=== PATIENT | male | born 1960 | race Caucasian/White ===

== ENCOUNTER 2018-02-21 20:34 | Emergency (ER) | payer OTHER ==
--- OUTSIDE RECORDS SUMMARY | 2018-02-21 20:37 | XMS REPORT ---
:1960 Author Organization e[employer]Works Care Team Providers Name Role Phone Belinda Dunham Provider Role Unavailable Allergies No Known Allergies Problems Problem Type Condition Code Onset Dates Condition Status Problem Hyperglycemia R73.9 Active Problem Crohn''s disease without K50.90 Active complication, unspecified gastrointestinal tract location Problem Encounter for counseling Z71.9 Active Problem Cervical spondylosis without M47.812 Active myelopathy Assessment Cough R05 Active Problem Post-traumatic stress disorder F43.10 Active Problem Chronic fatigue R53.82 Active Problem Lumbar sprain, initial encounter S33.5XXA Active Problem 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 Problem Acute tonsillitis, unspecified J03.90 Active etiology Problem Asymptomatic microscopic hematuria R31.21 Active Problem 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
--- OUTSIDE RECORDS SUMMARY | 2018-02-21 20:37 | XMS REPORT ---
:1960 Author Organization [employer] Care Team Providers Name Role Phone Belinda Dunham Provider Role Unavailable Allergies, Adverse Reactions, Alerts Substance Reaction Event Type Phenergan hives Drug Allergy Levaquin stops breathing Drug Allergy Keflex rash Drug Allergy Bactrim DS rash Drug Allergy Problems Problem Type Condition Code Onset Dates Condition Status Problem Hyperglycemia R73.9 Active Problem Crohn''s disease without K50.90 Active complication, unspecified gastrointestinal tract location Problem Encounter for counseling Z71.9 Active Problem Cervical spondylosis without M47.812 Active myelopathy Assessment Wheezing R06.2 Active Problem Post-traumatic stress disorder F43.10 Active Assessment Bronchitis J40 Active Problem Chronic fatigue R53.82 Active Problem [...] Problem Generalized anxiety disorder F41.1 Active Medications Medication Code Code Instructions Start End Date Status Dosage System Date Bromfed DM [facility] 02011964453 30-2-10 MG/5ML September Active 10 ml as Orally every 6 2017 needed hrs ProAir [facility] 01234149799 108 (90 Base) Apr 28, Active 2 puffs as RespiClick MCG/ACT 2014 needed Inhalation q 4-6 h prn Ventolin HFA [facility] 91537485285 108 (90 Base) September Active 2 puffs MCG/ACT 2017 Inhalation TID X 5 days Aspirin 81 ND 99791661243 81 MG Orally September Active 1 tablet Once a day 2016 Protonix ND 66994807004 40 MG Orally Active 1 tablet Once a day Bluejacket [facility] 27048163094 10-325 MG Apr 29, Active 1 tablet as Orally TID-prn 2013 needed pain Albuterol [facility] 50610130641 108 (90 Base) Apr 29, Active 1 puff Sulfate HFA MCG/ACT 2014 Inhalation every 6 hrs Losartan ND 23533590343 50 MG Orally August Active 1 tablet Potassium Once a day 2017 Albuterol [facility] 14019031882 (2.5 MG/3ML) September Active 3 ml as Sulfate 0.083% 2017 needed Inhalation Three times a day Clonazepam [facility] 11411302431 2 MG Orally BID Apr 28, Active 1 tablet 2014 Creon [facility] 98888103986 30973-71171 Active 1 capsule UNIT Orally TID Azithromycin ND 34898694483 250 MG Orally September Active 2 tablets Once a day 2017 on the first day, then 1 tablet daily for 4 days Nebulizer [facility] 76380210577 - September Active as directed 2017 Results No Known Results Summary Purpose eClinicalWorks Submission
--- OUTSIDE RECORDS SUMMARY | 2018-02-21 20:37 | XMS REPORT ---
:1960 Author Organization [employer]Works Care Team Providers Name Role Phone Belinda Dunahm Provider Role Unavailable Allergies, Adverse Reactions, Alerts Substance Reaction Event Type Phenergan hives Drug Allergy Levaquin stops breathing Drug Allergy Keflex rash Drug Allergy Bactrim DS rash Drug Allergy Problems Problem Type Condition Code Onset Dates Condition Status Problem Essential (primary) hypertension I10 Active Assessment Chronic fatigue R53.82 Active Problem Generalized anxiety disorder F41.1 Active Assessment Essential (primary) hypertension I10 Active Problem Hyperglycemia R73.9 Active Problem Crohn''s disease without K50.90 Active complication, unspecified gastrointestinal tract location Problem Encounter for counseling Z71.9 Active Problem Cervical spondylosis without M47.812 Active myelopathy Problem Post-traumatic stress disorder F43.10 Active Assessment Chronic pain syndrome G89.4 Active Assessment Crohn''s disease without K50.90 Active complication, unspecified gastrointestinal tract location Problem Chronic fatigue R53.82 Active Assessment Post-traumatic stress disorder F43.10 Active Problem Lumbar sprain, initial encounter S33.5XXA [...] Acute upper respiratory infection J06.9 Active Problem Abnormal blood sugar R73.09 Active Medications Medication Code Code Instructions Start End Date Status Dosage System Date Losartan ND 24362892916 50 MG Orally August Active 1 tablet Potassium Once a day 2017 ProAir [facility] 16305025512 108 (90 Base) Apr 28, Active 2 puffs as RespiClick MCG/ACT 2014 needed Inhalation q 4-6 h prn MetFORMIN HCl [facility] 16036114266 500 MG Orally Feb 24August Inactive 1 tablet ER Once a day 2015 with evening meal Protonix [facility] 29550207035 40 MG Orally Active 1 tablet Once a day Clonazepam [facility] 47043138683 2 MG Orally BID Apr 28, Active 1 tablet 2014 [place] 2001 78447905613 1.2 GM Orally Apr 28August Inactive 4 tablets Once a day x 8 2014 weeks Aspirin 81 [facility] 88044517332 81 MG Orally September Active 1 tablet Once a day 2016 Albuterol [facility] 92987100510 108 (90 Base) Apr 29, Active 1 puff Sulfate HFA MCG/ACT 2014 Inhalation every 6 hrs [place] [facility] 80189917417 10-325 MG Apr 29, Active 1 tablet Orally TID-prn 2013 as needed pain Creon [facility] 06550436397 00206-34501 Active 1 capsule UNIT Orally TID Coreg [facility] 88446117974 25 MG Orally August Inactive 1 tablet BID 2017 Results No Known Results Summary Purpose eClinicalWorks Submission
--- OUTSIDE RECORDS SUMMARY | 2018-02-21 20:38 | XMS REPORT ---
:1960 [facility] Providers Name Role Phone Belinda Dunham Provider Role Unavailable Allergies, Adverse Reactions, Alerts Substance Reaction Event Type Phenergan hives Drug Allergy Levaquin stops breathing Drug Allergy Keflex rash Drug Allergy Bactrim DS rash Drug Allergy Problems Problem Type Condition Code Onset Dates Condition Status Assessment Crohn''s disease of both small and K50.80 Active large intestine without complication Problem Essential (primary) hypertension I10 Active Assessment Panic disorder without agoraphobia F41.0 Active Problem Generalized anxiety disorder F41.1 Active Assessment Generalized anxiety disorder F41.1 Active Problem Hyperglycemia R73.9 Active Problem Crohn''s disease without K50.90 Active complication, unspecified gastrointestinal tract location Problem Encounter for counseling Z71.9 Active Problem Cervical spondylosis without M47.812 Active myelopathy Problem Post-traumatic stress disorder F43.10 Active Assessment Chronic pain syndrome G89.4 Active Problem Chronic fatigue R53.82 Active Assessment 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 Problem Lumbar sprain, initial encounter S33.5XXA [...] Medications Medication Code Code Instructions Start End Status Dosage System Date Date Albuterol [facility] 34002201729 108 (90 Base) Apr 29, Active 1 puff Sulfate HFA MCG/ACT 2014 Inhalation every 6 hrs Clonazepam [facility] 93711488795 2 MG Orally BID Apr 28, Active 1 tablet 2015 Ventolin HFA [facility] 69041071788 108 (90 Base) September Active 2 puffs MCG/ACT 2017 Inhalation TID X 5 days [place] [facility] 45254415240 7.5-325 MG Apr 29, Active 1 tablet as Orally TID-prn 2013 needed pain ProAir [facility] 77814009999 108 (90 Base) Apr 28, Active 2 puffs as RespiClick MCG/ACT 2014 needed Inhalation q 4-6 h prn Creon [facility] 04883130487 13752-82103 UNIT Jul 17, Active take by Orally 2018 mouth 1 with each meal capsule 3 times a day as directed Carvedilol [facility] 32962209285 25 MG Orally BID Active take 1 tablet by mouth twice a day Protonix [facility] 45192381245 40 MG Orally Active 1 tablet Once a day Aspirin 81 [facility] 03179416436 81 MG Orally September Active 1 tablet Once a day 2016 Results No Known Results Summary Purpose eClinicalWorks Submission
--- OUTSIDE RECORDS SUMMARY | 2018-02-21 20:38 | XMS REPORT ---
[...] myelopathy Problem Post-traumatic stress disorder F43.10 Active Problem [...]
[2018-02-21] MEDS ORDERED: HYDROCODONE/APAP 7.5/325 MG TAB ONE (21:50)
[2018-02-21 21:55] LABS: Urine Blood 2+ (NEG); Urine Glucose NEGATIVE (NEG); Urine Protein NEGATIVE (NEG); Urine Specific Gravity <1.005 (1.005-1.030); Urine pH 5.5 (5.0-7.0)
[2018-02-21] MEDS ORDERED: AZITHROMYCIN 250 MG TAB ONE (21:59)
[2018-02-21] MEDS ORDERED: NA CHLORIDE 0.9% 500 ML ONE (22:18)
[2018-02-21 22:28] LABS: Urine Bacteria <20 /HPF (NONE SEEN); Urine Culture Reflex Order NOT NEEDED; Urine RBC NONE SEEN /HPF (NONE SEEN)
[2018-02-21 22:32] LABS: Absolute Lymphocytes (CBC) 1.3 K/uL (0.7-4.9); Absolute Monocytes 1.2 K/uL (0.1-1.3); Absolute Neutrophil 9.8 K/uL (1.8-8.0); Basophils % 0.3 % (0-1.3); Eosinophils % 0.3 % (0-4.4); Lymphocytes % 10.4 % (15.3-44.8); MCH 30.9 pg (27.0-35.0); MCV 90.1 fL (80-100); MPV 9.3 fL (7.6-11.3); Monocytes % 9.9 % (3.3-12.3); RBC Red Blood Cell Count 4.88 M/uL (4.33-5.43)
[2018-02-21 22:49] LABS: Albumin 3.8 g/dL (3.4-5.0); Bilirubin Total 1.1 mg/dL (0.2-1.0); Protein, Total 7.2 g/dL (6.4-8.2)
--- NOTE | 2018-02-21 23:24 | ER ---
Nurse's Notes [facility] Name: Alfredo Escobar Age: 57 yrs Sex: Male : 1960 Arrival Date: 02/21/2018 Time: 20:36 Bed 30 Private MD: Kayode Sam Diagnosis: Acute tonsillitis-strep positive;Fever, unspecified;Low back pain;Contusion of back wall of thorax Presentation: 02/21 20:45 Presenting complaint: Patient states: Body aches, fatigue, malaise, headaches and aj increased urination since yesterday. Patient also fell and hit left flank on leg of wheelchair when he attempted to place himself in a wheelchair in the lobby without asking for assistance. Patient drove himself and minor child to ER. Transition of care: patient was not received from another setting of care. Onset of symptoms was February 20, 2018. Risk Assessment: Do you want to hurt yourself or someone else? Patient reports no desire to harm self or others. Initial Sepsis Screen: Does the patient meet any 2 criteria? No. Patient's initial sepsis screen is negative. Does the patient have a suspected source of infection? No. Patient's initial sepsis screen is negative. Note Charge nurse notified of patient fall. Abrasions noted to left flank. Care prior to arrival: None. 20:45 Method Of Arrival: Wheelchair aj 20:45 Acuity: BUCKY 3 aj Triage Assessment: 20:50 Headache History: The patient has had previous headaches. General: Appears in no aj apparent distress. comfortable, Behavior is calm, cooperative, appropriate for age. Pain: Complains of pain in entire body. Neuro: Level of Consciousness is awake, alert, obeys commands, Oriented to person, place, time, situation, Appropriate for age. Respiratory: Airway is patent Respiratory effort is even, unlabored, Respiratory pattern is regular, symmetrical. GI: Abdomen is non-distended, obese, Reports nausea. Derm: Skin is intact, is healthy with good turgor, Skin is pink, warm \T\ dry. normal. Injury Description: Abrasion sustained to posterior aspect of left lateral abdomen. 23:48 Pain: Also complains of no other associated symptoms. mg2 Historical: - Allergies: 20:50 Iodine; aj 20:50 Keflex; aj 20:50 Latex, Natural Rubber; aj 20:50 Levaquin; aj 20:50 Toradol; aj 20:50 Vancomycin; aj 20:50 Bactrim; aj 20:50 promethazine HCl; aj - PMHx: 20:50 Crohn's; Pancreatitis; aj - Immunization history:: Adult Immunizations up to date. - Social history:: Smoking status: Patient/guardian denies using tobacco. - Ebola Screening: : Patient negative for fever greater than or equal to 101.5 degrees Fahrenheit, and additional compatible Ebola Virus Disease symptoms Patient denies exposure to infectious person Patient denies travel to an Ebola-affected area in the 21 days before illness onset No symptoms or risks identified at this time. Screenin:36 Abuse screen: Denies threats or abuse. Denies injuries from another. Nutritional mg2 screening: No deficits noted. Tuberculosis screening: No symptoms or risk factors identified. Fall Risk Fall in past 12 months (25 points). IV access (20 points). Gait- Weak (10 pts.). Assessment: 21:36 General: Appears in no apparent distress. comfortable, Behavior is calm, cooperative. mg2 Pain: Complains of pain in whole body Pain does not radiate. Pain currently is 5 out of 10 on a pain scale. Quality of pain is described as aching, crampy, Pain began gradually, Is intermittent. Neuro: Level of Consciousness is awake, alert, obeys commands, Oriented to person, place, time, situation. Cardiovascular: Capillary refill < 3 seconds Patient's skin is warm and dry. Respiratory: Airway is patent Respiratory effort is even, unlabored, Respiratory pattern is regular, symmetrical. GI: Abdomen is non-distended. : Reports urinary frequency, since today. EENT: No signs and/or symptoms were reported regarding the EENT system. Derm: Skin is intact, Skin is pink, warm \T\ dry. normal. Musculoskeletal: Circulation, motion, and sensation intact. 22:00 Reassessment: Patient appears in no apparent distress at this time. Patient and/or mg2 family updated on plan of care and expected duration. Pain level reassessed. Patient is alert, oriented x 3, equal unlabored respirations, skin warm/dry/pink. 23:04 Reassessment: Patient appears in no apparent distress at this time. Patient and/or mg2 family updated on plan of care and expected duration. Pain level reassessed. Patient is alert, oriented x 3, equal unlabored respirations, skin warm/dry/pink. Vital Signs: 20:50 BP 130 / 79; Pulse 88; Resp 16; Temp 99.7; Pulse Ox 97% on R/A; Weight 77.11 kg; Height aj 5 ft. 10 in. (177.80 cm); 22:00 BP 123 / 81; Pulse 70; Resp 18; Pulse Ox 100% on R/A; Pain 5/10; mg2 23:04 BP 137 / 83; Pulse 81; Resp 18; Pulse Ox 100% on R/A; Pain 0/10; mg2 20:50 Body Mass Index 24.39 (77.11 kg, 177.80 cm) ED Course: 20:36 Patient arrived in ED. am2 20:36 Kayode Sam DO is Private Physician. am2 20:41 Kirit Crespo, MARY is Primary Nurse. mg2 20:48 Triage completed. aj 20:48 Pal Ferreira MD is Attending Physician. mack 20:50 Arm band placed on left wrist. Patient placed in an exam room. aj 21:36 No provider procedures requiring assistance completed. Inserted saline lock: 20 gauge mg2 in right antecubital area, using aseptic technique. Blood collected. 21:38 Patient has correct armband on for positive identification. Bed in low position. Call mg2 light in reach. Side rails up X 1. Pulse ox on. NIBP on. Door closed. Warm blanket given. 22:[address] nj 22:33 CT Chest Abdomen Pelvis W/O Contrast In Process Unspecified. EDMS 22:33 CT completed. Patient tolerated procedure well. Patient moved back from [place]. nj 23:23 Kayode Sam DO is Referral Physician. mack 23:47 IV discontinued, intact, bleeding controlled, No redness/swelling at site. Pressure mg2 dressing applied. Dressings: dry dressing done on the back. Administered Medications: 21:51 Drug: [place] (7.5 mg-325 mg) 1 tabs Route: PO; mg2 23:04 Follow up: Response: No adverse reaction; Marked relief of symptoms mg2 21:59 Drug: Zithromax 500 mg Route: PO; mg2 23:03 Follow up: Response: No adverse reaction mg2 22:24 Drug: NS 0.9% 500 ml Route: IV; Rate: bolus; Site: right antecubital; mg2 23:29 Follow up: Response: No adverse reaction; IV Status: Completed infusion mg2 Outcome: 23:23 Discharge ordered by . mack 23:48 Discharged to home ambulatory, with family. mg2 23:48 Condition: stable 23:48 Discharge instructions given to patient, Instructed on discharge instructions, follow up and referral plans. medication usage, Demonstrated understanding of instructions, follow-up care, medications, Prescriptions given X 2. 02/22 00:03 Patient left the ED. mg2 Signatures: Dispatcher [employer] Sarah Duncan, RN RN Pal Tinoco MD MD cha Jordan, Nathan nj Moreno, Amanda amKirit Chopra RN RN mg2
--- NOTE | 2018-02-21 23:24 | EDPHYS ---
Physician Documentation [facility] Name: Alfredo Escobar Age: 57 yrs Sex: Male : 1960 Arrival Date: 02/21/2018 Time: 20:36 Bed 30 Private MD: Kayode Sam ED Physician Pal Ferreira HPI: 02/21 21:41 This 57 yrs old Male presents to ER via Wheelchair with complaints of mack Headache, Dizziness. 21:41 The patient complains of pain to the forehead, left frontal area and right frontal mack area. The patient describes the headache as aching. Onset: The symptoms/episode began/occurred 1 day(s) ago. Historical: - Allergies: 20:50 Iodine; aj 20:50 Keflex; aj 20:50 Latex, Natural Rubber; aj 20:50 Levaquin; aj 20:50 Toradol; aj 20:50 Vancomycin; aj 20:50 Bactrim; aj 20:50 promethazine HCl; aj - PMHx: 20:50 Crohn's; Pancreatitis; aj - Immunization history:: Adult Immunizations up to date. - Social history:: Smoking status: Patient/guardian denies using tobacco. - Ebola Screening: : Patient negative for fever greater than or equal to 101.5 degrees Fahrenheit, and additional compatible Ebola Virus Disease symptoms Patient denies exposure to infectious person Patient denies travel to an Ebola-affected area in the 21 days before illness onset No symptoms or risks identified at this time. ROS: 21:42 Constitutional: Negative for fever, chills, and weight loss, Eyes: Negative for injury, mack pain, redness, and discharge, Neck: Negative for injury, pain, and swelling, Cardiovascular: Negative for chest pain, palpitations, and edema, Abdomen/GI: Negative for abdominal pain, nausea, vomiting, diarrhea, and constipation, Back: Negative for injury and pain, : Negative for injury, bleeding, discharge, and swelling, MS/Extremity: Negative for injury and deformity, Skin: Negative for injury, rash, and discoloration, Neuro: Negative for headache, weakness, numbness, tingling, and seizure, Psych: Negative for depression, anxiety, suicide ideation, homicidal ideation, and hallucinations, Allergy/Immunology: Negative for hives, rash, and allergies, Endocrine: Negative for neck swelling, polydipsia, polyuria, polyphagia, and marked weight changes, Hematologic/Lymphatic: Negative for swollen nodes, abnormal bleeding, and unusual bruising. 21:42 ENT: Positive for sore throat. 21:42 Back: Positive for decreased range of motion, pain with movement, of the left low back and left mid back. Exam: 21:42 Constitutional: This is a well developed, well nourished patient who is awake, alert, mack and in no acute distress. Head/Face: Normocephalic, atraumatic. Eyes: Pupils equal round and reactive to light, extra-ocular motions intact. Lids and lashes normal. Conjunctiva and sclera are non-icteric and not injected. Cornea within normal limits. Periorbital areas with no swelling, redness, or edema. ENT: Nares patent. No nasal discharge, no septal abnormalities noted. Tympanic membranes are normal and external auditory canals are clear. Oropharynx with no redness, swelling, or masses, exudates, or evidence of obstruction, uvula midline. Mucous membranes moist. Neck: Trachea midline, no thyromegaly or masses palpated, and no cervical lymphadenopathy. Supple, full range of motion without nuchal rigidity, or vertebral point tenderness. No Meningismus. Chest/axilla: Normal chest wall appearance and motion. Nontender with no deformity. No lesions are appreciated. Cardiovascular: Regular rate and rhythm with a normal S1 and S2. No gallops, murmurs, or rubs. Normal PMI, no JVD. No pulse deficits. Respiratory: Lungs have equal breath sounds bilaterally, clear to auscultation and percussion. No rales, rhonchi or wheezes noted. No increased work of breathing, no retractions or nasal flaring. Abdomen/GI: Soft, non-tender, with normal bowel sounds. No distension or tympany. No guarding or rebound. No evidence of tenderness throughout. Male : Normal genitalia with no discharge or lesions. Skin: Warm, dry with normal turgor. Normal color with no rashes, no lesions, and no evidence of cellulitis. MS/ Extremity: Pulses equal, no cyanosis. Neurovascular intact. Full, normal range of motion. Neuro: Awake and alert, GCS 15, oriented to person, place, time, and situation. Cranial nerves II-XII grossly intact. Motor strength 5/5 in all extremities. Sensory grossly intact. Cerebellar exam normal. Normal gait. Psych: Awake, alert, with orientation to person, place and time. Behavior, mood, and affect are within normal limits. 21:42 Back: pain, that is mild, that is moderate, ROM is painful, normal spinal alignment noted, CVA tenderness, that is mild, is noted on the left. Vital Signs: 20:50 BP 130 / 79; Pulse 88; Resp 16; Temp 99.7; Pulse Ox 97% on R/A; Weight 77.11 kg; Height aj 5 ft. 10 in. (177.80 cm); 22:00 BP 123 / 81; Pulse 70; Resp 18; Pulse Ox 100% on R/A; Pain 5/10; mg2 23:04 BP 137 / 83; Pulse 81; Resp 18; Pulse Ox 100% on R/A; Pain 0/10; mg2 20:50 Body Mass Index 24.39 (77.11 kg, 177.80 cm) MDM: 20:48 Patient medically screened. [facility] 21:43 Data reviewed: vital signs, nurses notes, lab test result(s), radiologic studies, plain mack films. 02/21 21:41 Order name: Rapid Strep; Complete Time: 22:49 [facility] 02/21 21:41 Order name: Rapid Strep [facility] 02/21 21:46 Order name: Influenza Screen (a \T\ B); Complete Time: 22:49 [facility] 02/21 21:50 Order name: Urine Microscopic Only; Complete Time: 22:49 [facility] 02/21 21:51 Order name: Urine Dipstick--Ancillary (enter results); Complete Time: 22:00 ri 02/21 22:07 Order name: CBC with Diff; Complete Time: 22:49 [facility] 02/21 21:41 Order name: Urine Dipstick-Ancillary (obtain specimen); Complete Time: 21:51 [facility] 02/21 21:50 Order name: CT Chest Abdomen Pelvis W/O Contrast [facility] 02/21 22:07 Order name: Comprehensive Metabolic Panel; Complete Time: 22:49 [facility] Administered Medications: 21:51 Drug: [place] (7.5 mg-325 mg) 1 tabs Route: PO; mg2 23:04 Follow up: Response: No adverse reaction; Marked relief of symptoms mg2 21:59 Drug: Zithromax 500 mg Route: PO; mg2 23:03 Follow up: Response: No adverse reaction mg2 22:24 Drug: NS 0.9% 500 ml Route: IV; Rate: bolus; Site: right antecubital; mg2 23:29 Follow up: Response: No adverse reaction; IV Status: Completed infusion mg2 Disposition: 02/21/18 23:23 Discharged to Home. Impression: Acute tonsillitis - strep positive, Fever, unspecified, Low back pain, Contusion of back wall of thorax. - Condition is Stable. - Discharge Instructions: Back Pain, Adult, Musculoskeletal Pain, Tonsillitis, Tonsillitis, Snww-nd-Lrvy, Back Injury Prevention, Rjau-zw-Hgho, Back Pain, Adult, Ozej-xw-Yngx. - Prescriptions for Tylenol- Codeine #3 300-30 mg Oral Tablet - take 2 tablets by ORAL route every 6 hours As needed; 20 tablet. Zithromax 500 mg Oral Tablet - take 1 tablet by ORAL route once daily for 5 days; 5 tablet. - Medication Reconciliation Form, Thank You Letter, Antibiotic Education, Prescription Opioid Use form. - Follow up: Kayode Sam; When: 2 - 3 days; Reason: Recheck today's complaints, Continuance of care, Re-evaluation by your physician. - Problem is new. - Symptoms have improved. Signatures: Dispatcher [employer] EDMS Sarah Ahuja RN RN aj Anderson, Corey, MD MD cha Gardose, Michele, RN RN mg2 Corrections: (The following items were deleted from the chart) 22:52 21:41 Chest Pa And Lat (2 Views)+RAD.RAD.BRZ ordered. EDMT EDMS 22:52 21:41 Lumbar Spine 3 Views+RAD.RAD.BRZ ordered. [facility] EDMS 23:24 23:23 02/21/2018 23:23 Discharged to Home. Impression: Acute tonsillitis - strep mack positive; Fever, unspecified; Low back pain. Condition is Stable. Discharge Instructions: Back Pain, Adult, Musculoskeletal Pain, Tonsillitis, Tonsillitis, Cnco-oa-Vduu, Back Injury Prevention, Nmte-av-Acxs, Back Pain, Adult, Mgts-kt-Dqhu. Prescriptions for Tylenol-Codeine #3 300-30 mg Oral Tablet - take 2 tablets by ORAL route every 6 hours As needed; 20 tablet, Zithromax 500 mg Oral Tablet - take 1 tablet by ORAL route once daily for 5 days; 5 tablet. and Forms are Medication Reconciliation Form, Thank You Letter, Antibiotic Education, Prescription Opioid Use. Follow up: Kayode Sam; When: 2 - 3 days; Reason: Recheck today's complaints, Continuance of care, Re-evaluation by your physician. Problem is new. Symptoms have improved. [facility] 02/22 00:03 02/21 23:24 02/21/2018 23:23 Discharged to Home. Impression: Acute tonsillitis - strep mg2 positive; Fever, unspecified; Low back pain; Contusion of back wall of thorax. Condition is Stable. Discharge Instructions: Back Pain, Adult, Musculoskeletal Pain, Tonsillitis, Tonsillitis, Zfjr-fh-Xuvv, Back Injury Prevention, Atzu-xs-Mddd, Back Pain, Adult, Bhlk-al-Olla. Prescriptions for Tylenol-Codeine #3 300-30 mg Oral Tablet - take 2 tablets by ORAL route every 6 hours As needed; 20 tablet, Zithromax 500 mg Oral Tablet - take 1 tablet by ORAL route once daily for 5 days; 5 tablet. and Forms are Medication Reconciliation Form, Thank You Letter, Antibiotic Education, Prescription Opioid Use. Follow up: Kayode Sam; When: 2 - 3 days; Reason: Recheck today's complaints, Continuance of care, Re-evaluation by your physician. Problem is new. Symptoms have improved. [facility]
[2018-02-22 00:50] VITALS: TEMP 99.7
[2018-02-22 00:52] VITALS: O2SAT 100
[2018-02-22 00:53] VITALS: BP 137/83
--- NOTE | 2018-02-22 08:08 | RAD REPORT ---
EXAM DESCRIPTION: CT - Chest Abd Pelvis Wo Con - 02/22/2018 5:38 am CLINICAL HISTORY: Chest and abdomen pain. COUGH COMPARISON: CT CHEST ABD PELVIS WO CONT dated 06/24/2008; Chest Pa And Lat (2 Views) dated 09/12/2017 TECHNIQUE: A limited noncontrast study is submitted. All CT scans are performed using dose optimization technique as appropriate and may include automated exposure control or mA/KV adjustment according to patient size. FINDINGS: The lungs are clear.No pleural or pericardial effusion.No intrathoracic adenopathy. The liver, spleen, pancreas, adrenal glands and kidneys are within normal limits. Small benign left r enal cyst. No bowel obstruction, free air, free fluid or abscess. Normal appendix. Small fat containing umbilica l hernia. No pathologic lymphadenopathy in the abdomen or pelvis. No worrisome osseous finding. IMPRESSION: Unremarkable examination.
== END 2018-02-22 00:03 | disposition home or self-care (01) ==
LOC: ER 20:34
DX: J03.00 Acute streptococcal tonsillitis, unspecified (principal); M54.5 Low back pain; S20.229A Contusion of unspecified back wall of thorax, initial encounter; Z88.1 Allergy status to other antibiotic agents; Z88.3 Allergy status to other anti-infective agents; Z88.5 Allergy status to narcotic agent; Z88.8 Allergy status to other drugs, medicaments and biological substances; Z91.040 Latex allergy status
CPT/HCPCS: 36415; 71250; 74176; 80053; 81003; 81015; 85025; 87081; 87804; 96360; 99284

== ENCOUNTER 2018-05-11 16:24 | Inpatient (IN) | payer OTHER ==
--- OUTSIDE RECORDS SUMMARY | 2018-05-11 16:27 | XMS REPORT ---
[...] Date Status Dosage System Date Losartan ND 95128338424 50 MG Orally August Active 1 tablet Potassium Once a day 2017 ProAir [facility] 55443527228 108 (90 Base) Apr 28, Active 2 puffs as RespiClick MCG/ACT 2014 needed Inhalation q 4-6 h prn MetFORMIN HCl [facility] 63204931766 500 MG Orally Feb 24August Inactive 1 tablet ER Once a day 2015 with evening meal Protonix [facility] 24080524884 40 MG Orally Active 1 tablet Once a day Clonazepam [facility] 35532524742 2 MG Orally BID Apr 28, Active 1 tablet 2014 Lialda [facility] 43036445160 1.2 GM Orally Apr 28August Inactive 4 tablets Once a day x 8 2014 weeks Aspirin 81 [facility] 61187956666 81 MG Orally September Active 1 tablet Once a day 2016 Albuterol [facility] 48321786704 108 (90 Base) Apr 29, Active 1 puff Sulfate HFA MCG/ACT 2014 Inhalation every 6 hrs [place] [facility] 52066420684 10-325 MG Apr 29, Active 1 tablet Orally TID-prn 2013 as needed pain Creon [facility] 06898264975 71020-62358 Active 1 capsule UNIT Orally TID Coreg [facility] 44751346384 25 MG Orally August Inactive 1 tablet BID 2017 Results No Known Results Summary Purpose eClinicalWorks Submission
--- OUTSIDE RECORDS SUMMARY | 2018-05-11 16:27 | XMS REPORT ---
:1960 Author Organization [facility] Care Team Providers Name Role Phone Belinda [...] End Status Dosage System Date Date Albuterol [facility] 93024173833 108 (90 Base) Apr 29, Active 1 puff Sulfate HFA MCG/ACT 2014 Inhalation every 6 hrs Clonazepam [facility] 71435449160 2 MG Orally BID Apr 28, Active 1 tablet 2015 Ventolin HFA [facility] 46199772731 108 (90 Base) September Active 2 puffs MCG/ACT 2017 Inhalation TID X 5 days [place] [facility] 70586523780 7.5-325 MG Apr 29, Active 1 tablet as Orally TID-prn 2013 needed pain ProAir [facility] 67599229628 108 (90 Base) Apr 28, Active 2 puffs as RespiClick MCG/ACT 2014 needed Inhalation q 4-6 h prn Creon [facility] 15710859657 62092-54331 UNIT Jul 17, Active take by Orally 2018 mouth 1 with each meal capsule 3 times a day as directed Carvedilol [facility] 52375083554 25 MG Orally BID Active take 1 tablet by mouth twice a day Protonix [facility] 13260242395 40 MG Orally Active 1 tablet Once a day Aspirin 81 [facility] 21064318200 81 MG Orally September Active 1 tablet Once a day 2016 Results No Known Results Summary Purpose eClinicalWorks Submission
--- OUTSIDE RECORDS SUMMARY | 2018-05-11 16:27 | XMS REPORT ---
[...] Date Status Dosage System Date Bromfed DM [facility] 54341144800 30-2-10 MG/5ML September Active 10 ml as Orally every 6 2017 needed hrs ProAir [facility] 81850908788 108 (90 Base) Apr 28, Active 2 puffs as RespiClick MCG/ACT 2014 needed Inhalation q 4-6 h prn Ventolin HFA [facility] 36683230965 108 (90 Base) September Active 2 puffs MCG/ACT 2017 Inhalation TID X 5 days Aspirin 81 ND 99228984649 81 MG Orally September Active 1 tablet Once a day 2016 Protonix ND 75500166453 40 MG Orally Active 1 tablet Once a day [place] [facility] 82180633787 10-325 MG Apr 29, Active 1 tablet as Orally TID-prn 2013 needed pain Albuterol [facility] 97903570270 108 (90 Base) Apr 29, Active 1 puff Sulfate HFA MCG/ACT 2014 Inhalation every 6 hrs Losartan ND 87207721993 50 MG Orally August Active 1 tablet Potassium Once a day 2017 Albuterol [facility] 57620171376 (2.5 MG/3ML) September Active 3 ml as Sulfate 0.083% 2017 needed Inhalation Three times a day Clonazepam [facility] 80281605893 2 MG Orally BID Apr 28, Active 1 tablet 2014 Creon [facility] 33535441116 94510-30980 Active 1 capsule UNIT Orally TID Azithromycin ND 00282570843 250 MG Orally September Active 2 tablets Once a day 2017 on the first day, then 1 tablet daily for 4 days Nebulizer [facility] 29628229147 - September Active as directed 2017 Results No Known Results Summary Purpose eClinicalWorks Submission
[2018-05-11 17:13] LABS: Absolute Lymphocytes (CBC) 0.6 K/uL (0.7-4.9); Absolute Monocytes 0.9 K/uL (0.1-1.3); Absolute Neutrophil 9.3 K/uL (1.8-8.0); Basophils % 0.2 % (0-1.3); Eosinophils % 0.2 % (0-4.4); Hematocrit 47.3 % (39.6-49.0); Lymphocytes % 5.5 % (15.3-44.8); MCH 31.1 pg (27.0-35.0); MCV 89.2 fL (80-100); MPV 8.1 fL (7.6-11.3)
[2018-05-11] MEDS ORDERED: MORPHINE 2 MG/ML SYR ONE (17:18)
[2018-05-11] MEDS ORDERED: ONDANSETRON 4 MG/2 ML VIAL ONE (17:18)
[2018-05-11] MEDS ORDERED: NA CHLORIDE 0.9% 1,000 ML ONE (17:18)
[2018-05-11] MEDS ORDERED: FAMOTIDINE 20 MG/2 ML VIAL IV ONE (17:24)
[2018-05-11 17:30] LABS: Albumin 3.7 g/dL (3.4-5.0); Bilirubin Direct 0.2 mg/dL (0-0.2); Bilirubin Total 0.8 mg/dL (0.2-1.0); Potassium 3.9 mmol/L (3.5-5.1); Protein, Total 7.3 g/dL (6.4-8.2)
[2018-05-11 17:44] LABS: Blood Morphology Comment NOT SEEN (NOT SEEN); Platelet Estimate ADEQ; Urine White Blood Cell Casts OK
--- NOTE | 2018-05-11 18:07 | RAD REPORT ---
EXAM DESCRIPTION: CT - Abdomen Pelvis Wo Contrast - 05/11/2018 5:57 pm CLINICAL HISTORY: Abdominal pain, nausea and vomiting, history of Crohn's and pancreatitis, history of hernia repair COMPARISON: CT 2011 TECHNIQUE: Axial [address] imaging of the abdomen and pelvis was performed without IV contrast. No IV contrast was given because of allergy, abnormal renal function, patient refusal or physician re quest. No oral contrast given. All CT scans are performed using dose optimization technique as appropriate and may include automated exposure control or mA/KV adjustment according to patient size. FINDINGS: No suspicious findings in the lung bases. The liver, spleen and pancreas show no suspicious findings on non-contrast imaging. Gallbladder is co ntracted. No biliary tree dilatation. No hydronephrosis or suspicious renal mass. No significant adrenal finding. Isodense renal masses an d pyelonephritis cannot be excluded in the absence of IV contrast. The urinary bladder is without sig nificant finding. No prostate gland or seminal vesicle abnormality. Adrenal glands are unremarkable. Stomach is dilated and contains a large amount of retained fluid. No gastric outlet obstruction. No w all thickening or mass. Duodenum is distended but not dilated. Proximal small bowel loops are dilated . A specific point of transition is not identifiable. Distal small bowel is decompressed. Air and sto ol are present in nondilated colon. Diverticulosis present without diverticulitis. No mesenteric mass or lymphadenopathy. No free air, free fluid or pneumatosis. No hernia, mass or bulky lymphadenopathy. No suspicious bony findings. IMPRESSION: Non-contrast enhanced CT abdomen and pelvis imaging show no significant or suspicious fi nding. Very pronounced ileus in gastro paresis versus partial small bowel obstruction. A specific mass or point of transition is not confirmed. Patient could have adhesion or internal yuki ia. Stomach is dilated by retained fluid. This is secondary to the small bowel process.
--- NOTE | 2018-05-11 18:32 | EDPHYS ---
Physician Documentation [facility] Name: Alfredo Escobar Age: 57 yrs Sex: Male : 1960 Arrival Date: 05/11/2018 Time: 16:28 Bed 27 Private MD: Kayode Sam ED Physician Дмитрий Puente HPI: 05/11 17:09 This 57 yrs old Male presents to ER via Ambulatory with complaints of kdr Abdominal Pain, Nausea/Vomiting. 17:09 The patient presents to the emergency department with nausea, vomiting, that is kdr intermittent, abdominal pain, of the abdomen diffusely, described as achy, constant, dull, steady. Onset: The symptoms/episode began/occurred last night. Possible causes: unknown, Took one bite of chilli then three hours later he began to have intense abdominal pain and n/v. The symptoms are aggravated by movement, pressure. Associated signs and symptoms: The patient has no apparent associated signs or symptoms, Pertinent positives: abdominal pain, nausea, vomiting. Severity of symptoms: At their worst the symptoms were moderate severe incapacitating just prior to arrival, in the emergency department the symptoms have improved mildly. The patient has not experienced similar symptoms in the past, Has had a history of chronic pancreatitis but this does not seem like those. The patient has not recently seen a physician. Historical: - Allergies: 16:35 Bactrim; hb 16:35 Iodine; hb 16:35 Keflex; hb 16:35 Latex, Natural Rubber; hb 16:35 Levaquin; hb 16:35 promethazine HCl; hb 16:35 Toradol; hb 16:35 Vancomycin; hb - PMHx: 16:35 Crohn's; Pancreatitis; PTSD; hb - Immunization history:: Adult Immunizations up to date. - Social history:: Smoking status: Patient/guardian denies using tobacco. - Ebola Screening: : No symptoms or risks identified at this time. ROS: 17:09 Constitutional: Negative for fever, chills, and weight loss, Eyes: Negative for injury, kdr pain, redness, and discharge, ENT: Negative for injury, pain, and discharge, Neck: Negative for injury, pain, and swelling, Cardiovascular: Negative for chest pain, palpitations, and edema, Respiratory: Negative for shortness of breath, cough, wheezing, and pleuritic chest pain, Back: Negative for injury and pain, : Negative for injury, bleeding, discharge, and swelling, MS/Extremity: Negative for injury and deformity, Skin: Negative for injury, rash, and discoloration, Neuro: Negative for headache, weakness, numbness, tingling, and seizure activity. Psych: Negative for depression, anxiety, suicide ideation, homicidal ideation, and hallucinations, Allergy/Immunology: Negative for hives, rash, and allergies, Endocrine: Negative for neck swelling, polydipsia, polyuria, polyphagia, and marked weight changes, Hematologic/Lymphatic: Negative for swollen nodes, abnormal bleeding, and unusual bruising. 17:09 Abdomen/GI: Positive for abdominal pain, nausea and vomiting, abdominal distension, anorexia, Negative for black/tarry stool, rectal pain, rectal bleeding, bowel incontinence, flatulence. Exam: 17:09 Constitutional: This is a well developed, well nourished patient who is awake, alert, kdr and in no acute distress. Head/Face: Normocephalic, atraumatic. Eyes: Pupils equal round and reactive to light, extra-ocular motions intact. Lids and lashes normal. Conjunctiva and sclera are non-icteric and not injected. Cornea within normal limits. Periorbital areas with no swelling, redness, or edema. Neck: Trachea midline, no thyromegaly or masses palpated, and no cervical lymphadenopathy. Supple, full range of motion without nuchal rigidity, or vertebral point tenderness. No Meningismus. Chest/axilla: Normal chest wall appearance and motion. Nontender with no deformity. No lesions are appreciated. Cardiovascular: Regular rate and rhythm with a normal S1 and S2. No gallops, murmurs, or rubs. Normal PMI, no JVD. No pulse deficits. Respiratory: Lungs have equal breath sounds bilaterally, clear to auscultation and percussion. No rales, rhonchi or wheezes noted. No increased work of breathing, no retractions or nasal flaring. Back: No spinal tenderness. No costovertebral tenderness. Full range of motion. Skin: Warm, dry with normal turgor. Normal color with no rashes, no lesions, and no evidence of cellulitis. MS/ Extremity: Pulses equal, no cyanosis. Neurovascular intact. Full, normal range of motion. Neuro: Awake and alert, GCS 15, oriented to person, place, time, and situation. Cranial nerves II-XII grossly intact. Motor strength 5/5 in all extremities. Sensory grossly intact. Cerebellar exam normal. Normal gait. Psych: Awake, alert, with orientation to person, place and time. Behavior, mood, and affect are within normal limits. 17:09 Abdomen/GI: Inspection: abdomen appears normal, distension, that is mild, Bowel sounds: active, all quadrants, diminished, Palpation: soft, mild abdominal tenderness, in all quadrants, mass, is not appreciated, rebound tenderness, is not appreciated. Vital Signs: 16:34 BP 119 / 90; Pulse 100; Resp 16; Temp 99.7; Pulse Ox 98% on R/A; Pain 8/10; hb 17:30 BP 132 / 72; Pulse 84; Resp 16; Pulse Ox 97% on R/A; kr2 18:30 BP 139 / 79; Pulse 85; Resp 17; Pulse Ox 97% on R/A; kr2 19:54 BP 139 / 79; Pulse 87; Resp 17; Temp 99.3; Pulse Ox 98% on R/A; kr2 MDM: 17:09 Data reviewed: vital signs, nurses notes, lab test result(s), radiologic studies. kdr 18:32 Patient medically screened. [facility] 05/11 16:56 Order name: Basic Metabolic Panel; Complete Time: 18:22 [facility] 05/11 16:56 Order name: CBC with Diff; Complete Time: 18:22 [facility] 05/11 16:56 Order name: Creatinine for Radiology; Complete Time: 18:22 [facility] 05/11 16:56 Order name: Hepatic Function; Complete Time: 18:22 [facility] 05/11 16:56 Order name: Lipase; Complete Time: 18:22 [facility] 05/11 17:22 Order name: CBC Smear Scan; Complete Time: 18:22 [facility] 05/11 19:38 Order name: CBC with Automated Diff [facility] 05/11 19:38 Order name: CBC with Automated Diff [facility] 05/11 19:38 Order name: Comprehensive Metabolic Panel EDMS 05/11 19:38 Order name: Comprehensive Metabolic Panel ED[facility] 05/11 19:38 Order name: Lipase EDMS 05/11 19:38 Order name: Lipase EDMS 05/11 19:38 Order name: Magnesium EDMS 05/11 19:38 Order name: Magnesium EDMS 05/11 17:48 Order name: Abdomen EDMS 05/11 19:38 Order name: CONS Physician Consult EDMS 05/11 19:38 Order name: NPO EDMS 05/11 19:38 Order name: Phosphorus EDMS 05/11 19:38 Order name: Phosphorus EDMS 05/11 19:38 Order name: Protime (+INR) EDMS 05/11 19:38 Order name: Protime (+INR) EDMS 05/11 19:38 Order name: PTT, Activated Partial Thromb EDMS 05/11 19:38 Order name: PTT, Activated Partial Thromb ED[facility] 05/11 16:56 Order name: IV Saline Lock; Complete Time: 17:08 kdr 05/11 16:56 Order name: Labs collected and sent; Complete Time: 17:08 kdr Administered Medications: 17:15 Drug: Zofran 4 mg Route: IVP; Site: right antecubital; kr2 17:19 Follow up: Response: No adverse reaction; Nausea is decreased kr2 17:15 Drug: NS 0.9% 1000 ml Route: IV; Rate: 1 bolus; Site: right forearm; kr2 19:15 Follow up: Response: No adverse reaction; IV Status: Completed infusion kr2 17:19 Drug: Pepcid 20 mg Route: IVP; Site: right antecubital; kr2 19:16 Follow up: Response: No adverse reaction kr2 18:49 Drug: morphine 2 mg Route: IVP; Site: right antecubital; kr2 19:16 Follow up: Response: No adverse reaction; Pain is decreased kr2 18:49 Drug: Flagyl 500 mg Volume: 100 ml; Route: IVPB; Rate: 200 ml/hr; Infused Over: 30 kr2 mins; Site: right antecubital; 19:13 Follow up: Response: No adverse reaction; IV Status: Completed infusion kr2 19:14 Drug: Cipro 400 mg Volume: 200 ml; Route: IVPB; Infused Over: 60 mins; Site: right kr2 antecubital; 20:26 Follow up: Response: No adverse reaction; IV Status: Completed infusion kr2 Disposition: 05/11/18 18:32 Hospitalization ordered by Dayron Mejias for Observation. Preliminary diagnosis are Abdominal and pelvic pain, Partial small bowel obstruction. - Bed requested for Telemetry/MedSurg (observation). - Status is Observation. kr2 - Condition is Fair. - Problem is new. - Symptoms have improved. UTI on Admission? No Signatures: Dispatcher [employer] [facility] Vanessa Marina RN RN Дмитрий Puente MD MD [facility] Dorothea Petty, RN RN Abigail Pierre, RN RN kr2 Corrections: (The following items were deleted from the chart) 17:48 17:09 Abdomen Pelvis W Con+CT.RAD.BRZ ordered. EDCA EDCA 19:54 18:32 Hospitalization Ordered by Dayron Mejias MD for Observation. Preliminary diagnosis is Abdominal and pelvic pain; Partial small bowel obstruction. Bed requested for Telemetry/MedSurg (observation). Status is Observation. Condition is Fair. Problem is new. Symptoms have improved. UTI on Admission? No. kdr 20:31 19:54 05/11/2018 18:32 Hospitalization Ordered by Dayron Mejias MD for Observation. kr2 Preliminary diagnosis is Abdominal and pelvic pain; Partial small bowel obstruction. Bed requested for Telemetry/MedSurg (observation). Status is Observation. Condition is Fair. Problem is new. Symptoms have improved. UTI on Admission? No. mw
--- NOTE | 2018-05-11 18:32 | ER ---
Nurse's Notes [facility] Name: Alfredo Escobar Age: 57 yrs Sex: Male : 1960 Arrival Date: 05/11/2018 Time: 16:28 Bed 27 Private MD: Kayode Sam Diagnosis: Abdominal and pelvic pain;Partial small bowel obstruction Presentation: 05/11 16:32 Presenting complaint: Abdominal pain and swelling, and N/V since last night. Not hb tolerating liquids. Transition of care: patient was not received from another setting of care. Onset of symptoms was May 10, 2018. Risk Assessment: Do you want to hurt yourself or someone else? Patient reports no desire to harm self or others. Care prior to arrival: None. 16:32 Method Of Arrival: Ambulatory hb 16:32 Acuity: BUCKY 3 hb 16:40 Initial Sepsis Screen: Does the patient meet any 2 criteria? Does the patient have a kr2 suspected source of infection? No. Patient's initial sepsis screen is negative. Historical: - Allergies: 16:35 Bactrim; hb 16:35 Iodine; hb 16:35 Keflex; hb 16:35 Latex, Natural Rubber; hb 16:35 Levaquin; hb 16:35 promethazine HCl; hb 16:35 Toradol; hb 16:35 Vancomycin; hb - PMHx: 16:35 Crohn's; Pancreatitis; PTSD; hb - Immunization history:: Adult Immunizations up to date. - Social history:: Smoking status: Patient/guardian denies using tobacco. - Ebola Screening: : No symptoms or risks identified at this time. Screenin:40 Abuse screen: Denies threats or abuse. Denies injuries from another. Nutritional kr2 screening: No deficits noted. Tuberculosis screening: No symptoms or risk factors identified. Fall Risk None identified. Assessment: 16:40 General: Appears in no apparent distress. uncomfortable, well groomed, well developed, kr2 well nourished, Behavior is cooperative, anxious. Pain: Complains of pain in abdomen Pain does not radiate. Pain currently is 7 out of 10 on a pain scale. Quality of pain is described as aching, pressure, sharp, Pain began 1 day ago. Is continuous, Alleviated by nothing. Neuro: Level of Consciousness is awake, alert, obeys commands, Oriented to person, place, time, situation. Cardiovascular: Capillary refill < 3 seconds in bilateral fingers Patient's skin is warm and dry. Respiratory: Airway is patent Respiratory effort is even, unlabored, Respiratory pattern is regular, symmetrical. GI: Abdomen is distended, Bowel sounds present X 4 quads. Abdomen is tender to palpation in right lower quadrant and left lower quadrant Abd is rigid X 4 quads. Reports nausea, vomiting, since yesterday. : Reports occasional sharp pain from abdomen that shoots to penis. EENT: Nares are clear bilaterally Oral mucosa is dry. Derm: Skin is intact, is healthy with good turgor, Skin is pink, warm \T\ dry. pale. Musculoskeletal: Circulation, motion, and sensation intact. 17:48 Reassessment: Morphine on hold until patient's daughter arrives to warehouse picker small child kr2 that is with patient. Patient states that the nausea has subsided and he feels better. Taken to CT by technology intern. 18:30 Reassessment: Patient appears in no apparent distress at this time. Patient and/or kr2 family updated on plan of care and expected duration. Pain level reassessed. Patient is alert, oriented x 3, equal unlabored respirations, skin warm/dry/pink. Patient states feeling better. 19:54 Reassessment: Patient appears in no apparent distress at this time. Patient and/or kr2 family updated on plan of care and expected duration. Pain level reassessed. Patient is alert, oriented x 3, equal unlabored respirations, skin warm/dry/pink. No nausea or vomiting since Zofran and Pepcid. States pain is decreased since Morphine. Vital Signs: 16:34 BP 119 / 90; Pulse 100; Resp 16; Temp 99.7; Pulse Ox 98% on R/A; Pain 8/10; hb 17:30 BP 132 / 72; Pulse 84; Resp 16; Pulse Ox 97% on R/A; kr2 18:30 BP 139 / 79; Pulse 85; Resp 17; Pulse Ox 97% on R/A; kr2 19:54 BP 139 / 79; Pulse 87; Resp 17; Temp 99.3; Pulse Ox 98% on R/A; kr2 ED Course: 16:28 Patient arrived in ED. mr 16:28 Kayode Sam DO is Private Physician. mr 16:34 Triage completed. hb 16:34 Arm band placed on left wrist. hb 16:37 Abigail Pierre, MARY is Primary Nurse. kr2 16:40 Patient has correct armband on for positive identification. Bed in low position. Call kr2 light in reach. Side rails up X2. Pulse ox on. NIBP on. Door closed. Warm blanket given. Head of bed elevated. 16:51 Дмитрий Puente MD is Attending Physician. kdr 17:05 Inserted saline lock: 20 gauge in right antecubital area, using aseptic technique. kr2 Blood collected. 17:57 Abdomen In Process Unspecified. EDMS 17:57 CT completed. Patient tolerated procedure well. Patient moved back from CT. nj 18:31 Dayron Mejias MD is Hospitalizing Provider. kdr 20:30 No provider procedures requiring assistance completed. Patient admitted, IV remains in kr2 place. Administered Medications: 17:15 Drug: Zofran 4 mg Route: IVP; Site: right antecubital; kr2 17:19 Follow up: Response: No adverse reaction; Nausea is decreased kr2 17:15 Drug: NS 0.9% 1000 ml Route: IV; Rate: 1 bolus; Site: right forearm; kr2 19:15 Follow up: Response: No adverse reaction; IV Status: Completed infusion kr2 17:19 Drug: Pepcid 20 mg Route: IVP; Site: right antecubital; kr2 19:16 Follow up: Response: No adverse reaction kr2 18:49 Drug: morphine 2 mg Route: IVP; Site: right antecubital; kr2 19:16 Follow up: Response: No adverse reaction; Pain is decreased kr2 18:49 Drug: Flagyl 500 mg Volume: 100 ml; Route: IVPB; Rate: 200 ml/hr; Infused Over: 30 kr2 mins; Site: right antecubital; 19:13 Follow up: Response: No adverse reaction; IV Status: Completed infusion kr2 19:14 Drug: Cipro 400 mg Volume: 200 ml; Route: IVPB; Infused Over: 60 mins; Site: right kr2 antecubital; 20:26 Follow up: Response: No adverse reaction; IV Status: Completed infusion kr2 Outcome: 18:32 Decision to Hospitalize by Provider. kdr 20:30 Admitted to Tele accompanied by tech, via stretcher, room 405, with chart, Report kr2 called to Izzy 20:30 Condition: stable 20:30 Instructed on the need for admit, Demonstrated understanding of instructions. 20:31 Patient left the ED. kr2 Signatures: Dispatcher [employer] EDMS Дмитрий Puente MD MD kdr Rivera, Mary mr Dorothea Petty, RN RN John Hernandez Karey, RN RN kr2 Corrections: (The following items were deleted from the chart) 20:28 19:54 BP 139 / 79; Pulse 87bpm; Resp 17bpm; Pulse Ox 98% RA; kr2 kr2
[2018-05-11] MEDS ORDERED: METRONIDAZOLE 500mg IVPB 500 MG/100 ML BAG IV ONE (18:47)
[2018-05-11] MEDS ORDERED: CIPROFLOXACIN 400mg IV 400 MG/200 ML BAG IV ONE (18:47)
[2018-05-11] MEDS ORDERED: HYDROMORPHONE HCL 1 MG/ML INJ IV PRN (19:32)
[2018-05-11] MEDS ORDERED: ACETAMINOPHEN 500 MG TAB PO PRN (19:32)
[2018-05-11] MEDS ORDERED: ONDANSETRON 4 MG/2 ML VIAL IV PRN (19:32)
[2018-05-11] MEDS ORDERED: MAGNESIUM HYDROXIDE 8% 30 ML PO PRN (19:32)
[2018-05-11 21:15] VITALS: O2SAT 98
[2018-05-11] MEDS: NA CHLORIDE 0.9% 1,000 ML IV SCH (22:04)
[2018-05-11 22:10] VITALS: BMI 26.3
[2018-05-11] MEDS ORDERED: clonazePAM 1 MG TAB PO ONE (23:09)
[2018-05-11] MEDS ORDERED: HYDROCODONE/APAP 7.5/325 MG TAB PO ONE (23:10)
[2018-05-11] MEDS ORDERED: CARVEDILOL 25 MG TAB PO ONE (23:11)
[2018-05-12] MEDS: NA CHLORIDE 0.9% 1,000 ML IV SCH ×2 (05:26→17:49)
[2018-05-12 06:25] LABS: Absolute Lymphocytes (CBC) 1.5 K/uL (0.7-4.9); Absolute Monocytes 1.1 K/uL (0.1-1.3); Basophils % 0.4 % (0-1.3); Eosinophils % 0.1 % (0-4.4); Hematocrit 43.7 % (39.6-49.0); Lymphocytes % 17.6 % (15.3-44.8); MCH 31.5 pg (27.0-35.0); MCV 90.8 fL (80-100); MPV 9.4 fL (7.6-11.3); Monocytes % 12.8 % (3.3-12.3); RBC Red Blood Cell Count 4.81 M/uL (4.33-5.43)
[2018-05-12 06:34] LABS: Protime INR 1.18
[2018-05-12 06:36] LABS: Albumin 2.9 g/dL (3.4-5.0); Bilirubin Total 0.8 mg/dL (0.2-1.0); Magnesium 1.9 mg/dL (1.8-2.4); Phosphorus 2.7 mg/dL (2.5-4.9); Potassium 3.7 mmol/L (3.5-5.1); Protein, Total 6.1 g/dL (6.4-8.2)
[2018-05-12] MEDS ORDERED: KCL 20 MEQ/100 mL IVPB 20 MEQ/100 ML BAG IV SCH (09:00)
--- NOTE | 2018-05-12 09:49 | RAD REPORT ---
EXAM DESCRIPTION: RAD - Abdomen Acute Series - 05/12/2018 6:36 am CLINICAL HISTORY: Abdominal pain FINDINGS: Free air is not seen beneath the diaphragm. Lungs appear clear of acute infiltrate The stomach is mildly distended Air-filled dilated small bowel is not visualized. Air within the colon is present
[2018-05-12] MEDS: LIPASE/PROTEASE/AMYLASE CAP PO SCH ×2 (12:00→13:19)
--- NOTE | 2018-05-12 12:38 | P.PN ---
Subjective Date of Service: 05/12/18 Patient seen and examined at bedside with RN. Chart reviewed. Case discussed with general surgery. Awaiting GI recommendations at this time. Patient stated that he has passed gas along with bowel movement this morning. Review of Systems 10-point ROS is otherwise unremarkable Physical Examination - Vital Signs Temperature: 98.8 F Blood Pressure: 119/70 Pulse: 63 Respirations: 18 Pulse Ox (%): 96 - Physical Exam General: Alert, In no apparent distress HEENT: Atraumatic, PERRLA, EOMI Neck: Supple, JVD not distended Respiratory: Clear to auscultation bilaterally, Normal air movement Cardiovascular: Regular rate/rhythm, Normal S1 S2 Gastrointestinal: Normal bowel sounds, No tenderness Musculoskeletal: No tenderness Integumentary: No rashes Neurological: Normal speech, Normal tone, Normal affect Lymphatics: No axilla or inguinal lymphadenopathy - Studies Laboratory Data (last 24 hrs) 05/11/18 17:05: Creatinine 1.00 05/11/18 17:05: WBC 10.8, Hgb 16.5, Hct 47.3, Plt Count 205 05/11/18 17:05: Sodium 140, Potassium 3.9, BUN 15, Creatinine 1.00, Glucose 135 H, Total Bilirubin 0.8, AST 15, ALT 31, Alkaline Phosphatase 68, Lipase 154 Medications List Reviewed: Yes Assessment And Plan - Current Problems (Diagnosis) (1) SBO (small bowel obstruction) Current Visit: Yes Status: Acute - Plan Currently patient is improving. General surgery has been consulted who recommends GI consultation due to extensive history of Crohn's and pancreatitis. Patient currently is on NPO IV fluids and pain management. Will continue that here. Acute abdomen series is pending at this time as well. Will wait for GI recommendations at this time Discharge Plan: Home Plan to discharge in: 48 Hours - Code Status/Comfort Care Code Status Assessed: Yes Critical Care: No
[2018-05-12] MEDS: MORPHINE 2 MG/ML SYR IV PRN ×2 (13:58→20:46)
[2018-05-12] MEDS ORDERED: METHYLPREDNISOLONE 125 MG INJ IV ONE (14:40)
--- NOTE | 2018-05-12 15:04 | P.HP ---
Certification for Inpatient Patient admitted to: Inpatient With expected LOS: >2 Midnights Patient will require the following post-hospital care: None Practitioner: I am a practitioner with admitting privileges, knowledge of patient current condition, hospital course, and medical plan of care. Services: Services provided to patient in accordance with Admission requirements found in Title 42 Section 412.3 of the Code of Federal Regulations Patient History Date of Service: 05/11/18 Reason for admission: Small-bowel obstruction History of Present Illness: . Patient is a 57-year-old gentleman who came to the hospital with intractable nausea and vomiting along with abdominal pain. Patient was also having some diarrhea. He had ate some chili that his family member had made and afterwards see got sick to his stomach. He had intractable nausea and vomiting. Has a history of Crohn's disease as well as psoriatic arthritis and chronic pancreatitis. He does not really feel well and he takes a lot of pain medication. His symptoms were worsening so he came to the ER for further evaluation. In the ER, his CT scan of his abdomen and pelvis revealed a partial small-bowel obstruction. He was admitted to the hospital for further evaluation. Spoke with emergency room physician and they did not put an NG tube. Continue to monitor him closely. Allergies cephalexin monohydrate [From Keflex] Allergy (Verified 09/07/11 22:18) SWELLING iodine Allergy (Unverified 10/24/15 04:47) Unknown ketorolac Allergy (Unverified 05/13/14 13:05) Unknown ketorolac tromethamine [From Toradol] Allergy (Verified 09/07/11 22:17) SWELLING levofloxacin [From Levaquin] Allergy (Verified 09/07/11 22:17) SWELLING promethazine HCl [From Phenergan] Allergy (Verified 09/07/11 22:18) SWELLING Sulfa (Sulfonamide Antibiotics) Allergy (Unverified 05/13/14 13:05) Unknown sulfamethoxazole [From Bactrim] Allergy (Verified 09/07/11 22:18) SWELING trimethoprim [From Bactrim] Allergy (Verified 09/07/11 22:18) SWELING vancomycin Allergy (Unverified 10/24/15 04:47) Unknown Latex, [place] Allergy (Uncoded 10/24/15 04:47) Unknown levofloxacin Allergy (Uncoded 05/13/14 13:05) Unknown Home Medications: Albuterol Sulfate [Ventolin Hfa] 2 puff IH TID PRN 05/11/18 Carvedilol 25 mg PO BID 05/11/18 Hydrocodone Bit/Acetaminophen [Hydrocodon-Acetaminoph 7.5-325] 1 tab PO QID PRN 05/11/18 Lipase/Protease/Amylase [Armin Carrion 12,000 Units Capsule] 24,000 units PO TIDWM Pantoprazole [Protonix Tab*] 40 mg PO DAILY 05/11/18 clonazePAM [Clonazepam] 1 mg PO BID 05/11/18 - Past Medical/Surgical History Has patient received pneumonia vaccine in the past: No Diabetic: No -: GERD -: HTN -: chronic pancreatitis -: Crohn's -: PTSD -: Psoriatic Arthritis -: anxiety -: polyp removal -: hernia repair - Family History Father Family History: Reviewed- Non-Contributory - Social History Smoking Status: Former smoker Alcohol use: No CD- Drugs: Yes Caffeine use: Yes Place of Residence: Home Review of Systems 10-point ROS is otherwise unremarkable Physical Examination - Vital Signs Temperature: 98.8 F Blood Pressure: 119/70 Pulse: 63 Respirations: 18 Pulse Ox (%): 96 - Physical Exam General: Alert, In no apparent distress, Oriented x3 HEENT: Atraumatic, PERRLA, Mucous membr. moist/pink, EOMI, Sclerae nonicteric Neck: Supple, 2+ carotid pulse no bruit, No LAD, Without JVD or thyroid abnormality Respiratory: Clear to auscultation bilaterally, Normal air movement Cardiovascular: Regular rate/rhythm, Normal S1 S2 Gastrointestinal: Normal bowel sounds, Soft and benign, Non-distended, No rebound, No guarding, Tenderness Musculoskeletal: No clubbing, No swelling, No tenderness Integumentary: No rashes Neurological: Normal gait, Normal speech, Normal strength at 5/5 x4 extr, Normal tone, Normal affect Lymphatics: No axilla or inguinal lymphadenopathy - Studies Laboratory Data (last 24 hrs) 05/11/18 17:05: Creatinine 1.00 05/11/18 17:05: WBC 10.8, Hgb 16.5, Hct 47.3, Plt Count 205 05/11/18 17:05: Sodium 140, Potassium 3.9, BUN 15, Creatinine 1.00, Glucose 135 H, Total Bilirubin 0.8, AST 15, ALT 31, Alkaline Phosphatase 68, Lipase 154 Assessment & Plan - Problems (Diagnosis) (1) Psoriatic arthritis Current Visit: Yes Status: Acute (2) Chronic pancreatitis Current Visit: Yes Status: Acute (3) Crohn's disease Current Visit: Yes Status: Acute (4) SBO (small bowel obstruction) Current Visit: Yes Status: Acute - Plan -management per surgery; no NGT -IV hydration -IV antibiotics if fever -NPO -strict blood pressure and blood sugar control -monitor electrolytes and blood count closely -Continue meds for inflammatory disease -pain control -DVT prophylaxis Discharge Plan: Home Plan to discharge in: Greater than 2 days - Advance Directives Does patient have a Living Will: No Does patient have a Durable POA for Healthcare: No - Code Status/Comfort Care Code Status Assessed: Yes Code Status: Full Code Critical Care: No Time Spent Managing PTS Care (In Minutes): 50
[2018-05-12] MEDS: METRONIDAZOLE 500mg IVPB 500 MG/100 ML BAG IV SCH (15:58)
--- NOTE | 2018-05-12 16:06 | CON ---
Date of Consultation: 05/12/2018 Reason For Service: Abdominal pain. History Of Present Illness: This is the case of a 57 years old patient with history of Crohn disease , who came last night after his daughter brought some spicy food and spicy chili, he ate it and then an hour later he started to develop this abdominal pain. The patient diagnosed with the gastroparesi s and ileus and a surgical consult was obtained. He denies any dysuria, hematuria, hematochezia, or melena. He denies any recent traveling out of the country. Denies any family members sick at home. Allergies: CEPHALEXIN, IODINE, LATEX, LEVAQUIN, TORADOL, AND VANCOMYCIN. Past Medical History: Crohn disease and pancreatitis. Social History: He does not smoke. He does not drink alcohol. Review of Systems: Ten points otherwise unremarkable. Physical Examination: General: The patient is awake and alert. HEENT: Pupils are equal and reactive, anicteric. Neck: Supple. Chest: Clear. Abdomen: Softly distended. No guarding or rebound. Mild generalized tenderness with no peritonitis . Extremities: Good capillary refill. Imaging: CAT scan of the abdomen and pelvis interpreted by Dr. Mcdaniels as a pronounced ileus and gas troparesis versus partial small bowel obstruction. Stomach is dilated with retained fluid. Assessment: It is a 57-year-old patient, comes to us after eating a spicy chili. One hour after he got sick. He has history of Crohn disease. When they called me from ER, I discussed the case with t ER physician and explained the importance of this patient not only having a consult for Surgery, b ut also a extruder operator multiple for this gastroenterological problem. We still have that recommendation for the primary doctor, now in this case I noticed that consult was not done for a gastroenterologis t, and I believe, this patient will benefit from that to make sure there is no exacerbation of his in flammatory bowel disease triggered by this spicy food. From the surgical standpoint, no surgical int ervention planned at this moment. SHANNON/NIKUNJ Voice ID: [id number] Report ID: [id number]
[2018-05-12] MEDS: CIPROFLOXACIN 400mg IV 400 MG/200 ML BAG IV SCH (17:49)
[2018-05-12] MEDS: CARVEDILOL 25 MG TAB PO SCH (20:53)
[2018-05-13] MEDS: METRONIDAZOLE 500mg IVPB 500 MG/100 ML BAG IV SCH ×3 (00:26→11:28)
[2018-05-13] MEDS: NA CHLORIDE 0.9% 1,000 ML IV SCH ×3 (02:00→12:00)
[2018-05-13] MEDS: CIPROFLOXACIN 400mg IV 400 MG/200 ML BAG IV SCH (05:57)
[2018-05-13 06:09] LABS: Amylase Level 35 U/L (25-115); BUN Blood Urea Nitrogen 11 mg/dL (7-18); Bicarbonate 26 mmol/L (21-32); Glucose Level 128 mg/dL (74-106); Lipase 122 U/L (73-393); Magnesium 2.2 mg/dL (1.8-2.4); Potassium 4.3 mmol/L (3.5-5.1); Sodium Level 142 mmol/L (136-145)
[2018-05-13 07:49] LABS: Urine Appearance CLEAR; Urine Bilirubin NEGATIVE (NEG); Urine Blood NEGATIVE (NEG); Urine Color YELLOW; Urine Glucose TRACE (NEG); Urine Protein NEGATIVE (NEG)
[2018-05-13 07:56] LABS: Urine Microscopic Reflex NO UMIC
[2018-05-13] MEDS: CARVEDILOL 25 MG TAB PO SCH (08:28)
[2018-05-13] MEDS ORDERED: PANTOPRAZOLE 40MG TABLET PO SCH (09:00)
--- NOTE | 2018-05-13 11:22 | RAD REPORT ---
EXAM DESCRIPTION: RAD - Abdomen Acute Series - 05/13/2018 6:44 am CLINICAL HISTORY: sbo Abdominal pain COMPARISON: Abdomen Acute Series dated 05/12/2018; Chest Pa And Lat (2 Views) dated 09/12/2017; Chest Single View dated 10/24/2015; CHEST SINGLE VIEW dated 05/07/2014 FINDINGS: The lungs are grossly clear. The heart is normal in size. No subdiaphragmatic free air see n. No bowel obstruction pattern is observed. IMPRESSION: No bowel obstruction pattern is seen.
[2018-05-13 12:38] VITALS: BP 113/61; TEMP 97.5
--- NOTE | 2018-05-13 14:01 | P.SSS ---
Patient History Date of Service: 05/13/18 Reason for admission: Small-bowel obstruction History of Present Illness: Patient is a 57-year-old gentleman who came to the hospital with intractable nausea and vomiting along with abdominal pain. Patient was also having some diarrhea. He had ate some chili that his family member had made and afterwards see got sick to his stomach. He had intractable nausea and vomiting. Has a history of Crohn's disease as well as psoriatic arthritis and chronic pancreatitis. He does not really feel well and he takes a lot of pain medication. His symptoms were worsening so he came to the ER for further evaluation. In the ER, his CT scan of his abdomen and pelvis revealed a partial small-bowel obstruction. He was admitted to the hospital for further evaluation. Spoke with emergency room physician and they did not put an NG tube. Continue to monitor him closely. Allergies cephalexin monohydrate [From Keflex] Allergy (Verified 09/07/11 22:18) SWELLING iodine Allergy (Unverified 10/24/15 04:47) Unknown ketorolac Allergy (Unverified 05/13/14 13:05) Unknown ketorolac tromethamine [From Toradol] Allergy (Verified 09/07/11 22:17) SWELLING levofloxacin [From Levaquin] Allergy (Verified 09/07/11 22:17) SWELLING promethazine HCl [From Phenergan] Allergy (Verified 09/07/11 22:18) SWELLING Sulfa (Sulfonamide Antibiotics) Allergy (Unverified 05/13/14 13:05) Unknown sulfamethoxazole [From Bactrim] Allergy (Verified 09/07/11 22:18) SWELING trimethoprim [From Bactrim] Allergy (Verified 09/07/11 22:18) SWELING vancomycin Allergy (Unverified 10/24/15 04:47) Unknown Latex, Natur Allergy (Uncoded 10/24/15 04:47) Unknown levofloxacin Allergy (Uncoded 05/13/14 13:05) Unknown Home Medications: Albuterol Sulfate [Ventolin Hfa] 2 puff IH TID PRN 05/11/18 Carvedilol 25 mg PO BID 05/11/18 Hydrocodone Bit/Acetaminophen [Hydrocodon-Acetaminoph 7.5-325] 1 tab PO QID PRN 05/11/18 Lipase/Protease/Amylase [Armin Carrion 12,000 Units Capsule] 24,000 units PO TIDWM Pantoprazole [Protonix Tab*] 40 mg PO DAILY 05/11/18 clonazePAM [Clonazepam] 1 mg PO BID 05/11/18 Ciprofloxacin HCl [Cipro 500 MG Tablet] 500 mg PO BID #42 tab 05/13/18 metroNIDAZOLE [Flagyl] 500 mg PO Q8H #63 tablet 05/13/18 predniSONE [Deltasone*] 10 mg PO SEECOM #70 tab 05/13/18 - Past Medical/Surgical History Has patient received pneumonia vaccine in the past: No Diabetic: No -: GERD -: HTN -: chronic pancreatitis -: Crohn's -: PTSD -: Psoriatic Arthritis -: anxiety -: polyp removal -: hernia repair - Social History Smoking Status: Former smoker Alcohol use: No CD- Drugs: Yes Caffeine use: Yes Place of Residence: Home Review of Systems 10-point ROS is otherwise unremarkable Physical Examination - Vital Signs Temperature: 97.5 F Blood Pressure: 113/61 Pulse: 63 Respirations: 18 Pulse Ox (%): 98 - Physical Exam General: Alert, In no apparent distress HEENT: Atraumatic, PERRLA, Mucous membr. moist/pink, EOMI, Sclerae nonicteric Neck: Supple, 2+ carotid pulse no bruit, No LAD, Without JVD or thyroid abnormality Respiratory: Clear to auscultation bilaterally, Normal air movement Cardiovascular: Regular rate/rhythm, Normal S1 S2 Gastrointestinal: Normal bowel sounds, No tenderness Musculoskeletal: No tenderness Integumentary: No rashes Neurological: Normal gait, Normal speech, Normal strength at 5/5 x4 extr, Normal tone, Normal affect Lymphatics: No axilla or inguinal lymphadenopathy - Diagnosis (Problem(s)) (1) SBO (small bowel obstruction) Current Visit: Yes Status: Resolved (2) Chronic pancreatitis Current Visit: Yes Status: Chronic Qualifiers: Pancreatitis type: unspecified pancreatitis type Qualified Code(s): K86.1 - Other chronic pancreatitis (3) Crohn's disease Current Visit: Yes Status: Chronic Qualifiers: Gastrointestinal tract location: unspecified location Digestive disease complication type: unspecified complication Qualified Code(s): K50.919 - Crohn 's disease, unspecified, with unspecified complications Treatment Summary: Overall during the hospital stay patient remained stable Patient was initially admitted to the hospital for intractable nausea vomiting and was found to have possible small bowel obstruction on the CT scan. General surgery and GI was consulted. Patient was kept NPO with IV fluids here in the hospital. Patient had acute abdominal series which was negative for any small bowel obstruction. Patient does have a history of extensive pain medication usage which does cause him to have: Ileus. With his chronic condition of Crohn 's and pancreatitis patient starts having excruciating pain every time he does so. Patient was observed here for 24 hr post admission had no complications during pulseless it. Patient's diet was advanced to a clear liquid diet. Patient was able to tolerate the diet well was able to pass gas and had a bowel movement here in the hospital. At that time another abdominal series was done which was negative for small bowel obstruction. Patient denied having any nausea vomiting along with abdominal pain and thus was discharged home under stable condition with diagnosis Ileus secondary to pain medication. Patient was educated extensively on the need to use pain medication as prescribed only. Patient demonstrate understanding and thus was discharged home under stable condition - Disposition Disposition: ROUTINE DISCHARGE Condition: GOOD Activity: Ad ade
--- NOTE | 2018-05-14 09:05 | CON ---
Date of Consultation: 05/12/2018 Reason For Consultation: Small bowel obstruction with generalized abdominal pain, nausea, vomiting, fevers, chills. History Of Present Illness: The patient is a 57-year-old white male with history of Crohn disease an d chronic pancreatitis, presented with generalized abdominal pain, nausea, vomiting, fevers, chills, abdominal distention. The patient states he is in his usual state of health until approximately yest erday when he began having generalized abdominal pain upper greater than lower, abdominal distention, nausea, vomiting, fevers, chills. He notes that after that he was admitted to the hospital, but he states that he had a bowel movement yesterday, after that event his distention has gone down notably. The patient has a history of Crohn disease. He has been taking medications with his primary care raheel lee. States he has not followed up with GI due to some extenuating circumstances with his actbrenda herrera, related to GI office staff. The patient states he is remorseful about that in light to corrected if possible. Past Medical History: Significant for Crohn disease, chronic pancreatitis, hypertension, gastrointes tinal reflux disease, PTSD, psoriatic arthritis, anxiety, polyp removal, hernia repair. Medications: At home include Ventolin, carvedilol, Tylenol No. 3 Creon, Protonix, clonaze marino. Allergies: TO LEVOFLOXACIN, KEFLEX, KETOROLAC, PROMETHAZINE, SULFA MEDICATIONS, VANCOMYCIN, AND LATE X. Family History: Significant for father of pulmonary embolism. Mother of breast cancer, wh ich was to bone at the age of 49 on December 15, 1987. Brother of skin cancer, which went to his br ain. He had a male cousin with stomach cancer, name Harman Escobar Jean Pierre that the pat ient's father. His paternal uncle, Harman Escobar, of stomach cancer. Review of Systems: The patient has generalized abdominal pain, nausea, vomiting, fevers, chills, night sweats, increased abdominal girth improved since bowel movement after this event started. He denies any melena, hemat ochezia, hematemesis, coffee-ground emesis, hematuria, dysuria, polydipsia. He does have some events of decreased mood and anxiety. No history of PTSD. No back pain, muscle aches, joint aches, chest pain, shortness of breath, seizure, or syncope. Physical Examination: VITAL SIGNS: The patient is 5 feet 3 inches, 183 pounds, BMI 26.3 kg/m2. Temperature 98.8 degrees F ahrenheit, pulse 63, respirations 18, blood pressure 119/70, O2 saturation 96%. GENERAL: He is an overweight male, lying in bed, in no acute distress. HEENT: Normocephalic, atraumatic. Anicteric. Pupils equal, round, and reactive to light. Extraocu lar movement are intact. Oropharynx is clear. Neck: Supple. No masses. Respirations: Clear to auscultation bilaterally. Cardiac: Regular rate and rhythm. Gastrointestinal: Positive bowel sounds. Soft. Mild distention. Obese. Mildly obese. Mild gener alized tenderness, but no peritoneal or Lopes sign. No rebound. No guarding. Extremities: No clubbing, cyanosis, or edema. 2+ pulses. Neuro: Alert and oriented X3, grossly nonfocal. 5/5 motor sensation intact to light touch. Laboratory Data: The patient has a white count of 8.7 down from 10.8 yesterday, hemoglobin of 15.2, hematocrit 44, MCV of 91, platelet count of 168, polys of 69% down from 86% yesterday, lymphocytes 18 %, monocytes 13%. PT 14.0, INR of 1.2, PTT 29.2. Sodium 139, potassium 3.7, chloride 108, bicarb 25 , BUN 13, creatinine of 0.9, glucose 131, calcium 7.5, phosphorus 2.7, magnesium 1.9. Total bilirubi n 0.8, AST 24, ALT 36, alkaline phosphatase 56, total protein 6.1, albumin 2.9, lipase 206 [address] CT abdomen and pelvis revealed a dilated stomach with a large amount of fluid, proximal duodenum a nd proximal small bowel dilated with specific transition point identified, but the distal small bowel is decompressed as his colon, diverticulosis noted in the colon. Impression: 1.Small bowel obstruction. CT of abdomen and pelvis reveals small bowel obstruction in the mid smal l bowel, may possibly jejunum, though not clear. Generalized abdominal pain. Increased abdominal gi rth, especially upper versus lower abdomen. The patient has before all this started occur ring with nausea, vomiting, fevers, chills, night sweats. He has a history of Crohn's, diagnosed ___ years ago. Minimal Crohn's medication. In light of his history of psoriatic arthritis, he w ill probably benefit from Stelara therapy. Had a bowel movement yesterday morning and decreased abdo kathi girth has felt improved. Since that time, he has avoided NG tube placement by Surgery at this time; however, he may need it during this admission. 2.History of Crohn disease, pancreatitis and other as per above. Recommendation: 1.Serial KUB acute abdominal series now since CT was done yesterday. NG tube to low inte rmittent wall suction. We will hold on surgery advice at this time; however, we will place if his sy mptoms worsen. 2.Keep the patient n.p.o. 3.Surgery following. 4.Continue IV fluids, IV antibiotics. Start IV fluids, IV antibiotics. 5.Also start IV steroids in this patient. Start Solu-Medrol drip as well approximately to 40 mg per day over 24 hours. JILL/NIKUNJ Voice ID: [id number] Report ID: [id number]
== END 2018-05-13 14:54 | disposition home or self-care (01) | DRG 389 ==
LOC: ER 16:24 → ERHOLD 19:59 → 4TH 20:23
PROVIDERS: ADMIT Hospitalist; ATTEND Family Medicine
DX: K56.609 Unspecified intestinal obstruction, unspecified as to partial versus complete obstruction (principal); K86.1 Other chronic pancreatitis; K50.919 Crohn's disease, unspecified, with unspecified complications; K21.9 Gastro-esophageal reflux disease without esophagitis; L40.50 Arthropathic psoriasis, unspecified; F41.9 Anxiety disorder, unspecified; Z87.891 Personal history of nicotine dependence; Z88.8 Allergy status to other drugs, medicaments and biological substances
CPT/HCPCS: 36415; 74022; 74176; 80048; 80053; 80076; 81003; 82150; 82962; 83690; 83735; 84100; 85025; 85610; 85730; 86301; 87086; 87088; 96361; 96365; 96367; 96375; 99285; J0744; J1170; J2270; J2405; J2930; J7030

== ENCOUNTER 2018-06-16 04:26 | Emergency (ER) | payer OTHER ==
--- OUTSIDE RECORDS SUMMARY | 2018-06-16 04:28 | XMS REPORT ---
[...] Date Status Dosage System Date Losartan ND 16918388043 50 MG Orally August Active 1 tablet Potassium Once a day 2017 ProAir [facility] 27625658559 108 (90 Base) Apr 28, Active 2 puffs as RespiClick MCG/ACT 2014 needed Inhalation q 4-6 h prn MetFORMIN HCl [facility] 32053870820 500 MG Orally Feb 24August Inactive 1 tablet ER Once a day 2015 with evening meal Protonix [facility] 64641926286 40 MG Orally Active 1 tablet Once a day Clonazepam [facility] 85829921582 2 MG Orally BID Apr 28, Active 1 tablet 2014 [place] [facility] 72591953766 1.2 GM Orally Apr 28August Inactive 4 tablets Once a day x 8 2014 weeks Aspirin 81 [facility] 51390091137 81 MG Orally September Active 1 tablet Once a day 2016 Albuterol [facility] 88412449473 108 (90 Base) Apr 29, Active 1 puff Sulfate HFA MCG/ACT 2014 Inhalation every 6 hrs [place] [facility] 03652405146 10-325 MG Apr 29, Active 1 tablet Orally TID-prn 2013 as needed pain Creon [facility] 43120248321 65993-82109 Active 1 capsule UNIT Orally TID Coreg [facility] 25529455845 25 MG Orally August Inactive 1 tablet BID 2017 Results No Known Results Summary Purpose eClinicalWorks Submission
--- OUTSIDE RECORDS SUMMARY | 2018-06-16 04:28 | XMS REPORT ---
[...] Status Dosage System Date Bromfed DM [facility] 39862636100 30-2-10 MG/5ML September Active 10 ml as Orally every 6 2017 needed hrs ProAir [facility] 88919672315 108 (90 Base) Apr 28, Active 2 puffs as RespiClick MCG/ACT 2014 needed Inhalation q 4-6 h prn Ventolin HFA [facility] 11286486733 108 (90 Base) September Active 2 puffs MCG/ACT 2017 Inhalation TID X 5 days Aspirin 81 ND 08931592024 81 MG Orally September Active 1 tablet Once a day 2016 Protonix ND 95578202902 40 MG Orally Active 1 tablet Once a day [place] [facility] 08350062053 10-325 MG Apr 29, Active 1 tablet as Orally TID-prn 2013 needed pain Albuterol [facility] 94378684935 108 (90 Base) Apr 29, Active 1 puff Sulfate HFA MCG/ACT 2014 Inhalation every 6 hrs Losartan ND 99852986292 50 MG Orally August Active 1 tablet Potassium Once a day 2017 Albuterol [facility] 46610501516 (2.5 MG/3ML) September Active 3 ml as Sulfate 0.083% 2017 needed Inhalation Three times a day Clonazepam [facility] 89577000606 2 MG Orally BID Apr 28, Active 1 tablet 2014 Creon [facility] 87707440393 40986-21167 Active 1 capsule UNIT Orally TID Azithromycin ND 26057637921 250 MG Orally September Active 2 tablets Once a day 2017 on the first day, then 1 tablet daily for 4 days Nebulizer [facility] 72404648758 - September Active as directed 2017 Results No Known Results Summary Purpose eClinicalWorks Submission
--- OUTSIDE RECORDS SUMMARY | 2018-06-16 04:29 | XMS REPORT ---
:1960 [facility] Providers Name [...] End Status Dosage System Date Date Albuterol [facility] 39551788017 108 (90 Base) Apr 29, Active 1 puff Sulfate HFA MCG/ACT 2014 Inhalation every 6 hrs Clonazepam [facility] 87533753150 2 MG Orally BID Apr 28, Active 1 tablet 2015 Ventolin HFA [facility] 37194140719 108 (90 Base) September Active 2 puffs MCG/ACT 2017 Inhalation TID X 5 days [place] [facility] 02714057070 7.5-325 MG Apr 29, Active 1 tablet as Orally TID-prn 2013 needed pain ProAir [facility] 44717950775 108 (90 Base) Apr 28, Active 2 puffs as RespiClick MCG/ACT 2014 needed Inhalation q 4-6 h prn Creon [facility] 91760860498 40524-00864 UNIT Jul 17, Active take by Orally 2018 mouth 1 with each meal capsule 3 times a day as directed Carvedilol [facility] 79899031340 25 MG Orally BID Active take 1 tablet by mouth twice a day Protonix [facility] 73365667794 40 MG Orally Active 1 tablet Once a day Aspirin 81 [facility] 44146256964 81 MG Orally September Active 1 tablet Once a day 2016 Results No Known Results Summary Purpose eClinicalWorks Submission
[2018-06-16] MEDS ORDERED: FAMOTIDINE 20 MG/2 ML VIAL IV ONE (05:32)
[2018-06-16] MEDS ORDERED: MORPHINE 4 MG/ML SYR ONE (05:32)
[2018-06-16] MEDS ORDERED: ONDANSETRON 4 MG/2 ML VIAL ONE (05:32)
[2018-06-16] MEDS ORDERED: NA CHLORIDE 0.9% 2,000 ML ONE (05:32)
[2018-06-16] MEDS ORDERED: METRONIDAZOLE 500mg IVPB 500 MG/100 ML BAG IV ONE (05:32)
[2018-06-16 05:41] LABS: Absolute Lymphocytes (CBC) 2.9 K/uL (0.7-4.9); Absolute Monocytes 0.5 K/uL (0.1-1.3); Absolute Neutrophil 3.9 K/uL (1.8-8.0); Basophils % 0.5 % (0-1.3); Eosinophils % 1.2 % (0-4.4); Hematocrit 44.4 % (39.6-49.0); Lymphocytes % 39.3 % (15.3-44.8); MPV 8.7 fL (7.6-11.3); Monocytes % 6.3 % (3.3-12.3); RBC Red Blood Cell Count 4.88 M/uL (4.33-5.43)
[2018-06-16 05:50] LABS: Protime INR 1.11
[2018-06-16 06:14] LABS: ALT/SGPT 28 U/L (12-78); AST/SGOT 13 U/L (15-37); Albumin 3.9 g/dL (3.4-5.0); Alkaline Phosphatase 57 U/L (45-117); BUN Blood Urea Nitrogen 11 mg/dL (7-18); Bicarbonate 28 mmol/L (21-32); Bilirubin Direct 0.2 mg/dL (0-0.2); Bilirubin Total 0.7 mg/dL (0.2-1.0); Glucose Level 81 mg/dL (74-106); Lipase 152 U/L (73-393); Magnesium 2.2 mg/dL (1.8-2.4); NT PRO-BNP 38 pg/mL (<125); Potassium 3.9 mmol/L (3.5-5.1); Protein, Total 7.2 g/dL (6.4-8.2); Sodium Level 141 mmol/L (136-145); Troponin (Emerg Dept Use Only) < 0.02 ng/mL (0.0-0.045)
--- NOTE | 2018-06-16 06:36 | EKG ---
Test Date: 2018-06-16 Test Time: 05:30:02 Acupuncture Physician: ISAEL MEASUREMENT RESULTS: Intervals: Rate: 56 [place]: 160 QRSD: 84 QT: 414 QTc: 399 [place]: P: 65 [place]: 160 QRS: 49 T: 45 INTERPRETIVE STATEMENTS: Sinus bradycardia Otherwise normal ECG Compared to ECG 10/24/2015 03:09:15 Sinus rhythm no longer present Electronically Signed On 06-16-18 06:35:41 PIPELINE SUPERINTENDENT by José Miguel Gleason
--- NOTE | 2018-06-16 07:42 | EDPHYS ---
Physician Documentation [facility] Name: Alfredo Escobar Age: 57 yrs Sex: Male : 1960 Arrival Date: 06/16/2018 Time: 04:27 Bed 15 Private MD: ED Physician Pal Ferreira HPI: 06/16 05:06 This 57 yrs old Male presents to ER via Wheelchair with complaints of mack Abdominal Pain, Rectal Bleeding. 05:06 The patient presents to the emergency department with bleeding from the rectum/anus. mack Onset: The symptoms/episode began/occurred 10 day(s) ago. Context: the patient has no known special context relating to the rectal area complaint(s). Modifying factors: The symptoms are alleviated by nothing, The symptoms are aggravated by movement. Associate signs and symptoms: Pertinent positives: abdominal pain in the right upper quadrant, left upper quadrant, right lower quadrant and left lower quadrant. The patient has experienced similar episodes in the past, a few times. Historical: - Allergies: 04:51 Bactrim; ca1 04:51 Keflex; ca1 04:51 Iodine; ca1 04:51 Latex, Natural Rubber; ca1 04:51 promethazine HCl; ca1 04:51 Levaquin; ca1 04:51 Toradol; ca1 04:51 Vancomycin; ca1 - PMHx: 04:51 Crohn's; PTSD; Pancreatitis; ca1 - PSHx: 04:51 Hernia repair; ca1 - Immunization history:: Flu vaccine is not up to date. - Social history:: Smoking status: Patient uses tobacco products. - Ebola Screening: : Patient negative for fever greater than or equal to 101.5 degrees Fahrenheit, and additional compatible Ebola Virus Disease symptoms Patient denies exposure to infectious person Patient denies travel to an Ebola-affected area in the 21 days before illness onset. - Family history:: not pertinent. ROS: 05:06 Constitutional: Negative for fever, chills, and weight loss, Eyes: Negative for injury, mack pain, redness, and discharge, ENT: Negative for injury, pain, and discharge, Neck: Negative for injury, pain, and swelling, Cardiovascular: Negative for chest pain, palpitations, and edema, Respiratory: Negative for shortness of breath, cough, wheezing, and pleuritic chest pain, Back: Negative for injury and pain, : Negative for injury, bleeding, discharge, and swelling, MS/Extremity: Negative for injury and deformity, Skin: Negative for injury, rash, and discoloration, Neuro: Negative for headache, weakness, numbness, tingling, and seizure, Psych: Negative for depression, anxiety, suicide ideation, homicidal ideation, and hallucinations, Allergy/Immunology: Negative for hives, rash, and allergies, Endocrine: Negative for neck swelling, polydipsia, polyuria, polyphagia, and marked weight changes, Hematologic/Lymphatic: Negative for swollen nodes, abnormal bleeding, and unusual bruising. 05:06 Abdomen/GI: Positive for abdominal pain, nausea, abdominal cramps, abdominal distension, rectal pain, rectal bleeding. Exam: 07:38 Constitutional: This is a well developed, well nourished patient who is awake, alert, mack and in no acute distress. Head/Face: Normocephalic, atraumatic. Eyes: Pupils equal round and reactive to light, extra-ocular motions intact. Lids and lashes normal. Conjunctiva and sclera are non-icteric and not injected. Cornea within normal limits. Periorbital areas with no swelling, redness, or edema. ENT: Nares patent. No nasal discharge, no septal abnormalities noted. Tympanic membranes are normal and external auditory canals are clear. Oropharynx with no redness, swelling, or masses, exudates, or evidence of obstruction, uvula midline. Mucous membranes moist. Neck: Trachea midline, no thyromegaly or masses palpated, and no cervical lymphadenopathy. Supple, full range of motion without nuchal rigidity, or vertebral point tenderness. No Meningismus. Chest/axilla: Normal chest wall appearance and motion. Nontender with no deformity. No lesions are appreciated. Cardiovascular: Regular rate and rhythm with a normal S1 and S2. No gallops, murmurs, or rubs. Normal PMI, no JVD. No pulse deficits. Respiratory: Lungs have equal breath sounds bilaterally, clear to auscultation and percussion. No rales, rhonchi or wheezes noted. No increased work of breathing, no retractions or nasal flaring. Back: No spinal tenderness. No costovertebral tenderness. Full range of motion. Male : Normal genitalia with no discharge or lesions. Skin: Warm, dry with normal turgor. Normal color with no rashes, no lesions, and no evidence of cellulitis. MS/ Extremity: Pulses equal, no cyanosis. Neurovascular intact. Full, normal range of motion. Neuro: Awake and alert, GCS 15, oriented to person, place, time, and situation. Cranial nerves II-XII grossly intact. Motor strength 5/5 in all extremities. Sensory grossly intact. Cerebellar exam normal. Normal gait. Psych: Awake, alert, with orientation to person, place and time. Behavior, mood, and affect are within normal limits. 07:38 Abdomen/GI: Inspection: distension, Bowel sounds: normal, Palpation: mild abdominal tenderness, in all quadrants, Rectal exam: is unremarkable, Liver: no appreciated palpable abnormalities, Hernia: not appreciated. Vital Signs: 04:51 BP 137 / 83; Pulse 66; Resp 18; Temp 98.9; Pulse Ox 100% on R/A; Weight 104.33 kg; ca1 Height 5 ft. 10 in. (177.80 cm); Pain 10/10; 06:05 BP 134 / 77; Pulse 56; Resp 16; Pulse Ox 99% on R/A; jb4 06:52 BP 127 / 70; Pulse 63; Resp 14; Pulse Ox 99% on R/A; jb4 07:47 BP 121 / 64; Pulse 65; Resp 18; Pulse Ox 99% on R/A; em 04:51 Body Mass Index 33.00 (104.33 kg, 177.80 cm) ca1 MDM: 04:41 Patient medically screened. [facility] 07:38 Data reviewed: vital signs, nurses notes, EMS record, [facility] records, EKG, [facility] radiologic studies, CT scan, plain films. 06/16 05:02 Order name: Basic Metabolic Panel [facility] 06/16 05:02 Order name: CBC with Diff [facility] 06/16 05:02 Order name: LFT's [facility] 06/16 05:02 Order name: Magnesium [facility] 06/16 05:02 Order name: NT PRO-BNP [facility] 06/16 05:02 Order name: PT-INR [facility] 06/16 05:02 Order name: Troponin (emerg Dept Use Only) [facility] 06/16 05:02 Order name: Lipase; Complete Time: 06:36 [facility] 06/16 05:02 Order name: Urine Culture [facility] 06/16 05:02 Order name: Type And Screen; Complete Time: 06:36 [facility] 06/16 05:03 Order name: Basic Metabolic Panel; Complete Time: 06:36 EDMS 06/16 05:03 Order name: CBC with Automated Diff; Complete Time: 06:06 EDMS 06/16 05:03 Order name: Liver (Hepatic) Function; Complete Time: 06:36 EDMS 06/16 05:03 Order name: Magnesium; Complete Time: 06:36 EDMS 06/16 05:02 Order name: XRAY Chest (1 view) [facility] 06/16 05:02 Order name: EKG; Complete Time: 05:04 [facility] 06/16 05:02 Order name: Cardiac monitoring; Complete Time: 05:59 [facility] 06/16 05:02 Order name: EKG - Nurse/Tech; Complete Time: 05:59 [facility] 06/16 05:02 Order name: IV Saline Lock; Complete Time: 05:16 [facility] 06/16 05:03 Order name: NT PRO-BNP; Complete Time: 06:36 EDMS 06/16 05:03 Order name: Protime (+INR); Complete Time: 06:06 EDMS 06/16 05:03 Order name: Troponin (Emerg Dept Use Only); Complete Time: 06:36 EDMS 06/16 06:31 Order name: Abdomen EDMA 06/16 05:02 Order name: Labs collected and sent; Complete Time: 05:16 [facility] 06/16 05:02 Order name: O2 Per Protocol; Complete Time: 05:16 [facility] 06/16 05:02 Order name: O2 Sat Monitoring; Complete Time: 05:16 [facility] 06/16 05:02 Order name: Urine Dipstick-Ancillary (obtain specimen); Complete Time: 05:58 [facility] Administered Medications: 05:46 Drug: NS 0.9% 1000 ml Route: IV; Rate: 1 bolus; Site: right antecubital; jb4 06:24 Follow up: Response: No adverse reaction; IV Status: Completed infusion jb4 05:47 Drug: Zofran 4 mg Route: IVP; Site: right antecubital; jb4 06:20 Follow up: Response: No adverse reaction; Nausea is decreased jb4 05:49 Drug: morphine 2 mg Route: IVP; Site: right antecubital; jb4 06:20 Follow up: Response: No adverse reaction; Pain is decreased jb4 05:50 Drug: Flagyl 500 mg Volume: 100 ml; Route: IVPB; Rate: 200 ml/hr; Infused Over: 30 jb4 mins; Site: right antecubital; 06:20 Follow up: Response: No adverse reaction; IV Status: Completed infusion jb4 05:55 Not Given (Patient Refused): Pepcid 20 mg IVP once jb4 06:50 Drug: NS 0.9% 1000 ml Route: IV; Rate: 125 ml/hr; Site: right antecubital; jb4 Disposition: 06/16/18 07:41 Discharged to Home. Impression: Abdominal tenderness. - Condition is Stable. - Discharge Instructions: Abdominal Pain, Adult, Abdominal Pain, Adult, [id number]. - Prescriptions for Bentyl 20 mg Oral Tablet - take 1 tablet by ORAL route every 6 hours As needed; 20 tablet. Pepcid 20 mg Oral Tablet - take 1 tablet by ORAL route every 12 hours for 10 days; 20 tablet. Zofran 4 mg Oral Tablet - take 1 tablet by ORAL route every 12 hours As needed; 20 tablet. - Medication Reconciliation Form, Thank You Letter, Antibiotic Education, Prescription Opioid Use form. - Follow up: Private Physician; When: 2 - 3 days; Reason: Recheck today's complaints, Continuance of care, Re-evaluation by your physician. Follow up: Nirmala Concepcion MD; When: 2 - 3 days; Reason: Recheck today's complaints, Re-evaluation by your physician. - Problem is new. - Symptoms have improved. Signatures: Dispatcher [employer] [facility] Pal Ferreira MD MD cha Munoz, Edgar, ACCOUNTING SPECIALIST ACCOUNTING SPECIALIST em Jose Luis Corea RN RN jb4 Chelo Nolasco RN RN ca1 Corrections: (The following items were deleted from the chart) 06:31 05:04 Abdomen Pelvis W Con+CT.RAD.BRZ ordered. [facility] 08:59 07:41 06/16/2018 07:41 Discharged to Home. Impression: Abdominal tenderness. Condition em is Stable. Forms are Medication Reconciliation Form, Thank You Letter, Antibiotic Education, Prescription Opioid Use. Follow up: Private Physician; When: 2 - 3 days; Reason: Recheck today's complaints, Continuance of care, Re-evaluation by your physician. Follow up: Nirmala Concepcion; When: 2 - 3 days; Reason: Recheck today's complaints, Re-evaluation by your physician. Problem is new. Symptoms have improved. mack
--- NOTE | 2018-06-16 07:42 | ER ---
Nurse's Notes [facility] Name: Alfredo Escobar Age: 57 yrs Sex: Male : 1960 Arrival Date: 06/16/2018 Time: 04:27 Bed 15 Private MD: Diagnosis: Abdominal tenderness Presentation: 06/16 04:45 Presenting complaint: Patient states: having abdominal pain that is more of cramps ca1 since 2 days ago. Pain is all over the stomach and radiates to the rectum and genital area. Transition of care: patient was not received from another setting of care. Onset of symptoms was June 13, 2018. Risk Assessment: Do you want to hurt yourself or someone else? Patient reports no desire to harm self or others. Initial Sepsis Screen: Does the patient meet any 2 criteria? No. Patient's initial sepsis screen is negative. Does the patient have a suspected source of infection? No. Patient's initial sepsis screen is negative. Care prior to arrival: None. 04:45 Method Of Arrival: Wheelchair ca1 04:45 Acuity: BUCKY 3 ca1 Triage Assessment: 04:51 General: Appears uncomfortable, ill, Behavior is crying, inappropriate for age. Pain: ca1 Complains of pain in abdomen Pain radiates to rectum and genital Pain currently is 10 out of 10 on a pain scale. Quality of pain is described as crampy. GI: Abdomen is round non-distended, Bowel sounds present X 4 quads. Abd is soft. Historical: - Allergies: 04:51 Bactrim; ca1 04:51 Keflex; ca1 04:51 Iodine; ca1 04:51 Latex, Natural Rubber; ca1 04:51 promethazine HCl; ca1 04:51 Levaquin; ca1 04:51 Toradol; ca1 04:51 Vancomycin; ca1 - PMHx: 04:51 Crohn's; PTSD; Pancreatitis; ca1 - PSHx: 04:51 Hernia repair; ca1 - Immunization history:: Flu vaccine is not up to date. - Social history:: Smoking status: Patient uses tobacco products. - Ebola Screening: : Patient negative for fever greater than or equal to 101.5 degrees Fahrenheit, and additional compatible Ebola Virus Disease symptoms Patient denies exposure to infectious person Patient denies travel to an Ebola-affected area in the 21 days before illness onset. - Family history:: not pertinent. Screenin:00 Abuse screen: Denies threats or abuse. Nutritional screening: No deficits noted. jb4 Tuberculosis screening: No symptoms or risk factors identified. Fall Risk IV access (20 points). Total Preciado Fall Scale indicates No Risk (0-24 pts). Assessment: 04:50 General: Appears in no apparent distress. uncomfortable, Behavior is cooperative, jb4 anxious. Pain: Complains of pain in abdomen Pain does not radiate. Pain currently is 10 out of 10 on a pain scale. Quality of pain is described as crampy, Pain began 3 hours ago. Is continuous. Neuro: Level of Consciousness is awake, alert, obeys commands, Oriented to person, place, time, situation. Cardiovascular: Patient's skin is warm and dry. Respiratory: Airway is patent Respiratory effort is even, unlabored, Respiratory pattern is regular, symmetrical. GI: Abdomen is round non-distended, Bowel sounds present X 4 quads. diminished in right upper quadrant, right lower quadrant and left lower quadrant Abd is soft X 4 quads Abdomen is tender to palpation X 4 quads. Reports lower abdominal pain, upper abdominal pain, bloating, constipation, rectal bleeding. : No signs and/or symptoms were reported regarding the genitourinary system. EENT: No signs and/or symptoms were reported regarding the EENT system. Derm: Skin is intact, Skin is pink, warm \T\ dry. Musculoskeletal: Circulation, motion, and sensation intact. 06:00 Reassessment: Patient appears in no apparent distress at this time. Patient and/or jb4 family updated on plan of care and expected duration. Pain level reassessed. Patient is alert, oriented x 3, equal unlabored respirations, skin warm/dry/pink. Patient states feeling better. 06:52 Reassessment: Patient appears in no apparent distress at this time. Patient and/or jb4 family updated on plan of care and expected duration. Pain level reassessed. Patient is alert, oriented x 3, equal unlabored respirations, skin warm/dry/pink. Pt is back from CT. 07:50 Reassessment: pt wants to wait around a little while before being discharged, concerned em pain and cramping will come back, provider notified, charge nurse notified. 08:50 Reassessment: Patient appears in no apparent distress at this time. Patient and/or em family updated on plan of care and expected duration. Pain level reassessed. Patient is alert, oriented x 3, equal unlabored respirations, skin warm/dry/pink. Patient states feeling better. Vital Signs: 04:51 BP 137 / 83; Pulse 66; Resp 18; Temp 98.9; Pulse Ox 100% on R/A; Weight 104.33 kg; ca1 Height 5 ft. 10 in. (177.80 cm); Pain 10/10; 06:05 BP 134 / 77; Pulse 56; Resp 16; Pulse Ox 99% on R/A; jb4 06:52 BP 127 / 70; Pulse 63; Resp 14; Pulse Ox 99% on R/A; jb4 07:47 BP 121 / 64; Pulse 65; Resp 18; Pulse Ox 99% on R/A; em 04:51 Body Mass Index 33.00 (104.33 kg, 177.80 cm) ca1 ED Course: 04:27 Patient arrived in ED. al2 04:40 Jose Luis Corea RN is Primary Nurse. jb4 04:41 Pal Ferreira MD is Attending Physician. mack 04:48 Triage completed. ca1 04:50 Patient has correct armband on for positive identification. Placed in gown. Bed in low jb4 position. Call light in reach. Side rails up X 1. school bus monitor on. Pulse ox on. NIBP on. 04:50 Initial lab(s) drawn, by me, sent to lab. Urine collected: EKG done. Inserted saline jb4 lock: 20 gauge in right antecubital area, using aseptic technique. Blood collected. 04:51 Arm band placed on. ca1 05:20 X-ray completed. Portable x-ray completed in exam room. Patient tolerated procedure sg4 well. 05:21 XRAY Chest (1 view) In Process Unspecified. EDMS 06:36 Abdomen In Process Unspecified. EDMS 06:38 CT completed. Patient tolerated procedure well. Patient moved back from CT. kw1 07:40 Nirmala Concepcion MD is Referral Physician. amck 08:59 No provider procedures requiring assistance completed. IV discontinued, intact, em bleeding controlled, No redness/swelling at site. Pressure dressing applied. Administered Medications: 05:46 Drug: NS 0.9% 1000 ml Route: IV; Rate: 1 bolus; Site: right antecubital; jb4 06:24 Follow up: Response: No adverse reaction; IV Status: Completed infusion jb4 05:47 Drug: Zofran 4 mg Route: IVP; Site: right antecubital; jb4 06:20 Follow up: Response: No adverse reaction; Nausea is decreased jb4 05:49 Drug: morphine 2 mg Route: IVP; Site: right antecubital; jb4 06:20 Follow up: Response: No adverse reaction; Pain is decreased jb4 05:50 Drug: Flagyl 500 mg Volume: 100 ml; Route: IVPB; Rate: 200 ml/hr; Infused Over: 30 jb4 mins; Site: right antecubital; 06:20 Follow up: Response: No adverse reaction; IV Status: Completed infusion jb4 05:55 Not Given (Patient Refused): Pepcid 20 mg IVP once jb4 06:50 Drug: NS 0.9% 1000 ml Route: IV; Rate: 125 ml/hr; Site: right antecubital; jb4 Outcome: 07:41 Discharge ordered by MD. giron 08:59 Discharged to home ambulatory. em 08:59 Condition: good 08:59 Discharge instructions given to patient, Instructed on discharge instructions, follow up and referral plans. medication usage, Demonstrated understanding of instructions, follow-up care, medications, Prescriptions given X 2. 08:59 Patient left the ED. em Signatures: Dispatcher [employer] Pal Leyva MD MD cha Munoz, Edgar, ROLLOFF DRIVER ROLLOFF DRIVER em Jose Luis Corea, RN RN jb4 Taylor Malik1 Shahla Hodge Susana sg4 Acob, Cheryl, RN RN ca1
[2018-06-16 09:15] VITALS: TEMP 98.9
[2018-06-16 09:16] VITALS: O2SAT 99
[2018-06-16 09:19] VITALS: BP 121/64
--- NOTE | 2018-06-16 11:17 | RAD REPORT ---
EXAM DESCRIPTION: RAD - Chest Single View - 06/16/2018 5:21 am CLINICAL HISTORY: Abdominal pain COMPARISON: May 13, 2018 TECHNIQUE: AP portable chest image was obtained 0518 hours . FINDINGS: No acute lung parenchymal process. Numerous hilar and lung parenchymal granulomatous calci fications are present and stable. Heart and vasculature are normal. No measurable pleural effusion an d no pneumothorax. No acute bony abnormality seen. No acute aortic findings suspected. IMPRESSION: No acute cardiopulmonary process. No significant change from comparison.
--- NOTE | 2018-06-16 11:29 | RAD REPORT ---
EXAM DESCRIPTION: CT - Abdomen Pelvis Wo Contrast - 06/16/2018 6:35 am CLINICAL HISTORY: Abdominal pain A preliminary report was provided at the time of the study and reviewed prior to final report. COMPARISON: CT study May 11, 2018 TECHNIQUE: Axial [address] imaging of the abdomen and pelvis was performed without IV contrast. No IV contrast was given because of allergy, abnormal renal function, patient refusal or physician re quest. Oral contrast was given. All CT scans are performed using dose optimization technique as appropriate and may include automated exposure control or mA/KV adjustment according to patient size. FINDINGS: No suspicious findings in the lung bases. The liver, spleen and pancreas show no suspicious findings on non-contrast imaging. Gallbladder and b iliary tree are also without suspicious finding. No hydronephrosis or suspicious renal mass. A 17 millimeter round low-density mass upper pole left ki dney is not significantly different from comparison in believed to be an incidental cyst. Minimal ful lness of the right renal pelvis also matches prior imaging. No significant adrenal finding. Isodense renal masses and pyelonephritis cannot be excluded in the absence of IV contrast. The urinary bladder is without significant finding. No dilated bowel loops or bowel wall thickening. No free air, free fluid or inflammatory stranding. L eft-sided colonic diverticulosis present without acute diverticulitis seen. Small fat only umbilical hernia is present. No mass or bulky lymphadenopathy. No omental thickening. No suspicious bony findings. IMPRESSION: Non-contrast enhanced CT abdomen and pelvis imaging show no significant or suspicious fi nding. Full assessment is limited is the absence of IV contrast.
== END 2018-06-16 08:59 | disposition home or self-care (01) ==
LOC: ER 04:26
DX: R10.819 Abdominal tenderness, unspecified site (principal); Z72.0 Tobacco use; Z88.1 Allergy status to other antibiotic agents; Z88.3 Allergy status to other anti-infective agents; Z88.5 Allergy status to narcotic agent; Z88.8 Allergy status to other drugs, medicaments and biological substances; Z91.040 Latex allergy status; Z91.048 Other nonmedicinal substance allergy status
CPT/HCPCS: 36415; 71045; 74176; 80048; 80076; 83690; 83735; 83880; 84484; 85025; 85610; 86850; 86900; 86901; 87086; 87088; 93005; 96365; 96375; 99285; J2405; J7030

== ENCOUNTER 2018-07-15 06:12 | Emergency (ER) | payer OTHER ==
--- OUTSIDE RECORDS SUMMARY | 2018-07-15 06:15 | XMS REPORT ---
[...] Date Status Dosage System Date Bromfed DM [facility] 74917351916 30-2-10 MG/5ML September Active 10 ml as Orally every 6 2017 needed hrs ProAir [facility] [id number] 108 (90 Base) Apr 28, Active 2 puffs as RespiClick MCG/ACT 2014 needed Inhalation q 4-6 h prn Ventolin HFA [facility] 80967350237 108 (90 Base) September Active 2 puffs MCG/ACT 2017 Inhalation TID X 5 days Aspirin 81 ND 31529677390 81 MG Orally September Active 1 tablet Once a day 2016 Protonix ND 42740778027 40 MG Orally Active 1 tablet Once a day [place] [facility] 28779357051 10-325 MG Apr 29, Active 1 tablet as Orally TID-prn 2013 needed pain Albuterol [facility] 67915147532 108 (90 Base) Apr 29, Active 1 puff Sulfate HFA MCG/ACT 2014 Inhalation every 6 hrs Losartan ND 50591378910 50 MG Orally August Active 1 tablet Potassium Once a day 2017 Albuterol [facility] 68085863094 (2.5 MG/3ML) September Active 3 ml as Sulfate 0.083% 2017 needed Inhalation Three times a day Clonazepam [facility] 59295244932 2 MG Orally BID Apr 28, Active 1 tablet 2014 Creon [facility] 50422338845 79658-20040 Active 1 capsule UNIT Orally TID Azithromycin ND 94205360916 250 MG Orally September Active 2 tablets Once a day 2017 on the first day, then 1 tablet daily for 4 days Nebulizer [facility] 05790114744 - September Active as directed 2017 Results No Known Results Summary Purpose eClinicalWorks Submission
--- OUTSIDE RECORDS SUMMARY | 2018-07-15 06:15 | XMS REPORT ---
[...] Date Status Dosage System Date Losartan ND 82188227445 50 MG Orally August Active 1 tablet Potassium Once a day 2017 ProAir [facility] 60162871898 108 (90 Base) Apr 28, Active 2 puffs as RespiClick MCG/ACT 2014 needed Inhalation q 4-6 h prn MetFORMIN HCl [facility] 89442514982 500 MG Orally Feb 24August Inactive 1 tablet ER Once a day 2015 with evening meal Protonix [facility] 51766733353 40 MG Orally Active 1 tablet Once a day Clonazepam [facility] 61531533221 2 MG Orally BID Apr 28, Active 1 tablet 2014 [place] [facility] 37172459088 1.2 GM Orally Apr 28August Inactive 4 tablets Once a day x 8 2014 weeks Aspirin 81 [facility] 46057004159 81 MG Orally September Active 1 tablet Once a day 2016 Albuterol [facility] 39535323706 108 (90 Base) Apr 29, Active 1 puff Sulfate HFA MCG/ACT 2014 Inhalation every 6 hrs [place] [facility] 18962791919 10-325 MG Apr 29, Active 1 tablet Orally TID-prn 2013 as needed pain Creon [facility] 90462727955 26153-52901 Active 1 capsule UNIT Orally TID Coreg [facility] 53263361861 25 MG Orally August Inactive 1 tablet BID 2017 Results No Known Results Summary Purpose eClinicalWorks Submission
--- OUTSIDE RECORDS SUMMARY | 2018-07-15 06:16 | XMS REPORT ---
:1960 [facility] Team Providers Name Role Phone Belinda Dunham Provider Role Unavailable Allergies, Adverse Reactions, Alerts Substance Reaction Event Type Phenergan hives Drug Allergy Levaquin stops breathing Drug Allergy Keflex rash Drug Allergy Bactrim DS rash Drug Allergy Problems Problem Type Condition Code Onset Dates Condition Status Assessment Crohn''s disease without K50.90 Active complication, unspecified gastrointestinal tract location Problem Essential (primary) hypertension I10 Active Assessment Post-traumatic stress disorder F43.10 Active Problem Generalized anxiety disorder F41.1 Active Assessment Chronic pain syndrome G89.4 Active Problem Hyperglycemia R73.9 Active Problem Crohn''s disease without K50.90 Active complication, unspecified gastrointestinal tract location Problem Encounter for counseling Z71.9 Active Problem Cervical spondylosis without M47.812 Active myelopathy Problem Post-traumatic stress disorder F43.10 Active Assessment Chronic use of benzodiazepine for Z79.899 Active therapeutic purpose Problem Chronic fatigue R53.82 Active Assessment Gastro-esophageal reflux disease K21.9 Active without esophagitis Problem Lumbar sprain, initial encounter S33.5XXA Active [...] Start End Status Dosage System Date Date Carvedilol [facility] 82044784740 25 MG Active TAKE 1 TABLET BY MOUTH TWICE A DAY Creon [facility] 56001502891 [id number] Jul 17, Active take by UNIT Orally 2019 mouth 1 tab with each capsule 3 meal times a day as directed Tylenol with NDC 79328168547 300-30 MG Active 2 tablet as Codeine #3 Orally every 6 needed hrs Albuterol ND 23184429257 108 (90 Base) Apr 29, Active 1 puff Sulfate HFA MCG/ACT 2014 Inhalation every 6 hrs [place] 22017277340 7.5-325 MG Apr 29, Active 1 tablet as Orally TID-prn 2013 needed pain Famotidine ND 63876052897 20 MG Orally Active 1 tablet at every 12 hrs bedtime Clonazepam ND 86271183435 2 MG Active TAKE 1 TABLET BY MOUTH TWICE A DAY Dicyclomine HCl ND 45459410066 20 MG Orally Active 1 tablet Four times a day Ondansetron HCl ND 40031818486 4 MG Orally Active 1 tablet Twice a day ProAir [facility] 10994530509 108 (90 Base) Apr 28, Active 2 puffs as RespiClick MCG/ACT 2014 needed Inhalation q 4-6 h prn Aspirin 81 ND 53668818663 81 MG Orally September Active 1 tablet Once a day 2016 Protonix ND 76633952207 40 MG Orally Active 1 tablet Once a day Ventolin HFA ND 00649461739 108 (90 Base) September Active 2 puffs MCG/ACT 2017 Inhalation TID X 5 days Results No Known Results Summary Purpose eClinicalWorks Submission
--- OUTSIDE RECORDS SUMMARY | 2018-07-15 06:16 | XMS REPORT ---
:1960 Author [facility] Team Providers Name Role Phone Belinda [...] End Status Dosage System Date Date Albuterol [facility] 79159298411 108 (90 Base) Apr 29, Active 1 puff Sulfate HFA MCG/ACT 2014 Inhalation every 6 hrs Clonazepam [facility] 67538819489 2 MG Orally BID Apr 28, Active 1 tablet 2015 Ventolin HFA [facility] 54472139305 108 (90 Base) September Active 2 puffs MCG/ACT 2017 Inhalation TID X 5 days [place] [facility] 46860941324 7.5-325 MG Apr 29, Active 1 tablet as Orally TID-prn 2013 needed pain ProAir [facility] 96601798318 108 (90 Base) Apr 28, Active 2 puffs as RespiClick MCG/ACT 2014 needed Inhalation q 4-6 h prn Creon [facility] 91655261165 [id number] UNIT Jul 17, Active take by Orally 2018 mouth 1 with each meal capsule 3 times a day as directed Carvedilol [facility] 82668140772 25 MG Orally BID Active take 1 tablet by mouth twice a day Protonix [facility] 59415151967 40 MG Orally Active 1 tablet Once a day Aspirin 81 [facility] 64878565210 81 MG Orally September Active 1 tablet Once a day 2016 Results No Known Results Summary Purpose eClinicalWorks Submission
[2018-07-15 06:42] LABS: Absolute Lymphocytes (CBC) 4.1 K/uL (0.7-4.9); Absolute Monocytes 0.8 K/uL (0.1-1.3); Absolute Neutrophil 4.1 K/uL (1.8-8.0); Basophils % 0.6 % (0-1.3); Eosinophils % 1.8 % (0-4.4); Hematocrit 47.4 % (39.6-49.0); Lymphocytes % 44.5 % (15.3-44.8); MPV 8.9 fL (7.6-11.3); Monocytes % 8.2 % (3.3-12.3); RBC Red Blood Cell Count 5.25 M/uL (4.33-5.43)
[2018-07-15 06:47] LABS: Protime INR 1.01
[2018-07-15 07:43] LABS: ALT/SGPT 32 U/L (12-78); AST/SGOT 19 U/L (15-37); Albumin 3.9 g/dL (3.4-5.0); Alkaline Phosphatase 62 U/L (45-117); BUN Blood Urea Nitrogen 19 mg/dL (7-18); Bicarbonate 31 mmol/L (21-32); Bilirubin Direct 0.1 mg/dL (0-0.2); Glucose Level 103 mg/dL (74-106); Magnesium 2.2 mg/dL (1.8-2.4); NT PRO-BNP 34 pg/mL (<125); Potassium 3.7 mmol/L (3.5-5.1); Protein, Total 7.3 g/dL (6.4-8.2); Sodium Level 142 mmol/L (136-145); Troponin (Emerg Dept Use Only) < 0.02 ng/mL (0.0-0.045)
--- NOTE | 2018-07-15 09:13 | RAD REPORT ---
EXAM DESCRIPTION: RAD - Chest Single View - 07/15/2018 7:03 am CLINICAL HISTORY: Chest pain COMPARISON: June 16 TECHNIQUE: AP portable chest image was obtained 0700 hours . FINDINGS: Lungs are clear of an acute process. Granuloma left mid lung field unchanged. Lung marking pattern stable from comparison. Heart and vasculature are normal. No measurable pleural effusion and no pneumothorax. No acute bony abnormality seen. No acute aortic findings suspected. IMPRESSION: No acute cardiopulmonary process. No significant interval change.
[2018-07-15 09:20] LABS: Bilirubin Total 0.3 mg/dL (0.2-1.0)
[2018-07-15] MEDS ORDERED: ONDANSETRON 4 MG/2 ML VIAL ONE ×2 (10:52→11:00)
[2018-07-15] MEDS ORDERED: MORPHINE 4 MG/ML SYR ONE (10:52)
--- NOTE | 2018-07-15 10:52 | EKG ---
Test Date: 2018-07-15 Test Time: 06:21:21 Photographer Finish: LUCY MEASUREMENT RESULTS: Intervals: Rate: 70 ID: [id number] QRSD: 80 QT: 388 QTc: 419 [place]: P: 51 ID: [id number] QRS: 11 T: 16 INTERPRETIVE STATEMENTS: Normal sinus rhythm Normal ECG Compared to ECG 06/16/2018 05:30:02 Sinus bradycardia no longer present Electronically Signed On 07-15-18 10:51:33 PASSENGER SCREENER by José Miguel Gleason
--- NOTE | 2018-07-15 11:45 | EDPHYS ---
Physician Documentation [facility] Name: Alfredo Escobar Age: 57 yrs Sex: Male : 1960 Arrival Date: 07/15/2018 Time: 06:16 Bed 2 Private MD: ED Physician Pablo Swartz HPI: 07/15 07:00 This 57 yrs old Male presents to ER via Wheelchair with complaints of pm1 Palpitations, Back Pain. 07:00 The patient presents with a history of heart racing. Context: The symptoms occur during pm1 sleep. Onset: The symptoms/episode began/occurred this morning, at 05:00. Duration: The patient or guardian reports a single episode, that is now resolved. Modifying factors: The symptoms are aggravated by nothing. The symptoms are alleviated by going back to sleep. Associated signs and symptoms: Pertinent positives: chest pain, Back pain, Pertinent negatives: cough, fever, lightheadedness, nausea, SOB, vomiting. Severity of symptoms: in the emergency department the symptoms have resolved. The patient has not experienced similar symptoms in the past. The patient has not recently seen a physician. Historical: - Allergies: 06:29 Bactrim; lp1 06:29 Iodine; lp1 06:29 Keflex; lp1 06:29 Latex, Natural Rubber; lp1 06:29 Levaquin; lp1 06:29 promethazine HCl; lp1 06:29 Toradol; lp1 06:29 Vancomycin; lp1 - Home Meds: 06:29 carvedilol oral oral [Active]; [place] Oral [Active]; lp1 - PMHx: 06:29 Crohn's; Pancreatitis; PTSD; Anxiety; Arthritis; GERD; lp1 - PSHx: 06:29 Hernia repair; lp1 - Immunization history:: Adult Immunizations up to date. - Social history:: Smoking status: Patient/guardian denies using tobacco. - Ebola Screening: : No symptoms or risks identified at this time. ROS: 07:00 Constitutional: Negative for fever, chills, and weight loss, Eyes: Negative for injury, pm1 pain, redness, and discharge, ENT: Negative for injury, pain, and discharge, Neck: Negative for injury, pain, and swelling. 07:00 Respiratory: Negative for shortness of breath, cough, wheezing, and pleuritic chest pain, Abdomen/GI: Negative for abdominal pain, nausea, vomiting, diarrhea, and constipation. 07:00 : Negative for injury, bleeding, discharge, and swelling, MS/Extremity: Negative for injury and deformity, Skin: Negative for injury, rash, and discoloration, Neuro: Negative for headache, weakness, numbness, tingling, and seizure. 07:00 Cardiovascular: Positive for chest pain, palpitations, Negative for edema. 07:00 Back: Positive for of the left scapular area and right scapular area. Exam: 07:00 Constitutional: This is a well developed, well nourished patient who is awake, alert, pm1 and in no acute distress. Head/Face: Normocephalic, atraumatic. Eyes: Pupils equal round and reactive to light, extra-ocular motions intact. Lids and lashes normal. Conjunctiva and sclera are non-icteric and not injected. Cornea within normal limits. Periorbital areas with no swelling, redness, or edema. ENT: Nares patent. No nasal discharge, no septal abnormalities noted. Tympanic membranes are normal and external auditory canals are clear. Oropharynx with no redness, swelling, or masses, exudates, or evidence of obstruction, uvula midline. Mucous membranes moist. Neck: Trachea midline, no thyromegaly or masses palpated, and no cervical lymphadenopathy. Supple, full range of motion without nuchal rigidity, or vertebral point tenderness. No Meningismus. Chest/axilla: Normal chest wall appearance and motion. Nontender with no deformity. No lesions are appreciated. Cardiovascular: Regular rate and rhythm with a normal S1 and S2. No gallops, murmurs, or rubs. Normal PMI, no JVD. No pulse deficits. Respiratory: Lungs have equal breath sounds bilaterally, clear to auscultation and percussion. No rales, rhonchi or wheezes noted. No increased work of breathing, no retractions or nasal flaring. Abdomen/GI: Soft, non-tender, with normal bowel sounds. No distension or tympany. No guarding or rebound. No evidence of tenderness throughout. 07:00 Skin: Warm, dry with normal turgor. Normal color with no rashes, no lesions, and no evidence of cellulitis. MS/ Extremity: Pulses equal, no cyanosis. Neurovascular intact. Full, normal range of motion. 07:00 Back: normal spinal alignment noted, vertebral tenderness, is not appreciated, muscle spasm, is appreciated in the left scapular area and right scapular area. 07:00 Neuro: Orientation: is normal, Motor: is normal, moves all fours, Gait: is steady, at a normal pace, without difficulty. Vital Signs: 06:30 BP 160 / 82; Pulse 70; Resp 18; Temp 97.5(O); Pulse Ox 100% on R/A; Weight 92.08 kg; lp1 Height 5 ft. 10 in. (177.80 cm); Pain 6/10; 07:14 BP 141 / 86; Pulse 60; Resp 14; Pulse Ox 98% ; sv 07:52 BP 132 / 88; Pulse 64 MON; Resp 16; Pulse Ox 97% ; sv 09:15 BP 144 / 84; Pulse 63; Resp 14; Pulse Ox 98% ; sv 09:54 BP 124 / 79; Pulse 69; Resp 15; Pulse Ox 97% ; sv 11:03 BP 146 / 80; Pulse 56; Resp 17; Pulse Ox 96% on R/A; sg 11:45 BP 128 / 80; Pulse 62; Resp 19; Pulse Ox 98% ; sv 06:30 Body Mass Index 29.13 (92.08 kg, 177.80 cm) lp1 07:52 Sinus Rhythm sv MDM: 06:18 Patient medically screened. pm1 11:43 Data reviewed: vital signs. Data interpreted: Pulse oximetry: on room air is 96 %. pm1 Interpretation: normal. Counseling: I had a detailed discussion with the patient and/or guardian regarding: the historical points, exam findings, and any diagnostic results supporting the discharge/admit diagnosis, lab results, radiology results, the need for outpatient follow up, to return to the emergency department if symptoms worsen or persist or if there are any questions or concerns that arise at home. 07/15 06:25 Order name: Basic Metabolic Panel; Complete Time: 09:38 pm07/15 06:25 Order name: CBC with Diff; Complete Time: 07:04 pm07/15 06:25 Order name: LFT's; Complete Time: 09:38 pm1 07/15 06:25 Order name: Magnesium; Complete Time: 09:38 pm07/15 06:25 Order name: NT PRO-BNP; Complete Time: 09:38 pm1 07/15 06:25 Order name: PT-INR; Complete Time: 07:04 pm1 07/15 06:25 Order name: Troponin (emerg Dept Use Only); Complete Time: 09:38 pm1 07/15 06:25 Order name: XRAY Chest (1 view); Complete Time: 09:38 pm1 07/15 06:25 Order name: EKG; Complete Time: 06:26 pm1 07/15 06:25 Order name: D-Dimer; Complete Time: 07:04 pm1 07/15 09:14 Order name: Glucose, Ancillary Testing; Complete Time: 09:38 EDMS 07/15 09:59 Order name: Troponin (emerg Dept Use Only); Complete Time: 11:43 ss 07/15 06:25 Order name: Cardiac monitoring; Complete Time: 06:32 pm1 07/15 06:25 Order name: EKG - Nurse/Tech; Complete Time: 06:32 pm1 07/15 06:25 Order name: IV Saline Lock; Complete Time: 06:32 pm1 07/15 06:25 Order name: Labs collected and sent; Complete Time: 06:32 pm1 07/15 06:25 Order name: O2 Per Protocol; Complete Time: 06:32 pm1 07/15 06:25 Order name: O2 Sat Monitoring; Complete Time: 06:32 pm1 Administered Medications: No medications were administered Point of Care Testing: Blood Glucose: 06:23 Blood Glucose: 96 mg/dL; ed1 Ranges: Critical Glucose Levels:Adult <50 mg/dl or >400 mg/dl <40 mg/dl or >180 mg/dl Disposition: 07/15/18 11:44 Discharged to Home. Impression: Palpitations, Chest pain, unspecified. - Condition is Stable. - Discharge Instructions: Nonspecific Chest Pain, Palpitations. - Medication Reconciliation Form, Thank You Letter, Antibiotic Education, Prescription Opioid Use form. - Follow up: Emergency Department; When: As needed; Reason: Worsening of condition. Follow up: Private Physician; When: 2 - 3 days; Reason: Recheck today's complaints, Continuance of care, Re-evaluation by your physician. - Problem is new. - Symptoms have improved. Signatures: Dispatcher [employer] EDIL Keyla Scott RN RN ss Sophy Worley RN RN lp1 Gary Barker PRODUCTION STAGE MANAGER PRODUCTION STAGE MANAGER pm1 Corrections: (The following items were deleted from the chart) 11:44 11:44 07/15/2018 11:44 Discharged to Home. Impression: Palpitations; Chest pain, pm1 unspecified. Condition is Stable. Forms are Medication Reconciliation Form, Thank You Letter, Antibiotic Education, Prescription Opioid Use. Follow up: Emergency Department; When: As needed; Reason: Worsening of condition. Follow up: Private Physician; When: 2 - 3 days; Reason: Recheck today's complaints, Continuance of care, Re-evaluation by your physician. Problem is new. Symptoms have improved. pm1 11:44 11:44 07/15/2018 11:44 Discharged to Home. Impression: Chest pain, pm1 unspecifiedPalpitations. Condition is Stable. Forms are Medication Reconciliation Form, Thank You Letter, Antibiotic Education, Prescription Opioid Use. Follow up: Emergency Department; When: As needed; Reason: Worsening of condition. Follow up: Private Physician; When: 2 - 3 days; Reason: Recheck today's complaints, Continuance of care, Re-evaluation by your physician. Problem is new. Symptoms have improved. pm1 12:06 11:44 07/15/2018 11:44 Discharged to Home. Impression: Palpitations; Chest pain, ss unspecified. Condition is Stable. Forms are Medication Reconciliation Form, Thank You Letter, Antibiotic Education, Prescription Opioid Use. Follow up: Emergency Department; When: As needed; Reason: Worsening of condition. Follow up: Private Physician; When: 2 - 3 days; Reason: Recheck today's complaints, Continuance of care, Re-evaluation by your physician. Problem is new. Symptoms have improved. pm1
--- NOTE | 2018-07-15 11:45 | ER ---
Nurse's Notes [facility] Name: Alfredo Escobar Age: 57 yrs Sex: Male : 1960 Arrival Date: 07/15/2018 Time: 06:16 Bed 2 Private MD: Diagnosis: Palpitations;Chest pain, unspecified Presentation: 07/15 06:26 Presenting complaint: Patient states: "I woke up out of a sleep with severe back lp1 pain"; States feeling jaw pain around 0400; Denies chest pain; States feeling dizzy at this time. Transition of care: patient was not received from another setting of care. Onset of symptoms was July 15, 2018. Risk Assessment: Do you want to hurt yourself or someone else? Patient reports no desire to harm self or others. Initial Sepsis Screen: Does the patient meet any 2 criteria? No. Patient's initial sepsis screen is negative. Does the patient have a suspected source of infection? No. Patient's initial sepsis screen is negative. Care prior to arrival: None. 06:26 Method Of Arrival: Wheelchair lp1 06:26 Acuity: BUCKY 3 lp1 Historical: - Allergies: 06:29 Bactrim; lp1 06:29 Iodine; lp1 06:29 Keflex; lp1 06:29 Latex, Natural Rubber; lp1 06:29 Levaquin; lp1 06:29 promethazine HCl; lp1 06:29 Toradol; lp1 06:29 Vancomycin; lp1 - Home Meds: 06:29 carvedilol oral oral [Active]; [place] Oral [Active]; lp1 - PMHx: 06:29 Crohn's; Pancreatitis; PTSD; Anxiety; Arthritis; GERD; lp1 - PSHx: 06:29 Hernia repair; lp1 - Immunization history:: Adult Immunizations up to date. - Social history:: Smoking status: Patient/guardian denies using tobacco. - Ebola Screening: : No symptoms or risks identified at this time. Screenin:31 Abuse screen: Denies threats or abuse. Denies injuries from another. Nutritional lp1 screening: No deficits noted. Tuberculosis screening: No symptoms or risk factors identified. Fall Risk None identified. Assessment: 06:50 General: Appears uncomfortable, Behavior is anxious. Pain: Complains of pain in back ed1 Pain currently is 6 out of 10 on a pain scale. Pain began 1 hour ago. Is continuous. Neuro: Level of Consciousness is awake, alert, obeys commands, Oriented to person, place, time, situation. Cardiovascular: Reports palpitations, since NIPPLE MAKER Heart tones S1 S2 present. Respiratory: Airway is patent Respiratory effort is even, unlabored, Respiratory pattern is regular, symmetrical, Breath sounds are clear bilaterally. GI: No signs and/or symptoms were reported involving the gastrointestinal system. : No signs and/or symptoms were reported regarding the genitourinary system. EENT: No signs and/or symptoms were reported regarding the EENT system. Derm: Skin is intact, is healthy with good turgor, Skin is dry, Skin is normal, Skin temperature is warm. Musculoskeletal: Circulation, motion, and sensation intact. Range of motion: intact in all extremities. 08:05 Reassessment: Patient appears in no apparent distress at this time. Patient and/or sv family updated on plan of care and expected duration. Pain level reassessed. Patient is alert, oriented x 3, equal unlabored respirations, skin warm/dry/pink. 10:26 Reassessment: Patient appears in no apparent distress at this time. Patient and/or sv family updated on plan of care and expected duration. Pain level reassessed. Patient is alert, oriented x 3, equal unlabored respirations, skin warm/dry/pink. 10:50 Reassessment: Patient appears in no apparent distress at this time. attempt to sg administer IVP medications as ordered, pt complaining of pain at the IV site, IV site appears infiltrated. 10:58 Reassessment: pt has a minor with him, pt reports that his daughter can come pick him sg up if he can get morphine, awaiting pt family member to arrive at the ED prior to administering the morphine mediation. 11:40 Reassessment: pt continues to sip water at this time, tolerating well, complains of sg nausea but no vomiting noted at this time. 11:42 Reassessment: Patient appears in no apparent distress at this time. Patient and/or sg family updated on plan of care and expected duration. Pain level reassessed. Patient is alert, oriented x 3, equal unlabored respirations, skin warm/dry/pink. 11:50 Reassessment: Patient was asking for results and why he has yet to receive IV pain ss medication. Pt has been notified that he is up for discharge and all results were back and SAMIA Vega would be in shortly as well as nursing staff with discharge papers. Pt appears upset, but states everything is okay when asked. 11:59 Reassessment: Pt stomped out of ER, throwing a paper in the air stating, "worse service ss ever" while holding his young son. Pt ambulated out of ER with steady gait. Attempted to call patient back to exam room to discuss discharge plans and why he was so upset, but patient continued to leave ED. Vital Signs: 06:30 BP 160 / 82; Pulse 70; Resp 18; Temp 97.5(O); Pulse Ox 100% on R/A; Weight 92.08 kg; lp1 Height 5 ft. 10 in. (177.80 cm); Pain 6/10; 07:14 BP 141 / 86; Pulse 60; Resp 14; Pulse Ox 98% ; sv 07:52 BP 132 / 88; Pulse 64 MON; Resp 16; Pulse Ox 97% ; sv 09:15 BP 144 / 84; Pulse 63; Resp 14; Pulse Ox 98% ; sv 09:54 BP 124 / 79; Pulse 69; Resp 15; Pulse Ox 97% ; sv 11:03 BP 146 / 80; Pulse 56; Resp 17; Pulse Ox 96% on R/A; sg 11:45 BP 128 / 80; Pulse 62; Resp 19; Pulse Ox 98% ; sv 06:30 Body Mass Index 29.13 (92.08 kg, 177.80 cm) lp1 07:52 Sinus Rhythm sv ED Course: 06:16 Patient arrived in ED. tl2 06:18 Gary Barker NP is PHCP. pm1 06:18 Pablo Swartz MD is Attending Physician. pm1 06:22 Inserted saline lock: 20 gauge in left antecubital area, using aseptic technique. Blood ed1 collected. 06:27 Triage completed. lp1 06:27 Arm band placed on right wrist. lp1 06:30 EKG done, by ED staff, reviewed by Pablo Swartz MD. lp1 06:30 Patient has correct armband on for positive identification. Placed in gown. Cardiac lp1 monitor on. Pulse ox on. NIBP on. 06:50 Jill Muir, RN is Primary Nurse. ed1 06:56 Primary Nurse role handed off by Jill Muir, RN ed1 07:03 XRAY Chest (1 view) In Process Unspecified. EDMS 07:50 Sindhu Rojas, RN is Primary Nurse. sv 08:05 Awaiting re-evaluation by ER provider. sv 10:26 Repeat lab(s) drawn. by or, sent to lab. sv 12:03 No provider procedures requiring assistance completed. IV discontinued, intact, ss bleeding controlled, No redness/swelling at site. Pressure dressing applied. Administered Medications: No medications were administered Point of Care Testing: Blood Glucose: 06:23 Blood Glucose: 96 mg/dL; ed1 Ranges: Outcome: 11:44 Discharge ordered by MD. pm1 12:04 Discharged to home ambulatory, pt left prior to signing discharge papers ss 12:04 Condition: good 12:06 Patient left the ED. Signatures: Dispatcher [employer] EDGA Sindhu Rojas, MARY HERNANDEZ Abdias Hardy RN RN sg Smirch, Shelby, RN RN Jill Muir, MARY RN ed1 Sophy Worley RN RN lp1 Gary Barker, ACCOUNTING FILE CLERK ACCOUNTING FILE CLERK pm1 Zeina Carrasco RN RN tl2 Corrections: (The following items were deleted from the chart) 11:41 11:40 Reassessment: pt has a minor with him, pt reports that his daughter can come pick sg him up if he can get morphine, awaiting pt family member to arrive at the ED prior to administering the morphine mediation sg
[2018-07-15 12:13] VITALS: TEMP 97.5
[2018-07-15 12:20] VITALS: BP 128/80; O2SAT 98
[2018-07-16] MEDS ORDERED: PANTOPRAZOLE 40 MG INJ ONE (13:50)
== END 2018-07-15 12:06 | disposition home or self-care (01) ==
LOC: ER 06:12
DX: R00.2 Palpitations (principal); R07.9 Chest pain, unspecified; Z79.891 Long term (current) use of opiate analgesic; Z79.899 Other long term (current) drug therapy
CPT/HCPCS: 36415; 71045; 80048; 80076; 82962; 83735; 83880; 84484; 85025; 85379; 85610; 93005; 99284; J2405

== ENCOUNTER 2018-08-24 00:15 | Emergency (ER) | payer OTHER ==
--- OUTSIDE RECORDS SUMMARY | 2018-08-24 00:17 | XMS REPORT ---
[...] Date Status Dosage System Date Losartan ND 10435538545 50 MG Orally August Active 1 tablet Potassium Once a day 2017 ProAir [facility] 71820095550 108 (90 Base) Apr 28, Active 2 puffs as RespiClick MCG/ACT 2014 needed Inhalation q 4-6 h prn MetFORMIN HCl [facility] 21253714590 500 MG Orally Feb 24August Inactive 1 tablet ER Once a day 2015 with evening meal Protonix [facility] 20214802382 40 MG Orally Active 1 tablet Once a day Clonazepam [facility] 83503371201 2 MG Orally BID Apr 28, Active 1 tablet 2014 Lialda [facility] 86857285025 1.2 GM Orally Apr 28August Inactive 4 tablets Once a day x 8 2014 weeks Aspirin 81 [facility] 13094157350 81 MG Orally September Active 1 tablet Once a day 2016 Albuterol [facility] 02800250799 108 (90 Base) Apr 29, Active 1 puff Sulfate HFA MCG/ACT 2014 Inhalation every 6 hrs [place] [facility] 40096453384 10-325 MG Apr 29, Active 1 tablet Orally TID-prn 2013 as needed pain Creon [facility] 69580890715 24696-35537 Active 1 capsule UNIT Orally TID Coreg [facility] 13474064651 25 MG Orally August Inactive 1 tablet BID 2017 Results No Known Results Summary Purpose eClinicalWorks Submission
--- OUTSIDE RECORDS SUMMARY | 2018-08-24 00:18 | XMS REPORT ---
:1960 [facility] Team Providers Name Role Phone Belinda uDnham Provider Role Unavailable Allergies, Adverse Reactions, Alerts [...] End Status Dosage System Date Date Albuterol [facility] [id number] 108 (90 Base) Apr 29, Active 1 puff Sulfate HFA MCG/ACT 2014 Inhalation every 6 hrs Clonazepam [facility] 72238961814 2 MG Orally BID Apr 28, Active 1 tablet 2015 Ventolin HFA [facility] 03695871907 108 (90 Base) September Active 2 puffs MCG/ACT 2017 Inhalation TID X 5 days [place] [facility] 31595433754 7.5-325 MG Apr 29, Active 1 tablet as Orally TID-prn 2013 needed pain ProAir [facility] 81064564182 108 (90 Base) Apr 28, Active 2 puffs as RespiClick MCG/ACT 2014 needed Inhalation q 4-6 h prn Creon [facility] 90992726926 [id number] UNIT Jul 17, Active take by Orally 2018 mouth 1 with each meal capsule 3 times a day as directed Carvedilol [facility] 52671411959 25 MG Orally BID Active take 1 tablet by mouth twice a day Protonix [facility] 59086058853 40 MG Orally Active 1 tablet Once a day Aspirin 81 [facility] 34438660201 81 MG Orally September Active 1 tablet Once a day 2016 Results No Known Results Summary Purpose eClinicalWorks Submission
--- OUTSIDE RECORDS SUMMARY | 2018-08-24 00:18 | XMS REPORT ---
[...] Date Status Dosage System Date Bromfed DM [facility] 50579400915 30-2-10 MG/5ML September Active 10 ml as Orally every 6 2017 needed hrs ProAir [facility] 81703319739 108 (90 Base) Apr 28, Active 2 puffs as RespiClick MCG/ACT 2014 needed Inhalation q 4-6 h prn Ventolin HFA [facility] 20738679723 108 (90 Base) September Active 2 puffs MCG/ACT 2017 Inhalation TID X 5 days Aspirin 81 ND 92605125805 81 MG Orally September Active 1 tablet Once a day 2016 Protonix ND 22323594568 40 MG Orally Active 1 tablet Once a day [place] [facility] 92704073581 10-325 MG Apr 29, Active 1 tablet as Orally TID-prn 2013 needed pain Albuterol [facility] 83333376710 108 (90 Base) Apr 29, Active 1 puff Sulfate HFA MCG/ACT 2014 Inhalation every 6 hrs Losartan ND 64316181562 50 MG Orally August Active 1 tablet Potassium Once a day 2017 Albuterol [facility] 05846046305 (2.5 MG/3ML) September Active 3 ml as Sulfate 0.083% 2017 needed Inhalation Three times a day Clonazepam [facility] 52298229574 2 MG Orally BID Apr 28, Active 1 tablet 2014 Creon [facility] 21554349100 18724-07481 Active 1 capsule UNIT Orally TID Azithromycin ND 05439050990 250 MG Orally September Active 2 tablets Once a day 2017 on the first day, then 1 tablet daily for 4 days Nebulizer [facility] 16727728441 - September Active as directed 2017 Results No Known Results Summary Purpose eClinicalWorks Submission
--- OUTSIDE RECORDS SUMMARY | 2018-08-24 00:18 | XMS REPORT ---
:1960 [facility] Care Team Providers Name Role Phone [...] End Status Dosage System Date Date Carvedilol [facility] 10206001795 25 MG Active TAKE 1 TABLET BY MOUTH TWICE A DAY Creon [facility] 67303815048 31079-96665 Jul 17, Active take by UNIT Orally 2019 mouth 1 tab with each capsule 3 meal times a day as directed Tylenol with NDC 38013311005 300-30 MG Active 2 tablet as Codeine #3 Orally every 6 needed hrs Albuterol ND 43780506632 108 (90 Base) Apr 29, Active 1 puff Sulfate HFA MCG/ACT 2014 Inhalation every 6 hrs [place] ND 44123320016 7.5-325 MG Apr 29, Active 1 tablet as Orally TID-prn 2013 needed pain Famotidine ND 04972881014 20 MG Orally Active 1 tablet at every 12 hrs bedtime Clonazepam ND 83375862522 2 MG Active TAKE 1 TABLET BY MOUTH TWICE A DAY Dicyclomine HCl ND 70662022483 20 MG Orally Active 1 tablet Four times a day Ondansetron HCl ND 68732810357 4 MG Orally Active 1 tablet Twice a day ProAir [facility] 45668563109 108 (90 Base) Apr 28, Active 2 puffs as RespiClick MCG/ACT 2014 needed Inhalation q 4-6 h prn Aspirin 81 ND 20702859139 81 MG Orally September Active 1 tablet Once a day 2016 Protonix ND 33528834622 40 MG Orally Active 1 tablet Once a day Ventolin HFA ND 72081884783 108 (90 Base) September Active 2 puffs MCG/ACT 2017 Inhalation TID X 5 days Results No Known Results Summary Purpose eClinicalWorks Submission
--- OUTSIDE RECORDS SUMMARY | 2018-08-24 00:18 | XMS REPORT ---
[...] anxiety disorder F41.1 Active Medications Medication Code System Code Instructions Start End Date Status Dosage Date Clonazepam [facility] 28806500018 2 MG Orally twice Active TAKE 1 a day TABLET BY MOUTH TWICE A DAY Results No Known Results Summary Purpose eClinicalWorks Submission
--- OUTSIDE RECORDS SUMMARY | 2018-08-24 00:18 | XMS REPORT ---
[...] Medications Results No Known Results Summary Purpose [facility] [employer] Submission
[2018-08-24 01:37] LABS: Absolute Lymphocytes (CBC) 2.9 K/uL (0.7-4.9); Absolute Monocytes 0.5 K/uL (0.1-1.3); Absolute Neutrophil 4.3 K/uL (1.8-8.0); Basophils % 0.4 % (0-1.3); Eosinophils % 1.6 % (0-4.4); Hematocrit 41.3 % (39.6-49.0); Lymphocytes % 37.3 % (15.3-44.8); MPV 8.7 fL (7.6-11.3); Monocytes % 6.5 % (3.3-12.3); RBC Red Blood Cell Count 4.59 M/uL (4.33-5.43)
[2018-08-24 01:49] LABS: Potassium 3.8 mmol/L (3.5-5.1)
--- NOTE | 2018-08-24 03:08 | ER ---
Nurse's Notes [facility] Name: Alfredo Escobar Age: 57 yrs Sex: Male : 1960 Arrival Date: 08/24/2018 Time: 00:16 Bed 30 Private MD: Kayode Sam Diagnosis: Headache;Tremor, unspecified Presentation: 08/24 00:20 Presenting complaint: Patient states: "When wake up I have trimmers. I am also having a jd3 hard time hearing like in a tunnel. I am also having problems with my short term memory.". Transition of care: patient was not received from another setting of care. 00:20 Method Of Arrival: Ambulatory jd3 00:23 Onset of symptoms was August 24, 2018. Risk Assessment: Do you want to hurt yourself or jd3 someone else? Patient reports no desire to harm self or others. Initial Sepsis Screen: Does the patient meet any 2 criteria? No. Patient's initial sepsis screen is negative. Does the patient have a suspected source of infection? No. Patient's initial sepsis screen is negative. Care prior to arrival: None. 00:23 Acuity: BUCKY 3 jd3 Historical: - Allergies: 00:24 Bactrim; jd3 00:24 Iodine; jd3 00:24 Keflex; jd3 00:24 Latex, Natural Rubber; jd3 00:24 Levaquin; jd3 00:24 promethazine HCl; jd3 00:24 Toradol; jd3 00:24 Vancomycin; jd3 00:29 Iodinated Contrast Media - IV Dye; jd3 - Home Meds: 00:24 carvedilol Oral [Active]; [place] Oral [Active]; jd3 00:29 Aspirin Oral [Active]; Creon oral oral [Active]; Clonazepam Oral [Active]; carvedilol jd3 oral oral [Active]; pantoprazole oral oral [Active]; - PMHx: 00:24 Anxiety; Crohn's; Arthritis; GERD; Pancreatitis; PTSD; jd3 - PSHx: 00:24 Hernia repair; jd3 - Immunization history:: Adult Immunizations up to date. - Social history:: Smoking status: Patient/guardian denies using tobacco. - Ebola Screening: : Patient negative for fever greater than or equal to 101.5 degrees Fahrenheit, and additional compatible Ebola Virus Disease symptoms. - Family history:: not pertinent. - Hospitalizations: : No recent hospitalization is reported. Screenin:25 Abuse screen: Denies threats or abuse. Nutritional screening: No deficits noted. jd3 Tuberculosis screening: No symptoms or risk factors identified. Fall Risk Ambulatory Aid- None/Bed Rest/Nurse Assist (0 pts). Gait- Normal/Bed Rest/Wheelchair (0 pts) Mental Status- Oriented to own ability (0 pts). Total [place] Fall Scale indicates No Risk (0-24 pts). Assessment: 01:00 General: Appears in no apparent distress. comfortable, Behavior is calm, cooperative. rv Pain: Denies pain. Neuro: Level of Consciousness is awake, alert, obeys commands, Oriented to person, place, time, situation. Cardiovascular: Capillary refill < 3 seconds. Respiratory: Airway is patent. GI: No signs and/or symptoms were reported involving the gastrointestinal system. : No signs and/or symptoms were reported regarding the genitourinary system. EENT: No signs and/or symptoms were reported regarding the EENT system. Derm: Skin is intact. 01:00 Musculoskeletal: No signs and/or symptoms reported regarding the musculoskeletal system.rv Vital Signs: 00:24 BP 142 / 80; Pulse 66; Resp 17 S; Temp 97.9(O); Pulse Ox 99% on R/A; Weight 84.82 kg j (R); Height 5 ft. 10 in. (177.80 cm) (R); Pain 2/10; 02:24 BP 126 / 78 LA; Pulse 57; Resp 16 S; Pulse Ox 98% on R/A; rv 00:24 Body Mass Index 26.83 (84.82 kg, 177.80 cm) [facility] ED Course: 00:16 Patient arrived in ED. am2 00:17 Kayode Sam DO is Private Physician. am2 00:23 Triage completed. jd3 00:25 Arm band placed on. jd3 00:54 Geronimo Campbell MD is Attending Physician. rn 01:30 Inserted saline lock: 20 gauge in left forearm, using aseptic technique. Blood rv collected. 01:35 CT completed. Patient tolerated procedure well. Patient moved to CT via wheelchair. Patient moved back from CT. 01:39 CT Head Brain wo Cont In Process Unspecified. EDMS 02:24 Patient has correct armband on for positive identification. Placed in gown. Bed in low rv position. Call light in reach. Side rails up X 1. Pulse ox on. NIBP on. 03:12 No provider procedures requiring assistance completed. IV discontinued, bleeding rv controlled, No redness/swelling at site. Pressure dressing applied. Administered Medications: No medications were administered Outcome: 03:07 Discharge ordered by . rn 03:13 Discharged to home ambulatory. rv 03:13 Condition: good 03:13 Discharge instructions given to patient, Instructed on discharge instructions, follow up and referral plans. Demonstrated understanding of instructions, follow-up care. 03:13 Patient left the ED. rv Signatures: Dispatcher [employer] EDMS Cristopher Huertas Roman, MD MD rn Moreno, Amanda am2 Davies, Jonathon RN RN jd3 Nelson Emerson RN RN rv
--- NOTE | 2018-08-24 03:08 | EDPHYS ---
Physician Documentation [facility] Name: Alfredo Escobar Age: 57 yrs Sex: Male : 1960 Arrival Date: 08/24/2018 Time: 00:16 Bed 30 Private MD: Kayode Sam ED Physician Geronimo Campbell HPI: 08/24 01:42 This 57 yrs old Male presents to ER via Ambulatory with complaints of rn headache, memory loss, tremors. 01:43 Reports unknown onset, atleast a few days, of headache, hyperacusis, and tremors, as rn well as temporary short term memory loss. No recent head injury. No focal neurological complaints. No fever/neck pain.. Onset: The symptoms/episode began/occurred at an unknown time. Severity of symptoms: At their worst the symptoms were mild in the emergency department the symptoms are unchanged. The patient has not experienced similar symptoms in the past. The patient has not recently seen a physician. Historical: - Allergies: 00:24 Bactrim; jd3 00:24 Iodine; jd3 00:24 Keflex; jd3 00:24 Latex, Natural Rubber; jd3 00:24 Levaquin; jd3 00:24 promethazine HCl; jd3 00:24 Toradol; jd3 00:24 Vancomycin; jd3 00:29 Iodinated Contrast Media - IV Dye; jd3 - Home Meds: 00:24 carvedilol Oral [Active]; [place] Oral [Active]; jd3 00:29 Aspirin Oral [Active]; Creon oral oral [Active]; Clonazepam Oral [Active]; carvedilol jd3 oral oral [Active]; pantoprazole oral oral [Active]; - PMHx: 00:24 Anxiety; Crohn's; Arthritis; GERD; Pancreatitis; PTSD; jd3 - PSHx: 00:24 Hernia repair; jd3 - Immunization history:: Adult Immunizations up to date. - Social history:: Smoking status: Patient/guardian denies using tobacco. - Ebola Screening: : Patient negative for fever greater than or equal to 101.5 degrees Fahrenheit, and additional compatible Ebola Virus Disease symptoms. - Family history:: not pertinent. - Hospitalizations: : No recent hospitalization is reported. ROS: 01:43 Constitutional: Negative for fever, chills, and weight loss, Eyes: Negative for injury, rn pain, redness, and discharge, Neck: Negative for injury, pain, and swelling, Cardiovascular: Negative for chest pain, palpitations, and edema, Respiratory: Negative for shortness of breath, cough, wheezing, and pleuritic chest pain, Abdomen/GI: Negative for abdominal pain, nausea, vomiting, diarrhea, and constipation, MS/Extremity: Negative for injury and deformity, Skin: Negative for injury, rash, and discoloration, Neuro: + headache and tremors, + generalized weakness Exam: 01:43 Constitutional: This is a well developed, well nourished patient who is awake, alert, rn and in no acute distress. Seems anxious Head/Face: Normocephalic, atraumatic. Eyes: Pupils equal round and reactive to light, extra-ocular motions intact. Lids and lashes normal. Conjunctiva and sclera are non-icteric and not injected. Cornea within normal limits. Periorbital areas with no swelling, redness, or edema. ENT: Nares patent. No nasal discharge, no septal abnormalities noted. Tympanic membranes are normal and external auditory canals are clear. Oropharynx with no redness, swelling, or masses, exudates, or evidence of obstruction, uvula midline. Mucous membranes moist. Cardiovascular: Regular rate and rhythm, No pulse deficits. Respiratory: Lungs have equal breath sounds bilaterally, clear to auscultation, No increased work of breathing, no retractions or nasal flaring. Skin: Warm, dry MS/ Extremity: Pulses equal, no cyanosis. Neurovascular intact. Full, normal range of motion. Equal circumference. Neuro: Awake and alert, GCS 15, oriented to person, place, time, and situation. Cranial nerves II-XII grossly intact. Motor strength 5/5 in all extremities. Sensory grossly intact. Cerebellar exam normal. Normal gait. Vital Signs: 00:24 BP 142 / 80; Pulse 66; Resp 17 S; Temp 97.9(O); Pulse Ox 99% on R/A; Weight 84.82 kg jd3 (R); Height 5 ft. 10 in. (177.80 cm) (R); Pain 2/10; 02:24 BP 126 / 78 LA; Pulse 57; Resp 16 S; Pulse Ox 98% on R/A; rv 00:24 Body Mass Index 26.83 (84.82 kg, 177.80 cm) jd3 MDM: 00:56 Patient medically screened. rn 02:59 Differential Diagnosis electrolyte abnormality, hypertensive headache, dehydration. rn Data reviewed: vital signs, nurses notes, lab test result(s), EKG, radiologic studies, CT scan, and as a result, I will discharge patient. Counseling: I had a detailed discussion with the patient and/or guardian regarding: the historical points, exam findings, and any diagnostic results supporting the discharge/admit diagnosis, lab results, radiology results, the need for outpatient follow up, to return to the emergency department if symptoms worsen or persist or if there are any questions or concerns that arise at home. Response to treatment: the patient's symptoms have mildly improved after treatment. Special discussion: I discussed with the patient/guardian in detail that at this point there is no indication for admission to the hospital. It is understood, however, that if the symptoms persist or worsen the patient needs to return immediately for re-evaluation. 08/24 01:07 Order name: CBC with Diff; Complete Time: 01:54 rn 08/24 01:07 Order name: Basic Metabolic Panel; Complete Time: 01:54 rn 08/24 01:07 Order name: IV Start; Complete Time: 01:46 rn 08/24 01:07 Order name: EKG; Complete Time: 01:07 rn 08/24 01:07 Order name: CT Head Brain wo Cont rn 08/24 03:02 Order name: Urine Dipstick--Ancillary (enter results) ar5 08/24 01:07 Order name: EKG - Nurse/Tech; Complete Time: 01:46 rn Administered Medications: No medications were administered Disposition: 08/24/18 03:07 Discharged to Home. Impression: Headache, Tremor, unspecified. - Condition is Stable. - Medication Reconciliation Form, Thank You Letter, Antibiotic Education, Prescription Opioid Use form. - Follow up: Private Physician; When: As needed; Reason: Recheck today's complaints, Re-evaluation by your physician. - Problem is new. - Symptoms have improved. Signatures: Dispatcher [employer] EDMS Geronimo Campbell MD MD rn Davies, Jonathon, RN RN jNelson Chilel RN RN rv Corrections: (The following items were deleted from the chart) 03:13 03:07 08/24/2018 03:07 Discharged to Home. Impression: Headache; Tremor, unspecified. rv Condition is Stable. Forms are Medication Reconciliation Form, Thank You Letter, Antibiotic Education, Prescription Opioid Use. Follow up: Private Physician; When: As needed; Reason: Recheck today's complaints, Re-evaluation by your physician. Problem is new. Symptoms have improved. rn
[2018-08-24 03:46] LABS: Urine Blood TRACE (NEG); Urine Glucose NEGATIVE (NEG); Urine Protein NEGATIVE (NEG); Urine pH 5.5 (5.0-7.0)
[2018-08-24 04:12] VITALS: TEMP 97.9
[2018-08-24 04:14] VITALS: BP 126/78; O2SAT 98
--- NOTE | 2018-08-24 11:41 | RAD REPORT ---
EXAM DESCRIPTION: CT - Head Brain Wo Cont - 08/24/2018 5:13 am CLINICAL HISTORY: 57 years Male CONFUSED COMPARISON: Head CT without contrast dated 10/24/2015 (report not available) TECHNIQUE: Contiguous axial images of the brain were obtained without the administration of intraven ous contrast.This exam was performed according to our departmental dose-optimization program which in cludes use of Automated Exposure Control, adjustment of the mA and/or kV according to patient size an d/or use of iterative reconstruction technique. FINDINGS: Brain: No acute intracranial hemorrhage. No acute territorial infarct. No extra-axial danisha ection. No mass effect or herniation. Ventricles: Within normal limits. Unchanged mild symmetrical prominence of the occipital horns. Globes and orbits: No acute abnormality. Bones: No acute osseous finding. Paranasal sinuses: Paranasal sinuses are clear.. Mastoid air cells: Well pneumatized.. Soft tissues: Within normal limits [place] view shows no additional significant finding IMPRESSION: No acute intracranial abnormality. Electronically signed by: Nikos Hair DO 08/24/2018 1:43 AM CDT Due to temporary technical issues with the PACS/Fluency reporting system, reports are being signed by the in house radiologist as a courtesy to ensure prompt reporting. The interpreting radiologist is f ully responsible for the content of the report.
== END 2018-08-24 03:13 | disposition home or self-care (01) ==
LOC: ER 00:15
DX: R51 Headache (principal); R25.1 Tremor, unspecified; R41.3 Other amnesia; F41.9 Anxiety disorder, unspecified; K50.90 Crohn's disease, unspecified, without complications; K21.9 Gastro-esophageal reflux disease without esophagitis; Z79.82 Long term (current) use of aspirin; Z88.6 Allergy status to analgesic agent; Z88.1 Allergy status to other antibiotic agents; Z91.041 Radiographic dye allergy status; Z91.040 Latex allergy status
CPT/HCPCS: 36415; 70450; 80048; 81003; 85025; 93005; 99284

== ENCOUNTER 2018-09-26 20:47 | Emergency (ER) | payer OTHER ==
--- OUTSIDE RECORDS SUMMARY | 2018-09-26 20:49 | XMS REPORT ---
[...] Date Status Dosage System Date Bromfed DM [facility] 66494889747 30-2-10 MG/5ML September Active 10 ml as Orally every 6 2017 needed hrs ProAir [facility] 15455665029 108 (90 Base) Apr 28, Active 2 puffs as RespiClick MCG/ACT 2014 needed Inhalation q 4-6 h prn Ventolin HFA [facility] 38936380632 108 (90 Base) September Active 2 puffs MCG/ACT 2017 Inhalation TID X 5 days Aspirin 81 ND 21657988522 81 MG Orally September Active 1 tablet Once a day 2016 Protonix ND 15127472291 40 MG Orally Active 1 tablet Once a day [place] [facility] 84527304484 10-325 MG Apr 29, Active 1 tablet as Orally TID-prn 2013 needed pain Albuterol [facility] 28547227594 108 (90 Base) Apr 29, Active 1 puff Sulfate HFA MCG/ACT 2014 Inhalation every 6 hrs Losartan ND 07857200185 50 MG Orally August Active 1 tablet Potassium Once a day 2017 Albuterol [facility] 25498072202 (2.5 MG/3ML) September Active 3 ml as Sulfate 0.083% 2017 needed Inhalation Three times a day Clonazepam [facility] 24650116157 2 MG Orally BID Apr 28, Active 1 tablet 2014 Creon [facility] 37210285838 77763-69305 Active 1 capsule UNIT Orally TID Azithromycin ND 34016314013 250 MG Orally September Active 2 tablets Once a day 2017 on the first day, then 1 tablet daily for 4 days Nebulizer [facility] 04911098559 - September Active as directed 2017 Results No Known Results Summary Purpose eClinicalWorks Submission
--- OUTSIDE RECORDS SUMMARY | 2018-09-26 20:49 | XMS REPORT | Continuity of Care Document ---
:1960 Author Organization Interface Problems Problem Status Onset Date Classification Date Comments Source Reported Medications Medication Details Route Status Patient Ordering Order Source Instructions Provider Date Allergies, Adverse Reactions, Alerts Substance Category Reaction Severity Reaction Status Date Comments Source type Reported Immunizations Immunization Date Given Site Status Last Updated Comments Source Results Order Results Value Reference Date Interpretation Comments Source Name Range Vital Signs Vital Sign Value Date Comments Source Encounters Location Location Encounter Encounter Reason Attending ADM DC Status Source Details Type Number For Provider Date Date Visit Outpatient [id number] [place] 10/31 [facility] Procedures Procedure Code Date Perfomer Comments Source
--- OUTSIDE RECORDS SUMMARY | 2018-09-26 20:50 | XMS REPORT ---
[...] Start End Date Status Dosage Date Clonazepam [facility] 56336600490 2 MG Orally twice Active TAKE 1 a day TABLET BY MOUTH TWICE A DAY Results No Known Results Summary Purpose eClinicalWorks Submission
--- OUTSIDE RECORDS SUMMARY | 2018-09-26 20:50 | XMS REPORT ---
:1960 Author Organization eClinicalWorks Care Team Providers Name Role Phone Belinda Dunham Provider Role Unavailable Allergies, Adverse Reactions, Alerts Substance Reaction Event Type Phenergan hives Drug Allergy Levaquin stops breathing Drug Allergy Keflex rash Drug Allergy Bactrim DS rash Drug Allergy Problems Problem Type Condition Code Onset Dates Condition Status Assessment BMI 29.0-29.9,adult Z68.29 Active Assessment Essential hypertension I10 Active Assessment Chronic pain syndrome G89.4 Active Problem Hyperglycemia R73.9 Active Assessment Cervical spondylosis without M47.812 Active myelopathy Problem Encounter for counseling Z71.9 Active Assessment Post-traumatic stress disorder F43.10 Active Problem Crohn''s disease without K50.90 Active complication, unspecified gastrointestinal tract location Problem Lumbar sprain, initial encounter S33.5XXA Active Problem 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 Problem BMI 29.0-29.9,adult Z68.29 Active Problem Chronic fatigue R53.82 Active Problem Other chronic pancreatitis K86.1 Active Problem Panic disorder without agoraphobia F41.0 Active Problem Essential hypertension I10 Active Problem Acute tonsillitis, unspecified J03.90 Active etiology Problem Asymptomatic microscopic hematuria R31.21 Active Problem Cervical spondylosis without M47.812 Active myelopathy Problem Post-traumatic stress disorder F43.10 Active Problem Acute upper respiratory infection J06.9 Active Problem Abnormal blood sugar R73.09 Active Problem Narcolepsy without 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 Active Problem Disc disorder M51.9 Active Problem Essential (primary) hypertension I10 Active Problem Generalized anxiety disorder F41.1 Active Problem Gastro-esophageal reflux disease K21.9 Active without esophagitis Problem Chronic pain syndrome G89.4 Active Medications Medication Code Code Instructions Start End Status Dosage System Date Date Albuterol [facility] 64289626965 108 (90 Base) Apr 29, Active 1 puff Sulfate HFA MCG/ACT 2014 Inhalation every 6 hrs ProAir [facility] 03016312046 108 (90 Base) Apr 28, Active 2 puffs as RespiClick MCG/ACT 2014 needed Inhalation q 4-6 h prn Protonix ND 85422517226 40 MG Orally Active 1 tablet Once a day Famotidine ND 89728964236 20 MG Orally Active 1 tablet every 12 hrs at bedtime Clonazepam ND 06145107947 2 MG Orally Active TAKE 1 twice a day TABLET BY MOUTH TWICE A DAY [place] 68350572431 7.5-325 MG Apr 29, Active 1 tablet Orally TID-prn 2013 as needed pain Aspirin 81 ND 68413085033 81 MG Orally September Active 1 tablet Once a day 2016 Ondansetron HCl ND 62609804796 4 MG Orally Active 1 tablet Twice a day Ventolin HFA [facility] 10766127597 108 (90 Base) Active 2 puffs MCG/ACT Inhalation TID X 5 days Carvedilol [facility] 47316701623 25 MG Active TAKE 1 TABLET BY MOUTH TWICE A DAY Dicyclomine HCl ND 07806414390 20 MG Orally Active 1 tablet Four times a day Tylenol with [facility] 55129531385 300-30 MG Orally Active 2 tablet Codeine #3 every 6 hrs as needed Results No Known Results Summary Purpose eClinicalWorks Submission
--- OUTSIDE RECORDS SUMMARY | 2018-09-26 20:50 | XMS REPORT ---
[...] Medications Results No Known Results Summary Purpose [employer] Submission
--- OUTSIDE RECORDS SUMMARY | 2018-09-26 20:50 | XMS REPORT ---
:1960 Author Organization [facility] Team Providers Name Role Phone [...] End Status Dosage System Date Date Carvedilol [facility] [id number] 25 MG Active TAKE 1 TABLET BY MOUTH TWICE A DAY Creon [facility] [id number] Jul 17, Active take by UNIT Orally 2019 mouth 1 tab with each capsule 3 meal times a day as directed Tylenol with NDC 78449435139 300-30 MG Active 2 tablet as Codeine #3 Orally every 6 needed hrs Albuterol ND 57051641330 108 (90 Base) Apr 29, Active 1 puff Sulfate HFA MCG/ACT 2014 Inhalation every 6 hrs [place] ND 48289787492 7.5-325 MG Apr 29, Active 1 tablet as Orally TID-prn 2013 needed pain Famotidine ND 04415830370 20 MG Orally Active 1 tablet at every 12 hrs bedtime Clonazepam ND 68431433098 2 MG Active TAKE 1 TABLET BY MOUTH TWICE A DAY Dicyclomine HCl ND 22633181690 20 MG Orally Active 1 tablet Four times a day Ondansetron HCl ND 83299223567 4 MG Orally Active 1 tablet Twice a day ProAir [facility] 37107784928 108 (90 Base) Apr 28, Active 2 puffs as RespiClick MCG/ACT 2014 needed Inhalation q 4-6 h prn Aspirin 81 ND 26878641684 81 MG Orally September Active 1 tablet Once a day 2016 Protonix ND 24371174990 40 MG Orally Active 1 tablet Once a day Ventolin HFA ND 68747513112 108 (90 Base) September Active 2 puffs MCG/ACT 2017 Inhalation TID X 5 days Results No Known Results Summary Purpose eClinicalWorks Submission
--- OUTSIDE RECORDS SUMMARY | 2018-09-26 20:50 | XMS REPORT ---
:1960 [facility] Providers Name Role Phone [...] End Status Dosage System Date Date Albuterol [facility] 93198915351 108 (90 Base) Apr 29, Active 1 puff Sulfate HFA MCG/ACT 2014 Inhalation every 6 hrs Clonazepam [facility] 62381006659 2 MG Orally BID Apr 28, Active 1 tablet 2015 Ventolin HFA [facility] 58864556783 108 (90 Base) September Active 2 puffs MCG/ACT 2017 Inhalation TID X 5 days [place] [facility] 37553501653 7.5-325 MG Apr 29, Active 1 tablet as Orally TID-prn 2013 needed pain ProAir [facility] 16954738148 108 (90 Base) Apr 28, Active 2 puffs as RespiClick MCG/ACT 2014 needed Inhalation q 4-6 h prn Creon [facility] 86890206197 [id number] UNIT Jul 17, Active take by Orally 2018 mouth 1 with each meal capsule 3 times a day as directed Carvedilol [facility] 60245352756 25 MG Orally BID Active take 1 tablet by mouth twice a day Protonix [facility] 63218108421 40 MG Orally Active 1 tablet Once a day Aspirin 81 [facility] 53329696209 81 MG Orally September Active 1 tablet Once a day 2016 Results No Known Results Summary Purpose eClinicalWorks Submission
[2018-09-26 21:45] LABS: Absolute Lymphocytes (CBC) 2.6 K/uL (0.7-4.9); Absolute Monocytes 0.5 K/uL (0.1-1.3); Absolute Neutrophil 4.2 K/uL (1.8-8.0); Basophils % 0.4 % (0-1.3); Eosinophils % 1.5 % (0-4.4); Hematocrit 44.2 % (39.6-49.0); Lymphocytes % 34.8 % (15.3-44.8); MPV 8.1 fL (7.6-11.3); Monocytes % 6.9 % (3.3-12.3); RBC Red Blood Cell Count 4.81 M/uL (4.33-5.43)
[2018-09-26] MEDS ORDERED: NA CHLORIDE 0.9% 1,000 ML ONE (21:54)
[2018-09-26 22:08] LABS: Albumin 3.9 g/dL (3.4-5.0); Bilirubin Direct 0.2 mg/dL (0-0.2); Bilirubin Total 0.9 mg/dL (0.2-1.0); Potassium 4.8 mmol/L (3.5-5.1); Protein, Total 7.1 g/dL (6.4-8.2)
[2018-09-26 22:08] LABS: Urine Blood TRACE (NEG); Urine Glucose NEGATIVE (NEG); Urine Protein NEGATIVE (NEG); Urine Specific Gravity 1.015 (1.005-1.030)
--- NOTE | 2018-09-27 01:35 | EDPHYS ---
Physician Documentation [facility] Name: Alfredo Escobar Age: 57 yrs Sex: Male : 1960 Arrival Date: 09/26/2018 Time: 20:49 Bed 8 Private MD: Kayode Sam ED Physician Geronimo Campbell HPI: 09/26 22:06 This 57 yrs old Male presents to ER via Ambulatory with complaints of rn Abdominal Cramping, Bloody Stools. 22:06 The patient presents with abdominal pain in the lower abdomen. Onset: The rn symptoms/episode began/occurred at an unknown time. The symptoms do not radiate. Associated signs and symptoms: Pertinent positives: blood in stools, constipation, Pertinent negatives: diarrhea, dysuria, fever, testicular pain, vomiting blood. The symptoms are described as achy, crampy. Modifying factors: The symptoms are alleviated by nothing, the symptoms are aggravated by nothing. Severity of pain: At its worst the pain was mild in the emergency department the pain is unchanged. The patient has experienced similar episodes in the past. Reports abd cramping assoc with nausea, decreased appetite, constipation, used warm water bottle as enema to help him go to bathroom, since then has been having the abd cramping and noticed bright red blood when wiped, not mixed with stool. . Historical: - Allergies: 21:31 Bactrim; lp1 21:31 Iodinated Contrast Media - IV Dye; lp1 21:31 Iodine; lp1 21:31 Keflex; lp1 21:31 Latex, Natural Rubber; lp1 21:31 Levaquin; lp1 21:31 promethazine HCl; lp1 21:31 Toradol; lp1 21:31 Vancomycin; lp1 - Home Meds: 21:31 Ventolin HFA 90 mcg/actuation Nebulizer HFAA 2 puffs every 8 hours [Active]; aspirin 81 lp1 mg oral TbEC once daily [Active]; [place] 10-325 mg oral tab four times a day [Active]; carvedilol 25 mg oral tab 2 times per day [Active]; pantoprazole 40 mg oral TbEC once daily [Active]; clonazepam 2 mg oral tab 2 times per day [Active]; - PMHx: 21:31 Anxiety; Arthritis; Crohn's; GERD; Pancreatitis; PTSD; lp1 - PSHx: 21:31 Hernia repair; "multiple GI surgeries"; lp1 - Immunization history:: Adult Immunizations up to date. - Social history:: Smoking status: Patient/guardian denies using tobacco. - Ebola Screening: : No symptoms or risks identified at this time. - Family history:: not pertinent. - Hospitalizations: : No recent hospitalization is reported. ROS: 22:06 Constitutional: Negative for fever, chills, and weight loss, Eyes: Negative for injury, rn pain, redness, and discharge, ENT: Negative for injury, pain, and discharge, Neck: Negative for injury, pain, and swelling, Cardiovascular: Negative for chest pain, palpitations, and edema, Respiratory: Negative for shortness of breath, cough, wheezing, and pleuritic chest pain, Abdomen/GI: + abd cramping, constipation MS/Extremity: Negative for injury and deformity, Skin: Negative for injury, rash, and discoloration, Neuro: + generalized weakness Exam: 22:06 Constitutional: This is a well developed, well nourished patient who is awake, alert, rn and in no acute distress. Head/Face: Normocephalic, atraumatic. Eyes: Pupils equal round and reactive to light, extra-ocular motions intact. Lids and lashes normal. Conjunctiva and sclera are non-icteric and not injected. Cornea within normal limits. Periorbital areas with no swelling, redness, or edema. ENT: MMM Cardiovascular: bradycardic, regular, no murmur Respiratory: Lungs have equal breath sounds bilaterally, clear to auscultation. No increased work of breathing, no retractions or nasal flaring. Abdomen/GI: Soft, non-tender. Mild LLQ tenderness, no evidence of hernia or masses MS/ Extremity: Pulses equal, no cyanosis. Neurovascular intact. Full, normal range of motion. Equal circumference. Neuro: Awake and alert, GCS 15, oriented to person, place, time, and situation. Cranial nerves II-XII grossly intact. Motor strength 5/5 in all extremities. Sensory grossly intact. Vital Signs: 21:28 BP 152 / 91; Pulse 66; Resp 18; Temp 98.3(O); Pulse Ox 100% on R/A; Weight 90.72 kg; lp1 Height 5 ft. 8 in. (172.72 cm); Pain 3/10; 22:06 BP 134 / 80; Pulse 48; Resp 18; Pulse Ox 98% on R/A; lp1 23:00 BP 137 / 74; Pulse 45; Resp 16; Pulse Ox 100% on R/A; lp1 09/27 00:00 BP 144 / 82; Pulse 53; Resp 18; Pulse Ox 99% on R/A; lp1 01:00 BP 148 / 76; Pulse 54; Resp 16; Pulse Ox 99% on R/A; lp1 02:00 BP 138 / 69; Pulse 49; Resp 16; Pulse Ox 99% on R/A; lp1 03:42 BP 128 / 60; Pulse 50; Resp 18; Pulse Ox 100% on R/A; ea 09/26 21:28 Body Mass Index 30.41 (90.72 kg, 172.72 cm) lp1 MDM: 09/26 21:12 Patient medically screened. rn 09/27 01:32 Differential diagnosis: diverticulitis, non-specific abd pain, Ureterolithiasis, rn constipation. Data reviewed: vital signs, nurses notes, lab test result(s), radiologic studies, CT scan, and as a result, I will discharge patient. Counseling: I had a detailed discussion with the patient and/or guardian regarding: the historical points, exam findings, and any diagnostic results supporting the discharge/admit diagnosis, lab results, radiology results, the need for outpatient follow up, to return to the emergency department if symptoms worsen or persist or if there are any questions or concerns that arise at home. Special discussion: Based on the patient's Hx, exam, and Dx evaluation, there is no indication for emergent surgery or inpatient Tx. It is understood by the patient/guardian that if the Sx's persist or worsen they need to return immediately for re-evaluation. I discussed with the patient/guardian in detail that at this point there is no indication for admission to the hospital. It is understood, however, that if the symptoms persist or worsen the patient needs to return immediately for re-evaluation. Based on the history and exam findings, there is no indication for further emergent testing or inpatient evaluation. I discussed with the patient/guardian the need to see the gas desulfurizer for further evaluation of the symptoms. I discussed with the patient/guardian the need to see the primary care provider for further evaluation of the symptoms. ED course: Pt with constipation, normal h/h, no acute findings on ct abdomen, most likely hemorrhoidal bleeding given normal hemoglobin and blood only when wiping, recommend stool softeners and laxative with fluids.. 09/26 21:23 Order name: Basic Metabolic Panel; Complete Time: 22:15 rn 09/26 21:23 Order name: CBC with Diff; Complete Time: 22:15 rn 09/26 21:23 Order name: Hepatic Function; Complete Time: 22:15 rn 09/26 21:23 Order name: Lipase; Complete Time: 22:15 rn 09/26 22:01 Order name: Urine Dipstick--Ancillary (enter results); Complete Time: 22:15 mw2 09/26 21:23 Order name: IV Saline Lock; Complete Time: 21:52 rn 09/26 21:23 Order name: Labs collected and sent; Complete Time: 21:52 rn 09/26 21:23 Order name: Urine Dipstick-Ancillary (obtain specimen); Complete Time: 22:03 rn 09/26 21:42 Order name: Abdomen EDMS Administered Medications: 09/26 21:45 Drug: NS 0.9% 1000 ml Route: IV; Rate: 1000 ml; Site: right antecubital; lp1 23:15 Follow up: IV Status: Completed infusion; IV Intake: 1000ml lp1 09/27 02:05 Drug: Magnesium Citrate Liquid 300 ml Route: PO; lp1 02:38 Follow up: Response: No adverse reaction lp1 02:50 Drug: Fleet Enema 133 ml Route: AK; lp1 03:31 Follow up: Response: Marked relief of symptoms lp1 Disposition: 09/27/18 01:34 Discharged to Home. Impression: Dehydration, Constipation, unspecified. - Condition is Stable. - Discharge Instructions: Constipation, Adult, Dehydration, Adult. - Medication Reconciliation Form, Thank You Letter, Antibiotic Education, Prescription Opioid Use form. - Follow up: Private Physician; When: As needed; Reason: Recheck today's complaints, Re-evaluation by your physician. - Problem is new. - Symptoms have improved. Signatures: Dispatcher [employer] EDMS Geronimo Campbell MD MD rn Pena, Laura, RN RN lp1 Marta Gracia RN MARY thomas Corrections: (The following items were deleted from the chart) 09/26 21:42 21:24 Abdomen Pelvis W Con+CT.RAD.BRZ ordered. EDMS EDMS 09/27 03:43 01:34 09/27/2018 01:34 Discharged to Home. Impression: Dehydration; Constipation, ea unspecified. Condition is Stable. Forms are Medication Reconciliation Form, Thank You Letter, Antibiotic Education, Prescription Opioid Use. Follow up: Private Physician; When: As needed; Reason: Recheck today's complaints, Re-evaluation by your physician. Problem is new. Symptoms have improved. rn
--- NOTE | 2018-09-27 01:35 | ER ---
Nurse's Notes [facility] Name: Alfredo Escobar Age: 57 yrs Sex: Male : 1960 Arrival Date: 09/26/2018 Time: 20:49 Bed 8 Private MD: Kayode Sam Diagnosis: Dehydration;Constipation, unspecified Presentation: 09/26 21:26 Presenting complaint: Patient states: "I've been having hot flashes, fatigue, feeling lp1 shaky, weight loss, and I feel like I'm constipated"; Patient states small BM's today, states pain to pelvic area and LLQ of abdomen; Denies any vomiting; States today after small BM there was blood when he wiped himself. Transition of care: patient was not received from another setting of care. Onset of symptoms was September 26, 2018. Risk Assessment: Do you want to hurt yourself or someone else? Patient reports no desire to harm self or others. Initial Sepsis Screen: Does the patient meet any 2 criteria? No. Patient's initial sepsis screen is negative. Does the patient have a suspected source of infection? No. Patient's initial sepsis screen is negative. Care prior to arrival: None. 21:26 Method Of Arrival: Ambulatory lp1 21:26 Acuity: BUCKY 3 lp1 Historical: - Allergies: 21:31 Bactrim; lp1 21:31 Iodinated Contrast Media - IV Dye; lp1 21:31 Iodine; lp1 21:31 Keflex; lp1 21:31 Latex, Natural Rubber; lp1 21:31 Levaquin; lp1 21:31 promethazine HCl; lp1 21:31 Toradol; lp1 21:31 Vancomycin; lp1 - Home Meds: 21:31 Ventolin HFA 90 mcg/actuation Nebulizer HFAA 2 puffs every 8 hours [Active]; aspirin 81 lp1 mg oral TbEC once daily [Active]; [place] 10-325 mg oral tab four times a day [Active]; carvedilol 25 mg oral tab 2 times per day [Active]; pantoprazole 40 mg oral TbEC once daily [Active]; clonazepam 2 mg oral tab 2 times per day [Active]; - PMHx: 21:31 Anxiety; Arthritis; Crohn's; GERD; Pancreatitis; PTSD; lp1 - PSHx: 21:31 Hernia repair; "multiple GI surgeries"; lp1 - Immunization history:: Adult Immunizations up to date. - Social history:: Smoking status: Patient/guardian denies using tobacco. - Ebola Screening: : No symptoms or risks identified at this time. - Family history:: not pertinent. - Hospitalizations: : No recent hospitalization is reported. Screenin:31 Abuse screen: Denies threats or abuse. Denies injuries from another. Nutritional lp1 screening: No deficits noted. Tuberculosis screening: No symptoms or risk factors identified. Fall Risk None identified. Assessment: 21:30 General: Appears in no apparent distress. Behavior is anxious. Pain: Complains of pain lp1 in left lower quadrant and suprapubic area Quality of pain is described as crampy. Neuro: Level of Consciousness is awake, alert, obeys commands, Oriented to person, place, time, situation, Gait is steady. Cardiovascular: Patient's skin is warm and dry. Respiratory: Respiratory effort is even, unlabored. GI: Abdomen is non-distended, Bowel sounds present X 4 quads. Abdomen is tender to palpation in left lower quadrant Reports constipation, bloody stool. : Reports urinary frequency. EENT: No signs and/or symptoms were reported regarding the EENT system. Derm: Skin is pink, warm \\T\\ dry. Musculoskeletal: Circulation, motion, and sensation intact. 22:00 Reassessment: CT notified of patient completing oral contrast. lp1 23:00 Reassessment: Patient appears in no apparent distress at this time. Patient and/or lp1 family updated on plan of care and expected duration. Pain level reassessed. Patient is alert, oriented x 3, equal unlabored respirations, skin warm/dry/pink. 09/27 00:00 Reassessment: Patient appears in no apparent distress at this time. Patient and/or lp1 family updated on plan of care and expected duration. Pain level reassessed. Patient waiting for CT results. 01:00 Reassessment: Patient appears in no apparent distress at this time. No changes from lp1 previously documented assessment. Patient and/or family updated on plan of care and expected duration. Pain level reassessed. 02:00 Reassessment: Patient appears in no apparent distress at this time. Patient states some lp1 discomfort from feeling of constipation Patient states feeling better. 02:37 Reassessment: Patient states small amount of BM after drinking Mag Citrate; Will lp1 perform fleet enema independently. 02:57 Reassessment: Patient states relief with fleet enema, sitting on bsc at this time. lp1 03:30 Reassessment: Patient states relief at this time Patient states feeling better. Patient lp1 states symptoms have improved. 03:41 Reassessment: Patient and/or family updated on plan of care and expected duration. Pain ea level reassessed. Patient is alert, oriented x 3, equal unlabored respirations, skin warm/dry/pink. Discharge instruction given to patient, verbalized the understanding of instruction. No s/s of pain or discomfort noted at this time. Patient states feeling better. Patient states symptoms have improved. Vital Signs: 09/26 21:28 BP 152 / 91; Pulse 66; Resp 18; Temp 98.3(O); Pulse Ox 100% on R/A; Weight 90.72 kg; lp1 Height 5 ft. 8 in. (172.72 cm); Pain 3/10; 22:06 BP 134 / 80; Pulse 48; Resp 18; Pulse Ox 98% on R/A; lp1 23:00 BP 137 / 74; Pulse 45; Resp 16; Pulse Ox 100% on R/A; lp1 09/27 00:00 BP 144 / 82; Pulse 53; Resp 18; Pulse Ox 99% on R/A; lp1 01:00 BP 148 / 76; Pulse 54; Resp 16; Pulse Ox 99% on R/A; lp1 02:00 BP 138 / 69; Pulse 49; Resp 16; Pulse Ox 99% on R/A; lp1 03:42 BP 128 / 60; Pulse 50; Resp 18; Pulse Ox 100% on R/A; ea 09/26 21:28 Body Mass Index 30.41 (90.72 kg, 172.72 cm) lp1 ED Course: 09/26 20:49 Patient arrived in ED. am2 20:49 Kayode Sam DO is Private Physician. am2 21:07 Sophy Worley, MARY is Primary Nurse. lp1 21:12 Geronimo Campbell MD is Attending Physician. rn 21:28 Triage completed. lp1 21:28 Arm band placed on left wrist. lp1 21:31 Patient has correct armband on for positive identification. Placed in gown. Call light lp1 in reach. Pulse ox on. NIBP on. 21:40 Inserted saline lock: 20 gauge in right antecubital area, using aseptic technique. lp1 Blood collected. 23:24 No provider procedures requiring assistance completed. lp1 09/27 00:34 Abdomen In Process Unspecified. EDMS 03:31 IV discontinued, No redness/swelling at site. Pressure dressing applied. lp1 Administered Medications: 09/26 21:45 Drug: NS 0.9% 1000 ml Route: IV; Rate: 1000 ml; Site: right antecubital; lp1 23:15 Follow up: IV Status: Completed infusion; IV Intake: 1000ml lp1 09/27 02:05 Drug: Magnesium Citrate Liquid 300 ml Route: PO; lp1 02:38 Follow up: Response: No adverse reaction lp1 02:50 Drug: Fleet Enema 133 ml Route: IN; lp1 03:31 Follow up: Response: Marked relief of symptoms lp1 Intake: 09/26 23:15 IV: 1000ml; Total: 1000ml. lp1 Outcome: 09/27 01:34 Discharge ordered by . rn 03:31 Discharged to home ambulatory. lp1 03:31 Condition: good 03:31 Discharge instructions given to patient, Instructed on discharge instructions, follow up and referral plans. Demonstrated understanding of instructions, follow-up care. 03:43 Patient left the ED. ea Signatures: Dispatcher [employer] EDMS Geronimo Campbell MD MD rn Pena, Laura RN RN lp1 Sarah Armstrong Elena, RN RN ea Corrections: (The following items were deleted from the chart) 09/26 21:28 21:23 Presenting complaint: lp1 lp1
[2018-09-27] MEDS ORDERED: MAGNESIUM CITRATE 300 ML BOT ONE (01:55)
[2018-09-27] MEDS ORDERED: FLEET ENEMA ADULT PR ONE (02:03)
[2018-09-27 04:35] VITALS: TEMP 98.3
[2018-09-27 04:44] VITALS: BP 128/60; O2SAT 100
--- NOTE | 2018-09-27 11:17 | RAD REPORT ---
EXAM DESCRIPTION: CT - Abdomen Pelvis Wo Contrast - 09/27/2018 6:54 am CLINICAL HISTORY: The patient is 57 years old and is Male; constipation, rectal bleeding TECHNIQUE: Axial computed tomography images of the abdomen and pelvis without intravenous contrast. Sagittal and coronal reformatted images were created and reviewed. This CT exam was performed usi ng one or more of the following dose reduction techniques: automated exposure control, adjustment o f the mA and/or kV according to patient size, and/or use of iterative reconstruction technique. COMPARISON: CT of the abdomen and pelvis June 16, 2018 FINDINGS: LUNG BASES: Unremarkable. No mass. No consolidation. ABDOMEN: LIVER: The liver is mildly fatty and prominent. GALLBLADDER AND BILE DUCTS: No calcified stones. No ductal dilation. PANCREAS: Unremarkable. No ductal dilation. SPLEEN: Several splenic granuloma are present. ADRENALS: Unremarkable. No mass. KIDNEYS AND URETERS: A 1.8 cm simple left renal cyst is present. No follow-up is necessary. No o bstructing renal or ureteral calculus is seen. There is no hydronephrosis or hydroureter of either ki dney. STOMACH AND BOWEL: The stomach is distended with contrast and air. The small bowel is normal in caliber. A moderate amount of stool is present throughout the colon. No evidence of bowel obstruction . No significant bowel wall thickening. Colonic diverticulosis is noted, without associated inflammat ory changes to suggest diverticulitis. PELVIS: APPENDIX: The appendix is normal in caliber without surrounding inflammation. BLADDER: The bladder is well distended. No stones. REPRODUCTIVE: Unremarkable as visualized. ABDOMEN and PELVIS: INTRAPERITONEAL SPACE: Unremarkable. No free air. No significant fluid collection. BONES/JOINTS: Minimal degenerative change of the spine is present. SOFT TISSUES: The soft tissues are normal. VASCULATURE: Unremarkable. No abdominal aortic aneurysm. LYMPH NODES: Unremarkable. No enlarged lymph nodes. IMPRESSION: Colonic diverticulosis without evidence of diverticulitis. Moderate stool burden. No obs truction. Electronically signed by: Gina Fraser MD 09/27/2018 12:39 AM CDT Due to temporary technical issues with the PACS/Fluency reporting system, reports are being signed by the in house radiologist as a courtesy to ensure prompt reporting. The interpreting radiologist is f ully responsible for the content of the report.
== END 2018-09-27 03:43 | disposition home or self-care (01) ==
LOC: ER 20:47
DX: E86.0 Dehydration (principal); K59.00 Constipation, unspecified; F41.9 Anxiety disorder, unspecified; K50.90 Crohn's disease, unspecified, without complications; K21.9 Gastro-esophageal reflux disease without esophagitis; F43.10 Post-traumatic stress disorder, unspecified; Z88.8 Allergy status to other drugs, medicaments and biological substances; Z88.1 Allergy status to other antibiotic agents; Z91.041 Radiographic dye allergy status; Z91.040 Latex allergy status
CPT/HCPCS: 85025; 80048; 36415; 80076; 81003; 83690; 74176; 96360; 99284; J7030

== ENCOUNTER 2018-11-10 22:33 | Emergency (ER) | payer OTHER ==
--- OUTSIDE RECORDS SUMMARY | 2018-11-10 22:35 | XMS REPORT ---
[...] Medications Results No Known Results Summary Purpose [employer] Submission
--- OUTSIDE RECORDS SUMMARY | 2018-11-10 22:35 | XMS REPORT | Continuity of Care Document ---
:1960 Author Organization Interface Problems Problem Status Onset Classification Date Comments Source Date Reported HTN - Active Problem 11/02/2018 [facility] Memory loss Active Problem 11/02/2018 [facility] Neck pain Active Problem 11/02/2018 [facility] Paresthesias Active Problem 11/02/2018 [facility] Simple obesity Active Problem 11/02/2018 [facility] Tremor Active Problem 11/02/2018 [facility] Medications Medication Details Route Status Patient Ordering Order Source Instructions Provider Date pantoprazole 40 40 mg=1 Active [facility] mg oral enteric tab, PO, 019 [facility] coated tablet Daily, # 30 tab, 0 Refill(s) carvedilol 25 mg 25 mg=1 Active [facility] oral tablet tab, PO, 019 [facility] BID, # 180 tab, 0 Refill(s) Acetaminophen 1 tab, PO, Active [facility] 325 MG / QID, 0 019 Neuro Hydrocodone Refill(s) Bitartrate 10 MG Oral Tablet [[place] 10/325] Clonazepam 2 MG 2 mg=1 Active [facility] Oral Tablet tab, PO, 019 Neuro [Klonopin] BID, # 60 tab, 0 Refill(s) Allergies, Adverse Reactions, Alerts Substance Category Reaction Severity Reaction Status Date Comments Source type Reported Lev[facility]quin [facility] Immunizations Immunization Date Given Site Status Last Updated Comments Source Results Order Results Value Reference Date Interpretation Comments Source Name Range Vital Signs Vital Sign Value Date Comments Source BMI Calculated 30.47 09/26/2018 [facility] Weight 90.909 09/26/2018 [facility] Height 172.72 cm 09/26/2018 [facility] Heart Rate 58 09/26/2018 [facility] Respitory Rate 16 09/26/2018 [facility] Systolic (mm Hg) 159 09/26/2018 [facility] Diastolic (mm Hg) 88 09/26/2018 [facility] Encounters Location Location Encounter Encounter Reason Attending ADM DC Status Source Details Type Number For Provider Date Date Visit [facility] [id number] [place] 09/26 09/27 [facility] [place] [facility] [place] [facility] [id number] [place] 10/31 [facility] [place] [facility] [id number] [place] 10/31 10/31 [facility] [place] [facility] Pre-Reg [facility] [place] Procedures Procedure Code Date Perfomer Comments Source
--- OUTSIDE RECORDS SUMMARY | 2018-11-10 22:35 | XMS REPORT ---
[...] Dosage System Date Bromfed DM [facility] 46228237858 30-2-10 MG/5ML September Active 10 ml as Orally every 6 2017 needed hrs ProAir [facility] 27373900195 108 (90 Base) Apr 28, Active 2 puffs as RespiClick MCG/ACT 2014 needed Inhalation q 4-6 h prn Ventolin HFA [facility] 73069140792 108 (90 Base) September Active 2 puffs MCG/ACT 2017 Inhalation TID X 5 days Aspirin 81 ND 76103718825 81 MG Orally September Active 1 tablet Once a day 2016 Protonix ND 55862652287 40 MG Orally Active 1 tablet Once a day [place] [facility] 97736257286 10-325 MG Apr 29, Active 1 tablet as Orally TID-prn 2013 needed pain Albuterol [facility] 06722131556 108 (90 Base) Apr 29, Active 1 puff Sulfate HFA MCG/ACT 2014 Inhalation every 6 hrs Losartan ND 82147313481 50 MG Orally August Active 1 tablet Potassium Once a day 2017 Albuterol [facility] 51815848108 (2.5 MG/3ML) September Active 3 ml as Sulfate 0.083% 2017 needed Inhalation Three times a day Clonazepam [facility] 89133670532 2 MG Orally BID Apr 28, Active 1 tablet 2014 Creon [facility] 32344526746 [id number] Active 1 capsule UNIT Orally TID Azithromycin ND 66273415972 250 MG Orally September Active 2 tablets Once a day 2017 on the first day, then 1 tablet daily for 4 days Nebulizer [facility] 51697329677 - September Active as directed 2017 Results No Known Results Summary Purpose eClinicalWorks Submission
--- OUTSIDE RECORDS SUMMARY | 2018-11-10 22:35 | XMS REPORT ---
:1960 [facility] Team Providers Name Role Phone [...] End Status Dosage System Date Date Carvedilol [facility] 69002719663 25 MG Active TAKE 1 TABLET BY MOUTH TWICE A DAY Creon [facility] 51263788728 [id number] Jul 17, Active take by UNIT Orally 2019 mouth 1 tab with each capsule 3 meal times a day as directed Tylenol with NDC 49105719740 300-30 MG Active 2 tablet as Codeine #3 Orally every 6 needed hrs Albuterol ND 71350409414 108 (90 Base) Apr 29, Active 1 puff Sulfate HFA MCG/ACT 2014 Inhalation every 6 hrs [place] ND 42669678667 7.5-325 MG Apr 29, Active 1 tablet as Orally TID-prn 2013 needed pain Famotidine ND 05190232394 20 MG Orally Active 1 tablet at every 12 hrs bedtime Clonazepam ND 92564455286 2 MG Active TAKE 1 TABLET BY MOUTH TWICE A DAY Dicyclomine HCl ND 92578433765 20 MG Orally Active 1 tablet Four times a day Ondansetron HCl ND 61057746843 4 MG Orally Active 1 tablet Twice a day ProAir [facility] 94214906409 108 (90 Base) Apr 28, Active 2 puffs as RespiClick MCG/ACT 2014 needed Inhalation q 4-6 h prn Aspirin 81 ND 65090549599 81 MG Orally September Active 1 tablet Once a day 2016 Protonix ND 57130928430 40 MG Orally Active 1 tablet Once a day Ventolin HFA ND 43125544317 108 (90 Base) September Active 2 puffs MCG/ACT 2017 Inhalation TID X 5 days Results No Known Results Summary Purpose eClinicalWorks Submission
--- OUTSIDE RECORDS SUMMARY | 2018-11-10 22:35 | XMS REPORT | Summary of Care ---
:1960 Author Organization [facility] [place] Address [address] [place] [address]- Encounter HQ Encntr_alias(FIN) [id number] Date(s): 10/31/18 - 10/31/18 [facility] [place] [address] [place] [address]- [phone] Attending Physician: Pio Armstrong MD Referring Physician: Pio Armstrong MD Vital Signs No data available for this section Problem List Condition Effective Dates Status Health Status Informant HTN - Hypertension(Confirmed) Active Memory loss(Confirmed) Active Neck pain(Confirmed) Active Paresthesias(Confirmed) Active Simple obesity(Confirmed) Active Tremor(Confirmed) Active Allergies, Adverse Reactions, Alerts Substance Reaction Severity Status Levaquin Active Medications No data available for this section Results No data available for this section Immunizations No data available for this section Procedures No data available for this section Social History Social History Type Response Smoking Status Former smoker; Type: Cigarettes; Exposure to Tobacco Smoke None ; Cigarette Smoking Last 365 Days No; Reg Smoking Cessation Counseling No entered on: 09/26/18 Assessment and Plan No data available for this section
--- OUTSIDE RECORDS SUMMARY | 2018-11-10 22:35 | XMS REPORT ---
:1960 [facility] Team Providers Name Role Phone [...] End Status Dosage System Date Date Albuterol [facility] 14371801644 108 (90 Base) Apr 29, Active 1 puff Sulfate HFA MCG/ACT 2014 Inhalation every 6 hrs Clonazepam [facility] 09738488919 2 MG Orally BID Apr 28, Active 1 tablet 2015 Ventolin HFA [facility] 64716086196 108 (90 Base) September Active 2 puffs MCG/ACT 2017 Inhalation TID X 5 days [place] [facility] 42442764356 7.5-325 MG Apr 29, Active 1 tablet as Orally TID-prn 2013 needed pain ProAir [facility] 71188494256 108 (90 Base) Apr 28, Active 2 puffs as RespiClick MCG/ACT 2014 needed Inhalation q 4-6 h prn Creon [facility] 15588602136 [id number] UNIT Jul 17, Active take by Orally 2018 mouth 1 with each meal capsule 3 times a day as directed Carvedilol [facility] 55948731068 25 MG Orally BID Active take 1 tablet by mouth twice a day Protonix [facility] 53236023261 40 MG Orally Active 1 tablet Once a day Aspirin 81 [facility] 10676585491 81 MG Orally September Active 1 tablet Once a day 2016 Results No Known Results Summary Purpose eClinicalWorks Submission
--- OUTSIDE RECORDS SUMMARY | 2018-11-10 22:35 | XMS REPORT | Summary of Care ---
:1960 Author Organization [facility] [place] Address [address] [place] [address]- Encounter HQ Leslye(FIN) [id number] Date(s): 09/26/18 - 09/26/18 [facility] [address] [place] [address]- [phone] Discharge Disposition: Home or Self Care Attending Physician: Pio Armstrong MD Vital Signs Most recent to oldest [Reference Range]: 1 Height 172.72 cm (09/26/18 1:51 PM) Blood Pressure [90-140/60-90 mmHg] 159/88 mmHg *HI* (09/26/18 1:51 PM) Respiratory Rate [14-20 BRMIN] 16 BRMIN (09/26/18 1:51 PM) Peripheral Pulse Rate [60-100 bpm] 58 bpm *LOW* (09/26/18 1:51 PM) Weight 90.909 kg (09/26/18 1:51 PM) Body Mass Index 30.47 m2 (09/26/18 1:51 PM) Problem List Condition Effective Dates Status Health Status Informant HTN - Hypertension(Confirmed) Active Memory loss(Confirmed) Active Neck pain(Confirmed) Active Paresthesias(Confirmed) Active Simple obesity(Confirmed) Active Tremor(Confirmed) Active Allergies, Adverse Reactions, Alerts Substance Reaction Severity Status Levaquin Active Medications carvedilol 25 mg oral tablet 25 mg=1 tab, PO, BID, # 180 tab, 0 Refill(s) Start Date: 09/26/18 Status: OrderedKlonoPIN 2 mg oral tablet 2 mg=1 tab, PO, BID, # 60 tab, 0 Refill(s) Start Date: 09/26/18 Status: OrderedNorco 10/325 oral tablet 1 tab, PO, QID, 0 Refill(s) Start Date: 09/26/18 Status: Orderedpantoprazole 40 mg oral enteric coated tablet 40 mg=1 tab, PO, Daily, # 30 tab, 0 Refill(s) Start Date: 09/26/18 Status: Ordered Results No data available for this section [...]
--- OUTSIDE RECORDS SUMMARY | 2018-11-10 22:35 | XMS REPORT ---
[...] Start End Date Status Dosage Date Clonazepam [facility] 08092552619 2 MG Orally twice Active TAKE 1 a day TABLET BY MOUTH TWICE A DAY Results No Known Results Summary Purpose eClinicalWorks Submission
--- OUTSIDE RECORDS SUMMARY | 2018-11-10 22:36 | XMS REPORT ---
[...] End Status Dosage System Date Date Albuterol [facility] 33161016580 108 (90 Base) Apr 29, Active 1 puff Sulfate HFA MCG/ACT 2014 Inhalation every 6 hrs ProAir [facility] 44101446110 108 (90 Base) Apr 28, Active 2 puffs as RespiClick MCG/ACT 2014 needed Inhalation q 4-6 h prn Protonix ND 50126669566 40 MG Orally Active 1 tablet Once a day Famotidine ND 09743724543 20 MG Orally Active 1 tablet every 12 hrs at bedtime Clonazepam ND 83498397565 2 MG Orally Active TAKE 1 twice a day TABLET BY MOUTH TWICE A DAY [place] ND 51429620703 7.5-325 MG Apr 29, Active 1 tablet Orally TID-prn 2013 as needed pain Aspirin 81 ND 45660524769 81 MG Orally September Active 1 tablet Once a day 2016 Ondansetron HCl ND 99333015850 4 MG Orally Active 1 tablet Twice a day Ventolin HFA [facility] 21687496238 108 (90 Base) Active 2 puffs MCG/ACT Inhalation TID X 5 days Carvedilol [facility] 00931998323 25 MG Active TAKE 1 TABLET BY MOUTH TWICE A DAY Dicyclomine HCl ND 63711689315 20 MG Orally Active 1 tablet Four times a day Tylenol with [facility] 35035960475 300-30 MG Orally Active 2 tablet Codeine #3 every 6 hrs as needed Results No Known Results Summary Purpose eClinicalWorks Submission
[2018-11-10 23:45] LABS: Absolute Lymphocytes (CBC) 2.2 K/uL (0.7-4.9); Absolute Monocytes 0.4 K/uL (0.1-1.3); Basophils % 0.4 % (0-1.3); Eosinophils % 1.1 % (0-4.4); Hematocrit 43.8 % (39.6-49.0); Lymphocytes % 33.1 % (15.3-44.8); MPV 8.7 fL (7.6-11.3); Monocytes % 6.5 % (3.3-12.3); RBC Red Blood Cell Count 4.83 M/uL (4.33-5.43)
[2018-11-11 00:07] LABS: Albumin 3.8 g/dL (3.4-5.0); Bilirubin Total 0.8 mg/dL (0.2-1.0); Potassium 4.1 mmol/L (3.5-5.1); Protein, Total 7.1 g/dL (6.4-8.2)
[2018-11-11] MEDS ORDERED: FLEET ENEMA ADULT PR ONE (00:19)
[2018-11-11] MEDS ORDERED: MAGNESIUM CITRATE 300 ML BOT ONE (00:19)
--- NOTE | 2018-11-11 00:19 | ER ---
Nurse's Notes [facility] Name: Alfredo Escobar Age: 58 yrs Sex: Male : 1960 Arrival Date: 11/10/2018 Time: 22:39 Bed 24 Private MD: Diagnosis: Constipation;Abdominal pain Presentation: 11/10 22:41 Presenting complaint: Patient states: lower abdominal cramping and nausea x 3 days, tl2 denies diarrhea and vomiting. Transition of care: patient was not received from another setting of care. Onset of symptoms was November 07, 2018. Risk Assessment: Do you want to hurt yourself or someone else? Patient reports no desire to harm self or others. Initial Sepsis Screen: Does the patient meet any 2 criteria? No. Patient's initial sepsis screen is negative. Does the patient have a suspected source of infection? No. Patient's initial sepsis screen is negative. Care prior to arrival: None. 22:41 Method Of Arrival: Ambulatory tl2 22:41 Acuity: BUCKY 3 tl2 Historical: - Allergies: 22:43 Bactrim; tl2 22:43 Iodinated Contrast Media - IV Dye; tl2 22:43 Iodine; tl2 22:43 Keflex; tl2 22:43 Latex, Natural Rubber; tl2 22:43 Levaquin; tl2 22:43 promethazine HCl; tl2 22:43 Toradol; tl2 22:43 Vancomycin; tl2 - Home Meds: 22:43 aspirin 81 mg Oral TbEC once daily [Active]; carvedilol 25 mg Oral tab 2 times per day tl2 [Active]; clonazepam 2 mg Oral tab 2 times per day [Active]; [place] 10-325 mg Oral tab four times a day [Active]; pantoprazole 40 mg Oral TbEC once daily [Active]; Ventolin HFA 90 mcg/actuation Nebulizer HFAA 2 puffs every 8 hours [Active]; - PMHx: 22:43 Anxiety; Arthritis; Crohn's; GERD; Pancreatitis; PTSD; tl2 - PSHx: 22:43 Hernia repair; tl2 - Immunization history:: Adult Immunizations up to date. - Social history:: Smoking status: Patient/guardian denies using tobacco. - Ebola Screening: : No symptoms or risks identified at this time. Screenin:44 Abuse screen: Denies threats or abuse. Nutritional screening: No deficits noted. tl2 Tuberculosis screening: No symptoms or risk factors identified. Fall Risk None identified. Assessment: 23:00 General: Appears in no apparent distress. comfortable, Behavior is calm, cooperative, ca1 appropriate for age. Pain: Complains of pain in right lower quadrant and left lower quadrant Pain radiates to pelvis Pain currently is 6 out of 10 on a pain scale. Pain began 2-3 days ago. Neuro: Level of Consciousness is awake, alert, obeys commands, Oriented to person, place, time, situation. Cardiovascular: Heart tones S1 S2 present Capillary refill < 3 seconds Patient's skin is warm and dry. Respiratory: Airway is patent Respiratory effort is even, unlabored, Respiratory pattern is regular, symmetrical, Breath sounds are clear bilaterally. GI: Abdomen is round non-distended, Bowel sounds present X 4 quads. Abd is soft and non tender X 4 quads. GI: Reports nausea. : No deficits noted. No signs and/or symptoms were reported regarding the genitourinary system. EENT: No deficits noted. No signs and/or symptoms were reported regarding the EENT system. Derm: Skin is intact, is healthy with good turgor, Skin is pink, warm \T\ dry. Musculoskeletal: Circulation, motion, and sensation intact. Capillary refill < 3 seconds, Range of motion: intact in all extremities. 23:39 Reassessment: Pt to Xray. ca1 23:59 Reassessment: Patient appears in no apparent distress at this time. Patient and/or ca1 family updated on plan of care and expected duration. Pain level reassessed. Patient is alert, oriented x 3, equal unlabored respirations, skin warm/dry/pink. 11/11 00:29 Reassessment: Patient appears in no apparent distress at this time. Patient is alert, ca1 oriented x 3, equal unlabored respirations, skin warm/dry/pink. Reports of BM. Vital Signs: 11/10 22:43 BP 152 / 76; Pulse 59; Resp 18; Temp 98.1(O); Pulse Ox 96% ; Weight 74.84 kg; Height 5 tl2 ft. 8 in. (172.72 cm); Pain 8/10; 23:18 BP 165 / 87; Pulse 62; Resp 18 S; Pulse Ox 100% on R/A; ca1 23:59 BP 148 / 84; Pulse 54; Resp 18 S; Temp 98(O); Pulse Ox 99% ; ca1 22:43 Body Mass Index 25.09 (74.84 kg, 172.72 cm) tl2 ED Course: 22:39 Patient arrived in ED. tl2 22:42 Triage completed. tl2 22:43 Arm band placed on right wrist. tl2 22:57 Chelo Nolasco, MARY is Primary Nurse. ca1 23:00 Patient has correct armband on for positive identification. Placed in gown. Bed in low ca1 position. Call light in reach. Side rails up X 1. Pulse ox on. NIBP on. Warm blanket given. 23:00 No provider procedures requiring assistance completed. ca1 23:14 Deric Black MD is Attending Physician. ps1 23:35 Inserted saline lock: 22 gauge in right antecubital area, using aseptic technique. ca1 Blood collected. 23:51 Patient moved to radiology via wheelchair. kp1 23:52 X-ray completed. Patient tolerated procedure well. kp1 23:54 Abdomen Acute Series XRAY In Process Unspecified. EDMS 06/09 00:17 Nirmala Concepcion MD is Referral Physician. ps1 00:34 IV discontinued, intact, bleeding controlled, No redness/swelling at site. Pressure ca1 dressing applied. Administered Medications: 00:09 Drug: Magnesium Citrate Liquid 300 ml Route: PO; ca1 00:30 Follow up: Response: No adverse reaction; No adverse reaction. BM x 1 ca1 00:15 Drug: Fleet Enema 133 ml Route: OR; ca1 00:30 Follow up: Response: No adverse reaction; No adverse reaction, BM x 1 ca1 Outcome: 00:19 Discharge ordered by . ps1 00:34 Discharged to home ambulatory. ca1 00:34 Condition: stable 00:34 Discharge instructions given to patient, Instructed on discharge instructions, follow up and referral plans. medication usage, Demonstrated understanding of instructions, follow-up care, medications, Prescriptions given X 1. 00:35 Patient left the ED. ca1 Signatures: Dispatcher [employer] EDVT Zeina Carrasco RN RN tl2 Heather Chaudhary kp1 Deric Black MD MD ps1 Chelo Nolasco RN RN ca1
--- NOTE | 2018-11-11 00:20 | EDPHYS ---
Physician Documentation [facility] Name: Alfredo Escobar Age: 58 yrs Sex: Male : 1960 Arrival Date: 11/10/2018 Time: 22:39 Bed 24 Private MD: ED Physician Deric Black HPI: 11/10 23:43 This 58 yrs old Male presents to ER via Ambulatory with complaints of Abd ps1 Pain > 50 y/o. 23:43 patient seen and evaluated multiple times for same. Hx of chronic pancreatitis, ps1 chrones, and abdominal pain. Was seen recently in September and was diagnosed with constipation. He reportedly had an inconclusive EDG/Colonoscopy per [facility] 07/07 incomplete prep. Patient states that he has non-specific abdominal pain. Pain rated as moderate. States that he hasnt had a stool in a couple of days. . Historical: - Allergies: 22:43 Bactrim; tl2 22:43 Iodinated Contrast Media - IV Dye; tl2 22:43 Iodine; tl2 22:43 Keflex; tl2 22:43 Latex, Natural Rubber; tl2 22:43 Levaquin; tl2 22:43 promethazine HCl; tl2 22:43 Toradol; tl2 22:43 Vancomycin; tl2 - Home Meds: 22:43 aspirin 81 mg Oral TbEC once daily [Active]; carvedilol 25 mg Oral tab 2 times per day tl2 [Active]; clonazepam 2 mg Oral tab 2 times per day [Active]; [place] 10-325 mg Oral tab four times a day [Active]; pantoprazole 40 mg Oral TbEC once daily [Active]; Ventolin HFA 90 mcg/actuation Nebulizer HFAA 2 puffs every 8 hours [Active]; - PMHx: 22:43 Anxiety; Arthritis; Crohn's; GERD; Pancreatitis; PTSD; tl2 - PSHx: 22:43 Hernia repair; tl2 - Immunization history:: Adult Immunizations up to date. - Social history:: Smoking status: Patient/guardian denies using tobacco. - Ebola Screening: : No symptoms or risks identified at this time. ROS: 23:43 Constitutional: Negative for fever, chills, and weight loss, Eyes: Negative for injury, ps1 pain, redness, and discharge, ENT: Negative for injury, pain, and discharge, Cardiovascular: Negative for chest pain, palpitations, and edema, Respiratory: Negative for shortness of breath, cough, wheezing, and pleuritic chest pain, MS/Extremity: Negative for injury and deformity, Skin: Negative for injury, rash, and discoloration, Neuro: Negative for headache, weakness, numbness, tingling, and seizure. 23:43 Abdomen/GI: Positive for abdominal pain, constipation. Exam: 23:43 Constitutional: This is a well developed, well nourished patient who is awake, alert, ps1 and in no acute distress. Head/Face: Normocephalic, atraumatic. Eyes: Pupils equal round and reactive to light, extra-ocular motions intact. Lids and lashes normal. Conjunctiva and sclera are non-icteric and not injected. Chest/axilla: Normal chest wall appearance and motion. Nontender with no deformity. No lesions are appreciated. Cardiovascular: Regular rate and rhythm. No gallops, murmurs, or rubs. Normal PMI, no JVD. No pulse deficits. Respiratory: Lungs have equal breath sounds bilaterally, clear to auscultation and percussion. No rales, rhonchi or wheezes noted. No increased work of breathing, no retractions or nasal flaring. Skin: Warm, dry with normal turgor. Normal color with no rashes, no lesions, and no evidence of cellulitis. MS/ Extremity: Pulses equal, no cyanosis. Neurovascular intact. Full, normal range of motion. Neuro: Awake and alert, GCS 15, oriented to person, place, time, and situation. Cranial nerves II-XII grossly intact. Sensory grossly intact. 23:43 Abdomen/GI: Inspection: abdomen appears normal, Bowel sounds: normal, Palpation: abdomen is soft and non-tender. Vital Signs: 22:43 BP 152 / 76; Pulse 59; Resp 18; Temp 98.1(O); Pulse Ox 96% ; Weight 74.84 kg; Height 5 tl2 ft. 8 in. (172.72 cm); Pain 8/10; 23:18 BP 165 / 87; Pulse 62; Resp 18 S; Pulse Ox 100% on R/A; ca1 23:59 BP 148 / 84; Pulse 54; Resp 18 S; Temp 98(O); Pulse Ox 99% ; ca1 22:43 Body Mass Index 25.09 (74.84 kg, 172.72 cm) tl2 MDM: 23:25 Patient medically screened. ps1 11/11 00:12 Data reviewed: vital signs, nurses notes, lab test result(s), radiologic studies, and ps1 as a result, I will discharge patient. 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 ED course: Patient here for recurrent previously evaluated pain. C/w constipation. Given mag citrate and fleet. stable for discharge. . 11/10 23:25 Order name: CBC with Diff; Complete Time: 23:55 ps1 11/10 23:25 Order name: Lipase; Complete Time: 00:11 ps1 11/10 23:25 Order name: CMP; Complete Time: 00:11 ps1 11/10 23:25 Order name: Abdomen Acute Series XRAY ps1 11/10 23:25 Order name: IV Saline Lock; Complete Time: 23:39 ps1 11/10 23:25 Order name: Labs collected and sent; Complete Time: 23:39 ps1 Administered Medications: 00:09 Drug: Magnesium Citrate Liquid 300 ml Route: PO; ca1 00:30 Follow up: Response: No adverse reaction; No adverse reaction. BM x 1 ca1 00:15 Drug: Fleet Enema 133 ml Route: [place]; ca1 00:30 Follow up: Response: No adverse reaction; No adverse reaction, BM x 1 ca1 Disposition: 11/11/18 00:19 Discharged to Home. Impression: Constipation, Abdominal pain. - Condition is Stable. - Discharge Instructions: Constipation, Adult. - Prescriptions for Colace 100 mg Oral Tablet - take 1 tablet by ORAL route every 12 hours; 14 tablet. - Medication Reconciliation Form, Thank You Letter, Antibiotic Education, Prescription Opioid Use form. - Follow up: Nirmala Concepcion MD; When: 2 - 3 days; Reason: Further diagnostic work-up, Recheck today's complaints, Re-evaluation by your physician. Follow up: Emergency Department; When: As needed; Reason: Fever > 102 F, Worsening of condition. - Problem is chronic. - Symptoms are unchanged. Signatures: Dispatcher [employer] EDMS Zeina Carrasco RN RN tl2 Deric Black MD MD ps1 Constance, Chelo RN RN ca1 Corrections: (The following items were deleted from the chart) 00:35 00:19 11/11/2018 00:19 Discharged to Home. Impression: Constipation; Abdominal pain. ca1 Condition is Stable. Forms are Medication Reconciliation Form, Thank You Letter, Antibiotic Education, Prescription Opioid Use. Follow up: Nirmala Concepcion; When: 2 - 3 days; Reason: Further diagnostic work-up, Recheck today's complaints, Re-evaluation by your physician. Follow up: Emergency Department; When: As needed; Reason: Fever > 102 F, Worsening of condition. Problem is chronic. Symptoms are unchanged. ps1
[2018-11-11 02:06] VITALS: BP 148/84; TEMP 98; O2SAT 99
--- NOTE | 2018-11-11 09:29 | RAD REPORT ---
EXAM DESCRIPTION: RAD - Abdomen Acute Series - 11/10/2018 11:55 pm CLINICAL HISTORY: Abdominal pain, cramping and nausea COMPARISON: Chest film July 15, 2018, acute abdomen series May 2018 FINDINGS: Lungs are clear. Heart size and pulmonary vasculature are normal. No pleural effusion, pne umothorax or other acute cardiopulmonary process seen. Parenchymal and hilar granulomatous calcificat ions are stable. Bowel gas pattern is nonspecific. No bowel obstruction, free air or other acute findings. No suspicio us calcifications. Moderate stool volume in the right-side colon. No other suspicious for significant findings. IMPRESSION: Negative acute abdomen series.
== END 2018-11-11 00:35 | disposition home or self-care (01) ==
LOC: ER 22:33
DX: K59.00 Constipation, unspecified (principal); F41.9 Anxiety disorder, unspecified; F43.10 Post-traumatic stress disorder, unspecified; Z79.82 Long term (current) use of aspirin; Z88.1 Allergy status to other antibiotic agents; Z88.3 Allergy status to other anti-infective agents; Z88.5 Allergy status to narcotic agent; Z91.041 Radiographic dye allergy status; Z91.040 Latex allergy status
CPT/HCPCS: 36415; 74022; 80053; 83690; 85025; 99284

== ENCOUNTER 2018-12-12 21:41 | Emergency (ER) | payer OTHER ==
--- OUTSIDE RECORDS SUMMARY | 2018-12-12 21:44 | XMS REPORT ---
[...] End Status Dosage System Date Date Albuterol [facility] 80352614911 108 (90 Base) Apr 29, Active 1 puff Sulfate HFA MCG/ACT 2014 Inhalation every [address] [facility] 98225203680 108 (90 Base) Apr 28, Active 2 puffs as RespiClick MCG/ACT 2014 needed Inhalation q 4-6 h prn Protonix ND 82230064502 40 MG Orally Active 1 tablet Once a day Famotidine ND 20425733900 20 MG Orally Active 1 tablet every 12 hrs at bedtime Clonazepam ND 71785805964 2 MG Orally Active TAKE 1 twice a day TABLET BY MOUTH TWICE A DAY [place] ND 83259248294 7.5-325 MG Apr 29, Active 1 tablet Orally TID-prn 2013 as needed pain Aspirin 81 ND 73569289892 81 MG Orally September Active 1 tablet Once a day 2016 Ondansetron HCl ND 48525859114 4 MG Orally Active 1 tablet Twice a day Ventolin HFA [facility] 93550860457 108 (90 Base) Active 2 puffs MCG/ACT Inhalation TID X [address] [facility] 67744873392 25 MG Active TAKE 1 TABLET BY MOUTH TWICE A DAY Dicyclomine HCl ND 14738858522 20 MG Orally Active 1 tablet Four times a day Tylenol with [facility] 50367004532 300-30 MG Orally Active 2 tablet Codeine #3 every 6 hrs as needed Results No Known Results Summary Purpose eClinicalWorks Submission
--- OUTSIDE RECORDS SUMMARY | 2018-12-12 21:44 | XMS REPORT ---
:1960 [facility] Care Team Providers Name Role Phone [...] End Status Dosage System Date Date Carvedilol [facility] 39361203649 25 MG Active TAKE 1 TABLET BY MOUTH TWICE A DAY Creon [facility] 36720979143 [id number] Jul 17, Active take by UNIT Orally 2019 mouth 1 tab with each capsule 3 meal times a day as directed Tylenol with NDC 89706519255 300-30 MG Active 2 tablet as Codeine #3 Orally every 6 needed hrs Albuterol ND 75307397101 108 (90 Base) Apr 29, Active 1 puff Sulfate HFA MCG/ACT 2014 Inhalation every 6 hrs [place] ND 36536592472 7.5-325 MG Apr 29, Active 1 tablet as Orally TID-prn 2013 needed pain Famotidine ND 96601512444 20 MG Orally Active 1 tablet at every 12 hrs bedtime Clonazepam ND 87011547908 2 MG Active TAKE 1 TABLET BY MOUTH TWICE A DAY Dicyclomine HCl ND 11489673023 20 MG Orally Active 1 tablet Four times a day Ondansetron HCl ND 81815927872 4 MG Orally Active 1 tablet Twice a day ProAir [facility] 51529451117 108 (90 Base) Apr 28, Active 2 puffs as RespiClick MCG/ACT 2014 needed Inhalation q 4-6 h prn Aspirin 81 ND 61627836513 81 MG Orally September Active 1 tablet Once a day 2016 Protonix ND 36660408363 40 MG Orally Active 1 tablet Once a day Ventolin HFA ND 60413421914 108 (90 Base) September Active 2 puffs MCG/ACT 2017 Inhalation TID X 5 days Results No Known Results Summary Purpose eClinicalWorks Submission
--- OUTSIDE RECORDS SUMMARY | 2018-12-12 21:44 | XMS REPORT ---
[...] Medications Results No Known Results Summary Purpose [email or web address] Submission
--- OUTSIDE RECORDS SUMMARY | 2018-12-12 21:44 | XMS REPORT ---
[...] End Status Dosage System Date Date Albuterol [facility] 96728663269 108 (90 Base) Apr 29, Active 1 puff Sulfate HFA MCG/ACT 2014 Inhalation every 6 hrs Clonazepam [facility] 14034577888 2 MG Orally BID Apr 28, Active 1 tablet 2015 Ventolin HFA [facility] 05262663244 108 (90 Base) September Active 2 puffs MCG/ACT 2017 Inhalation TID X 5 days Miles [facility] 31156278135 7.5-325 MG Apr 29, Active 1 tablet as Orally TID-prn 2013 needed pain ProAir [facility] 57490434744 108 (90 Base) Apr 28, Active 2 puffs as RespiClick MCG/ACT 2014 needed Inhalation q 4-6 h prn Creon [facility] 72955735189 [id number] UNIT Jul 17, Active take by Orally 2018 mouth 1 with each meal capsule 3 times a day as directed Carvedilol [facility] 26995099364 25 MG Orally BID Active take 1 tablet by mouth twice a day Protonix [facility] 91206659037 40 MG Orally Active 1 tablet Once a day Aspirin 81 [facility] 25963038013 81 MG Orally September Active 1 tablet Once a day 2016 Results No Known Results Summary Purpose eClinicalWorks Submission
--- OUTSIDE RECORDS SUMMARY | 2018-12-12 21:44 | XMS REPORT ---
:1960 [facility] Care Team Providers Name Role Phone Lizette Dunhamy Provider Role Unavailable Allergies, Adverse Reactions, Alerts Substance Reaction Event Type Phenergan hives Drug Allergy Levaquin stops breathing Drug Allergy Keflex rash Drug Allergy Bactrim DS rash Drug Allergy Problems Problem Type Condition Code Onset Dates Condition Status Assessment Nausea R11.0 Active Assessment Post-traumatic stress disorder F43.10 Active Assessment Wheezing R06.2 Active Assessment Crohn''s disease without K50.90 Active complication, unspecified gastrointestinal tract location Problem Lumbar sprain, initial encounter S33.5XXA Active Problem Asymptomatic microscopic hematuria R31.21 Active Problem Panic disorder without agoraphobia F41.0 Active Problem Acute tonsillitis, unspecified J03.90 Active etiology Problem Hyperglycemia R73.9 Active Problem Generalized anxiety disorder F41.1 Active Problem Wheezing R06.2 Active Problem Essential hypertension I10 Active Problem Disc disorder M51.9 Active Problem Narcolepsy without 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 Active Problem Nausea R11.0 Active Problem Other chronic pancreatitis K86.1 Active Problem Cervical spondylosis without M47.812 Active myelopathy Problem Post-traumatic stress disorder F43.10 Active Problem BMI 29.0-29.9,adult Z68.29 Active Problem Chronic fatigue R53.82 Active Problem Gastro-esophageal reflux disease K21.9 Active without esophagitis Problem Chronic pain syndrome G89.4 Active Problem Acute upper respiratory infection J06.9 Active Problem Abnormal blood sugar R73.09 Active Problem Crohn''s disease without K50.90 Active complication, unspecified gastrointestinal tract location Problem 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 Problem Essential (primary) hypertension I10 Active Problem Encounter for counseling Z71.9 Active Medications Medication Code Code Instructions Start End Status Dosage System Date Date Ondansetron HCl [facility] 36121695043 4 MG Orally Active 1 tablet Twice a day Famotidine ND 76431049732 20 MG Orally Active 1 tablet at every 12 hrs bedtime Dicyclomine HCl ND 21739398688 20 MG Orally Active 1 tablet Four times a day Albuterol [facility] 46601117507 108 (90 Base) Apr 29, Active 1 puff Sulfate HFA MCG/ACT 2014 Inhalation every 6 hrs Creon [facility] 46823320027 [id number] May 18, Active take by UNIT Orally 2018 mouth 1 tab with each capsule 3 meal and snacks times a day as directed Aspirin 81 ND 37376193411 81 MG Orally September Active 1 tablet Once a day 2016 Carvedilol [facility] 28300167470 25 MG Active TAKE 1 TABLET BY MOUTH TWICE A DAY Tylenol with [facility] 97270570920 300-30 MG Active 2 tablet as Codeine #3 Orally every 6 needed hrs Ventolin HFA [facility] 04490442322 108 (90 Base) Active 2 puffs MCG/ACT Inhalation every 6 hrs PRN ProAir [facility] 85354729990 108 (90 Base) Apr 28, Active 2 puffs as RespiClick MCG/ACT 2014 needed Inhalation q 4-6 h prn Clonazepam [facility] 62718746744 2 MG Orally Active TAKE 1 twice a day TABLET BY MOUTH TWICE A DAY Blakeslee [facility] 36143011521 7.5-325 MG Apr 29, Active 1 tablet as Orally TID-prn 2013 needed pain Zofran ND 33469403625 8 MG Orally November 19, Active 1 tablet as Once a day 2018 needed Protonix [facility] 58373684345 40 MG Orally Active 1 tablet Once a day Results No Known Results Summary Purpose eClinicalWorks Submission
--- OUTSIDE RECORDS SUMMARY | 2018-12-12 21:44 | XMS REPORT ---
[...] Start End Date Status Dosage Date Clonazepam [facility] 33492510270 2 MG Orally twice Active TAKE 1 a day TABLET BY MOUTH TWICE A DAY Results No Known Results Summary Purpose eClinicalWorks Submission
--- OUTSIDE RECORDS SUMMARY | 2018-12-12 21:44 | XMS REPORT | Continuity of Care Document ---
:1960 Author Organization [employer] Care Team Providers Name Role Phone [employer] Unavailable Unavailable Problems Problem Status Onset Classification Date Comments [...] Hydrocodone Refill(s) Bitartrate 10 MG Oral Tablet [[place] 10/325] Clonazepam 2 MG 2 mg=1 Active [facility]t tab, PO, 019 [facility] [Klonopin] BID, # 60 tab, 0 Refill(s) Allergies, Adverse Reactions, Alerts Substance Category Reaction Severity Reaction Status Date Comments Source type Reported Levaquin Assertion Drug Active [facility] Immunizations No Data Provided for This Section Results No Data Provided for This Section Pathology Reports No Data Provided for This Section Diagnostic Reports No Data Provided for This Section Consultation Notes No Data Provided for This Section Discharge Summaries No Data Provided for This Section History and Physicals No Data Provided for This Section Vital Signs Vital Sign Value Date Comments Source BMI Calculated 30.47 09/26/2018 [facility] Weight 90.909 09/26/2018 [facility] Height 172.72 cm 09/26/2018 [facility] Heart Rate 58 09/26/2018 [facility] Respitory Rate 16 09/26/2018 [facility] Systolic (mm Hg) 159 09/26/2018 [facility] Diastolic (mm Hg) 88 09/26/2018 [facility] [place] Location Location Encounter Encounter Reason Attending ADM DC Status Source Details Type Number For Provider Date Date Visit [facility] [id number] [place] 09[place] 09/27 [facility] [place] [facility] [id number] [place] 10/31 [facility] [id number] [place] 10/[place] 10/31 [facility] [place] Procedures No Data Provided for This Section Assessment and Plan No Data Provided for This Section Plan of Care No Data Provided for This Section Social History Social History Date Source Social History TypeResponse 09/26/2018 [facility] Smoking Status Former smoker; Type: Cigarettes; Exposure to Tobacco Smoke None; Cigarette Smoking Last 365 Days No; Reg Smoking Cessation Counseling No entered on: 09/26/18 Family History No Data Provided for This Section Advance Directives No Data Provided for This Section Functional Status No Data Provided for This Section
[2018-12-12 23:53] LABS: Absolute Lymphocytes (CBC) 2.1 K/uL (0.7-4.9); Basophils % 0.4 % (0-1.3); Eosinophils % 1.7 % (0-4.4); Hematocrit 43.4 % (39.6-49.0); Lymphocytes % 29.1 % (15.3-44.8); MPV 9.6 fL (7.6-11.3); Monocytes % 8.2 % (3.3-12.3); RBC Red Blood Cell Count 4.74 M/uL (4.33-5.43)
[2018-12-13 00:13] LABS: Albumin 3.6 g/dL (3.4-5.0); Bilirubin Total 0.6 mg/dL (0.2-1.0); Potassium 3.6 mmol/L (3.5-5.1); Protein, Total 6.9 g/dL (6.4-8.2)
--- NOTE | 2018-12-13 00:18 | ER ---
Nurse's Notes [facility] Name: Alfredo Escobar Age: 58 yrs Sex: Male : 1960 Arrival Date: 12/12/2018 Time: 21:42 Bed 25 Private MD: Diagnosis: Pain in left leg;Pain in right leg Presentation: 12/12 22:10 Presenting complaint: Patient states: He is experiencing leg pain and cramps and feels wh like his feet is on fire when he is walking. Pt is also complaining of Abd pain that does not radiate. Neg for NVD, fever. Transition of care: patient was not received from another setting of care. Onset of symptoms was December 11, 2018. Risk Assessment: Do you want to hurt yourself or someone else? Patient reports no desire to harm self or others. Initial Sepsis Screen: Does the patient meet any 2 criteria? No. Patient's initial sepsis screen is negative. Does the patient have a suspected source of infection? No. Patient's initial sepsis screen is negative. Care prior to arrival: None. 22:10 Method Of Arrival: Ambulatory 22:10 Acuity: BUCKY 4 Triage Assessment: 22:15 General: Appears in no apparent distress. Behavior is calm, cooperative, appropriate for age. Pain: Complains of pain in left leg Pain does not radiate. Pain currently is 4 out of 10 on a pain scale. Pain began 1 day ago. Aggravated by weight bearing. Historical: - Allergies: 22:47 Bactrim; 22:47 Iodinated Contrast Media - IV Dye; 22:47 Iodine; 22:47 Keflex; 22:47 Latex, Natural Rubber; 22:47 Levaquin; 22:47 promethazine HCl; 22:47 Toradol; 22:47 Vancomycin; - Home Meds: 22:47 aspirin 81 mg Oral TbEC once daily [Active]; carvedilol 25 mg Oral tab 2 times per day [Active]; clonazepam 2 mg Oral tab 2 times per day [Active]; [place] 10-325 mg Oral tab twice a day [Active]; pantoprazole 40 mg Oral TbEC once daily [Active]; Ventolin HFA 90 mcg/actuation Nebulizer HFAA 2 puffs every 8 hours [Active]; - PMHx: 22:47 Anxiety; Arthritis; Crohn's; GERD; Pancreatitis; PTSD; wh - Immunization history:: Adult Immunizations up to date. - Social history:: Smoking status: Patient/guardian denies using tobacco, Patient uses Patient/guardian denies using alcohol, street drugs, The patient lives with family. - Ebola Screening: : Patient negative for fever greater than or equal to 101.5 degrees Fahrenheit, and additional compatible Ebola Virus Disease symptoms Patient denies exposure to infectious person. - Family history:: not pertinent. Screenin:14 Abuse screen: Denies threats or abuse. Denies injuries from another. Nutritional wh screening: No deficits noted. Tuberculosis screening: No symptoms or risk factors identified. Fall Risk None identified. Assessment: 22:31 General: Appears in no apparent distress. Pain: Complains of pain in abdomen, right leg wh and left leg Pain does not radiate. Pain currently is 5 out of 10 on a pain scale. Neuro: Level of Consciousness is awake, alert, obeys commands, Oriented to person, place, time, situation. Cardiovascular: Heart tones S1 S2. Respiratory: Airway is patent Respiratory effort is even, unlabored, Respiratory pattern is regular, symmetrical, Breath sounds are clear bilaterally. GI: Abdomen is flat, non-distended, Bowel sounds present X 4 quads. Abd is soft and non tender X 4 quads. : No signs and/or symptoms were reported regarding the genitourinary system. EENT: No signs and/or symptoms were reported regarding the EENT system. Derm: Skin is intact, is healthy with good turgor, Skin is pink, warm \T\ dry. normal. Musculoskeletal: Range of motion: intact in all extremities. 23:26 Reassessment: Patient appears in no apparent distress at this time. Patient and/or wh family updated on plan of care and expected duration. Pain level reassessed. Patient is alert, oriented x 3, equal unlabored respirations, skin warm/dry/pink. Vital Signs: 22:17 BP 143 / 84; Pulse 62; Resp 18; Temp 98.8; Pulse Ox 99% on R/A; wh 23:26 BP 137 / 76; Pulse 67; Resp 18; Pulse Ox 100% on R/A; wh 12/13 00:55 BP 156 / 87; Pulse 51; Resp 16; Pulse Ox 100% ; fu 01:30 BP 148 / 87; Pulse 97; Resp 16; Pulse Ox 97% ; fu ED Course: 12/12 21:42 Patient arrived in ED. ag3 21:57 Arik Batres is Primary Nurse. 22:08 Dayron Perkins MD is Attending Physician. ma2 22:14 Triage completed. 22:16 Arm band placed on left wrist. 22:16 Patient has correct armband on for positive identification. Bed in low position. Call light in reach. Side rails up X 1. Pulse ox on. NIBP on. 12/13 01:29 No provider procedures requiring assistance completed. Patient did not have IV access fu during this emergency room visit. Administered Medications: 00:46 Drug: GI Cocktail without - (Maalox Suspension 30 ml, Lidocaine Liquid 2 % 15 fu ml) Route: PO; 01:00 Follow up: Response: Marked relief of symptoms fu Outcome: 00:18 Discharge ordered by . ok2 02:05 Discharged to home ambulatory. fu 02:05 Condition: stable 02:05 Discharge instructions given to patient, Instructed on discharge instructions, Demonstrated understanding of instructions, follow-up care, medications, Prescriptions given X 4. 02:06 Patient left the ED. fu Signatures: Arik Batres Guru Porras, RN RN Dayron Perkins MD MD ma2 Gomez, Alice 3
--- NOTE | 2018-12-13 00:19 | EDPHYS ---
Physician Documentation [facility] Name: Alfredo Escobar Age: 58 yrs Sex: Male : 1960 Arrival Date: 12/12/2018 Time: 21:42 Bed 25 Private MD: ED Physician Dayron Perkins HPI: 12/13 00:16 This 58 yrs old Male presents to ER via Ambulatory with complaints of feet ma2 feel burning, leg cramps. 00:16 The complaints affect the right leg and left leg. Onset: The symptoms/episode ma2 began/occurred gradually, 2 week(s) ago. Associated signs and symptoms: Pertinent positives: Pertinent negatives: anorexia, dizziness, dysuria, incontinence. Severity of symptoms: At their worst the symptoms were very mild, in the emergency department the symptoms have resolved. The patient has experienced similar episodes in the past. Historical: - Allergies: 12/12 22:47 Bactrim; wh 22:47 Iodinated Contrast Media - IV Dye; wh 22:47 Iodine; wh 22:47 Keflex; wh 22:47 Latex, Natural Rubber; wh 22:47 Levaquin; wh 22:47 promethazine HCl; wh 22:47 Toradol; wh 22:47 Vancomycin; wh - Home Meds: 22:47 aspirin 81 mg Oral TbEC once daily [Active]; carvedilol 25 mg Oral tab 2 times per day wh [Active]; clonazepam 2 mg Oral tab 2 times per day [Active]; [place] 10-325 mg Oral tab twice a day [Active]; pantoprazole 40 mg Oral TbEC once daily [Active]; Ventolin HFA 90 mcg/actuation Nebulizer HFAA 2 puffs every 8 hours [Active]; - PMHx: 22:47 Anxiety; Arthritis; Crohn's; GERD; Pancreatitis; PTSD; wh - Immunization history:: Adult Immunizations up to date. - Social history:: Smoking status: Patient/guardian denies using tobacco, Patient uses Patient/guardian denies using alcohol, street drugs, The patient lives with family. - Ebola Screening: : Patient negative for fever greater than or equal to 101.5 degrees Fahrenheit, and additional compatible Ebola Virus Disease symptoms Patient denies exposure to infectious person. - Family history:: not pertinent. ROS: 12/13 00:16 Constitutional: Negative for fever, chills, and weight loss. ma2 All other systems are negative. Exam: 00:16 Constitutional: This is a well developed, well nourished patient who is awake, alert, ma2 and in no acute distress. Head/Face: Normocephalic, atraumatic. Eyes: Pupils equal round and reactive to light, extra-ocular motions intact. Lids and lashes normal. Conjunctiva and sclera are non-icteric and not injected. Cornea within normal limits. Periorbital areas with no swelling, redness, or edema. ENT: Nares patent. No nasal discharge, no septal abnormalities noted. Tympanic membranes are normal and external auditory canals are clear. Oropharynx with no redness, swelling, or masses, exudates, or evidence of obstruction, uvula midline. Mucous membranes moist. Neck: Trachea midline, no thyromegaly or masses palpated, and no cervical lymphadenopathy. Supple, full range of motion without nuchal rigidity, or vertebral point tenderness. No Meningismus. Chest/axilla: Normal chest wall appearance and motion. Nontender with no deformity. No lesions are appreciated. Cardiovascular: Regular rate and rhythm with a normal S1 and S2. No gallops, murmurs, or rubs. Normal PMI, no JVD. No pulse deficits. Respiratory: Lungs have equal breath sounds bilaterally, clear to auscultation and percussion. No rales, rhonchi or wheezes noted. No increased work of breathing, no retractions or nasal flaring. Abdomen/GI: Soft, non-tender, with normal bowel sounds. No distension or tympany. No guarding or rebound. No evidence of tenderness throughout. Skin: Warm, dry with normal turgor. Normal color with no rashes, no lesions, and no evidence of cellulitis. MS/ Extremity: Pulses equal, no cyanosis. Neurovascular intact. Full, normal range of motion. Neuro: Awake and alert, GCS 15, oriented to person, place, time, and situation. Cranial nerves II-XII grossly intact. Motor strength 5/5 in all extremities. Sensory grossly intact. Cerebellar exam normal. Normal gait. Vital Signs: 12/12 22:17 BP 143 / 84; Pulse 62; Resp 18; Temp 98.8; Pulse Ox 99% on R/A; wh 23:26 BP 137 / 76; Pulse 67; Resp 18; Pulse Ox 100% on R/A; 12/13 00:55 BP 156 / 87; Pulse 51; Resp 16; Pulse Ox 100% ; fu 01:30 BP 148 / 87; Pulse 97; Resp 16; Pulse Ox 97% ; fu MDM: 12/12 22:09 Patient medically screened. [facility] 12/13 00:16 Differential diagnosis: bursitis, arthritis, strain. Data reviewed: vital signs, nurses ma2 notes. Counseling: I had a detailed discussion with the patient and/or guardian regarding: the historical points, exam findings, and any diagnostic results supporting the discharge/admit diagnosis, the presence of at least one elevated blood pressure reading (>120/80) during this emergency department visit, the need for outpatient follow up. Response to treatment:. 12/12 22:06 Order name: Glucose, Ancillary Testing; Complete Time: 00:15 [facility] 12/12 22:23 Order name: CBC with Diff; Complete Time: 00:15 [facility] 12/13 00:15 Interpretation: Abnormal. [facility] 12/12 22:23 Order name: CMP; Complete Time: 00:15 [facility] 12/12 22:23 Order name: Lipase; Complete Time: 00:15 [facility] Administered Medications: 00:46 Drug: GI Cocktail without - (Maalox Suspension 30 ml, Lidocaine Liquid 2 % 15 fu ml) Route: PO; 01:00 Follow up: Response: Marked relief of symptoms fu Disposition: 12/13/18 00:18 Discharged to Home. Impression: Pain in left leg, Pain in right leg. - Condition is Stable. - Discharge Instructions: Musculoskeletal Pain. - Prescriptions for Tylenol- Codeine #3 300-30 mg Oral Tablet - take 2 tablet by ORAL route every 6 hours As needed; 30 tablet. Benadryl 25 mg Oral capsule - take 1 capsule by ORAL route 3 times per day; 30 capsule. Lidocaine Viscous - take 5 milligram by ORAL route 3 times per day; 500 milligram. Maalox Advanced 200- 200-20 mg/5 mL Oral suspension - take 30 milliliter by ORAL route every 2 hours; 500 milliliter. - Medication Reconciliation Form, Thank You Letter, Antibiotic Education, Prescription Opioid Use form. - Follow up: Private Physician; When: Tomorrow; Reason: If symptoms return, Continuance of care. Signatures: Dispatcher [employer] EDArik Guadarrama Guru Bush RN RN fu Alzahri, Mohammad, MD MD ma2 Corrections: (The following items were deleted from the chart) 02:06 00:18 12/13/2018 00:18 Discharged to Home. Impression: Pain in left leg; Pain in right fu leg. Condition is Stable. Forms are Medication Reconciliation Form, Thank You Letter, Antibiotic Education, Prescription Opioid Use. Follow up: Private Physician; When: Tomorrow; Reason: If symptoms return, Continuance of care. ma2
[2018-12-13] MEDS ORDERED: MAGNE/ALUM HYDROXD 30 ML UCUP ONE (00:52)
[2018-12-13] MEDS ORDERED: LIDOCAINE VISCOUS 2% SOLN 15 ML UDC ONE (00:53)
[2018-12-13 02:11] VITALS: TEMP 98.8
[2018-12-13 02:15] VITALS: BP 148/87; O2SAT 97
== END 2018-12-13 02:06 | disposition home or self-care (01) ==
LOC: ER 21:41
DX: M79.604 Pain in right leg (principal); F41.9 Anxiety disorder, unspecified; K21.9 Gastro-esophageal reflux disease without esophagitis; F43.10 Post-traumatic stress disorder, unspecified; Z79.82 Long term (current) use of aspirin; Z88.1 Allergy status to other antibiotic agents; Z88.3 Allergy status to other anti-infective agents; Z88.5 Allergy status to narcotic agent; Z88.6 Allergy status to analgesic agent; Z91.040 Latex allergy status; Z91.041 Radiographic dye allergy status
CPT/HCPCS: 36415; 80053; 82962; 83690; 85025; 99283

== ENCOUNTER 2019-01-05 10:27 | Emergency (ER) | payer OTHER ==
--- OUTSIDE RECORDS SUMMARY | 2019-01-05 10:29 | XMS REPORT | Continuity of Care Document ---
:1960 Author Organization [employer] Care Team Providers Name Role Phone [employer] Unavailable Unavailable Problems Problem Status Onset Classification [...] Hydrocodone Refill(s) Bitartrate 10 MG Oral Tablet [[place] 10/325] Clonazepam 2 MG 2 mg=1 Active [...] 09/26/2018 [facility] Respitory Rate 16 09/26/2018 [facility] Systolic (mm Hg) 159 09/26/2018 [facility] Diastolic (mm Hg) 88 09/26/2018 [facility] Encounters Location Location Encounter Encounter Reason Attending ADM DC Status Source Details Type Number For Provider Date Date Visit [facility] [id number] [place] 09/26 09/27 [facility] [place] Outpatient [id number] [place] 10/31 Active [facility] [id number] [place] 10/31 10/31 [facility] Pre-Reg [facility] [place] Procedures No Data Provided for This Section Assessment and Plan No Data Provided for This Section Plan of Care No Data Provided for This Section Social History Social History Date Source Social History TypeResponse 09/26/2018 [facility] Smoking Status Former smoker; Type: Cigarettes; Exposure to Tobacco Smoke None; Cigarette Smoking Last 365 Days No; Reg Smoking Cessation Counseling No entered on: 09/26/18 Family History No Data Provided for This Section Advance Directives No Data Provided for This Section Functional Status No Data Provided for This Section
--- OUTSIDE RECORDS SUMMARY | 2019-01-05 10:30 | XMS REPORT ---
[...] End Status Dosage System Date Date Albuterol [facility] 82032866003 108 (90 Base) Apr 29, Active 1 puff Sulfate HFA MCG/ACT 2014 Inhalation every 6 hrs Clonazepam [facility] 42445985360 2 MG Orally BID Apr 28, Active 1 tablet 2015 Ventolin HFA [facility] 71848081911 108 (90 Base) September Active 2 puffs MCG/ACT 2017 Inhalation TID X 5 days [place] [facility] 32817287053 7.5-325 MG Apr 29, Active 1 tablet as Orally TID-prn 2013 needed pain ProAir [facility] 18029048585 108 (90 Base) Apr 28, Active 2 puffs as RespiClick MCG/ACT 2014 needed Inhalation q 4-6 h prn Creon [facility] 22694983260 [id number] UNIT Jul 17, Active take by Orally 2018 mouth 1 with each meal capsule 3 times a day as directed Carvedilol [facility] 74141158797 25 MG Orally BID Active take 1 tablet by mouth twice a day Protonix [facility] 18237303255 40 MG Orally Active 1 tablet Once a day Aspirin 81 [facility] 64809299105 81 MG Orally September Active 1 tablet Once a day 2016 Results No Known Results Summary Purpose eClinicalWorks Submission
--- OUTSIDE RECORDS SUMMARY | 2019-01-05 10:30 | XMS REPORT ---
[...] End Status Dosage System Date Date Carvedilol [facility] 31357186921 25 MG Active TAKE 1 TABLET BY MOUTH TWICE A DAY Creon [facility] 14533021846 [id number] Jul 17, Active take by UNIT Orally 2019 mouth 1 tab with each capsule 3 meal times a day as directed Tylenol with NDC 27351661786 300-30 MG Active 2 tablet as Codeine #3 Orally every 6 needed hrs Albuterol ND 33276794319 108 (90 Base) Apr 29, Active 1 puff Sulfate HFA MCG/ACT 2014 Inhalation every 6 hrs [place] 39587582460 7.5-325 MG Apr 29, Active 1 tablet as Orally TID-prn 2013 needed pain Famotidine ND 25209894231 20 MG Orally Active 1 tablet at every 12 hrs bedtime Clonazepam ND 85183353362 2 MG Active TAKE 1 TABLET BY MOUTH TWICE A DAY Dicyclomine HCl ND 29333631037 20 MG Orally Active 1 tablet Four times a day Ondansetron HCl ND 40240337317 4 MG Orally Active 1 tablet Twice a day ProAir [facility] 19858880964 108 (90 Base) Apr 28, Active 2 puffs as RespiClick MCG/ACT 2014 needed Inhalation q 4-6 h prn Aspirin 81 ND 15968674652 81 MG Orally September Active 1 tablet Once a day 2016 Protonix ND 72106462258 40 MG Orally Active 1 tablet Once a day Ventolin HFA ND 64242343090 108 (90 Base) September Active 2 puffs MCG/ACT 2017 Inhalation TID X 5 days Results No Known Results Summary Purpose eClinicalWorks Submission
--- OUTSIDE RECORDS SUMMARY | 2019-01-05 10:30 | XMS REPORT ---
[...] End Status Dosage System Date Date Albuterol [facility] 93506078509 108 (90 Base) Apr 29, Active 1 puff Sulfate HFA MCG/ACT 2014 Inhalation every 6 hrs ProAir [facility] 24205940101 108 (90 Base) Apr 28, Active 2 puffs as RespiClick MCG/ACT 2014 needed Inhalation q 4-6 h prn Protonix ND 06894224298 40 MG Orally Active 1 tablet Once a day Famotidine ND 24281438016 20 MG Orally Active 1 tablet every 12 hrs at bedtime Clonazepam ND 06788184063 2 MG Orally Active TAKE 1 twice a day TABLET BY MOUTH TWICE A DAY [place] ND 66856540711 7.5-325 MG Apr 29, Active 1 tablet Orally TID-prn 2013 as needed pain Aspirin 81 ND 94423452319 81 MG Orally September Active 1 tablet Once a day 2016 Ondansetron HCl ND 06642704265 4 MG Orally Active 1 tablet Twice a day Ventolin HFA [facility] 08700522033 108 (90 Base) Active 2 puffs MCG/ACT Inhalation TID X 5 days Carvedilol [facility] 40004661413 25 MG Active TAKE 1 TABLET BY MOUTH TWICE A DAY Dicyclomine HCl ND 91413625572 20 MG Orally Active 1 tablet Four times a day Tylenol with [facility] 24141129160 300-30 MG Orally Active 2 tablet Codeine #3 every 6 hrs as needed Results No Known Results Summary Purpose eClinicalWorks Submission
--- OUTSIDE RECORDS SUMMARY | 2019-01-05 10:30 | XMS REPORT ---
[...] Start End Date Status Dosage Date Clonazepam [facility] 64076817641 2 MG Orally twice Active TAKE 1 a day TABLET BY MOUTH TWICE A DAY Results No Known Results Summary Purpose eClinicalWorks Submission
--- OUTSIDE RECORDS SUMMARY | 2019-01-05 10:30 | XMS REPORT ---
:1960 Author [facility] Care Team Providers Name Role Phone Lizette [...] Status Dosage System Date Date Ondansetron HCl [facility] 74789577895 4 MG Orally Active 1 tablet Twice a day Famotidine ND 31976777204 20 MG Orally Active 1 tablet at every 12 hrs bedtime Dicyclomine HCl ND 14533253084 20 MG Orally Active 1 tablet Four times a day Albuterol [facility] 14421061340 108 (90 Base) Apr 29, Active 1 puff Sulfate HFA MCG/ACT 2014 Inhalation every 6 hrs Creon [facility] 61257807738 [id number] May 18, Active take by UNIT Orally 2018 mouth 1 tab with each capsule 3 meal and snacks times a day as directed Aspirin 81 ND 51318909738 81 MG Orally September Active 1 tablet Once a day 2016 Carvedilol [facility] 63580756182 25 MG Active TAKE 1 TABLET BY MOUTH TWICE A DAY Tylenol with [facility] 99398393924 300-30 MG Active 2 tablet as Codeine #3 Orally every 6 needed hrs Ventolin HFA [facility] 04389640965 108 (90 Base) Active 2 puffs MCG/ACT Inhalation every 6 hrs PRN ProAir [facility] 00901595739 108 (90 Base) Apr 28, Active 2 puffs as RespiClick MCG/ACT 2014 needed Inhalation q 4-6 h prn Clonazepam [facility] 79211712104 2 MG Orally Active TAKE 1 twice a day TABLET BY MOUTH TWICE A DAY [place] [facility] 11758875052 7.5-325 MG Apr 29, Active 1 tablet as Orally TID-prn 2013 needed pain Zofran ND 54554054569 8 MG Orally November 19, Active 1 tablet as Once a day 2018 needed Protonix [facility] 02311329485 40 MG Orally Active 1 tablet Once a day Results No Known Results Summary Purpose eClinicalWorks Submission
--- OUTSIDE RECORDS SUMMARY | 2019-01-05 10:30 | XMS REPORT ---
[...] Medications Results No Known Results Summary Purpose [employer] Submission
--- OUTSIDE RECORDS SUMMARY | 2019-01-05 10:30 | XMS REPORT ---
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
[2019-01-05 11:09] LABS: Absolute Lymphocytes (CBC) 2.9 K/uL (0.7-4.9); Basophils % 0.3 % (0-1.3); Hematocrit 40.5 % (39.6-49.0); Lymphocytes % 40.2 % (15.3-44.8); MPV 8.5 fL (7.6-11.3); RBC Red Blood Cell Count 4.51 M/uL (4.33-5.43)
--- NOTE | 2019-01-05 11:09 | RAD REPORT ---
EXAM DESCRIPTION: Nohemy Single View01/05/2019 10:57 am CLINICAL HISTORY: Chest pain COMPARISON: November 2018 FINDINGS: Calcified left lung granuloma with calcified hilar lymph nodes indicative of prior granul omatous infection. The lungs appear clear of acute infiltrate. The heart is normal size IMPRESSION: No acute abnormalities displayed
--- NOTE | 2019-01-05 11:15 | RAD REPORT ---
EXAM DESCRIPTION: CT - Head Brain Wo Cont - 01/05/2019 11:01 am CLINICAL HISTORY: Blurred vision COMPARISON: August 2018 TECHNIQUE: Computed axial tomography of the head was obtained. IV contrast was not requested. All CT scans are performed using dose optimization technique as appropriate and may include automated exposure control or mA/KV adjustment according to patient size. FINDINGS: An intracranial bleed is not seen . The ventricles are normal in caliber. No extra-axial fluid collection is noted. Fluid within the sinuses/ mastoids is not seen. IMPRESSION: No acute intracranial abnormality is seen. If patient's symptoms persist MRI of the bra in would be recommended.
[2019-01-05] MEDS ORDERED: ONDANSETRON 4 MG/2 ML VIAL ONE (11:18)
[2019-01-05 11:26] LABS: BUN Blood Urea Nitrogen 13 mg/dL (7-18); Bicarbonate 28 mmol/L (21-32); Glucose Level 110 mg/dL (74-106); Potassium 3.7 mmol/L (3.5-5.1); Sodium Level 142 mmol/L (136-145); Troponin (Emerg Dept Use Only) < 0.02 ng/mL (0.0-0.045)
--- NOTE | 2019-01-05 11:44 | ER ---
Nurse's Notes [facility] Name: Alfredo Escobar Age: 58 yrs Sex: Male : 1960 Arrival Date: 01/05/2019 Time: 10:24 Bed 8 Private MD: Diagnosis: Jaw pain;Hypertension Presentation: 01/05 10:24 Presenting complaint: Patient states: i woke up with R jaw pain and i fell like my BP hj is high;. 10:26 Transition of care: patient was not received from another setting of care. Onset of hj symptoms was January 05, 2019. Risk Assessment: Do you want to hurt yourself or someone else? Patient reports no desire to harm self or others. Initial Sepsis Screen: Does the patient meet any 2 criteria? No. Patient's initial sepsis screen is negative. Does the patient have a suspected source of infection? No. Patient's initial sepsis screen is negative. Care prior to arrival: None. 10:26 Method Of Arrival: Ambulatory hj 10:26 Acuity: BUCKY 3 hj Triage Assessment: 10:27 General: Appears in no apparent distress. comfortable, Behavior is calm, cooperative, bp appropriate for age. Pain: Complains of pain in right jaw. EENT: No deficits noted. Neuro: No deficits noted. Cardiovascular: No deficits noted. Respiratory: No deficits noted. GI: No signs and/or symptoms were reported involving the gastrointestinal system. : No signs and/or symptoms were reported regarding the genitourinary system. Derm: No deficits noted. Musculoskeletal: No deficits noted. Historical: - Allergies: 10:27 Bactrim; hj 10:27 Iodinated Contrast Media - IV Dye; hj 10:27 Iodine; hj 10:27 Keflex; hj 10:27 Latex, Natural Rubber; hj 10:27 Levaquin; hj 10:27 promethazine HCl; hj 10:27 Toradol; hj 10:27 Vancomycin; hj - PMHx: 10:27 Anxiety; Arthritis; Crohn's; GERD; Pancreatitis; PTSD; hj - Immunization history:: Adult Immunizations up to date. - Family history:: not pertinent. - Social history:: Smoking status: Patient/guardian denies using tobacco. - Ebola Screening: : Patient negative for fever greater than or equal to 101.5 degrees Fahrenheit, and additional compatible Ebola Virus Disease symptoms Patient denies exposure to infectious person Patient denies travel to an Ebola-affected area in the 21 days before illness onset No symptoms or risks identified at this time. - Hospitalizations: : No recent hospitalization is reported. Screenin:40 Abuse screen: Denies threats or abuse. Denies injuries from another. Nutritional bp screening: No deficits noted. Tuberculosis screening: No symptoms or risk factors identified. Fall Risk None identified. Assessment: 10:30 General: SEE TRIAGE NOTE. bp 11:37 Reassessment: ALL CURRENT ORDERS COMPLETED, DISPO PENDING. bp 11:57 Reassessment: PT D/C HOME AMBULATORY, DX WITH JAW PAIN AND HYPERTENSION. bp Vital Signs: 10:27 BP 138 / 84; Pulse 69; Resp 18; Temp 98.1(TE); Pulse Ox 99% on R/A; Weight 79.38 kg; hj Height 5 ft. 10 in. (177.80 cm); 11:37 BP 119 / 73; Pulse 58; Resp 16; Pulse Ox 94% ; bp 10:27 Body Mass Index 25.11 (79.38 kg, 177.80 cm) hj ED Course: 10:24 Patient arrived in ED. hj 10:26 Triage completed. hj 10:27 Arm band placed on left wrist. hj 10:28 Geronimo Campbell MD is Attending Physician. rn 10:29 Jitendra Light RN is Primary Nurse. bp 10:40 Patient has correct armband on for positive identification. Bed in low position. Call bp light in reach. Side rails up X2. 10:55 Inserted saline lock: 22 gauge in left antecubital area, using aseptic technique. Blood bp collected. 10:56 XRAY Chest (1 view) In Process Unspecified. EDMS 11:02 CT completed. Patient tolerated procedure well. Patient moved back from CT. bq 11:02 CT Head Brain wo Cont In Process Unspecified. EDMS 11:48 IV discontinued, intact, bleeding controlled, No redness/swelling at site. Pressure aj dressing applied. 11:53 No provider procedures requiring assistance completed. aj Administered Medications: 11:25 Drug: Zofran 4 mg Route: IVP; Site: left antecubital; bp 11:55 Follow up: Response: No adverse reaction aj Outcome: 11:43 Discharge ordered by . rn 11:53 Discharged to home ambulatory. aj 11:53 Condition: good 11:53 Discharge instructions given to patient, Instructed on discharge instructions, follow up and referral plans. Demonstrated understanding of instructions, follow-up care. 11:59 Patient left the ED. bp Signatures: Dispatcher [employer] Sarah Duncan, Tita Mccloud RN, Roman, MD MD rn Joaquin, Henry, RN RN hj Peltier, Brian, RN RN bp Corrections: (The following items were deleted from the chart) 10:28 10:27 Pulse 69bpm; Resp 18bpm; Pulse Ox 99% RA; Temp 98.1F Temporal; 79.38 kg; Height 5 hj ft. 10 in.; BMI: 25.1; hj
--- NOTE | 2019-01-05 11:44 | EDPHYS ---
Physician Documentation [facility] Name: Alfredo Escobar Age: 58 yrs Sex: Male : 1960 Arrival Date: 01/05/2019 Time: 10:24 Bed 8 Private MD: ED Physician Geronimo Campbell HPI: 01/05 10:42 This 58 yrs old Male presents to ER via Ambulatory with complaints of jaw rn pain. 10:42 REports woke up this AM with jaw pain, right sided, reports had some chest discomfort, rn jaw pain lasted for 5 minutes, took BP and was 170/100, took blood pressure medication and improved, currently asymptomatic. Reports had upper GI scope yesterday, no results yet. . 10:43 Onset: The symptoms/episode began/occurred this morning. Severity of symptoms: At their rn worst the symptoms were mild in the emergency department the symptoms have improved. The patient has not experienced similar symptoms in the past. The patient has been recently seen by a physician:. Historical: - Allergies: 10:27 Bactrim; hj 10:27 Iodinated Contrast Media - IV Dye; hj 10:27 Iodine; hj 10:27 Keflex; hj 10:27 Latex, Natural Rubber; hj 10:27 Levaquin; hj 10:27 promethazine HCl; hj 10:27 Toradol; hj 10:27 Vancomycin; hj - PMHx: 10:27 Anxiety; Arthritis; Crohn's; GERD; Pancreatitis; PTSD; hj - Immunization history:: Adult Immunizations up to date. - Family history:: not pertinent. - Social history:: Smoking status: Patient/guardian denies using tobacco. - Ebola Screening: : Patient negative for fever greater than or equal to 101.5 degrees Fahrenheit, and additional compatible Ebola Virus Disease symptoms Patient denies exposure to infectious person Patient denies travel to an Ebola-affected area in the 21 days before illness onset No symptoms or risks identified at this time. - Hospitalizations: : No recent hospitalization is reported. ROS: 10:43 Constitutional: Negative for fever, chills, and weight loss, Eyes: Negative for injury, rn pain, redness, and discharge, Neck: Negative for injury, pain, and swelling, Cardiovascular: Negative for palpitations, and edema, Respiratory: Negative for shortness of breath, cough, wheezing, and pleuritic chest pain, Abdomen/GI: Negative for abdominal pain, nausea, vomiting, diarrhea, and constipation, MS/Extremity: Negative for injury and deformity, Skin: Negative for injury, rash, and discoloration, Neuro: Negative for headache, weakness, numbness, tingling, and seizure. Exam: 10:43 Constitutional: This is a well developed, well nourished patient who is awake, alert, rn and in no acute distress. Head/Face: Normocephalic, atraumatic. Eyes: Pupils equal round and reactive to light, extra-ocular motions intact. Lids and lashes normal. Conjunctiva and sclera are non-icteric and not injected. Cornea within normal limits. Periorbital areas with no swelling, redness, or edema. ENT: MMM Cardiovascular: Regular rate and rhythm. No murmur. No pulse deficits. Respiratory: Lungs have equal breath sounds bilaterally, clear to auscultation. No increased work of breathing, no retractions or nasal flaring. Abdomen/GI: soft, non-tender MS/ Extremity: Pulses equal, no cyanosis. Neurovascular intact. Full, normal range of motion. Equal circumference. Neuro: Awake and alert, GCS 15, oriented to person, place, time, and situation. Cranial nerves II-XII grossly intact. Motor strength 5/5 in all extremities. Sensory grossly intact. Cerebellar exam normal. Normal gait. Vital Signs: 10:27 BP 138 / 84; Pulse 69; Resp 18; Temp 98.1(TE); Pulse Ox 99% on R/A; Weight 79.38 kg; hj Height 5 ft. 10 in. (177.80 cm); 11:37 BP 119 / 73; Pulse 58; Resp 16; Pulse Ox 94% ; bp 10:27 Body Mass Index 25.11 (79.38 kg, 177.80 cm) MDM: 10:28 Patient medically screened. rn 11:37 Differential Diagnosis hypertensive urgency, anxiety, cardiac event, muscle spasm, rn indigestion. Data reviewed: vital signs, nurses notes, lab test result(s), EKG, radiologic studies, CT scan, plain films, and as a result, I will discharge patient. Counseling: I had a detailed discussion with the patient and/or guardian regarding: the historical points, exam findings, and any diagnostic results supporting the discharge/admit diagnosis, lab results, radiology results, the need for outpatient follow up, to return to the emergency department if symptoms worsen or persist or if there are any questions or concerns that arise at home. Response to treatment: the patient's symptoms have markedly improved after treatment, and as a result, I will discharge patient. Special discussion: I discussed with the patient/guardian in detail that at this point there is no indication for admission to the hospital. It is understood, however, that if the symptoms persist or worsen the patient needs to return immediately for re-evaluation. Based on the history and exam findings, there is no indication for further emergent testing or inpatient evaluation. I discussed with the patient/guardian the need to see the primary care provider for further evaluation of the symptoms. 01/05 10:41 Order name: Basic Metabolic Panel; Complete Time: 11:28 rn 01/05 10:41 Order name: CBC with Diff; Complete Time: 11:15 rn 01/05 10:41 Order name: Troponin (emerg Dept Use Only); Complete Time: 11:28 rn 01/05 10:41 Order name: XRAY Chest (1 view); Complete Time: 11:10 rn 01/05 10:41 Order name: CT Head Brain wo Cont; Complete Time: 11:15 rn 01/05 11:39 Order name: Urine Dipstick--Ancillary (enter results) eb 01/05 10:41 Order name: EKG; Complete Time: 10:42 rn 01/05 10:41 Order name: Cardiac monitoring; Complete Time: 10:47 rn 01/05 10:41 Order name: EKG - Nurse/Tech; Complete Time: 10:47 rn 01/05 10:41 Order name: IV Saline Lock; Complete Time: 10:56 rn 01/05 10:41 Order name: Labs collected and sent; Complete Time: 10:56 rn 01/05 10:41 Order name: O2 Per Protocol; Complete Time: 10:47 rn 01/05 10:41 Order name: O2 Sat Monitoring; Complete Time: 10:47 rn 01/05 11:16 Order name: Urine Dipstick-Ancillary (obtain specimen); Complete Time: 11:25 rn Administered Medications: 11:25 Drug: Zofran 4 mg Route: IVP; Site: left antecubital; bp 11:55 Follow up: Response: No adverse reaction aj Disposition: 01/05/19 11:43 Discharged to Home. Impression: Jaw pain, Hypertension. - Condition is Stable. - Discharge Instructions: Hypertension. - Medication Reconciliation Form, Thank You Letter, Antibiotic Education, Prescription Opioid Use form. - Follow up: Private Physician; When: As needed; Reason: Recheck today's complaints, Re-evaluation by your physician. - Problem is new. - Symptoms have improved. Signatures: Dispatcher [employer] EDMS Sarah Ahuja RN Geronimo Beckett MD MD rn Joaquin, Henry, RN RN hj Peltier, Brian, RN RN bp Corrections: (The following items were deleted from the chart) 11:59 11:43 01/05/2019 11:43 Discharged to Home. Impression: Jaw pain; Hypertension. bp Condition is Stable. Forms are Medication Reconciliation Form, Thank You Letter, Antibiotic Education, Prescription Opioid Use. Follow up: Private Physician; When: As needed; Reason: Recheck today's complaints, Re-evaluation by your physician. Problem is new. Symptoms have improved. rn
[2019-01-05 11:47] LABS: Urine Blood TRACE (NEG); Urine Glucose NEGATIVE (NEG); Urine Protein NEGATIVE (NEG); Urine Specific Gravity 1.015 (1.005-1.030); Urine pH 5.5 (5.0-7.0)
[2019-01-05 12:15] VITALS: TEMP 98.1
[2019-01-05 12:16] VITALS: BP 119/73; O2SAT 94
--- NOTE | 2019-01-07 07:47 | EKG ---
Test Date: 2019-01-05 Test Time: 10:39:27 Farm Equipment Engineer: ISABELLA MEASUREMENT RESULTS: Intervals: Rate: 60 NM: 160 QRSD: 86 QT: 392 QTc: 392 Hellier: P: 45 NM: 160 QRS: 1 T: 20 INTERPRETIVE STATEMENTS: Normal sinus rhythm Normal ECG Compared to ECG 08/24/2018 01:18:45 Sinus bradycardia no longer present Sinus arrhythmia no longer present Electronically Signed On 01-07-19 07:45:34 CDT by José Miguel Gleason
== END 2019-01-05 11:59 | disposition home or self-care (01) ==
LOC: ER 10:27
DX: I10 Essential (primary) hypertension (principal); Z88.1 Allergy status to other antibiotic agents; Z88.3 Allergy status to other anti-infective agents; Z88.5 Allergy status to narcotic agent; Z88.8 Allergy status to other drugs, medicaments and biological substances; Z91.040 Latex allergy status; Z91.041 Radiographic dye allergy status
CPT/HCPCS: 93005; 85025; 80048; 36415; 81003; 84484; 70450; 71045; 96374; 99284; J2405

== ENCOUNTER 2019-01-06 22:38 | Emergency (ER) | payer OTHER ==
--- OUTSIDE RECORDS SUMMARY | 2019-01-06 22:40 | XMS REPORT | Continuity of Care Document ---
:1960 Author Organization [employer] Care Team Providers Name Role Phone [employer] Unavailable Unavailable Problems Problem Status Onset Classification [...] Hydrocodone Refill(s) Bitartrate 10 MG Oral Tablet [[place] 10/325] Clonazepam 2 MG 2 mg=1 Active [...] 09/26/2018 [facility] Respitory Rate 16 09/26/2018 [facility] Systolic (mm Hg) 159 09/26/2018 [facility] Diastolic (mm Hg) 88 09/26/2018 [facility] Encounters Location Location Encounter Encounter Reason Attending ADM DC Status Source Details Type Number For Provider Date Date Visit [facility] [id number] [place] 09[place]26 09/27 [facility] [place] [facility] [id number] [place] 10[facility]31 [facility] [id number] [place] 10/31 10/31 [facility] Pre-Reg [facility] [place] Procedures No Data Provided for This Section Assessment and Plan No Data Provided for This Section Plan of Care No Data Provided for This Section Social History Social History Date Source Social History TypeResponse 09/26/2018 [facility] Smoking Status Former smoker; Type: Cigarettes; Exposure to Tobacco Smoke None; Cigarette Smoking Last 365 Days No; Reg Smoking Cessation Counseling No entered on: 09/26/18 Family History No Data Provided for This Section Advance Directives No Data Provided for This Section Functional Status No Data Provided for This Section
--- OUTSIDE RECORDS SUMMARY | 2019-01-06 22:41 | XMS REPORT ---
[...] Start End Date Status Dosage Date Clonazepam [facility] 71724277212 2 MG Orally twice Active TAKE 1 a day TABLET BY MOUTH TWICE A DAY Results No Known Results Summary Purpose [employer]Works Submission
--- OUTSIDE RECORDS SUMMARY | 2019-01-06 22:41 | XMS REPORT ---
[...] Medications Results No Known Results Summary Purpose [employer] Submission
--- OUTSIDE RECORDS SUMMARY | 2019-01-06 22:41 | XMS REPORT ---
[...] Date Date Albuterol [facility] 77782656885 108 (90 Base) Apr 29, Active 1 puff Sulfate HFA MCG/ACT 2014 Inhalation every 6 hrs ProAir [facility] 30340832119 108 (90 Base) Apr 28, Active 2 puffs as RespiClick MCG/ACT 2014 needed Inhalation q 4-6 h prn Protonix ND 63545829179 40 MG Orally Active 1 tablet Once a day Famotidine ND 15514599128 20 MG Orally Active 1 tablet every 12 hrs at bedtime Clonazepam ND 99429904666 2 MG Orally Active TAKE 1 twice a day TABLET BY MOUTH TWICE A DAY [place] ND 01694631100 7.5-325 MG Apr 29, Active 1 tablet Orally TID-prn 2013 as needed pain Aspirin 81 ND 30050800161 81 MG Orally September Active 1 tablet Once a day 2016 Ondansetron HCl ND 61719744641 4 MG Orally Active 1 tablet Twice a day Ventolin HFA [facility] 78456502932 108 (90 Base) Active 2 puffs MCG/ACT Inhalation TID X 5 days Carvedilol [facility] 06365758213 25 MG Active TAKE 1 TABLET BY MOUTH TWICE A DAY Dicyclomine HCl ND 72461342978 20 MG Orally Active 1 tablet Four times a day Tylenol with [facility] 31898637316 300-30 MG Orally Active 2 tablet Codeine #3 every 6 hrs as needed Results No Known Results Summary Purpose [employer] Submission
--- OUTSIDE RECORDS SUMMARY | 2019-01-06 22:41 | XMS REPORT ---
:1960 [facility] Team Providers Name Role Phone Belinda [...] Status Dosage System Date Date Albuterol [facility] 79006570123 108 (90 Base) Apr 29, Active 1 puff Sulfate HFA MCG/ACT 2014 Inhalation every 6 hrs Clonazepam [facility] 93131508802 2 MG Orally BID Apr 28, Active 1 tablet 2015 Ventolin HFA [facility] 48112481192 108 (90 Base) September Active 2 puffs MCG/ACT 2017 Inhalation TID X 5 days Moro [facility] 01997161165 7.5-325 MG Apr 29, Active 1 tablet as Orally TID-prn 2013 needed pain ProAir [facility] 38082102791 108 (90 Base) Apr 28, Active 2 puffs as RespiClick MCG/ACT 2014 needed Inhalation q 4-6 h prn Creon [facility] 95888579326 [id number] UNIT Jul 17, Active take by Orally 2018 mouth 1 with each meal capsule 3 times a day as directed Carvedilol [facility] 91869673141 25 MG Orally BID Active take 1 tablet by mouth twice a day Protonix [facility] 81353488070 40 MG Orally Active 1 tablet Once a day Aspirin 81 [facility] 71157201287 81 MG Orally September Active 1 tablet Once a day 2016 Results No Known Results Summary Purpose eClinicalWorks Submission
--- OUTSIDE RECORDS SUMMARY | 2019-01-06 22:41 | XMS REPORT ---
[...] Status Dosage System Date Date Carvedilol [facility] 21832111255 25 MG Active TAKE 1 TABLET BY MOUTH TWICE A DAY Creon [facility] 34752620887 48159-27003 Jul 17, Active take by UNIT Orally 2019 mouth 1 tab with each capsule 3 meal times a day as directed Tylenol with NDC 10218974548 300-30 MG Active 2 tablet as Codeine #3 Orally every 6 needed hrs Albuterol ND 32207496807 108 (90 Base) Apr 29, Active 1 puff Sulfate HFA MCG/ACT 2014 Inhalation every 6 hrs [place] ND 17730996484 7.5-325 MG Apr 29, Active 1 tablet as Orally TID-prn 2013 needed pain Famotidine ND 01318249431 20 MG Orally Active 1 tablet at every 12 hrs bedtime Clonazepam ND 99252137168 2 MG Active TAKE 1 TABLET BY MOUTH TWICE A DAY Dicyclomine HCl ND 67969985313 20 MG Orally Active 1 tablet Four times a day Ondansetron HCl ND 75279698843 4 MG Orally Active 1 tablet Twice a day ProAir [facility] 92073675878 108 (90 Base) Apr 28, Active 2 puffs as RespiClick MCG/ACT 2014 needed Inhalation q 4-6 h prn Aspirin 81 ND 85275486954 81 MG Orally September Active 1 tablet Once a day 2016 Protonix ND 05314780546 40 MG Orally Active 1 tablet Once a day Ventolin HFA ND 88877781499 108 (90 Base) September Active 2 puffs MCG/ACT 2017 Inhalation TID X 5 days Results No Known Results Summary Purpose eClinicalWorks Submission
--- OUTSIDE RECORDS SUMMARY | 2019-01-06 22:41 | XMS REPORT ---
:1960 [facility] Team Providers Name Role Phone [...] Status Dosage System Date Date Ondansetron HCl [facility] 25961920551 4 MG Orally Active 1 tablet Twice a day Famotidine ND 54510215039 20 MG Orally Active 1 tablet at every 12 hrs bedtime Dicyclomine HCl ND 55267875069 20 MG Orally Active 1 tablet Four times a day Albuterol [facility] 22779101604 108 (90 Base) Apr 29, Active 1 puff Sulfate HFA MCG/ACT 2014 Inhalation every 6 hrs Creon [facility] 24628458630 [id number] May 18, Active take by UNIT Orally 2018 mouth 1 tab with each capsule 3 meal and snacks times a day as directed Aspirin 81 ND 05061481786 81 MG Orally September Active 1 tablet Once a day 2016 Carvedilol [facility] 09680675707 25 MG Active TAKE 1 TABLET BY MOUTH TWICE A DAY Tylenol with [facility] 45045852257 300-30 MG Active 2 tablet as Codeine #3 Orally every 6 needed hrs Ventolin HFA [facility] 83904185746 108 (90 Base) Active 2 puffs MCG/ACT Inhalation every 6 hrs PRN ProAir [facility] 03121530354 108 (90 Base) Apr 28, Active 2 puffs as RespiClick MCG/ACT 2014 needed Inhalation q 4-6 h prn Clonazepam [facility] 08369226385 2 MG Orally Active TAKE 1 twice a day TABLET BY MOUTH TWICE A DAY Westhoff [facility] 07198621837 7.5-325 MG Apr 29, Active 1 tablet as Orally TID-prn 2013 needed pain Zofran ND 32447936048 8 MG Orally November 19, Active 1 tablet as Once a day 2018 needed Protonix [facility] 18901595082 40 MG Orally Active 1 tablet Once a day Results No Known Results Summary Purpose eClinicalWorks Submission
[2019-01-06 23:39] LABS: Absolute Lymphocytes (CBC) 2.6 K/uL (0.7-4.9); Basophils % 0.3 % (0-1.3); Hematocrit 42.9 % (39.6-49.0); Lymphocytes % 32.9 % (15.3-44.8); MPV 8.5 fL (7.6-11.3); RBC Red Blood Cell Count 4.75 M/uL (4.33-5.43)
[2019-01-06 23:40] LABS: Protime INR 1.1
[2019-01-06 23:59] LABS: ALT/SGPT 21 U/L (12-78); AST/SGOT 13 U/L (15-37); Albumin 3.8 g/dL (3.4-5.0); Alkaline Phosphatase 56 U/L (45-117); BUN Blood Urea Nitrogen 13 mg/dL (7-18); Bicarbonate 30 mmol/L (21-32); Bilirubin Direct 0.2 mg/dL (0-0.2); Bilirubin Total 0.8 mg/dL (0.2-1.0); Glucose Level 94 mg/dL (74-106); Magnesium 2.1 mg/dL (1.8-2.4); NT PRO-BNP 47 pg/mL (<125); Potassium 3.9 mmol/L (3.5-5.1); Protein, Total 7.1 g/dL (6.4-8.2); Sodium Level 143 mmol/L (136-145); Troponin (Emerg Dept Use Only) < 0.02 ng/mL (0.0-0.045)
[2019-01-07 00:46] LABS: Urine Blood TRACE (NEG); Urine Glucose NEGATIVE (NEG); Urine Protein NEGATIVE (NEG); Urine Specific Gravity >1.030 (1.005-1.030); Urine pH 5.5 (5.0-7.0)
--- NOTE | 2019-01-07 01:38 | ER ---
Nurse's Notes [facility] Name: Alfredo Escobar Age: 58 yrs Sex: Male : 1960 Arrival Date: 01/06/2019 Time: 22:42 Bed 18 Private MD: Diagnosis: Pain in left forearm;Pain in left upper arm;Pain in left arm Presentation: 01/06 22:58 Presenting complaint: Patient states: he is having left arm pain and swelling after an bb IV was removed on Monday. Transition of care: patient was not received from another setting of care. Onset of symptoms was January 05, 2019. Risk Assessment: Do you want to hurt yourself or someone else? Patient reports no desire to harm self or others. Initial Sepsis Screen: Does the patient meet any 2 criteria? No. Patient's initial sepsis screen is negative. Does the patient have a suspected source of infection? No. Patient's initial sepsis screen is negative. Care prior to arrival: None. 22:58 Method Of Arrival: Ambulatory bb 22:58 Acuity: BUCKY 4 bb Historical: - Allergies: 23:01 Bactrim; bb 23:01 Iodinated Contrast Media - IV Dye; bb 23:01 Iodine; bb 23:01 Keflex; bb 23:01 Latex, Natural Rubber; bb 23:01 Levaquin; bb 23:01 promethazine HCl; bb 23:01 Toradol; bb 23:01 Vancomycin; bb - Home Meds: 23:01 aspirin 81 mg Oral TbEC once daily [Active]; carvedilol 25 mg Oral tab 2 times per day bb [Active]; clonazepam 2 mg Oral tab 2 times per day [Active]; Maynard 10-325 mg Oral tab twice a day [Active]; pantoprazole 40 mg Oral TbEC once daily [Active]; Ventolin HFA 90 mcg/actuation Nebulizer HFAA 2 puffs every 8 hours [Active]; - PMHx: 23:01 Anxiety; Arthritis; Crohn's; GERD; Pancreatitis; PTSD; bb - Immunization history:: Adult Immunizations up to date. - Social history:: Smoking status: Patient/guardian denies using tobacco. - Ebola Screening: : No symptoms or risks identified at this time. - Family history:: not pertinent. Screenin:59 Abuse screen: Denies threats or abuse. Denies injuries from another. Nutritional cc3 screening: No deficits noted. Tuberculosis screening: No symptoms or risk factors identified. Fall Risk Ambulatory Aid- None/Bed Rest/Nurse Assist (0 pts). Gait- Normal/Bed Rest/Wheelchair (0 pts) Mental Status- Oriented to own ability (0 pts). Assessment: 22:59 General: Appears in no apparent distress. comfortable, Behavior is calm, cooperative, cc3 appropriate for age. Pain: Complains of pain in left arm. Neuro: Level of Consciousness is awake, alert, obeys commands, Oriented to person, place, time, situation, Appropriate for age. Cardiovascular: Denies chest pain, Capillary refill < 3 seconds Patient's skin is warm and dry. Respiratory: Airway is patent Respiratory effort is even, unlabored, Respiratory pattern is regular, symmetrical. GI: Abdomen is round. : No signs and/or symptoms were reported regarding the genitourinary system. EENT: No signs and/or symptoms were reported regarding the EENT system. Derm: Skin is intact, is healthy with good turgor, Skin is pink, warm \T\ dry. normal. Musculoskeletal: Circulation, motion, and sensation intact. Range of motion: intact in all extremities. 23:30 Reassessment: Patient appears in no apparent distress at this time. Patient and/or cc3 family updated on plan of care and expected duration. Pain level reassessed. Patient is alert, oriented x 3, equal unlabored respirations, skin warm/dry/pink. 08/05 00:25 Reassessment: Patient appears in no apparent distress at this time. Patient and/or cc3 family updated on plan of care and expected duration. Pain level reassessed. Patient is alert, oriented x 3, equal unlabored respirations, skin warm/dry/pink. 01:13 Reassessment: Patient appears in no apparent distress at this time. Patient and/or cc3 family updated on plan of care and expected duration. Pain level reassessed. Patient is alert, oriented x 3, equal unlabored respirations, skin warm/dry/pink. Patient taken by heavy line technician to their department by wheelchair. 01:33 Reassessment: Patient came back from ultrasound department, awaiting result. cc3 02:30 Reassessment: Patient appears in no apparent distress at this time. Patient and/or cc3 family updated on plan of care and expected duration. Pain level reassessed. Patient is alert, oriented x 3, equal unlabored respirations, skin warm/dry/pink. Dr. Ferreira discharged the patient home with prescription given. IV cannula removed and patient left ER vitally stable and ambulatory with his grandson. No valuables left in the patient's room. Patient denies pain at this time. Patient states feeling better. Patient states symptoms have improved. Vital Signs: 01/06 23:01 BP 139 / 91; Pulse 69; Resp 16 S; Temp 98.6(O); Pulse Ox 98% on R/A; Weight 81.65 kg bb (R); Height 5 ft. 9 in. (175.26 cm) (R); 01/07 00:18 BP 137 / 89; Pulse 67; Resp 16 S; Pulse Ox 98% on R/A; cc3 01:25 BP 138 / 87; Pulse 65; Resp 16 S; Pulse Ox 97% on R/A; cc3 02:10 BP 131 / 83; Pulse 68; Resp 17 S; Pulse Ox 98% on R/A; cc3 01/06 23:01 Body Mass Index 26.58 (81.65 kg, 175.26 cm) bb ED Course: 01/06 22:42 Patient arrived in ED. es 22:50 Pal Ferreira MD is Attending Physician. mack 22:59 Sylvia Weston is Primary Nurse. cc3 22:59 Patient has correct armband on for positive identification. Placed in gown. Bed in low cc3 position. Call light in reach. Side rails up X 1. alarm security or surveillance monitor on. Pulse ox on. NIBP on. 23:00 Triage completed. bb 23:01 Arm band placed on Patient placed in an exam room, on a stretcher, on pulse oximetry. bb 23:30 Inserted saline lock: 20 gauge in right antecubital area, using aseptic technique. cc3 Blood collected. inserted by biodiesel processing technician Travis. 23:39 XRAY Chest (1 view) In Process Unspecified. EDMS 01/07 01:31 US Extremity Venous Unilateral Ltd In Process Unspecified. EDMS 02:30 No provider procedures requiring assistance completed. IV discontinued, intact, cc3 bleeding controlled, No redness/swelling at site. Pressure dressing applied. Administered Medications: No medications were administered Outcome: 01:37 Discharge ordered by . mack 02:30 Discharged to home ambulatory, with family. cc3 02:30 Condition: stable 02:30 Discharge instructions given to patient, Instructed on discharge instructions, follow up and referral plans. medication usage, Demonstrated understanding of instructions, follow-up care, medications, Prescriptions given X 1. 02:54 Patient left the ED. cc3 Signatures: Dispatcher [employer] Pal Leyva MD MD cha Salyer, Gabrielle Mckee, RN RN Sylvia Jackson cc3
--- NOTE | 2019-01-07 01:38 | EDPHYS ---
Physician Documentation [facility] Name: Alfredo Escobar Age: 58 yrs Sex: Male : 1960 Arrival Date: 01/06/2019 Time: 22:42 Bed 18 Private MD: DANUTA Physician Pal Ferreira HPI: 01/06 23:00 This 58 yrs old Male presents to ER via Unassigned with complaints of left mack upper arm pain, swelling, sp iv last week. 23:00 The patient or guardian complains of decreased range of motion, pain. The complaints mack affect the left bicep, dorsal aspect of left forearm, left tricep and palmar aspect of left forearm. Context: The problem was sustained at an unknown location. Onset: The symptoms/episode began/occurred 3 day(s) ago. Treatment prior to arrival includes: no previous treatment. Modifying factors: The symptoms are alleviated by remaining still, the symptoms are aggravated by movement, bending arm. Associated signs and symptoms: The patient has no apparent associated signs or symptoms. Severity of symptoms: At their worst the symptoms were mild, in the emergency department the symptoms are unchanged. The patient has not experienced similar symptoms in the past. Historical: - Allergies: 23:01 Bactrim; bb 23:01 Iodinated Contrast Media - IV Dye; bb 23:01 Iodine; bb 23:01 Keflex; bb 23:01 Latex, Natural Rubber; bb 23:01 Levaquin; bb 23:01 promethazine HCl; bb 23:01 Toradol; bb 23:01 Vancomycin; bb - Home Meds: 23:01 aspirin 81 mg Oral TbEC once daily [Active]; carvedilol 25 mg Oral tab 2 times per day bb [Active]; clonazepam 2 mg Oral tab 2 times per day [Active]; [place] 10-325 mg Oral tab twice a day [Active]; pantoprazole 40 mg Oral TbEC once daily [Active]; Ventolin HFA 90 mcg/actuation Nebulizer HFAA 2 puffs every 8 hours [Active]; - PMHx: 23:01 Anxiety; Arthritis; Crohn's; GERD; Pancreatitis; PTSD; bb - Immunization history:: Adult Immunizations up to date. - Social history:: Smoking status: Patient/guardian denies using tobacco. - Ebola Screening: : No symptoms or risks identified at this time. - Family history:: not pertinent. ROS: 23:00 Constitutional: Negative for fever, chills, and weight loss, Eyes: Negative for injury, mack pain, redness, and discharge, ENT: Negative for injury, pain, and discharge, Neck: Negative for injury, pain, and swelling, Cardiovascular: Negative for chest pain, palpitations, and edema, Respiratory: Negative for shortness of breath, cough, wheezing, and pleuritic chest pain, Abdomen/GI: Negative for abdominal pain, nausea, vomiting, diarrhea, and constipation, Back: Negative for injury and pain, : Negative for injury, bleeding, discharge, and swelling, Skin: Negative for injury, rash, and discoloration, Neuro: Negative for headache, weakness, numbness, tingling, and seizure, Psych: Negative for depression, anxiety, suicide ideation, homicidal ideation, and hallucinations, Allergy/Immunology: Negative for hives, rash, and allergies, Endocrine: Negative for neck swelling, polydipsia, polyuria, polyphagia, and marked weight changes, Hematologic/Lymphatic: Negative for swollen nodes, abnormal bleeding, and unusual bruising. 23:00 MS/extremity: Positive for decreased range of motion, pain, of the left arm. Exam: 23:00 Constitutional: This is a well developed, well nourished patient who is awake, alert, mack and in no acute distress. Head/Face: Normocephalic, atraumatic. Eyes: Pupils equal round and reactive to light, extra-ocular motions intact. Lids and lashes normal. Conjunctiva and sclera are non-icteric and not injected. Cornea within normal limits. Periorbital areas with no swelling, redness, or edema. ENT: Nares patent. No nasal discharge, no septal abnormalities noted. Tympanic membranes are normal and external auditory canals are clear. Oropharynx with no redness, swelling, or masses, exudates, or evidence of obstruction, uvula midline. Mucous membranes moist. Neck: Trachea midline, no thyromegaly or masses palpated, and no cervical lymphadenopathy. Supple, full range of motion without nuchal rigidity, or vertebral point tenderness. No Meningismus. Chest/axilla: Normal chest wall appearance and motion. Nontender with no deformity. No lesions are appreciated. Cardiovascular: Regular rate and rhythm with a normal S1 and S2. No gallops, murmurs, or rubs. Normal PMI, no JVD. No pulse deficits. Respiratory: Lungs have equal breath sounds bilaterally, clear to auscultation and percussion. No rales, rhonchi or wheezes noted. No increased work of breathing, no retractions or nasal flaring. Abdomen/GI: Soft, non-tender, with normal bowel sounds. No distension or tympany. No guarding or rebound. No evidence of tenderness throughout. Back: No spinal tenderness. No costovertebral tenderness. Full range of motion. Skin: Warm, dry with normal turgor. Normal color with no rashes, no lesions, and no evidence of cellulitis. Neuro: Awake and alert, GCS 15, oriented to person, place, time, and situation. Cranial nerves II-XII grossly intact. Motor strength 5/5 in all extremities. Sensory grossly intact. Cerebellar exam normal. Normal gait. Psych: Awake, alert, with orientation to person, place and time. Behavior, mood, and affect are within normal limits. 23:00 Musculoskeletal/extremity: Extremities: noted in the left arm: decreased ROM, pain, swelling, ROM: full active range of motion, full passive range of motion, Circulation is intact in all extremities. Sensation intact. Compartment Syndrome exam of affected extremity: is normal. DVT Exam: negative Homans' sign noted on exam, no appreciated bluish discoloration, no erythema, no increased warmth, pain, swelling, tenderness, that is mild, of the left leg. Vital Signs: 23:01 BP 139 / 91; Pulse 69; Resp 16 S; Temp 98.6(O); Pulse Ox 98% on R/A; Weight 81.65 kg bb (R); Height 5 ft. 9 in. (175.26 cm) (R); 01/07 00:18 BP 137 / 89; Pulse 67; Resp 16 S; Pulse Ox 98% on R/A; cc3 01:25 BP 138 / 87; Pulse 65; Resp 16 S; Pulse Ox 97% on R/A; cc3 02:10 BP 131 / 83; Pulse 68; Resp 17 S; Pulse Ox 98% on R/A; cc3 01/06 23:01 Body Mass Index 26.58 (81.65 kg, 175.26 cm) bb MDM: 01/06 22:50 Patient medically screened. [facility] 23:00 Data reviewed: vital signs, nurses notes, lab test result(s), EKG, radiologic studies, [facility] doppler, plain films. 01/06 23:00 Order name: Basic Metabolic Panel; Complete Time: 00:11 [facility] 01/06 23:00 Order name: CBC with Diff; Complete Time: 00:11 [facility] 01/06 23:00 Order name: LFT's; Complete Time: 00:11 [facility] 01/06 23:00 Order name: Magnesium; Complete Time: 00:11 [facility] 01/06 23:00 Order name: NT PRO-BNP; Complete Time: 00:11 [facility] 01/06 23:00 Order name: PT-INR; Complete Time: 00:11 [facility] 01/06 23:00 Order name: Troponin (emerg Dept Use Only); Complete Time: 00:11 [facility] 01/06 23:00 Order name: XRAY Chest (1 view) [facility] 01/06 23:00 Order name: EKG; Complete Time: 23:01 [facility] 01/06 23:00 Order name: Cardiac monitoring; Complete Time: 23:10 [facility] 01/06 23:00 Order name: EKG - Nurse/Tech; Complete Time: 23:50 [facility] 01/06 23:00 Order name: IV Saline Lock; Complete Time: 23:50 [facility] 01/06 23:00 Order name: US Extremity Venous Unilateral Ltd [facility] 01/07 00:33 Order name: Urine Dipstick--Ancillary (enter results) ar5 01/06 23:00 Order name: Labs collected and sent; Complete Time: 23:50 [facility] 01/06 23:00 Order name: O2 Per Protocol; Complete Time: 23:11 [facility] 01/06 23:00 Order name: O2 Sat Monitoring; Complete Time: 23:11 [facility] 01/07 00:14 Order name: Urine Dipstick-Ancillary (obtain specimen); Complete Time: 00:37 [facility] Administered Medications: No medications were administered Disposition: 01/07/19 01:37 Discharged to Home. Impression: Pain in left forearm, Pain in left upper arm, Pain in left arm. - Condition is Stable. - Discharge Instructions: Musculoskeletal Pain, Phlebitis, Phlebitis, [id number]. - Prescriptions for Tylenol- Codeine #3 300-30 mg Oral Tablet - take 2 tablets by ORAL route every 6 hours As needed; 20 tablet. - Medication Reconciliation Form, Thank You Letter, Antibiotic Education, Prescription Opioid Use form. - Follow up: Private Physician; When: 2 - 3 days; Reason: Recheck today's complaints, Continuance of care, Re-evaluation by your physician. - Problem is new. - Symptoms have improved. Signatures: Dispatcher [employer] EDNE Pal Ferreira MD MD cha Ballard, Brenda, MARY RN bb Sylvia Weston cc3 Corrections: (The following items were deleted from the chart) 01/07 02:54 01:37 01/07/2019 01:37 Discharged to Home. Impression: Pain in left forearm; Pain in cc3 left upper arm; Pain in left arm. Condition is Stable. Discharge Instructions: Phlebitis, Phlebitis, [id number]. Forms are Medication Reconciliation Form, Thank You Letter, Antibiotic Education, Prescription Opioid Use. Follow up: Private Physician; When: 2 - 3 days; Reason: Recheck today's complaints, Continuance of care, Re-evaluation by your physician. Problem is new. Symptoms have improved. mack
[2019-01-07 03:14] VITALS: TEMP 98.6; O2SAT 98
[2019-01-07 03:15] VITALS: BP 137/89
--- NOTE | 2019-01-07 07:41 | RAD REPORT ---
EXAM DESCRIPTION: US - Extremity Venous Uni Ltd - 01/07/2019 1:31 am CLINICAL HISTORY: Left arm pain and swelling COMPARISON: None. TECHNIQUE: Real-time sonographic evaluation of the left upper extremity deep venous systems was perf ormed. FINDINGS: Normal compressibility, flow augmentation, phasic flow and spontaneous flow are identified in the left upper extremity deep venous system. No intraluminal filling defects seen. Internal jugul ar and subclavian veins are normal as well. IMPRESSION: No DVT in the left upper extremity.
--- NOTE | 2019-01-07 07:43 | EKG ---
Test Date: 2019-01-06 Test Time: 23:37:15 Diamond Die Maker: LUCY MEASUREMENT RESULTS: Intervals: Rate: 52 WV: 134 QRSD: 88 QT: 404 QTc: 375 Hickman: P: 22 WV: 134 QRS: 18 T: 33 INTERPRETIVE STATEMENTS: Sinus bradycardia Otherwise normal ECG Compared to ECG 08/24/2018 01:18:45 Sinus arrhythmia no longer present Electronically Signed On 01-07-19 07:42:00 CDT by José Miguel Gleason
--- NOTE | 2019-01-07 08:23 | RAD REPORT ---
EXAM DESCRIPTION: RAD - Chest Single View - 01/06/2019 11:39 pm CLINICAL HISTORY: Left-sided chest and arm pain COMPARISON: January 2019 TECHNIQUE: AP portable chest image was obtained 2328 hours . FINDINGS: No focal lung parenchymal process. Interstitial pattern is similar to the comparison. Gran ulomatous calcification in the mid left lung field and left hilum unchanged. Heart and vasculature ar e normal. No measurable pleural effusion and no pneumothorax. No acute bony abnormality seen. No acut e aortic findings suspected. IMPRESSION: No acute cardiopulmonary process. Above detailed chest findings are similar to comparison.
== END 2019-01-07 02:54 | disposition home or self-care (01) ==
LOC: ER 22:38
DX: M79.622 Pain in left upper arm (principal); M79.632 Pain in left forearm; F41.9 Anxiety disorder, unspecified; F43.10 Post-traumatic stress disorder, unspecified; Z79.82 Long term (current) use of aspirin; Z88.1 Allergy status to other antibiotic agents; Z88.3 Allergy status to other anti-infective agents; Z88.5 Allergy status to narcotic agent; Z91.040 Latex allergy status; Z91.041 Radiographic dye allergy status; Z91.048 Other nonmedicinal substance allergy status
CPT/HCPCS: 36415; 71045; 80048; 80076; 81003; 83735; 83880; 84484; 85025; 85610; 93005; 93971; 99284

== ENCOUNTER 2019-01-14 13:08 | Emergency (ER) | payer OTHER ==
--- OUTSIDE RECORDS SUMMARY | 2019-01-14 13:11 | XMS REPORT ---
[...] Medications Results No Known Results Summary Purpose [facility] Submission
--- OUTSIDE RECORDS SUMMARY | 2019-01-14 13:11 | XMS REPORT | Continuity of Care Document ---
:1960 Author Organization [employer] Care Team Providers Name Role Phone [employer] Unavailable Unavailable Problems Problem Status Onset Classification [...] Hydrocodone Refill(s) Bitartrate 10 MG Oral Tablet [[place] 10/325] Clonazepam 2 MG 2 mg=1 Active [...] 09/26/2018 [facility] Respitory Rate 16 09/26/2018 [facility] Systolic (mm Hg) 159 09/26/2018 [facility] Diastolic (mm Hg) 88 09/26/2018 [facility] Encounters Location Location Encounter Encounter Reason Attending ADM DC Status Source Details Type Number For Provider Date Date Visit [facility] [id number] [place] 09[place]26 09/27 [facility] [place] [facility] [id number] [place] 10[facility]31 [facility] [id number] [place] 10/31 10/31 [facility]rology Pre-Reg [facility] [place] Procedures No Data Provided for This Section Assessment and Plan No Data Provided for This Section Plan of Care No Data Provided for This Section Social History Social History Date Source Social History TypeResponse 09/26/2018 [facility] Smoking Status Former smoker; Type: Cigarettes; Exposure to Tobacco Smoke None; Cigarette Smoking Last 365 Days No; Reg Smoking Cessation Counseling No entered on: 09/26/18 Family History No Data Provided for This Section Advance Directives No Data Provided for This Section Functional Status No Data Provided for This Section
--- OUTSIDE RECORDS SUMMARY | 2019-01-14 13:11 | XMS REPORT ---
:1960 [facility] Team Providers Name Role [...] End Status Dosage System Date Date Carvedilol [facility] 23776935186 25 MG Active TAKE 1 TABLET BY MOUTH TWICE A DAY [place] [facility] 66060182775 [id number] Jul 17, Active take by UNIT Orally 2019 mouth 1 tab with each capsule 3 meal times a day as directed Tylenol with NDC 05675965321 300-30 MG Active 2 tablet as Codeine #3 Orally every 6 needed hrs Albuterol ND 72389635323 108 (90 Base) Apr 29, Active 1 puff Sulfate HFA MCG/ACT 2014 Inhalation every 6 hrs [place] ND 90498103627 7.5-325 MG Apr 29, Active 1 tablet as Orally TID-prn 2013 needed pain Famotidine ND 07604089206 20 MG Orally Active 1 tablet at every 12 hrs bedtime Clonazepam ND 71562311296 2 MG Active TAKE 1 TABLET BY MOUTH TWICE A DAY Dicyclomine HCl ND 24110106370 20 MG Orally Active 1 tablet Four times a day Ondansetron HCl ND 24888817143 4 MG Orally Active 1 tablet Twice a day ProAir [facility] 96553777356 108 (90 Base) Apr 28, Active 2 puffs as RespiClick MCG/ACT 2014 needed Inhalation q 4-6 h prn Aspirin 81 ND 51658547936 81 MG Orally September Active 1 tablet Once a day 2016 Protonix ND 24077592223 40 MG Orally Active 1 tablet Once a day Ventolin HFA ND 58143209337 108 (90 Base) September Active 2 puffs MCG/ACT 2017 Inhalation TID X 5 days Results No Known Results Summary Purpose eClinicalWorks Submission
--- OUTSIDE RECORDS SUMMARY | 2019-01-14 13:11 | XMS REPORT ---
[...] Dosage Date Clonazepam [facility] 29731069841 2 MG Orally twice Active TAKE 1 a day TABLET BY MOUTH TWICE A DAY Results No Known Results Summary Purpose eClinicalWorks Submission
--- OUTSIDE RECORDS SUMMARY | 2019-01-14 13:11 | XMS REPORT ---
[...] End Status Dosage System Date Date Albuterol [facility] 12399000683 108 (90 Base) Apr 29, Active 1 puff Sulfate HFA MCG/ACT 2014 Inhalation every 6 hrs Clonazepam [facility] 19374350229 2 MG Orally BID Apr 28, Active 1 tablet 2015 Ventolin HFA [facility] 29228827530 108 (90 Base) September Active 2 puffs MCG/ACT 2017 Inhalation TID X 5 days [place] [facility] 09011210882 7.5-325 MG Apr 29, Active 1 tablet as Orally TID-prn 2013 needed pain ProAir [facility] 09936101540 108 (90 Base) Apr 28, Active 2 puffs as RespiClick MCG/ACT 2014 needed Inhalation q 4-6 h prn Creon [facility] [id number] [id number] UNIT Jul 17, Active take by Orally 2018 mouth 1 with each meal capsule 3 times a day as directed Carvedilol [facility] 68400664105 25 MG Orally BID Active take 1 tablet by mouth twice a day Protonix [facility] 47548396663 40 MG Orally Active 1 tablet Once a day Aspirin 81 [facility] 90788747001 81 MG Orally September Active 1 tablet Once a day 2016 Results No Known Results Summary Purpose eClinicalWorks Submission
--- OUTSIDE RECORDS SUMMARY | 2019-01-14 13:12 | XMS REPORT ---
[...] Dosage System Date Date Ondansetron HCl [facility] 43581908524 4 MG Orally Active 1 tablet Twice a day Famotidine ND 74573664301 20 MG Orally Active 1 tablet at every 12 hrs bedtime Dicyclomine HCl ND 31118089982 20 MG Orally Active 1 tablet Four times a day Albuterol [facility] 16841655796 108 (90 Base) Apr 29, Active 1 puff Sulfate HFA MCG/ACT 2014 Inhalation every 6 hrs Creon [facility] 38939335832 [id number] May 18, Active take by UNIT Orally 2018 mouth 1 tab with each capsule 3 meal and snacks times a day as directed Aspirin 81 ND 55194952085 81 MG Orally September Active 1 tablet Once a day 2016 Carvedilol [facility] 66883089682 25 MG Active TAKE 1 TABLET BY MOUTH TWICE A DAY Tylenol with [facility] 40013535619 300-30 MG Active 2 tablet as Codeine #3 Orally every 6 needed hrs Ventolin HFA [facility] 25764090581 108 (90 Base) Active 2 puffs MCG/ACT Inhalation every 6 hrs PRN ProAir [facility] 12063730333 108 (90 Base) Apr 28, Active 2 puffs as RespiClick MCG/ACT 2014 needed Inhalation q 4-6 h prn Clonazepam [facility] 44273006782 2 MG Orally Active TAKE 1 twice a day TABLET BY MOUTH TWICE A DAY [place] [facility] 70672058030 7.5-325 MG Apr 29, Active 1 tablet as Orally TID-prn 2013 needed pain Zofran ND 58713682635 8 MG Orally November 19, Active 1 tablet as Once a day 2018 needed Protonix [facility] 94574777690 40 MG Orally Active 1 tablet Once a day Results No Known Results Summary Purpose eClinicalWorks Submission
--- OUTSIDE RECORDS SUMMARY | 2019-01-14 13:12 | XMS REPORT ---
[...] Status Dosage System Date Date Albuterol [facility] 55942538348 108 (90 Base) Apr 29, Active 1 puff Sulfate HFA MCG/ACT 2014 Inhalation every [address] [facility] 28260461228 108 (90 Base) Apr 28, Active 2 puffs as RespiClick MCG/ACT 2014 needed Inhalation q 4-6 h prn Protonix ND 60905320006 40 MG Orally Active 1 tablet Once a day Famotidine ND 45432607445 20 MG Orally Active 1 tablet every 12 hrs at bedtime Clonazepam ND 08867602525 2 MG Orally Active TAKE 1 twice a day TABLET BY MOUTH TWICE A DAY [place] ND 27274553767 7.5-325 MG Apr 29, Active 1 tablet Orally TID-prn 2013 as needed pain Aspirin 81 ND 87512393237 81 MG Orally September Active 1 tablet Once a day 2016 Ondansetron HCl ND 66198745779 4 MG Orally Active 1 tablet Twice a day Ventolin HFA [facility] 49360146632 108 (90 Base) Active 2 puffs MCG/ACT Inhalation TID X [address] [facility] 01186118336 25 MG Active TAKE 1 TABLET BY MOUTH TWICE A DAY Dicyclomine HCl ND 81311487026 20 MG Orally Active 1 tablet Four times a day Tylenol with [facility] 20468394487 300-30 MG Orally Active 2 tablet Codeine #3 every 6 hrs as needed Results No Known Results Summary Purpose eClinicalWorks Submission
--- NOTE | 2019-01-14 14:19 | EKG ---
Test Date: 2019-01-14 Test Time: 14:16:31 Veneer Drier Feeder: KATY MEASUREMENT RESULTS: Intervals: Rate: 57 CT: 154 QRSD: 82 QT: 402 QTc: 391 Mason: P: 36 CT: 154 QRS: 10 T: 22 INTERPRETIVE STATEMENTS: Sinus bradycardia Otherwise normal ECG Compared to ECG 01/06/2019 23:37:15 No significant changes Electronically Signed On 01-14-19 14:19:15 CDT by José Miguel Gleason
[2019-01-14 14:31] LABS: Protime INR 0.97
[2019-01-14 14:32] LABS: Absolute Lymphocytes (CBC) 2.3 K/uL (0.7-4.9); Basophils % 0.4 % (0-1.3); Hematocrit 42.2 % (39.6-49.0); MPV 8.6 fL (7.6-11.3); RBC Red Blood Cell Count 4.63 M/uL (4.33-5.43)
[2019-01-14 14:46] LABS: ALT/SGPT 24 U/L (12-78); AST/SGOT 17 U/L (15-37); Albumin 3.5 g/dL (3.4-5.0); Alkaline Phosphatase 50 U/L (45-117); BUN Blood Urea Nitrogen 9 mg/dL (7-18); Bicarbonate 28 mmol/L (21-32); Bilirubin Direct < 0.1 mg/dL (0-0.2); Bilirubin Total 0.3 mg/dL (0.2-1.0); Glucose Level 119 mg/dL (74-106); Lipase 168 U/L (73-393); NT PRO-BNP 47 pg/mL (<125); Potassium 3.6 mmol/L (3.5-5.1); Protein, Total 6.7 g/dL (6.4-8.2); Sodium Level 140 mmol/L (136-145); Troponin (Emerg Dept Use Only) < 0.02 ng/mL (0.0-0.045)
[2019-01-14 14:53] LABS: Urine Blood NEGATIVE (NEG); Urine Glucose NEGATIVE (NEG); Urine Protein NEGATIVE (NEG); Urine Specific Gravity 1.015 (1.005-1.030); Urine pH 6.5 (5.0-7.0)
--- NOTE | 2019-01-14 15:21 | RAD REPORT ---
EXAM DESCRIPTION: MRI - C Spine Wo Cont - 01/14/2019 3:06 pm CLINICAL HISTORY: Neck pain, bilateral upper extremity radiculopathy COMPARISON: None. TECHNIQUE: Sagittal T1-weighted, T2-weighted and T2-STIR sequences were obtained as well as T2 medic sequence. FINDINGS: Delete select There is reversal of the usual cervical lordosis at the C6 level. Slight wed ging of the C6 body is present with no active marrow process seen. Patient has fatty marrow degenerat manju changes abutting the endplates at C5-6 and C6-7. Cervical vertebral body height is otherwise norm al. No suspicious marrow edema or marrow replacing process. No paraspinal mass. Cerebellar tonsils and mid-line skull base show no suspicious finding. No significant finding at the C1 and C2 levels. Patient has a congenitally small central canal which magnifies the affects of disease or bone spurrin g. C2-3 level: No disc or bone finding. Central canal is 10 mm. C3-4 level: Very minimal disc bulge flattening the anterior contour the cord. Canal diameter in the m idline is 9 mm. C4-5 level: Protruding disc material in the midline attenuates the anterior subarachnoid space. This flattens the cord. Central canal is 8 mm. C5-6 level: Disc bulge and endplate spurring changes attenuate the anterior subarachnoid space and fl atten the anterior cord. Midline canal is 8 mm. Left uncovertebral joint hypertrophy causes foraminal encroachment. C6-7 level: Prominent disc bulge and endplate spurring attenuate the anterior subarachnoid space. Spi nal stenosis to 8 mm. Left foraminal stenosis present from uncovertebral joint hypertrophy and bulgin g disc material. C7-T1 level: No significant findings. No cord signal abnormality. IMPRESSION: Cervical spondylosis changes at C4-5, C5-6 and C6-7 as detailed above result in spinal s tenosis down to 8 mm. Protruding disc material and bony hypertrophy causes left-sided foraminal stenosis at C5-6 and C6-7. No cord signal abnormality. All spondylosis changes are exaggerated due the affects of a congenitally small central canal.
--- NOTE | 2019-01-14 15:41 | ER ---
Nurse's Notes [facility] Name: Alfredo Escobar Age: 58 yrs Sex: Male : 1960 Arrival Date: 01/14/2019 Time: 13:13 Bed 30 Private MD: Diagnosis: Radiculopathy, cervical region;Radiculopathy;Pain in left shoulder Presentation: 01/14 13:18 Presenting complaint: Patient states: i have abd cramps and i think im stuffed up, my L hj upper arm is hurting;. Transition of care: patient was not received from another setting of care. Onset of symptoms was January 14, 2019. Risk Assessment: Do you want to hurt yourself or someone else? Patient reports no desire to harm self or others. Initial Sepsis Screen: Does the patient meet any 2 criteria? Does the patient have a suspected source of infection? No. Patient's initial sepsis screen is negative. Care prior to arrival: None. 13:18 Method Of Arrival: Ambulatory 13:18 Acuity: BUCKY 3 hj Historical: - Allergies: 13:20 Bactrim; hj 13:20 Iodinated Contrast Media - IV Dye; hj 13:20 Iodine; hj 13:20 Keflex; hj 13:20 Latex, Natural Rubber; hj 13:20 Levaquin; hj 13:20 promethazine HCl; hj 13:20 Toradol; hj 13:20 Vancomycin; hj - PMHx: 13:20 Anxiety; Arthritis; Crohn's; GERD; Pancreatitis; PTSD; hj - Immunization history:: Adult Immunizations up to date. - Social history:: Smoking status: unknown. - Family history:: not pertinent. - Ebola Screening: : Patient negative for fever greater than or equal to 101.5 degrees Fahrenheit, and additional compatible Ebola Virus Disease symptoms Patient denies exposure to infectious person No symptoms or risks identified at this time. Screenin:37 Abuse screen: Denies threats or abuse. Denies injuries from another. Nutritional rv screening: No deficits noted. Tuberculosis screening: No symptoms or risk factors identified. Fall Risk None identified. Assessment: 14:36 General: Appears in no apparent distress. uncomfortable, Behavior is calm, cooperative. rv Pain: Complains of pain in left arm and left tricep and posterior aspect of left shoulder and left shoulder. Neuro: Level of Consciousness is awake, alert, obeys commands, Oriented to person, place, time, situation. Cardiovascular: Patient's skin is warm and dry. Respiratory: Airway is patent. GI: No signs and/or symptoms were reported involving the gastrointestinal system. : No signs and/or symptoms were reported regarding the genitourinary system. EENT: No signs and/or symptoms were reported regarding the EENT system. Derm: Skin is intact. Musculoskeletal: Range of motion: limited in left shoulder Swelling absent. Vital Signs: 13:20 BP 131 / 86; Pulse 69; Resp 18; Temp 99.0(TE); Pulse Ox 100% on R/A; Weight 78.47 kg; hj Height 5 ft. 9 in. (175.26 cm); Pain 10/10; 14:30 BP 124 / 81; Pulse 71; Resp 16; Pulse Ox 100% on R/A; rv 16:30 BP 121 / 76; Pulse 66; Resp 16; Pulse Ox 99% on R/A; rv 13:20 Body Mass Index 25.55 (78.47 kg, 175.26 cm) ED Course: 13:13 Patient arrived in ED. rg4 13:19 Triage completed. hj 13:20 Arm band placed on right wrist. hj 13:48 Pal Ferreira MD is Attending Physician. mack 13:56 Nelson Emerson, MARY is Primary Nurse. rv 14:15 Inserted saline lock: 22 gauge in right antecubital area, using aseptic technique. rv 14:17 EKG done, by electrocardiogram technician. reviewed by Pal Ferreira MD. sm3 14:20 Urine collected: clean catch specimen, clear, evi colored. Patient maintains SpO2 jp3 saturation greater than 95% on room air. 14:38 Patient has correct armband on for positive identification. Placed in gown. Bed in low rv position. Call light in reach. Side rails up X 1. Pulse ox on. NIBP on. 14:55 C Spine Wo Cont In Process Unspecified. EDMS 15:16 XRAY Chest (1 view) In Process Unspecified. EDMS 15:41 Jermaine Aragon MD is Referral Physician. mack 15:41 Jose Luis Zaragoza MD is Referral Physician. mack 16:28 Shoulder Left (2 View) XRAY In Process Unspecified. EDMS 16:38 IV discontinued, intact, bleeding controlled, No redness/swelling at site. Pressure rv dressing applied. 16:38 No provider procedures requiring assistance completed. rv Administered Medications: 02:05 Drug: NS 0.9% 1000 ml Route: IV; Rate: 125 ml/hr; Site: right antecubital; rv 16:36 Follow up: IV Status: Order to discontinue infusion; IV Intake: 500ml rv 16:36 Not Given (Patient Refused): Decadron - Dexamethasone 10 mg IVP once rv Intake: 16:36 IV: 500ml; Total: 500ml. rv Outcome: 15:41 Discharge ordered by . mack 16:39 Discharged to home ambulatory. rv 16:39 Condition: good 16:39 Discharge instructions given to patient, Instructed on discharge instructions, follow up and referral plans. medication usage, Demonstrated understanding of instructions, follow-up care, medications, Prescriptions given X 3. 16:43 Patient left the ED. rv Signatures: Dispatcher [employer] EDDC Pal Ferreira MD MD cha Joaquin, Henry, RN RN Ava Kerr rg4 Jolly Nuñez 3 Nelson Emerson, RN RN Nicolas Andino jp3 Corrections: (The following items were deleted from the chart) 13:22 13:20 Pulse 69bpm; Resp 18bpm; Pulse Ox 100% RA; Temp 99.0F Temporal; 78.47 kg; Height hj 5 ft. 9 in.; BMI: 25.5; Pain 10/10; hj
[2019-01-14] MEDS ORDERED: dexAMETHasone 10 MG/ML VIAL ONE (15:42)
--- NOTE | 2019-01-14 15:42 | EDPHYS ---
Physician Documentation [facility] Name: Alfredo Escobar Age: 58 yrs Sex: Male : 1960 Arrival Date: 01/14/2019 Time: 13:13 Bed 30 Private MD: Pal Collins HPI: 01/14 14:09 This 58 yrs old Male presents to ER via Ambulatory with complaints of Sick. mack 14:09 The patient or guardian complains of decreased range of motion, pain. left shoulder. mack Context: The problem was sustained at an unknown site, resulted from an unknown reason, The patient experiences decreased range of motion, The patient reports no obvious deformity. Onset: The symptoms/episode began/occurred 3 week(s) ago. Modifying factors: the symptoms are alleviated by remaining still, The symptoms are aggravated by movement. Associated signs and symptoms: The patient has no apparent associated signs or symptoms. The patient or guardian complains of decreased range of motion, pain, spasm. The complaints affect the posterior aspect of left shoulder and left tricep. Historical: - Allergies: 13:20 Bactrim; hj 13:20 Iodinated Contrast Media - IV Dye; hj 13:20 Iodine; hj 13:20 Keflex; hj 13:20 Latex, Natural Rubber; hj 13:20 Levaquin; hj 13:20 promethazine HCl; hj 13:20 Toradol; hj 13:20 Vancomycin; hj - PMHx: 13:20 Anxiety; Arthritis; Crohn's; GERD; Pancreatitis; PTSD; hj - Immunization history:: Adult Immunizations up to date. - Social history:: Smoking status: unknown. - Family history:: not pertinent. - Ebola Screening: : Patient negative for fever greater than or equal to 101.5 degrees Fahrenheit, and additional compatible Ebola Virus Disease symptoms Patient denies exposure to infectious person No symptoms or risks identified at this time. ROS: 14:09 Constitutional: Negative for fever, chills, and weight loss, Eyes: Negative for injury, mack pain, redness, and discharge, ENT: Negative for injury, pain, and discharge, Neck: Negative for injury, pain, and swelling, Cardiovascular: Negative for chest pain, palpitations, and edema, Respiratory: Negative for shortness of breath, cough, wheezing, and pleuritic chest pain, Abdomen/GI: Negative for abdominal pain, nausea, vomiting, diarrhea, and constipation, Back: Negative for injury and pain, : Negative for injury, bleeding, discharge, and swelling, Skin: Negative for injury, rash, and discoloration, Neuro: Negative for headache, weakness, numbness, tingling, and seizure, Psych: Negative for depression, anxiety, suicide ideation, homicidal ideation, and hallucinations, Allergy/Immunology: Negative for hives, rash, and allergies, Endocrine: Negative for neck swelling, polydipsia, polyuria, polyphagia, and marked weight changes, Hematologic/Lymphatic: Negative for swollen nodes, abnormal bleeding, and unusual bruising. 14:09 MS/extremity: Positive for decreased range of motion, pain, tenderness, of the posterior aspect of left shoulder and left tricep. Exam: 14:09 Constitutional: This is a well developed, well nourished patient who is awake, alert, mack and in no acute distress. Head/Face: Normocephalic, atraumatic. Eyes: Pupils equal round and reactive to light, extra-ocular motions intact. Lids and lashes normal. Conjunctiva and sclera are non-icteric and not injected. Cornea within normal limits. Periorbital areas with no swelling, redness, or edema. ENT: Nares patent. No nasal discharge, no septal abnormalities noted. Tympanic membranes are normal and external auditory canals are clear. Oropharynx with no redness, swelling, or masses, exudates, or evidence of obstruction, uvula midline. Mucous membranes moist. Neck: Trachea midline, no thyromegaly or masses palpated, and no cervical lymphadenopathy. Supple, full range of motion without nuchal rigidity, or vertebral point tenderness. No Meningismus. Chest/axilla: Normal chest wall appearance and motion. Nontender with no deformity. No lesions are appreciated. Cardiovascular: Regular rate and rhythm with a normal S1 and S2. No gallops, murmurs, or rubs. Normal PMI, no JVD. No pulse deficits. Respiratory: Lungs have equal breath sounds bilaterally, clear to auscultation and percussion. No rales, rhonchi or wheezes noted. No increased work of breathing, no retractions or nasal flaring. Abdomen/GI: Soft, non-tender, with normal bowel sounds. No distension or tympany. No guarding or rebound. No evidence of tenderness throughout. Back: No spinal tenderness. No costovertebral tenderness. Full range of motion. Male : Normal genitalia with no discharge or lesions. Skin: Warm, dry with normal turgor. Normal color with no rashes, no lesions, and no evidence of cellulitis. Neuro: Awake and alert, GCS 15, oriented to person, place, time, and situation. Cranial nerves II-XII grossly intact. Motor strength 5/5 in all extremities. Sensory grossly intact. Cerebellar exam normal. Normal gait. Psych: Awake, alert, with orientation to person, place and time. Behavior, mood, and affect are within normal limits. Vital Signs: 13:20 BP 131 / 86; Pulse 69; Resp 18; Temp 99.0(TE); Pulse Ox 100% on R/A; Weight 78.47 kg; hj Height 5 ft. 9 in. (175.26 cm); Pain 10/10; 14:30 BP 124 / 81; Pulse 71; Resp 16; Pulse Ox 100% on R/A; rv 16:30 BP 121 / 76; Pulse 66; Resp 16; Pulse Ox 99% on R/A; rv 13:20 Body Mass Index 25.55 (78.47 kg, 175.26 cm) hj MDM: 13:57 Patient medically screened. [facility] 14:12 Data reviewed: vital signs, nurses notes, lab test result(s), EKG, radiologic studies, [facility] MRI, plain films. 01/14 13:55 Order name: Basic Metabolic Panel; Complete Time: 15:30 [facility] 01/14 13:55 Order name: CBC with Diff; Complete Time: 15:30 [facility] 01/14 13:55 Order name: LFT's; Complete Time: 15:30 [facility] 01/14 13:55 Order name: Magnesium; Complete Time: 15:30 [facility] 01/14 13:55 Order name: NT PRO-BNP; Complete Time: 15:30 [facility] 01/14 13:55 Order name: PT-INR; Complete Time: 15:30 [facility] 01/14 13:55 Order name: Troponin (emerg Dept Use Only); Complete Time: 15:30 [facility] 01/14 13:55 Order name: XRAY Chest (1 view) [facility] 01/14 13:55 Order name: Lipase; Complete Time: 15:30 [facility] 01/14 14:02 Order name: C Spine Wo Cont; Complete Time: 15:30 EDMS 01/14 14:46 Order name: Urine Dipstick--Ancillary (enter results); Complete Time: 15:30 bd 01/14 15:32 Order name: Shoulder Left (2 View) XRAY [facility] 01/14 13:55 Order name: EKG; Complete Time: 13:56 [facility] 01/14 13:55 Order name: Cardiac monitoring [facility] 01/14 13:55 Order name: EKG - Nurse/Tech [facility] 01/14 13:55 Order name: IV Saline Lock; Complete Time: 14:37 [facility] 01/14 13:55 Order name: Labs collected and sent; Complete Time: 14:37 [facility] 01/14 13:55 Order name: O2 Per Protocol; Complete Time: 14:37 [facility] 01/14 13:55 Order name: O2 Sat Monitoring; Complete Time: 14:37 [facility] 01/14 13:55 Order name: Urine Dipstick-Ancillary (obtain specimen); Complete Time: 14:36 [facility] Administered Medications: 02:05 Drug: NS 0.9% 1000 ml Route: IV; Rate: 125 ml/hr; Site: right antecubital; rv 16:36 Follow up: IV Status: Order to discontinue infusion; IV Intake: 500ml rv 16:36 Not Given (Patient Refused): Decadron - Dexamethasone 10 mg IVP once rv Disposition: 01/14/19 15:41 Discharged to Home. Impression: Radiculopathy, cervical region, Radiculopathy, Pain in left shoulder. - Condition is Stable. - Discharge Instructions: Cervical Radiculopathy, Musculoskeletal Pain, Shoulder Pain, Shoulder Pain, [id number], Aspirin and Your Heart, Cervical Radiculopathy, [id number]-[id number], Radicular Pain. - Prescriptions for Tylenol- Codeine #3 300-30 mg Oral Tablet - take 2 tablets by ORAL route every 6 hours As needed; 26 tablet. Medrol (Gm) 4 mg Oral Tablets, Dose Pack - take 1 tablet by ORAL route as directed - follow package instructions; 1 packet. Cyclobenzaprine 5 mg Oral Tablet - take 1 tablet by ORAL route 3 times per day As needed; 15 tablet. - Medication Reconciliation Form, Thank You Letter, Antibiotic Education, Prescription Opioid Use form. - Follow up: Private Physician; When: 2 - 3 days; Reason: Recheck today's complaints, Continuance of care, Re-evaluation by your physician. Follow up: Jermaine Aragon; When: 2 - 3 days; Reason: Recheck today's complaints, Re-evaluation by your physician. Follow up: Jose Luis Zaragoza; When: 2 - 3 days; Reason: Recheck today's complaints, Re-evaluation by your physician. - Problem is new. - Symptoms have improved. Signatures: Dispatcher [employer] EDPal Storm MD MD cha Joaquin, Henry, RN RN hj Nelson Emerson RN RN rv Corrections: (The following items were deleted from the chart) 16:43 15:41 01/14/2019 15:41 Discharged to Home. Impression: Radiculopathy, cervical region; rv Radiculopathy; Pain in left shoulder. Condition is Stable. Discharge Instructions: Cervical Radiculopathy, Musculoskeletal Pain, Shoulder Pain, Shoulder Pain, [id number], Aspirin and Your Heart, Cervical Radiculopathy, [id number], Radicular Pain. Prescriptions for Tylenol-Codeine #3 300-30 mg Oral Tablet - take 2 tablets by ORAL route every 6 hours As needed; 26 tablet, Medrol (Gm) 4 mg Oral Tablets, Dose Pack - take 1 tablet by ORAL route as directed - follow package instructions; 1 packet, Cyclobenzaprine 5 mg Oral Tablet - take 1 tablet by ORAL route 3 times per day As needed; 15 tablet. and Forms are Medication Reconciliation Form, Thank You Letter, Antibiotic Education, Prescription Opioid Use. Follow up: Private Physician; When: 2 - 3 days; Reason: Recheck today's complaints, Continuance of care, Re-evaluation by your physician. Follow up: Jermaine rAagon; When: 2 - 3 days; Reason: Recheck today's complaints, Re-evaluation by your physician. Follow up: Jose Luis Zaragoza; When: 2 - 3 days; Reason: Recheck today's complaints, Re-evaluation by your physician. Problem is new. Symptoms have improved. mcak
[2019-01-14] MEDS ORDERED: NA CHLORIDE 0.9% 500 ML ONE (15:45)
--- NOTE | 2019-01-14 15:55 | RAD REPORT ---
EXAM DESCRIPTION: RAD - Chest Single View - 01/14/2019 3:18 pm CLINICAL HISTORY: Arm pain, chest pain COMPARISON: January 06 TECHNIQUE: AP portable chest image was obtained 1515 hours . FINDINGS: No acute lung parenchymal process. Granulomatous calcifications in the left hilum and left midlung field are stable. Heart and vasculature are normal. No measurable pleural effusion and no pn eumothorax. No acute bony abnormality seen. No acute aortic findings suspected. IMPRESSION: No acute cardiopulmonary process. Chest findings are stable from January 06.
--- NOTE | 2019-01-14 16:51 | RAD REPORT ---
EXAM DESCRIPTION: RAD - Shoulder Left 2 View - 01/14/2019 4:23 pm CLINICAL HISTORY: Fall, left shoulder and arm pain COMPARISON: None. TECHNIQUE: Internal and external rotation views of the left shoulder were obtained. FINDINGS: No fracture or dislocation of the proximal left humerus. Degenerative changes are seen jose ng the greater tuberosity. Patient has advanced degenerative change to the undersurface of the acromi on. The acromial humeral joint space is narrowed and the patient likely has a chronic rotator cuff te ar. Mild degenerative change at the AC joint. No acute clavicle finding. IMPRESSION: Prominent degenerative change involving the acromion and acromial humeral joint space. No fracture or acute finding.
[2019-01-14 21:24] VITALS: TEMP 99
[2019-01-14 21:27] VITALS: BP 121/76; O2SAT 99
== END 2019-01-14 16:43 | disposition home or self-care (01) ==
LOC: ER 13:08
DX: M54.12 Radiculopathy, cervical region (principal); F41.9 Anxiety disorder, unspecified; K50.90 Crohn's disease, unspecified, without complications; K21.9 Gastro-esophageal reflux disease without esophagitis; Z88.8 Allergy status to other drugs, medicaments and biological substances; Z88.1 Allergy status to other antibiotic agents; Z91.041 Radiographic dye allergy status; Z91.040 Latex allergy status
CPT/HCPCS: 36415; 71045; 72141; 80048; 80076; 81003; 83690; 83735; 83880; 84484; 85025; 85610; 93005; 96360; 96361; 99284; J1100

== ENCOUNTER 2019-03-01 13:06 | Emergency (ER) | payer OTHER ==
[2019-03-01] MEDS ORDERED: NA CHLORIDE 0.9% 1,000 ML ONE (13:53)
[2019-03-01 14:26] LABS: BUN Blood Urea Nitrogen 13 mg/dL (7-18); Bicarbonate 30 mmol/L (21-32); Glucose Level 111 mg/dL (74-106); Sodium Level 143 mmol/L (136-145)
[2019-03-01 14:36] LABS: Absolute Lymphocytes (CBC) 1.9 K/uL (0.7-4.9); Basophils % 0.6 % (0-1.3); Hematocrit 40.2 % (39.6-49.0); Lymphocytes % 31.8 % (15.3-44.8); MPV 8.4 fL (7.6-11.3); RBC Red Blood Cell Count 4.49 M/uL (4.33-5.43)
--- NOTE | 2019-03-01 14:45 | EDPHYS ---
Physician Documentation [facility] Name: Alfredo Escobar Age: 58 yrs Sex: Male : 1960 Arrival Date: 03/01/2019 Time: 13:12 Bed 13 Private MD: ED Physician Geronimo Campebll HPI: 03/01 13:50 This 58 yrs old Male presents to ER via Ambulatory with complaints of Doesn't jr8 Feel Right. 13:51 Onset: The symptoms/episode began/occurred at an unknown time. Severity of symptoms: At jr8 their worst the symptoms were mild. Pt reports that he thinks he may be dehydrated, has had muscle twitching, sensation of dizziness. Denies chest pain, Denies SOB, denies SIDHU.. Historical: - Allergies: 13:19 Bactrim; aj1 13:19 Iodinated Contrast Media - IV Dye; aj1 13:19 Iodine; aj1 13:19 Keflex; aj1 13:19 Latex, Natural Rubber; aj1 13:19 Levaquin; aj1 13:19 promethazine HCl; aj1 13:19 Toradol; aj1 - Home Meds: 13:19 Creon oral 01326 units oral 3 times per day [Active]; pantoprazole 40 mg Oral TbEC once aj1 daily [Active]; [place] 10-325 mg Oral tab twice a day [Active]; clonazepam 2 mg Oral tab 2 times per day [Active]; calcipotriene 0.005 % topical oint 2 times per day [Active]; carvedilol 25 mg Oral tab 2 times per day [Active]; aspirin 81 mg Oral TbEC once daily [Active]; Ventolin HFA 90 mcg/actuation Nebulizer HFAA 2 puffs every 8 hours [Active]; - PMHx: 13:19 Anxiety; Arthritis; Crohn's; GERD; Pancreatitis; PTSD; aj1 - Immunization history:: Flu vaccine is not up to date. - Social history:: Smoking status: Patient/guardian denies using tobacco. - Ebola Screening: : Patient denies travel to an Ebola-affected area in the 21 days before illness onset. ROS: 13:52 Constitutional: Negative for fever, chills, and weight loss, Eyes: Negative for injury, jr8 pain, redness, and discharge, ENT: Negative for injury, pain, and discharge, Neck: Negative for injury, pain, and swelling, Back: Negative for injury and pain, MS/Extremity: Negative for injury and deformity. 13:52 Cardiovascular: Negative for chest pain, edema, orthopnea, palpitations. 13:52 Respiratory: Negative for cough, hemoptysis, orthopnea, pleurisy, shortness of breath, sputum production, wheezing. 13:52 Abdomen/GI: Positive for constipation, Negative for nausea and vomiting, dysphagia, hematemesis, black/tarry stool, rectal pain, rectal bleeding. Exam: 13:53 Constitutional: This is a well developed, well nourished patient who is awake, alert, jr8 and in no acute distress. Head/Face: Normocephalic, atraumatic. Eyes: Pupils equal round and reactive to light, extra-ocular motions intact. Lids and lashes normal. Conjunctiva and sclera are non-icteric and not injected. Cornea within normal limits. Periorbital areas with no swelling, redness, or edema. ENT: Nares patent. No nasal discharge, no septal abnormalities noted. Tympanic membranes are normal and external auditory canals are clear. Oropharynx with no redness, swelling, or masses, exudates, or evidence of obstruction, uvula midline. Mucous membranes moist. Neck: Trachea midline, no thyromegaly or masses palpated, and no cervical lymphadenopathy. Supple, full range of motion without nuchal rigidity, or vertebral point tenderness. No Meningismus. 13:53 Chest/axilla: Inspection: normal, Palpation: is normal, no crepitus, no tenderness. 13:53 Cardiovascular: Pulses: no pulse deficits are appreciated, Heart sounds: normal, normal S1and S2, Edema: is not appreciated, JVD: is not appreciated. 13:53 Respiratory: the patient does not display signs of respiratory distress, Respirations: normal, Breath sounds: are clear throughout. Vital Signs: 13:19 BP 148 / 94; Pulse 66; Resp 18; Temp 97.7; Pulse Ox 97% on R/A; Pain 0/10; aj1 14:22 BP 134 / 84 Supine; Pulse 52; mt 14:22 BP 143 / 93 Sitting; Pulse 77; mt 14:22 BP 152 / 96 Standing; Pulse 97; mt MDM: 13:24 Patient medically screened. jr8 14:42 Data reviewed: vital signs, nurses notes, lab test result(s), EKG, and as a result, I 8 will discharge patient. Data interpreted: Pulse oximetry: on room air is 97 %. Interpretation: normal. Counseling: I had a detailed discussion with the patient and/or guardian regarding: the historical points, exam findings, and any diagnostic results supporting the discharge/admit diagnosis, lab results, the need for outpatient follow up, a family practitioner, to return to the emergency department if symptoms worsen or persist or if there are any questions or concerns that arise at home. Response to treatment: the patient's symptoms have markedly improved after treatment, patient is well hydrated. 03/01 13:49 Order name: CBC with Diff; Complete Time: 14:41 [facility] 03/01 13:49 Order name: BMP; Complete Time: 14:38 [facility] 03/01 13:49 Order name: Orthostatics; Complete Time: 14:23 [facility] 03/01 13:49 Order name: EKG - Nurse/Tech; Complete Time: 14:16 [facility] Administered Medications: 14:10 Drug: NS 0.9% 1000 ml Route: IV; Rate: 1 bolus; Site: right antecubital; [facility] 15:36 Follow up: IV Status: Completed infusion; IV Intake: 1000ml [facility] 15:15 Drug: Meclizine 25 mg Route: PO; [facility] 15:37 Follow up: Response: Medication administered at discharge. [facility] Disposition: 18:29 Co-signature as Attending Physician, Geronimo Campbell MD. rn Disposition: 03/01/19 14:42 Discharged to Home. Impression: Muscle weakness (generalized), Dizziness and giddiness. - Condition is Stable. - Discharge Instructions: Dizziness, Weakness. - Prescriptions for Meclizine 25 mg Oral Tablet - take 1 tablet by ORAL route every 8 hours As needed; 30 tablet. - Medication Reconciliation Form, Thank You Letter, Antibiotic Education, Prescription Opioid Use form. - Follow up: Private Physician; When: 2 - 3 days; Reason: Recheck today's complaints, Continuance of care, Re-evaluation by your physician. - Problem is new. - Symptoms have improved. Signatures: Dispatcher [employer] EDMS Michelle Shields RN RN aj1 Geronimo Campbell MD MD rn Roszak, Josh, PA PA jr8 Morales Santos, RN RN jl7 Corrections: (The following items were deleted from the chart) 14:43 14:42 03/01/2019 14:42 Discharged to Home. Impression: Muscle weakness (generalized). jr8 Condition is Stable. Forms are Medication Reconciliation Form, Thank You Letter, Antibiotic Education, Prescription Opioid Use. Follow up: Private Physician; When: 2 - 3 days; Reason: Recheck today's complaints, Continuance of care, Re-evaluation by your physician. Problem is new. Symptoms have improved. jr8 15:38 14:43 03/01/2019 14:42 Discharged to Home. Impression: Muscle weakness (generalized); jl7 Dizziness and giddiness. Condition is Stable. Discharge Instructions: Weakness. Forms are Medication Reconciliation Form, Thank You Letter, Antibiotic Education, Prescription Opioid Use. Follow up: Private Physician; When: 2 - 3 days; Reason: Recheck today's complaints, Continuance of care, Re-evaluation by your physician. Problem is new. Symptoms have improved. jr8
--- NOTE | 2019-03-01 14:45 | ER ---
Nurse's Notes [facility] Name: Alfredo Escobar Age: 58 yrs Sex: Male : 1960 Arrival Date: 03/01/2019 Time: 13:12 Bed 13 Private MD: Diagnosis: Muscle weakness (generalized);Dizziness and giddiness Presentation: 03/01 13:11 Presenting complaint: Patient states: Yesterday he was feeling fatigued and he has been aj1 having some neck pain. Today he was feeling dizzy, got dry mouth and couldn't speak. Reports that this lasted for a couple minutes and its resolved. During this episode he noticed his arms was twitching and his hand was spasming. Transition of care: patient was not received from another setting of care. Onset of symptoms was March 01, 2019. Risk Assessment: Do you want to hurt yourself or someone else? Patient reports no desire to harm self or others. Initial Sepsis Screen: Does the patient meet any 2 criteria? No. Patient's initial sepsis screen is negative. Does the patient have a suspected source of infection? No. Patient's initial sepsis screen is negative. Care prior to arrival: None. 13:11 Method Of Arrival: Ambulatory aj1 13:11 Acuity: BUCKY 3 aj1 Triage Assessment: 13:19 General: Appears in no apparent distress. comfortable, Behavior is calm, cooperative, aj1 appropriate for age. Pain: Denies pain. Neuro: Level of Consciousness is awake, alert, obeys commands. Cardiovascular: Patient's skin is warm and dry. Respiratory: Airway is patent Respiratory effort is even, unlabored, Respiratory pattern is regular, symmetrical. Historical: - Allergies: 13:19 Bactrim; aj1 13:19 Iodinated Contrast Media - IV Dye; aj1 13:19 Iodine; aj1 13:19 Keflex; aj1 13:19 Latex, Natural Rubber; aj1 13:19 Levaquin; aj1 13:19 promethazine HCl; aj1 13:19 Toradol; aj1 - Home Meds: 13:19 Creon oral 42032 units oral 3 times per day [Active]; pantoprazole 40 mg Oral TbEC once aj1 daily [Active]; [place] 10-325 mg Oral tab twice a day [Active]; clonazepam 2 mg Oral tab 2 times per day [Active]; calcipotriene 0.005 % topical oint 2 times per day [Active]; carvedilol 25 mg Oral tab 2 times per day [Active]; aspirin 81 mg Oral TbEC once daily [Active]; Ventolin HFA 90 mcg/actuation Nebulizer HFAA 2 puffs every 8 hours [Active]; - PMHx: 13:19 Anxiety; Arthritis; Crohn's; GERD; Pancreatitis; PTSD; aj1 - Immunization history:: Flu vaccine is not up to date. - Social history:: Smoking status: Patient/guardian denies using tobacco. - Ebola Screening: : Patient denies travel to an Ebola-affected area in the 21 days before illness onset. Screenin:45 Abuse screen: Denies threats or abuse. Denies injuries from another. Nutritional jl7 screening: No deficits noted. Tuberculosis screening: No symptoms or risk factors identified. Fall Risk IV access (20 points). Total Preciado Fall Scale indicates No Risk (0-24 pts). Assessment: 13:45 General: Appears in no apparent distress. uncomfortable, Behavior is cooperative, jl7 anxious. Pain: Complains of pain in neck. Neuro: Level of Consciousness is awake, alert, obeys commands, Oriented to person, place, time, situation, Moves all extremities. Full function Gait is steady, Speech is normal, Facial symmetry appears normal. Cardiovascular: Patient's skin is warm and dry. Respiratory: Airway is patent Respiratory effort is even, unlabored, Respiratory pattern is regular, symmetrical. GI: No signs and/or symptoms were reported involving the gastrointestinal system. : No signs and/or symptoms were reported regarding the genitourinary system. EENT: No signs and/or symptoms were reported regarding the EENT system. Derm: Skin is pink, warm \T\ dry. Musculoskeletal: Range of motion: intact in all extremities. 14:45 Reassessment: Patient appears in no apparent distress at this time. No changes from jl7 previously documented assessment. Patient and/or family updated on plan of care and expected duration. Pain level reassessed. Patient is alert, oriented x 3, equal unlabored respirations, skin warm/dry/pink. Vital Signs: 13:19 BP 148 / 94; Pulse 66; Resp 18; Temp 97.7; Pulse Ox 97% on R/A; Pain 0/10; aj1 14:22 BP 134 / 84 Supine; Pulse 52; mt 14:22 BP 143 / 93 Sitting; Pulse 77; mt 14:22 BP 152 / 96 Standing; Pulse 97; mt ED Course: 13:12 Patient arrived in ED. mr 13:16 Triage completed. aj1 13:19 Arm band placed on Patient placed in an exam room. aj1 13:22 Morales Santos RN is Primary Nurse. jl7 13:24 Dayron Martins PA is PHCP. jr8 13:24 Geronimo Campbell MD is Attending Physician. jr8 14:03 EKG done, by technical supervisor. reviewed by Dayron LESLIE. 3 14:10 Initial lab(s) drawn, by me, sent to lab. Inserted saline lock: 20 gauge in right jl7 antecubital area, using aseptic technique. Blood collected. 14:45 Patient has correct armband on for positive identification. Placed in gown. Bed in low jl7 position. Call light in reach. Side rails up X 1. shelter monitor on. Pulse ox on. NIBP on. Warm blanket given. 15:26 No provider procedures requiring assistance completed. ss 15:38 IV discontinued, intact, bleeding controlled, No redness/swelling at site. Pressure jl7 dressing applied. Administered Medications: 14:10 Drug: NS 0.9% 1000 ml Route: IV; Rate: 1 bolus; Site: right antecubital; jl7 15:36 Follow up: IV Status: Completed infusion; IV Intake: 1000ml jl7 15:15 Drug: Meclizine 25 mg Route: PO; jl7 15:37 Follow up: Response: Medication administered at discharge. jl7 Intake: 15:36 IV: 1000ml; Total: 1000ml. jl7 Outcome: 14:42 Discharge ordered by . jr8 15:26 Condition: good ss 15:26 Discharge instructions given to patient, Instructed on discharge instructions, follow up and referral plans. medication usage, Demonstrated understanding of instructions, follow-up care, medications, Prescriptions given X 1. 15:38 Discharged to home ambulatory. jl7 15:38 Patient left the ED. jl7 Signatures: Michelle Shields RN RN aj1 Genesis Rodney mr Keyla Scott RN RN Dayron Martins PA PA jr8 Morales Santos RN RN jl7 Crystal Wadsworth mt, Shakira sm3 Corrections: (The following items were deleted from the chart) 15:36 04:10 NS 0.9% 1000 ml IV at 1 bolus in right antecubital sukumar lin7
[2019-03-01] MEDS ORDERED: MECLIZINE HCL 12.5 MG TAB ONE (15:11)
[2019-03-01 15:45] VITALS: TEMP 97.7; O2SAT 97
[2019-03-01 15:46] VITALS: BP 152/96
--- NOTE | 2019-03-02 07:20 | EKG ---
Test Date: 2019-03-01 Test Time: 13:58:57 Cover Seamer: KATY MEASUREMENT RESULTS: Intervals: Rate: 53 MS: 154 QRSD: 82 QT: 400 QTc: 375 [place]: P: 48 MS: 154 QRS: 5 T: 16 INTERPRETIVE STATEMENTS: Sinus bradycardia Otherwise normal ECG Compared to ECG 01/14/2019 14:16:31 No significant changes Electronically Signed On 03-02-19 07:19:38 CDT by José Miguel Gleason
== END 2019-03-01 15:38 | disposition home or self-care (01) ==
LOC: ER 13:06
DX: M62.81 Muscle weakness (generalized) (principal); F41.9 Anxiety disorder, unspecified; Z79.82 Long term (current) use of aspirin; Z88.1 Allergy status to other antibiotic agents; Z88.5 Allergy status to narcotic agent; Z88.8 Allergy status to other drugs, medicaments and biological substances; Z91.040 Latex allergy status; Z91.041 Radiographic dye allergy status
CPT/HCPCS: 93005; 85025; 80048; 36415; 96360; 99284; J7030

== ENCOUNTER 2019-03-14 00:36 | Emergency (ER) | payer OTHER ==
[2019-03-14] MEDS ORDERED: NA CHLORIDE 0.9% 1,000 ML ONE (01:28)
[2019-03-14 01:35] LABS: Absolute Lymphocytes (CBC) 2.4 K/uL (0.7-4.9); Basophils % 0.4 % (0-1.3); Hematocrit 43.9 % (39.6-49.0); Lymphocytes % 32.6 % (15.3-44.8); MPV 8.1 fL (7.6-11.3); RBC Red Blood Cell Count 4.82 M/uL (4.33-5.43)
[2019-03-14 01:53] LABS: Albumin 3.8 g/dL (3.4-5.0); Bilirubin Total 0.7 mg/dL (0.2-1.0); Potassium 4.1 mmol/L (3.5-5.1); Protein, Total 6.7 g/dL (6.4-8.2)
[2019-03-14 01:56] LABS: Urine Blood TRACE (NEG); Urine Glucose NEGATIVE (NEG); Urine Protein NEGATIVE (NEG)
--- NOTE | 2019-03-14 03:26 | ER ---
Nurse's Notes [facility] Name: Alfredo Escobar Age: 58 yrs Sex: Male : 1960 Arrival Date: 03/14/2019 Time: 00:37 Bed 8 Private MD: Diagnosis: paresthesia;numbness Presentation: 03/14 00:46 Presenting complaint: Patient states: i feel shaky, checked my sugar and it is normal. rv suddenly I felt numbness on my left hand and on the right side of my head. Transition of care: patient was not received from another setting of care. Onset of symptoms was March 13, 2019 at 21:00. Risk Assessment: Do you want to hurt yourself or someone else? Patient reports no desire to harm self or others. Initial Sepsis Screen: Does the patient meet any 2 criteria? No. Patient's initial sepsis screen is negative. Does the patient have a suspected source of infection? No. Patient's initial sepsis screen is negative. Care prior to arrival: None. 00:46 Method Of Arrival: Ambulatory rv 00:46 Acuity: BUCKY 3 rv Triage Assessment: 00:50 General: Appears in no apparent distress. Behavior is anxious. Pain: Denies pain. EENT: rv No signs and/or symptoms were reported regarding the EENT system. Neuro: Level of Consciousness is awake, alert, obeys commands, Oriented to person, place, time, situation, Reports numbness in left hand and right side of the head. Cardiovascular: Patient's skin is warm and dry. Respiratory: Airway is patent. GI: No signs and/or symptoms were reported involving the gastrointestinal system. : No signs and/or symptoms were reported regarding the genitourinary system. Derm: Skin is intact. Musculoskeletal: No signs and/or symptoms reported regarding the musculoskeletal system. Historical: - Allergies: 00:49 Bactrim; rv 00:49 Iodinated Contrast Media - IV Dye; rv 00:49 Iodine; rv 00:49 Keflex; rv 00:49 Latex, Natural Rubber; rv 00:49 Levaquin; rv 00:49 promethazine HCl; rv 00:49 Toradol; rv - Home Meds: 00:49 aspirin 81 mg Oral TbEC once daily [Active]; calcipotriene 0.005 % Topical oint 2 times rv per day [Active]; carvedilol 25 mg Oral tab 2 times per day [Active]; clonazepam 2 mg Oral tab 2 times per day [Active]; Creon 98565 units Oral 3 times per day [Active]; [place] 10-325 mg Oral tab twice a day [Active]; pantoprazole 40 mg Oral TbEC once daily [Active]; Ventolin HFA 90 mcg/actuation Nebulizer HFAA 2 puffs every 8 hours [Active]; - PMHx: 00:49 Anxiety; Arthritis; Crohn's; GERD; Pancreatitis; PTSD; rv 00:50 HIV; rv - PSHx: 00:49 None; rv - Immunization history:: Adult Immunizations not up to date. - Social history:: Smoking status: Patient/guardian denies using tobacco, never smoked. - Ebola Screening: : No symptoms or risks identified at this time. Screenin:25 Abuse screen: Denies threats or abuse. Nutritional screening: No deficits noted. jb4 Tuberculosis screening: No symptoms or risk factors identified. Fall Risk IV access (20 points). Total Preciado Fall Scale indicates No Risk (0-24 pts). Assessment: 01:25 General: Appears in no apparent distress. comfortable, Behavior is anxious, PT reports jb4 feeling hung over. states "I just get these really bad dizzy spells that come and go. I was nausea earlier today but now I just feel hung over. I feel like I have this not in my stomach on my left side. Earlier I had numbness in my left hand and the right side of my head and it went away. I think it was just another bad spell but it scared me enough to come here. Sometimes I get this stiffness in my neck that comes and goes. I also have this sensation in my ears like I have pressure behind them. It's like I need to blow my nose or something but I do not know, it's just a weird pressure.". Pain: Denies pain. Neuro: Level of Consciousness is awake, alert, obeys commands, Oriented to person, place, time, situation. Cardiovascular: Patient's skin is warm and dry. Respiratory: Airway is patent Respiratory effort is even, unlabored, Respiratory pattern is regular, symmetrical. GI: Patient currently denies abdominal pain, nausea, pain, vomiting, Pt reports feeling like he has a knot in his stomach, and feels hung over. denies pain. : No deficits noted. No signs and/or symptoms were reported regarding the genitourinary system. EENT: No deficits noted. No signs and/or symptoms were reported regarding the EENT system. Derm: Skin is intact, Skin is pink, warm \\T\\ dry. Musculoskeletal: Circulation, motion, and sensation intact. Range of motion: intact in all extremities. 01:51 Reassessment: PT to Ct. jb4 02:19 Reassessment: Patient appears in no apparent distress at this time. Patient and/or jb4 family updated on plan of care and expected duration. Pain level reassessed. Patient is alert, oriented x 3, equal unlabored respirations, skin warm/dry/pink. 03:25 Reassessment: Patient appears in no apparent distress at this time. Patient and/or jb4 family updated on plan of care and expected duration. Pain level reassessed. Patient is alert, oriented x 3, equal unlabored respirations, skin warm/dry/pink. Vital Signs: 00:47 BP 163 / 84; Resp 16; Temp 98.8; Height 5 ft. 9 in. (175.26 cm); rv 00:51 Pulse 74; Pulse Ox 98% on R/A; ak1 02:00 BP 138 / 66; Pulse 61; Resp 16; Pulse Ox 97% on R/A; jb4 03:00 BP 120 / 75; Pulse 68; Resp 16; Pulse Ox 96% on R/A; jb4 ED Course: 00:37 Patient arrived in ED. ds1 00:47 Triage completed. rv 00:51 Deric Black MD is Attending Physician. ps1 00:51 Patient has correct armband on for positive identification. Placed in gown. Bed in low rv position. Call light in reach. Side rails up X 1. Pulse ox on. NIBP on. 00:51 Patient placed in the treatment room, on a stretcher, on pulse oximetry, Patient rv notified of wait time. 01:25 No provider procedures requiring assistance completed. Initial lab(s) drawn, by , soheila sent to lab. Inserted saline lock: 20 gauge in right antecubital area, using aseptic technique. Blood collected. 01:39 CMP Sent. jb4 01:40 Jose Luis Corea RN is Primary Nurse. jb4 02:12 CT completed. Patient tolerated procedure well. Patient moved to CT via stretcher. Patient moved back from CT. 02:14 CXR XRAY In Process Unspecified. EDMS 02:14 CT Head Brain wo Cont In Process Unspecified. EDMS 03:24 Pio Armstrong MD is Referral Physician. ps1 03:35 IV discontinued, intact, bleeding controlled, No redness/swelling at site. Pressure jb4 dressing applied. Administered Medications: 01:30 Drug: NS 0.9% 1000 ml Route: IV; Rate: 1000 ml; Site: right antecubital; jb4 02:30 Follow up: IV Status: Completed infusion; IV Intake: 1000ml jb4 Intake: 02:30 IV: 1000ml; Total: 1000ml. jb4 Outcome: 03:25 Discharge ordered by MD. ps1 03:35 Discharged to home ambulatory, with family. jb4 03:35 Condition: stable 03:35 Discharge instructions given to patient, Instructed on discharge instructions, follow up and referral plans. Demonstrated understanding of instructions, follow-up care. 03:35 Patient left the ED. jb4 Signatures: Dispatcher [employer] EDAR Cristopher Huertas Charmaine Hartman ds1 Janet Napoles RN RN ak1 Jose Luis Corea RN RN jb4 Deric Black MD MD ps1 Nelson Emerson RN RN rv Corrections: (The following items were deleted from the chart) 02:21 01:25 GI: No deficits noted. No signs and/or symptoms were reported involving the jb4 gastrointestinal system. jb4 02:21 01:25 GI: Pt reports feeling like he has a knot in his stomach, and feels hung over. jb4 denies pain. jb4
--- NOTE | 2019-03-14 03:26 | EDPHYS ---
Physician Documentation [facility] Name: Alfredo Escobar Age: 58 yrs Sex: Male : 1960 Arrival Date: 03/14/2019 Time: 00:37 Bed 8 Private MD: ED Physician Deric Black HPI: 03/14 01:29 This 58 yrs old Male presents to ER via Ambulatory with complaints of ps1 Numbness. 01:29 patient states that he had intermittent numbness to the left hand which was transient. ps1 Patient states that he may be dehydrated. He additionally attests to burning sensation to the top of the head. He has been seen and evaluated for similar complaints in the past with Dr. Engle. He denies chest pain, tightness, pressure. He has a history of anxiety. . Historical: - Allergies: 00:49 Bactrim; rv 00:49 Iodinated Contrast Media - IV Dye; rv 00:49 Iodine; rv 00:49 Keflex; rv 00:49 Latex, Natural Rubber; rv 00:49 Levaquin; rv 00:49 promethazine HCl; rv 00:49 Toradol; rv - Home Meds: 00:49 aspirin 81 mg Oral TbEC once daily [Active]; calcipotriene 0.005 % Topical oint 2 times rv per day [Active]; carvedilol 25 mg Oral tab 2 times per day [Active]; clonazepam 2 mg Oral tab 2 times per day [Active]; Creon 61896 units Oral 3 times per day [Active]; [place] 10-325 mg Oral tab twice a day [Active]; pantoprazole 40 mg Oral TbEC once daily [Active]; Ventolin HFA 90 mcg/actuation Nebulizer HFAA 2 puffs every 8 hours [Active]; - PMHx: 00:49 Anxiety; Arthritis; Crohn's; GERD; Pancreatitis; PTSD; rv 00:50 HIV; rv - PSHx: 00:49 None; rv - Immunization history:: Adult Immunizations not up to date. - Social history:: Smoking status: Patient/guardian denies using tobacco, never smoked. - Ebola Screening: : No symptoms or risks identified at this time. ROS: 01:31 Constitutional: Negative for fever, chills, and weight loss, Eyes: Negative for injury, ps1 pain, redness, and discharge, Cardiovascular: Negative for chest pain, palpitations, and edema, Respiratory: Negative for shortness of breath, cough, wheezing, and pleuritic chest pain, Abdomen/GI: Negative for abdominal pain, nausea, vomiting, diarrhea, and constipation, MS/Extremity: Negative for injury and deformity, Skin: Negative for injury, rash, and discoloration. 01:31 Neuro: Positive for numbness. Exam: :31 Constitutional: This is a well developed, well nourished patient who is awake, alert, ps1 and in no acute distress. Head/Face: Normocephalic, atraumatic. Eyes: Pupils equal round and reactive to light, extra-ocular motions intact. Lids and lashes normal. Conjunctiva and sclera are non-icteric and not injected. Chest/axilla: Normal chest wall appearance and motion. Nontender with no deformity. No lesions are appreciated. Cardiovascular: Regular rate and rhythm. No gallops, murmurs, or rubs. Normal PMI, no JVD. No pulse deficits. Respiratory: Lungs have equal breath sounds bilaterally, clear to auscultation and percussion. No rales, rhonchi or wheezes noted. No increased work of breathing, no retractions or nasal flaring. Abdomen/GI: Soft, non-tender, with normal bowel sounds. No distension or tympany. No guarding or rebound. No evidence of tenderness throughout. MS/ Extremity: Pulses equal, no cyanosis. Neurovascular intact. Full, normal range of motion. Neuro: Awake and alert, GCS 15, oriented to person, place, time, and situation. Cranial nerves II-XII grossly intact. Sensory grossly intact. Psych: Awake, alert, with orientation to person, place and time. Behavior, mood, and affect are within normal limits. Vital Signs: 00:47 BP 163 / 84; Resp 16; Temp 98.8; Height 5 ft. 9 in. (175.26 cm); rv 00:51 Pulse 74; Pulse Ox 98% on R/A; ak1 02:00 BP 138 / 66; Pulse 61; Resp 16; Pulse Ox 97% on R/A; jb4 03:00 BP 120 / 75; Pulse 68; Resp 16; Pulse Ox 96% on R/A; jb4 MDM: 01:16 Patient medically screened. ps1 03/14 01:14 Order name: CBC with Diff; Complete Time: 01:52 ps1 03/14 01:14 Order name: CMP; Complete Time: 01:54 ps1 03/14 01:14 Order name: CXR XRAY ps1 03/14 01:14 Order name: CT Head Brain wo Cont ps1 03/14 01:40 Order name: Urine Dipstick--Ancillary (enter results); Complete Time: 01:57 em1 03/14 01:14 Order name: Urine Dipstick-Ancillary (obtain specimen); Complete Time: 01:39 ps1 Administered Medications: 01:30 Drug: NS 0.9% 1000 ml Route: IV; Rate: 1000 ml; Site: right antecubital; jb4 02:30 Follow up: IV Status: Completed infusion; IV Intake: 1000ml jb4 Disposition: 03/14/19 03:25 Discharged to Home. Impression: paresthesia, numbness. - Condition is Stable. - Discharge Instructions: Paresthesia, [id number]. - Medication Reconciliation Form, Thank You Letter, Antibiotic Education, Prescription Opioid Use form. - Follow up: Pio Armstrong MD; When: 24 Hours; Reason: Further diagnostic work-up, Recheck today's complaints, Continuance of care, Re-evaluation by your physician. Follow up: Emergency Department; When: As needed; Reason: Worsening of condition. - Problem is an ongoing problem. - Symptoms are resolved. Signatures: Dispatcher [employer] EDMS Jose Luis Corea RN RN jb4 Deric Black MD MD ps1 Nelson Emerson RN RN rv Corrections: (The following items were deleted from the chart) 01:33 01:29 patient states that he had intermittent numbness to the left hand which was ps1 transient. Patient states that he may be dehydrated. He has been seen and evaluated for . ps1 03:35 03:25 03/14/2019 03:25 Discharged to Home. Impression: paresthesia; numbness. Condition jb4 is Stable. Forms are Medication Reconciliation Form, Thank You Letter, Antibiotic Education, Prescription Opioid Use. Follow up: Pio Armstrong; When: 24 Hours; Reason: Further diagnostic work-up, Recheck today's complaints, Continuance of care, Re-evaluation by your physician. Follow up: Emergency Department; When: As needed; Reason: Worsening of condition. Problem is an ongoing problem. Symptoms are resolved. ps1
[2019-03-14 03:41] VITALS: TEMP 98.8
[2019-03-14 03:45] VITALS: BP 120/75; O2SAT 96
--- NOTE | 2019-03-14 08:22 | RAD REPORT ---
EXAM DESCRIPTION: RAD - Chest Single View - 03/14/2019 2:13 am CLINICAL HISTORY: COUGH Chest pain. COMPARISON: Chest Single View dated 01/14/2019; Chest Single View dated 01/06/2019; Chest Single View d ated 01/05/2019; Abdomen Acute Series dated 11/10/2018 FINDINGS: Portable technique limits examination quality. Calcified left hilar lymph node this and left mid lung granuloma compatible with prior granulomatous infection. The lungs are otherwise clear. The heart is normal in size. No displaced fractures. IMPRESSION: No acute intrathoracic process suspected.
--- NOTE | 2019-03-14 10:00 | RAD REPORT ---
EXAM DESCRIPTION: Head Brain Wo Cont CLINICAL HISTORY: Numbness left hand TECHNIQUE: Contiguous axial CT images obtained through the brain without IV contrast. Coronal and sa gittal reformatted images were provided. This exam was performed according to our departmental dose-optimization program, which includes autom ated exposure control, adjustment of the mA and/or kV according to patient size and/or use of iterati ve reconstruction technique. COMPARISON: 01/05/2019 FINDINGS: Brain: No significant white matter changes. No focal mass effect. Barron-white matter differ entiation is within normal limits. No hemorrhage. Ventricles: No ventriculomegaly or midline shift. Extra-axial spaces: No extra-axial collection or hemorrhage. Paranasal sinuses and mastoid air cells: Well-aerated Vessels: Unremarkable Bones: Unremarkable Soft tissues: Unremarkable IMPRESSION: No acute hemorrhage, focal mass or large territory infarction. Electronically signed by: Alex Busby MD 03/14/2019 2:57 AM CDT Due to temporary technical issues with the PACS/Fluency reporting system, reports are being signed by the in house radiologist as a courtesy to ensure prompt reporting. The interpreting radiologist is f ully responsible for the content of the report.
== END 2019-03-14 03:35 | disposition home or self-care (01) ==
LOC: ER 00:36
DX: R20.0 Anesthesia of skin (principal); F41.9 Anxiety disorder, unspecified; F43.10 Post-traumatic stress disorder, unspecified; Z79.82 Long term (current) use of aspirin
CPT/HCPCS: 85025; 36415; 81003; 80053; 70450; 71045; 96360; 99284; J7030

== ENCOUNTER 2019-04-05 20:31 | Emergency (ER) | payer OTHER ==
[2019-04-05] MEDS ORDERED: ONDANSETRON 4 MG/2 ML VIAL ONE (20:57)
[2019-04-05] MEDS ORDERED: BISACODYL 10 MG RECTAL SUPP ONE (20:57)
[2019-04-05] MEDS ORDERED: LACTULOSE 20 GM/30 ML UCUP ONE (20:58)
[2019-04-05] MEDS ORDERED: NA CHLORIDE 0.9% 1,000 ML ONE (20:58)
[2019-04-05 21:06] LABS: Basophils % 0.5 % (0-1.3); Hematocrit 44.2 % (39.6-49.0); Lymphocytes % 28.6 % (15.3-44.8); MPV 8.3 fL (7.6-11.3); RBC Red Blood Cell Count 4.84 M/uL (4.33-5.43)
[2019-04-05 21:25] LABS: ALT/SGPT 22 U/L (12-78); AST/SGOT 16 U/L (15-37); Albumin 3.8 g/dL (3.4-5.0); Alkaline Phosphatase 52 U/L (45-117); BUN Blood Urea Nitrogen 10 mg/dL (7-18); Bicarbonate 29 mmol/L (21-32); Bilirubin Direct 0.1 mg/dL (0-0.2); Bilirubin Total 0.4 mg/dL (0.2-1.0); Glucose Level 89 mg/dL (74-106); Lipase 175 U/L (73-393); Potassium 4.1 mmol/L (3.5-5.1); Protein, Total 7.1 g/dL (6.4-8.2); Sodium Level 142 mmol/L (136-145)
[2019-04-05 21:44] LABS: Urine Blood NEGATIVE (NEG); Urine Glucose NEGATIVE (NEG); Urine Protein NEGATIVE (NEG); Urine pH 6.5 (5.0-7.0)
--- NOTE | 2019-04-05 22:10 | ER ---
Nurse's Notes [facility] Name: Alfredo Escobar Age: 58 yrs Sex: Male : 1960 Arrival Date: 04/05/2019 Time: 20:34 Bed 8 Private MD: Diagnosis: Constipation;Nausea Presentation: 04/05 20:45 Presenting complaint: Patient states: he started feeling bad this morning feels bb "stopped up and dehydrated" has not had a "good bowel movement in 4 to 5 days". Transition of care: patient was not received from another setting of care. Onset of symptoms was April 05, 2019. Risk Assessment: Do you want to hurt yourself or someone else? Patient reports no desire to harm self or others. Initial Sepsis Screen: Does the patient meet any 2 criteria? No. Patient's initial sepsis screen is negative. Does the patient have a suspected source of infection? No. Patient's initial sepsis screen is negative. Care prior to arrival: None. 20:45 Method Of Arrival: Ambulatory bb 20:45 Acuity: BUCKY 3 bb Historical: - Allergies: 20:50 Bactrim; bb 20:50 Iodinated Contrast Media - IV Dye; bb 20:50 Iodine; bb 20:50 Keflex; bb 20:50 Latex, Natural Rubber; bb 20:50 Levaquin; bb 20:50 promethazine HCl; bb 20:50 Toradol; bb - Home Meds: 20:50 aspirin 81 mg Oral TbEC once daily [Active]; calcipotriene 0.005 % Topical oint 2 times bb per day [Active]; carvedilol 25 mg Oral tab 2 times per day [Active]; clonazepam 2 mg Oral tab 2 times per day [Active]; Creon 75346 units Oral 3 times per day [Active]; [place] 10-325 mg Oral tab twice a day [Active]; pantoprazole 40 mg Oral TbEC once daily [Active]; Ventolin HFA 90 mcg/actuation Nebulizer HFAA 2 puffs every 8 hours [Active]; - PMHx: 20:50 Anxiety; Arthritis; Crohn's; GERD; HIV; Pancreatitis; PTSD; bb - PSHx: 20:50 None; bb - Immunization history:: Adult Immunizations up to date. - Social history:: Smoking status: Patient/guardian denies using tobacco. - Ebola Screening: : No symptoms or risks identified at this time. Screenin:07 Abuse screen: Denies threats or abuse. Denies injuries from another. Nutritional lp1 screening: No deficits noted. Tuberculosis screening: No symptoms or risk factors identified. Fall Risk None identified. Assessment: 20:45 General: Appears uncomfortable, Behavior is appropriate for age. Pain: Complains of lp1 pain in abdomen Pain currently is 8 out of 10 on a pain scale. Quality of pain is described as crampy. Neuro: Level of Consciousness is awake, alert, obeys commands, Oriented to person, place, time, situation, Gait is steady. Cardiovascular: Patient's skin is warm and dry. Respiratory: Respiratory effort is even, unlabored. GI: Abdomen is non-distended, Bowel sounds present X 4 quads. Reports constipation. : Reports urinary frequency. EENT: No signs and/or symptoms were reported regarding the EENT system. Derm: Skin is pink, warm \\T\\ dry. Musculoskeletal: No deficits noted. 21:45 Reassessment: Patient returned from radiology at this time. lp1 22:38 Reassessment: Dr. Ferreira at bedside to discuss results with patient. lp1 Vital Signs: 20:50 BP 144 / 78; Pulse 57; Resp 16 S; Pulse Ox 97% on R/A; Weight 77.11 kg (R); Height 5 bb ft. 10 in. (177.80 cm) (R); Pain 5/10; 21:50 BP 126 / 72; Pulse 56; Resp 18; Temp 97.8(TE); Pulse Ox 99% on R/A; lp1 22:47 BP 122 / 61; Pulse 52; Resp 18; Pulse Ox 99% on R/A; lp1 20:50 Body Mass Index 24.39 (77.11 kg, 177.80 cm) bb ED Course: 20:34 Patient arrived in ED. cl3 20:38 Pal Ferreira MD is Attending Physician. mack 20:45 Sophy Worley, MARY is Primary Nurse. lp1 20:48 Triage completed. bb 20:50 Arm band placed on Patient placed in an exam room, on a stretcher, on pulse oximetry. bb 20:50 Inserted saline lock: 20 gauge in right antecubital area, using aseptic technique. lp1 Blood collected. 21:07 Patient has correct armband on for positive identification. Pulse ox on. NIBP on. lp1 21:56 Abdomen Acute Series XRAY In Process Unspecified. EDMS 21:58 No provider procedures requiring assistance completed. lp1 22:08 Nirmala Concepcion MD is Referral Physician. [facility] 22:46 IV discontinued, No redness/swelling at site. Pressure dressing applied. lp1 Administered Medications: 21:04 Drug: NS 0.9% 1000 ml Route: IV; Rate: 1 bolus; Site: right antecubital; lp1 22:31 Follow up: IV Status: Completed infusion; IV Intake: 1000ml lp1 21:04 Drug: Zofran 4 mg Route: IVP; Site: right antecubital; lp1 21:57 Follow up: Response: No adverse reaction; Nausea is decreased lp1 21:04 Drug: Lactulose 30 grams Volume: 45 ml; Route: PO; lp1 22:31 Follow up: Response: No adverse reaction lp1 21:10 Drug: Dulcolax Suppository 10 mg Route: MN; lp1 22:31 Follow up: Response: No adverse reaction lp1 Intake: 22:31 IV: 1000ml; Total: 1000ml. lp1 Outcome: 22:09 Discharge ordered by . [facility] 22:46 Discharged to home ambulatory, with family. lp1 22:46 Condition: good 22:46 Discharge instructions given to patient, Instructed on discharge instructions, follow up and referral plans. medication usage, Demonstrated understanding of instructions, follow-up care, medications, Prescriptions given X 3. 22:58 Patient left the ED. bb Signatures: Dispatcher [employer] EDTX Pal Ferreira MD MD cha Ballard, Brenda, RN RN bb Sophy Worley, RN RN lp1 Rasheeda Gamez cl3 Corrections: (The following items were deleted from the chart) 22:01 21:50 BP 126 / 72; Pulse 56bpm; Resp 18bpm; Pulse Ox 99% RA; lp1 lp1
--- NOTE | 2019-04-05 22:10 | EDPHYS ---
Physician Documentation [facility] Name: Alfredo Escobar Age: 58 yrs Sex: Male : 1960 Arrival Date: 04/05/2019 Time: 20:34 Bed 8 Private MD: DANUTA Physician Pal Ferreira HPI: 04/05 21:35 This 58 yrs old Male presents to ER via Ambulatory with complaints of Nausea, mack Constipation. 21:35 The patient presents to the emergency department with nausea, abdominal pain, of the mack right lower quadrant and left lower quadrant. Onset: The symptoms/episode began/occurred 3 day(s) ago. Possible causes: unknown. The symptoms are aggravated by. Associated signs and symptoms: The patient has no apparent associated signs or symptoms. Severity of symptoms: At their worst the symptoms were. The patient has not experienced similar symptoms in the past. Historical: - Allergies: 20:50 Bactrim; bb 20:50 Iodinated Contrast Media - IV Dye; bb 20:50 Iodine; bb 20:50 Keflex; bb 20:50 Latex, Natural Rubber; bb 20:50 Levaquin; bb 20:50 promethazine HCl; bb 20:50 Toradol; bb - Home Meds: 20:50 aspirin 81 mg Oral TbEC once daily [Active]; calcipotriene 0.005 % Topical oint 2 times bb per day [Active]; carvedilol 25 mg Oral tab 2 times per day [Active]; clonazepam 2 mg Oral tab 2 times per day [Active]; Creon 76541 units Oral 3 times per day [Active]; [place] 10-325 mg Oral tab twice a day [Active]; pantoprazole 40 mg Oral TbEC once daily [Active]; Ventolin HFA 90 mcg/actuation Nebulizer HFAA 2 puffs every 8 hours [Active]; - PMHx: 20:50 Anxiety; Arthritis; Crohn's; GERD; HIV; Pancreatitis; PTSD; bb - PSHx: 20:50 None; bb - Immunization history:: Adult Immunizations up to date. - Social history:: Smoking status: Patient/guardian denies using tobacco. - Ebola Screening: : No symptoms or risks identified at this time. ROS: 21:36 Constitutional: Negative for fever, chills, and weight loss, Eyes: Negative for injury, mack pain, redness, and discharge, ENT: Negative for injury, pain, and discharge, Neck: Negative for injury, pain, and swelling, Cardiovascular: Negative for chest pain, palpitations, and edema, Respiratory: Negative for shortness of breath, cough, wheezing, and pleuritic chest pain, Back: Negative for injury and pain, : Negative for injury, bleeding, discharge, and swelling, MS/Extremity: Negative for injury and deformity, Skin: Negative for injury, rash, and discoloration, Neuro: Negative for headache, weakness, numbness, tingling, and seizure, Psych: Negative for depression, anxiety, suicide ideation, homicidal ideation, and hallucinations, Allergy/Immunology: Negative for hives, rash, and allergies, Endocrine: Negative for neck swelling, polydipsia, polyuria, polyphagia, and marked weight changes, Hematologic/Lymphatic: Negative for swollen nodes, abnormal bleeding, and unusual bruising. 21:36 Abdomen/GI: Positive for abdominal pain, nausea, constipation. Exam: 21:36 Constitutional: This is a well developed, well nourished patient who is awake, alert, mack and in no acute distress. Head/Face: Normocephalic, atraumatic. Eyes: Pupils equal round and reactive to light, extra-ocular motions intact. Lids and lashes normal. Conjunctiva and sclera are non-icteric and not injected. Cornea within normal limits. Periorbital areas with no swelling, redness, or edema. ENT: Nares patent. No nasal discharge, no septal abnormalities noted. Tympanic membranes are normal and external auditory canals are clear. Oropharynx with no redness, swelling, or masses, exudates, or evidence of obstruction, uvula midline. Mucous membranes moist. Neck: Trachea midline, no thyromegaly or masses palpated, and no cervical lymphadenopathy. Supple, full range of motion without nuchal rigidity, or vertebral point tenderness. No Meningismus. Chest/axilla: Normal chest wall appearance and motion. Nontender with no deformity. No lesions are appreciated. Cardiovascular: Regular rate and rhythm with a normal S1 and S2. No gallops, murmurs, or rubs. Normal PMI, no JVD. No pulse deficits. Respiratory: Lungs have equal breath sounds bilaterally, clear to auscultation and percussion. No rales, rhonchi or wheezes noted. No increased work of breathing, no retractions or nasal flaring. Back: No spinal tenderness. No costovertebral tenderness. Full range of motion. Male : Normal genitalia with no discharge or lesions. Skin: Warm, dry with normal turgor. Normal color with no rashes, no lesions, and no evidence of cellulitis. MS/ Extremity: Pulses equal, no cyanosis. Neurovascular intact. Full, normal range of motion. Neuro: Awake and alert, GCS 15, oriented to person, place, time, and situation. Cranial nerves II-XII grossly intact. Motor strength 5/5 in all extremities. Sensory grossly intact. Cerebellar exam normal. Normal gait. Psych: Awake, alert, with orientation to person, place and time. Behavior, mood, and affect are within normal limits. 21:36 Abdomen/GI: Inspection: abdomen appears normal, Bowel sounds: normal, Palpation: mild abdominal tenderness, in all quadrants, Liver: no appreciated palpable abnormalities, Hernia: not appreciated. Vital Signs: 20:50 BP 144 / 78; Pulse 57; Resp 16 S; Pulse Ox 97% on R/A; Weight 77.11 kg (R); Height 5 bb ft. 10 in. (177.80 cm) (R); Pain 5/10; 21:50 BP 126 / 72; Pulse 56; Resp 18; Temp 97.8(TE); Pulse Ox 99% on R/A; lp1 22:47 BP 122 / 61; Pulse 52; Resp 18; Pulse Ox 99% on R/A; lp1 20:50 Body Mass Index 24.39 (77.11 kg, 177.80 cm) MDM: 20:38 Patient medically screened. [facility] 21:39 Data reviewed: vital signs, nurses notes, lab test result(s), radiologic studies, plain mack films. 04/05 20:40 Order name: Basic Metabolic Panel; Complete Time: 21:34 [facility] 04/05 20:40 Order name: CBC with Diff; Complete Time: 21:34 [facility] 04/05 20:40 Order name: Creatinine for Radiology; Complete Time: 21:34 [facility] 04/05 20:40 Order name: Hepatic Function; Complete Time: 21:34 [facility] 04/05 20:40 Order name: Lipase; Complete Time: 21:34 [facility] 04/05 20:40 Order name: IV Saline Lock; Complete Time: 21:07 [facility] 04/05 20:40 Order name: Labs collected and sent; Complete Time: 21:07 [facility] 04/05 20:40 Order name: Abdomen Acute Series XRAY [facility] 04/05 21:36 Order name: Urine Dipstick--Ancillary (enter results); Complete Time: 22:08 04/05 20:40 Order name: Urine Dipstick-Ancillary (obtain specimen); Complete Time: 21:37 [facility] Administered Medications: 21:04 Drug: NS 0.9% 1000 ml Route: IV; Rate: 1 bolus; Site: right antecubital; lp1 22:31 Follow up: IV Status: Completed infusion; IV Intake: 1000ml lp1 21:04 Drug: Zofran 4 mg Route: IVP; Site: right antecubital; lp1 21:57 Follow up: Response: No adverse reaction; Nausea is decreased lp1 21:04 Drug: Lactulose 30 grams Volume: 45 ml; Route: PO; lp1 22:31 Follow up: Response: No adverse reaction lp1 21:10 Drug: Dulcolax Suppository 10 mg Route: GA; lp1 22:31 Follow up: Response: No adverse reaction lp1 Disposition: 04/05/19 22:09 Discharged to Home. Impression: Constipation, Nausea. - Condition is Stable. - Discharge Instructions: Constipation, Adult, Nausea and Vomiting, Adult, Nausea, Adult, Constipation, Adult, Ibxz-[id number], Nausea and Vomiting, Adult, Ehde-sf-Eypk, Nausea, Adult, Dkfd-qk-[id number]. - Prescriptions for Lactulose 10 gram/15 mL Oral Solution - take 30 milliliters by ORAL route once daily; 210 milliliter. Dulcolax 10 mg Rectal Suppository - insert 1 suppository by RECTAL route every 12 hours As needed; 10 suppository. Zofran 4 mg Oral Tablet - take 1 tablet by ORAL route every 12 hours As needed; 14 tablet. - Medication Reconciliation Form, Thank You Letter, Antibiotic Education, Prescription Opioid Use form. - Follow up: Private Physician; When: 1 - 2 days; Reason: Recheck today's complaints, Continuance of care, Re-evaluation by your physician. Follow up: Nirmala Concepcion; When: 2 - 3 days; Reason: Recheck today's complaints, Continuance of care, Re-evaluation by your physician. - Problem is new. - Symptoms have improved. Signatures: Dispatcher [employer] EDPal Storm MD MD cha Ballard, Brenda, RN RN bb Sophy Worley, RN RN lp1 Corrections: (The following items were deleted from the chart) 22:58 22:09 04/05/2019 22:09 Discharged to Home. Impression: Constipation; Nausea. Condition bb is Stable. Discharge Instructions: Constipation, Adult, Nausea and Vomiting, Adult, Nausea, Adult, Constipation, Adult, Mcqz-fs-Qwou, Nausea and Vomiting, Adult, Cmeg-uk-Xjlk, Nausea, Adult, Sfpb-op-Rmsj. Prescriptions for Lactulose 10 gram/15 mL Oral Solution - take 30 milliliters by ORAL route once daily; 210 milliliter, Dulcolax 10 mg Rectal Suppository - insert 1 suppository by RECTAL route every 12 hours As needed; 10 suppository. and Forms are Medication Reconciliation Form, Thank You Letter, Antibiotic Education, Prescription Opioid Use. Follow up: Private Physician; When: 1 - 2 days; Reason: Recheck today's complaints, Continuance of care, Re-evaluation by your physician. Follow up: Nirmala Concepcion; When: 2 - 3 days; Reason: Recheck today's complaints, Continuance of care, Re-evaluation by your physician. Problem is new. Symptoms have improved. mack
[2019-04-05 23:06] VITALS: TEMP 97.8; O2SAT 99
[2019-04-05 23:07] VITALS: BP 122/61
--- NOTE | 2019-04-06 12:04 | RAD REPORT ---
EXAM DESCRIPTION: RAD - Abdomen Acute Series - 04/05/2019 9:56 pm CLINICAL HISTORY: Abdominal pain FINDINGS: Lungs appear clear of acute infiltrate. Free air is not seen beneath the diaphragm The bowel gas pattern unremarkable Small calcification within the left pelvis could represent a phlebolith or ureteral calculus and shou ld be correlated clinically
== END 2019-04-05 22:58 | disposition home or self-care (01) ==
LOC: ER 20:31
DX: K59.00 Constipation, unspecified (principal); R11.0 Nausea; Z88.1 Allergy status to other antibiotic agents; Z91.09 Other allergy status, other than to drugs and biological substances; Z91.040 Latex allergy status; K21.9 Gastro-esophageal reflux disease without esophagitis; F41.9 Anxiety disorder, unspecified; F43.10 Post-traumatic stress disorder, unspecified; B20 Human immunodeficiency virus [HIV] disease
CPT/HCPCS: 96361; 85025; 80048; 36415; 80076; 81003; 83690; 74022; 96374; 99284; J7030; J2405

== ENCOUNTER 2019-05-11 23:36 | Emergency (ER) | payer OTHER ==
--- OUTSIDE RECORDS SUMMARY | 2019-05-11 23:39 | XMS REPORT ---
:1960 [facility] Team Providers Name Role Phone Charla Esthela Provider Role Unavailable Allergies, Adverse Reactions, Alerts Substance Reaction Event Type Phenergan hives Drug Allergy Levaquin stops breathing Drug Allergy Keflex rash Drug Allergy Bactrim DS rash Drug Allergy Problems Problem Type Condition Code Onset Dates Condition Status Assessment Abnormal blood sugar R73.09 Active Assessment Panic disorder with agoraphobia F40.01 Active Assessment Cervical spondylosis without M47.812 Active myelopathy Assessment Post-traumatic stress disorder F43.10 Active Assessment Crohn''s disease without K50.90 Active complication, unspecified gastrointestinal tract location Assessment Essential (primary) hypertension I10 Active Problem Asymptomatic microscopic hematuria R31.21 Active Problem Acute tonsillitis, unspecified J03.90 Active etiology Problem Other chronic pancreatitis K86.1 Active Problem Generalized anxiety disorder F41.1 Active Problem Post-traumatic stress disorder F43.10 Active Problem Hyperglycemia R73.9 Active Problem Nausea R11.0 Active Problem Wheezing R06.2 Active Problem Acute upper respiratory infection J06.9 Active Problem Disc disorder M51.9 Active Problem Panic disorder with agoraphobia F40.01 Active Problem Narcolepsy without 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 Active Problem Chronic fatigue R53.82 Active Problem Cervical spondylosis without M47.812 Active myelopathy Problem BMI 29.0-29.9,adult Z68.29 Active Problem Essential hypertension I10 Active Problem Chronic pain syndrome G89.4 Active Problem Essential (primary) hypertension I10 Active Problem Abnormal blood sugar R73.09 Active Problem Gastro-esophageal reflux disease K21.9 Active without esophagitis Problem 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 Problem Lumbar sprain, initial encounter S33.5XXA Active Problem Encounter for counseling Z71.9 Active Problem Crohn''s disease without K50.90 Active complication, unspecified gastrointestinal tract location Medications Medication Code Code Instructions Start End Status Dosage System Date Date [facility] 64282826367 7.5-325 MG Apr 29, Active 1 tablet as Orally TID-prn 2013 needed pain Aspirin 81 ND 99265702049 81 MG Orally September Active 1 tablet Once a day 2016 Protonix ND 99854068841 40 MG Orally Active 1 tablet Once a day Zofran ND 96069271138 8 MG Orally November 19, Active 1 tablet as Once a day 2018 needed Tylenol with [facility] 99564878695 300-30 MG Active 2 tablet as Codeine #3 Orally every 6 needed hrs Albuterol [facility] 98851837031 108 (90 Base) Apr 29, Active 1 puff Sulfate HFA MCG/ACT 2014 Inhalation every 6 hrs Ventolin HFA [facility] 05401374744 108 (90 Base) Active 2 puffs MCG/ACT Inhalation every 6 hrs PRN Ondansetron HCl [facility] 69441847194 4 MG Orally Active 1 tablet Twice a day Carvedilol ND 50925435194 25 MG Orally Active take 1 BID tablet by mouth twice a day Creon [facility] 24146418565 67942-60952 Active take by UNIT Orally 1 mouth 1 tab with each capsule 3 meal times a day as directed Clonazepam [facility] 21135716737 2 MG Orally Active TAKE 1 twice a day TABLET BY MOUTH TWICE A DAY ProAir [facility] 62178358202 108 (90 Base) Apr 28, Active 2 puffs as RespiClick MCG/ACT 2014 needed Inhalation q 4-6 h prn Dicyclomine HCl [facility] 72037123088 20 MG Orally Active 1 tablet Four times a day Valsartan ND 34725073647 40 MG Orally Feb 19, Active 1 tablet Once a day 2018 Famotidine ND 02932147277 20 MG Orally Active 1 tablet at every 12 hrs bedtime Results Name Result Date Reference Range Unit Abnormality Flag HEMOGLOBIN A1C ----A1C 5.2 [id number] Summary Purpose [employer]Clinical[employer] Submission
--- OUTSIDE RECORDS SUMMARY | 2019-05-11 23:39 | XMS REPORT ---
:1960 Author Organization [employer] Care Team Providers Name Role Phone Esthela Dunham Provider Role Unavailable Allergies, Adverse Reactions, Alerts Substance Reaction Event Type Phenergan hives Drug Allergy Levaquin stops breathing Drug Allergy Keflex rash Drug Allergy Bactrim DS rash Drug Allergy Problems Problem Type Condition Code Onset Dates Condition Status Assessment Hospital discharge follow-up Z09 Active Assessment Post-traumatic stress disorder F43.10 Active Assessment Crohn''s disease without K50.90 Active complication, unspecified gastrointestinal tract location Assessment Viral URI J06.9 Active Problem Other chronic pancreatitis K86.1 Active Problem Acute tonsillitis, unspecified J03.90 Active etiology Problem Generalized anxiety disorder F41.1 Active Problem Narcolepsy without 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 Active Problem Hyperglycemia R73.9 Active Problem Cervical spondylosis without M47.812 Active myelopathy Problem Post-traumatic stress disorder F43.10 Active Problem Panic disorder with agoraphobia F40.01 Active Problem Nausea R11.0 Active Problem Abnormal blood sugar R73.09 Active Problem Acute upper respiratory infection J06.9 Active Problem Hospital discharge follow-up Z09 Active Problem Disc disorder M51.9 Active Problem BMI 29.0-29.9,adult Z68.29 Active Problem Chronic fatigue R53.82 Active Problem Wheezing R06.2 Active Problem Essential hypertension I10 Active Problem Essential (primary) hypertension I10 Active Problem Encounter for counseling Z71.9 Active Problem Gastro-esophageal reflux disease K21.9 Active without esophagitis Problem Chronic pain syndrome G89.4 Active Problem Lumbar sprain, initial encounter S33.5XXA Active Problem Asymptomatic microscopic hematuria R31.21 Active Problem Crohn''s disease without K50.90 Active complication, unspecified gastrointestinal tract location Problem 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 Medications Medication Code Code Instructions Start End Status Dosage System Date Date Clonazepam [facility] 76824077719 2 MG Orally Active TAKE 1 twice a day TABLET BY MOUTH TWICE A DAY Carvedilol [facility] 13080965765 25 MG Orally Active take 1 BID tablet by mouth twice a day Tylenol with [facility] 13635005218 300-30 MG Active 2 tablet as Codeine #3 Orally every 6 needed hrs Dicyclomine HCl ND 86159494005 20 MG Orally Active 1 tablet Four times a day Ondansetron HCl ND 30901569257 4 MG Orally Active 1 tablet Twice a day Aspirin 81 [facility] 43588376051 81 MG Orally September Active 1 tablet Once a day 2016 Zofran ND 48741881771 8 MG Orally November 19, Active 1 tablet as Once a day 2018 needed Creon ND 57258748014 20720-33547 Active take by UNIT Orally 1 mouth 1 tab with each capsule 3 meal times a day as directed ProAir [facility] 24535226650 108 (90 Base) Apr 28, Active 2 puffs as RespiClick MCG/ACT 2014 needed Inhalation q 4-6 h prn Albuterol [facility] 88680541391 108 (90 Base) Apr 29, Active 1 puff Sulfate HFA MCG/ACT 2014 Inhalation every 6 hrs Valsartan [facility] 12166629179 40 MG Orally Active 1 tablet Once a day Famotidine ND 74490061521 20 MG Orally Active 1 tablet at every 12 hrs bedtime Ventolin HFA ND 69035629680 108 (90 Base) Active 2 puffs MCG/ACT Inhalation every 6 hrs PRN [place] [facility] 83830930151 7.5-325 MG Apr 29, Active 1 tablet as Orally TID-prn 2013 needed pain Protonix ND 08980597006 40 MG Orally Active 1 tablet Once a day Results Name Result Date Reference Range Unit Abnormality Flag STREP A RAPID ----Result NEG [id number] FLU TEST A/B ----B NEG [id number] ----A NEG [id number] Summary Purpose eClinicalWorks Submission
[2019-05-12] MEDS ORDERED: HYDROCODONE/APAP 10/325 TAB ONE (00:55)
[2019-05-12 01:06] LABS: Absolute Lymphocytes (CBC) 2.7 K/uL (0.7-4.9); Basophils % 0.4 % (0-1.3); Hematocrit 41.8 % (39.6-49.0); Lymphocytes % 36.2 % (15.3-44.8); MPV 8.6 fL (7.6-11.3); RBC Red Blood Cell Count 4.64 M/uL (4.33-5.43)
[2019-05-12 01:17] LABS: ALT/SGPT 23 U/L (12-78); AST/SGOT 14 U/L (15-37); Albumin 3.6 g/dL (3.4-5.0); Alkaline Phosphatase 50 U/L (45-117); BUN Blood Urea Nitrogen 12 mg/dL (7-18); Bicarbonate 31 mmol/L (21-32); Bilirubin Direct 0.2 mg/dL (0-0.2); Bilirubin Total 0.8 mg/dL (0.2-1.0); Glucose Level 88 mg/dL (74-106); Potassium 4.1 mmol/L (3.5-5.1); Protein, Total 6.7 g/dL (6.4-8.2); Sodium Level 140 mmol/L (136-145)
[2019-05-12 01:18] LABS: Lipase 182 U/L (73-393)
--- NOTE | 2019-05-12 02:23 | EDPHYS ---
Physician Documentation [facility] Name: Alfredo Escobar Age: 58 yrs Sex: Male : 1960 Arrival Date: 05/11/2019 Time: 23:37 Bed 16 Private MD: DANUTA Physician Pal Ferreira HPI: 05/12 01:06 This 58 yrs old Male presents to ER via Ambulatory with complaints of Back la1 Pain. 01:06 The patient presents with pain that is acute, with no known mechanism of injury. The la1 symptoms are located in the thoracic area. Onset: The symptoms/episode began/occurred today. The pain does not radiate. Associated signs and symptoms: Pertinent negatives: fever, headache, incontinence, numbness, tingling, urinary retention, vomiting, weakness. The problem was sustained from unknown cause. Modifying factors: The patient symptoms are alleviated by nothing, the patient symptoms are aggravated by deep breaths. Severity of symptoms: At their worst the symptoms were mild. pt reports sharp pain in thoracic area that is worse with deep breaths, no known injury. Historical: - Allergies: 00:00 Bactrim; jb4 00:00 Iodinated Contrast Media - IV Dye; jb4 00:00 Iodine; jb4 00:00 Keflex; jb4 00:00 Latex, Natural Rubber; jb4 00:00 Levaquin; jb4 00:00 promethazine HCl; jb4 00:00 Toradol; jb4 - Home Meds: 00:00 aspirin 81 mg Oral TbEC once daily [Active]; carvedilol 25 mg Oral tab 2 times per day jb4 [Active]; calcipotriene 0.005 % Topical oint 2 times per day [Active]; Creon 10290 units Oral 3 times per day [Active]; [place] 10-325 mg Oral tab twice a day [Active]; clonazepam 2 mg Oral tab 2 times per day [Active]; pantoprazole 40 mg Oral TbEC once daily [Active]; Ventolin HFA 90 mcg/actuation Nebulizer HFAA 2 puffs every 8 hours [Active]; - PMHx: 00:00 Arthritis; Crohn's; GERD; HIV; Pancreatitis; PTSD; Anxiety; jb4 - PSHx: 00:00 None; jb4 - Immunization history:: Adult Immunizations up to date. - Social history:: Smoking status: Patient/guardian denies using tobacco, Patient/guardian denies using alcohol, street drugs. - Ebola Screening: : No symptoms or risks identified at this time. ROS: 01:07 Constitutional: Negative for fever, chills, and weight loss, Eyes: Negative for injury, la1 pain, redness, and discharge, ENT: Negative for injury, pain, and discharge, Neck: Negative for injury, pain, and swelling, Cardiovascular: Negative for chest pain, palpitations, and edema, Respiratory: Negative for shortness of breath, cough, wheezing, and pleuritic chest pain, Abdomen/GI: Negative for abdominal pain, nausea, vomiting, diarrhea, and constipation, : Negative for injury, bleeding, discharge, and swelling, MS/Extremity: Negative for injury and deformity. 01:07 Neuro: Negative for headache, weakness, numbness, tingling, and seizure. 01:07 Back: Positive for pain at rest, Negative for injury or acute deformity, decreased range of motion, radiated pain. Exam: 01:08 Constitutional: This is a well developed, well nourished patient who is awake, alert, la1 and in no acute distress. Head/Face: Normocephalic, atraumatic. Eyes: Pupils equal round and reactive to light, extra-ocular motions intact. Periorbital areas with no swelling, redness, or edema. ENT: Mucous membranes moist. Neck: Supple, full range of motion without nuchal rigidity, or vertebral point tenderness. No Meningismus. Chest/axilla: Normal chest wall appearance and motion. Nontender with no deformity. No lesions are appreciated. Cardiovascular: Regular rate and rhythm with a normal S1 and S2. No gallops, murmurs, or rubs. Normal PMI, no JVD. No pulse deficits. Respiratory: Lungs have equal breath sounds bilaterally, clear to auscultation No rales, rhonchi or wheezes noted. No increased work of breathing, no retractions or nasal flaring. Abdomen/GI: Soft, non-tender, with normal bowel sounds. No distension No guarding or rebound. No evidence of tenderness throughout. 01:08 Back: pain, that is mild, of the thoracic area, ROM is normal, normal spinal alignment noted, CVA tenderness, is absent, vertebral tenderness, is appreciated at T5 and T6, muscle spasm, is not present. 21:27 Neuro: Orientation: is normal, Mentation: is normal, Memory: is normal, Motor: is la1 normal, Gait: is steady. Vital Signs: 00:00 BP 138 / 91; Pulse 64; Resp 18; Temp 99.0(O); Pulse Ox 98% on R/A; Weight 86.64 kg (R); jb4 Height 5 ft. 10 in. (177.80 cm); Pain 8/10; 01:00 BP 141 / 87; Pulse 65; Resp 16; Pulse Ox 95% on R/A; jb4 02:00 BP 154 / 77; Pulse 59; Resp 16; Pulse Ox 100% on R/A; jb4 03:00 BP 145 / 78; Pulse 63; Resp 16; Pulse Ox 95% on R/A; jb4 00:00 Body Mass Index 27.41 (86.64 kg, 177.80 cm) jb4 MDM: 05/11 23:58 Patient medically screened. la1 05/12 02:21 Differential diagnosis: Abdominal Aortic Aneurysm Cholelithiasis Pancreatic Carcinoma la1 spinal injury. Data reviewed: vital signs, nurses notes, radiologic studies, plain films, I have discussed the patient's presentation/case with the attending Emergency Department Physician; and as a result, I will discharge patient. Data interpreted: Pulse oximetry: on room air is 100 %. Interpretation: normal. Counseling: I had a detailed discussion with the patient and/or guardian regarding: the historical points, exam findings, and any diagnostic results supporting the discharge/admit diagnosis, lab results, radiology results. 05/12 00:30 Order name: Basic Metabolic Panel; Complete Time: 05/12 00:30 Order name: CBC with Diff; Complete Time: 05/12 00:30 Order name: Creatinine for Radiology; Complete Time: 05/12 00:30 Order name: Hepatic Function; Complete Time: 05/12 00:30 Order name: Lipase; Complete Time: 05/12 00:30 Order name: Chest Single View XRAY la05/12 00:30 Order name: IV Saline Lock; Complete Time: 00:45 05/12 00:30 Order name: Labs collected and sent; Complete Time: 00:45 08 00:30 Order name: XRAY Thoracic Spine (Ap/lat) la1 Administered Medications: 02:08 Drug: [place] 10 mg-325 mg 1 tabs {Note: Rass score 0.} Route: PO; jb4 02:30 Follow up: Response: No adverse reaction; Pain is decreased; RASS: Alert and Calm (0) jb4 Disposition: 05/12/19 02:22 Discharged to Home. Impression: Acute thoracic back pain. - Condition is Stable. - Discharge Instructions: Back Pain, Adult, Back Exercises, Back Injury Prevention. - Medication Reconciliation Form, Thank You Letter form. - Follow up: Private Physician; When: 2 - 3 days; Reason: Recheck today's complaints, Re-evaluation by your physician. - Problem is new. - Symptoms have improved. Addendum: 05/13/2019 09:28 Co-signature as Attending Physician, Pal Ferreira MD I agree with the assessment and c leon plan of care. Signatures: Dispatcher [employer] EDNM Pal Ferreira MD MD cha Attema, Lee, PROM BURN OFF OPERATOR-C PROM BURN OFF OPERATOR-Cla1 Jose Luis Corea, RN RN jb4 Corrections: (The following items were deleted from the chart) 05/12 03:21 02:22 05/12/2019 02:22 Discharged to Home. Impression: Acute thoracic back pain. jb4 Condition is Stable. Forms are Medication Reconciliation Form, Thank You Letter, Antibiotic Education, Prescription Opioid Use. Follow up: Private Physician; When: 2 - 3 days; Reason: Recheck today's complaints, Re-evaluation by your physician. Problem is new. Symptoms have improved. la1
--- NOTE | 2019-05-12 02:23 | ER ---
Nurse's Notes [facility] Name: Alfredo Escobar Age: 58 yrs Sex: Male : 1960 Arrival Date: 05/11/2019 Time: 23:37 Bed 16 Private MD: Diagnosis: Acute thoracic back pain Presentation: 05/12 00:00 Presenting complaint: Patient states: Around 2pm the middle of my back started hurting jb4 severely. I took some pain medication, still in pain. Took a hot bath, still hurting. When I take a deep breath it feels like a knife is stabbing me. I don't know why. I feel okay so far except for the pain. Changes with being chronically ill. I didn't do anything just started wont quit. 00:00 Transition of care: patient was not received from another setting of care. Onset of jb4 symptoms was May 11, 2019. Risk Assessment: Do you want to hurt yourself or someone else? Patient reports no desire to harm self or others. Initial Sepsis Screen: Does the patient meet any 2 criteria? No. Patient's initial sepsis screen is negative. Does the patient have a suspected source of infection? No. Patient's initial sepsis screen is negative. Care prior to arrival: None. 00:00 Method Of Arrival: Ambulatory jb4 00:00 Acuity: BUCKY 3 jb4 Historical: - Allergies: 00:00 Bactrim; jb4 00:00 Iodinated Contrast Media - IV Dye; jb4 00:00 Iodine; jb4 00:00 Keflex; jb4 00:00 Latex, Natural Rubber; jb4 00:00 Levaquin; jb4 00:00 promethazine HCl; jb4 00:00 Toradol; jb4 - Home Meds: 00:00 aspirin 81 mg Oral TbEC once daily [Active]; carvedilol 25 mg Oral tab 2 times per day jb4 [Active]; calcipotriene 0.005 % Topical oint 2 times per day [Active]; Creon 25793 units Oral 3 times per day [Active]; Aval[place] 10-325 mg Oral tab twice a day [Active]; clonazepam 2 mg Oral tab 2 times per day [Active]; pantoprazole 40 mg Oral TbEC once daily [Active]; Ventolin HFA 90 mcg/actuation Nebulizer HFAA 2 puffs every 8 hours [Active]; - PMHx: 00:00 Arthritis; Crohn's; GERD; HIV; Pancreatitis; PTSD; Anxiety; jb4 - PSHx: 00:00 None; jb4 - Immunization history:: Adult Immunizations up to date. - Social history:: Smoking status: Patient/guardian denies using tobacco, Patient/guardian denies using alcohol, street drugs. - Ebola Screening: : No symptoms or risks identified at this time. Screenin:00 Abuse screen: Denies threats or abuse. Nutritional screening: No deficits noted. jb4 Tuberculosis screening: No symptoms or risk factors identified. Fall Risk None identified. Assessment: 00:00 General: Appears in no apparent distress. uncomfortable, Behavior is calm, cooperative, jb4 appropriate for age. Pain: Complains of pain in back Pain does not radiate. Pain currently is 8 out of 10 on a pain scale. Neuro: Level of Consciousness is awake, alert, obeys commands, Oriented to person, place, time, situation. Cardiovascular: Patient's skin is warm and dry. Respiratory: Airway is patent Respiratory effort is even, unlabored, Respiratory pattern is regular, symmetrical. GI: No signs and/or symptoms were reported involving the gastrointestinal system. : No signs and/or symptoms were reported regarding the genitourinary system. EENT: No signs and/or symptoms were reported regarding the EENT system. Derm: Skin is intact, Skin is pink, warm \T\ dry. Musculoskeletal: Circulation, motion, and sensation intact. Range of motion: intact in all extremities. 01:00 Reassessment: Patient appears in no apparent distress at this time. Patient and/or jb4 family updated on plan of care and expected duration. Pain level reassessed. Patient is alert, oriented x 3, equal unlabored respirations, skin warm/dry/pink. 02:00 Reassessment: Patient appears in no apparent distress at this time. Patient and/or jb4 family updated on plan of care and expected duration. Pain level reassessed. Patient is alert, oriented x 3, equal unlabored respirations, skin warm/dry/pink. 02:30 Reassessment: Patient appears in no apparent distress at this time. Patient and/or jb4 family updated on plan of care and expected duration. Pain level reassessed. Patient is alert, oriented x 3, equal unlabored respirations, skin warm/dry/pink. PT being held prior to d/c for further monitoring due to opioid administration. 03:16 Reassessment: Patient appears in no apparent distress at this time. Patient and/or jb4 family updated on plan of care and expected duration. Pain level reassessed. Patient is alert, oriented x 3, equal unlabored respirations, skin warm/dry/pink. PT verbalized understanding of d/c and follow up instructions. Ambulated out of ED with a steady gait. Vital Signs: 00:00 BP 138 / 91; Pulse 64; Resp 18; Temp 99.0(O); Pulse Ox 98% on R/A; Weight 86.64 kg (R); jb4 Height 5 ft. 10 in. (177.80 cm); Pain 8/10; 01:00 BP 141 / 87; Pulse 65; Resp 16; Pulse Ox 95% on R/A; jb4 02:00 BP 154 / 77; Pulse 59; Resp 16; Pulse Ox 100% on R/A; jb4 03:00 BP 145 / 78; Pulse 63; Resp 16; Pulse Ox 95% on R/A; jb4 00:00 Body Mass Index 27.41 (86.64 kg, 177.80 cm) jb4 ED Course: 05/11 23:37 Patient arrived in ED. cl3 23:58 Channing Cosby, [facility] la1 23:58 Pal Ferreira MD is Attending Physician. la1 12 00:00 Arm band placed on right wrist. jb4 00:00 Patient has correct armband on for positive identification. Bed in low position. Call jb4 light in reach. Side rails up X 1. Pulse ox on. NIBP on. 00:35 Jose Luis Corea, RN is Primary Nurse. jb4 00:39 Triage completed. jb4 01:51 Chest Single View XRAY In Process Unspecified. EDMS 01:51 XRAY Thoracic Spine (Ap/lat) In Process Unspecified. EDMS 03:19 No provider procedures requiring assistance completed. IV discontinued, intact, jb4 bleeding controlled, No redness/swelling at site. Pressure dressing applied. Administered Medications: 02:08 Drug: Aval[place] 10 mg-325 mg 1 tabs {Note: Rass score 0.} Route: PO; jb4 02:30 Follow up: Response: No adverse reaction; Pain is decreased; RASS: Alert and Calm (0) 4 Outcome: 02:22 Discharge ordered by . la1 03:19 Discharged to home ambulatory, with family. jb4 03:19 Condition: stable 03:19 Discharge instructions given to patient, Instructed on discharge instructions, follow up and referral plans. Demonstrated understanding of instructions, follow-up care. 03:21 Patient left the ED. [facility] Signatures: Dispatcher [employer] EDMS Channing Cosby, AIR POLLUTION INSPECTOR-C AIR POLLUTION INSPECTOR-Cla1 Jose Luis Corea, RN RN jb4 Rasheeda Gamez cl3 Corrections: (The following items were deleted from the chart) 01:00 Abuse screen: Denies threats or abuse. [place] [id number] 01:00 Nutritional screening: No deficits noted. [place] [id number] 01:00 Tuberculosis screening: No symptoms or risk factors identified. [place] [id number] 01:00 Fall Risk None identified. [place] [id number]
[2019-05-12 06:12] VITALS: TEMP 99
[2019-05-12 06:16] VITALS: BP 145/78; O2SAT 95
--- NOTE | 2019-05-12 08:40 | RAD REPORT ---
EXAM DESCRIPTION: RAD - Thoracic Spine Ap/Lat - 05/12/2019 1:49 am CLINICAL HISTORY: Acute onset midthoracic pain COMPARISON: None. FINDINGS: AP & lateral views of the thoracic spine were obtained. Thoracic bodies are normal in heig ht and alignment. There are no acute or destructive bony processes seen. No paraspinal masses are nigel ntified. Very minimal endplate spurring changes present at T8-9 on the right lateral margin. No disc space narrowing. IMPRESSION: Negative thoracic spine examination for acute or significant finding.
--- NOTE | 2019-05-12 08:41 | RAD REPORT ---
EXAM DESCRIPTION: RAD - Chest Single View - 05/12/2019 1:49 am CLINICAL HISTORY: Pleuritic chest pain COMPARISON: April 05 TECHNIQUE: AP portable chest image was obtained 0146 hours . FINDINGS: No acute lung parenchymal process. Calcified granulomata in the lateral left lung field noted. Patient has numerous left hilar granuloma tous calcifications and calcified lymph nodes. Findings are stable. Heart and vasculature are normal. No measurable pleural effusion and no pneumothorax. No acute bony abnormality seen. No acute aortic f indings suspected. IMPRESSION: No acute cardiopulmonary process. Chest findings are stable from April 05.
== END 2019-05-12 03:21 | disposition home or self-care (01) ==
LOC: ER 23:36
DX: M54.6 Pain in thoracic spine (principal); Z21 Asymptomatic human immunodeficiency virus [HIV] infection status; F41.9 Anxiety disorder, unspecified; Z79.82 Long term (current) use of aspirin; Z88.1 Allergy status to other antibiotic agents; Z88.5 Allergy status to narcotic agent; Z88.8 Allergy status to other drugs, medicaments and biological substances; Z91.040 Latex allergy status; Z91.041 Radiographic dye allergy status; Z91.048 Other nonmedicinal substance allergy status
CPT/HCPCS: 36415; 71045; 72070; 80048; 80076; 83690; 85025; 99284

== ENCOUNTER 2019-05-29 04:21 | Emergency (ER) | payer OTHER ==
--- OUTSIDE RECORDS SUMMARY | 2019-05-29 04:23 | XMS REPORT ---
:1960 [facility] Team Providers Name Role Phone Charla [...] Start End Status Dosage System Date Date [facility] 19824985650 7.5-325 MG Apr 29, Active 1 tablet as Orally TID-prn 2013 needed pain Aspirin 81 ND 57935983441 81 MG Orally September Active 1 tablet Once a day 2016 Protonix ND 53892252811 40 MG Orally Active 1 tablet Once a day Zofran ND 79080826359 8 MG Orally November 19, Active 1 tablet as Once a day 2018 needed Tylenol with [facility] 53781678294 300-30 MG Active 2 tablet as Codeine #3 Orally every 6 needed hrs Albuterol [facility] 95906289916 108 (90 Base) Apr 29, Active 1 puff Sulfate HFA MCG/ACT 2014 Inhalation every 6 hrs Ventolin HFA [facility] 90450244220 108 (90 Base) Active 2 puffs MCG/ACT Inhalation every 6 hrs PRN Ondansetron HCl [facility] 75425141595 4 MG Orally Active 1 tablet Twice a day Carvedilol ND 65827801566 25 MG Orally Active take 1 BID tablet by mouth twice a day Creon [facility] 62374458002 92682-80131 Active take by UNIT Orally 1 mouth 1 tab with each capsule 3 meal times a day as directed Clonazepam [facility] 14427123635 2 MG Orally Active TAKE 1 twice a day TABLET BY MOUTH TWICE A DAY ProAir [facility] 74984545514 108 (90 Base) Apr 28, Active 2 puffs as RespiClick MCG/ACT 2014 needed Inhalation q 4-6 h prn Dicyclomine HCl [facility] 80869875405 20 MG Orally Active 1 tablet Four times a day Valsartan ND 92936739402 40 MG Orally Feb 19, Active 1 tablet Once a day 2018 Famotidine ND 36263969524 20 MG Orally Active 1 tablet at every 12 hrs bedtime Results Name Result Date Reference Range Unit Abnormality Flag HEMOGLOBIN A1C ----A1C 5.2 [id number] Summary Purpose eClinicalWorks Submission
--- OUTSIDE RECORDS SUMMARY | 2019-05-29 04:23 | XMS REPORT ---
[...] End Status Dosage System Date Date Clonazepam [facility] 77109089516 2 MG Orally Active TAKE 1 twice a day TABLET BY MOUTH TWICE A DAY Carvedilol [facility] 71179739627 25 MG Orally Active take 1 BID tablet by mouth twice a day Tylenol with [facility] 29048321659 300-30 MG Active 2 tablet as Codeine #3 Orally every 6 needed hrs Dicyclomine HCl ND 62998520662 20 MG Orally Active 1 tablet Four times a day Ondansetron HCl ND 11437415480 4 MG Orally Active 1 tablet Twice a day Aspirin 81 [facility] 41485300422 81 MG Orally September Active 1 tablet Once a day 2016 Zofran ND 83388971136 8 MG Orally November 19, Active 1 tablet as Once a day 2018 needed Creon ND 37715462504 12819-21567 Active take by UNIT Orally 1 mouth 1 tab with each capsule 3 meal times a day as directed ProAir [facility] 91289323521 108 (90 Base) Apr 28, Active 2 puffs as RespiClick MCG/ACT 2014 needed Inhalation q 4-6 h prn Albuterol [facility] 71484453257 108 (90 Base) Apr 29, Active 1 puff Sulfate HFA MCG/ACT 2014 Inhalation every 6 hrs Valsartan [facility] 75576069173 40 MG Orally Active 1 tablet Once a day Famotidine ND 96614775914 20 MG Orally Active 1 tablet at every 12 hrs bedtime Ventolin HFA ND 75045743425 108 (90 Base) Active 2 puffs MCG/ACT Inhalation every 6 hrs PRN Harmans [facility] 92968000751 7.5-325 MG Apr 29, Active 1 tablet as Orally TID-prn 2013 needed pain Protonix ND 18916768664 40 MG Orally Active 1 tablet Once a day Results Name Result Date Reference Range Unit Abnormality Flag STREP A RAPID ----Result NEG [id number] FLU TEST A/B ----B NEG [id number] ----A NEG [id number] Summary Purpose eClinicalWorks Submission
[2019-05-29 05:57] LABS: Absolute Lymphocytes (CBC) 2.3 K/uL (0.7-4.9); Basophils % 0.3 % (0-1.3); Hematocrit 41.3 % (39.6-49.0); Lymphocytes % 34.9 % (15.3-44.8); RBC Red Blood Cell Count 4.54 M/uL (4.33-5.43)
[2019-05-29 05:58] LABS: Protime INR 1.04
[2019-05-29 06:10] LABS: ALT/SGPT 23 U/L (12-78); AST/SGOT 14 U/L (15-37); Albumin 3.4 g/dL (3.4-5.0); Alkaline Phosphatase 46 U/L (45-117); BUN Blood Urea Nitrogen 14 mg/dL (7-18); Bicarbonate 30 mmol/L (21-32); Bilirubin Direct 0.1 mg/dL (0-0.2); Bilirubin Total 0.3 mg/dL (0.2-1.0); Glucose Level 101 mg/dL (74-106); NT PRO-BNP 70 pg/mL (<125); Potassium 3.8 mmol/L (3.5-5.1); Protein, Total 6.4 g/dL (6.4-8.2); Sodium Level 141 mmol/L (136-145); Troponin (Emerg Dept Use Only) < 0.02 ng/mL (0.0-0.045)
--- NOTE | 2019-05-29 06:29 | EDPHYS ---
Physician Documentation [facility] Name: Alfredo Escobar Age: 58 yrs Sex: Male : 1960 Arrival Date: 05/29/2019 Time: 04:28 Bed 8 Private MD: ED Physician Pablo Swartz HPI: 05/29 05:09 This 58 yrs old Male presents to ER via Ambulatory with complaints of Blood pkl Pressure Problem. 05:09 The patient or guardian complains of sudden onset of numbness and tingling sensation . pkl The complaints affect the right upper extremity. Onset: The symptoms/episode began/occurred 2 hour(s) ago. Associated signs and symptoms: Pertinent positives: of the palpitation. Patient said symptoms lasted about 15 seconds.. Historical: - Allergies: 05:02 Bactrim; lp1 05:02 Iodinated Contrast Media - IV Dye; lp1 05:02 Iodine; lp1 05:02 Keflex; lp1 05:02 Latex, Natural Rubber; lp1 05:02 Levaquin; lp1 05:02 promethazine HCl; lp1 05:02 Toradol; lp1 - Home Meds: 05:02 aspirin 81 mg Oral TbEC once daily [Active]; calcipotriene 0.005 % Topical oint 2 times lp1 per day [Active]; carvedilol 25 mg Oral tab 2 times per day [Active]; clonazepam 2 mg Oral tab 2 times per day [Active]; Creon 97518 units Oral 3 times per day [Active]; [place] 10-325 mg Oral tab twice a day [Active]; pantoprazole 40 mg Oral TbEC once daily [Active]; Ventolin HFA 90 mcg/actuation Nebulizer HFAA 2 puffs every 8 hours [Active]; - PMHx: 05:02 Anxiety; Arthritis; Crohn's; GERD; HIV; Pancreatitis; PTSD; lp1 - PSHx: 05:02 None; lp1 - Immunization history:: Adult Immunizations up to date. - Social history:: Smoking status: Patient/guardian denies using tobacco. - Ebola Screening: : No symptoms or risks identified at this time. ROS: 05:09 Eyes: Negative for injury, pain, redness, and discharge, ENT: Negative for injury, pkl pain, and discharge, Neck: Negative for injury, pain, and swelling. 05:09 Cardiovascular: Positive for palpitations. 05:09 Respiratory: Negative for cough, shortness of breath. 05:09 Abdomen/GI: Negative for abdominal pain, nausea, vomiting, and diarrhea. 05:09 Back: Negative for acute changes. 05:09 : Negative for urinary symptoms. 05:09 MS/extremity: Positive for paresthesias, tingling, of the right upper extremity. 05:09 Skin: Negative for rash. 05:09 Neuro: Negative for altered mental status, loss of consciousness. Exam: 05:09 Head/Face: Normocephalic, atraumatic. Eyes: Pupils equal round and reactive to light, pkl extra-ocular motions intact. Lids and lashes normal. Conjunctiva and sclera are non-icteric and not injected. Cornea within normal limits. Periorbital areas with no swelling, redness, or edema. ENT: Nares patent. No nasal discharge, no septal abnormalities noted. Tympanic membranes are normal and external auditory canals are clear. Oropharynx with no redness, swelling, or masses, exudates, or evidence of obstruction, uvula midline. Mucous membranes moist. Neck: Trachea midline, no thyromegaly or masses palpated, and no cervical lymphadenopathy. Supple, full range of motion without nuchal rigidity, or vertebral point tenderness. No Meningismus. Chest/axilla: Normal chest wall appearance and motion. Nontender with no deformity. No lesions are appreciated. Cardiovascular: Regular rate and rhythm with a normal S1 and S2. No gallops, murmurs, or rubs. Normal PMI, no JVD. No pulse deficits. Respiratory: Lungs have equal breath sounds bilaterally, clear to auscultation and percussion. No rales, rhonchi or wheezes noted. No increased work of breathing, no retractions or nasal flaring. Abdomen/GI: Soft, non-tender, with normal bowel sounds. No distension or tympany. No guarding or rebound. No evidence of tenderness throughout. Back: No spinal tenderness. No costovertebral tenderness. Full range of motion. Skin: Warm, dry with normal turgor. Normal color with no rashes, no lesions, and no evidence of cellulitis. MS/ Extremity: Pulses equal, no cyanosis. Neurovascular intact. Full, normal range of motion. 05:09 Neuro: Orientation: is normal, Mentation: is normal, Memory: is normal, Cranial nerves: grossly normal, Cerebellar function: normal finger to nose testing, Motor: is normal, Sensation: is normal, Gait: is steady. Vital Signs: 04:59 BP 155 / 92; Pulse 62; Resp 18; Temp 98.4(O); Pulse Ox 98% on R/A; Weight 87.54 kg (R); lp1 Height 5 ft. 9 in. (175.26 cm); Pain 0/10; 05:45 BP 125 / 83; Pulse 50; Resp 16; Pulse Ox 97% on R/A; jb4 06:35 BP 138 / 76; Pulse 60; Resp 13; Pulse Ox 100% on R/A; jb4 04:59 Body Mass Index 28.50 (87.54 kg, 175.26 cm) lp1 MDM: 04:34 Patient medically screened. pkl 06:25 Data reviewed: vital signs, nurses notes, lab test result(s), EKG, radiologic studies, pkl CT scan, plain films. 05/29 05:08 Order name: Basic Metabolic Panel; Complete Time: 06:12 pkl 05/29 05:08 Order name: CBC with Diff; Complete Time: 06:04 pkl 05/29 05:08 Order name: LFT's; Complete Time: 06:12 pkl 05/29 05:08 Order name: Magnesium; Complete Time: 06:12 pkl 05/29 05:08 Order name: NT PRO-BNP; Complete Time: 06:12 pkl 05/29 05:08 Order name: PT-INR; Complete Time: 06:04 pkl 05/29 05:08 Order name: Troponin (emerg Dept Use Only); Complete Time: 06:12 pkl 05/29 05:08 Order name: XRAY Chest (1 view) pkl 05/29 05:08 Order name: EKG; Complete Time: 05:09 pkl 05/29 05:08 Order name: Cardiac monitoring; Complete Time: 05:14 pkl 05/29 05:08 Order name: EKG - Nurse/Tech; Complete Time: 05:14 pkl 05/29 05:08 Order name: IV Saline Lock; Complete Time: 05:41 pkl 05/29 05:08 Order name: Labs collected and sent; Complete Time: 05:41 pkl 05/29 05:09 Order name: CT C Spine pkl 05/29 05:08 Order name: O2 Per Protocol; Complete Time: 05:14 pkl 05/29 05:08 Order name: O2 Sat Monitoring; Complete Time: 05:15 pkl Administered Medications: No medications were administered Disposition: 05/29/19 06:27 Discharged to Home. Impression: Paresthesia right upper extremity. Cervical spondylosis. - Condition is Stable. - Medication Reconciliation Form, Thank You Letter, Antibiotic Education, Prescription Opioid Use form. - Follow up: Pio Armstrong MD; When: 2 - 3 days; Reason: Re-evaluation by your physician. - Problem is new. - Symptoms have improved. Signatures: Dispatcher [employer] EDPablo Choi MD MD pkl Sophy Worley RN RN lp1 Jose Luis Corea RN RN jb4 Corrections: (The following items were deleted from the chart) 06:38 06:27 05/29/2019 06:27 Discharged to Home. Impression: Paresthesia right upper jb4 extremity. Cervical spondylosis. Condition is Stable. Forms are Medication Reconciliation Form, Thank You Letter, Antibiotic Education, Prescription Opioid Use. Follow up: Pio Armstrong; When: 2 - 3 days; Reason: Re-evaluation by your physician. Problem is new. Symptoms have improved. pkl
--- NOTE | 2019-05-29 06:29 | ER ---
Nurse's Notes [facility] Name: Alfredo Escobar Age: 58 yrs Sex: Male : 1960 Arrival Date: 05/29/2019 Time: 04:28 Bed 8 Private MD: Diagnosis: Paresthesia right upper extremity. Cervical spondylosis Presentation: 05/29 04:56 Presenting complaint: Patient states: "I was watching TV and all of a sudden my right lp1 arm went numb, and my legs got all shaky, and I felt like my heart was dancing around in my chest. That's never happened to me before"; Patient states episode occurred about 0330, resolved at this time; Patient concerned because blood pressure was elevated at home. Transition of care: patient was not received from another setting of care. Onset of symptoms was May 29, 2019. Risk Assessment: Do you want to hurt yourself or someone else? Patient reports no desire to harm self or others. Initial Sepsis Screen: Does the patient meet any 2 criteria? No. Patient's initial sepsis screen is negative. Does the patient have a suspected source of infection? No. Patient's initial sepsis screen is negative. Care prior to arrival: None. 04:56 Method Of Arrival: Ambulatory lp1 04:56 Acuity: BUCKY 3 lp1 Historical: - Allergies: 05:02 Bactrim; lp1 05:02 Iodinated Contrast Media - IV Dye; lp1 05:02 Iodine; lp1 05:02 Keflex; lp1 05:02 Latex, Natural Rubber; lp1 05:02 Levaquin; lp1 05:02 promethazine HCl; lp1 05:02 Toradol; lp1 - Home Meds: 05:02 aspirin 81 mg Oral TbEC once daily [Active]; calcipotriene 0.005 % Topical oint 2 times lp1 per day [Active]; carvedilol 25 mg Oral tab 2 times per day [Active]; clonazepam 2 mg Oral tab 2 times per day [Active]; Creon 56213 units Oral 3 times per day [Active]; [place] 10-325 mg Oral tab twice a day [Active]; pantoprazole 40 mg Oral TbEC once daily [Active]; Ventolin HFA 90 mcg/actuation Nebulizer HFAA 2 puffs every 8 hours [Active]; - PMHx: 05:02 Anxiety; Arthritis; Crohn's; GERD; HIV; Pancreatitis; PTSD; lp1 - PSHx: 05:02 None; lp1 - Immunization history:: Adult Immunizations up to date. - Social history:: Smoking status: Patient/guardian denies using tobacco. - Ebola Screening: : No symptoms or risks identified at this time. Screenin:02 Abuse screen: Denies threats or abuse. Denies injuries from another. Nutritional lp1 screening: No deficits noted. Tuberculosis screening: No symptoms or risk factors identified. Fall Risk None identified. Assessment: 05:00 General: Appears in no apparent distress. comfortable, Behavior is calm, cooperative, jb4 appropriate for age. Pain: Denies pain. Neuro: Level of Consciousness is awake, alert, obeys commands, Oriented to person, place, time, situation. Cardiovascular: Patient's skin is warm and dry. Respiratory: Airway is patent Respiratory effort is even, unlabored, Respiratory pattern is regular, symmetrical. GI: No signs and/or symptoms were reported involving the gastrointestinal system. : No signs and/or symptoms were reported regarding the genitourinary system. EENT: No signs and/or symptoms were reported regarding the EENT system. Derm: Skin is intact, Skin is pink, warm \\T\\ dry. Musculoskeletal: Circulation, motion, and sensation intact. Range of motion: intact in all extremities. 05:44 Reassessment: Patient appears in no apparent distress at this time. Patient and/or jb4 family updated on plan of care and expected duration. Pain level reassessed. Patient is alert, oriented x 3, equal unlabored respirations, skin warm/dry/pink. PT reports having pain in his neck. Denies wanting any kind of pain medication. 06:35 Reassessment: Patient appears in no apparent distress at this time. Patient and/or jb4 family updated on plan of care and expected duration. Pain level reassessed. Patient is alert, oriented x 3, equal unlabored respirations, skin warm/dry/pink. PT verbalized understanding of d/c and follow up instructions. Ambulated out of ED with steady gait. Vital Signs: 04:59 BP 155 / 92; Pulse 62; Resp 18; Temp 98.4(O); Pulse Ox 98% on R/A; Weight 87.54 kg (R); lp1 Height 5 ft. 9 in. (175.26 cm); Pain 0/10; 05:45 BP 125 / 83; Pulse 50; Resp 16; Pulse Ox 97% on R/A; jb4 06:35 BP 138 / 76; Pulse 60; Resp 13; Pulse Ox 100% on R/A; jb4 04:59 Body Mass Index 28.50 (87.54 kg, 175.26 cm) lp1 ED Course: 04:28 Patient arrived in ED. ds1 04:34 Pablo Swartz MD is Attending Physician. pkl 04:59 Triage completed. lp1 05:00 Arm band placed on. lp1 05:00 Patient has correct armband on for positive identification. Placed in gown. Bed in low jb4 position. Call light in reach. Side rails up X 1. monitoring analyst on. Pulse ox on. NIBP on. 05:14 Jose Luis Corea, MARY is Primary Nurse. jb4 05:24 XRAY Chest (1 view) In Process Unspecified. EDMS 05:38 CT C Spine In Process Unspecified. EDMS 05:38 Initial lab(s) drawn, by va, sent to lab. Inserted saline lock: 18 gauge in right jb4 antecubital area, using aseptic technique. Blood collected. 06:26 Pio Armstrong MD is Referral Physician. pkl 06:37 IV discontinued, intact, bleeding controlled, No redness/swelling at site. Pressure jb4 dressing applied. 06:37 No provider procedures requiring assistance completed. jb4 Administered Medications: No medications were administered Outcome: 06:27 Discharge ordered by . pkl 06:37 Discharged to home ambulatory, with family. jb4 06:37 Condition: stable 06:37 Discharge instructions given to patient, Instructed on discharge instructions, follow up and referral plans. Demonstrated understanding of instructions, follow-up care. 06:38 Patient left the ED. jb4 Signatures: Dispatcher [employer] Pablo Tran MD MD pkCharmaine Neumann ds1 Sophy Worley, MARY RN lp1 Jose Luis Corea, MARY RN jb4
[2019-05-29 06:45] VITALS: TEMP 98.4
[2019-05-29 06:48] VITALS: BP 138/76; O2SAT 100
--- NOTE | 2019-05-29 10:43 | RAD REPORT ---
EXAM DESCRIPTION: RAD - Chest Single View - 05/29/2019 5:53 am CLINICAL HISTORY: PALPITATIONS Chest pain. COMPARISON: Chest Single View dated 05/12/2019; Abdomen Acute Series dated 04/05/2019; Chest Single Vi ew dated 03/14/2019; Chest Single View dated 01/14/2019 FINDINGS: Portable technique limits examination quality. Calcified left hilar lymph nodes and calcified granuloma in the left mid lung seen. No focal infiltra te is evident. The heart is normal in size. No displaced fractures. IMPRESSION: No acute intrathoracic process suspected.
--- NOTE | 2019-05-29 12:03 | RAD REPORT ---
EXAM DESCRIPTION: CT Cervical Spine Without Intravenous Contrast CLINICAL HISTORY: The patient is 58 years old and is Male; NUMBNESS/TINGLING TECHNIQUE: Axial computed tomography images of the cervical spine without intravenous contrast. Sa gittal and coronal reformatted images were created and reviewed. This CT exam was performed using o ne or more of the following dose reduction techniques: automated exposure control, adjustment of th e mA and/or kV according to patient size, and/or use of iterative reconstruction technique. COMPARISON: No relevant prior studies available. FINDINGS: Vertebrae: No fracture or subluxation. Straightening of cervical spine may be positional or due to muscle spasm. Discs/spinal canal/neural foramina: Mild disc height loss and osteophyte formation seen at C5-C6 and C6/C7 resulting in mild central canal and foraminal stenosis. Soft tissues: Unremarkable. IMPRESSION: 1. No fracture or subluxation. 2. Straightening of cervical spine may be positional or due to muscle spasm. 3. Mild disc height loss and osteophyte formation seen at C5-C6 and C6/C7 resulting in mild central canal and foraminal stenosis. MRI may be obtained for further evaluation. 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 The interpreting radiologist is f ully responsible for the content of the report.
--- NOTE | 2019-05-30 08:11 | EKG ---
Test Date: 2019-05-29 Test Time: 05:11:25 Outreach Team Member: LUCY MEASUREMENT RESULTS: Intervals: Rate: 53 CT: 154 QRSD: 82 QT: 396 QTc: 371 [place]: P: 49 CT: 154 QRS: 0 T: 17 INTERPRETIVE STATEMENTS: Sinus bradycardia Otherwise normal ECG Compared to ECG 03/01/2019 13:58:57 No significant changes Electronically Signed On 05-30-19 08:10:08 CADD MANAGER by Christian Dooley
== END 2019-05-29 06:38 | disposition home or self-care (01) ==
LOC: ER 04:21
DX: R20.2 Paresthesia of skin (principal); M47.892 Other spondylosis, cervical region; Z88.1 Allergy status to other antibiotic agents; Z91.09 Other allergy status, other than to drugs and biological substances; Z91.040 Latex allergy status; F41.9 Anxiety disorder, unspecified; K21.9 Gastro-esophageal reflux disease without esophagitis; B20 Human immunodeficiency virus [HIV] disease; F43.10 Post-traumatic stress disorder, unspecified
CPT/HCPCS: 36415; 71045; 72125; 80048; 80076; 83735; 83880; 84484; 85025; 85610; 93005; 99284

== ENCOUNTER 2019-06-25 20:46 | Emergency (ER) | payer OTHER ==
--- OUTSIDE RECORDS SUMMARY | 2019-06-25 20:49 | XMS REPORT ---
[...] End Status Dosage System Date Date Clonazepam [facility] 31560757055 2 MG Orally Active TAKE 1 twice a day TABLET BY MOUTH TWICE A DAY Carvedilol [facility] 20376912673 25 MG Orally Active take 1 BID tablet by mouth twice a day Tylenol with [facility] 00857096907 300-30 MG Active 2 tablet as Codeine #3 Orally every 6 needed hrs Dicyclomine HCl ND 99809734808 20 MG Orally Active 1 tablet Four times a day Ondansetron HCl ND 35521942604 4 MG Orally Active 1 tablet Twice a day Aspirin 81 [facility] 76857196940 81 MG Orally September Active 1 tablet Once a day 2016 Zofran ND 22975467268 8 MG Orally November 19, Active 1 tablet as Once a day 2018 needed Creon ND 62417122061 90424-84308 Active take by UNIT Orally 1 mouth 1 tab with each capsule 3 meal times a day as directed ProAir [facility] 62236359539 108 (90 Base) Apr 28, Active 2 puffs as RespiClick MCG/ACT 2014 needed Inhalation q 4-6 h prn Albuterol [facility] 46145281418 108 (90 Base) Apr 29, Active 1 puff Sulfate HFA MCG/ACT 2014 Inhalation every 6 hrs Valsartan [facility] 73056487165 40 MG Orally Active 1 tablet Once a day Famotidine ND 81258115905 20 MG Orally Active 1 tablet at every 12 hrs bedtime Ventolin HFA ND 10377509622 108 (90 Base) Active 2 puffs MCG/ACT Inhalation every 6 hrs PRN [place] [facility] 09730944685 7.5-325 MG Apr 29, Active 1 tablet as Orally TID-prn 2013 needed pain Protonix ND 77124435637 40 MG Orally Active 1 tablet Once a day Results Name Result Date Reference Range Unit Abnormality Flag STREP A RAPID ----Result NEG [id number] FLU TEST A/B ----B NEG [id number] ----A NEG [id number] Summary Purpose eClinicalWorks Submission
--- OUTSIDE RECORDS SUMMARY | 2019-06-25 20:49 | XMS REPORT ---
:1960 [facility] Team Providers Name Role Phone [...] Start End Status Dosage System Date Date [facility] 52131841226 7.5-325 MG Apr 29, Active 1 tablet as Orally TID-prn 2013 needed pain Aspirin 81 ND 47468828609 81 MG Orally September Active 1 tablet Once a day 2016 Protonix ND 47039500773 40 MG Orally Active 1 tablet Once a day Zofran ND 65416059825 8 MG Orally November 19, Active 1 tablet as Once a day 2018 needed Tylenol with [facility] 35883049057 300-30 MG Active 2 tablet as Codeine #3 Orally every 6 needed hrs Albuterol [facility] 27379868726 108 (90 Base) Apr 29, Active 1 puff Sulfate HFA MCG/ACT 2014 Inhalation every 6 hrs Ventolin HFA [facility] 87754586920 108 (90 Base) Active 2 puffs MCG/ACT Inhalation every 6 hrs PRN Ondansetron HCl [facility]AM[facility] 54058318540 4 MG Orally Active 1 tablet Twice a day Carvedilol ND 58761321561 25 MG Orally Active take 1 BID tablet by mouth twice a day Creon [facility] 13274202912 43294-38439 Active take by UNIT Orally 1 mouth 1 tab with each capsule 3 meal times a day as directed Clonazepam [facility]AM[facility] 78380521257 2 MG Orally Active TAKE 1 twice a day TABLET BY MOUTH TWICE A DAY ProAir [facility] 37539249046 108 (90 Base) Apr 28, Active 2 puffs as RespiClick MCG/ACT 2014 needed Inhalation q 4-6 h prn Dicyclomine HCl [facility] 53723220694 20 MG Orally Active 1 tablet Four times a day Valsartan ND 03555928805 40 MG Orally Feb 19, Active 1 tablet Once a day 2018 Famotidine ND 32658555745 20 MG Orally Active 1 tablet at every 12 hrs bedtime Results Name Result Date Reference Range Unit Abnormality Flag HEMOGLOBIN A1C ----A1C 5.2 [id number] Summary Purpose eClinicalWorks Submission
--- OUTSIDE RECORDS SUMMARY | 2019-06-25 20:49 | XMS REPORT ---
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
[2019-06-25 23:14] LABS: Urine Bacteria <20 /HPF (NONE SEEN); Urine Culture Reflex Order NOT NEEDED; Urine RBC >50 /HPF (NONE SEEN)
[2019-06-25 23:15] LABS: Urine Blood 3+ (NEG); Urine Glucose NEGATIVE (NEG); Urine Protein NEGATIVE (NEG); Urine Specific Gravity 1.015 (1.005-1.030)
--- NOTE | 2019-06-26 00:13 | EDPHYS ---
Physician Documentation [facility] Name: Alfredo Escobar Age: 58 yrs Sex: Male : 1960 Arrival Date: 06/25/2019 Time: 20:48 Bed 28 Private MD: ED Physician Rajan Adame HPI: 06/26 03:04 This 58 yrs old Male presents to ER via Ambulatory with complaints of Groin tw4 Injury, Groin Pain. 03:04 Trauma demographics: Location of Injury: The injury occurred at home. tw4 03:04 The patient presents with scrotal pain, of the right side. Onset: The symptoms/episode tw4 began/occurred 4 day(s) ago. Modifying factors: The symptoms are alleviated by nothing, the symptoms are aggravated by nothing. Associated signs and symptoms: The patient has no apparent associated signs or symptoms. Severity of symptoms: At their worst the symptoms were moderate, in the emergency department the symptoms are unchanged. The patient has not experienced similar symptoms in the past. Historical: - Allergies: 06/25 21:20 Bactrim; mg2 21:20 Iodinated Contrast Media - IV Dye; mg2 21:20 Iodine; mg2 21:20 Keflex; mg2 21:20 Latex, Natural Rubber; mg2 21:20 Levaquin; mg2 21:20 promethazine HCl; mg2 21:20 Toradol; mg2 - PMHx: 21:20 Anxiety; Arthritis; Crohn's; GERD; HIV; Pancreatitis; PTSD; mg2 - PSHx: 21:20 hiatal hernia repair; mg2 - Immunization history:: Flu vaccine is not up to date. - Social history:: Smoking status: Patient denies any tobacco usage or history of. - Ebola Screening: : No symptoms or risks identified at this time. ROS: 06/26 03:04 Constitutional: Negative for fever, chills, and weight loss, Eyes: Negative for injury, tw4 pain, redness, and discharge, Cardiovascular: Negative for chest pain, palpitations, and edema, Respiratory: Negative for shortness of breath, cough, wheezing, and pleuritic chest pain, Abdomen/GI: Negative for abdominal pain, nausea, vomiting, diarrhea, and constipation, Back: Negative for injury and pain, Neuro: Negative for headache, weakness, numbness, tingling, and seizure, Psych: Negative for depression, anxiety, suicide ideation, homicidal ideation, and hallucinations. : Positive for injury or acute deformity, hematuria, testicular pain Negative for urinary symptoms, urinary frequency, small amounts, pelvic pain, flank pain, burning with urination, difficulty urinating, foul smelling urine. Exam: 03:04 Constitutional: This is a well developed, well nourished patient who is awake, alert, tw4 and in no acute distress. Head/Face: Normocephalic, atraumatic. Chest/axilla: Normal chest wall appearance and motion. Nontender with no deformity. No lesions are appreciated. Cardiovascular: Regular rate and rhythm with a normal S1 and S2. No gallops, murmurs, or rubs. Normal PMI, no JVD. No pulse deficits. Respiratory: Lungs have equal breath sounds bilaterally, clear to auscultation and percussion. No rales, rhonchi or wheezes noted. No increased work of breathing, no retractions or nasal flaring. Abdomen/GI: Soft, non-tender, with normal bowel sounds. No distension or tympany. No guarding or rebound. No evidence of tenderness throughout. Back: No spinal tenderness. No costovertebral tenderness. Full range of motion. 03:04 : Male external genitalia: tenderness, of the right testicle is noted, is palpated in the right inguinal area, of the epididymis area. Vital Signs: 06/25 21:18 BP 145 / 88; Pulse 58; Resp 18; Temp 97.8; Pulse Ox 100% on R/A; Weight 90.72 kg; mg2 Height 5 ft. 10 in. (177.80 cm); Pain 2/10; 23:46 BP 146 / 86; Pulse 55; Resp 17; Pulse Ox 100% on R/A; Pain 2/10; hb 21:18 Body Mass Index 28.70 (90.72 kg, 177.80 cm) mg2 MDM: 22:11 Patient medically screened. tw4 06/26 03:04 Differential diagnosis: UTI. Data reviewed: vital signs, nurses notes. Data tw4 interpreted: Pulse oximetry: Interpretation: normal. Counseling: I had a detailed discussion with the patient and/or guardian regarding: the historical points, exam findings, and any diagnostic results supporting the discharge/admit diagnosis. Special discussion: I discussed with the patient/guardian in detail that at this point there is no indication for admission to the hospital. It is understood, however, that if the symptoms persist or worsen the patient needs to return immediately for re-evaluation. 06/25 22:51 Order name: Urine Microscopic Only tw4 06/25 23:13 Order name: Urine Dipstick--Ancillary (enter results) mw2 06/25 22:51 Order name: US Scrotum Testicles tw4 06/25 22:51 Order name: Urine Dipstick-Ancillary (obtain specimen); Complete Time: 23:04 tw4 Administered Medications: No medications were administered Disposition: 06/26/19 00:13 Discharged to Home. Impression: scrotal hematoma. - Condition is Stable. - Discharge Instructions: Hematoma, Scrotal Hematoma. - Prescriptions for Tylenol- Codeine #3 300-30 mg Oral Tablet - take 2 tablet by ORAL route every 6 hours As needed; 6 tablet. - Medication Reconciliation Form, Thank You Letter, Antibiotic Education, Prescription Opioid Use form. - Follow up: Private Physician; Reason: Recheck today's complaints, Continuance of care. Follow up: Liz Bernardo MD; When: Upon discharge from the Emergency Department; Reason: Recheck today's complaints, Continuance of care. - Problem is new. - Symptoms have improved. Signatures: Dispatcher [employer] EDMS Dorothea Petty RN RN Rajan Adame MD MD tw4 Kirit Crespo RN RN mg2 Corrections: (The following items were deleted from the chart) 00:14 00:13 06/26/2019 00:13 Discharged to Home. Impression: scrotal hematoma. Condition is tw4 Stable. Forms are Medication Reconciliation Form, Thank You Letter, Antibiotic Education, Prescription Opioid Use. Follow up: Private Physician; Reason: Recheck today's complaints, Continuance of care. Problem is new. Symptoms have improved. tw4 00:23 00:14 06/26/2019 00:13 Discharged to Home. Impression: scrotal hematoma. Condition is hb Stable. Discharge Instructions: Hematoma, Scrotal Hematoma. Prescriptions for Tylenol-Codeine #3 300-30 mg Oral Tablet - take 2 tablet by ORAL route every 6 hours As needed; 6 tablet. and Forms are Medication Reconciliation Form, Thank You Letter, Antibiotic Education, Prescription Opioid Use. Follow up: Private Physician; Reason: Recheck today's complaints, Continuance of care. Follow up: Liz Bernardo; When: Upon discharge from the Emergency Department; Reason: Recheck today's complaints, Continuance of care. Problem is new. Symptoms have improved. tw4
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
--- NOTE | 2019-06-26 08:36 | RAD REPORT ---
EXAM DESCRIPTION: US - Scrotum Testicles - 06/25/2019 11:22 pm CLINICAL HISTORY: Testicular pain COMPARISON: None FINDINGS: Right testicle measures 4.7 x 2.1 x 3.5 centimeters. Echotexture is homogeneous. Normal bl ood flow Left testicle measures 4.2 x 1.8 x 2.6 centimeters. Echotexture is homogeneous. Normal blood flow The epididymides are normal in size and echotexture. Normal blood flow is seen. Right varicocele. 15 millimeter heterogeneous cystic structure right inguinal region IMPRESSION: Right varicocele 15 millimeter heterogeneous cystic structure right inguinal region may represent a small hematoma
[2019-06-26 15:53] VITALS: BP 145/88; TEMP 97.8; O2SAT 100
== END 2019-06-26 00:23 | disposition home or self-care (01) ==
LOC: ER 20:46
DX: S30.22XA Contusion of scrotum and testes, initial encounter (principal); F41.9 Anxiety disorder, unspecified; F43.10 Post-traumatic stress disorder, unspecified; Z21 Asymptomatic human immunodeficiency virus [HIV] infection status; Z88.1 Allergy status to other antibiotic agents; Z88.6 Allergy status to analgesic agent; Z91.040 Latex allergy status; Z91.048 Other nonmedicinal substance allergy status
CPT/HCPCS: 76870; 81003; 81015; 99283

== ENCOUNTER 2019-09-10 00:30 | Emergency (ER) | payer OTHER ==
[2019-09-10 08:52] VITALS: TEMP 98.9
[2019-09-10 08:56] VITALS: BP 131/73; O2SAT 100
== END 2019-09-10 03:43 | disposition home or self-care (01) ==
LOC: ER 00:30
DX: J06.9 Acute upper respiratory infection, unspecified (principal); Z03.818 Encounter for observation for suspected exposure to other biological agents ruled out; Z21 Asymptomatic human immunodeficiency virus [HIV] infection status; Z88.1 Allergy status to other antibiotic agents; Z88.5 Allergy status to narcotic agent; Z91.040 Latex allergy status; Z91.041 Radiographic dye allergy status; Z91.048 Other nonmedicinal substance allergy status
CPT/HCPCS: 93005; 87040 ×2; 87070; 85025; 80048; 36415; 83735; 82550; 80076; 87081; 84484; 82553; 83690; 87804 ×2; 71045; 99284; U0001

== ENCOUNTER 2019-10-12 16:42 | Emergency (ER) | payer OTHER ==
--- OUTSIDE RECORDS SUMMARY | 2019-10-12 16:44 | XMS REPORT | Continuity of Care Document ---
:1960 Author Organization [facility] Care Team Providers Name Role Phone [facility] Unavailable Un available Problems Problem Status Onset Classification Date Comments Sourc e Date Reported Hypertensive Active Problem 04/22/2019 Mische r disorder, Neuro systemic arterial (disorder) Memory Active Problem 04/22/2019 Mischer impairment Neuro (finding) Neck pain Active Problem 04/22/2019 Mischer (finding) Neuro Paresthesia Active Problem 04/22/2019 Mischer (finding) Neuro Simple obesity Active Problem 04/22/2019 Misc her (disorder) Neuro Tremor (finding) Active Problem 04/22/2019 Mi jeronimo Neuro Dizziness Active Problem 04/22/2019 Mischer (finding) Neuro Medications Medication Details Route Status Patient Ordering Order Source Instructions Provider Date valsartan 40 mg 0 Active Mischer oral tablet Refill(s) 019 Neuro pantoprazole 40 40 mg = 1 Active Mische r mg oral enteric tab, PO, 019 Neuro coated tablet Daily, # 30 tab, 0 Refill(s) carvedilol 25 mg 25 mg = 1 Active Misch er oral tablet tab, PO, 019 Neuro BID, # 180 tab, 0 Refill(s) Acetaminophen 1 tab, PO, Active Mischer 325 MG / QID, 0 019 Neuro Hydrocodone Refill(s) Bitartrate 10 MG Oral Tablet [[place] 10/325] Clonazepam 2 MG 2 mg = 1 Active Mischer Oral Tablet tab, PO, 019 Neuro [Klonopin] BID, # 60 tab, 0 Refill(s) Allergies, Adverse Reactions, Alerts Substance Category Reaction Severity Reaction Status Date Comments S ource type Reported Levaquin Assertion Drug Active Misch er allergy Neuro Immunizations No Data Provided for [...] Signs Vital Sign Value Date Comments Source Systolic (mm Hg) 143 03/28/2019 [facility] Penny ro Diastolic (mm Hg) 82 03/28/2019 [facility] Ne uro Heart Rate 53 03/28/2019 [facility] Neuro Respitory Rate 16 03/28/2019 [facility] Neuro Height 172.72 cm 03/28/2019 [facility] Neuro Weight 89.091 03/28/2019 [facility] Neuro BMI Calculated 29.86 03/28/2019 [facility] Neuro BMI Calculated 30.47 09/26/2018 [facility] Neuro Weight 90.909 09/26/2018 [facility] Neuro Height 172.72 cm 09/26/2018 [facility] Neuro Heart Rate 58 09/26/2018 [facility] Neuro Respitory Rate 16 09/26/2018 [facility] Neuro Systolic (mm Hg) 159 09/26/2018 [facility] Penny ro Diastolic (mm Hg) 88 09/26/2018 [facility] Ne uro Encounters Location Location Encounter Encounter Reason Attending ADM CA Stat us Source Details Type Number For Provider Date Date Visit MNA Outpatient [id number] Pio 09/26 09/27 [facility] Neurology [facility] Neuro [place] Outpatient [id number] Pio 10/31 Active [facility] MNA Ambulatory [id number] Pio 10/31 10/31 [facility] Neurology Pre[facility] Neuro Robertson Outpatient [id number] Pio 03/28 [facility] Evan MNA Outpatient [id number] Pio 03/28 03/29 [facility] Neurology [facility] Neuro Robertson MNA Outside [id number] 04/01 04/03 [facility] Neurology Medical /2018 Neuro Robertson Records Outpatient [id number] Pio 04/11 Active [facility] MNA Ambulatory [id number] Pio 04/11 04/11 [facility] Neurology Pre[facility] Neuro Robertson MNA Outside [id number] 04/18 04/20 [facility] Neurology Medical Neuro Robertson Records Procedures No Data Provided for This Section Assessment and Plan No Data Provided for This Section Plan of Care No Data Provided for This Section Social History Social History Date Source Social History TypeResponse 03/28/2019 [facility] Neur o Smoking Status Former smoker; Type: Cigarettes; Exposur e to Tobacco Smoke None; Cigarette Smoking Last 365 Days No; Reg Smoking Cessation Counseling No entered on: 03/28/19 Family History No Data Provided for This Section Advance Directives No Data Provided for This Section Functional Status No Data Provided for This Section
--- OUTSIDE RECORDS SUMMARY | 2019-10-12 16:44 | XMS REPORT | Summary of Care ---
:1960 Author Organization [facility] Neurology [place] Address [address] [place] [address]- phone Encounter HQ Encntr_alias(FIN) [id number] Date(s): 04/18/19 - 04/19/19 [facility] [address], [place] [id number]- [phone] Vital Signs No data available for this section Problem List Condition Effective Dates Status Health Status Informant Dizzy(Confirmed) Active HTN - Hypertension(Confirmed) Active Memory loss(Confirmed) Active [...] Type Response Smoking Status Former smoker; Type: Cigaret martell; Exposure to Tobacco Smoke None; Cigarette Smoking Last 365 Days No; Reg Smoking Cessation Counseling No entered on: 03/28/19 Assessment and Plan No data available for this section
--- OUTSIDE RECORDS SUMMARY | 2019-10-12 16:44 | XMS REPORT | Summary of Care ---
:1960 Author Organization [facility] Neurology [place] Address [address] [place] [address]- Encounter HQ Encntr_alias(FIN) [id number] Date(s): 04/01/19 - 04/02/19 [facility] [place] [address], [place] [id number]- [phone] Vital Signs No data available for this [...]
--- OUTSIDE RECORDS SUMMARY | 2019-10-12 16:44 | XMS REPORT | Summary of Care ---
:1960 Author Organization [facility] Neurology [place] Address [address] [place] [address]- Encounter HQ Nhanr_dwayne(FIN) [id number] Date(s): 03/28/19 - 03/28/19 [facility] [address], [place] [address]- [phone] Discharge Disposition: Home or Self Care Attending Physician: Pio Armstrong MD Referring Physician: Pio Armstrong MD Vital Signs Most recent to oldest [Reference Range]: 1 Height 172.72 cm (03/28/19 1:17 PM) Blood Pressure [90-140/60-90 mmHg] 143/82 mmHg *HI* (03/28/19 1:17 PM) Respiratory Rate [14-20 BRMIN] 16 BRMIN (03/28/19 1:17 PM) Peripheral Pulse Rate [60-100 bpm] 53 bpm *LOW* (03/28/19 1:17 PM) Weight 89.091 kg (03/28/19 1:17 PM) Body Mass Index 29.86 m2 (03/28/19 1:17 PM) Problem List Condition Effective Dates Status Health Status Informant Dizzy(Confirmed) Active HTN - Hypertension(Confirmed) Active Memory loss(Confirmed) Active Neck pain(Confirmed) Active Paresthesias(Confirmed) Active Simple obesity(Confirmed) Active Tremor(Confirmed) Active Allergies, Adverse Reactions, Alerts Substance Reaction Severity Status Levaquin Active Medications valsartan 40 mg oral tablet 0 Refill(s) Start Date: 03/28/19 Status: Ordered Results No data available for [...]
--- OUTSIDE RECORDS SUMMARY | 2019-10-12 16:44 | XMS REPORT | Summary of Care ---
:1960 Author Organization [facility] Neurology [place] Address [address] [place] [address]- phone Encounter HQ Encntr_alias(FIN) [id number] Date(s): 04/11/19 - 04/11/19 [facility] [address] [place] [address]- [phone] Attending Physician: Pio Armstrong MD Referring Physician: [...]
--- OUTSIDE RECORDS SUMMARY | 2019-10-12 16:45 | XMS REPORT ---
:1960 Author Organization [facility] Care Team Providers Name Role Phone Esthela Dunham Provider Role Unavailable Allergies, Adverse Reactions, Alerts Substance Reaction Event Type Phenergan hives Drug Allergy Levaquin stops breathing Drug Allergy Keflex rash Drug Allergy Bactrim DS rash Drug Allergy Problems Problem Type Condition Code Onset Dates Condition Statu s Assessment Hospital discharge follow-up Z09 Active Assessment Post-traumatic stress disorder F43.10 Active Assessment Crohn''s disease without K50.90 Act manju complication, unspecified gastrointestinal tract location Assessment Viral URI J06.9 Active Problem Other chronic pancreatitis K86.1 A ctive Problem Acute tonsillitis, unspecified J03.90 Active etiology [...] Wheezing R06.2 Active Problem Essential hypertension I10 Activ e Problem Essential (primary) hypertension I10 Active Problem Encounter for counseling Z71.9 Act manju Problem Gastro-esophageal reflux disease K21.9 Active without esophagitis Problem Chronic pain syndrome G89.4 Active Problem Lumbar sprain, initial encounter S33.5XXA Active Problem Asymptomatic microscopic hematuria R31.21 Active Problem Crohn''s disease without K50.90 Act manju complication, unspecified gastrointestinal tract location Problem 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 69006718376 2 MG Orally Active TAKE 1 twice a day TABLET BY MOUTH TWICE A DAY Carvedilol ND 84071375101 25 MG Orally Active take 1 BID tablet by mouth twice a day Tylenol with [facility] 47969903134 300-30 MG Active 2 tab let as Codeine #3 Orally every 6 needed hrs Dicyclomine HCl ND 78955586584 20 MG Orally Active 1 tablet Four times a day Ondansetron HCl ND 11208171643 4 MG Orally Active 1 tablet Twice a day Aspirin [address] [facility] 18044806771 81 MG Orally September Active 1 ta blet Once a day 2016 Zofran ND 13909856943 8 MG Orally November 19, Active 1 table t as Once a day 2018 needed Creon [facility] [id number] 30586-30922 Active take by UNIT Orally 1 mouth 1 tab with each capsule 3 meal times a day as directed ProAir [facility] 87957506962 108 (90 Base) Apr 28, Active 2 puff s as RespiClick MCG/ACT 2014 needed Inhalation q 4-6 h prn Albuterol [facility] 10014613134 108 (90 Base) Apr 29, Active 1 pu ff Sulfate HFA MCG/ACT 2014 Inhalation every 6 hrs Valsartan ND 64842111641 40 MG Orally Active 1 tab let Once a day Famotidine ND 23119086823 20 MG Orally Active 1 ta blet at every 12 hrs bedtime Ventolin HFA [facility] 14794449140 108 (90 Base) Active 2 puffs MCG/ACT Inhalation every 6 hrs PRN [place] [facility] 06111411833 7.5-325 MG Apr 29, Active 1 tablet as Orally TID-prn 2013 needed pain Protonix ND 95156657726 40 MG Orally Active 1 tabl et Once a day Results Name Result Date Reference Range Unit Abnormali ty Flag STREP A RAPID ----Result NEG [id number] FLU TEST A/B ----B NEG [id number] ----A NEG [id number] Summary Purpose [employer] Submission
--- OUTSIDE RECORDS SUMMARY | 2019-10-12 16:45 | XMS REPORT ---
:1960 [facility] Team Providers Name Role Phone ClintonEsthela lewis Provider Role Unavailable Allergies, Adverse Reactions, Alerts Substance Reaction Event Type Phenergan hives Drug Allergy Levaquin stops breathing Drug Allergy Keflex rash Drug Allergy Bactrim DS rash Drug Allergy Problems Problem Type Condition Code Onset Dates Condition Statu s Assessment Abnormal blood sugar R73.09 Active Assessment Panic disorder with agoraphobia F40.01 Active Assessment Cervical spondylosis without M47.812 Active myelopathy Assessment Post-traumatic stress disorder F43.10 Active Assessment Crohn''s disease without K50.90 Act manju complication, unspecified gastrointestinal tract location Assessment Essential (primary) hypertension I10 Active Problem Asymptomatic microscopic hematuria R31.21 Active Problem Acute tonsillitis, unspecified J03.90 Active etiology Problem Other chronic pancreatitis K86.1 A ctive Problem Generalized anxiety disorder F41.1 Active Problem [...] 29.0-29.9,adult Z68.29 Active Problem Essential hypertension I10 Activ e Problem Chronic pain syndrome G89.4 Active Problem Essential (primary) hypertension I10 Active Problem Abnormal blood sugar R73.09 Active Problem Gastro-esophageal reflux disease K21.9 Active without esophagitis Problem 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 Problem Lumbar sprain, initial encounter S33.5XXA Active Problem Encounter for counseling Z71.9 Act manju Problem Crohn''s disease without K50.90 Act manju complication, unspecified gastrointestinal tract location Medications Medication Code Code Instructions Start End Status Dosage System Date Date [facility] 71402466717 7.5-325 MG Apr 29, Active 1 tablet as Orally TID-prn 2013 needed pain Aspirin 81 ND 43328491420 81 MG Orally September Active 1 ta blet Once a day 2016 Protonix ND 89695790600 40 MG Orally Active 1 tabl et Once a day Zofran ND 49711666778 8 MG Orally November 19, Active 1 table t as Once a day 2018 needed Tylenol with [facility] 31483192005 300-30 MG Active 2 tab let as Codeine #3 Orally every 6 needed hrs Albuterol ND 02208258535 108 (90 Base) Apr 29, Active 1 pu ff Sulfate HFA MCG/ACT 2014 Inhalation every 6 hrs Ventolin HFA ND 34171370407 108 (90 Base) Active 2 puffs MCG/ACT Inhalation every 6 hrs PRN Ondansetron HCl ND 27246814623 4 MG Orally Active 1 tablet Twice a day Carvedilol ND 01474081912 25 MG Orally Active take 1 BID tablet by mouth twice a day Creon [facility] 27225898634 18551-90770 Active take by UNIT Orally 1 mouth 1 tab with each capsule 3 meal times a day as directed Clonazepam ND 66961790270 2 MG Orally Active TAKE 1 twice a day TABLET BY MOUTH TWICE A DAY ProAir [facility] 46817021589 108 (90 Base) Apr 28, Active 2 puff s as RespiClick MCG/ACT 2014 needed Inhalation q 4-6 h prn Dicyclomine HCl ND 42056031927 20 MG Orally Active 1 tablet Four times a day Valsartan ND 66218731181 40 MG Orally Feb 19, Active 1 ta blet Once a day 2018 Famotidine ND 52348135531 20 MG Orally Active 1 ta blet at every 12 hrs bedtime Results Name Result Date Reference Range Unit Abnormali ty Flag HEMOGLOBIN A1C ----A1C 5.2 [id number] Summary Purpose eClinicalWorks Submission
--- OUTSIDE RECORDS SUMMARY | 2019-10-12 16:45 | XMS REPORT ---
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 Active Problem Crohn''s disease without K50.90 Act manju complication, unspecified gastrointestinal tract location Problem 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 Problem Disc disorder M51.9 Active Problem Post-traumatic stress disorder F43.10 Active Problem Chronic fatigue R53.82 Active Problem Cervical spondylosis without M47.812 Active myelopathy Problem Hospital discharge follow-up Z09 Active Problem Panic disorder with agoraphobia F40.01 Active Problem Gastro-esophageal reflux disease K21.9 Active without esophagitis Problem Abnormal blood sugar R73.09 Active Problem BPH loc w/o ur obs/LUTS N40.0 Acti ve Problem Acute upper respiratory infection J06.9 Active Problem Essential hypertension I10 Activ e Problem BMI 29.0-29.9,adult Z68.29 Active Problem Nausea R11.0 Active Problem Wheezing R06.2 Active Problem Generalized anxiety disorder F41.1 Active Problem Hyperglycemia R73.9 Active Problem Chronic pain syndrome G89.4 Active Problem Essential (primary) hypertension I10 Active Problem Acute tonsillitis, unspecified J03.90 Active etiology Problem Encounter for counseling Z71.9 Act manju Problem Lumbar sprain, initial encounter S33.5XXA Active Problem Asymptomatic microscopic hematuria R31.21 Active Medications Medication Code Code Instructions Start End Status Dosage System Date Date Creon [facility] [id number] July Active take by UNIT Orally 1 21, mouth 1 tab with each 2020 capsule 3 meal times a day as directed Carvedilol ND 11625134983 25 MG Orally Active take 1 BID tablet by mouth twice a day Dicyclomine HCl ND 43421085682 20 MG Orally Active 1 tablet Four times a day Hydrocodone-Mic ND 61693097999 10-325 MG Oral Activ e (Schedule taminophen II Drug) TK 1 T PO TID Protonix ND 78115427100 40 MG Orally Active 1 tabl et Once a day Clonazepam ND 25400011557 2 MG Orally Active TAKE 1 twice a day TABLET BY MOUTH TWICE A DAY Aspirin 81 ND 79665543883 81 MG Orally September Active 1 ta blet Once a day 2016 Famotidine ND 81977325382 20 MG Orally Active 1 ta blet at every 12 hrs bedtime Albuterol [facility] 43162425976 108 (90 Base) Apr 29, Active 1 pu ff Sulfate HFA MCG/ACT 2014 Inhalation every 6 hrs Ventolin HFA [facility] 05327903153 108 (90 Base) Active 2 puffs MCG/ACT Inhalation every 6 hrs PRN Results No Known Results Summary Purpose eClinicalWorks Submission
--- OUTSIDE RECORDS SUMMARY | 2019-10-12 16:45 | XMS REPORT ---
:1960 Author Organization [facility] t Address [address] [place] [address] Care Team Providers Name Role Phone Unavailable Unavailable Unavailable Problems Condition Condition Condition Status Onset Resolution Last Treatin g Comments Name Details Category Date Date Treatment Clinician Date Essential Essential Problem Active (primary) (primary) hypertensio hypertensio n n Chronic Chronic Problem Active fatigue fatigue Generalized Generalized Problem Active anxiety anxiety disorder disorder Hyperglycem Hyperglycem Problem Active ia ia Crohn''s Crohn''s Problem Active disease disease without without complicatio complicatio n, n, unspecified unspecified gastrointes gastrointes tinal tract tinal tract location location Encounter Encounter Problem Active for for counseling counseling Cervical Cervical Problem Active spondylosis spondylosis without without myelopathy myelopathy Post-trauma Post-trauma Problem Active tic stress tic stress disorder disorder Chronic Chronic Problem Active pain pain syndrome syndrome Lumbar Lumbar Problem Active sprain, sprain, initial initial encounter encounter Arthropathi Arthropathi Problem Active c psoriasis c psoriasis Acute Acute Problem Active tonsillitis tonsillitis , , unspecified unspecified etiology etiology Asymptomati Asymptomati Problem Active c c microscopic microscopic hematuria hematuria Narcolepsy Narcolepsy Problem Active without without cataplexy cataplexy Disc Disc Problem Active disorder disorder Other Other Problem Active chronic chronic pancreatiti pancreatiti s s Gastro-esop Gastro-esop Problem Active hageal hageal reflux reflux disease disease without without esophagitis esophagitis Acute upper Acute upper Problem Active respiratory respiratory infection infection Abnormal Abnormal Problem Active blood sugar blood sugar BMI BMI Problem Active 29.0-29.9,a 29.0-29.9,a dult dult Nausea Nausea Problem Active Wheezing Wheezing Problem Active Panic Panic Problem Active disorder disorder with with agoraphobia agoraphobia [facility] Problem Active discharge discharge follow-up follow-up BPH loc w/o BPH loc w/o Problem Active ur obs/LUTS ur obs/LUTS Allergies, Adverse Reactions, Alerts Allergy Allergy Status Severity Reaction(s) Onset Inactive Treating C omments Name Type Date Date Clinician Keflex Adverse Active rash Reaction Phenergan Adverse Active hives Reaction Bactrim DS Adverse Active rash Reaction Levaquin Adverse Active stops Reaction breathing Medications Ordered Filled Start Stop Current Ordering Indication Dosage Frequency Signature Comments Components Medication Medication Date Date Medication? Clinician (SIG) Name Name Aspirin 81 Aspirin 81 2016-0 Yes Esthela 1 tablet 4-12 [place] 00:00: 00 Albuterol Albuterol 2014-06 Yes Esthela 1 puff Sulfate HFA Sulfate HFA -25 [place] 00:00: 00 Clonazepam Clonazepam Yes Esthela TAKE 1 [place] TABLET BY MOUTH TWICE A DAY Carvedilol Carvedilol Yes Esthela take 1 [place] tablet by mouth twice a day Famotidine Famotidine Yes Esthela 1 tablet [place] at bedtime Protonix Protonix Yes Esthela 1 tablet [place] Dicyclomine Dicyclomine Yes Esthela 1 tablet HCl HCl [place] Ventolin Ventolin Yes Esthela 2 puffs HFA HFA [place] Valsartan Valsartan Yes Esthela 1 tablet [place] Hydrocodone Hydrocodone Yes Esthela (Schedul e -Acetaminop -Acetaminop [place] II Drug) hen hen TK 1 T PO TID Creon Creon No Esthela take by 12-23 [place] mouth 1 00:00 capsule 3 :00 times a day as directed Encounters Start End Encounter Admission Attending Care Care Encounter Date/Time Date/Time Type Type Clinicians Facility Department ID 2019-07-15 2019-07-15 [facility] [id number] 15:01:00 15:01:00 [facility]U [facility] 2019-07-09 2019-07-09 [facility] [id number] 16:46:00 16:46:00 [facility]ty[facility]U [facility] 2019-07-08 2019-07-08 [facility] [id number] 14:51:00 14:51:00 Specialty/U Special[facility] 2019-07-08 2019-07-08 [facility] [id number] 08:00:00 08:00:00 Specialty/U Specialty[facility] 2019-07-04 2019-07-04 [facility] [id number] 13:00:00 13:00:00 Specialty/U Specialty[facility] 2019-07-02 2019-07-02 [facility] [id number] 14:32:00 14:32:00 [facility] 2019-06-27 2019-06-27 [facility] [id number] 14:40:00 14:40:00 [facility] 2019-06-03 2019-06-03 [facility] [id number] 11:17:00 11:17:00 [facility] 2019-04-09 2019-04-09 [facility] [id number] 15:20:00 15:20:00 [facility] 2019-02-19 2019-02-19 [facility] [id number] 14:40:00 14:40:00 [facility] 2018-12-11 2018-12-11 [facility] [id number] 11:21:00 11:21:00 [facility] 2018-11-19 2018-11-19 [facility] [id number] 14:40:00 14:40:00 [facility] 2018-09-17 2018-09-17 [facility] [id number] 16:00:00 16:00:00 [facility] 2018-08-02 2018-08-02 [facility] [id number] 16:07:00 16:07:00 [facility] 2018-08-02 2018-08-02 [facility] [id number] 16:05:00 16:05:00 [facility] 2018-06-18 2018-06-18 [facility] [id number] 16:00:00 16:00:00 [facility] 2018-01-18 2018-01-18 [facility] [id number] 14:00:00 14:00:00 [facility] 2017-09-19 2017-09-19 [facility] [id number] 09:33:00 09:33:00 [facility] 2017-09-14 2017-09-14 [facility] [id number] 13:00:00 13:00:00 [facility] 2017-09-12 2017-09-12 [facility] [id number] 11:05:00 11:05:00 [facility] 2017-08-29 2017-08-29 [facility] [id number] 15:30:00 15:30:00 [facility]
--- OUTSIDE RECORDS SUMMARY | 2019-10-12 16:45 | XMS REPORT ---
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
--- OUTSIDE RECORDS SUMMARY | 2019-10-12 16:46 | XMS REPORT ---
:1960 Author Organization eClinicalWorks Care Team Providers Name Role Phone Mandie Fernanda Provider Role Unavailable Allergies No Known Allergies [...]
--- OUTSIDE RECORDS SUMMARY | 2019-10-12 16:46 | XMS REPORT ---
:1960 Author Organization eClinicalWorks Care Team Providers Name Role Phone Varghese Kimberlee Provider Role Unavailable Allergies No Known Allergies [...]
--- OUTSIDE RECORDS SUMMARY | 2019-10-12 16:46 | XMS REPORT ---
:1960 [facility] Team Providers Name Role Phone LanierEsthela lewis Provider Role Unavailable Allergies, Adverse Reactions, Alerts Substance Reaction Event Type Phenergan hives Drug Allergy Levaquin stops breathing Drug Allergy Keflex rash Drug Allergy Bactrim DS rash Drug Allergy Problems Problem Type Condition Code Onset Dates Condition Statu s Assessment Scrotal hematoma S30.22XA Active Assessment Chronic pain syndrome G89.4 Active Assessment Essential (primary) hypertension I10 Active Assessment Crohn''s disease without K50.90 Act manju complication, unspecified gastrointestinal tract location Assessment Post-traumatic stress disorder F43.10 Active Assessment Wheezing R06.2 Active Problem Other chronic pancreatitis K86.1 A [...] End Status Dosage System Date Date Clonazepam [facility] 62173615961 2 MG Orally Active TAKE 1 twice a day TABLET BY MOUTH TWICE A DAY Creon [facility] 50955525589 75154-74717 December Active take by UNIT Orally 1 21, mouth 1 tab with each 2020 capsule 3 meal times a day as directed Carvedilol [facility] 35964283552 25 MG Orally Active take 1 BID tablet by mouth twice a day Famotidine ND 38955774633 20 MG Orally Active 1 ta blet at every 12 hrs bedtime Protonix [facility] 96459472066 40 MG Orally Active 1 tabl et Once a day Dicyclomine HCl [facility] 51426553375 20 MG Orally Active 1 tablet Four times a day Ventolin HFA [facility] 53580295144 108 (90 Base) Active 2 puffs MCG/ACT Inhalation every 6 hrs PRN Valsartan [facility] 99183334670 40 MG Orally Active 1 tab let Once a day Aspirin 81 [facility] 16306285129 81 MG Orally September Active 1 ta blet Once a day 2016 Hydrocodone-Mic [facility] 34743748811 10-325 MG Oral Activ e (Schedule taminophen II Drug) TK 1 T PO TID Albuterol [facility] 17565026263 108 (90 Base) Apr 29, Active 1 pu ff Sulfate HFA MCG/ACT 2014 Inhalation every 6 hrs Results No Known Results Summary Purpose eClinicalWorks Submission
--- OUTSIDE RECORDS SUMMARY | 2019-10-12 16:46 | XMS REPORT ---
:1960 Author Organization eClinicalWorks Care Team Providers Name Role Phone Kimberlee Kwong Provider Role Unavailable Allergies No Known Allergies [...] Start End Date Status Dosage System Date Fosfomycin [facility] 37278-06 3 GM Orally Jul 08, Jul 10, Active 1 packet Tromethamine 00-01 daily 2019 2019 mixed in 3 to 4 ounces of water Results No Known Results Summary Purpose eClinicalWorks Submission
[2019-10-12] MEDS ORDERED: LIDOCAINE VISCOUS 2% SOLN 15 ML UDC ONE (17:28)
[2019-10-12] MEDS ORDERED: MAGNE/ALUM HYDROXD 30 ML UCUP ONE (17:28)
[2019-10-12] MEDS ORDERED: PANTOPRAZOLE 40 MG INJ ONE (17:37)
[2019-10-12] MEDS ORDERED: NA CHLORIDE 0.9% 500 ML ONE (17:37)
[2019-10-12] MEDS ORDERED: NA CHLORIDE 0.9% 50 ML IV ONE (17:41)
[2019-10-12 17:56] LABS: Absolute Lymphocytes (CBC) 1.8 K/uL (0.7-4.9); Basophils % 0.5 % (0-1.3); Hematocrit 43.8 % (39.6-49.0); Lymphocytes % 31.2 % (15.3-44.8); MPV 8.2 fL (7.6-11.3); RBC Red Blood Cell Count 4.86 M/uL (4.33-5.43)
[2019-10-12 18:17] LABS: ALT/SGPT 23 U/L (12-78); AST/SGOT 12 U/L (15-37); Albumin 3.5 g/dL (3.4-5.0); Alkaline Phosphatase 46 U/L (45-117); BUN Blood Urea Nitrogen 12 mg/dL (7-18); Bicarbonate 29 mmol/L (21-32); Bilirubin Total 0.6 mg/dL (0.2-1.0); Glucose Level 107 mg/dL (74-106); Lipase 128 U/L (73-393); Potassium 4.5 mmol/L (3.5-5.1); Protein, Total 6.8 g/dL (6.4-8.2); Sodium Level 141 mmol/L (136-145); Troponin I < 0.02 ng/mL (0.0-0.045)
--- NOTE | 2019-10-12 18:22 | RAD REPORT ---
EXAM DESCRIPTION: RAD - Chest Single View - 10/12/2019 5:55 pm CLINICAL HISTORY: CHEST PAIN COMPARISON: Portable September 09 TECHNIQUE: AP portable chest image was obtained 10/12/2019 5:55 pm . FINDINGS: Lung volumes are reduced compared to prior study. This accentuates a baseline interstitial pattern. Granulomatous calcifications again noted. No new mass or consolidation. Heart and vasculatu re are normal. No measurable pleural effusion and no pneumothorax. No acute bony abnormality seen. No acute aortic findings suspected. IMPRESSION: No acute cardiopulmonary process.
--- NOTE | 2019-10-12 18:32 | EDPHYS ---
Physician Documentation [facility] Name: Alfredo Escobar Age: 58 yrs Sex: Male : 1960 Arrival Date: 10/12/2019 Time: 16:45 Bed 18 Private MD: Pal Collins HPI: 10/11 17:27 This 58 yrs old Male presents to ER via Ambulatory with complaints of acid mack Reflex. 17:27 The patient or guardian reports chest pain that is located primarily in the epigastric mack area, gerd symptoms. Onset: 5 day(s) ago. The patient presents with abdominal pain in the epigastric area. Onset: The symptoms/episode began/occurred 5 day(s) ago. The pain radiates to reflux. The symptoms do not radiate. Associated signs and symptoms: Pertinent positives: headache, nausea. The symptoms are described as burning. Associated signs and symptoms: The patient has no apparent associated signs or symptoms. Historical: - Allergies: 16:58 Bactrim; ll1 16:58 Iodinated Contrast Media - IV Dye; ll1 16:58 Iodine; ll1 16:58 Keflex; ll1 16:58 Latex, Natural Rubber; ll1 16:58 Levaquin; ll1 16:58 promethazine HCl; ll1 16:58 Toradol; ll1 - PMHx: 16:58 Anxiety; PTSD; Pancreatitis; GERD; Arthritis; Crohn's; HIV; ll1 - PSHx: 16:58 hiatal hernia repair; ll1 - Social history:: Smoking status: Patient denies any tobacco usage or history of. Patient/guardian denies using alcohol, street drugs, tobacco products. - Family history:: not pertinent. ROS: 17:27 Constitutional: Negative for fever, chills, and weight loss, Eyes: Negative for injury, mack pain, redness, and discharge, ENT: Negative for injury, pain, and discharge, Neck: Negative for injury, pain, and swelling, Respiratory: Negative for shortness of breath, cough, wheezing, and pleuritic chest pain, Back: Negative for injury and pain, : Negative for injury, bleeding, discharge, and swelling, MS/Extremity: Negative for injury and deformity, Skin: Negative for injury, rash, and discoloration, Neuro: Negative for headache, weakness, numbness, tingling, and seizure. 17:27 Cardiovascular: Positive for chest pain, of the diaphragm and mid-sternal area. 17:27 Respiratory: Negative for cough, dyspnea on exertion, hemoptysis, orthopnea, pleurisy, shortness of breath, sputum production, wheezing, acute changes. 17:27 Abdomen/GI: Positive for abdominal pain, of the epigastric area. Exam: 17:27 Constitutional: This is a well developed, well nourished patient who is awake, alert, mack and in no acute distress. Head/Face: Normocephalic, atraumatic. Eyes: Pupils equal round and reactive to light, extra-ocular motions intact. Lids and lashes normal. Conjunctiva and sclera are non-icteric and not injected. Cornea within normal limits. Periorbital areas with no swelling, redness, or edema. ENT: Nares patent. No nasal discharge, no septal abnormalities noted. Tympanic membranes are normal and external auditory canals are clear. Oropharynx with no redness, swelling, or masses, exudates, or evidence of obstruction, uvula midline. Mucous membranes moist. Neck: Trachea midline, no thyromegaly or masses palpated, and no cervical lymphadenopathy. Supple, full range of motion without nuchal rigidity, or vertebral point tenderness. No Meningismus. Chest/axilla: Normal chest wall appearance and motion. Nontender with no deformity. No lesions are appreciated. Cardiovascular: Regular rate and rhythm with a normal S1 and S2. No gallops, murmurs, or rubs. Normal PMI, no JVD. No pulse deficits. Respiratory: Lungs have equal breath sounds bilaterally, clear to auscultation and percussion. No rales, rhonchi or wheezes noted. No increased work of breathing, no retractions or nasal flaring. Back: No spinal tenderness. No costovertebral tenderness. Full range of motion. Male : Normal genitalia with no discharge or lesions. Skin: Warm, dry with normal turgor. Normal color with no rashes, no lesions, and no evidence of cellulitis. MS/ Extremity: Pulses equal, no cyanosis. Neurovascular intact. Full, normal range of motion. Neuro: Awake and alert, GCS 15, oriented to person, place, time, and situation. Cranial nerves II-XII grossly intact. Motor strength 5/5 in all extremities. Sensory grossly intact. Cerebellar exam normal. Normal gait. Psych: Awake, alert, with orientation to person, place and time. Behavior, mood, and affect are within normal limits. 17:27 Abdomen/GI: Inspection: abdomen appears normal, Bowel sounds: normal, Palpation: mild abdominal tenderness, in the epigastric area. 17:42 ECG was reviewed by the Attending Physician. [facility] Vital Signs: 16:54 BP 150 / 84; Pulse 60; Resp 17; Temp 98.7; Pulse Ox 98% ; Pain 6/10; ll1 MDM: 16:46 Patient medically screened. [facility] 17:30 Data reviewed: vital signs, nurses notes, lab test result(s), EKG, radiologic studies, mack plain films. 17:31 Differential diagnosis: abnormal EKG, anxiety, chest wall pain, esophagitis, gastritis, mack gastroesophageal reflux disease (GERD), hiatal hernia, mitral valve prolapse, pancreatitis, peptic ulcer disease, stable angina, unstable angina, myocardia ischemia or infarction, non-specific abd pain. HEART Score: History: Slightly Suspicious (0), ECG: Normal (0), Age: Risk Factors: 1 or 2 risk factors (1), [Hypertension]. The patient was not given aspirin in the Emergency Department. Data interpreted: hospital monitor: rate is 60 beats/min, Pulse oximetry: on room air is 98 %. Test interpretation: by ED physician or midlevel provider: ECG, plain radiologic studies. 17:43 ED course: improved, will send home with protonix, bland diet, follow up pcp and dr mack dominguez. 10/11 17:27 Order name: CBC with Diff; Complete Time: 18:05 [facility] 10/11 17:27 Order name: Comprehensive Metabolic Panel; Complete Time: 18:30 [facility] 10/11 17:27 Order name: Lipase; Complete Time: 18:30 [facility] 10/11 17:27 Order name: Troponin I; Complete Time: 18:30 [facility] 10/11 17:27 Order name: Chest Single View XRAY; Complete Time: 18:30 [facility] 10/11 17:27 Order name: EKG; Complete Time: 17:28 [facility] 10/11 17:27 Order name: EKG - Nurse/Tech; Complete Time: 17:51 [facility] EC:42 Rate is 53 beats/min. Rhythm is regular. QRS [place] is Normal. MD interval is normal. QRS mack interval is normal. QT interval is normal. No Q waves. T waves are Normal. No ST changes noted. Clinical impression: Normal ECG and No evidence of ischemia. Interpreted by me. Reviewed by me. Administered Medications: 17:26 Drug: GI Cocktail without - (Maalox Suspension 30 ml, Lidocaine Liquid 2 % 15 ah ml) Route: PO; 18:00 Follow up: Response: No adverse reaction 18:06 Drug: ProTONIX 40 mg Route: IVP; Site: right antecubital; 18:30 Follow up: Response: No adverse reaction 18:06 Drug: NS 0.9% 500 ml Route: IV; Rate: bolus; Site: right antecubital; 18:30 Follow up: Response: No adverse reaction; IV Status: Completed infusion 18:40 Not Given (Duplicate Order): GI Cocktail without - (Maalox Suspension 30 ml, ah Lidocaine Liquid 2 % 15 ml) PO once Disposition: 10/12/19 18:31 Discharged to Home. Impression: Gastro-esophageal reflux disease, Chest pain, unspecified, Anxiety disorder, unspecified. - Condition is Stable. - Discharge Instructions: Nonspecific Chest Pain, Food Choices for Gastroesophageal Reflux Disease, Adult, Nonspecific Chest Pain, [id number], Food Choices for Gastroesophageal Reflux Disease, Adult, [id number]. - Prescriptions for Protonix 40 mg Oral Tablet - take 1 tablet by ORAL route once daily; 30 tablet. - Medication Reconciliation Form, Thank You Letter, Antibiotic Education, Prescription Opioid Use form. - Follow up: Private Physician; When: 2 - 3 days; Reason: Recheck today's complaints, Continuance of care, Re-evaluation by your physician. Follow up: Nirmala Dominguez; When: 2 - 3 days; Reason: Recheck today's complaints, Continuance of care, Re-evaluation by your physician. - Problem is new. - Symptoms have improved. Signatures: Dispatcher [employer] EDPal Storm MD MD cha Harris, Amy, RN RN Dominga Arroyo RN RN ll1 Corrections: (The following items were deleted from the chart) 19:12 18:31 10/12/2019 18:31 Discharged to Home. Impression: Gastro-esophageal reflux ah disease; Chest pain, unspecified; Anxiety disorder, unspecified. Condition is Stable. Discharge Instructions: Nonspecific Chest Pain, Food Choices for Gastroesophageal Reflux Disease, Adult, Nonspecific Chest Pain, [id number], Food Choices for Gastroesophageal Reflux Disease, Adult, [id number]. Prescriptions for Protonix 40 mg Oral Tablet - take 1 tablet by ORAL route once daily; 30 tablet. and Forms are Medication Reconciliation Form, Thank You Letter, Antibiotic Education, Prescription Opioid Use. Follow up: Private Physician; When: 2 - 3 days; Reason: Recheck today's complaints, Continuance of care, Re-evaluation by your physician. Follow up: Nirmala Dominugez; When: 2 - 3 days; Reason: Recheck today's complaints, Continuance of care, Re-evaluation by your physician. Problem is new. Symptoms have improved. mack
--- NOTE | 2019-10-12 18:32 | ER ---
Nurse's Notes [facility] Name: Alfredo Escobar Age: 58 yrs Sex: Male : 1960 Arrival Date: 10/12/2019 Time: 16:45 Bed 18 Private MD: Diagnosis: Gastro-esophageal reflux disease;Chest pain, unspecified;Anxiety disorder, unspecified Presentation: 10/11 16:54 Chief complaint: Patient states: Burning chest pain for 2.5 weeks. States he believes ll1 its acid reflux, unable to see PCP [facility]. Coronavirus screen: Proceed with normal triage. Patient denies a cough. Patient denies shortness of breath or difficulty breathing. Patient denies measured and/or subjective temperature greater than 100.4F prior to today's visit. Patient denies travel on a cruise ship or to a country the [facility] currently lists as an affected area. Patient denies contact with known and/or suspected case of COVID-19. Ebola Screen: Patient denies travel to an Ebola-affected area in the 21 days before illness onset. Initial Sepsis Screen: Does the patient meet any 2 criteria? No. Patient's initial sepsis screen is negative. Does the patient have a suspected source of infection? No. Patient's initial sepsis screen is negative. Risk Assessment: Do you want to hurt yourself or someone else? Patient reports no desire to harm self or others. Onset of symptoms was September 28, 2019. 16:54 Method Of Arrival: Ambulatory ll1 16:54 Acuity: BUCKY 3 ll1 Historical: - Allergies: 16:58 Bactrim; ll1 16:58 Iodinated Contrast Media - IV Dye; ll1 16:58 Iodine; ll1 16:58 Keflex; ll1 16:58 Latex, Natural Rubber; ll1 16:58 Levaquin; ll1 16:58 promethazine HCl; ll1 16:58 Toradol; ll1 - PMHx: 16:58 Anxiety; PTSD; Pancreatitis; GERD; Arthritis; Crohn's; HIV; ll1 - PSHx: 16:58 hiatal hernia repair; ll1 - Social history:: Smoking status: Patient denies any tobacco usage or history of. Patient/guardian denies using alcohol, street drugs, tobacco products. - Family history:: not pertinent. Screenin:28 Abuse screen: Denies threats or abuse. Nutritional screening: No deficits noted. Tuberculosis screening: No symptoms or risk factors identified. Fall Risk None identified. Assessment: 17:17 General: Appears in no apparent distress. Behavior is calm, cooperative. Pain: Denies pain. Neuro: Level of Consciousness is awake, alert, Oriented to person, place, time, situation. Cardiovascular: Heart tones S1 S2 present. Respiratory: Airway is patent Respiratory effort is even, unlabored, Respiratory pattern is regular, symmetrical. GI: Abdomen is distended, 17:17 GI: Reports constipation, indigestion, nausea. : No signs and/or symptoms were ah reported regarding the genitourinary system. EENT: No signs and/or symptoms were reported regarding the EENT system. Derm: No signs and/or symptoms reported regarding the dermatologic system. Musculoskeletal: No signs and/or symptoms reported regarding the musculoskeletal system. Vital Signs: 16:54 BP 150 / 84; Pulse 60; Resp 17; Temp 98.7; Pulse Ox 98% ; Pain 6/10; ll1 ED Course: 16:45 Patient arrived in ED. mr 16:46 Pal Ferreira MD is Attending Physician. [facility] 16:54 Dominga Gamez, RN is Primary Nurse. ll1 16:56 Triage completed. ll1 16:58 Arm band placed on Patient placed in an exam room, on a stretcher. ll1 17:00 Patient has correct armband on for positive identification. Bed in low position. Call light in reach. Side rails up X 1. 17:10 Rasheeda Gleason, RN is Primary Nurse. 17:48 Inserted saline lock: 20 gauge in right antecubital area, using aseptic technique. carmencita Blood collected. 17:48 Initial lab(s) drawn, by nc, sent to lab. EKG done, by ED staff, reviewed by Pal Ferreira MD X-ray(s) taken. 17:55 Chest Single View XRAY In Process Unspecified. EDMS 18:30 No provider procedures requiring assistance completed. IV discontinued, intact, bleeding controlled, No redness/swelling at site. Pressure dressing applied. 18:31 Nirmala Concepcion MD is Referral Physician. [facility] Administered Medications: 17:26 Drug: GI Cocktail without - (Maalox Suspension 30 ml, Lidocaine Liquid 2 % 15 ah ml) Route: PO; 18:00 Follow up: Response: No adverse reaction 18:06 Drug: ProTONIX 40 mg Route: IVP; Site: right antecubital; 18:30 Follow up: Response: No adverse reaction 18:06 Drug: NS 0.9% 500 ml Route: IV; Rate: bolus; Site: right antecubital; 18:30 Follow up: Response: No adverse reaction; IV Status: Completed infusion 18:40 Not Given (Duplicate Order): GI Cocktail without - (Maalox Suspension 30 ml, ah Lidocaine Liquid 2 % 15 ml) PO once Outcome: 18:31 Discharge ordered by . mack 18:45 Discharged to home ambulatory. 18:45 Condition: good 18:45 Discharge instructions given to patient, Instructed on discharge instructions, follow up and referral plans. medication usage, Demonstrated understanding of instructions, follow-up care, medications. 19:12 Patient left the ED. Signatures: Dispatcher [employer] EDPal Storm MD MD cha Rivera Genesis Nicolas Andino [id number] Rasheeda Gleason, RN RN Dominga Arroyo RN RN ll1
[2019-10-12 19:20] VITALS: BP 150/84; TEMP 98.7; O2SAT 98
--- NOTE | 2019-10-13 08:40 | EKG ---
Test Date: 2019-10-12 Test Time: 17:38:38 Correctional Supervisor Lieutenant: GIANFRANCO MEASUREMENT RESULTS: Intervals: Rate: 53 MA: 144 QRSD: 80 QT: 400 QTc: 375 [place]: P: 39 MA: 144 QRS: 12 T: 28 INTERPRETIVE STATEMENTS: Sinus bradycardia Otherwise normal ECG Compared to ECG 09/10/2019 01:16:44 No significant changes Electronically Signed On 10-13-19 08:38:36 CDT by Christian Dooley
== END 2019-10-12 19:12 | disposition home or self-care (01) ==
LOC: ER 16:42
DX: K21.9 Gastro-esophageal reflux disease without esophagitis (principal); F41.9 Anxiety disorder, unspecified; Z21 Asymptomatic human immunodeficiency virus [HIV] infection status; Z88.1 Allergy status to other antibiotic agents; Z88.5 Allergy status to narcotic agent; Z88.8 Allergy status to other drugs, medicaments and biological substances; Z91.040 Latex allergy status; Z91.041 Radiographic dye allergy status; Z91.048 Other nonmedicinal substance allergy status
CPT/HCPCS: 93005; 85025; 36415; 84484; 83690; 80053; 71045; 96374; 99284; C9113; J7040

== ENCOUNTER 2019-10-24 19:46 | Emergency (ER) | payer OTHER ==
--- OUTSIDE RECORDS SUMMARY | 2019-10-24 19:48 | XMS REPORT | Continuity of Care Document ---
:1960 Author Organization [facility] Care Team Providers Name Role Phone [facility] Unavailable Un available Problems Problem Status Onset [...] Hydrocodone Refill(s) Bitartrate 10 MG Oral Tablet [[place] 10/325] Clonazepam 2 MG 2 mg = [...] Comments Source Systolic (mm Hg) 143 03/28/2019 [facility] Diastolic (mm Hg) 82 03/28/2019 [facility] Heart Rate 53 03/28/2019 [facility] Respitory Rate 16 03/28/2019 [facility] Height 172.72 cm 03/28/2019 [facility] Weight 89.091 03/28/2019 [facility] BMI Calculated 29.86 03/28/2019 [facility] BMI Calculated 30.47 09/26/2018 [facility] Weight 90.909 09/26/2018 [facility] Height 172.72 cm 09/26/2018 [facility] Heart Rate 58 09/26/2018 [facility] Respitory Rate 16 09/26/2018 [facility] Systolic (mm Hg) 159 09/26/2018 [facility] Diastolic (mm Hg) 88 09/26/2018 [facility] Encounters Location Location Encounter Encounter Reason Attending ADM PR Stat us Source Details Type Number For Provider Date Date Visit [facility] Outpatient [id number] [place] 09/26 09/27 [facility] Out[facility] [id number] [place] 10/31 Active [facility] Ambulatory [id number] [place] 10/31 10/31 [facility] Outpatient [id number] [place] 03/28 [facility] Outpatient [id number] [place] 03/28 03/29 [facility] MNA Outside [id number] 04/01 04/03 [facility] Neurology Medical /2018 Neuro [facility] Records Outpatient [id number] [place] 04/11 Active [facility] Ambulatory [id number] [place] 04/11 04/11 [facility] MNA Outside [id number] 04/18 04/20 [facility] Neurology Medical Neuro [facility] Records Procedures No Data Provided for This Section Assessment and Plan No Data Provided for This Section Plan of Care No Data Provided for This Section Social History Social History Date Source Social History TypeResponse 03/28/2019 [facility] Smoking Status Former smoker; Type: Cigarettes; Exposur e to Tobacco Smoke None; Cigarette Smoking Last 365 Days No; Reg Smoking Cessation Counseling No entered on: 03/28/19 Family History No Data Provided for This Section Advance Directives No Data Provided for This Section Functional Status No Data Provided for This Section
--- OUTSIDE RECORDS SUMMARY | 2019-10-24 19:49 | XMS REPORT ---
:1960 Author [facility] Care Team Providers Name Role Phone LuquilloEsthela lewis Provider Role Unavailable Allergies, Adverse Reactions, [...] End Status Dosage System Date Date Clonazepam [facility] 28246283505 2 MG Orally Active TAKE 1 twice a day TABLET BY MOUTH TWICE A DAY Creon [facility] 04135465751 [id number] December Active take by UNIT Orally 1 21, mouth 1 tab with each 2020 capsule 3 meal times a day as directed Carvedilol [facility] 35588263968 25 MG Orally Active take 1 BID tablet by mouth twice a day Famotidine ND 25982438609 20 MG Orally Active 1 ta blet at every 12 hrs bedtime Protonix [facility] 36396510762 40 MG Orally Active 1 tabl et Once a day Dicyclomine HCl [facility] 65842763579 20 MG Orally Active 1 tablet Four times a day Ventolin HFA [facility] 17095429376 108 (90 Base) Active 2 puffs MCG/ACT Inhalation every 6 hrs PRN Valsartan [facility] 17532364650 40 MG Orally Active 1 tab let Once a day Aspirin 81 [facility] 90463571316 81 MG Orally September Active 1 ta blet Once a day 2016 Hydrocodone-Mic [facility] 51794616518 10-325 MG Oral Activ e (Schedule taminophen II Drug) TK 1 T PO TID Albuterol [facility] 16977337024 108 (90 Base) Apr 29, Active 1 pu ff Sulfate HFA MCG/ACT 2014 Inhalation every 6 hrs Results No Known Results Summary Purpose [employer]ClinicalWorks Submission
--- OUTSIDE RECORDS SUMMARY | 2019-10-24 19:49 | XMS REPORT ---
:1960 Author Organization [facility] t Address [address] [place] [address] Care Team Providers Name Role Phone Theo Hernandez NP Attending Clinician Mau Armstrong Attending Clinician Problems Condition Condition Condition Status Onset Resolution Last Treating Co mments Source Name Details Category Date Date Treatment Clinician Date Essential Essential Problem [facility]primary[facility] - hypertensi hypertensi Me moria on on l Outpati ent Clinics Chronic Chronic Problem Active [facility] fatigue fatigue [facility] Generalize Generalize Problem Active [facility] d anxiety d anxiety Luke s - disorder disorder Memori a l [facility]pati ent Clinics Hyperglyce Hyperglyce Problem Active [facility] alex alex [facility] Crohn''s Crohn''s Problem [facility] disease [facility] without without Memoria complicati complicati l on, on, Outpati unspecifie unspecifie en t d d Clinics gastrointe gastrointe stinal stinal tract tract location location Encounter Encounter Problem Active [facility] for for [facility] - counseling counseling Me moria l Outpati ent Clinics Cervical Cervical Problem Active [facility] spondylosi spondylosi [facility] k[facility] - s without s without Lucio raiza myelopathy myelopathy l Outpati ent Clinics Post-traum Post-traum Problem Active [facility] atic atic [facility] - stress stress Memoria disorder disorder l Outpati ent Clinics Chronic Chronic Problem Active [facility] pain pain [facility] - syndrome syndrome [facility] a [facility] ent [facility]ics Lumbar Lumbar Problem Active [facility] sprain, sprain, [facility] - initial initial [facility] encounter encounter l [facility] Arthropath Arthropath Problem Active [facility] ic [facility] psoriasis psoriasis Lucio raiza l [facility] Acute Acute Problem Active [facility] tonsilliti tonsilliti Martha kes - s, s, Memoria unspecifie unspecifie l d etiology d etiology Ou tpati ent Clinics Asymptomat Asymptomat Problem Active [facility] - microscopi microscopi Me moria c c l hematuria hematuria Outp ati ent Clinics Narcolepsy Narcolepsy Problem Active [facility] without without [facility] - cataplexy cataplexy Lucio raiza l [facility] Disc Disc Problem Active [facility] disorder disorder [facility] Other Other Problem Active [facility] chronic chronic [facility] pancreatit pancreatit Me moria is is l [facility] Gastro-eso Gastro-eso Problem Active [facility] phageal phageal [facility] - reflux reflux Memoria disease disease l without without Outpati esophagiti esophagiti en t s s Clinics Acute Acute Problem Active [facility] upper upper [facility] - respirator respirator Me moria y y l infection infection Outp ati ent Clinics Abnormal Abnormal Problem Active [facility] blood blood [facility] sugar sugar [facility] BMI BMI Problem Active [facility] 29.0-29.9, 29.0-29.9, Martha kes - adult adult [facility] Nausea Nausea Problem Active [facility] Wheezing Wheezing Problem [facility] Panic Panic Problem Active [facility] disorder disorder [facility] - with with Memoria agoraphobi agoraphobi l a a [facility] Hospital Hospital Problem Active [facility] - follow-up follow-up Lucio raiza l [facility]ics BPH loc BPH loc Problem Active [facility] w/o ur w/o ur [facility] - obs/LUTS obs/LUTS [facility] a [facility] Hypertensi Problem Active 2019-04-22 M ischer ve 01:06:38 Neuro disorder, systemic Hypertensi arterial ve (disorder) disorder, systemic arterial (disorder) Active Problem 04/22/2019 [facility] Memory Problem Active 2019-04-22 Misch er impairment 01:06:38 Neur o (finding) Memory impairment (finding) Active Problem 04/22/2019 [facility] Neck pain Problem Active 2019-04-22 Mi jeronimo (finding) 01:06:38 Neuro Neck pain (finding) Active Problem 04/22/2019 [facility] Paresthesi Problem Active 2019-04-22 M ischer a 01:06:38 Neuro (finding) Paresthesi a (finding) Active Problem 04/22/2019 [facility] Simple Problem Active 2019-04-22 Misch er obesity 01:06:38 Neuro (disorder) Simple obesity (disorder) Active Problem 04/22/2019 [facility] Tremor Problem Active 2019-04-22 Misch er (finding) 01:06:38 Neuro Tremor (finding) Active Problem 04/22/2019 [facility] Dizziness Problem Active 2019-04-22 Mi jeronimo (finding) 01:06:38 Neuro Dizziness (finding) Active Problem 04/22/2019 [facility] Allergies, Adverse Reactions, Alerts Allergy Allergy Status Severity Reaction(s) Onset Inactive Treating Comm ents Source Name Type Date Date Clinician Keflex Adverse Active rash [facility] Phenerga Adverse Active hives [facility] n Reaction [facility] Bactrim Adverse Active rash [facility] DS Reaction [facility] Levaquin Adverse Active stops [facility] Reaction breathing [facility] Levaquin Levaquin Active Memori a [facility] Social History Smoking Status Start Date Stop Date Source Social History 2019-03-28 18:18:16 2019-03-28 18:18:16 [facility] Medications Ordered Filled Start Stop Current Ordering Indication Dosage Frequency Signature Comments Components Source Medication Medication Date Date Medication? Clinician (SIG) Name Name valsartan 2018-06 Yes 0 [facility] 40 mg oral 0-24 Refill(s) Neur o tablet 19:12: 00 pantoprazol 2018- Yes 40 mg = 1 M ischer e 40 mg 4-24 tab, PO, Neuro oral 19:00: Daily, # enteric 00 30 tab, 0 coated Refill(s) tablet carvedilol 2018- Yes 25 mg = 1 Mi jeronimo 25 mg oral 4-24 tab, PO, Neuro tablet 19:00: BID, # 180 00 tab, 0 Refill(s) Acetaminoph Yes 1 tab, PO, Mischer en 325 MG / 4-24 QID, 0 Neuro Hydrocodone 19:00: Refill(s) Bitartrate 00 10 MG Oral Tablet [[place] 10/325] Clonazepam Yes 2 mg = 1 Mis ginna 2 MG Oral 4-24 tab, PO, Neuro Tablet 19:00: BID, # 60 [Klonopin] 00 tab, 0 Refill(s) Aspirin 81 Aspirin 81 Yes Esthela [address] [facility] 4-12 [place] [facility] - 00:[facility]: [facility] 00 [facility] Albuterol Albuterol 2014-06 Yes Esthela [address] [facility] Sulfate HFA Sulfate HFA 1-25 [place] [facility] - 00:[facility]: [facility] 00 [facility] Clonazepam Clonazepam Yes Esthela TAKE [address] [facility] [place] TABLET BY [facility]ukes - MOUTH Memoria TWICE A l DAY [facility] Carvedilol Carvedilol Yes Esthela take [address] [facility] [place] tablet by [facility]ukes - mouth Memoria twice a l day [facility] Famotidine Famotidine Yes Esthela [address] [facility] [place] at bedtime [facility] Protonix Protonix Yes Esthela [address] [place] [facility] Dicyclomine Dicyclomine Yes Esthela [address] HCl HCl [place] Ventolin Ventolin Yes Esthela [address] HFA HFA [place] [facility] ent [facility]ics Valsartan Valsartan Yes Esthela [address] [facility] [place] [facility] Hydrocodone Hydrocodone Yes Esthela (Schedule [facility] -Acetaminop -Acetaminop [place] II Drug) Ludoroteo - hen hen TK 1 T PO Memoria TID l [facility] Creon Creon 2019- No Esthela take by [facility] 07-21 [place] mouth 1 [facility] - 00:00 capsule 3 Memoria :00 times a l day as [facility] Vital Signs Vital Name Observation Time Observation Value Comments Source Systolic (mm Hg) 2019-03-28 18:17:00 Misc her Neuro Diastolic (mm Hg) 2019-03-28 18:17:00 Mis ginna Neuro Heart Rate 2019-03-28 18:17:00 [facility] Respitory Rate 2019-03-28 18:17:00 Mische r Neuro Height 2019-03-28 18:17:00 172.72 cm [facility] Weight 2019-03-28 18:17:00 [facility] BMI Calculated 2019-03-28 18:17:00 Mische r Neuro BMI Calculated 2018-09-26 18:51:00 Mische r Neuro Weight 2018-09-26 18:51:00 [facility] Height 2018-09-26 18:51:00 172.72 cm [facility] Heart Rate 2018-09-26 18:51:00 [facility] Neuro Respitory Rate 2018-09-26 18:51:00 Mische r Neuro Systolic (mm Hg) 2018-09-26 18:51:00 Misc her Neuro Diastolic (mm Hg) 2018-09-26 18:51:00 Mis ginna Neuro Procedures This patient has no known procedures. Encounters Start End Encounter Admission Attending Care Care Encounter Source Date/Time Date/Time Type Type Clinicians Facility Department ID 2019-07-21 2019-07-21 Emergency [facility] [id number] 18:06:23 22:09:00 Camila Layton [id number] [place] [id number] [place] [id number] 2019-07-15 2019-07-15 [facility] [id number] [facility] 15:01:00 15:01:00 t Specialty/U Martha kes - Specialty rology Memori a /Urology Clinic l Clinic Outpati ent Clinics 2019-07-09 2019-07-09 [facility] [id number] [facility] 16:46:00 16:46:00 t Specialty/U Martha kes - Specialty rology Memori a /Urology Clinic l Clinic Outpati ent Clinics 2019-07-08 2019-07-08 [facility] [id number] [facility] [address] 14:51:00 14:51:00 t Specialty/U Martha kes - Specialty rology Memori a /Urology Clinic l Clinic Outpati ent Clinics 2019-07-08 2019-07-08 [facility] [id number] [facility] [address] 08:00:00 08:00:00 t Specialty/U Martha kes - Specialty rology Memori a /Urology Clinic l Clinic Outpati ent Clinics 2019-07-04 2019-07-04 [facility] [id number] [facility] 13:00:00 13:00:00 t Specialty/U Martha kes - Specialty rology Memori a /Urology Clinic l Clinic Outpati ent Clinics 2019-07-02 2019-07-02 [facility] [id number] [facility] 14:32:00 14:32:00 t [facility] Medicine Outpati ent Clinics 2019-06-27 2019-06-27 [facility] [id number] 14:40:00 14:40:00 t [facility] Medicine Outpati ent Clinics 2019-06-03 2019-06-03 [facility] [id number] [address] 11:17:00 11:17:00 t [facility] Medicine Outpati ent Clinics 2019-04-18 2019-04-20 Outside MHIEALT MNA [id number] [facility] 18:37:59 05:59:59 Medical Neurology 01 Neur o Records [place] 2019-04-18 2019-04-19 Outpatient MHMISCHER MHMISCHER [id number] 12:37:59 23:59:59 2019-04-11 2019-04-11 Ambulatory MHIEALT MNA [id number] [facility] 21:30:00 21:30:00 Pre-Reg Neurology 03 Neur o [place] 2019-04-11 2019-04-11 Outpatient MHIEALT [facility] [id number] 15:30:00 03 roberto Gordon 2019-04-11 2019-04-11 Outpatient ALICE ArmstrongMISCHER MHMISCHER [id number] 15:30:00 15:30:00 [place] Kisha Mau 2019-04-09 2019-04-09 [facility] [id number] [facility] 15:20:00 15:20:00 [facility] Medicine Outpati ent Clinics 2019-04-01 2019-04-03 Outside MHIEALT MNA [id number] [facility] 13:58:44 04:59:59 Medical Neurology 00 Neur o Records [place] 2019-04-01 2019-04-02 Outpatient MHMISCHER MHMISCHER [id number] 08:58:44 23:59:59 00 2019-03-28 2019-03-29 Outpatient MHIEALT MNA [id number] [facility] 18:00:00 04:59:59 Neurology 02 Neur o [place] 2019-03-28 2019-03-28 Outpatient ALICE ArmstrongMISCHER MHMISCHER [id number] 13:00:00 23:59:59 Pio Mau 2019-03-28 2019-03-28 Outpatient MHIEALT MHIEALT [id number] Memoria 13:00:00 13:00:00 02 roberto [place] 2019-02-19 2019-02-19 [facility] [id number] [facility] 14:40:00 14:40:00 [facility] Medicine Outpati ent Clinics 2018-12-11 2018-12-11 [facility] [id number] [facility] 11:21:00 11:21:00 [facility] 2018-11-19 2018-11-19 [facility] [id number] 14:40:00 14:40:00 [facility] 2018-10-31 2018-10-31 Ambulatory MHIEALT MNA [id number] [facility] 18:45:00 18:45:00 Pre-Reg Neurology 01 Neur o [place] 2018-10-31 2018-10-31 Outpatient MHIEALT MHIEALT [id number] Memoria 13:45:00 13:45:00 01 roberto Evan 2018-10-31 2018-10-31 Outpatient Nathaniel MHMISCHER MHMISCHER [id number] 13:45:00 13:45:00 Pio Mireya León 2018-09-26 2018-09-27 Outpatient MHIEALT MNA [id number] [facility] 18:30:00 04:59:59 Neurology 00 Neur o [place] 2018-09-26 2018-09-26 [facility] [id number] 13:30:00 23:59:59 Pio Coby León 2018-09-17 2018-09-17 [facility] [id number] [facility] 16:00:00 16:00:00 [facility] Medicine Outpati ent Clinics 2018-08-02 2018-08-02 [facility] [id number] [facility] 16:07:00 16:07:00 [employer] [facility] Medicine l Medicine Outpati ent Clinics 2018-08-02 2018-08-02 [facility] [id number] [facility] 16:05:00 16:05:00 [facility] Medicine Outpat[facility] Clinics 2018-06-18 2018-06-18 [facility] [id number] [facility] 16:00:00 16:00:00 [facility] Medicine Outpati ent Clinics 2018-01-18 2018-01-18 [facility] [id number] [facility] 14:00:00 14:00:00 [facility] Medicine Outpati ent Clinics 2017-09-19 2017-09-19 [facility] [id number] [facility] [address] 09:33:00 09:33:00 [facility] Medicine Outpati ent Clinics 2017-09-14 2017-09-14 [facility] [id number] 13:00:00 13:00:00 [facility] Medicine Medicine Outpati ent Clinics 2017-09-12 2017-09-12 [facility] [id number] 11:05:00 11:05:00 [facility] Medicine Outpati ent Clinics 2017-08-29 2017-08-29 [facility] [id number] [facility] 15:30:00 15:30:00 [facility] Medicine Outpati ent Clinics Results This patient has no known results.
[2019-10-24 21:04] LABS: Absolute Lymphocytes (CBC) 2.5 K/uL (0.7-4.9); Basophils % 0.4 % (0-1.3); Hematocrit 43.1 % (39.6-49.0); Lymphocytes % 40.5 % (15.3-44.8); MPV 8.2 fL (7.6-11.3); RBC Red Blood Cell Count 4.78 M/uL (4.33-5.43)
[2019-10-24] MEDS ORDERED: ONDANSETRON 4 MG/2 ML VIAL ONE (21:04)
[2019-10-24] MEDS ORDERED: NA CHLORIDE 0.9% 1,000 ML ONE (21:04)
[2019-10-24] MEDS ORDERED: MORPHINE 4 MG/ML SYR ONE (21:04)
[2019-10-24 21:16] LABS: ALT/SGPT 24 U/L (12-78); AST/SGOT 17 U/L (15-37); Albumin 3.6 g/dL (3.4-5.0); Alkaline Phosphatase 49 U/L (45-117); BUN Blood Urea Nitrogen 9 mg/dL (7-18); Bicarbonate 31 mmol/L (21-32); Bilirubin Total 0.7 mg/dL (0.2-1.0); Glucose Level 89 mg/dL (74-106); Potassium 4.2 mmol/L (3.5-5.1); Protein, Total 6.9 g/dL (6.4-8.2); Sodium Level 142 mmol/L (136-145)
[2019-10-24 21:20] LABS: Urine Blood TRACE (NEG); Urine Glucose NEGATIVE (NEG); Urine Protein NEGATIVE (NEG); Urine Specific Gravity 1.025 (1.005-1.030); Urine pH 6.5 (5.0-7.0)
[2019-10-24 22:30] LABS: Lipase 107 U/L (73-393)
--- NOTE | 2019-10-24 23:24 | EDPHYS ---
Physician Documentation [facility] Name: Alfredo Escobar Age: 59 yrs Sex: Male : 1960 Arrival Date: 10/24/2019 Time: 19:47 Bed 19 Private MD: ED Physician Pal Ferreira HPI: 10/23 20:26 This 59 yrs old Male presents to ER via Ambulatory with complaints of Low mack Back Pain. 20:26 The patient presents with pain that is acute, with no known mechanism of injury. The mack symptoms are located in the low back, lumbar area, left low back, left mid back, right mid back and right low back. The pain does not radiate. The problem was sustained from unknown cause. Onset: The symptoms/episode began/occurred 4 day(s) ago. Modifying factors: The patient symptoms are alleviated by nothing, the patient symptoms are aggravated by nothing. Associated signs and symptoms: The patient has no apparent associated signs or symptoms. Severity of symptoms: At their worst the symptoms were moderate, in the emergency department the symptoms are unchanged. The patient has not experienced similar symptoms in the past. Historical: - Allergies: 19:49 Bactrim; sg 19:49 Iodinated Contrast Media - IV Dye; sg 19:49 Iodine; sg 19:49 Keflex; sg 19:49 Latex, Natural Rubber; sg 19:49 Levaquin; sg 19:49 promethazine HCl; sg 19:49 Toradol; sg - PMHx: 19:49 Anxiety; Arthritis; Crohn's; GERD; HIV; Pancreatitis; PTSD; sg - PSHx: 19:49 hiatal hernia repair; sg - Immunization history:: Adult Immunizations up to date. - Social history:: Smoking status: Patient denies any tobacco usage or history of. - Family history:: not pertinent. ROS: 20:26 Constitutional: Negative for fever, chills, and weight loss, Eyes: Negative for injury, mack pain, redness, and discharge, ENT: Negative for injury, pain, and discharge, Neck: Negative for injury, pain, and swelling, Cardiovascular: Negative for chest pain, palpitations, and edema, Respiratory: Negative for shortness of breath, cough, wheezing, and pleuritic chest pain, : Negative for injury, bleeding, discharge, and swelling, MS/Extremity: Negative for injury and deformity, Skin: Negative for injury, rash, and discoloration, Neuro: Negative for headache, weakness, numbness, tingling, and seizure, Psych: Negative for depression, anxiety, suicide ideation, homicidal ideation, and hallucinations, Allergy/Immunology: Negative for hives, rash, and allergies, Endocrine: Negative for neck swelling, polydipsia, polyuria, polyphagia, and marked weight changes, Hematologic/Lymphatic: Negative for swollen nodes, abnormal bleeding, and unusual bruising. 20:26 Abdomen/GI: Positive for abdominal pain, abdominal cramps, abdominal distension, of the right lower quadrant and left lower quadrant. 20:26 Back: Positive for decreased range of motion, pain at rest, flank pain, bilaterally. Exam: 20:26 Constitutional: This is a well developed, well nourished patient who is awake, alert, mack and in no acute distress. Head/Face: Normocephalic, atraumatic. Eyes: Pupils equal round and reactive to light, extra-ocular motions intact. Lids and lashes normal. Conjunctiva and sclera are non-icteric and not injected. Cornea within normal limits. Periorbital areas with no swelling, redness, or edema. ENT: Nares patent. No nasal discharge, no septal abnormalities noted. Tympanic membranes are normal and external auditory canals are clear. Oropharynx with no redness, swelling, or masses, exudates, or evidence of obstruction, uvula midline. Mucous membranes moist. Neck: Trachea midline, no thyromegaly or masses palpated, and no cervical lymphadenopathy. Supple, full range of motion without nuchal rigidity, or vertebral point tenderness. No Meningismus. Chest/axilla: Normal chest wall appearance and motion. Nontender with no deformity. No lesions are appreciated. Cardiovascular: Regular rate and rhythm with a normal S1 and S2. No gallops, murmurs, or rubs. Normal PMI, no JVD. No pulse deficits. Respiratory: Lungs have equal breath sounds bilaterally, clear to auscultation and percussion. No rales, rhonchi or wheezes noted. No increased work of breathing, no retractions or nasal flaring. Male : Normal genitalia with no discharge or lesions. Skin: Warm, dry with normal turgor. Normal color with no rashes, no lesions, and no evidence of cellulitis. MS/ Extremity: Pulses equal, no cyanosis. Neurovascular intact. Full, normal range of motion. Neuro: Awake and alert, GCS 15, oriented to person, place, time, and situation. Cranial nerves II-XII grossly intact. Motor strength 5/5 in all extremities. Sensory grossly intact. Cerebellar exam normal. Normal gait. Psych: Awake, alert, with orientation to person, place and time. Behavior, mood, and affect are within normal limits. 20:26 Abdomen/GI: Inspection: distension, Bowel sounds: normal, Palpation: moderate abdominal tenderness, in the right upper quadrant, left upper quadrant, right lower quadrant and left lower quadrant, Liver: no appreciated palpable abnormalities, Hernia: not appreciated. Vital Signs: 19:52 BP 142 / 68; Pulse 65; Resp 18; Temp 98.2; Pulse Ox 100% on R/A; Weight 97.52 kg; sg Height 5 ft. 9 in. (175.26 cm); Pain 6/10; 22:00 BP 154 / 81; Pulse 49; Resp 18; Pulse Ox 100% on R/A; wh 23:30 BP 128 / 57; Pulse 47; Resp 18; Pulse Ox 98% on R/A; wh 19:52 Body Mass Index 31.75 (97.52 kg, 175.26 cm) sg MDM: 19:54 Patient medically screened. [facility] 20:31 Data reviewed: vital signs, nurses notes, lab test result(s), radiologic studies, CT mack scan. 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 Pulse oximetry: on room air is 100 %. Counseling: I had a detailed discussion with the patient and/or guardian regarding: the historical points, exam findings, and any diagnostic results supporting the discharge/admit diagnosis, lab results, radiology results. 22:46 Differential diagnosis: strain, UTI. Test interpretation: by ED physician or midlevel mack provider: sid polanco. 23:24 Medication response: Zofran partially relieved the patient's nausea. ED course: pt mack explained all results, knows follow up is necessary, agrees and will do, will return if worse. 10/23 20:26 Order name: CBC with Diff; Complete Time: 22:21 [facility] 10/23 20:26 Order name: Comprehensive Metabolic Panel; Complete Time: 22:45 [facility] 10/23 20:26 Order name: Urine Culture [facility] 10/23 20:55 Order name: Urine Dipstick--Ancillary (enter results); Complete Time: 22:21 sg 10/23 22:21 Order name: Lipase [facility] 10/23 22:25 Order name: Lipase; Complete Time: 22:45 EDMS 10/23 22:35 Order name: Abdomen EDIN 10/23 20:26 Order name: Urine Dipstick-Ancillary (obtain specimen); Complete Time: 20:55 [facility] Administered Medications: 21:15 Drug: NS 0.9% 1000 ml Route: IV; Rate: 1 bolus; Site: right antecubital; 23:27 Follow up: Response: No adverse reaction; IV Status: Completed infusion 21:15 Drug: Zofran (Ondansetron) 4 mg Route: IVP; Site: right antecubital; 23:27 Follow up: Response: No adverse reaction; Nausea is decreased 21:15 Drug: morphine 2 mg Route: IVP; Site: right antecubital; 23:27 Follow up: Response: No adverse reaction; Pain is decreased; RASS: Alert and Calm (0) 22:15 Not Given (Patient Refused): morphine 4 mg IVP once; RASS on ADMIN: Combtv4, Very ah Agttd3, Agttd2, Rstlss1, AlertClm0, Drwsy-1, Lt Sdtn-2, Mod Sdtn-3, Dp Sdtn-4, UnArsble-5 22:16 CANCELLED (order error): morphine 2 mg IVP once; (PAIN>8) RASS on ADMN: Combtv4, Very ah Agttd3, Agttd2, Rstlss1, AlertClm0, Drwsy-1, LtSdtn-2, ModSdtn-3, DpSdtn-4, UnArsble-5 x2 Disposition: 10/24/19 23:22 Discharged to Home. Impression: Abdominal tenderness, Anxiety disorder, unspecified. - Condition is Stable. - Discharge Instructions: Abdominal Pain, Adult, Panic Attacks, Abdominal Pain, Adult, [id number]-[id number], Panic Attacks, Cahm-vm-Derx. - Prescriptions for Bentyl 20 mg Oral Tablet - take 1 tablet by ORAL route every 6 hours As needed; 20 tablet. Pepcid 20 mg Oral Tablet - take 1 tablet by ORAL route every 12 hours for 10 days; 20 tablet. Xanax 1 mg Oral Tablet - take 1 tablet by ORAL route every 8 hours As needed; 20 tablet. Zofran 4 mg Oral Tablet - take 1 tablet by ORAL route every 12 hours As needed; 20 tablet. Tylenol- Codeine #3 300-30 mg Oral Tablet - take 2 tablets by ORAL route every 6 hours As needed; 2 tablet. - Medication Reconciliation Form, Thank You Letter, Antibiotic Education, Prescription Opioid Use form. - Follow up: Private Physician; When: 2 - 3 days; Reason: Recheck today's complaints, Continuance of care, Re-evaluation by your physician. Follow up: Liz Bernardo MD; When: 2 - 3 days; Reason: Recheck today's complaints, Re-evaluation by your physician. Follow up: Nirmala Concepcion MD; When: 2 - 3 days; Reason: Recheck today's complaints, Re-evaluation by your physician. - Problem is new. - Symptoms have improved. Signatures: Dispatcher [employer] EDIN Abdias Hardy, RN RN Pal Ferreira MD MD cha Habalo, Winsy wh Harris, Amy, RN RN Corrections: (The following items were deleted from the chart) 22:16 22:15 morphine 2 mg IVP once; (PAIN>8) RASS on ADMN: Combtv4, Very Agttd3, Agttd2, ah Rstlss1, AlertClm0, Drwsy-1, LtSdtn-2, ModSdtn-3, DpSdtn-4, UnArsble-5 x2 ordered. 22:24 22:22 Lipase ordered. EDIN EDMS 22:35 20:27 Abdomen Pelvis W Con+CT.RAD.BRZ ordered. EDIN EDMS 23:23 23:22 10/24/2019 23:22 Discharged to Home. Impression: Abdominal tenderness. Condition mack is Stable. Forms are Medication Reconciliation Form, Thank You Letter, Antibiotic Education, Prescription Opioid Use. Follow up: Private Physician; When: 2 - 3 days; Reason: Recheck today's complaints, Continuance of care, Re-evaluation by your physician. Follow up: Liz Bernardo; When: 2 - 3 days; Reason: Recheck today's complaints, Re-evaluation by your physician. Follow up: Nirmala Concepcion; When: 2 - 3 days; Reason: Recheck today's complaints, Re-evaluation by your physician. Problem is new. Symptoms have improved. [facility] 23:47 23:23 10/24/2019 23:22 Discharged to Home. Impression: Abdominal tenderness; Anxiety wh disorder, unspecified. Condition is Stable. Discharge Instructions: Abdominal Pain, Adult, Abdominal Pain, Adult, Cajb-ez-Ulzy. Prescriptions for Bentyl 20 mg Oral Tablet - take 1 tablet by ORAL route every 6 hours As needed; 20 tablet, Pepcid 20 mg Oral Tablet - take 1 tablet by ORAL route every 12 hours for 10 days; 20 tablet, Xanax 1 mg Oral Tablet - take 1 tablet by ORAL route every 8 hours As needed; 20 tablet, Zofran 4 mg Oral Tablet - take 1 tablet by ORAL route every 12 hours As needed; 20 tablet. and Forms are Medication Reconciliation Form, Thank You Letter, Antibiotic Education, Prescription Opioid Use. Follow up: Private Physician; When: 2 - 3 days; Reason: Recheck today's complaints, Continuance of care, Re-evaluation by your physician. Follow up: Liz Bernardo; When: 2 - 3 days; Reason: Recheck today's complaints, Re-evaluation by your physician. Follow up: Nirmala Concepcion; When: 2 - 3 days; Reason: Recheck today's complaints, Re-evaluation by your physician. Problem is new. Symptoms have improved. [facility]
--- NOTE | 2019-10-24 23:24 | ER ---
Nurse's Notes [facility] Name: Alfredo Escobar Age: 59 yrs Sex: Male : 1960 Arrival Date: 10/24/2019 Time: 19:47 Bed 19 Private MD: Diagnosis: Abdominal tenderness;Anxiety disorder, unspecified Presentation: 10/23 19:49 Acuity: BUCKY 3 sg 19:52 Chief complaint: Patient states: Low back pain, denies trauma or injury, no urinary sg symptoms reported at this time. Coronavirus screen: Proceed with normal triage. Ebola Screen: Patient negative for fever greater than or equal to 101.5 degrees Fahrenheit, and additional compatible Ebola Virus Disease symptoms Patient denies exposure to infectious person. Patient denies travel to an Ebola-affected area in the 21 days before illness onset. No symptoms or risks identified at this time. Initial Sepsis Screen: Does the patient meet any 2 criteria? No. Patient's initial sepsis screen is negative. Does the patient have a suspected source of infection? No. Patient's initial sepsis screen is negative. Risk Assessment: Do you want to hurt yourself or someone else? Patient reports no desire to harm self or others. Onset of symptoms was October 24, 2019. Care prior to arrival: None. Transition of care: patient was not received from another setting of care. 19:52 Method Of Arrival: Ambulatory sg Historical: - Allergies: 19:49 Bactrim; sg 19:49 Iodinated Contrast Media - IV Dye; sg 19:49 Iodine; sg 19:49 Keflex; sg 19:49 Latex, Natural Rubber; sg 19:49 Levaquin; sg 19:49 promethazine HCl; sg 19:49 Toradol; sg - PMHx: 19:49 Anxiety; Arthritis; Crohn's; GERD; HIV; Pancreatitis; PTSD; sg - PSHx: 19:49 hiatal hernia repair; sg - Immunization history:: Adult Immunizations up to date. - Social history:: Smoking status: Patient denies any tobacco usage or history of. - Family history:: not pertinent. Screenin:36 Abuse screen: Denies threats or abuse. Nutritional screening: No deficits noted. Tuberculosis screening: No symptoms or risk factors identified. Fall Risk None identified. Assessment: 20:10 General: Appears uncomfortable, Behavior is cooperative, appropriate for age. Pain: Complains of pain in suprapubic area Pain currently is 8 out of 10 on a pain scale. Quality of pain is described as throbbing. Neuro: Level of Consciousness is awake, alert, Oriented to person, place, time, situation. Cardiovascular: Heart tones S1 S2. Respiratory: Airway is patent Respiratory effort is even, unlabored, Respiratory pattern is regular, symmetrical. GI: Bowel sounds present X 4 quads. GI: Abdomen is tender to palpation in suprapubic area Reports. : Urine is clear, Reports urinary frequency, voiding large amounts of urine Denies burning with urination. EENT: No signs and/or symptoms were reported regarding the EENT system. Derm: No signs and/or symptoms reported regarding the dermatologic system. Musculoskeletal: No signs and/or symptoms reported regarding the musculoskeletal system. 22:15 Reassessment: Patient appears in no apparent distress at this time. Patient and/or family updated on plan of care and expected duration. Pain level reassessed. Patient is alert, oriented x 3, equal unlabored respirations, skin warm/dry/pink. 23:41 Reassessment: Patient appears in no apparent distress at this time. No changes from previously documented assessment. Patient and/or family updated on plan of care and expected duration. Pain level reassessed. Patient is alert, oriented x 3, equal unlabored respirations, skin warm/dry/pink. MD at bedside explaining POC. Vital Signs: 19:52 BP 142 / 68; Pulse 65; Resp 18; Temp 98.2; Pulse Ox 100% on R/A; Weight 97.52 kg; Height 5 ft. 9 in. (175.26 cm); Pain 6/10; 22:00 BP 154 / 81; Pulse 49; Resp 18; Pulse Ox 100% on R/A; wh 23:30 BP 128 / 57; Pulse 47; Resp 18; Pulse Ox 98% on R/A; wh 19:52 Body Mass Index 31.75 (97.52 kg, 175.26 cm) ED Course: 19:47 Patient arrived in ED. cl3 19:49 Triage completed. 19:49 Arm band placed on. 19:54 Pal Ferreira MD is Attending Physician. [facility] 20:51 Rasheeda Gleason, RN is Primary Nurse. 21:37 Patient has correct armband on for positive identification. Bed in low position. Call light in reach. Side rails up X2. 22:18 Primary Nurse role handed off by Rasheeda Gleason, RN 22:18 Abdias Hardy, MARY is Primary Nurse. 22:58 Abdomen In Process Unspecified. EDMS 23:21 Liz Bernardo MD is Referral Physician. [facility] 23:22 Nirmala Concepcion MD is Referral Physician. [facility] 23:42 No provider procedures requiring assistance completed. IV discontinued, intact, bleeding controlled, No redness/swelling at site. Administered Medications: 21:15 Drug: NS 0.9% 1000 ml Route: IV; Rate: 1 bolus; Site: right antecubital; 23:27 Follow up: Response: No adverse reaction; IV Status: Completed infusion 21:15 Drug: Zofran (Ondansetron) 4 mg Route: IVP; Site: right antecubital; 23:27 Follow up: Response: No adverse reaction; Nausea is decreased 21:15 Drug: morphine 2 mg Route: IVP; Site: right antecubital; 23:27 Follow up: Response: No adverse reaction; Pain is decreased; RASS: Alert and Calm (0) 22:15 Not Given (Patient Refused): morphine 4 mg IVP once; RASS on ADMIN: Combtv4, Very ah Agttd3, Agttd2, Rstlss1, AlertClm0, Drwsy-1, Lt Sdtn-2, Mod Sdtn-3, Dp Sdtn-4, UnArsble-5 22:16 CANCELLED (order error): morphine 2 mg IVP once; (PAIN>8) RASS on ADMN: Combtv4, Very ah Agttd3, Agttd2, Rstlss1, AlertClm0, Drwsy-1, LtSdtn-2, ModSdtn-3, DpSdtn-4, UnArsble-5 x2 Outcome: 23:22 Discharge ordered by . [facility] 23:43 Discharged to home ambulatory, with family. 23:43 Condition: stable 23:43 Discharge instructions given to patient, Instructed on discharge instructions, follow up and referral plans. no drinking with medication, no driving heavy equipment, medication usage, POC Demonstrated understanding of instructions, follow-up care, medications, POC Prescriptions given X x5 23:47 Patient left the ED. Signatures: Dispatcher [employer] EDAbdias Raya RN RN Pal Ferreira MD MD cha Habalo, Winsy Rasheeda Gamez cl3 Rasheeda Gleason RN RN Corrections: (The following items were deleted from the chart) 21:13 19:52 BP 142 / 68; Pulse 80bpm; Resp 18bpm; Pulse Ox 100% RA; Temp 98.2F; 97.52 kg; sg Height 5 ft. 9 in.; BMI: 31.7; Pain 6/10; sg 22:14 21:15 morphine 4 mg IVP in right antecubital [facility]
[2019-10-24 23:52] VITALS: TEMP 98.2
[2019-10-24 23:55] VITALS: BP 128/57; O2SAT 98
--- NOTE | 2019-10-26 00:26 | RAD REPORT ---
EXAM DESCRIPTION: CT - Abdomen Pelvis Wo Contrast - 10/25/2019 5:30 am CLINICAL HISTORY: 59 years Male ABD PAIN COMPARISON: None TECHNIQUE: Images were obtained in axial, sagittal, and coronal planes. No intravenous contrast was administered. Oral contrast was administered. This exam was performed according to our departmental dose-optimization program which includes use of Automated Exposure Control, adjustment of the mA and/or kV according to patient size and/or use o f iterative reconstruction technique. FINDINGS: Calcified granuloma involving the liver and spleen. Unremarkable pancreas, gallbladder, an d adrenal glands bilaterally. No obstructing renal calcifications bilaterally. No hydronephrosis bilaterally. Unremarkable bladder. Left renal cyst. Appendix within normal limits. No bowel obstruction, perforation, or inflammation. Moderate diverticu losis left colon. No dilatation abdominal aorta. No adenopathy or abnormal fluid collections seen. No acute osseous abnormality. No abnormality lower lungs bilaterally. IMPRESSION: No acute intra-abdominal abnormality. Electronically signed by: Celia Ross MD 10/24/2019 11:08 PM CDT Due to temporary technical issues with the PACS/Fluency reporting system, reports are being signed by the in house radiologist as a courtesy to ensure prompt reporting. The interpreting radiologist is f ovidioly responsible for the content of the report.
== END 2019-10-24 23:47 | disposition home or self-care (01) ==
LOC: ER 19:46
DX: R10.819 Abdominal tenderness, unspecified site (principal); F41.9 Anxiety disorder, unspecified; Z88.1 Allergy status to other antibiotic agents; Z91.040 Latex allergy status
CPT/HCPCS: 96361; 87088; 85025; 36415; 81003; 83690; 80053; 74176; 96375; 96374; 99283; J7030; J2405; 87086

== ENCOUNTER 2019-11-23 01:40 | Emergency (ER) | payer OTHER ==
[2019-11-23 02:11] LABS: Absolute Lymphocytes (CBC) 2.9 K/uL (0.7-4.9); Basophils % 0.5 % (0-1.3); Hematocrit 44.5 % (39.6-49.0); Lymphocytes % 38.2 % (15.3-44.8); MPV 8.5 fL (7.6-11.3); RBC Red Blood Cell Count 4.94 M/uL (4.33-5.43)
[2019-11-23 02:28] LABS: Albumin 3.8 g/dL (3.4-5.0); Bilirubin Direct 0.1 mg/dL (0-0.2); Bilirubin Total 0.4 mg/dL (0.2-1.0); Potassium 4.1 mmol/L (3.5-5.1); Protein, Total 7.4 g/dL (6.4-8.2)
--- NOTE | 2019-11-23 03:32 | EDPHYS ---
Physician Documentation [facility] Name: Alfredo Escobar Age: 59 yrs Sex: Male : 1960 Arrival Date: 11/23/2019 Time: 01:45 Bed 6 Private MD: ED Physician Rajan Adame HPI: 11/22 02:05 This 59 yrs old Male presents to ER via Ambulatory with complaints of Nausea, tw4 Blood Pressure Problem. 02:05 The patient presents to the emergency department with nausea, vomiting. tw4 02:16 Onset: The symptoms/episode began/occurred just prior to arrival. Possible causes: tw4 flare up of bowel problem, Crohn's disease. The symptoms are aggravated by nothing. The symptoms are alleviated by nothing. Associated signs and symptoms: The patient has no apparent associated signs or symptoms. Severity of symptoms: At their worst the symptoms were moderate in the emergency department the symptoms are unchanged. The patient has not experienced similar symptoms in the past. Historical: - Allergies: 01:48 Bactrim; sg 01:48 Iodinated Contrast Media - IV Dye; sg 01:48 Iodine; sg 01:48 Keflex; sg 01:48 Latex, Natural Rubber; sg 01:48 Levaquin; sg 01:48 promethazine HCl; sg 01:48 Toradol; sg - Home Meds: 01:48 pantoprazole 40 mg Oral TbEC once daily [Active]; sg - PMHx: 01:48 Anxiety; Arthritis; Crohn's; GERD; HIV; Pancreatitis; PTSD; sg - PSHx: 01:48 hiatal hernia repair; sg - Immunization history:: Adult Immunizations up to date. - Social history:: Smoking status: Patient denies any tobacco usage or history of. ROS: 02:16 Constitutional: Negative for fever, chills, and weight loss, Eyes: Negative for injury, tw4 pain, redness, and discharge, Cardiovascular: Negative for chest pain, palpitations, and edema, Respiratory: Negative for shortness of breath, cough, wheezing, and pleuritic chest pain, Back: Negative for injury and pain, MS/Extremity: Negative for injury and deformity, Skin: Negative for injury, rash, and discoloration, Neuro: Negative for headache, weakness, numbness, tingling, and seizure. 02:16 Abdomen/GI: Positive for nausea and vomiting, nausea, vomiting, and diarrhea, nausea, vomiting, abdominal cramps. Exam: 02:16 Constitutional: This is a well developed, well nourished patient who is awake, alert, tw4 and in no acute distress. Head/Face: Normocephalic, atraumatic. Chest/axilla: Normal chest wall appearance and motion. Nontender with no deformity. No lesions are appreciated. Cardiovascular: Regular rate and rhythm with a normal S1 and S2. No gallops, murmurs, or rubs. Normal PMI, no JVD. No pulse deficits. Respiratory: Lungs have equal breath sounds bilaterally, clear to auscultation and percussion. No rales, rhonchi or wheezes noted. No increased work of breathing, no retractions or nasal flaring. Back: No spinal tenderness. No costovertebral tenderness. Full range of motion. MS/ Extremity: Pulses equal, no cyanosis. Neurovascular intact. Full, normal range of motion. Neuro: Awake and alert, GCS 15, oriented to person, place, time, and situation. Cranial nerves II-XII grossly intact. Motor strength 5/5 in all extremities. Sensory grossly intact. Cerebellar exam normal. Normal gait. Psych: Awake, alert, with orientation to person, place and time. Behavior, mood, and affect are within normal limits. 02:16 Abdomen/GI: Inspection: abdomen appears normal, Bowel sounds: normal, Palpation: mild abdominal tenderness, in the epigastric area. Vital Signs: 01:54 BP 139 / 83; Pulse 62; Resp 16; Temp 98.2; Pulse Ox 99% on R/A; Weight 77.11 kg; rv 02:35 BP 121 / 79; Pulse 65; Resp 17; Pulse Ox 99% on R/A; rr5 03:16 BP 129 / 77; Pulse 69; Resp 16; Pulse Ox 99% ; rr5 MDM: 01:50 Patient medically screened. tw4 03:29 Differential diagnosis: Nonspecific abd pain, gastritis. Data reviewed: vital signs, tw4 nurses notes. Data reviewed: lab test result(s), CBC, electrolytes. Data interpreted: Pulse oximetry: Interpretation: normal. Counseling: I had a detailed discussion with the patient and/or guardian regarding: the historical points, exam findings, and any diagnostic results supporting the discharge/admit diagnosis. Medication response: Zofran relieved the patient's nausea. Response to treatment: the patient's symptoms have markedly improved after treatment, and as a result, I will discharge patient. Special discussion: I discussed with the patient/guardian in detail that at this point there is no indication for admission to the hospital. It is understood, however, that if the symptoms persist or worsen the patient needs to return immediately for re-evaluation. 11/22 02:00 Order name: Basic Metabolic Panel rr5 11/22 02:00 Order name: CBC with Diff rr5 11/22 02:00 Order name: Hepatic Function; Complete Time: 03:10 rr5 11/22 02:00 Order name: Lipase; Complete Time: 03:10 rr5 11/22 02:01 Order name: Basic Metabolic Panel; Complete Time: 03:10 EDMS 11/22 02:01 Order name: CBC with Automated Diff; Complete Time: 03:10 EDIL 11/22 02:00 Order name: IV Saline Lock; Complete Time: 02:00 rr5 11/22 02:00 Order name: Labs collected and sent; Complete Time: 02:00 rr5 11/22 03:10 Order name: PO challenge; Complete Time: 03:15 tw4 Administered Medications: 03:45 Drug: Zofran (Ondansetron) 4 mg Route: IVP; Site: right antecubital; rv 03:54 Follow up: Response: Medication administered at discharge. rv 03:53 Drug: GI Cocktail without - (Maalox Suspension 30 ml, Lidocaine Liquid 2 % 15 rr5 ml) Route: PO; 03:54 Follow up: Response: Medication administered at discharge. rv Disposition: 11/23/19 03:32 Discharged to Home. Impression: Nausea with vomiting, unspecified. - Condition is Stable. - Discharge Instructions: Nausea and Vomiting, Adult, Nausea, Adult. - Prescriptions for Zofran 4 mg Oral Tablet - take 1 tablet by ORAL route every 12 hours As needed; 6 tablet. - Medication Reconciliation Form, Thank You Letter, Antibiotic Education, Prescription Opioid Use form. - Follow up: Private Physician; When: Upon discharge from the Emergency Department; Reason: Recheck today's complaints, Continuance of care, Re-evaluation by your physician. - Problem is new. - Symptoms have improved. Signatures: Dispatcher [employer] EDAbdias Raya, RN RN sg Rajan Adame MD MD tw4 Nelson Emerson RN RN rv Grover De La Rosa RN RN rr5 Corrections: (The following items were deleted from the chart) 03:55 03:32 11/23/2019 03:32 Discharged to Home. Impression: Nausea with vomiting, rv unspecified. Condition is Stable. Forms are Medication Reconciliation Form, Thank You Letter, Antibiotic Education, Prescription Opioid Use. Follow up: Private Physician; When: Upon discharge from the Emergency Department; Reason: Recheck today's complaints, Continuance of care, Re-evaluation by your physician. Problem is new. Symptoms have improved. tw4
--- NOTE | 2019-11-23 03:32 | ER ---
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 NO VOMITING. Coronavirus screen: Ebola Screen: No symptoms or risks identified at this time. Initial Sepsis Screen: Does the patient meet any 2 criteria? No. Patient's initial sepsis screen is negative. Does the patient have a suspected source of infection? No. Patient's initial sepsis screen is negative. Risk Assessment: Do you want to hurt yourself or someone else? Patient reports no desire to harm self or others. Onset of symptoms was November 23, 2019 at 01:30. 01:54 Method Of Arrival: Ambulatory rv 01:54 Acuity: BUCKY 3 rv Historical: - Allergies: 01:48 Bactrim; sg 01:48 Iodinated Contrast Media - IV Dye; sg 01:48 Iodine; sg 01:48 Keflex; sg 01:48 Latex, Natural Rubber; sg 01:48 Levaquin; sg 01:48 promethazine HCl; sg 01:48 Toradol; sg - Home Meds: 01:48 pantoprazole 40 mg Oral TbEC once daily [Active]; sg - PMHx: 01:48 Anxiety; Arthritis; Crohn's; GERD; HIV; Pancreatitis; PTSD; sg - PSHx: 01:48 hiatal hernia repair; sg - Immunization history:: Adult Immunizations up to date. - Social history:: Smoking status: Patient denies any tobacco usage or history of. Screenin:30 Abuse screen: Denies threats or abuse. Denies injuries from another. Nutritional rr5 screening: No deficits noted. Tuberculosis screening: No symptoms or risk factors identified. Fall Risk IV access (20 points). Total Preciado Fall Scale indicates No Risk (0-24 pts). Assessment: 02:00 General: Appears in no apparent distress. uncomfortable, Behavior is calm, cooperative, rr5 appropriate for age. 02:00 Pain: Denies pain. Neuro: Level of Consciousness is awake, alert, obeys commands, rr5 Oriented to person, place, time, situation, Appropriate for age. Cardiovascular: Reports high BP Capillary refill < 3 seconds Patient's skin is warm and dry. Respiratory: Airway is patent Respiratory effort is even, unlabored, Respiratory pattern is regular, symmetrical. GI: Abdomen is round non-distended, Reports nausea, vomiting. : No signs and/or symptoms were reported regarding the genitourinary system. EENT: No signs and/or symptoms were reported regarding the EENT system. Derm: Skin is intact, is healthy with good turgor, Skin temperature is warm. Musculoskeletal: Circulation, motion, and sensation intact. Capillary refill < 3 seconds. 02:30 Reassessment: Patient appears in no apparent distress at this time. Patient is alert, rr5 oriented x 3, equal unlabored respirations, skin warm/dry/pink. Patient states feeling better. Patient states symptoms have improved. 02:55 Reassessment: Patient appears in no apparent distress at this time. Patient is alert, rr5 oriented x 3, equal unlabored respirations, skin warm/dry/pink. no complaints made. awaiting for result. 03:15 Reassessment: Patient appears in no apparent distress at this time. Patient is alert, rr5 oriented x 3, equal unlabored respirations, skin warm/dry/pink. no vomiting after PO challenge Patient states symptoms have improved. 03:55 Reassessment: Patient appears in no apparent distress at this time. Patient is alert, rr5 oriented x 3, equal unlabored respirations, skin warm/dry/pink. discharge instruction given and explained without complaints made. Vital Signs: 01:54 BP 139 / 83; Pulse 62; Resp 16; Temp 98.2; Pulse Ox 99% on R/A; Weight 77.11 kg; rv 02:35 BP 121 / 79; Pulse 65; Resp 17; Pulse Ox 99% on R/A; rr5 03:16 BP 129 / 77; Pulse 69; Resp 16; Pulse Ox 99% ; rr5 ED Course: 01:45 Patient arrived in ED. es 01:46 Nelson Emerson, MARY is Primary Nurse. rv 01:47 Arm band placed on. sg 01:50 Rajan Adame MD is Attending Physician. tw4 01:57 Triage completed. rv 02:00 Patient has correct armband on for positive identification. Bed in low position. Call rr5 light in reach. Pulse ox on. NIBP on. 02:00 Inserted saline lock: 20 gauge in right antecubital area, using aseptic technique. rr5 Blood collected. 03:54 No provider procedures requiring assistance completed. IV discontinued, intact, rv bleeding controlled, No redness/swelling at site. Pressure dressing applied. Administered Medications: 03:45 Drug: Zofran (Ondansetron) 4 mg Route: IVP; Site: right antecubital; rv 03:54 Follow up: Response: Medication administered at discharge. rv 03:53 Drug: GI Cocktail without - (Maalox Suspension 30 ml, Lidocaine Liquid 2 % 15 rr5 ml) Route: PO; 03:54 Follow up: Response: Medication administered at discharge. rv Outcome: 03:32 Discharge ordered by MD. [email or web address] 03:54 Discharged to home ambulatory. rv 03:54 Discharged to 03:54 Condition: good 03:54 Discharge instructions given to patient, Instructed on discharge instructions, follow up and referral plans. medication usage, Demonstrated understanding of instructions, follow-up care, medications, Prescriptions given X 1. 03:55 Patient left the ED. rv Signatures: Abdias Hardy, RN RN Merle Michel Terrence, MD MD tw4 Nelson Emerson RN RN rv Grover De La Rosa RN RN rr5
[2019-11-23] MEDS ORDERED: ONDANSETRON 4 MG/2 ML VIAL ONE (03:48)
[2019-11-23] MEDS ORDERED: MAGNE/ALUM HYDROXD 30 ML UCUP ONE (04:00)
[2019-11-23] MEDS ORDERED: LIDOCAINE VISCOUS 2% SOLN 15 ML UDC ONE (04:00)
[2019-11-23 04:11] VITALS: TEMP 98.2; O2SAT 99
[2019-11-23 04:14] VITALS: BP 129/77
--- OUTSIDE RECORDS SUMMARY | 2019-11-23 13:41 | XMS REPORT | Continuity of Care Document ---
:1960 Author Organization [employer] Care Team Providers Name Role Phone [employer] Unavailable Un available Problems Problem Status Onset [...] Hydrocodone Refill(s) Bitartrate 10 MG Oral Tablet [[place] 10/325] Clonazepam 2 MG 2 mg = [...] Comments Source Systolic (mm Hg) 143 03/28/2019 [facility] [place] [facility] Diastolic (mm Hg) 82 03/28/2019 [facility] [place] u[facility] Heart Rate 53 03/28/2019 [facility] Respitory Rate 16 03/28/2019 [facility] Height 172.72 cm 03/28/2019 [facility] Weight 89.091 03/28/2019 [facility] BMI Calculated 29.86 03/28/2019 [facility] BMI Calculated 30.47 09/26/2018 [facility] Weight 90.909 09/26/2018 [facility] Neuro Height 172.72 cm 09/26/2018 [facility] Neuro Heart Rate 58 09/26/2018 [facility] Respitory Rate 16 09/26/2018 [facility] Neuro Systolic (mm Hg) 159 09/26/2018 [facility] ro Diastolic (mm Hg) 88 09/26/2018 [facility] u[facility] Encounters Location Location Encounter Encounter Reason Attending ADM TX Stat us Source Details Type Number For Provider Date Date Visit [facility]NA Outpatient [id number] [place] 09/26 09/27 [facility] Neurology [facility] [place] Outpatient [id number] P[place] 10/31 Active [facility] [place] [facility] Ambulatory [id number] [place] 10/31 10/31 [facility] Neurology Pre-Reg [facility] [place] Outpatient [id number] [place] 03/28 [facility] [place] M[facility] Outpatient [id number] [place] 03/28 03/29 [facility] Neurology [facility] [place] MNA Outside [id number] 04/01 04/03 [facility] Neurology Medical /2018 Neuro [place] Records Outpatient [id number] [place] 04/11 Active [facility] [place] [facility] Ambulatory [id number] [place] 04/11 04/11 [facility] Neurology Pre-Reg [facility] [place] MNA Outside [id number] 04/18 04/20 [facility] Neurology Medical [facility] [place] Records Procedures No Data Provided for This Section Assessment and Plan No Data Provided for This Section Plan of Care No Data Provided for This Section Social History Social History Date Source Social History TypeResponse 03/28/2019 [facility] Neur o Smoking Status Former smoker; Type: Cigarettes; Exposur e to Tobacco Smoke None; Cigarette Smoking Last 365 Days No; Reg Smoking Cessation Counseling No entered on: 03/28/19 Family History No Data Provided for This Section Advance Directives No Data Provided for This Section Functional Status No Data Provided for This Section
--- OUTSIDE RECORDS SUMMARY | 2019-11-23 13:41 | XMS REPORT | Continuity of Care Document ---
:1960 Author Organization [facility] t Address [address] [place] [address] Care Team Providers Name Role Phone Theo [...] - initial initial Memoria encounter encounter l Outpati ent Clinics Arthropath Arthropath Problem Active [facility] psoriasis [facility]iza [facility] Acute Acute Problem [facility] cataplexy cataplexy Lucio ra[facility] Disc Disc Problem Active [facility] Other Other Problem Active [facility] chronic chronic [facility] - pancreatit pancreatit Me moria is is l [facility] Gastro-eso Gastro-eso Problem Active C [...] Martha kes - adult adult [facility]oria l [facility] Nausea Nausea Problem [facility] Wheezing Wheezing Problem [facility] Panic Panic Problem Active [facility] disorder disorder [facility] - with with Memoria agoraphobi agoraphobi l a a [facility] Hospital Hospital Problem Active [facility] - follow-up follow-up Lucio raiza l [facility] BPH loc BPH loc Problem Active [facility] w/o ur w/o ur [facility] - obs/LUTS obs/LUTS Memori a l [facility] Hypertensi Problem Active 2019-04-22 M emoria ve 01:06:38 l disorder, [place] systemic Hypertensi arterial ve (disorder) disorder, systemic arterial (disorder) Active Problem 04/22/2019 [facility] Memory Problem Active 2019-04-22 Memor ia impairment 01:06:38 l (finding) Memory Maggy nn impairment (finding) Active Problem 04/22/2019 [facility] Neck pain Problem Active 2019-04-22 Me moria (finding) 01:06:38 l Neck Evan pain (finding) Active Problem 04/22/2019 [facility] Paresthesi Problem Active 2019-04-22 M emoria a 01:06:38 l (finding) Evan Paresthesi a (finding) Active Problem 04/22/2019 [facility] Simple Problem Active 2019-04-22 Memor ia obesity 01:06:38 l (disorder) Simple Herm jessa obesity (disorder) Active Problem 04/22/2019 [facility] Tremor Problem Active 2019-04-22 Memor ia (finding) 01:06:38 l Tremor [place] (finding) Active Problem 04/22/2019 [facility] Dizziness Problem Active 2019-04-22 Me moria (finding) 01:06:38 l [place] Dizziness (finding) Active Problem 04/22/2019 [facility] Allergies, Adverse Reactions, Alerts Allergy Allergy Status Severity Reaction(s) Onset Inactive Treating Comm ents Source Name Type Date Date Clinician Keflex Adverse Active rash [facility] Phenerga Adverse Active hives [facility] n Reaction [facility] Bactrim Adverse Active rash [facility] DS Reaction [facility] Levaquin Adverse Active stops [facility] Reaction breathing [facility] Levaquin Levaquin Active Memori a roberto Gordon Social History Smoking Status Start Date Stop Date Source Social History 2019-03-28 18:18:16 2019-03-28 18:18:16 [facility] Medications Ordered Filled Start Stop Current Ordering Indication Dosage Frequency Signature Comments Components Source Medication Medication Date Date Medication? Clinician (SIG) Name Name valsartan 2018-06 Yes 0 Memoria 40 mg oral 0-24 Refill(s) l tablet 19:12: Evan 00 pantoprazol 2019- Yes 40 mg = 1 M emoria e 40 mg 4-24 tab, PO, l oral 19:00: Daily, # Evan enteric 00 30 tab, 0 coated Refill(s) tablet carvedilol 2018- Yes 25 mg = 1 Me moria 25 mg oral 4-24 tab, PO, l tablet 19:00: BID, # 180 Maggy nn 00 tab, 0 Refill(s) Acetaminoph 2018- Yes 1 tab, PO, Memoria en 325 MG / 4-24 QID, 0 l Hydrocodone 19:00: Refill(s) H ermann Bitartrate 00 10 MG Oral Tablet [[place] 10/325] Clonazepam Yes 2 mg = 1 Mem oria 2 MG Oral 4-24 tab, PO, l Tablet 19:00: BID, # 60 Jun n [Klonopin] 00 tab, 0 Refill(s) Aspirin 81 Aspirin 81 Yes Esthela [address] [facility] 4[facility]12 [place] [facility] - 00:00: Memoria 00 [facility] Albuterol Albuterol 2014-06 Yes Esthela [address] [facility] Sulfate HFA Sulfate HFA 1-25 [place] [facility] - 00:00: Memoria 00 [facility] ent Clinics Clonazepam Clonazepam Yes Esthela TAKE [address] [facility] [place] TABLET BY [facility] - MOUTH Memoria TWICE A l DAY [facility] Carvedilol Carvedilol Yes Esthela take [address] [facility] [place] tablet by [facility] - mouth Memoria twice a l day [facility] Famotidine Famotidine Yes Esthela [address] [facility] [place] at bedtime [facility] Protonix Protonix Yes Esthela [address] [place] [facility] Dicyclomine Dicyclomine Yes Esthela [address] [facility] [address] HCl HCl [place] [facility] [place] [facility] Ventolin Ventolin Yes Esthela [address] [address] HFA HFA [place] [facility] Valsartan Valsartan Yes Esthela [address] [facility] [place] [facility] ent Clinics Hydrocodone Hydrocodone Yes Esthela (Schedule [facility] -Acetaminop -Acetaminop [place] II Drug) [facility] - hen hen TK 1 T PO Memoria TID l [facility] Creon [place] 2019- No Esthela take by [facility] 07[facility]21 [place] mouth 1 [facility] - 00:00 capsule 3 Memoria :00 times a l day as Outpati directed ent Clinics Vital Signs Vital Name Observation Time Observation Value Comments Source Systolic (mm Hg) 2019-03-28 18:17:00 Lucio rial Evan Diastolic (mm Hg) 2019-03-28 18:17:00 Mem orial [place] Heart Rate 2019-03-28 18:17:00 [facility] [place] Respitory Rate 2019-03-28 18:17:00 Memori al [place] Height 2019-03-28 18:17:00 172.72 cm [facility] Evan Weight 2019-03-28 18:17:00 [facility] BMI Calculated 2019-03-28 18:17:00 Memori al [place] BMI Calculated 2018-09-26 18:51:00 Memori al [place] Weight 2018-09-26 18:51:00 [facility] [place] Height 2018-09-26 18:51:00 172.72 cm Memorial [place] Heart Rate 2018-09-26 18:51:00 [facility] [place] Respitory Rate 2018-09-26 18:51:00 Memori al [place] Systolic (mm Hg) 2018-09-26 18:51:00 Lucio rial Evan Diastolic (mm Hg) 2018-09-26 18:51:00 Mem orial [place] Procedures This patient has no known procedures. Encounters Start End Encounter Admission Attending Care Care Encounter Source Date/Time Date/Time Type Type Clinicians Facility Department ID 2019-07-21 2019-07-21 Emergency [facility] [id number] 18:06:23 22:09:00 Camila Theo Layton [id number] [place] [id number] [place] [id number] 2019-07-15 2019-07-15 Outpatient Malena Preston [id number] [facility] 15:01:00 15:01:00 t Specialty/U Martha kes - Specialty rology Memori a /Urology Clinic l Clinic Outpati ent Clinics 2019-07-09 2019-07-09 Outpatient Malena Preston [id number] [facility] 16:46:00 16:46:00 t Specialty/U Martha kes - Specialty rology Memori a /Urology Clinic l Clinic Outpati ent Clinics 2019-07-08 2019-07-08 Outpatient Malena Guyt [id number] [facility] 14:51:00 14:51:00 t Specialty/U Martha kes - Specialty rology [facility] /Urology Clinic l Clinic Outpati ent Clinics 2019-07-08 2019-07-08 [facility] [id number] [address] 08:00:00 08:00:00 t Specialty/U Martha kes - Specialty rology Memori a /Urology Clinic l Clinic Outpati ent Clinics 2019-07-04 2019-07-04 [facility] [id number] [facility] 13:00:00 13:00:00 t Specialty/U Martha kes - Specialty rology [facility] a /Urology Clinic l Clinic Outpati ent Clinics 2019-07-02 2019-07-02 [facility] [id number] 14:32:00 14:32:00 t [facility] Medicine Outpati ent Clinics 2019-06-27 2019-06-27 [facility] [id number] [address] 14:40:00 14:40:00 t [facility] Medicine Outpati ent Clinics 2019-06-03 2019-06-03 [facility] [id number] 11:17:00 11:17:00 t [facility] Outpati ent Clinics 2019-04-18 2019-04-19 Outpatient MHMISCHER MHMISCHER [id number] 12:37:59 23:59:59 2019-04-11 2019-04-11 Outpatient AZAR ArmstrongSCHLATHA JENKINSMISCHER [id number] 15:30:00 15:30:00 Pio 03 Mau 2019-04-09 2019-04-09 [facility] [id number] 15:20:00 15:20:00 t [facility] Outpati ent Clinics 2019-04-01 2019-04-02 Outpatient MHMISCHER MHMISCHER [id number] 08:58:44 23:59:59 2019-03-28 2019-03-28 Outpatient AZAR ArmstrongSCHER MHMISCHER [id number] 13:00:00 23:59:59 [place] Mau 2019-02-19 2019-02-19 [facility] [id number] [facility] 14:40:00 14:40:00 [facility] Medicine l Medicine Outpati ent Clinics 2018-12-11 2018-12-11 [facility] [id number] 11:21:00 11:21:00 [facility] Medicine Outpati ent Clinics 2018-11-19 2018-11-19 [facility] [id number] [address] 14:40:00 14:40:00 [facility] Medicine Outpati ent Clinics 2018-10-31 2018-10-31 Outpatient AZAR ArmstrongSCHER MISCHER [id number] 13:45:00 13:45:00 [place] Mau 2018-09-26 2018-09-26 Outpatient AZAR ArmstrongSCHLATHA MISCHER [id number] 13:30:00 23:59:59 P[place] 00 Mau 2018-09-17 2018-09-17 [facility] [id number] [facility] 16:00:00 16:00:00 [facility] Medicine Outpati ent Clinics 2018-08-02 2018-08-02 [facility] [id number] 16:07:00 16:07:00 [place] [facility] l Medicine Outpati ent Clinics 2018-08-02 2018-08-02 [facility] [id number] 16:05:00 16:05:00 [place] [facility] Medicine Medicine Outpati ent Clinics 2018-06-18 2018-06-18 [facility] [id number] [address] 16:00:00 16:00:00 [facility] Medicine Medicine Outpati ent Clinics 2018-01-18 2018-01-18 [facility] [id number] 14:00:00 14:00:00 [facility] l Medicine Outpati ent Clinics 2017-09-19 2017-09-19 [facility] [id number] 09:33:00 09:33:00 [facility] 2017-09-14 2017-09-14 Outpatient [facility] Malenat [id number] 13:00:00 13:00:00 [facility] Outpati ent Clinics 2017-09-12 2017-09-12 Outpatient Malena Preston [id number] 11:05:00 11:05:00 [facility] 2017-08-29 2017-08-29 Outpatient Malena Preston [id number] 15:30:00 15:30:00 [facility] Results This patient has no known results.
== END 2019-11-23 03:55 | disposition home or self-care (01) ==
LOC: ER 01:40
DX: R11.2 Nausea with vomiting, unspecified (principal); Z21 Asymptomatic human immunodeficiency virus [HIV] infection status; Z88.1 Allergy status to other antibiotic agents; Z88.5 Allergy status to narcotic agent; Z88.8 Allergy status to other drugs, medicaments and biological substances; Z91.040 Latex allergy status; Z91.048 Other nonmedicinal substance allergy status
CPT/HCPCS: 85025; 80048; 36415; 80076; 83690; 96374; 99284; J2405

== ENCOUNTER 2019-12-10 20:08 | Observation (INO) | payer OTHER ==
[2019-12-10 22:51] LABS: Absolute Lymphocytes (CBC) 1.9 K/uL (0.7-4.9); Basophils % 0.3 % (0-1.3); Hematocrit 43.6 % (39.6-49.0); Lymphocytes % 19.1 % (15.3-44.8); MPV 8.8 fL (7.6-11.3); RBC Red Blood Cell Count 4.84 M/uL (4.33-5.43)
[2019-12-10 23:02] LABS: ALT/SGPT 21 U/L (12-78); AST/SGOT 15 U/L (15-37); Albumin 3.7 g/dL (3.4-5.0); Alkaline Phosphatase 46 U/L (45-117); BUN Blood Urea Nitrogen 8 mg/dL (7-18); Bicarbonate 31 mmol/L (21-32); Bilirubin Direct 0.2 mg/dL (0-0.2); Bilirubin Total 0.8 mg/dL (0.2-1.0); Glucose Level 93 mg/dL (74-106); Lipase 101 U/L (73-393); Protein, Total 6.7 g/dL (6.4-8.2); Sodium Level 140 mmol/L (136-145)
--- NOTE | 2019-12-11 00:47 | ER ---
Nurse's Notes [facility] Name: Alfredo Escobar Age: 59 yrs Sex: Male : 1960 Arrival Date: 12/10/2019 Time: 20:10 Bed 14 Private MD: Diagnosis: Gastrointestinal hemorrhage, unspecified;Left sided colitis Presentation: 12/09 20:42 Chief complaint: Patient states: Woke up at 0800 today with severe abdominal cramping, ca1 diarrhea in the afternoon with bloody stool. Reports nausea. Denies vomiting. Denies fever. Coronavirus screen: Proceed with normal triage. Patient denies a cough. Patient denies shortness of breath or difficulty breathing. Patient denies measured and/or subjective temperature greater than 100.4F prior to today's visit. Patient denies travel on a cruise ship or to a country the [facility] currently lists as an affected area. Patient denies contact with known and/or suspected case of COVID-19. Ebola Screen: Patient negative for fever greater than or equal to 101.5 degrees Fahrenheit, and additional compatible Ebola Virus Disease symptoms Patient denies exposure to infectious person. Patient denies travel to an Ebola-affected area in the 21 days before illness onset. No symptoms or risks identified at this time. Initial Sepsis Screen: Does the patient meet any 2 criteria? No. Patient's initial sepsis screen is negative. Does the patient have a suspected source of infection? No. Patient's initial sepsis screen is negative. Risk Assessment: Do you want to hurt yourself or someone else? Patient reports no desire to harm self or others. Onset of symptoms was December 10, 2019. 20:42 Method Of Arrival: Ambulatory ca1 20:42 Acuity: BUCKY 3 ca1 Triage Assessment: 21:24 General: Appears in no apparent distress. uncomfortable, unkempt, Behavior is ls4 cooperative, anxious. Pain: Denies pain. Neuro: No deficits noted. Cardiovascular: No deficits noted. Respiratory: No deficits noted. GI: Reports bloody stool. : No deficits noted. No signs and/or symptoms were reported regarding the genitourinary system. Derm: No deficits noted. No signs and/or symptoms reported regarding the dermatologic system. Musculoskeletal: No deficits noted. No signs and/or symptoms reported regarding the musculoskeletal system. Historical: - Allergies: 20:45 Bactrim; ca1 20:45 Iodinated Contrast Media - IV Dye; ca1 20:45 Iodine; ca1 20:45 Keflex; ca1 20:45 Latex, Natural Rubber; ca1 20:45 Levaquin; ca1 20:45 promethazine HCl; ca1 20:45 Toradol; ca1 - PMHx: 20:45 Anxiety; Arthritis; Crohn's; GERD; HIV; Pancreatitis; PTSD; ca1 - PSHx: 20:45 hiatal hernia repair; ca1 - Immunization history:: Adult Immunizations up to date. - Social history:: Smoking status: Patient denies any tobacco usage or history of. Screenin/08 00:35 Abuse screen: Denies threats or abuse. Denies injuries from another. Nutritional ls4 screening: No deficits noted. Tuberculosis screening: No symptoms or risk factors identified. Fall Risk None identified. Assessment: 12/09 22:30 Reassessment: Patient appears in no apparent distress at this time. Patient and/or ls4 family updated on plan of care and expected duration. Pain level reassessed. Patient is alert, oriented x 3, equal unlabored respirations, skin warm/dry/pink. 23:30 Reassessment: Patient appears in no apparent distress at this time. Patient and/or ls4 family updated on plan of care and expected duration. Pain level reassessed. Patient is alert, oriented x 3, equal unlabored respirations, skin warm/dry/pink. Vital Signs: 20:42 BP 113 / 87; Pulse 67; Resp 15 S; Temp 97.9(TE); Pulse Ox 97% on R/A; Weight 81.65 kg ca1 (R); Height 5 ft. 9 in. (175.26 cm) (R); 22:30 BP 124 / 61; Pulse 60; Resp 14; Pulse Ox 100% on R/A; Pain 0/10; ls4 23:30 BP 125 / 71; Pulse 57; Resp 18; Pulse Ox 99% on R/A; ls4 12/10 00:30 BP 124 / 63; Pulse 60; Resp 14; Pulse Ox 100% on R/A; Pain 0/10; ls4 12/09 20:42 Body Mass Index 26.58 (81.65 kg, 175.26 cm) ca1 ED Course: 12/09 20:10 Patient arrived in ED. ds1 20:44 Triage completed. ca1 20:45 Arm band placed on right wrist. ca1 21:31 Patient has correct armband on for positive identification. Bed in low position. Call ls4 light in reach. Side rails up X 1. sustainability purchasing agent on. Pulse ox on. NIBP on. 21:31 Warm blanket given. Verbal reassurance given. ls4 21:31 No provider procedures requiring assistance completed. Initial lab(s) drawn, by wy, ls4 sent to lab. Inserted saline lock: 18 gauge in right antecubital area, using aseptic technique. Blood collected. Patient maintains SpO2 saturation greater than 95% on room air. 21:32 Shahnaz Queen, RN is Primary Nurse. ls4 21:35 Dayron Martins PA is PHCP. jr8 21:35 Rajan Adame MD is Attending Physician. jr8 [id number] 00:14 Abdomen In Process Unspecified. EDMS 00:46 Colby Reyes is Hospitalizing Provider. jr8 Administered Medications: 01:10 Drug: SOLU-Medrol 125 mg Route: IVP; Site: right antecubital; ls4 01:12 Drug: Flagyl 500 mg Volume: 100 ml; Route: IVPB; Rate: 200 ml/hr; Infused Over: 30 ls4 mins; Site: right antecubital; 02:28 Drug: Zosyn 3.375 grams Route: IVPB; Infused Over: 60 mins; Site: right antecubital; ls4 Outcome: 00:46 Decision to Hospitalize by Provider. jr8 18:03 Patient left the ED. ph Signatures: Dispatcher [employer] EDMA HartmanCharmaine haque ds1 Dayron Martins PA PA jr8 Allyson Stearns, RN RN ph Shahnaz Queen, RN RN ls4 Chelo Nolasco RN RN ca1
--- NOTE | 2019-12-11 00:47 | EDPHYS ---
Physician Documentation [facility] Name: Alfredo Escobar Age: 59 yrs Sex: Male : 1960 Arrival Date: 12/10/2019 Time: 20:10 Bed 14 Private MD: ED Physician Rajan Adame HPI: 12/09 22:12 This 59 yrs old Male presents to ER via Ambulatory with complaints of Rectal jr8 Bleeding. 22:12 The patient presents to the emergency department with bleeding from the rectum/anus, jr8 that is moderate. Onset: The symptoms/episode began/occurred acutely, today. Context: the patient has no known special context relating to the rectal area complaint(s). Modifying factors: The symptoms are alleviated by nothing, The symptoms are aggravated by bowel movement. Associate signs and symptoms: Pertinent positives: abdominal pain in the right lower quadrant and left lower quadrant, lower GI bleeding, dark red. The patient has not experienced similar symptoms in the past. The patient has not recently seen a physician. Patient stated that he started with soft stool today. Later in the day had lower abdominal cramping followed by hematochezia. History of Crohn's in past but denies having lower GI bleeding before . Historical: - Allergies: 20:45 Bactrim; ca1 20:45 Iodinated Contrast Media - IV Dye; ca1 20:45 Iodine; ca1 20:45 Keflex; ca1 20:45 Latex, Natural Rubber; ca1 20:45 Levaquin; ca1 20:45 promethazine HCl; ca1 20:45 Toradol; ca1 - PMHx: 20:45 Anxiety; Arthritis; Crohn's; GERD; HIV; Pancreatitis; PTSD; ca1 - PSHx: 20:45 hiatal hernia repair; ca1 - Immunization history:: Adult Immunizations up to date. - Social history:: Smoking status: Patient denies any tobacco usage or history of. ROS: 22:12 Eyes: Negative for injury, pain, redness, and discharge, ENT: Negative for injury, jr8 pain, and discharge, Neck: Negative for injury, pain, and swelling, Cardiovascular: Negative for chest pain, palpitations, and edema, Respiratory: Negative for shortness of breath, cough, wheezing, and pleuritic chest pain, Back: Negative for injury and pain, MS/Extremity: Negative for injury and deformity, Skin: Negative for injury, rash, and discoloration, Neuro: Negative for headache, weakness, numbness, tingling, and seizure. 22:12 Abdomen/GI: Positive for abdominal pain, rectal bleeding, Negative for nausea, vomiting, and diarrhea. Exam: 22:12 Eyes: Pupils equal round and reactive to light, extra-ocular motions intact. Lids and jr8 lashes normal. Conjunctiva and sclera are non-icteric and not injected. Cornea within normal limits. Periorbital areas with no swelling, redness, or edema. ENT: Nares patent. No nasal discharge, no septal abnormalities noted. Tympanic membranes are normal and external auditory canals are clear. Oropharynx with no redness, swelling, or masses, exudates, or evidence of obstruction, uvula midline. Mucous membranes moist. Neck: Trachea midline, no thyromegaly or masses palpated, and no cervical lymphadenopathy. Supple, full range of motion without nuchal rigidity, or vertebral point tenderness. No Meningismus. Cardiovascular: Regular rate and rhythm with a normal S1 and S2. No gallops, murmurs, or rubs. Normal PMI, no JVD. No pulse deficits. Respiratory: Lungs have equal breath sounds bilaterally, clear to auscultation and percussion. No rales, rhonchi or wheezes noted. No increased work of breathing, no retractions or nasal flaring. Back: No spinal tenderness. No costovertebral tenderness. Full range of motion. Skin: Warm, dry with normal turgor. Normal color with no rashes, no lesions, and no evidence of cellulitis. MS/ Extremity: Pulses equal, no cyanosis. Neurovascular intact. Full, normal range of motion. Neuro: Awake and alert, GCS 15, oriented to person, place, time, and situation. Cranial nerves II-XII grossly intact. Motor strength 5/5 in all extremities. Sensory grossly intact. Cerebellar exam normal. Normal gait. 22:12 Abdomen/GI: Inspection: abdomen appears normal, Bowel sounds: active, all quadrants, Palpation: soft, in all quadrants, mild abdominal tenderness, in the right lower quadrant and left lower quadrant, mass, is not appreciated, rebound tenderness, is not appreciated, voluntary guarding, is not appreciated, involuntary guarding, is not appreciated, no appreciated organomegaly, Rectal exam: Prostate: enlarged, rectal tone normal, Stool: grossly bloody, hemorrhoid(s), are not appreciated, external, Indicators: McBurney's point is not tender, Lopes's sign is negative, Rovsing's sign is negative, Liver: tenderness, is not appreciated. Vital Signs: 20:42 BP 113 / 87; Pulse 67; Resp 15 S; Temp 97.9(TE); Pulse Ox 97% on R/A; Weight 81.65 kg ca1 (R); Height 5 ft. 9 in. (175.26 cm) (R); 22:30 BP 124 / 61; Pulse 60; Resp 14; Pulse Ox 100% on R/A; Pain 0/10; ls4 23:30 BP 125 / 71; Pulse 57; Resp 18; Pulse Ox 99% on R/A; ls4 12/10 00:30 BP 124 / 63; Pulse 60; Resp 14; Pulse Ox 100% on R/A; Pain 0/10; ls4 12/09 20:42 Body Mass Index 26.58 (81.65 kg, 175.26 cm) ca1 MDM: 12/09 21:36 Patient medically screened. 8 12/10 00:44 Data reviewed: vital signs, nurses notes, lab test result(s), radiologic studies, CT jr8 scan. Data interpreted: Pulse oximetry: on room air is 100 %. Interpretation: normal. Counseling: I had a detailed discussion with the patient and/or guardian regarding: the historical points, exam findings, and any diagnostic results supporting the discharge/admit diagnosis, lab results, radiology results, the need for further work-up and treatment in the hospital. Physician consultation: Colby Reyes was called at 00:45, was contacted at 00:45, regarding admission, to the medical/surgical unit. patient's condition, and will see patient. 12/09 21:36 Order name: Basic Metabolic Panel; Complete Time: 23:12/09 21:36 Order name: CBC with Diff; Complete Time: 22:59 8 12/09 21:36 Order name: Hepatic Function; Complete Time: 23:12/09 21:36 Order name: Lipase; Complete Time: 23:07 8 12/09 22:04 Order name: TS; Complete Time: 11:31 8 12/10 04:39 Order name: Hemoglobin; Complete Time: 06:46 EDMS 07/07 22:18 Order name: Abdomen ; Complete Time: 11:31 [facility] 12/10 04:39 Order name: Hematocrit; Complete Time: 46 [facility] 12/10 04:39 Order name: Protime (+INR); Complete Time: :46 [facility] 12/10 10:02 Order name: Hemoglobin; Complete Time: 11: [facility] 12/10 10:02 Order name: Hematocrit; Complete Time: : [facility] 12/09 21:36 Order name: IV Saline Lock; Complete Time: 23: [facility] 12/09 21:36 Order name: Labs collected and sent; Complete Time: : [facility] 12/10 01:40 Order name: CONS Physician Consult EDOK Administered Medications: 01:10 Drug: SOLU-Medrol 125 mg Route: IVP; Site: right antecubital; ls4 01:12 Drug: Flagyl 500 mg Volume: 100 ml; Route: IVPB; Rate: 200 ml/hr; Infused Over: 30 ls4 mins; Site: right antecubital; 02:28 Drug: Zosyn 3.375 grams Route: IVPB; Infused Over: 60 mins; Site: right antecubital; ls4 Disposition: 12/11/19 00:46 Hospitalization ordered by Colby Reyes for Inpatient Admission. Preliminary diagnosis are Gastrointestinal hemorrhage, unspecified, Left sided colitis. - Bed requested for [facility] ER HOLD. - Status is Inpatient Admission. ph - Condition is Stable. - Problem is new. - Symptoms are unchanged. Addendum: 12/16/2019 16:40 Co-signature as Attending Physician, Rajan Adame MD I agree with the assessment and t w4 plan of care. Signatures: Dispatcher [employer] [facility] Dayron Martins PA PA jr8 Channing Cosby, INSTRUMENT TECHNICIAN HELPER-C INSTRUMENT TECHNICIAN HELPER-Cla1 Ramila Gregory, RN RN tl1 Allyson Stearns RN RN Rajan Adame MD MD tw4 Shahnaz Queen RN RN ls4 Chelo Nolasco RN RN ca1 Corrections: (The following items were deleted from the chart) 12/09 22:18 22:06 Abdomen Pelvis W Con+CT.RAD.BRZ ordered. [facility] 12/10 02:00 00:46 Hospitalization Ordered by Colby Reyes for Inpatient Admission. Preliminary tl1 diagnosis is Gastrointestinal hemorrhage, unspecified; Left sided colitis. Bed requested for Telemetry/MedSurg (Inpatient). Status is Inpatient Admission. Condition is Stable. Problem is new. Symptoms are unchanged. jr8 18:03 02:00 12/11/2019 00:46 Hospitalization Ordered by Colby Reyes for Inpatient ph Admission. Preliminary diagnosis is Gastrointestinal hemorrhage, unspecified; Left sided colitis. Bed requested for [facility] ER HOLD. Status is Inpatient Admission. Condition is Stable. Problem is new. Symptoms are unchanged. tl1
--- NOTE | 2019-12-11 01:28 | P.HP ---
Certification for Inpatient Patient admitted to: Inpatient With expected LOS: >2 Midnights Practitioner: I am a practitioner with admitting privileges, knowledge of patient current condition, hospital course, and medical plan of care. Services: Services provided to patient in accordance with Admission requirements found in Title 42 Section 412.3 of the Code of Federal Regulations Patient History Date of Service: 12/11/19 Reason for admission: Abdominal pain and bloody stools History of Present Illness: 59-year-old gentleman with a history of Crohn's disease, chronic pancreatitis and psoriatic arthritis present to the ED with a complaint several months of abdominal cramps which became worse yesterday in the morning. He also started having bloody bowel movement, initially described as maroon soft stool, which progressed to bright red blood with diarrhea. Patient stated he has never seen any episode of gross bloody bowel movements slightly since his Crohn's diagnosis. Patient had a couple of bloody bowel movement in the ED. CT abdomen and pelvis shows diffuse thickening of the colon. He takes baby aspirin, does not take any anticoagulants. He is admitted for further management. Allergies cephalexin monohydrate [From Keflex] Allergy (Verified 09/07/11 22:18) SWELLING iodine Allergy (Unverified 10/24/15 04:47) Unknown ketorolac Allergy (Unverified 05/13/14 13:05) Unknown ketorolac tromethamine [From Toradol] Allergy (Verified 09/07/11 22:17) SWELLING levofloxacin [From Levaquin] Allergy (Verified 09/07/11 22:17) SWELLING promethazine HCl [From Phenergan] Allergy (Verified 09/07/11 22:18) SWELLING Sulfa (Sulfonamide Antibiotics) Allergy (Unverified 05/13/14 13:05) Unknown sulfamethoxazole [From Bactrim] Allergy (Verified 09/07/11 22:18) SWELING trimethoprim [From Bactrim] Allergy (Verified 09/07/11 22:18) SWELING vancomycin Allergy (Unverified 10/24/15 04:47) Unknown Latex, Natur Allergy (Uncoded 10/24/15 04:47) Unknown levofloxacin Allergy (Uncoded 05/13/14 13:05) Unknown Home Medications: Albuterol Sulfate [Ventolin Hfa] 2 puff IH TID PRN 05/11/18 Hydrocodone Bit/Acetaminophen [Hydrocodon-Acetaminoph 7.5-325] 1 tab PO QID PRN 05/11/18 Lipase/Protease/Amylase [Armin Carrion 12,000 Units Capsule] 24,000 units PO TIDWM 05/11/18 Pantoprazole [Protonix Tab*] 40 mg PO DAILY 05/11/18 carvediloL [Carvedilol] 25 mg PO BID 05/11/18 clonazePAM [Clonazepam] 1 mg PO BID 05/11/18 Ciprofloxacin HCl [Cipro 500 MG Tablet] 500 mg PO BID #42 tab 05/13/18 metroNIDAZOLE [Flagyl] 500 mg PO Q8H #63 tablet 05/13/18 predniSONE [Deltasone*] 10 mg PO SEECOM #70 tab 05/13/18 - Past Medical/Surgical History Diabetic: No -: GERD -: HTN -: chronic pancreatitis -: Crohn's -: PTSD -: Psoriatic Arthritis -: anxiety -: polyp removal -: hernia repair - Family History Family History: Reviewed- Non-Contributory - Social History Alcohol use: No CD- Drugs: Yes Caffeine use: Yes Review of Systems Other: Except as documented, all other systems reviewed and negative. Physical Examination - Physical Exam General: Alert, In no apparent distress, Oriented x3 HEENT: Atraumatic, Normocephalic, Mucous membr. moist/pink, Sclerae nonicteric Neck: Supple, JVD not distended, No Thyromegaly Respiratory: Clear to auscultation bilaterally, Normal air movement Cardiovascular: No edema, Normal pulses, Regular rate/rhythm, Normal S1 S2 Capillary refill: <2 Seconds Gastrointestinal: Normal bowel sounds, Soft and benign, Non-distended, No tenderness Musculoskeletal: No swelling, No erythema Integumentary: No rashes Neurological: Normal speech, Normal strength at 5/5 x4 extr, Cranial nerves 3-12 intact - Studies Laboratory Data (last 24 hrs) 12/10/19 22:20: WBC 9.8, Hgb 14.8, Hct 43.6, Plt Count 173 12/10/19 22:20: Sodium 140, Potassium 4.0, BUN 8, Creatinine 0.83, Glucose 93, Total Bilirubin 0.8, AST 15, ALT 21, Alkaline Phosphatase 46, Lipase 101 Assessment and Plan - Problems (Diagnosis) (1) Lower GI bleed Current Visit: Yes Status: Acute (2) Psoriatic arthritis Onset Date: 05/14/18 Current Visit: No Status: Acute (3) Chronic pancreatitis Onset Date: 05/14/18 Current Visit: No Status: Chronic Qualifiers: (4) Crohn's disease Onset Date: 05/14/18 Current Visit: No Status: Chronic Qualifiers: - Plan Patient has Crohn disease flare with bloody diarrhea. Admit the patient to the medical floor. Supportive measures with IV fluids. Start empiric IV antibiotics-IV Rocephin and Flagyl. Start IV Solu-Medrol. GI consult. Monitor hemoglobin and hematocrit. Transfuse p.r.n. for hemoglobin less than 7. Hold aspirin. Pain medications as needed. - Advance Directives Does patient have a Living Will: No Does patient have a Durable POA for Healthcare: No
[2019-12-11] MEDS ORDERED: METHYLPREDNISOLONE 125 MG INJ ONE (01:32)
[2019-12-11] MEDS ORDERED: PIPER/TAZO/NS 3.375gm 3.375 GM/100 ML BAG ONE (01:33)
[2019-12-11] MEDS ORDERED: METRONIDAZOLE 500mg IVPB 500 MG/100 ML BAG IV ONE ×2 (01:33→08:25)
--- OUTSIDE RECORDS SUMMARY | 2019-12-11 02:37 | XMS REPORT | Continuity of Care Document ---
:1960 Author Organization [facility] t Address [address] [place] [address] Care Team Providers Name Role Phone Theo [...] - initial initial Memoria encounter encounter [facility] Arthropath Arthropath Problem Active [facility] psoriasis psoriasis Lucio raiza l [facility] Acute Acute Problem Active [...] [facility] - cataplexy cataplexy Lucio raiza l [facility] Disc Disc Problem Active [facility] disorder [facility] Other Other Problem Active [facility] chronic chronic [facility] - pancreatit pancreatit Me moria is is l [facility] Gastro-eso Gastro-eso Problem Active [...] blood [facility] - sugar sugar [facility] l [facility] BMI BMI Problem Active [facility] 29[facility]0-29.9, 29.0-29.9, Martha kes - adult adult Memoria l [facility] Nausea Nausea Problem [facility] Wheezing Wheezing Problem [facility] Panic Panic Problem Active [facility] disorder disorder [facility] - with with Memoria agoraphobi agoraphobi l a a [facility] Hospital Hospital Problem Active [facility] discharge discharge [facility] - follow-up follow-up Lucio raiza l [facility] BPH loc BPH loc Problem Active [facility] w/o ur w/o ur [facility] - obs/LUTS obs/LUTS Memori a l [facility] Hypertensi Problem Active 2019-04-22 M emoria ve 01:06:38 l disorder, Emeigh systemic Hypertensi arterial ve (disorder) disorder, systemic arterial (disorder) Active Problem 04/22/2019 [facility] Memory Problem Active 2019-04-22 Memor ia impairment 01:06:38 l (finding) Memory Maggy nn impairment (finding) Active Problem 04/22/2019 [facility] Neck pain Problem Active 2019-04-22 Me moria (finding) 01:06:38 l Neck Evan pain (finding) Active Problem 04/22/2019 [facility] Paresthesi Problem Active 2019-04-22 M emoria a 01:06:38 l (finding) Emeigh Paresthesi a (finding) Active Problem 04/22/2019 [facility] Simple Problem Active 2019-04-22 Memor ia obesity 01:06:38 l (disorder) Simple Herm jessa obesity (disorder) Active Problem 04/22/2019 [facility] Tremor Problem Active 2019-04-22 Memor ia (finding) 01:06:38 l Tremor Emeigh (finding) Active Problem 04/22/2019 [facility] Dizziness Problem Active 2019-04-22 Me moria (finding) 01:06:38 l Emeigh Dizziness (finding) Active Problem 04/22/2019 [facility] Allergies, Adverse Reactions, Alerts Allergy Allergy Status Severity Reaction(s) Onset Inactive Treating Comm ents Source Name Type Date Date Clinician Keflex Adverse Active rash [facility] Phenerga Adverse Active hives [facility] n Reaction [facility] Bactrim Adverse Active rash [facility] DS Reaction [facility] Levaquin Adverse Active stops [facility] Reaction breathing [facility] Levaquin Levaquin Active Memori a roberto Gordon Social History Smoking Status Start Date Stop Date Source Social History 2019-03-28 18:18:16 2019-03-28 18:18:16 [facility] Medications Ordered Filled Start Stop Current Ordering Indication Dosage Frequency Signature Comments Components Source Medication Medication Date Date Medication? Clinician (SIG) Name Name valsartan 2019- Yes 0 Memoria 40 mg oral 0-24 Refill(s) l tablet 19:12: Emeigh 00 pantoprazol 2019- Yes 40 mg = 1 M emoria e 40 mg 4-24 tab, PO, l oral 19:00: Daily, # Evan enteric 00 30 tab, 0 coated Refill(s) tablet carvedilol 2019- Yes 25 mg = 1 Me moria 25 mg oral 4-24 tab, PO, l tablet 19:00: BID, # 180 Maggy nn 00 tab, 0 Refill(s) Acetaminoph Yes 1 tab, PO, Memoria en 325 MG / 4-24 QID, 0 l Hydrocodone 19:00: Refill(s) H ermann Bitartrate 00 10 MG Oral Tablet [[place] 10/325] Clonazepam Yes 2 mg = 1 Mem oria 2 MG Oral 4-24 tab, PO, l Tablet 19:00: BID, # 60 Jun n [Klonopin] 00 tab, 0 Refill(s) Aspirin 81 Aspirin 81 Yes Esthela [address] [facility] 4-12 [place] [facility] - 00:00: Memoria 00 [facility] Albuterol Albuterol 2014-06 Yes Esthela [address] [facility] Sulfate HFA Sulfate HFA 1-25 [place] [facility] - 00:00: Memoria 00 [facility] Clonazepam Clonazepam Yes Esthela TAKE [address] [facility] [place] TABLET BY [facility] - MOUTH Memoria TWICE A l DAY [facility] Carvedilol Carvedilol Yes Esthela take [address] [facility] [place] tablet by [facility] - mouth Memoria twice a l day [facility] Famotidine Famotidine Yes Esthela [address] [facility] [place] at bedtime [facility] Protonix Protonix Yes Esthela [address] [place] [facility] Dicyclomine Dicyclomine Yes Esthela [address] HCl HCl [place] [facility] Ventolin Ventolin Yes Esthela [address] HFA HFA [place] [facility] Valsartan Valsartan Yes Esthela [address] [facility] [place] [facility] Hydrocodone Hydrocodone Yes Esthela (Schedule [facility] -Acetaminop -Acetaminop [place] II Drug) [facility] - hen hen TK 1 T PO Memoria TID l [facility] ent [facility] Creon [place]ret[place] 2019- No Esthela take by [facility] 07[facility]21 [place] mouth 1 [facility] - 00:00 capsule 3 [facility] :[facility] Vital Signs Vital Name Observation Time Observation Value Comments Source Systolic (mm Hg) 2019-03-28 18:17:00 Lucio rial Evan Diastolic (mm Hg) 2019-03-28 18:17:00 Mem orial Evan Heart Rate 2019-03-28 18:17:00 Memorial Emeigh Respitory Rate 2019-03-28 18:17:00 Memori al Evan Height 2019-03-28 18:17:00 172.72 cm Memorial Emeigh Weight 2019-03-28 18:17:00 Memorial [place] BMI Calculated 2019-03-28 18:17:00 Memori al Emeigh BMI Calculated 2018-09-26 18:51:00 Memori al Evan Weight 2018-09-26 18:51:00 Memorial Emeigh Height 2018-09-26 18:51:00 172.72 cm Memorial Evan Heart Rate 2018-09-26 18:51:00 [facility] Evan Respitory Rate 2018-09-26 18:51:00 Memori al Evan Systolic (mm Hg) 2018-09-26 18:51:00 Lucio rial Evan Diastolic (mm Hg) 2018-09-26 18:51:00 Mem orial Evan Procedures This patient has no known procedures. Encounters Start End Encounter Admission Attending Care Care Encounter Source Date/Time Date/Time Type Type Clinicians Facility Department ID 2019-07-21 2019-07-21 Emergency [facility] [id number] 18:06:23 22:09:00 Camila Theo Layton [id number] [place] [id number] [place] [id number] 2019-07-15 2019-07-15 Outpatient Malena Guyt [id number] [facility] [address] 15:01:00 15:01:00 t Specialty/U Martha kes - Specialty rology Memori a /Urology Clinic l Clinic Outpati ent Clinics 2019-07-09 2019-07-09 [place] [id number] [facility] 16:46:00 16:46:00 t Specialty/U Martha kes - Specialty rology Memori a /Urology Clinic l Clinic Outpati ent Clinics 2019-07-08 2019-07-08 Outpatient Malena Guyt [id number] [address] 14:51:00 14:51:00 t Specialty/U Martha kes - Specialty rology Memori a /Urology Clinic l Clinic Outpati ent Clinics 2019-07-08 2019-07-08 [place] [id number] [address] 08:00:00 08:00:00 t Specialty/U Martha kes - Specialty rology Memori a /Urology Clinic l Clinic Outpati ent Clinics 2019-07-04 2019-07-04 [place] [id number] [address] 13:00:00 13:00:00 t Specialty/U Martha kes - Specialty rology [facility] a /Urology Clinic l Clinic Outpati ent Clinics 2019-07-02 2019-07-02 [place] [facility] [id number] 14:32:00 14:32:00 t [facility] Medicine Outpati ent Clinics 2019-06-27 2019-06-27 [place] [id number] 14:40:00 14:40:00 t [facility] Outpati ent Clinics 2019-06-03 2019-06-03 [place] [facility] [id number] 11:17:00 11:17:00 t [facility] Outpati ent Clinics 2019-04-18 2019-04-19 Outpatient MHMISCHER MHMISCHER [id number] 12:37:59 23:59:59 2019-04-11 2019-04-11 Outpatient AZAR ArmstrongSCHER ALICEMISCHER [id number] 15:30:00 15:30:00 Pio 03 Mau 2019-04-09 2019-04-09 [place] [id number] [facility] 15:20:00 15:20:00 [facility] Outpati ent Clinics 2019-04-01 2019-04-02 Outpatient MHMISCHER MHMISCHER [id number] 08:58:44 23:59:59 2019-03-28 2019-03-28 Outpatient AZAR ArmstrongSCHER MHMISCHER [id number] 13:00:00 23:59:59 Pio Mau 2019-02-19 2019-02-19 [place] [id number] 14:40:00 14:40:00 [facility] Medicine Outpati ent Clinics 2018-12-11 2018-12-11 [place] [facility] [id number] 11:21:00 11:21:00 [facility] Medicine Outpati ent Clinics 2018-11-19 2018-11-19 [place] [id number] 14:40:00 14:40:00 [facility] Medicine Outpati ent Clinics 2018-10-31 2018-10-31 Outpatient Nathaniel MISCHER MISCHER [id number] 13:45:00 13:45:00 Pio 01 Mau 2018-09-26 2018-09-26 Outpatient AZAR ArmstrongSCHLATHA MISCHER [id number] 13:30:00 23:59:59 Pio 00 Mau 2018-09-17 2018-09-17 [facility] [id number] [facility] 16:00:00 16:00:00 [facility] Medicine Outpati ent Clinics 2018-08-02 2018-08-02 [place] [id number] 16:07:00 16:07:00 [place] [facility] Medicine Outpati ent Clinics 2018-08-02 2018-08-02 [facility] [id number] 16:05:00 16:05:00 [place] [facility] [place] [facility] Medicine Medicine Outpati ent Clinics 2018-06-18 2018-06-18 [place] [id number] 16:00:00 16:00:00 [facility] Medicine Outpati ent Clinics 2018-01-18 2018-01-18 [place] [id number] [facility] 14:00:00 14:00:00 [facility] Medicine Outpati ent Clinics 2017-09-19 2017-09-19 [place] [id number] 09:33:00 09:33:00 [facility] Outpati ent Clinics 2017-09-14 2017-09-14 Outpatient [facility] Malenat [id number] 13:00:00 13:00:00 [facility] Outpati ent Clinics 2017-09-12 2017-09-12 Outpatient Malena Preston [id number] 11:05:00 11:05:00 [facility] 2017-08-29 2017-08-29 Outpatient [place] Guyt [id number] [facility] 15:30:00 15:30:00 [facility] Results This patient has no known results.
--- OUTSIDE RECORDS SUMMARY | 2019-12-11 02:37 | XMS REPORT | Continuity of Care Document ---
:1960 Author Organization [facility] Care Team Providers Name Role Phone [facility] Unavailable Un available Problems Problem Status Onset [...] Hydrocodone Refill(s) Bitartrate 10 MG Oral Tablet [[place] 10/325] Clonazepam 2 MG 2 mg = [...] Comments Source Systolic (mm Hg) 143 03/28/2019 [place] [facility] Diastolic (mm Hg) 82 03/28/2019 [place] Heart Rate 53 03/28/2019 [place] Respitory Rate 16 03/28/2019 [facility] Height 172.72 cm 03/28/2019 [place] Weight 89.091 03/28/2019 [place] BMI Calculated 29.86 03/28/2019 [place] BMI Calculated 30.47 09/26/2018 [facility] Weight 90.909 09/26/2018 [facility] Height 172.72 cm 09/26/2018 [place] Heart Rate 58 09/26/2018 [place] Respitory Rate 16 09/26/2018 [place] Systolic (mm Hg) 159 09/26/2018 [place] [facility] Diastolic (mm Hg) 88 09/26/2018 [place] [facility] Encounters Location Location Encounter Encounter Reason Attending ADM MS Stat us Source Details Type Number For Provider Date Date Visit MNA Outpatient [id number] Pio 09/26 09/27 [facility] Outpatient [id number] Pio 10/31 Active [facility] [place] MNA Ambulatory [id number] Pio 10/31 10/31 [facility] Neuro [facility] Outpatient [id number] Pio 03/28 [facility] Evan MNA Outpatient [id number] Pio 03/28 03/29 [facility] Neuro [facility] MNA Outside [id number] 04/[id number] 04/03 [facility] Neurology Medical /2018 Neuro [facility] Records Outpatient [id number] Pio 04/11 Active [facility] MNA Ambulatory [id number] Pio 04/11 04/11 [facility] Neuro [facility] MNA Outside [id number] 04/18 04/20 [facility] Neurology Medical Neuro [facility] Records Procedures No Data Provided for This Section Assessment and Plan No Data Provided for This Section Plan of Care No Data Provided for This Section Social History Social History Date Source Social History TypeResponse 03/28/2019 [place] Smoking Status Former smoker; Type: Cigarettes; Exposur e to Tobacco Smoke None; Cigarette Smoking Last 365 Days No; Reg Smoking Cessation Counseling No entered on: 03/28/19 Family History No Data Provided for This Section Advance Directives No Data Provided for This Section Functional Status No Data Provided for This Section
[2019-12-11] MEDS ORDERED: NA CHLORIDE 0.9% 250 ML IV SCH (03:27)
[2019-12-11] MEDS ORDERED: ONDANSETRON 4 MG/2 ML VIAL IV PRN (03:27)
[2019-12-11] MEDS ORDERED: NA CHLORIDE 0.9% 1,000 ML IV SCH (03:27)
[2019-12-11] MEDS: MORPHINE 2 MG/ML SYR IV PRN ×3 (03:30→13:10)
[2019-12-11 04:35] VITALS: BMI 26.6
[2019-12-11 04:35] LABS: Hematocrit 43.6 % (39.6-49.0)
[2019-12-11 04:37] LABS: Protime INR 1.09
[2019-12-11] MEDS ORDERED: MORPHINE 2 MG/ML SYR ONE ×2 (08:24→13:07)
[2019-12-11] MEDS ORDERED: CEFTRIAXONE/SWI 1gm 1 GM/10 ML SYR ONE (08:25)
[2019-12-11] MEDS ORDERED: METHYLPREDNISOLONE 40 MG INJ ONE (08:28)
[2019-12-11] MEDS ORDERED: PANTOPRAZOLE 40 MG INJ ONE (08:28)
--- NOTE | 2019-12-11 08:29 | RAD REPORT ---
EXAM DESCRIPTION: CT - Abdomen Pelvis Wo Contrast - 12/11/2019 5:24 am CLINICAL HISTORY: ABD PAIN COMPARISON: 10/24/2019. TECHNIQUE: CT ABDOMEN PELVIS WITHOUT IV CONTRAST on 12/10/2019 10:05 PM CDT This exam was performed according to our departmental dose-optimization program, which includes autom ated exposure control, adjustment of the mA and/or kV according to patient size and/or use of iterati ve reconstruction technique. FINDINGS: Lower lungs are clear. Abdomen: The liver is normal in appearance. There is no biliary dilatation. Gallbladder is normal in appearance. There are multiple calcified granulomas in the spleen. Pancreas is normal. Adrenal glands are unremarkable. There is a small lower pole left renal cyst. Kidneys are otherwise normal. Abdominal aorta is normal in course and caliber without aneurysm. There is no free air. There is no r etroperitoneal adenopathy. There is a small fat-containing umbilical hernia. Pelvis: There is moderate thickening of much of the ascending and proximal sigmoid colon. There is mi ld associated colonic diverticulosis. Urinary bladder is unremarkable. There is no free fluid. Append ix is normal. Skeleton: There are no acute osseous findings. No suspicious bony lesions. IMPRESSION: Worsening infectious or inflammatory colitis involving the left colon. Electronically signed by: Johnny Aquino MD 12/11/2019 12:23 AM CDT Due to temporary technical issues with the PACS/Fluency reporting system, reports are being signed by the in house radiologist without review as a courtesy to ensure prompt reporting. The interpreting r adiologist is fully responsible for the content of the report.
[2019-12-11] MEDS ORDERED: PANTOPRAZOLE 40 MG INJ IVP SCH (09:00)
[2019-12-11] MEDS ORDERED: METRONIDAZOLE 500mg IVPB 500 MG/100 ML BAG IV SCH (09:00)
[2019-12-11] MEDS ORDERED: METHYLPREDNISOLONE 40 MG INJ IV SCH (09:00)
[2019-12-11] MEDS ORDERED: CEFTRIAXONE/SWI 1gm 1 GM/10 ML SYR IV SCH (09:00)
[2019-12-11 09:45] LABS: Hematocrit 44.6 % (39.6-49.0)
--- NOTE | 2019-12-11 11:21 | P.PN ---
Subjective Date of Service: 12/11/19 Chief Complaint: Abdominal pain and bloody stools Patient has a complaint of abdominal pain and cramping. No more hematochezia when I saw him this morning. Physical Examination - Vital Signs Temperature: 97.5 F Blood Pressure: 115/67 Pulse: 62 Respirations: 16 Pulse Ox (%): 99 - Physical Exam General: Alert, In no apparent distress, Oriented x3 HEENT: Mucous membr. moist/pink, Sclerae nonicteric Neck: Supple, JVD not distended Respiratory: Clear to auscultation bilaterally, Normal air movement Cardiovascular: No edema, Regular rate/rhythm, Normal S1 S2 Capillary refill: <2 Seconds Gastrointestinal: Normal bowel sounds, Non-distended, Tenderness (Diffuse) Musculoskeletal: No swelling, No erythema Integumentary: No rashes Neurological: Normal speech, Normal strength at 5/5 x4 extr - Studies Laboratory Data (last 24 hrs) 12/10/19 22:20: WBC 9.8, Hgb 14.8, Hct 43.6, Plt Count 173 12/10/19 22:20: Sodium 140, Potassium 4.0, BUN 8, Creatinine 0.83, Glucose 93, Total Bilirubin 0.8, AST 15, ALT 21, Alkaline Phosphatase 46, Lipase 101 Assessment And Plan - Current Problems (Diagnosis) (1) Lower GI bleed Current Visit: Yes Status: Acute (2) Psoriatic arthritis Onset Date: 05/14/18 Current Visit: No Status: Acute (3) Chronic pancreatitis Onset Date: 05/14/18 Current Visit: No Status: Chronic Qualifiers: (4) Crohn's disease Onset Date: 05/14/18 Current Visit: No Status: Chronic Qualifiers: - Plan Continue supportive measures with IV fluids. Continue empiric IV antibiotics-IV Rocephin and Flagyl. Continue IV Solu-Medrol. GI consult is pending Monitor hemoglobin and hematocrit. Transfuse p.r.n. for hemoglobin less than 7. Hold aspirin. Pain medications as needed.
--- NOTE | 2019-12-11 13:54 | P.DS ---
Admission Date: 12/11/19 Discharge Date: 12/11/19 Reason for Admission: Abdominal pain and bloody stools Consultations: GI- Dr. Aguilar Procedures: Ct Abd Pelvis EXAM DESCRIPTION: CT - Abdomen Pelvis Wo Contrast - 12/11/2019 5:24 am CLINICAL HISTORY: ABD PAIN COMPARISON: 10/24/2019. TECHNIQUE: CT ABDOMEN PELVIS WITHOUT IV CONTRAST on 12/10/2019 10:05 PM CDT This exam was performed according to our departmental dose-optimization program, which includes automated exposure control, adjustment of the mA and/or kV according to patient size and/or use of iterative reconstruction technique. FINDINGS: Lower lungs are clear. Abdomen: The liver is normal in appearance. There is no biliary dilatation. Gallbladder is normal in appearance. There are multiple calcified granulomas in the spleen. Pancreas is normal. Adrenal glands are unremarkable. There is a small lower pole left renal cyst. Kidneys are otherwise normal. Abdominal aorta is normal in course and caliber without aneurysm. There is no free air. There is no retroperitoneal adenopathy. There is a small fat- containing umbilical hernia. Pelvis: There is moderate thickening of much of the ascending and proximal sigmoid colon. There is mild associated colonic diverticulosis. Urinary bladder is unremarkable. There is no free fluid. Appendix is normal. Skeleton: There are no acute osseous findings. No suspicious bony lesions. IMPRESSION: Worsening infectious or inflammatory colitis involving the left colon Medical problem list Hematochezia likely secondary to Crohn's flare Chronic pancreatitis Hypertension GERD Brief History of Present Illness: 51-year-old male with medical history including Crohn's, chronic pancreatitis, hypertension, GERD presents to the emergency department for bright red blood per rectum x2 with bowel movement. Patient reports that he does have a history of Crohn's that he has not had this problem with blood in his stool in the past. Patient is admitted for further evaluation and management of this condition. Hospital Course: Patient was admitted for hematochezia likely secondary to Crohn's flare. Patient had 1 bloody bowel movement while he is in the emergency department. Patient started on IV steroids, antibiotics, pain medications, and maintenance fluids. Patient's repeat hemoglobin hematocrit were stable x2. Patient has not since had any blood in his stool after having a bowel movement while in the hospital. Patient with some discomfort but does not have any severe distress. Discuss case with gastroenterology who believed the patient can be managed on an outpatient basis. Patient will have telemedicine visit tomorrow morning as an outpatient. Patient we discharged with prednisone 10 mg twice daily for 7 days, ciprofloxacin 500 mg b.i.d. for 10 days, Flagyl 500 mg p.o. t.i.d. for 10 days. Patient reports that he has pain medications that he can take at home. The patient has tolerated a soft diet while he is in the hospital. Patient is stable for discharge at this time. The patient with history of chronic pancreatitis. Patient can continue with Creon 56219 units by mouth 3 times a day with meals. Patient is history of hypertension can continue with carvedilol 25 mg p.o. b.i.d.. Patient with medical history of GERD can continue with Protonix 40 mg p.o. once daily. <Channing Cosby - Last Filed: 12/11/19 15:11> Admission Date: 12/11/19 Discharge Date: 12/11/19 Hospital Course: Case discussed at length. Agree with evaluation, assessment and plan of care. Patient to be discharge home. Case also discuss with GI who will follow up patient as an outpatient. Continue prednisone, antibiotic therapy. Follow up with GI tomorrow. <Renard Clark - Last Filed: 12/11/19 18:06> Discharge Condition: GOOD Vital Signs/Physical Exam: Temp Pulse Resp BP Pulse Ox 97.4 F 84 18 131/69 98 12/11/19 12:00 12/11/19 12:00 12/11/19 13:10 12/11/19 12:00 12/11/19 13:10 General: Alert, In no apparent distress, Oriented x3 HEENT: Atraumatic, Normocephalic Neck: Supple, 2+ carotid pulse no bruit Respiratory: Clear to auscultation bilaterally Cardiovascular: No edema Capillary refill: <2 Seconds Gastrointestinal: Normal bowel sounds, No rebound, No guarding, Tenderness (Mild generalized abdominal tenderness) Musculoskeletal: No contractures, No erythema, No tenderness Integumentary: No significant lesion, No tenderness/swelling, No erythema Neurological: Normal speech, Normal strength at 5/5 x4 extr, Normal tone, Sensation intact Laboratory Data at Discharge: WBC 9.8 K/uL (4.3-10.9) 12/10/19 22:20 Hgb 15.0 g/dL (13.6-17.9) 12/11/19 09:36 Hct 44.6 % (39.6-49.0) 12/11/19 09:36 Plt Count 173 K/uL (152-406) 12/10/19 22:20 PT 12.8 SECONDS (9.5-12.5) H 12/11/19 04:15 INR 1.09 12/11/19 04:15 Sodium 140 mmol/L (136-145) 12/10/19 22:20 Potassium 4.0 mmol/L (3.5-5.1) 12/10/19 22:20 BUN 8 mg/dL (7-18) 12/10/19 22:20 Creatinine 0.83 mg/dL (0.55-1.3) 12/10/19 22:20 Glucose 93 mg/dL (74-106) 12/10/19 22:20 Total Bilirubin 0.8 mg/dL (0.2-1.0) 12/10/19 22:20 AST 15 U/L (15-37) 12/10/19 22:20 ALT 21 U/L (12-78) 12/10/19 22:20 Alkaline Phosphatase 46 U/L (45-117) 12/10/19 22:20 Lipase 101 U/L (73-393) 12/10/19 22:20 <Channing Cosby - Last Filed: 12/11/19 15:11> Vital Signs/Physical Exam: Temp Pulse Resp BP Pulse Ox 97.8 F 65 18 114/64 97 12/11/19 16:00 12/11/19 16:00 12/11/19 16:00 12/11/19 16:00 12/11/19 16:00 Laboratory Data at Discharge: WBC 9.8 K/uL (4.3-10.9) 12/10/19 22:20 Hgb 15.0 g/dL (13.6-17.9) 12/11/19 09:36 Hct 44.6 % (39.6-49.0) 12/11/19 09:36 Plt Count 173 K/uL (152-406) 12/10/19 22:20 PT 12.8 SECONDS (9.5-12.5) H 12/11/19 04:15 INR 1.09 12/11/19 04:15 Sodium 140 mmol/L (136-145) 12/10/19 22:20 Potassium 4.0 mmol/L (3.5-5.1) 12/10/19 22:20 BUN 8 mg/dL (7-18) 12/10/19 22:20 Creatinine 0.83 mg/dL (0.55-1.3) 12/10/19 22:20 Glucose 93 mg/dL (74-106) 12/10/19 22:20 Total Bilirubin 0.8 mg/dL (0.2-1.0) 12/10/19 22:20 AST 15 U/L (15-37) 12/10/19 22:20 ALT 21 U/L (12-78) 12/10/19 22:20 Alkaline Phosphatase 46 U/L (45-117) 12/10/19 22:20 Lipase 101 U/L (73-393) 12/10/19 22:20 <Renard Clark - Last Filed: 12/11/19 18:06> Patient Discharge Instructions: 1. You need to follow up with the primary care doctor in 1-2 weeks to follow up this hospitalization. 2. You need to call Dr. Aguilar's office to schedule an appointment for the telemedicine visit tomorrow. 3. Patient was admitted for hematochezia likely secondary to Crohn's flare. Patient had 1 bloody bowel movement while he is in the emergency department. Patient started on IV steroids, antibiotics, pain medications, and maintenance fluids. Patient's repeat hemoglobin hematocrit were stable x2. Patient has not since had any blood in his stool after having a bowel movement while in the hospital. Patient with some discomfort but does not have any severe distress. Discuss case with gastroenterology who believed the patient can be managed on an outpatient basis. Patient will have telemedicine visit tomorrow morning as an outpatient. Patient we discharged with prednisone 10 mg twice daily for 7 days, ciprofloxacin 500 mg b.i.d. for 10 days, Flagyl 500 mg p.o. t.i.d. for 10 days. Patient reports that he has pain medications that he can take at home. The patient has tolerated a soft diet while he is in the hospital. Patient is stable for discharge at this time. The patient with history of chronic pancreatitis. Patient can continue with Creon 38734 units by mouth 3 times a day with meals. Patient is history of hypertension can continue with carvedilol 25 mg p.o. b.i.d.. Patient with medical history of GERD can continue with Protonix 40 mg p.o. once daily. Diet: GI soft, advance to full regular diet as tolerated Activity: Ad ade Time spent managing pt's care (in minutes): 55 <Channing Cosby - Last Filed: 12/11/19 15:11> <Renard Clark - Last Filed: 12/11/19 18:06> Home Medications: Albuterol Sulfate [Ventolin Hfa] 2 puff IH TID PRN 05/11/18 Hydrocodone Bit/Acetaminophen [Hydrocodon-Acetaminoph 7.5-325] 1 tab PO QID PRN 05/11/18 Lipase/Protease/Amylase [Creon Dr 12,000 Units Capsule] 24,000 units PO TIDWM 05/11/18 Pantoprazole [Protonix Tab*] 40 mg PO DAILY 05/11/18 carvediloL [Carvedilol] 25 mg PO BID 05/11/18 clonazePAM [Clonazepam] 1 mg PO BID 05/11/18 Ciprofloxacin HCl [Cipro 500 MG Tablet] 500 mg PO BID 10 Days #20 tab 12/11/19 metroNIDAZOLE [Flagyl*] 500 mg PO Q8H 10 Days #30 tablet 12/11/19 predniSONE [Deltasone*] 10 mg PO BID #14 tab 12/11/19 New Medications: Ciprofloxacin HCl [Cipro 500 MG Tablet] 500 mg PO BID 10 Days #20 tab predniSONE [Deltasone*] 10 mg PO BID #14 tab metroNIDAZOLE [Flagyl*] 500 mg PO Q8H 10 Days #30 tablet
[2019-12-11] MEDS ORDERED: NA CHLORIDE 0.9% 1,000 ML ONE (14:08)
[2019-12-11 16:26] VITALS: BP 114/64; TEMP 97.8
[2019-12-11 18:14] VITALS: O2SAT 100
== END 2019-12-11 18:03 | disposition home health service (06) ==
LOC: ER 20:08 → INTOOBSV 12-11 02:07 → ERHOLD 12-11 02:07
PROVIDERS: ADMIT Internal Medicine; ATTEND Internal Medicine
DX: K50.911 Crohn's disease, unspecified, with rectal bleeding (principal); K86.1 Other chronic pancreatitis; K21.9 Gastro-esophageal reflux disease without esophagitis; L40.50 Arthropathic psoriasis, unspecified; I10 Essential (primary) hypertension; F43.10 Post-traumatic stress disorder, unspecified; F41.9 Anxiety disorder, unspecified; Z88.2 Allergy status to sulfonamides; Z88.3 Allergy status to other anti-infective agents; Z88.8 Allergy status to other drugs, medicaments and biological substances; Z91.040 Latex allergy status
CPT/HCPCS: 85025; 80048; 36415; 86900; 86850; 85610; 86901; 80076; 85018 ×2; 85014 ×2; 83690; 74176; 96375; 96374; 99285; C9113 ×2; J2543; J2270 ×3; J0696; J7030 ×2; J2930; J2920; G0378 ×2

== ENCOUNTER 2020-02-22 23:47 | Emergency (ER) | payer OTHER ==
--- OUTSIDE RECORDS SUMMARY | 2020-02-22 23:50 | XMS REPORT | Continuity of Care Document ---
:1960 Author Organization Appticles Care Team Providers Name Role Phone Appticles Unavailable Un available Problems Problem Status Onset [...] Hydrocodone Refill(s) Bitartrate 10 MG Oral Tablet [Denio 10/325] Clonazepam 2 MG 2 mg = [...] Comments Source Systolic (mm Hg) 143 03/28/2019 [facility] Penny ro Diastolic (mm Hg) 82 03/28/2019 [facility] Ne uro Heart Rate 53 03/28/2019 [facility] Neuro Respitory Rate 16 03/28/2019 [facility] Neuro Height 172.72 cm 03/28/2019 [facility] Neuro Weight 89.091 03/28/2019 [facility] Neuro BMI Calculated 29.86 03/28/2019 [facility] Neuro BMI Calculated 30.47 09/26/2018 [facility] Neuro Weight 90.909 09/26/2018 [facility] Neuro Height 172.72 cm 09/26/2018 [facility] Neuro Heart Rate 58 09/26/2018 [facility] Neuro Respitory Rate 16 09/26/2018 [facility] Neuro Systolic (mm Hg) 159 09/26/2018 [facility] Penny ro Diastolic (mm Hg) 88 09/26/2018 [facility] Ne uro Encounters Location Location Encounter Encounter Reason Attending ADM ME Stat us Source Details Type Number For Provider Date Date Visit MNA Outpatient [id number] P[place] 09/26 09/27 [facility] Neurology [facility] [place] Outpatient [id number] Pio 10/31 Active [facility] [place] MNA Ambulatory [id number] Pio 10/31 10/31 [facility] Neurology Pre-Reg [facility] [place] Outpatient [id number] Pio 03/28 [facility] [place] MNA Outpatient [id number] Pio 03/28 03/29 [facility] Neurology [facility] [place] MNA Outside [id number] 04/01 04/03 [facility] Neurology Medical /2018 Neuro [place] Records Outpatient [id number] Pio 04/11 Active [facility] [place] MNA Ambulatory [id number] Pio 04/11 04/11 [facility] Neurology Pre-Reg [facility] [place] MNA Outside [id number] 04/18 04/20 [facility] Neurology Medical [place] Records Procedures No Data Provided for This Section Assessment and Plan No Data Provided for This Section Plan of Care No Data Provided for This Section Social History Social History Date Source Social History TypeResponse 03/28/2019 [facility] Neur o Smoking Status Former smoker; Type: Cigarettes; Exposur e to Tobacco Smoke None; Cigarette Smoking Last 365 Days No; Reg Smoking Cessation Counseling No entered on: 03/28/19 Family History No Data Provided for This Section Advance Directives No Data Provided for This Section Functional Status No Data Provided for This Section
--- OUTSIDE RECORDS SUMMARY | 2020-02-22 23:50 | XMS REPORT | Continuity of Care Document ---
:[address] [facility] t Address [address] [place] [address] Care Team Providers Name Role Phone Theo [...] - initial initial Memoria encounter encounter l [facility] Clinics Arthropath Arthropath Problem Active [facility] - psoriasis psoriasis Lucio raiza l [facility] Clinics Acute Acute Problem Active [facility] - cataplexy cataplexy Lucio raiza l [facility] Clinics Disc Disc Problem Active [facility] disorder disorder [facility] - Memoria l [facility] Clin[facility] Other Other Problem Active [facility] chronic chronic [facility] - pancreatit pancreatit Me moria is is l [facility] Clinics Gastro-eso Gastro-eso Problem Active C [...] Martha kes - adult adult Memoria l [facility] Clinics Nausea Nausea Problem [facility] Clin[facility] Wheezing Wheezing Problem [facility] Panic Panic Problem Active [facility] disorder disorder [facility] - with with Memoria agoraphobi agoraphobi l a a [facility] Clinics Hospital Hospital Problem Active [facility] t discharge discharge Luke s - follow-up follow-up Lucio raiza l [facility] Clinics BPH loc BPH loc Problem Active [facility] w/o ur w/o ur [facility] - obs/LUTS obs/LUTS Memori a l [facility] Clinics Hypertensi Problem Active 2019-04-22 M emoria ve 01:06:38 l disorder, [place] systemic Hypertensi arterial ve (disorder) disorder, systemic arterial (disorder) Active Problem 04/22/2019 [facility] Memory Problem Active 2019-04-22 Memor ia impairment 01:06:38 l (finding) Memory Maggy nn impairment (finding) Active Problem 04/22/2019 [facility] Neck pain Problem Active 2019-04-22 Me moria (finding) 01:06:38 l Neck [place] pain (finding) Active Problem 04/22/2019 [facility] Paresthesi Problem Active 2019-04-22 M emoria a 01:06:38 l (finding) [place] Paresthesi a (finding) Active Problem 04/22/2019 [facility] Simple Problem Active 2019-04-22 Memor ia obesity 01:06:38 l (disorder) Simple Herm jessa obesity (disorder) Active Problem 04/22/2019 [facility] Tremor Problem Active 2019-04-22 Memor ia (finding) 01:06:38 l Tremor [place] (finding) Active Problem 04/22/2019 [facility] Dizziness Problem Active 2019-04-22 Me moria (finding) 01:06:38 l [place] Dizziness (finding) Active Problem 04/22/2019 [facility] Allergies, Adverse Reactions, Alerts Allergy Allergy Status Severity Reaction(s) Onset Inactive Treating Comm ents Source Name Type Date Date Clinician Keflex Adverse Active rash [facility]oria l [facility] Phenerga Adverse Active hives [facility] n Reaction [facility] Bactrim Adverse Active rash [facility] DS Reaction [facility] Memoria l [facility] Levaquin Adverse Active stops [facility] Reaction breathing [facility] l [facility] Levaquin Levaquin Active Memori a roberto Gordon Social History Smoking Status Start Date Stop Date Source Social History 2019-03-28 18:18:16 2019-03-28 18:18:16 [facility] Medications Ordered Filled Start Stop [...] ermann Bitartrate 00 10 MG Oral Tablet [[place] 10/325] Clonazepam Yes 2 mg = 1 Mem oria 2 MG Oral 4-24 tab, PO, l Tablet 19:00: BID, # 60 Jun n [Klonopin] 00 tab, 0 Refill(s) Aspirin 81 Aspirin 81 Yes Esthela [address] [facility] 4-12 [place] [facility] - 00:00: Memoria 00 [facility] ent Clinics Albuterol Albuterol 2014-06 Yes Esthela [address] [facility] Sulfate HFA Sulfate HFA 1-25 [place] [facility] - 00:00: Memoria 00 [facility] ent Clinics Clonazepam Clonazepam Yes Esthela TAKE [address] [facility] [place] TABLET BY [facility] - MOUTH Memoria TWICE A l DAY [facility] Carvedilol Carvedilol Yes Esthela take [address] [facility] [place] tablet by [facility] - mouth Memoria twice a l day [facility] Clinics Famotidine Famotidine Yes Esthela [address] [facility] [place] at bedtime [facility] Protonix Protonix Yes Esthela [address] [place] [facility] Clinics Dicyclomine Dicyclomine Yes Esthela [address] HCl HCl [place] [facility] Clinics Ventolin Ventolin Yes Esthela [address] HFA HFA [place] [facility] ent [facility] Valsartan Valsartan Yes Esthela [address] [facility] [place] [facility] Clinics Hydrocodone Hydrocodone Yes Esthela (Schedule [facility] -Acetaminop -Acetaminop [place] II Drug) [facility] - hen hen TK 1 T PO Memoria TID l [facility] ent Clinics Creon [place] 2019- No Esthela take by [facility] 07[facility]21 [place] mouth 1 [facility] - 00:00 capsule 3 Memoria :00 times a l day as Outpati directed ent Clinics Vital Signs Vital Name Observation Time Observation Value Comments Source Systolic (mm Hg) 2019-03-28 18:17:00 Lucio rial [place] Diastolic (mm Hg) 2019-03-28 18:17:00 Mem orial [place] Heart Rate 2019-03-28 18:17:00 [facility] [place] Respitory Rate 2019-03-28 18:17:00 Memori al [place] Height 2019-03-28 18:17:00 172.72 cm [facility] [place] Weight 2019-03-28 18:17:00 [facility] [place] BMI Calculated 2019-03-28 18:17:00 Memori al [place] BMI Calculated 2018-09-26 18:51:00 Memori al [place] Weight 2018-09-26 18:51:00 [facility] [place] Height 2018-09-26 18:51:00 172.72 cm [facility] [place] Heart Rate 2018-09-26 18:51:00 [facility] [place] Respitory Rate 2018-09-26 18:51:00 Memori al [place] Systolic (mm Hg) 2018-09-26 18:51:00 Lucio rial [place] Diastolic (mm Hg) 2018-09-26 18:51:00 Mem orial [place] Procedures This patient has no known procedures. Encounters Start End Encounter Admission Attending Care Care Encounter Source Date/Time Date/Time Type Type Clinicians Facility Department ID 2019-07-21 2019-07-21 Emergency [facility] [id number] 18:06:23 22:09:00 Camila Theo Layton [id number] [place] [id number] [place] [id number] 2019-07-15 2019-07-15 Outpatient Malena Perston [id number] [facility] 15:01:00 15:01:00 t Specialty/U Martha kes - Specialty rology Memori a /Urology Clinic l Clinic Outpati ent Clinics 2019-07-09 2019-07-09 Outpatient Malena Guyt [id number] [facility] 16:46:00 16:46:00 t Specialty/U Martha kes - Specialty rology Memori a /Urology Clinic l Clinic Outpati ent Clinics 2019-07-08 2019-07-08 Outpatient Malena Guyt [id number] 14:51:00 14:51:00 t Specialty/U [facility] Out[facility] Clinics 2019-07-08 2019-07-08 [facility] [id number] 08:00:00 08:00:00 t Specialty/U Martha kes [facility] Clinic Outpati ent Clinics 2019-07-04 2019-07-04 [facility] [id number] 13:00:00 13:00:00 t Specialty/U Martha kes - Specialty rology [facility] a /Urology Clinic l Clinic Outpati ent Clinics 2019-07-02 2019-07-02 [facility] [id number] 14:32:00 14:32:00 t [facility] Medicine Outpati ent Clinics 2019-06-27 2019-06-27 [facility] [id number] 14:40:00 14:40:00 t [facility] Outpati ent Clinics 2019-06-03 2019-06-03 [facility] [id number] 11:17:00 11:17:00 t [facility] Outpati ent Clinics 2019-04-18 2019-04-19 Outpatient MHMISCHER MHMISCHER [id number] 12:37:59 23:59:59 2019-04-11 2019-04-11 Outpatient MARIAH ArmstrongSCHER [id number] 15:30:00 15:30:00 Pio 03 [place] 2019-04-09 2019-04-09 [facility] [id number] [address] 15:20:00 15:20:00 t [facility] Outpati ent Clinics 2019-04-01 2019-04-02 Outpatient MHMISCHER MHMISCHER [id number] 08:58:44 23:59:59 2019-03-28 2019-03-28 Outpatient AZAR ArmstrongSCHLATHA MHMISCHER [id number] 13:00:00 23:59:59 [place] 2019-02-19 2019-02-19 [facility] [id number] 14:40:00 14:40:00 [facility] Medicine Outpati ent Clinics 2018-12-11 2018-12-11 [facility] [id number] [facility] 11:21:00 11:21:00 [facility] Medicine Outpati ent Clinics 2018-11-19 2018-11-19 [facility] [id number] 14:40:00 14:40:00 [facility] Medicine Outpati ent Clinics 2018-10-31 2018-10-31 Outpatient AZAR ArmstrongSCHER MISCHER [id number] 13:45:00 13:45:00 [place] 2018-09-26 2018-09-26 Outpatient AZAR ArmstrongSCHLATHA MISCHER [id number] 13:30:00 23:59:59 [place] 2018-09-17 2018-09-17 [facility] [id number] [facility] 16:00:00 16:00:00 [facility] Medicine Outpati ent Clinics 2018-08-02 2018-08-02 [facility] [id number] [facility] 16:07:00 16:07:00 [facility] Medicine Outpati ent Clinics 2018-08-02 2018-08-02 [facility] [id number] 16:05:00 16:05:00 [facility] Medicine Outpati ent Clinics 2018-06-18 2018-06-18 [facility] [id number] 16:00:00 16:00:00 [facility] Medicine Outpati ent Clinics 2018-01-18 2018-01-18 [facility] [id number] 14:00:00 14:00:00 [facility] l Medicine Outpati ent Clinics 2017-09-19 2017-09-19 [facility] [id number] 09:33:00 09:33:00 [facility] Outpat[facility] Clinics 2017-09-14 2017-09-14 Outpatient Malena Preston [id number] [facility] 13:00:00 13:00:00 [facility] Clinics 2017-09-12 2017-09-12 Outpatient Malena Preston [id number] [facility] [facility] 11:05:00 11:05:00 [facility] Clin[facility] 2017-08-29 2017-08-29 Outpatient Malena Preston [id number] [facility] 15:30:00 15:30:00 [facility] Clin[facility] Results This patient has no known results.
[2020-02-23 01:38] LABS: Absolute Lymphocytes (CBC) 2.7 K/uL (0.7-4.9); Basophils % 0.4 % (0-1.3); Hematocrit 41.7 % (39.6-49.0); Lymphocytes % 34.6 % (15.3-44.8); RBC Red Blood Cell Count 4.63 M/uL (4.33-5.43)
[2020-02-23 01:55] LABS: ALT/SGPT 23 U/L (12-78); AST/SGOT 13 U/L (15-37); Albumin 3.5 g/dL (3.4-5.0); Alkaline Phosphatase 47 U/L (45-117); BUN Blood Urea Nitrogen 18 mg/dL (7-18); Bicarbonate 28 mmol/L (21-32); Bilirubin Total 0.5 mg/dL (0.2-1.0); Glucose Level 85 mg/dL (74-106); Potassium 3.9 mmol/L (3.5-5.1); Protein, Total 6.6 g/dL (6.4-8.2); Sodium Level 142 mmol/L (136-145)
[2020-02-23] MEDS ORDERED: ACETAMINOPHEN 500 MG TAB ONE (02:28)
--- NOTE | 2020-02-23 02:41 | EDPHYS ---
Physician Documentation [facility] Name: Alfredo Escobar Age: 59 yrs Sex: Male : 1960 Arrival Date: 02/22/2020 Time: 23:50 Bed 23 Private MD: ED Physician Theodore Vyas HPI: 02/22 01:00 This 59 yrs old Male presents to ER via Ambulatory with complaints of Jaw cp Pain, Throat Pain, Arm Pain. 01:00 The patient or guardian complains of pain, that is acute, tenderness. The symptoms are cp located on the anterior neck. 01:00 Onset: The symptoms/episode began/occurred 4 day(s) ago. cp 01:00 Associated signs and symptoms: Pertinent positives: sore throat, dysphagia, Pertinent cp negatives: fever, tooth pain. The pain does not radiate. Severity of symptoms: in the emergency department the symptoms are unchanged, despite home interventions. Historical: - Allergies: 00:19 Bactrim; lp1 00:19 Iodinated Contrast Media - IV Dye; lp1 00:19 Iodine; lp1 00:19 Keflex; lp1 00:19 Latex, Natural Rubber; lp1 00:19 Levaquin; lp1 00:19 promethazine HCl; lp1 00:19 Toradol; lp1 - Home Meds: 00:19 carvedilol 25 mg Oral tab 2 times per day [Active]; clonazepam 2 mg Oral tab 2 times lp1 per day [Active]; Creon 97217 units Oral 3 times per day [Active]; [place] 10-325 mg Oral tab twice a day [Active]; pantoprazole 40 mg Oral TbEC once daily [Active]; Ventolin HFA 90 mcg/actuation Nebulizer HFAA 2 puffs every 8 hours [Active]; calcipotriene 0.005 % Topical oint 2 times per day [Active]; - PMHx: 00:19 Anxiety; Arthritis; Crohn's; GERD; Pancreatitis; PTSD; lp1 - PSHx: 00:19 None; lp1 - Immunization history:: Adult Immunizations up to date. - Social history:: Smoking status: Patient denies any tobacco usage or history of. ROS: 01:05 Constitutional: Negative for fever, poor PO intake. cp 01:05 Eyes: Negative for injury, pain, redness, and discharge. cp 01:05 ENT: Positive for difficulty swallowing, sore throat, Negative for ear pain, difficulty cp handling secretions. 01:05 Cardiovascular: Negative for chest pain, edema, palpitations. 01:05 Respiratory: Negative for cough, shortness of breath, wheezing. 01:05 Abdomen/GI: Negative for abdominal pain, nausea, vomiting, and diarrhea. 01:05 Skin: Negative for rash. 01:05 Neuro: Negative for altered mental status, headache, weakness. 01:05 All other systems are negative. Exam: 01:10 Constitutional: The patient appears in no acute distress, alert, awake, cp non-diaphoretic, non-toxic, well developed, well nourished. 01:10 Head/Face: Normocephalic, atraumatic. cp 01:10 Eyes: Periorbital structures: appear normal, Conjunctiva: normal, no exudate, no injection, Sclera: no appreciated abnormality, Lids and lashes: appear normal, bilaterally. 01:10 ENT: External ear(s): are unremarkable, Ear canal(s): are normal, clear, TM's: bulging, is not appreciated, bilaterally, erythema, is not appreciated, bilaterally, Nose: is normal, Mouth: Lips: moist, Oral mucosa: moist, Posterior pharynx: Airway: no evidence of obstruction, patent, Tonsils: are normal in appearance, swelling, is not appreciated, erythema, is not appreciated, exudate, is not appreciated, Dental exam: dental caries, that is moderate, diffusely, missing teeth, diffusely, pain, is not appreciated, Voice: is normal, negative trismus. 01:10 Neck: Trachea: is midline with no obvious abnormalities, no tenderness. ROM/movement: is normal, is supple, no meningismus, no nuchal rigidity, Lymph nodes: no appreciated lymphadenopathy. 01:10 Chest/axilla: Inspection: normal, Palpation: is normal, no crepitus, no tenderness. 01:10 Cardiovascular: Rate: normal, Rhythm: regular. 01:10 Respiratory: the patient does not display signs of respiratory distress, Respirations: normal, no use of accessory muscles, labored breathing, is not present. 01:10 Skin: no rash present. Vital Signs: 00:21 BP 122 / 83; Pulse 67; Resp 18; Temp 98.6(O); Pulse Ox 98% on R/A; Weight 79.38 kg (R); lp1 Pain 5/10; 00:39 BP 126 / 79; Pulse 65; Resp 18; Temp 98.2; Pulse Ox 97% on R/A; Pain 5/10; jv1 01:30 BP 125 / 81; Pulse 66; Resp 18; Temp 98.3; Pulse Ox 97% ; Pain 4/10; jv1 02:30 BP 139 / 75; Pulse 60; Resp 18; Temp 98.8; Pulse Ox 100% ; Pain 4/10; jv1 03:06 BP 128 / 75; Pulse 61; Resp 18; Temp 98.2; Pulse Ox 98% ; Pain 1/10; jv1 MDM: 00:40 Patient medically screened. cp 01:30 Differential diagnosis: torticollis, retropharyngeal abscess, strep throat, mono, cp lymphadenopathy, Abran's Angina. 02:39 Data reviewed: vital signs, nurses notes, lab test result(s), radiologic studies, CT cp scan. 02:39 Counseling: I had a detailed discussion with the patient and/or guardian regarding: the cp historical points, exam findings, and any diagnostic results supporting the discharge/admit diagnosis, lab results, radiology results, the need for outpatient follow up, a family practitioner, to return to the emergency department if symptoms worsen or persist or if there are any questions or concerns that arise at home. Response to treatment: the patient's symptoms have mildly improved after treatment, and as a result, I will discharge patient. ED course: VSS. CT soft tissue neck negative for acute findings. Will discharge to home for continued monitoring. 02/22 00:52 Order name: CBC with Diff; Complete Time: 02:11 cp 02/22 00:52 Order name: Strep; Complete Time: 02:11 cp 02/22 00:52 Order name: CMP; Complete Time: 02:11 cp 02/22 00:52 Order name: [place] Screen Profile; Complete Time: 02:11 cp 02/22 02:02 Order name: Throat Culture EDMS 02/22 00:52 Order name: IV; Complete Time: 02:08 cp 02/22 01:24 Order name: Soft Tissue Neck Wo Contr EDMS Administered Medications: 02:17 Drug: Tylenol 1000 mg Route: PO; jv1 02:47 Follow up: Response: No adverse reaction; Pain is decreased jv1 Disposition: 02/23/20 02:40 Discharged to Home. Impression: Infectious mononucleosis, Acute pharyngitis. - Condition is Stable. - Discharge Instructions: Infectious Mononucleosis, Pharyngitis. - Prescriptions for Ibuprofen 800 mg Oral Tablet - take 1 tablet by ORAL route every 8 hours As needed take with food; 30 tablet. - Medication Reconciliation Form, Thank You Letter, Antibiotic Education, Prescription Opioid Use form. - Follow up: Private Physician; When: 2 - 3 days; Reason: Recheck today's complaints. - Problem is new. - Symptoms have improved. Addendum: 02/24/2020 06:59 Co-signature as Attending Physician, Theodore Vyas MD. m Signatures: Dispatcher [employer] [facility] Sophy Worley RN RN lp1 Pal Ugalde PA PA cp Vicente, Joyce, RN RN jv1 Theodore Vyas MD MD [id number] Corrections: (The following items were deleted from the chart) 02/22 01:24 01:09 CT-SOFT TISSUE NECK W/O CONTR ordered. [facility] EDPA 02:29 00:19 PMHx: HIV; lp1 lp1 03:07 02:40 02/23/2020 02:40 Discharged to Home. Impression: Infectious mononucleosis; Acute jv1 pharyngitis. Condition is Stable. Forms are Medication Reconciliation Form, Thank You Letter, Antibiotic Education, Prescription Opioid Use. Follow up: Private Physician; When: 2 - 3 days; Reason: Recheck today's complaints. Problem is new. Symptoms have improved. cp
--- NOTE | 2020-02-23 02:41 | ER ---
Nurse's Notes [facility] Name: Alfredo Escobar Age: 59 yrs Sex: Male : 1960 Arrival Date: 02/22/2020 Time: 23:50 Bed 23 Private MD: Diagnosis: Infectious mononucleosis;Acute pharyngitis Presentation: 02/22 00:12 Chief complaint: Patient states: Lower jaw pain x 4 days; states "my teeth are getting lp1 bad"; reports low grade fever at home. Coronavirus screen: Client denies travel out of the [place] in the last 14 days. At this time, the client does not indicate any symptoms associated with coronavirus-19. Ebola Screen: No symptoms or risks identified at this time. Risk Assessment: Do you want to hurt yourself or someone else? Patient reports no desire to harm self or others. Onset of symptoms was February 18, 2020. 00:12 Method Of Arrival: Ambulatory lp1 00:12 Acuity: BUCKY 3 lp1 00:21 Initial Sepsis Screen: Does the patient meet any 2 criteria? No. Patient's initial lp1 sepsis screen is negative. Does the patient have a suspected source of infection? No. Patient's initial sepsis screen is negative. Historical: - Allergies: 00:19 Bactrim; lp1 00:19 Iodinated Contrast Media - IV Dye; lp1 00:19 Iodine; lp1 00:19 Keflex; lp1 00:19 Latex, Natural Rubber; lp1 00:19 Levaquin; lp1 00:19 promethazine HCl; lp1 00:19 Toradol; lp1 - Home Meds: 00:19 carvedilol 25 mg Oral tab 2 times per day [Active]; clonazepam 2 mg Oral tab 2 times lp1 per day [Active]; Creon 39426 units Oral 3 times per day [Active]; [place] 10-325 mg Oral tab twice a day [Active]; pantoprazole 40 mg Oral TbEC once daily [Active]; Ventolin HFA 90 mcg/actuation Nebulizer HFAA 2 puffs every 8 hours [Active]; calcipotriene 0.005 % Topical oint 2 times per day [Active]; - PMHx: 00:19 Anxiety; Arthritis; Crohn's; GERD; Pancreatitis; PTSD; lp1 - PSHx: 00:19 None; lp1 - Immunization history:: Adult Immunizations up to date. - Social history:: Smoking status: Patient denies any tobacco usage or history of. Screenin:19 Abuse screen: Denies threats or abuse. Denies injuries from another. Nutritional lp1 screening: No deficits noted. Tuberculosis screening: No symptoms or risk factors identified. Fall Risk None identified. Assessment: 00:36 General: Appears uncomfortable, well groomed, Behavior is calm, cooperative, jv1 appropriate for age. Pain: Complains of pain in jaw Pain does not radiate. Pain currently is 5 out of 10 on a pain scale. Quality of pain is described as aching, pressure. Neuro: Level of Consciousness is awake, alert, obeys commands, Oriented to person, place, time, situation, Appropriate for age Data Virtualization Consultant are equal bilaterally Moves all extremities. Gait is steady, Speech is normal. Cardiovascular: Denies chest pain, Heart tones S1 S2 Capillary refill < 3 seconds Pulses are all present. Respiratory: Airway is patent Respiratory effort is even, unlabored, Respiratory pattern is regular, symmetrical, Breath sounds are clear bilaterally. GI: Abdomen is round non-distended, Bowel sounds present X 4 quads. Abd is soft and non tender. : No signs and/or symptoms were reported regarding the genitourinary system. EENT: No signs and/or symptoms were reported regarding the EENT system. Derm: No signs and/or symptoms reported regarding the dermatologic system. Skin is intact, is healthy with good turgor, Skin is pink, warm \\T\\ dry. Musculoskeletal: No signs and/or symptoms reported regarding the musculoskeletal system. Circulation, motion, and sensation intact. Capillary refill < 3 seconds, Range of motion: intact in all extremities. 00:45 Reassessment: provider in the room with pt. jv1 01:30 Reassessment: Patient appears in no apparent distress at this time. No changes from jv1 previously documented assessment. Patient and/or family updated on plan of care and expected duration. Pain level reassessed. Patient is alert, oriented x 3, equal unlabored respirations, skin warm/dry/pink. 01:40 Reassessment: pt taken to CT. jv1 01:52 Reassessment: Patient and/or family updated on plan of care and expected duration. Pain jv1 level reassessed. Patient is alert, oriented x 3, equal unlabored respirations, skin warm/dry/pink. pt came back from CT. 02:20 Reassessment: provider in the room with pt. jv1 02:30 Reassessment: Patient appears in no apparent distress at this time. No changes from jv1 previously documented assessment. Patient and/or family updated on plan of care and expected duration. Pain level reassessed. Patient is alert, oriented x 3, equal unlabored respirations, skin warm/dry/pink. 03:05 Reassessment: Patient appears in no apparent distress at this time. Patient and/or jv1 family updated on plan of care and expected duration. Pain level reassessed. Patient is alert, oriented x 3, equal unlabored respirations, skin warm/dry/pink. Patient states symptoms have improved. Vital Signs: 00:21 BP 122 / 83; Pulse 67; Resp 18; Temp 98.6(O); Pulse Ox 98% on R/A; Weight 79.38 kg (R); lp1 Pain 5/10; 00:39 BP 126 / 79; Pulse 65; Resp 18; Temp 98.2; Pulse Ox 97% on R/A; Pain 5/10; jv1 01:30 BP 125 / 81; Pulse 66; Resp 18; Temp 98.3; Pulse Ox 97% ; Pain 4/10; jv1 02:30 BP 139 / 75; Pulse 60; Resp 18; Temp 98.8; Pulse Ox 100% ; Pain 4/10; jv1 03:06 BP 128 / 75; Pulse 61; Resp 18; Temp 98.2; Pulse Ox 98% ; Pain 1/10; jv1 ED Course: 02/21 23:50 Patient arrived in ED. bp1 02/22 00:16 Triage completed. lp1 00:16 Arm band placed on right wrist. lp1 00:30 Pal Ugalde PA is PHCP. cp 00:31 Theodore Vyas MD is Attending Physician. cp 00:38 Patient has correct armband on for positive identification. Bed in low position. Call jv1 light in reach. Side rails up X 1. 01:15 Inserted saline lock: 20 gauge in right antecubital area, using aseptic technique. jv1 01:45 Soft Tissue Neck Wo Contr In Process Unspecified. EDMS 02:47 No provider procedures requiring assistance completed. jv1 03:06 IV discontinued, intact, bleeding controlled, No redness/swelling at site. Pressure jv1 dressing applied. Administered Medications: 02:17 Drug: Tylenol 1000 mg Route: PO; jv1 02:47 Follow up: Response: No adverse reaction; Pain is decreased jv1 Outcome: 02:40 Discharge ordered by . cp 03:06 Discharged to home ambulatory. jv1 03:06 Condition: stable 03:06 Discharge instructions given to patient, Instructed on discharge instructions, follow up and referral plans. medication usage, Demonstrated understanding of instructions, follow-up care, medications. 03:07 Patient left the ED. jv1 Signatures: Dispatcher [employer] EDMS Sophy Worley RN RN lp1 Pal Ugalde, ANUJ PA Felicia Dong RN RN jv1 Tisha Sanford Corrections: (The following items were deleted from the chart) 02:29 00:19 PMHx: HIV; lp1 lp1
[2020-02-23 03:19] VITALS: BP 128/75; TEMP 98.2; O2SAT 98
--- NOTE | 2020-02-23 11:19 | RAD REPORT ---
EXAM DESCRIPTION: CT - Soft Tissue Neck Wo Contr - 02/23/2020 4:53 am EXAM DESCRIPTION: Soft Tissue Neck Wo Contr CLINICAL HISTORY: 59 years Male, dysphagia, pain COMPARISON: None Available. TECHNIQUE: CT of the neck soft tissues obtained without contrast without IV contrast. Evaluation of the soft tissues and vasculature is suboptimal due to lack of IV contrast. FINDINGS: Soft tissue: No abnormalities of the parapharyngeal space, pharyngeal mucosal space, or retropharyngeal space. The tongue base is symmetric. The fossa of Rosenmuller are clear. Epiglottis and vallecula are unremarkable. No definite abnormalities of the visceral space. Thyroid gland is unremarkable. No abnormalities of the submandibular or parotid glands. No definite cervical lymphadenopathy. Bones: Mild degenerative endplate spondylosis of the visualized cervical spine. No acute abnormality identified. Visualized paranasal sinuses and mastoid air cells are well aerated. No facial bone fract ure identified. Visualized skull base is intact. IMPRESSION: 1. No acute inflammatory or obstructive process identified. This exam was performed according to our departmental dose-optimization program, which includes autom ated exposure control, adjustment of the mA and/or kV according to patient size and/or use of iterati ve reconstruction technique. Electronically signed by: Gerardo Recio 02/23/2020 2:01 AM CDT Due to temporary technical issues with the PACS/Fluency reporting system, reports are being signed by the in house radiologist without review as a courtesy to ensure prompt reporting. The interpreting r adiologist is fully responsible for the content of the report.
== END 2020-02-23 03:07 | disposition home or self-care (01) ==
LOC: ER 23:47
DX: B27.90 Infectious mononucleosis, unspecified without complication (principal); F43.10 Post-traumatic stress disorder, unspecified; F41.9 Anxiety disorder, unspecified; Z88.1 Allergy status to other antibiotic agents; Z88.5 Allergy status to narcotic agent; Z88.8 Allergy status to other drugs, medicaments and biological substances; Z91.040 Latex allergy status; Z91.041 Radiographic dye allergy status
CPT/HCPCS: 36415; 70490; 80053; 85025; 86308; 87070; 87081; 99284

== ENCOUNTER 2020-02-26 22:37 | Emergency (ER) | payer OTHER ==
--- OUTSIDE RECORDS SUMMARY | 2020-02-26 22:39 | XMS REPORT | Continuity of Care Document ---
:1960 Author Organization [employer] Care Team Providers Name Role Phone [employer] Unavailable Un available Problems Problem Status Onset [...] Hydrocodone Refill(s) Bitartrate 10 MG Oral Tablet [[place] 10/325] Clonazepam 2 MG 2 mg = [...] Comments Source Systolic (mm Hg) 143 03/28/2019 [facility] Penny ro Diastolic (mm Hg) 82 03/28/2019 [facility] Ne uro Heart Rate 53 03/28/2019 [facility] Neuro Respitory Rate 16 03/28/2019 [facility] Neuro Height 172.72 cm 03/28/2019 [facility] Neuro Weight 89.091 03/28/2019 [facility] Neuro BMI Calculated 29.86 03/28/2019 [facility] Neuro BMI Calculated 30.47 09/26/2018 [facility] Neuro Weight 90.909 09/26/2018 [facility] Neuro Height 172.72 cm 09/26/2018 [facility] Neuro Heart Rate 58 09/26/2018 [facility] Neuro Respitory Rate 16 09/26/2018 [facility] Neuro Systolic (mm Hg) 159 09/26/2018 [facility] Penny ro Diastolic (mm Hg) 88 09/26/2018 [facility] Ne uro Encounters Location Location Encounter Encounter Reason Attending ADM MA Stat us Source Details Type Number For Provider Date Date Visit MNA Outpatient [id number] Pio 09/26 09/27 [facility] Neurology [facility] Neuro [place] Outpatient [id number] Pio 10/31 Active [facility] MNA Ambulatory [id number] P[place] 10/31 10/31 [facility] Neurology Pre-Reg [facility] Neuro [place] Outpatient [id number] Pio 03/28 [facility] [place] MNA Outpatient [id number] P[place] 03/28 03/29 [facility] Neurology [facility] Neuro [place] MNA Outside [id number] 04/01 04/03 [facility] Neurology Medical /2018 Neuro [place] Records Outpatient [id number] P[place] 04/11 Active [facility] [place] M[facility] Ambulatory [id number] [place] 04/11 04/11 [facility] Neurology Pre-Reg [facility] Neuro [place] MNA Outside [id number] 04/18 04/20 [facility] Neurology Medical Neuro [place] Records Procedures No Data Provided for This Section Assessment and Plan No Data Provided for This Section Plan of Care No Data Provided for This Section Social History Social History Date Source Social History TypeResponse 03/28/2019 [facility] Neur o Smoking Status Former smoker; Type: Cigarettes; Exposur e to Tobacco Smoke None; Cigarette Smoking Last 365 Days No; Reg Smoking Cessation Counseling No entered on: 03/28/19 Family History No Data Provided for This Section Advance Directives No Data Provided for This Section Functional Status No Data Provided for This Section
--- OUTSIDE RECORDS SUMMARY | 2020-02-26 22:40 | XMS REPORT | Continuity of Care Document ---
:1960 Author Organization [facility] t Address [address] [place] [address] Care Team Providers Name Role Phone Theo [...] - initial initial Memoria encounter encounter l [facility] Arthropath Arthropath Problem Active [facility] psoriasis Lucio raiza l [facility] Acute Acute Problem Active [...] [facility] - cataplexy cataplexy Lucio raiza l [facility] Disc Disc Problem Active [facility] Other Other Problem Active [facility] chronic chronic [facility] - pancreatit pancreatit Me moria is is l [facility] Gastro-eso Gastro-eso Problem Active [...] Martha kes - adult adult Memoria l [facility] Nausea Nausea Problem [facility] Wheezing Wheezing Problem [facility] Panic Panic Problem Active [facility] disorder disorder [facility] - with with Memoria agoraphobi agoraphobi l a a [facility] Hospital Hospital Problem Active [facility] discharge discharge Luke s - follow-up follow-up Lucio raiza l [facility] BPH loc BPH loc Problem Active [facility] w/o ur w/o ur [facility] - obs/LUTS obs/LUTS Memori a l [facility] Hypertensi Problem Active 2019-04-22 M emoria ve 01:06:38 l disorder, [place] systemic Hypertensi arterial ve (disorder) disorder, systemic arterial (disorder) Active Problem 04/22/2019 [facility] Memory Problem Active 2019-04-22 Memor ia impairment 01:06:38 l (finding) Memory Maggy nn impairment (finding) Active Problem 04/22/2019 [facility] Neck pain Problem Active 2019-04-22 Me moria (finding) 01:06:38 l Neck [place] pain (finding) Active Problem 04/22/2019 [facility] Paresthesi Problem Active 2019-04-22 M emoria a 01:06:38 l (finding) [place] Paresthesi a (finding) Active Problem 04/22/2019 [facility] [...] [facility] Reaction [facility] Phenerga Adverse Active hives [facility] n Reaction [facility] Bactrim Adverse Active rash [facility] DS Reaction [facility] Levaquin Adverse Active stops [facility] Reaction breathing [facility] Levaquin Levaquin Active Memori a roberto Gordon Social History Smoking Status Start Date Stop Date Source Social History 2019-03-28 18:18:16 2019-03-28 18:18:16 [facility] Medications Ordered Filled Start Stop Current Ordering [...] ermann Bitartrate 00 10 MG Oral Tablet [Nipomo 10/325] Clonazepam Yes 2 mg = 1 Mem oria 2 MG Oral 4-24 tab, PO, l Tablet 19:00: BID, # 60 Jun n [Klonopin] 00 tab, 0 Refill(s) Aspirin 81 Aspirin 81 Yes Esthela [address] [facility] 4-12 [place] - 00:[facility]: [facility] 00 [facility] Albuterol Albuterol 2014-06 Yes Esthela [address] [facility] Sulfate HFA Sulfate HFA 1-25 [place] [facility] - 00:[facility]: Memoria 00 [facility] Clonazepam Clonazepam Yes Esthela TAKE [address] [facility] [place] TABLET BY [facility] - MOUTH Memoria TWICE A l DAY [facility] Carvedilol Carvedilol Yes Esthela take [address] [facility] [place] tablet by [facility] - mouth [facility]oria twice a l day [facility] Famotidine Famotidine Yes Esthela [address] [facility] Protonix Protonix Yes Esthela [address] [facility]ics Dicyclomine Dicyclomine Yes Esthela [address] HCl HCl [facility] Ventolin Ventolin Yes Esthela [address] HFA HFA [facility] Valsartan Valsartan Yes Esthela [address] [facility] Hydrocodone Hydrocodone Yes Esthela (Schedule [facility] -Acetaminop -Acetaminop [place] [facility]) [facility] - hen hen TK 1 T PO Memoria TID l [facility] Creon Cret[place] 2019- No Esthela take by [facility] 07[facility]21 [place] mouth 1 [facility] - 00:00 capsule 3 Memoria :00 times a l day as Outpati directed ent Clinics Vital Signs Vital Name Observation Time Observation Value Comments Source Systolic (mm Hg) 2019-03-28 18:17:00 Lucio rial Evan Diastolic (mm Hg) 2019-03-28 18:17:00 Mem orial [place] Heart Rate 2019-03-28 18:17:00 [facility] [place] Respitory Rate 2019-03-28 18:17:00 Memori al [place] Height 2019-03-28 18:17:00 172.72 cm Memorial [place] Weight 2019-03-28 18:17:00 Memorial [place] BMI Calculated 2019-03-28 18:17:00 Memori al [place] BMI Calculated 2018-09-26 18:51:00 Memori al [place] Weight 2018-09-26 18:51:00 Memorial [place] Height 2018-09-26 18:51:00 172.72 cm Memorial [place] Heart Rate 2018-09-26 18:51:00 Memorial [place] Respitory Rate 2018-09-26 18:51:00 Memori al [place] Systolic (mm Hg) 2018-09-26 18:51:00 Lucio rial Evan Diastolic (mm Hg) 2018-09-26 18:51:00 Mem orial [place] Procedures This patient has no known procedures. Encounters Start End Encounter Admission Attending Care Care Encounter Source Date/Time Date/Time Type Type Clinicians Facility Department ID 2019-07-21 2019-07-21 Emergency [facility] [id number] 18:06:23 22:09:00 Camila Theo Layton [id number] [place] [id number] [place] [id number] 2019-07-15 2019-07-15 Outpatient Malena Preston [id number] [facility] 15:01:00 15:01:00 t Specialty/U Martha kes - Specialty rology Memori a /Urology Clinic l Clinic Outpati ent Clinics 2019-07-09 2019-07-09 Outpatient Malena Guyt [id number] [facility] 16:46:00 16:46:00 t Specialty/U Martha kes - Specialty rology Memori a /Urology Clinic l Clinic Outpati ent Clinics 2019-07-08 2019-07-08 Outpatient Malena Guyt [id number] 14:51:00 14:51:00 t Specialty/U Martha kes - [facility] Outpat[facility] ent Clinics 2019-07-08 2019-07-08 [facility] [id number] [address] 08:00:00 08:00:00 t Specialty/U Martha kes - Specialty ro[facility]y [facility] Clinic Outpati ent Clinics 2019-07-04 2019-07-04 [facility] [id number] 13:00:00 13:00:00 t Specialty/U Martha kes - Specialty rology [facility] a /Urology Clinic l Clinic Outpati ent Clinics 2019-07-02 2019-07-02 [facility] [id number] 14:32:00 14:32:00 t [facility] Medicine Outpati ent Clinics 2019-06-27 2019-06-27 [facility] [id number] 14:40:00 14:40:00 t [facility] Outpati ent Clinics 2019-06-03 2019-06-03 [facility] [id number] 11:17:00 11:17:00 t [facility] Outpati ent Clinics 2019-04-18 2019-04-19 Outpatient MHMISCHER MHMISCHER [id number] 12:37:59 23:59:59 2019-04-11 2019-04-11 Outpatient MARIAH ArmstrongSCHER [id number] 15:30:00 15:30:00 P[place] 03 Mau 2019-04-09 2019-04-09 [facility] [id number] 15:20:00 15:20:00 t [facility] Outpati ent Clinics 2019-04-01 2019-04-02 Outpatient MHMISCHER MHMISCHER [id number] 08:58:44 23:59:59 2019-03-28 2019-03-28 Outpatient AZAR ArmstrongSCHLATHA MHMISCHER [id number] 13:00:00 23:59:59 [place] 2019-02-19 2019-02-19 [facility] [id number] 14:40:00 14:40:00 [facility] Medicine Outpati ent Clinics 2018-12-11 2018-12-11 [facility] [id number] [address] 11:21:00 11:21:00 [facility] Medicine Outpati ent Clinics 2018-11-19 2018-11-19 [facility] [id number] 14:40:00 14:40:00 [facility] Medicine Outpati ent Clinics 2018-10-31 2018-10-31 Outpatient AZAR ArmstrongSCHER MISCHER [id number] 13:45:00 13:45:00 [place] 2018-09-26 2018-09-26 Outpatient AZAR ArmstrongSCHLATHA MISCHER [id number] 13:30:00 23:59:59 [place] 2018-09-17 2018-09-17 [facility] [id number] 16:00:00 16:00:00 [facility] Medicine Outpati ent Clinics 2018-08-02 2018-08-02 [facility] [id number] [address] 16:07:00 16:07:00 [employer] [address] [place] [facility] Medicine Outpati ent Clinics 2018-08-02 2018-08-02 [facility] [id number] 16:05:00 16:05:00 [employer] [place] [facility] l Medicine Outpati ent Clinics 2018-06-18 2018-06-18 [facility] [id number] 16:00:00 16:00:00 [facility] Medicine Outpati ent Clinics 2018-01-18 2018-01-18 [facility] [id number] 14:00:00 14:00:00 [facility] l Medicine Outpati ent Clinics 2017-09-19 2017-09-19 [facility] [id number] 09:33:00 09:33:00 [facility] Outpati ent Clinics 2017-09-14 2017-09-14 Outpatient Malena Preston [id number] 13:00:00 13:00:00 [facility] 2017-09-12 2017-09-12 Outpatient Malena Preston [id number] 11:05:00 11:05:00 [facility] 2017-08-29 2017-08-29 Outpatient Malena Preston [id number] 15:30:00 15:30:00 [facility] Results This patient has no known results.
[2020-02-27] MEDS ORDERED: NA CHLORIDE 0.9% 1,000 ML ONE (00:32)
[2020-02-27] MEDS ORDERED: MAGNE/ALUM HYDROXD 30 ML UCUP ONE (00:32)
[2020-02-27] MEDS ORDERED: LIDOCAINE VISCOUS 2% SOLN 15 ML UDC ONE (00:32)
[2020-02-27] MEDS ORDERED: FAMOTIDINE 20 MG/2 ML VIAL IV ONE (00:32)
[2020-02-27 00:58] LABS: Absolute Lymphocytes (CBC) 2.2 K/uL (0.7-4.9); Basophils % 0.4 % (0-1.3); Hematocrit 43.9 % (39.6-49.0); Lymphocytes % 25.1 % (15.3-44.8); MPV 8.4 fL (7.6-11.3); RBC Red Blood Cell Count 4.84 M/uL (4.33-5.43)
[2020-02-27 01:09] LABS: ALT/SGPT 21 U/L (12-78); AST/SGOT 13 U/L (15-37); Albumin 3.7 g/dL (3.4-5.0); Alkaline Phosphatase 49 U/L (45-117); BUN Blood Urea Nitrogen 17 mg/dL (7-18); Bicarbonate 31 mmol/L (21-32); Bilirubin Direct 0.1 mg/dL (0-0.2); Bilirubin Total 0.6 mg/dL (0.2-1.0); Glucose Level 78 mg/dL (74-106); Lipase 137 U/L (73-393); Magnesium 2.2 mg/dL (1.8-2.4); NT PRO-BNP 83 pg/mL (<125); Potassium 4.3 mmol/L (3.5-5.1); Protein, Total 7.1 g/dL (6.4-8.2); Sodium Level 141 mmol/L (136-145); Troponin (Emerg Dept Use Only) < 0.02 ng/mL (0.0-0.045)
--- NOTE | 2020-02-27 01:52 | ER ---
Nurse's Notes [facility] Name: Alfredo Escobar Age: 59 yrs Sex: Male : 1960 Arrival Date: 02/26/2020 Time: 22:38 Bed 23 Private MD: Diagnosis: Abdominal tenderness;Gastritis, unspecified;Dental caries Presentation: 02/25 22:45 Chief complaint: Patient states: RUQ, LUQ, Epigastric pain that began about 2-4 hours sg ago, reports pain comes and goes, it is a 10/10 at the worst, pt denies chest pain, reports nausea, denies fever/vomiting/diarrhea, pt reports having taken his pain medication from pain management, reports it was a [place] but has not helped at this time. Coronavirus screen: Client denies travel out of the [place] in the last 14 days. nausea. Ebola Screen: Patient negative for fever greater than or equal to 101.5 degrees Fahrenheit, and additional compatible Ebola Virus Disease symptoms Patient denies exposure to infectious person. Patient denies travel to an Ebola-affected area in the 21 days before illness onset. No symptoms or risks identified at this time. Initial Sepsis Screen: Does the patient meet any 2 criteria? No. Patient's initial sepsis screen is negative. Does the patient have a suspected source of infection? Yes: Acute abdominal pain. Risk Assessment: Do you want to hurt yourself or someone else? Patient reports no desire to harm self or others. Onset of symptoms was February 26, 2020. Care prior to arrival: None. Transition of care: patient was not received from another setting of care. 22:45 Method Of Arrival: Ambulatory sg 22:45 Acuity: BUCKY 3 sg Historical: - Allergies: 22:48 Bactrim; sg 22:48 Iodinated Contrast Media - IV Dye; sg 22:48 Iodine; sg 22:48 Keflex; sg 22:48 Latex, Natural Rubber; sg 22:48 Levaquin; sg 22:48 promethazine HCl; sg 22:48 Toradol; sg - PMHx: 22:48 Anxiety; Arthritis; Crohn's; GERD; Pancreatitis; PTSD; sg - PSHx: 22:48 None; sg - Immunization history:: Adult Immunizations up to date. - Social history:: Smoking status: Patient denies any tobacco usage or history of. - Family history:: not pertinent. Screenin/24 00:57 Abuse screen: Denies threats or abuse. Denies injuries from another. Nutritional mg2 screening: No deficits noted. Tuberculosis screening: No symptoms or risk factors identified. Fall Risk IV access (20 points). Assessment: 00:55 General: Appears in no apparent distress. comfortable, Behavior is anxious. Pain: mg2 Complains of pain in abdomen. Neuro: Level of Consciousness is awake, alert, obeys commands, Oriented to person, place, time, situation. Cardiovascular: Capillary refill < 3 seconds Patient's skin is warm and dry. Respiratory: Airway is patent Respiratory effort is even, unlabored, Respiratory pattern is regular, symmetrical. EENT: No signs and/or symptoms were reported regarding the EENT system. Derm: Skin is intact, is healthy with good turgor, Skin is pink, warm \T\ dry. normal. Musculoskeletal: Circulation, motion, and sensation intact. Capillary refill < 3 seconds. 00:56 GI: Bowel sounds present X 4 quads. Abd is soft and non tender. mg2 Vital Signs: 02/25 22:45 BP 164 / 72; Pulse 75; Resp 16; Temp 98.4; Pulse Ox 100% on R/A; Pain 4/10; sg 02/26 00:57 BP 138 / 82; Pulse 70; Resp 18; Pulse Ox 100% on R/A; mg2 ED Course: 02/25 22:38 Patient arrived in ED. am2 22:45 Arm band placed on. sg 22:48 Triage completed. sg 23:31 Kirit Crespo RN is Primary Nurse. mg2 23:38 Pal Ferreira MD is Attending Physician. mack 02/26 00:35 Inserted saline lock: 20 gauge in right antecubital area, using aseptic technique. mg2 Blood collected. 00:56 XRAY Chest (1 view) In Process Unspecified. EDMS 00:56 No provider procedures requiring assistance completed. mg2 00:57 Patient has correct armband on for positive identification. quality assurance monitor final on. Pulse mg2 ox on. NIBP on. 01:51 Nirmala Concepcion MD is Referral Physician. mack 02:20 IV discontinued, intact, bleeding controlled, No redness/swelling at site. Pressure mg2 dressing applied. 02:24 Primary Nurse role handed off by Kirit Crespo, MARY sg Administered Medications: 00:49 Drug: NS 0.9% 1000 ml Route: IV; Rate: 1 bolus; Site: right antecubital; mg2 00:49 Drug: GI Cocktail without - (Maalox Suspension 30 ml, Lidocaine Liquid 2 % 15 mg2 ml) Route: PO; 00:50 Not Given (Patient Refused): Pepcid 20 mg IVP once mg2 02:37 Drug: Amoxicillin 500 mg Route: PO; sg 02:43 Follow up: Response: No adverse reaction; Medication administered at discharge. mg2 Outcome: 01:51 Discharge ordered by . mack 02:22 Patient left the ED. sg 02:38 Patient left the ED. sg 02:38 Discharged to home ambulatory, with family. mg2 02:38 Condition: stable 02:38 Discharge instructions given to patient, Instructed on discharge instructions, follow mg2 up and referral plans. medication usage, Demonstrated understanding of instructions, follow-up care, medications, Prescriptions given X 3. 02:45 Patient left the ED. mg2 Signatures: Dispatcher [employer] EDMS Abdias Hardy RN RN sg Anderson, Corey, MD MD cha Moreno, Amanda Kirit Chopra RN RN mg2 Corrections: (The following items were deleted from the chart) 00:56 00:55 GI: Abdomen is distended, Bowel sounds present X 4 quads. Abd is rigid X 4 quads. mg2 mg2 00:56 00:55 : Urine is cloudy, mg2 mg2
--- NOTE | 2020-02-27 01:52 | EDPHYS ---
Physician Documentation [facility] Name: Alfredo Escobar Age: 59 yrs Sex: Male : 1960 Arrival Date: 02/26/2020 Time: 22:38 Bed 23 Private MD: ED Physician Pal Ferreira HPI: 02/25 23:55 This 59 yrs old Male presents to ER via Ambulatory with complaints of mack Abdominal Pain. 23:55 The patient presents with abdominal pain in the epigastric area, in the upper abdomen. mack Onset: The symptoms/episode began/occurred 2 day(s) ago. The symptoms do not radiate. Associated signs and symptoms: none. The symptoms are described as crampy. Modifying factors: The symptoms are alleviated by nothing, the symptoms are aggravated by nothing. Severity of pain: At its worst the pain was mild moderate in the emergency department the pain has improved mildly. The patient has not experienced similar symptoms in the past. Historical: - Allergies: 22:48 Bactrim; sg 22:48 Iodinated Contrast Media - IV Dye; sg 22:48 Iodine; sg 22:48 Keflex; sg 22:48 Latex, Natural Rubber; sg 22:48 Levaquin; sg 22:48 promethazine HCl; sg 22:48 Toradol; sg - PMHx: 22:48 Anxiety; Arthritis; Crohn's; GERD; Pancreatitis; PTSD; sg - PSHx: 22:48 None; sg - Immunization history:: Adult Immunizations up to date. - Social history:: Smoking status: Patient denies any tobacco usage or history of. - Family history:: not pertinent. ROS: 23:55 Constitutional: Negative for fever, chills, and weight loss, Eyes: Negative for injury, mack pain, redness, and discharge, ENT: Negative for injury, pain, and discharge, Neck: Negative for injury, pain, and swelling, Cardiovascular: Negative for chest pain, palpitations, and edema, Respiratory: Negative for shortness of breath, cough, wheezing, and pleuritic chest pain, Back: Negative for injury and pain, : Negative for injury, bleeding, discharge, and swelling, MS/Extremity: Negative for injury and deformity, Skin: Negative for injury, rash, and discoloration, Neuro: Negative for headache, weakness, numbness, tingling, and seizure, Psych: Negative for depression, anxiety, suicide ideation, homicidal ideation, and hallucinations, Allergy/Immunology: Negative for hives, rash, and allergies, Endocrine: Negative for neck swelling, polydipsia, polyuria, polyphagia, and marked weight changes, Hematologic/Lymphatic: Negative for swollen nodes, abnormal bleeding, and unusual bruising. 23:55 Abdomen/GI: Positive for abdominal pain, of the epigastric area, right upper quadrant and left upper quadrant. Exam: 23:55 Constitutional: This is a well developed, well nourished patient who is awake, alert, mack and in no acute distress. Head/Face: Normocephalic, atraumatic. Eyes: Pupils equal round and reactive to light, extra-ocular motions intact. Lids and lashes normal. Conjunctiva and sclera are non-icteric and not injected. Cornea within normal limits. Periorbital areas with no swelling, redness, or edema. ENT: Nares patent. No nasal discharge, no septal abnormalities noted. Tympanic membranes are normal and external auditory canals are clear. Oropharynx with no redness, swelling, or masses, exudates, or evidence of obstruction, uvula midline. Mucous membranes moist. Neck: Trachea midline, no thyromegaly or masses palpated, and no cervical lymphadenopathy. Supple, full range of motion without nuchal rigidity, or vertebral point tenderness. No Meningismus. Chest/axilla: Normal chest wall appearance and motion. Nontender with no deformity. No lesions are appreciated. Cardiovascular: Regular rate and rhythm with a normal S1 and S2. No gallops, murmurs, or rubs. Normal PMI, no JVD. No pulse deficits. Respiratory: Lungs have equal breath sounds bilaterally, clear to auscultation and percussion. No rales, rhonchi or wheezes noted. No increased work of breathing, no retractions or nasal flaring. Abdomen/GI: Soft, non-tender, with normal bowel sounds. No distension or tympany. No guarding or rebound. No evidence of tenderness throughout. Back: No spinal tenderness. No costovertebral tenderness. Full range of motion. Male : Normal genitalia with no discharge or lesions. Skin: Warm, dry with normal turgor. Normal color with no rashes, no lesions, and no evidence of cellulitis. MS/ Extremity: Pulses equal, no cyanosis. Neurovascular intact. Full, normal range of motion. Neuro: Awake and alert, GCS 15, oriented to person, place, time, and situation. Cranial nerves II-XII grossly intact. Motor strength 5/5 in all extremities. Sensory grossly intact. Cerebellar exam normal. Normal gait. Psych: Awake, alert, with orientation to person, place and time. Behavior, mood, and affect are within normal limits. 02/26 00:34 ECG was reviewed by the Attending Physician. [facility] Vital Signs: 02/25 22:45 BP 164 / 72; Pulse 75; Resp 16; Temp 98.4; Pulse Ox 100% on R/A; Pain 4/10; sg 02/26 00:57 BP 138 / 82; Pulse 70; Resp 18; Pulse Ox 100% on R/A; mg2 MDM: 02/25 23:38 Patient medically screened. [facility] 02/26 00:39 Differential diagnosis: cholecystitis, Cholelithiasis, diverticulitis, gastritis, mack gastroesophageal reflux disease, non-specific abd pain, pancreatitis, Pyelonephritis, urinary tract infection. Data reviewed: vital signs, nurses notes, lab test result(s), EKG, radiologic studies, CT scan, plain films. 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 Test interpretation: by ED physician or midlevel provider: ECG, plain radiologic studies. Counseling: I had a detailed discussion with the patient and/or guardian regarding: the historical points, exam findings, and any diagnostic results supporting the discharge/admit diagnosis, lab results, radiology results. 02/25 23:54 Order name: Basic Metabolic Panel; Complete Time: 01:50 [facility] 02/25 23:54 Order name: CBC with Diff; Complete Time: 01:50 [facility] 02/25 23:54 Order name: LFT's; Complete Time: 01:50 [facility] 02/25 23:54 Order name: Magnesium; Complete Time: 01:50 [facility] 02/25 23:54 Order name: NT PRO-BNP; Complete Time: 01:50 [facility] 02/25 23:54 Order name: Troponin (emerg Dept Use Only); Complete Time: 01:50 [facility] 02/25 23:54 Order name: XRAY Chest (1 view) [facility] 02/25 23:54 Order name: EKG; Complete Time: 23:55 [facility] 02/25 23:54 Order name: Cardiac monitoring; Complete Time: 00:49 [facility] 02/25 23:54 Order name: Lipase; Complete Time: : [facility] 02/25 23:54 Order name: EKG - Nurse/Tech; Complete Time: 00:50 [facility] 02/25 23:54 Order name: IV Saline Lock; Complete Time: 00:50 [facility] 02/25 23:54 Order name: Labs collected and sent; Complete Time: 00: [facility] 02/25 23:54 Order name: O2 Per Protocol; Complete Time: 00: [facility] 02/25 23:54 Order name: O2 Sat Monitoring; Complete Time: 00: [facility] EC:34 Rate is 61 beats/min. Rhythm is regular. QRS [place] is Normal. AR interval is normal. QRS mack interval is normal. QT interval is normal. No Q waves. T waves are Normal. No ST changes noted. Clinical impression: Normal ECG and No evidence of ischemia. Interpreted by me. Reviewed by me. Administered Medications: 00:49 Drug: NS 0.9% 1000 ml Route: IV; Rate: 1 bolus; Site: right antecubital; mg2 00:49 Drug: GI Cocktail without - (Maalox Suspension 30 ml, Lidocaine Liquid 2 % 15 mg2 ml) Route: PO; 00:50 Not Given (Patient Refused): Pepcid 20 mg IVP once mg2 02:37 Drug: Amoxicillin 500 mg Route: PO; sg 02:43 Follow up: Response: No adverse reaction; Medication administered at discharge. mg2 Disposition: 02/27/20 01:51 Discharged to Home. Impression: Abdominal tenderness, Gastritis, unspecified, Dental caries. - Condition is Stable. - Discharge Instructions: Abdominal Pain, Adult, Nausea and Vomiting, Adult, Nausea and Vomiting, Adult, [id number], Abdominal Pain, Adult, Cuww-cl-Degt. - Prescriptions for Bentyl 20 mg Oral Tablet - take 1 tablet by ORAL route every 6 hours As needed; 20 tablet. Pepcid 20 mg Oral Tablet - take 1 tablet by ORAL route every 12 hours for 10 days; 20 tablet. Zofran 4 mg Oral Tablet - take 1 tablet by ORAL route every 12 hours As needed; 20 tablet. Amoxicillin 500 mg Oral Capsule - take 1 capsule by ORAL route every 8 hours for 10 days; 30 tablet. - Medication Reconciliation Form, Thank You Letter, Antibiotic Education, Prescription Opioid Use form. - Follow up: Private Physician; When: 2 - 3 days; Reason: Recheck today's complaints, Continuance of care, Re-evaluation by your physician. Follow up: Nirmala Concepcion; When: 2 - 3 days; Reason: Recheck today's complaints, Continuance of care, Re-evaluation by your physician. - Problem is new. - Symptoms have improved. Signatures: Dispatcher [employer] EDMS Abdias Hardy RN RN Pal Bond MD MD cha Gardose, Michele, RN RN mg2 Corrections: (The following items were deleted from the chart) 02:22 01:51 02/27/2020 01:51 Discharged to Home. Impression: Abdominal tenderness; Gastritis, sg unspecified. Condition is Stable. Discharge Instructions: Abdominal Pain, Adult, Nausea and Vomiting, Adult, Nausea and Vomiting, Adult, Flvt-ve-Hdfy, Abdominal Pain, Adult, [id number]-[id number]. Prescriptions for Bentyl 20 mg Oral Tablet - take 1 tablet by ORAL route every 6 hours As needed; 20 tablet, Pepcid 20 mg Oral Tablet - take 1 tablet by ORAL route every 12 hours for 10 days; 20 tablet, Zofran 4 mg Oral Tablet - take 1 tablet by ORAL route every 12 hours As needed; 20 tablet. and Forms are Medication Reconciliation Form, Thank You Letter, Antibiotic Education, Prescription Opioid Use. Follow up: Private Physician; When: 2 - 3 days; Reason: Recheck today's complaints, Continuance of care, Re-evaluation by your physician. Follow up: Nirmala Concepcion; When: 2 - 3 days; Reason: Recheck today's complaints, Continuance of care, Re-evaluation by your physician. Problem is new. Symptoms have improved. mack 02:29 02:22 02/27/2020 01:51 Discharged to Home. Impression: Abdominal tenderness; Gastritis, mack unspecified. Condition is Stable. Discharge Instructions: Abdominal Pain, Adult, Nausea and Vomiting, Adult, Nausea and Vomiting, Adult, [id number]-gi-[id number], Abdominal Pain, Adult, Nnms-ml-Hmyx. Prescriptions for Bentyl 20 mg Oral Tablet - take 1 tablet by ORAL route every 6 hours As needed; 20 tablet, Pepcid 20 mg Oral Tablet - take 1 tablet by ORAL route every 12 hours for 10 days; 20 tablet, Zofran 4 mg Oral Tablet - take 1 tablet by ORAL route every 12 hours As needed; 20 tablet. and Forms are Medication Reconciliation Form, Thank You Letter, Antibiotic Education, Prescription Opioid Use. Follow up: Private Physician; When: 2 - 3 days; Reason: Recheck today's complaints, Continuance of care, Re-evaluation by your physician. Follow up: Nirmala Concepcion; When: 2 - 3 days; Reason: Recheck today's complaints, Continuance of care, Re-evaluation by your physician. Problem is new. Symptoms have improved. sg 02:38 02:29 02/27/2020 01:51 Discharged to Home. Impression: Abdominal tenderness; Gastritis, sg unspecified; Dental caries. Condition is Stable. Discharge Instructions: Abdominal Pain, Adult, Nausea and Vomiting, Adult, Nausea and Vomiting, Adult, Npfl-sg-Tatk, Abdominal Pain, Adult, Bsun-aj-Jiwz. Prescriptions for Bentyl 20 mg Oral Tablet - take 1 tablet by ORAL route every 6 hours As needed; 20 tablet, Pepcid 20 mg Oral Tablet - take 1 tablet by ORAL route every 12 hours for 10 days; 20 tablet, Zofran 4 mg Oral Tablet - take 1 tablet by ORAL route every 12 hours As needed; 20 tablet. and Forms are Medication Reconciliation Form, Thank You Letter, Antibiotic Education, Prescription Opioid Use. Follow up: Private Physician; When: 2 - 3 days; Reason: Recheck today's complaints, Continuance of care, Re-evaluation by your physician. Follow up: Nirmala Concepcion; When: 2 - 3 days; Reason: Recheck today's complaints, Continuance of care, Re-evaluation by your physician. Problem is new. Symptoms have improved. [facility] 02:45 02:38 02/27/2020 01:51 Discharged to Home. Impression: Abdominal tenderness; Gastritis, mg2 unspecified; Dental caries. Condition is Stable. Discharge Instructions: Abdominal Pain, Adult, Nausea and Vomiting, Adult, Nausea and Vomiting, Adult, Tcql-[id number], Abdominal Pain, Adult, Gcau-up-Nqqw. Prescriptions for Bentyl 20 mg Oral Tablet - take 1 tablet by ORAL route every 6 hours As needed; 20 tablet, Pepcid 20 mg Oral Tablet - take 1 tablet by ORAL route every 12 hours for 10 days; 20 tablet, Zofran 4 mg Oral Tablet - take 1 tablet by ORAL route every 12 hours As needed; 20 tablet, Amoxicillin 500 mg Oral Capsule - take 1 capsule by ORAL route every 8 hours for 10 days; 30 tablet. and Forms are Medication Reconciliation Form, Thank You Letter, Antibiotic Education, Prescription Opioid Use. Follow up: Private Physician; When: 2 - 3 days; Reason: Recheck today's complaints, Continuance of care, Re-evaluation by your physician. Follow up: Nirmala Concepcion; When: 2 - 3 days; Reason: Recheck today's complaints, Continuance of care, Re-evaluation by your physician. Problem is new. Symptoms have improved. sg
[2020-02-27 02:29] VITALS: TEMP 98.4; O2SAT 100
[2020-02-27 02:30] VITALS: BP 138/82
[2020-02-27] MEDS ORDERED: AMOXICILLIN TRIHYDR 250 MG CAP ONE (02:42)
--- NOTE | 2020-02-27 08:36 | RAD REPORT ---
EXAM DESCRIPTION: RAD - Chest Single View - 02/27/2020 12:56 am CLINICAL HISTORY: ABDOMINAL DISTENTION COMPARISON: October 12, 2019 TECHNIQUE: AP portable chest image was obtained 02/27/2020 12:56 am . FINDINGS: No new mass or consolidation. Interstitial pattern is similar to comparison. Left hilar an d left lung parenchymal granulomatous calcifications again noted. Interstitial pattern is accentuated slightly due to a more shallow inspiration. Heart and vasculature are normal. No measurable pleural effusion and no pneumothorax. No acute bony abnormality seen. No acute aortic findings suspected. IMPRESSION: No acute cardiopulmonary process. No significant change from comparison.
--- NOTE | 2020-02-27 08:43 | EKG ---
Test Date: 2020-02-27 Test Time: 00:22:56 Puppy Sitter: MORE MEASUREMENT RESULTS: Intervals: Rate: 61 IN: 148 QRSD: 84 QT: 384 QTc: 386 [place]: P: 56 IN: 148 QRS: 15 T: 22 INTERPRETIVE STATEMENTS: Normal sinus rhythm Normal ECG Compared to ECG 10/12/2019 17:38:38 Sinus bradycardia no longer present Electronically Signed On 02-27-20 08:43:04 CDT by Christian Dooley
== END 2020-02-27 02:45 | disposition home or self-care (01) ==
LOC: ER 22:37
DX: K29.70 Gastritis, unspecified, without bleeding (principal); K02.9 Dental caries, unspecified; Z88.1 Allergy status to other antibiotic agents; Z88.5 Allergy status to narcotic agent; Z88.8 Allergy status to other drugs, medicaments and biological substances; Z91.040 Latex allergy status; Z91.041 Radiographic dye allergy status; Z91.048 Other nonmedicinal substance allergy status
CPT/HCPCS: 93005; 85025; 80048; 36415; 83735; 80076; 84484; 83690; 83880; 71045; 99284; J7030

== ENCOUNTER 2020-03-13 23:45 | Emergency (ER) | payer OTHER ==
--- OUTSIDE RECORDS SUMMARY | 2020-03-13 23:47 | XMS REPORT | Continuity of Care Document ---
:1960 Author Organization [employer] Care Team Providers Name Role Phone [employer] Unavailable Un available Problems Problem Status Onset Classification Date Comments Sourc e Date Reported Hypertensive Active Problem 04/22/2019 Mische r disorder, Neuro systemic arterial (disorder) Memory Active Problem 04/22/2019 Mischer impairment Neuro (finding) Neck pain Active Problem 04/22/2019 Mischer (finding) Neuro Paresthesia Active Problem 04/22/2019 Mischer (finding) Neuro Simple obesity Active Problem 04/22/2019 Misc her (disorder) Neuro Tremor (finding) Active Problem 04/22/2019 Mi jeroinmo Neuro Dizziness Active Problem 04/22/2019 Mischer (finding) [...] Hydrocodone Refill(s) Bitartrate 10 MG Oral Tablet [Ravenel 10/325] Clonazepam 2 MG 2 mg = [...] Source Systolic (mm Hg) 143 03/28/2019 [facility] [place] Penny ro Diastolic (mm Hg) 82 03/28/2019 [facility] [place] Ne uro Heart Rate 53 03/28/2019 [facility] [place] Neuro Respitory Rate 16 03/28/2019 [facility] [place] Neuro Height 172.72 cm 03/28/2019 [facility] [place] Neuro Weight 89.091 03/28/2019 [facility] [place] Neuro BMI Calculated 29.86 03/28/2019 [facility] [place] Neuro BMI Calculated 30.47 09/26/2018 [facility] [place] Neuro Weight 90.909 09/26/2018 [facility] [place] Neuro Height 172.72 cm 09/26/2018 [facility] [place] Neuro Heart Rate 58 09/26/2018 [facility] [place] Neuro Respitory Rate 16 09/26/2018 [facility] [place] Neuro Systolic (mm Hg) 159 09/26/2018 [facility] [place] Penny ro Diastolic (mm Hg) 88 09/26/2018 [facility] [place] Ne uro Encounters Location Location Encounter Encounter Reason Attending ADM [place] Stat us Source Details Type Number For Provider Date Date Visit MNA Outpatient [id number] Pio 09/26 09/27 [facility] [place] Neurology [facility] [place] Outpatient [id number] Pio 10/31 Active [facility] [place] MNA Ambulatory [id number] Pio 10/31 10/31 [facility] [place] Neurology Pre-Reg [facility] Neuro [place] Outpatient [id number] Pio 03/28 [facility] [place] MNA Outpatient [id number] Pio 03/28 03/29 [facility] [place] Neurology [facility] Neuro [place] MNA Outside [id number] 04/01 04/03 [facility] Neurology Medical /2018 Neuro [place] Records Outpatient [id number] Pio 04/11 Active [facility] [place] MNA Ambulatory [id number] P[place] 04/11 04/11 [facility] [place] Neurology Pre-Reg [facility] Neuro [place] MNA Outside [id number] 04/18 04/20 [facility] Neurology Medical Neuro [place] Records Procedures No Data Provided for This Section Assessment and Plan No Data Provided for This Section Plan of Care No Data Provided for This Section Social History Social History Date Source Social History TypeResponse 03/28/2019 [facility] [place] Neur o Smoking Status Former smoker; Type: Cigarettes; Exposur e to Tobacco Smoke None; Cigarette Smoking Last 365 Days No; Reg Smoking Cessation Counseling No entered on: 03/28/19 Family History No Data Provided for This Section Advance Directives No Data Provided for This Section Functional Status No Data Provided for This Section
--- OUTSIDE RECORDS SUMMARY | 2020-03-13 23:48 | XMS REPORT | Continuity of Care Document ---
:1960 Author Organization [facility] t Address [address] [place] [address] Care Team Providers Name Role Phone Theo Hernandez NP Attending Clinician Mau Armstrong Attending Clinician Problems Condition Condition Condition Status Onset Resolution Last Treating Co mments Source Name Details Category Date Date Treatment Clinician Date Hypertensi Problem Active 2019-04-22 M emoria ve 01:06:38 l disorder, [place] systemic Hypertensi arterial ve (disorder) disorder, systemic arterial (disorder) Active Problem 04/22/2019 [facility] Memory Problem Active 2019-04-22 Memor ia impairment 01:06:38 l (finding) Memory Maggy nn impairment (finding) Active Problem 04/22/2019 [facility] Neck pain Problem Active 2019-04-22 Me moria (finding) 01:06:38 l Neck Evan pain (finding) Active Problem 04/22/2019 [facility] Paresthesi Problem Active 2019-04-22 M emoria a 01:06:38 l (finding) [place] Paresthesi a (finding) Active Problem 04/22/2019 [facility] Simple Problem Active 2019-04-22 Memor ia obesity 01:06:38 l (disorder) Simple Herm jessa obesity (disorder) Active Problem 04/22/2019 [facility] Tremor Problem Active 2019-04-22 Memor ia (finding) 01:06:38 l Tremor [place] (finding) Active Problem 04/22/2019 [facility] Dizziness Problem Active 2019-04-22 Me moria (finding) 01:06:38 l Evan Dizziness (finding) Active Problem 04/22/2019 [facility] Allergies, Adverse Reactions, Alerts Allergy Allergy Status Severity Reaction(s) Onset Inactive Treating Comm ents Source Name Type Date Date Clinician Keflex Adverse Active rash [facility] Phenerga Adverse Active hives [facility] Levaquin Levaquin Active Memori a roberto FernándezEvan Social History Smoking Status Start Date Stop Date Source Social History 2019-03-28 18:18:16 2019-03-28 18:18:16 [facility] Evan Medications Ordered Filled Start Stop Current Ordering Indication Dosage Frequency Signature Comments Components Source Medication Medication Date Date Medication? Clinician (SIG) Name Name valsartan 2018-06 Yes 0 Memoria 40 mg oral 0-24 Refill(s) l tablet 19:12: Evan 00 pantoprazol Yes 40 mg = 1 M emoria e 40 mg 4-24 tab, PO, l oral 19:00: Daily, # [place] enteric 00 30 tab, 0 coated Refill(s) tablet carvedilol Yes 25 mg = 1 Me moria 25 mg oral 4-24 tab, PO, l tablet 19:00: BID, # 180 Maggy nn 00 tab, 0 Refill(s) Acetaminoph 2019- Yes 1 tab, PO, Memoria en 325 MG / 4-24 QID, 0 l Hydrocodone 19:00: Refill(s) H ermann Bitartrate 00 10 MG Oral Tablet [[place] 10/325] Clonazepam 2018- Yes 2 mg = 1 Mem oria 2 MG Oral 4-24 tab, PO, l Tablet 19:00: BID, # 60 Jun n [Klonopin] 00 tab, 0 Refill(s) Aspirin 81 Aspirin 81 2017- Yes Esthela [address] [facility] 4[facility]12 [place] [facility] 00 l [facility] Albuterol Albuterol 2015- Yes Esthela [address] [facility] Sulfate HFA Sulfate HFA 1-25 [place] [facility] Clonazepam Clonazepam Yes Esthela TAKE [address] [facility] [place] TABLET BY [facility] - MOUTH Memoria TWICE A l DAY [facility] Carvedilol Carvedilol Yes Esthela take [address] [facility] [place] tablet by [facility] - mouth Memoria twice a l day [facility] Famotidine Famotidine Yes Esthela [address] [facility] [place] at bedtime [facility][1] l [facility] Protonix Protonix Yes Esthela [address] [place] [facility][1] l [facility] Dicyclomine Dicyclomine Yes Esthela [address] [facility] [address] HCl HCl [place] [facility][1] l [facility]ics Ventolin Ventolin Yes Esthela [address] HFA HFA [place] [facility][1] l [facility] Clinics Valsartan Valsartan Yes Esthela [address] [facility] [place] [facility][1] l [facility] Clinics Hydrocodone Hydrocodone Yes Esthela (Schedule [facility] -Ac[facility] -Acetaminop [place] II Drug) [facility] - hen hen TK 1 T PO Memoria TID l [facility] Creon Creon 2019- No Esthela take by [facility] 07[facility]21 [place] mouth 1 [facility] - 00:00 capsule 3 Memoria :00 times a l day as Outpati directed ent Clinics Vital Signs Vital Name Observation Time Observation Value Comments Source Systolic (mm Hg) 2019-03-28 18:17:00 Lucio Gordon Diastolic (mm Hg) 2019-03-28 18:17:00 Will Gordon Heart Rate 2019-03-28 18:17:00 Nona Gordon Respitory Rate 2019-03-28 18:17:00 Gricel Wright Height 2019-03-28 18:17:00 172.72 cm Nona Gordon Weight 2019-03-28 18:17:00 Nona Gordon BMI Calculated 2019-03-28 18:17:00 Gricel Wright BMI Calculated 2018-09-26 18:51:00 Gricel Wright Weight 2018-09-26 18:51:00 [facility] [place] Height 2018-09-26 18:51:00 172.72 cm [facility] [place] Heart Rate 2018-09-26 18:51:00 [facility] [place] Respitory Rate 2018-09-26 18:51:00 Gricel arauz Evan Systolic (mm Hg) 2018-09-26 18:51:00 Lucio Fernándezann Diastolic (mm Hg) 2018-09-26 18:51:00 Mem orial [place] Procedures This patient has no known procedures. Encounters Start End Encounter Admission Attending Care Care Encounter Source Date/Time Date/Time Type Type Clinicians Facility Department ID 2020-03-10 2020-03-10 Outpatient [facility] [id number] [facility] 2019-07-21 2019-07-21 Emergency [facility], [facility] [id number] 18:06:23 22:09:00 Camila Layton [id number] [place] [id number] [place] [id number] 2019-07-15 2019-07-15 [facility] [id number] [facility] 15:01:00 15:01:00 t Specialty/U Martha kes - Specialty rology Memori a /Urology Clinic l Clinic Outpati ent Clinics 2019-07-09 2019-07-09 [facility] [id number] 16:46:00 16:46:00 t Specialty/U Martha kes - Specialty rology Memori a /Urology Clinic l Clinic Outpati ent Clinics 2019-07-08 2019-07-08 [facility] [id number] [address] 14:51:00 14:51:00 t Specialty/U Martha kes - Specialty rology Memori a /Urology Clinic l Clinic Outpati ent Clinics 2019-07-08 2019-07-08 [facility] [id number] 08:00:00 08:00:00 t Specialty/U Martha kes - Specialty rology Memori a /Urology Clinic l Clinic Outpati ent Clinics 2019-07-04 2019-07-04 [facility] [id number] 13:00:00 13:00:00 t Specialty/U Martha kes - Specialty rology [facility] a /Urology Clinic l Clinic Outpati ent Clinics 2019-07-02 2019-07-02 [facility] [id number] 14:32:00 14:32:00 t [facility] Outpati ent Clinics 2019-06-27 2019-06-27 [facility] [id number] 14:40:00 14:40:00 t [facility] Outpati ent Clinics 2019-06-03 2019-06-03 [facility] [id number] 11:17:00 11:17:00 t [facility] Outpati ent Clinics 2019-04-18 2019-04-19 Outpatient MHMISCHER MHMISCHER [id number] 12:37:59 23:59:59 2019-04-11 2019-04-11 [id number] 15:30:00 15:30:00 Pio 03 Mau 2019-04-09 2019-04-09 [facility] [id number] [address] 15:20:00 15:20:00 [facility] Outpati ent Clinics 2019-04-01 2019-04-02 Outpatient MHMISCHER MHMISCHER [id number] 08:58:44 23:59:59 2019-03-28 2019-03-28 [facility] [id number] 13:00:00 23:59:59 Pio Dalton León 2019-02-19 2019-02-19 [facility] [id number] 14:40:00 14:40:00 t [facility] Outpati ent Clinics 2018-12-11 2018-12-11 [facility] [id number] 11:21:00 11:21:00 t [facility] Outpati ent Clinics 2018-11-19 2018-11-19 [facility] [id number] 14:40:00 14:40:00 [facility] Medicine l Medicine Outpati ent Clinics 2018-10-31 2018-10-31 Outpatient MARIAH Armstrong [facility] [id number] 13:45:00 13:45:00 Pio 01 Mau 2018-09-26 2018-09-26 [id number] 13:30:00 23:59:59 Pio Mau 2018-09-17 2018-09-17 [facility] [id number] 16:00:00 16:00:00 [facility] Medicine l Medicine Outpati ent Clinics 2018-08-02 2018-08-02 [facility] [id number] 16:07:00 16:07:[address] [facility] [place] [address] [facility] Medicine l Medicine Outpati ent Clinics 2018-08-02 2018-08-02 [facility] [id number] 16:05:00 16:05:00 [facility] [address] [facility] Medicine l Medicine Outpati ent Clinics 2018-06-18 2018-06-18 [facility] [id number] 16:00:00 16:00:00 [facility] Medicine l Medicine Outpati ent Clinics 2018-01-18 2018-01-18 [facility] [id number] [facility] 14:00:00 14:00:00 [facility] Medicine l Medicine Outpati ent Clinics 2017-09-19 2017-09-19 [facility] [id number] 09:33:00 09:33:00 [facility] Medicine l Medicine Outpati ent Clinics 2017-09-14 2017-09-14 [facility] [id number] 13:00:00 13:00:00 [facility] l Medicine Outpati ent Clinics 2017-09-12 2017-09-12 [facility] [id number] 11:05:00 11:05:00 [facility] ent [facility] 2017-08-29 2017-08-29 Outpatient Malena Preston [id number] [facility] 15:30:00 15:30:00 [facility] ent Clinics Results This patient has no known results.
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
[2020-03-14 02:17] LABS: Basophils % 0.5 % (0-1.3); Hematocrit 43.9 % (39.6-49.0); Lymphocytes % 37.2 % (15.3-44.8); MPV 8.1 fL (7.6-11.3)
[2020-03-14 02:31] LABS: Potassium 3.8 mmol/L (3.5-5.1)
--- NOTE | 2020-03-14 02:40 | ER ---
Nurse's Notes [facility] Name: Alfredo Escobar Age: 59 yrs Sex: Male : 1960 Arrival Date: 03/13/2020 Time: 23:56 Bed 6 Private MD: Diagnosis: Pharyngitis;Sinusitis Presentation: 03/14 00:00 Chief complaint: Patient states: I feel like my brain is swelling, I have head pressure jb4 and pain. I am having hot flashed, fever on an off, I feel like I ate vicks, my guts tore up. I can tastes and smell okay. I am off balance at times, I have fatigue and my throat gong. I feel like crap. My blood pressure is up and down. I have pain on my left side in my arm. I had drops of blood on my pillow case from my ear. 00:00 Coronavirus screen: Client denies travel out of the [place] in the last 14 days. Client jb4 presents with at least one sign or symptom that may indicate coronavirus-19. Standard/surgical mask placed on the client. Provider contacted for isolation considerations. Ebola Screen: No symptoms or risks identified at this time. Initial Sepsis Screen: Does the patient meet any 2 criteria? No. Patient's initial sepsis screen is negative. Does the patient have a suspected source of infection? No. Patient's initial sepsis screen is negative. Risk Assessment: Do you want to hurt yourself or someone else? Patient reports no desire to harm self or others. Onset of symptoms was March 07, 2020. Transition of care: patient was not received from another setting of care. 00:00 Method Of Arrival: Ambulatory jb4 00:00 Acuity: BUCKY 3 jb4 Triage Assessment: 00:00 Headache History: The patient has had previous headaches and this one is more severe jb4 than previous episodes. General: Appears in no apparent distress. uncomfortable, Behavior is calm, cooperative. Pain: Pain currently is 3 out of 10 on a pain scale. Pain began 1 week ago Also complains of sleeplessness, inability to concentrate. Neuro: Level of Consciousness is awake, alert, obeys commands, Oriented to person, place, time, situation. Historical: - Allergies: 00:00 Bactrim; jb4 00:00 Iodinated Contrast Media - IV Dye; jb4 00:00 Iodine; jb4 00:00 Keflex; jb4 00:00 Latex, Natural Rubber; jb4 00:00 Levaquin; jb4 00:00 promethazine HCl; jb4 00:00 Toradol; jb4 - Home Meds: 00:00 calcipotriene 0.005 % Topical oint 2 times per day [Active]; carvedilol 25 mg Oral tab jb4 2 times per day [Active]; clonazepam 2 mg Oral tab 2 times per day [Active]; Ventolin HFA 90 mcg/actuation Nebulizer HFAA 2 puffs every 8 hours [Active]; pantoprazole 40 mg Oral TbEC once daily [Active]; [place] 10-325 mg Oral tab twice a day [Active]; Creon 00923 units Oral 3 times per day [Active]; - PMHx: 00:00 Anxiety; Arthritis; Crohn's; GERD; Pancreatitis; PTSD; jb4 - PSHx: 00:00 None; jb4 - Immunization history:: Adult Immunizations up to date. - Social history:: Smoking status: Patient denies any tobacco usage or history of. Patient/guardian denies using alcohol, street drugs. Screenin:00 Abuse screen: Denies threats or abuse. Nutritional screening: No deficits noted. jb4 Tuberculosis screening: No symptoms or risk factors identified. Fall Risk None identified. Assessment: 00:00 General: Appears in no apparent distress. uncomfortable, Behavior is calm, cooperative, jb4 appropriate for age. Pain: Complains of pain in left arm, throat, headache. Pain does not radiate. Pain currently is 3 out of 10 on a pain scale. Quality of pain is described as burning, aching, pressure, Pain began 1 week ago Is intermittent. Neuro: Level of Consciousness is awake, alert, obeys commands, Oriented to person, place, time, situation. Cardiovascular: Patient's skin is warm and dry. Respiratory: Airway is patent Respiratory effort is even, unlabored, Respiratory pattern is regular, symmetrical. GI: No signs and/or symptoms were reported involving the gastrointestinal system. : No signs and/or symptoms were reported regarding the genitourinary system. EENT: Ear canal Pt has cotton balls in his ear.. Oral mucosa is moist. Poor dentition noted. Throat is clear is reddened with gag reflex present. Derm: Skin is intact, Skin is pink, warm \T\ dry. Musculoskeletal: Circulation, motion, and sensation intact. Range of motion: intact in all extremities. 01:06 Reassessment: Patient appears in no apparent distress at this time. Patient and/or jb4 family updated on plan of care and expected duration. Pain level reassessed. Patient is alert, oriented x 3, equal unlabored respirations, skin warm/dry/pink. 01:53 Reassessment: Pt requesting blood work be done, provider notified, see [facility] for orders. jb4 02:00 Reassessment: Patient appears in no apparent distress at this time. Patient and/or jb4 family updated on plan of care and expected duration. Pain level reassessed. Patient is alert, oriented x 3, equal unlabored respirations, skin warm/dry/pink. PT given warm blanket per request. Vital Signs: 00:00 BP 138 / 82; Pulse 62; Resp 16; Temp 98.4(O); Pulse Ox 98% on R/A; Weight 77.11 kg (R); jb4 Height 5 ft. 10 in. (177.80 cm) (R); Pain 3/10; 01:00 BP 129 / 78; Pulse 55; Resp 16; Pulse Ox 98% on R/A; jb4 02:15 BP 125 / 79; Pulse 66; Resp 16; Pulse Ox 100% on R/A; jb4 00:00 Body Mass Index 24.39 (77.11 kg, 177.80 cm) jb4 [place] Coma Score: 02:38 Eye Response: spontaneous(4). Verbal Response: oriented(5). Motor Response: obeys mh7 commands(6). Total: 15. ED Course: 03/13 23:56 Patient arrived in ED. ag3 03/14 00:00 Theodore Vyas MD is Attending Physician. mh7 00:00 Arm band placed on right wrist. jb4 00:00 Patient has correct armband on for positive identification. Bed in low position. Call jb4 light in reach. Side rails up X 1. Pulse ox on. NIBP on. 00:12 Jose Luis Corea RN is Primary Nurse. jb4 00:16 Triage completed. jb4 01:09 CT Head Brain wo Cont In Process Unspecified. EDMS 02:41 No provider procedures requiring assistance completed. Patient did not have IV access jb4 during this emergency room visit. Administered Medications: 00:45 Not Given (Patient Refused): Tylenol 1000 mg PO once jb4 Outcome: 02:40 Discharge ordered by . mh7 02:41 Discharged to home ambulatory, with family. jb4 02:41 Condition: stable 02:41 Discharge instructions given to patient, Instructed on discharge instructions, follow up and referral plans. medication usage, Demonstrated understanding of instructions, follow-up care, medications, Prescriptions given X 1. 02:46 Patient left the ED. jb4 Signatures: Dispatcher [employer] EDMS Jose Luis Corea RN RN jb4 Dorene Abdul 3 Chelo Nolasco RN RN ca1 Theodore Vyas MD MD mh7 Corrections: (The following items were deleted from the chart) 02:41 01:53 Reassessment: Pt requesting blood work be done, provider notified, see [facility] for jb4 orders. ca1 02:41 02:00 Reassessment: Patient appears in no apparent distress at this time. Patient jb4 and/or family updated on plan of care and expected duration. Pain level reassessed. Patient is alert, oriented x 3, equal unlabored respirations, skin warm/dry/pink. Pt given warm blanket per request. ca1 02:41 02:15 BP 125 / 76; Pulse 66bpm; Resp 16bpm; Pulse Ox 100% RA; ca1 jb4
--- NOTE | 2020-03-14 02:40 | EDPHYS ---
Physician Documentation [facility] Name: Alfredo Escobar Age: 59 yrs Sex: Male : 1960 Arrival Date: 03/13/2020 Time: 23:56 Bed 6 Private MD: ED Physician Theodore Vyas HPI: 03/14 01:14 This 59 yrs old Male presents to ER via Ambulatory with complaints of mh7 Headache, Sore Throat. 01:14 The patient complains of pain to the forehead. The patient describes the headache as mh7 intermittent, throbbing, waxing and waning. Onset: The symptoms/episode began/occurred 1 week(s) ago. Associated signs and symptoms: Pertinent positives: Sore Throat, Pertinent negatives:. 01:15 Associated signs and symptoms: Pertinent positives: sinus congestion, Runny Nose, mh7 Congestion, Ear pain, Pertinent negatives: altered mental status, dizziness, fever, malaise, nausea, neck stiffness, paresthesias, Photophobia rash, sinus tenderness, vision changes, vision loss, vomiting, weakness, vertigo. Severity of symptoms: At its worst the pain was moderate, 3 day(s) ago, in the emergency department the pain has improved, moderately. Headache History: The patient has had previous headaches and this one is similar to previous episodes. The symptoms are alleviated by nothing. the symptoms are aggravated by nothing. Historical: - Allergies: 00:00 Bactrim; jb4 00:00 Iodinated Contrast Media - IV Dye; jb4 00:00 Iodine; jb4 00:00 Keflex; jb4 00:00 Latex, Natural Rubber; jb4 00:00 Levaquin; jb4 00:00 promethazine HCl; jb4 00:00 Toradol; jb4 - Home Meds: 00:00 calcipotriene 0.005 % Topical oint 2 times per day [Active]; carvedilol 25 mg Oral tab jb4 2 times per day [Active]; clonazepam 2 mg Oral tab 2 times per day [Active]; Ventolin HFA 90 mcg/actuation Nebulizer HFAA 2 puffs every 8 hours [Active]; pantoprazole 40 mg Oral TbEC once daily [Active]; [place] 10-325 mg Oral tab twice a day [Active]; Creon 25860 units Oral 3 times per day [Active]; - PMHx: 00:00 Anxiety; Arthritis; Crohn's; GERD; Pancreatitis; PTSD; jb4 - PSHx: 00:00 None; jb4 - Immunization history:: Adult Immunizations up to date. - Social history:: Smoking status: Patient denies any tobacco usage or history of. Patient/guardian denies using alcohol, street drugs. ROS: 01:15 Constitutional: Negative for fever, chills, and weight loss, Eyes: Negative for injury, mh7 pain, redness, and discharge, Neck: Negative for injury, pain, and swelling, Cardiovascular: Negative for chest pain, palpitations, and edema, Respiratory: Negative for shortness of breath, cough, wheezing, and pleuritic chest pain, Abdomen/GI: Negative for abdominal pain, nausea, vomiting, diarrhea, and constipation, Back: Negative for injury and pain, : Negative for injury, bleeding, discharge, and swelling, MS/Extremity: Negative for injury and deformity, Skin: Negative for injury, rash, and discoloration, Psych: Negative for depression, anxiety, suicide ideation, homicidal ideation, and hallucinations, Allergy/Immunology: Negative for hives, rash, and allergies, Endocrine: Negative for neck swelling, polydipsia, polyuria, polyphagia, and marked weight changes, Hematologic/Lymphatic: Negative for swollen nodes, abnormal bleeding, and unusual bruising. Exam: 01:15 Constitutional: This is a well developed, well nourished patient who is awake, alert, mh7 and in no acute distress. Head/Face: Normocephalic, atraumatic. Eyes: Pupils equal round and reactive to light, extra-ocular motions intact. Lids and lashes normal. Conjunctiva and sclera are non-icteric and not injected. Cornea within normal limits. Periorbital areas with no swelling, redness, or edema. 01:15 ENT: External ear(s): are unremarkable, Ear canal(s): are normal, TM's: are normal, Nose: is normal, Mouth: is normal, Posterior pharynx: Airway: normal, erythema, that is moderate. 01:19 Neck: Trachea midline, no thyromegaly or masses palpated, and no cervical mh7 lymphadenopathy. Supple, full range of motion without nuchal rigidity, or vertebral point tenderness. No Meningismus. Chest/axilla: Normal chest wall appearance and motion. Nontender with no deformity. No lesions are appreciated. Cardiovascular: Regular rate and rhythm with a normal S1 and S2. No gallops, murmurs, or rubs. Normal PMI, no JVD. No pulse deficits. Respiratory: Lungs have equal breath sounds bilaterally, clear to auscultation and percussion. No rales, rhonchi or wheezes noted. No increased work of breathing, no retractions or nasal flaring. Abdomen/GI: Soft, non-tender, with normal bowel sounds. No distension or tympany. No guarding or rebound. No evidence of tenderness throughout. Back: No spinal tenderness. No costovertebral tenderness. Full range of motion. Skin: Warm, dry with normal turgor. Normal color with no rashes, no lesions, and no evidence of cellulitis. MS/ Extremity: Pulses equal, no cyanosis. Neurovascular intact. Full, normal range of motion. Neuro: Awake and alert, GCS 15, oriented to person, place, time, and situation. Cranial nerves II-XII grossly intact. Motor strength 5/5 in all extremities. Sensory grossly intact. Cerebellar exam normal. Normal gait. Psych: Awake, alert, with orientation to person, place and time. Behavior, mood, and affect are within normal limits. 01:19 ENT: Posterior pharynx: Tonsils: bilaterally enlarged, with erythema, Uvula: normal, swelling, is not appreciated, exudate, is not appreciated, peritonsillar mass, is not appreciated, pooling of secretions, is not appreciated, Dental exam: normal, Voice: is normal. Vital Signs: 00:00 BP 138 / 82; Pulse 62; Resp 16; Temp 98.4(O); Pulse Ox 98% on R/A; Weight 77.11 kg (R); jb4 Height 5 ft. 10 in. (177.80 cm) (R); Pain 3/10; 01:00 BP 129 / 78; Pulse 55; Resp 16; Pulse Ox 98% on R/A; jb4 02:15 BP 125 / 79; Pulse 66; Resp 16; Pulse Ox 100% on R/A; jb4 00:00 Body Mass Index 24.39 (77.11 kg, 177.80 cm) jb4 Nikita Coma Score: 02:38 Eye Response: spontaneous(4). Verbal Response: oriented(5). Motor Response: obeys [facility] commands(6). Total: 15. MDM: 00:42 Patient medically screened. [facility] 02:38 Differential diagnosis: cluster headache, intracerebral hemorrhage, migraine, mh7 sinusitis, tension headache, Pharyngitis. Data reviewed: vital signs, nurses notes, old medical records, lab test result(s), CBC, electrolytes, Flu: negative radiologic studies, CT scan. Data interpreted: Pulse oximetry: on room air is 100 %. Interpretation: normal. Counseling: I had a detailed discussion with the patient and/or guardian regarding: the historical points, exam findings, and any diagnostic results supporting the discharge/admit diagnosis, lab results, radiology results, the need for outpatient follow up, to return to the emergency department if symptoms worsen or persist or if there are any questions or concerns that arise at home. Response to treatment: the patient's symptoms have markedly improved after treatment. 03/14 00:41 Order name: Flu; Complete Time: 02:11 jb4 03/14 00:41 Order name: Strep; Complete Time: 02:11 jb4 03/14 01:54 Order name: Basic Metabolic Panel; Complete Time: 02:34 ca1 03/14 02:10 Order name: Throat Culture EDMS 03/14 02:19 Order name: CBC with Automated Diff; Complete Time: 02:25 EDMS 03/14 00:42 Order name: CT Head Brain wo Cont jb4 Administered Medications: 00:45 Not Given (Patient Refused): Tylenol 1000 mg PO once jb4 Disposition: 03/14/20 02:40 Discharged to Home. Impression: Pharyngitis, Sinusitis. - Condition is Stable. - Discharge Instructions: Sinusitis, Adult, [id number], Pharyngitis, [id number]-rb-[id number]. - Prescriptions for Zithromax Z- Mg 250 mg Oral Tablet - take 1 tablet by ORAL route as directed for 5 days Day 1 - take two (2) tablets one time. Day 2, 3, 4 , 5 take one (1) tablet once daily.; 6 tablet. - Medication Reconciliation Form, Thank You Letter, Antibiotic Education, Prescription Opioid Use form. - Follow up: Private Physician; When: 1 - 2 days; Reason: Worsening of condition, Recheck today's complaints, Continuance of care, Re-evaluation by your physician. - Problem is new. - Symptoms have improved. Signatures: Dispatcher [employer] [facility] Jose Luis Corea RN RN jb4 Theodore Vyas MD MD mh7 Corrections: (The following items were deleted from the chart) 02:18 01:55 CBC with Manual Differential+H.LAB.BRZ ordered. [facility] 02:46 02:40 03/14/2020 02:40 Discharged to Home. Impression: Pharyngitis; Sinusitis. jb4 Condition is Stable. Forms are Medication Reconciliation Form, Thank You Letter, Antibiotic Education, Prescription Opioid Use. Follow up: Private Physician; When: 1 - 2 days; Reason: Worsening of condition, Recheck today's complaints, Continuance of care, Re-evaluation by your physician. Problem is new. Symptoms have improved. mh7
[2020-03-14 02:52] VITALS: TEMP 98.4
[2020-03-14 02:54] VITALS: BP 125/79; O2SAT 100
--- NOTE | 2020-03-16 10:07 | RAD REPORT ---
EXAM DESCRIPTION: CT - Head Brain Wo Cont - 03/14/2020 6:41 am CLINICAL HISTORY: HEADACHE TECHNIQUE: Contiguous axial CT images obtained through the brain without IV contrast. Coronal and sa gittal reformatted images were provided. This exam was performed according to our departmental dose-optimization program, which includes autom ated exposure control, adjustment of the mA and/or kV according to patient size and/or use of iterati ve reconstruction technique. COMPARISON: 03/14/2019 FINDINGS: Brain: No significant white matter changes. No focal mass effect. Barron-white matter differ entiation is within normal limits. No hemorrhage. Ventricles: No ventriculomegaly or midline shift. Extra-axial spaces: No extra-axial collection or hemorrhage. Paranasal sinuses and mastoid air cells: Well-aerated Vessels: Unremarkable Bones: Unremarkable Soft tissues: Unremarkable IMPRESSION: No acute intracranial or extra-axial abnormality. Electronically signed by: Alex Busby MD 03/14/2020 1:17 AM CDT Due to temporary technical issues with the PACS/Fluency reporting system, reports are being signed by the in house radiologist without review as a courtesy to ensure prompt reporting. The interpreting r adiologist is fully responsible for the content of the report.
== END 2020-03-14 02:46 | disposition home or self-care (01) ==
LOC: ER 23:45
DX: J32.9 Chronic sinusitis, unspecified (principal); J02.9 Acute pharyngitis, unspecified; F43.10 Post-traumatic stress disorder, unspecified; F41.9 Anxiety disorder, unspecified; Z88.1 Allergy status to other antibiotic agents; Z88.8 Allergy status to other drugs, medicaments and biological substances; Z91.040 Latex allergy status; Z91.048 Other nonmedicinal substance allergy status
CPT/HCPCS: 36415; 70450; 80048; 85025; 87070; 87081; 87804; 99283

== ENCOUNTER 2020-03-31 21:36 | Observation (INO) | payer OTHER ==
--- OUTSIDE RECORDS SUMMARY | 2020-03-31 21:38 | XMS REPORT | Continuity of Care Document ---
:1960 Author Organization [employer] Care Team Providers Name Role Phone [employer] Unavailable Un available Problems Problem Status Onset [...] Hydrocodone Refill(s) Bitartrate 10 MG Oral Tablet [[place] 10/325] Clonazepam 2 MG 2 mg = [...] Comments Source Systolic (mm Hg) 143 03/28/2019 [facility] Diastolic (mm Hg) 82 03/28/2019 [facility] Heart Rate 53 03/28/2019 [facility] Respitory Rate 16 03/28/2019 [facility] Height 172.72 cm 03/28/2019 [facility] Weight 89.091 03/28/2019 [facility] BMI Calculated 29.86 03/28/2019 [facility] BMI Calculated 30.47 09/26/2018 [facility] Weight 90.909 09/26/2018 [facility] Height 172.72 cm 09/26/2018 [facility] Heart Rate 58 09/26/2018 [facility] Respitory Rate 16 09/26/2018 [facility] Systolic (mm Hg) 159 09/26/2018 [facility] Diastolic (mm Hg) 88 09/26/2018 [facility] Encounters Location Location Encounter Encounter Reason Attending ADM DE Stat us Source Details Type Number For Provider Date Date Visit MNA Outpatient [id number] [place] 09/26 09/27 [facility] [place] Out[facility] [id number] [place] 10/31 Active [facility]NA Ambulatory [id number] [place] 10/31 10/31 [facility] [place] Outpatient [id number] [place] 03/28 [facility] Outpatient [id number] [place] 03/28 03/29 [facility] [place] MNA Outside [id number] 04/01 04/03 [facility] Medical /2018 Neuro [place] [facility] Outpatient [id number] [place] 04/11 Active [facility] Ambulatory [id number] [place] 04/11 04/11 [facility] [place] MNA Outside [id number] 04/18 04/20 [facility] Neurology Medical [facility] [place] [facility] Procedures No Data Provided for This Section Assessment and Plan No Data Provided for This Section Plan of Care No Data Provided for This Section Social History Social History Date Source Social History TypeResponse 03/28/2019 [facility] Smoking Status Former smoker; Type: Cigarettes; Exposur e to Tobacco Smoke None; Cigarette Smoking Last 365 Days No; Reg Smoking Cessation Counseling No entered on: 03/28/19 Family History No Data Provided for This Section Advance Directives No Data Provided for This Section Functional Status No Data Provided for This Section
--- OUTSIDE RECORDS SUMMARY | 2020-03-31 21:38 | XMS REPORT | Continuity of Care Document ---
:1960 Author Organization [facility] t Address [address] [place] [address] Care Team Providers Name Role Phone Theo Hernandez NP Attending Clinician Mau Armstrong Attending Clinician Problems Condition Condition Condition Status Onset Resolution Last Treating Co mments Source Name Details Category Date Date Treatment Clinician Date Hypertensi Problem Active 2019-04-22 M emoria ve 01:06:38 l disorder, [place] systemic Hypertensi arterial ve (disorder) disorder, systemic arterial (disorder) Active Problem 04/22/2019 [facility] Memory Problem Active 2019-04-22 Memor ia impairment 01:06:38 l (finding) Memory Maggy nn impairment (finding) Active Problem 04/22/2019 [facility] Neck pain Problem Active 2019-04-22 Me moria (finding) 01:06:38 l Neck [place] pain (finding) Active Problem 04/22/2019 [facility] [...] Problem Active 2019-04-22 Me moria (finding) 01:06:38 roberto Gordon Dizziness (finding) Active Problem 04/22/2019 [facility] Allergies, Adverse Reactions, Alerts Allergy Allergy Status Severity Reaction(s) Onset Inactive Treating Comm ents Source Name Type Date Date Clinician Keflex Adverse [facility] rash [facility] Phenerga Adverse [facility] hives [facility] Bactrim Adverse Active rash [facility] Levaquin Adverse Active stops [facility] Levaquin Levaquin Active Memori a roberto FernándezEvan Social History Smoking Status Start Date Stop Date Source Social History 2019-03-28 18:18:16 2019-03-28 18:18:16 [facility] Medications Ordered Filled Start Stop Current Ordering Indication Dosage Frequency Signature Comments Components Source Medication Medication Date Date Medication? Clinician (SIG) Name Name valsartan 2019 Yes 0 Memoria 40 mg oral 0-24 Refill(s) l tablet 19:12: [place] 00 pantoprazol Yes 40 mg = 1 [...] ermann Bitartrate 00 10 MG Oral Tablet [[place] 10/325] Clonazepam 2018- Yes 2 mg = 1 Mem oria 2 MG Oral 4-24 tab, PO, l Tablet 19:00: BID, # 60 Jun n [Klonopin] 00 tab, 0 Refill(s) Aspirin 81 Aspirin 81 2017- Yes Esthela [address] [facility] [place] [facility] Albuterol Albuterol 2015- Yes Esthela [address] Sulfate HFA Sulfate HFA 1-25 [place] [facility] Clonazepam Clonazepam Yes Esthela TAKE [address] [facility] [facility] [place] [facility]T [facility] Carvedilol Carvedilol Yes Esthela take [address] [facility] [place] tablet by [facility] mouth [facility] twice a [facility] Famotidine Famotidine Yes Esthela [address] [place] [facility] Protonix Protonix Yes [place]hela [address] [place] [facility] Dicyclomine Dicyclomine Yes Esthela [address] HCl HCl [place] [facility] Ventolin Ventolin Yes Esthela [address] HFA HFA [place] [facility] Valsartan Valsartan Yes Esthela [address] [place] [facility] Hydrocodone Hydrocodone Yes Esthela (Schedule [facility] -Acetaminop -Acetaminop [place] II Drug) [facility] hen TK 1 T PO [facility]ID l [facility] Creon Creon 2019- No Esthela take by [facility] 07[facility] [place] mouth 1 [facility] - 00:00 capsule 3 [...] 2018-09-26 18:51:00 Gricel Wright Weight 2018-09-26 18:51:00 Nona Gordon Height 2018-09-26 18:51:00 172.72 cm Nona Gordon Heart Rate 2018-09-26 18:51:00 Nona Gordon Respitory Rate 2018-09-26 18:51:00 Gricel Wright Systolic (mm Hg) 2018-09-26 18:51:00 Lucio Fernándezann Diastolic (mm Hg) 2018-09-26 18:51:00 Mem orial [place] Procedures This patient has no known procedures. Encounters Start End Encounter Admission Attending Care Care Encounter Source Date/Time Date/Time Type Type Clinicians Facility Department ID 2020-03-18 2020-03-18 Outpatient [facility] [id number] [facility] 2020-03-18 2020-03-18 Out[facility] [id number] [facility] 2020-03-10 2020-03-10 [id number] 2019-07-21 2019-07-21 [facility] [id number] 18:06:23 22:09:00 Camila Layton [id number] [place] [id number] [place] [id number] 2019-07-15 2019-07-15 [facility] [id number] [facility] 15:01:00 15:01:00 t Specialty/U Martha kes - Specialty rology Mem[facility] /Urology Clinic l [facility] Outpat[facility] ent Clinics 2019-07-09 2019-07-09 [facility] [id number] 16:46:00 16:46:00 t Specialty/U Martha kes - Specialty rology Memori a /Urology Clinic l Clinic Outpati ent Clinics 2019-07-08 2019-07-08 [facility] [id number] 14:51:00 14:51:00 t Specialty/U Martha kes - Specialty rology Memori a /Urology Clinic l Clinic Outpati ent Clinics 2019-07-08 2019-07-08 [facility] [id number] 08:00:00 08:00:00 t Specialty/U Martha kes - Specialty rology Memori a /Urology Clinic l Clinic Outpati ent Clinics 2019-07-04 2019-07-04 [facility] [id number] 13:00:00 13:00:00 t Specialty/U Martha kes - Specialty rology Memori a /Urology Clinic l Clinic Outpati ent Clinics 2019-07-02 2019-07-02 [facility] [id number] 14:32:00 14:32:00 t [facility] Medicine Outpati ent Clinics 2019-06-27 2019-06-27 [facility] [id number] 14:40:00 14:40:00 t [facility] 2019-06-03 2019-06-03 [facility] [id number] 11:17:00 11:17:00 t [facility] Medicine Outpati ent Clinics 2019-04-18 2019-04-19 Outpatient MHMISCHER MHMISCHER [id number] 12:37:59 23:59:59 2019-04-11 2019-04-11 Outpatient ALICE ArmstrongMISCHER MHMISCHER [id number] 15:30:00 15:30:00 P[place] 03 Mau 2019-04-09 2019-04-09 [facility] [id number] 15:20:00 15:20:00 t [facility] Medicine Outpati ent Clinics 2019-04-01 2019-04-02 Outpatient MHMISCHER MHMISCHER [id number] 08:58:44 23:59:59 2019-03-28 2019-03-28 Outpatient ALICE ArmstrongMISCHER MHMISCHER [id number] 13:00:00 23:59:59 [place] Mau 2019-02-19 2019-02-19 [facility] [id number] 14:40:00 14:40:00 t [facility] Medicine Outpati ent Clinics 2018-12-11 2018-12-11 [facility] [id number] 11:21:00 11:21:[address] [facility] Medicine Outpati ent Clinics 2018-11-19 2018-11-19 [facility] [id number] 14:40:00 14:40:[address] [facility] Medicine Outpati ent Clinics 2018-10-31 2018-10-31 Outpatient AZAR ArmstrongSCHLATHA MISCHER [id number] 13:45:00 13:45:00 [place] Mau 2018-09-26 2018-09-26 [id number] 13:30:00 23:59:59 [place] Mau 2018-09-17 2018-09-17 [facility] [id number] 16:00:00 16:00:[address] [facility] Medicine Outpati ent Clinics 2018-08-02 2018-08-02 [facility] [id number] 16:07:00 16:07:00 [place] [facility] Medicine Outpati ent Clinics 2018-08-02 2018-08-02 [facility] [id number] 16:05:00 16:05:00 [place] [facility] Medicine Outpati ent Clinics 2018-06-18 2018-06-18 [facility] [id number] 16:00:00 16:00:[address] [facility] Medicine Outpati ent Clinics 2018-01-18 2018-01-18 [facility] [id number] 14:00:00 14:00:[address] [facility] Medicine Outpati ent Clinics 2017-09-19 2017-09-19 [facility] [id number] 09:33:00 09:33:[address] [facility] Medicine Outpati ent Clinics 2017-09-14 2017-09-14 Outpatient Malena Preston [id number] 13:00:00 13:00:[address] [facility] Medicine Outpati [facility] Clinics 2017-09-12 2017-09-12 Outpatient Malena Preston [id number] 11:05[facility]00 11:05:00 [facility] 2017-08-29 2017-08-29 Outpatient Maelna Preston [id number] 15:30:00 15:30:00 [facility] Results This patient has no known results.
--- OUTSIDE RECORDS SUMMARY | 2020-03-31 21:39 | XMS REPORT ---
:1960 Author Organization [facility] Address [address] [place], [address]. 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 Active 13963793 psoriasis Problem Generalized anxiety F41.1 Active 64522944 disorder Problem Essential (primary) I10 Active 95135580 hypertension Problem Lumbar sprain, S33.5XXA Active 429737131 initial encounter Problem Hyperglycemia R73.9 Active 01535255 Problem Acute tonsillitis, J03.90 Active 50009729 unspecified etiology Problem Asymptomatic R31.21 Active 557306882 microscopic hematuria Problem Crohn''s disease K50.90 Active 48849769 without complication, unspecified gastrointestinal tract location Problem Encounter for Z71.9 Active 621026516 counseling Problem Cervical M47.812 Active 581163195 spondylosis without myelopathy Problem Chronic fatigue R53.82 Active 40529767 Problem BMI 29.0-29.9,adult Z68.29 Active 57382930 Problem Hospital discharge Z09 Active 030216530 follow-up Problem Gastro-esophageal K21.9 Active 114776447 reflux disease without esophagitis Problem 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 Active 766925722 obs/LUTS Problem Abnormal blood R73.09 Active 810706812 sugar Problem Chronic pain G89.4 Active 362636645 syndrome Problem Essential I10 Active 38758151 hypertension Problem Wheezing R06.2 Active 84104774 Problem Nausea R11.0 Active 152882203 Problem Panic disorder with F40.01 Active 26879331 agoraphobia ALLERGIES Allergen (clinical drug Drug/Non Drug Reaction Allergy Type Onset D ate Status ingredient) Allergy documented on EMR promethazine Phenergan([facility] hives Drug Allergy Active Code:[address]- 01) cephalexin Keflex([facility] rash Drug Allergy Active Code:[address]- 01) sulfamethoxazole / Bactrim DS([facility] rash Drug Allergy Active trimethoprim Code:[address]- 01) Levaquin stops breathing Drug Allergy Active eggs Rash Non Drug Active Allergy ENCOUNTERS from 1960 to 2020-03-18 Encounter Location Date Provider Diagnosis Mohan [place] [address] [facility] Mar, [facility] Crohn''s disease without Drive Family [address], [place] [address] unspecified gastrointestina l tract location K50.90 ; Generalized anx iety disorder F41.1 ; Post-traumatic stress disorder F43.10 ; Essential (prim dariela) hypertension I1 0 ; Cervical spondy losis without myelopa thy M47.812 ; Chron ic pain syndrome G89.4 ; Gastro-esophage al reflux disease without esophagitis K21 .9 ; Chronic fatigue R53.82 ; Panic disorder with agoraphobia F40 .01 and BPH loc w/o ur obs/LUTS N40.0 IMMUNIZATIONS No Information SOCIAL HISTORY Tobacco Use: [...] at all hurting yourself in some way Alcohol Screen Question Answer Notes Did you have a drink containing alcohol in the past year? No Points 0 Interpretation Negative Tobacco Use/Smoking Question Answer Notes Are you a former smoker REASON FOR REFERRAL No Information VITAL SIGNS Height 70 in Mar, Weight 181.9 lbs Mar, Temperature 97.0 degrees Fahrenheit Mar, BMI 26.1 kg/m2 Mar, Oximetry 99 % Mar, Respiratory Rate 16 /min Mar, Blood pressure systolic 116 mm Hg Mar, Blood pressure diastolic 72 mm Hg Mar, MEDICATIONS Medication SIG (Take, Route, Start Date End Date Status Frequency, Duration) Protonix 40 MG 1 tablet Orally Once a Act manju day for 90 days Ventolin HFA 108 (90 Base) 2 puffs Inhalation every Active MCG/ACT 6 hrs PRN for 90 days Albuterol Sulfate HFA 108 1 puff Inhalation every 6 25 Apr, 2015 Active (90 Base) MCG/ACT hrs Creon 39384-01080 UNIT take by mouth 1 capsule 3 Active times a day as directed Orally 1 tab with each meal for 90 days Aspirin 81 81 MG 1 tablet Orally Once a Sep, N ot-Taking day Hydrocodone-Acetaminophen (Schedule II Drug) TK 1 T Active 10-325 MG PO TID Oral for 28 Clonazepam 1 MG 1 tablet Orally BID PRN Mar, A ctive SEVERE ANXIETY for 30 days Carvedilol 25 MG take 1 tablet by mouth A ctive twice a day Orally BID for 90 days Dicyclomine HCl 20 MG 1 tablet Orally Four Not-Taking times a day for 30 day(s) Famotidine 20 MG 1 tablet at bedtime Acti ve Orally every 12 hrs PROCEDURES No Information RESULTS No Results REASON FOR VISIT Establish care MEDICAL (GENERAL) HISTORY Type Description Date Medical [...] No Information FUNCTIONAL STATUS No Information ASSESSMENTS Encounter Date Diagnosis Notes Mar, BPH loc w/o ur obs/LUTS (ICD-10 - N40.0) Mar, Panic disorder with agoraphobia (ICD-10 - F40.01) Mar, Crohn''s disease without complication, u nspecified gastrointestinal tract location (ICD-10 - K50.90) Mar, Chronic pain syndrome (ICD-10 - G89.4) Mar, Cervical spondylosis without myelopathy (ICD-10 - M47.812) Mar, Chronic fatigue (ICD-10 - R53.82) Mar, Gastro-esophageal reflux disease without esophagitis (ICD-10 - K21.9) Mar, Post-traumatic stress disorder (ICD-10 - F43.10) Mar, Generalized anxiety disorder (ICD-10 - F 41.1) Mar, Essential (primary) hypertension (ICD-10 - I10) PLAN OF TREATMENT Medication Medication Name Sig Start Date Stop Date Protonix 40 MG 1 tablet Orally Once a day for 90 days Carvedilol 25 MG take 1 tablet by mouth twice a day Orally BID for 90 days Creon 87961-64041 UNIT take by mouth 1 capsule 3 times a day as directed Orally 1 tab with each meal for 90 days Clonazepam 1 MG 1 tablet Orally BID PRN SEVERE ANXIETY 14 Mar, 020 for 30 days Treatment Notes Assessment Notes Clinical Notes Crohn''s disease without Managed by GI. Education given. complication, unspecified gastrointestinal tract location Generalized anxiety disorder -- Anxiety Education: Anxiety is a feeling of anxiousness or nervousness. Being extremely anxious or worried on most days for 6 months or longer is not normal. This is a type of anxiety disorder. This disorder can make it hard to do everyday tasks. Other types of anxiety include: post traumatic stress disorder, panic disorder, and phobias.Symptoms of anxiety may include: feeling worried or on the edge, trouble sleeping, or forgetting things. Feelings of stomach aches or chest tightness is another common symptom.Medicine, exercise, and other treatments like counseling, talk therapy, yoga, and massages maybe necessary to treat this disorder. Essential (primary) hypertension Cont current regimen. DASH Diet discussed. Instructed to measure BP at home and bring in log to f/u appt. Instructions and logs given. Education given. HTN EducationThis is a condition that puts at risk for heart attack, stroke, and kidney disease.Lifestyle modification, low fat/low salt diet, exercise, low alcohol intake and medication is utilized to help control your BP. Untreated HTN increases the strain on the heart and arteries, eventually causing organ damage.Normal BP is less than 140/90. High BP is greater than 140/90. If your BP is not controlled, call your doctor.Medication may need to be adjusted and/or added.Compliance with medication is vital. If you have chest pain, shortness of breath, severe nausea/vomiting, fatigue, and other symptoms, you will need to contact your doctor or go to the ER immediately to address. Cervical spondylosis without Managed by pain management. myelopathy Chronic pain syndrome Managed by PNM. Gastro-esophageal reflux disease We have discussed the without esophagitis pathophysiology of reflux disease and we discussed lifestyle modifications to avoid reflux that include elevation head of the bed, avoid alcohol, avoid caffeine, avoid maintenance, avoid tight clothing, avoid eating within 3-4 hours before bedtime, and avoiding smoking. Panic disorder with agoraphobia Discussed differential diagn osis extensively patient. Education given. Minimal relief with conservative treatment at this time. Impacting and affecting ADLs. At this time, will prescribe clonazepam 1 mg twice daily to use as needed for severe anxiety. Discussed extensively with patient including but not limited to risk, complications, benefits, alternative treatment options, side effect panel of benzodiazepine. In addition, discussed long-term impact of benzodiazepine usage including building tolerance, dependence and leading to addiction. Patient is agreeable of being referred to psychiatry if patient is in need of increase in frequency and quantity of benzodiazepine. Patient vocalized understanding. BPH loc w/o ur obs/LUTS .Stable. Education given. Next Appt Details 4 Weeks Reason: Provider Name:Reese Jenkins, 2020-04-20 0 3:00:00 PM, [address], [address], [place], [address], Insurance Providers Payer Name Payer Address Payer Insured Patient Coverage Cover age Phone Name Relationship to Start Date End Date Insured [employer] [address] [phone] [facility] [address] [address] MEDICARE Attn Part B [id number] Alfred Escobar [employer] Claims [address] [facility] [address] [employer] [address] [address] [phone] Alfred Escobar [facility] [address] [address]
--- OUTSIDE RECORDS SUMMARY | 2020-03-31 21:39 | XMS REPORT ---
:1960 Author Organization [facility] Address [address] [facility], 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 4551660859062 4 cataplexy Problem Other chronic K86.1 Active 156296739 pancreatitis Problem Acute upper J06.9 Active 41187810 respiratory infection Problem Disc disorder M51.9 Active 74006522 Problem Post-traumatic F43.10 Active 89772152 stress disorder Problem Arthropathic L40.50 Active 82022150 psoriasis Problem Generalized anxiety F41.1 Active 77824902 disorder Problem Essential (primary) I10 Active 72299926 hypertension Problem Lumbar sprain, S33.5XXA Active 598840712 initial encounter Problem Hyperglycemia R73.9 Active 24185902 Problem Acute tonsillitis, J03.90 Active 86346846 unspecified etiology Problem Asymptomatic R31.21 Active 795063327 microscopic hematuria Problem Crohn''s disease K50.90 Active 78877836 without complication, unspecified gastrointestinal tract location Problem Encounter for Z71.9 Active 453802999 counseling Problem Cervical M47.812 Active 477020134 spondylosis without myelopathy Problem Chronic fatigue R53.82 Active 40018093 Problem BMI 29.0-29.9,adult Z68.29 Active 97215852 Problem Hospital discharge Z09 Active 927353533 follow-up Problem Gastro-esophageal K21.9 Active 846215291 reflux disease without esophagitis Problem 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 Active 339549206 obs/LUTS Problem Abnormal blood R73.09 Active 135703326 sugar Problem Chronic pain G89.4 Active 325756377 syndrome Problem Essential I10 Active 92664779 hypertension Problem Wheezing R06.2 Active 66355519 Problem Nausea R11.0 Active 757802244 Problem Panic disorder with F40.01 Active 90465413 agoraphobia ALLERGIES Allergen (clinical drug Drug/Non Drug Reaction Allergy Type Onset D ate Status ingredient) Allergy documented on EMR cephalexin Keflex([facility] rash Drug Allergy Active Code:[address]- 01) Levaquin stops breathing Drug Allergy Active sulfamethoxazole / Bactrim DS([facility] rash Drug Allergy Active trimethoprim Code:[address]- 01) promethazine Phenergan([facility] hives Drug Allergy Active Code:[address]- 01) ENCOUNTERS from 1960 to 2020-03-10 Encounter Location Date Provider Diagnosis [facility] [address] [facility] [address], Fernanda [place] [address] IMMUNIZATIONS No Information SOCIAL HISTORY Tobacco Use: [...] Unknown a day for 30 day(s) Creon 27984-52099 UNIT take by mouth 1 capsule 3 Unknown times a day as directed Orally 1 tab with each meal for 90 Famotidine 20 MG 1 tablet at bedtime Orally Unknown every 12 hrs PROCEDURES No Information RESULTS No Results REASON FOR VISIT accept EKG/ECG TECHNICIAN MEDICAL (GENERAL) HISTORY Type Description Date Medical [...] 1:30:00 PM, [address], [address], [place], [address], Insurance Providers Payer Name Payer Address Payer Insured Patient Coverage Cover age Phone Name Relationship to Start Date End Date Insured MEDICARE Attn Part B [id number] Alfred Escobar self [employer] Claims [address] [facility] [address] [facility] [address] [address] [phone] Alfred Escobar self [facility] [address] [address] [facility] [address] [phone] Alfred Escobar self [facility] [address] [address]
--- OUTSIDE RECORDS SUMMARY | 2020-03-31 21:39 | XMS REPORT ---
:1960 Author Organization [facility] Address [address] [place], 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 3858755432772 4 cataplexy Problem Other chronic K86.1 Active 865037643 pancreatitis Problem Acute upper J06.9 Active 73999076 respiratory infection Problem Disc disorder M51.9 Active 35329721 Problem Post-traumatic F43.10 Active 97669345 stress disorder Problem Arthropathic L40.50 Active 82038244 psoriasis Problem Generalized anxiety F41.1 Active 96007892 disorder Problem Essential (primary) I10 Active 25382046 hypertension Problem Lumbar sprain, S33.5XXA Active 616374638 initial encounter Problem Hyperglycemia R73.9 Active 46612638 Problem Acute tonsillitis, J03.90 Active 59988103 unspecified etiology Problem Asymptomatic R31.21 Active 262483216 microscopic hematuria Problem Crohn''s disease K50.90 Active 60172372 without complication, unspecified gastrointestinal tract location Problem Encounter for Z71.9 Active 888707227 counseling Problem Cervical M47.812 Active 412472233 spondylosis without myelopathy Problem Chronic fatigue R53.82 Active 14789278 Problem BMI 29.0-29.9,adult Z68.29 Active 17393341 Problem Hospital discharge Z09 Active 402167957 follow-up Problem Gastro-esophageal K21.9 Active 327007976 reflux disease without esophagitis Problem 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 Active 013140366 obs/LUTS Problem Abnormal blood R73.09 Active 895925586 sugar Problem Chronic pain G89.4 Active 936562693 syndrome Problem Essential I10 Active 01137190 hypertension Problem Wheezing R06.2 Active 84474570 Problem Nausea R11.0 Active 909937473 Problem Panic disorder with F40.01 Active 58770907 agoraphobia ALLERGIES Allergen (clinical drug Drug/Non Drug Reaction Allergy Type Onset D ate Status ingredient) Allergy documented on EMR promethazine Phenergan([facility] hives Drug Allergy Active Code:[address]- 01) cephalexin Keflex([facility] rash Drug Allergy Active Code:[address]- 01) sulfamethoxazole / Bactrim DS([facility] rash Drug Allergy Active trimethoprim Code:[address]- 01) Levaquin stops breathing Drug Allergy Active eggs Rash Non Drug Active Allergy ENCOUNTERS from 1960 to 2020-03-19 Encounter Location Date Provider Diagnosis [facility] [address] [facility] [address], [place] [address] IMMUNIZATIONS No Information SOCIAL HISTORY Tobacco Use: [...] 2015 Active (90 Base) MCG/ACT hrs Creon 74342-62170 UNIT take by mouth 1 capsule 3 Active times a day as directed Orally 1 tab with each meal for 90 days Aspirin 81 81 MG 1 tablet Orally Once a 12 Sep, 2016 N ot-Taking day Hydrocodone-Acetaminophen (Schedule II Drug) [...] Information RESULTS No Results REASON FOR VISIT Cancel Rx MEDICAL (GENERAL) HISTORY Type Description Date Medical [...] Information ASSESSMENTS No Information PLAN OF TREATMENT Medication Medication Name Sig Start Date Stop Date Protonix 40 MG 1 tablet Orally Once a day for 90 days Carvedilol 25 MG take 1 tablet by mouth twice a day Orally BID for 90 days Creon 46784-37794 UNIT take by mouth 1 capsule 3 times a day as directed Orally 1 tab with each meal for 90 days Clonazepam 1 MG 1 tablet Orally BID PRN SEVERE ANXIETY Mar, 2 020 for 30 days Next Appt Details Provider Name:Reese Jenkins, 2020-04-20 0 3:00:00 PM, [address], [place], [address], Insurance Providers Payer Name Payer Address Payer Insured Patient Coverage Cover age Phone Name Relationship to Start Date End Date Insured [facility] [address] [address] [phone] Alfred Escobar [facility] [address] [address] [facility] [address] [phone] Alfred Escobar self [facility] [address] [address] MEDICARE Attn Part B [id number] Alfred Escobar [employer] Claims [address] [facility] [address]
[2020-03-31] MEDS ORDERED: NA CHLORIDE 0.9% 1,000 ML ONE (23:12)
[2020-03-31 23:13] LABS: Absolute Lymphocytes (CBC) 2.3 K/uL (0.7-4.9); Basophils % 0.3 % (0-1.3); Hematocrit 42.6 % (39.6-49.0); Lymphocytes % 30.3 % (15.3-44.8); MPV 7.9 fL (7.6-11.3); RBC Red Blood Cell Count 4.74 M/uL (4.33-5.43)
[2020-03-31 23:14] LABS: Protime INR 1.08
[2020-03-31 23:26] LABS: ALT/SGPT 21 U/L (12-78); AST/SGOT 12 U/L (15-37); Albumin 3.7 g/dL (3.4-5.0); Alkaline Phosphatase 48 U/L (45-117); BUN Blood Urea Nitrogen 14 mg/dL (7-18); Bicarbonate 29 mmol/L (21-32); Bilirubin Direct 0.2 mg/dL (0-0.2); Bilirubin Total 0.6 mg/dL (0.2-1.0); Glucose Level 85 mg/dL (74-106); Magnesium 2.2 mg/dL (1.8-2.4); NT PRO-BNP 47 pg/mL (<125); Potassium 3.8 mmol/L (3.5-5.1); Protein, Total 6.9 g/dL (6.4-8.2); Sodium Level 140 mmol/L (136-145); Troponin (Emerg Dept Use Only) < 0.02 ng/mL (0.0-0.045)
--- NOTE | 2020-04-01 02:00 | EDPHYS ---
Physician Documentation [facility] Name: Alfredo Escobar Age: 59 yrs Sex: Male : 1960 Arrival Date: 03/31/2020 Time: 21:38 Bed 17 Private MD: ED Physician Pablo Swartz HPI: 03/31 22:54 This 59 yrs old Male presents to ER via Ambulatory with complaints of pkl Headache, Dizziness, High Blood Pressure. 22:54 The patient complains of pain to the top of head and forehead. The patient describes pkl the headache as intermittent. Onset: The symptoms/episode began/occurred just prior to arrival, 2 hour(s) ago. Associated signs and symptoms: Pertinent positives: nausea, unsteady gait. Patient said he has these symptoms off and on for a few months. Historical: - Allergies: 21:55 Bactrim; ca1 21:55 Iodinated Contrast Media - IV Dye; ca1 21:55 Iodine; ca1 21:55 Keflex; ca1 21:55 Latex, Natural Rubber; ca1 21:55 Levaquin; ca1 21:55 promethazine HCl; ca1 21:55 Toradol; ca1 - Home Meds: 21:55 calcipotriene 0.005 % Topical oint 2 times per day [Active]; carvedilol 25 mg Oral tab ca1 2 times per day [Active]; clonazepam 2 mg Oral tab 2 times per day [Active]; Creon 54801 units Oral 3 times per day [Active]; [place] 10-325 mg Oral tab twice a day [Active]; pantoprazole 40 mg Oral TbEC once daily [Active]; Ventolin HFA 90 mcg/actuation Nebulizer HFAA 2 puffs every 8 hours [Active]; - PMHx: 21:55 Anxiety; Arthritis; Crohn's; GERD; Pancreatitis; PTSD; ca1 - PSHx: 21:55 None; ca1 - Immunization history:: Adult Immunizations up to date, Flu vaccine is not up to date. - Social history:: Smoking status: Patient denies any tobacco usage or history of. ROS: 22:54 Eyes: Negative for injury, pain, redness, and discharge, ENT: Negative for injury, pkl pain, and discharge, Neck: Negative for injury, pain, and swelling, Cardiovascular: Negative for chest pain, palpitations, and edema, Respiratory: Negative for shortness of breath, cough, wheezing, and pleuritic chest pain, Abdomen/GI: Negative for abdominal pain, nausea, vomiting, diarrhea, and constipation, Back: Negative for injury and pain, : Negative for injury, bleeding, discharge, and swelling, MS/Extremity: Negative for injury and deformity, Skin: Negative for injury, rash, and discoloration. 22:54 Neuro: Positive for dizziness, headache, unsteady gait. Exam: 22:54 Head/Face: Normocephalic, atraumatic. Eyes: Pupils equal round and reactive to light, pkl extra-ocular motions intact. Lids and lashes normal. Conjunctiva and sclera are non-icteric and not injected. Cornea within normal limits. Periorbital areas with no swelling, redness, or edema. ENT: Nares patent. No nasal discharge, no septal abnormalities noted. Tympanic membranes are normal and external auditory canals are clear. Oropharynx with no redness, swelling, or masses, exudates, or evidence of obstruction, uvula midline. Mucous membranes moist. Neck: Trachea midline, no thyromegaly or masses palpated, and no cervical lymphadenopathy. Supple, full range of motion without nuchal rigidity, or vertebral point tenderness. No Meningismus. Chest/axilla: Normal chest wall appearance and motion. Nontender with no deformity. No lesions are appreciated. Cardiovascular: Regular rate and rhythm with a normal S1 and S2. No gallops, murmurs, or rubs. Normal PMI, no JVD. No pulse deficits. Respiratory: Lungs have equal breath sounds bilaterally, clear to auscultation and percussion. No rales, rhonchi or wheezes noted. No increased work of breathing, no retractions or nasal flaring. Abdomen/GI: Soft, non-tender, with normal bowel sounds. No distension or tympany. No guarding or rebound. No evidence of tenderness throughout. Back: No spinal tenderness. No costovertebral tenderness. Full range of motion. Skin: Warm, dry with normal turgor. Normal color with no rashes, no lesions, and no evidence of cellulitis. MS/ Extremity: Pulses equal, no cyanosis. Neurovascular intact. Full, normal range of motion. 22:54 Neuro: Orientation: is normal, Mentation: is normal, Cranial nerves: grossly normal, Cerebellar function: dysmetria is noted on both sides, the patient is unable to track heel to farooq on both sides, Motor: is normal, Sensation: is normal, Gait: is unsteady. Vital Signs: 21:51 BP 126 / 76; Pulse 67; Resp 17 S; Temp 97.6(TE); Pulse Ox 97% on R/A; Weight 78.02 kg ca1 (R); Height 5 ft. 10 in. (177.80 cm) (R); Pain 08/12; 04/01 00:21 BP 130 / 76; Pulse 59; Resp 18; Pulse Ox 97% ; mg2 02:37 BP 118 / 76; Pulse 58; Resp 18; Pulse Ox 100% on R/A; mg2 03/31 21:51 Body Mass Index 24.68 (78.02 kg, 177.80 cm) ca1 MDM: 03/31 22:29 Patient medically screened. pkl 04/01 01:56 Data reviewed: vital signs, nurses notes, lab test result(s), EKG, radiologic studies, pkl CT scan, plain films. ED course: Talked to Channing Cosby for observation ( Dr. Clark ). 03/31 22:45 Order name: Basic Metabolic Panel; Complete Time: 23:30 pkl 03/31 22:45 Order name: CBC with Diff; Complete Time: 23:30 pkl 03/31 22:45 Order name: LFT's; Complete Time: 23:30 pkl 03/31 22:45 Order name: Magnesium; Complete Time: 23:30 pkl 03/31 22:45 Order name: NT PRO-BNP; Complete Time: 23:30 pkl 03/31 22:45 Order name: PT-INR; Complete Time: 23:30 pkl 03/31 22:45 Order name: Troponin (emerg Dept Use Only); Complete Time: 23:30 pkl 04/01 04:38 Order name: COVID-19 mg2 04/01 05:48 Order name: Lipid Profile; Complete Time: 19:03 EDMS 04/01 05:48 Order name: T4 Free; Complete Time: 19:03 EDMS 04/01 05:48 Order name: Thyroid Stimulating Hormone; Complete Time: 19:03 EDMS 04/01 05:48 Order name: Folic Acid, (Folate); Complete Time: 19:03 EDMS 04/01 05:48 Order name: Vitamin B12 Level; Complete Time: 19: EDMS 03/31 22:45 Order name: XRAY Chest (1 view); Complete Time: 19: pkl 03/31 22:45 Order name: EKG; Complete Time: 22:46 pkl 03/31 22:45 Order name: Cardiac monitoring; Complete Time: :59 pkl 03/31 22:45 Order name: EKG - Nurse/Tech; Complete Time: :59 pkl 03/31 22:45 Order name: IV Saline Lock; Complete Time: :59 pkl 03/31 22:45 Order name: Labs collected and sent; Complete Time: :59 pkl 03/31 22:45 Order name: O2 Per Protocol; Complete Time: : pkl 03/31 22:45 Order name: O2 Sat Monitoring; Complete Time: :59 pkl 03/31 22:47 Order name: CT Head Angio; Complete Time: 19: pkl 03/31 23:30 Order name: CT Head Brain wo Cont; Complete Time: 19: pkl 04/01 11:01 Order name: MRI; Complete Time: 19: EDMS 04/01 12:03 Order name: Diet Regular Pedi: GUEST TRAY; Complete Time: 12:04 ss Administered Medications: 03/31 22:59 Drug: NS 0.9% 1000 ml Route: IV; Rate: 125 ml/hr; Site: right antecubital; mg2 04/01 02:38 Follow up: IV Status: Infusion continued upon admission mg2 Disposition: 04/01/20 01:59 Hospitalization ordered by Grover Campbell for Observation. Preliminary diagnosis is Acute headache. Dizziness. Unsteady gait. - Bed requested for [facility] ER HOLD. - Status is Observation. hb - Condition is Stable. - Problem is new. - Symptoms are unchanged. Signatures: Dispatcher [employer] EDMS Pablo Swartz MD MD pkl Channing Cosby FNP-C DRILLER MULTIPLE SPINDLE-Cla1 Ramila Gregory RN RN tl1 Dorothea Petty RN RN hb Kirit Crespo, MARY RN mg2 Chelo Nolasco RN RN ca1 Corrections: (The following items were deleted from the chart) 03/31 22:46 22:46 CREATININE, SERUM+C.LAB.BRZ ordered. EDMS EDMS 04/01 02:07 01:59 Hospitalization Ordered by Renard Clark DO for Observation. Preliminary la1 diagnosis is Acute headache. Dizziness. Unsteady gait. Bed requested for Telemetry/MedSurg (observation). Status is Observation. Condition is Stable. Problem is new. Symptoms are unchanged. pkl 02:29 02:07 04/01/2020 01:59 Hospitalization Ordered by Grover Campbell MD for Observation. tl1 Preliminary diagnosis is Acute headache. Dizziness. Unsteady gait. Bed requested for Telemetry/MedSurg (observation). Status is Observation. Condition is Stable. Problem is new. Symptoms are unchanged. la1 12:55 02:29 04/01/2020 01:59 Hospitalization Ordered by Grover Campbell MD for Observation. hb Preliminary diagnosis is Acute headache. Dizziness. Unsteady gait. Bed requested for [facility] ER HOLD. Status is Observation. Condition is Stable. Problem is new. Symptoms are unchanged. tl1
--- NOTE | 2020-04-01 02:00 | ER ---
Nurse's Notes [facility] Name: Alfredo Escobar Age: 59 yrs Sex: Male : 1960 Arrival Date: 03/31/2020 Time: 21:38 Bed 17 Private MD: Diagnosis: Acute headache. Dizziness. 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 Reports nausea, dizzy, weak legs, and off balance. Coronavirus screen: Client denies travel out of the [place] in the last 14 days. fatigue, nausea, Client presents with at least one sign or symptom that may indicate coronavirus-19. Standard/surgical mask placed on the client. Provider contacted for isolation considerations. The client reports previous COVID testing was negative. Date of collection: February 2020. Ebola Screen: Patient negative for fever greater than or equal to 101.5 degrees Fahrenheit, and additional compatible Ebola Virus Disease symptoms Patient denies exposure to infectious person. Patient denies travel to an Ebola-affected area in the 21 days before illness onset. No symptoms or risks identified at this time. Initial Sepsis Screen: Does the patient meet any 2 criteria? No. Patient's initial sepsis screen is negative. Does the patient have a suspected source of infection? No. Patient's initial sepsis screen is negative. Risk Assessment: Do you want to hurt yourself or someone else? Patient reports no desire to harm self or others. Onset of symptoms was March 31, 2020. 21:51 Method Of Arrival: Ambulatory ca1 21:51 Acuity: BUCKY 3 ca1 Triage Assessment: 04/01 00:24 Headache History: The patient has had previous headaches. General: Appears in no mg2 apparent distress. comfortable, Behavior is calm, cooperative. Pain: Also complains of no other associated symptoms. Pain: Complains of pain in top of head Pain currently is 3 out of 10 on a pain scale. Pain began gradually. EENT: No signs and/or symptoms were reported regarding the EENT system. Neuro: Level of Consciousness is awake, alert, obeys commands, Oriented to person, place, time, situation. Cardiovascular: Capillary refill < 3 seconds Patient's skin is warm and dry. Respiratory: Airway is patent Respiratory effort is even, unlabored, Respiratory pattern is regular, symmetrical. GI: Reports nausea. : No signs and/or symptoms were reported regarding the genitourinary system. Derm: Skin is intact, is healthy with good turgor, Skin is pink, warm \T\ dry. normal. Musculoskeletal: Circulation, motion, and sensation intact. Capillary refill < 3 seconds. Historical: - Allergies: 03/31 21:55 Bactrim; ca1 21:55 Iodinated Contrast Media - IV Dye; ca1 21:55 Iodine; ca1 21:55 Keflex; ca1 21:55 Latex, Natural Rubber; ca1 21:55 Levaquin; ca1 21:55 promethazine HCl; ca1 21:55 Toradol; ca1 - Home Meds: 21:55 calcipotriene 0.005 % Topical oint 2 times per day [Active]; carvedilol 25 mg Oral tab ca1 2 times per day [Active]; clonazepam 2 mg Oral tab 2 times per day [Active]; Creon 74505 units Oral 3 times per day [Active]; [place] 10-325 mg Oral tab twice a day [Active]; pantoprazole 40 mg Oral TbEC once daily [Active]; Ventolin HFA 90 mcg/actuation Nebulizer HFAA 2 puffs every 8 hours [Active]; - PMHx: 21:55 Anxiety; Arthritis; Crohn's; GERD; Pancreatitis; PTSD; ca1 - PSHx: 21:55 None; ca1 - Immunization history:: Adult Immunizations up to date, Flu vaccine is not up to date. - Social history:: Smoking status: Patient denies any tobacco usage or history of. Screenin/28 00:23 Abuse screen: Denies threats or abuse. Denies injuries from another. Nutritional mg2 screening: No deficits noted. Tuberculosis screening: No symptoms or risk factors identified. Fall Risk IV access (20 points). Assessment: 03/31 23:50 General: Appears in no apparent distress. comfortable. Pain: Complains of pain in head. mg2 23:50 Neuro: Level of Consciousness is awake, alert, obeys commands, Oriented to person, mg2 place, time, situation. Neuro: Reports dizziness, headache. Cardiovascular: Capillary refill < 3 seconds Patient's skin is warm and dry. Respiratory: Airway is patent Respiratory effort is even, unlabored, Respiratory pattern is regular, symmetrical. GI: Reports nausea. : No signs and/or symptoms were reported regarding the genitourinary system. EENT: No signs and/or symptoms were reported regarding the EENT system. Derm: Skin is intact, is healthy with good turgor, Skin is pink, warm \T\ dry. normal. Musculoskeletal: Circulation, motion, and sensation intact. Capillary refill < 3 seconds. 04/01 01:12 Reassessment: Patient appears in no apparent distress at this time. Patient and/or mg2 family updated on plan of care and expected duration. Pain level reassessed. Patient is alert, oriented x 3, equal unlabored respirations, skin warm/dry/pink. 01:13 Reassessment: patient is back from CT scan. mg2 02:15 Reassessment: MILO PARKER at bedside speaking to the patient. mg2 Vital Signs: 03/31 21:51 BP 126 / 76; Pulse 67; Resp 17 S; Temp 97.6(TE); Pulse Ox 97% on R/A; Weight 78.02 kg ca1 (R); Height 5 ft. 10 in. (177.80 cm) (R); Pain 3/10; 04/01 00:21 BP 130 / 76; Pulse 59; Resp 18; Pulse Ox 97% ; mg2 02:37 BP 118 / 76; Pulse 58; Resp 18; Pulse Ox 100% on R/A; mg2 03/31 21:51 Body Mass Index 24.68 (78.02 kg, 177.80 cm) ca1 ED Course: 03/31 21:38 Patient arrived in ED. ag3 21:54 Triage completed. ca1 21:55 Arm band placed on right wrist. ca1 22:29 Pablo Swartz MD is Attending Physician. pkl 22:48 Kirit Crespo RN is Primary Nurse. mg2 23:36 XRAY Chest (1 view) In Process Unspecified. EDMS 23:55 Inserted saline lock: 20 gauge in right antecubital area, using aseptic technique. mg2 Blood collected. 04/01 00:24 Patient has correct armband on for positive identification. mg2 00:24 No provider procedures requiring assistance completed. mg2 00:31 Door closed. Warm blanket given. mg2 01:31 CT Head Angio In Process Unspecified. EDMS 01:31 CT Head Brain wo Cont In Process Unspecified. EDMS 01:58 Renard Clark DO is Hospitalizing Provider. pkl 02:07 Grover Campbell MD is Hospitalizing Provider. la1 02:37 Patient admitted, IV remains in place. mg2 Administered Medications: 03/31 22:59 Drug: NS 0.9% 1000 ml Route: IV; Rate: 125 ml/hr; Site: right antecubital; mg2 04/01 02:38 Follow up: IV Status: Infusion continued upon admission mg2 Outcome: 01:59 Decision to Hospitalize by Provider. pkl 02:37 Admitted to ER Hold. Please see [facility] for further documentation. mg2 02:37 Condition: stable mg2 12:55 Patient left the ED. hb Signatures: Dispatcher [employer] EDMS Pablo Swartz MD MD pkl Channing Cosby, CLOTH TESTER QUALITY-C CLOTH TESTER QUALITY-Cla1 Dorothea Petty RN RN Kirit Crespo RN RN mg2 Dorene Abdul ag3 Chelo Nolasco RN RN ca1 Corrections: (The following items were deleted from the chart) :03/31 00:55 General: Appears in no apparent distress. comfortable, mg2 mg2 04/01 00:55 Pain: Complains of pain in head mg2 mg2 04/01 00:55 Neuro: Level of Consciousness is awake, alert, obeys commands, Oriented to mg2 person, place, time, situation, mg2 04/01 00:55 Cardiovascular: Capillary refill < 3 seconds Patient's skin is warm and mg2 dry. mg2 04/01 00:55 Respiratory: Airway is patent Respiratory effort is even, unlabored, mg2 Respiratory pattern is regular, symmetrical, mg2 04/01 00:55 GI: Reports nausea, mg2 mg2 04/01 00:55 : No signs and/or symptoms were reported regarding the genitourinary mg2 system. mg2 04/01 00:55 Neuro: Reports dizziness, headache mg2 mg2 04/01 00:55 EENT: No signs and/or symptoms were reported regarding the EENT system. mg2 mg2 04/01 00:55 Derm: Skin is intact, is healthy with good turgor, Skin is pink, warm \T\ mg2 dry. normal, mg2 04/01 00:23 03/31 00:55 Musculoskeletal: Circulation, motion, and sensation intact. Capillary mg2 refill < 3 seconds, mg2
--- NOTE | 2020-04-01 02:36 | P.HP ---
Certification for Inpatient Patient admitted to: Observation With expected LOS: <2 Midnights Patient will require the following post-hospital care: None Practitioner: I am a practitioner with admitting privileges, knowledge of patient current condition, hospital course, and medical plan of care. Services: Services provided to patient in accordance with Admission requirements found in Title 42 Section 412.3 of the Code of Federal Regulations <Channing Cosby - Last Filed: 04/01/20 02:31> Patient History Date of Service: 04/01/20 Primary Care Provider: Dr. Jenkins Reason for admission: Gait disturbance, ataxia History of Present Illness: 51-year-old male with history of gastric ulcers, Crohn's disease, hypertension, chronic pancreatitis, psoriatic arthritis presents emergency department for headache, dizziness, gait disturbances. Patient reports he has been having problems with dizziness and gait disturbances on and off over the course of the last few weeks. Patient is labs unremarkable, CT brain with and without contrast without acute findings. Physical exam remarkable for limb atax ia in all extremities with intention tremor present in all extremities. Patient able to sit up straight without any difficulty while being spoken to but when asked to close his eyes he began swaying side to side. When asked to ambulate patient had significant difficulty and almost fell over. Both [id number] and [id number] tests patient was able to complete but with significant intention tremor in all extremities. Pupils equal round reactive to light and accommodating, EOMs intact. Speech clear and appropriate. Patient also reports pain in feet and hands intermittently. In general neurological exam nonfocal and does not appear to follow any straightforward clinical pathways. 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 Duties abnormal clinical findings ED provider wishes to admit patient for further evaluation and management. - Past Medical/Surgical History Diabetic: No -: GERD -: HTN -: chronic pancreatitis -: Crohn's -: PTSD -: Psoriatic Arthritis -: anxiety -: polyp removal -: hernia repair - Social History Smoking Status: Never smoker Alcohol use: No CD- Drugs: No Caffeine use: Yes Place of Residence: Home <AleaChanning - Last Filed: 04/01/20 02:31> Date of Service: 04/01/20 <Grover Campbell - Last Filed: 04/01/20 13:42> Allergies cephalexin monohydrate [From Keflex] Allergy (Verified 09/07/11 22:18) SWELLING iodine Allergy (Unverified 10/24/15 04:47) Unknown ketorolac Allergy (Unverified 05/13/14 13:05) Unknown ketorolac tromethamine [From Toradol] Allergy (Verified 09/07/11 22:17) SWELLING levofloxacin [From Levaquin] Allergy (Verified 09/07/11 22:17) SWELLING promethazine HCl [From Phenergan] Allergy (Verified 09/07/11 22:18) SWELLING Sulfa (Sulfonamide Antibiotics) Allergy (Unverified 05/13/14 13:05) Unknown sulfamethoxazole [From Bactrim] Allergy (Verified 09/07/11 22:18) SWELING trimethoprim [From Bactrim] Allergy (Verified 09/07/11 22:18) SWELING vancomycin Allergy (Unverified 10/24/15 04:47) Unknown Latex, [place] Allergy (Uncoded 10/24/15 04:47) Unknown levofloxacin Allergy (Uncoded 05/13/14 13:05) Unknown Home Medications: Albuterol Sulfate [Ventolin Hfa] 2 puff IH TID PRN 05/11/18 Hydrocodone Bit/Acetaminophen [Hydrocodon-Acetaminoph 7.5-325] 1 tab PO QID PRN 05/11/18 Lipase/Protease/Amylase [Creon Dr 12,000 Units Capsule] 24,000 units PO TIDWM 05/11/18 Pantoprazole [Protonix Tab*] 40 mg PO DAILY 05/11/18 carvediloL [Carvedilol] 25 mg PO BID 05/11/18 clonazePAM [Clonazepam] 1 mg PO BID 05/11/18 Ciprofloxacin HCl [Cipro 500 MG Tablet] 500 mg PO BID 10 Days #20 tab 12/11/19 metroNIDAZOLE [Flagyl*] 500 mg PO Q8H 10 Days #30 tablet 12/11/19 predniSONE [Deltasone*] 10 mg PO BID #14 tab 12/11/19 Review of Systems 10-point ROS is otherwise unremarkable Neurological: Weakness, Numbness, Incoordination, As per HPI <Channing Cosby - Last Filed: 04/01/20 02:31> Physical Examination - Physical Exam General: Alert, In no apparent distress HEENT: Atraumatic, PERRLA, Mucous membr. moist/pink, EOMI Neck: Supple, 2+ carotid pulse no bruit, No LAD Respiratory: Clear to auscultation bilaterally, Normal air movement Cardiovascular: Regular rate/rhythm, Normal S1 S2 Gastrointestinal: Normal bowel sounds, No tenderness Musculoskeletal: No tenderness Integumentary: No rashes Neurological: Normal speech, Normal strength at 5/5 x4 extr, Normal tone, Normal affect, Abnormal gait (Unsteady gait) - Studies Laboratory Data (last 24 hrs) 03/31/20 22:50: PT 12.7 H, INR 1.08 03/31/20 22:50: WBC 7.7, Hgb 14.5, Hct 42.6, Plt Count 185 03/31/20 22:50: Sodium 140, Potassium 3.8, BUN 14, Creatinine 0.85, Glucose 85, Magnesium 2.2, Total Bilirubin 0.6, AST 12 L, ALT 21, Alkaline Phosphatase 48 <Channing Cosby - Last Filed: 04/01/20 02:31> - Studies Laboratory Data (last 24 hrs) 03/31/20 22:50: PT 12.7 H, INR 1.08 03/31/20 22:50: WBC 7.7, Hgb 14.5, Hct 42.6, Plt Count 185 03/31/20 22:50: Sodium 140, Potassium 3.8, BUN 14, Creatinine 0.85, Glucose 85, Magnesium 2.2, Total Bilirubin 0.6, AST 12 L, ALT 21, Alkaline Phosphatase 48 <Grover Campbell - Last Filed: 04/01/20 13:42> Assessment and Plan - Plan Assessment Gait disturbance, ataxia Hypertension GERD Chronic pancreatitis Plan Gait disturbance, ataxia: CT brain with and without contrast within normal limits. Neurology consult in place, MRI ordered. Will obtain folate and B12 levels. Patient denies chronic alcohol intake. DVT prophylaxis Lovenox 40 mg subcutaneous once daily. Appreciate further input from neurology. Hypertension: Obtain and continue home medications GERD: Continue Protonix. Chronic pancreatitis: Obtain and continue home medications. Discharge Plan: Home Plan to discharge in: 24 Hours - Advance Directives Does patient have a Living Will: No Does patient have a Durable POA for Healthcare: No - Code Status/Comfort Care Code Status Assessed: Yes (Full code) Critical Care: No Time Spent Managing Pts Care (In Minutes): 55 <Channing Cosby - Last Filed: 04/01/20 02:31> Physician Review Additional Text: Plan of care discussed with Channing Cosby, and I agree with the management plan as noted above. <Grover Campbell - Last Filed: 04/01/20 13:42>
[2020-04-01] MEDS ORDERED: ACETAMINOPHEN 500 MG TAB PO PRN (03:08)
[2020-04-01] MEDS ORDERED: ONDANSETRON 4 MG/2 ML VIAL IV PRN (03:08)
[2020-04-01] MEDS ORDERED: HYDROCODONE/APAP 7.5/325 MG TAB PO PRN (03:08)
[2020-04-01] MEDS ORDERED: HYDROCODONE/APAP 7.5/325 MG TAB ONE (03:20)
[2020-04-01] MEDS ORDERED: ONDANSETRON 4 MG/2 ML VIAL ONE (03:21)
[2020-04-01 03:46] VITALS: BMI 24.6
[2020-04-01 05:47] LABS: Folic Acid, (Folate) > 20.0 ng/mL (3.1-17.5); HDL Cholesterol 37 mg/dL (40-60); LDL Cholesterol, Calculated 73 (<130)
[2020-04-01] MEDS ORDERED: POTASSIUM 25 MEQ EFFERV TAB PO ONE (06:17)
[2020-04-01] MEDS ORDERED: PANTOPRAZOLE 40MG TABLET PO SCH (06:30)
[2020-04-01] MEDS ORDERED: POTASSIUM 25 MEQ EFFERV TAB ONE (06:34)
[2020-04-01] MEDS ORDERED: PANTOPRAZOLE 40MG TABLET PO ONE (06:35)
[2020-04-01] MEDS ORDERED: NA CHLORIDE 0.9% 1,000 ML ONE (08:34)
--- NOTE | 2020-04-01 08:51 | RAD REPORT ---
EXAM DESCRIPTION: RAD - Chest Single View - 03/31/2020 11:35 pm CLINICAL HISTORY: dizziness Chest pain. COMPARISON: Chest Single View dated 02/27/2020; Chest Single View dated 10/12/2019; Chest Single View d ated 09/10/2019; Chest Single View dated 05/29/2019 FINDINGS: Portable technique limits examination quality. The lungs are grossly clear. The heart is normal in size. No displaced fractures. IMPRESSION: No acute intrathoracic process suspected.
[2020-04-01] MEDS ORDERED: FOLIC ACID 1 MG TABLET PO SCH (09:00)
[2020-04-01] MEDS ORDERED: ENOXAPARIN 40 MG/0.4 ML SQ SCH (09:00)
[2020-04-01] MEDS ORDERED: FOLIC ACID 1 MG TABLET ONE (10:06)
[2020-04-01] MEDS ORDERED: ENOXAPARIN 40 MG/0.4 ML SQ ONE (10:06)
--- NOTE | 2020-04-01 10:16 | RAD REPORT ---
EXAM DESCRIPTION: CTA of the head with contrast. CLINICAL HISTORY: 59 years, Male, unsteady gait COMPARISON: 03/14/2020 TECHNIQUE: Axial CTA images of the head obtained following the uncomplicated intravenous administrat ion of iodinated contrast. 3-D/MIP reformatted images available. FINDINGS: CTA head: In the anterior circulation, the intracranial internal carotid arteries have normal course and calibe r. The internal carotid arteries bifurcate into widely patent A1 and M1 segments of the anterior and middle cerebral arteries respectively. No evidence of flow-limiting stenosis, aneurysm, occlusion, or dissection in the anterior circulation. The anterior communicating artery is patent. In the posterior circulation, the intracranial vertebral arteries combine to form a widely patent bas ilar artery. The basilar artery bifurcates into widely patent P1 segments of the posterior cerebral a rtery. No evidence of stenosis, aneurysm, occlusion, or dissection in the posterior circulation. No definite acute intracranial abnormality identified. No acute abnormality of the osseous calvarium. Paranasal sinuses and mastoid air cells are well aerated. IMPRESSION: 1. No evidence of large vessel occlusion, stenosis, or aneurysm of the intracranial sindy rial vasculature. This exam was performed according to our departmental dose-optimization program, which includes autom ated exposure control, adjustment of the mA and/or kV according to patient size and/or use of iterati ve reconstruction technique. Electronically signed by: Gerardo Recio 04/01/2020 1:48 AM CDT Due to temporary technical issues with the PACS/Fluency reporting system, reports are being signed by the in house radiologist without review as a courtesy to ensure prompt reporting. The interpreting r adiologist is fully responsible for the content of the report.
--- NOTE | 2020-04-01 10:17 | RAD REPORT ---
EXAM DESCRIPTION: CT of the head without contrast CLINICAL HISTORY: Unsteady gait COMPARISON: 03/14/2019 TECHNIQUE: Axial CT of the head obtained from the skull apex to the skull base without contrast. FINDINGS: No acute intracranial hemorrhage identified. No mass, mass effect, shift of the midline, a bnormal extra-axial fluid collection or CT evidence of acute ischemic change identified. The ventricu lar system and sulcal spaces are nonenlarged. Scattered areas of hypodensity throughout the suprate ntorial white matter are nonspecific and may be related to chronic small vessel ischemic change. The visualized paranasal sinuses and the mastoids are clear. No skull fracture identified. Visualiz ed orbits and globes are unremarkable. Atherosclerotic calcification of the intracranial internal car otid arteries. IMPRESSION: 1. No acute intracranial abnormality by CT criteria. This exam was performed according to our departmental dose-optimization program, which includes autom ated exposure control, adjustment of the mA and/or kV according to patient size and/or use of iterati ve reconstruction technique. Electronically signed by: Gerardo Recio 04/01/2020 1:41 AM CDT Due to temporary technical issues with the PACS/Fluency reporting system, reports are being signed by the in house radiologist without review as a courtesy to ensure prompt reporting. The interpreting r adiologist is fully responsible for the content of the report.
--- NOTE | 2020-04-01 11:00 | RAD REPORT ---
EXAM DESCRIPTION: MRI - Brain Wo Cont - 04/01/2020 10:04 am CLINICAL HISTORY: Gait disturbance, ataxia Headache, drowsiness COMPARISON: Head Brain Wo Cont dated 04/01/2020 TECHNIQUE: Multi-sequence, multiplanar MR imaging of the brain was performed without contrast. FINDINGS: No intracranial hemorrhage, hydrocephalus or extra-axial fluid collections.Minimal T2 and FLAIR hyperintensity in the periventricular region. No edema or shift of midline structures. No findi ngs to suspect brain mass. DWI is negative for acute CVA. Midline structures are normally formed. Mastoid air cells and paranasal sinuses are clear. IMPRESSION: No acute or aggressive intracranial abnormalities.
[2020-04-01 12:08] VITALS: BP 110/0; TEMP 97.7
[2020-04-01 13:09] VITALS: O2SAT 100
== END 2020-04-01 12:56 | disposition home or self-care (01) ==
LOC: ER 21:36 → ERHOLD 04-01 02:05
PROVIDERS: ADMIT Family Medicine; ATTEND Hospitalist
DX: R26.9 Unspecified abnormalities of gait and mobility (principal); R27.0 Ataxia, unspecified; K50.90 Crohn's disease, unspecified, without complications; I10 Essential (primary) hypertension; L40.50 Arthropathic psoriasis, unspecified; Z20.828 Contact with and (suspected) exposure to other viral communicable diseases; Z87.11 Personal history of peptic ulcer disease; K86.1 Other chronic pancreatitis; K21.9 Gastro-esophageal reflux disease without esophagitis; F43.10 Post-traumatic stress disorder, unspecified; F41.9 Anxiety disorder, unspecified
CPT/HCPCS: 96361; 93005; 85025; 80048; 36415; 83735; 85610; 80061; 80076; 84443; 84484; 84439; 82746; 82607; 83880; 70450; 70496; 71045; 70551; 96360; 99285; U0002; Q9967; J1650; J7030 ×2; J2405; G0378 ×2

== ENCOUNTER 2020-04-14 22:19 | Emergency (ER) | payer OTHER ==
--- OUTSIDE RECORDS SUMMARY | 2020-04-14 22:22 | XMS REPORT ---
:1960 Author Organization [facility] Address [address]reon, 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 2157560462829 4 cataplexy Problem Other chronic K86.1 Active 566780492 pancreatitis Problem Acute upper J06.9 Active 09000343 respiratory infection Problem Disc disorder M51.9 Active 44956889 Problem Post-traumatic F43.10 Active 15743406 stress disorder Problem Arthropathic L40.50 Active 61762994 psoriasis Problem Generalized anxiety F41.1 Active 85905225 disorder Problem Essential (primary) I10 Active 04085543 hypertension Problem Lumbar sprain, S33.5XXA Active 045677705 initial encounter Problem Hyperglycemia R73.9 Active 23837780 Problem Acute tonsillitis, J03.90 Active 69067199 unspecified etiology Problem Asymptomatic R31.21 Active 329161914 microscopic hematuria Problem Crohn''s disease K50.90 Active 26793215 without complication, unspecified gastrointestinal tract location Problem Encounter for Z71.9 Active 423794267 counseling Problem Cervical M47.812 Active 911816467 spondylosis without myelopathy Problem Chronic fatigue R53.82 Active 60087770 Problem BMI 29.0-29.9,adult Z68.29 Active 62305176 Problem Hospital discharge Z09 Active 580465545 follow-up Problem Gastro-esophageal K21.9 Active 242973950 reflux disease without esophagitis Problem 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 Active 663990708 obs/LUTS Problem Abnormal blood R73.09 Active 297723797 sugar Problem Chronic pain G89.4 Active 681809532 syndrome Problem Essential I10 Active 93362368 hypertension Problem Wheezing R06.2 Active 58277722 Problem Nausea R11.0 Active 933425176 Problem Panic disorder with F40.01 Active 97632127 agoraphobia ALLERGIES Allergen (clinical drug Drug/Non Drug Reaction Allergy Type Onset D ate Status ingredient) Allergy documented on EMR promethazine Phenergan([facility] hives Drug Allergy Active Code:[address]- 01) cephalexin Keflex([facility] rash Drug Allergy Active Code:[address]- 01) sulfamethoxazole / Bactrim DS([facility] rash Drug Allergy Active trimethoprim Code:[address]- 01) Levaquin stops breathing Drug Allergy Active eggs Rash Non Drug Active Allergy ENCOUNTERS from 1960 to 2020-03-18 Encounter Location Date Provider Diagnosis [facility] [place] [address] Lange [facility] [place], [facility] Crohn''s disease without Drive Family [address], [place] [address] unspecified gastrointestina l tract location K50.90 ; [...] 2015 Active (90 Base) MCG/ACT hrs Creon [address]4533-74014 UNIT take by mouth 1 capsule 3 [...] day Orally BID for 90 days Creon 42578-83018 UNIT take by mouth 1 capsule 3 [...] Name:Reese Jenkins, 2020-04-20 0 3:00:00 PM, [address], [address], [place], [address], Insurance Providers Payer Name Payer Address Payer Insured Patient Coverage Cover age Phone Name Relationship to Start Date End Date Insured [employer] [address] [phone] Alfred Escobar [facility] [address] [address] MEDICARE Attn Part B [id number] Alfred Escobar [employer] Claims [address] [facility] [address] [employer] [address] [address] [phone] Alfred Escobar [facility] [address] [address]
--- OUTSIDE RECORDS SUMMARY | 2020-04-14 22:22 | XMS REPORT | Continuity of Care Document ---
:1960 Author Organization [facility] t Address [address] [place] [address] Care Team Providers Name Role Phone Theo Hernandez NP Attending Clinician Mau Armstrong Attending Clinician Problems Condition Condition Condition Status Onset Resolution Last Treating Co mments Source Name Details Category Date Date Treatment Clinician Date Hypertensi Problem Active 2019-04-22 M emoria ve 01:06:38 l disorder, [place] systemic Hypertensi arterial ve (disorder) disorder, systemic arterial (disorder) Active Problem 04/22/2019 [facility] Memory Problem Active 2019-04-22 Memor ia impairment 01:06:38 l (finding) Memory Maggy nn impairment (finding) Active Problem 04/22/2019 [facility] Neck pain Problem Active 2019-04-22 Me moria (finding) 01:06:38 l Neck [place] pain (finding) Active Problem 04/22/2019 [facility] Paresthesi Problem Active 2019-04-22 M emoria a 01:06:38 l (finding) [place] Paresthesi a (finding) Active Problem 04/22/2019 [facility] Simple Problem Active 2019-04-22 Memor ia obesity 01:06:38 l (disorder) Simple Herm jessa obesity (disorder) Active Problem 04/22/2019 [facility] Tremor Problem Active 2019-04-22 Memor ia (finding) 01:06:38 l Tremor [place] (finding) Active Problem 04/22/2019 [facility] Dizziness [...] Source Social History 2019-03-28 18:18:16 2019-03-28 18:18:16 [facility] Evan Medications Ordered Filled Start Stop Current Ordering Indication Dosage Frequency Signature Comments Components Source Medication Medication Date Date Medication? Clinician (SIG) Name Name valsartan 2019 Yes 0 Memoria 40 mg oral 0-24 Refill(s) l tablet 19:12: Evan 00 pantoprazol Yes 40 mg = 1 M emoria e 40 mg 4-24 tab, PO, l oral 19:00: Daily, # [place] enteric 00 30 tab, 0 coated Refill(s) tablet carvedilol Yes 25 mg = 1 Me moria 25 mg oral 4-24 tab, PO, l tablet 19:00: BID, # 180 Maggy nn 00 tab, 0 Refill(s) Acetaminoph 2019- Yes 1 tab, PO, Memoria en 325 MG / 4-24 QID, 0 l Hydrocodone 19:00: Refill(s) H ermann Bitartrate 00 10 MG Oral Tablet [[place] 10/325] Clonazepam 2018- Yes 2 mg = 1 Mem oria 2 MG Oral 4-24 tab, PO, l Tablet 19:00: BID, # 60 Jun n [Klonopin] 00 tab, 0 Refill(s) Aspirin 81 Aspirin 81 2017- Yes Esthela [address] [facility] 4[facility]12 [place] [facility] Albuterol Albuterol 2015- Yes Esthela [address] [facility] Sulfate HFA Sulfate HFA 1-25 [place] [facility] - 00:[facility]: [facility]oria [facility] Clonazepam Clonazepam Yes Esthela TAKE [address] [facility] [place] TABLET BY [facility] Carvedilol Carvedilol Yes Esthela take [address] [facility] [place] tablet by [facility] - mouth Memoria twice a l day [facility] Famotidine Famotidine Yes Esthela [address] [facility] [place] at bedtime [facility] Protonix Protonix Yes Esthela [address] [place] [facility] Dicyclomine Dicyclomine Yes Esthela [address] HCl HCl [place] [facility] Ventolin Ventolin Yes Esthela [address] HFA HFA [place] [facility] l [facility] Valsartan Valsartan Yes Esthela [address] [facility] [place] [facility] Hydrocodone Hydrocodone Yes Esthela (Schedule [facility] -Acetaminop -Acetaminop [place] II Drug) [facility] - hen hen TK 1 T PO Memoria TID l [facility] Creon Creon 2019- No Esthela take by [facility] 07[facility]21 [place] mouth 1 [facility] - 00:00 capsule 3 Memoria :00 times a l day as Outpati directed ent Clinics Vital Signs Vital Name Observation Time Observation Value Comments Source Systolic (mm Hg) 2019-03-28 18:17:00 Lucio Gordon Diastolic (mm Hg) 2019-03-28 18:17:00 Will Gordon Heart Rate 2019-03-28 18:17:00 Noan Gordon Respitory Rate 2019-03-28 18:17:00 Gricel Wright [...] Diastolic (mm Hg) 2018-09-26 18:51:00 Mem orial [place] Procedures This patient has no known procedures. Encounters Start End Encounter Admission Attending Care Care Encounter Source Date/Time Date/Time Type Type Clinicians Facility Department ID 2020-03-18 2020-03-18 Outpatient [facility] [id number] [facility] 2020-03-18 2020-03-18 Out[facility] [id number] [facility] 2020-03-10 2020-03-10 Outpatient [facility] [id number] [facility] 2019-07-21 2019-07-21 Emergency [facility] [id number] 18:06:23 22:09:00 Camila Layton [id number] [place] [id number] [place] [id number] 2019-07-15 2019-07-15 [facility] [id number] [facility] 15:01:00 15:01:00 t Specialty/U Martha kes - Specialty rology [facility] a /Urology Clinic l Clinic Outpat[facility] ent Clinics 2019-07-09 2019-07-09 [facility] [id number] 16:46:00 16:46:00 t Specialty/U Martha kes - Specialty rology Memori a /Urology Clinic l Clinic Outpati ent Clinics 2019-07-08 2019-07-08 [facility] [id number] [address] 14:51:00 14:51:00 t Specialty/U Martha kes - Specialty rology Memori a /Urology Clinic l Clinic Outpati ent Clinics 2019-07-08 2019-07-08 [facility] [id number] 08:00:00 08:00:00 t Specialty/U Martha kes - Specialty rology Memori a /Urology Clinic l Clinic Outpati ent Clinics 2019-07-04 2019-07-04 [facility] [id number] 13:00:00 13:00:00 t Specialty/U Martha kes - Specialty rology Memori a /Urology Clinic l Clinic Outpati ent Clinics 2019-07-02 2019-07-02 [facility] [id number] 14:32:00 14:32:00 t [facility] Medicine Outpati ent Clinics 2019-06-27 2019-06-27 [facility] [id number] [facility] 14:40:00 14:40:00 t [facility] 2019-06-03 2019-06-03 [facility] [id number] 11:17:00 11:17:00 t [facility] Medicine Outpati ent Clinics 2019-04-18 2019-04-19 Outpatient MHMISCHER MHMISCHER [id number] 12:37:59 23:59:59 2019-04-11 2019-04-11 Outpatient ALICE ArmstrongMISCHER MHMISCHER [id number] 15:30:00 15:30:00 Pio 03 Mau 2019-04-09 2019-04-09 [facility] [id number] 15:20:00 15:20:00 t [facility] Medicine Outpati ent Clinics 2019-04-01 2019-04-02 Outpatient MHMISCHER MHMISCHER [id number] 08:58:44 23:59:59 2019-03-28 2019-03-28 Outpatient ALICE ArmstrongMISCHER MHMISCHER [id number] 13:00:00 23:59:59 Pio Mau 2019-02-19 2019-02-19 [facility] [id number] 14:40:00 14:40:00 t [facility] Medicine Outpati ent Clinics 2018-12-11 2018-12-11 [facility] [id number] 11:21:00 11:21:00 [facility] Medicine Outpati ent Clinics 2018-11-19 2018-11-19 [facility] [id number] 14:40:00 14:40:00 [facility] Medicine Outpati ent Clinics 2018-10-31 2018-10-31 Outpatient AZAR ArmstrongSCHLATHA MISCHER [id number] 13:45:00 13:45:00 Pio Mau 2018-09-26 2018-09-26 [id number] 13:30:00 23:59:59 Pio Mau 2018-09-17 2018-09-17 [facility] [id number] 16:00:00 16:00:00 [facility] Medicine Outpati ent Clinics 2018-08-02 2018-08-02 [facility] [id number] 16:07:00 16:07:00 [facility] Medicine Outpati ent Clinics 2018-08-02 2018-08-02 [facility] [id number] [address] 16:05:00 16:05:00 [facility] Medicine Outpati ent Clinics 2018-06-18 2018-06-18 [facility] [id number] 16:00:00 16:00:00 [facility] Medicine Outpati ent Clinics 2018-01-18 2018-01-18 [facility] [id number] 14:00:00 14:00:00 [facility] Medicine Outpati ent Clinics 2017-09-19 2017-09-19 [facility] [id number] 09:33:00 09:33:00 [facility] Medicine Outpati ent Clinics 2017-09-14 2017-09-14 Outpatient Malena Preston [id number] 13:00:00 13:00:00 [facility] Medicine Outpati ent Clinics 2017-09-12 2017-09-12 Outpatient Malena Preston [id number] 11:05:00 11:05:00 [facility] 2017-08-29 2017-08-29 Outpatient Malena Preston [id number] 15:30:00 15:30:00 [facility] Results This patient has no known results.
--- OUTSIDE RECORDS SUMMARY | 2020-04-14 22:22 | XMS REPORT ---
:1960 Author Organization [facility] Address [address], 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 7490580954239 4 cataplexy Problem Other chronic K86.1 Active 287279014 pancreatitis Problem Acute upper J06.9 Active 05639201 respiratory infection Problem Disc disorder M51.9 Active 88225763 Problem Post-traumatic F43.10 Active 58380984 stress disorder Problem Arthropathic L40.50 Active 26165571 psoriasis Problem Generalized anxiety F41.1 Active 07238716 disorder Problem Essential (primary) I10 Active 24296506 hypertension Problem Lumbar sprain, S33.5XXA Active 637429360 initial encounter Problem Hyperglycemia R73.9 Active 72591800 Problem Acute tonsillitis, J03.90 Active 06842738 unspecified etiology Problem Asymptomatic R31.21 Active 751811957 microscopic hematuria Problem Crohn''s disease K50.90 Active 54864022 without complication, unspecified gastrointestinal tract location Problem Encounter for Z71.9 Active 243510290 counseling Problem Cervical M47.812 Active 969195562 spondylosis without myelopathy Problem Chronic fatigue R53.82 Active 97938693 Problem BMI 29.0-29.9,adult Z68.29 Active 05191985 Problem Hospital discharge Z09 Active 531480156 follow-up Problem Gastro-esophageal K21.9 Active 525589703 reflux disease without esophagitis Problem 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 Active 939942072 obs/LUTS Problem Abnormal blood R73.09 Active 035726002 sugar Problem Chronic pain G89.4 Active 952262450 syndrome Problem Essential I10 Active 51000995 hypertension Problem Wheezing R06.2 Active 86677696 Problem Nausea R11.0 Active 568828289 Problem Panic disorder with F40.01 Active 07249545 agoraphobia ALLERGIES Allergen (clinical drug Drug/Non Drug Reaction Allergy Type Onset D ate Status ingredient) Allergy documented on EMR promethazine Phenergan([facility] hives Drug Allergy Active Code:[address]- 01) cephalexin Keflex([facility] rash Drug Allergy Active Code:[address]- 01) sulfamethoxazole / Bactrim DS([facility] rash Drug Allergy Active trimethoprim Code:[address]- 01) Levaquin stops breathing Drug Allergy Active eggs Rash Non Drug Active Allergy ENCOUNTERS from 1960 to 2020-03-19 Encounter Location Date Provider Diagnosis [facility] [address], [place] [address] IMMUNIZATIONS No Information SOCIAL HISTORY Tobacco Use: [...] 2015 Active (90 Base) MCG/ACT hrs Creon 48354-19114 UNIT take by mouth 1 capsule 3 [...] day Orally BID for 90 days Creon 43926-35606 UNIT take by mouth 1 capsule 3 times a day as directed Orally 1 tab with each meal for 90 days Clonazepam 1 MG 1 tablet Orally BID PRN SEVERE ANXIETY Mar, 2 020 for 30 days Next Appt Details Provider Name:Reese Jenkins, 2020-04-20 0 3:00:00 PM, [address], [place], [address], Insurance Providers Payer Name Payer Address Payer Insured Patient Coverage Cover age Phone Name Relationship to Start Date End Date Insured [facility] [address] [address] [phone] Alfred Escobar [facility] [address] [address] [facility] [address] [phone] Alfred Escobar [facility] [address] [address] MEDICARE Attn Part B [id number] Alfred Escobar [employer] Claims [address] [facility] [address]
--- OUTSIDE RECORDS SUMMARY | 2020-04-14 22:22 | XMS REPORT ---
:1960 Author Organization [facility] Address [address] [facility], 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 8909412408579 4 cataplexy Problem Other chronic K86.1 Active 616329123 pancreatitis Problem Acute upper J06.9 Active 23838265 respiratory infection Problem Disc disorder M51.9 Active 47678922 Problem Post-traumatic F43.10 Active 78856038 stress disorder Problem Arthropathic L40.50 Active 19506586 psoriasis Problem Generalized anxiety F41.1 Active 31782281 disorder Problem Essential (primary) I10 Active 19120443 hypertension Problem Lumbar sprain, S33.5XXA Active 674060704 initial encounter Problem Hyperglycemia R73.9 Active 08797846 Problem Acute tonsillitis, J03.90 Active 04213111 unspecified etiology Problem Asymptomatic R31.21 Active 029638057 microscopic hematuria Problem Crohn''s disease K50.90 Active 24158889 without complication, unspecified gastrointestinal tract location Problem Encounter for Z71.9 Active 267900307 counseling Problem Cervical M47.812 Active 897166939 spondylosis without myelopathy Problem Chronic fatigue R53.82 Active 10339019 Problem BMI 29.0-29.9,adult Z68.29 Active 89341250 Problem Hospital discharge Z09 Active 685148897 follow-up Problem Gastro-esophageal K21.9 Active 041873678 reflux disease without esophagitis Problem 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 Active 787111320 obs/LUTS Problem Abnormal blood R73.09 Active 853830517 sugar Problem Chronic pain G89.4 Active 701457051 syndrome Problem Essential I10 Active 27511893 hypertension Problem Wheezing R06.2 Active 11366750 Problem Nausea R11.0 Active 353758981 Problem Panic disorder with F40.01 Active 08785535 agoraphobia ALLERGIES Allergen (clinical drug Drug/Non Drug Reaction Allergy Type Onset D ate Status ingredient) Allergy documented on EMR cephalexin Keflex([facility] rash Drug Allergy Active Code:[address]- 01) Levaquin stops breathing Drug Allergy Active sulfamethoxazole / Bactrim DS([facility] rash Drug Allergy Active trimethoprim Code:[address]- 01) promethazine Phenergan([facility] hives Drug Allergy Active Code:[address]- 01) ENCOUNTERS from 1960 to 2020-03-10 Encounter Location Date Provider Diagnosis 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 MEDICAL (GENERAL) HISTORY Type Description Date Medical [...] 1:30:00 PM, [address], [address], [place], [address], Insurance Providers Payer Name Payer Address Payer Insured Patient Coverage Cover age Phone Name Relationship to Start Date End Date Insured MEDICARE Attn Part B [id number] Alfred Escobar self [employer] Claims [address] [facility] [id number] [facility] [address] [address] [phone] Alfred Escobar self [facility] [address] [address] [facility] [address] [phone] Alfred Escobar self [facility] [address] [address]
--- OUTSIDE RECORDS SUMMARY | 2020-04-14 22:22 | XMS REPORT | Continuity of Care Document ---
:1960 Author Organization [employer] Care Team Providers Name Role Phone [employer] Unavailable Un available Problems Problem Status Onset [...] Hydrocodone Refill(s) Bitartrate 10 MG Oral Tablet [[place] 10/325] Clonazepam 2 MG 2 mg = [...] Comments Source Systolic (mm Hg) 143 03/28/2019 [facility] Diastolic (mm Hg) 82 03/28/2019 [facility] Heart Rate 53 03/28/2019 [facility] Respitory Rate 16 03/28/2019 [facility] Height 172.72 cm 03/28/2019 [facility] Weight 89.091 03/28/2019 [facility] BMI Calculated 29.86 03/28/2019 [facility] BMI Calculated 30.47 09/26/2018 [facility] Weight 90.909 09/26/2018 [facility] Height 172.72 cm 09/26/2018 [facility] Heart Rate 58 09/26/2018 [facility] Respitory Rate 16 09/26/2018 [facility] Systolic (mm Hg) 159 09/26/2018 [facility] Diastolic (mm Hg) 88 09/26/2018 [facility] Encounters Location Location Encounter Encounter Reason Attending ADM MD Stat us Source Details Type Number For Provider Date Date Visit [facility] Outpatient [id number] [place] 09/26 09/27 [facility] [place] Outpatient [id number] Pio 10/31 Active [facility] Ambulatory [id number] P[place] 10/31 10/31 [facility] [place] Outpatient [id number] Pio 03/28 [facility] Outpatient [id number] Pio 03/28 03/29 [facility] [place] MNA Outside [id number] 04/01 04/03 [facility] Neurology Medical /2018 Neuro [place] Records Outpatient [id number] Pio 04/11 Active [facility] M[facility] Ambulatory [id number] [place] 04/11 04/11 [facility] [place] M[facility] Outside [id number] 04/18 04/20 [facility] Neurology Medical [facility] [place] Records Procedures No Data Provided for This Section Assessment and Plan No Data Provided for This Section Plan of Care No Data Provided for This Section Social History Social History Date Source Social History TypeResponse 03/28/2019 [facility] Smoking Status Former smoker; Type: Cigarettes; Exposur e to Tobacco Smoke None; Cigarette Smoking Last 365 Days No; Reg Smoking Cessation Counseling No entered on: 03/28/19 Family History No Data Provided for This Section Advance Directives No Data Provided for This Section Functional Status No Data Provided for This Section
--- NOTE | 2020-04-15 01:50 | ER ---
Nurse's Notes [facility] Name: Alfredo Escobar Age: 59 yrs Sex: Male : 1960 Arrival Date: 04/14/2020 Time: 22:23 Bed 15 Private MD: Diagnosis: Upper abdominal pain, unspecified Presentation: 04/14 22:50 Chief complaint: Patient states: he has a place on his abdomen which is painful Dr gio Sousa told him to come to the ED if the pain got worse. Coronavirus screen: At this time, the client does not indicate any symptoms associated with coronavirus-19. Ebola Screen: No symptoms or risks identified at this time. Initial Sepsis Screen: Does the patient meet any 2 criteria? No. Patient's initial sepsis screen is negative. Does the patient have a suspected source of infection? No. Patient's initial sepsis screen is negative. Risk Assessment: Do you want to hurt yourself or someone else? Patient reports no desire to harm self or others. Onset of symptoms was April 14, 2020. 22:50 Method Of Arrival: Ambulatory bb 22:50 Acuity: BUCKY 3 bb Historical: - Allergies: 22:54 Bactrim; bb 22:54 Iodinated Contrast Media - IV Dye; bb 22:54 Iodine; bb 22:54 Keflex; bb 22:54 Latex, Natural Rubber; bb 22:54 Levaquin; bb 22:54 promethazine HCl; bb 22:54 Toradol; bb - Home Meds: 22:54 calcipotriene 0.005 % Topical oint 2 times per day [Active]; carvedilol 25 mg Oral tab bb 2 times per day [Active]; clonazepam 2 mg Oral tab 2 times per day [Active]; Creon 12555 units Oral 3 times per day [Active]; [place] 10-325 mg Oral tab twice a day [Active]; pantoprazole 40 mg Oral TbEC once daily [Active]; Ventolin HFA 90 mcg/actuation Nebulizer HFAA 2 puffs every 8 hours [Active]; - PMHx: 22:54 Anxiety; Arthritis; Crohn's; GERD; Pancreatitis; PTSD; bb - PSHx: 22:54 polyps removed; bb - Immunization history:: Adult Immunizations up to date. - Social history:: Smoking status: Patient/guardian denies using tobacco, the patient reports quitting approximately 30 years ago. - Family history:: not pertinent. - Hospitalizations: : No recent hospitalization is reported. Screenin/11 00:20 Abuse screen: Denies threats or abuse. Nutritional screening: No deficits noted. jb4 Tuberculosis screening: No symptoms or risk factors identified. Fall Risk None identified. Assessment: 00:10 General: Appears in no apparent distress. comfortable, Behavior is calm, cooperative, jb4 appropriate for age. Pain: Complains of pain in left upper quadrant Pain does not radiate. Pain currently is 5 out of 10 on a pain scale. Neuro: Level of Consciousness is awake, alert, obeys commands, Oriented to person, place, time, situation. Cardiovascular: Patient's skin is warm and dry. Respiratory: Airway is patent Respiratory effort is even, unlabored, Respiratory pattern is regular, symmetrical. GI: Abdomen is flat, non-distended, Abd is soft X 4 quads Abd is non tender in right upper quadrant, right lower quadrant and left lower quadrant Abdomen is tender to palpation in left upper quadrant Reports upper abdominal pain, nausea. : No signs and/or symptoms were reported regarding the genitourinary system. EENT: No signs and/or symptoms were reported regarding the EENT system. Derm: No signs and/or symptoms reported regarding the dermatologic system. Musculoskeletal: No signs and/or symptoms reported regarding the musculoskeletal system. 01:02 Reassessment: Patient appears in no apparent distress at this time. Patient and/or jb4 family updated on plan of care and expected duration. Pain level reassessed. Patient is alert, oriented x 3, equal unlabored respirations, skin warm/dry/pink. 02:30 Reassessment: Patient appears in no apparent distress at this time. Patient and/or jb4 family updated on plan of care and expected duration. Pain level reassessed. Patient is alert, oriented x 3, equal unlabored respirations, skin warm/dry/pink. Vital Signs: 04/14 22:50 BP 117 / 79; Pulse 57; Resp 16 S; Temp 98(O); Pulse Ox 99% on R/A; Weight 82.1 kg (M); bb Height 5 ft. 10 in. (177.80 cm) (R); Pain 10/12; 04/15 01:30 BP 128 / 75; Pulse 51; Resp 16; Pulse Ox 98% on R/A; jb4 04/14 22:50 Body Mass Index 25.97 (82.10 kg, 177.80 cm) ED Course: 04/14 22:23 Patient arrived in ED. ag3 22:52 Triage completed. bb 22:54 Arm band placed on Patient placed in waiting room, Patient notified of wait time. bb 04/15 00:05 Geronimo Campbell MD is Attending Physician. rn 00:16 Jose Luis Corea, RN is Primary Nurse. jb4 00:43 CT Abd/Pelvis - Without Contrast In Process Unspecified. EDMS 01:48 Nirmala Concepcion MD is Referral Physician. rn 02:31 No provider procedures requiring assistance completed. IV discontinued, intact, jb4 bleeding controlled, No redness/swelling at site. Pressure dressing applied. Administered Medications: No medications were administered Outcome: 01:49 Discharge ordered by MD. rn 02:31 Discharged to home ambulatory, with family. jb4 02:31 Condition: stable 02:31 Discharge instructions given to patient, Instructed on discharge instructions, follow up and referral plans. Demonstrated understanding of instructions, follow-up care. 02:31 Patient left the ED. jb4 Signatures: Dispatcher [employer] EDMS Gabrielle Castro RN RN bb Nieto, Roman, MD MD rn Bryson, James, RN RN jb4 Dorene Abdul 3
--- NOTE | 2020-04-15 01:50 | EDPHYS ---
Physician Documentation [facility] Name: Alfredo Escobar Age: 59 yrs Sex: Male : 1960 Arrival Date: 04/14/2020 Time: 22:23 Bed 15 Private MD: ED Physician Geronimo Campbell HPI: 04/15 00:19 This 59 yrs old Male presents to ER via Ambulatory with complaints of rn Abdominal Pain. 00:19 The patient presents with abdominal pain in the left upper quadrant. Onset: The rn symptoms/episode began/occurred yesterday. The symptoms radiate to back. Associated signs and symptoms: Pertinent positives: constipation, Pertinent negatives: nausea and vomiting, blood in stools, fever, shortness of breath, testicular pain, vomiting, vomiting blood. The symptoms are described as achy. Modifying factors: The symptoms are alleviated by nothing, the symptoms are aggravated by touching the area. Severity of pain: At its worst the pain was moderate in the emergency department the pain is unchanged. The patient has experienced similar episodes in the past. The patient has been recently seen by a physician: The patient has been recently seen at the [facility] Emergency Department. Reports 2 days of left upper abd pain, radiates to back, no fever/nausea/vomiting, + constipation, no trauma. Reports chronic pancreatitis. Seen here recently for abd issues, no acute findings found. . Historical: - Allergies: 04/14 22:54 Bactrim; bb 22:54 Iodinated Contrast Media - IV Dye; bb 22:54 Iodine; bb 22:54 Keflex; bb 22:54 Latex, Natural Rubber; bb 22:54 Levaquin; bb 22:54 promethazine HCl; bb 22:54 Toradol; bb - Home Meds: 22:54 calcipotriene 0.005 % Topical oint 2 times per day [Active]; carvedilol 25 mg Oral tab bb 2 times per day [Active]; clonazepam 2 mg Oral tab 2 times per day [Active]; Creon 37518 units Oral 3 times per day [Active]; [place] 10-325 mg Oral tab twice a day [Active]; pantoprazole 40 mg Oral TbEC once daily [Active]; Ventolin HFA 90 mcg/actuation Nebulizer HFAA 2 puffs every 8 hours [Active]; - PMHx: 22:54 Anxiety; Arthritis; Crohn's; GERD; Pancreatitis; PTSD; bb - PSHx: 22:54 polyps removed; bb - Immunization history:: Adult Immunizations up to date. - Social history:: Smoking status: Patient/guardian denies using tobacco, the patient reports quitting approximately 30 years ago. - Family history:: not pertinent. - Hospitalizations: : No recent hospitalization is reported. ROS: 04/15 00:19 Constitutional: Negative for fever, chills, and weight loss, Eyes: Negative for injury, rn pain, redness, and discharge, ENT: Negative for injury, pain, and discharge, Cardiovascular: Negative for chest pain, palpitations, and edema, Respiratory: Negative for shortness of breath, cough, wheezing, and pleuritic chest pain, Abdomen/GI: + left upper abd pain MS/Extremity: Negative for injury and deformity, Skin: Negative for injury, rash, and discoloration, Neuro: Negative for headache, weakness, numbness, tingling, and seizure. Exam: 00:19 Constitutional: This is a well developed, well nourished patient who is awake, alert, rn and in no acute distress. Ambulatory to room. Head/Face: Normocephalic, atraumatic. Cardiovascular: Regular rate and rhythm. No pulse deficits. Respiratory: No increased work of breathing, no retractions or nasal flaring. Abdomen/GI: soft, + mild LUQ tenderness, area of concern is circled in red marker by patient, no obvious swelling or mass palpated. Back: No spinal tenderness. No costovertebral tenderness. Full range of motion. Skin: Warm, dry MS/ Extremity: Pulses equal, no cyanosis. Neurovascular intact. Full, normal range of motion. Equal circumference. Neuro: Awake and alert, GCS 15, oriented to person, place, time, and situation. Cranial nerves II-XII grossly intact. Motor strength 5/5 in all extremities. Sensory grossly intact. Cerebellar exam normal. Normal gait. Vital Signs: 04/14 22:50 BP 117 / 79; Pulse 57; Resp 16 S; Temp 98(O); Pulse Ox 99% on R/A; Weight 82.1 kg (M); bb Height 5 ft. 10 in. (177.80 cm) (R); Pain 10/12; 04/15 01:30 BP 128 / 75; Pulse 51; Resp 16; Pulse Ox 98% on R/A; jb4 04/14 22:50 Body Mass Index 25.97 (82.10 kg, 177.80 cm) bb MDM: 00:05 Patient medically screened. rn 01:47 Differential diagnosis: diverticulitis, gastritis, gastroesophageal reflux disease, rn non-specific abd pain, pancreatitis, Peptic Ulcer Disease, Ureterolithiasis. Data reviewed: vital signs, nurses notes, radiologic studies, CT scan, and as a result, I will discharge patient. Counseling: I had a detailed discussion with the patient and/or guardian regarding: the historical points, exam findings, and any diagnostic results supporting the discharge/admit diagnosis, radiology results, the need for outpatient follow up, to return to the emergency department if symptoms worsen or persist or if there are any questions or concerns that arise at home. Response to treatment: the patient's symptoms have mildly improved after treatment, and as a result, I will discharge patient. Special discussion: I discussed with the patient/guardian in detail that at this point there is no indication for admission to the hospital. It is understood, however, that if the symptoms persist or worsen the patient needs to return immediately for re-evaluation. Based on the history and exam findings, there is no indication for further emergent testing or inpatient evaluation. I discussed with the patient/guardian the need to see the bladder cleaner for further evaluation of the symptoms. ED course: No acute findings to explain LUQ abd pain or sensation of swelling, will dc home, recommend GI f/u, sees Dr. Concepcion. . 04/15 00:13 Order name: Basic Metabolic Panel rn 04/15 00:13 Order name: CT Abd/Pelvis - Without Contrast rn 04/15 00:13 Order name: IV Saline Lock; Complete Time: 01:00 rn 04/15 00:13 Order name: Labs collected and sent; Complete Time: 01:00 rn Administered Medications: No medications were administered Disposition: 04/15/20 01:49 Discharged to Home. Impression: Upper abdominal pain, unspecified. - Condition is Stable. - Discharge Instructions: Abdominal Pain, Adult. - Medication Reconciliation Form, Thank You Letter, Antibiotic Education, Prescription Opioid Use form. - Follow up: Nirmala Concepcion MD; When: As needed; Reason: Recheck today's complaints, Re-evaluation by your physician. - Problem is new. - Symptoms have improved. Signatures: Dispatcher [employer] [facility] Gabrielle Castro RN RN bb Nieto, Roman, MD MD rn Bryson, James, RN RN jb4 Corrections: (The following items were deleted from the chart) 01:50 00:14 CBC+H.LAB.BRZ ordered. EDSD EDMS 00:14 Basic Metabolic Panel ordered. EDSD EDSD 00:14 HEPATIC FUNCTION+C.LAB.BRZ ordered. EDSD EDMS 00:14 LIPASE+C.LAB.BRZ ordered. [facility] EDSD 02:31 01:49 04/15/2020 01:49 Discharged to Home. Impression: Upper abdominal pain, jb4 unspecified. Condition is Stable. Forms are Medication Reconciliation Form, Thank You Letter, Antibiotic Education, Prescription Opioid Use. Follow up: Nirmala Concepcion; When: As needed; Reason: Recheck today's complaints, Re-evaluation by your physician. Problem is new. Symptoms have improved. rn
[2020-04-15 10:07] VITALS: TEMP 98
[2020-04-15 10:08] VITALS: BP 128/75; O2SAT 98
--- NOTE | 2020-04-15 11:25 | RAD REPORT ---
EXAM DESCRIPTION: CT ABDOMEN AND PELVIS WITHOUT CONTRAST CLINICAL HISTORY: Epigastric and left upper quadrant abdominal pain. COMPARISON: CT abdomen and pelvis with contrast 12/10/2019 TECHNIQUE: Axial unenhanced CT imaging of the abdomen and pelvis performed. Reformatted coronal and sagittal images reviewed. A dose reduction technique was utilized with automated exposure control according to patient size. FINDINGS: Clear lung bases. Heart is normal in size. Normal liver size and contour. A few punctate calcifications within the right lobe compatible with gr anulomas. Unremarkable gallbladder. Normal spleen size and contour. Spleen contains numerous calcifie d granulomas. Normal pancreas, adrenal glands, and right kidney. There is a superior left renal 2.3 c m cyst. No hydronephrosis or stone. No solid renal mass. Normal aorta and inferior vena cava caliber. There is a circumaortic left renal vein. Mild aortic atherosclerosis. Normal stomach. The small bowel loops are of normal caliber. Normal appendix is present in the right lower quadrant. There is mild diverticulosis in the descending and proximal sigmoid colon. No diverti culitis. There is a small fat-containing umbilical hernia. No ascites or free air. Unremarkable bladder. Normal prostate. No pelvic free fluid or adenopathy. Moderate lumbar spondylosis. Intact bony pelvis. Unremarkable hips. IMPRESSION: 1. No acute finding within the abdomen or pelvis. 2. Mild descending and sigmoid colon diverticulosis without diverticulitis. 3. 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 4. Left renal cyst. 5. Very small fat-containing umbilical hernia without incarceration or bowel involvement. Electronically signed by: Casi Mills DO 04/15/2020 12:56 AM TELEPHONE RECORDER Due to temporary technical issues with the PACS/Fluency reporting system, reports are being signed by the in house radiologist without review as a courtesy to ensure prompt reporting. The interpreting r adiologist is fully responsible for the content of the report.
== END 2020-04-15 02:31 | disposition home or self-care (01) ==
LOC: ER 22:19
DX: R10.12 Left upper quadrant pain (principal); K59.00 Constipation, unspecified; F41.9 Anxiety disorder, unspecified; F43.10 Post-traumatic stress disorder, unspecified; Z88.1 Allergy status to other antibiotic agents; Z88.5 Allergy status to narcotic agent; Z91.040 Latex allergy status; Z91.041 Radiographic dye allergy status; Z91.048 Other nonmedicinal substance allergy status
CPT/HCPCS: 74176; 99283

== ENCOUNTER 2020-04-16 18:04 | Emergency (ER) | payer OTHER ==
--- OUTSIDE RECORDS SUMMARY | 2020-04-16 18:06 | XMS REPORT | Continuity of Care Document ---
:1960 Author Organization [employer] Care Team Providers Name Role Phone [employer] Unavailable Un available Problems Problem Status Onset [...] Hydrocodone Refill(s) Bitartrate 10 MG Oral Tablet [[place] 10/325] Clonazepam 2 MG 2 mg = [...] Comments Source Systolic (mm Hg) 143 03/28/2019 [facility] [place] Diastolic (mm Hg) 82 03/28/2019 [facility] [place] [facility] Heart Rate 53 03/28/2019 [facility] Respitory Rate 16 03/28/2019 [facility] Height 172.72 cm 03/28/2019 [facility] Weight 89.091 03/28/2019 [facility] BMI Calculated 29.86 03/28/2019 [facility] BMI Calculated 30.47 09/26/2018 [facility] Weight 90.909 09/26/2018 [facility] Height 172.72 cm 09/26/2018 [facility] Heart Rate 58 09/26/2018 [facility] Respitory Rate 16 09/26/2018 [facility] Systolic (mm Hg) 159 09/26/2018 [facility] [place] Diastolic (mm Hg) 88 09/26/2018 [facility] [place] [facility] Encounters Location Location Encounter Encounter Reason Attending ADM [facility] Stat us Source Details Type Number For Provider Date Date Visit MNA Outpatient [id number] [place] 09/26 09/27 [facility] Out[facility] [id number] [place] 10/31 Active [facility] [place] MNA Ambulatory [id number] [place] 10/31 10/31 [facility] Outpatient [id number] P[place] 03/28 [facility] [place] MNA Outpatient [id number] [place] 03/28 03/29 [facility] [place] MNA Outside [id number] 04/01 04/03 [facility] Neurology Medical /2018 Neuro [facility] Records Outpatient [id number] [place] 04/11 Active [facility] [place] MNA Ambulatory [id number] [place] 04/11 04/11 [facility] Pre[facility] MNA Outside [id number] 04/18 04/20 [facility] Neurology Medical [facility] Records Procedures No Data Provided for This Section Assessment and Plan No Data Provided for This Section Plan of Care No Data Provided for This Section Social History Social History Date Source Social History TypeResponse 03/28/2019 [facility] o Smoking Status Former smoker; Type: Cigarettes; Exposur e to Tobacco Smoke None; Cigarette Smoking Last 365 Days No; Reg Smoking Cessation Counseling No entered on: 03/28/19 Family History No Data Provided for This Section Advance Directives No Data Provided for This Section Functional Status No Data Provided for This Section
--- OUTSIDE RECORDS SUMMARY | 2020-04-16 18:06 | XMS REPORT | Continuity of Care Document ---
:1960 Author Organization [facility] t Address [address] [place] [address] Care Team Providers Name Role Phone Theo Hernandez NP Attending Clinician Mau Armstrong Attending Clinician Problems Condition Condition Condition Status Onset Resolution Last Treating Co mments Source Name Details Category Date Date Treatment Clinician Date Hypertensi Problem Active 2019-04-22 M emoria ve 01:06:38 l disorder, [place] systemic Hypertensi arterial ve (disorder) disorder, systemic arterial (disorder) Active Problem 04/22/2019 [facility] Memory Problem Active 2019-04-22 Memor ia impairment 01:06:38 l (finding) Memory Maggy nn impairment (finding) Active Problem 04/22/2019 [facility] Neck pain Problem Active 2019-04-22 Me moria (finding) 01:06:38 l Neck [place] pain (finding) Active Problem 04/22/2019 [facility] Paresthesi Problem Active 2019-04-22 M emoria a 01:06:38 l (finding) [place] Paresthesi a (finding) Active Problem 04/22/2019 [facility] Simple Problem Active 2019-04-22 Memor ia obesity 01:06:38 l (disorder) Simple Herm jessa obesity (disorder) Active Problem 04/22/2019 [facility] Tremor Problem Active 2019-04-22 Memor ia (finding) 01:06:38 l Tremor [place] (finding) Active Problem 04/22/2019 [facility] Dizziness [...] n Reaction [facility] Bactrim Adverse Active rash [facility] DS Reaction [facility] Levaquin Adverse Active stops [facility] Reaction breathing [facility] Levaquin Levaquin Active Memori a roberto FernándezEvan Social History Smoking Status Start Date Stop Date Source Social History 2019-03-28 18:18:16 2019-03-28 18:18:16 [facility] [place] Medications Ordered Filled Start Stop Current Ordering Indication Dosage Frequency Signature Comments Components Source Medication Medication Date Date Medication? Clinician (SIG) Name Name valsartan 2019 Yes 0 Memoria 40 mg oral 0-24 Refill(s) l tablet 19:12: [place] 00 pantoprazol Yes 40 mg = 1 M emoria e 40 mg 4-24 tab, PO, l oral 19:00: Daily, # [place] enteric 00 30 tab, 0 coated Refill(s) tablet carvedilol Yes 25 mg = 1 Me moria 25 mg oral 4-24 tab, PO, l tablet 19:00: BID, # 180 Maggy nn 00 tab, 0 Refill(s) Acetaminoph 2019- Yes 1 tab, PO, Memoria en 325 MG / 4-24 QID, 0 l Hydrocodone 19:00: Refill(s) H ermann Bitartrate 00 10 MG Oral Tablet [[place] 10/325] Clonazepam 2018- Yes 2 mg = 1 Mem oria 2 MG Oral 4-24 tab, PO, l Tablet 19:00: BID, # 60 Jun n [Klonopin] 00 tab, 0 Refill(s) Aspirin 81 Aspirin 81 2017- Yes Esthela [address] [facility] 4[facility]12 [place] [facility] Albuterol Albuterol 2015- Yes Esthela [address] [facility] Sulfate HFA Sulfate HFA 1-25 [place] [facility] Clonazepam Clonazepam Yes Esthela TAKE [address] [facility] [place] TABLET BY [facility] Carvedilol Carvedilol Yes Esthela take [address] [facility] [place] tablet by [facility] twice a l day [facility] Famotidine Famotidine Yes Esthela [address] [facility] [place] [facility] Protonix Protonix Yes Esthela [address] [place] Dicyclomine Dicyclomine Yes Esthela [address] [facility] HCl HCl [place] [facility] Ventolin Ventolin Yes Esthela [address] [facility] HFA HFA [place] [facility] Valsartan Valsartan Yes Esthela [address] [facility] [place] [facility] Hydrocodone Hydrocodone Yes Esthela (Schedule [facility] -Acetaminop -Acetaminop [place] II [facility]) [facility] TK 1 T PO [facility] TID l [facility] Creon Creon 2019- No Esthela take by [facility] [place] mouth 1 [facility] - 00:00 capsule 3 [...] Diastolic (mm Hg) 2018-09-26 18:51:00 Mem orial [place] Procedures This patient has no known procedures. Encounters Start End Encounter Admission Attending Care Care Encounter Source Date/Time Date/Time Type Type Clinicians Facility Department ID 2020-03-18 2020-03-18 Outpatient [facility] [id number] 2020-03-18 2020-03-18 Outpatient [facility] [id number] [facility] 2020-03-10 2020-03-10 Outpatient [facility] [id number] [facility] 2019-07-21 2019-07-21 Emergency [facility] [id number] 18:06:23 22:09:00 Camila Layton [id number] [place] [id number] [place] [id number] 2019-07-15 2019-07-15 [facility] [id number] [facility] 15:01:00 15:01:00 t Specialty/U [facility]Urology Clinic l Clinic Outpati ent Clinics 2019-07-09 2019-07-09 [facility] [id number] [facility] 16:46:00 16:46:00 t Specialty/U [facility] - [facility] /Urology Clinic l Clinic Outpati ent Clinics 2019-07-08 2019-07-08 [facility] [id number] [facility] [address] 14:51:00 14:51:00 t Specialty/U [facility] - [facility] /Urology Clinic l Clinic Outpati ent Clinics 2019-07-08 2019-07-08 [facility] [id number] 08:00:00 08:00:00 t Specialty/U [facility] - [facility] Mem[facility] /Urology Clinic l Clinic Outpati ent Clinics 2019-07-04 2019-07-04 [facility] [id number] 13:00:00 13:00:00 t Specialty/U [facility] - Specialty [facility]y Memori a /Urology Clinic l Clinic Outpati ent Clinics 2019-07-02 2019-07-02 [facility] [id number] 14:32:00 14:32:00 t [facility] Medicine Outpati ent Clinics 2019-06-27 2019-06-27 [facility] [id number] [facility] 14:40:00 14:40:00 t [facility] 2019-06-03 2019-06-03 [facility] [id number] [facility] 11:17:00 11:17:00 t [facility] Medicine Outpati ent Clinics 2019-04-18 2019-04-19 Outpatient MHMISCHER MHMISCHER [id number] 12:37:59 23:59:59 2019-04-11 2019-04-11 Outpatient ALICE ArmstrongMISCHER MHMISCHER [id number] 15:30:00 15:30:00 Pio 03 Mau 2019-04-09 2019-04-09 [facility] [id number] [facility] 15:20:00 15:20:00 t [facility] Medicine Outpati ent Clinics 2019-04-01 2019-04-02 Outpatient MHMISCHER MHMISCHER [id number] 08:58:44 23:59:59 2019-03-28 2019-03-28 Outpatient ALICE ArmstrongMISCHER MHMISCHER [id number] 13:00:00 23:59:59 [place]io Mau 2019-02-19 2019-02-19 [facility] [id number] [facility] 14[facility]40:00 14:40:00 t [facility] Medicine Outpati ent Clinics 2018-12-11 2018-12-11 [facility] [id number] [facility] 11:21:00 11:21:00 [facility] Medicine Outpati ent Clinics 2018-11-19 2018-11-19 [facility] [id number] [facility] 14:40:00 14:40:00 [facility] Medicine Outpati ent Clinics 2018-10-31 2018-10-31 Outpatient AZAR ArmstrongSCHLATHA MISCHER [id number] 13:45:00 13:45:00 Pio Mau 2018-09-26 2018-09-26 [id number] 13:30:00 23:59:59 [place] Mau 2018-09-17 2018-09-17 [facility] [id number] [facility] 16:00:00 16:00:00 [facility] Medicine Outpati ent Clinics 2018-08-02 2018-08-02 [facility] [id number] [facility] 16:07:00 16:07:00 George Mobile Brodnax s [facility] Medicine Outpati ent Clinics 2018-08-02 2018-08-02 [facility] [id number] [facility] 16:05:00 16:05:00 George [facility] Brodnax s [facility] Medicine Outpati ent Clinics 2018-06-18 2018-06-18 [facility] [id number] [facility] 16:00:00 16:00:00 [facility] Medicine Outpati ent Clinics 2018-01-18 2018-01-18 [facility] [id number] [facility] 14:00:00 14:00:00 [facility] Medicine Outpati ent Clinics 2017-09-19 2017-09-19 [facility] [id number] 09:33:00 09:33:00 [facility] Medicine Outpati ent Clinics 2017-09-14 2017-09-14 Outpatient Malena Preston [id number] [facility] 13:00:00 13:00:00 [facility] Medicine Outpati ent Clinics 2017-09-12 2017-09-12 Outpatient Malena Preston [id number] [facility] 11:05:00 11:05:00 [facility] 2017-08-29 2017-08-29 Outpatient Malena Preston [id number] 15:30:00 15:30:00 [facility] Results This patient has no known results.
[2020-04-16] MEDS ORDERED: BISACODYL 10 MG RECTAL SUPP ONE (19:53)
[2020-04-16] MEDS ORDERED: LACTULOSE 20 GM/30 ML UCUP ONE (19:53)
[2020-04-16] MEDS ORDERED: NA CHLORIDE 0.9% 1,000 ML ONE (19:53)
[2020-04-16 19:57] LABS: Absolute Lymphocytes (CBC) 2.4 K/uL (0.7-4.9); Basophils % 0.5 % (0-1.3); Hematocrit 44.6 % (39.6-49.0); Lymphocytes % 32.1 % (15.3-44.8); RBC Red Blood Cell Count 4.95 M/uL (4.33-5.43)
[2020-04-16 20:03] LABS: Albumin 3.9 g/dL (3.4-5.0); Bilirubin Direct 0.2 mg/dL (0-0.2); Bilirubin Total 0.7 mg/dL (0.2-1.0); Potassium 4.3 mmol/L (3.5-5.1); Protein, Total 7.3 g/dL (6.4-8.2)
[2020-04-16 20:26] LABS: Urine Blood TRACE (NEG); Urine Glucose NEGATIVE (NEG); Urine Protein NEGATIVE (NEG); Urine Specific Gravity 1.015 (1.005-1.030); Urine pH 6.5 (5.0-7.0)
--- NOTE | 2020-04-16 20:51 | EDPHYS ---
Physician Documentation [facility] Name: Alfredo Escobar Age: 59 yrs Sex: Male : 1960 Arrival Date: 04/16/2020 Time: 18:06 Bed 20 Private MD: ED Physician Pal Ferreira HPI: 04/16 19:27 This 59 yrs old Male presents to ER via Ambulatory with complaints of mack Constipation. 19:27 The patient presents with abdominal pain in the lower abdomen, in the left upper mack quadrant, in the left lower quadrant, abdominal distention in the left upper quadrant, in the left lower quadrant. Onset: The symptoms/episode began/occurred 3 day(s) ago. The symptoms do not radiate. Associated signs and symptoms: Pertinent positives: constipation. The symptoms are described as crampy. Modifying factors: The symptoms are alleviated by nothing, the symptoms are aggravated by movement, no bowel movement. Severity of pain: At its worst the pain was mild moderate in the emergency department the pain is unchanged. The patient has experienced similar episodes in the past, multiple times. Historical: - Allergies: 18:15 Bactrim; hb 18:15 Iodinated Contrast Media - IV Dye; hb 18:15 Iodine; hb 18:15 Keflex; hb 18:15 Latex, Natural Rubber; hb 18:15 Levaquin; hb 18:15 promethazine HCl; hb 18:15 Toradol; hb - Immunization history:: Adult Immunizations up to date. - Social history:: Smoking status: Patient denies any tobacco usage or history of. - Family history:: not pertinent. ROS: 19:27 Constitutional: Negative for fever, chills, and weight loss, Eyes: Negative for injury, mack pain, redness, and discharge, ENT: Negative for injury, pain, and discharge, Neck: Negative for injury, pain, and swelling, Cardiovascular: Negative for chest pain, palpitations, and edema, Respiratory: Negative for shortness of breath, cough, wheezing, and pleuritic chest pain, Back: Negative for injury and pain, : Negative for injury, bleeding, discharge, and swelling, MS/Extremity: Negative for injury and deformity, Skin: Negative for injury, rash, and discoloration, Neuro: Negative for headache, weakness, numbness, tingling, and seizure, Psych: Negative for depression, anxiety, suicide ideation, homicidal ideation, and hallucinations, Allergy/Immunology: Negative for hives, rash, and allergies, Endocrine: Negative for neck swelling, polydipsia, polyuria, polyphagia, and marked weight changes, Hematologic/Lymphatic: Negative for swollen nodes, abnormal bleeding, and unusual bruising. 19:27 Abdomen/GI: Positive for abdominal pain, constipation. Exam: 19:27 Constitutional: This is a well developed, well nourished patient who is awake, alert, mack and in no acute distress. Head/Face: Normocephalic, atraumatic. Eyes: Pupils equal round and reactive to light, extra-ocular motions intact. Lids and lashes normal. Conjunctiva and sclera are non-icteric and not injected. Cornea within normal limits. Periorbital areas with no swelling, redness, or edema. ENT: Nares patent. No nasal discharge, no septal abnormalities noted. Tympanic membranes are normal and external auditory canals are clear. Oropharynx with no redness, swelling, or masses, exudates, or evidence of obstruction, uvula midline. Mucous membranes moist. Neck: Trachea midline, no thyromegaly or masses palpated, and no cervical lymphadenopathy. Supple, full range of motion without nuchal rigidity, or vertebral point tenderness. No Meningismus. Chest/axilla: Normal chest wall appearance and motion. Nontender with no deformity. No lesions are appreciated. Cardiovascular: Regular rate and rhythm with a normal S1 and S2. No gallops, murmurs, or rubs. Normal PMI, no JVD. No pulse deficits. Respiratory: Lungs have equal breath sounds bilaterally, clear to auscultation and percussion. No rales, rhonchi or wheezes noted. No increased work of breathing, no retractions or nasal flaring. Back: No spinal tenderness. No costovertebral tenderness. Full range of motion. Male : Normal genitalia with no discharge or lesions. Skin: Warm, dry with normal turgor. Normal color with no rashes, no lesions, and no evidence of cellulitis. MS/ Extremity: Pulses equal, no cyanosis. Neurovascular intact. Full, normal range of motion. Neuro: Awake and alert, GCS 15, oriented to person, place, time, and situation. Cranial nerves II-XII grossly intact. Motor strength 5/5 in all extremities. Sensory grossly intact. Cerebellar exam normal. Normal gait. Psych: Awake, alert, with orientation to person, place and time. Behavior, mood, and affect are within normal limits. 19:27 Abdomen/GI: Inspection: abdomen appears normal, Bowel sounds: normal, Palpation: mild abdominal tenderness, in the left upper quadrant and left lower quadrant, Liver: no appreciated palpable abnormalities, Hernia: not appreciated. Vital Signs: 18:13 BP 146 / 86; Pulse 84; Resp 16; Temp 98.2; Pulse Ox 100% on R/A; Pain 4/10; hb 20:00 BP 136 / 82; Pulse 54; Resp 18; Pulse Ox 99% on R/A; wh 21:00 BP 140 / 80; Pulse 58; Resp 18; Pulse Ox 100% on R/A; wh MDM: 18:43 Patient medically screened. mack 18:43 Patient medically screened. mack 19:34 Differential diagnosis: bowel obstruction, diverticulitis, Irritable bowel syndrome, mack Mesenteric ischemia or infarction, non-specific abd pain, pancreatitis, Peritonitis, Ureterolithiasis. Data reviewed: vital signs, nurses notes, old medical records, lab test result(s), radiologic studies, plain films. Data interpreted: awake overnight monitor: rate is 84 beats/min, rhythm is regular, Pulse oximetry: on room air is 100 %. Test interpretation: by ED physician or midlevel provider: plain radiologic studies. 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 04/16 19:26 Order name: Basic Metabolic Panel; Complete Time: 20:18 [facility] 04/16 19:26 Order name: CBC with Diff; Complete Time: 20:18 [facility] 04/16 19:26 Order name: Hepatic Function; Complete Time: 20:18 [facility] 04/16 19:26 Order name: Lipase; Complete Time: 20:18 [facility] 04/16 19:27 Order name: Abdomen Acute Series XRAY [facility] 04/16 20:23 Order name: Urine Dipstick--Ancillary (enter results); Complete Time: 20:50 [facility] 04/16 19:26 Order name: IV Saline Lock; Complete Time: 19:52 [facility] 04/16 19:26 Order name: Labs collected and sent; Complete Time: 19:52 [facility] 04/16 19:26 Order name: Urine Dipstick-Ancillary (obtain specimen); Complete Time: 20:24 [facility] Administered Medications: 19:51 Drug: Lactulose 60 grams Volume: 45 ml; Route: PO; 21:12 Follow up: Response: No adverse reaction; Marked relief of symptoms 19:51 Drug: Dulcolax Suppository 10 mg Route: [place]; 21:12 Follow up: Response: No adverse reaction; Marked relief of symptoms 19:52 Drug: NS 0.9% 1000 ml Route: IV; Rate: 1 bolus; Site: right antecubital; 21:13 Follow up: Response: No adverse reaction; IV Status: Completed infusion Disposition: 04/16/20 20:50 Discharged to Home. Impression: Constipation, Abdominal tenderness. - Condition is Stable. - Discharge Instructions: Abdominal Pain, Adult, Constipation, Adult, Constipation, Adult, [id number], Abdominal Pain, Adult, Ebyz-tr-Iina. - Prescriptions for Bentyl 20 mg Oral Tablet - take 1 tablet by ORAL route every 6 hours As needed; 20 tablet. Lactulose 10 gram/15 mL Oral Solution - take 30 milliliter by ORAL route once daily; 300 milliliter. Dulcolax 10 mg Rectal Suppository - insert 1 suppository by RECTAL route every 12 hours As needed; 10 suppository. - Medication Reconciliation Form, Thank You Letter, Antibiotic Education, Prescription Opioid Use form. - Follow up: Private Physician; When: 2 - 3 days; Reason: Recheck today's complaints, Continuance of care, Re-evaluation by your physician. Follow up: Nirmala Concepcion; When: 2 - 3 days; Reason: Recheck today's complaints, Continuance of care, Re-evaluation by your physician. - Problem is new. - Symptoms have improved. Signatures: Dispatcher [employer] Pal Leyva MD MD cha Baxter, Heather, MARY RN Arik Green Corrections: (The following items were deleted from the chart) 21:13 20:50 04/16/2020 20:50 Discharged to Home. Impression: Constipation; Abdominal wh tenderness. Condition is Stable. Discharge Instructions: Abdominal Pain, Adult, Constipation, Adult, Constipation, Adult, Iims-ti-Iayq, Abdominal Pain, Adult, Ryfj-in-Tizb. Prescriptions for Bentyl 20 mg Oral Tablet - take 1 tablet by ORAL route every 6 hours As needed; 20 tablet, Lactulose 10 gram/15 mL Oral Solution - take 30 milliliter by ORAL route once daily; 300 milliliter, Dulcolax 10 mg Rectal Suppository - insert 1 suppository by RECTAL route every 12 hours As needed; 10 suppository. and Forms are Medication Reconciliation Form, Thank You Letter, Antibiotic Education, Prescription Opioid Use. Follow up: Private Physician; When: 2 - 3 days; Reason: Recheck today's complaints, Continuance of care, Re-evaluation by your physician. Follow up: Nirmala Concepcion; When: 2 - 3 days; Reason: Recheck today's complaints, Continuance of care, Re-evaluation by your physician. Problem is new. Symptoms have improved. mack
--- NOTE | 2020-04-16 20:51 | ER ---
Nurse's Notes [facility] Name: Alfredo Escobar Age: 59 yrs Sex: Male : 1960 Arrival Date: 04/16/2020 Time: 18:06 Bed 20 Private MD: Diagnosis: Constipation;Abdominal tenderness Presentation: 04/16 18:13 Chief complaint: Patient states: "Dr. Jenkins; told me to come on in because I am blocked hb up, I haven't had a decent bowel movement since the 8th." Reports left sided abdominal pain and N/V today. Coronavirus screen: At this time, the client does not indicate any symptoms associated with coronavirus-19. Ebola Screen: No symptoms or risks identified at this time. Initial Sepsis Screen: Does the patient meet any 2 criteria? No. Patient's initial sepsis screen is negative. Does the patient have a suspected source of infection? No. Patient's initial sepsis screen is negative. Risk Assessment: Do you want to hurt yourself or someone else? Patient reports no desire to harm self or others. Onset of symptoms was April 16, 2020. 18:13 Method Of Arrival: Ambulatory hb 18:13 Acuity: BUCKY 3 hb Historical: - Allergies: 18:15 Bactrim; hb 18:15 Iodinated Contrast Media - IV Dye; hb 18:15 Iodine; hb 18:15 Keflex; hb 18:15 Latex, Natural Rubber; hb 18:15 Levaquin; hb 18:15 promethazine HCl; hb 18:15 Toradol; hb - Immunization history:: Adult Immunizations up to date. - Social history:: Smoking status: Patient denies any tobacco usage or history of. - Family history:: not pertinent. Screenin:47 Abuse screen: Denies threats or abuse. Nutritional screening: No deficits noted. em Tuberculosis screening: No symptoms or risk factors identified. Fall Risk None identified. Assessment: 18:40 General: Appears in no apparent distress. uncomfortable, Behavior is calm, cooperative, em appropriate for age, Denies fever. Pain: Complains of pain in abdomen Pain currently is 4 out of 10 on a pain scale. Neuro: Level of Consciousness is awake, alert, obeys commands, Oriented to person, place, time, situation. Cardiovascular: Capillary refill < 3 seconds Patient's skin is warm and dry. Respiratory: Airway is patent Respiratory effort is even, unlabored, Respiratory pattern is regular, symmetrical. GI: Abdomen is flat, Reports constipation. Derm: Skin is intact, Skin is pink, warm \\T\\ dry. Musculoskeletal: Range of motion: intact in all extremities. 19:30 General: Appears in no apparent distress. Behavior is calm, cooperative, appropriate wh for age. Pain: Complains of pain in left upper quadrant and left lower quadrant. Neuro: Level of Consciousness is awake, alert, obeys commands, Oriented to person, place, time, situation. Cardiovascular: Capillary refill < 3 seconds. Respiratory: Airway is patent Respiratory effort is even, unlabored, Respiratory pattern is regular, symmetrical. GI: Abdomen is flat, non-distended, Bowel sounds present X 4 quads. Abd is soft Abdomen is tender to palpation in left upper quadrant and left lower quadrant. GI: Reports constipation. : No signs and/or symptoms were reported regarding the genitourinary system. EENT: No signs and/or symptoms were reported regarding the EENT system. Derm: Skin is intact, is healthy with good turgor, Skin is pink, warm \\T\\ dry. normal. Musculoskeletal: Circulation, motion, and sensation intact. 21:00 Reassessment: Patient appears in no apparent distress at this time. Patient and/or wh family updated on plan of care and expected duration. Pain level reassessed. Patient is alert, oriented x 3, equal unlabored respirations, skin warm/dry/pink. Patient states feeling better. Patient states symptoms have improved. Vital Signs: 18:13 BP 146 / 86; Pulse 84; Resp 16; Temp 98.2; Pulse Ox 100% on R/A; Pain 4/10; hb 20:00 BP 136 / 82; Pulse 54; Resp 18; Pulse Ox 99% on R/A; wh 21:00 BP 140 / 80; Pulse 58; Resp 18; Pulse Ox 100% on R/A; ED Course: 18:06 Patient arrived in ED. rg4 18:14 Triage completed. hb 18:15 Arm band placed on. hb 18:43 Pal Ferreira MD is Attending Physician. mack 18:47 Zack Coughlin, RN is Primary Nurse. em 18:47 Patient has correct armband on for positive identification. Bed in low position. Call em light in reach. 19:35 Initial lab(s) drawn, by me, sent to lab. Inserted saline lock: 20 gauge in right jp3 antecubital area, using aseptic technique. Blood collected. Patient maintains SpO2 saturation greater than 95% on room air. 19:47 Verbal reassurance given. Pulse ox on. NIBP on. jp3 20:10 Abdomen Acute Series XRAY In Process Unspecified. EDSD 20:50 Nirmala Concepcion MD is Referral Physician. [facility] 21:11 No provider procedures requiring assistance completed. IV discontinued, intact, bleeding controlled, No redness/swelling at site. Administered Medications: 19:51 Drug: Lactulose 60 grams Volume: 45 ml; Route: PO; 21:12 Follow up: Response: No adverse reaction; Marked relief of symptoms 19:51 Drug: Dulcolax Suppository 10 mg Route: TN; 21:12 Follow up: Response: No adverse reaction; Marked relief of symptoms 19:52 Drug: NS 0.9% 1000 ml Route: IV; Rate: 1 bolus; Site: right antecubital; 21:13 Follow up: Response: No adverse reaction; IV Status: Completed infusion Outcome: 20:50 Discharge ordered by . [facility] 21:11 Discharged to home ambulatory, with family. 21:11 Condition: stable 21:11 Discharge instructions given to patient, Instructed on discharge instructions, follow up and referral plans. medication usage, POC Demonstrated understanding of instructions, follow-up care, medications, POC Prescriptions given X 3. 21:13 Patient left the ED. Signatures: Dispatcher [employer] EDSD Pal Ferreira MD MD cha Munoz, Edgar, RN RN Dorothea Morales, Ava Tello RN4 Arik Batrse Nicolas Andino jp3
--- NOTE | 2020-04-16 20:58 | RAD REPORT ---
EXAM DESCRIPTION: RAD - Abdomen Acute Series - 04/16/2020 8:10 pm CLINICAL HISTORY: Abdominal pain FINDINGS: The bowel gas pattern is unremarkable with a moderate amount of stool throughout the colon Free air is not seen beneath diaphragm Calcified granuloma left lung. Calcified hilar lymph nodes
[2020-04-16 23:54] VITALS: TEMP 98.2
[2020-04-16 23:57] VITALS: BP 140/80; O2SAT 100
== END 2020-04-16 21:13 | disposition home or self-care (01) ==
LOC: ER 18:04
DX: K59.00 Constipation, unspecified (principal); Z88.1 Allergy status to other antibiotic agents; Z88.5 Allergy status to narcotic agent; Z88.8 Allergy status to other drugs, medicaments and biological substances; Z91.041 Radiographic dye allergy status; Z91.040 Latex allergy status; Z91.048 Other nonmedicinal substance allergy status
CPT/HCPCS: 85025; 80048; 36415; 80076; 81003; 83690; 74022; 96360; 99284; J7030

== ENCOUNTER 2020-04-23 23:24 | Emergency (ER) | payer OTHER ==
--- OUTSIDE RECORDS SUMMARY | 2020-04-23 23:27 | XMS REPORT | Continuity of Care Document ---
:1960 Author Organization [employer] Care Team Providers Name Role Phone [employer] Unavailable Un available Problems Problem Status Onset [...] Hydrocodone Refill(s) Bitartrate 10 MG Oral Tablet [[place] 10/325] Clonazepam 2 MG 2 mg = [...] Comments Source Systolic (mm Hg) 143 [place] [facility] [place] Diastolic (mm Hg) 82 03[place]28/2019 [facility] Heart Rate 53 03/28/2019 [facility] [place] Respitory Rate 16 03/28/2019 [facility] Height 172.72 cm 03/28/2019 [facility] [place] Weight 89.091 03/28/2019 [facility] [place] BMI Calculated 29.86 03/28/2019 [facility] [place] BMI Calculated 30.47 09/26/2018 [facility] Weight 90.909 09/26/2018 [facility] Height 172.72 cm 09/26/2018 [facility] [place] Heart Rate 58 09/26/2018 [facility] [place] Respitory Rate 16 09/26/2018 [facility] [place] Systolic (mm Hg) 159 09/26/2018 [facility] Diastolic (mm Hg) 88 09/26/2018 [facility] [place] En[place] Location Location Encounter Encounter Reason Attending ADM [place] Source Details Type Number For Provider Date Date Visit [facility] Outpatient [id number] [place] 09[place] [facility] [place] [facility] [place] [id number] [place] 10/31 Active [facility] Ambulatory [id number] [place] 10/31 10[place]31 [facility] [place] [place] [id number] [place] 03/28 [facility] Outpatient [id number] [place] 03/28 03/29 [facility] [place] [facility] [place] MNA Outside [id number] 04/01 04/03 [facility] Neurology Medical /2018 Neuro [place] Records Outpatient [id number] [place] 04/11 Active [facility] Ambulatory [id number] [place] 04/11 04/11 [facility] [place] [facility] [facility] [place] [facility]NA Outside [id number] 04/18 04/20 [facility] Neurology Medical [place] Records Procedures No Data Provided for This Section Assessment and Plan No Data Provided for This Section Plan of Care No Data Provided for This Section Social History Social History Date Source Social History [place]Response [place] [facility] [place] Smoking Status Former smoker; Type: Cigarettes; Exposur e to Tobacco Smoke None; Cigarette Smoking Last 365 Days No; Reg Smoking Cessation Counseling No entered on: 03/28/19 Family History No Data Provided for This Section Advance Directives No Data Provided for This Section Functional Status No Data Provided for This Section
--- OUTSIDE RECORDS SUMMARY | 2020-04-23 23:27 | XMS REPORT ---
:1960 Author Organization [facility] Address [address] [place], 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 63465675 psoriasis Problem Acute tonsillitis, J03.90 Active 80520098 unspecified etiology Problem Asymptomatic R31.21 Active 167609627 microscopic hematuria Problem Chronic fatigue R53.82 Active 17880408 Problem Cervical M47.812 Active 510953193 spondylosis without myelopathy Problem Abnormal blood R73.09 Active 827352017 sugar Problem Acute upper J06.9 Active 65070139 respiratory infection Problem Chronic pain G89.4 Active 559324976 syndrome Problem Gastro-esophageal K21.9 Active 753784715 reflux disease without esophagitis Problem Generalized anxiety F41.1 Active 33247385 disorder Problem Essential (primary) I10 Active 01766500 hypertension Problem Post-traumatic F43.10 Active 04785795 stress disorder Problem Hyperglycemia R73.9 Active 53571309 Problem Essential I10 Active 71706878 hypertension Problem BMI 29.0-29.9,adult Z68.29 Active 79448617 Problem Wheezing R06.2 Active 57666819 Problem Constipation, K59.00 Active 85136342 unspecified constipation type Problem 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 9830338479344 4 cataplexy Problem Diverticulosis K57.90 Active 274932685 Problem Other chronic K86.1 Active 580409621 pancreatitis Problem Disc disorder M51.9 Active 74410326 Problem Nausea R11.0 Active 485238724 Problem Panic disorder with F40.01 Active 57009025 agoraphobia Problem Hospital discharge Z09 Active 187699160 follow-up Problem 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 Active 459927482 obs/LUTS ALLERGIES Allergen (clinical drug Drug/Non Drug Reaction Allergy Type Onset D ate Status ingredient) Allergy documented on EMR promethazine Phenergan([facility] hives Drug Allergy Active Code:[address]- 01) cephalexin Keflex([facility] rash Drug Allergy Active Code:[address]- 01) sulfamethoxazole / Bactrim DS([facility] rash Drug Allergy Active trimethoprim Code:[address]- 01) Levaquin stops breathing Drug Allergy Active eggs Rash Non Drug Active Allergy ENCOUNTERS from 1960 to 2020-04-17 Encounter Location Date Provider Diagnosis [place] [address] [place], [facility] Crohn''s disease without Drive Family [address], [place], [place] [address] unspecified gastrointestina l tract location K50.90 ; Constipation, unspecified con stipation type K59.00 ; Generalized anx iety disorder F41.1 ; Post-traumatic stress disorder F43.10 ; Essential (prim dariela) hypertension I1 0 ; Cervical spondy losis without myelopa thy M47.812 ; Chron ic pain syndrome G89.4 ; Gastro-esophage al reflux disease without esophagitis K21 .9 ; Chronic fatigue R53.82 ; Panic disorder with agoraphobia F40 .01 ; BPH loc w/o ur obs/ LUTS N40.0 and Diver ticulosis K57.90 IMMUNIZATIONS No Information SOCIAL HISTORY Tobacco Use: [...] No Information VITAL SIGNS Height 70 in Apr, Weight 179.2 lbs Apr, Temperature 96.8 degrees Fahrenheit Apr, BMI 25.71 kg/m2 Apr, Oximetry 97 % Apr, Respiratory Rate 16 /min Apr, Blood pressure systolic 132 mm Hg Apr, Blood pressure diastolic 70 mm Hg Apr, MEDICATIONS Medication SIG (Take, Route, Start Date End Date Status Frequency, Duration) Famotidine 20 MG 1 tablet at bedtime Orally Active every 12 hrs OneTouch Ultra - USE ONCE A DAY R73.09 for Active 90 Clonazepam 1 MG 1 tablet Orally BID PRN A ctive SEVERE ANXIETY for 30 days Protonix 40 MG 1 tablet Orally Once a day Active for 90 days Lactulose 10 GM/15ML 15 ml Orally BID PRN Apr, Active CONSTIPATION Dicyclomine HCl 20 MG 1 tablet Orally Four times Not-Taking a day for 30 day(s) Hydrocodone-Acetaminophen (Schedule II Drug) TK 1 T Active 10-325 MG PO TID Oral for 28 Ventolin HFA 108 (90 Base) 2 puffs Inhalation every 6 Active MCG/ACT hrs PRN for 90 days Creon [address]9625-[address] UNIT take by mouth 1 capsule 3 Active times a day as directed Orally 1 tab with each meal for 90 days Aspirin 81 81 MG 1 tablet Orally Once a day Sep, Not-Taking Carvedilol 25 MG take 1 tablet by mouth A ctive twice a day Orally BID for 90 days Albuterol Sulfate HFA 108 1 puff Inhalation every 6 25 Apr, 2015 Active (90 Base) MCG/ACT hrs OneTouch Delica Plus USE ONCE A DAY R73.09 for Active [id number] - 90 PROCEDURES No Information RESULTS No Results REASON FOR VISIT F/u and possible bump on left side MEDICAL (GENERAL) HISTORY Type Description Date Medical [...] No Information ASSESSMENTS Encounter Date Diagnosis Notes Apr, Gastro-esophageal reflux disease without esophagitis (ICD-10 - K21.9) Apr, Chronic pain syndrome (ICD-10 - G89.4) Apr, Panic disorder with agoraphobia (ICD-10 - F40.01) Apr, Chronic fatigue (ICD-10 - R53.82) Apr, Post-traumatic stress disorder (ICD-10 - F43.10) Apr, Generalized anxiety disorder (ICD-10 - F 41.1) Apr, Cervical spondylosis without myelopathy (ICD-10 - M47.812) Apr, Essential (primary) hypertension (ICD-10 - I10) Apr, Crohn''s disease without complication, u nspecified gastrointestinal tract location (ICD-10 - K50.90) Apr, Diverticulosis (ICD-10 - K57.90) Apr, BPH loc w/o ur obs/LUTS (ICD-10 - N40.0) Apr, Constipation, unspecified constipation t ype (ICD-10 - K59.00) PLAN OF TREATMENT Medication Medication Name Sig Start Date Stop Date Clonazepam 1 MG 1 tablet Orally BID PRN SEVERE ANXIETY for 30 days Lactulose 10 GM/15ML 15 ml Orally BID PRN CONSTIPATION 12 Nov, 2 020 Carvedilol 25 MG take 1 tablet by mouth twice a day Orally BID for 90 days Protonix 40 MG 1 tablet Orally Once a day for 90 days Creon [address] UNIT take by mouth 1 capsule 3 times a day as directed Orally 1 tab with each meal for 90 days Treatment Notes Assessment Notes Clinical Notes Crohn''s disease without Managed by GI. Education given. complication, unspecified gastrointestinal tract location Constipation, unspecified DIscussed DDX. Education given. constipation type PAtient was requesting cscope prep. Will trial Lactulose 15 mg BID PRN for constipation. Side effect dsicussed. Titrate down. Encouraged to make appt with Dr. Blount. Increase hydration + Fiber in diet + Activity as tolerated. Advised in s/s to moinitor and when to visit the nearest ED. PAtient vocalized understnading. Generalized anxiety disorder -- Anxiety Education: Anxiety [...] Education given. Next Appt Details 4 Weeks TV Reason: Provider Name:Reese Gregory, 2020-05-14 0 2:40:00 PM, [address] [place], [address], [place], [address], Insurance Providers Payer Name Payer Address Payer Insured Patient Coverage Cover age Phone Name Relationship to Start Date End Date Insured MEDICARE Attn Part B [id number] Alfred Escobar self [employer] [address] [facility] [address] [employer] [address] [address] [phone] Alfred Escobar [place] [address] [address] [facility] [address] [phone] Alfred Escobar self [facility] [address] [address]
--- OUTSIDE RECORDS SUMMARY | 2020-04-23 23:27 | XMS REPORT | Continuity of Care Document ---
:1960 Author Organization [facility] t Address [address] [place] [address] Care Team Providers Name Role Phone Theo Hernandez NP Attending Clinician Mau Armstrong Attending Clinician Problems Condition Condition Condition Status Onset Resolution Last Treating Co mments Source Name Details Category Date Date Treatment Clinician Date Hypertensi Problem Active 2019-04-22 M emoria ve 01:06:38 l disorder, [place] systemic Hypertensi arterial ve (disorder) disorder, systemic arterial (disorder) Active Problem 04/22/2019 [facility] Memory Problem Active 2019-04-22 Memor ia impairment 01:06:38 l (finding) Memory Maggy nn impairment (finding) Active Problem 04/22/2019 [facility] Neck pain Problem Active 2019-04-22 Me moria (finding) 01:06:38 l Neck [place] pain (finding) Active Problem 04/22/2019 [facility] [...] Active 2019-04-22 Me moria (finding) 01:06:38 roberto [place] Dizziness (finding) Active Problem 04/22/2019 [facility] Allergies, Adverse Reactions, Alerts Allergy Allergy Status Severity Reaction(s) Onset Inactive Treating Comm ents Source Name Type Date Date Clinician Keflex Adverse [facility] rash [facility] Phenerga Adverse Active hives [facility] Bactrim Adverse Active rash [facility] Levaquin Adverse Active stops [facility] Reaction breathing [facility] Levaquin Levaquin Active Memori a roberto FernándezEvan Social History Smoking Status Start Date Stop Date Source Social History 2019-03-28 18:18:16 2019-03-28 18:18:16 [facility] Evan Medications Ordered Filled Start Stop Current Ordering Indication Dosage Frequency Signature Comments Components Source Medication Medication Date Date Medication? Clinician (SIG) Name Name valsartan 2019 Yes 0 Memoria 40 mg oral 0-24 Refill(s) l tablet 19:12: [place] 00 pantoprazol Yes 40 mg = 1 [...] ermann Bitartrate 00 10 MG Oral Tablet [[place] 10/325] Clonazepam 2018- Yes 2 mg = 1 Mem oria 2 MG Oral 4-24 tab, PO, l Tablet 19:00: BID, # 60 Jun n [Klonopin] 00 tab, 0 Refill(s) Aspirin 81 Aspirin 81 2017- Yes Esthela [address] [facility] 4[facility]12 [facility] Albuterol Albuterol 2015- Yes Esthela [address] [facility] Sulfate HFA Sulfate HFA 1-25 [facility] Clonazepam Clonazepam Yes Esthela TAKE [address] [facility] TABLET BY [facility]TH [facility] TWICE A l DAY [facility] Carvedilol Carvedilol Yes Esthela take [address] [facility] tablet by [facility] mouth Memoria twice a l day [facility] Famotidine Famotidine Yes Esthela [address] [facility] Lat[facility] at bedtime [facility] Protonix Protonix Yes Esthela [address] Latimer [facility] Dicyclomine Dicyclomine Yes Esthela [address] [facility] HCl HCl Latimer [facility] Ventolin Ventolin Yes Esthela [address] HFA HFA Latimer [facility] Valsartan Valsartan Yes Esthela [address] [facility] Latimer [facility] Hydrocodone Hydrocodone Yes Esthela (Schedule [facility] -Acetaminop -Acetaminop Latimer II Drug) [facility] hen hen TK 1 T PO Memoria TID l [facility] Creon Creon 2019- No Esthela take by [facility] 07[facility]21 [facility] mouth 1 [facility] - 00:00 capsule 3 [...] Nona Gordon Height 2018-09-26 18:51:00 172.72 cm [facility] [place] Heart Rate 2018-09-26 18:51:00 [facility] [place] Respitory Rate 2018-09-26 18:51:00 Gricel arauz [place] Systolic (mm Hg) 2018-09-26 18:51:00 Lucio Fernándezann Diastolic (mm Hg) 2018-09-26 18:51:00 Mem orial [place] Procedures This patient has no known procedures. Encounters Start End Encounter Admission Attending Care Care Encounter Source Date/Time Date/Time Type Type Clinicians Facility Department ID 2020-04-16 2020-04-[facility] [id number] 2020-03-18 2020-03-18 [facility] [id number] [facility] 2020-03-18 2020-03-18 [facility] [id number] [facility] 2020-03-10 2020-03-10 [facility] [id number] [facility] 2019-07-21 2019-07-21 [facility] [id number] 18:06:23 22:09:00 Camila Layton [id number] [place] [id number] [place] [id number] 2019-07-15 2019-07-15 [facility] [id number] [facility] 15:01:00 15:01:00 t Specialty/U Martha kes - Specialty rology Memori a /Urology Clinic l Clinic Outpati ent Clinics 2019-07-09 2019-07-09 [facility] [id number] [facility] 16:46:00 16:46:00 t Specialty/U Martha kes - Specialty rology Memori a /Urology Clinic l Clinic Outpati ent Clinics 2019-07-08 2019-07-08 [facility] [id number] [address] 14:51:00 14:51:00 t Specialty/U Martha kes - Specialty rology Memori a /Urology Clinic l Clinic Outpati ent Clinics 2019-07-08 2019-07-08 [facility] [id number] 08:00:00 08:00:00 t Specialty/U Martha kes - Specialty rology Memori a /Urology Clinic l Clinic Outpati ent Clinics 2019-07-04 2019-07-04 [facility] [id number] [address] 13:00:00 13:00:00 t Specialty/U Martha kes - Specialty rology Memori a /Urology Clinic l Clinic Outpati ent Clinics 2019-07-02 2019-07-02 [facility] [id number] 14:32:00 14:32:00 t [facility] Medicine Outpati ent Clinics 2019-06-27 2019-06-27 [facility] [id number] 14:40:00 14:40:00 t [facility] Outpati ent Clinics 2019-06-03 2019-06-03 [facility] [id number] 11:17:00 11:17:00 t [facility] Outpati ent Clinics 2019-04-18 2019-04-19 Outpatient MHMISCHER MHMISCHER [id number] 12:37:59 23:59:59 2019-04-11 2019-04-11 Outpatient MARIAH ArmstrongSCHER [id number] 15:30:00 15:30:00 Pio Mau 2019-04-09 2019-04-09 [facility] [id number] 15:20:00 15:20:00 [facility] Outpati ent Clinics 2019-04-01 2019-04-02 Outpatient MHMISCHER MHMISCHER [id number] 08:58:44 23:59:59 2019-03-28 2019-03-28 Outpatient MARIAH Armstrong JUANSCHLATHA [id number] 13:00:00 23:59:59 P[facility] 2019-02-19 2019-02-19 [facility] [id number] [address] 14:40:00 14:40:00 [facility] Medicine Outpati ent Clinics 2018-12-11 2018-12-11 [facility] [id number] [address] 11[facility]21:00 11:21:00 [facility] Medicine Outpati ent Clinics 2018-11-19 2018-11-19 [facility] [id number] 14:40:00 14:40:00 [facility] Medicine Outpati ent Clinics 2018-10-31 2018-10-31 [id number] 13:45:00 13:45:00 Pio 01 [facility] 2018-09-26 2018-09-26 Outpatient MARIAH Armstrong [facility] [id number] 13:30:00 23:59:59 [place] 00 [facility] 2018-09-17 2018-09-17 [facility] [id number] [address] 16[facility]00[facility]00 16:00:00 [facility] Medicine Outpati ent Clinics 2018-08-02 2018-08-02 [facility] [id number] 16:07:00 16:07:[address] [employer] [facility] Medicine Outpati ent Clinics 2018-08-02 2018-08-02 [facility] [id number] [address] 16:05:00 16:05:[address] [place] [address] [facility] Medicine Outpati ent Clinics 2018-06-18 2018-06-18 [facility] [id number] 16:00:00 16:00:00 [facility] Medicine Outpati ent Clinics 2018-01-18 2018-01-18 [facility] [id number] 14:00:00 14:00:00 [facility] Medicine Outpati ent Clinics 2017-09-19 2017-09-19 Outpatient Malena Guyt [id number] 09:33:00 09:33:00 t [facility] Medicine Outpati ent Clinics 2017-09-14 2017-09-14 Outpatient Malena Guyt [id number] [address] 13:00:00 13:00:00 [facility] Medicine Outpati ent Clinics 2017-09-12 2017-09-12 Outpatient Malena Preston [id number] [address] 11:05:00 11:05:00 [facility] Medicine Outpati ent Clinics 2017-08-29 2017-08-29 Outpatient Malena Preston [id number] 15:30:00 15:30:00 [facility] Results This patient has no known results.
--- NOTE | 2020-04-24 00:32 | ER ---
Nurse's Notes [facility] Name: Alfredo Escobar Age: 59 yrs Sex: Male : 1960 Arrival Date: 04/23/2020 Time: 23:27 Bed 6 Private MD: Diagnosis: Uncontrolled hypertension. Headache Presentation: 04/23 23:45 Chief complaint: Patient states: yesterday around 0430H in the morning my BP 170/120 rr5 mmHg, my head is hurting and nape area. having slurred speech and numb on my left arm. 23:45 Coronavirus screen: Client denies travel out of the [place] in the last 14 days. At this rr5 time, the client does not indicate any symptoms associated with coronavirus-19. Ebola Screen: Patient negative for fever greater than or equal to 101.5 degrees Fahrenheit, and additional compatible Ebola Virus Disease symptoms Patient denies exposure to infectious person. Patient denies travel to an Ebola-affected area in the 21 days before illness onset. Initial Sepsis Screen: Does the patient meet any 2 criteria? No. Patient's initial sepsis screen is negative. Does the patient have a suspected source of infection? No. Patient's initial sepsis screen is negative. Risk Assessment: Do you want to hurt yourself or someone else? Patient reports no desire to harm self or others. Onset of symptoms was April 22, 2020. 23:45 Method Of Arrival: Ambulatory rr5 23:45 Acuity: BUCKY 3 rr5 Triage Assessment: 23:45 General: Appears in no apparent distress. uncomfortable, Behavior is calm, cooperative, rr5 appropriate for age. Historical: - Allergies: 23:55 Bactrim; rr5 23:55 Iodinated Contrast Media - IV Dye; rr5 23:55 Iodine; rr5 23:55 Keflex; rr5 23:55 Latex, Natural Rubber; rr5 23:55 Levaquin; rr5 23:55 promethazine HCl; rr5 23:55 Toradol; rr5 - Home Meds: 23:55 calcipotriene 0.005 % Topical oint 2 times per day [Active]; carvedilol 25 mg Oral tab rr5 2 times per day [Active]; Creon 39581 units Oral 3 times per day [Active]; [place] 10-325 mg Oral tab twice a day [Active]; clonazepam 2 mg Oral tab 2 times per day [Active]; Ventolin HFA 90 mcg/actuation Nebulizer HFAA 2 puffs every 8 hours [Active]; pantoprazole 40 mg Oral TbEC once daily [Active]; - PMHx: 23:55 Anxiety; Arthritis; Crohn's; GERD; Pancreatitis; PTSD; rr5 - Immunization history:: Adult Immunizations up to date. - Social history:: Smoking status: unknown Patient/guardian denies using alcohol, street drugs, tobacco products. Screenin:55 Abuse screen: Denies threats or abuse. Denies injuries from another. Nutritional rr5 screening: No deficits noted. Tuberculosis screening: No symptoms or risk factors identified. Fall Risk None identified. Total Preciado Fall Scale indicates No Risk (0-24 pts). 23:55 VAN Screening: Arm Drift: Patient shows no arm weakness. Patient is VAN negative. rr5 Assessment: 23:45 General: Appears in no apparent distress. uncomfortable, Behavior is calm, cooperative, rr5 appropriate for age. 23:45 Pain: Complains of pain in head Pain currently is 10 out of 10 on a pain scale. Quality rr5 of pain is described as aching, Pain began gradually, Is intermittent. Neuro: Level of Consciousness is awake, alert, obeys commands, Oriented to person, place, time, Reports headache. Cardiovascular: Capillary refill < 3 seconds Patient's skin is warm and dry. Respiratory: Airway is patent Respiratory effort is even, unlabored, Respiratory pattern is regular, symmetrical. GI: Reports nausea. : No signs and/or symptoms were reported regarding the genitourinary system. EENT: No signs and/or symptoms were reported regarding the EENT system. Derm: Skin is intact, is healthy with good turgor, Skin temperature is warm. Musculoskeletal: Circulation, motion, and sensation intact. Capillary refill < 3 seconds. 04/24 00:45 Reassessment: Patient appears in no apparent distress at this time. Patient is alert, rr5 oriented x 3, equal unlabored respirations, skin warm/dry/pink. discharge instruction given and explained without complaints made. awaiting for his son to be discharge. Vital Signs: 04/23 23:45 BP 145 / 88; Pulse 74; Resp 19; Temp 98.5; Pulse Ox 99% ; Weight 77.11 kg; Height 5 ft. rr5 10 in. (177.80 cm); Pain 03/14; 04/24 00:40 BP 120 / 85; Pulse 70; Resp 16; Pulse Ox 99% ; rr5 04/23 23:45 Body Mass Index 24.39 (77.11 kg, 177.80 cm) rr5 ED Course: 04/23 23:27 Patient arrived in ED. christian 23:38 Pablo Swartz MD is Attending Physician. xiomara 23:50 Grover De La Rosa, RN is Primary Nurse. rr5 23:54 Triage completed. rr5 23:55 Arm band placed on right wrist. rr5 23:55 Patient has correct armband on for positive identification. Bed in low position. Call rr5 light in reach. 04/24 00:40 No provider procedures requiring assistance completed. Patient did not have IV access rr5 during this emergency room visit. Administered Medications: No medications were administered Outcome: 00:32 Discharge ordered by . pkl 00:40 Discharged to home ambulatory. rr5 00:40 Condition: stable 00:40 Discharge instructions given to patient, Instructed on discharge instructions, follow up and referral plans. medication usage, Demonstrated understanding of instructions, follow-up care, medications, Prescriptions given X 1. 00:59 Patient left the ED. rr5 Signatures: Abdias Hardy RN RN Pablo Swartz MD MD pkl Roque, Raymond, RN RN rr5
--- NOTE | 2020-04-24 00:33 | EDPHYS ---
Physician Documentation [facility] Name: Alfredo Escobar Age: 59 yrs Sex: Male : 1960 Arrival Date: 04/23/2020 Time: 23:27 Bed 6 Private MD: ED Physician Pablo Swartz HPI: 04/24 00:26 This 59 yrs old Male presents to ER via Ambulatory with complaints of High pkl Blood Pressure. 00:26 Onset: The symptoms/episode began/occurred yesterday. Associated signs and symptoms: pkl Pertinent positives: headache, nausea, neck pain. Historical: - Allergies: 04/23 23:55 Bactrim; rr5 23:55 Iodinated Contrast Media - IV Dye; rr5 23:55 Iodine; rr5 23:55 Keflex; rr5 23:55 Latex, Natural Rubber; rr5 23:55 Levaquin; rr5 23:55 promethazine HCl; rr5 23:55 Toradol; rr5 - Home Meds: 23:55 calcipotriene 0.005 % Topical oint 2 times per day [Active]; carvedilol 25 mg Oral tab rr5 2 times per day [Active]; Creon 74198 units Oral 3 times per day [Active]; [place] 10-325 mg Oral tab twice a day [Active]; clonazepam 2 mg Oral tab 2 times per day [Active]; Ventolin HFA 90 mcg/actuation Nebulizer HFAA 2 puffs every 8 hours [Active]; pantoprazole 40 mg Oral TbEC once daily [Active]; - PMHx: 23:55 Anxiety; Arthritis; Crohn's; GERD; Pancreatitis; PTSD; rr5 - Immunization history:: Adult Immunizations up to date. - Social history:: Smoking status: unknown Patient/guardian denies using alcohol, street drugs, tobacco products. ROS: 04/24 00:26 Eyes: Negative for injury, pain, redness, and discharge, ENT: Negative for injury, pkl pain, and discharge. Neck: Positive for pain at rest. Cardiovascular: Negative for chest pain. Respiratory: Negative for cough, shortness of breath. Abdomen/GI: Positive for nausea, Negative for abdominal pain. Back: Negative for acute changes. : Negative for urinary symptoms. MS/extremity: Negative for acute changes. Skin: Negative for rash. Neuro: Positive for headache. Exam: 00:26 Head/Face: Normocephalic, atraumatic. Eyes: Pupils equal round and reactive to light, pkl extra-ocular motions intact. Lids and lashes normal. Conjunctiva and sclera are non-icteric and not injected. Cornea within normal limits. Periorbital areas with no swelling, redness, or edema. ENT: Nares patent. No nasal discharge, no septal abnormalities noted. Tympanic membranes are normal and external auditory canals are clear. Oropharynx with no redness, swelling, or masses, exudates, or evidence of obstruction, uvula midline. Mucous membranes moist. 00:26 Neck: Exam negative for nuchal rigidity. 00:26 Chest/axilla: Exam negative for acute changes. 00:26 Cardiovascular: Rate: normal, Rhythm: regular. 00:26 Respiratory: the patient does not display signs of respiratory distress, Respirations: normal, Breath sounds: are clear throughout. 00:26 Abdomen/GI: Bowel sounds: normal, Palpation: abdomen is soft and non-tender, in all quadrants. 00:26 Back: Exam negative for acute changes. 00:26 : Exam negative for acute changes. 00:26 Musculoskeletal/extremity: Exam is negative for acute changes. 00:26 Skin: Exam negative for rash. 00:26 Neuro: Orientation: is normal, Mentation: is normal, Cranial nerves: grossly normal, Motor: is normal, Gait: is steady. Vital Signs: 04/23 23:45 BP 145 / 88; Pulse 74; Resp 19; Temp 98.5; Pulse Ox 99% ; Weight 77.11 kg; Height 5 ft. rr5 10 in. (177.80 cm); Pain 10/10; 04/24 00:40 BP 120 / 85; Pulse 70; Resp 16; Pulse Ox 99% ; rr5 04/23 23:45 Body Mass Index 24.39 (77.11 kg, 177.80 cm) rr5 MDM: 04/23 23:38 Patient medically screened. pkl 04/24 00:26 Data reviewed: vital signs, nurses notes. pkl Administered Medications: No medications were administered Disposition: 04/24/20 00:32 Discharged to Home. Impression: Uncontrolled hypertension. Headache. - Condition is Stable. - Prescriptions for Zofran 4 mg Oral Tablet - take 1 tablet by ORAL route every 12 hours As needed; 10 tablet. - Medication Reconciliation Form, Thank You Letter, Antibiotic Education, Prescription Opioid Use form. - Follow up: Private Physician; When: 2 - 3 days; Reason: Re-evaluation by your physician. - Problem is new. - Symptoms have improved. Signatures: Pablo Swartz MD MD pkl Grover De La Rosa RN RN rr5 Corrections: (The following items were deleted from the chart) 00:59 00:32 04/24/2020 00:32 Discharged to Home. Impression: Uncontrolled hypertension. rr5 Headache. Condition is Stable. Forms are Medication Reconciliation Form, Thank You Letter, Antibiotic Education, Prescription Opioid Use. Follow up: Private Physician; When: 2 - 3 days; Reason: Re-evaluation by your physician. Problem is new. Symptoms have improved. pkl
[2020-04-24 19:21] VITALS: BP 145/88; TEMP 98.5; O2SAT 99
== END 2020-04-24 00:59 | disposition home or self-care (01) ==
LOC: ER 23:24
DX: I10 Essential (primary) hypertension (principal); F41.9 Anxiety disorder, unspecified; Z91.040 Latex allergy status; Z91.041 Radiographic dye allergy status; Z88.1 Allergy status to other antibiotic agents; Z88.5 Allergy status to narcotic agent; Z88.8 Allergy status to other drugs, medicaments and biological substances; Z91.048 Other nonmedicinal substance allergy status
CPT/HCPCS: 99282

== ENCOUNTER 2020-04-27 17:30 | Emergency (ER) | payer OTHER ==
--- OUTSIDE RECORDS SUMMARY | 2020-04-27 17:32 | XMS REPORT | Continuity of Care Document ---
:1960 Author Organization [employer] Care Team Providers Name Role Phone [employer] Unavailable Un available Problems Problem Status Onset [...] Hydrocodone Refill(s) Bitartrate 10 MG Oral Tablet [[place] 10/325] Clonazepam 2 MG 2 mg = [...] Location Location Encounter Encounter Reason Attending ADM MI Stat us Source Details Type Number For Provider Date Date Visit MNA Outpatient [id number] [place] 09/26 09/27 [facility] Neurology [facility] [place] Outpatient [id number] Pio 10/31 Active [facility] [place] MNA Ambulatory [id number] Pio 10/31 10/31 [facility] Neurology Pre-Reg [facility] [place] Outpatient [id number] Pio 03/28 [facility] MNA Outpatient [id number] Pio 03/28 03/29 [facility] Neurology [facility] [place] MNA Outside [id number] 04/01 04/03 [facility] Neurology Medical /2018 Neuro [place] Records Outpatient [id number] Pio 04/11 Active [facility]NA Ambulatory [id number] Pio 04/11 04/11 [facility] Neurology Pre-Reg [facility] [place] MNA Outside [id number] 04/18 04/20 [facility] Neurology Medical Neuro [place] Records Procedures No Data Provided for This [...]
--- OUTSIDE RECORDS SUMMARY | 2020-04-27 17:33 | XMS REPORT | Continuity of Care Document ---
:1960 Author Organization [facility] t Address [address] [place] [address] Care Team Providers Name Role Phone Theo Hernandez NP Attending Clinician Mau Armstrong Attending Clinician Problems Condition Condition Condition Status Onset Resolution Last Treating Co mments Source Name Details Category Date Date Treatment Clinician Date Hypertensi Problem Active 2019-04-22 M emoria ve 01:06:38 l disorder, [place] systemic Hypertensi arterial ve (disorder) disorder, systemic arterial (disorder) Active Problem 04/22/2019 [facility] Memory Problem Active 2019-04-22 Memor ia impairment 01:06:38 l (finding) Memory Maggy nn impairment (finding) Active Problem 04/22/2019 [facility] Neck pain Problem Active 2019-04-22 Me moria (finding) 01:06:38 l Neck [place] pain (finding) Active Problem 04/22/2019 [facility] Paresthesi Problem Active 2019-04-22 M emoria a 01:06:38 l (finding) [place] Paresthesi a (finding) Active Problem 04/22/2019 [facility] Simple Problem Active 2019-04-22 Memor ia obesity 01:06:38 l (disorder) Simple Herm jessa obesity (disorder) Active Problem 04/22/2019 [facility] Tremor Problem Active 2019-04-22 Memor ia (finding) 01:06:38 l Tremor [place] (finding) Active Problem 04/22/2019 [facility] Dizziness [...] [facility] Bactrim Adverse Active rash [facility] DS Reaction [facility] Levaquin Adverse Active stops [facility] Reaction breathing [facility] Levaquin Levaquin Active Memori a roberto FernándezEvan Social History Smoking Status Start Date Stop Date Source Social History 2019-03-28 18:18:16 2019-03-28 18:18:16 [facility] Evan Medications Ordered Filled Start Stop Current Ordering Indication Dosage Frequency Signature Comments Components Source Medication Medication Date Date Medication? Clinician (SIG) Name Name valsartan 2019 Yes 0 Memoria 40 mg oral 0-24 Refill(s) l tablet 19:12: Evan 00 pantoprazol Yes 40 mg = 1 M emoria e 40 mg 4-24 tab, PO, l oral 19:00: Daily, # [place] enteric 00 30 tab, 0 coated Refill(s) tablet carvedilol Yes 25 mg = 1 Me moria 25 mg oral 4-24 tab, PO, l tablet 19:00: BID, # 180 Maggy nn 00 tab, 0 Refill(s) Acetaminoph 2019- Yes 1 tab, PO, Memoria en 325 MG / 4-24 QID, 0 l Hydrocodone 19:00: Refill(s) H ermann Bitartrate 00 10 MG Oral Tablet [[place] 10/325] Clonazepam 2018- Yes 2 mg = 1 Mem oria 2 MG Oral 4-24 tab, PO, l Tablet 19:00: BID, # 60 Jun n [Klonopin] 00 tab, 0 Refill(s) Aspirin 81 Aspirin 81 2017- Yes Esthela [address] [facility] 4[facility]12 [facility] Albuterol Albuterol 2015- Yes Esthela [address] [facility] Sulfate HFA Sulfate HFA 1-25 [facility] Clonazepam Clonazepam Yes Esthela TAKE [address] [facility] Carvedilol Carvedilol Yes Esthela take [address] [facility]axon tablet by [facility] mouth [facility] twice a l day [facility] Famotidine Famotidine Yes Esthela [address] [facility] at bedtime [facility] Protonix Protonix Yes Esthela [address] [facility] Dicyclomine Dicyclomine Yes Esthela [address] [facility] HCl HCl [facility] Ventolin Ventolin Yes Esthela [address] HFA HFA [facility] Valsartan Valsartan Yes Esthela [address] [facility] Hydrocodone Hydrocodone Yes Esthela (Schedule [facility] -Acetaminop -Acetaminop [facility] II Drug) [facility] hen hen TK 1 T PO [facility] TID l [facility] Creon Creon 2019- No Esthela take by [facility] 07[facility]21 [facility] mouth 1 [facility] - 00:00 capsule 3 [...] Gordon Height 2018-09-26 18:51:00 172.72 cm [facility] Heart Rate 2018-09-26 18:51:00 Nona [place] Respitory Rate 2018-09-26 18:51:00 Gricel Wright Systolic (mm Hg) 2018-09-26 18:51:00 Lucio Fernándezann Diastolic (mm Hg) 2018-09-26 18:51:00 Mem orial [place] Procedures This patient has no known procedures. Encounters Start End Encounter Admission Attending Care Care Encounter Source Date/Time Date/Time Type Type Clinicians Facility Department ID 2020-04-16 2020-04-[address] [id number] 2020-03-18 2020-03-[address] [facility] [id number] [facility] 2020-03-18 2020-03-[address] [facility] [id number] 2020-03-10 2020-03-[address] [facility] [id number] [facility] 2019-07-21 2019-07-21 [facility] [id number] 18:06:23 22:09:00 Camila Layton [id number] [place] [id number] [place] [id number] 2019-07-15 2019-07-15 [facility] [id number] [facility] 15:01:00 15:01:00 t Specialty/U Martha kes - Specialty rology [facility]Urology [facility] l Clinic Outpat[facility] ent Clinics 2019-07-09 2019-07-09 [facility] [id number] [address] 16:46:00 16:46:00 t Specialty/U Martha kes - Specialty rology Mem[facility] /Urology Clinic l Clinic Outpati ent Clinics 2019-07-08 2019-07-08 [facility] [id number] 14:51:00 14:51:00 t Specialty/U Martha kes - Specialty rology Mem[facility] /Urology Clinic l Clinic Outpati ent Clinics 2019-07-08 2019-07-08 [facility] [id number] 08:00:00 08:00:00 t Specialty/U Martha kes - Specialty rology Memori a /Urology Clinic l Clinic Outpati ent Clinics 2019-07-04 2019-07-04 [facility] [id number] 13:00:00 13:00:00 t Specialty/U Martha kes - Specialty rology Memori a /Urology Clinic l Clinic Outpati ent Clinics 2019-07-02 2019-07-02 [facility] [id number] 14:32:00 14:32:00 t [facility] Outpati ent Clinics 2019-06-27 2019-06-27 [facility] [id number] 14:40:00 14:40:00 t [facility] Outpati ent Clinics 2019-06-03 2019-06-03 [facility] [id number] 11:17:00 11:17:00 t [facility] Outpati ent Clinics 2019-04-18 2019-04-19 Outpatient MHMISCHER MHMISCHER [id number] 12:37:59 23:59:59 2019-04-11 2019-04-11 Outpatient MARIAH ArmstrongSCHLATHA [id number] 15:30:00 15:30:00 Pio León 2019-04-09 2019-04-09 [facility] [id number] 15:20:00 15:20:00 [facility] Outpat[facility] Clinics 2019-04-01 2019-04-02 Outpatient MHMISCHER MHMISCHER [id number] 08:58:44 23:59:59 2019-03-28 2019-03-28 Outpatient MARIAH Armstrong JUANSCHLATHA [id number] 13:00:00 23:59:59 [facility] 2019-02-19 2019-02-19 [facility] [id number] 14:40:00 14:40:00 t [facility] Medicine Outpati ent Clinics 2018-12-11 2018-12-11 [facility] [id number] 11:21:00 11:21:00 [facility] Medicine Outpati ent Clinics 2018-11-19 2018-11-19 [facility] [id number] 14:40:00 14:40:00 [facility] Medicine Outpati ent Clinics 2018-10-31 2018-10-31 Outpatient [facility] Armstrong [id number] 13:45:00 13:45:00 [facility] 01 [facility] 2018-09-26 2018-09-26 Outpatient MARIAH Armstrong [facility] [id number] 13:30:00 23:59:59 [facility] 00 [facility] 2018-09-17 2018-09-17 [facility] [id number] 16:00:00 16:00:00 [facility] Medicine Outpati ent Clinics 2018-08-02 2018-08-02 [facility] [id number] 16:07:00 16:07:00 [employer] [facility] Medicine Outpati ent Clinics 2018-08-02 2018-08-02 [facility] [id number] 16:05:00 16:05:00 t [employer] [facility] Medicine Outpati ent Clinics 2018-06-18 2018-06-18 [facility] [id number] [address] 16:00:00 16:00:00 [facility] Medicine Outpati ent Clinics 2018-01-18 2018-01-18 [facility] [id number] [facility] 14:00:00 14:00:00 [facility] Medicine Outpati ent Clinics 2017-09-19 2017-09-19 Outpatient Malena Guyt [id number] 09:33:00 09:33:00 t [facility] Medicine Outpati ent Clinics 2017-09-14 2017-09-14 Outpatient Malena Guyt [id number] 13:00:00 13:00:00 [facility] Medicine Outpati ent Clinics 2017-09-12 2017-09-12 Outpatient Malena Preston [id number] [facility] 11:05:00 11:05:00 [facility] Medicine Outpati ent Clinics 2017-08-29 2017-08-29 Outpatient Malena Preston [id number] 15:30:00 15:30:00 [facility] Results This patient has no known results.
[2020-04-27] MEDS ORDERED: ONDANSETRON 4 MG/2 ML VIAL ONE ×2 (20:30→23:15)
[2020-04-27] MEDS ORDERED: NA CHLORIDE 0.9% 2,000 ML ONE (20:30)
[2020-04-27 20:39] LABS: Absolute Lymphocytes (CBC) 0.4 K/uL (0.7-4.9); Basophils % 0.2 % (0-1.3); Hematocrit 45.9 % (39.6-49.0); Lymphocytes % 3.9 % (15.3-44.8); MPV 7.8 fL (7.6-11.3); RBC Red Blood Cell Count 5.12 M/uL (4.33-5.43)
[2020-04-27 21:02] LABS: Albumin 3.8 g/dL (3.4-5.0); Bilirubin Direct 0.2 mg/dL (0-0.2); Potassium 4.4 mmol/L (3.5-5.1); Protein, Total 7.2 g/dL (6.4-8.2)
[2020-04-27 21:09] LABS: Barbiturates NEGATIVE (NEGATIVE); Benzodiazepines NEGATIVE (NEGATIVE); Cocaine NEGATIVE (NEGATIVE); METHAMPHETAM NEGATIVE (NEGATIVE); Methadone NEGATIVE (NEGATIVE); Opiates NEGATIVE (NEGATIVE); Phencyclidine NEGATIVE (NEGATIVE); THC Cannibis NEGATIVE (NEGATIVE)
[2020-04-27 21:48] LABS: Blood Morphology Comment NOT SEEN (NOT SEEN); Platelet Estimate ADEQ
[2020-04-27] MEDS ORDERED: HYDROCODONE/APAP 7.5/325 MG TAB ONE (22:05)
[2020-04-27 22:51] LABS: Urine Blood TRACE (NEG); Urine Glucose NEGATIVE (NEG); Urine Protein NEGATIVE (NEG); Urine pH 5.5 (5.0-7.0)
--- NOTE | 2020-04-27 23:09 | EDPHYS ---
Physician Documentation [facility] Name: Alfredo Escobar Age: 59 yrs Sex: Male : 1960 Arrival Date: 04/27/2020 Time: 17:31 Bed 13 Private MD: ED Physician Pablo Swartz HPI: 04/27 20:03 This 59 yrs old Male presents to ER via Ambulatory with complaints of pkl Dehydration, Vomiting, Pain All Over. 20:03 The patient presents to the emergency department with nausea, vomiting, abdominal pain, pkl of the right upper quadrant, left upper quadrant, right lower quadrant and left lower quadrant. Onset: The symptoms/episode began/occurred this morning. Historical: - Allergies: 17:59 Bactrim; ca1 17:59 Iodinated Contrast Media - IV Dye; ca1 17:59 Iodine; ca1 17:59 Keflex; ca1 17:59 Latex, Natural Rubber; ca1 17:59 Levaquin; ca1 17:59 promethazine HCl; ca1 17:59 Toradol; ca1 - Home Meds: 17:59 calcipotriene 0.005 % Topical oint 2 times per day [Active]; carvedilol 25 mg Oral tab ca1 2 times per day [Active]; clonazepam 2 mg Oral tab 2 times per day [Active]; Creon 41927 units Oral 3 times per day [Active]; Euless 10-325 mg Oral tab twice a day [Active]; pantoprazole 40 mg Oral TbEC once daily [Active]; Ventolin HFA 90 mcg/actuation Nebulizer HFAA 2 puffs every 8 hours [Active]; - PMHx: 17:59 Anxiety; Arthritis; Crohn's; GERD; Pancreatitis; PTSD; ca1 - Immunization history:: Adult Immunizations up to date, Flu vaccine is not up to date. - Social history:: Smoking status: Patient denies any tobacco usage or history of. ROS: 20:03 Eyes: Negative for injury, pain, redness, and discharge, ENT: Negative for injury, pkl pain, and discharge, Neck: Negative for injury, pain, and swelling, Cardiovascular: Negative for chest pain, palpitations, and edema, Respiratory: Negative for shortness of breath, cough, wheezing, and pleuritic chest pain. 20:03 Abdomen/GI: Positive for abdominal pain, nausea and vomiting, of the right upper quadrant, left upper quadrant, right lower quadrant and left lower quadrant. 20:03 Back: Negative for acute changes. 20:03 : Negative for urinary symptoms. 20:03 MS/extremity: Negative for acute changes. 20:03 Skin: Negative for rash. 20:03 Neuro: Negative for altered mental status. Exam: 20:03 Head/Face: Normocephalic, atraumatic. Eyes: Pupils equal round and reactive to light, pkl extra-ocular motions intact. Lids and lashes normal. Conjunctiva and sclera are non-icteric and not injected. Cornea within normal limits. Periorbital areas with no swelling, redness, or edema. ENT: Nares patent. No nasal discharge, no septal abnormalities noted. Tympanic membranes are normal and external auditory canals are clear. Oropharynx with no redness, swelling, or masses, exudates, or evidence of obstruction, uvula midline. Mucous membranes moist. Neck: Trachea midline, no thyromegaly or masses palpated, and no cervical lymphadenopathy. Supple, full range of motion without nuchal rigidity, or vertebral point tenderness. No Meningismus. Chest/axilla: Normal chest wall appearance and motion. Nontender with no deformity. No lesions are appreciated. Cardiovascular: Regular rate and rhythm with a normal S1 and S2. No gallops, murmurs, or rubs. Normal PMI, no JVD. No pulse deficits. Respiratory: Lungs have equal breath sounds bilaterally, clear to auscultation and percussion. No rales, rhonchi or wheezes noted. No increased work of breathing, no retractions or nasal flaring. 20:03 Abdomen/GI: Bowel sounds: active, Palpation: soft, mild abdominal tenderness, in all quadrants. 20:03 Back: Exam negative for acute changes. 20:03 : Exam negative for acute changes. 20:03 Musculoskeletal/extremity: Exam is negative for acute changes. 20:03 Skin: Exam negative for rash. 20:03 Neuro: Orientation: is normal, Mentation: is normal, Cranial nerves: grossly normal, Motor: is normal. Vital Signs: 17:55 BP 114 / 90; Pulse 81; Resp 16 S; Temp 98.5(TE); Pulse Ox 97% on R/A; Weight 78.02 kg ca1 (R); Height 5 ft. 10 in. (177.80 cm) (R); 21:00 BP 110 / 54; Pulse 80; Resp 16; Pulse Ox 98% ; rr5 21:42 BP 129 / 73; Pulse 74; Resp 16; Pulse Ox 99% ; rr5 04/28 00:28 BP 105 / 60; Pulse 70; Resp 19; Pulse Ox 99% ; rr5 02:00 BP 110 / 63; Pulse 76; Resp 16; Pulse Ox 98% ; rr5 07:11 BP 110 / 67; Pulse 76; Resp 16; Pulse Ox 99% on R/A; tw2 04/27 17:55 Body Mass Index 24.68 (78.02 kg, 177.80 cm) ca1 MDM: 04/27 19:51 Patient medically screened. pkl 23:04 Data reviewed: vital signs, nurses notes, lab test result(s), radiologic studies, plain pkl films. ED course: Patient complained of starting to have diarrhea. Discussed lab and X' rays results with patient. Advised to follow up with PCP in 2 to 3 days. Patient understood instructions. 04/27 20:02 Order name: Basic Metabolic Panel; Complete Time: 22:21 pkl 04/27 20:02 Order name: CBC with Diff; Complete Time: 22:21 pkl 04/27 20:02 Order name: Hepatic Function; Complete Time: 22:21 pkl 04/27 20:02 Order name: Lipase; Complete Time: 22:21 pkl 04/27 20:07 Order name: UDS; Complete Time: 22:21 pkl 04/27 20:45 Order name: Manual Differential; Complete Time: 22:21 EDMS 04/27 20:02 Order name: XRAY Abdomen Acute Series; Complete Time: 07:01 pkl 04/27 21:45 Order name: Urine Dipstick--Ancillary (enter results); Complete Time: 22:57 tt3 04/27 20:02 Order name: IV Saline Lock; Complete Time: 20:59 pkl 04/27 20:02 Order name: Labs collected and sent; Complete Time: 21:00 pkl Administered Medications: 20:32 Drug: NS 0.9% 1000 ml Route: IV; Rate: 1000 ml; Site: right antecubital; rr5 21:39 Follow up: Response: No adverse reaction; IV Status: Completed infusion; IV Intake: rr5 1000ml 20:32 Drug: Zofran (Ondansetron) 4 mg Route: IVP; Site: right antecubital; rr5 21:30 Follow up: Response: No adverse reaction rr5 21:39 Drug: NS 0.9% 1000 ml Route: IV; Rate: 125 ml/hr; Site: right antecubital; rr5 04/28 02:10 Follow up: Response: No adverse reaction; IV Status: Completed infusion; IV Intake: rr5 1000ml 04/27 23:05 Drug: Zofran (Ondansetron) 4 mg Route: IVP; Site: right antecubital; rr5 04/28 00:00 Follow up: Response: No adverse reaction; Vomiting unchanged rr5 04/27 23:07 Dru mg of (Zithromax 500 mg, NS 0.9% 250 ml) Route: IVPB; Infused Over: 1 hrs; rr5 Site: right antecubital; 04/28 00:28 Follow up: Response: No adverse reaction; IV Status: Completed infusion; IV Intake: rr5 250ml 04/27 23:36 Drug: Zofran (Ondansetron) 4 mg Route: PO; sg 04/28 00:00 Follow up: Response: No adverse reaction sg 00:07 Drug: LoMOTIL 2 tabs Route: PO; rr5 01:00 Follow up: Response: No adverse reaction rr5 07:06 Drug: Euless (7.5 mg-325 mg) 1 tabs {Note: RASS 0.} Route: PO; tw2 07:15 Follow up: Response: No adverse reaction; Pain is decreased; RASS: Alert and Calm (0) tw2 07:06 Drug: Zofran (Ondansetron) 4 mg Route: PO; tw2 07:15 Follow up: Response: No adverse reaction tw2 Disposition: 04/27/20 23:08 Discharged to Home. Impression: Abdominal pain. Gastroenteritis. - Condition is Stable. - Prescriptions for Zithromax Z- Mg 250 mg Oral Tablet - take 1 tablet by ORAL route as directed for 5 days Day 1 - take two (2) tablets one time. Day 2, 3, 4 , 5 take one (1) tablet once daily.; 6 tablet. - Medication Reconciliation Form, Thank You Letter, Antibiotic Education, Prescription Opioid Use form. - Follow up: Private Physician; When: 2 - 3 days; Reason: Re-evaluation by your physician. - Problem is new. - Symptoms have improved. Signatures: Dispatcher [employer] EDMS Abdias Hardy, RN RN sg Pablo wSartz MD MD pkl Aurelia Gold RN RN tw2 Grover De La Rosa, RN RN rr5 Chelo Nolasco RN RN ca1 Corrections: (The following items were deleted from the chart) 06:51 04/27 23:08 04/27/2020 23:08 Discharged to Home. Impression: Abdominal pain. sg Gastroenteritis. Condition is Stable. Forms are Medication Reconciliation Form, Thank You Letter, Antibiotic Education, Prescription Opioid Use. Follow up: Private Physician; When: 2 - 3 days; Reason: Re-evaluation by your physician. Problem is new. Symptoms have improved. pkl 04/28 07:16 06:51 04/27/2020 23:08 Discharged to Home. Impression: Abdominal pain. Gastroenteritis. tw2 Condition is Stable. Prescriptions for Zithromax Z-Mg 250 mg Oral Tablet - take 1 tablet by ORAL route as directed for 5 days Day 1 - take two (2) tablets one time. Day 2, 3, 4 , 5 take one (1) tablet once daily.; 6 tablet. and Forms are Medication Reconciliation Form, Thank You Letter, Antibiotic Education, Prescription Opioid Use. Follow up: Private Physician; When: 2 - 3 days; Reason: Re-evaluation by your physician. Problem is new. Symptoms have improved. sg
--- NOTE | 2020-04-27 23:09 | ER ---
Nurse's Notes [facility] Name: Alfredo Escobar Age: 59 yrs Sex: Male : 1960 Arrival Date: 04/27/2020 Time: 17:31 Bed 13 Private MD: Diagnosis: Abdominal pain. Gastroenteritis Presentation: 04/27 17:55 Chief complaint: Patient states: I feel sick, my whole body aches, nauseated, started ca1 vomiting. I woke up to all of these this morning. My calves hurt, my arms hurt and I'm swollen in my stomach. Coronavirus screen: Client denies travel out of the [place] in the last 14 days. muscle pain, nausea, vomiting. Client presents with at least one sign or symptom that may indicate coronavirus-19. Standard/surgical mask placed on the client. Provider contacted for isolation considerations. Ebola Screen: Patient negative for fever greater than or equal to 101.5 degrees Fahrenheit, and additional compatible Ebola Virus Disease symptoms Patient denies exposure to infectious person. Patient denies travel to an Ebola-affected area in the 21 days before illness onset. No symptoms or risks identified at this time. Initial Sepsis Screen: Does the patient meet any 2 criteria? No. Patient's initial sepsis screen is negative. Does the patient have a suspected source of infection? No. Patient's initial sepsis screen is negative. Risk Assessment: Do you want to hurt yourself or someone else? Patient reports no desire to harm self or others. Onset of symptoms was April 27, 2020. 17:55 Method Of Arrival: Ambulatory ca1 17:55 Acuity: BUCKY 3 ca1 Historical: - Allergies: 17:59 Bactrim; ca1 17:59 Iodinated Contrast Media - IV Dye; ca1 17:59 Iodine; ca1 17:59 Keflex; ca1 17:59 Latex, Natural Rubber; ca1 17:59 Levaquin; ca1 17:59 promethazine HCl; ca1 17:59 Toradol; ca1 - Home Meds: 17:59 calcipotriene 0.005 % Topical oint 2 times per day [Active]; carvedilol 25 mg Oral tab ca1 2 times per day [Active]; clonazepam 2 mg Oral tab 2 times per day [Active]; Creon 42558 units Oral 3 times per day [Active]; Rolla 10-325 mg Oral tab twice a day [Active]; pantoprazole 40 mg Oral TbEC once daily [Active]; Ventolin HFA 90 mcg/actuation Nebulizer HFAA 2 puffs every 8 hours [Active]; - PMHx: 17:59 Anxiety; Arthritis; Crohn's; GERD; Pancreatitis; PTSD; ca1 - Immunization history:: Adult Immunizations up to date, Flu vaccine is not up to date. - Social history:: Smoking status: Patient denies any tobacco usage or history of. Screenin:40 Abuse screen: Denies threats or abuse. Denies injuries from another. Nutritional rr5 screening: No deficits noted. Tuberculosis screening: No symptoms or risk factors identified. Fall Risk IV access (20 points). Total Preciado Fall Scale indicates No Risk (0-24 pts). Assessment: 19:40 General: Appears in no apparent distress. uncomfortable, Behavior is calm, cooperative, rr5 appropriate for age. 19:40 Pain: Complains of pain in body. Neuro: Level of Consciousness is awake, alert, obeys rr5 commands, Oriented to person, place, time. Cardiovascular: Capillary refill < 3 seconds Patient's skin is warm and dry. Respiratory: Airway is patent Respiratory effort is even, unlabored, Respiratory pattern is regular, symmetrical. GI: Abdomen is round non-distended, Reports nausea, vomiting. : No signs and/or symptoms were reported regarding the genitourinary system. EENT: No signs and/or symptoms were reported regarding the EENT system. Derm: Skin is intact, is healthy with good turgor, Skin temperature is warm. Musculoskeletal: Capillary refill < 3 seconds, Reports pain in body. 20:30 Reassessment: Patient appears in no apparent distress at this time. Patient is alert, rr5 oriented x 3, equal unlabored respirations, skin warm/dry/pink. awaiting for result. 21:42 Reassessment: Patient appears in no apparent distress at this time. Patient is alert, rr5 oriented x 3, equal unlabored respirations, skin warm/dry/pink. eyes closed breathing spontaneously at room air. 23:00 Reassessment: reassess by ED provider for discharge after the antibiotic infusion and rr5 patient complaint of nausea, with order made and carried out. 23:45 Reassessment: ED provider with additional order and carried out, patient still rr5 nauseated and vomiting Patient states symptoms have not improved. 23:50 Reassessment: pt stated " They just gave me some of that zofran, I doubt this is going sg to work." pt instructed this zofran will be PO. pt stated understanding, pt states " Man, they will just try everything to get rid of me wont they." pt educated that this medication is ordered to help the patient get better. pt stated " what would get me better is if you get me a room upstairs and let me find someone to watch this kid, because I am very sick." pt educated on current orders and POC, pt stated understanding. 04/28 00:20 Reassessment: IV infusion consumed and terminated. patient stated I don't want to go rr5 home. ED provider aware. 00:55 Reassessment: Patient appears in no apparent distress at this time. Patient is alert, rr5 oriented x 3, equal unlabored respirations, skin warm/dry/pink. keep the patient for observation as ED provider verbalized. 02:28 Reassessment: Patient appears in no apparent distress at this time. eyes closed rr5 breathing spontaneously at room air. 03:06 Reassessment: Patient appears in no apparent distress at this time. Patient is alert, rr5 oriented x 3, equal unlabored respirations, skin warm/dry/pink. 04:00 Reassessment: Patient appears in no apparent distress at this time. pt observed to be sg sleeping at this time, pt son at bedside listening to music at this time, pt awaiting discharge to home. 07:10 Reassessment: Patient appears in no apparent distress at this time. Patient and/or tw2 family updated on plan of care and expected duration. Pain level reassessed. Patient is alert, oriented x 3, equal unlabored respirations, skin warm/dry/pink. 07:16 Reassessment: Patient appears in no apparent distress at this time. Patient and/or tw2 family updated on plan of care and expected duration. Pain level reassessed. Patient is alert, oriented x 3, equal unlabored respirations, skin warm/dry/pink. Vital Signs: 04/27 17:55 BP 114 / 90; Pulse 81; Resp 16 S; Temp 98.5(TE); Pulse Ox 97% on R/A; Weight 78.02 kg ca1 (R); Height 5 ft. 10 in. (177.80 cm) (R); 21:00 BP 110 / 54; Pulse 80; Resp 16; Pulse Ox 98% ; rr5 21:42 BP 129 / 73; Pulse 74; Resp 16; Pulse Ox 99% ; rr5 04/28 00:28 BP 105 / 60; Pulse 70; Resp 19; Pulse Ox 99% ; rr5 02:00 BP 110 / 63; Pulse 76; Resp 16; Pulse Ox 98% ; rr5 07:11 BP 110 / 67; Pulse 76; Resp 16; Pulse Ox 99% on R/A; tw2 04/27 17:55 Body Mass Index 24.68 (78.02 kg, 177.80 cm) ca1 ED Course: 04/27 17:31 Patient arrived in ED. as 17:57 Triage completed. ca1 17:59 Arm band placed on right wrist. ca1 19:39 Grover De La Rosa, RN is Primary Nurse. rr5 19:40 Patient has correct armband on for positive identification. Bed in low position. Call rr5 light in reach. Pulse ox on. NIBP on. 19:51 Pablo Swartz MD is Attending Physician. pkl 20:30 Inserted saline lock: 20 gauge in right antecubital area, using aseptic technique. rr5 Blood collected. 20:51 XRAY Abdomen Acute Series In Process Unspecified. EDMS 21:00 Urine collected: clean catch specimen, clear. rr5 04/28 07:01 Primary Nurse role handed off by Grover De La Rosa, MARY sg 07:10 No provider procedures requiring assistance completed. IV discontinued, intact, tw2 bleeding controlled, No redness/swelling at site. Pressure dressing applied. 07:15 Aurelia Gold, RN is Primary Nurse. tw2 Administered Medications: 04/27 20:32 Drug: NS 0.9% 1000 ml Route: IV; Rate: 1000 ml; Site: right antecubital; rr5 21:39 Follow up: Response: No adverse reaction; IV Status: Completed infusion; IV Intake: rr5 1000ml 20:32 Drug: Zofran (Ondansetron) 4 mg Route: IVP; Site: right antecubital; rr5 21:30 Follow up: Response: No adverse reaction rr5 21:39 Drug: NS 0.9% 1000 ml Route: IV; Rate: 125 ml/hr; Site: right antecubital; rr5 04/28 02:10 Follow up: Response: No adverse reaction; IV Status: Completed infusion; IV Intake: rr5 1000ml 04/27 23:05 Drug: Zofran (Ondansetron) 4 mg Route: IVP; Site: right antecubital; rr5 04/28 00:00 Follow up: Response: No adverse reaction; Vomiting unchanged rr5 04/27 23:07 Dru mg of (Zithromax 500 mg, NS 0.9% 250 ml) Route: IVPB; Infused Over: 1 hrs; rr5 Site: right antecubital; 04/28 00:28 Follow up: Response: No adverse reaction; IV Status: Completed infusion; IV Intake: rr5 250ml 04/27 23:36 Drug: Zofran (Ondansetron) 4 mg Route: PO; sg 04/28 00:00 Follow up: Response: No adverse reaction sg 00:07 Drug: LoMOTIL 2 tabs Route: PO; rr5 01:00 Follow up: Response: No adverse reaction rr5 07:06 Drug: Rolla (7.5 mg-325 mg) 1 tabs {Note: RASS 0.} Route: PO; tw2 07:15 Follow up: Response: No adverse reaction; Pain is decreased; RASS: Alert and Calm (0) tw2 07:06 Drug: Zofran (Ondansetron) 4 mg Route: PO; tw2 07:15 Follow up: Response: No adverse reaction tw2 Intake: 04/27 21:39 IV: 1000ml; Total: 1000ml. rr5 04/28 00:28 IV: 250ml; Total: 1250ml. rr5 02:10 IV: 1000ml; Total: 2250ml. rr5 Outcome: 04/27 23:08 Discharge ordered by . xiomara 04/28 06:51 Patient left the ED. sg 07:16 Discharged to home ambulatory. tw2 07:16 Condition: stable 07:16 Discharge instructions given to patient, Instructed on discharge instructions, follow up and referral plans. medication usage, Demonstrated understanding of instructions, follow-up care, medications, Prescriptions given X 1. 07:16 Patient left the ED. tw2 Signatures: [facility] E[facility] Raya RN RN Pablo Nova MD MD pkl Martinez, Amelia as Aurelia Gold, RN RN tw2 Grover De La Rosa, RN RN rr5 Chelo Nolasco, RN RN ca1
[2020-04-27] MEDS ORDERED: NA CHLORIDE 0.9% 250 ML ONE (23:16)
[2020-04-27] MEDS ORDERED: AZITHROMYCIN 500 MG INJ IVPB ONE (23:16)
[2020-04-27] MEDS ORDERED: ONDANSETRON 4 MG (ODT) TAB ONE (23:54)
[2020-04-28] MEDS ORDERED: DIPHENOX/ATROP SULF 1 TAB PO ONE (00:17)
--- NOTE | 2020-04-28 06:52 | RAD REPORT ---
EXAM DESCRIPTION: RAD - Abdomen Acute Series - 04/27/2020 10:41 pm CLINICAL HISTORY: Abd pain;Nausea / vomiting COMPARISON: Abdomen Acute Series dated 04/16/2020 FINDINGS: Lungs are clear. Heart size and pulmonary vasculature are normal. No pleural effusion, pne umothorax or other acute cardiopulmonary process seen. Several calcified granulomas are noted lung pa renchyma and rashmi, stable from prior imaging. Bowel gas pattern is nonspecific. No bowel obstruction, free air or other acute findings. No suspicio us calcifications. No other suspicious for significant findings. IMPRESSION: Negative acute abdomen series. No significant change from comparison.
[2020-04-28] MEDS ORDERED: HYDROCODONE/APAP 7.5/325 MG TAB ONE (07:15)
[2020-04-28] MEDS ORDERED: ONDANSETRON 4 MG (ODT) TAB ONE (07:19)
[2020-04-28 08:50] VITALS: TEMP 98.5
[2020-04-28 09:15] VITALS: BP 110/67; O2SAT 99
== END 2020-04-28 07:16 | disposition home or self-care (01) ==
LOC: ER 17:30
DX: K52.9 Noninfective gastroenteritis and colitis, unspecified (principal); F41.9 Anxiety disorder, unspecified; K21.9 Gastro-esophageal reflux disease without esophagitis; Z88.1 Allergy status to other antibiotic agents; Z88.5 Allergy status to narcotic agent; Z88.8 Allergy status to other drugs, medicaments and biological substances; Z91.040 Latex allergy status; Z91.041 Radiographic dye allergy status; Z91.048 Other nonmedicinal substance allergy status
CPT/HCPCS: 96365; 96361; 85025; 80048; 36415; 80076; 80307 ×8; 81003; 83690; 74022; 96375; 99284; J0456; J7050; J7030; J2405 ×2

== ENCOUNTER 2020-05-23 19:50 | Emergency (ER) | payer OTHER ==
--- OUTSIDE RECORDS SUMMARY | 2020-05-23 19:52 | XMS REPORT | Continuity of Care Document ---
:1960 Author Organization [facility] Care Team Providers Name Role Phone [facility] Unavailable Un available Problems Problem Status Onset [...] Hydrocodone Refill(s) Bitartrate 10 MG Oral Tablet [[place] 10/325] Clonazepam 2 MG 2 mg = [...] Source Systolic (mm Hg) 143 03/28/2019 [facility] [place] [facility] Diastolic (mm Hg) 82 03/28/2019 [facility] Heart Rate 53 03/28/2019 [facility] Respitory Rate 16 03/28/2019 [facility] Height 172.72 cm 03/28/2019 [facility] Weight 89.091 03/28/2019 [facility] BMI Calculated 29.86 03/28/2019 [facility] BMI Calculated 30.47 09/26/2018 [facility] Weight 90.909 09/26/2018 [facility] Height 172.72 cm 09/26/2018 [facility] Heart Rate 58 09/26/2018 [facility] Respitory Rate 16 09/26/2018 [facility] Systolic (mm Hg) 159 09/26/2018 [facility] [place] Diastolic (mm Hg) 88 09/26/2018 [facility] Encounters Location Location Encounter Encounter Reason Attending ADM [place] Stat [place] Source Details Type Number For Provider Date Date Visit MNA Outpatient [id number] [place] 09/26 09/27 [facility] [place] Outpatient [id number] P[place] 10/31 Active [facility] [place] MNA Ambulatory [id number] P[place] 10/31 10/31 [facility] Neuro [place] Outpatient [id number] Pio 03/28 [facility] [place] MNA Outpatient [id number] [place] 03/28 03/29 [facility] Neuro [place] MNA Outside [id number] 04/01 04/03 [facility] Neurology Medical /2018 Neuro [place] Records Outpatient [id number] P[place] 04/11 Active [facility] [place] MNA Ambulatory [id number] [place] 04/11 04/11 [facility] Pre[facility]Reg [facility] Neuro [place] MNA Outside [id number] 04/18 04/20 [facility] Neurology Medical Neuro [place] Records Procedures No Data Provided for This Section Assessment and Plan No Data Provided for This Section Plan of Care No Data Provided for This Section Social History Social History Date Source Social History TypeResponse 03/28/2019 [facility] o Smoking Status Former smoker; Type: Cigarettes; Exposur e to Tobacco Smoke None; Cigarette Smoking Last 365 Days No; Reg Smoking Cessation Counseling No entered on: 03/28/19 Family History No Data Provided for This Section Advance Directives No Data Provided for This Section Functional Status No Data Provided for This Section
--- OUTSIDE RECORDS SUMMARY | 2020-05-23 19:52 | XMS REPORT | Continuity of Care Document ---
:1960 Author Organization [facility] t Address [address] [place] [address] Care Team Providers Name Role Phone Theo Hernandez NP Attending Clinician Mau Armstrong Attending Clinician Problems Condition Condition Condition Status Onset Resolution Last Treating Co mments Source Name Details Category Date Date Treatment Clinician Date Hypertensi Problem Active 2019-04-22 M emoria ve 01:06:38 l disorder, [place] systemic Hypertensi arterial ve (disorder) disorder, systemic arterial (disorder) Active Problem 04/22/2019 [facility] Memory Problem Active 2019-04-22 Memor ia impairment 01:06:38 l (finding) Memory Maggy nn impairment (finding) Active Problem 04/22/2019 [facility] Neck pain Problem Active 2019-04-22 Me moria (finding) 01:06:38 l Neck [place] pain (finding) Active Problem 04/22/2019 [facility] Paresthesi Problem Active 2019-04-22 M emoria a 01:06:38 l (finding) [place] Paresthesi a (finding) Active Problem 04/22/2019 [facility] Simple Problem Active 2019-04-22 Memor ia obesity 01:06:38 l (disorder) Simple Herm jessa obesity (disorder) Active Problem 04/22/2019 [facility] Tremor Problem Active 2019-04-22 Memor ia (finding) 01:06:38 l Tremor [place] (finding) Active Problem 04/22/2019 [facility] Dizziness Problem Active 2019-04-22 Me moria (finding) 01:06:38 l [place] Dizziness (finding) Active Problem 04/22/2019 [facility] Allergies, Adverse Reactions, Alerts Allergy Allergy Status Severity Reaction(s) Onset Inactive Treating Comm ents Source Name Type Date Date Clinician Keflex Adverse [facility] rash [facility] Phenerga Adverse Active hives [facility] Bactrim Adverse Active rash [facility] Levaquin Adverse Active stops [facility] Levaquin Levaquin Active [facility] [place] Social History Smoking Status Start Date Stop Date Source Social History 2019-03-28 18:18:16 2019-03-28 18:18:16 [facility] [place] Medications Ordered Filled Start Stop [...] ermann Bitartrate 00 10 MG Oral Tablet [[place] 10/325] Clonazepam 2018- Yes 2 mg = 1 Mem oria 2 MG Oral 4-24 tab, PO, l Tablet 19:00: BID, # 60 Jun n [Klonopin] 00 tab, 0 Refill(s) Aspirin 81 Aspirin 81 2017- Yes Esthela [address] [facility] [place] [facility] Albuterol Albuterol 2015- Yes Esthela [address] [facility] Sulfate HFA Sulfate HFA 1-25 [place] [facility] Clonazepam Clonazepam Yes Esthela TAKE [address] [facility] [place] TABLET BY [facility] Carvedilol Carvedilol Yes Esthela take [address] [facility] [place] tablet by [facility] twice a l day [facility] ent Clinics Famotidine Famotidine Yes Esthela [address] [facility] [place] at bedtime [facility] Protonix Protonix Yes Esthela [address] [place] [facility] Dicyclomine Dicyclomine Yes Esthela [address] [facility] HCl HCl [place] [facility] Ventolin Ventolin Yes Esthela [address] HFA HFA [place] [facility] Valsartan Valsartan Yes Esthela [address] [facility] [place] [facility] Hydrocodone Hydrocodone Yes Esthela (Schedule [facility] -Acetaminop -Acetaminop [place] II Drug) [facility] TK 1 T PO [facility] TID l [facility] Creon Creon 2019- No Esthela take by [facility] 07[facility]21 [place] mouth 1 [facility] - 00:00 capsule 3 [facility] :00 times a l day as Outpati directed ent Clinics Vital Signs Vital Name Observation Time Observation Value Comments Source Systolic (mm Hg) 2019-03-28 18:17:00 Lucio Gordon Diastolic (mm Hg) 2019-03-28 18:17:00 Will Gordon Heart Rate 2019-03-28 18:17:00 [facility] [place] Respitory Rate 2019-03-28 18:17:00 Gricel Wright Height 2019-03-28 18:17:[address] [facility] [place] Weight 2019-03-28 18:17:00 Nona Gordon BMI Calculated 2019-03-28 18:17:00 Gricel Wright BMI Calculated 2018-09-26 18:51:00 Gricel Wright Weight 2018-09-26 18:51:00 [facility] [place] Height 2018-09-26 18:51:00 172.72 cm [facility] [place] Heart Rate 2018-09-26 18:51:00 [facility] [place] Respitory Rate 2018-09-26 18:51:00 Memneena al [place] Systolic (mm Hg) 2018-09-26 18:51:00 Lucio burch [place] Diastolic (mm Hg) 2018-09-26 18:51:00 Mem orial [place] Procedures This patient has no known procedures. Encounters Start End Encounter Admission Attending Care Care Encounter Source Date/Time Date/Time Type Type Clinicians Facility Department ID 2020-05-21 2020-05-21 [id number] 2020-05-14 2020-05-14 [facility] [id number] [facility] 2020-04-28 2020-04-28 [facility] [id number] [facility] 2020-04-16 2020-04-16 [facility] [id number] [facility] 2020-03-18 2020-03-18 Outpatient [facility] [id number] [facility] 2020-03-18 2020-03-18 [facility] [id number] [facility] 2020-03-10 2020-03-10 Outpatient [facility] [id number] [facility] 2019-07-21 2019-07-21 Emergency [facility] [id number] 18:06:23 22:09:00 Camila Layton [id number] [place] [id number] [place] [id number] 2019-07-15 2019-07-15 [facility] [id number] 15:01:00 15:01:00 t Specialty/U [facility] - Specialty rology [facility] /Urology Clinic l Clinic Outpati ent Clinics 2019-07-09 2019-07-09 [facility] [id number] 16:46:00 16:46:00 t Specialty/U Martha kes - Specialty rology Memori a /Urology Clinic l Clinic Outpati ent Clinics 2019-07-08 2019-07-08 [facility] [id number] [facility] 14:51:00 14:51:00 t Specialty/U [facility] kes - Specialty rology Memori a /Urology Clinic l Clinic Outpati ent Clinics 2019-07-08 2019-07-08 [facility] [id number] [facility] 08:00:00 08:00:00 t Specialty/U [facility] kes - Specialty rology Memori a /Urology Clinic l Clinic Outpati ent Clinics 2019-07-04 2019-07-04 [facility] [id number] 13:00:00 13:00:00 t Specialty/U [facility] kes - Specialty rology Memori a /Urology Clinic l Clinic Outpati ent Clinics 2019-07-02 2019-07-02 [facility] [id number] 14:32:00 14:32:00 t [facility] Medicine Outpati ent Clinics 2019-06-27 2019-06-27 [facility] [id number] [facility] 14:40:00 14:40:00 t [facility] Outpati ent Clinics 2019-06-03 2019-06-03 [facility] [id number] [facility] 11:17:00 11:17:00 [facility] Outpati ent Clinics 2019-04-18 2019-04-19 [facility] [id number] 12:37:59 23:59:59 2019-04-11 2019-04-11 Outpatient MARIAH Armstorng [facility]ENCE [id number] 15:30:00 15:30:00 Pio León 2019-04-09 2019-04-09 [facility] [id number] 15:20:00 15:20:00 t [facility] Medicine Outpati ent Clinics 2019-04-01 2019-04-02 [id number] 08:58:44 23:59:59 00 2019-03-28 2019-03-28 Outpatient MARIAH Armstrong [facility][1] [id number] 13:00:00 23:59:59 Pio [facility] 2019-02-19 2019-02-19 [facility] [id number] 14:40:00 14:40:00 t [facility] Medicine Outpati ent Clinics 2018-12-11 2018-12-11 [facility] [id number] [facility] 11:21:00 11:21:00 t [facility] Medicine Outpati ent Clinics 2018-11-19 2018-11-19 [facility] [id number] [facility] 14:40:00 14:40:00 t [facility] Medicine Outpati ent Clinics 2018-10-31 2018-10-31 Outpatient [id number] 13:45:00 13:45:00 Pio [facility] 2018-09-26 2018-09-26 [facility] [id number] 13:30:00 23:59:59 Pio 00 [facility] 2018-09-17 2018-09-17 [facility] [id number] [facility] 16:00:00 16:00:00 t [facility] Medicine Outpati ent Clinics 2018-08-02 2018-08-02 [facility] [id number] 16:07:00 16:07:[address] [employer] [facility] - [facility] Medicine Outpati ent Clinics 2018-08-02 2018-08-02 [facility] [id number] 16:05:00 16:05:00 t [facility]m[employer] s [facility] Medicine Outpati ent Clinics 2018-06-18 2018-06-18 [facility] [id number] [facility] 16:00:00 16:00:00 [facility] Medicine Outpati ent Clinics 2018-01-18 2018-01-18 [facility] [id number] 14:00:00 14:00:00 [facility] Medicine Outpati ent Clinics 2017-09-19 2017-09-19 [facility] [id number] 09:33:00 09:33:00 [facility] Medicine Outpati ent Clinics 2017-09-14 2017-09-14 [facility] [id number] [facility] 13:00:00 13:00:00 [facility] Medicine Outpati ent Clinics 2017-09-12 2017-09-12 [facility] [id number] [facility] 11:05:00 11:05:00 [facility] Medicine Outpati ent Clinics 2017-08-29 2017-08-29 [facility] [id number] [facility] 15:30:00 15:30:00 [facility] Medicine Outpati ent Clinics Results This patient has no known results.
--- OUTSIDE RECORDS SUMMARY | 2020-05-23 19:53 | XMS REPORT ---
:1960 Author Organization [facility] Address [address] Car[place], [place]. 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 47302295 psoriasis Problem Acute tonsillitis, J03.90 Active 88530311 unspecified etiology Problem Asymptomatic R31.21 Active 589328104 microscopic hematuria Problem Chronic fatigue R53.82 Active 41615654 Problem Cervical M47.812 Active 973010782 spondylosis without myelopathy Problem Abnormal blood R73.09 Active 490185740 sugar Problem Acute upper J06.9 Active 74383269 respiratory infection Problem Chronic pain G89.4 Active 538031029 syndrome Problem Gastro-esophageal K21.9 Active 637694906 reflux disease without esophagitis Problem Generalized anxiety F41.1 Active 82714441 disorder Problem Essential (primary) I10 Active 78792161 hypertension Problem Post-traumatic F43.10 Active 77737966 stress disorder Problem Hyperglycemia R73.9 Active 75635511 Problem Essential I10 Active 38312162 hypertension Problem BMI 29.0-29.9,adult Z68.29 Active 67185628 Problem Wheezing R06.2 Active 17089538 Problem Constipation, K59.00 Active 86644051 unspecified constipation type Problem 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 hives Drug Allergy Active Code:[address]- 01) cephalexin Keflex([facility] rash Drug Allergy Active Code:[address]- 01) sulfamethoxazole / Bactrim DS([facility] rash Drug Allergy Active trimethoprim Code:[address]- 01) Levaquin stops breathing Drug Allergy Active eggs Rash Non Drug Active Allergy ENCOUNTERS from 1960 to 2020-05-21 Encounter Location Date Provider Diagnosis [facility] [address] [facility] [address], [place] [address] IMMUNIZATIONS No Information SOCIAL HISTORY Tobacco Use: [...] No information MEDICATIONS Medication SIG (Take, Route, Notes Start Date End Date Status Frequency, Duration) Clonazepam 1 MG 1 tablet Orally BID Active PRN SEVERE ANXIETY for 30 days OneTouch Delica Plus USE ONCE A DAY R73.09 Active Yxagdx52G - for 90 Creon 56116-73845 take by mouth 1 Ac tive UNIT capsule 3 times a day as directed Orally 1 tab with each meal for 90 days OneTouch Ultra - USE ONCE A DAY R73.09 Active for 90 Carvedilol 25 MG take 1 tablet by Ac tive mouth twice a day Orally BID for 90 days Lactulose 10 GM/15ML 15 ml Orally BID PRN Active CONSTIPATION Dicyclomine HCl 20 MG 1 tablet Orally Four Not-Taking times a day for 30 day(s) Famotidine 20 MG 1 tablet at bedtime Active Orally every 12 hrs Doxycycline Hyclate 1 capsule Orally May, May, Active 100 MG Twice a day for 10 day(s) Hydrocodone-Acetamino (Schedule II Drug) TK Active phen 10-325 MG 1 T PO TID Oral for 28 Albuterol Sulfate HFA 1 puff Inhalation Apr, Active 108 (90 Base) MCG/ACT every 6 hrs Ventolin HFA 108 (90 2 puffs Inhalation Active Base) MCG/ACT every 6 hrs PRN for 90 days Protonix 40 MG 1 tablet Orally Once Active a day for 90 days Aspirin 81 81 MG 1 tablet Orally Once Sep, Not-Taking a day PROCEDURES No Information RESULTS No Results REASON FOR VISIT DI Request MEDICAL (GENERAL) HISTORY Type Description Date Medical [...] Medication Name Sig Start Date Stop Date Creon 76074-70209 UNIT take by mouth 1 capsule 3 times a day as directed Orally 1 tab with each meal for 90 days Carvedilol 25 MG take 1 tablet by mouth twice a day Orally BID for 90 days Clonazepam 1 MG 1 tablet Orally BID PRN SEVERE ANXIETY for 30 days Protonix 40 MG 1 tablet Orally Once a day for 90 days Doxycycline Hyclate 100 MG 1 capsule Orally Twice a day for 17 D 2019May, 10 day(s) Lactulose 10 GM/15ML 15 ml Orally BID PRN CONSTIPATION Insurance Providers Payer Name Payer Address Payer Insured Patient Coverage Cover age Phone Name Relationship to Start Date End Date Insured [employer] [address] [address] [phone] Alfred Escobar self [place] [address] [address] [facility] [address] [phone] Alfred Escobar [place] [address] [address] MEDICARE Attn Part B [id number] Alfred Escobar [employer] Claims [address] [facility] [address]
--- OUTSIDE RECORDS SUMMARY | 2020-05-23 19:53 | XMS REPORT ---
:[address] [facility] Address [address] [place], [place]. 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 Active 40195239 psoriasis Problem Acute tonsillitis, J03.90 Active 40627395 unspecified etiology Problem Asymptomatic R31.21 Active 294418416 microscopic hematuria Problem Chronic fatigue R53.82 Active 24265097 Problem Cervical M47.812 Active 834948559 spondylosis without myelopathy Problem Abnormal blood R73.09 Active 874489105 sugar Problem Acute upper J06.9 Active 90233932 respiratory infection Problem Chronic pain G89.4 Active 132924255 syndrome Problem Gastro-esophageal K21.9 Active 535082880 reflux disease without esophagitis Problem Generalized anxiety F41.1 Active 23894654 disorder Problem Essential (primary) I10 Active 54481986 hypertension Problem Post-traumatic F43.10 Active 22846166 stress disorder Problem Hyperglycemia R73.9 Active 62888559 Problem Essential I10 Active 05940380 hypertension Problem BMI 29.0-29.9,adult Z68.29 Active 11846755 Problem Wheezing R06.2 Active 47847425 Problem Constipation, K59.00 Active 73362761 unspecified constipation type Problem 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 9228960848809 4 cataplexy Problem Diverticulosis K57.90 Active 062187545 Problem Other chronic K86.1 Active 689244075 pancreatitis Problem Disc disorder M51.9 Active 80848585 Problem Nausea R11.0 Active 419574954 Problem Panic disorder with F40.01 Active 98162376 agoraphobia Problem Hospital discharge Z09 Active 488514609 follow-up Problem 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 Active 000142547 obs/LUTS ALLERGIES Allergen (clinical drug Drug/Non Drug Reaction Allergy Type Onset D ate Status ingredient) Allergy documented on EMR promethazine Phenergan([facility] hives Drug Allergy Active Code:[address]- 01) cephalexin Keflex([facility] rash Drug Allergy Active Code:[address]- 01) sulfamethoxazole / Bactrim DS([facility] rash Drug Allergy Active trimethoprim Code:[address]- 01) Levaquin stops breathing Drug Allergy Active eggs Rash Non Drug Active Allergy ENCOUNTERS from 1960 to 2020-04-28 Encounter Location Date Provider Diagnosis [facility] [address] [facility] [address], [place] [address] IMMUNIZATIONS No Information SOCIAL HISTORY Tobacco Use: [...] at bedtime Active Orally every 12 hrs OneTouch Ultra - USE ONCE A DAY R73.09 Active for 90 Clonazepam 1 MG 1 tablet Orally BID PRN Active SEVERE ANXIETY for 30 days Protonix 40 MG 1 tablet Orally Once a Active day for 90 days Lactulose 10 GM/15ML 15 ml Orally BID PRN 12 Apr, 2020 Active CONSTIPATION Dicyclomine HCl 20 MG 1 tablet Orally Four Not-Taking times a day for 30 day(s) Hydrocodone-Acetaminoph (Schedule II Drug) TK 1 Active en 10-325 MG T PO TID Oral for 28 Ventolin HFA 108 (90 2 puffs Inhalation Active Base) MCG/ACT every 6 hrs PRN for 90 days Creon 17272-60996 UNIT take by mouth 1 capsule Active 3 times a day as directed Orally 1 tab with each meal for 90 days Aspirin 81 81 MG 1 tablet Orally Once a 12 Sep, 2016 Not-Taking day Carvedilol 25 MG take 1 tablet by mouth Active twice a day Orally BID for 90 days Albuterol Sulfate HFA 1 puff Inhalation every 25 Apr, 2015 Active 108 (90 Base) MCG/ACT 6 hrs OneTouch Delica Plus USE ONCE A DAY R73.09 Active Xnxuxc84P - for 90 PROCEDURES No Information RESULTS No Results REASON FOR VISIT ED nausea MEDICAL (GENERAL) HISTORY Type Description Date Medical [...] Once a day for 90 days Creon 24128-67519 UNIT take by mouth 1 capsule 3 times a day as directed Orally 1 tab with each meal for 90 days Next Appt Details Provider Name:[facility] Jenkins, 2020-05-14 0 2:40:00 PM, [address], [address], [place], [address], Insurance Providers Payer Name Payer Address Payer Insured Patient Coverage Cover age Phone Name Relationship to Start Date End Date Insured MEDICARE Attn Part B [id number] Alfred Escobar [employer] Claims [address] [facility] [address] [facility] [address] [address] [phone] Alfred Escobar [facility] [place] [address] [address] [facility] [address] [phone] Alfred Escobar self [facility] [address] [address]
--- OUTSIDE RECORDS SUMMARY | 2020-05-23 19:54 | XMS REPORT ---
:1960 Author Organization [facility] Address [address] [place], [place]. 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 Active 50768193 psoriasis Problem Acute tonsillitis, J03.90 Active 77095198 unspecified etiology Problem Asymptomatic R31.21 Active 658363945 microscopic hematuria Problem Chronic fatigue R53.82 Active 53313647 Problem Cervical M47.812 Active 268643016 spondylosis without myelopathy Problem Abnormal blood R73.09 Active 640695339 sugar Problem Acute upper J06.9 Active 84937738 respiratory infection Problem Chronic pain G89.4 Active 873012549 syndrome Problem Gastro-esophageal K21.9 Active 668734548 reflux disease without esophagitis Problem Generalized anxiety F41.1 Active 45981402 disorder Problem Essential (primary) I10 Active 21879299 hypertension Problem Post-traumatic F43.10 Active 39822083 stress disorder Problem Hyperglycemia R73.9 Active 95248222 Problem Essential I10 Active 00217043 hypertension Problem BMI 29.0-29.9,adult Z68.29 Active 79009785 Problem Wheezing R06.2 Active 96626848 Problem Constipation, K59.00 Active 07604075 unspecified constipation type Problem 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 1470830672784 4 cataplexy Problem Diverticulosis K57.90 Active 914619146 Problem Other chronic K86.1 Active 225921947 pancreatitis Problem Disc disorder M51.9 Active 43253361 Problem Nausea R11.0 Active 308210506 Problem Panic disorder with F40.01 Active 37590598 agoraphobia Problem Hospital discharge Z09 Active 859888472 follow-up Problem 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 Active 003048409 obs/LUTS ALLERGIES Allergen (clinical drug Drug/Non Drug Reaction Allergy Type Onset D ate Status ingredient) Allergy documented on EMR promethazine Phenergan([facility] hives Drug Allergy Active Code:[address]- 01) cephalexin Keflex([facility] rash Drug Allergy Active Code:[address]- 01) sulfamethoxazole / Bactrim DS([facility] rash Drug Allergy Active trimethoprim Code:[address]- 01) Levaquin stops breathing Drug Allergy Active eggs Rash Non Drug Active Allergy ENCOUNTERS from 1960 to 2020-05-21 Encounter Location Date Provider Diagnosis [facility] [address], [facility] Crohn''s disease without Drive Family [address], [place] [address] unspecified gastrointestina l tract location K50.90 ; Cellulitis of f clementina L03.211 ; Dizzi ness R42 ; Generalized a nxiety disorder F41.1 ; Post-traumatic stress disorder F43.10 [...] No Information VITAL SIGNS Height 70 in May, Weight 180.3 lbs May, Temperature 97.1 degrees Fahrenheit May, BMI 25.87 kg/m2 May, Oximetry 97 % May, Respiratory Rate 17 /min May, Blood pressure systolic 124 mm Hg May, Blood pressure diastolic 67 mm Hg May, MEDICATIONS Medication SIG (Take, Route, Notes Start Date End Date Status Frequency, Duration) Clonazepam 1 MG 1 tablet Orally BID Active PRN SEVERE ANXIETY for 30 days OneTouch Delica Plus USE ONCE A DAY R73.09 Active [id number] - for Creon 23566-31969 take by mouth 1 Ac tive UNIT [...] 28 Albuterol Sulfate HFA 1 puff Inhalation 25 Apr, 2015 Active 108 (90 Base) MCG/ACT every 6 hrs Ventolin HFA 108 (90 2 puffs Inhalation Active Base) MCG/ACT every 6 hrs PRN for 90 days Protonix 40 MG 1 tablet Orally Once Active a day for 90 days Aspirin 81 81 MG 1 tablet Orally Once Sep, Not-Taking a day PROCEDURES No Information RESULTS No Results REASON FOR VISIT rash and neck pain MEDICAL (GENERAL) HISTORY Type Description Date Medical [...] STATUS No Information ASSESSMENTS Encounter Date Diagnosis Assessment Treatment Notes Treatment Notes Clinical Notes May, Crohn''s disease Managed by GI. without complication, Education given. unspecified gastrointestinal tract location (ICD-10 - K50.90) May, Cellulitis of face Discussed (ICD-10 - L03.211) differential diagnosis extensively with patient peer education given. Due to the nature of symptoms and duration concern for allergic dermatitis versus cellulitis. Will treat with doxycycline for 10 days. Allergic to Keflex, Bactrim. Sativa panel discussed extensively. Education given. Proper care discussed. Discussed supportive measures for symptomatic relief. Monitor vitals and symptoms closely. Advised on signs and symptoms monitor when to visit the nearest ED.. May, Dizziness (ICD-10 - . Discussed R42) differential diagnosis with patient. Education given. Will obtain bilateral carotid ultrasounds for further evaluation. Chronic in nature. May, Generalized anxiety -- Anxiety disorder (ICD-10 - Education: Anxiety F41.1) is a feeling of anxiousness or nervousness. Being extremely anxious or worried on most days for 6 months or longer is not normal. This is a type of anxiety disorder. This disorder can make it hard to do everyday tasks. Other types of anxiety include: post traumatic stress disorder, panic disorder, and phobias. Symptoms of anxiety may include: feeling worried or on the edge, trouble sleeping, or forgetting things. Feelings of stomach aches or chest tightness is another common symptom. Medicine, exercise, and other treatments like counseling, talk therapy, yoga, and massages maybe necessary to treat this disorder. May, Post-traumatic stress disorder (ICD-10 - F43.10) May, Essential (primary) Cont current hypertension (ICD-10 regimen. DASH Diet - I10) discussed. Instructed to measure BP at home and bring in log to f/u appt. Instructions and logs given. Education given. HTN Education This is a condition that puts at risk for heart attack, stroke, and kidney disease. Lifestyle modification, low fat/low salt diet, exercise, low alcohol intake and medication is utilized to help control your BP. Untreated HTN increases the strain on the heart and arteries, eventually causing organ damage.Normal BP is less than 140/90. High BP is greater than 140/90. If your BP is not controlled, call your doctor. Medication may need to be adjusted and/or added. Compliance with medication is vital. If you have chest pain, shortness of breath, severe nausea/vomiting, fatigue, and other symptoms, you will need to contact your doctor or go to the ER immediately to address. May, Cervical spondylosis Managed by pain without myelopathy management. (ICD-10 - M47.812) May, Chronic pain syndrome Managed by PNM. (ICD-10 - G89.4) May, Gastro-esophageal We have discussed reflux disease the pathophysiology without esophagitis of reflux disease (ICD-10 - K21.9) and we discussed lifestyle modifications to avoid reflux that include elevation head of the bed, avoid alcohol, avoid caffeine, avoid maintenance, avoid tight clothing, avoid eating within 3-4 hours before bedtime, and avoiding smoking. May, Chronic fatigue (ICD-10 - R53.82) May, Panic disorder with Discussed agoraphobia (ICD-10 - differential F40.01) diagnosis extensively patient. Education given. Minimal relief with [...] and quantity of benzodiazepine. Patient vocalized understanding. May, BPH loc w/o ur .Stable. Education obs/LUTS (ICD-10 - given. N40.0) May, Diverticulosis (ICD-10 - K57.90) May, Other -- Medication reviewed and updated. -- Dietary and Lifestyle modifications addressed regarding diet, exercise and weight managemen t. -- Treatment options, risks and benefits, side effects reviewed in detail. -- Advised on signs/symptoms to monitor and when to call clinic and/or visit the nearest ER. Patient verbalized understanding and agreeable with plan. PLAN OF TREATMENT Medication Medication Name Sig Start Date Stop Date Creon 94748-28923 UNIT take by mouth 1 capsule 3 [...] GM/15ML 15 ml Orally BID PRN CONSTIPATION Treatment Notes Assessment Notes Clinical Notes Crohn''s disease without Managed by GI. Education given. complication, unspecified gastrointestinal tract location Cellulitis of face Discussed differential diagnosis extensively with patient peer education given. Due to the nature of symptoms and duration concern for allergic dermatitis versus cellulitis. Will treat with doxycycline for 10 days. Allergic to Keflex, Bactrim. Sativa panel discussed extensively. Education given. Proper care discussed. Discussed supportive measures for symptomatic relief. Monitor vitals and symptoms closely. Advised on signs and symptoms monitor when to visit the nearest ED.. Dizziness . Discussed differential diagnosis with patient. Education given. Will obtain bilateral carotid ultrasounds for further evaluation. Chronic in nature. Generalized anxiety disorder -- Anxiety Education: Anxiety [...] loc w/o ur obs/LUTS .Stable. Education given. Treatment Notes Test Name Order Date Carotid Artery Bilateral 2020-05-21 Next Appt Details prn Reason: Insurance Providers Payer Name Payer Address Payer Insured Patient Coverage Cover age Phone Name Relationship to Start Date End Date Insured [employer] [address] [address] [phone] Alfred Escobar [facility] [place] [address] [address] [facility] [address] [phone] Alfred Escobar [place] [address] [address] MEDICARE Attn Part B [id number] Alfred Escobar [employer] Claims [address] [facility] [address]
[2020-05-23 21:15] LABS: Absolute Lymphocytes (CBC) 2.3 K/uL (0.7-4.9); Basophils % 0.4 % (0-1.3); Hematocrit 43.6 % (39.6-49.0); Lymphocytes % 32.7 % (15.3-44.8); RBC Red Blood Cell Count 4.87 M/uL (4.33-5.43)
[2020-05-23 21:31] LABS: Bilirubin Direct 0.2 mg/dL (0-0.2); Bilirubin Total 0.6 mg/dL (0.2-1.0); Potassium 4.6 mmol/L (3.5-5.1); Protein, Total 7.1 g/dL (6.4-8.2)
[2020-05-23 21:32] LABS: Albumin 3.7 g/dL (3.4-5.0)
--- NOTE | 2020-05-23 22:23 | ER ---
Nurse's Notes [facility] Name: Alfredo Escobar Age: 59 yrs Sex: Male : 1960 Arrival Date: 05/23/2020 Time: 19:55 Bed 16 Private MD: Diagnosis: Dermatitis, unspecified;Cellulitis of face Presentation: 05/23 20:02 Chief complaint: Patient states: Rash, redness, swelling for 10 days to facial area ll1 (under mask area). Low grade fever. Sent by Dr. Jenkins. Coronavirus screen: Client denies travel out of the [place] in the last 14 days. At this time, the client does not indicate any symptoms associated with coronavirus-19. Ebola Screen: Patient denies travel to an Ebola-affected area in the 21 days before illness onset. Initial Sepsis Screen: Does the patient meet any 2 criteria? No. Patient's initial sepsis screen is negative. Does the patient have a suspected source of infection? Yes: Skin breakdown/wound. Risk Assessment: Do you want to hurt yourself or someone else? Patient reports no desire to harm self or others. Onset of symptoms was May 13, 2020. 20:02 Method Of Arrival: Ambulatory ll1 20:02 Acuity: BUCKY 3 ll1 Historical: - Allergies: 20:06 Levaquin; ll1 20:06 Latex, Natural Rubber; ll1 20:06 Keflex; ll1 20:06 Iodine; ll1 20:06 Iodinated Contrast Media - IV Dye; ll1 20:06 Bactrim; ll1 20:06 promethazine HCl; ll1 20:06 Toradol; ll1 - PMHx: 20:06 Anxiety; GERD; Crohn's; Arthritis; Pancreatitis; PTSD; ll1 - Immunization history:: Flu vaccine is not up to date. - Social history:: Smoking status: Patient denies any tobacco usage or history of. Screenin:30 Abuse screen: Denies threats or abuse. Denies injuries from another. Nutritional rr5 screening: No deficits noted. Tuberculosis screening: No symptoms or risk factors identified. Fall Risk IV access (20 points). Total Preciado Fall Scale indicates No Risk (0-24 pts). Assessment: 20:40 General: Appears in no apparent distress. uncomfortable, Behavior is calm, cooperative, rr5 appropriate for age. 20:40 Pain: Complains of pain in nose and mouth. Neuro: Level of Consciousness is awake, rr5 alert, obeys commands, Oriented to person, place, time. Cardiovascular: Capillary refill < 3 seconds Patient's skin is warm and dry. Respiratory: Airway is patent Respiratory effort is even, unlabored, Respiratory pattern is regular, symmetrical. GI: No signs and/or symptoms were reported involving the gastrointestinal system. : No signs and/or symptoms were reported regarding the genitourinary system. EENT: No signs and/or symptoms were reported regarding the EENT system. Derm: Skin temperature is warm Rash noted that is itchy, red, urticaria, on nose and mouth. Musculoskeletal: Capillary refill < 3 seconds, is brisk. 22:00 Reassessment: Patient appears in no apparent distress at this time. Patient is alert, rr5 oriented x 3, equal unlabored respirations, skin warm/dry/pink. awaiting for results. 22:50 Reassessment: Patient appears in no apparent distress at this time. Patient is alert, rr5 oriented x 3, equal unlabored respirations, skin warm/dry/pink. discharge instruction given and explained without complaints made. Vital Signs: 20:02 BP 145 / 89; Pulse 67; Resp 17; Temp 99.3; Pulse Ox 100% ; Height 5 ft. 10 in. (177.80 ll1 cm); Pain 5/10; 20:02 Weight 78.47 kg; ll1 22:40 BP 141 / 70; Pulse 69; Resp 16; Pulse Ox 99% ; rr5 ED Course: 19:55 Patient arrived in ED. ag3 20:05 Triage completed. ll1 20:06 Arm band placed on. ll1 20:22 Theodore Vyas MD is Attending Physician. mh7 20:37 Grover De La Rosa RN is Primary Nurse. rr5 21:04 Warm blanket given. Verbal reassurance given. Pulse ox on. NIBP on. jp3 21:04 Inserted saline lock: 20 gauge in right antecubital area, using aseptic technique. jp3 Blood collected. Patient maintains SpO2 saturation greater than 95% on room air. 22:21 Alvaro Williamson MD is Referral Physician. mh7 22:50 Patient has correct armband on for positive identification. Bed in low position. rr5 22:50 No provider procedures requiring assistance completed. IV discontinued, intact, rr5 bleeding controlled, No redness/swelling at site. Pressure dressing applied. Administered Medications: No medications were administered Outcome: 22:22 Discharge ordered by . mh7 22:50 Discharged to home ambulatory. rr5 22:50 Condition: stable 22:50 Discharge instructions given to patient, Instructed on discharge instructions, follow up and referral plans. medication usage, Demonstrated understanding of instructions, follow-up care, medications, Prescriptions given X 2. 22:55 Patient left the ED. rr5 Signatures: Nicolas Andino jp3 Dorene Abdul Raymond RN RN rr5 Dominga Gamez RN RN ll1 Theodore Vyas MD MD 7 Corrections: (The following items were deleted from the chart) 23:14 22:50 Discharge instructions given to patient, Instructed on discharge instructions, rr5 follow up and referral plans. medication usage, Demonstrated understanding of instructions, follow-up care, medications, Prescriptions given X 1, rr5
--- NOTE | 2020-05-23 22:23 | EDPHYS ---
Physician Documentation [facility] Name: Alfredo Escobar Age: 59 yrs Sex: Male : 1960 Arrival Date: 05/23/2020 Time: 19:55 Bed 16 Private MD: ED Physician Theodore Vyas HPI: 05/23 20:54 This 59 yrs old Male presents to ER via Ambulatory with complaints of Rash. mh7 20:54 The patient's rash thought to be caused by an unknown cause. The rash is located on the mh7 face. The rash can be described as erythematous, flat. Onset: The symptoms/episode began/occurred 10 day(s) ago. Associated signs and symptoms: Pertinent positives: fever, itching, 99 degrees, Pertinent negatives: burning sensation, difficulty breathing, nausea, Pain swelling of lips, swelling of throat, swelling of tongue, vomiting, wheezing. Severity of symptoms: At their worst the symptoms were moderate 5 day(s) ago, in the emergency department the symptoms are unchanged. Treatment given at home: Calcipotriene cream. Historical: - Allergies: 20:06 Levaquin; ll1 20:06 Latex, Natural Rubber; ll1 20:06 Keflex; ll1 20:06 Iodine; ll1 20:06 Iodinated Contrast Media - IV Dye; ll1 20:06 Bactrim; ll1 20:06 promethazine HCl; ll1 20:06 Toradol; ll1 - PMHx: 20:06 Anxiety; GERD; Crohn's; Arthritis; Pancreatitis; PTSD; ll1 - Immunization history:: Flu vaccine is not up to date. - Social history:: Smoking status: Patient denies any tobacco usage or history of. ROS: 21:05 Eyes: Negative for injury, pain, redness, and discharge, ENT: Negative for injury, mh7 pain, and discharge, Neck: Negative for injury, pain, and swelling, Cardiovascular: Negative for chest pain, palpitations, and edema, Respiratory: Negative for shortness of breath, cough, wheezing, and pleuritic chest pain, Abdomen/GI: Negative for abdominal pain, nausea, vomiting, diarrhea, and constipation, Back: Negative for injury and pain, : Negative for injury, bleeding, discharge, and swelling, MS/Extremity: Negative for injury and deformity, Neuro: Negative for headache, weakness, numbness, tingling, and seizure, Psych: Negative for depression, anxiety, suicide ideation, homicidal ideation, and hallucinations, Allergy/Immunology: Negative for hives, rash, and allergies, Endocrine: Negative for neck swelling, polydipsia, polyuria, polyphagia, and marked weight changes, Hematologic/Lymphatic: Negative for swollen nodes, abnormal bleeding, and unusual bruising. Exam: 21:05 Constitutional: This is a well developed, well nourished patient who is awake, alert, mh7 and in no acute distress. 21:05 Eyes: Pupils equal round and reactive to light, extra-ocular motions intact. Lids and lashes normal. Conjunctiva and sclera are non-icteric and not injected. Cornea within normal limits. Periorbital areas with no swelling, redness, or edema. ENT: Nares patent. No nasal discharge, no septal abnormalities noted. Tympanic membranes are normal and external auditory canals are clear. Oropharynx with no redness, swelling, or masses, exudates, or evidence of obstruction, uvula midline. Mucous membranes moist. Neck: Trachea midline, no thyromegaly or masses palpated, and no cervical lymphadenopathy. Supple, full range of motion without nuchal rigidity, or vertebral point tenderness. No Meningismus. Chest/axilla: Normal chest wall appearance and motion. Nontender with no deformity. No lesions are appreciated. Cardiovascular: Regular rate and rhythm with a normal S1 and S2. No gallops, murmurs, or rubs. Normal PMI, no JVD. No pulse deficits. Respiratory: Lungs have equal breath sounds bilaterally, clear to auscultation and percussion. No rales, rhonchi or wheezes noted. No increased work of breathing, no retractions or nasal flaring. Abdomen/GI: Soft, non-tender, with normal bowel sounds. No distension or tympany. No guarding or rebound. No evidence of tenderness throughout. Back: No spinal tenderness. No costovertebral tenderness. Full range of motion. 21:05 MS/ Extremity: Pulses equal, no cyanosis. Neurovascular intact. Full, normal range of motion. Neuro: Awake and alert, GCS 15, oriented to person, place, time, and situation. Cranial nerves II-XII grossly intact. Motor strength 5/5 in all extremities. Sensory grossly intact. Cerebellar exam normal. Normal gait. Psych: Awake, alert, with orientation to person, place and time. Behavior, mood, and affect are within normal limits. 21:05 Head/face: Noted is rash, that is erythematous. Vital Signs: 20:02 BP 145 / 89; Pulse 67; Resp 17; Temp 99.3; Pulse Ox 100% ; Height 5 ft. 10 in. (177.80 ll1 cm); Pain 5/10; 20:02 Weight 78.47 kg; ll1 22:40 BP 141 / 70; Pulse 69; Resp 16; Pulse Ox 99% ; rr5 MDM: 22:20 Differential diagnosis: impetigo, allergic reaction, Contact Dermatitis, Cellulitis. [facility] Data reviewed: vital signs, nurses notes, lab test result(s), CBC, electrolytes. Data interpreted: Pulse oximetry: on room air is 100 %. Interpretation: normal. Counseling: I had a detailed discussion with the patient and/or guardian regarding: the historical points, exam findings, and any diagnostic results supporting the discharge/admit diagnosis, the presence of at least one elevated blood pressure reading (>120/80) during this emergency department visit, lab results, the need for outpatient follow up, a donkey doctor, to return to the emergency department if symptoms worsen or persist or if there are any questions or concerns that arise at home. Response to treatment: the patient's symptoms have mildly improved after treatment. 22:22 Patient medically screened. [facility] 05/23 20:45 Order name: CBC with Diff; Complete Time: 22:01 [facility] 05/23 20:45 Order name: Basic Metabolic Panel; Complete Time: 22:01 [facility] 05/23 20:45 Order name: LFT's; Complete Time: 22:01 [facility] 05/23 20:45 Order name: Saline Lock; Complete Time: 21:04 [facility] Administered Medications: No medications were administered Disposition: 05/23/20 22:22 Discharged to Home. Impression: Dermatitis, unspecified, Cellulitis of face. - Condition is Stable. - Discharge Instructions: Cellulitis, Adult, Contact Dermatitis, [id number]. - Prescriptions for Clindamycin HCl 300 mg Oral Capsule - take 1 capsule by ORAL route every 8 hours for 7 days; 21 capsule. Hydrocortisone 0.5 % Topical Cream - apply 1 application by TOPICAL route every 12 hours As needed; 30 gram. - Medication Reconciliation Form, Thank You Letter, Antibiotic Education, Prescription Opioid Use form. - Follow up: Alvaro Williamson MD; When: 1 - 2 days; Reason: Worsening of condition, Recheck today's complaints. Follow up: Private Physician; When: 1 - 2 days; Reason: Worsening of condition, Recheck today's complaints, Continuance of care, Re-evaluation by your physician. - Problem is new. - Symptoms have improved. Signatures: Dispatcher [employer] [facility] Grover De La Rosa RN RN rr5 Dominga Gamez RN RN ll1 Theodore Vyas MD MD mh7 Corrections: (The following items were deleted from the chart) 22:55 22:22 05/23/2020 22:22 Discharged to Home. Impression: Dermatitis, unspecified; rr5 Cellulitis of face. Condition is Stable. Forms are Medication Reconciliation Form, Thank You Letter, Antibiotic Education, Prescription Opioid Use. Follow up: Alvaro Williamson; When: 1 - 2 days; Reason: Worsening of condition, Recheck today's complaints. Follow up: Private Physician; When: 1 - 2 days; Reason: Worsening of condition, Recheck today's complaints, Continuance of care, Re-evaluation by your physician. Problem is new. Symptoms have improved. mh7
[2020-05-26 04:15] VITALS: BP 145/89; TEMP 99.3; O2SAT 100
== END 2020-05-23 22:55 | disposition home or self-care (01) ==
LOC: ER 19:50
DX: L03.211 Cellulitis of face (principal); L30.9 Dermatitis, unspecified; Z88.1 Allergy status to other antibiotic agents; Z88.5 Allergy status to narcotic agent; Z88.8 Allergy status to other drugs, medicaments and biological substances; Z91.040 Latex allergy status; Z91.041 Radiographic dye allergy status
CPT/HCPCS: 36415; 80048; 80076; 85025; 99284

== ENCOUNTER 2020-06-30 23:17 | Emergency (ER) | payer OTHER ==
--- OUTSIDE RECORDS SUMMARY | 2020-06-30 23:19 | XMS REPORT | Continuity of Care Document ---
:1960 Author Organization [email or web address] Care Team Providers Name Role Phone [email or web address] Unavailable Un available Problems Problem Status Onset [...] Hydrocodone Refill(s) Bitartrate 10 MG Oral Tablet [[place] 10/325] Clonazepam 2 MG 2 mg = [...] Comments Source Systolic (mm Hg) 143 03/28/2019 [facility] Penny ro Diastolic (mm Hg) 82 03/28/2019 [facility] Ne uro Heart Rate 53 03/28/2019 [facility] Neuro Respitory Rate 16 03/28/2019 [facility] Neuro Height 172.72 cm 03/28/2019 [facility] Neuro Weight 89.091 03/28/2019 [facility] Neuro BMI Calculated 29.86 03/28/2019 [facility] Neuro BMI Calculated 30.47 09/26/2018 [facility] Neuro Weight 90.909 09/26/2018 [facility] Neuro Height 172.72 cm 09/26/2018 [facility] Neuro Heart Rate 58 09/26/2018 [facility] Neuro Respitory Rate 16 09/26/2018 [facility] Neuro Systolic (mm Hg) 159 09/26/2018 [facility] Penny ro Diastolic (mm Hg) 88 09/26/2018 [facility] Ne uro Encounters Location Location Encounter Encounter Reason Attending ADM ME Stat us Source Details Type Number For Provider Date Date Visit MNA Outpatient [id number] [place] 09/26 09/27 [facility] Neurology [facility] Neuro [facility] Outpatient [id number] [place] 10/31 Active [facility] MNA Ambulatory [id number] [place] 10/31 10/31 [facility] Neurology Pre-Reg [facility] Neuro Baker Outpatient [id number] [place] 03/28 [facility] MNA Outpatient [id number] P[place] 03/28 03/29 [facility] Neurology [facility] Neuro Baker MNA Outside [id number] 04/01 04/03 [facility] Neurology Medical Neuro Baker Records Outpatient [id number] [place] 04/11 Active [facility] [place] MNA Ambulatory [id number] [place] 04/11 04/11 [facility] Neurology Pre-Reg [facility] Neuro Baker MNA Outside [id number] 04/18 04/20 [facility] Neurology Medical /2018 Neuro Baker Records Procedures No Data Provided for This Section Assessment and Plan No Data Provided for This Section Plan of Care No Data Provided for This Section Social History Social History Date Source Social History TypeResponse 03/28/2019 [facility] Neur o Smoking Status Former smoker; Type: Cigarettes; Exposur e to Tobacco Smoke None; Cigarette Smoking Last 365 Days No; Reg Smoking Cessation Counseling No entered on: 03/28/19 Family History No Data Provided for This Section Advance Directives No Data Provided for This Section Functional Status No Data Provided for This Section
--- OUTSIDE RECORDS SUMMARY | 2020-06-30 23:20 | XMS REPORT ---
:1960 Author Organization [facility] Address [address] [place], [address] [place] [address] Care Team Providers Name Role Phone Jenkins Unavailable [phone] PROBLEMS Type Condition ICD9-CM BES65-CH Onset Condition SNOMED Code Notes Code Code Dates Status Problem Crohn''s disease K50.90 Active 04237943 without complication, unspecified gastrointestinal tract location Problem Encounter for Z71.9 Active 951988269 counseling Problem Lumbar sprain, S33.5XXA Active 333158509 initial encounter Problem Arthropathic L40.50 Active 31335697 psoriasis Problem Acute tonsillitis, J03.90 Active 20637373 unspecified etiology Problem Asymptomatic R31.21 Active 154460023 microscopic hematuria Problem Chronic fatigue R53.82 Active 01429530 Problem Cervical M47.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 366833726 spondylosis without myelopathy Problem Abnormal blood R73.09 Active 191469890 sugar Problem Acute upper J06.9 Active 76340876 respiratory infection Problem Chronic pain G89.4 Active 191698476 syndrome Problem Gastro-esophageal K21.9 Active 066583001 reflux disease without esophagitis Problem Generalized anxiety F41.1 Active 62634528 disorder Problem Essential (primary) I10 Active 97811961 hypertension Problem Post-traumatic F43.10 Active 15433815 stress disorder Problem Hyperglycemia R73.9 Active 47855697 Problem Essential I10 Active 24473630 hypertension Problem BMI 29.0-29.9,adult Z68.29 Active 57053647 Problem Wheezing R06.2 Active 88894953 Problem Constipation, K59.00 Active 04254928 unspecified constipation type Problem 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 7145778256556 4 cataplexy Problem Diverticulosis K57.90 Active 461260613 Problem Other chronic K86.1 Active 048976061 pancreatitis Problem Disc disorder M51.9 Active 39342220 Problem Nausea R11.0 Active 424079027 Problem Panic disorder with F40.01 Active 71485544 agoraphobia Problem Hospital discharge Z09 Active 532157612 follow-up Problem 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 Active 266939629 obs/LUTS ALLERGIES Allergen (clinical drug Drug/Non Drug Reaction Allergy Type Onset D ate Status ingredient) Allergy documented on EMR promethazine Phenergan([facility] hives Drug Allergy Active Code:[address]- 01) cephalexin Keflex([facility] rash Drug Allergy Active Code:[address]- 01) sulfamethoxazole / Bactrim DS([facility] rash Drug Allergy Active trimethoprim Code:[address]- 01) Levaquin stops breathing Drug Allergy Active eggs Rash Non Drug Active Allergy ENCOUNTERS from 1960 to 2020-06-09 Encounter Location Date Provider Diagnosis [facility] [address] [facility], [place] [address] IMMUNIZATIONS No Information SOCIAL HISTORY Tobacco Use: [...] PRN Active SEVERE ANXIETY for 30 days OneTouch Delica Plus USE ONCE A DAY R73.09 Active [id number] - for 90 Creon 21587-65333 UNIT take by mouth 1 capsule Active [...] at bedtime Active Orally every 12 hrs Aspirin 81 81 MG 1 tablet Orally Once a 12 Sep, 2016 Not-Taking day Hydrocodone-Acetaminoph (Schedule II Drug) TK 1 Active en 10-325 MG T PO TID Oral for 28 Albuterol Sulfate HFA 1 puff Inhalation every 25 Apr, 2015 Active 108 (90 Base) MCG/ACT 6 hrs Ventolin HFA 108 (90 2 puffs Inhalation Active Base) MCG/ACT every 6 hrs PRN for 90 days Protonix 40 MG 1 tablet Orally Once a Active day for 90 days PROCEDURES No Information RESULTS No Results REASON FOR VISIT US carotid results MEDICAL (GENERAL) HISTORY Type Description Date Medical [...] Name Sig Start Date Stop Date Creon 70115-53952 UNIT take by mouth 1 capsule 3 times a day as directed Orally 1 tab with each meal for 90 days Carvedilol 25 MG take 1 tablet by mouth twice a day Orally BID for 90 days Clonazepam 1 MG 1 tablet Orally BID PRN SEVERE ANXIETY for 30 days Protonix 40 MG 1 tablet Orally Once a day for 90 days Lactulose 10 GM/15ML 15 ml Orally BID PRN CONSTIPATION Insurance Providers Payer Name Payer Address Payer Insured Patient Coverage Cover age Phone Name Relationship to Start Date End Date Insured [employer] [address] [address] [phone] Alfred Escobar [facility] [address] [address] [facility] [address] [phone] Alfred Escobar [facility] [address] [address] MEDICARE Attn Part B [id number] Alfred Escobar [employer] Claims [address] [facility] [address]
--- OUTSIDE RECORDS SUMMARY | 2020-06-30 23:20 | XMS REPORT | Continuity of Care Document ---
:1960 Author Organization [facility] t Address [address] [place] [address] Care Team Providers Name Role Phone Theo Hernandez NP Attending Clinician Mau Armstrong Attending Clinician Problems Condition Condition Condition Status Onset Resolution Last Treating Co mments Source Name Details Category Date Date Treatment Clinician Date Hypertensi Problem Active 2019-04-22 M emoria ve 01:06:38 l disorder, Evan systemic Hypertensi arterial ve (disorder) disorder, systemic arterial (disorder) Active Problem 04/22/2019 [facility] Memory Problem Active 2019-04-22 Memor ia impairment 01:06:38 l (finding) Memory Maggy nn impairment (finding) Active Problem 04/22/2019 [facility] Neck pain Problem Active 2019-04-22 Me moria (finding) 01:06:38 l Neck [place] pain (finding) Active Problem 04/22/2019 [facility] [...] St n Reaction [facility] Bactrim Adverse Active rash [facility] DS Reaction [facility] Levaquin Adverse Active stops [facility] Reaction breathing [facility] Levaquin Levaquin Active [facility] Evan Social History Smoking Status Start Date Stop Date Source Social History 2019-03-28 18:18:16 2019-03-28 18:18:16 [facility] Evan Medications Ordered Filled Start Stop Current Ordering Indication Dosage Frequency Signature Comments Components Source Medication Medication Date Date Medication? Clinician (SIG) Name Name valsartan 2018-06 Yes 0 Memoria 40 mg oral 0-24 Refill(s) l tablet 19:12: Evan 00 pantoprazol Yes 40 mg = 1 M emoria e 40 mg 4-24 tab, PO, l oral 19:00: Daily, # [place] enteric 00 30 tab, 0 coated Refill(s) tablet carvedilol Yes 25 mg = 1 Me moria 25 mg oral 4-24 tab, PO, l tablet 19:00: BID, # 180 Maggy nn 00 tab, 0 Refill(s) Acetaminoph Yes 1 tab, PO, Memoria en 325 MG / 4-24 QID, 0 l Hydrocodone 19:00: Refill(s) H ermann Bitartrate 00 10 MG Oral Tablet [[place] 10/325] Clonazepam 2018- Yes 2 mg = 1 Mem oria 2 MG Oral 4-24 tab, PO, l Tablet 19:00: BID, # 60 Jun n [Klonopin] 00 tab, 0 Refill(s) Aspirin 81 Aspirin 81 2017- Yes Esthela [address] [facility] 4[facility]12 [place] [facility] Albuterol Albuterol 2015- Yes Esthela [address] [facility] Sulfate HFA Sulfate HFA 1-25 [place] [facility] Clonazepam Clonazepam Yes Esthela TAKE [address] [facility] [place] TABLET BY [facility] A l [facility] Carvedilol Carvedilol Yes Esthela take [address] [facility] [place] tablet by [facility] twice a l day [facility] Famotidine Famotidine Yes Esthela [address] [facility] [place] at bed[facility] [place] [facility] Protonix Protonix Yes Esthela [address] [place] [facility] [place] [facility] Dicyclomine Dicyclomine Yes Esthela [address] [facility] [address] HCl HCl [place] [facility] [place] [facility] Ventolin Ventolin Yes Esthela [address] [facility] [address] HFA HFA [place] [facility] [place] [facility] Valsartan Valsartan Yes Esthela [address] [facility] [place] [facility] [place] [facility] Hydrocodone Hydrocodone Yes Esthela (Schedule [facility] -[facility]et[facility] -Acetaminop [place] II Drug) [facility] TK 1 T PO [facility] TID l [facility] Creon Creon 2019- No Esthela take by [facility] [place] mouth 1 [facility] - 00:00 capsule 3 Memoria :00 times a l day as Outpati directed ent Clinics Vital Signs Vital Name Observation Time Observation Value Comments Source Systolic (mm Hg) 2019-03-28 18:17:00 Lucio Gordon Diastolic (mm Hg) 2019-03-28 18:17:00 Will Gordon Heart Rate 2019-03-28 18:17:00 Nona Gordon Respitory Rate 2019-03-28 18:17:00 Gricel Wright Height 2019-03-28 18:17:00 172.72 cm [facility] Evan Weight 2019-03-28 18:17:00 Nona Gordon BMI Calculated 2019-03-28 18:17:00 Gricel Wright BMI Calculated 2018-09-26 18:51:00 Gricel Wright Weight 2018-09-26 18:51:00 [facility] [place] Height 2018-09-26 18:51:00 172.72 cm [facility] [place] Heart Rate 2018-09-26 18:51:00 [facility] [place] Respitory Rate 2018-09-26 18:51:00 Memneena arauz [place] Systolic (mm Hg) 2018-09-26 18:51:00 Lucio burch [place] Diastolic (mm Hg) 2018-09-26 18:51:00 Mem orial Evan Procedures This patient has no known procedures. Encounters Start End Encounter Admission Attending Care Care Encounter Source Date/Time Date/Time Type Type Clinicians Facility Department ID 2020-06-09 2020-06-09 [facility] [id number] [facility] 2020-05-21 2020-05-21 [facility] [id number] [facility] 2020-05-14 2020-05-14 [facility] [id number] [facility] 2020-04-28 2020-04-28 [facility] [id number] [facility] 2020-04-16 2020-04-16 Out[facility] [id number] [facility] 2020-03-18 2020-03-18 [facility] [id number] [facility] 2020-03-18 2020-03-18 [facility] [id number] [facility] 2020-03-10 2020-03-10 [facility] [id number] [facility] 2019-07-21 2019-07-21 Emergency [facility] [id number] 18:06:23 22:09:00 Camila Layton [id number] [place] [id number] [place] [id number] 2019-07-15 2019-07-15 [facility] [id number] [facility] 15:01:00 15:01:00 t Specialty/U Martha [facility] - [facility] /Urology Clinic l Clinic Outpati ent Clinics 2019-07-09 2019-07-09 [facility] [id number] [facility] [address] 16:46:00 16:46:00 t Specialty/U Martha kes - Specialty ro[facility]y Mem[facility] /Urology Clinic l Clinic Outpati ent Clinics 2019-07-08 2019-07-08 [facility] [id number] [address] 14:51:00 14:51:00 t Specialty/U Martha kes - Specialty [facility]y [facility] /Urology Clinic l Clinic Outpati ent Clinics 2019-07-08 2019-07-08 [facility] [id number] 08:00:00 08:00:00 t Specialty/U Martha kes - Specialty rology Memori a /Urology Clinic l Clinic Outpati ent Clinics 2019-07-04 2019-07-04 [facility] [id number] [address] 13:00:00 13:00:00 t Specialty/U Martha kes - Specialty rology Memori a /Urology Clinic l Clinic Outpati ent Clinics 2019-07-02 2019-07-02 [facility] [id number] 14:32:00 14:32:[address] [facility] Medicine Medicine Outpati ent Clinics 2019-06-27 2019-06-27 [facility] [id number] 14:40:00 14:40:[address] [facility] Medicine Medicine Outpati ent Clinics 2019-06-03 2019-06-03 [facility] [id number] 11:17:00 11:17:00 t [facility] Medicine Outpati ent Clinics 2019-04-18 2019-04-19 [facility] [id number] 12:37:59 23:59:59 2019-04-11 2019-04-11 Outpatient AZ[facility] ArmstrongSCHER [facility] [id number] 15:30:00 15:30:00 Pio 03 Mau 2019-04-09 2019-04-09 [facility] [id number] 15:20:00 15:20:00 [facility] Outpati ent Clinics 2019-04-01 2019-04-02 [facility] [id number] 08:58:44 23:59:59 2019-03-28 2019-03-28 Outpatient Nathaniel JUANSCHER [facility] [id number] 13:00:00 23:59:59 [facility] 2019-02-19 2019-02-19 [facility] [id number] 14:40:00 14:40:00 [facility] Outpati ent Clinics 2018-12-11 2018-12-11 [facility] [id number] 11:21:00 11:21:00 [facility] Medicine Outpati ent Clinics 2018-11-19 2018-11-19 [facility] [id number] 14:40:00 14:40:00 [facility] Outpati ent Clinics 2018-10-31 2018-10-31 Outpatient Nathaniel ALICEJUANSCHER [facility] [id number] 13:45:00 13:45:00 Pio Mau 2018-09-26 2018-09-26 Outpatient AZ[facility]SCHER [facility] [id number] 13:30:00 23:59:59 Pio 00 Mau 2018-09-17 2018-09-17 [facility] [id number] [address] 16:00:00 16:00:00 [facility] Outpati ent Clinics 2018-08-02 2018-08-02 [facility] [id number] 16:07:00 16:07:00 Digital Al[facility] Outpati ent Clinics 2018-08-02 2018-08-02 [facility] [id number] 16:05:00 16:05:[address] [place] [facility] Medicine Outpati ent Clinics 2018-06-18 2018-06-18 [facility] [id number] 16:00:00 16:00:00 t [facility] Medicine Outpati ent Clinics 2018-01-18 2018-01-18 [facility] [id number] 14:00:00 14:00:00 t [facility] Medicine Outpati ent Clinics 2017-09-19 2017-09-19 [facility] [id number] 09:33:00 09:33:00 t [facility] Medicine Outpati ent Clinics 2017-09-14 2017-09-14 [facility] [id number] 13:00:00 13:00:00 [facility] Medicine Outpati ent Clinics 2017-09-12 2017-09-12 [facility] [id number] 11:05:00 11:05:00 [facility] Medicine Outpati ent Clinics 2017-08-29 2017-08-29 [facility] [id number] 15:30:00 15:30:00 t [facility] Medicine Outpati ent Clinics Results This patient has no known results.
[2020-07-01 04:02] LABS: Absolute Lymphocytes (CBC) 2.8 K/uL (0.7-4.9); Basophils % 0.4 % (0-1.3); Hematocrit 41.3 % (39.6-49.0); Lymphocytes % 35.1 % (15.3-44.8); MPV 8.2 fL (7.6-11.3); RBC Red Blood Cell Count 4.67 M/uL (4.33-5.43)
[2020-07-01 04:16] LABS: ALT/SGPT 13 U/L (12-78); AST/SGOT 10 U/L (15-37); Albumin 3.5 g/dL (3.4-5.0); Alkaline Phosphatase 49 U/L (45-117); BUN Blood Urea Nitrogen 12 mg/dL (7-18); Bicarbonate 30 mmol/L (21-32); Bilirubin Direct 0.1 mg/dL (0-0.2); Bilirubin Total 0.6 mg/dL (0.2-1.0); CKMB Creatine Kinase MB < 1.0 ng/mL (0.3-3.6); Creatine Phosphokinase 74 U/L (39-308); Glucose Level 89 mg/dL (74-106); Lipase 142 U/L (73-393); Magnesium 2.2 mg/dL (1.8-2.4); NT PRO-BNP 42 pg/mL (<125); Potassium 4.5 mmol/L (3.5-5.1); Protein, Total 6.7 g/dL (6.4-8.2); Sodium Level 139 mmol/L (136-145); Troponin (Emerg Dept Use Only) < 0.02 ng/mL (0.0-0.045)
[2020-07-01 05:05] LABS: Protime INR 1.04
[2020-07-01 05:33] LABS: SARS-COV-2 RT PCR NEGATIVE (NEGATIVE)
--- NOTE | 2020-07-01 06:50 | RAD REPORT ---
EXAM DESCRIPTION: RAD - Chest Single View - 07/01/2020 12:14 am CLINICAL HISTORY: DYSPNEA COMPARISON: April 2020 TECHNIQUE: AP portable chest image was obtained 07/01/2020 12:14 am . FINDINGS: No focal lung parenchymal process. Left lung and left hilum granulomatous type calcificati ons are seen. Interstitial pattern matches comparison. Heart and vasculature are normal. No measurabl e pleural effusion and no pneumothorax. No acute bony abnormality seen. No acute aortic findings susp ected. IMPRESSION: No acute cardiopulmonary process. No significant change from comparison study.
--- NOTE | 2020-07-01 08:36 | ER ---
Nurse's Notes [facility] Name: Alfredo Escobar Age: 59 yrs Sex: Male : 1960 Arrival Date: 06/30/2020 Time: 23:18 Bed 7 Private MD: Diagnosis: Dyspnea;Other chest pain Presentation: 06/30 23:42 Chief complaint: Patient states: shortness of breath, left sided chest tightness has em had 3 neg. covid test, denies fever. Coronavirus screen: Client denies travel out of the [place] in the last 14 days. Ebola Screen: Patient negative for fever greater than or equal to 101.5 degrees Fahrenheit, and additional compatible Ebola Virus Disease symptoms Patient denies exposure to infectious person. Patient denies travel to an Ebola-affected area in the 21 days before illness onset. No symptoms or risks identified at this time. Initial Sepsis Screen: Does the patient meet any 2 criteria? HR > 90 bpm. Does the patient have a suspected source of infection? No. Patient's initial sepsis screen is negative. Risk Assessment: Do you want to hurt yourself or someone else? Patient reports no desire to harm self or others. Onset of symptoms was June 30, 2020. 23:42 Method Of Arrival: Ambulatory em 23:42 Acuity: BUCKY 3 em Triage Assessment: 07/01 08:56 General: Appears in no apparent distress. Respiratory: Reports the patient has mild iw shortness of breath. Respiratory: Onset: The symptoms/episode began/occurred. Historical: - Allergies: 06/30 23:46 Bactrim; em 23:46 Iodinated Contrast Media - IV Dye; em 23:46 Keflex; em 23:46 Iodine; em 23:46 Latex, Natural Rubber; em 23:46 Levaquin; em 23:46 promethazine HCl; em 23:46 Toradol; em - PMHx: 23:46 Anxiety; Arthritis; Crohn's; GERD; Pancreatitis; PTSD; em - Immunization history:: Adult Immunizations up to date. - Social history:: Smoking status: Patient denies any tobacco usage or history of. Screenin/27 03:10 Abuse screen: Denies threats or abuse. Nutritional screening: No deficits noted. ea Tuberculosis screening: No symptoms or risk factors identified. Fall Risk None identified. Assessment: 03:09 General: Appears in no apparent distress. Behavior is appropriate for age. Pain: Denies ea pain. Neuro: Level of Consciousness is awake, alert, obeys commands, Oriented to person, place, time. Cardiovascular: Patient's skin is warm and dry. Respiratory: Airway is patent Respiratory effort is even, unlabored, Respiratory pattern is regular, symmetrical. Derm: Skin is pink, warm \T\ dry. 05:04 Reassessment: Patient and/or family updated on plan of care and expected duration. Pain ea level reassessed. Patient is alert, oriented x 3, equal unlabored respirations, skin warm/dry/pink. 07:00 Reassessment: RECD REPORT FROM MARTA HERNANDEZ. 59YO HM P/W SOB. ALL CURRENT ORDERS COMPLETED. bp Cardiovascular: Rhythm is sinus bradycardia. Respiratory: Breath sounds are coarse bilaterally. Vital Signs: 06/30 23:42 BP 131 / 93; Pulse 94; Resp 18; Temp 98.7; Pulse Ox 100% on R/A; Weight 77.11 kg; em Height 5 ft. 9 in. (175.26 cm); Pain 0/10; 07/01 03:59 BP 126 / 86; Pulse 98; Resp 16; Pulse Ox 97% ; ea 07:00 BP 128 / 76; Pulse 45; Resp 16; Pulse Ox 97% ; bp 06/30 23:42 Body Mass Index 25.10 (77.11 kg, 175.26 cm) em ED Course: 06/30 23:18 Patient arrived in ED. am2 23:44 Triage completed. em 23:46 Arm band placed on. em 07/01 00:15 XRAY CXR (1 view) In Process Unspecified. EDMS 03:03 Marta Gracia RN is Primary Nurse. ea 03:04 Rajan Adame MD is Attending Physician. tw4 03:10 Patient has correct armband on for positive identification. Bed in low position. Call ea light in reach. Side rails up X2. 07:00 Inserted saline lock: 20 gauge in right antecubital area, using aseptic technique. bp 07:07 Primary Nurse role handed off by Marta Gracia RN bp 07:07 Jitendra Light RN is Primary Nurse. bp 07:56 Troponin I Sent. bp 08:12 Attending Physician role handed off by Rajan Adame MD ma2 08:12 Dayron Perkins MD is Attending Physician. ma2 08:56 No provider procedures requiring assistance completed. IV discontinued, intact, iw bleeding controlled, No redness/swelling at site. Pressure dressing applied. Administered Medications: No medications were administered Outcome: 08:35 Discharge ordered by MD. ma2 08:56 Discharged to home ambulatory. iw 08:56 Condition: good 08:56 Discharge instructions given to patient, Instructed on discharge instructions, follow up and referral plans. Demonstrated understanding of instructions, follow-up care. 08:57 Patient left the ED. iw Signatures: Dispatcher [employer] EDMS Zack Coughlin, RN RN Darlene Napoles RN RN Sarah Armstrong am2 Marta Gracia RN RN ea Peltier, Brian, RN MARY Dayron Perkins MD MD ma2 Rajan Adame MD MD tw4
--- NOTE | 2020-07-01 08:36 | EDPHYS ---
Physician Documentation [facility] Name: Alfredo Escobar Age: 59 yrs Sex: Male : 1960 Arrival Date: 06/30/2020 Time: 23:18 Bed 7 Private MD: ED Physician Dayron Perkins HPI: 07/01 06:40 This 59 yrs old Male presents to ER via Ambulatory with complaints of tw4 Shortness Of Breath. 06:40 The patient has shortness of breath with light activity. Onset: The symptoms/episode tw4 began/occurred last week. Duration: The symptoms are intermittent. The patient's shortness of breath is aggravated by exertion, is alleviated by nothing. Associated signs and symptoms: Pertinent positives: chest pain. The patient has not experienced similar symptoms in the past. Historical: - Allergies: 06/30 23:46 Bactrim; em 23:46 Iodinated Contrast Media - IV Dye; em 23:46 Keflex; em 23:46 Iodine; em 23:46 Latex, Natural Rubber; em 23:46 Levaquin; em 23:46 promethazine HCl; em 23:46 Toradol; em - PMHx: 23:46 Anxiety; Arthritis; Crohn's; GERD; Pancreatitis; PTSD; em - Immunization history:: Adult Immunizations up to date. - Social history:: Smoking status: Patient denies any tobacco usage or history of. ROS: 07/01 06:40 Constitutional: Negative for fever, chills, and weight loss, Eyes: Negative for injury, tw4 pain, redness, and discharge. Abdomen/GI: Negative for abdominal pain, nausea, vomiting, diarrhea, and constipation, Back: Negative for injury and pain, MS/Extremity: Negative for injury and deformity, Skin: Negative for injury, rash, and discoloration, Neuro: Negative for headache, weakness, numbness, tingling, and seizure. Cardiovascular: Positive for chest pain, Negative for edema, orthopnea, palpitations. Respiratory: Positive for shortness of breath, Negative for cough, dyspnea on exertion, hemoptysis, orthopnea, pleurisy. Exam: 06:40 Constitutional: This is a well developed, well nourished patient who is awake, alert, tw4 and in no acute distress. Head/Face: Normocephalic, atraumatic. Chest/axilla: Normal chest wall appearance and motion. Nontender with no deformity. No lesions are appreciated. Cardiovascular: Regular rate and rhythm with a normal S1 and S2. No gallops, murmurs, or rubs. Normal PMI, no JVD. No pulse deficits. Respiratory: Lungs have equal breath sounds bilaterally, clear to auscultation and percussion. No rales, rhonchi or wheezes noted. No increased work of breathing, no retractions or nasal flaring. Abdomen/GI: Soft, non-tender, with normal bowel sounds. No distension or tympany. No guarding or rebound. No evidence of tenderness throughout. Back: No spinal tenderness. No costovertebral tenderness. Full range of motion. MS/ Extremity: Pulses equal, no cyanosis. Neurovascular intact. Full, normal range of motion. Neuro: Awake and alert, GCS 15, oriented to person, place, time, and situation. Cranial nerves II-XII grossly intact. Motor strength 5/5 in all extremities. Sensory grossly intact. Cerebellar exam normal. Normal gait. Vital Signs: 06/30 23:42 BP 131 / 93; Pulse 94; Resp 18; Temp 98.7; Pulse Ox 100% on R/A; Weight 77.11 kg; em Height 5 ft. 9 in. (175.26 cm); Pain 0/10; 07/01 03:59 BP 126 / 86; Pulse 98; Resp 16; Pulse Ox 97% ; ea 07:00 BP 128 / 76; Pulse 45; Resp 16; Pulse Ox 97% ; bp 06/30 23:42 Body Mass Index 25.10 (77.11 kg, 175.26 cm) em MDM: 03:04 Patient medically screened. [facility] 06:40 Data reviewed: vital signs, nurses notes. Counseling: I had a detailed discussion with [facility] the patient and/or guardian regarding: the historical points, exam findings, and any diagnostic results supporting the discharge/admit diagnosis, the need for outpatient follow up, smoking cessation. Special discussion: Based on the patient's history, exam, and Dx evaluation, there is no indication for emergent intervention or inpatient Tx. It is understood by the patient/guardian that if the Sx's persist or worsen they need to return immediately for re-evaluation. I discussed with the patient/guardian in detail that at this point there is no indication for admission to the hospital. It is understood, however, that if the symptoms persist or worsen the patient needs to return immediately for re-evaluation. 08:35 Differential diagnosis: Anemia Anxiety Reaction asthma, reactive airway disease. ma2 06/30 23:44 Order name: Blood Culture Adult (2) 06/30 23:44 Order name: BMP; Complete Time: 05:23 06/30 23:44 Order name: CBC with Diff; Complete Time: 05:23 06/30 23:44 Order name: Ckmb; Complete Time: 05:23 06/30 23:44 Order name: CPK; Complete Time: 05:23 06/30 23:44 Order name: D-Dimer; Complete Time: 05:23 06/30 23:44 Order name: Hepatic Function; Complete Time: 05:23 06/30 23:44 Order name: Lipase; Complete Time: 05:23 06/30 23:44 Order name: Magnesium; Complete Time: 05:23 06/30 23:44 Order name: NT PRO-BNP; Complete Time: 05:23 06/30 23:44 Order name: PT-INR; Complete Time: 05:23 06/30 23:44 Order name: Ptt, Activated; Complete Time: 05:23 06/30 23:44 Order name: Troponin (emerg Dept Use Only); Complete Time: 05:23 06/30 23:44 Order name: XRAY CXR (1 view); Complete Time: 08:12 06/30 23:44 Order name: EKG; Complete Time: 23:45 06/30 23:44 Order name: Cardiac monitoring; Complete Time: 03:59 06/30 23:44 Order name: EKG - Nurse/Tech; Complete Time: 03:59 06/30 23:44 Order name: IV Saline Lock; Complete Time: 03:38 06/30 23:44 Order name: Labs collected and sent; Complete Time: 03:38 06/30 23:44 Order name: O2 Per Protocol; Complete Time: 03:38 06/30 23:44 Order name: O2 Sat Monitoring; Complete Time: 03:38 tw4 01/27 05:34 Order name: COVID-19/FLU A+B; Complete Time: 06:14 EDMS 07/01 06:14 Interpretation: Within normal limits. tw4 07/01 06:14 Order name: Troponin I tw4 07/01 06:15 Order name: Troponin I; Complete Time: 08:12 EDMS EC:34 Rate is 50 beats/min. Rhythm is regular. QRS [place] is Normal. [place] interval is normal. QRS tw4 interval is normal. QT interval is normal. No Q waves. T waves are Normal. No ST changes noted. Clinical impression: Sinus bradycardia. Interpreted by me. Reviewed by me. Administered Medications: No medications were administered Disposition: 07/01/20 08:35 Discharged to Home. Impression: Dyspnea, Other chest pain. - Condition is Stable. - Discharge Instructions: Chest Wall Pain, Nonspecific Chest Pain, Pain Without a Known Cause, Shortness of Breath. - Medication Reconciliation Form, Thank You Letter, Antibiotic Education, Prescription Opioid Use form. - Follow up: Private Physician; When: Upon discharge from the Emergency Department; Reason: Recheck today's complaints, Continuance of care, Re-evaluation by your physician. - Problem is new. - Symptoms have improved. Signatures: Dispatcher [employer] [facility] Zack Coughlin RN RN em Williams, Irene, RN RN iw Dayron Perkins MD MD ma2 Rajan Adame MD MD tw4 Corrections: (The following items were deleted from the chart) 03:56 03:40 Influenza Screen (A ordered. [facility] 03:56 03:40 Influenza Screen (A \T\ B)+BA.LAB.BRZ ordered. [facility] 08:57 08:35 07/01/2020 08:35 Discharged to Home. Impression: Dyspnea; Other chest pain. iw Condition is Stable. Discharge Instructions: Nonspecific Chest Pain, Pain Without a Known Cause, Shortness of Breath. Forms are Medication Reconciliation Form, Thank You Letter, Antibiotic Education, Prescription Opioid Use. Follow up: Private Physician; When: Upon discharge from the Emergency Department; Reason: Recheck today's complaints, Continuance of care, Re-evaluation by your physician. Problem is new. Symptoms have improved. ma2
[2020-07-01 09:04] VITALS: TEMP 98.7
[2020-07-01 09:05] VITALS: O2SAT 97
[2020-07-01 09:07] VITALS: BP 128/76
--- NOTE | 2020-07-01 12:41 | EKG ---
Test Date: 2020-07-01 Test Time: 03:38:06 Teacher Private: LUCY MEASUREMENT RESULTS: Intervals: Rate: 50 LA: 144 QRSD: 76 QT: 422 QTc: 384 [place]: P: 78 LA: 144 QRS: 25 T: 27 INTERPRETIVE STATEMENTS: Sinus bradycardia Otherwise normal ECG Compared to ECG 03/31/2020 22:56:07 No significant changes Electronically Signed On 07-01-20 12:39:45 VICE PRESIDENT [employer] by Christian Dooley
== END 2020-07-01 08:57 | disposition home or self-care (01) ==
LOC: ER 23:17
DX: R06.00 Dyspnea, unspecified (principal); R07.89 Other chest pain; Z88.1 Allergy status to other antibiotic agents; Z91.09 Other allergy status, other than to drugs and biological substances; Z91.040 Latex allergy status; F43.10 Post-traumatic stress disorder, unspecified; Z20.822 Contact with and (suspected) exposure to COVID-19
CPT/HCPCS: 93005; 87040 ×2; 85025; 80048; 36415; 83735; 82550; 85610; 85379; 80076; 85730; 84484 ×2; 82553; 83690; 83880; 0240U; 71045; 99284

== ENCOUNTER 2020-07-29 17:23 | Emergency (ER) | payer OTHER ==
--- OUTSIDE RECORDS SUMMARY | 2020-07-29 17:27 | XMS REPORT | Continuity of Care Document ---
:1960 Author Organization [facility] t Address [address] [place] [address] Care Team Providers Name Role Phone Theo [...] 2019-04-22 Memor ia (finding) 01:06:38 l Tremor Reynolds (finding) Active Problem 04/22/2019 [facility] Dizziness Problem Active 2019-04-22 Me moria (finding) 01:06:38 l Evan Dizziness (finding) Active Problem 04/22/2019 [facility] Allergies, Adverse Reactions, Alerts Allergy Allergy Status Severity Reaction(s) Onset Inactive Treating Comm ents Source Name Type Date Date Clinician Hugo Levaqelmer Active [facility] Keflex Adverse Active rash [facility] Phenerga Adverse Active hives [facility] Bactrim Adverse Active rash [facility] Levaquin Adverse Active stops [facility] Reaction breathing [facility] Social History Smoking Status Start Date Stop Date Source Social History 2019-03-28 18:18:16 2019-03-28 18:18:16 Nona Gordon Medications Ordered Filled Start Stop Current Ordering Indication Dosage Frequency Signature Comments Components Source Medication Medication Date Date Medication? Clinician (SIG) Name Name valsartan 2018-06 Yes 0 Memoria 40 mg oral 0-24 Refill(s) l tablet 19:12: Evan 00 pantoprazol Yes 40 mg = 1 M emoria e 40 mg 4-24 tab, PO, l oral 19:00: Daily, # Reynolds enteric 00 30 tab, 0 coated Refill(s) tablet carvedilol Yes 25 mg = 1 Me moria 25 mg oral 4-24 tab, PO, l tablet 19:00: BID, # 180 Maggy nn 00 tab, 0 Refill(s) Acetaminoph 2018- Yes 1 tab, PO, Memoria en 325 MG / 4-24 QID, 0 l Hydrocodone 19:00: Refill(s) H ermann Bitartrate 00 10 MG Oral Tablet [Freedom 10/325] Clonazepam 2018- Yes 2 mg = 1 Mem oria 2 MG Oral 4-24 tab, PO, l Tablet 19:00: BID, # 60 Jun n [Klonopin] 00 tab, 0 Refill(s) Aspirin 81 Aspirin 81 2017- Yes Esthela [address] [facility] [place] [facility] Albuterol Albuterol 2015- Yes Esthela [address] [facility] Sulfate HFA Sulfate HFA 1-25 [place] [facility] Clonazepam Clonazepam Yes Esthela TAKE [address] [facility] [place] TABLET BY [facility]TH [facility]ICE A l DAY [facility] Carvedilol Carvedilol Yes Esthela take [address] [facility] [place] tablet by [facility] mouth [facility] twice a l day Out[facility] ent Clinics Famotidine Famotidine Yes Esthela [address] [facility] [place] at bedtime [facility] Protonix Protonix Yes Esthela [address] [place] [facility] Dicyclomine Dicyclomine Yes Esthela [address] [facility] HCl HCl [place] [facility] Ventolin Ventolin Yes Esthela [address] [facility] [facility] HFA HFA [place] [facility] Valsartan Valsartan Yes Esthlea [address] [facility] [place] [facility] Hydrocodone Hydrocodone Yes Esthela (Schedule [facility] -Acet[facility] -Acetaminop [place] II Drug) [facility] hen hen TK 1 T PO Memoria TID l [facility] Creon Creon 2019- No Esthela take by [facility] [place] mouth 1 [facility] - 00:00 capsule 3 Memoria :00 times a l day as Outpati directed ent Clinics Vital Signs Vital Name Observation Time Observation Value Comments Source Systolic (mm Hg) 2019-03-28 18:17:00 Lucio Gordon Diastolic (mm Hg) 2019-03-28 18:17:00 Will Gordon Heart Rate 2019-03-28 18:17:00 Nona Gordon Respitory Rate 2019-03-28 18:17:00 Gricel Wright Height 2019-03-28 18:17:00 172.72 cm [facility] Evan Weight 2019-03-28 18:17:00 Nona Gordon BMI Calculated 2019-03-28 18:17:00 Gricel Wright BMI Calculated 2018-09-26 18:51:00 Gricel Wright Weight 2018-09-26 18:51:00 [facility] Height 2018-09-26 18:51:00 172.72 cm [facility] Heart Rate 2018-09-26 18:51:00 [facility] Respitory Rate 2018-09-26 18:51:00 Memneena al Evan Systolic (mm Hg) 2018-09-26 18:51:00 Lucio burch Evan Diastolic (mm Hg) 2018-09-26 18:51:00 Mem orial Evan Procedures This patient has no known procedures. Encounters Start End Encounter Admission Attending Care Care Encounter Source Date/Time Date/Time Type Type Clinicians Facility Department ID 2020-07-09 2020-07-09 Outpatient [facility] [id number] [facility] 2020-06-09 2020-06-09 Outpatient [facility] [id number] [facility] 2020-05-21 2020-05-21 Outpatient [facility] [id number] [facility] 2020-05-14 2020-05-14 Outpatient [facility] [id number] [facility] 2020-04-28 2020-04-28 Outpatient [facility] [id number] [facility] 2020-04-16 2020-04-16 Outpatient [facility] [id number] [facility] 2020-03-18 2020-03-18 Outpatient [facility] [id number] [facility] 2020-03-18 2020-03-18 Outpatient [facility] [id number] [facility] 2020-03-10 2020-03-10 Outpatient [facility] [id number] [facility] 2019-07-21 2019-07-21 Emergency [facility] [id number] 18:06:23 22:09:00 Camila Layton [id number] [place] [id number] [place] [id number] 2019-07-15 2019-07-15 [facility] [id number] [facility] 15:01:00 15:01:00 t Specialty/U Martha kes - Specialty rology Memori a /Urology Clinic l Clinic Outpati ent Clinics 2019-07-09 2019-07-09 [facility] [id number] [facility] 16:46:00 16:46:00 t Specialty/U Martha kes - Specialty rology Memori a /Urology Clinic l Clinic Outpati ent Clinics 2019-07-08 2019-07-08 [facility] [id number] [facility] 14:51:00 14:51:00 t Specialty/U Martha kes - Specialty rology Memori a /Urology Clinic l Clinic Outpati ent Clinics 2019-07-08 2019-07-08 [facility] [id number] [facility] 08:00:00 08:00:00 t Specialty/U Martha kes - Specialty rology Memori a /Urology Clinic l Clinic Outpati ent Clinics 2019-07-04 2019-07-04 [facility] [id number] [facility] 13:00:00 13:00:00 t Specialty/U Martha kes - Specialty rology Memori a /Urology Clinic l Clinic Outpati ent Clinics 2019-07-02 2019-07-02 [facility] [id number] [address] 14:32:00 14:32:00 t [facility] Medicine Medicine Outpati ent Clinics 2019-06-27 2019-06-27 [facility] [id number] [address] 14:40:00 14:40:00 t [facility] Medicine l Medicine Outpati ent Clinics 2019-06-03 2019-06-03 [facility] [id number] [address] 11:17:00 11:17:00 t [place] Outpati ent Clinics 2019-04-18 2019-04-19 Outpatient MHMISCHER MISCHER [id number] 12:37:59 23:59:59 2019-04-11 2019-04-11 Outpatient Nathaniel MISCHER MISCHER [id number] 15:30:00 15:30:00 [facility] 2019-04-09 2019-04-09 [facility] [id number] [facility] 15:20:00 15:20:00 [facility] Medicine Outpati ent Clinics 2019-04-01 2019-04-02 Outpatient MHMISCHER MHMISCHER [id number] 08:58:44 23:59:59 00 2019-03-28 2019-03-28 [id number] 13:00:00 23:59:59 [facility] 2019-02-19 2019-02-19 [facility] [id number] [facility] 14:40:00 14:40:00 [facility] Outpati ent Clinics 2018-12-11 2018-12-11 [facility] [id number] 11:21:00 11:21:00 [facility] Outpati ent Clinics 2018-11-19 2018-11-19 [facility] [id number] 14:40:00 14:40:00 [facility] Outpati ent Clinics 2018-10-31 2018-10-31 [facility] [id number] 13:45:00 13:45:00 [facility] 2018-09-26 2018-09-26 [facility] [id number] 13:30:00 23:59:59 [facility] 2018-09-17 2018-09-17 [facility] [id number] [facility] 16:00:00 16:00:00 [facility] Outpati ent Clinics 2018-08-02 2018-08-02 [facility] [id number] 16:07:00 16:07:[address] [facility] [address] - [address] [facility] Medicine Outpati ent Clinics 2018-08-02 2018-08-02 [facility] [id number] [facility] 16:05:00 16:05:00 [place] [facility] Medicine Outpati ent Clinics 2018-06-18 2018-06-18 [facility] [id number] [facility] 16:00:00 16:00:00 t [facility] Medicine Outpati ent Clinics 2018-01-18 2018-01-18 [facility] [id number] [facility] 14:00:00 14:00:00 t [facility] Medicine Outpati ent Clinics 2017-09-19 2017-09-19 [facility] [id number] 09:33:00 09:33:00 t [facility] Medicine Outpati ent Clinics 2017-09-14 2017-09-14 [facility] [id number] 13:00:00 13:00:00 t [facility] Medicine Outpati ent Clinics 2017-09-12 2017-09-12 [facility] [id number] 11:05:00 11:05:00 t [facility] Medicine Outpati ent Clinics 2017-08-29 2017-08-29 [facility] [id number] [facility] 15:30:00 15:30:00 t [facility] Medicine Outpati ent Clinics Results This patient has no known results.
[2020-07-29 18:53] LABS: Absolute Lymphocytes (CBC) 2.4 K/uL (0.7-4.9); Basophils % 0.4 % (0-1.3); Hematocrit 44.2 % (39.6-49.0); Lymphocytes % 35.5 % (15.3-44.8); MPV 7.9 fL (7.6-11.3); RBC Red Blood Cell Count 4.88 M/uL (4.33-5.43)
--- NOTE | 2020-07-29 19:01 | RAD REPORT ---
EXAM DESCRIPTION: CT - Stone Protocol - 07/29/2020 6:28 pm CLINICAL HISTORY: Flank pain. lower abdominal pain COMPARISON: Abdomen Pelvis Wo Contrast dated 04/15/2020 TECHNIQUE: Axial images were obtained without oral or IV contrast. Lack of contrast limits solid org an and vascular assessment. The [id number] spans the entirety of the system partially obscuring uppermost abdomen and lung bases. Coronal reformatted images were obtained and reviewed. All CT scans are performed using dose optimization technique as appropriate and may include automated exposure control or mA/KV adjustment according to patient size. FINDINGS: The lower lung mitchell are clear. Imaged portions of the liver and spleen show no suspicious findings on non-contrast imaging. The panc reas and adrenal glands are normal. No pathologic lymphadenopathy in the abdomen or pelvis. No urinary tract stones or obstructive uropathy. No bowel obstruction, free air, free fluid or abscess. Normal appendix noted. The sigmoid colon demon strates wall thickening with numerous diverticula present. No significant bony abnormality. IMPRESSION: No urinary tract stones or obstructive uropathy. Thickening of the sigmoid colon with several diverticula present could be related to inflammation. Ad vise followup colonoscopy, however, if not recently performed to exclude underlying mass lesion.
[2020-07-29 19:07] LABS: Albumin 3.8 g/dL (3.4-5.0); Bilirubin Direct 0.2 mg/dL (0-0.2); Bilirubin Total 0.9 mg/dL (0.2-1.0); Potassium 4.4 mmol/L (3.5-5.1); Protein, Total 7.5 g/dL (6.4-8.2)
[2020-07-29] MEDS ORDERED: METRONIDAZOLE 500mg IVPB 500 MG/100 ML BAG IV ONE (20:29)
--- NOTE | 2020-07-29 20:38 | ER ---
Nurse's Notes [facility] Name: Alfredo Escobar Age: 59 yrs Sex: Male : 1960 Arrival Date: 07/29/2020 Time: 17:24 Bed 5 Private MD: Reese Jenkins Diagnosis: Other abdominal pain Presentation: 07/29 17:42 Chief complaint: Patient states: abdominal cramping radiates to the back x 1 week, ca1 diarrhea x 1 episode. Coronavirus screen: Client denies travel out of the [place] in the last 14 days. diarrhea, Client presents with at least one sign or symptom that may indicate coronavirus-19. Standard/surgical mask placed on the client. Provider contacted for isolation considerations. Ebola Screen: Patient negative for fever greater than or equal to 101.5 degrees Fahrenheit, and additional compatible Ebola Virus Disease symptoms Patient denies exposure to infectious person. Patient denies travel to an Ebola-affected area in the 21 days before illness onset. No symptoms or risks identified at this time. Initial Sepsis Screen: Does the patient meet any 2 criteria? No. Patient's initial sepsis screen is negative. Does the patient have a suspected source of infection? No. Patient's initial sepsis screen is negative. Risk Assessment: Do you want to hurt yourself or someone else? Patient reports no desire to harm self or others. Onset of symptoms was July 29, 2020. 17:42 Method Of Arrival: Ambulatory ca1 17:42 Acuity: BUCKY 3 ca1 Historical: - Allergies: 17:46 Bactrim; ca1 17:46 Iodinated Contrast Media - IV Dye; ca1 17:46 Iodine; ca1 17:46 Keflex; ca1 17:46 Latex, Natural Rubber; ca1 17:46 Levaquin; ca1 17:46 promethazine HCl; ca1 17:46 Toradol; ca1 - PMHx: 17:46 Anxiety; Arthritis; Crohn's; GERD; Pancreatitis; PTSD; ca1 - PSHx: 17:46 Hernia repair; ca1 - Immunization history:: Adult Immunizations up to date, Flu vaccine is up to date. - Social history:: Smoking status: Patient denies any tobacco usage or history of. Screenin:49 Abuse screen: Denies threats or abuse. Denies injuries from another. Nutritional iw screening: No deficits noted. Tuberculosis screening: No symptoms or risk factors identified. Fall Risk IV access (20 points). Assessment: 18:49 General: Appears in no apparent distress. Behavior is calm, cooperative. Pain: iw Complains of pain in abdomen. Neuro: Level of Consciousness is awake, alert, obeys commands, Oriented to person, place, time, situation, Moves all extremities. Cardiovascular: Patient's skin is warm and dry. Respiratory: Respiratory effort is even, unlabored, Respiratory pattern is regular, symmetrical. GI: Bowel sounds present X 4 quads. Abd is soft and non tender Abd is soft X 4 quads Reports lower abdominal pain, upper abdominal pain, diarrhea. Derm: Skin is intact, is healthy with good turgor. 19:50 Reassessment: Patient appears in no apparent distress at this time. Patient is alert, rr5 oriented x 3, equal unlabored respirations, skin warm/dry/pink. awaiting for results. 20:30 Reassessment: Patient appears in no apparent distress at this time. Patient and/or rr5 family updated on plan of care and expected duration. Pain level reassessed. 21:16 Reassessment: Patient appears in no apparent distress at this time. Patient is alert, rr5 oriented x 3, equal unlabored respirations, skin warm/dry/pink. discharge instruction given and explained without complaints made, stated "I feel better after the flagyl" Patient states symptoms have improved. Vital Signs: 17:42 BP 122 / 83; Pulse 68; Resp 16 S; Temp 98(TE); Pulse Ox 99% on R/A; Weight 81.65 kg ca1 (R); Height 5 ft. 9 in. (175.26 cm) (R); Pain 7/10; 20:00 BP 146 / 80; Pulse 61; Resp 17; Pulse Ox 98% ; rr5 21:10 BP 141 / 75; Pulse 65; Resp 19; Pulse Ox 99% ; rr5 17:42 Body Mass Index 26.58 (81.65 kg, 175.26 cm) ca1 ED Course: 17:24 Patient arrived in ED. ag5 17:24 Reese Jenkins DO is Private Physician. ag5 17:44 Triage completed. ca1 17:46 Arm band placed on right wrist. ca1 17:59 Darlene Mo, RN is Primary Nurse. iw 18:00 Ho Kong PA is PHCP. colin 18:00 Geronimo Campbell MD is Attending Physician. [facility] 18:28 CT Stone Protocol In Process Unspecified. EDMS 18:45 Initial lab(s) drawn, by me, sent to lab. Inserted saline lock: 20 gauge in right em1 antecubital area, using aseptic technique. Blood collected. 19:30 Patient has correct armband on for positive identification. Placed in gown. Bed in low rr5 position. Call light in reach. Pulse ox on. NIBP on. 20:37 Reese Jenkins DO is Referral Physician. [facility] 21:09 No provider procedures requiring assistance completed. IV discontinued, intact, rr5 bleeding controlled, No redness/swelling at site. Pressure dressing applied. Administered Medications: 20:30 Drug: Flagyl 500 mg Volume: 100 ml; Route: IVPB; Rate: 200 ml/hr; Infused Over: 30 ea mins; Site: right antecubital; 21:05 Follow up: Response: No adverse reaction; IV Status: Completed infusion; IV Intake: rr5 100ml 21:09 Drug: [place] 10 mg-325 mg 1 tabs {Note: rass 0 .} Route: PO; rr5 21:15 Follow up: Response: No adverse reaction; Medication administered at discharge.; RASS: rr5 Alert and Calm (0) Intake: 21:05 IV: 100ml; Total: 100ml. rr5 Outcome: 20:38 Discharge ordered by . [facility] 21:09 Discharged to home ambulatory. rr5 21:09 Condition: stable 21:09 Discharge instructions given to patient, Instructed on discharge instructions, follow up and referral plans. medication usage, Demonstrated understanding of instructions, follow-up care, medications, Prescriptions given X 1. 21:14 Patient left the ED. rr5 Signatures: Dispatcher [employer] EDMS Ho Kong PA PA [facility] Darlene Mo RN RN iw Martinez, Eric em1 Marta Gracia RN RN ea Roque, Raymond, RN RN rr5 Chelo Nolasco RN RN ca1 Gaskin, Ajare ag5
--- NOTE | 2020-07-29 20:38 | EDPHYS ---
Physician Documentation [facility] Name: Alfredo Escobar Age: 59 yrs Sex: Male : 1960 Arrival Date: 07/29/2020 Time: 17:24 Bed 5 Private MD: Reese Jenkins ED Physician Geronimo Campbell HPI: 07/29 18:07 This 59 yrs old Male presents to ER via Ambulatory with complaints of jmm Abdominal Cramping. 18:07 The patient presents with abdominal pain. Onset: The symptoms/episode began/occurred jmm gradually, 1 week(s) ago. The symptoms radiate to Associated signs and symptoms: Pertinent positives: diarrhea, Pertinent negatives: vomiting. The symptoms are described as achy. Modifying factors: The symptoms are alleviated by nothing, the symptoms are aggravated by nothing. The patient has experienced a previous episode. Historical: - Allergies: 17:46 Bactrim; ca1 17:46 Iodinated Contrast Media - IV Dye; ca1 17:46 Iodine; ca1 17:46 Keflex; ca1 17:46 Latex, Natural Rubber; ca1 17:46 Levaquin; ca1 17:46 promethazine HCl; ca1 17:46 Toradol; ca1 - PMHx: 17:46 Anxiety; Arthritis; Crohn's; GERD; Pancreatitis; PTSD; ca1 - PSHx: 17:46 Hernia repair; ca1 - Immunization history:: Adult Immunizations up to date, Flu vaccine is up to date. - Social history:: Smoking status: Patient denies any tobacco usage or history of. ROS: 18:07 Constitutional: Negative for fever, chills, and weight loss, Cardiovascular: Negative jmm for chest pain, palpitations, and edema, Respiratory: Negative for shortness of breath, cough, wheezing, and pleuritic chest pain. 18:07 Abdomen/GI: Positive for abdominal pain. 18:07 All other systems are negative. Exam: 18:07 Constitutional: This is a well developed, well nourished patient who is awake, alert, jmm and in no acute distress. Head/Face: atraumatic. Eyes: EOMI, no conjunctival erythema appreciated ENT: Moist Mucus Membranes Neck: Trachea midline, Supple Chest/axilla: Normal chest wall appearance and motion. Cardiovascular: Regular rate and rhythm. No edema appreciated Respiratory: Normal respirations, no respiratory distress appreciated 18:07 Back: Normal ROM Skin: General appearance color normal MS/ Extremity: Moves all extremities, no obvious deformities appreciated, no edema noted to the lower extremities Neuro: Awake and alert, normal gait Psych: Behavior is normal, Mood is normal, Patient is cooperative and pleasant 18:07 Abdomen/GI: Inspection: abdomen appears normal, Bowel sounds: normal, Palpation: soft, mild abdominal tenderness, in all quadrants. Vital Signs: 17:42 BP 122 / 83; Pulse 68; Resp 16 S; Temp 98(TE); Pulse Ox 99% on R/A; Weight 81.65 kg ca1 (R); Height 5 ft. 9 in. (175.26 cm) (R); Pain 7/10; 20:00 BP 146 / 80; Pulse 61; Resp 17; Pulse Ox 98% ; rr5 21:10 BP 141 / 75; Pulse 65; Resp 19; Pulse Ox 99% ; rr5 17:42 Body Mass Index 26.58 (81.65 kg, 175.26 cm) ca1 MDM: 18:07 Patient medically screened. [facility] 20:36 Data reviewed: vital signs, nurses notes. Counseling: I had a detailed discussion with colin the patient and/or guardian regarding: the historical points, exam findings, and any diagnostic results supporting the discharge/admit diagnosis, lab results, radiology results, the need for outpatient follow up, to return to the emergency department if symptoms worsen or persist or if there are any questions or concerns that arise at home. ED course: Patient advised to follow up with GI for further evaluation. patient understood and agrees with the plan of care. . 07/29 18:11 Order name: Basic Metabolic Panel [facility] 07/29 18:11 Order name: CBC with Diff [facility] 07/29 18:11 Order name: Hepatic Function [facility] 07/29 18:11 Order name: Lipase [facility] 07/29 18:11 Order name: Basic Metabolic Panel; Complete Time: 19:14 [facility] 07/29 18:11 Order name: CBC with Automated Diff; Complete Time: 18:56 [facility] 07/29 18:11 Order name: IV Saline Lock; Complete Time: 18:44 [facility] 07/29 18:11 Order name: Labs collected and sent; Complete Time: 18:45 [facility] 07/29 18:11 Order name: CT Stone Protocol; Complete Time: 19:05 [facility] 07/29 18:11 Order name: Liver (Hepatic) Function; Complete Time: 19:14 EDMS 07/29 18:12 Order name: Lipase; Complete Time: 19:14 EDMS Administered Medications: 20:30 Drug: Flagyl 500 mg Volume: 100 ml; Route: IVPB; Rate: 200 ml/hr; Infused Over: 30 ea mins; Site: right antecubital; 21:05 Follow up: Response: No adverse reaction; IV Status: Completed infusion; IV Intake: rr5 100ml 21:09 Drug: [place] 10 mg-325 mg 1 tabs {Note: rass 0 .} Route: PO; rr5 21:15 Follow up: Response: No adverse reaction; Medication administered at discharge.; RASS: rr5 Alert and Calm (0) Disposition: 07/29/20 20:38 Discharged to Home. Impression: Other abdominal pain. - Condition is Stable. - Discharge Instructions: Abdominal Pain, Adult. - Prescriptions for Bentyl 20 mg Oral Tablet - take 2 tablet by ORAL route every 6 hours As needed; 40 tablet. Flagyl 500 mg Oral Tablet - take 1 tablet by ORAL route every 6 hours for 10 days; 40 tablet. - Medication Reconciliation Form, Thank You Letter, Antibiotic Education, Prescription Opioid Use form. - Follow up: Reese Jenkins DO; When: 2 - 3 days; Reason: Recheck today's complaints, Continuance of care, Re-evaluation by your physician. Addendum: 08/03/2020 15:55 Co-signature as Attending Physician, Geronimo Campbell MD. r n Signatures: Dispatcher [employer] [facility] Ho Kong PA PA [facility] Geronimo Campbell MD MD rn Antunez, Elena RN Grover Biswas ea, RN RN rr5 Chelo Nolasco RN RN ca1 Corrections: (The following items were deleted from the chart) 07/29 21:14 20:38 07/29/2020 20:38 Discharged to Home. Impression: Other abdominal pain. Condition rr5 is Stable. Forms are Medication Reconciliation Form, Thank You Letter, Antibiotic Education, Prescription Opioid Use. Follow up: Reese Jenkins; When: 2 - 3 days; Reason: Recheck today's complaints, Continuance of care, Re-evaluation by your physician. [facility]
[2020-07-29] MEDS ORDERED: HYDROCODONE/APAP 10/325 TAB ONE (21:11)
[2020-07-29 23:22] VITALS: TEMP 98
[2020-07-29 23:24] VITALS: BP 141/75; O2SAT 99
== END 2020-07-29 21:14 | disposition home or self-care (01) ==
LOC: ER 17:23
DX: R10.9 Unspecified abdominal pain (principal); F41.9 Anxiety disorder, unspecified; M19.90 Unspecified osteoarthritis, unspecified site; K50.90 Crohn's disease, unspecified, without complications; K21.9 Gastro-esophageal reflux disease without esophagitis; F43.10 Post-traumatic stress disorder, unspecified
CPT/HCPCS: 36415; 74176; 76377; 80048; 80076; 83690; 85025; 96365; 99284

== ENCOUNTER 2020-09-01 18:57 | Emergency (ER) | payer OTHER ==
--- OUTSIDE RECORDS SUMMARY | 2020-09-01 18:59 | XMS REPORT | Continuity of Care Document ---
:1960 Author Organization [facility] t Address [address] [place] [address] Care Team Providers Name Role Phone Theo [...] Clinician Hugo Levaqelmer Active [facility] [place] Keflex Adverse Active rash [facility] Phenerga Adverse Active hives [facility] Bactrim Adverse Active rash [facility] Levaquin Adverse Active stops [facility] Reaction breathing [facility] Social History Smoking Status [...] tab, PO, l oral 19:00: Daily, # [facility] enteric 00 30 tab, 0 coated Refill(s) tablet carvedilol Yes 25 mg = 1 Me moria 25 mg oral 4-24 tab, PO, l tablet 19:00: BID, # 180 Maggy nn 00 tab, 0 Refill(s) Acetaminoph 2018- Yes 1 tab, PO, Memoria en 325 MG / 4-24 QID, 0 l Hydrocodone 19:00: Refill(s) H ermann Bitartrate 00 10 MG Oral Tablet [[place] 10/325] Clonazepam 2018- Yes 2 mg = 1 Mem oria 2 MG Oral 4-24 tab, PO, l Tablet 19:00: BID, # 60 Jun n [Klonopin] 00 tab, 0 Refill(s) Aspirin 81 Aspirin 81 2017- Yes Esthela [address] [facility]12 [facility] Albuterol Albuterol 2015- Yes Esthela [address] [facility] Sulfate HFA Sulfate HFA 1-25 [facility] Clonazepam Clonazepam Yes Esthela TAKE [address] [facility] TABLET BY [facility] M[facility]TH [facility] A [facility] DAY [facility] Carvedilol Carvedilol Yes Esthela take [address] [facility] tablet by [facility] mouth [facility] twice a l day [facility] ent Clinics Famotidine Famotidine Yes Esthela [address] [facility] Protonix Protonix Yes Esthela [address] [facility] Dicyclomine Dicyclomine Yes Esthela [address] [facility] [address] HCl HCl [facility] Ventolin Ventolin Yes Esthela [address] HFA HFA [facility] Valsartan Valsartan Yes Esthela [address] [facility] Hydrocodone Hydrocodone Yes Esthela (Schedule [facility] -Acetaminop -Acetaminop [facility] II [facility]) [facility] hen hen TK 1 T PO [facility] TID l [facility] Creon Creon 2019- No Esthela take by [facility] 07[facility]21 [facility] mouth 1 [facility] - 00:00 capsule 3 [facility] :00 times a l day as Outpati directed ent Clinics Vital Signs Vital Name Observation Time Observation Value Comments Source Systolic (mm Hg) 2019-03-28 18:17:00 Lucio Gordon Diastolic (mm Hg) 2019-03-28 18:17:00 Will Gordon Heart Rate 2019-03-28 18:17:00 Nona Gordon Respitory Rate 2019-03-28 18:17:00 Gricel Wright Height 2019-03-28 18:17:00 172.72 cm [facility] Evan Weight 2019-03-28 18:17:00 Nona Gordon BMI Calculated 2019-03-28 18:17:00 Gricel Wright BMI Calculated 2018-09-26 18:51:00 Gricel Wright Weight 2018-09-26 18:51:00 [facility] Height 2018-09-26 18:51:00 172.72 cm [facility] Heart Rate 2018-09-26 18:51:00 [facility] Respitory Rate 2018-09-26 18:51:00 Memneena al [place] Systolic (mm Hg) 2018-09-26 18:51:00 Lucio burch Evan Diastolic (mm Hg) 2018-09-26 18:51:00 Mem orial [place] Procedures This patient has no known procedures. Encounters Start End Encounter Admission Attending Care Care Encounter Source Date/Time Date/Time Type Type Clinicians Facility Department ID 2020-08-06 2020-08-06 Outpatient [facility] [id number] [facility] 2020-07-09 2020-07-09 Outpatient [facility] [id number] [facility] 2020-06-09 2020-06-09 Outpatient [facility] STLC [id number] [facility] 2020-05-21 2020-05-21 Outpatient [facility] [id number] [facility] 2020-05-14 2020-05-14 Outpatient [facility] [id number] [facility] 2020-04-28 2020-04-28 Outpatient [facility] [id number] [facility] 2020-04-16 2020-04-16 Outpatient [facility] [id number] [facility] 2020-03-18 2020-03-18 Outpatient [facility] [id number] [facility] 2020-03-18 2020-03-18 Outpatient [facility] [id number] [facility] 2020-03-10 2020-03-10 [facility] [id number] 2019-07-21 2019-07-21 Emergency [facility] [id number] 18:06:23 22:09:00 Camila Layton [id number] [place] [id number] Portal [id number] 2019-07-15 2019-07-15 [facility] [id number] [facility] 15:01:00 15:01:00 t Specialty/U Martha kes - Specialty rology Mem[facility] a /Urology Clinic l Clinic Outpati ent Clinics 2019-07-09 2019-07-09 [facility] [id number] [facility] 16:46:00 16:46:00 t Specialty/U Martha kes - Specialty rology Memori a /Urology Clinic l Clinic Outpati ent Clinics 2019-07-08 2019-07-08 [facility] [id number] 14:51:00 14:51:00 t Specialty/U Martha kes - Specialty rology Memori a /Urology Clinic l Clinic Outpati ent Clinics 2019-07-08 2019-07-08 [facility] [id number] 08:00:00 08:00:00 t Specialty/U Martha kes - Specialty rology Memori a /Urology Clinic l Clinic Outpati ent Clinics 2019-07-04 2019-07-04 [facility] [id number] [address] 13:00:00 13:00:00 t Specialty/U Martha kes - Specialty rology Memori a /Urology Clinic l Clinic Outpati ent Clinics 2019-07-02 2019-07-02 [facility] [id number] 14:32:00 14:32:00 t [facility] Medicine Medicine Outpati ent Clinics 2019-06-27 2019-06-27 [facility] [id number] 14:40:00 14:40:00 t [facility] Medicine Outpati ent Clinics 2019-06-03 2019-06-03 [facility] [id number] 11:17:00 11:17:00 [facility] Outpati ent Clinics 2019-04-18 2019-04-19 [id number] 12:37:59 23:59:59 2019-04-11 2019-04-11 [id number] 15:30:00 15:30:00 [facility] 2019-04-09 2019-04-09 [facility] [id number] 15:20:00 15:20:00 [facility] Outpati ent Clinics 2019-04-01 2019-04-02 [id number] 08:58:44 23:59:59 2019-03-28 2019-03-28 Outpatient [id number] 13:00:00 23:59:59 [place] 2019-02-19 2019-02-19 [facility] [id number] 14:40:00 14:40:00 [facility] Outpati ent Clinics 2018-12-11 2018-12-11 [facility] [id number] 11:21:00 11:21:00 [facility] Outpati ent Clinics 2018-11-19 2018-11-19 [facility] [id number] 14:40:00 14:40:00 [facility] Outpati ent Clinics 2018-10-31 2018-10-31 [facility] [id number] 13:45:00 13:45:00 [place] [facility] 2018-09-26 2018-09-26 Outpatient [id number] 13:30:00 23:59:59 [place] [facility] 2018-09-17 2018-09-17 [facility] [id number] [address] 16:00:00 16:00:00 t [facility] Medicine Outpati ent Clinics 2018-08-02 2018-08-02 [facility] [id number] [facility] 16:07:00 16:07:00 [place] [employer] [facility] - Drive [facility] l Medicine Outpati ent Clinics 2018-08-02 2018-08-02 [facility] [id number] 16:05:00 16:05:00 [place] [employer] - Drive [facility] Medicine Outpati ent Clinics 2018-06-18 2018-06-18 [facility] [id number] [address] 16:00:00 16:00:00 t [facility] l Medicine Outpati ent Clinics 2018-01-18 2018-01-18 [facility] [id number] [facility] 14:00:00 14:00:00 t [facility] Medicine Outpati ent Clinics 2017-09-19 2017-09-19 [facility] [id number] 09:33:00 09:33:00 t [facility] Medicine Outpati ent Clinics 2017-09-14 2017-09-14 [facility] [id number] 13:00:00 13:00:00 t [facility] Medicine Outpati ent Clinics 2017-09-12 2017-09-12 [facility] [id number] 11:05:00 11:05:00 t [facility] Medicine Outpati ent Clinics 2017-08-29 2017-08-29 [facility] [id number] [facility] 15:30:00 15:30:00 t [facility] Medicine Outpati ent Clinics Results This patient has no known results.
[2020-09-01 21:38] LABS: Basophils % 0.4 % (0-1.3); Lymphocytes % 28.4 % (15.3-44.8); MPV 8.1 fL (7.6-11.3)
[2020-09-01 21:43] LABS: Protime INR 1.09
[2020-09-01 21:57] LABS: ALT/SGPT 22 U/L (12-78); AST/SGOT 13 U/L (15-37); Albumin 3.6 g/dL (3.4-5.0); Alkaline Phosphatase 54 U/L (45-117); BUN Blood Urea Nitrogen 10 mg/dL (7-18); Bicarbonate 32 mmol/L (21-32); Bilirubin Direct 0.2 mg/dL (0-0.2); Bilirubin Total 0.7 mg/dL (0.2-1.0); Glucose Level 85 mg/dL (74-106); Lipase 181 U/L (73-393); Magnesium 2.2 mg/dL (1.8-2.4); NT PRO-BNP 58 pg/mL (<125); Potassium 3.9 mmol/L (3.5-5.1); Protein, Total 7.2 g/dL (6.4-8.2); Sodium Level 142 mmol/L (136-145); Troponin (Emerg Dept Use Only) < 0.02 ng/mL (0.0-0.045)
[2020-09-01] MEDS ORDERED: HYDROCODONE/APAP 7.5/325 MG TAB ONE (22:23)
[2020-09-01 23:39] LABS: SARS-COV-2 RT PCR NEGATIVE (NEGATIVE)
--- NOTE | 2020-09-01 23:46 | ER ---
Nurse's Notes [facility] Name: Alfredo Escobar Age: 59 yrs Sex: Male : 1960 Arrival Date: 09/01/2020 Time: 19:00 Bed 28 Private MD: Diagnosis: Chest pain, unspecified Presentation: 09/01 19:10 Chief complaint: Patient states: L mid back pain, low grade fever, BP jumping around, ll1 gassy, weak, fatigue, nausea for 3 days. CP and L arm pain off/on for 3 days. Coughing up white fluid from lungs in the morning. Coronavirus screen: Client denies travel out of the [place] in the last 14 days. cough unrelated to allergies, fatigue, fever, Client presents with at least one sign or symptom that may indicate coronavirus-19. Standard/surgical mask placed on the client. Coronavirus screen:. Ebola Screen: Patient denies travel to an Ebola-affected area in the 21 days before illness onset. Initial Sepsis Screen: Does the patient meet any 2 criteria? No. Patient's initial sepsis screen is negative. Does the patient have a suspected source of infection? Yes: Other: back pain. Risk Assessment: Do you want to hurt yourself or someone else? Patient reports no desire to harm self or others. Onset of symptoms was August 30, 2020. 19:10 Method Of Arrival: Ambulatory ll1 19:10 Acuity: BUCKY 3 ll1 Historical: - Allergies: 19:16 Bactrim; ll1 19:16 Iodinated Contrast Media - IV Dye; ll1 19:16 Iodine; ll1 19:16 Keflex; ll1 19:16 Latex, Natural Rubber; ll1 19:16 Levaquin; ll1 19:16 promethazine HCl; ll1 19:16 Toradol; ll1 - PMHx: 19:16 Anxiety; Crohn's; Arthritis; GERD; Pancreatitis; PTSD; ll1 - PSHx: 19:16 Hernia repair; ll1 - Immunization history:: Flu vaccine is up to date. - Social history:: Smoking status: Patient denies any tobacco usage or history of. Screenin:00 Abuse screen: Denies threats or abuse. Nutritional screening: No deficits noted. jb4 Tuberculosis screening: No symptoms or risk factors identified. Fall Risk None identified. Assessment: 21:00 General: Appears in no apparent distress. uncomfortable, Behavior is calm, cooperative, jb4 appropriate for age. Pain: Complains of pain in left subscapular area Pain radiates to left breast Pain currently is 8 out of 10 on a pain scale. Neuro: Level of Consciousness is awake, alert, obeys commands, Oriented to person, place, time, situation. Cardiovascular: Patient's skin is warm and dry. Respiratory: Airway is patent Respiratory effort is even, unlabored, Respiratory pattern is regular, symmetrical. GI: No signs and/or symptoms were reported involving the gastrointestinal system. : No signs and/or symptoms were reported regarding the genitourinary system. EENT: No signs and/or symptoms were reported regarding the EENT system. Derm: Skin is intact, Skin is pink, warm \T\ dry. Musculoskeletal: Circulation, motion, and sensation intact. Range of motion: intact in all extremities. 22:00 Reassessment: Patient appears in no apparent distress at this time. Patient and/or jb4 family updated on plan of care and expected duration. Pain level reassessed. Patient is alert, oriented x 3, equal unlabored respirations, skin warm/dry/pink. 23:00 Reassessment: Patient appears in no apparent distress at this time. Patient and/or jb4 family updated on plan of care and expected duration. Pain level reassessed. Patient is alert, oriented x 3, equal unlabored respirations, skin warm/dry/pink. 23:40 Reassessment: Patient appears in no apparent distress at this time. Patient and/or jb4 family updated on plan of care and expected duration. Pain level reassessed. Patient is alert, oriented x 3, equal unlabored respirations, skin warm/dry/pink. Vital Signs: 19:10 BP 129 / 89; Pulse 60; Resp 17; Temp 98.6; Pulse Ox 96% on R/A; Weight 74.84 kg; Height ll1 5 ft. 9 in. (175.26 cm); Pain 10/10; 21:45 BP 125 / 76; Pulse 63; Resp 18; Pulse Ox 98% on R/A; jb4 23:15 BP 155 / 87; Pulse 61; Resp 16; Pulse Ox 100% on R/A; jb4 19:10 Body Mass Index 24.37 (74.84 kg, 175.26 cm) ll1 ED Course: 19:00 Patient arrived in ED. mr 19:15 Triage completed. ll1 19:16 Arm band placed on. ll1 20:56 Gary Barker NP is PHCP. pm1 20:56 Geronimo Campbell MD is Attending Physician. pm1 21:00 Patient has correct armband on for positive identification. Bed in low position. Call jb4 light in reach. Side rails up X 1. Pulse ox on. NIBP on. 21:19 Inserted saline lock: 18 gauge in left antecubital area, using aseptic technique. Blood ds4 collected. 21:53 Jose Luis Corea, RN is Primary Nurse. jb4 21:54 XRAY Chest (1 view) In Process Unspecified. EDMS 23:58 No provider procedures requiring assistance completed. IV discontinued, intact, jb4 bleeding controlled, No redness/swelling at site. Pressure dressing applied. Administered Medications: 22:10 Drug: [place] (HYDROcodone-acetaminophen) (7.5 mg-325 mg) 1 tabs Route: PO; jb4 23:00 Follow up: Response: No adverse reaction; Marked relief of symptoms; Pain is decreased; jb4 RASS: Alert and Calm (0) Outcome: 23:46 Discharge ordered by . pm1 23:58 Discharged to home ambulatory. jb4 23:58 Condition: stable 23:58 Discharge instructions given to patient, Instructed on discharge instructions, follow up and referral plans. Demonstrated understanding of instructions, follow-up care. 23:58 Patient left the ED. jb4 Signatures: Dispatcher [employer] DANUTAFL Genesis Rodney mr Ortiz Siva ds4 Gary Barker NP SIGN LANGUAGE INSTRUCTOR pm1 Jose Luis Corea, RN RN jb4 Dominga Gamez RN RN 1
--- NOTE | 2020-09-01 23:47 | EDPHYS ---
Physician Documentation [facility] Name: Alfredo Escobar Age: 59 yrs Sex: Male : 1960 Arrival Date: 09/01/2020 Time: 19:00 Bed 28 Private MD: ED Physician Geronimo Campbell HPI: 09/01 21:00 This 59 yrs old Male presents to ER via Ambulatory with complaints of Back pm1 Pain. 21:00 The patient presents with pain that is acute. The symptoms are located in the left pm1 subscapular area. 21:00 Onset: The symptoms/episode began/occurred 3 day(s) ago. pm1 21:00 Associated signs and symptoms: Pertinent positives: chest pain, Cough, Pertinent pm1 negatives: abdominal pain, fever, nausea, vomiting, Diarrhea. The problem was sustained from unknown cause. Modifying factors: The patient symptoms are alleviated by nothing, the patient symptoms are aggravated by nothing. Severity of symptoms: in the emergency department the symptoms are unchanged. The patient has not recently seen a physician. Historical: - Allergies: 19:16 Bactrim; ll1 19:16 Iodinated Contrast Media - IV Dye; ll1 19:16 Iodine; ll1 19:16 Keflex; ll1 19:16 Latex, Natural Rubber; ll1 19:16 Levaquin; ll1 19:16 promethazine HCl; ll1 19:16 Toradol; ll1 - PMHx: 19:16 Anxiety; Crohn's; Arthritis; GERD; Pancreatitis; PTSD; ll1 - PSHx: 19:16 Hernia repair; ll1 - Immunization history:: Flu vaccine is up to date. - Social history:: Smoking status: Patient denies any tobacco usage or history of. ROS: 21:00 Constitutional: Negative for fever, chills, and weight loss. pm1 21:00 Respiratory: Negative for shortness of breath, cough, wheezing, and pleuritic chest pain, Abdomen/GI: Negative for abdominal pain, nausea, vomiting, diarrhea, and constipation, MS/Extremity: Negative for injury and deformity, Skin: Negative for injury, rash, and discoloration, Neuro: Negative for headache, weakness, numbness, tingling, and seizure. 21:00 Cardiovascular: Positive for chest pain, of the anterior aspect of left upper chest. 21:00 Back: Positive for of the left scapular area. Exam: 21:00 Constitutional: This is a well developed, well nourished patient who is awake, alert, pm1 and in no acute distress. Head/Face: Normocephalic, atraumatic. 21:00 Skin: Warm, dry with normal turgor. Normal color with no rashes, no lesions, and no evidence of cellulitis. MS/ Extremity: Pulses equal, no cyanosis. Neurovascular intact. Full, normal range of motion. 21:00 Chest/axilla: Inspection: normal, Palpation: tenderness, of the anterior aspect of left upper chest, that totally reproduces the patient's complaints. 21:00 Back: pain, that is mild, of the left subscapular area, vertebral tenderness, is not appreciated. 21:00 Neuro: Exam negative for acute changes, Orientation: is normal, Mentation: is normal, Motor: is normal, moves all fours. Vital Signs: 19:10 BP 129 / 89; Pulse 60; Resp 17; Temp 98.6; Pulse Ox 96% on R/A; Weight 74.84 kg; Height ll1 5 ft. 9 in. (175.26 cm); Pain 10/10; 21:45 BP 125 / 76; Pulse 63; Resp 18; Pulse Ox 98% on R/A; jb4 23:15 BP 155 / 87; Pulse 61; Resp 16; Pulse Ox 100% on R/A; jb4 19:10 Body Mass Index 24.37 (74.84 kg, 175.26 cm) ll1 MDM: 21:01 Patient medically screened. pm1 23:45 Data reviewed: vital signs. Data interpreted: Pulse oximetry: on room air is 100 %. pm1 Interpretation: normal. Counseling: I had a detailed discussion with the patient and/or guardian regarding: the historical points, exam findings, and any diagnostic results supporting the discharge/admit diagnosis, lab results, radiology results, the need for outpatient follow up, to return to the emergency department if symptoms worsen or persist or if there are any questions or concerns that arise at home. 09/01 21:08 Order name: Basic Metabolic Panel pm1 09/01 21:08 Order name: CBC with Diff; Complete Time: 21:52 pm1 09/01 21:08 Order name: LFT's; Complete Time: 22:03 pm1 09/01 21:08 Order name: Magnesium; Complete Time: 22:03 pm1 09/01 21:08 Order name: NT PRO-BNP; Complete Time: 22:03 pm1 09/01 21:08 Order name: PT-INR; Complete Time: 21:52 pm1 09/01 21:08 Order name: Troponin (emerg Dept Use Only); Complete Time: 22:03 pm1 09/01 21:08 Order name: XRAY Chest (1 view) pm1 09/01 21:08 Order name: Lipase; Complete Time: 22:03 pm1 09/01 21:09 Order name: Basic Metabolic Panel; Complete Time: 22:03 EDMS 09/01 22:08 Order name: Strep pm1 09/01 23:40 Order name: COVID-19/FLU A+B; Complete Time: 23:45 EDMS 09/01 21:08 Order name: EKG; Complete Time: 21:09 pm1 09/01 21:08 Order name: Cardiac monitoring; Complete Time: 21:51 pm1 09/01 21:08 Order name: EKG - Nurse/Tech; Complete Time: 21:51 pm1 09/01 21:08 Order name: IV Saline Lock; Complete Time: 21:22 pm1 09/01 21:08 Order name: Labs collected and sent; Complete Time: 21:22 pm1 09/01 21:08 Order name: O2 Per Protocol; Complete Time: 21:22 pm1 09/01 21:08 Order name: O2 Sat Monitoring; Complete Time: 21:22 pm1 Administered Medications: 22:10 Drug: [place] (HYDROcodone-acetaminophen) (7.5 mg-325 mg) 1 tabs Route: PO; jb4 23:00 Follow up: Response: No adverse reaction; Marked relief of symptoms; Pain is decreased; jb4 RASS: Alert and Calm (0) Disposition: 09/02 00:19 Co-signature as Attending Physician, Geronimo Campbell MD. rn Disposition: 09/01/20 23:46 Discharged to Home. Impression: Chest pain, unspecified. - Condition is Stable. - Discharge Instructions: Nonspecific Chest Pain. - Medication Reconciliation Form, Thank You Letter, Antibiotic Education, Prescription Opioid Use form. - Follow up: Emergency Department; When: As needed; Reason: Worsening of condition. Follow up: Private Physician; When: 2 - 3 days; Reason: Recheck today's complaints, Continuance of care, Re-evaluation by your physician. - Problem is new. - Symptoms have improved. Signatures: Dispatcher [employer] EDDE Geronimo Campbell MD MD rn Gary Barker, BAKERY DECORATOR BAKERY DECORATOR pm1 Jose Luis Corea RN RN jb4 Dominga Gamez RN RN ll1 Corrections: (The following items were deleted from the chart) 09/01 21:16 21:09 Angio Aorta For Dissection+CT.RAD.BRZ ordered. EDDE EDMS 22:45 22:08 CORONAVIRUS+MR.LAB.BRZ ordered. EDDE EDMS 22:45 22:09 Influenza Screen (A \T\ B)+BA.LAB.BRZ ordered. [facility] EDMS 23:58 23:46 09/01/2020 23:46 Discharged to Home. Impression: Chest pain, unspecified. jb4 Condition is Stable. Forms are Medication Reconciliation Form, Thank You Letter, Antibiotic Education, Prescription Opioid Use. Follow up: Emergency Department; When: As needed; Reason: Worsening of condition. Follow up: Private Physician; When: 2 - 3 days; Reason: Recheck today's complaints, Continuance of care, Re-evaluation by your physician. Problem is new. Symptoms have improved. pm1
[2020-09-02 00:55] VITALS: TEMP 98.6
[2020-09-02 01:05] VITALS: BP 155/87; O2SAT 100
--- NOTE | 2020-09-02 11:02 | RAD REPORT ---
EXAM DESCRIPTION: CHEST PAIN COMPARISON: None. TECHNIQUE: XR CHEST 1 VIEW 09/01/2020 9:08 PM CDT FINDINGS: Cardiac silhouette is normal in size. There is a small calcified mid left lung granuloma. There is no pleural effusion. There is no pneumothorax. There are no acute osseous findings. IMPRESSION: No pneumonia. Electronically signed by: Johnny Aquino MD 09/01/2020 10:48 PM CDT Due to temporary technical issues with the PACS/Fluency reporting system, reports are being signed by the in house radiologist without review as a courtesy to ensure prompt reporting. The interpreting r adiologist is fully responsible for the content of the report.
--- NOTE | 2020-09-02 17:01 | EKG ---
Test Date: 2020-09-01 Test Time: 21:42:52 Cardiac Care Unit Nurse: MORE MEASUREMENT RESULTS: Intervals: Rate: 65 SC: 148 QRSD: 82 QT: 396 QTc: 411 [place]: P: 52 SC: 148 QRS: 33 T: 37 INTERPRETIVE STATEMENTS: Normal sinus rhythm Normal ECG Compared to ECG 07/01/2020 03:38:06 Sinus bradycardia no longer present Electronically Signed On 09-02-20 17:00:32 CDT by Christian Dooley
== END 2020-09-01 23:58 | disposition home or self-care (01) ==
LOC: ER 18:57
DX: R07.9 Chest pain, unspecified (principal); Z20.822 Contact with and (suspected) exposure to COVID-19; Z88.1 Allergy status to other antibiotic agents; Z88.5 Allergy status to narcotic agent; Z91.040 Latex allergy status; Z91.041 Radiographic dye allergy status; Z91.048 Other nonmedicinal substance allergy status
CPT/HCPCS: 93005; 87070; 85025; 80048; 36415; 83735; 85610; 80076; 87081; 84484; 83690; 83880; 0240U; 71045; 99284

== ENCOUNTER 2020-09-11 18:34 | Emergency (ER) | payer OTHER ==
--- OUTSIDE RECORDS SUMMARY | 2020-09-11 18:37 | XMS REPORT | Continuity of Care Document ---
:1960 Author Organization [facility] t Address [address] [place] [address] Care Team Providers Name Role Phone Theo [...] 2019-04-22 M emoria a 01:06:38 l (finding) Loman Paresthesi a (finding) Active Problem 04/22/2019 [facility] Simple Problem Active 2019-04-22 Memor ia obesity 01:06:38 l (disorder) Simple Herm jessa obesity (disorder) Active Problem 04/22/2019 [facility] Tremor Problem Active 2019-04-22 Memor ia (finding) 01:06:38 l Tremor Evan (finding) Active Problem 04/22/2019 [facility] Dizziness Problem Active 2019-04-22 Me moria (finding) 01:06:38 roberto Evan Dizziness (finding) Active Problem 04/22/2019 [facility] Allergies, Adverse Reactions, Alerts Allergy Allergy Status Severity Reaction(s) Onset Inactive Treating Comm ents Source Name Type Date Date Clinician Hugo Levaquin Active [facility] Evan Keflex Adverse Active rash [facility] Phenerga Adverse Active hives [facility] Bactrim Adverse Active rash [facility] DS [facility] Levaquin Adverse Active stops [facility] Reaction breathing [facility] Social History Smoking Status [...] ermann Bitartrate 00 10 MG Oral Tablet [Barrington 10/325] Clonazepam 2018- Yes 2 mg = 1 Mem oria 2 MG Oral 4-24 tab, PO, l Tablet 19:00: BID, # 60 Jun n [Klonopin] 00 tab, 0 Refill(s) Aspirin 81 Aspirin 81 2017- Yes Esthela [address] [facility]12 [facility] Albuterol Albuterol 2015- Yes Esthela [address] [facility] Sulfate HFA Sulfate HFA 1-25 [facility] Clonazepam Clonazepam Yes Esthela TAKE [address] [facility] TABLET BY [facility]TH [facility] Carvedilol Carvedilol Yes Esthela take [address] [facility] tablet by [facility] mouth [facility] twice a l day [facility] Famotidine Famotidine Yes Esthela [address] [facility] at bedtime [facility] Protonix Protonix Yes Esthela [address] [facility] Dicyclomine Dicyclomine Yes Esthela [address] [facility] HCl HCl [facility] Ventolin Ventolin Yes Esthela [address] [facility] HFA HFA [facility] Valsartan Valsartan Yes Esthela [address] [facility] Hydrocodone Hydrocodone Yes Esthela (Schedule [facility] -Acetaminop -Acetaminop [facility] II Drug) [facility] TK 1 T PO [facility] TID l [facility] Creon Creon 2019- No Esthela take by [facility] 07[facility]21 [facility] mouth 1 [facility] - 00:00 capsule 3 [...] Evan Height 2018-09-26 18:51:00 172.72 cm [facility] L[facility] Heart Rate 2018-09-26 18:51:00 [facility] Evan Respitory Rate 2018-09-26 18:51:00 Gricel arauz Evan Systolic (mm Hg) 2018-09-26 18:51:00 Lucio burch Loman Diastolic (mm Hg) 2018-09-26 18:51:00 Mem orial Loman Procedures This patient has no known procedures. Encounters Start End Encounter Admission Attending Care Care Encounter Source Date/Time Date/Time Type Type Clinicians Facility Department ID 2020-09-07 2020-09-07 Outpatient [facility] [id number] [facility] 2020-08-06 2020-08-06 Outpatient [facility] [id number] [facility] 2020-07-09 2020-07-09 Outpatient [facility] [id number] [facility] 2020-06-09 2020-06-09 Outpatient [facility] [id number] [facility] 2020-05-21 2020-05-21 Outpatient [facility] [id number] [facility] 2020-05-14 2020-05-14 Outpatient [facility] [id number] [facility] 2020-04-28 2020-04-28 Outpatient [facility] [id number] [facility] 2020-04-16 2020-04-16 Outpatient [facility] [id number] [facility] 2020-03-18 2020-03-18 Outpatient [facility] [id number] [facility] 2020-03-18 2020-03-18 [facility] [id number] [facility] 2020-03-10 2020-03-10 Outpatient [facility] [id number] [facility] 2019-07-21 2019-07-21 Emergency [facility] [id number] 18:06:23 22:09:00 Camila Layton [id number] [place] [id number] [place] [id number] 2019-07-15 2019-07-15 [facility] [id number] [facility] 15:01:00 15:01:00 t Specialty/U Martha kes - Specialty rology Memori a /Urology Clinic l Clinic Outpat[facility] ent Clinics 2019-07-09 2019-07-09 [facility] [id number] [facility] 16:46:00 16:46:00 t Specialty/U Martha kes - Specialty rology Memori a /Urology Clinic l Clinic Outpati ent Clinics 2019-07-08 2019-07-08 [facility] [id number] [facility] 14:51:00 14:51:00 t Specialty/U Martha kes - Specialty rology Memori a /Urology Clinic l Clinic Outpati ent Clinics 2019-07-08 2019-07-08 [facility] [id number] [facility] 08:00:00 08:00:00 t Specialty/U Martha kes - Specialty rology Memori a /Urology Clinic l Clinic Outpati ent Clinics 2019-07-04 2019-07-04 [facility] [id number] [facility] 13:00:00 13:00:00 t Specialty/U Martha kes - Specialty rology Memori a /Urology Clinic l Clinic Outpati ent Clinics 2019-07-02 2019-07-02 [facility] [id number] [address] 14:32:00 14:32:00 t [facility] Outpat[facility] ent Clinics 2019-06-27 2019-06-27 [facility] [id number] 14[facility]40:00 14:40:00 [facility] Medicine Outpati ent Clinics 2019-06-03 2019-06-03 [facility] [id number] 11:17:00 11:17:00 [facility] Medicine Outpati ent Clinics 2019-04-18 2019-04-19 Outpatient MHMISCHER MISCHER [id number] 12:37:59 23:59:59 2019-04-11 2019-04-11 [facility] [id number] 15:30:00 15:30:00 [facility] 2019-04-09 2019-04-09 [facility] [id number] [address] 15:20:00 15:20:00 [facility] Outpati ent Clinics 2019-04-01 2019-04-02 Outpatient MHMISCHER MISCHER [id number] 08:58:44 23:59:59 00 2019-03-28 2019-03-28 Outpatient [facility] [id number] 13:00:00 23:59:59 [facility] 2019-02-19 2019-02-19 [facility] [id number] [facility] 14:40:00 14:40:00 t [facility] Medicine Outpati ent Clinics 2018-12-11 2018-12-11 [facility] [id number] [facility] 11:21:00 11:21:00 [facility] Medicine Outpati ent Clinics 2018-11-19 2018-11-19 [facility] [id number] 14:40:00 14:40:00 [facility] Medicine Outpati ent Clinics 2018-10-31 2018-10-31 Outpatient AZAR ArmstrongSCHLATHA MISCHER [id number] 13:45:00 13:45:00 [facility] 2018-09-26 2018-09-26 Outpatient Nathaniel [facility] [id number] 13:30:00 23:59:59 [facility]io [place] 2018-09-17 2018-09-17 [facility] [id number] [facility] 16:00:00 16:00:00 [facility] Medicine Outpati ent Clinics 2018-08-02 2018-08-02 [facility] [id number] 16:07:00 16:07:00 t [employer] [facility] Medicine Outpati ent Clinics 2018-08-02 2018-08-02 [facility] [id number] [facility] 16:05:00 16:05:00 [employer] [place] [facility] Medicine Outpati ent Clinics 2018-06-18 2018-06-18 [facility] [id number] [facility] 16:00:00 16:00:00 [facility] Medicine Outpati ent Clinics 2018-01-18 2018-01-18 [facility] [id number] [facility] 14:00:00 14:00:00 [facility] Medicine Outpati ent Clinics 2017-09-19 2017-09-19 [facility] [id number] [facility] 09:33:00 09:33:00 [facility] Medicine Outpati ent Clinics 2017-09-14 2017-09-14 [facility] [id number] 13:00:00 13:00:00 [facility] Medicine Outpati ent Clinics 2017-09-12 2017-09-12 [facility] [id number] [address] 11:05:00 11:05:00 [facility] Medicine Outpati ent Clinics 2017-08-29 2017-08-29 [facility] [id number] [facility] 15:30:00 15:30:00 [facility] Medicine Outpati ent Clinics Results This patient has no known results.
[2020-09-11 20:53] LABS: Absolute Lymphocytes (CBC) 2.3 K/uL (0.7-4.9); Basophils % 0.2 % (0-1.3); Hematocrit 43.3 % (39.6-49.0); MPV 7.5 fL (7.6-11.3); RBC Red Blood Cell Count 4.87 M/uL (4.33-5.43)
[2020-09-11] MEDS ORDERED: MORPHINE 4 MG/ML SYR ONE (21:04)
[2020-09-11] MEDS ORDERED: NA CHLORIDE 0.9% 1,000 ML ONE (21:04)
[2020-09-11] MEDS ORDERED: ONDANSETRON 4 MG/2 ML VIAL ONE (21:04)
[2020-09-11 21:05] LABS: Protime INR 1.12
[2020-09-11 21:14] LABS: ALT/SGPT 22 U/L (12-78); AST/SGOT 14 U/L (15-37); Albumin 3.7 g/dL (3.4-5.0); Alkaline Phosphatase 50 U/L (45-117); BUN Blood Urea Nitrogen 13 mg/dL (7-18); Bicarbonate 32 mmol/L (21-32); Bilirubin Direct 0.2 mg/dL (0-0.2); Bilirubin Total 0.6 mg/dL (0.2-1.0); Creatine Phosphokinase 74 U/L (39-308); Glucose Level 83 mg/dL (74-106); Magnesium 2.3 mg/dL (1.8-2.4); NT PRO-BNP 37 pg/mL (<125); Potassium 4.5 mmol/L (3.5-5.1); Protein, Total 7.1 g/dL (6.4-8.2); Sodium Level 141 mmol/L (136-145); Troponin (Emerg Dept Use Only) < 0.02 ng/mL (0.0-0.045)
--- NOTE | 2020-09-11 21:38 | RAD REPORT ---
EXAM DESCRIPTION: RAD - Ribs Left - 09/11/2020 9:25 pm CLINICAL HISTORY: PAIN COMPARISON: Chest Single View dated 09/01/2020 FINDINGS: No displaced rib fracture is seen. No aggressive rib lesion.
--- NOTE | 2020-09-11 21:39 | RAD REPORT ---
EXAM DESCRIPTION: RAD - Chest Single View - 09/11/2020 9:27 pm CLINICAL HISTORY: RIB PAIN - LEFT Chest pain. COMPARISON: Chest Single View dated 09/01/2020; Chest Single View dated 06/30/2020; Abdomen Acute Seri es dated 04/27/2020; Abdomen Acute Series dated 04/16/2020 FINDINGS: Portable technique limits examination quality. Small calcified granuloma is present left mid lung with calcified left hilar lymph nodes. The lungs a re otherwise clear. The heart is normal in size. No displaced fractures. IMPRESSION: No acute intrathoracic process suspected.
--- NOTE | 2020-09-11 22:26 | EDPHYS ---
Physician Documentation [facility] Name: Alfredo Escobar Age: 59 yrs Sex: Male : 1960 Arrival Date: 09/11/2020 Time: 18:37 Bed 26 Private MD: DANUTA Physician Theodore Vyas HPI: 09/11 20:52 This 59 yrs old Male presents to ER via Ambulatory with complaints of Post mh7 Surgical Pain. 20:52 The patient presents with pain that is acute, with no known mechanism of injury, and mh7 tenderness. The symptoms are located in the left subscapular area. Onset: The symptoms/episode began/occurred 3 week(s) ago. The pain does not radiate. Associated signs and symptoms: Pertinent positives: nausea, Pertinent negatives: abdominal pain, chest pain, constipation, dysuria, fever, headache, hematuria, incontinence, numbness, tingling, urinary retention, vomiting, weakness. The problem was sustained States pain started after having colonoscopy 08/17/20. Modifying factors: The patient symptoms are alleviated by nothing, the patient symptoms are aggravated by movement. Severity of symptoms: At their worst the symptoms were moderate, 14 day(s) ago, in the emergency department the symptoms are unchanged. Historical: - Allergies: 19:29 Bactrim; rr5 19:29 Iodinated Contrast Media - IV Dye; rr5 19:29 Iodine; rr5 19:29 Keflex; rr5 19:29 Latex, Natural Rubber; rr5 19:29 Levaquin; rr5 19:29 promethazine HCl; rr5 19:29 Toradol; rr5 - PMHx: 19:29 Anxiety; Arthritis; Crohn's; GERD; Pancreatitis; PTSD; rr5 - PSHx: 19:29 polyps removal; hiatal hernia repair; rr5 - Immunization history:: Adult Immunizations up to date, Client reports having NOT received the Covid vaccine. - Social history:: Smoking status: unknown Patient/guardian denies using alcohol, street drugs. ROS: 20:52 Constitutional: Negative for fever, chills, and weight loss, Eyes: Negative for injury, mh7 pain, redness, and discharge, ENT: Negative for injury, pain, and discharge, Neck: Negative for injury, pain, and swelling, Cardiovascular: Negative for chest pain, palpitations, and edema, Respiratory: Negative for shortness of breath, cough, wheezing, and pleuritic chest pain, : Negative for injury, bleeding, discharge, and swelling, MS/Extremity: Negative for injury and deformity, Skin: Negative for injury, rash, and discoloration, Neuro: Negative for headache, weakness, numbness, tingling, and seizure, Psych: Negative for depression, anxiety, suicide ideation, homicidal ideation, and hallucinations, Allergy/Immunology: Negative for hives, rash, and allergies, Endocrine: Negative for neck swelling, polydipsia, polyuria, polyphagia, and marked weight changes, Hematologic/Lymphatic: Negative for swollen nodes, abnormal bleeding, and unusual bruising. Exam: 20:52 Constitutional: This is a well developed, well nourished patient who is awake, alert, mh7 and in no acute distress. Head/Face: Normocephalic, atraumatic. Eyes: Pupils equal round and reactive to light, extra-ocular motions intact. Lids and lashes normal. Conjunctiva and sclera are non-icteric and not injected. Cornea within normal limits. Periorbital areas with no swelling, redness, or edema. Neck: Trachea midline, no thyromegaly or masses palpated, and no cervical lymphadenopathy. Supple, full range of motion without nuchal rigidity, or vertebral point tenderness. No Meningismus. Chest/axilla: Normal chest wall appearance and motion. Nontender with no deformity. No lesions are appreciated. Cardiovascular: Regular rate and rhythm with a normal S1 and S2. No gallops, murmurs, or rubs. Normal PMI, no JVD. No pulse deficits. Respiratory: Lungs have equal breath sounds bilaterally, clear to auscultation and percussion. No rales, rhonchi or wheezes noted. No increased work of breathing, no retractions or nasal flaring. Abdomen/GI: Soft, non-tender, with normal bowel sounds. No distension or tympany. No guarding or rebound. No evidence of tenderness throughout. 20:52 Skin: Warm, dry with normal turgor. Normal color with no rashes, no lesions, and no evidence of cellulitis. 20:52 Back: pain, that is moderate, of the left subscapular area, ROM is painful, with all movement, normal spinal alignment noted, CVA tenderness, is absent, vertebral tenderness, is not appreciated, muscle spasm, is not present, Straight leg raises: of both lower extremities does not illicit pain. 20:52 MS/ Extremity: Pulses equal, no cyanosis. Neurovascular intact. Full, normal range [facility] of motion. Neuro: Awake and alert, GCS 15, oriented to person, place, time, and situation. Cranial nerves II-XII grossly intact. Motor strength 5/5 in all extremities. Sensory grossly intact. Cerebellar exam normal. Normal gait. Psych: Awake, alert, with orientation to person, place and time. Behavior, mood, and affect are within normal limits. Vital Signs: 19:23 BP 149 / 96; Pulse 60; Resp 18; Temp 98.7; Pulse Ox 99% ; Weight 81.65 kg; Height 5 ft. rr5 10 in. (177.80 cm); Pain 10/10; 20:25 BP 147 / 99; Pulse 61; Resp 16 S; Pulse Ox 100% on R/A; Pain 10/10; mg2 22:11 BP 139 / 75; Pulse 62; Resp 16 S; Pulse Ox 99% on R/A; Pain 7/10; bb 22:40 BP 142 / 79; Pulse 65; Resp 19; Temp 98; Pulse Ox 99% ; rr5 19:23 Body Mass Index 25.83 (81.65 kg, 177.80 cm) rr5 MDM: 22:22 Differential diagnosis: chronic back pain, Fracture Rib pain, Musculoskeletal Pain. [facility] Data reviewed: vital signs, nurses notes, old medical records, lab test result(s), cardiac enzymes, CBC, electrolytes, EKG, radiologic studies, plain films. Data interpreted: Pulse oximetry: on room air is 99 %. Interpretation: normal. 22:23 Counseling: I had a detailed discussion with the patient and/or guardian regarding: the [facility] historical points, exam findings, and any diagnostic results supporting the discharge/admit diagnosis, the presence of at least one elevated blood pressure reading (>120/80) during this emergency department visit, lab results, radiology results, the need for outpatient follow up, to return to the emergency department if symptoms worsen or persist or if there are any questions or concerns that arise at home. Response to treatment: the patient's symptoms have resolved after treatment, the patient's blood pressure is in an acceptable range, mental status has returned to baseline, the patient no longer shows bradycardia, the patient is not short of breath, the patient is not tachycardic, the patient's pain is gone, the patient's temperature has normalized. 22:25 Patient medically screened. [facility] 09/11 20:35 Order name: Basic Metabolic Panel [facility] 09/11 20:35 Order name: CBC with Diff [facility] 09/11 20:35 Order name: LFT's [facility] 09/11 20:35 Order name: Magnesium [facility] 09/11 20:35 Order name: NT PRO-BNP [facility] 09/11 20:35 Order name: PT-INR [facility] 09/11 20:35 Order name: Troponin (emerg Dept Use Only) [facility] 09/11 20:35 Order name: CPK [facility] 09/11 20:36 Order name: Basic Metabolic Panel; Complete Time: 21:50 EDMS 09/11 20:36 Order name: CBC with Automated Diff; Complete Time: 21:50 EDMS 09/11 20:36 Order name: Liver (Hepatic) Function; Complete Time: 21:50 EDMS 09/11 20:36 Order name: Magnesium; Complete Time: 21:50 EDMS 09/11 20:36 Order name: NT PRO-BNP; Complete Time: 21:50 EDMS 09/11 20:36 Order name: Protime (+INR); Complete Time: 21:50 EDMS 09/11 20:35 Order name: EKG; Complete Time: 20:36 [facility] 09/11 20:35 Order name: Cardiac monitoring; Complete Time: 20:54 [facility] 09/11 20:35 Order name: EKG - Nurse/Tech; Complete Time: 20:54 [facility] 09/11 20:35 Order name: IV Saline Lock; Complete Time: 20:47 [facility] 09/11 20:35 Order name: Labs collected and sent; Complete Time: 20:47 [facility] 09/11 20:35 Order name: O2 Per Protocol; Complete Time: 20:54 [facility] 09/11 20:35 Order name: O2 Sat Monitoring; Complete Time: 20:54 [facility] 09/11 20:36 Order name: Troponin (Emerg Dept Use Only); Complete Time: 21:50 EDMS 09/11 20:36 Order name: Creatine Phosphokinase; Complete Time: 21:50 EDMS 09/11 20:36 Order name: Ribs Left XRAY; Complete Time: 21:50 mh7 09/11 20:36 Order name: Chest Single View XRAY; Complete Time: 21:50 mh7 09/11 20:38 Order name: Lipase; Complete Time: 21:50 mh7 Administered Medications: 20:53 Drug: morphine 2 mg Route: IVP; Site: right antecubital; mg2 21:50 Follow up: Response: No adverse reaction; Pain is decreased; RASS: Alert and Calm (0) rr5 20:54 Drug: NS 0.9% 1000 ml Route: IV; Rate: 1000 ml; Site: right antecubital; mg2 23:29 Follow up: Response: No adverse reaction; IV Status: Order to discontinue infusion; IV bb Intake: 850ml 20:54 Drug: Zofran (Ondansetron) 4 mg Route: IVP; Site: right antecubital; mg2 21:50 Follow up: Response: No adverse reaction rr5 Disposition: 09/11/20 22:25 Discharged to Home. Impression: Back Pain, Upper, Left, Musculoskeletal Pain, Nausea. - Condition is Stable. - Discharge Instructions: Musculoskeletal Pain, Nausea, Adult, Back Pain, Adult, [id number]. - Prescriptions for Zofran ODT 4 mg Oral tablet,disintegrating - place 1 tablet by TRANSLINGUAL route every 8 hours As needed; 6 tablet. - Medication Reconciliation Form, Thank You Letter, Antibiotic Education, Prescription Opioid Use form. - Follow up: Private Physician; When: 1 - 2 days; Reason: Worsening of condition, Recheck today's complaints, Continuance of care, Re-evaluation by your physician. - Problem is an ongoing problem. - Symptoms have improved. Signatures: Dispatcher [employer] EDMS Gabrielle Castro RN RN bb Kirit Crespo RN RN mg2 Grover De La Rosa RN RN rr5 Theodore Vyas MD MD mh7 Corrections: (The following items were deleted from the chart) 23:30 22:25 09/11/2020 22:25 Discharged to Home. Impression: Back Pain, Upper, Left; bb Musculoskeletal Pain; Nausea. Condition is Stable. Forms are Medication Reconciliation Form, Thank You Letter, Antibiotic Education, Prescription Opioid Use. Follow up: Private Physician; When: 1 - 2 days; Reason: Worsening of condition, Recheck today's complaints, Continuance of care, Re-evaluation by your physician. Problem is an ongoing problem. Symptoms have improved. mh7
--- NOTE | 2020-09-11 22:26 | ER ---
Nurse's Notes [facility] Name: Alfredo Escobar Age: 59 yrs Sex: Male : 1960 Arrival Date: 09/11/2020 Time: 18:37 Bed 26 Private MD: Diagnosis: Back Pain, Upper, Left;Musculoskeletal Pain;Nausea Presentation: 09/11 19:23 Chief complaint: Patient states: i had a procedure removal of polyps 3 weeks ago then rr5 after that I have this pain on my left mid back, i feel my abdomen feels so tight and i feel nauseous and loss of appetite. denies burning sensation when urination. denies trauma. Coronavirus screen: Client denies travel out of the [place] in the last 14 days. At this time, the client does not indicate any symptoms associated with coronavirus-19. Ebola Screen: Patient negative for fever greater than or equal to 101.5 degrees Fahrenheit, and additional compatible Ebola Virus Disease symptoms Patient denies exposure to infectious person. Patient denies travel to an Ebola-affected area in the 21 days before illness onset. Initial Sepsis Screen: Does the patient meet any 2 criteria? No. Patient's initial sepsis screen is negative. Does the patient have a suspected source of infection? No. Patient's initial sepsis screen is negative. Risk Assessment: Do you want to hurt yourself or someone else? Patient reports no desire to harm self or others. Onset of symptoms was August 17, 2020. 19:23 Method Of Arrival: Ambulatory rr5 19:23 Acuity: BUCKY 3 rr5 Historical: - Allergies: 19:29 Bactrim; rr5 19:29 Iodinated Contrast Media - IV Dye; rr5 19:29 Iodine; rr5 19:29 Keflex; rr5 19:29 Latex, Natural Rubber; rr5 19:29 Levaquin; rr5 19:29 promethazine HCl; rr5 19:29 Toradol; rr5 - PMHx: 19:29 Anxiety; Arthritis; Crohn's; GERD; Pancreatitis; PTSD; rr5 - PSHx: 19:29 polyps removal; hiatal hernia repair; rr5 - Immunization history:: Adult Immunizations up to date, Client reports having NOT received the Covid vaccine. - Social history:: Smoking status: unknown Patient/guardian denies using alcohol, street drugs. Screenin:25 Abuse screen: Denies threats or abuse. Nutritional screening: No deficits noted. mg2 Tuberculosis screening: No symptoms or risk factors identified. Fall Risk None identified. Assessment: 20:25 General: Appears uncomfortable, Behavior is cooperative, anxious. Pain: Complains of mg2 pain in left subscapular area Pain currently is 10 out of 10 on a pain scale. Neuro: Level of Consciousness is awake, alert, obeys commands, Oriented to person, place, time, situation. Cardiovascular: Capillary refill < 3 seconds Patient's skin is warm and dry. Respiratory: Respiratory effort is even, unlabored, Respiratory pattern is regular, Breath sounds are clear bilaterally. GI: Abdomen is non-distended. Derm: Skin is pink, warm \T\ dry. Musculoskeletal: Circulation, motion, and sensation intact. 21:17 Reassessment: pt in X-ray. bb 22:11 Reassessment: Patient is alert, oriented x 3, equal unlabored respirations, skin bb warm/dry/pink. Patient states feeling better. 22:39 Reassessment: Patient appears in no apparent distress at this time. Patient is alert, rr5 oriented x 3, equal unlabored respirations, skin warm/dry/pink. discharge instruction given and explained without complaints made. awaiting for the IVF to consume then discharge as requested by the patient. 23:29 Reassessment: Patient is alert, oriented x 3, equal unlabored respirations, skin bb warm/dry/pink. pt verbalized understanding of and agrees to plan of care pt ambulated with steady gait to exit accompanied by family Patient states feeling better. Vital Signs: 19:23 BP 149 / 96; Pulse 60; Resp 18; Temp 98.7; Pulse Ox 99% ; Weight 81.65 kg; Height 5 ft. rr5 10 in. (177.80 cm); Pain 10/10; 20:25 BP 147 / 99; Pulse 61; Resp 16 S; Pulse Ox 100% on R/A; Pain 10/10; mg2 22:11 BP 139 / 75; Pulse 62; Resp 16 S; Pulse Ox 99% on R/A; Pain 7/10; bb 22:40 BP 142 / 79; Pulse 65; Resp 19; Temp 98; Pulse Ox 99% ; rr5 19:23 Body Mass Index 25.83 (81.65 kg, 177.80 cm) rr5 ED Course: 18:37 Patient arrived in ED. ds1 19:27 Triage completed. rr5 19:29 Arm band placed on left wrist. rr5 20:07 Theodore Vyas MD is Attending Physician. mh7 20:15 Kirit Crespo, RN is Primary Nurse. mg2 20:25 Patient has correct armband on for positive identification. Bed in low position. Call mg2 light in reach. Side rails up X 1. Pulse ox on. NIBP on. 20:46 Inserted saline lock: 20 gauge in right forearm, using aseptic technique. Blood rr5 collected. 20:54 No provider procedures requiring assistance completed. mg2 21:25 Ribs Left XRAY In Process Unspecified. EDMS 21:25 Chest Single View XRAY In Process Unspecified. EDMS 22:11 IV is patent, is intact, with fluids infusing freely. bb 23:28 IV discontinued, intact, bleeding controlled, No redness/swelling at site. Pressure bb dressing applied. Administered Medications: 20:53 Drug: morphine 2 mg Route: IVP; Site: right antecubital; mg2 21:50 Follow up: Response: No adverse reaction; Pain is decreased; RASS: Alert and Calm (0) rr5 20:54 Drug: NS 0.9% 1000 ml Route: IV; Rate: 1000 ml; Site: right antecubital; mg2 23:29 Follow up: Response: No adverse reaction; IV Status: Order to discontinue infusion; IV bb Intake: 850ml 20:54 Drug: Zofran (Ondansetron) 4 mg Route: IVP; Site: right antecubital; mg2 21:50 Follow up: Response: No adverse reaction rr5 Intake: 23:29 IV: 850ml; Total: 850ml. bb Outcome: 22:25 Discharge ordered by . mh7 22:41 Condition: stable rr5 22:41 Discharge instructions given to patient, Instructed on discharge instructions, follow up and referral plans. medication usage, Demonstrated understanding of instructions, follow-up care, medications, Prescriptions given X 1. 23:30 Discharged to home ambulatory, with family. bb 23:30 Patient left the ED. bb Signatures: Dispatcher [facility] Charmaine Hartman ds1 Gabrielle Castro, MARY RN bb Kirit Crespo, RN RN mg2 Grover De La Rosa RN RN rr5 Theodore Vyas MD MD mh7 Corrections: (The following items were deleted from the chart) 19:31 19:23 Chief complaint: Patient states: i had a procedure removal of polyps 3 weeks ago rr5 then after that I have this pain on my left mid back, i feel my abdomen feels so tight and i feel nauseous and loss of appetite. denies burning sensation when urination rr5 22:41 22:39 Reassessment: Patient appears in no apparent distress at this time. Patient is rr5 alert, oriented x 3, equal unlabored respirations, skin warm/dry/pink. discharge instruction given and explained without complaints made. rr5
--- NOTE | 2020-09-12 10:16 | EKG ---
Test Date: 2020-09-11 Test Time: 20:54:25 Stable Manager: LUCY MEASUREMENT RESULTS: Intervals: Rate: 53 WA: 122 QRSD: 76 QT: 418 QTc: 392 [place]: P: 42 WA: 122 QRS: 26 T: 34 INTERPRETIVE STATEMENTS: Sinus bradycardia Otherwise normal ECG Compared to ECG 09/01/2020 21:42:52 Sinus rhythm no longer present Electronically Signed On 09-12-20 10:15:09 CDT by Christian Dooley
[2020-09-12 12:48] VITALS: O2SAT 99
[2020-09-12 12:50] VITALS: BP 142/79; TEMP 98
== END 2020-09-11 23:30 | disposition home or self-care (01) ==
LOC: ER 18:34
DX: M79.18 Myalgia, other site (principal); M54.9 Dorsalgia, unspecified; Z98.890 Other specified postprocedural states; Z88.1 Allergy status to other antibiotic agents; Z88.5 Allergy status to narcotic agent; Z88.8 Allergy status to other drugs, medicaments and biological substances; Z91.040 Latex allergy status; Z91.041 Radiographic dye allergy status; Z91.048 Other nonmedicinal substance allergy status
CPT/HCPCS: 96361; 93005; 85025; 80048; 36415; 83735; 82550; 85610; 80076; 84484; 83690; 83880; 71045; 71100; 96375; 96374; 99284; J7030; J2405

== ENCOUNTER 2020-10-20 22:50 | Emergency (ER) | payer OTHER ==
--- OUTSIDE RECORDS SUMMARY | 2020-10-20 22:52 | XMS REPORT | Continuity of Care Document ---
:1960 Author Organization [facility] t Address [address] [place] [address] Care Team Providers Name Role Phone Theo Hernandez NP Attending Clinician Mau Armstrong Attending Clinician Problems Condition Condition Condition Status Onset Resolution Last Treating Co mments Source Name Details Category Date Date Treatment Clinician Date Hypertensi Problem Active 2019-04-22 M emoria ve 01:06:38 l disorder, [place] systemic Hypertensi arterial ve (disorder) disorder, systemic arterial (disorder) Active Problem 04/22/2019 [facility] Memory Problem Active 2019-04-22 Memor ia impairment 01:06:38 l (finding) Memory Maggy nn impairment (finding) Active Problem 04/22/2019 [facility] Neck pain Problem Active 2019-04-22 Me moria (finding) 01:06:38 l Neck Evan pain (finding) Active Problem 04/22/2019 [facility] Paresthesi Problem Active 2019-04-22 M emoria a 01:06:38 l (finding) [place] Paresthesi a (finding) Active Problem 04/22/2019 [facility] [...] [facility] Phenerga Adverse Active hives [facility] Bactrim Adverse Active rash [facility] Levaquin Adverse Active stops [facility] Social History Smoking Status Start Date Stop Date Source Social History 2019-03-28 18:18:16 2019-03-28 18:18:16 Nona Gordon Medications Ordered Filled Start Stop Current Ordering Indication Dosage Frequency Signature Comments Components Source Medication Medication Date Date Medication? Clinician (SIG) Name Name valsartan 2019 Yes 0 Memoria 40 mg oral 0-24 Refill(s) l tablet 19:12: [place] 00 pantoprazol Yes 40 mg = 1 M emoria e 40 mg 4-24 tab, PO, l oral 19:00: Daily, # [place] enteric 00 30 tab, 0 coated Refill(s) tablet carvedilol Yes 25 mg = 1 Me moria 25 mg oral 4-24 tab, PO, l tablet 19:00: BID, # 180 Maggy nn 00 tab, 0 Refill(s) Acetaminoph 2019- Yes 1 tab, PO, Memoria en 325 MG / 4-24 QID, 0 l Hydrocodone 19:00: Refill(s) H ermann Bitartrate 00 10 MG Oral Tablet [[place] 10/325] Clonazepam 2018- Yes 2 mg = 1 Mem oria 2 MG Oral 4-24 tab, PO, l Tablet 19:00: BID, # 60 Jun n [Klonopin] 00 tab, 0 Refill(s) Aspirin 81 Aspirin 81 2017- Yes Esthela [address] [facility]12 [facility] Albuterol Albuterol 2015- Yes Esthela [address] [facility] Sulfate HFA Sulfate HFA 1-25 [facility] Clonazepam Clonazepam Yes Esthela TAKE [address] [facility] TABLET BY [facility]TH [facility] Carvedilol Carvedilol Yes Esthela take [address] [facility] tablet by [facility] twice a l day [facility] Famotidine Famotidine Yes Esthela [address] [facility] at bedtime [facility] Protonix Protonix Yes Esthela [address] [facility] Dicyclomine Dicyclomine Yes Esthela [address] [facility] HCl HCl [facility] Ventolin Ventolin Yes Esthela [address] HFA HFA [facility] Valsartan Valsartan Yes Esthela [address] [facility] Hydrocodone Hydrocodone Yes Esthela (Schedule [facility] -Acetaminop -Acetaminop [facility] II [facility]) [facility] hen TK 1 T PO [facility] TID l [facility] Creon Creon 2019- No Esthela take by [facility] 07[facility]21 [facility] mouth 1 [facility] - 00:00 capsule 3 [...] 18:51:00 Gricel Wright Weight 2018-09-26 18:51:00 [facility] [place] Height 2018-09-26 18:51:00 172.72 cm [facility] [place] Heart Rate 2018-09-26 18:51:00 [facility] [place] Respitory Rate 2018-09-26 18:51:00 Gricel arauz Evan Systolic (mm Hg) 2018-09-26 18:51:00 Lucio Fernándezann Diastolic (mm Hg) 2018-09-26 18:51:00 Mem orial Evan Procedures This patient has no known procedures. Encounters Start End Encounter Admission Attending Care Care Encounter Source Date/Time Date/Time Type Type Clinicians Facility Department ID 2020-10-15 2020-10-15 Out[facility] [id number] [facility] 2020-10-07 2020-10-07 [facility] [id number] [facility] 2020-09-07 2020-09-07 [facility] [id number] [facility] 2020-08-06 2020-08-06 Out[facility] [id number] [facility] 2020-07-09 2020-07-09 Out[facility] [id number] [facility] 2020-06-09 2020-06-09 [id number] 2020-05-21 2020-05-21 Outpatient [facility] [id number] [facility] 2020-05-14 2020-05-14 Out[facility] [id number] [facility] 2020-04-28 2020-04-28 [facility] [id number] [facility] 2020-04-16 2020-04-16 [facility] [id number] [facility] 2020-03-18 2020-03-18 [facility] [id number] [facility] 2020-03-18 2020-03-18 [facility] [id number] [facility] 2020-03-10 2020-03-10 [facility] [id number] [facility] 2019-07-21 2019-07-21 [facility] [id number] 18:06:23 22:09:00 Camila Layton [id number] [place] [id number] [place] [id number] 2019-07-15 2019-07-15 [facility] [id number] [facility] 15:01:00 15:01:00 t Specialty/U Martha kes - Specialty rology [facility] /Urology Clinic l Clinic Outpati ent Clinics 2019-07-09 2019-07-09 [facility] [id number] [facility] 16:46:00 16:46:00 t Specialty/U Martha kes - Specialty rology [facility] /Urology Clinic l Clinic Outpati ent Clinics 2019-07-08 2019-07-08 [facility] [id number] [facility] 14:51:00 14:51:00 t Specialty/U Martha kes - Specialty rology [facility] /Urology Clinic l Clinic Outpati ent Clinics 2019-07-08 2019-07-08 [facility] [id number] 08:00:00 08:00:00 t Specialty/U Martha kes - Specialty rology [facility] /Urology Clinic l Clinic Outpati ent Clinics 2019-07-04 2019-07-04 [facility] [id number] [address] 13:00:00 13:00:00 t Specialty/U Martha kes - Specialty rology [facility] a /Urology Clinic l Clinic Outpati ent Clinics 2019-07-02 2019-07-02 [facility] [id number] 14:32:00 14:32:00 t [facility] Outpati ent Clinics 2019-06-27 2019-06-27 [facility] [id number] 14:40:00 14:40:00 t [facility] Outpati ent Clinics 2019-06-03 2019-06-03 [facility] [id number] [facility] 11:17:00 11:17:00 t [facility] Outpati ent Clinics 2019-04-18 2019-04-19 Outpatient MHMISCHER MISCHER [id number] 12:37:59 23:59:59 2019-04-11 2019-04-11 [facility] [id number] 15:30:00 15:30:00 P[place] 03 Mau 2019-04-09 2019-04-09 [facility] [id number] 15:20:00 15:20:[address] [facility] Outpati ent Clinics 2019-04-01 2019-04-02 Outpatient MHMISCHER MISCHER [id number] 08:58:44 23:59:59 2019-03-28 2019-03-28 Out[facility] [id number] 13:00:00 23:59:59 Pio Mau 2019-02-19 2019-02-19 [facility] [id number] [facility] 14:40:00 14:40:00 t [facility] Outpati ent Clinics 2018-12-11 2018-12-11 [facility] [id number] 11:21:00 11:21:00 t [facility] Outpati ent Clinics 2018-11-19 2018-11-19 [facility] [id number] 14:40:00 14:40:00 t [facility] Medicine Outpati ent Clinics 2018-10-31 2018-10-31 Outpatient MARIAH Armstrong [facility] [id number] 13:45:00 13:45:00 [place] M[place] 2018-09-26 2018-09-26 [id number] 13:30:00 23:59:59 [place] M[place] 2018-09-17 2018-09-17 [facility] [id number] [facility] 16:00:00 16:00:00 [facility] Medicine Outpati ent Clinics 2018-08-02 2018-08-02 [facility] [id number] [facility] 16:07:00 16:07:00 t [employer] [place] [facility] Medicine Outpati ent Clinics 2018-08-02 2018-08-02 [facility] [id number] 16:05:00 16:05:00 t [facility] Medicine Outpati ent Clinics 2018-06-18 2018-06-18 [facility] [id number] [facility] 16:00:00 16:00:00 [facility] Medicine Outpati ent Clinics 2018-01-18 2018-01-18 [facility] [id number] [facility] 14:00:00 14:00:00 [facility] Medicine Outpati ent Clinics 2017-09-19 2017-09-19 [facility] [id number] [facility] 09:33:00 09:33:00 [facility] Medicine Outpati ent Clinics 2017-09-14 2017-09-14 [facility] [id number] 13:00:00 13:00:00 [facility] Medicine Outpati ent Clinics 2017-09-12 2017-09-12 [facility] [id number] [facility] 11:05:00 11:05:[address] [facility] 2017-08-29 2017-08-29 Outpatient Malena Preston [id number] [facility] 15:30:00 15:30:00 [facility] ent Clinics Results This patient has no known results.
[2020-10-21] MEDS ORDERED: MORPHINE 4 MG/ML SYR ONE (00:51)
[2020-10-21] MEDS ORDERED: ONDANSETRON 4 MG/2 ML VIAL ONE (00:51)
[2020-10-21 01:07] LABS: Absolute Lymphocytes (CBC) 2.5 K/uL (0.7-4.9); Basophils % 0.6 % (0-1.3); Hematocrit 42.2 % (39.6-49.0); Lymphocytes % 34.2 % (15.3-44.8); MPV 8.2 fL (7.6-11.3); RBC Red Blood Cell Count 4.72 M/uL (4.33-5.43)
[2020-10-21 01:08] LABS: Protime INR 1.08
[2020-10-21 01:21] LABS: ALT/SGPT 23 U/L (12-78); AST/SGOT 12 U/L (15-37); Albumin 3.6 g/dL (3.4-5.0); Alkaline Phosphatase 49 U/L (45-117); BUN Blood Urea Nitrogen 14 mg/dL (7-18); Bicarbonate 33 mmol/L (21-32); Bilirubin Direct < 0.1 mg/dL (0-0.2); Bilirubin Total 0.3 mg/dL (0.2-1.0); Glucose Level 88 mg/dL (74-106); Lipase 191 U/L (73-393); Magnesium 2.6 mg/dL (1.8-2.4); NT PRO-BNP 37 pg/mL (<125); Potassium 4.2 mmol/L (3.5-5.1); Protein, Total 7.1 g/dL (6.4-8.2); Sodium Level 142 mmol/L (136-145); Troponin (Emerg Dept Use Only) < 0.02 ng/mL (0.0-0.045)
[2020-10-21] MEDS ORDERED: NA CHLORIDE 0.9% 1,000 ML ONE (01:40)
[2020-10-21 01:41] LABS: Urine Blood Negative (Negative); Urine Glucose Negative (Negative); Urine Protein Negative (Negative); Urine Specific Gravity 1.025 (1.005-1.030)
--- NOTE | 2020-10-21 02:53 | EDPHYS ---
Physician Documentation [facility] Name: Alfredo Escobar Age: 60 yrs Sex: Male : 1960 Arrival Date: 10/20/2020 Time: 22:51 Bed 7 Private MD: Pal Collins HPI: 10/21 00:07 This 60 yrs old Male presents to ER via Ambulatory with complaints of Rectal jmm Bleeding. 00:07 The patient presents with abdominal pain abdominal distention. Onset: The jmm symptoms/episode began/occurred gradually, 1 week(s) ago. The symptoms radiate to chest, right leg and left leg. Associated signs and symptoms: Pertinent positives: shortness of breath, Pertinent negatives: fever. The symptoms are described as achy, sharp. Modifying factors: The symptoms are alleviated by nothing, the symptoms are aggravated by nothing. The patient has experienced similar episodes in the past. Patient also complains of frequent urination, low grade fever. Pain radiates into his chest and down his legs. . Historical: - Allergies: 10/20 23:15 Bactrim; rr5 23:15 Iodinated Contrast Media - IV Dye; rr5 23:15 Iodine; rr5 23:15 Keflex; rr5 23:15 Latex, Natural Rubber; rr5 23:15 Levaquin; rr5 23:15 promethazine HCl; rr5 23:15 Toradol; rr5 - Home Meds: 23:15 calcipotriene 0.005 % Topical oint 2 times per day [Active]; carvedilol 25 mg Oral tab rr5 2 times per day [Active]; Creon 92281 units Oral 3 times per day [Active]; clonazepam 2 mg Oral tab 2 times per day [Active]; [place] 10-325 mg Oral tab twice a day [Active]; pantoprazole 40 mg Oral TbEC once daily [Active]; Ventolin HFA 90 mcg/actuation Nebulizer HFAA 2 puffs every 8 hours [Active]; - PMHx: 23:15 Anxiety; Arthritis; Crohn's; GERD; Pancreatitis; PTSD; rr5 - PSHx: 23:15 Hernia repair; hydrocele; polyps removal; rr5 - Immunization history:: Adult Immunizations up to date. - Social history:: Smoking status: unknown. ROS: 10/21 00:07 Constitutional: Negative for fever, chills, and weight loss, Cardiovascular: Negative [facility] for chest pain, palpitations, and edema, Respiratory: Negative for shortness of breath, cough, wheezing, and pleuritic chest pain. Abdomen/GI: Positive for abdominal pain. : Positive for urinary symptoms. All other systems are negative. Exam: 00:07 Constitutional: This is a well developed, well nourished patient who is awake, alert, jmm and in no acute distress. Head/Face: atraumatic. Eyes: EOMI, no conjunctival erythema appreciated ENT: Moist Mucus Membranes Neck: Trachea midline, Supple Chest/axilla: Normal chest wall appearance and motion. Cardiovascular: Regular rate and rhythm. No edema appreciated Respiratory: Normal respirations, no respiratory distress appreciated 00:07 Back: Normal ROM Skin: General appearance color normal MS/ Extremity: Moves all extremities, no obvious deformities appreciated, no edema noted to the lower extremities Neuro: Awake and alert, normal gait Psych: Behavior is normal, Mood is normal, Patient is cooperative and pleasant 00:07 Abdomen/GI: Inspection: distension, that is mild, Bowel sounds: normal, Palpation: soft, mild abdominal tenderness, in all quadrants. 02:03 ECG was reviewed by the Attending Physician. [facility] Vital Signs: 10/20 23:11 BP 124 / 87; Pulse 63; Resp 19; Temp 98; Pulse Ox 99% ; Weight 77.56 kg; Height 5 ft. 9 rr5 in. (175.26 cm); Pain 8/10; 10/21 00:47 BP 142 / 83; Pulse 54; Resp 17 S; Pulse Ox 98% on R/A; ad5 02:00 BP 112 / 54; Pulse 56; Resp 16; Pulse Ox 96% on R/A; jb4 03:00 BP 125 / 66; Pulse 56; Resp 16; Pulse Ox 98% on R/A; jb4 10/20 23:11 Body Mass Index 25.25 (77.56 kg, 175.26 cm) rr5 MDM: 00:07 Patient medically screened. [facility] 01:21 Data reviewed: vital signs, nurses notes. Transition of care: After a detail discussion [facility] of the patient's case, care is transferred to Pal Ferreira MD. 10/21 00:09 Order name: Basic Metabolic Panel [facility] 10/21 00:09 Order name: CBC with Diff [facility] 10/21 00:09 Order name: LFT's [facility] 10/21 00:09 Order name: Magnesium [facility] 10/21 00:09 Order name: NT PRO-BNP [facility] 10/21 00:09 Order name: PT-INR [facility] 10/21 00:09 Order name: Troponin (emerg Dept Use Only) [facility] 10/21 00:09 Order name: Lipase [facility] 10/21 01:12 Order name: Protime (+INR); Complete Time: 01:20 [facility] 10/21 01:13 Order name: CBC with Automated Diff; Complete Time: 01:20 [facility] 10/21 01:21 Order name: Basic Metabolic Panel; Complete Time: 02:14 [facility] 10/21 01:21 Order name: Liver (Hepatic) Function; Complete Time: 02:14 [facility] 10/21 01:21 Order name: Troponin (Emerg Dept Use Only); Complete Time: 02:14 [facility] 10/21 01:21 Order name: NT PRO-BNP; Complete Time: 02:14 [facility] 10/21 00:09 Order name: XRAY Chest (1 view) [facility] 10/21 00:09 Order name: EKG; Complete Time: 00:10 [facility] 10/21 00:09 Order name: Cardiac monitoring; Complete Time: 00:44 [facility] 10/21 00:09 Order name: EKG - Nurse/Tech; Complete Time: 01:20 [facility] 10/21 00:09 Order name: IV Saline Lock; Complete Time: 00:44 [facility] 10/21 00:09 Order name: Labs collected and sent; Complete Time: 00:44 [facility] 10/21 00:09 Order name: O2 Sat Monitoring; Complete Time: 00:44 [facility] 10/21 00:09 Order name: CT Abd/Pelvis - Without Contrast [facility] 10/21 00:13 Order name: Urine Dipstick-Ancillary (obtain specimen); Complete Time: 02:19 [facility] 10/21 01:21 Order name: Magnesium; Complete Time: 02:14 [facility] 10/21 01:21 Order name: Lipase; Complete Time: 02:14 [facility] 10/21 01:41 Order name: Urine Dipstick-Ancillary; Complete Time: 02:14 EDMS EC:03 Rate is 48 beats/min. Rhythm is regular. QRS [place] is Normal. GA interval is normal. QRS mack interval is normal. QT interval is normal. No Q waves. T waves are Normal. No ST changes noted. Clinical impression: Sinus bradycardia and No evidence of ischemia. Interpreted by me. Reviewed by me. Administered Medications: 00:43 Drug: morphine 4 mg Route: IVP; Site: right antecubital; ad5 01:15 Follow up: Response: No adverse reaction; Marked relief of symptoms; Pain is decreased; jb4 RASS: Alert and Calm (0) 00:43 Drug: Zofran (Ondansetron) 4 mg Route: IVP; Site: right antecubital; ad5 01:15 Follow up: Response: No adverse reaction; Marked relief of symptoms jb4 01:26 Drug: NS 0.9% 1000 ml Route: IV; Rate: 1 bolus; Site: right antecubital; jb4 03:00 Follow up: Response: No adverse reaction; Marked relief of symptoms; IV Status: jb4 Completed infusion; IV Intake: 1000ml Disposition: 02:04 Co-signature as Attending Physician, Pal Ferreira MD I agree with the assessment and [facility] plan of care. Disposition: 10/21/20 02:53 Discharged to Home. Impression: Other abdominal pain, Dysuria, Chest pain, unspecified. - Condition is Stable. - Discharge Instructions: Abdominal Pain, Adult, Nonspecific Chest Pain, Dysuria. - Prescriptions for Bentyl 20 mg Oral Tablet - take 1 tablet by ORAL route every 6 hours As needed; 20 tablet. Pepcid 20 mg Oral Tablet - take 1 tablet by ORAL route every 12 hours for 10 days; 20 tablet. - Medication Reconciliation Form, Thank You Letter, Antibiotic Education, Prescription Opioid Use form. - Follow up: Eliu Rasmussen; When: 1 - 2 days; Reason: Recheck today's complaints, Continuance of care, Re-evaluation by your physician. - Problem is new. - Symptoms have improved. Signatures: Dispatcher [employer] Pal Leyva MD MD cha Mickail, Joel, PA PA jmm Bryson, James RN RN jb4 Grover De La Rosa RN RN rr5 Aleksandr Baird ad5 Corrections: (The following items were deleted from the chart) 00:44 00:09 Oxygen Per Protocol ordered. colin ad5 03:15 02:53 10/21/2020 02:53 Discharged to Home. Impression: Other abdominal pain; Dysuria; jb4 Chest pain, unspecified. Condition is Stable. Discharge Instructions: Abdominal Pain, Adult, Nonspecific Chest Pain, Dysuria. Forms are Medication Reconciliation Form, Thank You Letter, Antibiotic Education, Prescription Opioid Use. Follow up: Eliu Rasmussen; When: 1 - 2 days; Reason: Recheck today's complaints, Continuance of care, Re-evaluation by your physician. Problem is new. Symptoms have improved. mack
--- NOTE | 2020-10-21 02:53 | ER ---
Nurse's Notes [facility] Name: Alfredo Escobar Age: 60 yrs Sex: Male : 1960 Arrival Date: 10/20/2020 Time: 22:51 Bed 7 Private MD: Diagnosis: Other abdominal pain;Dysuria;Chest pain, unspecified Presentation: 10/20 23:11 Chief complaint: Patient states: a week ago started to have abdominal cramps, feels rr5 bloated, loose stool, nausea and rectal bleeding, it gets worse and worse now. Coronavirus screen: Client denies travel out of the [place] in the last 14 days. At this time, the client does not indicate any symptoms associated with coronavirus-19. Ebola Screen: Patient negative for fever greater than or equal to 101.5 degrees Fahrenheit, and additional compatible Ebola Virus Disease symptoms Patient denies exposure to infectious person. Patient denies travel to an Ebola-affected area in the 21 days before illness onset. Initial Sepsis Screen: Does the patient meet any 2 criteria? No. Patient's initial sepsis screen is negative. Does the patient have a suspected source of infection? Yes: Acute abdominal pain. Risk Assessment: Do you want to hurt yourself or someone else? Patient reports no desire to harm self or others. Onset of symptoms was October 13, 2020. 23:11 Method Of Arrival: Ambulatory rr5 23:11 Acuity: BUCKY 3 rr5 Historical: - Allergies: 23:15 Bactrim; rr5 23:15 Iodinated Contrast Media - IV Dye; rr5 23:15 Iodine; rr5 23:15 Keflex; rr5 23:15 Latex, Natural Rubber; rr5 23:15 Levaquin; rr5 23:15 promethazine HCl; rr5 23:15 Toradol; rr5 - Home Meds: 23:15 calcipotriene 0.005 % Topical oint 2 times per day [Active]; carvedilol 25 mg Oral tab rr5 2 times per day [Active]; Creon 57886 units Oral 3 times per day [Active]; clonazepam 2 mg Oral tab 2 times per day [Active]; [place] 10-325 mg Oral tab twice a day [Active]; pantoprazole 40 mg Oral TbEC once daily [Active]; Ventolin HFA 90 mcg/actuation Nebulizer HFAA 2 puffs every 8 hours [Active]; - PMHx: 23:15 Anxiety; Arthritis; Crohn's; GERD; Pancreatitis; PTSD; rr5 - PSHx: 23:15 Hernia repair; hydrocele; polyps removal; rr5 - Immunization history:: Adult Immunizations up to date. - Social history:: Smoking status: unknown. Screenin/19 00:44 Abuse screen: Denies threats or abuse. Denies injuries from another. Nutritional ad5 screening: No deficits noted. Tuberculosis screening: No symptoms or risk factors identified. Fall Risk None identified. Assessment: 00:45 General: Appears in no apparent distress. uncomfortable, Behavior is calm, cooperative, ad5 appropriate for age. Pain: Complains of pain in abdomen. Neuro: Level of Consciousness is awake, alert, obeys commands, Oriented to person, place, time, situation, Appropriate for age Programming Equipment Operator are equal bilaterally Moves all extremities. Gait is steady, Speech is normal, Facial symmetry appears normal. Cardiovascular: Denies chest pain, shortness of breath, Heart tones present Capillary refill < 3 seconds JVD is absent Patient's skin is warm and dry. Pulses are all present. Respiratory: No deficits noted. Airway is patent Respiratory effort is even, unlabored, Respiratory pattern is regular, symmetrical. Respiratory: Breath sounds are clear bilaterally. GI: Abdomen is round Bowel sounds present X 4 quads. Reports lower abdominal pain, upper abdominal pain, bloating, bloody stool, nausea. : No deficits noted. Reports urgency, urinary frequency. EENT: No deficits noted. Derm: No deficits noted. 01:45 Reassessment: Patient appears in no apparent distress at this time. Patient and/or jb4 family updated on plan of care and expected duration. Pain level reassessed. Patient is alert, oriented x 3, equal unlabored respirations, skin warm/dry/pink. 02:26 Reassessment: Patient appears in no apparent distress at this time. Patient and/or jb4 family updated on plan of care and expected duration. Pain level reassessed. Patient is alert, oriented x 3, equal unlabored respirations, skin warm/dry/pink. 03:14 Reassessment: Patient appears in no apparent distress at this time. Patient and/or jb4 family updated on plan of care and expected duration. Pain level reassessed. Patient is alert, oriented x 3, equal unlabored respirations, skin warm/dry/pink. Vital Signs: 10/20 23:11 BP 124 / 87; Pulse 63; Resp 19; Temp 98; Pulse Ox 99% ; Weight 77.56 kg; Height 5 ft. 9 rr5 in. (175.26 cm); Pain 8/10; 10/21 00:47 BP 142 / 83; Pulse 54; Resp 17 S; Pulse Ox 98% on R/A; ad5 02:00 BP 112 / 54; Pulse 56; Resp 16; Pulse Ox 96% on R/A; jb4 03:00 BP 125 / 66; Pulse 56; Resp 16; Pulse Ox 98% on R/A; jb4 10/20 23:11 Body Mass Index 25.25 (77.56 kg, 175.26 cm) rr5 ED Course: 10/20 22:51 Patient arrived in ED. bp1 23:13 Triage completed. rr5 23:15 Arm band placed on right wrist. rr5 23:57 Ho Kong PA is PHCP. jm 23:57 Pal Ferreira MD is Attending Physician. [facility] 10/21 00:44 Patient has correct armband on for positive identification. Bed in low position. Call ad5 light in reach. Side rails up X2. Pulse ox on. NIBP on. 00:44 No provider procedures requiring assistance completed. Inserted saline lock: 20 gauge ad5 in right antecubital area, using aseptic technique. 00:45 Initial lab(s) drawn, by md, sent to lab. ad5 01:05 Jose Luis Corea RN is Primary Nurse. jb4 02:53 Eliu Rasmussen MD is Referral Physician. mack 03:15 IV discontinued, intact, bleeding controlled, No redness/swelling at site. Pressure jb4 dressing applied. Administered Medications: 00:43 Drug: morphine 4 mg Route: IVP; Site: right antecubital; ad5 01:15 Follow up: Response: No adverse reaction; Marked relief of symptoms; Pain is decreased; jb4 RASS: Alert and Calm (0) 00:43 Drug: Zofran (Ondansetron) 4 mg Route: IVP; Site: right antecubital; ad5 01:15 Follow up: Response: No adverse reaction; Marked relief of symptoms jb4 01:26 Drug: NS 0.9% 1000 ml Route: IV; Rate: 1 bolus; Site: right antecubital; jb4 03:00 Follow up: Response: No adverse reaction; Marked relief of symptoms; IV Status: jb4 Completed infusion; IV Intake: 1000ml Intake: 03:00 IV: 1000ml; Total: 1000ml. jb4 Outcome: 02:53 Discharge ordered by . mack 03:15 Discharged to home ambulatory. jb4 03:15 Condition: stable 03:15 Discharge instructions given to patient, Instructed on discharge instructions, follow up and referral plans. medication usage, Demonstrated understanding of instructions, follow-up care, medications, Prescriptions given X 2. 03:15 Patient left the ED. jb4 Signatures: Pal Ferreira MD MD cha Mickail, Joel, PA PA jmm Bryson, James RN RN jb4 Grover De La Rosa RN RN rr5 Tisha Sanford Andrea ad5
[2020-10-21 03:23] VITALS: TEMP 98
[2020-10-21 03:27] VITALS: BP 125/66; O2SAT 98
--- NOTE | 2020-10-21 08:42 | EKG ---
Test Date: 2020-10-21 Test Time: 01:17:35 [facility] Specialty: JOHN MEASUREMENT RESULTS: Intervals: Rate: 48 [place]: 156 QRSD: 82 QT: 426 QTc: 380 [place]: P: 68 [place]: 156 QRS: 46 T: 27 INTERPRETIVE STATEMENTS: Marked sinus bradycardia with sinus arrhythmia Abnormal ECG Compared to ECG 09/11/2020 20:54:25 No significant changes Electronically Signed On 10-21-20 08:41:11 CDT by Christian Dooley
--- NOTE | 2020-10-21 17:14 | RAD REPORT ---
EXAM DESCRIPTION: CT - Abdomen Pelvis Wo Contrast - 10/21/2020 7:14 am CLINICAL HISTORY: Abdominal pain, swelling, dysuria TECHNIQUE: Contiguous axial images obtained through the abdomen and pelvis without IV contrast. Sebastian nal and sagittal reformatted images were provided. This exam was performed according to our departmental dose-optimization program, which includes autom ated exposure control, adjustment of the mA and/or kV according to patient size and/or use of iterati ve reconstruction technique. COMPARISON: 07/29/2020 FINDINGS: Lung bases: Clear Liver: Hepatic parenchymal calcifications compatible with remote granulomatous organism exposure. Gallbladder and biliary system: Unremarkable Pancreas: Unremarkable Spleen: Splenic parenchymal calcifications compatible with remote granulomatous organism exposure. Adrenals: Unremarkable Kidneys: 2 cm cyst at the upper pole on the left without significant interval change. No calculi. No hydronephrosis. Bowel: Moderate stool. Colonic diverticula without adjacent inflammatory change. No obstruction. No a ppreciable mucosal thickening. Appendix: Normal caliber appendix. No findings to suggest acute appendicitis. Urinary bladder: The urinary bladder is decompressed. Reproductive: Unremarkable as visualized Lymph nodes: No pathologically enlarged lymph nodes. Peritoneum: No focal fluid collection. No free air. Vessels: No abdominal aortic aneurysm. Abdominal wall: Small fat-containing umbilical hernia. Bones: Multilevel spondylosis. No acute fracture. IMPRESSION: 1. No renal, ureteral or bladder calculi. No evidence for renal obstruction. 2. Other findings as above. Electronically signed by: Alex Busby MD 10/21/2020 1:36 AM CDT Due to temporary technical issues with the PACS/Fluency reporting system, reports are being signed by the in house radiologists without review as a courtesy to insure prompt reporting. The interpreting radiologist is fully responsible for the content of the report.
== END 2020-10-21 03:15 | disposition home or self-care (01) ==
LOC: ER 22:50
DX: R30.0 Dysuria (principal); R07.9 Chest pain, unspecified; F43.10 Post-traumatic stress disorder, unspecified; F41.9 Anxiety disorder, unspecified
CPT/HCPCS: 93005; 85025; 80048; 36415; 83735; 85610; 80076; 81003; 84484; 83690; 83880; 74176; J7030; J2405; 96361; 96374; 96375; 99284

== ENCOUNTER 2020-12-15 21:00 | Emergency (ER) | payer OTHER ==
--- OUTSIDE RECORDS SUMMARY | 2020-12-15 21:03 | XMS REPORT | Continuity of Care Document ---
:1960 Author Organization [facility] t Address [address] [place] [address] Care Team Providers Name Role Phone Theo Hernandez NP Attending Clinician Mau Armstrong Attending Clinician Problems Condition Condition Condition Status Onset Resolution Last Treating Co mments Source Name Details Category Date Date Treatment Clinician Date Dizziness Problem Active 2019-04-22 Me moria (finding) 01:06:38 l Evan Dizziness (finding) Active Problem 04/22/2019 [facility] Hypertensi Problem Active 2019-04-22 M emoria ve 01:06:38 l disorder, Evan systemic Hypertensi arterial ve (disorder) disorder, systemic arterial (disorder) Active Problem 04/22/2019 [facility] Memory Problem Active 2019-04-22 Memor ia impairment 01:06:38 l (finding) Memory Maggy nn impairment (finding) Active Problem 04/22/2019 [facility] Neck pain Problem Active 2019-04-22 Me moria (finding) 01:06:38 l Neck [place] pain (finding) Active Problem 04/22/2019 [facility] Paresthesi Problem Active 2019-04-22 M emoria a 01:06:38 l (finding) Evan Paresthesi a (finding) Active Problem 04/22/2019 [facility] Simple Problem Active 2019-04-22 Memor ia obesity 01:06:38 l (disorder) Simple Herm jessa obesity (disorder) Active Problem 04/22/2019 [facility] Tremor Problem Active 2019-04-22 Memor ia (finding) 01:06:38 l Tremor [place] (finding) Active Problem 04/22/2019 [facility] Allergies, Adverse Reactions, Alerts Allergy Allergy Status Severity Reaction(s) Onset Inactive Treating Comm ents Source Name Type Date Date Clinician Hugo Levaqelmer Active [facility] Evan Keflex Adverse [facility] rash [facility] Phenerga Adverse Active hives [facility] Bactrim Adverse Active rash [facility] DS [facility] Levaquin Adverse Active stops [facility] Reaction breathing [facility] Social History Smoking Status Start Date Stop Date Source Social History 2019-03-28 18:18:16 2019-03-28 18:18:[address] [facility] Evan Medications Ordered Filled Start Stop Current Ordering Indication Dosage Frequency Signature Comments Components Source Medication Medication Date Date Medication? Clinician (SIG) Name Name valsartan 2019 Yes 0 Memoria 40 mg oral 0-24 Refill(s) l tablet 19:12: Evna 00 pantoprazol Yes 40 mg = 1 M emoria e 40 mg 4-24 tab, PO, l oral 19:00: Daily, # Evan enteric 00 30 tab, 0 coated Refill(s) tablet carvedilol Yes 25 mg = 1 Me moria 25 mg oral 4-24 tab, PO, l tablet 19:00: BID, # 180 Maggy nn 00 tab, 0 Refill(s) Acetaminoph 2019 Yes 1 tab, PO, Memoria en 325 MG / 4-24 QID, 0 l Hydrocodone 19:00: Refill(s) H ermann Bitartrate 00 10 MG Oral Tablet [[place] 10/325] Clonazepam 2018- Yes 2 mg = 1 Mem oria 2 MG Oral 4-24 tab, PO, l Tablet 19:00: BID, # 60 Jun n [Klonopin] 00 tab, 0 Refill(s) Aspirin 81 Aspirin 81 2017 Yes Esthela [address] [facility] Albuterol Albuterol 2015- Yes Esthela [address] [facility] Sulfate HFA Sulfate HFA 1-25 [facility] Hydrocodone Hydrocodone Yes Esthela (Schedule [facility] -[facility] -Acet[facility]op [facility]) [facility] TK 1 T PO [facility] TID l [facility] Clonazepam Clonazepam Yes Esthela TAKE [address] [facility] TABLET BY [facility] M[facility]TH [facility] TWICE A l DAY [facility] Carvedilol Carvedilol Yes Esthela take [address] [facility] tablet by [facility] twice a l day [facility] Famotidine Famotidine Yes Esthela [address] [facility] Protonix Protonix Yes Esthela [address] [facility] [facility] Dicyclomine Dicyclomine Yes Esthela [address] [facility] [address] HCl HCl [facility] Ventolin Ventolin Yes Esthela [address] HFA HFA [facility] Valsartan Valsartan Yes Esthela [address] [facility] [facility] Creon Creon 2019- No Esthela take by [facility] mouth 1 [facility] - 00:00 capsule 3 [...] Evan Height 2018-09-26 18:51:00 172.72 cm [facility] [place] Heart Rate 2018-09-26 18:51:00 [facility] Respitory Rate 2018-09-26 18:51:00 Gricel Morfinann Systolic (mm Hg) 2018-09-26 18:51:00 Lucio Fernándezann Diastolic (mm Hg) 2018-09-26 18:51:00 Mem orial [place] Procedures This patient has no known procedures. Encounters Start End Encounter Admission Attending Care Care Encounter Source Date/Time Date/Time Type Type Clinicians Facility Department ID 2020-12-04 2020-12-04 [facility] [id number] [facility] 2020-10-22 2020-10-22 [facility] [id number] [facility] 2020-10-15 2020-10-15 [facility] [id number] [facility] 2020-10-07 2020-10-07 [facility] [id number] [facility] 2020-09-07 2020-09-07 [facility] [id number] [facility] 2020-08-06 2020-08-06 [facility] [id number] [facility] 2020-07-09 2020-07-09 [facility] [id number] [facility] 2020-06-09 2020-06-09 [facility] [id number] [facility] 2020-05-21 2020-05-21 [facility] [id number] [facility] 2020-05-14 2020-05-14 Out[facility] [id number] [facility] 2020-04-28 2020-04-28 Out[facility] [id number] [facility] 2020-04-16 2020-04-16 [facility] [id number] [facility] 2020-03-18 2020-03-18 Out[facility] [id number] [facility] 2020-03-18 2020-03-18 Out[facility] [id number] [facility] 2020-03-10 2020-03-10 [facility] [id number] [facility] 2019-07-21 2019-07-21 [facility] [id number] 18:06:23 22:09:00 Camila Layton [id number] [place] [id number] [place] [id number] 2019-07-15 2019-07-15 [facility] [id number] 15:01:00 15:01:00 t Specialty/U [facility] kes - Specialty rology [facility] /Urology Clinic l Clinic Outpati ent Clinics 2019-07-09 2019-07-09 [facility] [id number] 16:46:00 16:46:00 t Specialty/U Martha kes - Specialty rology [facility] /Urology Clinic l Clinic Outpati ent Clinics 2019-07-08 2019-07-08 [facility] [id number] 14:51:00 14:51:00 t Specialty/U Martha kes - Specialty rology [facility] a /Urology Clinic l Clinic Outpati ent Clinics 2019-07-08 2019-07-08 [facility] [id number] 08:00:00 08:00:00 t Specialty/U Martha kes - Specialty rology Mem[facility] /Urology Clinic l Clinic Outpati ent Clinics 2019-07-04 2019-07-04 [facility] [id number] 13:00:00 13:00:00 t Specialty/U Martha kes - Specialty rology [facility] a /Urology Clinic l Clinic Outpati ent Clinics 2019-07-02 2019-07-02 [facility] [id number] [address] 14:32:00 14:32:00 t [facility] Medicine Outpati ent Clinics 2019-06-27 2019-06-27 [facility] [id number] [facility] 14:40:00 14:40:00 t [facility] Outpati ent Clinics 2019-06-03 2019-06-03 [facility] [id number] [address] 11:17:00 11:17:00 t [facility] Outpati ent Clinics 2019-04-18 2019-04-19 Outpatient MHMISCHER MHMISCHER [id number] 12:37:59 23:59:59 2019-04-11 2019-04-11 Outpatient AZAR ArmstrongSCHER ALICEMISCHER [id number] 15:30:00 15:30:00 Pio 03 Mau 2019-04-09 2019-04-09 [facility] [id number] 15:20:00 15:20:00 [facility] Outpati ent Clinics 2019-04-01 2019-04-02 Outpatient MHMISCHER MHMISCHER [id number] 08:58:44 23:59:59 2019-03-28 2019-03-28 Outpatient AZAR ArmstrongSCHER MHMISCHER [id number] 13:00:00 23:59:59 Pio Mau 2019-02-19 2019-02-19 [facility] [id number] 14:40:00 14:40:00 [facility] Medicine Outpati ent Clinics 2018-12-11 2018-12-11 [facility] [id number] [facility] 11:21:00 11:21:00 [facility] Medicine Outpati ent Clinics 2018-11-19 2018-11-19 [facility] [id number] 14:40:00 14:40:00 [facility] Medicine Outpati ent Clinics 2018-10-31 2018-10-31 Outpatient Nathaniel MISCHER MISCHER [id number] 13:45:00 13:45:00 Pio 01 Mau 2018-09-26 2018-09-26 Outpatient AZAR ArmstrongSCHLATHA MISCHER [id number] 13:30:00 23:59:59 Pio 00 Mau 2018-09-17 2018-09-17 [facility] [id number] [facility] 16:00:00 16:00:00 [facility] Medicine Outpati ent Clinics 2018-08-02 2018-08-02 [facility] [id number] 16:07:00 16:07:00 [employer] [place] [facility] Medicine Outpati ent Clinics 2018-08-02 2018-08-02 [facility] [id number] [facility] 16:05:00 16:05:00 [place] [facility] [place] [facility] Medicine Medicine Outpati ent Clinics 2018-06-18 2018-06-18 [facility] [id number] [facility] 16:00:00 16:00:00 [facility] Medicine Outpati ent Clinics 2018-01-18 2018-01-18 [facility] [id number] [facility] 14:00:00 14:00:00 [facility] Medicine Outpati ent Clinics 2017-09-19 2017-09-19 [facility] [id number] [facility] 09[facility]33:00 09:33:00 [facility] Outpati ent Clinics 2017-09-14 2017-09-14 Outpatient [facility] Malenat [id number] 13:00:00 13:00:00 [facility] Outpati ent Clinics 2017-09-12 2017-09-12 Outpatient Malena Preston [id number] 11:05:00 11:05:00 [facility] 2017-08-29 2017-08-29 [place] [facility] [id number] [facility] 15:30:00 15:30:00 [facility] Results This patient has no known results.
[2020-12-15 23:19] LABS: Urine Blood Trace-lysed (Negative); Urine Glucose Negative (Negative); Urine Protein Negative (Negative)
[2020-12-16 02:51] LABS: Absolute Lymphocytes (CBC) 2.7 K/uL (0.7-4.9); Basophils % 0.4 % (0-1.3); Hematocrit 42.8 % (39.6-49.0); Lymphocytes % 36.7 % (15.3-44.8); MPV 8.3 fL (7.6-11.3); RBC Red Blood Cell Count 4.79 M/uL (4.33-5.43)
[2020-12-16 03:02] LABS: ALT/SGPT 20 U/L (12-78); AST/SGOT 13 U/L (15-37); Albumin 3.6 g/dL (3.4-5.0); Alkaline Phosphatase 47 U/L (45-117); BUN Blood Urea Nitrogen 11 mg/dL (7-18); Bicarbonate 33 mmol/L (21-32); Bilirubin Direct 0.1 mg/dL (0-0.2); Bilirubin Total 0.7 mg/dL (0.2-1.0); Glucose Level 82 mg/dL (74-106); Lipase 137 U/L (73-393); Potassium 4.3 mmol/L (3.5-5.1); Protein, Total 6.8 g/dL (6.4-8.2); Sodium Level 142 mmol/L (136-145)
--- NOTE | 2020-12-16 03:53 | ER ---
Nurse's Notes [facility] Name: Alfredo Escobar Age: 60 yrs Sex: Male : 1960 Arrival Date: 12/15/2020 Time: 21:02 Bed 8 Private MD: Diagnosis: Abdominal tenderness;Dysuria Presentation: 12/15 21:17 Chief complaint: Patient states: About a week ago began having lower back pain, scrotal vg1 pain, and ABD pain; states urinating frequently and BM have slowed down; stated when urinating is having testicle pain. Coronavirus screen: Client denies travel out of the [place] in the last 14 days. Ebola Screen: Patient negative for fever greater than or equal to 101.5 degrees Fahrenheit, and additional compatible Ebola Virus Disease symptoms. Initial Sepsis Screen: Does the patient meet any 2 criteria? No. Patient's initial sepsis screen is negative. Does the patient have a suspected source of infection? No. Patient's initial sepsis screen is negative. Risk Assessment: Do you want to hurt yourself or someone else? Patient reports no desire to harm self or others. Onset of symptoms was December 08, 2020. 21:17 Method Of Arrival: Ambulatory vg1 21:17 Acuity: UBCKY 3 vg1 Triage Assessment: 21:21 General: Appears in no apparent distress. uncomfortable, Behavior is calm, cooperative. vg1 Pain: Complains of pain in lower back, abdomen, testicles. Historical: - Allergies: 21:21 Bactrim; vg1 21:21 Iodinated Contrast Media - IV Dye; vg1 21:21 Iodine; vg1 21:21 Keflex; vg1 21:21 Latex, Natural Rubber; vg1 21:21 Levaquin; vg1 21:21 promethazine HCl; vg1 21:21 Toradol; vg1 - Home Meds: 21:21 calcipotriene 0.005 % Topical oint 2 times per day [Active]; carvedilol 25 mg Oral tab vg1 2 times per day [Active]; clonazepam 2 mg Oral tab 2 times per day [Active]; Creon 39983 units Oral 3 times per day [Active]; [place] 10-325 mg Oral tab twice a day [Active]; pantoprazole 40 mg Oral TbEC once daily [Active]; Ventolin HFA 90 mcg/actuation Nebulizer HFAA 2 puffs every 8 hours [Active]; - PMHx: 21:21 Anxiety; Arthritis; Crohn's; GERD; Pancreatitis; PTSD; vg1 - Immunization history:: Adult Immunizations up to date. - Social history:: Smoking status: Patient denies any tobacco usage or history of. - Family history:: not pertinent. Screenin/14 02:30 Abuse screen: Denies threats or abuse. Denies injuries from another. Nutritional 8 screening: No deficits noted. Tuberculosis screening: No symptoms or risk factors identified. Fall Risk None identified. No fall in past 12 months (0 pts). Vital Signs: 12/15 21:17 BP 136 / 79; Pulse 62; Resp 18; Temp 98.6; Pulse Ox 100% ; Weight 86.18 kg; Height 5 1 ft. 10 in. (177.80 cm); Pain 10/10; 12/16 05:22 BP 122 / 74; Pulse 64; Resp 16; Pulse Ox 100% on R/A; jm8 12/15 21:17 Body Mass Index 27.26 (86.18 kg, 177.80 cm) [facility] ED Course: 12/15 21:02 Patient arrived in ED. 21:21 Triage completed. 1 21:21 Arm band placed on Patient placed in waiting room, Patient notified of wait time. [facility] 12/16 01:40 Pal Ferreira MD is Attending Physician. mack 02:30 Inserted saline lock: 20 gauge in right antecubital area, using aseptic technique. jm8 02:31 Patient has correct armband on for positive identification. Bed in low position. Call 8 light in reach. Side rails up X2. Adult w/ patient. 03:44 CT Abd/Pelvis - IV Contrast Only In Process Unspecified. EDMS 03:52 Nirmala Concepcion MD is Referral Physician. mack 03:52 Albert Najera MD is Referral Physician. mack 05:23 No provider procedures requiring assistance completed. IV discontinued, intact. jm8 Administered Medications: 02:25 Drug: NS 0.9% 1000 ml Route: IV; Rate: 1 bolus; Site: right antecubital; [facility] 05:23 Follow up: IV Status: Completed infusion [facility] 02:25 Not Given (Patient Refused): morphine 2 mg IVP once; (PAIN>8) RASS on ADMN: Combtv4, jm8 Very Agttd3, Agttd2, Rstlss1, AlertClm0, Drwsy-1, LtSdtn-2, ModSdtn-3, DpSdtn-4, UnArsble-5 x2 02:26 Not Given (Patient Refused): Zofran (Ondansetron) 4 mg IVP once; over [address] [facility] 04:14 Drug: Bentyl (dicyclomine) 20 mg Route: PO; [facility] 05:23 Follow up: Response: No adverse reaction [facility] 04:15 Not Given (Patient Refused): Zofran (Ondansetron) 4 mg IVP once; over [address] [facility] Outcome: 03:52 Discharge ordered by . mack 05:22 Discharged to home ambulatory. [facility] 05:22 Condition: good 05:22 Discharge instructions given to patient, Instructed on discharge instructions, follow up and referral plans. medication usage, Demonstrated understanding of instructions, follow-up care, medications, Prescriptions given X 3. 05:24 [address] the ED[address] [facility] Signatures: Dispatcher [employer] EDMS Pal Ferreira MD MD cha Garcia, Victoria, RN RN vg1 Colby Randall, RN RN Rose Grimaldo
--- NOTE | 2020-12-16 03:53 | EDPHYS ---
Physician Documentation [facility] Name: Alfredo Escobar Age: 60 yrs Sex: Male : 1960 Arrival Date: 12/15/2020 Time: 21:02 Bed 8 Private MD: Pal Collins HPI: 12/16 01:56 This 60 yrs old Male presents to ER via Ambulatory with complaints of Pain mack With Urination. 01:56 The patient presents with abdominal pain right lower quadrant, in the left lower mack quadrant. Onset: The symptoms/episode began/occurred 2 day(s) ago. The patient presents with scrotal pain, of both sides. Onset: The symptoms/episode began/occurred 2 day(s) ago. Modifying factors: The symptoms are alleviated by nothing, the symptoms are aggravated by nothing. Associated signs and symptoms: The patient has no apparent associated signs or symptoms. The symptoms do not radiate. Associated signs and symptoms: Pertinent positives: dysuria. Historical: - Allergies: 12/15 21:21 Bactrim; vg1 21:21 Iodinated Contrast Media - IV Dye; vg1 21:21 Iodine; vg1 21:21 Keflex; vg1 21:21 Latex, Natural Rubber; vg1 21:21 Levaquin; vg1 21:21 promethazine HCl; vg1 21:21 Toradol; vg1 - Home Meds: 21:21 calcipotriene 0.005 % Topical oint 2 times per day [Active]; carvedilol 25 mg Oral tab vg1 2 times per day [Active]; clonazepam 2 mg Oral tab 2 times per day [Active]; Creon 93829 units Oral 3 times per day [Active]; [place] 10-325 mg Oral tab twice a day [Active]; pantoprazole 40 mg Oral TbEC once daily [Active]; Ventolin HFA 90 mcg/actuation Nebulizer HFAA 2 puffs every 8 hours [Active]; - PMHx: 21:21 Anxiety; Arthritis; Crohn's; GERD; Pancreatitis; PTSD; vg1 - Immunization history:: Adult Immunizations up to date. - Social history:: Smoking status: Patient denies any tobacco usage or history of. - Family history:: not pertinent. ROS: 12/16 01:56 Constitutional: Negative for fever, chills, and weight loss, Eyes: Negative for injury, mack pain, redness, and discharge, ENT: Negative for injury, pain, and discharge, Neck: Negative for injury, pain, and swelling, Cardiovascular: Negative for chest pain, palpitations, and edema, Respiratory: Negative for shortness of breath, cough, wheezing, and pleuritic chest pain, Back: Negative for injury and pain, : Negative for injury, bleeding, discharge, and swelling, MS/Extremity: Negative for injury and deformity, Skin: Negative for injury, rash, and discoloration, Neuro: Negative for headache, weakness, numbness, tingling, and seizure, Psych: Negative for depression, anxiety, suicide ideation, homicidal ideation, and hallucinations, Allergy/Immunology: Negative for hives, rash, and allergies, Endocrine: Negative for neck swelling, polydipsia, polyuria, polyphagia, and marked weight changes, Hematologic/Lymphatic: Negative for swollen nodes, abnormal bleeding, and unusual bruising. Abdomen/GI: Positive for abdominal pain, of the right lower quadrant and left lower quadrant. Exam: 01:56 Constitutional: This is a well developed, well nourished patient who is awake, alert, mack and in no acute distress. Head/Face: Normocephalic, atraumatic. Eyes: Pupils equal round and reactive to light, extra-ocular motions intact. Lids and lashes normal. Conjunctiva and sclera are non-icteric and not injected. Cornea within normal limits. Periorbital areas with no swelling, redness, or edema. ENT: Nares patent. No nasal discharge, no septal abnormalities noted. Tympanic membranes are normal and external auditory canals are clear. Oropharynx with no redness, swelling, or masses, exudates, or evidence of obstruction, uvula midline. Mucous membranes moist. Neck: Trachea midline, no thyromegaly or masses palpated, and no cervical lymphadenopathy. Supple, full range of motion without nuchal rigidity, or vertebral point tenderness. No Meningismus. Chest/axilla: Normal chest wall appearance and motion. Nontender with no deformity. No lesions are appreciated. Cardiovascular: Regular rate and rhythm with a normal S1 and S2. No gallops, murmurs, or rubs. Normal PMI, no JVD. No pulse deficits. Respiratory: Lungs have equal breath sounds bilaterally, clear to auscultation and percussion. No rales, rhonchi or wheezes noted. No increased work of breathing, no retractions or nasal flaring. Back: No spinal tenderness. No costovertebral tenderness. Full range of motion. Skin: Warm, dry with normal turgor. Normal color with no rashes, no lesions, and no evidence of cellulitis. MS/ Extremity: Pulses equal, no cyanosis. Neurovascular intact. Full, normal range of motion. Neuro: Awake and alert, GCS 15, oriented to person, place, time, and situation. Cranial nerves II-XII grossly intact. Motor strength 5/5 in all extremities. Sensory grossly intact. Cerebellar exam normal. Normal gait. Psych: Awake, alert, with orientation to person, place and time. Behavior, mood, and affect are within normal limits. 01:56 Abdomen/GI: Inspection: abdomen appears normal, Bowel sounds: normal, Palpation: mild abdominal tenderness, in the right lower quadrant and left lower quadrant, Liver: no appreciated palpable abnormalities, Hernia: not appreciated. Vital Signs: 12/15 21:17 BP 136 / 79; Pulse 62; Resp 18; Temp 98.6; Pulse Ox 100% ; Weight 86.18 kg; Height 5 vg1 ft. 10 in. (177.80 cm); Pain 10/10; 12/16 05:22 BP 122 / 74; Pulse 64; Resp 16; Pulse Ox 100% on R/A; jm8 12/15 21:17 Body Mass Index 27.26 (86.18 kg, 177.80 cm) vg1 MDM: 01:40 Patient medically screened. mack 01:58 Differential diagnosis: nonspecific abdominal pain, UTI, prostatitis, urethritis, bowel mack obstruction, Irritable bowel syndrome, non-specific abd pain, pancreatitis, Prostatitis, Pyelonephritis, urinary tract infection. Data reviewed: vital signs, nurses notes, lab test result(s), radiologic studies, CT scan. Data interpreted: media monitor: not applicable for this patient encounter. rate is 62 beats/min, rhythm is regular, Pulse oximetry: on room air is 100 %. Counseling: I had a detailed discussion with the patient and/or guardian regarding: the historical points, exam findings, and any diagnostic results supporting the discharge/admit diagnosis, lab results, radiology results, the need for outpatient follow up, for definitive care, a family practitioner, a urologist. 12/15 23:18 Order name: Urine Dipstick-Ancillary; Complete Time: 03:00 EDMS 12/16 01:51 Order name: Basic Metabolic Panel [facility] 12/16 01:51 Order name: CBC with Diff; Complete Time: 03:00 [facility] 12/16 01:51 Order name: Hepatic Function; Complete Time: 03:52 [facility] 12/16 01:51 Order name: Lipase; Complete Time: 03:52 [facility] 12/16 01:51 Order name: Urine Culture [facility] 12/16 01:51 Order name: IV Saline Lock; Complete Time: 02:30 [facility] 12/16 01:51 Order name: CT Abd/Pelvis - IV Contrast Only [facility] 12/16 01:51 Order name: Basic Metabolic Panel; Complete Time: 03:52 EDMS 12/16 01:51 Order name: Labs collected and sent; Complete Time: 02:30 [facility] Administered Medications: 02:25 Drug: NS 0.9% 1000 ml Route: IV; Rate: 1 bolus; Site: right antecubital; [facility] 05:23 Follow up: IV Status: Completed infusion 8 02:25 Not Given (Patient Refused): morphine 2 mg IVP once; (PAIN>8) RASS on ADMN: Combtv4, jm8 Very Agttd3, Agttd2, Rstlss1, AlertClm0, Drwsy-1, LtSdtn-2, ModSdtn-3, DpSdtn-4, UnArsble-5 x2 02:26 Not Given (Patient Refused): Zofran (Ondansetron) 4 mg IVP once; over 2 minutes 8 04:14 Drug: Bentyl (dicyclomine) 20 mg Route: PO; 8 05:23 Follow up: Response: No adverse reaction jm8 04:15 Not Given (Patient Refused): Zofran (Ondansetron) 4 mg IVP once; over 2 minutes jm8 Disposition Summary: 12/16/20 03:52 Discharge Ordered Location: Home mack Problem: new mack Symptoms: have improved mack Condition: Stable mack Diagnosis - Abdominal tenderness mack - Dysuria mack Followup: mack - With: Private Physician - When: 2 - 3 days - Reason: Recheck today's complaints, Continuance of care, Re-evaluation by your physician Followup: mack - With: - When: 2 - 3 days - Reason: Recheck today's complaints, Continuance of care, Re-evaluation by your physician Followup: mack - With: - When: 2 - 3 days - Reason: Recheck today's complaints, Re-evaluation by your physician Discharge Instructions: - Discharge Summary Sheet mack - Abdominal Pain, Adult mack - Dysuria mack - Abdominal Pain, Adult, [id number] [facility] Forms: - Medication Reconciliation Form mack - Thank You Letter mack - Antibiotic Education mack - Prescription Opioid Use [facility] Prescriptions: - Macrobid 100 mg Oral Capsule - take 1 capsule by ORAL route every 12 hours for 7 days; 14 capsule; Refills: 0, [facility] Product Selection Permitted - Pepcid 20 mg Oral Tablet - take 1 tablet by ORAL route every 12 hours for 10 days; 20 tablet; Refills: 0, [facility] Product Selection Permitted - dicyclomine 20 mg Oral Tablet - take 1 tablet by ORAL route 4 times per day; 20 tablet; Refills: 0, Product [facility] Selection Permitted Signatures: Dispatcher [employer] Pal Leyva MD MD cha Garcia, Victoria, RN RN vg1 Colby Randall RN RN jm8
[2020-12-16 07:10] VITALS: TEMP 98.6; O2SAT 100
[2020-12-16 07:12] VITALS: BP 122/74
--- NOTE | 2020-12-16 19:48 | RAD REPORT ---
EXAM DESCRIPTION: CT - Abdomen Pelvis W Contrast - 12/16/2020 6:52 am CLINICAL HISTORY: The patient is 60 years old and is Male; ABD PAIN TECHNIQUE: Axial computed tomography images of the abdomen and pelvis with intravenous contrast. S agittal and coronal reformatted images were created and reviewed. This CT exam was performed using one or more of the following dose reduction techniques: automated exposure control, adjustment of t he mA and/or kV according to patient size, and/or use of iterative reconstruction technique. COMPARISON: CT abdomen pelvis October 21, 2020. FINDINGS: Lung bases: Unremarkable. No mass. No consolidation. ABDOMEN: Liver: Unremarkable. No mass. Gallbladder and bile ducts: Unremarkable. No calcified stones. No ductal dilation. Pancreas: No findings to suggest acute pancreatitis. No mass visualized. No ductal dilation. Spleen: Unremarkable. No splenomegaly. Adrenals: Unremarkable. No mass. Kidneys and ureters: 2.6 cm left renal simple cyst. No follow-up imaging recommended. The kidneys are otherwise unremarkable. No solid renal lesion. No hydronephrosis. Stomach and bowel: Scattered colonic diverticulosis. No bowel dilatation or obstruction. No bowel wall thickening. PELVIS: Appendix: The visualized appendix is normal. No pericecal inflammation to suggest acute appendici tis. Bladder: Unremarkable. No mass. Reproductive: Unremarkable as visualized. ABDOMEN and PELVIS: Intraperitoneal space: Unremarkable. No free air. No significant fluid collection. Bones/joints: Multilevel degenerative facet arthropathy in the lumbar spine. No acute fracture vi sualized. No dislocation. Soft tissues: Unremarkable. Vasculature: Unremarkable. No abdominal aortic aneurysm. Lymph nodes: No pathologically enlarged lymph nodes. IMPRESSION: 1. No acute obstructive or inflammatory process identified. Normal appendix. 2. Scattered colonic diverticulosis. Electronically signed by: Sindhu Paige MD 12/16/2020 4:13 AM CDT Due to temporary technical issues with the PACS/Fluency reporting system, reports are being signed by the in house radiologists without review as a courtesy to insure prompt reporting. The interpreting radiologist is fully responsible for the content of the report.
== END 2020-12-16 05:24 | disposition home or self-care (01) ==
LOC: ER 21:00
DX: R30.0 Dysuria (principal); F43.10 Post-traumatic stress disorder, unspecified; Z88.1 Allergy status to other antibiotic agents; Z88.5 Allergy status to narcotic agent; Z91.040 Latex allergy status; Z91.041 Radiographic dye allergy status; Z91.048 Other nonmedicinal substance allergy status
CPT/HCPCS: 96361; 87088; 85025; 87086; 80048; 36415; 80076; 81003; 83690; 74177; 96360; 99284; Q9967

== ENCOUNTER 2020-12-24 23:45 | Emergency (ER) | payer OTHER ==
--- OUTSIDE RECORDS SUMMARY | 2020-12-24 23:48 | XMS REPORT | Continuity of Care Document ---
:1960 Author Organization [facility] t Address [address] [place] [address] Care Team Providers Name Role Phone Theo [...] 2019-04-22 M emoria a 01:06:38 l (finding) [facility] Paresthesi a (finding) Active Problem 04/22/2019 Mischer [...] [facility] Phenerga Adverse Active hives [facility] Bactrim Adverse Active rash [facility] Levaquin Adverse Active stops [facility] Social History Smoking Status [...] ermann Bitartrate 00 10 MG Oral Tablet [[place] 10/325] Clonazepam 2018- Yes 2 mg = 1 Mem oria 2 MG Oral 4-24 tab, PO, l Tablet 19:00: BID, # 60 Jun n [Klonopin] 00 tab, 0 Refill(s) Aspirin 81 Aspirin 81 2017- Yes Esthela [address] [facility] 4[facility]12 [facility] Albuterol Albuterol 2015- Yes Esthela [address] [facility] Sulfate HFA Sulfate HFA 1-25 [facility] Ventolin Ventolin Yes Esthela [address] [facility] HFA HFA [facility] Valsartan Valsartan Yes Esthela [address] [facility] Hydrocodone Hydrocodone Yes Esthela (Schedule [facility] -Acetaminop -Acetaminop [facility]) [facility] TK 1 T PO [facility] TID [facility] Clonazepam Clonazepam Yes Esthela TAKE [address] [facility] TABLET BY [facility] M[facility]TH [facility]ICE A [facility] Carvedilol Carvedilol Yes Esthela take [address] [facility] tablet by [facility] twice a [facility] Famotidine Famotidine Yes Esthela [address] [facility] at bedtime [facility] Protonix Protonix Yes Esthela [address] [facility] Dicyclomine Dicyclomine Yes Esthela [address] [facility] [facility] HCl HCl [facility] Creon Creon 2019- No Esthela take by [facility] 07[facility]21 [facility] mouth 1 [facility] - 00:00 capsule 3 [...] Evan Height 2018-09-26 18:51:00 172.72 cm [facility] Heart Rate 2018-09-26 18:51:00 [facility] Evan Respitory Rate 2018-09-26 18:51:00 Gricel Morfinann Systolic (mm Hg) 2018-09-26 18:51:00 Lucio Fernándezann Diastolic (mm Hg) 2018-09-26 18:51:00 Mem orial [facility] Procedures This patient has no known procedures. Encounters Start End Encounter Admission Attending Care Care Encounter Source Date/Time Date/Time Type Type Clinicians Facility Department ID 2020-12-17 2020-12-17 Out[facility] [id number] 2020-12-04 2020-12-04 Out[facility] [id number] [facility] 2020-10-22 2020-10-22 [facility] [id number] [facility] 2020-10-15 2020-10-15 [facility] [id number] [facility] 2020-10-07 2020-10-07 [facility] [id number] [facility] 2020-09-07 2020-09-07 [facility] [id number] [facility] 2020-08-06 2020-08-06 [facility] [id number] [facility] 2020-07-09 2020-07-09 [facility] [id number] [facility] 2020-06-09 2020-06-09 [facility] [id number] [facility] 2020-05-21 2020-05-21 Out[facility] [id number] [facility] 2020-05-14 2020-05-14 Out[facility] [id number] [facility] 2020-04-28 2020-04-28 [facility] [id number] [facility] 2020-04-16 2020-04-16 [facility] [id number] [facility] 2020-03-18 2020-03-18 Out[facility] [id number] [facility] 2020-03-18 2020-03-18 Out[facility] [id number] [facility] 2020-03-10 2020-03-10 Out[facility] [id number] [facility] 2019-07-21 2019-07-21 [facility] [id number] 18:06:23 22:09:00 Camila Layton [id number] [place] [id number] [place] [id number] 2019-07-15 2019-07-15 [facility] [id number] [facility] 15:01:00 15:01:00 t Specialty/U Martha [facility]es - Special[facility]rology [facility] l Clinic Outpat[facility] ent Clinics 2019-07-09 2019-07-09 [facility] [id number] [facility] 16:46:00 16:46:00 t Specialty/U Martha [facility]es - Special[facility]y [facility] /Urology Clinic l Clinic Outpati ent Clinics 2019-07-08 2019-07-08 [facility] [id number] 14:51:00 14:51:00 t Specialty/U Martha kes - Specialty rology [facility] /Urology Clinic l Clinic Outpati ent Clinics 2019-07-08 2019-07-08 [facility] [id number] [address] 08:00:00 08:00:00 t Specialty/U Martha kes - Specialty ro[facility]y [facility] /Urology Clinic l Clinic Outpati ent Clinics 2019-07-04 2019-07-04 [facility] [id number] 13:00:00 13:00:00 t Specialty/U Martha kes - Specialty rology [facility] /Urology Clinic l Clinic Outpati ent Clinics 2019-07-02 2019-07-02 [facility] [id number] 14:32:00 14:32:00 t [facility] l Medicine Outpati ent Clinics 2019-06-27 2019-06-27 [facility] [id number] 14:40:00 14:40:00 t [facility] Medicine Outpati ent Clinics 2019-06-03 2019-06-03 [facility] [id number] 11:17:00 11:17:00 t [facility] Medicine Outpati ent Clinics 2019-04-18 2019-04-19 Outpatient MHMISCHER MHMISCHER [id number] 12:37:59 23:59:59 2019-04-11 2019-04-11 Outpatient AZAR ArmstrongSCHLATHA ASKEWSCHER [id number] 15:30:00 15:30:00 Pio Kisha León 2019-04-09 2019-04-09 [facility] [id number] [facility] 15:20:00 15:20:00 t [facility] Medicine Outpati ent Clinics 2019-04-01 2019-04-02 Outpatient MHMISCHER MHMISCHER [id number] 08:58:44 23:59:59 2019-03-28 2019-03-28 Outpatient MARIAH ArmstrongSCHER [id number] 13:00:00 23:59:59 Pio 02 [facility] 2019-02-19 2019-02-19 [facility] [id number] 14:40:00 14:40:00 [facility] Medicine Outpati ent Clinics 2018-12-11 2018-12-11 [facility] [id number] 11:21:00 11:21:00 [facility] Medicine Outpati ent Clinics 2018-11-19 2018-11-19 [facility] [id number] [facility] 14:40:00 14:40:00 [facility] Medicine Outpati ent Clinics 2018-10-31 2018-10-31 [id number] 13:45:00 13:45:00 Poi 01 [facility] 2018-09-26 2018-09-26 [facility] [id number] 13:30:00 23:59:59 Pio 00 [facility] 2018-09-17 2018-09-17 [facility] [id number] 16:00:00 16:00:00 [facility] Medicine Outpati ent Clinics 2018-08-02 2018-08-02 [facility] [id number] 16:07:00 16:07:00 t [facility] Medicine Outpati ent Clinics 2018-08-02 2018-08-02 [facility] [id number] [address] 16:05:00 16:05:00 t [employer] [facility] Medicine Outpati ent Clinics 2018-06-18 2018-06-18 [facility] [id number] [address] 16:00:00 16:00:00 [facility] Medicine Outpati ent Clinics 2018-01-18 2018-01-18 [facility] [id number] 14:00:00 14:00:00 t [facility] Medicine Outpati ent Clinics 2017-09-19 2017-09-19 [facility] [id number] 09:33:00 09:33:00 t [facility] Medicine Outpati ent Clinics 2017-09-14 2017-09-14 [facility] [id number] [facility] 13:00:00 13:00:00 t [facility] Medicine Outpati ent Clinics 2017-09-12 2017-09-12 [facility] [id number] 11:05:00 11:05:00 t [facility] Medicine Outpati ent Clinics 2017-08-29 2017-08-29 [facility] [place] [facility] [id number] [facility] 15:30:00 15:30:00 [facility] Results This patient has no known results.
[2020-12-25] MEDS ORDERED: NA CHLORIDE 0.9% 1,000 ML ONE (01:40)
[2020-12-25 01:44] LABS: Absolute Lymphocytes (CBC) 2.1 K/uL (0.7-4.9); Basophils % 0.5 % (0-1.3); Hematocrit 41.6 % (39.6-49.0); Lymphocytes % 36.2 % (15.3-44.8); MPV 7.9 fL (7.6-11.3); Protime INR 0.98
[2020-12-25 02:14] LABS: ALT/SGPT 19 U/L (12-78); AST/SGOT 10 U/L (15-37); Albumin 3.4 g/dL (3.4-5.0); Alkaline Phosphatase 47 U/L (45-117); BUN Blood Urea Nitrogen 11 mg/dL (7-18); Bicarbonate 32 mmol/L (21-32); Bilirubin Direct < 0.1 mg/dL (0-0.2); Bilirubin Total 0.2 mg/dL (0.2-1.0); Glucose Level 114 mg/dL (74-106); Magnesium 2.1 mg/dL (1.8-2.4); NT PRO-BNP 43 pg/mL (<125); Potassium 4.3 mmol/L (3.5-5.1); Protein, Total 6.6 g/dL (6.4-8.2); Sodium Level 143 mmol/L (136-145); Troponin (Emerg Dept Use Only) < 0.02 ng/mL (0.0-0.045)
--- NOTE | 2020-12-25 05:31 | EDPHYS ---
Physician Documentation [facility] Name: Alfredo Escobar Age: 60 yrs Sex: Male : 1960 Arrival Date: 12/24/2020 Time: 23:50 Bed 8 Private MD: Gregory [facility] ED Physician Pablo Swartz HPI: 12/25 03:54 This 60 yrs old Male presents to ER via Ambulatory with complaints of High pkl Blood Pressure. 03:54 Onset: The symptoms/episode began/occurred today. Associated signs and symptoms: pkl Pertinent positives:. Historical: - Allergies: 00:10 Bactrim; bb 00:10 Iodinated Contrast Media - IV Dye; bb 00:10 Iodine; bb 00:10 Keflex; bb 00:10 Latex, Natural Rubber; bb 00:10 Levaquin; bb 00:10 promethazine HCl; bb 00:10 Toradol; bb - Immunization history:: Adult Immunizations up to date, Client reports having NOT received the Covid vaccine. - Social history:: Smoking status: Patient denies any tobacco usage or history of. ROS: 03:54 Eyes: Negative for injury, pain, redness, and discharge, ENT: Negative for injury, pkl pain, and discharge, Neck: Negative for injury, pain, and swelling, Cardiovascular: Negative for chest pain, palpitations, and edema, Respiratory: Negative for shortness of breath, cough, wheezing, and pleuritic chest pain, Abdomen/GI: Negative for abdominal pain, nausea, vomiting, diarrhea, and constipation, Back: Negative for injury and pain, : Negative for injury, bleeding, discharge, and swelling, MS/Extremity: Negative for injury and deformity, Skin: Negative for injury, rash, and discoloration, Neuro: Negative for headache, weakness, numbness, tingling, and seizure. Exam: 03:54 Head/Face: Normocephalic, atraumatic. Eyes: Pupils equal round and reactive to light, pkl extra-ocular motions intact. Lids and lashes normal. Conjunctiva and sclera are non-icteric and not injected. Cornea within normal limits. Periorbital areas with no swelling, redness, or edema. ENT: Nares patent. No nasal discharge, no septal abnormalities noted. Tympanic membranes are normal and external auditory canals are clear. Oropharynx with no redness, swelling, or masses, exudates, or evidence of obstruction, uvula midline. Mucous membranes moist. Neck: Trachea midline, no thyromegaly or masses palpated, and no cervical lymphadenopathy. Supple, full range of motion without nuchal rigidity, or vertebral point tenderness. No Meningismus. Chest/axilla: Normal chest wall appearance and motion. Nontender with no deformity. No lesions are appreciated. Cardiovascular: Regular rate and rhythm with a normal S1 and S2. No gallops, murmurs, or rubs. Normal PMI, no JVD. No pulse deficits. Respiratory: Lungs have equal breath sounds bilaterally, clear to auscultation and percussion. No rales, rhonchi or wheezes noted. No increased work of breathing, no retractions or nasal flaring. Abdomen/GI: Soft, non-tender, with normal bowel sounds. No distension or tympany. No guarding or rebound. No evidence of tenderness throughout. Back: No spinal tenderness. No costovertebral tenderness. Full range of motion. Skin: Warm, dry with normal turgor. Normal color with no rashes, no lesions, and no evidence of cellulitis. MS/ Extremity: Pulses equal, no cyanosis. Neurovascular intact. Full, normal range of motion. Neuro: Awake and alert, GCS 15, oriented to person, place, time, and situation. Cranial nerves II-XII grossly intact. Motor strength 5/5 in all extremities. Sensory grossly intact. Cerebellar exam normal. Normal gait. Vital Signs: 00:08 BP 134 / 91; Pulse 63; Resp 16 S; Temp 98.6(O); Pulse Ox 99% on R/A; Weight 86.18 kg bb (R); Height 5 ft. 10 in. (177.80 cm) (R); 01:38 BP 127 / 77; Pulse 55; Resp 18; Pulse Ox 99% ; ea 02:40 BP 129 / 69; Pulse 54; Resp 18; Pulse Ox 99% ; ea 03:31 BP 150 / 89; Pulse 53; Resp 16; Pulse Ox 99% on R/A; em 04:28 BP 140 / 75; Pulse 50; Resp 16; Pulse Ox 99% ; ea 05:08 BP 142 / 79; Pulse 53; Resp 18; Pulse Ox 99% ; ea 00:08 Body Mass Index 27.26 (86.18 kg, 177.80 cm) bb MDM: 01:06 Patient medically screened. pkl 05:23 Data reviewed: vital signs, nurses notes, lab test result(s), EKG, radiologic studies, pkl plain films. 05:26 ED course: Patient not in any distress. Discussed lab, EKG and imaging studies with pkl patient. Advised to follow up with his PCP in 2 to 3 days. Patient understood instructions. 12/25 01:15 Order name: Basic Metabolic Panel; Complete Time: 05:24 pkl 12/25 01:15 Order name: CBC with Diff; Complete Time: 05:24 pkl 12/25 01:15 Order name: LFT's; Complete Time: 05:24 pkl 12/25 01:15 Order name: Magnesium; Complete Time: 05:24 pkl 12/25 01:15 Order name: NT PRO-BNP; Complete Time: 05:24 pkl 12/25 01:15 Order name: PT-INR; Complete Time: 05:24 pkl 12/25 01:15 Order name: Troponin (emerg Dept Use Only); Complete Time: 05:24 pkl 12/25 01:15 Order name: XRAY Chest (1 view) pkl 12/25 01:15 Order name: EKG; Complete Time: 01:16 pkl 12/25 01:15 Order name: Cardiac monitoring; Complete Time: : pkl 12/25 01:15 Order name: EKG - Nurse/Tech; Complete Time: 01:36 pkl 12/25 01:15 Order name: IV Saline Lock; Complete Time: pkl 12/25 01:15 Order name: Labs collected and sent; Complete Time: pkl 12/25 01:15 Order name: O2 Per Protocol; Complete Time: :36 pkl 12/25 01:15 Order name: O2 Sat Monitoring; Complete Time: :36 pkl Administered Medications: 01:36 Drug: NS 0.9% 1000 ml Route: IV; Rate: 125 ml/hr; Site: left antecubital; ea 05:41 Follow up: Response: No adverse reaction; IV Status: Completed infusion; IV Intake: ea 500ml Disposition Summary: 12/25/20 05:31 Discharge Ordered Location: Home pkl Problem: new pkl Symptoms: have improved pkl Condition: Stable pkl Diagnosis - Transient hypertension pkl Followup: pkl - With: Reese Jenkins DO - When: 2 - 3 days - Reason: Re-evaluation by your physician Forms: - Medication Reconciliation Form pkl - Thank You Letter pkl - Antibiotic Education pkl - Prescription Opioid Use pkl Signatures: Dispatcher [employer] Pablo Tran MD MD pkl Gabrielle Castro RN RN Marta Brown RN RN william
--- NOTE | 2020-12-25 05:31 | ER ---
Nurse's Notes [facility] Name: Alfredo Escobar Age: 60 yrs Sex: Male : 1960 Arrival Date: 12/24/2020 Time: 23:50 Bed 8 Private MD: Reese Jenkins Diagnosis: Transient hypertension Presentation: 12/25 00:08 Chief complaint: Patient states: he was feeling bad so he checked his blood pressure at home and it was 175/99 so he took carvedilol and klonopin also his pulse was irregular. Coronavirus screen: At this time, the client does not indicate any symptoms associated with coronavirus-19. Ebola Screen: No symptoms or risks identified at this time. Note pt was seen by PCP today and was told his prostate was severely infected. Onset of symptoms was December 25, 2020. 00:08 Method Of Arrival: Ambulatory bb 01:37 Initial Sepsis Screen: Does the patient meet any 2 criteria? No. Patient's initial ea sepsis screen is negative. Does the patient have a suspected source of infection? No. Patient's initial sepsis screen is negative. Risk Assessment: Do you want to hurt yourself or someone else? Patient reports no desire to harm self or others. 01:37 Acuity: BUCKY 3 ea Historical: - Allergies: 00:10 Bactrim; bb 00:10 Iodinated Contrast Media - IV Dye; bb 00:10 Iodine; bb 00:10 Keflex; bb 00:10 Latex, Natural Rubber; bb 00:10 Levaquin; bb 00:10 promethazine HCl; bb 00:10 Toradol; bb - Immunization history:: Adult Immunizations up to date, Client reports having NOT received the Covid vaccine. - Social history:: Smoking status: Patient denies any tobacco usage or history of. Screenin:36 Abuse screen: Denies threats or abuse. Nutritional screening: No deficits noted. ea Tuberculosis screening: No symptoms or risk factors identified. Fall Risk IV access (20 points). Assessment: 01:37 General: Appears in no apparent distress. Behavior is cooperative. Pain: Denies pain. ea Neuro: Level of Consciousness is awake, alert, obeys commands, Oriented to person, place, time. Cardiovascular: Patient's skin is warm and dry. Respiratory: Airway is patent Respiratory effort is even, unlabored, Respiratory pattern is regular, symmetrical. Derm: Skin is pink, warm \T\ dry. 02:40 Reassessment: Patient and/or family updated on plan of care and expected duration. Pain ea level reassessed. Patient is alert, oriented x 3, equal unlabored respirations, skin warm/dry/pink. 03:31 Reassessment: Patient appears in no apparent distress at this time. Patient and/or em family updated on plan of care and expected duration. Pain level reassessed. Patient is alert, oriented x 3, equal unlabored respirations, skin warm/dry/pink. 04:28 Reassessment: Patient appears in no apparent distress at this time. Patient and/or em family updated on plan of care and expected duration. Pain level reassessed. Patient is alert, oriented x 3, equal unlabored respirations, skin warm/dry/pink. 05:08 Reassessment: Patient and/or family updated on plan of care and expected duration. Pain ea level reassessed. Patient is alert, oriented x 3, equal unlabored respirations, skin warm/dry/pink. 05:40 Reassessment: Patient and/or family updated on plan of care and expected duration. Pain ea level reassessed. Patient is alert, oriented x 3, equal unlabored respirations, skin warm/dry/pink. Discharge instruction given to patient verbalized the understanding of instruction Patient states feeling better. Patient states symptoms have improved. Vital Signs: 00:08 BP 134 / 91; Pulse 63; Resp 16 S; Temp 98.6(O); Pulse Ox 99% on R/A; Weight 86.18 kg bb (R); Height 5 ft. 10 in. (177.80 cm) (R); 01:38 BP 127 / 77; Pulse 55; Resp 18; Pulse Ox 99% ; ea 02:40 BP 129 / 69; Pulse 54; Resp 18; Pulse Ox 99% ; ea 03:31 BP 150 / 89; Pulse 53; Resp 16; Pulse Ox 99% on R/A; em 04:28 BP 140 / 75; Pulse 50; Resp 16; Pulse Ox 99% ; ea 05:08 BP 142 / 79; Pulse 53; Resp 18; Pulse Ox 99% ; ea 00:08 Body Mass Index 27.26 (86.18 kg, 177.80 cm) ED Course: 12/24 23:50 Patient arrived in ED. es 23:50 Reese Jenkins DO is Private Physician. es 12/25 00:10 Arm band placed on Patient placed in an exam room, on a stretcher, on pulse oximetry. bb 01:06 Pablo Swartz MD is Attending Physician. pkl 01:15 Marta Gracia RN is Primary Nurse. ea 01:25 XRAY Chest (1 view) In Process Unspecified. EDMS 01:36 Inserted saline lock: 20 gauge in left antecubital area, using aseptic technique. ea 01:37 Triage completed. ea 01:37 Patient has correct armband on for positive identification. Bed in low position. Call ea light in reach. Side rails up X2. 05:30 Reese Jenkins DO is Referral Physician. pkl 05:40 No provider procedures requiring assistance completed. IV discontinued, intact, ea bleeding controlled, No redness/swelling at site. Pressure dressing applied. Administered Medications: 01:36 Drug: NS 0.9% 1000 ml Route: IV; Rate: 125 ml/hr; Site: left antecubital; ea 05:41 Follow up: Response: No adverse reaction; IV Status: Completed infusion; IV Intake: ea 500ml Intake: 05:41 IV: 500ml; Total: 500ml. ea Outcome: 05:31 Discharge ordered by . pkl 05:40 Discharged to home ambulatory, with family. ea 05:40 Condition: stable 05:40 Discharge instructions given to patient, Instructed on discharge instructions, follow up and referral plans. Demonstrated understanding of instructions, follow-up care. 05:41 Patient left the ED. ea Signatures: Dispatcher [employer] EDND Pablo Swartz MD MD pkl Salyer, Edna es Munoz, Edgar RN Gabrielle Jason RN RN bb Antunez, Elena, RN RN ea Corrections: (The following items were deleted from the chart) 04:29 04:28 BP 140 / 75; Pulse 46bpm; Resp 16bpm; Pulse Ox 99%; ea ea
[2020-12-25 05:49] VITALS: TEMP 98.6; O2SAT 99
[2020-12-25 05:58] VITALS: BP 142/79
--- NOTE | 2020-12-25 08:08 | RAD REPORT ---
EXAM DESCRIPTION: RAD - Chest Single View - 12/25/2020 1:25 am CLINICAL HISTORY: CHEST PAIN COMPARISON: September 11 TECHNIQUE: AP portable chest image was obtained 12/25/2020 1:25 am . FINDINGS: Lung volumes are low compared to prior study. This accentuates a baseline interstitial pat tern. No peripheral mass or consolidation. No significant failure or volume overload. Granulomatous t ype calcifications are present at the left hilum and in the left lung field matching the prior study. Heart and vasculature are normal. No measurable pleural effusion and no pneumothorax. No acute bony abnormality seen. No acute aortic findings suspected. IMPRESSION: No acute cardiopulmonary process. Above detailed findings are stable from comparison.
== END 2020-12-25 05:41 | disposition home or self-care (01) ==
LOC: ER 23:45
DX: R03.0 Elevated blood-pressure reading, without diagnosis of hypertension (principal); Z88.1 Allergy status to other antibiotic agents; Z88.5 Allergy status to narcotic agent; Z91.040 Latex allergy status; Z91.041 Radiographic dye allergy status; Z91.048 Other nonmedicinal substance allergy status
CPT/HCPCS: 96361; 93005; 85025; 80048; 36415; 83735; 85610; 80076; 84484; 83880; 71045; 96360; 99284; J7030

== ENCOUNTER 2021-05-15 22:20 | Emergency (ER) | payer OTHER ==
--- OUTSIDE RECORDS SUMMARY | 2021-05-15 22:24 | XMS REPORT | Continuity of Care Document ---
:1960 Author Organization [facility] t Address [address] [place] [address] Care Team Providers Name Role Phone GHULAM GEORGE Primary Care Physician Unavailable Evelin CALDERA S Attending Clinician Doctor Unassigned, Name Attending Clinician Unavailable Ajibade_O_AH Attending Clinician Unavailable Ige-Odunuga_J_AH Attending Clinician Unavailable Theo Hernandez NP Attending Clinician Theo HERNANDEZ Attending Clinician Unavailable Ajibade_O_AH Admitting Clinician Unavailable Ige-Odunuga_J_AH Admitting Clinician Unavailable Theo HERNANDEZ Admitting Clinician Unavailable Payers Payer Name Policy Type Policy Number Effective Date Expiration Date S herbie [facility] [place] - [id number] 2019 [employer] 00:00:00 (MEDICARE REPLACEMENT/ADVANT AGE - HMO) Problems Condition Condition Condition Status Onset Resolution Last Treating Co mments Source Name Details Category Date Date Treatment Clinician Date No known No known Disease Unive rs active active ity of problems problems [facility] Allergies, Adverse Reactions, Alerts Allergy Allergy Status Severity Reaction(s) Onset Inactive Treating Comm ents Source Name Type Date Date Clinician Iodides Florencioi Active Hives Univers ty to 12-06 ity of adverse 00:00: [place] reaction 00 Medical s Branch Latex Propensi Active Rash Univers ty to 12-06 ity of adverse 00:00: [place] reaction 00 Medical s Branch Levoflox Propensi Active Anaphylaxis U nivers acin ty to 12-06 ity of adverse 00:00: [place] reaction 00 Medical s Branch Ketorola Propensi Active Other - See Pin U nivers c ty to comments 12-06 needle ity of Trometha adverse 00:00: pains to [place] mine reaction 00 stomach Medical s Branch IODIDES DRUG Active Hives Univers 12-06 ity of 00:00: [place] 00 Medical Branch LATEX DRUG Active Rash Univers INGREDI 12-06 ity of 00:00: [place] 00 Medical Branch LEVOFLOX DRUG Active Anaphylaxis Uni vers ACIN INGREDI 12-06 ity of 00:00: [place] 00 Medical Branch KETOROLA DRUG Active Other-Cmnt Univ ers C INGREDI 12-06 ity of TROMETHA 00:00: [place] MINE 00 Medical Branch Keflex Adverse Active rash [facility] Phenerga Adverse Active hives [facility] Bactrim Adverse Active rash [facility] Levaquin Adverse Active stops [facility] Reaction breathing [facility] Social History Social Habit Start Date Stop Date Quantity Comments Source Exposure to Not sure [facility] SARS-CoV-2 (event) [facility] Sex Assigned At [birth year] [facility] 00:00:00 00:00:00 Medical Armour Smoking Status Start Date Stop Date Source Unknown if ever smoked [facility] Medications Ordered Filled Start Stop Current Ordering Indication Dosage Frequency Signature Comments Components Source Medication Medication Date Date Medication? Clinician (SIG) Name Name acyclovir 5 Yes [id number] Apply to Univers % ointment 2-16 area(s) 5 ity of 00:00: (five) [place] 00 times Medical daily. Branch acyclovir 5 Yes [id number] Apply to Univers % ointment 2-16 area(s) 5 ity of 00:00: (five) [place] 00 times Medical daily. Branch acyclovir 5 2020-0 Yes [id number] Apply to Univers % ointment 2-16 area(s) 5 ity of 00:00: (five) [place] 00 times Medical daily. Branch Aspirin 81 Aspirin 81 2017-0 Yes Esthela [address] [facility] 4-12 Coffee [facility] - 00:[facility]: [facility] 00 l [facility] ent Clinics Albuterol Albuterol 2014-06 Yes Esthela [address] [facility] [facility] Sulfate HFA Sulfate HFA 1-25 Coffee [facility] - 00:[facility]: [facility] HYDROcodone Yes 1{tbl} Take 1 Tab Univers -acetaminop 7-04 by mouth ity of hen (NORCO) 06:42: every 6 Shay as 7.5-325 mg 52 (six) Medical per tablet hours as Branc h needed for Pain. LIPASE/PROT Yes Take by Un tavo EASE/AMYLAS 7-04 mouth. ity of E (CREON 10 06:42: [place] ORAL) 52 Medical Branch carvedilol Yes 25mg Take 25 mg U nivers (COREG) 25 7-04 by mouth 2 ity of mg tablet 06:42: (two) [place] 52 times Medical daily with Branch meals. HYDROcodone Yes 1{tbl} Take 1 Tab Univers -acetaminop 7-04 by mouth ity of hen (NORCO) 06:42: every 6 Shay as 7.5-325 mg 52 (six) Medical per tablet hours as Branc h needed for Pain. LIPASE/PROT Yes Take by Un tavo EASE/AMYLAS 7-04 mouth. ity of E (CREON 10 06:42: [place] ORAL) 52 Medical Branch carvedilol Yes 25mg Take 25 mg U nivers (COREG) 25 7-04 by mouth 2 ity of mg tablet 06:42: (two) [place] 52 times Medical daily with Branch meals. HYDROcodone Yes 1{tbl} Take 1 Tab Univers -acetaminop 7-04 by mouth ity of hen (NORCO) 06:42: every 6 Shay as 7.5-325 mg 52 (six) Medical per tablet hours as Branc h needed for Pain. LIPASE/PROT Yes Take by Un tavo EASE/AMYLAS 7-04 mouth. ity of E (CREON 10 06:42: [place] ORAL) 52 Medical Branch carvedilol 2014-0 Yes 25mg Take 25 mg U nivers (COREG) 25 7-04 by mouth 2 ity of mg tablet 06:42: (two) [place] 52 times Medical daily with Branch meals. metroNIDAZO 2015-0 Yes 500mg Take 1 Tab Univers LE (FLAGYL) 7-04 by mouth 2 it y of 500 mg 00:00: (two) [place] tablet 00 times Medical daily. Branch proMETHazin 2014-0 Yes 25mg Take 1 Tab Univers e 7-04 by mouth ity of (PHENERGAN) 00:00: every 6 Shay as 25 mg 00 (six) Medical tablet hours as Branch needed for Nausea and Vomiting (N/V). metroNIDAZO 2015-0 Yes 500mg Take 1 Tab Univers LE (FLAGYL) 7-04 by mouth 2 it y of 500 mg 00:00: (two) [place] tablet 00 times Medical daily. Branch proMETHazin 2014-0 Yes 25mg Take 1 Tab Univers e 7-04 by mouth ity of (PHENERGAN) 00:00: every 6 Shay as 25 mg 00 (six) Medical tablet hours as Branch needed for Nausea and Vomiting (N/V). metroNIDAZO 2015-0 Yes 500mg Take 1 Tab Univers LE (FLAGYL) 7-04 by mouth 2 it y of 500 mg 00:00: (two) [place] tablet 00 times Medical daily. Branch proMETHazin 0 Yes 25mg Take 1 Tab Univers e 7-04 by mouth ity of (PHENERGAN) 00:00: every 6 Shay as 25 mg 00 (six) Medical tablet hours as Branch needed for Nausea and Vomiting (N/V). Clonazepam Clonazepam Yes Esthela TAKE [address] [facility] [facility] Coffee TABLET BY [facility] - MOUTH Memoria TWICE A l DAY [facility] Carvedilol Carvedilol Yes Esthela take [address] [facility] Coffee tablet by [facility] - mouth Memoria twice a l day [facility] Famotidine Famotidine Yes Esthela [address] [facility] [address] Coffee [facility] Protonix Protonix Yes Esthela [address] Coffee kes - [facility] ent Clinics Dicyclomine Dicyclomine Yes Esthela [address] [facility] HCl HCl [facility] Ventolin Ventolin Yes Esthela [address] HFA HFA Coffee [facility] Valsartan Valsartan Yes Esthela [address] [facility] Coffee [facility] Hydrocodone Hydrocodone Yes Esthela (Schedule [facility] -Acetaminop -Acetaminop Coffee II Drug) [facility] - hen hen TK 1 T PO Memoria TID l Outpati ent Clinics Creon Creon No Esthela take by [facility] 12-23 Coffee mouth 1 [facility] - 00:00 capsule 3 Memoria :00 times a l day as Outpati directed ent Clinics Vital Signs Vital Name Observation Time Observation Value Comments Source Oxygen saturation in 2020-12-28 20:04:00 97 /min [facility] Arterial blood by [facility] Pulse oximetry Branch Systolic blood 2020-12-28 20:04:00 155 mm[Hg] [facility] Diastolic blood 2020-12-28 20:04:00 82 mm[Hg] Unive [facility] Heart rate 2020-12-28 20:04:00 61 /min [facility] Body temperature 2020-12-28 20:04:00 36.67 Jing [facility] Respiratory rate 2020-12-28 20:04:00 16 /min [facility] Body height 2020-12-28 20:04:00 177.8 cm [facility] Body weight 2020-12-28 20:04:00 86.183 kg [facility] BMI 2020-12-28 20:04:00 27.26 kg/m2 [facility] Systolic blood 2019-07-22 04:00:00 147 mm[Hg] [facility] Diastolic blood 2019-07-22 04:00:00 87 mm[facility]Hg[facility] 2019-07-22 04:00:00 54 /min [facility] Respiratory rate 2019-07-22 04:00:00 20 /min [facility] Oxygen saturation in 2019-07-22 04:00:00 99 /min University of Arterial blood by [facility] Pulse oximetry Branch Body temperature 2019-07-21 23:21:00 37 Jing [facility]ity [facility] [place] [facility] Body weight 2019-07-21 23:21:00 86.183 kg [facility] [place] [facility] BMI 2019-07-21 23:21:00 27.26 kg/m2 [facility] [place] [facility] Systolic blood 2019-07-22 04:00:00 147 mm[Hg] Univer sity of pressure [place] [facility] Diastolic blood 2019-07-22 04:00:00 87 mm[Hg] Unive rsity of pressure [facility] Branch Heart rate 2019-07-22 04:00:00 54 /min Universi ty of [facility] Branch Respiratory rate 2019-07-22 04:00:00 20 /min Univ ersity [facility] Oxygen saturation in 2019-07-22 04:00:00 99 /min University of Arterial blood by [facility] Pulse oximetry Branch Body temperature 2019-07-21 23:21:00 37 Jing [facility] [place] [facility] Body weight 2019-07-21 23:21:00 86.183 kg [facility] [place] [facility] BMI 2019-07-21 23:21:00 27.26 kg/m2 Universi [facility] Medical Branch Procedures Procedure Date / Time Performed Performing Clinician Clinton merchant NOTICE OF PRIVACY 2020-12-28 19:58:01 Doctor Unassigned, No Univ ersity of [facility] Medical Branch CONSENT/REFUSAL FOR 2020-12-28 19:57:10 Doctor Unassigned, No Un [facility] [place] DIAGNOSIS AND Name Medical Branch TREATMENT US SCROTUM AND 2019-07-22 03:08:[address] [facility] NOTICE OF PRIVACY 2019-07-21 23:12:14 Doctor Unassigned, No Univ ersity of [facility] Name Medical Branch CONSENT/REFUSAL FOR 2019-07-21 23:07:41 Doctor Unassigned, No Un [facility] [place] DIAGNOSIS AND Name Medical Branch TREATMENT Encounters Start End Encounter Admission Attending Care Care Encounter Source Date/Time Date/Time Type Type Clinicians Facility Department ID 2021-03-24 2021-03-24 Outpatient [facility] [id number] [facility] 2021-02-23 2021-02-23 [facility] [id number] [facility] 2021-02-22 2021-02-22 [facility] [id number] [facility] 2020-12-28 2020-12-28 Emergency [place], [facility] [id number] Univers 15:10:00 16:55:00 Shania Nazario Ware [id number] i ty [facility] [id number] [facility] [id number] [facility] 084 Branch 2020-12-28 2020-12-28 Emergency X [facility] ERT [id number] Univers 14:57:00 14:57:00 ity of [facility] 2020-12-28 2020-12-28 Orders Doctor POPPY [id number] Univers 00:00:00 00:00:00 Only Unassigned, RAJIV [id number] ity of [place] [facility] [id number] [facility] [id number] [facility] 009 Branch 2020-12-24 2020-12-24 [facility] [id number] [facility] 2020-12-17 2020-12-17 [facility] [id number] [facility] 2020-12-04 2020-12-04 [facility] [id number] [facility] 2020-10-22 2020-10-22 [facility] [id number] [facility] 2020-10-15 2020-10-15 [facility] [id number] [facility] 2020-10-07 2020-10-07 Outpatient [facility] [id number] [facility] 2020-09-07 2020-09-07 Outpatient [facility] [id number] [facility] 2020-08-06 2020-08-06 Outpatient [facility] [id number] [facility] 2020-07-09 2020-07-09 Outpatient [facility] [id number] [facility] 2020-06-09 2020-06-09 Outpatient [facility] [id number] [facility] 2020-05-21 2020-05-21 Outpatient [facility] [id number] [facility] 2020-05-14 2020-05-14 Outpatient [facility] [id number] [facility] 2020-04-28 2020-04-28 Outpatient [facility] [id number] [facility] 2020-04-16 2020-04-16 Outpatient [facility] [id number] [facility] 2020-03-18 2020-03-18 Outpatient [facility] [id number] [facility] 2020-03-18 2020-03-18 Outpatient [facility] [id number] [facility] 2020-03-10 2020-03-10 Outpatient [facility]MLC [facility] [id number] [facility] 00:00:00 00:00:00 Marthadoroteo - Willjuliano mejia Outpati ent Clinics 2020-01-30 2020-01-30 Outpatient Ajibade_O_A VFP VFP [phone] [facility] 04:28:00 04:28:00 H [id number] Family Practic e 2020-01-30 2020-01-30 Outpatient Ajibade_O_A VFP VFP [id number] [facility] 04:28:00 04:28:00 H [id number] Family Practic e 2020-01-30 2020-01-30 Outpatient Ajibade_O_A VFP VFP [phone] [facility] 04:28:00 04:28:00 H [id number] Family Practic e 2020-01-30 2020-01-30 Outpatient Ajibade_O_A VFP VFP [phone] [facility] 04:28:00 04:28:00 H [id number] Family Practic e 2019-07-24 2019-07-24 Outpatient Ige-Odunuga VFP VFP [phone] [facility] 07:17:00 07:17:00 _J_AH [id number] Family Practic e 2019-07-24 2019-07-24 Outpatient Ige-Odunuga VFP VFP [phone] [facility] 07:17:00 07:17:00 _J_AH [id number] Family Practic e 2019-07-21 2019-07-21 [facility] [id number] 18:06:23 22:09:00 Lucho Layton [id number] [place] [id number] [place] [address] [id number] [facility] 2019-07-21 2019-07-21 [facility] [id number] Univers 18:06:23 22:09:00 LUCHO catherine [facility] 2019-07-21 2019-07-21 [facility] [id number] Univers 18:06:23 22:09:00 Lucho Layton [id number] ity [facility] [id number] [facility] [id number] [address] 2019-07-15 2019-07-15 [facility] [id number] [facility] 15:01:00 15:01:00 t Specialty/U Martha kes - Specialty rology Memori a /Urology Clinic l Clinic Outpati ent Clinics 2019-07-09 2019-07-09 [facility] [id number] [address] 16:46:00 16:46:00 t Specialty/U Martha kes - Specialty rology Memori a /Urology Clinic l Clinic Outpati ent Clinics 2019-07-08 2019-07-08 [facility] [id number] [address] 14:51:00 14:51:00 t Specialty/U Martha kes - Specialty rology Memori a /Urology Clinic l Clinic Outpati ent Clinics 2019-07-08 2019-07-08 [facility] [id number] 08:00:00 08:00:00 t Specialty/U Martha kes - Specialty rology Memori a /Urology Clinic l Clinic Outpati ent Clinics 2019-07-04 2019-07-04 [facility] [id number] 13:00:00 13:00:00 t Specialty/U Martha kes - Specialty rology Memori a /Urology Clinic l Clinic Outpati ent Clinics 2019-07-02 2019-07-02 [facility] [id number] 14:32:00 14:32:00 t [facility] Medicine Outpati ent Clinics 2019-06-27 2019-06-27 [facility] [id number] 14:40:00 14:40:00 t [facility] Medicine Outpati ent Clinics 2019-06-03 2019-06-03 [facility] [id number] 11:17:00 11:17:00 t [facility] Medicine Outpati ent Clinics 2019-04-09 2019-04-09 [facility] [id number] 15:20:00 15:20:00 t [facility] Medicine Outpati ent Clinics 2019-02-19 2019-02-19 [facility] [id number] [facility] 14:40:00 14:40:00 t [facility] Medicine Medicine Outpati ent Clinics 2018-12-11 2018-12-11 [facility] [id number] 11:21:00 11:21:00 t [facility] l Medicine Outpati ent Clinics 2018-11-19 2018-11-19 [facility] [id number] 14:40:00 14:40:00 t [facility] Medicine l Medicine Outpati ent Clinics 2018-09-17 2018-09-17 [facility] [id number] 16:00:00 16:00:00 t [facility] Medicine Outpati ent Clinics 2018-08-02 2018-08-02 [facility] [id number] 16:07:00 16:07:00 t [place] [employer] [address] - [facility] Medicine Medicine Outpati ent Clinics 2018-08-02 2018-08-02 [facility] [id number] [facility] 16:05:00 16:05:[address] [place] [address] - Drive [facility] Medicine l Medicine Outpati ent Clinics 2018-06-18 2018-06-18 [facility] [id number] 16:00:00 16:00:00 t [facility] Medicine Outpati ent Clinics 2018-01-18 2018-01-18 [facility] [id number] 14:00:00 14:00:00 t [facility] Medicine Medicine Outpati ent Clinics 2017-09-19 2017-09-19 [facility] [id number] 09:33:00 09:33:00 t [facility] l Medicine Outpati ent Clinics 2017-09-14 2017-09-14 [facility] [id number] 13:00:00 13:00:00 t [facility] Medicine Medicine Outpati ent Clinics 2017-09-12 2017-09-12 [facility] [id number] 11:05:00 11:05:00 [facility] 2017-08-29 2017-08-29 [facility] [id number] 15:30:00 15:30:00 [facility] ent Clinics Results Test Description Test Time Test Comments Results Result Sourc e Comments US SCROTUM AND 2019-07-06 No evidence for Univ ersity of CONTENTS 7 testicular torsion. [facility] 03:19:48 No definite Branch evidence for epididymo-orchitis. RL: [id number] AFC: [id number] Ordering physician: LUCHO HERNANDEZ INDICATION: Scrotal pain COMPARISON: None TECHNIQUE: Grayscale and Doppler images of the scrotum were performed. FINDINGS: The right testis measures 3.1 x 3.6 x 2.1 cm and the left testismeasures 2.5 x 4.2 x 2.0 cm. There is normal color flow in the testesbilaterally, with normal vascular waveforms. There is a scrotal lesli onthe right. No asymmetric enlargement or hyperemia of either epididymis isseen to suggest epididymitis. There are mildly prominent scrotal vesselsbilaterally, not meeting strict ultrasound criteria for varicocele. [facility], Radiant Results Inft User - 07/21/2019 9:21 PM CSTOrdering physician: LUCHO HERNANDEZINDICATION: Scrotal painCOMPARISON: NoneTECHNIQUE: Grayscale and Doppler images of the scrotum were performed.FINDINGS: The right testis measures 3.1 x 3.6 x 2.1 cm and the left testismeasures 2.5 x 4.2 x 2.0 cm. There is normal color flow in the testesbilaterally, with normal vascular waveforms. There is a scrotal lesli onthe right. No asymmetric enlargement or hyperemia of either epididymis isseen to suggest epididymitis. There are mildly prominent scrotal vesselsbilaterally, not meeting strict ultrasound criteria for varicocele.IMPRESSI ONNo evidence for testicular torsion.No definite evidence for epididymo-orchitis. RL: [id number]: [id number] signed by Kristen Valdez MD, PhD at 07/21/2019 9:19 PM
[2021-05-15] MEDS ORDERED: NA CHLORIDE 0.9% 1,000 ML ONE (23:22)
[2021-05-15 23:42] LABS: Absolute Lymphocytes (CBC) 2.7 K/uL (0.7-4.9); Basophils % 0.3 % (0-1.3); Hematocrit 45.8 % (39.6-49.0); Lymphocytes % 32.1 % (15.3-44.8); MPV 7.9 fL (7.6-11.3); RBC Red Blood Cell Count 5.08 M/uL (4.33-5.43)
[2021-05-15 23:59] LABS: Albumin 3.8 g/dL (3.4-5.0); Bilirubin Direct 0.2 mg/dL (0-0.2); Bilirubin Total 0.6 mg/dL (0.2-1.0); Potassium 4.2 mmol/L (3.5-5.1); Protein, Total 7.6 g/dL (6.4-8.2)
--- NOTE | 2021-05-16 01:07 | EDPHYS ---
Physician Documentation [facility] Name: Alfredo Escobar Age: 60 yrs Sex: Male : 1960 Arrival Date: 05/15/2021 Time: 22:27 Bed 7 Private MD: DANUTA Physician Pla Ferreira HPI: 05/15 23:12 This 60 yrs old Male presents to ER via Ambulatory with complaints of Hip mack Pain, Leg Pain. 23:12 The patient or guardian reports decreased range of motion. mack 23:13 The patient presents with abdominal pain in the right upper quadrant, right lower mack quadrant. Onset: The symptoms/episode began/occurred 3 day(s) ago. The symptoms do not radiate. Associated signs and symptoms: none. The symptoms are described as sharp. Modifying factors: The symptoms are alleviated by remaining still, the symptoms are aggravated by movement. Severity of pain: At its worst the pain was moderate in the emergency department the pain is unchanged. The patient has not experienced similar symptoms in the past. Historical: - Allergies: 05/16 01:00 Bactrim; lp1 01:00 Iodinated Contrast Media - IV Dye; lp1 01:00 Iodine; lp1 01:00 Keflex; lp1 01:00 Latex, Natural Rubber; lp1 01:00 Levaquin; lp1 01:00 promethazine HCl; lp1 01:00 Toradol; lp1 - Home Meds: 01:00 aspirin 81 mg Oral tab 81 mg daily [Active]; carvedilol 25 mg Oral tab 2 times per day lp1 [Active]; clonazepam 2 mg Oral tab 2 times per day [Active]; Johnson 10-325 mg Oral tab twice a day [Active]; pantoprazole 40 mg Oral TbEC once daily [Active]; Ventolin HFA 90 mcg/actuation Nebulizer HFAA 2 puffs every 8 hours [Active]; - PMHx: 01:00 Anxiety; Arthritis; Crohn's; GERD; Pancreatitis; PTSD; lp1 - PSHx: 01:00 hiatal hernia; lp1 - Immunization history:: Client reports having NOT received the Covid vaccine. - Social history:: Smoking status: Patient denies any tobacco usage or history of. - Family history:: not pertinent. ROS: 05/15 23:13 Constitutional: Negative for fever, chills, and weight loss, Eyes: Negative for injury, mack pain, redness, and discharge, ENT: Negative for injury, pain, and discharge, Neck: Negative for injury, pain, and swelling, Cardiovascular: Negative for chest pain, palpitations, and edema, Respiratory: Negative for shortness of breath, cough, wheezing, and pleuritic chest pain, Back: Negative for injury and pain, : Negative for injury, bleeding, discharge, and swelling, MS/Extremity: Negative for injury and deformity, Skin: Negative for injury, rash, and discoloration, Neuro: Negative for headache, weakness, numbness, tingling, and seizure, Psych: Negative for depression, anxiety, suicide ideation, homicidal ideation, and hallucinations, Allergy/Immunology: Negative for hives, rash, and allergies, Endocrine: Negative for neck swelling, polydipsia, polyuria, polyphagia, and marked weight changes, Hematologic/Lymphatic: Negative for swollen nodes, abnormal bleeding, and unusual bruising. Abdomen/GI: Positive for abdominal pain, of the anterior aspect of right lateral abdomen, posterior aspect of right lateral abdomen, right upper quadrant and right lower quadrant. Exam: 23:13 Constitutional: This is a well developed, well nourished patient who is awake, alert, mack and in no acute distress. Head/Face: Normocephalic, atraumatic. Eyes: Pupils equal round and reactive to light, extra-ocular motions intact. Lids and lashes normal. Conjunctiva and sclera are non-icteric and not injected. Cornea within normal limits. Periorbital areas with no swelling, redness, or edema. ENT: Nares patent. No nasal discharge, no septal abnormalities noted. Tympanic membranes are normal and external auditory canals are clear. Oropharynx with no redness, swelling, or masses, exudates, or evidence of obstruction, uvula midline. Mucous membranes moist. Neck: Trachea midline, no thyromegaly or masses palpated, and no cervical lymphadenopathy. Supple, full range of motion without nuchal rigidity, or vertebral point tenderness. No Meningismus. Chest/axilla: Normal chest wall appearance and motion. Nontender with no deformity. No lesions are appreciated. Cardiovascular: Regular rate and rhythm with a normal S1 and S2. No gallops, murmurs, or rubs. Normal PMI, no JVD. No pulse deficits. Respiratory: Lungs have equal breath sounds bilaterally, clear to auscultation and percussion. No rales, rhonchi or wheezes noted. No increased work of breathing, no retractions or nasal flaring. Back: No spinal tenderness. No costovertebral tenderness. Full range of motion. Male : Normal genitalia with no discharge or lesions. Skin: Warm, dry with normal turgor. Normal color with no rashes, no lesions, and no evidence of cellulitis. MS/ Extremity: Pulses equal, no cyanosis. Neurovascular intact. Full, normal range of motion. Neuro: Awake and alert, GCS 15, oriented to person, place, time, and situation. Cranial nerves II-XII grossly intact. Motor strength 5/5 in all extremities. Sensory grossly intact. Cerebellar exam normal. Normal gait. Psych: Awake, alert, with orientation to person, place and time. Behavior, mood, and affect are within normal limits. 23:13 Abdomen/GI: Inspection: distension, Bowel sounds: normal, Palpation: moderate abdominal tenderness, in the right lower quadrant, Liver: no appreciated palpable abnormalities, Hernia: not appreciated. Vital Signs: 22:39 BP 158 / 91; Pulse 69; Resp 16; Temp 98.6; Pulse Ox 100% on R/A; Weight 86.18 kg; da3 Height 5 ft. 10 in. (177.80 cm); 22:39 Body Mass Index 27.26 (86.18 kg, 177.80 cm) da3 MDM: 22:37 Patient medically screened. mack 23:15 Differential diagnosis: pancreatitis, Pyelonephritis, urinary tract infection. Data [facility] reviewed: vital signs, nurses notes, lab test result(s), radiologic studies, CT scan. 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 05/15 23:08 Order name: Basic Metabolic Panel; Complete Time: 00:31 [facility] 05/15 23:08 Order name: CBC with Diff; Complete Time: 00: [facility] 05/15 23:08 Order name: Hepatic Function; Complete Time: 00:31 [facility] 05/15 23:08 Order name: Lipase; Complete Time: 00:31 [facility] 05/15 23:08 Order name: CT Abd/Pelvis - IV Contrast Only [facility] 05/15 23:08 Order name: IV Saline Lock; Complete Time: 00:38 [facility] 05/15 23:08 Order name: Labs collected and sent; Complete Time: 00:38 mack Administered Medications: 05/16 00:45 Drug: NS 0.9% 1000 ml Route: IV; Rate: 1 bolus; Site: right forearm; lp1 01:30 Follow up: IV Status: Completed infusion; IV Intake: 1000ml lp1 01:30 Not Given (Patient Refused): Ketorolac 30 mg IVP once sm5 01:30 Not Given (Patient Refused): Zofran (Ondansetron) 4 mg IVP once; over 2 minutes sm5 01:30 Drug: Benadryl (diphenhydrAMINE) 25 mg Route: IVP; Site: right antecubital; sm5 Disposition Summary: 05/16/21 01:05 Discharge Ordered Location: Home [facility] Problem: new mack Symptoms: have improved mack Condition: Stable mack Diagnosis - Abdominal tenderness mack - Unspecified symptoms and signs involving the musculoskeletal system - pain mack Followup: mack - With: Private Physician - When: 2 - 3 days - Reason: Recheck today's complaints, Continuance of care, Re-evaluation by your physician Discharge Instructions: - Discharge Summary Sheet mack - Abdominal Pain, Adult mack - Musculoskeletal Pain mack - Abdominal Pain, Adult, [id number] Forms: - Medication Reconciliation Form [facility] - Thank You Letter [facility] - Antibiotic Education [facility] - Prescription Opioid Use [facility] Prescriptions: - Ibuprofen 600 mg Oral Tablet - take 1 tablet by ORAL route every 6 hours As needed take with food; 20 tablet; [facility] Refills: 0, Product Selection Permitted - Cyclobenzaprine 5 mg Oral Tablet - take 1 tablet by ORAL route 3 times per day As needed; 15 tablet; Refills: 0, [facility] Product Selection Permitted Signatures: Dispatcher [employer] Pal Leyva MD MD cha Pena, Laura RN RN lp1 Josiah Méndez RN RN da3 Deysi Medrano RN RN sm5
--- NOTE | 2021-05-16 01:07 | ER ---
Nurse's Notes [facility] Name: Alfredo Escobar Age: 60 yrs Sex: Male : 1960 Arrival Date: 05/15/2021 Time: 22:27 Bed 7 Private MD: Diagnosis: Abdominal tenderness;Unspecified symptoms and signs involving the musculoskeletal system-pain Presentation: 05/15 22:39 Chief complaint: Patient states: right lower abd pain. Coronavirus screen: Vaccine da3 status: Patient reports being unvaccinated. Ebola Screen: No symptoms or risks identified at this time. Initial Sepsis Screen: Does the patient meet any 2 criteria? No. Patient's initial sepsis screen is negative. Does the patient have a suspected source of infection? No. Patient's initial sepsis screen is negative. Risk Assessment: Do you want to hurt yourself or someone else? Patient reports no desire to harm self or others. Onset of symptoms was May 11, 2021. 22:39 Method Of Arrival: Ambulatory da3 22:39 Acuity: BUCKY 3 da3 Triage Assessment: 22:39 General: Appears in no apparent distress. uncomfortable, Behavior is calm, cooperative. da3 Pain: Complains of pain in abdomen Pain currently is 10 out of 10 on a pain scale. Historical: - Allergies: 05/16 01:00 Bactrim; lp1 01:00 Iodinated Contrast Media - IV Dye; lp1 01:00 Iodine; lp1 01:00 Keflex; lp1 01:00 Latex, Natural Rubber; lp1 01:00 Levaquin; lp1 01:00 promethazine HCl; lp1 01:00 Toradol; lp1 - Home Meds: 01:00 aspirin 81 mg Oral tab 81 mg daily [Active]; carvedilol 25 mg Oral tab 2 times per day lp1 [Active]; clonazepam 2 mg Oral tab 2 times per day [Active]; Spencer 10-325 mg Oral tab twice a day [Active]; pantoprazole 40 mg Oral TbEC once daily [Active]; Ventolin HFA 90 mcg/actuation Nebulizer HFAA 2 puffs every 8 hours [Active]; - PMHx: 01:00 Anxiety; Arthritis; Crohn's; GERD; Pancreatitis; PTSD; lp1 - PSHx: 01:00 hiatal hernia; lp1 - Immunization history:: Client reports having NOT received the Covid vaccine. - Social history:: Smoking status: Patient denies any tobacco usage or history of. - Family history:: not pertinent. Screenin:36 Abuse screen: Denies threats or abuse. Denies injuries from another. Nutritional sm5 screening: No deficits noted. Tuberculosis screening: No symptoms or risk factors identified. Fall Risk None identified. Assessment: 05/15 23:00 General: Appears uncomfortable, Behavior is appropriate for age. Pain: Complains of lp1 pain in anterior aspect of right lateral abdomen and posterior aspect of right lateral abdomen Pain currently is 7 out of 10 on a pain scale. Quality of pain is described as aching, crampy. Neuro: Level of Consciousness is awake, alert, obeys commands, Oriented to person, place, time, situation. Cardiovascular: Patient's skin is warm and dry. Respiratory: Respiratory effort is even, unlabored. GI: Abdomen is non-distended. : No signs and/or symptoms were reported regarding the genitourinary system. EENT: No signs and/or symptoms were reported regarding the EENT system. Derm: Skin is pink, warm \T\ dry. Musculoskeletal: No deficits noted. 05/16 01:35 General: Appears in no apparent distress. Behavior is cooperative. Neuro: No deficits sm5 noted. Neuro: Level of Consciousness is awake, alert, Oriented to person, place, time, situation. Cardiovascular: No deficits noted. Respiratory: No deficits noted. GI: No deficits noted. Vital Signs: 05/15 22:39 BP 158 / 91; Pulse 69; Resp 16; Temp 98.6; Pulse Ox 100% on R/A; Weight 86.18 kg; da3 Height 5 ft. 10 in. (177.80 cm); 22:39 Body Mass Index 27.26 (86.18 kg, 177.80 cm) da3 ED Course: 22:27 Patient arrived in ED. as 22:37 Pal Ferreira MD is Attending Physician. mack 22:39 Arm band placed on right wrist. da3 22:43 Triage completed. da3 23:22 Sophy Worley, RN is Primary Nurse. lp1 23:32 Inserted saline lock: 20 gauge in right antecubital area, using aseptic technique. oe Blood collected. 05/16 00:46 CT Abd/Pelvis - IV Contrast Only In Process Unspecified. EDMS 01:36 Bed in low position. Call light in reach. Side rails up X2. sm5 01:36 No provider procedures requiring assistance completed. IV discontinued, intact, sm5 bleeding controlled, No redness/swelling at site. Pressure dressing applied. 02:03 Inserted saline lock: 22 gauge in left hand, using aseptic technique. lp1 Administered Medications: 00:45 Drug: NS 0.9% 1000 ml Route: IV; Rate: 1 bolus; Site: right forearm; lp1 01:30 Follow up: IV Status: Completed infusion; IV Intake: 1000ml lp1 01:30 Not Given (Patient Refused): Ketorolac 30 mg IVP once sm5 01:30 Not Given (Patient Refused): Zofran (Ondansetron) 4 mg IVP once; over 2 minutes sm5 01:30 Drug: Benadryl (diphenhydrAMINE) 25 mg Route: IVP; Site: right antecubital; sm5 Intake: 01:30 IV: 1000ml; Total: 1000ml. lp1 Outcome: 01:05 Discharge ordered by . [facility] 01:36 Discharged to home ambulatory. sm5 01:36 Condition: good 01:36 Discharge instructions given to patient, Instructed on discharge instructions, follow up and referral plans. medication usage, Demonstrated understanding of instructions, follow-up care, medications, Prescriptions given X 3. 02:06 Patient left the ED. lp1 Signatures: Dispatcher [employer] EDMS Pal Ferreira MD MD cha Martinez, Amelia as Pena, Laura, RN RN lp1 Travsi Edwards David, RN RN 3 Deysi Medrano RN RN sm5
[2021-05-16] MEDS ORDERED: KETOROLAC 30 MG/ML INJ ONE (01:25)
[2021-05-16] MEDS ORDERED: ONDANSETRON 4 MG/2 ML VIAL ONE (01:25)
[2021-05-16] MEDS ORDERED: DIPHENHYDRAMINE 50 MG/ML VIAL ONE (01:25)
[2021-05-16 02:15] VITALS: BP 158/91; TEMP 98.6; O2SAT 100
--- NOTE | 2021-05-17 10:47 | RAD REPORT ---
EXAM DESCRIPTION: CT - Abdomen Pelvis W Contrast - 05/16/2021 6:41 am CLINICAL HISTORY: 60 years Male ABD PAIN TECHNIQUE: CT of the abdomen and pelvis using intravenous contrast in arterial and portal venous pha ses. All CT scans at this facility use dose modulation, iterative reconstruction, and/or weight based dosing when appropriate to reduce radiation dose to as low as reasonably achievable. COMPARISON: 12/16/2020. FINDINGS: Lower chest: Lung bases are clear. Abdomen/Pelvis: Liver: No focal lesion. Gallbladder: No calcified stone. Pancreas: Within normal limits. Spleen: Calcified granulomas are present. Kidney: No stone or hydronephrosis. Left renal cyst measuring 2.2 x 1.9 cm. Adrenal glands: Within normal limits. Vascular structures: Unremarkable. Bowel: Diverticulosis without inflammatory changes. No bowel distention. Appendix: Normal. Peritoneum: No free fluid or free air. Lymph Nodes: No lymphadenopathy. Reproductive: Unremarkable. Urinary bladder: Unremarkable. Osseous structures: Mild multilevel degenerative changes. Soft tissues: Unremarkable. IMPRESSION: No acute findings. Electronically signed by: Wisam García MD 05/16/2021 1:00 AM CUSTODIAL MANAGER Due to temporary technical issues with the PACS/Fluency reporting system, reports are being signed by the in house radiologists without review as a courtesy to insure prompt reporting. The interpreting radiologist is fully responsible for the content of the report.
== END 2021-05-16 02:06 | disposition home or self-care (01) ==
LOC: ER 22:20
DX: R29.898 Other symptoms and signs involving the musculoskeletal system (principal); F41.9 Anxiety disorder, unspecified; Z79.82 Long term (current) use of aspirin; Z88.1 Allergy status to other antibiotic agents; Z88.5 Allergy status to narcotic agent; Z91.040 Latex allergy status; Z91.048 Other nonmedicinal substance allergy status
CPT/HCPCS: 96361; 85025; 80048; 36415; 80076; 83690; 74177; 96374; 99284; Q9967; J1200; J7030; J2405

== ENCOUNTER 2021-07-17 19:16 | Observation (INO) | payer OTHER ==
--- OUTSIDE RECORDS SUMMARY | 2021-07-17 19:20 | XMS REPORT | Continuity of Care Document ---
:1960 Author Organization [facility] t Address [address] [place] [address] Care Team Providers Name Role Phone GHULAM GEORGE Primary Care Physician Unavailable Jennifer Jenkins Attending Clinician Unavailable Mandie Attending Clinician Unavailable Nazario Biswas Attending Clinician Doctor Unassigned, Name Attending Clinician Unavailable Ajibade_O_AH Attending Clinician Unavailable Ige-Odunuga_J_AH Attending Clinician Unavailable David GRACIA G Attending Clinician Theo HERNANDEZ Attending Clinician Unavailable Ajibade_O_AH Admitting Clinician Unavailable Ige-Odunuga_J_AH Admitting Clinician Unavailable Theo HERNANDEZ Admitting Clinician Unavailable Payers Payer Name Policy Type Policy Number Effective Date Expiration Date S [facility] [place] - [id number] 2019 [employer] 00:00:00 (MEDICARE REPLACEMENT/ADVANT AGE - HMO) Problems Condition Condition Condition Status Onset Resolution Last Treating Co mments Source Name Details Category Date Date Treatment Clinician Date No known No known Disease Unive rs active active ity of problems problems [facility] Allergies, Adverse Reactions, Alerts Allergy Allergy Status Severity Reaction(s) Onset Inactive Treating Comm ents Source Name Type Date Date Clinician Iodides Propensi Active Hives Univers ty to 12-06 ity [...] Quantity Comments Source Exposure to Not sure [facility] SARS-CoV-2 (event) Medica l Branch Sex Assigned At [birth year] [facility] 00:00:00 00:00:00 Medical Branch Smoking Status Start Date Stop Date Source Unknown if ever smoked [facility] Medications Ordered Filled Start Stop Current Ordering Indication Dosage Frequency Signature Comments Components Source Medication Medication Date Date Medication? Clinician (SIG) Name Name acyclovir 5 Yes [id number] Apply to Univers % ointment 2-16 area(s) 5 ity of 00:00: (five) [place] 00 times Medical daily. Branch acyclovir 5 Yes [id number] Apply to Univers % ointment 2-16 area(s) 5 ity of 00:00: (five) [place] 00 times Medical daily. Branch acyclovir 5 2019-0 Yes [id number] Apply to Univers % ointment 2-16 area(s) 5 ity of 00:00: (five) [place] 00 times Medical daily. Branch Aspirin 81 Aspirin 81 2016-0 Yes Esthela [address] [facility]12 [place] [facility] Albuterol Albuterol 2014-06 Yes Esthela [address] [facility] Sulfate HFA Sulfate HFA 1-25 [place] [facility] LIPASE/PROT Yes Take by Un tavo EASE/AMYLAS 7-04 mouth. ity of E (CREON 10 06:42: [place] ORAL) 52 Medical Branch carvedilol Yes 25mg Take 25 mg U nivers (COREG) 25 7-04 by mouth 2 ity of mg tablet 06:42: (two) [place] 52 times Medical daily with Branch meals. [...] times Medical daily with Branch meals. HYDROcodone 2014-0 Yes 1{tbl} Take 1 Tab Univers -acetaminop 7-04 by mouth ity of hen (NORCO) 06:42: every 6 Shay as 7.5-325 mg 52 (six) Medical per tablet hours as Branc h needed for Pain. metroNIDAZO 2014-0 Yes 500mg Take 1 Tab Univers LE (FLAGYL) 7-04 by mouth 2 it y of 500 mg 00:00: (two) [place] tablet 00 times Medical daily. Branch proMETHazin 2015-0 Yes 25mg Take 1 Tab Univers e 7-04 by mouth ity of (PHENERGAN) 00:00: every 6 Shay as 25 mg 00 (six) Medical tablet hours as Branch needed for Nausea and Vomiting (N/V). metroNIDAZO 2014-0 Yes 500mg Take 1 Tab Univers LE (FLAGYL) 7-04 by mouth 2 it y of 500 mg 00:00: (two) [place] tablet 00 times Medical daily. Branch proMETHazin 2014-0 Yes 25mg Take 1 Tab Univers e 7-04 by mouth ity of (PHENERGAN) 00:00: every 6 Shay as 25 mg 00 (six) Medical tablet hours as Branch needed for Nausea and Vomiting (N/V). metroNIDAZO 2014-0 Yes 500mg Take 1 Tab Univers LE [...] Clonazepam Yes Esthela TAKE [address] [facility] [place] TABLET BY [facility] - MOUTH Memoria TWICE A l DAY [facility] ent Clinics Carvedilol Carvedilol Yes Esthela take [address] [facility] [place] tablet by [facility]ukes - mouth Memoria twice a l day [facility] Famotidine Famotidine Yes Esthela [address] [facility] [place] at bedtime [facility] ent [facility] Protonix Protonix Yes Esthela [address] [place] [facility] Outpat[facility] ent Clinics Dicyclomine Dicyclomine Yes Esthela [address] [facility] HCl HCl [place] [facility] Ventolin Ventolin Yes Esthela [address] [facility] HFA HFA [place] [facility] Valsartan Valsartan Yes Esthela [address] [facility] [place] [facility] Hydrocodone Hydrocodone Yes Esthela (Schedule [facility] -Acetamin[facility] -Acetaminop [place] II Drug) [facility] - hen hen TK 1 T PO Memoria TID l Outpati ent Clinics Creon Creon No Esthela take by [facility] [place] mouth 1 [facility] - 00:00 capsule 3 Memoria :00 times a l day as Outpati directed ent Clinics Vital Signs Vital Name Observation Time Observation Value Comments Source Systolic blood 2020-12-28 20:04:00 155 mm[facility]Hg[facility] Di[facility] blood 2020-12-28 20:04:00 82 mm[Hg] Unive [facility] Heart rate 2020-12-28 20:04:00 61 /min [facility] Body temperature 2020-12-28 20:04:00 36.67 Jing [facility] Respiratory rate 2020-12-28 20:04:00 16 /min [facility] Body height 2020-12-28 20:04:00 177.8 cm [facility] Body weight 2020-12-28 20:04:00 86.183 kg [facility] BMI 2020-12-28 20:04:00 27.26 kg/m2 [facility] Oxygen saturation in 2020-12-28 20:04:00 97 /min [facility] Arterial blood by [facility] Pulse oximetry Branch Systolic blood 2019-07-22 04:00:00 147 mm[Hg] [facility] Diastolic blood 2019-07-22 04:00:00 87 mm[Hg] [facility] 2019-07-22 04:00:00 54 /min [facility] Respiratory rate 2019-07-22 04:00:00 20 /min Univ [facility] [place] [facility] Oxygen saturation in 2019-07-22 04:00:00 99 /min University of Arterial blood by [place] Medi jose manuel Pulse oximetry Branch Body temperature 2019-07-21 23:21:00 37 Jing [facility] [place] [facility] Body weight 2019-07-21 23:21:00 86.183 kg [facility] [place] [facility] BMI 2019-07-21 23:21:00 27.26 kg/m2 [facility] [place] [facility] Systolic blood 2019-07-22 04:00:00 147 mm[Hg] Univer sity of pressure [place] [facility] Diastolic blood 2019-07-22 04:00:00 87 mm[Hg] Unive rsity of pressure [place] [facility] Heart rate 2019-07-22 04:00:00 54 /min [facility] [place] [facility] Respiratory rate 2019-07-22 04:00:00 20 /min [facility] [place] [facility] Oxygen saturation in 2019-07-22 04:00:00 99 /min University of Arterial blood by [facility] Pulse oximetry Branch Body temperature 2019-07-21 23:21:00 37 Jing [facility] [place] [facility] Body weight 2019-07-21 23:21:00 86.183 kg [facility] [place] [facility] BMI 2019-07-21 23:21:00 27.26 kg/m2 [facility] [place] [facility] Procedures Procedure Date / Time Performed Performing Clinician Shana shonda NOTICE OF PRIVACY 2020-12-28 19:58:01 Doctor Unassigned, No Univ ersity [facility] Medical Branch CONSENT/REFUSAL FOR 2020-12-28 19:57:10 Doctor Unassigned, No Un [facility]ity [facility] [place] DIAGNOSIS AND Name Medical Branch TREATMENT US SCROTUM AND 2019-07-22 03:08:48 Lucho Hernandez [facility] Medical Branch NOTICE OF PRIVACY 2019-07-21 23:12:14 Doctor Unassigned, No Univ ersity of [facility] Name Medical Branch CONSENT/REFUSAL FOR 2019-07-21 23:07:41 Doctor Unassigned, No Un [facility] [place] DIAGNOSIS AND Name Medical Branch TREATMENT Encounters Start End Encounter Admission Attending Care Care Encounter Source Date/Time Date/Time Type Type Clinicians Facility Department ID 2021-06-30 Outpatient Gregory [facility] [id number] [facility] 13:05:56 [place] [id number] [facility] 2021-06-30 Outpatient Jenkins, [facility] 12:47:29 [place] [id number] [facility] 2021-06-30 Outpatient Jenkins, [facility] 12:36:27 [place] [id number] [facility] 2021-06-30 Outpatient Jenkins, [facility] 12[facility]35:26 [place] [id number] [facility] 2021-06-30 Outpatient Jenkins, [facility] 12:28:53 [place] [id number] [facility] 2021-06-30 Outpatient Jenkins, [facility] 12:26:11 [place] [id number] [facility] 2021-06-30 Outpatient Jenkins, [facility] 12:12:23 [place] [id number] [facility] 2021-06-30 Outpatient Jenkins, [facility] 12:04:45 [place] [id number] [facility] 2021-06-30 Outpatient Jenkins, [facility] 11:55:15 [place] [id number] [facility] 2021-06-30 Outpatient Jenkins, [facility] 11:52:56 [place] [id number] [facility] 2021-06-30 Outpatient Jenkins, [facility] 11:52:32 Reese [id number] [facility] 2021-06-30 Outpatient Millender, [facility] 11:02:50 Fernanda [id number] [facility] 2021-06-30 Outpatient Millender, [facility] 11:02:33 Fernanda [id number] [facility] 2021-03-24 2021-03-24 [facility] [id number] [facility] 2021-02-23 2021-02-23 [facility] [id number] [facility] 2021-02-22 2021-02-22 [facility] [id number] [facility] 2020-12-28 2020-12-28 Emergency Evelin, RUST [id number] Univers 15:10:00 16:55:00 Shania Layton [id number] i ty [facility] [id number] [facility] [id number] [facility] 084 Branch 2020-12-28 2020-12-28 Emergency X [place] ERT [id number] Univers 14:57:00 14:57:00 ity of [facility] 2020-12-28 2020-12-28 Orders Doctor POPPY [id number] Univers 00:00:00 00:00:00 Only Unassigned, RAJIV [id number] [facility] [id number] [facility] [id number] [facility] 009 Branch 2020-12-24 2020-12-24 [facility] [id number] [facility] 2020-12-17 2020-12-17 [facility] [id number] [facility] 2020-12-04 2020-12-04 [facility] [id number] [facility] 2020-10-22 2020-10-22 [facility] [id number] [facility] 2020-10-15 2020-10-15 Outpatient [facility] [id number] [facility] 2020-10-07 2020-10-07 Outpatient [facility] [id number] [facility] 2020-09-07 2020-09-07 Outpatient [facility] [id number] [facility] 2020-08-06 2020-08-06 Outpatient [facility] [id number] [facility] 2020-07-09 2020-07-09 Outpatient [facility] [id number] [facility] 2020-06-09 2020-06-09 Outpatient [facility] [id number] [facility] 2020-05-21 2020-05-21 Outpatient [facility] [id number] [facility] 2020-05-14 2020-05-14 Outpatient [facility] [id number] [facility] 2020-04-28 2020-04-28 Outpatient [facility] [id number] [facility] 2020-04-16 2020-04-16 Outpatient [facility] [id number] [facility] 2020-03-18 2020-03-18 Outpatient [facility] [id number] [facility] 2020-03-18 2020-03-18 [id number] 00[facility]00 Timur mejia Outpati ent Clinics 2020-03-10 2020-03-10 [facility] [id number] [facility] 00[facility]00 Timur mejia Outpati ent Clinics 2020-01-30 2020-01-30 Outpatient Ajibade_O_A VFP VFP [phone] [facility] 04:28:00 04:28:00 H [id number] Family Practic e 2020-01-30 2020-01-30 Outpatient Ajibade_O_A VFP VFP [phone] [place] 04:28:00 04:28:00 H [id number] Family Practic e 2020-01-30 2020-01-30 Outpatient Ajibade_O_A VFP VFP [phone] [facility] 04:28:00 04:28:00 H [id number] Family Practic e 2020-01-30 2020-01-30 Outpatient Ajibade_O_A VFP VFP [phone] [facility] 04:28:00 04:28:00 H [id number] Family Practic e 2019-07-24 2019-07-24 Outpatient Ige-Odunuga VFP VFP [phone] [facility] 07:17:00 07:17:00 _J_AH [id number] Family Practic e 2019-07-24 2019-07-24 Outpatient Ige-Odunuga VFP VFP [phone] [facility] 07:17:00 07:17:00 _J_AH [id number] Family Practic e 2019-07-21 2019-07-21 Emergency [facility] [id number] 18:06:23 22:09:00 Lucho Layton [id number] [place] [id number] [place] [id number] 2019-07-21 2019-07-21 Emergency X [facility] ERT [id number] Univers 18:06:23 22:09:00 LUCHO catherine [facility] 2019-07-21 2019-07-21 Emergency [facility] [id number] Univers 18:06:23 22:09:00 Lucho Layton [id number] [facility] [place] [id number] [facility] [id number] [place] [id number] [place] 2019-07-15 2019-07-15 [facility] [id number] [facility] 15:01:00 15:01:00 t Specialty/U Martha kes - Specialty rology Memori a /Urology Clinic l Clinic Outpati ent Clinics 2019-07-09 2019-07-09 [facility] [id number] 16:46:00 16:46:00 t Specialty/U Martha kes - Specialty rology Memori a /Urology Clinic l Clinic Outpati ent Clinics 2019-07-08 2019-07-08 [facility] [id number] [address] 14:51:00 14:51:00 t Specialty/U Martha kes - Specialty rology Memori a /Urology Clinic l Clinic Outpati ent Clinics 2019-07-08 2019-07-08 [facility] [id number] 08:00:00 08:00:00 t Specialty/U Martha kes - Specialty rology Memori a /Urology Clinic l Clinic Outpati ent Clinics 2019-07-04 2019-07-04 [facility] [id number] 13:00:00 13:00:00 t Specialty/U Martha kes - Specialty rology Memori a /Urology Clinic l Clinic Outpati ent Clinics 2019-07-02 2019-07-02 [facility] [id number] 14:32:00 14:32:00 t [facility] Family Medicine Medicine Outpati ent Clinics 2019-06-27 2019-06-27 [facility] [id number] 14:40:00 14:40:00 t [facility] Medicine Medicine Outpati ent Clinics 2019-06-03 2019-06-03 [facility] [id number] 11:17:00 11:17:00 t [facility] Medicine Medicine Outpati ent Clinics 2019-04-09 2019-04-09 [facility] [id number] 15:20:00 15:20:00 [facility] Medicine Medicine Outpati ent Clinics 2019-02-19 2019-02-19 [facility] [id number] [facility] 14:40:00 14:40:00 t [facility] Medicine Outpati ent Clinics 2018-12-11 2018-12-11 [facility] [id number] 11:21:00 11:21:00 t [facility] Medicine l Medicine Outpati ent Clinics 2018-11-19 2018-11-19 [facility] [id number] 14:40:00 14:40:00 t [facility] Medicine Outpati ent Clinics 2018-09-17 2018-09-17 [facility] [id number] 16:00:00 16:00:00 t [facility] Medicine Outpati ent Clinics 2018-08-02 2018-08-02 [facility] [id number] 16:07:00 16:07:[address] [facility] Medicine l Medicine Outpati ent Clinics 2018-08-02 2018-08-02 [facility] [id number] 16:05:00 16:05:[address] [facility] Medicine l Medicine Outpati ent Clinics 2018-06-18 2018-06-18 [facility] [id number] 16:00:00 16:00:00 [facility] Medicine l Medicine Outpati ent Clinics 2018-01-18 2018-01-18 [facility] [id number] 14:00:00 14:00:00 [facility] Medicine l Medicine Outpati ent Clinics 2017-09-19 2017-09-19 [facility] [id number] 09:33:00 09:33:00 t [facility] Medicine Medicine Outpati ent Clinics 2017-09-14 2017-09-14 Outpatient Malena Guyt [id number] 13:00:00 13:00:00 [facility] 2017-09-12 2017-09-12 Outpatient Malena Guyt [id number] [facility] 11:05:00 11:05:00 [facility] 2017-08-29 2017-08-29 Outpatient Malena Pretson [id number] 15:30:00 15:30:00 [facility] ent Clinics Results Test Description Test Time Test Comments Results Result [facility] e Comments US SCROTUM AND 2019-07-06 No evidence for Univ ersity of CONTENTS 7 testicular torsion. [facility] 03:19:48 No definite Branch evidence for epididymo-orchitis. RL: [id number] AFC: [id number] Ordering physician: LUCHO HERNANDEZ INDICATION: Scrotal pain [...] testicular torsion.No definite evidence for epididymo-orchitis. RL: [id number]: [id number] signed by Kristen Valdez MD, PhD at 07/21/2019 9:19 PM
[2021-07-17 20:15] LABS: Absolute Lymphocytes (CBC) 2.4 K/uL (0.7-4.9); Hematocrit 43.7 % (39.6-49.0); Lymphocytes % 34.6 % (15.3-44.8); MPV 7.6 fL (7.6-11.3); RBC Red Blood Cell Count 4.84 M/uL (4.33-5.43)
[2021-07-17] MEDS ORDERED: NA CHLORIDE 0.9% 1,000 ML ONE ×2 (20:18→21:52)
--- NOTE | 2021-07-17 20:23 | RAD REPORT ---
EXAM DESCRIPTION: RAD - Chest Single View - 07/17/2021 8:07 pm CLINICAL HISTORY: COUGH COMPARISON: Chest Single View dated 12/25/2020; Chest Single View dated 09/11/2020; Chest Single View d ated 09/01/2020; Chest Single View dated 06/30/2020 FINDINGS: Lines: None. Lungs: No evidence of edema or pneumonia. Calcified left-sided lung nodules. Pleural: No significant pleural effusions or pneumothorax. Cardiac: The heart size is within normal limits. Bones: No acute fractures. Other: Calcified left hilar lymph nodes. IMPRESSION: No acute cardiopulmonary disease.
[2021-07-17 20:24] LABS: Protime INR 1.05
[2021-07-17 20:38] LABS: ALT/SGPT 27 U/L (12-78); AST/SGOT 19 U/L (15-37); Albumin 3.6 g/dL (3.4-5.0); Alkaline Phosphatase 53 U/L (45-117); BUN Blood Urea Nitrogen 12 mg/dL (7-18); Bicarbonate 29 mmol/L (21-32); Bilirubin Direct 0.1 mg/dL (0-0.2); Bilirubin Total 0.6 mg/dL (0.2-1.0); Glucose Level 92 mg/dL (74-106); Lipase 133 U/L (73-393); Magnesium 2.3 mg/dL (1.8-2.4); Potassium 4.8 mmol/L (3.5-5.1); Protein, Total 7.1 g/dL (6.4-8.2); Sodium Level 137 mmol/L (136-145)
[2021-07-17 20:43] LABS: NT PRO-BNP 49 pg/mL (<125)
--- NOTE | 2021-07-17 21:19 | RAD REPORT ---
EXAM DESCRIPTION: CTAbdomen Pelvis W Contrast - 07/17/2021 9:07 pm CLINICAL HISTORY: ABD PAIN COMPARISON: Abdomen Pelvis W Contrast dated 05/16/2021; Abdomen Pelvis W Contrast dated ; CT ABD PELVIS W CONTRAST dated 01/08/2008; CT ABD PELVIS W CONTRAST dated 10/08/2007 TECHNIQUE: CT of the abdomen and pelvis was performed. All CT scans are performed using dose optimization technique as appropriate and may include automated exposure control or mA/KV adjustment according to patient size. FINDINGS: Lower chest: No acute abnormality. Liver: No acute abnormality or suspicious lesions. Biliary: No biliary ductal dilatation. Stomach: No significant focal abnormality. Duodenum: No significant focal abnormality. Pancreas: No significant abnormality. Spleen: No significant abnormality. Adrenal: No suspicious lesions. Kidney/ureter: No hydronephrosis. No renal calculi. Left upper pole renal cyst. Retroperitoneum: No retroperitoneal adenopathy. Vascular: No aneurysm. Bowel: No significant focal abnormality. Normal appendix. Diverticulosis. No evidence of acute divert iculitis . Peritoneum: No ascites or free air. Bladder: Grossly unremarkable. Reproductive: No adnexal masses. Bones: No acute fracture. Other: n/a IMPRESSION: No acute intra-abdominal or pelvic finding.
[2021-07-17 21:27] LABS: Urine Blood Negative (Negative); Urine Glucose Negative (Negative); Urine Protein Negative (Negative); Urine Specific Gravity 1.015 (1.005-1.030)
--- NOTE | 2021-07-17 21:39 | ER ---
Nurse's Notes [facility] Name: Alfredo Escobar Age: 60 yrs Sex: Male : 1960 Arrival Date: 07/17/2021 Time: 19:19 Bed 3 Private MD: Diagnosis: Lower abdominal pain, unspecified;GI Bleed/ Gastrointestinal hemorrhage, unspecified-lower Presentation: 07/17 19:28 Chief complaint: Patient states: Pt reports he leaned over 2 days ago and when he got mk back up 'I had this jabbing pain in my back that moved to be stomach and that night I started having blood in my stool'. Coronavirus screen: Vaccine status: Patient reports receiving the 2nd dose of the covid vaccine. Ebola Screen: Patient negative for fever greater than or equal to 101.5 degrees Fahrenheit, and additional compatible Ebola Virus Disease symptoms. Initial Sepsis Screen: Does the patient meet any 2 criteria? No. Patient's initial sepsis screen is negative. Does the patient have a suspected source of infection? No. Patient's initial sepsis screen is negative. Risk Assessment: Do you want to hurt yourself or someone else? Patient reports no desire to harm self or others. Onset of symptoms was July 15, 2021. 19:28 Method Of Arrival: Ambulatory 19:28 Acuity: BUCKY 3 mk Historical: - Allergies: 07/18 04:02 Bactrim; mk 04:02 Keflex; mk 04:02 Iodine; mk 04:02 Levaquin; mk 04:02 Latex, Natural Rubber; mk 04:02 promethazine HCl; mk 04:02 Toradol; mk - Home Meds: 04:02 aspirin 81 mg Oral tab 81 mg daily [Active]; carvedilol 25 mg Oral tab 2 times per day mk [Active]; clonazepam 2 mg Oral tab 2 times per day [Active]; [place] 10-325 mg Oral tab twice a day [Active]; pantoprazole 40 mg Oral TbEC once daily [Active]; Ventolin HFA 90 mcg/actuation Nebulizer HFAA 2 puffs every 8 hours [Active]; - PMHx: 04:02 Anxiety; Crohn's; Arthritis; GERD; PTSD; Pancreatitis; mk - Immunization history:: Adult Immunizations up to date. - Family history:: not pertinent. - Social history:: Smoking status: Patient denies any tobacco usage or history of. Screenin/12 20:41 Abuse screen: Denies threats or abuse. Nutritional screening: No deficits noted. mk Tuberculosis screening: No symptoms or risk factors identified. Fall Risk None identified. No fall in past 12 months (0 pts). No secondary diagnosis (0 pts). IV access (20 points). Ambulatory Aid- None/Bed Rest/Nurse Assist (0 pts). Gait- Weak (10 pts.). Mental Status- Oriented to own ability (0 pts). Total Preciado Fall Scale indicates No Risk (0-24 pts). Assessment: 20:00 General: Appears in no apparent distress. uncomfortable, Behavior is calm, cooperative, mk Smells of. Pain: Complains of pain in back Pain radiates to abdomen Pain currently is 8 out of 10 on a pain scale. Quality of pain is described as sharp, Pain began suddenly, 2-3 days ago. Is continuous. 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 Gait is steady, Speech is normal. Cardiovascular: Heart tones S1 S2 Capillary refill < 3 seconds in bilateral fingers toes Clubbing of nail beds is absent JVD is absent Pulses are 3+ in right radial artery, right dorsalis pedis artery, left radial artery and left dorsalis pedis artery Rhythm is sinus rhythm. Respiratory: Airway is patent Trachea midline Respiratory effort is even, unlabored, Respiratory pattern is regular, symmetrical. GI: Abdomen is Bowel sounds present X 4 quads. Abd is soft X 4 quads Abdomen is tender to palpation X 4 quads. Reports lower abdominal pain, upper abdominal pain, cramping, bloody stool, Pain is 8 out of 10 on a pain scale. vomiting. : No signs and/or symptoms were reported regarding the genitourinary system. Derm: Skin is intact, is healthy with good turgor, Skin temperature is warm. Musculoskeletal: Circulation, motion, and sensation intact. Capillary refill < 3 seconds, in bilateral fingers. toes. Range of motion: intact in all extremities. 20:20 General: Appears in no apparent distress. uncomfortable, Behavior is calm, cooperative. al4 Neuro: Level of Consciousness is awake, alert, obeys commands. Cardiovascular: Capillary refill < 3 seconds Patient's skin is warm and dry. Respiratory: Airway is patent Respiratory effort is even, unlabored, Respiratory pattern is regular. 21:00 Reassessment: Patient is alert, oriented x 3, equal unlabored respirations, skin al4 warm/dry/pink. 21:52 Reassessment: ERP stated no blood cultures needed on patient. al4 22:11 Reassessment: Patient is alert, oriented x 3, equal unlabored respirations, skin al4 warm/dry/pink. 23:00 Reassessment: Patient is alert, oriented x 3, equal unlabored respirations, skin al4 warm/dry/pink. 07/18 00:00 Reassessment: Patient is alert, oriented x 3, equal unlabored respirations, skin al4 warm/dry/pink. 01:00 Reassessment: Patient is alert, oriented x 3, equal unlabored respirations, skin al4 warm/dry/pink. 02:00 Reassessment: Patient is alert, oriented x 3, equal unlabored respirations, skin al4 warm/dry/pink. 03:00 Reassessment: Patient is alert, oriented x 3, equal unlabored respirations, skin al4 warm/dry/pink. 04:00 Reassessment: Patient is alert, oriented x 3, equal unlabored respirations, skin mk warm/dry/pink. Vital Signs: 07/17 19:28 BP 141 / 86; Pulse 54; Resp 18; Temp 98.9; Pulse Ox 98% on R/A; Weight 77.11 kg; mk 20:00 BP 136 / 77; Pulse 56; Resp 14 S; Pulse Ox 98% on R/A; al4 21:00 BP 141 / 86; Pulse 56; Resp 18; Pulse Ox 98% on R/A; mk 22:00 BP 150 / 77; Pulse 54; Resp 18; Pulse Ox 97% on R/A; mk 23:15 BP 143 / 76; Pulse 61; Resp 18; Pulse Ox 99% on R/A; mk 07/18 00:30 BP 143 / 74; Pulse 61; Resp 18 S; Pulse Ox 98% on R/A; al4 01:30 BP 140 / 81; Pulse 50; Resp 18; Pulse Ox 98% on R/A; mk 02:30 BP 141 / 72; Pulse 48; Resp 16; Pulse Ox 99% on R/A; mk 03:30 BP 142 / 84; Pulse 50; Resp 18; Pulse Ox 99% on R/A; mk [place] Coma Score: 07/17 21:00 Eye Response: spontaneous(4). Verbal Response: oriented(5). Motor Response: obeys mk commands(6). Total: 15. 22:00 Eye Response: spontaneous(4). Verbal Response: oriented(5). Motor Response: obeys mk commands(6). Total: 15. 23:15 Eye Response: spontaneous(4). Verbal Response: oriented(5). Motor Response: obeys mk commands(6). Total: 15. 13 01:30 Eye Response: spontaneous(4). Verbal Response: oriented(5). Motor Response: obeys mk commands(6). Total: 15. 02:30 Eye Response: spontaneous(4). Verbal Response: oriented(5). Motor Response: obeys mk commands(6). Total: 15. 03:30 Eye Response: spontaneous(4). Verbal Response: oriented(5). Motor Response: obeys mk commands(6). Total: 15. ED Course: 07/17 19:19 Patient arrived in ED. wm 19:36 Pal Ferreira MD is Attending Physician. mack 19:43 Liset Peter, RN is Primary Nurse. mk 19:58 Inserted saline lock: 18 gauge in right antecubital area, using aseptic technique. mk 19:59 Troponin HS Sent. mk 19:59 PT-INR Sent. mk 19:59 NT PRO-BNP Sent. mk 19:59 Magnesium Sent. mk 19:59 LFT's Sent. mk 19:59 Type And Screen Sent. mk 19:59 Lipase Sent. mk 20:00 Basic Metabolic Panel Sent. mk 20:00 CBC with Automated Diff Sent. mk 20:07 XRAY Chest (1 view) In Process Unspecified. EDMS 20:26 EKG done, by ED staff, reviewed by Pal Ferreira MD. lt3 20:41 Triage completed. mk 21:00 Arm band placed on. al4 21:00 Patient has correct armband on for positive identification. Bed in low position. Call al4 light in reach. Side rails up X2. 21:07 CT Abd/Pelvis - IV Contrast Only In Process Unspecified. EDMS 21:38 Dayron Mejias MD is Hospitalizing Provider. [facility] 07/18 02:16 CBC with Diff Sent. al4 02:16 Basic Metabolic Panel Sent. al4 02:18 COVID-19 SARS RT PCR (Document "Date of Onset" if Symptomatic) Sent. al4 03:51 No provider procedures requiring assistance completed. Patient admitted, IV remains in mk place. Administered Medications: 07/17 20:19 Drug: NS 0.9% 1000 ml Route: IV; Rate: 1 bolus; Site: right antecubital; al4 22:11 Drug: Zosyn (piperacillin-tazobactam) 3.375 grams Route: IVPB; Infused Over: 60 mins; al4 Site: right antecubital; 23:12 Follow up: Response: No adverse reaction; IV Status: Completed infusion al4 22:11 Drug: morphine 2 mg Route: IVP; Site: right antecubital; al4 23:00 Follow up: Response: No adverse reaction; RASS: Alert and Calm (0) al4 22:11 Drug: Zofran (Ondansetron) 4 mg Route: IVP; Site: right antecubital; al4 07/18 01:10 Follow up: Response: No adverse reaction al4 07/17 22:11 Not Given (Physician Discretion): Pepcid (famotidine) 20 mg IVP once; dilute with 10 mL al4 0.9% NaCl; give over 2 minutes 22:11 Drug: NS 0.9% 1000 ml Route: IV; Rate: 125 ml/hr; Site: right antecubital; al4 07/18 00:33 Drug: morphine 2 mg Route: IVP; Site: right antecubital; Outcome: 07/17 21:39 Decision to Hospitalize by Provider. [facility] 07/18 04:01 Admitted to Tele mk Admitted to Tele Report called to Guru HERNANDEZ Condition: stable Instructed on the need for admit. 04:08 Patient left the ED. Signatures: Dispatcher [employer] EDPal tSorm MD MD cha Marsh, Wendy wm Ledbetter, Alexis al4 Marbella Colbert 3 Liset Peter RN RN mk Corrections: (The following items were deleted from the chart) 01:08 01:08 Arm band placed on al4 al4 04:03 04:02 PSHx: hiatal hernia; mk mk
--- NOTE | 2021-07-17 21:39 | EDPHYS ---
Physician Documentation [facility] Name: Alfredo Escobar Age: 60 yrs Sex: Male : 1960 Arrival Date: 07/17/2021 Time: 19:19 Bed 3 Private MD: DANUTA Physician Pal Ferreira HPI: 07/17 21:23 This 60 yrs old Male presents to ER via Ambulatory with complaints of Rectal mack Bleeding. 21:23 The patient presents to the emergency department with bleeding from the rectum/anus, mack that is moderate. Onset: The symptoms/episode began/occurred 3 day(s) ago. 21:24 The patient presents with abdominal pain in the left lower quadrant. Onset: The mack symptoms/episode began/occurred 3 day(s) ago. Context: the patient has no known special context relating to the rectal area complaint(s). Modifying factors: The symptoms are alleviated by nothing, The symptoms are aggravated by bowel movement. The symptoms do not radiate. Severity of pain: At its worst the pain was mild moderate in the emergency department the pain is unchanged. Historical: - Allergies: 07/18 04:02 Bactrim; mk 04:02 Keflex; mk 04:02 Iodine; mk 04:02 Levaquin; mk 04:02 Latex, Natural Rubber; mk 04:02 promethazine HCl; mk 04:02 Toradol; mk - Home Meds: 04:02 aspirin 81 mg Oral tab 81 mg daily [Active]; carvedilol 25 mg Oral tab 2 times per day mk [Active]; clonazepam 2 mg Oral tab 2 times per day [Active]; [place] 10-325 mg Oral tab twice a day [Active]; pantoprazole 40 mg Oral TbEC once daily [Active]; Ventolin HFA 90 mcg/actuation Nebulizer HFAA 2 puffs every 8 hours [Active]; - PMHx: 04:02 Anxiety; Crohn's; Arthritis; GERD; PTSD; Pancreatitis; mk - Immunization history:: Adult Immunizations up to date. - Family history:: not pertinent. - Social history:: Smoking status: Patient denies any tobacco usage or history of. ROS: 07/17 21:24 Constitutional: Negative for fever, chills, and weight loss, Eyes: Negative for injury, mack pain, redness, and discharge, ENT: Negative for injury, pain, and discharge, Neck: Negative for injury, pain, and swelling, Cardiovascular: Negative for chest pain, palpitations, and edema, Respiratory: Negative for shortness of breath, cough, wheezing, and pleuritic chest pain, Back: Negative for injury and pain, : Negative for injury, bleeding, discharge, and swelling, MS/Extremity: Negative for injury and deformity, Skin: Negative for injury, rash, and discoloration, Neuro: Negative for headache, weakness, numbness, tingling, and seizure, Psych: Negative for depression, anxiety, suicide ideation, homicidal ideation, and hallucinations, Allergy/Immunology: Negative for hives, rash, and allergies, Endocrine: Negative for neck swelling, polydipsia, polyuria, polyphagia, and marked weight changes, Hematologic/Lymphatic: Negative for swollen nodes, abnormal bleeding, and unusual bruising. Abdomen/GI: Positive for abdominal pain, of the left lower quadrant. Exam: 21:24 Constitutional: This is a well developed, well nourished patient who is awake, alert, mack and in no acute distress. Head/Face: Normocephalic, atraumatic. Eyes: Pupils equal round and reactive to light, extra-ocular motions intact. Lids and lashes normal. Conjunctiva and sclera are non-icteric and not injected. Cornea within normal limits. Periorbital areas with no swelling, redness, or edema. ENT: Nares patent. No nasal discharge, no septal abnormalities noted. Tympanic membranes are normal and external auditory canals are clear. Oropharynx with no redness, swelling, or masses, exudates, or evidence of obstruction, uvula midline. Mucous membranes moist. Neck: Trachea midline, no thyromegaly or masses palpated, and no cervical lymphadenopathy. Supple, full range of motion without nuchal rigidity, or vertebral point tenderness. No Meningismus. Chest/axilla: Normal chest wall appearance and motion. Nontender with no deformity. No lesions are appreciated. Cardiovascular: Regular rate and rhythm with a normal S1 and S2. No gallops, murmurs, or rubs. Normal PMI, no JVD. No pulse deficits. Respiratory: Lungs have equal breath sounds bilaterally, clear to auscultation and percussion. No rales, rhonchi or wheezes noted. No increased work of breathing, no retractions or nasal flaring. Back: No spinal tenderness. No costovertebral tenderness. Full range of motion. Male : Normal genitalia with no discharge or lesions. Skin: Warm, dry with normal turgor. Normal color with no rashes, no lesions, and no evidence of cellulitis. MS/ Extremity: Pulses equal, no cyanosis. Neurovascular intact. Full, normal range of motion. Neuro: Awake and alert, GCS 15, oriented to person, place, time, and situation. Cranial nerves II-XII grossly intact. Motor strength 5/5 in all extremities. Sensory grossly intact. Cerebellar exam normal. Normal gait. Psych: Awake, alert, with orientation to person, place and time. Behavior, mood, and affect are within normal limits. 21:24 ECG was reviewed by the Attending Physician. 21:24 Abdomen/GI: Inspection: abdomen appears normal, Bowel sounds: normal, Palpation: mild abdominal tenderness, moderate abdominal tenderness, in the left lower quadrant. Vital Signs: 19:28 BP 141 / 86; Pulse 54; Resp 18; Temp 98.9; Pulse Ox 98% on R/A; Weight 77.11 kg; mk 20:00 BP 136 / 77; Pulse 56; Resp 14 S; Pulse Ox 98% on R/A; al4 21:00 BP 141 / 86; Pulse 56; Resp 18; Pulse Ox 98% on R/A; mk 22:00 BP 150 / 77; Pulse 54; Resp 18; Pulse Ox 97% on R/A; mk 23:15 BP 143 / 76; Pulse 61; Resp 18; Pulse Ox 99% on R/A; mk 07/18 00:30 BP 143 / 74; Pulse 61; Resp 18 S; Pulse Ox 98% on R/A; al4 01:30 BP 140 / 81; Pulse 50; Resp 18; Pulse Ox 98% on R/A; mk 02:30 BP 141 / 72; Pulse 48; Resp 16; Pulse Ox 99% on R/A; mk 03:30 BP 142 / 84; Pulse 50; Resp 18; Pulse Ox 99% on R/A; mk [place] Coma Score: 07/17 21:00 Eye Response: spontaneous(4). Verbal Response: oriented(5). Motor Response: obeys mk commands(6). Total: 15. 22:00 Eye Response: spontaneous(4). Verbal Response: oriented(5). Motor Response: obeys mk commands(6). Total: 15. 23:15 Eye Response: spontaneous(4). Verbal Response: oriented(5). Motor Response: obeys mk commands(6). Total: . 07/18 01:30 Eye Response: spontaneous(4). Verbal Response: oriented(5). Motor Response: obeys mk commands(6). Total: 15. 02:30 Eye Response: spontaneous(4). Verbal Response: oriented(5). Motor Response: obeys mk commands(6). Total: 15. 03:30 Eye Response: spontaneous(4). Verbal Response: oriented(5). Motor Response: obeys mk commands(6). Total: 15. MDM: 07/17 19:36 Patient medically screened. mack 21:37 Differential diagnosis: hemorrhoids, fissure, diverticulitis, gastritis, GI Bleed, mack Irritable bowel syndrome, non-specific abd pain, pancreatitis. Data reviewed: vital signs, nurses notes, lab test result(s), EKG, radiologic studies, CT scan, plain films. Data interpreted: flight service agent: rate is 54 beats/min, rhythm is regular, Pulse oximetry: on room air is 98 %. Test interpretation: by ED physician or midlevel provider: ECG, plain radiologic studies. Counseling: I had a detailed discussion with the patient and/or guardian regarding: the historical points, exam findings, and any diagnostic results supporting the discharge/admit diagnosis, lab results, radiology results, the need for further work-up and treatment in the hospital. 07/17 19:44 Order name: Basic Metabolic Panel [facility] 07/17 19:44 Order name: CBC with Diff 07/17 19:44 Order name: LFT's; Complete Time: 20:[address] [facility] 07/17 19:44 Order name: Magnesium; Complete Time: 20:[address] [facility] 07/17 19:44 Order name: NT PRO-BNP; Complete Time: 20:[address] [facility] 07/17 19:44 Order name: PT-INR; Complete Time: 20:[address] [facility] 07/17 19:44 Order name: Troponin HS; Complete Time: 20:48 mack 07/17 19:44 Order name: Lipase; Complete Time: 20:[address] [facility] 07/17 19:44 Order name: Type And Screen [facility] 07/17 19:44 Order name: Basic Metabolic Panel; Complete Time: 20:48 [facility] 07/17 19:45 Order name: CBC with Automated Diff; Complete Time: 20:48 [facility] 07/17 21:27 Order name: Urine Dipstick-Ancillary [facility] 07/17 23:37 Order name: COVID-19 SARS RT PCR (Document "Date of Onset" if Symptomatic) 07/18 03:22 Order name: SARS-COV-2 RT PCR [facility] 07/17 19:44 Order name: XRAY Chest (1 view); Complete Time: 20:[address] [facility] 07/17 19:44 Order name: EKG; Complete Time: 19:[address] [facility] 07/17 19:44 Order name: Cardiac monitoring; Complete Time: 19:[address] [facility] 07/17 19:44 Order name: EKG - Nurse/Tech; Complete Time: 19:[address] [facility] 07/17 19:44 Order name: IV Saline Lock; Complete Time: 19:[address] [facility] 07/17 19:44 Order name: Labs collected and sent; Complete Time: 19:[address] [facility] 07/17 19:44 Order name: O2 Per Protocol; Complete Time: 19:[address] [facility] 07/17 19:44 Order name: O2 Sat Monitoring; Complete Time: 19:[address] [facility] 07/17 19:44 Order name: CT Abd/Pelvis - IV Contrast Only; Complete Time: 21:[address] [facility] 07/17 22:42 Order name: CONS Physician Consult [facility] 07/17 19:44 Order name: Urine Dipstick-Ancillary (obtain specimen); Complete Time: 21:51 mack EC:24 Rate is 53 beats/min. Rhythm is regular. QRS [place] is Normal. SD interval is normal. QRS mack interval is normal. QT interval is normal. No Q waves. T waves are Normal. No ST changes noted. Clinical impression: Normal ECG, Sinus bradycardia, and No evidence of ischemia. Interpreted by me. Reviewed by me. Administered Medications: 20:19 Drug: NS 0.9% 1000 ml Route: IV; Rate: 1 bolus; Site: right antecubital; al4 22:11 Drug: Zosyn (piperacillin-tazobactam) 3.375 grams Route: IVPB; Infused Over: 60 mins; al4 Site: right antecubital; 23:12 Follow up: Response: No adverse reaction; IV Status: Completed infusion al4 22:11 Drug: morphine 2 mg Route: IVP; Site: right antecubital; al4 23:00 Follow up: Response: No adverse reaction; RASS: Alert and Calm (0) al4 22:11 Drug: Zofran (Ondansetron) 4 mg Route: IVP; Site: right antecubital; al4 07/18 01:10 Follow up: Response: No adverse reaction al4 07/17 22:11 Not Given (Physician Discretion): Pepcid (famotidine) 20 mg IVP once; dilute with 10 mL al4 0.9% NaCl; give over 2 minutes 22:11 Drug: NS 0.9% 1000 ml Route: IV; Rate: 125 ml/hr; Site: right antecubital; al4 07/18 00:33 Drug: morphine 2 mg Route: IVP; Site: right antecubital; Disposition Summary: 07/17/21 21:39 Hospitalization Ordered Hospitalization Status: Observation mack Provider: Dayron Mejias cha [facility] mack Condition: Stable mack Problem: new mack Symptoms: have improved mack Bed/Room Type: Standard mack Room Assignment: 221(07/18/21 03:35) Diagnosis - Lower abdominal pain, unspecified mack - GI Bleed/ Gastrointestinal hemorrhage, unspecified - lower mack Forms: - Medication Reconciliation Form mack - SBAR form mack Signatures: Dispatcher [employer] EDMS Vanessa Marina RN RN mw Anderson, Corey, MD MD cha Ledbetter, Alexis al4 Kotarski, Madeline, RN RN mk Corrections: (The following items were deleted from the chart) 03:35 07/17 21:39 mack 07/18 04:03 04:02 PSHx: hiatal hernia; jeff aguilar
[2021-07-17] MEDS ORDERED: ONDANSETRON 4 MG/2 ML VIAL ONE (21:51)
[2021-07-17] MEDS ORDERED: MORPHINE 2 MG/ML SYR ONE (21:51)
[2021-07-17] MEDS ORDERED: NA CHLORIDE 0.9% 100 ML IV ONE (21:52)
[2021-07-17] MEDS ORDERED: FAMOTIDINE 20 MG/2 ML VIAL IV ONE (21:52)
[2021-07-17] MEDS ORDERED: PIPERACIL/TAZO 3.375 GM VIAL IV ONE (21:52)
--- NOTE | 2021-07-17 22:59 | P.HP ---
Certification for Inpatient Patient admitted to: Inpatient With expected LOS: >2 Midnights Patient will require the following post-hospital care: None Practitioner: I am a practitioner with admitting privileges, knowledge of patient current condition, hospital course, and medical plan of care. Services: Services provided to patient in accordance with Admission requirements found in Title 42 Section 412.3 of the Code of Federal Regulations Patient History Date of Service: 07/17/21 Reason for admission: crohn's flare History of Present Illness: Mr. Escobar is a 60 yo M with Crohn's disease, choronic pancreatitis, psoriatic arthritis, HTN, and anxiety who says 3 days ago he had sudden onset LLQ abdominal pain, cramping, bloating and pressure. This was followed by an episode of bloody diarrhea. He also reports increased urinary frequency. No more blood in stools since arrival. Hemoglobin 14.7. Vital stable. Patient had a similar episode in December 2019, thought to be hematochezia secondary to Crohn's flare and he followed with GI as an outpatient. Case was discussed with general surgery. Patent will be admitted for observation, IV fluids and IV antibiotics. CTAP IMPRESSION: No acute intra-abdominal or pelvic finding. CXR IMPRESSION: No acute cardiopulmonary disease. Allergies cephalexin monohydrate [From Keflex] Allergy (Verified 09/07/11 22:18) SWELLING iodine Allergy (Unverified 10/24/15 04:47) Unknown ketorolac Allergy (Unverified 05/13/14 13:05) Unknown ketorolac tromethamine [From Toradol] Allergy (Verified 09/07/11 22:17) SWELLING levofloxacin [From Levaquin] Allergy (Verified 09/07/11 22:17) SWELLING promethazine HCl [From Phenergan] Allergy (Verified 09/07/11 22:18) SWELLING Sulfa (Sulfonamide Antibiotics) Allergy (Unverified 05/13/14 13:05) Unknown sulfamethoxazole [From Bactrim] Allergy (Verified 09/07/11 22:18) SWELING trimethoprim [From Bactrim] Allergy (Verified 09/07/11 22:18) SWELING vancomycin Allergy (Unverified 10/24/15 04:47) Unknown Latex, Natur Allergy (Uncoded 10/24/15 04:47) Unknown levofloxacin Allergy (Uncoded 05/13/14 13:05) Unknown Home Medications: Albuterol Sulfate [Ventolin Hfa] 2 puff IH TID PRN 05/11/18 Hydrocodone Bit/Acetaminophen [Hydrocodon-Acetaminoph 7.5-325] 1 tab PO QID PRN 05/11/18 Lipase/Protease/Amylase [Armin Carrion 12,000 Units Capsule] 24,000 units PO TIDWM 05/11/18 Pantoprazole [Protonix Tab*] 40 mg PO DAILY 05/11/18 carvediloL [Carvedilol] 25 mg PO BID 05/11/18 clonazePAM [Clonazepam] 1 mg PO BID 05/11/18 Ciprofloxacin HCl [Cipro 500 MG Tablet] 500 mg PO BID 10 Days #20 tab 12/11/19 metroNIDAZOLE [Flagyl*] 500 mg PO Q8H 10 Days #30 tablet 12/11/19 predniSONE [Deltasone*] 10 mg PO BID #14 tab 12/11/19 - Past Medical/Surgical History Diabetic: No -: GERD -: HTN -: chronic pancreatitis -: Crohn's -: PTSD -: Psoriatic Arthritis -: anxiety -: polyp removal -: hernia repair - Family History Family History: Reviewed- Non-Contributory - Social History Smoking Status: Never smoker Alcohol use: No CD- Drugs: No Caffeine use: No Place of Residence: Home Review of Systems 10-point ROS is otherwise unremarkable General: Unremarkable Eyes: Unremarkable ENT: Unremarkable Respiratory: Unremarkable Cardiovascular: Unremarkable Gastrointestinal: Abdominal Pain, Diarrhea, Distention, Hematochezia, As per HPI Genitourinary: Frequency Physical Examination - Physical Exam General: Alert, In no apparent distress HEENT: Atraumatic, PERRLA, Mucous membr. moist/pink, EOMI, Sclerae nonicteric Neck: Supple, 2+ carotid pulse no bruit, No LAD, Without JVD or thyroid abnormality Respiratory: Clear to auscultation bilaterally, Normal air movement Cardiovascular: Regular rate/rhythm, Normal S1 S2 Gastrointestinal: Normal bowel sounds, No ascites, No tenderness, No masses, No rebound, No guarding, Distended Musculoskeletal: No tenderness Integumentary: No rashes Neurological: Normal speech, Normal strength at 5/5 x4 extr, Normal tone, Normal affect Lymphatics: No axilla or inguinal lymphadenopathy - Studies Laboratory Data (last 24 hrs) 07/17/21 19:55: PT 12.1, INR 1.05 07/17/21 19:55: WBC 6.80, Hgb 14.7, Hct 43.7, Plt Count 212 07/17/21 19:55: Sodium 137, Potassium 4.8, BUN 12, Creatinine 0.84, Glucose 92, Magnesium 2.3, Total Bilirubin 0.6, AST 19, ALT 27, Alkaline Phosphatase 53, Lipase 133 Assessment and Plan - Problems (Diagnosis) (1) HTN (hypertension) Current Visit: Yes Status: Chronic Qualifiers: Hypertension type: primary hypertension Qualified Code(s): I10 - Essential (primary) hypertension (2) Hematochezia Current Visit: Yes Status: Acute (3) Psoriatic arthritis Onset Date: 05/14/18 Current Visit: No Status: Chronic (4) Chronic pancreatitis Onset Date: 05/14/18 Current Visit: No Status: Chronic Qualifiers: Pancreatitis type: unspecified pancreatitis type Qualified Code(s): K86.1 - Other chronic pancreatitis (5) Crohn's disease Onset Date: 05/14/18 Current Visit: No Status: Chronic Qualifiers: Gastrointestinal tract location: unspecified location Digestive disease complication type: with rectal bleeding Qualified Code(s): K50.911 - Crohn's disease, unspecified, with rectal bleeding - Plan surgery consulted NPO, continue IV fluids, IV zosyn, IV solumedrol, IV pepcid trend H/H, type and screen sent stool cultures, blood cultures pending pain management and antiemetics as needed reconcile and continue home medications DVT ppx Discharge Plan: Home Plan to discharge in: 48 Hours - Advance Directives Does patient have a Living Will: Yes Does patient have a Durable POA for Healthcare: Yes - Code Status/Comfort Care Code Status Assessed: Yes (full code ) Critical Care: No Time Spent Managing Pts Care (In Minutes): 70
[2021-07-18] MEDS ORDERED: MORPHINE 2 MG/ML SYR ONE (00:30)
[2021-07-18 04:22] VITALS: O2SAT 99
[2021-07-18] MEDS: METHYLPREDNISOLONE 40 MG INJ IV SCH ×4 (04:27→16:52)
[2021-07-18] MEDS ORDERED: MORPHINE 2 MG/ML SYR IV PRN (04:27)
[2021-07-18] MEDS ORDERED: ONDANSETRON 4 MG/2 ML VIAL IV PRN (04:27)
[2021-07-18] MEDS ORDERED: ACETAMINOPHEN 500 MG TAB PO PRN (04:27)
[2021-07-18] MEDS: NA CHLORIDE 0.9% 1,000 ML IV SCH ×2 (05:03→17:08)
[2021-07-18 05:16] LABS: Absolute Lymphocytes (CBC) 3.6 K/uL (0.7-4.9); Hematocrit 42.2 % (39.6-49.0); Lymphocytes % 43.5 % (15.3-44.8); MPV 7.8 fL (7.6-11.3)
[2021-07-18 05:30] VITALS: BMI 28.1
[2021-07-18 06:07] LABS: ALT/SGPT 26 U/L (12-78); AST/SGOT 15 U/L (15-37); Albumin 3.3 g/dL (3.4-5.0); Alkaline Phosphatase 50 U/L (45-117); BUN Blood Urea Nitrogen 9 mg/dL (7-18); Bicarbonate 28 mmol/L (21-32); Bilirubin Total 0.5 mg/dL (0.2-1.0); Folic Acid, (Folate) > 20.0 ng/mL (3.1-17.5); Glucose Level 76 mg/dL (74-106); Magnesium 2.3 mg/dL (1.8-2.4); Potassium 3.9 mmol/L (3.5-5.1); Protein, Total 6.5 g/dL (6.4-8.2); Sodium Level 141 mmol/L (136-145)
[2021-07-18] MEDS ORDERED: PIPERACIL/TAZO 3.375 GM VIAL IV ONE (07:34)
[2021-07-18] MEDS ORDERED: NA CHLORIDE 0.9% 100 ML ONE (07:45)
[2021-07-18] MEDS ORDERED: KCL 20 MEQ/100 mL IVPB 20 MEQ/100 ML BAG IV SCH (09:00)
[2021-07-18] MEDS ORDERED: FAMOTIDINE 20 MG/2 ML VIAL IV SCH (09:00)
[2021-07-18] MEDS ORDERED: PIPER TAZO 3.375 GM in NA CHLORIDE 0.9% 100 ML IV SCH (09:00)
--- NOTE | 2021-07-18 14:33 | P.DS ---
Admission Date: 07/17/21 Discharge Date: 07/18/21 Disposition: ROUTINE DISCHARGE Discharge Condition: FAIR Reason for Admission: crohn's flare - Problems (1) Lower GI bleed Current Visit: No Status: Acute (2) Crohn's disease Onset Date: 05/14/18 Current Visit: No Status: Chronic Qualifiers: Gastrointestinal tract location: unspecified location Digestive disease complication type: with rectal bleeding Qualified Code(s): K50.911 - Crohn's disease, unspecified, with rectal bleeding Brief History of Present Illness: Mr. Escobar is a 60 yo M with Crohn's disease, choronic pancreatitis, psoriatic arthritis, HTN, and anxiety who presented with sudden onset LLQ abdominal pain, cramping, bloating and pressure. This was followed by an episode of bloody diarrhea. Symptoms present for 3 days. He also reported increased urinary frequency. No more blood in stools since arrival. Hemoglobin 14.7. Vital stable. Patient had a similar episode in December 2019, thought to be hematochezia secondary to Crohn's flare and he followed with GI as an outpatient. Case was discussed with general surgery. Patient hospitalized for further management. Hospital Course: Patient placed on observation and treated with IV steroids and IV antibiotics. His abdominal pain resolved. He had no more bloody stools. Patient tolerated diet and request to go home to take care of his autistic son. Patient seen by general surgery-Dr. Franklin and cleared for discharge. Vital Signs/Physical Exam: Temp Pulse Resp BP Pulse Ox 97.1 F 52 18 126/68 99 07/18/21 08:00 07/18/21 08:00 07/18/21 08:00 07/18/21 08:00 07/18/21 08:00 General: Alert, In no apparent distress, Oriented x3 HEENT: Mucous membr. moist/pink Neck: JVD not distended Respiratory: Clear to auscultation bilaterally, Normal air movement Cardiovascular: No edema, Regular rate/rhythm, Normal S1 S2 Gastrointestinal: Soft and benign, Non-distended, No tenderness Musculoskeletal: No swelling Integumentary: No rashes, No cyanosis Neurological: Normal strength at 5/5 x4 extr Laboratory Data at Discharge: WBC 8.30 K/uL (4.3-10.9) D 07/18/21 05:06 Hgb 14.0 g/dL (13.6-17.9) 07/18/21 05:06 Hct 42.2 % (39.6-49.0) 07/18/21 05:06 Plt Count 210 K/uL (152-406) 07/18/21 05:06 PT 12.1 SECONDS (9.5-12.5) 07/17/21 19:55 INR 1.05 07/17/21 19:55 Sodium 141 mmol/L (136-145) 07/18/21 05:06 Potassium 3.9 mmol/L (3.5-5.1) 07/18/21 05:06 BUN 9 mg/dL (7-18) 07/18/21 05:06 Creatinine 0.76 mg/dL (0.55-1.3) 07/18/21 05:06 Glucose 76 mg/dL (74-106) 07/18/21 05:06 Phosphorus 3.0 mg/dL (2.5-4.9) 07/18/21 05:06 Magnesium 2.3 mg/dL (1.8-2.4) 07/18/21 05:06 Total Bilirubin 0.5 mg/dL (0.2-1.0) 07/18/21 05:06 AST 15 U/L (15-37) 07/18/21 05:06 ALT 26 U/L (12-78) 07/18/21 05:06 Alkaline Phosphatase 50 U/L (45-117) 07/18/21 05:06 Lipase 133 U/L (73-393) 07/17/21 19:55 Home Medications: Albuterol Sulfate [Proair Hfa] 2 puff IH TID PRN 07/18/21 Carvedilol [Coreg] 0.5 tab PO BID 07/18/21 Ciprofloxacin HCl [Cipro 500 MG Tablet] 500 mg PO BID #10 tab 07/18/21 Hydrocodone 5/APAP 325 [Bentley 5/325] 1 tab PO Q6H PRN #20 tab 07/18/21 clonazePAM [Clonazepam] 0.5 tab PO BID 07/18/21 metroNIDAZOLE [Flagyl] 500 mg PO Q8H #15 tablet 07/18/21 predniSONE [Deltasone] 20 mg PO DAILY #5 tab 07/18/21 New Medications: Ciprofloxacin HCl [Cipro 500 MG Tablet] 500 mg PO BID #10 tab metroNIDAZOLE [Flagyl] 500 mg PO Q8H #15 tablet Hydrocodone 5/APAP 325 [Bentley 5/325] 1 tab PO Q6H PRN #20 tab PRN Reason: Pain predniSONE [Deltasone] 20 mg PO DAILY #5 tab Physician Discharge Instructions: [place] diet for the next 3 days, and then advance as tolerated. Diet: [place] diet Activity: Ad ade Followup: Reese Jenkins, DO [Primary Care Provider] -
--- NOTE | 2021-07-18 15:07 | CON ---
Date of Consultation: 07/18/2021 Brief History Of Present Illness: The patient is a 60-year-old male with a history of Crohn disease, chronic pancreatitis, psoriatic arthritis, hypertension, anxiety, who states that he had sudden onse t of left lower quadrant abdominal pain, cramping, bloating and pressure with distention of his abdom en. He has not had similar episodes before in the past. He felt like he may have had some bloody di arrhea, but was difficult to assess. He says his stool is typically dark. He is not on any maintena nce therapy for his Crohn disease and is managed by Dr. Concepcion. He has had similar episodes in December 22 by his report. At that point, he thought it was hematochezia secondary to Crohn's flare. He foll owed up with GI as an outpatient and was told he did not have any Crohn's exacerbations and was not a christensen of ever having a Crohn's exacerbation. Past Medical History: Significant for Crohn disease, chronic pancreatitis, psoriatic arthritis, hype rtension, anxiety. Past Surgical History: Includes upper endoscopy, colonoscopy with Dr. Concepcion and hernia repair. Social History: He denies smoking, alcohol, recreational drug. Family History: Reviewed and noncontributory. Allergies: HE IS ALLERGIC TO LATEX AND LEVAQUIN. Home Medications: Include Ventolin, hydrocodone, lipase/Creon, Protonix, carvedilol, clonazepam, Cip ro, Flagyl, and prednisone. Review of Systems: Ten-point review of systems other than HPI, denies. Physical Examination: Vital Signs: At the time of my examination; his BMI was 28.2. His blood pressure was 126/68, heart rate 52, respiratory rate 18, temperature 97.1, SpO2 99% on room air. General: He is awake, alert, oriented. Psychiatric: Appropriate, conversive. HEENT: Normocephalic. Sclerae anicteric. Mucous membranes moist. Oropharynx clear. Neck: Supple without JVD. Chest: Normal expansion and excursion. Cardiovascular: Regular rate and rhythm. Pulmonary: Clear to auscultation bilaterally. Abdomen: Soft, nontender, nondistended. No rebound. No guarding. No focal peritonitis. Completel y benign abdominal exam at this time. Extremities: No clubbing, cyanosis, or edema. Skin: Warm and dry. Laboratory Data: Reveals white blood count of 8.3, hemoglobin is 14.0, hematocrit of 42.2, platelet count was 210. Neutrophils are normal at 46%. His sodium was 141, potassium 3.9, chloride 108, carb on dioxide 28, BUN 9, creatinine 0.7, glucose was 76. His alkaline phosphatase was 50. Serum folate was greater than 20. His PT 12.1, INR 1.05. His UA was essentially negative. His COVID test was n egative. He had imaging performed, which included a CT of the abdomen and pelvis, officially read as no acute intraabdominal or pelvic findings. Assessment And Plan: A 60-year-old male, who came in with abdominal pain, now completely resolved. No evidence of any significant gastrointestinal bleed at this point. He was given steroids in the ER and seems to have had complete resolution of his abdominal pain and as such, I have recommended adva ncing his diet and discharge home as tolerated with instructions to follow up with Dr. Concepcion for manag ement of his Crohn disease and possible workup of potential occult gastrointestinal bleed. I have ex plained the risks, benefits, and alternatives of the above stated plan. The patient agrees to procee d as indicated. Thank you for this interesting consult. GERALD/NIKUNJ Voice ID: [id number] Report ID: [id number]
[2021-07-18 16:53] LABS: Hematocrit 42.9 % (39.6-49.0)
[2021-07-18 16:56] VITALS: BP 137/70; TEMP 97.5
[2021-07-18 18:57] LABS: Urine Appearance CLEAR (Clear); Urine Bilirubin NEGATIVE (Negative); Urine Blood NEGATIVE (Negative); Urine Color YELLOW (Yellow); Urine Glucose NEGATIVE (Negative); Urine Protein NEGATIVE (Negative); Urine Urobilinogen 0.2 mg/dL (0.2-1.0)
[2021-07-18 19:04] LABS: Urine Microscopic Reflex NO UMIC
[2021-07-18] MEDS ORDERED: HYDROCODONE/APAP 5/325 MG TAB PO PRN (19:51)
== END 2021-07-18 21:15 | disposition home or self-care (01) ==
LOC: ER 19:16 → ERHOLD 22:59 → INTOOBSV 22:59 → 2ND 07-18 03:54
PROVIDERS: ADMIT Internal Medicine; ATTEND Internal Medicine
DX: K50.911 Crohn's disease, unspecified, with rectal bleeding (principal); K86.1 Other chronic pancreatitis; L40.50 Arthropathic psoriasis, unspecified; I10 Essential (primary) hypertension; R35.0 Frequency of micturition; F41.9 Anxiety disorder, unspecified; K21.9 Gastro-esophageal reflux disease without esophagitis; F43.10 Post-traumatic stress disorder, unspecified; Z88.2 Allergy status to sulfonamides; Z88.3 Allergy status to other anti-infective agents; Z91.040 Latex allergy status; Z91.041 Radiographic dye allergy status; Z20.822 Contact with and (suspected) exposure to COVID-19
CPT/HCPCS: 96365; 93005; 87040 ×2; 85025 ×2; 80048; 36415; 86900; 83735 ×2; 86850; 87205; 84100; 85610; 86901; 80076; 85018; 85014; 81003 ×2; 84484; 82746; 82607; 83690; 80053; 83880; 74177; 71045; 96375; 99285; U0003; Q9967; J2543 ×2; J3480; J2270 ×2; J7030 ×4; J2405; J2920; G0378 ×2

== ENCOUNTER 2022-03-24 18:48 | Emergency (ER) | payer OTHER ==
--- OUTSIDE RECORDS SUMMARY | 2022-03-24 18:56 | XMS REPORT | Continuity of Care Document ---
:1960 Author Organization [facility] t Address [address] [place] [address] Care Team Providers Name Role Phone ESTHELA GEORGE Primary Care Physician Unavailable Reese Jenkins Attending Clinician Unavailable Fernanda Lockwood Attending Clinician Unavailable Shania Biswas Attending Clinician Doctor Unassigned, [place] Attending Clinician Unavailable Ajibade_O_AH Attending Clinician Unavailable Ige-Odunuga_J_AH Attending Clinician Unavailable Lucho Alfaro NP Attending Clinician LUCHO ALFARO Attending Clinician Unavailable Pio Armstrong Attending Clinician Ajibade_O_AH Admitting Clinician Unavailable Ige-Odunuga_J_AH Admitting Clinician Unavailable LUCHO ALFARO Admitting Clinician Unavailable Payers Payer Name Policy Type Policy Number Effective Date Expiration Date [place] [address] [id number] Common Sp[facility] t - [facility] Wellcare C1 [id number] [facility] Wellcare C1 [id number] [facility] WELLCARE OF [place] [id number] 2019 - [place] 00:00:00 (MEDICARE REPLACEMENT/ADV ANTAGE - HMO) Problems Condition Condition Condition Status Onset Resolution Last Treating Co mments Source Name Details Category Date Date Treatment Clinician Date No known No known Disease Unive rs active active ity of problems problems [facility] Memory Memory Problem Active 2019-04-22 Lucio raiza impairment impairment 01:06:38 l (finding) (finding) Herm jessa Active Problem 04/22/2019 [facility] Neck pain Neck pain Problem Active 2019-04-22 Memoria (finding) (finding) 01:06:38 l Active Evan Problem 04/22/2019 [facility] Paresthesi Paresthes Problem Active 2019-04-22 Memoria a ia 01:06:38 l (finding) (finding) Herm jessa Active Problem 04/22/2019 [facility] Simple Simple Problem Active 2019-04-22 Mem oria obesity obesity 01:06:38 l (disorder) (disorder) He rmann Active Problem 04/22/2019 [facility] Tremor Tremor Problem Active 2019-04-22 Lucio razia (finding) (finding) 01:06:38 l Active Evan Problem 04/22/2019 [facility] Dizziness Dizziness Problem Active 2019-04-22 Memoria (finding) (finding) 01:06:38 l Active Evan Problem 04/22/2019 [facility] Hypertensi Hypertens Problem Active 2019-04-22 Memoria ve manju 01:06:38 l disorder, disorder, Herm jessa systemic systemic arterial arterial (disorder) (disorder) Active Problem 04/22/2019 [facility] Total Total Problem Common retinal retinal Spirit detachment detachment - [facility] , right eye [facility] [id number] Acute Problem Common upper Spirit respirator - CHI y infection [facility] [id number] Gastro-eso Problem Co mmon phageal Spirit reflux - CHI disease [facility] esophagiti [facility] [id number] Abnormal Problem Comm on blood Spirit sugar - [facility] [id number] Essential Problem Comm on hypertensi Spirit on 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 [id number] Acute Problem Common tonsilliti Spirit s, - CHI unspecifie [facility] [id number] Panic Problem Common disorder Spirit with - [facility]I agoraphobi [facility] [id number] Asymptomat Problem Co mmon ic Spirit microscopi - [facility] c [facility] [id number] Constipati Problem Com mon on, Spirit [facility]specifie - [facility] [id number] Carotid Problem Commo n artery Spirit disease, - CHI unspecifie [facility] laterality Medica l , Center unspecifie d type [id number] Right Problem Common epididymit Spirit is - [facility] [id number] [place]state [place] 50[address] nodule Spirit 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 - [facility] [id number] Pelvic Problem Common pain [facility] [id number] Other Problem Common chronic [facility] pancreatit - [facility] is [facility] [id number] Disc Problem Common disorder [facility] [id number] Perineal Problem Comm on pain [facility] [id number] Scrotum Problem Common pain [facility] [id number] BPH loc w Problem Com mon urin Spirit obs/LUTS - [facility] [id number] Chronic Problem Common prostatiti [facility] s [facility] Allergies, Adverse Reactions, Alerts Allergy Allergy Status Severity Reaction(s) Onset Inactive Treating Comm ents Source Name Type Date Date Clinician Iodides Propensi Active Hives Univers ty to 12-06 ity of adverse 00:00: [place] reaction 00 [facility] Latex Propensi Active Rash Univers ty to 12-06 ity of adverse 00:00: [place] reaction 00 [facility] Levoflox Propensi Active Anaphylaxis U nivers acin ty to 12-06 ity of adverse 00:00: [place] reaction 00 Medical [facility] Ketorola Propensi Active Other - See Pin U nivers c ty to comments 12-06 needle ity of Trometha adverse 00:00: pains to [place] mine reaction 00 stomach [facility] IODIDES DRUG Active Hives Univers 12-06 ity of 00:00: [place] 00 Medical Branch LATEX DRUG Active Rash Univers INGREDI 12-06 ity of 00:00: [place] 00 Medical Branch LEVOFLOX DRUG Active Anaphylaxis Uni vers ACIN INGREDI 12-06 ity of 00:00: [place] 00 Medical Branch KETOROLA DRUG Active Other-Cmnt Univ ers C INGREDI 12-06 ity of TROMETHA 00:00: [place] MINE 00 [facility] 8091 Drug Active rash Common allergy [facility] prometha prometha Active hives Common zine zine [facility] sulfamet sulfamet Active rash Common hoxazole hoxazole Spirit / / - [facility]I trimetho trimetho [facility] [address] Drug Active stops Common allergy breathing [facility] Levaquin Levaquin Active Gricel Gordon Social History Social Habit Start Date Stop Date Quantity Comments Source Exposure to SARS-CoV-2 [facility] sure [facility] History of Tobacco Use Co mmon [facility] Sex Assigned At Com mon [facility] Smoking Status Start Date Stop Date Source Unknown if ever smoked [facility] Social History 2019-03-28 18:18:16 2019-03-28 18:18:16 [facility] Medications Ordered Filled Start Stop Current Ordering Indication Dosage Frequency Signature Comments Components Source Medication Medication Date Date Medication? Clinician (SIG) Name Name clonazePAM clonazePAM 2021-0 No QD clonazePAM 1 MG 1 MG - 1 MG 00:00: 00 clonazePAM clonazePAM 2021-0 No QD clonazePAM 1 MG 1 MG 9-07 1 MG 00:00: 00 clonazePAM clonazePAM 2021-0 No QD clonazePAM 1 MG 1 MG 7-05 1 MG 00:00: 00 clonazePAM clonazePAM 2020-0 No BID clonazePAM 1 MG 1 MG 9-21 1 MG 00:00: 00 clonazePAM clonazePAM 2020-0 No BID clonazePAM 1 MG 1 MG 9-21 1 MG 00:00: 00 Flomax 0.4 Flomax 0.4 2020-0 2021- No 1{capsu QD Flomax 0.4 MG MG 12-24 le} MG 00:00: 00:00 00 :00 Flomax 0.4 Flomax 0.4 2020-0 2021- No 1{capsu QD Flomax 0.4 MG MG 12-24 le} MG 00:00: 00:00 00 :00 Zofran 4 MG Zofran 4 MG 2020-0 No BID Zofran 4 5-14 MG 00:00: 00 Zofran 4 MG Zofran 4 MG 2020-0 No BID Zofran 4 5-14 MG 00:00: 00 Zofran 4 MG Zofran 4 MG 2020-0 No BID Zofran 4 5-14 MG 00:00: 00 Zofran 4 MG Zofran 4 MG 2020-0 No BID Zofran 4 5-14 MG 00:00: 00 Zofran 4 MG Zofran 4 MG 2021-0 No BID Zofran 4 5-14 MG 00:00: 00 acyclovir 5 2019-0 Yes [id number] Apply to Univers % ointment 2-16 area(s) 5 ity of 00:00: (five) [place] 00 times Medical daily. Branch acyclovir 5 2019-0 Yes [id number] Apply to Univers % ointment 2-16 area(s) 5 ity of 00:00: (five) [place] 00 times Medical daily. Branch acyclovir 5 2020-0 Yes [id number] Apply to Univers % ointment 2-16 area(s) 5 ity of 00:00: (five) [place] 00 times Medical daily. Branch valsartan 2018-06 Yes 0 Memoria 40 mg oral 0-24 Refill(s) l tablet 19:12: [place] 00 valsartan 2018-06 Yes 0 Memoria 40 mg oral 0-24 Refill(s) l tablet 19:12: [place] 00 pantoprazol Yes 40 mg = 1 M emoria e 40 mg 4-24 tab, PO, l oral 19:00: Daily, # [place] enteric 00 30 tab, 0 coated Refill(s) tablet carvedilol Yes 25 mg = 1 Me moria 25 mg oral 4-24 tab, PO, l tablet 19:00: BID, # 180 Maggy nn 00 tab, 0 Refill(s) Acetaminoph Yes 1 tab, PO, Memoria en 325 MG / 4-24 QID, 0 l Hydrocodone 19:00: Refill(s) H ermann Bitartrate 00 10 MG Oral Tablet [[place] 10/325] Clonazepam Yes 2 mg = 1 Mem oria 2 MG Oral 4-24 tab, PO, l Tablet 19:00: BID, # 60 Jun n [Klonopin] 00 tab, 0 Refill(s) pantoprazol Yes 40 mg = 1 M emoria e 40 mg 4-24 tab, PO, l oral 19:00: Daily, # [place] enteric 00 30 tab, 0 coated Refill(s) tablet carvedilol Yes 25 mg = 1 Me moria 25 mg oral 4-24 tab, PO, l tablet 19:00: BID, # 180 Maggy nn 00 tab, 0 Refill(s) Acetaminoph Yes 1 tab, PO, Memoria en 325 MG / 4-24 QID, 0 l Hydrocodone 19:00: Refill(s) H ermann Bitartrate 00 10 MG Oral Tablet [[place] 10/325] Clonazepam Yes 2 mg = 1 Mem oria 2 MG Oral 4-24 tab, PO, l Tablet 19:00: BID, # 60 Jun n [Klonopin] 00 tab, 0 Refill(s) Aspirin 81 Aspirin 81 Yes Esthela 1 tablet Common 4-12 [place] Spirit 00:00: - [facility] Aspirin 81 Aspirin 81 No 1{table QD Aspirin 81 81 MG 81 MG 4-12 t} 81 MG 00:00: 00 Aspirin 81 Aspirin 81 No 1{table QD Aspirin 81 81 MG 81 MG 4-12 t} 81 MG 00:00: 00 Aspirin 81 Aspirin 81 No 1{table QD Aspirin 81 81 MG 81 MG 4-12 t} 81 MG 00:00: 00 Aspirin 81 Aspirin 81 No 1{table QD Aspirin 81 81 MG 81 MG 4-12 t} 81 MG 00:00: 00 Aspirin 81 Aspirin 81 No 1{table QD Aspirin 81 81 MG 81 MG 4-12 t} 81 MG 00:00: 00 Albuterol Albuterol 2014-06 Yes Esthela 1 puff Common Sulfate HFA Sulfate HFA 1-25 [place] Spirit 00:00: - [facility] Albuterol Albuterol 2014-06 No 1{puff} QID Albuterol Sulfate HFA Sulfate HFA 1-25 Sulfate 108 (90 108 (90 00:00: HFA 108 Base) Base) 00 (90 Base) MCG/ACT MCG/ACT MCG/ACT Albuterol Albuterol 2014-06 No 1{puff} QID Albuterol Sulfate HFA Sulfate HFA 1-25 Sulfate 108 (90 108 (90 00:00: HFA 108 Base) Base) 00 (90 Base) MCG/ACT MCG/ACT MCG/ACT Albuterol Albuterol 2014-06 No 1{puff} QID Albuterol Sulfate HFA Sulfate HFA 1-25 Sulfate 108 (90 108 (90 00:00: HFA 108 Base) Base) 00 (90 Base) MCG/ACT MCG/ACT MCG/ACT Albuterol Albuterol 2014-06 No 1{puff} QID Albuterol Sulfate HFA Sulfate HFA 1-25 Sulfate 108 (90 108 (90 00:00: HFA 108 Base) Base) 00 (90 Base) MCG/ACT MCG/ACT MCG/ACT HYDROcodone Yes 1{tbl} Take 1 Tab Univers -acetaminop 7-04 by mouth ity of hen (NORCO) 06:42: every 6 Shay as 7.5-325 mg 52 (six) Medical per tablet hours as Branc h needed for Pain. LIPASE/PROT Yes Take by Uni vers EASE/AMYLAS 7-04 mouth. ity of E (CREON [...] needed for Pain. LIPASE/PROT Yes Take by Uni vers EASE/AMYLAS 7-04 mouth. ity of E (CREON [...] needed for Pain. LIPASE/PROT Yes Take by Uni vers EASE/AMYLAS 7-04 mouth. ity of E (CREON [...] (N/V). Clonazepam Clonazepam Yes Esthela TAKE 1 Common [place] TABLET BY Spirit MOUTH - CHI TWICE A [facility] Carvedilol Carvedilol Yes Esthela take 1 Common [place] tablet by Spirit mouth - CHI twice a [facility] Famotidine Famotidine Yes Esthela 1 tablet Common [place] at bedtime [facility] Protonix Protonix Yes Esthela 1 tablet Co mmon [facility] Dicyclomine Dicyclomine Yes Esthela 1 tablet Common HCl HCl [facility] [place] [facility] Ventolin Ventolin Yes Esthela 2 puffs Com mon HFA HFA [facility] [place] [facility] Valsartan Valsartan Yes Esthela 1 tablet Common [facility] [place] [facility] Hydrocodone Hydrocodone Yes Esthela (Schedule Common -Acetaminop -Acetaminop [place] II Drug) Spirit hen hen TK 1 T PO - CHI TID [facility] Pantoprazol Pantoprazol No Pantoprazo e Sodium 40 e Sodium 40 le Sodium MG MG 40 MG Carvedilol Carvedilol No Carvedilol 25 MG 25 MG 25 MG Dicyclomine Dicyclomine No 1{table QID Dicyclomin HCl 20 MG HCl 20 MG t} e HCl 20 MG Creon Creon No Creon [id number] UNIT UNIT 0 UNIT OneTouch OneTouch No OneTouch Ultra - Ultra - Ultra - Lactulose Lactulose No 15{ml} Lactulose 10 GM/15ML 10 GM/15ML 10 GM/15ML Carvedilol Carvedilol No BID Carvedilol 25 MG 25 MG 25 MG HYDROcodone HYDROcodone No HYDROcodon -Acetaminop -Acetaminop e-Acetamin hen 10-325 hen 10-325 ophen MG MG 10-325 MG OneTouch OneTouch No OneTouch Delica Plus Delica Plus Delica [id number] - [id number] - Plus [id number] - Famotidine Famotidine No 1{table BID Famotidine 20 MG 20 MG t_at_be 20 MG dtime} Protonix 40 Protonix 40 No 1{table QD Protonix MG MG t} 40 MG Ventolin Ventolin No 2{puffs Ventolin HFA 108 (90 HFA 108 (90 } HFA 108 Base) Base) (90 Base) MCG/ACT MCG/ACT MCG/ACT Carvedilol Carvedilol No BID Carvedilol 25 MG 25 MG 25 MG Creon Creon No Creon [id number] UNIT UNIT 0 UNIT Famotidine Famotidine No 1{table BID Famotidine 20 MG 20 MG t_at_be 20 MG dtime} Ventolin Ventolin No 2{puffs Ventolin HFA 108 (90 HFA 108 (90 } HFA 108 Base) Base) (90 Base) MCG/ACT MCG/ACT MCG/ACT Carvedilol Carvedilol No Carvedilol 25 MG 25 MG 25 MG OneTouch OneTouch No OneTouch Delica Plus Delica Plus Delica [id number] - [id number] - Plus [id number] - Dicyclomine Dicyclomine No 1{table QID Dicyclomin HCl 20 MG HCl 20 MG t} e HCl 20 MG OneTouch OneTouch No OneTouch Ultra - Ultra - Ultra - HYDROcodone HYDROcodone No HYDROcodon -Acetaminop -Acetaminop e-Acetamin hen 10-325 hen 10-325 ophen MG MG 10-325 MG Protonix 40 Protonix 40 No 1{table QD Protonix MG MG t} 40 MG Pantoprazol Pantoprazol No Pantoprazo e Sodium 40 e Sodium 40 le Sodium MG MG 40 MG Lactulose Lactulose No 15{ml} Lactulose 10 GM/15ML 10 GM/15ML 10 GM/15ML Famotidine Famotidine No 1{table BID Famotidine 20 MG 20 MG t_at_be 20 MG dtime} Dicyclomine Dicyclomine No 1{table QID Dicyclomin HCl 20 MG HCl 20 MG t} e HCl 20 MG Creon Creon No Creon [id number] [phone] [phone] UNIT UNIT 0 UNIT Carvedilol Carvedilol No BID Carvedilol 25 MG 25 MG 25 MG Carvedilol Carvedilol No Carvedilol 25 MG 25 MG 25 MG Lactulose Lactulose No 15{ml} Lactulose 10 GM/15ML 10 GM/15ML 10 GM/15ML OneTouch OneTouch No OneTouch Delica Plus Delica Plus Delica Nlymei39O - Zkrpfc30V - Plus Gimhny10S - Protonix 40 Protonix 40 No 1{table QD Protonix MG MG t} 40 MG Pantoprazol Pantoprazol No Pantoprazo e Sodium 40 e Sodium 40 le Sodium MG MG 40 MG OneTouch OneTouch No OneTouch Ultra - Ultra - Ultra - HYDROcodone HYDROcodone No HYDROcodon -Acetaminop -Acetaminop e-Acetamin hen 10-325 hen 10-325 ophen MG MG 10-325 MG Ventolin Ventolin No 2{puffs Ventolin HFA 108 (90 HFA 108 (90 } HFA 108 Base) Base) (90 Base) MCG/ACT MCG/ACT MCG/ACT Protonix 40 Protonix 40 No 1{table QD Protonix MG MG t} 40 MG Creon Creon No Creon [id number] [phone] UNIT UNIT 0 UNIT Carvedilol Carvedilol No Carvedilol 25 MG 25 MG 25 MG Ventolin Ventolin No 2{puffs Ventolin HFA 108 (90 HFA 108 (90 } HFA 108 Base) Base) (90 Base) MCG/ACT MCG/ACT MCG/ACT Pantoprazol Pantoprazol No Pantoprazo e Sodium 40 e Sodium 40 le Sodium MG MG 40 MG Dicyclomine Dicyclomine No 1{table QID Dicyclomin HCl 20 MG HCl 20 MG t} e HCl 20 MG OneTouch OneTouch No OneTouch Delica Plus Delica Plus Delica [id number] - [id number] - Plus Msyxse58P - HYDROcodone HYDROcodone No HYDROcodon -Acetaminop -Acetaminop e-Acetamin hen 10-325 hen 10-325 ophen MG MG 10-325 MG Famotidine Famotidine No 1{table BID Famotidine 20 MG 20 MG t_at_be 20 MG dtime} Carvedilol Carvedilol No BID Carvedilol 25 MG 25 MG 25 MG Lactulose Lactulose No 15{ml} Lactulose 10 GM/15ML 10 GM/15ML 10 GM/15ML OneTouch OneTouch No OneTouch Ultra - Ultra - Ultra - Protonix 40 Protonix 40 No 1{table QD Protonix MG MG t} 40 MG OneTouch OneTouch No OneTouch Delica Plus Delica Plus Delica Hnvbph39I - Xxlety75C - Plus Hwlnwo14M - Pantoprazol Pantoprazol No Pantoprazo e Sodium 40 e Sodium 40 le Sodium MG MG 40 MG Carvedilol Carvedilol No Carvedilol 25 MG 25 MG 25 MG Albuterol Albuterol No Albuterol Sulfate HFA Sulfate HFA Sulfate 108 (90 108 (90 HFA 108 Base) Base) (90 Base) MCG/ACT MCG/ACT MCG/ACT Famotidine Famotidine No 1{table BID Famotidine 20 MG 20 MG t_at_be 20 MG dtime} Dicyclomine Dicyclomine No 1{table QID Dicyclomin HCl 20 MG HCl 20 MG t} e HCl 20 MG Lactulose Lactulose No 15{ml} Lactulose 10 GM/15ML 10 GM/15ML 10 GM/15ML OneTouch OneTouch No OneTouch Ultra - Ultra - Ultra - Creon Creon No Creon [id number] [phone] UNIT UNIT 0 UNIT HYDROcodone HYDROcodone No HYDROcodon -Acetaminop -Acetaminop e-Acetamin hen 10-325 hen 10-325 ophen MG MG 10-325 MG Carvedilol Carvedilol No BID Carvedilol 25 MG 25 MG 25 MG Creon Creon No Creon [id number] UNIT UNIT 0 UNIT clonazePAM clonazePAM No BID clonazePAM 1 MG 1 MG 1 MG Protonix 40 Protonix 40 No 1{table QD Protonix MG MG t} 40 MG Carvedilol Carvedilol No BID Carvedilol 25 MG 25 MG 25 MG Creon Creon 2020- No Esthela take by Common 12-23 [place] mouth 1 Spirit 00:00 capsule 3 - CHI :00 times a [facility] Vital Signs Vital Name Observation Time Observation Value Comments Source height 2022-02-09 13:50:00 70 [in_i] [facility] weight 2022-02-09 13:50:00 207 [lb_av] [facility] temperature 2022-02-09 13:50:00 97.9 [degF] [facility] bmi 2022-02-09 13:50:00 29.7 kg/m2 [facility] oximetry 2022-02-09 13:50:00 96 % [facility] respiratory rate 2022-02-09 13:50:00 18 /min Comm on Spirit [facility] blood pressure 2022-02-09 13:50:00 132 mm[Hg] Common Spirit - systolic [facility] blood pressure 2022-02-09 13:50:00 70 mm[Hg] Common Spirit - diastolic [facility] height 2021-12-07 09:20:00 70 [in_i] Common [facility] weight 2021-12-07 09:20:00 206.0 [lb_av] [facility] temperature 2021-12-07 09:20:00 98.2 [degF] [facility] bmi 2021-12-07 09:20:00 29.55 kg/m2 [facility] oximetry 2021-12-07 09:20:00 99 % [facility] respiratory rate 2021-12-07 09:20:00 18 /min Comm on [facility] blood pressure 2021-12-07 09:20:00 137 mm[Hg] Common [facility] systolic [facility] blood pressure 2021-12-07 09:20:00 70 mm[Hg] Common [facility] - diastolic [facility] height 2021-02-23 14:30:00 70 [in_i] [facility] weight 2021-02-23 14:30:00 190.0 [lb_av] [facility] temperature 2021-02-23 14:30:00 98.3 [degF] [facility] bmi 2021-02-23 14:30:00 27.26 kg/m2 [facility] blood pressure 2021-02-23 14:30:00 138 mm[Hg] Common [facility] - systolic [facility] blood pressure 2021-02-23 14:30:00 74 mm[Hg] Common [facility] - diastolic [facility] Systolic blood 2020-12-28 20:04:00 155 mm[Hg] Univer sity of pressure [facility] Diastolic blood 2020-12-28 20:04:00 82 mm[Hg] Unive rsity of pressure [facility] Heart rate 2020-12-28 20:04:00 61 /min Universi [facility] [place] [facility] Body temperature 2020-12-28 20:04:00 36.67 Jing Univ ersity [facility] Respiratory rate 2020-12-28 20:04:00 16 /min [facility] height 2020-12-28 20:04:00 177.8 cm [facility] [place] [facility] Body weight 2020-12-28 20:04:00 86.183 kg [facility] [place] [facility] BMI 2020-12-28 20:04:00 27.26 kg/m2 [facility] [place] [facility] Oxygen saturation in 2020-12-28 20:04:00 97 /min University of Arterial blood by [place] [employer] jose manuel Pulse oximetry Branch Systolic blood 2019-07-22 04:00:00 147 mm[Hg] Univer sity of pressure [place] [facility] Diastolic blood 2019-07-22 04:00:00 87 mm[Hg] Unive rsity of pressure [place] [facility] Heart rate 2019-07-22 04:00:00 54 /min Universi [facility] [place] [facility] Respiratory rate 2019-07-22 04:00:00 20 /min Univ [facility] [place] [facility] Oxygen saturation in 2019-07-22 04:00:00 99 /min University of Arterial blood by [place] [employer] jose manuel Pulse oximetry Branch Body temperature 2019-07-21 23:21:00 37 Jing Univ ersity [facility] [place] [facility] Body weight 2019-07-21 23:21:00 86.183 kg [facility] [place] [facility] BMI 2019-07-21 23:21:00 27.26 kg/m2 [facility] [place] [facility] Systolic blood 2019-07-22 04:00:00 147 mm[Hg] Univer sity of pressure [place] [facility] Diastolic blood 2019-07-22 04:00:00 87 mm[Hg] Unive rsity of pressure [place] [facility] Heart rate 2019-07-22 04:00:00 54 /min [facility] [place] [facility] Respiratory rate 2019-07-22 04:00:00 20 /min Univ [facility] [place] [facility] Oxygen saturation in 2019-07-22 04:00:00 99 /min University of Arterial blood by [place] [employer] jose manuel Pulse oximetry Branch Body temperature 2019-07-21 23:21:00 37 Jing Univ [facility] [place] [facility] Body weight 2019-07-21 23:21:00 86.183 kg [facility] [place] [facility] BMI 2019-07-21 23:21:00 27.26 kg/m2 [facility] [place] [facility] Systolic (mm Hg) 2019-03-28 18:17:00 Lucio rial [place] Diastolic (mm Hg) 2019-03-28 18:17:00 Mem orial [place] Heart Rate 2019-03-28 18:17:00 [facility] [place] Respitory Rate 2019-03-28 18:17:00 Memori al [place] Height 2019-03-28 18:17:00 172.72 cm [facility] [place] Weight 2019-03-28 18:17:00 [facility] [place] BMI Calculated 2019-03-28 18:17:00 Memori al [place] BMI Calculated 2018-09-26 18:51:00 Memori al [place] Weight 2018-09-26 18:51:00 [facility] [place] Height 2018-09-26 18:51:00 172.72 cm [facility] [place] Heart Rate 2018-09-26 18:51:00 [facility] [place] Respitory Rate 2018-09-26 18:51:00 Memori al [place] Systolic (mm Hg) 2018-09-26 18:51:00 Lucio rial [place] Diastolic (mm Hg) 2018-09-26 18:51:00 Mem orial [place] Procedures Procedure Date / Time Performed Performing Clinician [facility] e NOTICE OF PRIVACY 2020-12-28 19:58:01 Doctor Unassigned, No Univ ersity [facility] Name Medical Branch CONSENT/REFUSAL FOR 2020-12-28 19:57:10 Doctor Unassigned, No [facility] [place] DIAGNOSIS AND Name Medical Branch TREATMENT US SCROTUM AND 2019-07-22 03:08:48 Lucho Alfaro [facility] Medical Branch NOTICE OF PRIVACY 2019-07-21 23:12:14 Doctor Unassigned, No Univ ersity of [facility] Name Medical Branch CONSENT/REFUSAL FOR 2019-07-21 23:07:41 Doctor Unassigned, No [facility] [place] DIAGNOSIS AND Name Medical Branch TREATMENT Encounters Start End Encounter Admission Attending Care Care Encounter Source Date/Time Date/Time Type Type Clinicians Facility Department ID 2022-02-09 Outpatient SARMAD Jenkins [facility] [id number] Common 13:48:01 Reese [facility] 2021-12-[address] GregoryJAMES [facility] [id number] Common 11:45:00 [facility] 2021-12-07 [facility] [id number] Common 09:25:00 Reese [facility] 2021-12-03 Outpatient Jenkins, [facility] [id number] Common 09:35:01 Reese [facility] 2021-06-30 Outpatient Jenkins, [facility] [id number] Common 13:05:56 Reese 94911 [facility] 2021-06-30 Outpatient Jenkins, [facility] [id number] Common 12:47:29 Reese [id number] [facility] 2021-06-30 [facility] [id number] Common 12:36:27 Reese [id number] [facility] 2021-06-30 Outpatient Jenkins, [facility] [id number] Common 12:35:26 Reese 75238 [facility] 2021-06-30 Outpatient Jenkins, [facility] [id number] Common 12:28:53 Reese [id number] [facility] 2021-06-30 Outpatient Jenkins, [facility] [id number] Common 12:26:11 Reese [id number] [facility] 2021-06-30 Outpatient Jenkins, [facility] [id number] Common 12:12:23 Reese [id number] [facility] 2021-06-30 Outpatient Jenkins, [facility] [id number] Common 12:04:45 Reese 90722 [facility] 2021-06-30 Outpatient Jenkins, [facility] [id number] Common 11:55:15 Reese 94931 [facility] 2021-06-30 Outpatient Jenkins, [facility] [id number] Common 11:52:56 Reese [id number] [facility] 2021-06-30 Outpatient Jenkins, [facility] [id number] Common 11:52:32 Reese 77411 [facility] 2021-06-30 Outpatient Mandie, [facility] [id number] Common 11:02:50 Fernanda 81878 [facility] 2021-06-30 Outpatient Mandie, STLMLC ST[facility] [id number] Common 11:02:33 Fernanda 46808 [facility] 2022-03-23 2022-03-23 (TEL) STLMLC STLMLC [id number] Co mmon 00:00:00 00:00:00 Spirit [facility] 2022-02-09 2022-02-09 OFFICE STLMLC STLMLC [id number] Co mmon 00:00:00 00:00:00 VISIT [facility] PT - CHI LEVEL 4 [facility] 2021-12-07 2021-12-07 OFFICE STLMLC STLMLC [id number] Co mmon 00:00:00 00:00:00 VISIT [facility] PT - CHI LEVEL 4 [facility] 2021-03-24 2021-03-24 (TEL) STLMLC STLMLC [id number] Co mmon 00:00:00 00:00:00 [facility] 2021-02-23 2021-02-23 (TELEAUD) STLMLC STLMLC [id number] Common 00:00:00 00:00:00 AUDIO [facility] TELEMEDICI - CHI [facility] 2021-02-22 2021-02-22 (TEL) STLMLC STLMLC [id number] Co mmon 00:00:00 00:00:00 [facility] 2020-12-28 2020-12-28 Emergency Waters, [facility] [id number] Univers 15:10:00 16:55:00 Shania Layton [id number] i Lizzy [id number] [facility] [id number] [place] [id number] Branch 2020-12-28 2020-12-28 Emergency X [facility] ERT [id number] Univers 14:57:00 14:57:00 ity of [facility] 2020-12-28 2020-12-28 Orders Doctor MCWILLIAMS [id number] 00:00:00 00:00:00 Only Unassigned, RAJIV [id number] ity of [facility] [id number] [facility] [phone] [place] [id number] Branch 2020-12-24 2020-12-24 Outpatient STLMLC ST[facility] [id number] Common 00:00:00 00:00:00 [facility] 2020-12-17 2020-12-17 Outpatient STLMLC STLMLC [id number] Common 00:00:00 00:00:00 [facility] 2020-12-04 2020-12-04 Outpatient STLMLC STLMLC [id number] Common 00:00:00 00:00:00 [facility] 2020-10-22 2020-10-22 Outpatient STLMLC STL[facility] [id number] Common 00:00:00 00:00:00 [facility] 2020-10-15 2020-10-15 Outpatient STLMLC STLMLC [id number] Common 00:00:00 00:00:00 [facility] 2020-10-07 2020-10-07 Outpatient STLMLC STLMLC [id number] Common 00:00:00 00:00:00 [facility] 2020-09-07 2020-09-07 Outpatient STLMLC STLMLC [id number] Common 00:00:00 00:00:00 [facility] 2020-08-06 2020-08-06 Outpatient STLMLC STLMLC [id number] Common 00:00:00 00:00:00 [facility] 2020-07-09 2020-07-09 Outpatient STLMLC STLMLC [id number] Common 00:00:00 00:00:00 [facility] 2020-06-09 2020-06-09 Outpatient STLMLC STLMLC [id number] Common 00:00:00 00:00:00 [facility] 2020-05-21 2020-05-21 Outpatient STLMLC STLMLC [id number] Common 00:00:00 00:00:00 [facility] 2020-05-14 2020-05-14 Outpatient STLMLC STLMLC [id number] Common 00:00:00 00:00:00 [facility] 2020-04-28 2020-04-28 Outpatient STLMLC STL[facility] [id number] Common 00:00:00 00:00:00 [facility] 2020-04-16 2020-04-16 Outpatient STLMLC STLMLC [id number] Common 00:00:00 00:00:00 [facility] 2020-03-18 2020-03-18 Outpatient STLMLC STLMLC [id number] Common 00:00:00 00:00:00 [facility] 2020-03-18 2020-03-18 Outpatient STLMLC STLMLC [id number] Common 00:00:00 00:00:00 [facility] 2020-03-10 2020-03-10 Outpatient STLMLC STLMLC [id number] Common 00:00:00 00:00:00 [facility] 2020-01-30 2020-01-30 Outpatient Ajibade_O_A VFP VFP [id number] Village 04:28:00 04:28:00 H [id number] Family Practic e 2020-01-30 2020-01-30 Outpatient Ajibade_O_A VFP VFP [id number] Village 04:28:00 04:28:00 H [id number] Family Practic e 2020-01-30 2020-01-30 Outpatient Ajibade_O_A VFP VFP [id number] [facility] 04:28:00 04:28:00 H [id number] Family Practic e 2020-01-30 2020-01-30 Outpatient Ajibade_O_A VFP VFP [id number] Village 04:28:00 04:28:00 H [id number] Family Practic e 2019-07-24 2019-07-24 Outpatient Ige-Odunuga VFP VFP [id number] [facility] 07:17:00 07:17:00 _J_AH [id number] Family Practic e 2019-07-24 2019-07-24 Outpatient Ige-Odunuga VFP VFP [id number] [facility] 07:17:00 07:17:00 _J_AH [id number] Family Practic e 2019-07-21 2019-07-21 Emergency Drever, [facility] [id number] 18:06:23 22:09:00 Lucho Venegas Kinjal [id number] [place] [id number] [place] [id number] [facility] 2019-07-21 2019-07-21 Emergency X DREVER, [facility] ERT [id number] Univers 18:06:23 22:09:00 LUCHO catherine of [facility] 2019-07-21 2019-07-21 Emergency Drever, [facility] [id number] [facility] 18:06:23 22:09:00 Lucho Theo Kinjal [id number] carlosy [facility] [id number] [facility] [id number] [address] 2019-07-15 2019-07-15 Outpatient Malena Guyt [id number] Common 15:01:00 15:01:00 t Specialty/U Sp jose alberto Specialty rology - CHI /[facility] 2019-07-09 2019-07-09 [facility] [place] [facility] [id number] Common 16:46:00 16:46:00 t Specialty/U Sp jose alberto Specialty rology - CHI /[facility] 2019-07-08 2019-07-08 Outpatient Malena Guyt [id number] Common 14:51:00 14:51:00 t Specialty/U Sp jose alberto Specialty rology - CHI /[facility] 2019-07-08 2019-07-08 [facility] [place] [facility] [id number] Common 08:00:00 08:00:00 t Specialty/U Sp jose alberto Specialty rology - CHI /[facility] 2019-07-04 2019-07-04 Outpatient Malena Guyt [id number] Common 13:00:00 13:00:00 t Specialty/U Sp jose alberto Specialty rology - CHI /[facility] 2019-07-02 2019-07-02 Outpatient Malena Guyt [id number] Common 14:32:00 14:32:00 t [facility] it [facility] 2019-06-27 2019-06-27 [facility] [id number] Common 14:40:00 14:40:00 t [facility] [address] [facility] 2019-06-03 2019-06-03 Outpatient [facility] [id number] Common 11:17:00 11:17:00 t [facility] it [facility] 2019-04-18 2019-04-20 Outside nullFlavo MNA [id number] Memoria 18:37:59 05:59:59 Medical r Neurology 01 l Records Ashlee Gordon 2019-04-18 2019-04-20 Outside nullFlavo MNA [id number] Memoria 18:37:59 05:59:59 Medical r Neurology 01 l Records Ashlee Fernándezann 2019-04-18 2019-04-19 Outpatient MHMISCHER MHMISCHER [id number] 12:37:59 23:59:59 2019-04-11 2019-04-11 Ambulatory nullFlavo MNA [id number] Memoria 21:30:00 21:30:00 Pre-Reg r Neurology 03 l Ashlee Gordon 2019-04-11 2019-04-11 Ambulatory nullFlavo MNA [id number] Memoria 21:30:00 21:30:00 Pre-Reg r Neurology 03 l [place] 2019-04-11 2019-04-11 Outpatient MHIE MHIE [id number] Memoria 15:30:00 15:30:00 Kisha Gordon 2019-04-11 2019-04-11 Outpatient [id number] 15:30:00 15:30:00 Pio Kisha León 2019-04-09 2019-04-09 [facility] [id number] Common 15:20:00 15:20:00 t [facility] [address] [facility] 2019-04-01 2019-04-03 Outside nullFlavo MNA [id number] Memoria 13:58:44 04:59:59 Medical r Neurology 00 l Records Ashlee Gordon 2019-04-01 2019-04-03 Outside nullFlavo MNA [id number] Memoria 13:58:44 04:59:59 Medical r Neurology 00 l Records Ashlee Evan 2019-04-01 2019-04-02 Outpatient MHMISCHER MHMISCHER [id number] 08:58:44 23:59:59 00 2019-03-28 2019-03-29 Outpatient nullFlavo MNA [id number] Memoria 18:00:00 04:59:59 r Neurology 02 l Ashlee Fernándezann 2019-03-28 2019-03-29 Outpatient nullFlavo MNA [id number] Memoria 18:00:00 04:59:59 r Neurology 02 l Ashlee Evan 2019-03-28 2019-03-28 Outpatient AZAR ArmstrongSCHER MISCHER [id number] 13:00:00 23:59:59 Pio Dalton León 2019-03-28 2019-03-28 Outpatient MHIE MHIE [id number] Memoria 13:00:00 13:00:00 02 roberto Evan 2019-02-19 2019-02-19 [facility] [id number] Common 14:40:00 14:40:00 [facility] it [facility] 2018-12-11 2018-12-11 Outpatient [facility] [id number] Common 11:21:00 11:21:00 [facility] it [facility] 2018-11-19 2018-11-19 Outpatient [place] [id number] Common 14:40:00 14:40:00 [facility] it [facility] 2018-10-31 2018-10-31 Ambulatory nullFlavo MNA [id number] Memoria 18:45:00 18:45:00 Pre-Reg r Neurology 01 roberto [place] 2018-10-31 2018-10-31 Ambulatory nullFlavo MNA [id number] Memoria 18:45:00 18:45:00 Pre-Reg r Neurology 01 l [place] 2018-10-31 2018-10-31 Outpatient MHIE MHIE [id number] Memoria 13:45:00 13:45:00 Mireya Gordon 2018-10-31 2018-10-31 [id number] 13:45:00 13:45:00 Pio Mau 2018-09-26 2018-09-27 Outpatient nullFlavo MNA [id number] Memoria 18:30:00 04:59:59 r Neurology 00 l Ashlee Gordon 2018-09-26 2018-09-27 Outpatient nullFlavo MNA [id number] Memoria 18:30:00 04:59:59 r Neurology 00 l Ashlee Gordon 2018-09-26 2018-09-26 Outpatient MARIAH Armstrong [facility] [id number] 13:30:00 23:59:59 Pio 00 Mau 2018-09-17 2018-09-17 [facility] [id number] Common 16:00:00 16:00:00 t [facility] [address] [facility] 2018-08-02 2018-08-02 Out[facility] [id number] Common 16:07:00 16:07:[address] [facility] 2018-08-02 2018-08-02 Outpatient [facility] [id number] Common 16:05:00 16:05:[address] [facility] 2018-06-18 2018-06-18 Outpatient [facility] [id number] Common 16:00:00 16:00:00 t [facility] [address] [facility] 2018-01-18 2018-01-18 Outpatient [facility] [id number] Common 14:00:00 14:00:[address] [facility] 2017-09-19 2017-09-19 Out[facility] [id number] Common 09:33:00 09:33:[address] [facility] 2017-09-14 2017-09-14 Outpatient [facility] [id number] Common 13:00:00 13:00:[address] [facility] 2017-09-12 2017-09-12 Out[facility] [id number] Common 11:05:00 11:05:00 [facility] it Road [facility] 2017-08-29 2017-08-29 Outpatient Malena Preston [id number] Common 15:30:00 15:30:00 [facility] it [facility] Results Test Description Test Time Test Comments Results Result Sourc e Comments US SCROTUM AND 2019-07-06 No evidence for Univ ersity of CONTENTS 7 testicular torsion. [facility] 03:19:48 No definite Branch evidence for epididymo-orchitis. RL: [id number] AFC: [id number] Ordering physician: LUCHO ALFARO INDICATION: Scrotal pain COMPARISON: None TECHNIQUE: Grayscale [...] - 07/21/2019 9:21 PM CSTOrdering physician: LUCHO SIMPSONVERINDICATION: Scrotal painCOMPARISON: NoneTECHNIQUE: Grayscale and Doppler images [...] torsion.No definite evidence for epididymo-orchitis. RL: [id number]: [id number] signed by Kristen Valdez MD, PhD at 07/21/2019 9:19 PM
[2022-03-24] MEDS ORDERED: TETRACAINE HCL 0.5% 4ML OPTH ONE ×2 (19:27→19:28)
[2022-03-24] MEDS ORDERED: FLUORESCEIN SODIUM 1 MG/WRAP ONE (19:28)
--- NOTE | 2022-03-24 20:07 | EDPHYS ---
Physician Documentation [facility] Name: Alfredo Escobar Age: 61 yrs Sex: Male : 1960 Arrival Date: 03/24/2022 Time: 18:53 Bed 7 Private MD: Gregory [facility] ED Physician Sindhu Spaulding HPI: 03/24 19:17 This 61 yrs old Male presents to ER via Ambulatory with complaints of Loss Of Vision, sd2 Numbness Of Arm. 19:17 61-year-old male presents with chief complaint of vision loss to his right eye. He sd2 reports he has had floaters only in his right eye over the past 2 days and then today it started experiencing pain to his right eye along with loss of vision where the central portion of his vision on that side has become completely black like a curtain. He states he still has some blurred vision to the periphery of his eye and is able to make out some details with that. He is still able to see clearly out of his left eye. He also reports when he woke up today he had some numbness in his right hand that has since resolved. He has not experienced any numbness or weakness to any other areas. He denies any prior history of glaucoma or ocular issues. Not currently on blood thinners. . Historical: - Allergies: 18:58 Toradol; 5 18:58 promethazine HCl; 5 18:58 Levaquin; 5 18:58 Latex, Natural Rubber; 5 18:58 Keflex; [facility] 18:58 Iodine; [facility] 18:58 Bactrim; [facility] - PMHx: 18:58 Anxiety; Arthritis; Crohn's; GERD; Pancreatitis; PTSD; 5 - Immunization history:: Adult Immunizations up to date. - Social history:: Smoking status: Patient denies any tobacco usage or history of. ROS: 19:17 Constitutional: Negative for fever, chills, and weight loss. sd2 19:17 ENT: Negative for injury, pain, and discharge, Cardiovascular: Negative for chest pain, palpitations, and edema, Respiratory: Negative for shortness of breath, cough, wheezing. Abdomen/GI: Negative for abdominal pain, nausea, vomiting, diarrhea. MS/Extremity: Negative for injury and deformity, Skin: Negative for injury, rash, and discoloration, Neuro: Negative for headache, Positive for numbness and tingling. 19:17 Eyes: Positive for blurry vision, pain, vision loss, visual disturbance, Negative for injury or acute deformity, redness, tearing. Exam: 19:17 Constitutional: This is a well developed, well nourished patient who is awake, alert, sd2 and in no acute distress. Head/Face: Normocephalic, atraumatic. Eyes: EOMI, normal conjunctiva bilaterally, PERRL, cornea is clear, no tearing, matting or discharge. When patient looks straight with right eye, unable to see anything, when he looks to his right side, he states it is blurry but is able to make out inconsistently how many fingers I am holding up Chest/axilla: Normal chest wall appearance and motion. Nontender with no deformity. Cardiovascular: Regular rate and rhythm with a normal S1 and S2. No gallops, murmurs, or rubs. 2+ distal pulses. Respiratory: Lungs have equal breath sounds bilaterally, clear to auscultation and percussion. No rales, rhonchi or wheezes noted. No increased work of breathing, no retractions or nasal flaring. Abdomen/GI: Soft, non-tender, with normal bowel sounds. No guarding or rebound. No evidence of tenderness throughout. Skin: Warm, dry with normal turgor. Normal color with no rashes, no lesions, and no evidence of cellulitis. MS/ Extremity: Pulses equal, no cyanosis. Neurovascular intact. Full, normal range of motion. Ambulatory without difficulty. Neuro: Awake and alert, GCS 15, oriented to person, place, time, and situation. Cranial nerves II-XII grossly intact. Motor strength 5/5 in all extremities. Sensory grossly intact. Cerebellar exam normal. Normal gait. Psych: Awake, alert, with orientation to person, place and time. Behavior, mood, and affect are within normal limits. 20:21 ECG was reviewed by the Attending Physician. Sinus bradycardia, rate 53, no STEMI sd2 criteria Vital Signs: 18:55 BP 148 / 84; Pulse 60; Resp 16; Temp 98.7; Pulse Ox 98% ; Weight 92.99 kg; Height 5 ft. jh5 10 in. (177.80 cm); Pain 5/10; 19:30 BP 149 / 83; Pulse 52; Resp 11; Pulse Ox 99% on R/A; vc1 20:30 BP 149 / 83; Pulse 60; Resp 18 S; Pulse Ox 99% on R/A; ha1 18:55 Body Mass Index 29.41 (92.99 kg, 177.80 cm) jh5 Procedures: 19:40 Ultrasound: Type: Ocular, performed by the emergency department physician, Teglisa sd2 applied to surface of eye and ultrasound gel applied over this. Linear transducer used to assess the eye and partial retinal detachment visualized from about the 6 o'clock to 8 o'clock position. . Performed Wood's lamp. 2 drops of tetracaine applied to patient's right eye tolerated well. Fluorescein strip placed in the corner of the eye and dye spread to surface. Wood's lamp turned on to evaluate surface of the eye with no signs of corneal abrasion. . Performed Tonopen. 2 drops of tetracaine previously applied to eye. Tonopen calibrated and used to assess the surface of the eye. Pt tolerated well with pressures of 16 with a 95% confidence interval. . MDM: 19:07 Patient medically screened. sd2 19:17 Differential diagnosis: CVA, CRAO/CRVO, glaucoma, corneal abrasion, retinal detachment sd2 among others. Data reviewed: vital signs, nurses notes. 19:40 ED course: Retinal detachment diagnosis discussed with patient. Will obtain CT to rule sd2 out bleed as well and initiate emergent transfer as we do not have ophthalmology system consultant. Pt in agreement with treatment plan at this time. Symptoms started initially 2 days ago and patient is out of the window for CVA intervention. . 20:25 ED course: Pt accepted for transfer to [facility] by Dr. Snell at this time. . sd2 03/24 19:16 Order name: CBC with Diff; Complete Time: 20:19 sd2 03/24 19:16 Order name: CMP; Complete Time: 20:55 sd2 03/24 19:16 Order name: PT-INR; Complete Time: 20:19 sd2 03/24 19:16 Order name: Ptt, Activated; Complete Time: 20:19 sd2 03/24 19:16 Order name: Troponin High Sensitivity; Complete Time: 20:55 sd2 03/24 19:56 Order name: SARS-COV-2 Antigen Rapid; Complete Time: 20:55 wm 03/24 19:16 Order name: EKG - Nurse/Tech; Complete Time: 19:57 sd2 03/24 19:16 Order name: CT Head Brain wo Cont; Complete Time: 20:33 sd2 03/24 20:21 Order name: Visual Acuity sd2 Administered Medications: 19:57 Drug: Fluorescein Strip 1 strip Route: Ophthalmic; Site: both eyes; vc1 20:57 Follow up: Response: No adverse reaction ha1 19:57 Drug: Tetracaine Drops 0.5 % 1 drops Route: Ophthalmic; Site: both eyes; vc1 20:56 Follow up: Response: No adverse reaction ha1 20:54 Drug: morphine 2 mg Route: IVP; Infused Over: 4 mins; Site: right antecubital; ha1 Disposition Summary: 03/24/22 20:06 Transfer Ordered Transfer Location: [facility] sd2 Reason: Higher level of care sd2 Condition: Stable sd2 Problem: new sd2 Symptoms: are unchanged sd2 Accepting Physician: Dr. Josiah Snell(03/24/22 21:28) ha1 Diagnosis - Unspecified retinal detachment with retinal break, right eye sd2 Forms: - Medication Reconciliation Form sd2 - SBAR form sd2 Signatures: Dispatcher [employer] EDFloresita Robins RN RN jh5 Sandie Peña RN RN vc1 Sindhu Spaulding MD MD sd2 Jagruti Hawkins RN RN ha1 Corrections: (The following items were deleted from the chart) 20:25 20:06 Unknown sd2 sd2 21:28 20:25 Dr. Josiah Snell sd2 ha1
--- NOTE | 2022-03-24 20:07 | ER ---
Nurse's Notes [facility] Name: Alfredo Escobar Age: 61 yrs Sex: Male : 1960 Arrival Date: 03/24/2022 Time: 18:53 Bed 7 Private MD: Reese Jenkins Diagnosis: Unspecified retinal detachment with retinal break, right eye Presentation: 03/24 18:55 Chief complaint: Patient states: blindness in right; been seeing floaters and dots x2 jh5 days and then today went blind and blurry in left eye. pain in the eye; no trauma noted - all of a sudden right eye went black like a curtain ... i had numbness in my right hand this morning and the side of my face was a little numb but went away in time and then i lost my sight. Coronavirus screen: Vaccine status: Patient reports being unvaccinated. Client denies travel out of the [place] in the last 14 days. At this time, the client does not indicate any symptoms associated with coronavirus-19. Ebola Screen: Patient negative for fever greater than or equal to 101.5 degrees Fahrenheit, and additional compatible Ebola Virus Disease symptoms Patient denies exposure to infectious person. Patient denies travel to an Ebola-affected area in the 21 days before illness onset. Initial Sepsis Screen: Does the patient meet any 2 criteria? No. Patient's initial sepsis screen is negative. Does the patient have a suspected source of infection? No. Patient's initial sepsis screen is negative. Risk Assessment: Do you want to hurt yourself or someone else? Patient reports no desire to harm self or others. Onset of symptoms was March 24, 2022. 18:55 Method Of Arrival: Ambulatory [facility] 18:55 Acuity: BUCKY 2 jh5 Triage Assessment: 18:58 General: Appears in no apparent distress. well groomed, well developed, well nourished, [facility] Behavior is calm, cooperative, appropriate for age. Pain: Complains of pain in right eye. Historical: - Allergies: 18:58 Toradol; 5 18:58 promethazine HCl; 5 18:58 Levaquin; 5 18:58 Latex, Natural Rubber; 5 18:58 Keflex; 5 18:58 Iodine; 5 18:58 Bactrim; jh5 - PMHx: 18:58 Anxiety; Arthritis; Crohn's; GERD; Pancreatitis; PTSD; [facility] - Immunization history:: Adult Immunizations up to date. - Social history:: Smoking status: Patient denies any tobacco usage or history of. Screenin:11 Abuse screen: Denies threats or abuse. Denies injuries from another. Nutritional ha1 screening: No deficits noted. Tuberculosis screening: No symptoms or risk factors identified. Fall Risk IV access (20 points). Total Preciado Fall Scale indicates No Risk (0-24 pts). Assessment: 19:35 General: Appears uncomfortable, Behavior is cooperative. Pain: Complains of pain in ha1 right eye Pain does not radiate. Pain currently is 10 out of 10 on a pain scale. Quality of pain is described as pressure, Pain began suddenly, Aggravated by light. Neuro: Level of Consciousness is awake, alert, obeys commands, Oriented to person, place, time, situation, Speech is normal. Cardiovascular: Heart tones S1 S2 present Capillary refill < 3 seconds Patient's skin is warm and dry. Rhythm is sinus bradycardia. Respiratory: Airway is patent Trachea midline Respiratory effort is even, unlabored, Respiratory pattern is regular, symmetrical. GI: No signs and/or symptoms were reported involving the gastrointestinal system. : No signs and/or symptoms were reported regarding the genitourinary system. Musculoskeletal: Circulation, motion, and sensation intact. Range of motion: intact in all extremities. 20:12 Reassessment: Patient is alert/active/playful, equal unlabored respirations, skin ha1 warm/dry/pink. in shift performed eye exam. finding are retinal detachment. provided pt. education of condition and need for transfer. Vital Signs: 18:55 BP 148 / 84; Pulse 60; Resp 16; Temp 98.7; Pulse Ox 98% ; Weight 92.99 kg; Height 5 ft. [facility] 10 in. (177.80 cm); Pain 5/10; 19:30 BP 149 / 83; Pulse 52; Resp 11; Pulse Ox 99% on R/A; vc1 20:30 BP 149 / 83; Pulse 60; Resp 18 S; Pulse Ox 99% on R/A; ha1 18:55 Body Mass Index 29.41 (92.99 kg, 177.80 cm) [facility] ED Course: 18:53 Patient arrived in ED. 18:53 Reese Jenkins, is Private Physician. mr 18:58 Triage completed. jh5 18:58 Arm band placed on right wrist. jh5 19:00 Patient has correct armband on for positive identification. Bed in low position. Call vc1 light in reach. 19:07 Sindhu Spaulding MD is Attending Physician. sd2 19:[address] [facility] per Pt request. On hold for 22 mins before wm answering, spoke with Sonia Neil. 20:05 Jagruti Hawkins, RN is Primary Nurse. ha1 20:18 CT Head Brain wo Cont In Process Unspecified. EDMS 20:22 Pt accepted for transfer to [facility] ER by Dr. Josiah Snell. 21:23 No provider procedures requiring assistance completed. Patient transferred, IV remains vc1 in place. Administered Medications: 19:57 Drug: Fluorescein Strip 1 strip Route: Ophthalmic; Site: both eyes; vc1 20:57 Follow up: Response: No adverse reaction ha1 19:57 Drug: Tetracaine Drops 0.5 % 1 drops Route: Ophthalmic; Site: both eyes; vc1 20:56 Follow up: Response: No adverse reaction ha1 20:54 Drug: morphine 2 mg Route: IVP; Infused Over: 4 mins; Site: right antecubital; ha1 Medication: 21:24 VIS not applicable for this client. vc1 Outcome: 20:06 ER care complete, transfer ordered by . sd2 21:24 Transferred by ground EMS to [facility], Transfer form completed. vc1 21:24 Condition: stable 21:24 Instructed on the need for transfer. 21:28 Patient left the ED. ha1 Signatures: Dispatcher [employer] EDNJ Rashaun, [employer] Rose Floresita Man RN RN 5 Sandie Peña RN RN 1 Sindhu Spaulding MD MD va2 Jagruti Hawkins, MARY RN ha1 Corrections: (The following items were deleted from the chart) 20:05 19:57 Initiated transfer to [facility], spoke with Carole ames 20:25 19:[address] [facility] per Pt request, spoke with [facility]
[2022-03-24 20:14] LABS: Absolute Lymphocytes (CBC) 2.2 K/uL (0.7-4.9); Lymphocytes % 33.5 % (15.3-44.8); MCV 89.4 fL (80-100); MPV 7.5 fL (7.6-11.3); RBC Red Blood Cell Count 4.92 M/uL (4.33-5.43)
[2022-03-24 20:18] LABS: Protime INR 1.02
--- NOTE | 2022-03-24 20:30 | RAD REPORT ---
EXAM DESCRIPTION: CT - Head Brain Wo Cont - 03/24/2022 8:16 pm CLINICAL HISTORY: Vision loss COMPARISON: 2019 TECHNIQUE: Computed axial tomography of the head was obtained. IV contrast was not requested. All CT scans are performed using dose optimization technique as appropriate and may include automated exposure control or mA/KV adjustment according to patient size. FINDINGS: An intracranial bleed is not seen . The ventricles are normal in caliber. No significant hypodense areas within the brain visualized No extra-axial fluid collection is noted. Fluid within the sinuses/ mastoids is not seen. IMPRESSION: No acute intracranial abnormality is seen. If patient's symptoms persist MRI of the bra in would be recommended.
[2022-03-24 20:36] LABS: Albumin 3.5 g/dL (3.4-5.0); Potassium 4.2 mmol/L (3.5-5.1)
[2022-03-24 20:42] LABS: Bilirubin Total 0.3 mg/dL (0.2-1.0)
[2022-03-24 20:47] LABS: SARS-CoV-2 Antigen Rapid Res Negative (Negative)
[2022-03-24] MEDS ORDERED: MORPHINE 2 MG/ML SYR ONE (20:48)
[2022-03-24 21:34] VITALS: TEMP 98.7
[2022-03-24 21:35] VITALS: BP 149/83; O2SAT 99
--- NOTE | 2022-03-26 16:56 | EKG ---
Test Date: 2022-03-24 Test Time: 19:42:47 Clinical Nursing Professor: LUCY MEASUREMENT RESULTS: Intervals: Rate: 53 OR: 158 QRSD: 80 QT: 400 QTc: 375 [place]: P: 23 OR: 158 QRS: -6 T: 13 INTERPRETIVE STATEMENTS: Sinus bradycardia Otherwise normal ECG Compared to ECG 07/17/2021 20:24:08 Atrial fibrillation no longer present Left ventricular hypertrophy no longer present Electronically Signed On 03-26-22 16:54:01 CDT by Janes Woo
== END 2022-03-24 21:28 | disposition short-term general hospital (02) ==
LOC: ER 18:48
DX: H33.011 Retinal detachment with single break, right eye (principal); Z20.822 Contact with and (suspected) exposure to COVID-19; Z88.1 Allergy status to other antibiotic agents; Z88.5 Allergy status to narcotic agent; Z88.8 Allergy status to other drugs, medicaments and biological substances; Z91.040 Latex allergy status; Z91.048 Other nonmedicinal substance allergy status
CPT/HCPCS: 93005; 85025; 36415; 85610; 85730; 84484; 80053; 70450; 96374; 99285; 87811; J2270

== ENCOUNTER 2022-08-23 01:59 | Emergency (ER) | payer OTHER ==
--- OUTSIDE RECORDS SUMMARY | 2022-08-23 02:04 | XMS REPORT | Continuity of Care Document ---
:1960 Author Organization [facility] t Address [address] [place] [address] Care Team Providers Name Role Phone Unknown, Physician Primary Care Physician Unavailable Reese Jenkins Attending Clinician Unavailable Fernanda Lockwood Attending Clinician Unavailable WARD SCHULER Attending Clinician Unavailable Shania Biswas Attending Clinician Doctor Unassigned, [place] Attending Clinician Unavailable Ajibade_O_AH Attending Clinician Unavailable Ige-Odunuga_J_AH Attending Clinician Unavailable LUCHO ALFARO Attending Clinician Unavailable Lucho Alfaro NP Attending Clinician Ajibade_O_AH Admitting Clinician Unavailable Ige-[place]un[place]_J_AH Admitting Clinician Unavailable LUCHO ALFARO Admitting Clinician Unavailable Payers Payer Name Policy Type Policy Number Effective Date Expiration Date S herbie WELLCARE/WELLCA [id number] 2021 RE [place] 00:00:00 WellCare MCR C1 [id number] [facility] t [facility] Wellcare C1 [id number] [facility] Wellcare C1 [id number] [facility] WELLCARE OF [place] [id number] 2019 - [place] 00:00:00 (MEDICARE REPLACEMENT/ADV ANTAGE - HMO) Problems Condition Condition Condition Status Onset Resolution Last Treating Co mments Source Name Details Category Date Date Treatment Clinician Date No known No known Disease Unive rs active active ity of problems problems [facility] Memory Memory Problem Active 2019-04-22 Lucio raiza impairment impairment 01:06:38 l (finding) (finding) Herm jessa Active Problem 04/22/2019 [facility] Neck pain Neck pain Problem Active 2019-04-22 Memoria (finding) (finding) 01:06:38 l Active Evan Problem 04/22/2019 [facility] Paresthesi Problem Active 2019-04-22 M emoria a Paresthesi 01:06:38 l (finding) a [place] (finding) Active Problem 04/22/2019 [facility] Simple Simple Problem Active 2019-04-22 Lucio raiza obesity obesity 01:06:38 l (disorder) (disorder) He rmann Active Problem 04/22/2019 [facility] Tremor Tremor Problem Active 2019-04-22 Lucio raiza (finding) (finding) 01:06:38 l Active [place] Problem 04/22/2019 [facility] Dizziness Dizziness Problem Active 2019-04-22 Memoria (finding) (finding) 01:06:38 l Active [place] Problem 04/22/2019 [facility] Hypertensi Hypertens Problem Active 2019-04-22 Memoria ve manju 01:06:38 l disorder, disorder, Herm jessa systemic systemic arterial arterial (disorder) (disorder) Active Problem 04/22/2019 [facility] Total Total Problem Common retinal retinal Spirit detachment detachment - [facility] , right eye [facility] [id number] Acute Problem Common upper Spirit respirator - CHI y infection [facility] [id number] Gastro-eso Problem Co mmon phageal Spirit reflux - CHI disease [facility] esophagiti [facility] [id number] Abnormal Problem Comm on blood Spirit sugar - [facility] [id number] Essential Problem Comm on (primary) Spirit hypertensi - [facility]I on [facility] [id number] Chronic Problem Commo n pain [facility] syndrome - [facility] [id number] Hyperglyce Problem Com mon alex [facility] [id number] Generalize Problem Com mon d anxiety [facility] disorder - [facility] [id number] Diverticul Problem Co mmon osis Spirit [facility] [id number] Encounter Problem Com mon for Spirit counseling - [facility] [id number] BPH loc Problem Commo n w/o ur Spirit obs/LUTS [facility] [id number] 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 [facility] [id number] Arthropath Problem Com mon ic Spirit psoriasis [facility] [id number] Crohn''s Problem Commo n disease Spirit without - CHI complicati [facility] unspecifie Medica l [facility] gastrointe stinal tract location [id number] Chronic Problem Common fatigue [facility] [id number] Cervical Problem Comm on spondylosi [facility] 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 - CHI myelopathy [facility] [id number] BMI Problem Common 29.0-29.9, [facility] adult [facility] [id number] Nausea Problem Common [facility] [id number] Lumbar Problem Common sprain, Spirit initial - [facility] encounter [facility] [id number] Wheezing Problem Commo n Spirit [facility] [id number] Hospital Problem Comm on discharge [facility] follow-up [facility] [id number] Acute Problem Common tonsilliti Spirit s, - CHI unspecifie [facility] [id number] Panic Problem Common disorder Spirit with - [facility] agoraphobi [facility] [id number] Asymptomat Problem Co mmon ic Spirit microscopi - [facility] c [facility] [id number] Constipati Problem Com mon on, Spirit unspecifie - CHI d constipati [facility] [id number] Carotid Problem Commo n artery Spirit disease, - CHI unspecifie [facility] laterality Medica l , Center unspecifie d type [id number] Right Problem Common epididymit Spirit is - [facility] [id number] Prostate Problem Com mon 20468 nodule [facility] - [facility] [id number] 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 [facility] [id number] Pelvic Problem Common pain [facility] [id number] Other Problem Common chronic Spirit pancreatit - [facility] is [facility] [id number] Disc Problem Common disorder [facility] [id number] Perineal Problem Comm on pain [facility] [id number] Scrotum Problem Common pain [facility] [id number] BPH loc w Problem Com mon urin Spirit obs/LUTS - [facility] [id number] Chronic Problem Common prostatiti Spirit s [facility] Allergies, Adverse Reactions, Alerts Allergy Allergy Status Severity Reaction(s) Onset Inactive Treating Comm ents Source Name Type Date Date Clinician Sulfamet Allergy Active Other [facility] hoxazole to 2-13 reaction( Healt h substan 00:00: s): e 00 SWELING Trimetho Allergy Active Other [facility] prim to 2-13 reaction( Health substan 00:00: s): e 00 SWELING Vancomyc Allergy Active Other UT in to 2-13 reaction( Health substanc 00:00: s): e 00 Unknown Ketorola Allergy Active Other UT c to 2-13 reaction( Health substanc 00:00: s): e 00 Unknown Prometha Allergy Active Other UT zine to 1-23 reaction( Health substanc 00:00: s): e 00 hives, hives, SWELLING Sulfamet Allergy Active Rash 0 Other UT hoxazole to 1-23 reaction( Healt h -Trimeth substanc 00:00: s): rash oprim e 00 Cephalex Allergy Active Rash 2019-0 Other UT in to -23 reaction( Health substanc 00:00: s): rash, e 00 SWELLING Iodides Propensi Active Hives Univers ty to [...] Medical s Branch IODIDES DRUG Active Hives 2014- Univers 12-06 ity of 00:00: [place] 00 Medical Branch LATEX DRUG Active Rash 2014- Univers INGREDI 12-06 ity of 00:00: [place] 00 Medical Branch LEVOFLOX DRUG Active Anaphylaxis Uni vers ACIN INGREDI 12-06 ity of 00:00: [place] 00 Medical Branch KETOROLA DRUG Active Other-Cmnt Univ ers C INGREDI 12-06 ity of TROMETHA 00:00: [place] MINE 00 Medical Branch Ketorola Allergy Active Other UT c to 12-06 reaction( Health Trometha substanc 00:00: s): Other mine e 00 - See comments, SWELLINGP in needle pains to stomach Latex Allergy Active Rash UT to 12-06 Health substanc 00:00: e 00 Iodides Allergy Active Hives Other UT to 7 reaction( Health substanc 00:00: s): e 00 Unknown Iodides Allergy Active Hives Other UT to 7 reaction( Health substanc 00:00: s): e 00 Unknown Levoflox Allergy Active Anaphylaxis 2013- Other UT acin to 2 reaction( Health substanc 00:00: s): stops e 00 breathing , SWELLING, Unknown 8091 Drug Active rash Common allergy Spirit - [facility] prometha prometha Active hives Common zine zine [facility] sulfamet sulfamet Active rash Common hoxazole hoxazole Spirit / / - [facility]I trimetho trimetho [facility] [address] Drug Active stops Common allergy breathing [facility] Social History Social Habit Start Date Stop Date Quantity Comments Source History of Tobacco Common Spirit - Use [facility] Exposure to 2022-05-02 2022-05-12 Not sure [facility] SARS-CoV-2 (event) 00:00:00 11:32:00 Sex Ass[birth year] At [birth year] [facility] 00:00:00 00:00:00 Smoking Status Start Date Stop Date Source Tobacco smoking consumption HI Esteban [place] unknown Social History 2019-03-28 18:18:16 2019-03-28 18:18:16 [facility] [place] [facility] Medications Ordered Filled Start Stop Current Ordering Indication Dosage Frequency Signature Comments Components Source Medication Medication Date Date Medication? Clinician (SIG) Name Name brimonidine 2021-06 Yes [id number] 1[drp] Q.5D Administer [facility] -timolol 2-08 1 drop Health ([place]) 00:00: into the 0.2-0.5 % 00 right eye ophthalmic in the solution morning and 1 drop in the evening. brimonidine 2021-06- No [id number] 1[drp] Q.5D Administer UT -timolol 1-10 12-08 1 drop Health (Combigan) 00:00: 00:00 into the 0.2-0.5 % 00 :00 left eye ophthalmic in the solution morning and 1 drop in the evening. Combigan Combigan 2021-06 No 1{drop_ BID [place]an 0.2-0.5 % 0.2-0.5 % 1-07 into_af 0.2-0.5 % 00:00: fected_ 00 eye} clonazePAM clonazePAM 2021-06 No QD clonazePAM 1 MG 1 MG 1-07 1 MG 00:00: 00 Combigan Combigan 2021-06 No 1{drop_ BID Combigan 0.2-0.5 % 0.2-0.5 % 1-07 into_af 0.2-0.5 % 00:00: fected_ 00 eye} clonazePAM clonazePAM 2021-06 No QD clonazePAM 1 MG 1 MG 1-07 1 MG 00:00: 00 brimonidine 2021-06 Yes [id number] 1[drp] Q.5D Administer UT -timolol 0-31 1 drop Health (Combigan) 00:00: into the 0.2-0.5 % 00 right eye ophthalmic in the solution morning and 1 drop in the evening. brimonidine 2021-06- No [id number] 1[drp] Q.5D Administer UT -timolol 0-31 12-08 1 drop Health (Combigan) 00:00: 00:00 into the 0.2-0.5 % 00 :00 right eye ophthalmic in the solution morning and 1 drop in the evening. clonazePAM clonazePAM 2021-0 No QD clonazePAM 1 [...] No 1{capsu QD Flomax 0.4 MG MG -27 07-16 le} MG 00:00: 00:00 00 :00 Flomax 0.4 Flomax 0.4 2020-0 2021- No 1{capsu QD Flomax 0.4 MG MG 7-27 07-16 le} MG 00:00: 00:00 00 :00 Zofran 4 MG Zofran 4 MG 2020-0 No BID Zofran 4 5-14 MG 00:00: 00 Zofran 4 MG Zofran 4 MG 2020-0 No BID Zofran 4 5-14 MG 00:00: 00 Zofran 4 MG Zofran 4 MG 1-0 No BID Zofran 4 5-14 MG 00:00: [...] MG 00:00: 00 acyclovir 5 2019-0 Yes [id number] Apply to Univers % ointment 2-16 area(s) 5 ity of 00:00: (five) [place] 00 times Medical daily. Branch acyclovir 5 2019-0 Yes [id number] Apply to Univers % ointment 2-16 area(s) 5 ity of 00:00: (five) [place] 00 times Medical daily. Branch acyclovir 5 2020-0 Yes [id number] Apply to Univers % ointment 2-16 area(s) 5 ity of 00:00: (five) [place] 00 times Medical daily. Branch valsartan 2018-06 Yes 0 Memoria 40 mg oral 0-24 Refill(s) l tablet 19:12: [place] 00 pantoprazol Yes 40 mg = 1 [...] ermann Bitartrate 00 10 MG Oral Tablet [[place] 10/325] Clonazepam 2018- Yes 2 mg = 1 Mem oria 2 MG Oral 4-24 tab, PO, l Tablet 19:00: BID, # 60 Jun n [Klonopin] 00 tab, 0 Refill(s) Aspirin 81 Aspirin 81 2017- Yes Esthela 1 tablet Common 4-12 [place] Spirit 00:00: - [facility] Aspirin 81 Aspirin 81 2017- No 1{table QD Aspirin 81 81 MG 81 MG 4-12 t} 81 MG 00:00: 00 Aspirin 81 Aspirin 81 2016- No 1{table QD Aspirin 81 81 MG 81 MG 4-12 t} 81 MG 00:00: 00 Aspirin 81 Aspirin 81 2016- No 1{table QD Aspirin 81 81 MG 81 MG 4-12 t} 81 MG 00:00: 00 Aspirin 81 Aspirin 81 2016- No 1{table QD Aspirin 81 81 MG 81 MG 4-12 t} 81 MG 00:00: 00 Aspirin 81 Aspirin 81 2016- No 1{table QD Aspirin 81 81 MG 81 MG 4-12 t} 81 MG 00:00: 00 Aspirin 81 Aspirin 81 No 1{table QD Aspirin 81 81 MG 81 MG 4-12 t} 81 MG 00:00: 00 Aspirin 81 Aspirin 81 2016- No 1{table QD Aspirin 81 81 MG 81 MG 4-12 t} 81 MG 00:00: 00 Aspirin 81 Aspirin 81 No 1{table QD Aspirin 81 81 MG 81 MG 4-12 t} 81 MG 00:00: 00 Aspirin 81 Aspirin 81 2016- No 1{table QD Aspirin 81 81 MG 81 MG 4-12 t} 81 MG 00:00: 00 Aspirin 81 Aspirin 81 No 1{table QD Aspirin 81 81 MG 81 MG 4-12 t} 81 MG 00:00: 00 Albuterol Albuterol 2014-06 Yes Esthela 1 puff Common Sulfate HFA Sulfate HFA 1-25 [place] [facility] 00:00: - [facility] Albuterol Albuterol 2014-06 No 1{puff} QID Albuterol Sulfate HFA Sulfate HFA 1-25 Sulfate 108 (90 108 (90 00:00: HFA 108 Base) Base) 00 (90 Base) MCG/ACT MCG/ACT MCG/ACT Albuterol Albuterol 2014-06 No 1{puff} QID Albuterol Sulfate HFA Sulfate HFA 1-25 Sulfate 108 (90 108 (90 00:00: HFA 108 Base) Base) 00 (90 Base) MCG/ACT MCG/ACT MCG/ACT Albuterol Albuterol 2015-1 No 1{puff} QID Albuterol Sulfate HFA Sulfate [...] times Medical daily with Branch meals. metroNIDAZO 2014-0 Yes 500mg Take 1 Tab Univers LE (FLAGYL) 7-04 by mouth 2 it y of 500 mg 00:00: (two) [place] tablet 00 times Medical daily. Branch proMETHazin Yes 25mg Take 1 Tab Univers e 7-04 by mouth ity of (PHENERGAN) 00:00: every 6 Shay as 25 mg 00 (six) Medical tablet hours as Branch needed for Nausea and Vomiting (N/V). metroNIDAZO 0 Yes 500mg Take 1 Tab Univers LE (FLAGYL) 7-04 by mouth 2 it y of 500 mg 00:00: (two) [place] tablet 00 times Medical daily. Branch proMETHazin Yes 25mg Take 1 Tab Univers e 7-04 by mouth ity of (PHENERGAN) 00:00: every 6 Shay as 25 mg 00 (six) Medical tablet hours as Branch needed for Nausea and Vomiting (N/V). metroNIDAZO 0 Yes 500mg Take 1 Tab Univers LE (FLAGYL) 7-04 by mouth 2 it y of 500 mg 00:00: (two) [place] tablet 00 times Medical daily. Branch proMETHazin Yes 25mg Take 1 Tab Univers e 7-04 by mouth ity of (PHENERGAN) 00:00: every 6 Shay as 25 mg 00 (six) Medical tablet hours as Branch needed for Nausea and Vomiting (N/V). Clonazepam Clonazepam Yes Esthela TAKE 1 Common [place] TABLET BY Spirit MOUTH - CHI TWICE A [facility] Carvedilol Carvedilol Yes Esthela take 1 Common [place] tablet by Spirit mouth - CHI twice a [facility] Famotidine Famotidine Yes Esthela 1 tablet Common [place] at bedtime [facility] Protonix Protonix Yes Esthela 1 tablet Co mmon [facility] Dicyclomine Dicyclomine Yes Esthela 1 tablet Common HCl HCl [facility] Ventolin Ventolin Yes Esthela 2 puffs Com mon HFA HFA [facility] Valsartan Valsartan Yes Esthela 1 tablet Common [place] Spirit - [facility] Hydrocodone Hydrocodone Yes Esthela (Schedule Common -Acetaminop -Acetaminop [place] II Drug) Spirit hen hen TK 1 T PO - CHI TID [facility] Pantoprazol Pantoprazol No Pantoprazo e Sodium 40 e Sodium 40 le Sodium MG MG 40 MG Carvedilol Carvedilol No Carvedilol 25 MG 25 MG 25 MG Dicyclomine Dicyclomine No 1{table QID Dicyclomin HCl 20 MG HCl 20 MG t} e HCl 20 MG Creon Creon No Creon [id number] [address] UNIT UNIT 0 UNIT OneTouch OneTouch No OneTouch Ultra - Ultra - Ultra - Lactulose Lactulose No 15{ml} Lactulose 10 GM/15ML 10 GM/15ML 10 GM/15ML Carvedilol Carvedilol No BID Carvedilol 25 MG 25 MG 25 MG HYDROcodone HYDROcodone No HYDROcodon -Acetaminop -Acetaminop e-Acetamin hen 10-325 hen 10-325 ophen MG MG 10-325 MG OneTouch OneTouch No OneTouch Delica Plus Delica Plus Delica Nvnaei25B - Yfolmw17Z - Plus Uprwlf47F - Famotidine Famotidine No 1{table BID Famotidine [...] MG 25 MG Creon Creon No Creon [id number] [phone] [phone] UNIT UNIT 0 UNIT Famotidine Famotidine No 1{table BID Famotidine 20 MG 20 MG t_at_be 20 MG dtime} Ventolin Ventolin No 2{puffs Ventolin HFA 108 (90 HFA 108 (90 } HFA 108 Base) Base) (90 Base) MCG/ACT MCG/ACT MCG/ACT Carvedilol Carvedilol No Carvedilol 25 MG 25 MG 25 MG OneTouch OneTouch No OneTouch Delica Plus Delica Plus Delica Fotfkk72O - Gosfxm27D - Plus Djoidi03R - Dicyclomine Dicyclomine No 1{table QID Dicyclomin [...] HCl 20 MG Creon Creon No Creon [id number] [phone] [address] UNIT UNIT 0 UNIT Carvedilol Carvedilol No BID Carvedilol 25 MG 25 MG 25 MG Carvedilol Carvedilol No Carvedilol 25 MG 25 MG 25 MG Lactulose Lactulose No 15{ml} Lactulose 10 GM/15ML 10 GM/15ML 10 GM/15ML OneTouch OneTouch No OneTouch Delica Plus Delica Plus Delica Ptvdvg37S - Qzfukc97Z - Plus Rdsnzo36N - Protonix 40 Protonix 40 No 1{table [...] t} 40 MG Creon Creon No Creon [phone] [address] UNIT UNIT 0 UNIT Carvedilol Carvedilol No [...] No OneTouch Delica Plus Delica Plus Delica Ixcntk27O - Igiixr40O - Plus Prmgud02J - HYDROcodone HYDROcodone No HYDROcodon -Acetaminop -Acetaminop [...] No OneTouch Delica Plus Delica Plus Delica Heaqer09Q - Ojditf85I - Plus Gpzdtp44W - Pantoprazol Pantoprazol No Pantoprazo e Sodium [...] - Ultra - Creon Creon No Creon [phone] [phone] [address]-7[address] UNIT UNIT 0 UNIT HYDROcodone HYDROcodone No HYDROcodon -Acetaminop -Acetaminop e-Acetamin hen 10-325 hen 10-325 ophen MG MG 10-325 MG Carvedilol Carvedilol No BID Carvedilol 25 MG 25 MG 25 MG Protonix 40 Protonix 40 No 1{table QD Protonix MG MG t} 40 MG OneTouch OneTouch No OneTouch Delica Plus Delica Plus Delica Zthhnd95V - Fnwxah28E - Plus Qgzsbu87U - Pantoprazol Pantoprazol No Pantoprazo e Sodium [...] - Ultra - Creon Creon No Creon 01260-72731 [phone] [address] UNIT UNIT 0 UNIT HYDROcodone HYDROcodone No HYDROcodon -Acetaminop -Acetaminop e-Acetamin hen 10-325 hen 10-325 ophen MG MG 10-325 MG Carvedilol Carvedilol No BID Carvedilol 25 MG 25 MG 25 MG Protonix 40 Protonix 40 No 1{table QD Protonix MG MG t} 40 MG OneTouch OneTouch No OneTouch Delica Plus Delica Plus Delica Kahgrx10J - Ckhwpd86E - Plus Zoserv38F - Pantoprazol Pantoprazol No Pantoprazo e Sodium [...] - Ultra - Creon Creon No Creon [phone] [phone] [address] UNIT UNIT 0 UNIT HYDROcodone HYDROcodone No HYDROcodon -Acetaminop -Acetaminop e-Acetamin hen 10-325 hen 10-325 ophen MG MG 10-325 MG Carvedilol Carvedilol No BID Carvedilol 25 MG 25 MG 25 MG Protonix 40 Protonix 40 No 1{table QD Protonix MG MG t} 40 MG OneTouch OneTouch No OneTouch Delica Plus Delica Plus Delica Pljaof48A - Sujbca74Z - Plus Kxynhl02V - Pantoprazol Pantoprazol No Pantoprazo e Sodium [...] - Ultra - Creon Creon No Creon 14876-54437 [phone] [address] UNIT UNIT 0 UNIT HYDROcodone HYDROcodone No HYDROcodon -Acetaminop -Acetaminop e-Acetamin hen 10-325 hen 10-325 ophen MG MG 10-325 MG Carvedilol Carvedilol No BID Carvedilol 25 MG 25 MG 25 MG Pantoprazol Pantoprazol No Pantoprazo e Sodium 40 e Sodium 40 le Sodium MG MG 40 MG Carvedilol Carvedilol No BID Carvedilol [...] Base) Base) (90 Base) MCG/ACT MCG/ACT MCG/ACT HYDROcodone HYDROcodone No HYDROcodon -Acetaminop -Acetaminop e-Acetamin hen 10-325 hen 10-325 ophen MG MG 10-325 MG OneTouch OneTouch No OneTouch Ultra - Ultra - Ultra - Carvedilol Carvedilol No Carvedilol 25 MG 25 MG 25 MG Lactulose Lactulose No 15{ml} Lactulose 10 GM/15ML 10 GM/15ML 10 GM/15ML Creon Creon No Creon [phone] [phone] [address] UNIT UNIT 0 UNIT Dicyclomine Dicyclomine No 1{table QID Dicyclomin HCl 20 MG HCl 20 MG t} e HCl 20 MG Protonix 40 Protonix 40 No 1{table QD Protonix MG MG t} 40 MG OneTouch OneTouch No OneTouch Delica Plus Delica Plus Delica Zhzoew07E - Gkdmfq74C - Plus Sqgkgz74V - Pantoprazol Pantoprazol No Pantoprazo e Sodium 40 e Sodium 40 le Sodium MG MG 40 MG Carvedilol Carvedilol No BID Carvedilol [...] Base) Base) (90 Base) MCG/ACT MCG/ACT MCG/ACT HYDROcodone HYDROcodone No HYDROcodon -Acetaminop -Acetaminop e-Acetamin hen 10-325 hen 10-325 ophen MG MG 10-325 MG OneTouch OneTouch No OneTouch Ultra - Ultra - Ultra - Carvedilol Carvedilol No Carvedilol 25 MG 25 MG 25 MG Lactulose Lactulose No 15{ml} Lactulose 10 GM/15ML 10 GM/15ML 10 GM/15ML Creon Creon No Creon [phone] 29745-85758 [address]42-[address] UNIT UNIT 0 UNIT Dicyclomine Dicyclomine No 1{table QID Dicyclomin HCl 20 MG HCl 20 MG t} e HCl 20 MG Protonix 40 Protonix 40 No 1{table QD Protonix MG MG t} 40 MG OneTouch OneTouch No OneTouch Delica Plus Delica Plus Delica Pzytla13Q - Pvkssy25K - Plus Mjjihq73S - Creon Creon No Creon [id number] [phone] [address] UNIT UNIT 0 UNIT clonazePAM clonazePAM No BID clonazePAM 1 MG 1 MG 1 MG Protonix 40 Protonix 40 No 1{table QD Protonix MG MG t} 40 MG Carvedilol Carvedilol No BID Carvedilol 25 MG 25 MG 25 MG Creon Creon 2020- No Esthela take by Common 12-23 [place] mouth 1 Spirit 00:00 capsule 3 - CHI :00 times a day [facility] Vital Signs Vital Name Observation Time Observation Value Comments Source height 2022-04-11 15:40:00 70 [in_i] Common S pirit - [facility] weight 2022-04-11 15:40:00 206.9 [lb_av] Common [facility] temperature 2022-04-11 15:40:00 97.6 [degF] Common S pirit [facility] bmi 2022-04-11 15:40:00 29.68 kg/m2 [facility] 2022-04-11 15:40:00 98 % [facility] rate 2022-04-11 15:40:00 18 /min Comm on [facility] blood pressure 2022-04-11 15:40:00 138 mm[Hg] Common [facility] - systolic [facility] blood pressure 2022-04-11 15:40:00 72 mm[Hg] Common [facility] - diastolic [facility] height 2022-02-09 13:50:00 70 [in_i] Common [facility] weight 2022-02-09 13:50:00 207 [lb_av] [facility] S pirit [facility] temperature 2022-02-09 13:50:00 97.9 [degF] Common S [facility] bmi 2022-02-09 13:50:00 29.7 kg/m2 [facility] S [facility] oximetry 2022-02-09 13:50:00 96 % [facility] respiratory rate 2022-02-09 13:50:00 18 /min Comm on [facility] blood pressure 2022-02-09 13:50:00 132 mm[Hg] Common Spirit - systolic [facility] blood pressure 2022-02-09 13:50:00 70 mm[Hg] Common Spirit - diastolic [facility] height 2021-12-07 09:20:00 70 [in_i] Common [facility] weight 2021-12-07 09:20:00 206.0 [lb_av] [facility] temperature 2021-12-07 09:20:00 98.2 [degF] Common S pirit [facility] bmi 2021-12-07 09:20:00 29.55 kg/m2 Common [facility] oximetry 2021-12-07 09:20:00 99 % Common [facility] respiratory rate 2021-12-07 09:20:00 18 /min Comm on [facility] blood pressure 2021-12-07 09:20:00 137 mm[Hg] Common [facility] - systolic [facility] blood pressure 2021-12-07 09:20:00 70 mm[Hg] Common [facility] - diastolic [facility] height 2021-02-23 14:30:00 70 [in_i] [facility] weight 2021-02-23 14:30:00 190.0 [lb_av] [facility] temperature 2021-02-23 14:30:00 98.3 [degF] [facility] bmi 2021-02-23 14:30:00 27.26 kg/m2 Common [facility] blood pressure 2021-02-23 14:30:00 138 mm[Hg] Common [facility] - systolic [facility] blood pressure 2021-02-23 14:30:00 74 mm[Hg] Common [facility] - diastolic [facility] Systolic blood 2020-12-28 20:04:00 155 mm[Hg] Univer sity of pressure [facility] Diastolic blood 2020-12-28 20:04:00 82 mm[Hg] Unive rsity of [facility] Heart rate 2020-12-28 20:04:00 61 /min Universi [facility] Body temperature 2020-12-28 20:04:00 36.67 [facility] Res[facility] rate 2020-12-28 20:04:00 16 /min [facility] Body height 2020-12-28 20:04:00 177.8 cm Universi ty [facility] Body weight 2020-12-28 20:04:00 86.183 kg Universi [facility] BMI 2020-12-28 20:04:00 27.26 kg/m2 Universi ty [facility] [place] [facility] Oxygen saturation in 2020-12-28 20:04:00 97 /min University of Arterial blood by [facility] jose manuel Pulse oximetry Branch Systolic blood [...] 99 /min University of Arterial blood by [facility] Pulse oximetry Branch Body temperature 2019-07-21 23:21:00 37 Jing [facility] [place] [facility] Body weight 2019-07-21 23:21:00 86.183 kg [facility]i [facility] [place] [facility] BMI 2019-07-21 23:21:00 27.26 kg/m2 Universi ty of [place] [facility] Systolic blood 2019-07-22 04:00:00 147 mm[Hg] [facility] [place] [facility] Diastolic blood 2019-07-22 04:00:00 87 mm[Hg] [facility] [place] [facility] Heart rate 2019-07-22 04:00:00 54 /min [facility] [place] [facility] Respiratory rate 2019-07-22 04:00:00 20 /min [facility] [place] [facility] Oxygen saturation in 2019-07-22 04:00:00 99 /min [facility] of Arterial blood by [facility] Pulse oximetry Branch Body temperature 2019-07-21 23:21:00 37 Jing [facility] [place] [facility] Body weight 2019-07-21 23:21:00 86.183 kg [facility] [place] [facility] BMI 2019-07-21 23:21:00 27.26 kg/m2 [facility] [place] [facility] Systolic (mm Hg) 2019-03-28 18:17:00 Lucio burch [place] Diastolic (mm Hg) 2019-03-28 18:17:00 Mem orial [facility] Heart Rate 2019-03-28 18:17:00 [facility] Respitory Rate 2019-03-28 18:17:00 Willori al [place] Height 2019-03-28 18:17:00 172.72 cm [facility] Weight 2019-03-28 18:17:00 [facility] BMI Calculated 2019-03-28 18:17:00 Gricel Wright BMI Calculated 2018-09-26 18:51:00 Gricel Wright Weight 2018-09-26 18:51:00 [facility] Height 2018-09-26 18:51:00 172.72 cm [facility] Heart Rate 2018-09-26 18:51:00 [facility] Respitory Rate 2018-09-26 18:51:00 Gricel Morfinann Systolic (mm Hg) 2018-09-26 18:51:00 Lucio Fernándezann Diastolic (mm Hg) 2018-09-26 18:51:00 Mem oridavonte Gordon Procedures Procedure Date / Time Performed Performing Clinician Shana shonda NOTICE OF PRIVACY 2020-12-28 19:58:01 [facility]igned, [facility] CONSENT/REFUSAL FOR 2020-12-28 19:57:10 Doctor Unassigned, No [facility] [place] DI[facility]NOS[facility] AND Name Medical Branch TREATMENT US SCROTUM AND 2019-07-22 03:08:48 Lucho Alfaro [facility] Medical [facility] NOTICE OF PRIVACY 2019-07-21 23:12:14 Doctor Un[facility]igned, No [facility] CONSENT/REFUSAL FOR 2019-07-21 23:07:41 Doctor Unassigned, No [facility] [place] DIAGNOSIS AND Name Medical Branch TREATMENT Encounters Start End Encounter Admission Attending Care Care Encounter Source Date/Time Date/Time Type Type Clinicians Facility Department ID 2022-08-17 Outpatient JenkinsSARMAD boggs [facility] [id number] Common 14:47:00 Formerly [facility] [address]14 [facility] 2022-06-02 Outpatient [facility] [id number] [place] 08:30:58 [id number] Health 2022-05-24 Outpatient JenkinsSARMAD boggs [facility] [id number] Common 13:55:01 [facility]ly [facility] 2022-05-23 Outpatient JenkinsSARMAD boggs [facility] [id number] Common 10:20:01 [facility]ly [facility] 2022-05-04 Outpatient [facility] [id number] [place] 14:32:40 [id number] [facility] 2022-04-07 Outpatient Jenkins, STLMLC STLMLC [id number] Common 13:30:01 [facility]ly [facility] 2022-04-04 Outpatient [facility] [id number] [place] 10:22:48 [id number] [facility] 2022-03-31 Outpatient [facility] [id number] [place] 12:03:45 [id number] [facility] 2022-03-30 Outpatient [facility] [id number] [place] 15:15:47 [id number] [facility] 2022-02-09 Outpatient Jenkins, STLMLC STLMLC [id number] Common 13:48:01 Reese 21478 [facility] 2021-12-08 Outpatient Jenkins, STLMLC STLMLC [id number] Common 11:45:00 [facility]ly [facility] 48405 [facility] 2021-12-07 Outpatient Jenkins, STLMLC STLMLC [id number] Common 09:25:00 [facility]ly [facility] 04801 [facility] 2021-12-03 Outpatient Jenkins, STLMLC STLMLC [id number] Common 09:35:01 Reese [id number] [facility] 2021-06-30 Outpatient Jenkins, STLMLC STLMLC [id number] Common 13:05:56 Reese 36773 [facility] 2021-06-30 Outpatient Jenkins, STLMLC STLMLC [id number] Common 12:47:29 Reese 24565 [facility] 2021-06-30 Outpatient Jenkins, STLMLC STLMLC [id number] Common 12:36:27 Reese 90453 [facility] 2021-06-30 Outpatient Jenkins, STLMLC STLMLC [id number] Common 12:35:26 Reese 07338 [facility] 2021-06-30 Outpatient Jenkins, STLMLC STLMLC [id number] Common 12:28:53 Reese 30369 [facility] 2021-06-30 Outpatient Jenkins, STLMLC STLMLC [id number] Common 12:26:11 Reese 33544 [facility] 2021-06-30 Outpatient Jenkins, STLMLC STLC [id number] Common 12:12:23 Reese 92602 [facility] 2021-06-30 Outpatient Jenkins, STLMLC STLC [id number] Common 12:04:45 Reese 26661 [facility] 2021-06-30 Outpatient Jenkins, STLMLC STLC [id number] Common 11:55:15 Reese 84495 [facility] 2021-06-30 Outpatient Jenkins, STLMLC STLC [id number] Common 11:52:56 Reese 14621 [facility] 2021-06-30 Outpatient Jenkins, STLMLC STLC [id number] Common 11:52:32 Reese 53109 [facility] 2021-06-30 Outpatient Millender, STLMLC [facility] [id number] 11:02:50 Fernanda 48900 [facility] 2021-06-30 Outpatient Millender, STLMLC STLC [id number] 11:02:33 Fernanda 90031 [facility] 2022-06-16 2022-06-16 Outpatient TOM, [facility] [id number] [place] 13:00:00 13:00:00 [facility] 2022-05-12 2022-05-12 [facility] 6400 [id number] [place] 11:30:00 13:38:22 Visit Denzelcelso PERSAUDNIN [id number] [facility] [id number] 2022-04-19 2022-04-19 (TEL) [facility] [id number] Co mmon 00:00:00 00:00:00 [facility] 2022-04-14 2022-04-14 Outpatient TOM, [facility] [id number] [place] 10:30:00 12:17:23 [facility] 2022-04-11 2022-04-11 OFFICE STLMLC STLMLC [id number] Co mmon 00:00:00 00:00:00 VISIT [facility] ESTAB PT - CHI LEVEL 4 [facility] 2022-04-04 2022-04-04 Office Tom [facility] 6400 [id number] [place] 10:30:00 16:18:07 Visit Ward BROWN [id number] Health [id number] 2022-03-25 2022-03-25 Outpatient TOM [facility] [id number] [place] 11:00:00 11:00:00 [facility] 2022-03-24 2022-03-24 (TEL) STLMLC STLMLC [id number] Co mmon 00:00:00 00:00:00 [facility] 2022-03-23 2022-03-23 (TEL) STLMLC STLMLC [id number] Co mmon 00:00:00 00:00:00 [facility] 2022-03-23 2022-03-23 (TEL) STLMLC STLMLC [id number] Co mmon 00:00:00 00:00:00 [facility] 2022-03-23 2022-03-23 (TEL) STLMLC STLMLC [id number] Co mmon 00:00:00 00:00:00 [facility] 2022-02-09 2022-02-09 OFFICE STLMLC STLMLC [id number] Co mmon 00:00:00 00:00:00 [facility]IT [facility] ESTAB PT - CHI LEVEL 4 [facility] 2021-12-07 2021-12-07 OFFICE STLMLC STLMLC [id number] Co mmon 00:00:00 00:00:00 [facility] ESTAB PT - CHI LEVEL 4 [facility] 2021-03-24 2021-03-24 (TEL) STLMLC STLMLC [id number] Co mmon 00:00:00 00:00:00 [facility] 2021-02-23 2021-02-23 (TELEAUD) STLMLC STLMLC [id number] Common 00:00:00 00:00:00 AUDIO [facility] TELEMEDICI [facility] 2021-02-22 2021-02-22 (TEL) STLMLC STLMLC [id number] Co mmon 00:00:00 00:00:00 [facility] 2020-12-28 2020-12-28 Emergency Waters, [facility] [id number] Univers 15:10:00 16:55:00 Shania Lange [place] [id number] i ty [facility] [id number] [facility] [id number] [facility] 084 Branch 2020-12-28 2020-12-28 Emergency X [place] ERT [id number] Univers 14:57:00 14:57:00 ity of [facility] 2020-12-28 2020-12-28 Orders Doctor POPPY [id number] Univers 00:00:00 00:00:00 Only Unassigned, RAJIV [id number] ity of [employer] [place] [facility] [id number] [facility] [id number] [facility] 009 Branch 2020-12-24 2020-12-24 Outpatient STLMLC STLMLC [id number] Common 00:00:00 00:00:00 [facility] 2020-12-17 2020-12-17 Outpatient STLMLC STLMLC [id number] Common 00:00:00 00:00:00 [facility] 2020-12-04 2020-12-04 Outpatient STLMLC STLMLC [id number] Common 00:00:00 00:00:00 [facility] 2020-10-22 2020-10-22 Outpatient STLMLC STLMLC [id number] Common 00:00:00 00:00:00 [facility] 2020-10-15 2020-10-15 Outpatient STLMLC STLMLC [id number] Common 00:00:00 00:00:00 [facility] 2020-10-072020-10-07 Outpatient STLMLC STLMLC [id number] Common 00:00:00 00:00:00 [facility] 2020-09-07 2020-09-07 Outpatient STLMLC STLMLC [id number] Common 00:00:00 00:00:00 [facility] 2020-08-06 2020-08-06 Outpatient STLMLC STLMLC [id number] Common 00:00:00 00:00:00 [facility] 2020-07-09 2020-07-09 Outpatient STLMLC STLMLC [id number] Common 00:00:00 00:00:00 [facility] 2020-06-09 2020-06-09 Outpatient STLMLC STLMLC [id number] Common 00:00:00 00:00:00 [facility] 2020-05-21 2020-05-21 Outpatient STLMLC STLMLC [id number] Common 00:00:00 00:00:00 [facility] 2020-05-14 2020-05-14 Outpatient STLMLC STLMLC [id number] Common 00:00:00 00:00:00 [facility] 2020-04-28 2020-04-28 Outpatient STLMLC STLMLC [id number] Common 00:00:00 00:00:00 [facility] 2020-04-16 2020-04-16 Outpatient STLMLC STLMLC [id number] Common 00:00:00 00:00:00 [facility] 2020-03-18 2020-03-18 Outpatient STLMLC STLMLC [id number] Common 00:00:00 00:00:00 [facility] 2020-03-18 2020-03-18 Outpatient STLMLC STLMLC [id number] Common 00:00:00 00:00:00 [facility] 2020-03-10 2020-03-10 Outpatient STLMLC STLMLC [id number] Common 00:00:00 00:00:00 [facility] 2020-01-30 2020-01-30 Outpatient Ajibade_O_A VFP VFP [id number] [facility] 04:28:00 04:28:00 H [id number] [facility] Practic e 2020-01-30 2020-01-30 Outpatient Ajibade_O_A VFP VFP [id number] [facility] 04:28:00 04:28:00 H [id number] Family Practic e 2020-01-30 2020-01-30 Outpatient Ajibade_O_A VFP VFP [id number] [facility] 04:28:00 04:28:00 H [id number] Family Practic e 2020-01-30 2020-01-30 Outpatient Ajibade_O_A VFP VFP [id number] [facility] 04:28:00 04:28:00 H [id number] Family Practic e 2019-07-24 2019-07-24 Outpatient Ige-Odunuga VFP VFP [id number] [facility] 07:17:00 07:17:00 _J_AH 16916 Family Practic e 2019-07-24 2019-07-24 Outpatient Ige-Odunuga VFP VFP [id number] [facility] 07:17:00 07:17:00 _J_AH [id number] Family Practic e 2019-07-21 2019-07-21 [facility] ERT [id number] Univers 18:06:23 22:09:00 LUCHO catherine [facility] 2019-07-21 2019-07-21 [facility] [id number] Univers 18:06:23 22:09:00 Lucho Layton [id number] florin [facility] [id number] [facility] [id number] [address] 2019-07-21 2019-07-21 [facility] [id number] 18:06:23 22:09:00 Lucho Layton [id number] [address]ve [id number] [place] [address] [id number] [facility] 2019-07-15 2019-07-15 Outpatient Malena Preston [id number] Common 15:01:00 15:01:00 t Specialty/U Sp jose alberto Specialty rology - CHI /Urology Clinic [facility] 2019-07-09 2019-07-09 [facility] [id number] Common 16:46:00 16:46:00 t Specialty/U Sp jose alberto Specialty rology - CHI /Urology Clinic [facility] 2019-07-08 2019-07-08 Out[facility] [id number] Common 14:51:00 14:51:00 t Specialty/U Sp jose alberto Specialty rology - CHI /Urology Clinic [facility] 2019-07-08 2019-07-08 Out[facility] [id number] Common 08:00:00 08:00:00 t Specialty/U Sp jose alberto Specialty rology - CHI /Urology Clinic [facility] 2019-07-04 2019-07-04 Outpatient [facility] [id number] Common 13:00:00 13:00:00 t Specialty/U Sp jose alberto Specialty rology - CHI /Urology Clinic [facility] 2019-07-02 2019-07-02 Outpatient [facility] [id number] Common 14:32:00 14:32:[address] [facility] [address] [facility] it Road [facility] 2019-06-27 2019-06-27 Outpatient [facility] [id number] Common 14:40:00 14:40:[address] [facility] [address] [facility] it Road [facility] 2019-06-03 2019-06-03 Outpatient [facility] [id number] Common 11:17:00 11:17:[address] [facility] [address] [facility] it Road [facility] 2019-04-18 2019-04-20 Outside nullFlavo MNA [id number] Memoria 18:37:59 05:59:59 Medical r Neurology 01 l Records Ashlee Gordon 2019-04-11 2019-04-11 Ambulatory nullFlavo MNA [id number] Memoria 21:30:00 21:30:00 Pre-Reg r Neurology 03 l Ashlee Gordon 2019-04-09 2019-04-09 [facility] [id number] Common 15:20:00 15:20:[address] [facility] [address] [facility] it Road [facility] 2019-04-01 2019-04-03 Outside nullFlavo MNA [id number] Memoria 13:58:44 04:59:59 Medical r Neurology 00 l Records Ashlee Gordon 2019-03-28 2019-03-29 Outpatient nullFlavo MNA [id number] Memoria 18:00:00 04:59:59 r Neurology 02 l Sn[place]juliano Fernándezann 2019-02-19 2019-02-19 Out[facility] [id number] Common 14:40:00 14:40:[address] [facility] 2018-12-11 2018-12-11 Outpatient [facility] [id number] Common 11:21:00 11:21:[address] [facility] [address] [facility] 2018-11-19 2018-11-19 Outpatient [facility] [id number] Common 14:40:00 14:40:[address] [facility] 2018-10-31 2018-10-31 Ambulatory nullFlavo MNA [id number] Memoria 18:45:00 18:45:00 Pre-Reg r Neurology 01 l [place] Evan 2018-09-26 2018-09-27 Outpatient nullFlavo MNA [id number] Memoria 18:30:00 04:59:59 r Neurology 00 l [place] Evan 2018-09-17 2018-09-17 [facility] [id number] Common 16:00:00 16:00:[address] [facility] 2018-08-02 2018-08-02 Out[facility] [id number] Common 16:07:00 16:07:[address] [facility] 2018-08-02 2018-08-02 Out[facility] [id number] Common 16:05:00 16:05:00 [address] [place] [address] [facility] 2018-06-18 2018-06-18 Out[facility] [id number] Common 16:00:00 16:00:[address] [facility] 2018-01-18 2018-01-18 Outpatient [facility] [id number] Common 14:00:00 14:00:[address] [facility] [address] [facility] 2017-09-19 2017-09-19 [facility] [id number] Common 09:33:00 09:33:[address] [facility] 2017-09-14 2017-09-14 [facility] [id number] Common 13:00:00 13:00:00 t [facility] it Road [facility] 2017-09-12 2017-09-12 [facility] [id number] Common 11:05:00 11:05:00 [facility] 2017-08-29 2017-08-29 [facility] [place] [facility] [id number] Common 15:30:00 15:30:00 [facility] Results Test Description Test Time Test Comments Results Result [facility] e Comments US SCROTUM AND 2019-07-06 No evidence for Univ ersity of CONTENTS 7 testicular torsion. [facility] 03:19:48 No definite Branch evidence for epididymo-orchitis. RL: [id number] AFC: [id number] Ordering physician: LUCHO ALFARO INDICATION: Scrotal pain [...] - 07/21/2019 9:21 PM CSTOrdering physician: LUCHO ALFAROINDICATION: Scrotal painCOMPARISON: NoneTECHNIQUE: Grayscale and Doppler images [...] torsion.No definite evidence for epididymo-orchitis. RL: [id number]: [id number] signed by Kristen Valdez MD, PhD at 07/21/2019 9:19 PM
[2022-08-23 03:17] LABS: Absolute Lymphocytes (CBC) 3.2 K/uL (0.7-4.9); Hematocrit 43.8 % (39.6-49.0); Lymphocytes % 38.9 % (15.3-44.8); MCV 89.8 fL (80-100); MPV 7.5 fL (7.6-11.3); RBC Red Blood Cell Count 4.87 M/uL (4.33-5.43)
[2022-08-23 03:22] LABS: Protime INR 1.11
[2022-08-23 03:32] LABS: Albumin 3.7 g/dL (3.4-5.0); Bilirubin Total 0.3 mg/dL (0.2-1.0); Protein, Total 7.3 g/dL (6.4-8.2)
[2022-08-23 04:08] LABS: Specific Gravity 1.021 (1.005-1.030); Urine Bacteria None Seen /HPF (<20); Urine Bilirubin NEGATIVE (Negative); Urine Blood Negative (Negative); Urine Clarity Clear (Clear); Urine Color Light-Yellow (Yellow); Urine Glucose NEGATIVE (Negative); Urine Mucus Slight /HPF (None Seen); Urine Protein NEGATIVE (Negative); Urine RBC None Seen /HPF (None Seen); Urine Urobilinogen Normal (Normal); Urine pH 5.5 (5.0-7.0)
--- NOTE | 2022-08-23 05:46 | ER ---
[facility] Name: Alfredo Escobar Age: 61 yrs Sex: Male : 1960 Arrival Date: 08/23/2022 Time: 02:00 Bed 7 Private MD: Diagnosis: Crohn's disease, unspecified, without complications Presentation: 08/23 02:44 Chief complaint: Patient states: C/o abdominal cramping/swelling for past two weeks, ll3 yesterday evening pt experienced 1 episode of rectal bleeding, c/o body aches, states pain is 7/10. Coronavirus screen: Vaccine status: Patient reports being unvaccinated. At this time, the client does not indicate any symptoms associated with coronavirus-19. Ebola Screen: No symptoms or risks identified at this time. Initial Sepsis Screen: Does the patient meet any 2 criteria? No. Patient's initial sepsis screen is negative. Does the patient have a suspected source of infection? No. Patient's initial sepsis screen is negative. Risk Assessment: Do you want to hurt yourself or someone else? Patient reports no desire to harm self or others. Onset of symptoms was August 09, 2022. 02:44 Method Of Arrival: Ambulatory ll3 02:44 Acuity: BUCKY 3 ll3 Triage Assessment: 02:46 General: Appears uncomfortable, Behavior is calm, cooperative. Pain: Complains of pain ll3 in right lower quadrant and left lower quadrant Pain does not radiate. Pain currently is 7 out of 10 on a pain scale. Pain began 2 weeks ago Is continuous. Respiratory: Respiratory effort is even, unlabored, Respiratory pattern is regular, symmetrical. GI: Abdomen is round distended, Stools are reported to be one episode of bloody stool. Reports lower abdominal pain, bloody stool. Derm: Skin is pink, warm \T\ dry. Historical: - Allergies: 02:46 Bactrim; ll3 02:46 Iodine; ll3 02:46 Keflex; ll3 02:46 Latex, Natural Rubber; ll3 02:46 Levaquin; ll3 02:46 promethazine HCl; ll3 02:46 Toradol; ll3 - Home Meds: 02:46 carvedilol oral [Active]; Garfield Oral [Active]; pantoprazole oral [Active]; ll3 - PMHx: 02:46 Anxiety; Arthritis; Crohn's; GERD; Pancreatitis; PTSD; ll3 - PSHx: 02:46 eye; ll3 - Immunization history:: Client reports having NOT received the Covid vaccine. - Social history:: Smoking status: Patient reports use of chewing tobacco. Screenin:53 [facility] ED Fall Risk Assessment (Adult) History of falling in the last 3 months, ll3 including since admission No falls in past 3 months (0 pts) Confusion or Disorientation No (0 pts) Intoxicated or Sedated No (0 pts) Impaired Gait No (0 pts) Mobility Assist Device Used No (0 pt) Altered Elimination No (0 pt) Score/Fall Risk Level 0 - 2 = Low Risk Oriented to surroundings, Maintained a safe environment, Educated pt \T\ family on fall prevention, incl call for assistance when getting out of bed. Abuse screen: Denies threats or abuse. Denies injuries from another. Nutritional screening: No deficits noted. Tuberculosis screening: No symptoms or risk factors identified. Assessment: 02:46 General: See triage assessment. ll3 Vital Signs: 02:44 BP 177 / 91; Pulse 59; Resp 18; Temp 98(O); Pulse Ox 98% on R/A; Weight 99.79 kg (R); ll3 Height 5 ft. 10 in. (R); Pain 7/10; 03:58 BP 152 / 76; Pulse 51; Resp 18 S; Pulse Ox 98% on R/A; ll3 05:55 BP 125 / 58; Pulse 53; Resp 18; Pulse Ox 97% on R/A; ll3 02:44 Body Mass Index 31.57 (99.79 kg, 177.8 cm) ll3 02:44 Pain Scale: Adult ll3 ED Course: 02:00 Patient arrived in ED. ja2 02:27 Lei Jenkins MD is Attending Physician. sp3 02:46 Triage completed. ll3 02:46 Arm band placed on Patient placed in an exam room, on a stretcher, on pulse oximetry. ll3 03:08 Urinalysis W/Microscopic Sent. ll3 03:08 Initial lab(s) drawn, by nd, sent to lab. Inserted saline lock: 20 gauge in right ll3 antecubital area, using aseptic technique. Blood collected. 05:14 CT Abd/Pelvis - PO and IV Contrast In Process Unspecified. EDMS 05:53 Patient has correct armband on for positive identification. Bed in low position. Call ll3 light in reach. Side rails up X 1. 05:53 No provider procedures requiring assistance completed. IV discontinued, intact, ll3 bleeding controlled, No redness/swelling at site. Pressure dressing applied. Administered Medications: No medications were administered Medication: 05:53 VIS not applicable for this client. ll3 Outcome: 05:45 Discharge ordered by . sp3 05:53 Discharged to home ambulatory. ll3 05:53 Condition: stable 05:53 Discharge instructions given to patient, Instructed on discharge instructions, follow up and referral plans. medication usage, Demonstrated understanding of instructions, follow-up care, medications, Prescriptions given X 1. 05:54 Patient left the ED. ll3 Signatures: Dispatcher [employer] EDIN Lei Jenkins MD MD sp3 Floresita Carvajal Lynsea RN RN ll3 Corrections: (The following items were deleted from the chart) 03:09 03:08 General: See triage assessment. ll3 ll3
--- NOTE | 2022-08-23 05:46 | EDPHYS ---
Physician Documentation [facility] Name: Alfredo Escobar Age: 61 yrs Sex: Male : 1960 Arrival Date: 08/23/2022 Time: 02:00 Bed 7 Private MD: ED Physician Lei Jenkins HPI: 08/23 02:43 This 61 yrs old Male presents to ER via Unassigned with complaints of Abdominal Pain, sp3 Rectal Bleeding. 02:43 61-year-old male with history of Crohn's disease, hypertension, multiple episodes of sp3 prior GI bleed in the past presents to the ED with chief complaint dark stools and bleeding with stools for approximately 1 week. Patient also states he is diffuse abdominal pain/cramping and is worried about his Crohn's disease. On review of systems, patient denies headache, fever, URI symptoms, chest pain, shortness of breath, back pain, vomiting, rash, known sick contacts, travel history, or any other symptoms at this time. 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 He returns now for work-up. PCP is Dr. Jenkins locally here in [place].. Historical: - Allergies: 02:46 Bactrim; ll3 02:46 Iodine; ll3 02:46 Keflex; ll3 02:46 Latex, Natural Rubber; ll3 02:46 Levaquin; ll3 02:46 promethazine HCl; ll3 02:46 Toradol; ll3 - Home Meds: 02:46 carvedilol oral [Active]; [place] Oral [Active]; pantoprazole oral [Active]; ll3 - PMHx: 02:46 Anxiety; Arthritis; Crohn's; GERD; Pancreatitis; PTSD; ll3 - PSHx: 02:46 eye; ll3 - Immunization history:: Client reports having NOT received the Covid vaccine. - Social history:: Smoking status: Patient reports use of chewing tobacco. ROS: 02:44 Constitutional: Negative for fever, chills, and weight loss, Eyes: Negative for injury, sp3 pain, redness, and discharge, ENT: Negative for injury, pain, and discharge, Neck: Negative for injury, pain, and swelling, Cardiovascular: Negative for chest pain, palpitations, and edema, Respiratory: Negative for shortness of breath, cough, wheezing, and pleuritic chest pain, Back: Negative for injury and pain, MS/Extremity: Negative for injury and deformity, Skin: Negative for injury, rash, and discoloration, Neuro: Negative for headache, weakness, numbness, tingling, and seizure, Psych: Negative for depression, anxiety, suicide ideation, homicidal ideation, and hallucinations, Allergy/Immunology: Negative for hives, rash, and allergies, Endocrine: Negative for neck swelling, polydipsia, polyuria, polyphagia, and marked weight changes. 02:44 All other systems are negative. Exam: 02:44 Constitutional: This is a well developed, well nourished patient who is awake, alert, sp3 and in no acute distress. Head/Face: Normocephalic, atraumatic. Eyes: Pupils equal round and reactive to light, extra-ocular motions intact. Lids and lashes normal. Conjunctiva and sclera are non-icteric and not injected. Cornea within normal limits. Periorbital areas with no swelling, redness, or edema. Neck: Trachea midline, no thyromegaly or masses palpated, and no cervical lymphadenopathy. Supple, full range of motion without nuchal rigidity, or vertebral point tenderness. No Meningismus. Chest/axilla: Normal chest wall appearance and motion. Nontender with no deformity. No lesions are appreciated. Cardiovascular: Regular rate and rhythm with a normal S1 and S2. No gallops, murmurs, or rubs. Normal PMI, no JVD. No pulse deficits. Respiratory: Lungs have equal breath sounds bilaterally, clear to auscultation and percussion. No rales, rhonchi or wheezes noted. No increased work of breathing, no retractions or nasal flaring. Back: No spinal tenderness. No costovertebral tenderness. Full range of motion. Skin: Warm, dry with normal turgor. Normal color with no rashes, no lesions, and no evidence of cellulitis. MS/ Extremity: Pulses equal, no cyanosis. Neurovascular intact. Full, normal range of motion. Neuro: Awake and alert, GCS 15, oriented to person, place, time, and situation. Cranial nerves II-XII grossly intact. Motor strength 5/5 in all extremities. Sensory grossly intact. Cerebellar exam normal. Normal gait. Psych: Awake, alert, with orientation to person, place and time. Behavior, mood, and affect are within normal limits. 02:44 Abdomen/GI: Diffuse abdominal pain without peritoneal signs or rebound or guarding.. Vital Signs: 02:44 BP 177 / 91; Pulse 59; Resp 18; Temp 98(O); Pulse Ox 98% on R/A; Weight 99.79 kg (R); ll3 Height 5 ft. 10 in. (R); Pain 7/10; 03:58 BP 152 / 76; Pulse 51; Resp 18 S; Pulse Ox 98% on R/A; ll3 05:55 BP 125 / 58; Pulse 53; Resp 18; Pulse Ox 97% on R/A; ll3 02:44 Body Mass Index 31.57 (99.79 kg, 177.8 cm) ll3 02:44 Pain Scale: Adult ll3 MDM: 02:42 Patient medically screened. sp3 02:45 Data reviewed: vital signs, nurses notes, lab test result(s), radiologic studies. ED sp3 course: Diagnosis includes Crohn's flare, colitis, gastroenteritis, sepsis, among others. Will obtain laboratory values, urinalysis, CT scan of the abdomen pelvis with p.o. and IV contrast to further elucidate patient's symptoms. Given his history of Crohn's, this is the most likely etiology. Disposition will be based on patient course and work-up.. 05:45 ED course: CT scan and labs demonstrate no significant abnormality. Will place patient sp3 on 3 days of prednisone and follow-up with his GI physician.. 08/23 02:32 Order name: CBC with Diff; Complete Time: 04:02 sp3 08/23 02:32 Order name: CMP; Complete Time: 04:02 sp3 08/23 02:32 Order name: Lipase; Complete Time: 04:02 sp3 08/23 02:32 Order name: PT-INR; Complete Time: 04:02 sp3 08/23 02:39 Order name: Urinalysis W/Microscopic sp3 08/23 02:39 Order name: CT Abd/Pelvis - PO and IV Contrast sp3 08/23 02:32 Order name: IV Saline Lock; Complete Time: 03:08 sp3 08/23 02:32 Order name: Labs collected and sent; Complete Time: 03:08 sp3 Administered Medications: No medications were administered Disposition Summary: 08/23/22 05:45 Discharge Ordered Location: Home sp3 Condition: Stable sp3 Diagnosis - Crohn's disease, unspecified, without complications sp3 Followup: sp3 - With: Private Physician - When: Upon discharge from the Emergency Department - Reason: Further diagnostic work-up, Continuance of care Discharge Instructions: - Discharge Summary Sheet sp3 - Crohn's Disease sp3 Forms: - Medication Reconciliation Form sp3 - Thank You Letter sp3 - Antibiotic Education sp3 - Prescription Opioid Use sp3 Prescriptions: - Prednisone 20 mg Oral Tablet - take 2 tablets by ORAL route once daily for 5 days; 10 tablet; Refills: 0, sp3 Product Selection Permitted Signatures: Dispatcher [employer] EDMS Lei Jenkins MD MD sp3 Erin Sanchez RN RN ll3 Corrections: (The following items were deleted from the chart) 05:01 04:59 Abdomen 1 View+[email or web address] ordered. EDMS EDMS
[2022-08-23 13:39] VITALS: TEMP 98; O2SAT 98
[2022-08-23 13:44] VITALS: BP 152/76
--- NOTE | 2022-08-23 17:44 | RAD REPORT ---
EXAM DESCRIPTION: CT - Abdomen Pelvis W Contrast - 08/23/2022 6:46 am CLINICAL HISTORY: The patient is 61 years old and is Male; ABD PAIN . Right lower quadrant/flank shayy n since Monday. History of Crohn's disease TECHNIQUE: Axial computed tomography images of the abdomen and pelvis with intravenous contrast. S agittal and coronal reformatted images were created and reviewed. This CT exam was performed using one or more of the following dose reduction techniques: automated exposure control, adjustment of t he mA and/or kV according to patient size, and/or use of iterative reconstruction technique. Oral c ontrast was administered. COMPARISON: July 17, 2021. FINDINGS: Lung bases: Unremarkable. No mass. No consolidation. ABDOMEN: Liver: Fatty liver. Gallbladder and bile ducts: Unremarkable. No calcified stones. No ductal dilation. Pancreas: No findings to suggest acute pancreatitis. No mass visualized. No ductal dilation. Spleen: Unremarkable. No splenomegaly. Adrenals: Unremarkable. No mass. Kidneys and ureters: Left renal simple cyst, 2.7 cm. No follow-up imaging recommended. The kidneys are otherwise unremarkable. No hydronephrosis. Stomach and bowel: Colonic diverticulosis. No bowel dilatation or obstruction. No bowel wall thickening. PELVIS: Appendix: The visualized appendix is normal. No pericecal inflammation to suggest acute appendic itis. Bladder: Unremarkable. No mass. Reproductive: Unremarkable as visualized. ABDOMEN and PELVIS: Intraperitoneal space: Unremarkable. No free air. No significant fluid collection. Bones/joints: Multilevel degenerative facet arthropathy lower lumbar spine. No acute fracture vi sualized. No dislocation. Soft tissues: Unremarkable. Vasculature: Unremarkable. No abdominal aortic aneurysm. Lymph nodes: No pathologically enlarged lymph nodes. IMPRESSION: 1. No acute obstructive or inflammatory process identified. Normal appendix. 2. Fatty liver. 3. Colonic diverticulosis. 4. Additional non-emergent findings as above. Electronically signed by: Sindhu Paige MD 08/23/2022 5:37 AM CDT Due to temporary technical issues with the PACS/Fluency reporting system, reports are being signed by the in house radiologists without review as a courtesy to insure prompt reporting. The interpreting radiologist is fully responsible for the content of the report.
== END 2022-08-23 05:54 | disposition home or self-care (01) ==
LOC: ER 01:59
DX: K50.90 Crohn's disease, unspecified, without complications (principal); F17.220 Nicotine dependence, chewing tobacco, uncomplicated; Z88.1 Allergy status to other antibiotic agents; Z88.5 Allergy status to narcotic agent; Z88.8 Allergy status to other drugs, medicaments and biological substances; Z91.040 Latex allergy status; Z91.048 Other nonmedicinal substance allergy status
CPT/HCPCS: 85025; 81001; 36415; 85610; 83690; 80053; 74177; Q9967; 99284

== ENCOUNTER 2022-10-11 21:10 | Emergency (ER) | payer OTHER ==
--- OUTSIDE RECORDS SUMMARY | 2022-10-11 21:16 | XMS REPORT | Continuity of Care Document ---
:1960 Author Organization [facility] t Address [address] [place] [address] Care Team Providers Name Role Phone Unknown, Physician Primary Care Physician Unavailable Reese Jenkins Attending Clinician Unavailable Fernanda Lockwood Attending Clinician Unavailable WARD SCHULER Attending Clinician Unavailable Shania Biswas Attending Clinician Doctor Unassigned, [place] Attending Clinician Unavailable Ajibade_O_AH Attending Clinician Unavailable Ige-Odunuga_J_AH Attending Clinician Unavailable LUCHO ALFARO Attending Clinician Unavailable Lucho Alfaro NP Attending Clinician Ajibade_O_AH Admitting Clinician Unavailable Ige-Odunuga_J_AH Admitting Clinician Unavailable LUCHO ALFARO Admitting Clinician Unavailable Payers Payer Name Policy Type Policy Number Effective Date Expiration Date S herbie WELLCARE/WELLCA [id number] 2021 RE [place] 00:00:00 WellCare MCR C1 [id number] [facility] Wellcare C1 [id number] [facility] Wellcare C1 [id number] [facility] WELLCARE OF [place] [id number] 2019 - [place] 00:00:00 (MEDICARE REPLACEMENT/ADV ANTAGE - HMO) Problems Condition Condition Condition Status Onset Resolution Last Treating Co mments Source Name Details Category Date Date Treatment Clinician Date No known No known Disease Unive rs active active ity of problems problems [facility] Memory Memory Problem Active 2019-04-22 Lucio raiza impairment impairment 01:06:38 l (finding) (finding) Herm jessa Active Problem 04/22/2019 [facility] Neck pain Neck pain Problem Active 2019-04-22 Memoria (finding) (finding) 01:06:38 l Active Emblem Problem 04/22/2019 [facility] Paresthesi Problem Active 2019-04-22 M emoria a Paresthesi 01:06:38 l (finding) a Emblem (finding) Active Problem 04/22/2019 [facility] Simple Simple Problem Active 2019-04-22 Lucio raiza obesity obesity 01:06:38 l (disorder) (disorder) He rmann Active Problem 04/22/2019 [facility] Tremor Tremor Problem Active 2019-04-22 Lucio raiza (finding) (finding) 01:06:38 l Active Evan Problem [...] detachment detachment - CHI , right eye [facility] [id number] Acute Problem Common upper Spirit respirator - CHI y infection [facility] [id number] Gastro-eso Problem Co mmon phageal Spirit reflux - CHI disease [facility] esophagiti [facility] [id number] Abnormal Problem Comm on blood Spirit sugar - [facility] [id number] Essential Problem Comm on (primary) Spirit hypertensi - [facility]I on [facility] [id number] Chronic Problem Commo n pain [facility] syndrome - [facility] [id number] Hyperglyce Problem Com mon alex [facility] [id number] Generalize Problem Com mon d anxiety [facility] disorder - [facility] [id number] Diverticul Problem Co mmon osis Spirit [facility] [id number] Encounter Problem Com mon for Spirit counseling - [facility] [id number] BPH loc Problem Commo n w/o ur Spirit obs/LUTS 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 [id number] Nausea Problem Common [facility] [id number] Lumbar Problem Common sprain, Spirit initial - CHI encounter [facility] [id number] Wheezing Problem Commo n Spirit [facility] [id number] Hospital Problem Comm on discharge [facility] follow-up [facility] [id number] Acute Problem Common tonsilliti Spirit s, - CHI unspecifie [facility] [id number] Panic Problem Common disorder Spirit with - [facility]I agoraphobi [facility] [id number] Asymptomat Problem Co mmon ic Spirit microscopi - [facility]I c [facility] [id number] Constipati Problem Com mon on, Spirit unspecifie - CHI d constipati [facility] [id number] Carotid Problem Commo n artery Spirit disease, - CHI unspecifie [facility] laterality Medica l , Center unspecifie d type [id number] Right Problem Common epididymit Spirit is - [facility] [id number] Prostate Problem Com mon 48161 nodule [facility] - [facility] [id number] 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 [facility] 27746921 Pelvic Problem Common pain [facility] [id number] Other Problem Common chronic Spirit pancreatit - [facility] is [facility] [id number] Disc Problem Common disorder [facility] [id number] Perineal Problem Comm on pain [facility] [id number] Scrotum Problem Common pain [facility] [id number] BPH loc w Problem Com mon urin Spirit obs/LUTS - [facility] [id number] Chronic Problem Common prostatiti Spirit s [facility] Allergies, Adverse Reactions, Alerts Allergy [...] Drug Active rash Common allergy Spirit - [facility] prometha prometha Active hives Common zine zine [facility] sulfamet sulfamet Active rash Common hoxazole hoxazole Spirit / / - CHI trimetho trimetho [facility] 10957 Drug Active stops Common allergy breathing [facility] Social History Social Habit Start Date Stop Date Quantity Comments Source History of Tobacco Common Spirit - Use [facility] Exposure to 2022-05-02 2022-05-12 Not sure [facility] SARS-CoV-2 (event) 00:00:00 11:32:00 Sex Ass[birth year] At [birth year] [facility] 00:00:00 00:00:00 Smoking Status Start Date Stop Date Source Tobacco smoking consumption [place] Esteban angeles unknown Social History 2019-03-28 18:18:16 2019-03-28 18:18:16 [facility] Medications Ordered Filled Start Stop Current Ordering Indication Dosage Frequency Signature Comments Components Source Medication Medication Date Date Medication? Clinician (SIG) Name Name brimonidine 2021-06 Yes [id number] 1[drp] Q.5D Administer [facility] -timolol 2-08 1 drop Health ([place]) 00:00: into the 0.2-0.5 % 00 right eye ophthalmic in the solution morning and 1 drop in the evening. brimonidine 2021-06- No [id number] 1[drp] Q.5D Administer [place] -timolol 1-10 12-08 [...] 1 MG 00:00: 00 brimonidine 2021-06 Yes [id number] 1[drp] Q.5D Administer [place] -timolol 0-31 1 [facility] ([place]) 00:00: into the 0.2-0.5 % 00 right eye ophthalmic in the solution morning and 1 drop in the evening. brimonidine 2021-06- No [id number] 1[drp] Q.5D Administer [place] -timolol 0-31 12-08 [...] MG 00:00: 00 acyclovir 5 2019-0 Yes [id number] Apply to Univers % ointment 2-16 area(s) 5 ity of 00:00: (five) [place] 00 times Medical daily. Branch acyclovir 5 2019-0 Yes [id number] Apply to Univers % ointment 2-16 area(s) 5 ity of 00:00: (five) [place] 00 times Medical daily. Branch acyclovir 5 2020-0 Yes [id number] Apply to Univers % ointment 2-16 area(s) 5 ity of 00:00: (five) [place] 00 times Medical daily. Branch valsartan 2018-06 Yes 0 Memoria 40 mg oral 0-24 Refill(s) l tablet 19:12: Emblem 00 pantoprazol Yes 40 mg = 1 [...] ermann Bitartrate 00 10 MG Oral Tablet [Malcolm 10/325] Clonazepam 2018- Yes 2 mg = 1 Mem oria 2 MG Oral 4-24 tab, PO, l Tablet 19:00: BID, # 60 Jun n [Klonopin] 00 tab, 0 Refill(s) Aspirin 81 Aspirin 81 2017- Yes Esthela 1 tablet Common 4-12 [place] Spirit 00:00: - [facility] Aspirin 81 Aspirin 81 2017- No 1{table [...] puff Common Sulfate HFA Sulfate HFA 1-25 [place] [facility] 00:00: - [facility] Albuterol Albuterol 2014-06 No 1{puff} QID [...] Clonazepam Clonazepam Yes Esthela TAKE 1 Common [place] TABLET BY Spirit MOUTH - CHI TWICE A [facility] Carvedilol Carvedilol Yes Esthela take 1 Common [place] tablet by Spirit mouth - CHI twice a [facility] Famotidine Famotidine Yes Esthela 1 tablet Common [place] at bedtime [facility] Protonix Protonix Yes Esthela 1 tablet Co mmon [facility] Dicyclomine Dicyclomine Yes Esthela 1 tablet Common HCl HCl [facility] Ventolin Ventolin Yes Esthela 2 puffs Com mon HFA HFA [facility] Valsartan Valsartan Yes Esthela 1 tablet Common [place] [facility] - [facility] Hydrocodone Hydrocodone Yes Esthela (Schedule Common -Acetaminop -Acetaminop [place] II Drug) Spirit hen hen TK 1 T PO - CHI TID [facility] Pantoprazol Pantoprazol No Pantoprazo e Sodium 40 e Sodium 40 le Sodium MG MG 40 MG Carvedilol Carvedilol No Carvedilol 25 MG 25 MG 25 MG Dicyclomine Dicyclomine No 1{table QID Dicyclomin HCl 20 MG HCl 20 MG t} e HCl 20 MG Creon Creon No Creon 63359-27605 87180-81116 [address] UNIT UNIT 0 UNIT OneTouch OneTouch No OneTouch Ultra - Ultra - Ultra - Lactulose Lactulose No 15{ml} Lactulose 10 GM/15ML 10 GM/15ML 10 GM/15ML Carvedilol Carvedilol No BID Carvedilol 25 MG 25 MG 25 MG HYDROcodone HYDROcodone No HYDROcodon -Acetaminop -Acetaminop e-Acetamin hen 10-325 hen 10-325 ophen MG MG 10-325 MG OneTouch OneTouch No OneTouch Delica Plus Delica Plus Delica Esijtg97D - Xlgcks86A - Plus Qnircn76Q - Famotidine Famotidine No 1{table BID Famotidine [...] MG 25 MG Creon Creon No Creon 49870-73437 [phone] [phone] UNIT UNIT 0 UNIT Famotidine Famotidine No 1{table BID Famotidine 20 MG 20 MG t_at_be 20 MG dtime} Ventolin Ventolin No 2{puffs Ventolin HFA 108 (90 HFA 108 (90 } HFA 108 Base) Base) (90 Base) MCG/ACT MCG/ACT MCG/ACT Carvedilol Carvedilol No Carvedilol 25 MG 25 MG 25 MG OneTouch OneTouch No OneTouch Delica Plus Delica Plus Delica Jksoul44D - Xfnxso83R - Plus Noqltq38J - Dicyclomine Dicyclomine No 1{table QID Dicyclomin [...] HCl 20 MG Creon Creon No Creon 50119-21756 14613-17561 23146-224[address] UNIT UNIT 0 UNIT Carvedilol Carvedilol No BID Carvedilol 25 MG 25 MG 25 MG Carvedilol Carvedilol No Carvedilol 25 MG 25 MG 25 MG Lactulose Lactulose No 15{ml} Lactulose 10 GM/15ML 10 GM/15ML 10 GM/15ML OneTouch OneTouch No OneTouch Delica Plus Delica Plus Delica Pndlto22D - Sxkgpy54L - Plus Uirhtm03V - Protonix 40 Protonix 40 No 1{table [...] t} 40 MG Creon Creon No Creon 32440-20904 23360-40884 84[address]-66[address] UNIT UNIT 0 UNIT Carvedilol Carvedilol No [...] No OneTouch Delica Plus Delica Plus Delica Tcstzb65D - Uzneaq26D - Plus Zwbpmc50A - HYDROcodone HYDROcodone No HYDROcodon -Acetaminop -Acetaminop [...] No OneTouch Delica Plus Delica Plus Delica Cozshy39Z - Aeksna01L - Plus Csasri30U - Pantoprazol Pantoprazol No Pantoprazo e Sodium [...] - Ultra - Creon Creon No Creon 92112-47584 [phone] [address] UNIT UNIT 0 UNIT HYDROcodone HYDROcodone No HYDROcodon -Acetaminop -Acetaminop e-Acetamin hen 10-325 hen 10-325 ophen MG MG 10-325 MG Carvedilol Carvedilol No BID Carvedilol 25 MG 25 MG 25 MG Protonix 40 Protonix 40 No 1{table QD Protonix MG MG t} 40 MG OneTouch OneTouch No OneTouch Delica Plus Delica Plus Delica Peruwr32R - Gloojy36M - Plus Fplgcd61K - Pantoprazol Pantoprazol No Pantoprazo e Sodium [...] - Ultra - Creon Creon No Creon 45228-96628 67123-74827 16[address] UNIT UNIT 0 UNIT HYDROcodone HYDROcodone No HYDROcodon -Acetaminop -Acetaminop e-Acetamin hen 10-325 hen 10-325 ophen MG MG 10-325 MG Carvedilol Carvedilol No BID Carvedilol 25 MG 25 MG 25 MG Protonix 40 Protonix 40 No 1{table QD Protonix MG MG t} 40 MG OneTouch OneTouch No OneTouch Delica Plus Delica Plus Delica Dumhny70L - Auzfis12M - Plus Gdmtpu80P - Pantoprazol Pantoprazol No Pantoprazo e Sodium [...] - Ultra - Creon Creon No Creon 27587-22420 53778-57215 7[address] UNIT UNIT 0 UNIT HYDROcodone HYDROcodone No HYDROcodon -Acetaminop -Acetaminop e-Acetamin hen 10-325 hen 10-325 ophen MG MG 10-325 MG Carvedilol Carvedilol No BID Carvedilol 25 MG 25 MG 25 MG Protonix 40 Protonix 40 No 1{table QD Protonix MG MG t} 40 MG OneTouch OneTouch No OneTouch Delica Plus Delica Plus Delica Ruogvy56P - Gqwlfh15K - Plus Ewppvb22H - Pantoprazol Pantoprazol No Pantoprazo e Sodium [...] - Ultra - Creon Creon No Creon 68727-53670 74823-47775 [phone] UNIT UNIT 0 UNIT HYDROcodone HYDROcodone No [...] GM/15ML 10 GM/15ML Creon Creon No Creon 97271-31343 [phone] 616[address] UNIT UNIT 0 UNIT Dicyclomine Dicyclomine No 1{table QID Dicyclomin HCl 20 MG HCl 20 MG t} e HCl 20 MG Protonix 40 Protonix 40 No 1{table QD Protonix MG MG t} 40 MG OneTouch OneTouch No OneTouch Delica Plus Delica Plus Delica Nexlcw95A - Ueoknm93L - Plus Julgtl81U - Pantoprazol Pantoprazol No Pantoprazo e Sodium [...] GM/15ML 10 GM/15ML Creon Creon No Creon 54335-92969 [phone] [address] UNIT UNIT 0 UNIT Dicyclomine Dicyclomine No 1{table QID Dicyclomin HCl 20 MG HCl 20 MG t} e HCl 20 MG Protonix 40 Protonix 40 No 1{table QD Protonix MG MG t} 40 MG OneTouch OneTouch No OneTouch Delica Plus Delica Plus Delica Tklxmu92R - Jmntty15Y - Plus Rcvyxa13F - Creon Creon No Creon 11485-05584 [phone] 59[address] UNIT UNIT 0 UNIT clonazePAM clonazePAM No BID clonazePAM 1 MG 1 MG 1 MG Protonix 40 Protonix 40 No 1{table QD Protonix MG MG t} 40 MG Carvedilol Carvedilol No BID Carvedilol 25 MG 25 MG 25 MG Creon Creon 2020- No Esthela take by Common 12-23 [place] mouth 1 Spirit 00:00 capsule 3 - CHI :00 times a day [facility] Vital Signs Vital Name Observation Time Observation Value Comments Source height 2022-04-11 15:40:00 70 [in_i] Common S pirit - [facility] weight 2022-04-11 15:40:00 206.9 [lb_av] Common [facility] temperature 2022-04-11 15:40:00 97.6 [degF] Common S pirit [facility] bmi 2022-04-11 15:40:00 29.68 kg/m2 [facility] 2022-04-11 15:40:00 98 % [facility] respiratory rate 2022-04-11 15:40:00 18 /min Comm on [facility] blood pressure 2022-04-11 15:40:00 138 mm[Hg] Common [facility] - systolic [facility] blood pressure 2022-04-11 15:40:00 72 mm[Hg] Common [facility] - diastolic [facility] height 2022-02-09 13:50:00 70 [in_i] Common [facility] weight 2022-02-09 13:50:00 207 [lb_av] [facility] S pirit [facility] temperature 2022-02-09 13:50:00 97.9 [degF] Common S [facility] bmi 2022-02-09 13:50:00 29.7 kg/m2 [facility] S [facility] oximetry 2022-02-09 13:50:00 96 % [facility] respiratory rate 2022-02-09 13:50:00 18 /min Comm on [facility] blood pressure 2022-02-09 13:50:00 132 mm[Hg] Common Spirit - systolic [facility] blood pressure 2022-02-09 13:50:00 70 mm[Hg] Common Spirit - diastolic [facility] height 2021-12-07 09:20:00 70 [in_i] Common [facility] weight 2021-12-07 09:20:00 206.0 [lb_av] [facility] temperature 2021-12-07 09:20:00 98.2 [degF] Common S pirit [facility] bmi 2021-12-07 09:20:00 29.55 kg/m2 Common [facility] oximetry 2021-12-07 09:20:00 99 % Common [facility] respiratory rate 2021-12-07 09:20:00 18 /min Comm on [facility] blood pressure 2021-12-07 09:20:00 137 mm[Hg] Common [facility] - systolic [facility] blood pressure 2021-12-07 09:20:00 70 mm[Hg] Common [facility] - diastolic [facility] height 2021-02-23 14:30:00 70 [in_i] [facility] weight 2021-02-23 14:30:00 190.0 [lb_av] [facility] temperature 2021-02-23 14:30:00 98.3 [degF] [facility] bmi 2021-02-23 14:30:00 27.26 kg/m2 Common [facility] blood pressure 2021-02-23 14:30:00 138 mm[Hg] Common [facility] - systolic [facility] blood pressure 2021-02-23 14:30:00 74 mm[Hg] Common [facility] - diastolic [facility] Systolic blood 2020-12-28 20:04:00 155 mm[Hg] Univer sity of pressure [facility] Diastolic blood 2020-12-28 20:04:00 82 mm[Hg] Unive rsity of [facility] Heart rate 2020-12-28 20:04:00 61 /min Universi [facility] Body temperature 2020-12-28 20:04:00 36.67 Jing [facility] Respiratory rate 2020-12-28 20:04:00 16 /min [facility] Body height 2020-12-28 20:04:00 177.8 cm Universi ty [facility] Body weight 2020-12-28 20:04:00 86.183 kg Universi [facility] BMI 2020-12-28 20:04:00 27.26 kg/m2 [facility] [place] [facility] Oxygen saturation in 2020-12-28 20:04:00 97 /min University of Arterial blood by [facility] jose manuel Pulse oximetry Branch Systolic blood 2019-07-22 04:00:00 147 mm[Hg] Univer sity of pressure [facility] [place] [facility] Diastolic blood 2019-07-22 04:00:00 87 mm[Hg] Unive rsity of pressure [facility] [place] [facility] Heart rate 2019-07-22 04:00:00 54 /min Universi ty [facility] [place] [facility] Respiratory rate 2019-07-22 04:00:00 20 /min Univ [facility] [place] [facility] Oxygen saturation in 2019-07-22 04:00:00 99 /min University of Arterial blood by [facility] Pulse oximetry Branch Body temperature 2019-07-21 23:21:00 37 Jing Univ ersity [facility] [place] [facility] Body weight 2019-07-21 23:21:00 86.183 kg [facility] [place] [facility] BMI 2019-07-21 23:21:00 27.26 kg/m2 [facility] [place] [facility] Systolic blood 2019-07-22 04:00:00 147 mm[Hg] Univer sity of pressure [place] [facility] Diastolic blood 2019-07-22 04:00:00 87 mm[Hg] Unive rsity of pressure [facility] [place] [facility] Heart rate 2019-07-22 04:00:00 54 /min [facility] [place] [facility] Respiratory rate 2019-07-22 04:00:00 20 /min Univ ersity [facility] [place] [facility] Oxygen saturation in 2019-07-22 04:00:00 99 /min University of Arterial blood by [facility] Pulse oximetry Branch Body temperature 2019-07-21 23:21:00 37 Jing [facility] [place] [facility] Body weight 2019-07-21 23:21:00 86.183 kg [facility] [place] [facility] BMI 2019-07-21 23:21:00 27.26 kg/m2 [facility] [place] [facility] Systolic (mm Hg) 2019-03-28 18:17:00 Lucio burch Evan Diastolic (mm Hg) 2019-03-28 18:17:00 Mem orial Evan Heart Rate 2019-03-28 18:17:00 [facility] Respitory Rate 2019-03-28 18:17:00 Willori al Emblem Height 2019-03-28 18:17:00 172.72 cm Memorial Evan Weight 2019-03-28 18:17:00 Memorial Evan BMI Calculated 2019-03-28 18:17:00 Gricel Wright BMI Calculated 2018-09-26 18:51:00 Gricel Wright Weight 2018-09-26 18:51:00 Nona Fernándezann Height 2018-09-26 18:51:00 172.72 cm [facility] Heart Rate 2018-09-26 18:51:00 [facility] Evan Respitory Rate 2018-09-26 18:51:00 Gricel Morfinann Systolic (mm Hg) 2018-09-26 18:51:00 Lucio Fernándezann Diastolic (mm Hg) 2018-09-26 18:51:00 Mem oridavonte Gordon Procedures Procedure Date / Time Performed Performing Clinician Shana shonda NOTICE OF PRIVACY 2020-12-28 19:58:01 [facility] CONSENT/REFUSAL FOR 2020-12-28 19:57:10 Doctor Unassigned, No Un [facility] [place] DIAGNOSIS AND Name Medical Branch TREATMENT US SCROTUM AND 2019-07-22 03:08:48 Lucho Alfaro [facility] Medical Branch NOTICE OF PRIVACY 2019-07-21 23:12:14 [facility]igned, [facility] CONSENT/REFUSAL FOR 2019-07-21 23:07:41 Doctor Unassigned, No [facility] [place] DIAGNOSIS AND Name Medical Branch TREATMENT Encounters Start End Encounter Admission Attending Care Care Encounter Source Date/Time Date/Time Type Type Clinicians Facility Department ID 2022-09-12 Outpatient Jenkins, STLMLC [facility] [id number] Common 13:14:00 [facility]ly [facility], [facility] [address] [facility] 2022-08-26 Outpatient Jenkins, [facility]ML[facility] [id number] Common 08:40:00 [facility], [facility] [address] [facility] 2022-08-17 Outpatient Jenkins, STLMLC [facility] [id number] Common 14:47:00 [facility], [facility] [address] [facility] 2022-06-02 Outpatient [facility] [id number] [place] 08:30:[address] [place] [address] 2022-05-24 Outpatient Jenkins, STLMLC ST[facility] [id number] Common 13:55:01 [facility], [facility] 2022-05-23 Outpatient Jenkins, STLMLC STL[facility]C [id number] Common 10:20:01 [facility], [facility] 2022-05-04 Outpatient [facility] [id number] [place] 14:32:40 [id number] [facility] 2022-04-07 Outpatient Jenkins, STLMLC STL[facility]C [id number] Common 13:30:01 [facility], [facility] [address] [facility] 2022-04-04 Outpatient [facility] [id number] [place] 10:22:48 [id number] [facility] 2022-03-31 Outpatient [facility] [id number] [place] 12:03:45 [id number] [facility] 2022-03-30 Outpatient [facility] [id number] [place] 15:15:47 [id number] [facility] 2022-02-09 Outpatient Jenkins, STLMLC ST[facility] [id number] Common 13:48:01 Reese [facility] 2021-12-08 Outpatient Jenkins, STLMLC STL[facility]C [id number] Common 11:45:00 [facility], [facility] 2021-12-07 Outpatient Jenkins, STLMLC ST[facility]C [id number] Common 09:25:00 [facility], [facility] 2021-12-03 Outpatient Jenkins, STLMLC ST[facility]C [id number] Common 09:35:01 Reese [facility] 2021-06-30 Outpatient Jenkins, STLMLC STLMLC [id number] Common 13:05:56 Reese [address] [facility] 2021-06-30 Outpatient Jenkins, STLMLC ST[facility]C [id number] Common 12:47:29 Reese 89644 [facility] 2021-06-30 Outpatient Jenkins, STLMLC STL[facility]C [id number] Common 12:36:27 Reese 61967 [facility] 2021-06-30 Outpatient Jenkins, STLMLC ST[facility]C [id number] Common 12:35:26 Reese 73451 [facility] 2021-06-30 Outpatient Jenkins, STLMLC [facility] [id number] Common 12:28:53 Reese 75661 [facility] 2021-06-30 Outpatient Jenkins, STLMLC [facility] [id number] Common 12:26:11 Reese 91198 [facility] 2021-06-30 Outpatient Jenkins, STLMLC [facility] [id number] Common 12:12:23 Reese 277[address] [facility] 2021-06-30 Outpatient Jenkins, STLMLC [facility] [id number] Common 12:04:45 Reese [address] [facility] 2021-06-30 Outpatient Jenkins, STLMLC [facility] [id number] Common 11:55:15 Reese [address] [facility] 2021-06-30 Outpatient Jenkins, STLMLC [facility] [id number] Common 11:52:56 Reese 88167 [facility] 2021-06-30 Outpatient Jenkins, STLMLC [facility] [id number] Common 11:52:32 Reese [address]81 [facility] 2021-06-30 Outpatient Millender, STLMLC [facility] [id number] 11:02:50 Fernanda 47306 [facility] [facility] 2021[facility]-30 Outpatient Millender, [facility]ML[facility] [id number] Common 11:02:33 Fernanda [id number] [facility] 2022-06-16 2022-06-16 Outpatient CADENPARI, [facility] [id number] [place] 13:00:00 13:00:00 WARD Nam 2022-05-12 2022-05-12 Office Tom [facility] 6400 [id number] [place] 11:30:00 13:38:22 Visit Ward BROWN [id number] [facility] [id number] 2022-04-19 2022-04-19 (TEL) STLMLC STLMLC [id number] Co mmon 00:00:00 00:00:00 [facility] 2022-04-14 2022-04-14 [facility] [id number] [place] 10:30:00 12:17:23 [facility] 2022-04-11 2022-04-11 OFFICE STLMLC STLMLC [id number] Co mmon 00:00:00 00:00:00 VISIT [facility] PT - CHI LEVEL 4 [facility] 2022-04-04 2022-04-04 [facility] 6400 [id number] [place] 10:30:00 16:18:07 Visit Ward BROWN [id number] Health [id number] 2022-03-25 2022-03-25 [facility] [id number] [place] 11:00:00 11:00:00 [facility] 2022-03-24 2022-03-24 (TEL) STLMLC STLMLC [id number] Co mmon 00:00:00 00:00:00 [facility] 2022-03-23 2022-03-23 (TEL) STLMLC STLMLC [id number] Co mmon 00:00:00 00:00:00 [facility] 2022-03-23 2022-03-23 (TEL) STLMLC STLMLC [id number] Co mmon 00:00:00 00:00:00 [facility] 2022-03-23 2022-03-23 (TEL) STLMLC STLMLC [id number] Co mmon 00:00:00 00:00:00 [facility] 2022-02-09 2022-02-09 OFFICE STLMLC STLMLC [id number] Co mmon 00:00:00 00:00:00 VISIT [facility] PT - CHI LEVEL 4 [facility] 2021-12-07 2021-12-07 OFFICE STLMLC STLMLC [id number] Co mmon 00:00:00 00:00:00 VISIT [facility] PT - CHI LEVEL 4 [facility] 2021-03-24 2021-03-24 (TEL) STLMLC STLMLC [id number] Co mmon 00:00:00 00:00:00 [facility] 2021-02-23 2021-02-23 (TELEAUD) STLMLC STLMLC [id number] Common 00:00:00 00:00:00 AUDIO [facility] TELEMEDICI - CHI NE [facility] 2021-02-22 2021-02-22 (TEL) STLMLC STLMLC [id number] Co mmon 00:00:00 00:00:00 [facility] 2020-12-28 2020-12-28 Emergency Evelin, [facility] [id number] Univers 15:10:00 16:55:00 Shania Layton [id number] i ty [facility] [id number] [facility] [id number] [facility] 084 Branch 2020-12-28 2020-12-28 Emergency X [facility] ERT [id number] Univers 14:57:00 14:57:[address] [facility] 2020-12-28 2020-12-28 Orders Doctor POPPY [id number] Univers 00:00:00 00:00:00 Only Unassigned, RAJIV [id number] ity of [facility] [id number] [facility] [id number] [facility] 009 Branch 2020-12-24 2020-12-24 Outpatient STLMLC STLMLC [id number] Common 00:00:00 00:00:00 [facility] 2020-12-17 2020-12-17 Outpatient STLMLC STLMLC [id number] Common 00:00:00 00:00:00 [facility] 2020-12-04 2020-12-04 Outpatient STLMLC STLMLC [id number] Common 00:00:00 00:00:00 [facility] 2020-10-22 2020-10-22 Outpatient STLMLC STLMLC [id number] Common 00:00:00 00:00:00 [facility] 2020-10-15 2020-10-15 Outpatient STLMLC STLMLC [id number] Common 00:00:00 00:00:00 [facility] 2020-10-07 2020-10-07 Outpatient STLMLC STLMLC [id number] Common 00:00:00 00:00:00 [facility] 2020-09-07 2020-09-07 Outpatient STLMLC STLMLC [id number] Common 00:00:00 00:00:00 [facility] 2020-08-06 2020-08-06 Outpatient STLMLC STLMLC [id number] Common 00:00:00 00:00:00 [facility] 2020-07-09 2020-07-09 Outpatient STLMLC STLMLC [id number] Common 00:00:00 00:00:00 [facility] 2020-06-09 2020-06-09 Outpatient STLMLC STLMLC [id number] Common 00:00:00 00:00:00 [facility] 2020-05-21 2020-05-21 Outpatient STLMLC STLMLC [id number] Common 00:00:00 00:00:00 [facility] 2020-05-14 2020-05-14 Outpatient STLMLC STLMLC [id number] Common 00:00:00 00:00:00 [facility] 2020-04-28 2020-04-28 Outpatient STLMLC STLMLC [id number] Common 00:00:00 00:00:00 [facility] 2020-04-16 2020-04-16 Outpatient STLMLC STLMLC [id number] Common 00:00:00 00:00:00 [facility] 2020-03-18 2020-03-18 Outpatient STLMLC STLMLC [id number] Common 00:00:00 00:00:00 [facility] 2020-03-18 2020-03-18 Outpatient STLMLC STLMLC [id number] Common 00:00:00 00:00:00 [facility] 2020-03-10 2020-03-10 Outpatient STLMLC STLMLC [id number] Common 00:00:00 00:00:00 [facility] 2020-01-30 2020-01-30 Outpatient Ajibade_O_A VFP VFP [id number] [facility] 04:28:00 04:28:00 H [id number] Family Practic e 2020-01-30 2020-01-30 Outpatient Ajibade_O_A VFP VFP [id number] [facility] 04:28:00 04:28:00 H [id number] Family Practic e 2020-01-30 2020-01-30 Outpatient Ajibade_O_A VFP VFP [id number] [place] 04:28:00 04:28:00 H [id number] Family Practic e 2020-01-30 2020-01-30 Outpatient Ajibade_O_A VFP VFP [id number] [facility] 04:28:00 04:28:00 H [id number] Family Practic e 2019-07-24 2019-07-24 Outpatient Ige-Odunuga VFP VFP [id number] [facility] 07:17:00 07:17:00 _J_AH [id number] Family Practic e 2019-07-24 2019-07-24 Outpatient Ige-Odunuga VFP VFP [id number] [facility] 07:17:00 07:17:00 _J_AH [id number] Family Practic e 2019-07-21 2019-07-21 Emergency X [facility] ERT [id number] Univers 18:06:23 22:09:00 LUCHO catherine [facility] 2019-07-21 2019-07-21 Emergency [facility] [id number] [facility] 18:06:23 22:09:00 Lucho Layton [id number] itflo [facility] [id number] [facility] [id number] [address] 2019-07-21 2019-07-21 Emergency [facility] [id number] 18:06:23 22:09:00 Lucho Layton [id number] [place] [id number] [place] [id number] 2019-07-15 2019-07-15 Out[facility] [id number] Common 15:01:00 15:01:00 t Specialty/U Sp jose alberto Specialty rology - CHI /[facility]rology Clinic [facility] 2019-07-09 2019-07-09 Out[facility] [id number] Common 16:46:00 16:46:00 t Specialty/U Sp jose alberto Specialty rology - CHI /[facility] 2019-07-08 2019-07-08 Outpatient [facility] [id number] Common 14:51:00 14:51:00 t Specialty/U Sp jose alberto Specialty rology - CHI /[facility] 2019-07-08 2019-07-08 Outpatient [facility] [id number] Common 08:00:00 08:00:00 t Specialty/U Sp jose alberto Specialty rology - CHI /[facility] 2019-07-04 2019-07-04 Outpatient [facility] [id number] Common 13:00:00 13:00:00 t Specialty/U Sp jose alberto Specialty rology - CHI /[facility]rology [facility] 2019-07-02 2019-07-02 Outpatient [facility] [id number] Common 14:32:00 14:32:[address] [facility] [address] [facility] 2019-06-27 2019-06-27 Outpatient [facility] [id number] Common 14:40:00 14:40:00 [facility] 2019-06-03 2019-06-03 Outpatient [facility] [id number] Common 11:17:00 11:17:00 t [facility] 2019-04-18 2019-04-20 Outside nullFlavo MNA [id number] Memoria 18:37:59 05:59:59 Medical r Neurology 01 l Records Ashlee Gordon 2019-04-11 2019-04-11 Ambulatory nullFlavo MNA [id number] Memoria 21:30:00 21:30:00 Pre-Reg r Neurology 03 l Ashlee Gordon 2019-04-09 2019-04-09 Outpatient [facility] [id number] Common 15:20:00 15:20:[address] [facility] 2019-04-01 2019-04-03 Outside nullFlavo MNA [id number] Memoria 13:58:44 04:59:59 Medical r Neurology 00 l Records Ashlee Evan 2019-03-28 2019-03-29 Outpatient nullFlavo MNA [id number] Memoria 18:00:00 04:59:59 r Neurology 02 l [place] Fern[place]dez[place] 2019-02-19 2019-02-19 Outpatient [facility] [id number] Common 14:40:00 14:40:[address] [facility] [address] [facility] 2018-12-11 2018-12-11 Outpatient [facility] [id number] Common 11:21:00 11:21:[address] [facility] [address] [facility] 2018-11-19 2018-11-19 Outpatient [facility] [id number] Common 14:40:00 14:40:[address] [facility] [address] [facility] 2018-10-31 2018-10-31 Ambulatory nullFlavo MNA [id number] Memoria 18:45:00 18:45:00 Pre-Reg r Neurology 01 l [place] Fernándezann 2018-09-26 2018-09-27 Outpatient nullFlavo MNA [id number] Memoria 18:30:00 04:59:59 r Neurology 00 l [place] 2018-09-17 2018-09-17 Outpatient [facility] [id number] Common 16:00:00 16:00:[address] [facility] 2018-08-02 2018-08-02 Outpatient [facility] [id number] Common 16:07:00 16:07:[address] [facility] 2018-08-02 2018-08-02 Outpatient [facility] [id number] Common 16:05:00 16:05:[address] [facility] 2018-06-18 2018-06-18 Outpatient [facility] [id number] Common 16:00:00 16:00:[address] [facility] 2018-01-18 2018-01-18 Outpatient [facility] [id number] Common 14:00:00 14:00:[address] [facility] 2017-09-19 2017-09-19 Outpatient [facility] [id number] Common 09:33:00 09:33:[address] [facility] 2017-09-14 2017-09-14 Outpatient [facility] [id number] Common 13:00:00 13:00:[address] [facility] 2017-09-12 2017-09-12 Outpatient [facility] [id number] Common 11:05:00 11:05:[address] [facility] 2017-08-29 2017-08-29 Outpatient [facility] [id number] Common 15:30:00 15:30:00 t [facility] it Road [facility] Results Test Description Test Time Test Comments Results Result [facility] e Comments US SCROTUM AND 2019-07-06 No evidence for Univ ersity of CONTENTS 7 testicular torsion. [facility] 03:19:48 No definite Branch evidence for epididymo-orchitis. RL: [id number] AFC: [id number] Ordering physician: LUCHO ALFARO INDICATION: Scrotal pain [...] - 07/21/2019 9:21 PM CSTOrdering physician: LUCHO Venegas DREVERINDICATION: Scrotal painCOMPARISON: NoneTECHNIQUE: Grayscale and Doppler images [...] torsion.No definite evidence for epididymo-orchitis. RL: [id number]: [id number] signed by Kristen Valdez MD, PhD at 07/21/2019 9:19 PM
[2022-10-11 22:10] LABS: Hematocrit 42.8 % (39.6-49.0); Lymphocytes % 32.4 % (15.3-44.8); MCV 88.9 fL (80-100); MPV 7.7 fL (7.6-11.3); RBC Red Blood Cell Count 4.82 M/uL (4.33-5.43)
[2022-10-11 22:11] LABS: Protime INR 1.02
[2022-10-11] MEDS ORDERED: NA CHLORIDE 0.9% 500 ML ONE (22:17)
--- NOTE | 2022-10-11 22:26 | RAD REPORT ---
EXAM DESCRIPTION: Nohemy Single View10/11/2022 10:15 pm CLINICAL HISTORY: Chest pain COMPARISON: 2021 FINDINGS: Calcified left lung granulomas. Calcified left hilar lymph nodes. The lungs appear clear of acute infiltrate. The heart is normal size IMPRESSION: No acute abnormalities displayed
[2022-10-11 22:32] LABS: ALT/SGPT 25 U/L (16-61); AST/SGOT 16 U/L (15-37); Albumin 3.5 g/dL (3.4-5.0); Alkaline Phosphatase 62 U/L (45-117); BUN Blood Urea Nitrogen 16 mg/dL (7-18); Bicarbonate 29 mEq/L (21-32); Bilirubin Total 0.4 mg/dL (0.2-1.0); Creatine Phosphokinase 102 U/L (39-308); Glomerular Filtration Rate 89 ml/min (=/>90); Glucose Level 124 mg/dL (74-106); Lipase 60 U/L (13-75); NT PRO-BNP 52 pg/mL (<125); Potassium 4.2 mEq/L (3.5-5.1); Protein, Total 7.1 g/dL (6.4-8.2); Sodium Level 138 mEq/L (136-145); Troponin High Sensitivity 7.9 pg/mL (<58.9)
[2022-10-11 22:33] LABS: Specific Gravity < 1.005 (1.005-1.030); Urine Bilirubin NEGATIVE (Negative); Urine Blood Negative (Negative); Urine Clarity Clear (Clear); Urine Color Colorless (Yellow); Urine Glucose NEGATIVE (Negative); Urine Protein NEGATIVE (Negative); Urine Urobilinogen Normal (Normal); Urine pH 6.5 (5.0-7.0)
[2022-10-11 22:34] LABS: Bilirubin Direct < 0.1 mg/dL (0-0.2)
[2022-10-11] MEDS ORDERED: ASPIRIN EC 81 MG TAB PO ONE (22:54)
--- NOTE | 2022-10-11 23:36 | EDPHYS ---
Physician Documentation [facility] Name: Alfredo Escobar Age: 61 yrs Sex: Male : 1960 Arrival Date: 10/11/2022 Time: 21:10 Bed 5 Private MD: ED Physician Pal Ferreira HPI: 10/11 22:02 This 61 yrs old Male presents to ER via Ambulatory with complaints of Chest mack Pain. 22:02 The patient or guardian reports chest pain that is located primarily in the right mack nipple and left nipple. Onset: 2 day(s) ago. The pain does not radiate. Associated signs and symptoms: The patient has no apparent associated signs or symptoms. The chest pain is described as nipple pain. Modifying factors: The symptoms are alleviated by nothing. the symptoms are aggravated by nothing. Severity of pain: At its worst the pain was mild in the emergency department the pain is unchanged. Historical: - Allergies: 21:25 Bactrim; as6 21:25 Iodine; as6 21:25 Keflex; as6 21:25 Latex, Natural Rubber; as6 21:25 Levaquin; as6 21:25 promethazine HCl; as6 21:25 Toradol; as6 - PMHx: 21:25 Anxiety; Arthritis; Crohn's; GERD; Pancreatitis; PTSD; as6 - PSHx: 21:25 eye; as6 - Immunization history:: Client reports having NOT received the Covid vaccine. - Social history:: Smoking status: Patient denies any tobacco usage or history of. ROS: 22:03 Constitutional: Negative for fever, chills, and weight loss, Eyes: Negative for injury, mack pain, redness, and discharge, ENT: Negative for injury, pain, and discharge, Neck: Negative for injury, pain, and swelling, Respiratory: Negative for shortness of breath, cough, wheezing, and pleuritic chest pain, Abdomen/GI: Negative for abdominal pain, nausea, vomiting, diarrhea, and constipation, Back: Negative for injury and pain, : Negative for injury, bleeding, discharge, and swelling, MS/Extremity: Negative for injury and deformity, Skin: Negative for injury, rash, and discoloration, Neuro: Negative for headache, weakness, numbness, tingling, and seizure, Psych: Negative for depression, anxiety, suicide ideation, homicidal ideation, and hallucinations, Allergy/Immunology: Negative for hives, rash, and allergies, Endocrine: Negative for neck swelling, polydipsia, polyuria, polyphagia, and marked weight changes, Hematologic/Lymphatic: Negative for swollen nodes, abnormal bleeding, and unusual bruising. 22:03 Cardiovascular: Positive for chest pain, of the right nipple and left nipple. Exam: 22:06 Constitutional: This is a well developed, well nourished patient who is awake, alert, mack and in no acute distress. Head/Face: Normocephalic, atraumatic. Eyes: Pupils equal round and reactive to light, extra-ocular motions intact. Lids and lashes normal. Conjunctiva and sclera are non-icteric and not injected. Cornea within normal limits. Periorbital areas with no swelling, redness, or edema. ENT: Nares patent. No nasal discharge, no septal abnormalities noted. Tympanic membranes are normal and external auditory canals are clear. Oropharynx with no redness, swelling, or masses, exudates, or evidence of obstruction, uvula midline. Mucous membranes moist. Neck: Trachea midline, no thyromegaly or masses palpated, and no cervical lymphadenopathy. Supple, full range of motion without nuchal rigidity, or vertebral point tenderness. No Meningismus. Chest/axilla: Normal chest wall appearance and motion. Nontender with no deformity. No lesions are appreciated. Cardiovascular: Regular rate and rhythm with a normal S1 and S2. No gallops, murmurs, or rubs. Normal PMI, no JVD. No pulse deficits. Respiratory: Lungs have equal breath sounds bilaterally, clear to auscultation and percussion. No rales, rhonchi or wheezes noted. No increased work of breathing, no retractions or nasal flaring. Abdomen/GI: Soft, non-tender, with normal bowel sounds. No distension or tympany. No guarding or rebound. No evidence of tenderness throughout. Back: No spinal tenderness. No costovertebral tenderness. Full range of motion. Male : Normal genitalia with no discharge or lesions. Skin: Warm, dry with normal turgor. Normal color with no rashes, no lesions, and no evidence of cellulitis. MS/ Extremity: Pulses equal, no cyanosis. Neurovascular intact. Full, normal range of motion. Neuro: Awake and alert, GCS 15, oriented to person, place, time, and situation. Cranial nerves II-XII grossly intact. Motor strength 5/5 in all extremities. Sensory grossly intact. Cerebellar exam normal. Normal gait. Psych: Awake, alert, with orientation to person, place and time. Behavior, mood, and affect are within normal limits. 22:06 Musculoskeletal/extremity: DVT Exam: No signs of deep vein thrombosis. no pain, no swelling, no tenderness, negative Homans' sign noted on exam, no appreciated bluish discoloration, no erythema, no increased warmth. 22:34 ECG was reviewed by the Attending Physician. mack Vital Signs: 21:20 BP 165 / 105; Pulse 61; Resp 18 S; Temp 98.2(TE); Pulse Ox 99% on R/A; Weight 99.79 kg as6 (R); Height 5 ft. 10 in. (R); Pain 6/10; 22:27 BP 135 / 81; Pulse 57; Resp 17; Pulse Ox 97% ; ll3 23:30 BP 143 / 78; Pulse 59; Resp 17; Temp 99; ll3 21:20 Body Mass Index 31.57 (99.79 kg, 177.8 cm) as6 21:20 Pain Scale: Adult as6 NIH Stroke Scale Scores: 23:47 NIHSS Score: 0 mack MDM: 21:34 Patient medically screened. mack 22:35 Differential diagnosis: abnormal EKG, acute myocardial infarction, acute pericarditis, mack anxiety, coronary artery disease chest wall pain, congestive heart failure cholecystitis, Cholelithiasis costochondritis, esophagitis, gastritis, pancreatitis, pericarditis, pleurisy, pneumonia, pulmonary embolus, stable angina, unstable angina. HEART Score: History: Slightly Suspicious (0), ECG: Normal (0), Age: > 45 and < 65 years (1), Risk Factors: 1 or 2 risk factors (1), [+ Family HX] Troponin: < or = 1 x Normal Limit (0). The patient was given aspirin in the Emergency Department. RUPAL Risk Score: TOTAL SCORE = 0. Data reviewed: vital signs, nurses notes, lab test result(s), EKG, radiologic studies, plain films. Consideration of Admission/Observation Escalation of care including admission/observation considered. Independent interpretation of the following test(s) in the Emergency Department EKG: See my EKG interpretation above. Test considered but Not performed: CT: no ct chest. Care significantly affected by the following chronic conditions: anxiety, oa, crohns, gerd, pancreatitis. 10/11 21:36 Order name: Basic Metabolic Panel; Complete Time: 22:38 [facility] 10/11 21:36 Order name: CBC with Diff; Complete Time: 22:38 [facility] 10/11 21:36 Order name: LFT's; Complete Time: 22:38 [facility] 10/11 21:36 Order name: Magnesium; Complete Time: 22:38 [facility] 10/11 21:36 Order name: NT PRO-BNP; Complete Time: 22:38 [facility] 10/11 21:36 Order name: PT-INR; Complete Time: :38 [facility] 10/11 21:36 Order name: Troponin HS; Complete Time: 22:38 [facility] 10/11 21:36 Order name: Lipase; Complete Time: 22:38 [facility] 10/11 21:36 Order name: Urinalysis w/ reflexes; Complete Time: :38 [facility] 10/11 22:19 Order name: Creatine Phosphokinase; Complete Time: 22:38 [facility] 10/11 21:36 Order name: XRAY Chest (1 view); Complete Time: 22:38 [facility] 10/11 21:36 Order name: EKG; Complete Time: 21:36 [facility] 10/11 21:36 Order name: Cardiac monitoring; Complete Time: 22:05 [facility] 10/11 21:36 Order name: EKG - Nurse/Tech; Complete Time: 22:18 [facility] 10/11 21:36 Order name: IV Saline Lock; Complete Time: 22:05 [facility] 10/11 21:36 Order name: Labs collected and sent; Complete Time: 22:05 [facility] 10/11 21:36 Order name: O2 Per Protocol; Complete Time: 22:05 [facility] 10/11 21:36 Order name: O2 Sat Monitoring; Complete Time: 22:05 [facility] EC:34 Rate is 55 beats/min. Rhythm is regular. QRS Edmondson is Normal. [place] interval is normal. QRS mack interval is normal. QT interval is normal. No Q waves. T waves are Normal. No ST changes noted. Clinical impression: Normal ECG and No evidence of ischemia. Interpreted by me. Reviewed by me. Administered Medications: 22:18 Drug: NS 0.9% IV 500 ml Route: IV; Rate: bolus; Site: right antecubital; ll3 22:47 Follow up: IV Status: Completed infusion ll3 22:51 Drug: Aspirin PO Chewable Tablet 81 mg Route: PO; kl 23:53 Follow up: Response: No adverse reaction ll3 Disposition Summary: 10/11/22 23:35 Discharge Ordered Location: Home mack Problem: new mack Symptoms: have improved mack Condition: Stable mack Diagnosis - Chest pain, unspecified mack - Essential (primary) hypertension mack Followup: mack - With: Private Physician - When: 2 - 3 days - Reason: Recheck today's complaints, Continuance of care, Re-evaluation by your physician Followup: mack - With: - When: 2 - 3 days - Reason: Recheck today's complaints, Re-evaluation by your physician Discharge Instructions: - Discharge Summary Sheet mack - Nonspecific Chest Pain, Adult mack - Hypertension, Adult mack - Chest Wall Pain, Sxad-et-Tcdu mack - Nonspecific Chest Pain, Adult, Ysob-tp-Lytl mack - Hypertension, Adult, Mthv-js-Tvjq mack - How to Take Your Blood Pressure, Odxr-ol-Pcup mack - Aspirin and Your Heart mack - Managing Your Hypertension mack Forms: - Medication Reconciliation Form mack - Thank You Letter mack - Antibiotic Education mack - Prescription Opioid Use mack Prescriptions: - Norvasc 5 mg Oral Tablet - take 1 tablet by ORAL route once daily; 20 tablet; Refills: 0, Product mack Selection Permitted NIH Stroke Scale - NIH Stroke Score Date: 10/11/2022 Time: 23:47 Total Score = 0 10. Dysarthria (speech clarity - read or repeat words) - 0(Normal) 11. Extinction and Inattention (visual/tactile/auditory/spatial/personal) - 0(No abnormality) 1a. Level of Consciousness (LOC) - 0(Alert) 1b. Level of Consciousness (LOC) (Month \T\ Age) - 0(Both) 1c. LOC Commands (Open \T\ Closes Eyes/Motors And Generators Inspector) - 0(Both) 2. Best Gaze (Lateral Gaze Paresis) - 0(Normal) 3. Visual Field Loss - 0(No visual loss) 4. Facial Palsy - 0(Normal) 5a. Left Arm: Motor (10-second hold) - 0(No drift) 5b. Right Arm: Motor (10-second hold) - 0(No drift) 6a. Left Leg: Motor (5-second hold - always test supine) - 0(No drift) 6b. Right Leg: Motor (5-second hold - always test supine) - 0(No drift) 7. Limb Ataxia (finger/nose \T\ heel/farooq - test with eyes open) - 0(Absent) 8. Sensory Loss (pinprick arms/legs/face) - 0(Normal) 9. Best Language: Aphasia (description/naming/reading) - 0(No aphasia) Initials: mack Signatures: Dispatcher [employer] EDTaylor Doss RN Pal Ayala MD MD cha Slawson, Ashby, RN RN as6 Erin Sanchez RN RN ll3 Corrections: (The following items were deleted from the chart) 22:19 22:02 CREATINE PHOSPHOKINASE+C.LAB.BRZ ordered. [facility] EDTN
--- NOTE | 2022-10-11 23:36 | ER ---
Nurse's Notes [facility] Name: Alfredo Escobar Age: 61 yrs Sex: Male : 1960 Arrival Date: 10/11/2022 Time: 21:10 Bed 5 Private MD: Diagnosis: Chest pain, unspecified;Essential (primary) hypertension Presentation: 10/11 21:20 Chief complaint: Patient states: "I think I am having complications from cellulitis. I as6 was here several weeks ago. I think it's the medicine and the CT that caused the chest pain. I have just been dealing with it but I can't see my PCP till November". Coronavirus screen: At this time, the client does not indicate any symptoms associated with coronavirus-19. Ebola Screen: No symptoms or risks identified at this time. Initial Sepsis Screen: Does the patient meet any 2 criteria? No. Patient's initial sepsis screen is negative. Does the patient have a suspected source of infection? No. Patient's initial sepsis screen is negative. Risk Assessment: Do you want to hurt yourself or someone else? Patient reports no desire to harm self or others. Onset of symptoms was September 2022. 21:20 Method Of Arrival: Ambulatory as6 21:20 Acuity: BUCKY 3 as6 Triage Assessment: 21:25 General: Appears in no apparent distress. comfortable, Behavior is calm, cooperative. as6 Pain: Complains of pain in chest. Cardiovascular: Reports chest pain. Historical: - Allergies: 21:25 Bactrim; as6 21:25 Iodine; as6 21:25 Keflex; as6 21:25 Latex, Natural Rubber; as6 21:25 Levaquin; as6 21:25 promethazine HCl; as6 21:25 Toradol; as6 - PMHx: 21:25 Anxiety; Arthritis; Crohn's; GERD; Pancreatitis; PTSD; as6 - PSHx: 21:25 eye; as6 - Immunization history:: Client reports having NOT received the Covid vaccine. - Social history:: Smoking status: Patient denies any tobacco usage or history of. Screenin:40 [facility] ED Fall Risk Assessment (Adult) History of falling in the last 3 months, ll3 including since admission No falls in past 3 months (0 pts) Confusion or Disorientation No (0 pts) Intoxicated or Sedated No (0 pts) Impaired Gait No (0 pts) Mobility Assist Device Used No (0 pt) Altered Elimination No (0 pt) Score/Fall Risk Level 0 - 2 = Low Risk Maintained a safe environment. Abuse screen: Denies threats or abuse. Nutritional screening: No deficits noted. Tuberculosis screening: No symptoms or risk factors identified. Assessment: 21:40 General: Appears in no apparent distress. uncomfortable, Behavior is calm, cooperative, ll3 appropriate for age. Pain: Complains of pain in right nipple and left nipple Pain radiates to right lateral anterior chest and left lateral anterior chest Pain began SINC HIS CT IN AUGUST. Vital Signs: 21:20 BP 165 / 105; Pulse 61; Resp 18 S; Temp 98.2(TE); Pulse Ox 99% on R/A; Weight 99.79 kg as6 (R); Height 5 ft. 10 in. (R); Pain 6/10; 22:27 BP 135 / 81; Pulse 57; Resp 17; Pulse Ox 97% ; ll3 23:30 BP 143 / 78; Pulse 59; Resp 17; Temp 99; ll3 21:20 Body Mass Index 31.57 (99.79 kg, 177.8 cm) as6 21:20 Pain Scale: Adult as6 NIH Stroke Scale Scores: 23:47 NIHSS Score: 0 mack ED Course: 21:16 Patient arrived in ED. ag3 21:25 Triage completed. as6 21:25 Arm band placed on. as6 21:34 Pal Ferreira MD is Attending Physician. mack 21:40 Patient has correct armband on for positive identification. Placed in gown. Bed in low ll3 position. Call light in reach. Side rails up X 1. Client placed on continuous cardiac and pulse oximetry monitoring. NIBP monitoring applied. child monitor on. Warm blanket given. 21:52 Inserted saline lock: 20 gauge in right antecubital area, using aseptic technique. ll3 Blood collected. 22:05 Basic Metabolic Panel Sent. ll3 22:05 CBC with Diff Sent. ll3 22:05 LFT's Sent. ll3 22:05 Magnesium Sent. ll3 22:05 NT PRO-BNP Sent. ll3 22:05 PT-INR Sent. ll3 22:05 Troponin HS Sent. ll3 22:05 Lipase Sent. ll3 22:17 XRAY Chest (1 view) In Process Unspecified. EDMS 22:18 Urinalysis w/ reflexes Sent. ll3 22:18 Lipase Sent. ll3 23:35 Janes Woo MD is Referral Physician. [facility] [place] 23:53 No provider procedures requiring assistance completed. IV discontinued, intact, ll3 bleeding controlled, No redness/swelling at site. Pressure dressing applied. Patient maintains SpO2 saturation greater than 95% on room air. Administered Medications: 22:18 Drug: NS 0.9% IV 500 ml Route: IV; Rate: bolus; Site: right antecubital; ll3 22:47 Follow up: IV Status: Completed infusion ll3 22:51 Drug: Aspirin PO Chewable Tablet 81 mg Route: PO; 23:53 Follow up: Response: No adverse reaction ll3 Medication: 21:40 VIS not applicable for this client. ll3 Outcome: 23:35 Discharge ordered by . mack 23:53 Discharged to home ambulatory, with family. ll3 23:53 Condition: improved 23:53 Discharge instructions given to patient, Instructed on discharge instructions, follow up and referral plans. medication usage, Demonstrated understanding of instructions, follow-up care, medications, Prescriptions given X 1. 23:54 Patient left the ED. ll3 NIH Stroke Scale - NIH Stroke Score Date: 10/11/2022 Time: 23:47 Total Score = 0 10. Dysarthria (speech clarity - read or repeat words) - 0(Normal) 11. Extinction and Inattention (visual/tactile/auditory/spatial/personal) - 0(No abnormality) 1a. Level of Consciousness (LOC) - 0(Alert) 1b. Level of Consciousness (LOC) (Month \\T\\ Age) - 0(Both) 1c. LOC Commands (Open \\T\\ Closes Eyes/Advertising Sales Agent) - 0(Both) 2. Best Gaze (Lateral Gaze Paresis) - 0(Normal) 3. Visual Field Loss - 0(No visual loss) 4. Facial Palsy - 0(Normal) 5a. Left Arm: Motor (10-second hold) - 0(No drift) 5b. Right Arm: Motor (10-second hold) - 0(No drift) 6a. Left Leg: Motor (5-second hold - always test supine) - 0(No drift) 6b. Right Leg: Motor (5-second hold - always test supine) - 0(No drift) 7. Limb Ataxia (finger/nose \\T\\ heel/farooq - test with eyes open) - 0(Absent) 8. Sensory Loss (pinprick arms/legs/face) - 0(Normal) 9. Best Language: Aphasia (description/naming/reading) - 0(No aphasia) Initials: mack Signatures: Dispatcher [employer] EDMS Taylor Gamez RN RN kl Anderson, Corey, MD MD cha Gomez, Alice 3 Ashkan Rivera RN RN as6 Erin Sanchez RN RN ll3 Corrections: (The following items were deleted from the chart) 22:19 22:04 CREATINE PHOSPHOKINASE+C.LAB.BRZ drawn and sent. ll3 EDMS 22:19 22:18 CREATINE PHOSPHOKINASE+C.LAB.BRZ drawn and sent. 3 EDMS
[2022-10-12 00:55] VITALS: O2SAT 97
[2022-10-12 01:01] VITALS: BP 143/78; TEMP 99
--- NOTE | 2022-10-12 15:58 | EKG ---
Test Date: 2022-10-11 Test Time: 22:22:36 Faculty Dean: GREG MEASUREMENT RESULTS: Intervals: Rate: 55 ID: [id number] QRSD: 90 QT: 410 QTc: 392 [place]: P: 43 ID: [id number] QRS: -6 T: 4 INTERPRETIVE STATEMENTS: Sinus bradycardia Otherwise normal ECG Compared to ECG 08/29/2022 21:27:14 Sinus rhythm no longer present ST (T wave) deviation no longer present Electronically Signed On 10-12-22 15:56:58 CDT by Christian Dooley
== END 2022-10-11 23:54 | disposition home or self-care (01) ==
LOC: ER 21:10
DX: I10 Essential (primary) hypertension (principal); Z88.1 Allergy status to other antibiotic agents; Z88.5 Allergy status to narcotic agent; Z88.8 Allergy status to other drugs, medicaments and biological substances; Z91.040 Latex allergy status; Z91.048 Other nonmedicinal substance allergy status
CPT/HCPCS: 93005; 85025; 80048; 36415; 83735; 82550; 85610; 80076; 81003; 84484; 83690; 83880; 71045; 99285; J7040

== ENCOUNTER 2023-03-07 20:53 | Emergency (ER) | payer OTHER ==
--- OUTSIDE RECORDS SUMMARY | 2023-03-07 20:58 | XMS REPORT | Continuity of Care Document ---
:1960 Author Organization [facility] t Address [address] [facility] [address] [place] [address] Care Team Providers Name Role Phone Unknown, Physician Primary Care Physician Unavailable Reese Jenkins Attending Clinician Unavailable Fernanda Lockwood Attending Clinician Unavailable WARD SCHULER Attending Clinician Unavailable Shania Biswas Attending Clinician Doctor Unassigned, [place] Attending Clinician Unavailable Ajibade_O_AH Attending Clinician Unavailable Ige-Odunuga_J_AH Attending Clinician Unavailable LUCHO ALFARO Attending Clinician Unavailable Lucho Alfaro NP Attending Clinician Ajibade_O_AH Admitting Clinician Unavailable Ige-Odunuga_J_AH Admitting Clinician Unavailable LUCHO ALFARO Admitting Clinician Unavailable Payers Payer Name Policy Type Policy Number Effective Date Expiration Date Nazario stoner WELLCARE/WELLCA [id number] 2021 RE [place] 00:00:00 WellCare MCR C1 [id number] [facility] Wellcare C1 [id number] [facility] Wellcare C1 [id number] [facility] WELLCARE OF [place] [id number] 2019 - [place] 00:00:00 (MEDICARE REPLACEMENT/ADV ANTAGE - HMO) Problems Condition Condition Condition Status Onset Resolution Last Treating Co mments Source Name Details Category Date Date Treatment Clinician Date No known No known Disease Unive rs active active ity of problems problems [facility] Memory Memory Problem Active 2019-04-22 Lucio [...] detachment detachment - CHI , right eye [facility] [id number] Acute Problem Common upper Spirit respirator - CHI y infection [facility] [id number] Gastro-eso Problem Co mmon phageal Spirit reflux - CHI disease [facility] esophagiti [facility] [id number] Abnormal Problem Comm on blood Spirit sugar - [facility] [id number] Essential Problem Comm on (primary) Spirit hypertensi - [facility]I on [facility] [id number] Chronic Problem Commo n pain [facility] syndrome - [facility] [id number] Hyperglyce Problem Com mon alex [facility] [id number] Generalize Problem Com mon d anxiety [facility] disorder - [facility] [id number] Diverticul Problem Co mmon osis Spirit [facility] [id number] Encounter Problem Com mon for Spirit counseling - [facility] [id number] BPH loc Problem Commo n w/o ur Spirit obs/LUTS [facility] [id number] 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 unspecifie Medica l [facility] gastrointe stinal tract location [id number] Chronic Problem Common fatigue [facility] - [facility] [id number] Cervical Problem Comm on spondylosi [facility] s without - CHI myelopathy [facility] [id number] BMI Problem Common 29.0-29.9, [facility] adult [facility] [id number] Nausea Problem Common [facility] [id number] Lumbar Problem Common sprain, Spirit initial - CHI encounter [facility] [id number] Wheezing Problem Commo n Spirit [facility] [id number] Hospital Problem Comm on discharge Spirit follow-up - [facility] [id number] Acute Problem Common tonsilliti Spirit s, - CHI unspecifie [facility] [id number] Panic Problem Common disorder Spirit with - CHI agoraphobi 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 [facility] 70548594 Pelvic Problem Common pain [facility] [id number] Other Problem Common chronic [facility] pancreatit - [facility] is [facility] [id number] Disc Problem Common disorder [facility] [id number] Perineal Problem Comm on pain [facility] [id number] Scrotum Problem Common pain [facility] [id number] BPH loc w Problem Com mon urin Spirit obs/LUTS [facility] [id number] Chronic Problem Common prostatiti [facility] s [facility] Allergies, Adverse Reactions, Alerts Allergy Allergy Status Severity Reaction(s) Onset Inactive Treating Comm ents Source Name Type Date Date Clinician Sulfamet Allergy Active Other [place] hoxazole to 2-13 reaction( Healt h substanc 00:00: s): e 00 SWELING Trimetho Allergy Active Other [place] prim to 2-13 reaction( Health substanc 00:00: s): e 00 SWELING Vancomyc Allergy Active Other [facility] in to 2-13 reaction( Health substanc 00:00: s): e 00 Unknown Ketorola Allergy Active Other [place] c to 2-13 reaction( Health substanc 00:00: s): e 00 Unknown Prometha Allergy Active Other [facility] zine to 1-23 reaction( Health substanc 00:00: s): e 00 hives, hives, SWELLING Sulfamet Allergy Active Rash 2019-0 Other [place] hoxazole to 1-23 reaction( Healt h -Trimeth substanc 00:00: s): rash oprim e 00 Cephalex Allergy Active Rash 2019-0 Other [place] in to 1-23 reaction( Health substanc 00:00: s): rash, e 00 SWELLING Iodides Propensi Active Hives Univers ty to 12-06 ity of adverse 00:00: [place] reaction 00 Medical s Branch Latex Propensi Active Rash Univers ty to 12-06 ity of adverse 00:00: [place] reaction 00 Medical s Branch Levoflox Propensi Active Anaphylaxis 2014- U nivers acin ty to 12-06 ity of adverse 00:00: [place] reaction 00 Medical s Branch Ketorola Propensi Active Other - See 2014- Pin U nivers c ty to comments 12-06 needle ity of Trometha adverse 00:00: pains to [place] mine reaction 00 stomach Medical s Branch IODIDES DRUG Active Hives 2014- Univers 04 ity of 00:00: [place] 00 Medical Branch [...] pains to stomach Latex Allergy Active Rash 2014- [facility] to 7 Health substanc 00:00: e 00 Iodides Allergy Active Hives 2014- Other [place] to 7 reaction( Health substanc 00:00: s): e 00 Unknown Iodides Allergy Active Hives 2014- Other [place] to 7 reaction( Health substanc 00:00: s): e 00 Unknown Levoflox Allergy Active Anaphylaxis 2013- Other [place] acin to 2 reaction( Health substanc 00:00: s): stops e 00 breathing , SWELLING, Unknown 8091 Drug Active rash Common allergy Spirit - [facility] prometha prometha Active hives Common zine zine [facility] sulfamet sulfamet Active rash Common hoxazole hoxazole Spirit / / - CHI trimetho trimetho [facility] 33948 Drug Active stops Common allergy breathing [facility] Social History Social Habit Start Date Stop Date Quantity Comments Source History of Tobacco Common Spirit - Use [facility] Exposure to 2022-05-02 2022-05-12 Not sure [facility] SARS-CoV-2 (event) 00:00:00 11:32:00 Sex Assigned At [birth year] [facility] 00:00:00 00:00:00 Smoking Status Start Date Stop Date Source Tobacco smoking consumption [facility] Esteban gandhi unknown Social History 2019-03-28 18:18:16 2019-03-28 18:18:16 [facility] Medications Ordered Filled Start Stop Current Ordering Indication Dosage Frequency Signature Comments Components Source Medication Medication Date Date Medication? Clinician (SIG) Name Name brimonidine 2021-06 Yes [id number] 1[drp] Q.5D Administer [facility] -timolol 2-08 1 drop Health (Combigan) 00:00: into the 0.2-0.5 % 00 right eye ophthalmic in the solution morning and 1 drop in the evening. brimonidine 2021-06- No [id number] 1[drp] Q.5D Administer [place] -timolol 1-10 12-08 [...] 1 MG 00:00: 00 brimonidine 2021-06 Yes [id number] 1[drp] Q.5D Administer [place] -timolol 0-31 1 drop Health (Combigan) 00:00: into the 0.2-0.5 % 00 right eye ophthalmic in the solution morning and 1 drop in the evening. brimonidine 2021-06- No [id number] 1[drp] Q.5D Administer [place] -timolol 0-31 12-08 1 drop Health ([place]) 00:00: 00:00 into the 0.2-0.5 % 00 :00 right eye ophthalmic in the solution morning and 1 drop in the evening. clonazePAM clonazePAM 2021-0 No QD clonazePAM 1 MG 1 MG 9- 1 MG 00:00: 00 clonazePAM clonazePAM 2021-0 No QD clonazePAM 1 MG 1 MG 9-07 1 MG 00:00: 00 clonazePAM clonazePAM 2021-0 No QD clonazePAM 1 MG 1 MG 9-07 1 MG 00:00: 00 clonazePAM clonazePAM 2021-0 No QD clonazePAM 1 MG 1 MG 9- 1 MG 00:00: 00 clonazePAM clonazePAM 2021-0 No QD clonazePAM 1 MG 1 MG 9- 1 MG 00:00: 00 clonazePAM clonazePAM 2021-0 No QD clonazePAM 1 MG 1 MG -05 1 MG 00:00: 00 clonazePAM clonazePAM 2020-0 No BID clonazePAM 1 MG 1 MG 9-21 1 MG 00:00: 00 clonazePAM clonazePAM 2020-0 No BID clonazePAM 1 MG 1 MG -21 1 MG 00:00: 00 Flomax 0.4 Flomax 0.4 2020-0 2021- No 1{capsu QD Flomax 0.4 MG MG 12-24-16 le} MG 00:00: 00:00 00 :00 Flomax 0.4 Flomax 0.4 2020-0 2021- No 1{capsu QD Flomax 0.4 MG MG 12-24-16 le} MG 00:00: 00:00 00 :00 Zofran [...] MG 00:00: 00 acyclovir 5 2019-0 Yes [id number] Apply to Univers % ointment 2-16 area(s) 5 ity of 00:00: (five) [place] 00 times Medical daily. Branch acyclovir 5 2019-0 Yes [id number] Apply to Univers % ointment 2-16 area(s) 5 ity of 00:00: (five) [place] 00 times Medical daily. Branch acyclovir 5 2020-0 Yes [id number] Apply to Univers % ointment 2-16 area(s) 5 ity of 00:00: (five) [place] 00 times Medical daily. Branch valsartan 2018-06 Yes 0 Memoria 40 mg oral 0-24 Refill(s) l tablet 19:12: Evan 00 pantoprazol Yes 40 mg = 1 M emoria e 40 mg 4-24 tab, PO, l oral 19:00: Daily, # [place] enteric 00 30 tab, 0 coated Refill(s) tablet carvedilol Yes 25 mg = 1 Me moria 25 mg oral 4-24 tab, PO, l tablet 19:00: BID, # 180 Maggy nn 00 tab, 0 Refill(s) Acetaminoph 2019- Yes 1 tab, PO, Memoria en 325 MG / 4-24 QID, 0 l Hydrocodone 19:00: Refill(s) H ermann Bitartrate 00 10 MG Oral Tablet [[place] 10/325] Clonazepam Yes 2 mg = 1 Mem oria 2 MG Oral 4-24 tab, PO, l Tablet 19:00: BID, # 60 Jun n [Klonopin] 00 tab, 0 Refill(s) Aspirin 81 Aspirin 81 2017- Yes Esthela 1 tablet Common 4-12 [place] [facility] 00:00: - [facility] Aspirin 81 Aspirin 81 2017- No [...] puff Common Sulfate HFA Sulfate HFA 1-25 [place] [facility] 00:00: - [facility] Albuterol Albuterol 2014-06 No 1{puff} QID [...] 06:42: [place] ORAL) 52 Medical Branch carvedilol 2015-0 Yes 25mg Take 25 mg U nivers [...] Clonazepam Clonazepam Yes Esthela TAKE 1 Common [place] TABLET BY Spirit MOUTH - CHI TWICE A [facility] Carvedilol Carvedilol Yes Esthela take 1 Common [place] tablet by Spirit mouth - CHI twice a [facility] Famotidine Famotidine Yes Esthela 1 tablet Common [place] at bedtime [facility] Protonix Protonix Yes Esthela 1 tablet Co mmon [place] [facility] Dicyclomine Dicyclomine Yes Esthela 1 tablet Common HCl HCl [place] [facility] Ventolin Ventolin Yes Esthela 2 puffs Com mon HFA HFA [place] [facility] - [facility] Valsartan Valsartan Yes Esthela 1 tablet Common [place] [facility] - [facility] Hydrocodone Hydrocodone Yes Esthela (Schedule Common -Acetaminop -Acetaminop [place] [facility]) Spirit hen hen TK 1 T PO - CHI TID [facility] Pantoprazol Pantoprazol No Pantoprazo e Sodium 40 e Sodium 40 le Sodium MG MG 40 MG Carvedilol Carvedilol No Carvedilol 25 MG 25 MG 25 MG Dicyclomine Dicyclomine No 1{table QID Dicyclomin HCl 20 MG HCl 20 MG t} e HCl 20 MG Creon Creon No Creon [id number] [phone] UNIT UNIT 0 UNIT OneTouch OneTouch No OneTouch Ultra - Ultra - Ultra - Lactulose Lactulose No 15{ml} Lactulose 10 GM/15ML 10 GM/15ML 10 GM/15ML Carvedilol Carvedilol No BID Carvedilol 25 MG 25 MG 25 MG HYDROcodone HYDROcodone No HYDROcodon -Acetaminop -Acetaminop e-Acetamin hen 10-325 hen 10-325 ophen MG MG 10-325 MG OneTouch OneTouch No OneTouch Delica Plus Delica Plus Delica Jhlrsw93I - Ywbbvf88B - Plus Adecxs01I - Famotidine Famotidine No 1{table BID Famotidine [...] MG 25 MG Creon Creon No Creon [phone] [phone] [phone] UNIT UNIT 0 UNIT Famotidine Famotidine No 1{table BID Famotidine 20 MG 20 MG t_at_be 20 MG dtime} Ventolin Ventolin No 2{puffs Ventolin HFA 108 (90 HFA 108 (90 } HFA 108 Base) Base) (90 Base) MCG/ACT MCG/ACT MCG/ACT Carvedilol Carvedilol No Carvedilol 25 MG 25 MG 25 MG OneTouch OneTouch No OneTouch Delica Plus Delica Plus Delica Ncpzsp89X - Nnxfeu75G - Plus Socsii19B - Dicyclomine Dicyclomine No 1{table QID Dicyclomin [...] HCl 20 MG Creon Creon No Creon 61743-44281 [phone] [phone] UNIT UNIT 0 UNIT Carvedilol Carvedilol No BID Carvedilol 25 MG 25 MG 25 MG Carvedilol Carvedilol No Carvedilol 25 MG 25 MG 25 MG Lactulose Lactulose No 15{ml} Lactulose 10 GM/15ML 10 GM/15ML 10 GM/15ML OneTouch OneTouch No OneTouch Delica Plus Delica Plus Delica Fehvdq97Y - Wgcyfr99K - Plus Qmztjv07A - Protonix 40 Protonix 40 No 1{table [...] t} 40 MG Creon Creon No Creon 45042-47160 [phone] [phone] UNIT UNIT 0 UNIT Carvedilol Carvedilol No [...] No OneTouch Delica Plus Delica Plus Delica Xkzfxo37G - Oxtkzk48T - Plus Zekxfs89S - HYDROcodone HYDROcodone No HYDROcodon -Acetaminop -Acetaminop [...] No OneTouch Delica Plus Delica Plus Delica Bsbawz14R - Feodhr98U - Plus Kjvnmq28B - Pantoprazol Pantoprazol No Pantoprazo e Sodium [...] - Ultra - Creon Creon No Creon [phone] [phone] [phone] UNIT UNIT 0 UNIT HYDROcodone HYDROcodone No HYDROcodon -Acetaminop -Acetaminop e-Acetamin hen 10-325 hen 10-325 ophen MG MG 10-325 MG Carvedilol Carvedilol No BID Carvedilol 25 MG 25 MG 25 MG Protonix 40 Protonix 40 No 1{table QD Protonix MG MG t} 40 MG OneTouch OneTouch No OneTouch Delica Plus Delica Plus Delica Sshsnt44V - Izyxce27H - Plus Nrsqbv48V - Pantoprazol Pantoprazol No Pantoprazo e Sodium [...] - Ultra - Creon Creon No Creon 87900-98367 [phone] [phone] UNIT UNIT 0 UNIT HYDROcodone HYDROcodone No HYDROcodon -Acetaminop -Acetaminop e-Acetamin hen 10-325 hen 10-325 ophen MG MG 10-325 MG Carvedilol Carvedilol No BID Carvedilol 25 MG 25 MG 25 MG Protonix 40 Protonix 40 No 1{table QD Protonix MG MG t} 40 MG OneTouch OneTouch No OneTouch Delica Plus Delica Plus Delica Tzuyaf20L - Uohkvv25I - Plus Zsaoke79N - Pantoprazol Pantoprazol No Pantoprazo e Sodium [...] - Ultra - Creon Creon No Creon 43337-60982 [phone] [phone] UNIT UNIT 0 UNIT HYDROcodone HYDROcodone No HYDROcodon -Acetaminop -Acetaminop e-Acetamin hen 10-325 hen 10-325 ophen MG MG 10-325 MG Carvedilol Carvedilol No BID Carvedilol 25 MG 25 MG 25 MG Protonix 40 Protonix 40 No 1{table QD Protonix MG MG t} 40 MG OneTouch OneTouch No OneTouch Delica Plus Delica Plus Delica Nnpmlv47J - Vmmssl74L - Plus Ifofsc01L - Pantoprazol Pantoprazol No Pantoprazo e Sodium [...] - Ultra - Creon Creon No Creon [id number] [phone] [phone] UNIT UNIT 0 UNIT HYDROcodone HYDROcodone No [...] GM/15ML 10 GM/15ML Creon Creon No Creon 14472-25016 [phone] [phone] UNIT UNIT 0 UNIT Dicyclomine Dicyclomine No 1{table QID Dicyclomin HCl 20 MG HCl 20 MG t} e HCl 20 MG Protonix 40 Protonix 40 No 1{table QD Protonix MG MG t} 40 MG OneTouch OneTouch No OneTouch Delica Plus Delica Plus Delica Palxfg27A - Qczaci67U - Plus Frgxtq38X - Pantoprazol Pantoprazol No Pantoprazo e Sodium [...] GM/15ML 10 GM/15ML Creon Creon No Creon 84199-15334 [phone] [phone] UNIT UNIT 0 UNIT Dicyclomine Dicyclomine No 1{table QID Dicyclomin HCl 20 MG HCl 20 MG t} e HCl 20 MG Protonix 40 Protonix 40 No 1{table QD Protonix MG MG t} 40 MG OneTouch OneTouch No OneTouch Delica Plus Delica Plus Delica Jbmbdn55G - Felvch98Q - Plus Loxttg86N - Creon Creon No Creon 84250-54204 [phone] [phone] UNIT UNIT 0 UNIT clonazePAM clonazePAM No BID clonazePAM 1 MG 1 MG 1 MG Protonix 40 Protonix 40 No 1{table QD Protonix MG MG t} 40 MG Carvedilol Carvedilol No BID Carvedilol 25 MG 25 MG 25 MG Creon Creon 2019- No Esthela take by Common 12-23 [place] mouth 1 Spirit 00:00 capsule 3 - CHI :00 times a day [facility] Vital Signs Vital Name Observation Time Observation Value Comments Source height 2022-04-11 15:40:00 70 [in_i] Common S pirit - [facility] weight 2022-04-11 15:40:00 206.9 [lb_av] Common [facility] temperature 2022-04-11 15:40:00 97.6 [degF] [facility] 2022-04-11 15:40:00 29.68 kg/m2 Common [facility] oximetry 2022-04-11 15:40:00 98 % Common [facility] respiratory rate 2022-04-11 15:40:00 18 /min Comm on [facility] blood pressure 2022-04-11 15:40:00 138 mm[Hg] Common [facility] - systolic [facility] blood pressure 2022-04-11 15:40:00 72 mm[Hg] Common [facility] - diastolic [facility] height 2022-02-09 13:50:00 70 [in_i] Common [facility] weight 2022-02-09 13:50:00 207 [lb_av] [facility] temperature 2022-02-09 13:50:00 97.9 [degF] Common [facility] bmi 2022-02-09 13:50:00 29.7 kg/m2 [facility] oximetry 2022-02-09 13:50:00 96 % [facility] respiratory rate 2022-02-09 13:50:00 18 /min Comm on [facility] blood pressure 2022-02-09 13:50:00 132 mm[Hg] Common [facility] - systolic [facility] blood pressure 2022-02-09 13:50:00 70 mm[Hg] Common [facility] - diastolic [facility] height 2021-12-07 09:20:00 70 [in_i] Common [facility] weight 2021-12-07 09:20:00 206.0 [lb_av] [facility] temperature 2021-12-07 09:20:00 98.2 [degF] Common S pirit [facility] bmi 2021-12-07 09:20:00 29.55 kg/m2 Common [facility] oximetry 2021-12-07 09:20:00 99 % Common [facility] respiratory rate 2021-12-07 09:20:00 18 /min Comm on [facility] blood pressure 2021-12-07 09:20:00 137 mm[Hg] Common [facility] - systolic [facility] blood pressure 2021-12-07 09:20:00 70 mm[Hg] Common [facility] - diastolic [facility] height 2021-02-23 14:30:00 70 [in_i] Common [facility] weight 2021-02-23 14:30:00 190.0 [lb_av] [facility] temperature 2021-02-23 14:30:00 98.3 [degF] Common [facility] bmi 2021-02-23 14:30:00 27.26 kg/m2 Common [facility] blood pressure 2021-02-23 14:30:00 138 mm[Hg] Common [facility] - systolic [facility] blood pressure 2021-02-23 14:30:00 74 mm[Hg] Common [facility] - diastolic [facility] Systolic blood 2020-12-28 20:04:00 155 mm[Hg] Univer sity of [facility] Diastolic blood 2020-12-28 20:04:00 82 mm[Hg] Unive rsity of [facility] Heart rate 2020-12-28 20:04:00 61 /min Universi ty of [facility] Body temperature 2020-12-28 20:04:00 36.67 Jing Univ ersity [facility] Respiratory rate 2020-12-28 20:04:00 16 /min Univ ersity [facility] Body height 2020-12-28 20:04:00 177.8 cm Universi ty of [facility] Body weight 2020-12-28 20:04:00 86.183 kg Universi ty of [facility] BMI 2020-12-28 20:04:00 27.26 kg/m2 [facility] [place] [facility] Oxygen saturation in 2020-12-28 20:04:00 97 /min University of Arterial blood by [facility] Pulse oximetry Branch Systolic blood 2019-07-22 04:00:00 147 mm[Hg] Univer sity of pressure [place] [facility] Diastolic blood 2019-07-22 04:00:00 87 mm[Hg] Unive rsity of pressure [place] [facility] Heart rate 2019-07-22 04:00:00 54 /min [facility]i ty [facility] [place] [facility] Respiratory rate 2019-07-22 04:00:00 20 /min Univ ersity [facility] [place] [facility] Oxygen saturation in 2019-07-22 04:00:00 99 /min University of Arterial blood by [facility] [place] Pulse oximetry Branch Body temperature 2019-07-21 23:21:00 37 Jing Univ [facility] [place] [facility] Body weight 2019-07-21 23:21:00 86.183 kg [facility] [place] [facility] BMI 2019-07-21 23:21:00 27.26 kg/m2 [facility] [place] [facility] Systolic blood 2019-07-22 04:00:00 147 mm[Hg] Univer sity of pressure [place] [facility] Diastolic blood 2019-07-22 04:00:00 87 mm[Hg] Unive rsity of pressure [place] [facility] Heart rate 2019-07-22 04:00:00 54 /min [facility] [place] [facility] Respiratory rate 2019-07-22 04:00:00 20 /min Univ ers[facility] [place] [facility] Oxygen saturation in 2019-07-22 04:00:00 99 /min University of Arterial blood by [facility] [place] Pulse oximetry Branch Body temperature 2019-07-21 23:21:00 37 Jing Univ ers[facility] [place] [facility] Body weight 2019-07-21 23:21:00 86.183 kg [facility] [place] [facility] BMI 2019-07-21 23:21:00 27.26 kg/m2 [facility] [place] [facility] Systolic (mm Hg) 2019-03-28 18:17:00 Lucio Gordon Diastolic (mm Hg) 2019-03-28 18:17:00 Will canas Evan Heart Rate 2019-03-28 18:17:00 Nona [place] Respitory Rate 2019-03-28 18:17:00 Gricel arauz Evan Height 2019-03-28 18:17:00 172.72 cm Nona Gordon Weight 2019-03-28 18:17:00 Nona Fernándezann BMI Calculated 2019-03-28 18:17:00 Gricel Wright BMI Calculated 2018-09-26 18:51:00 Gricel Wright Weight 2018-09-26 18:51:00 Nona Gordon Height 2018-09-26 18:51:00 172.72 cm [facility] Heart Rate 2018-09-26 18:51:00 [facility] Respitory Rate 2018-09-26 18:51:00 Gricel arauz Evan Systolic (mm Hg) 2018-09-26 18:51:00 Lucio Fernándezann Diastolic (mm Hg) 2018-09-26 18:51:00 Mem missael Gordon Procedures Procedure Date / Time Performed Performing Clinician Shana shonda NOTICE OF PRIVACY 2020-12-28 19:58:01 [facility] CONSENT/REFUSAL FOR 2020-12-28 19:57:10 Doctor Unassigned, No Un [facility] [place] DIAGNOSIS AND Name Medical Branch TREATMENT US SCROTUM AND 2019-07-22 03:08:48 Lucho Alfaro [facility] Medical Branch NOTICE OF PRIVACY 2019-07-21 23:12:14 Doctor Unassigned, No Univ ersity of [facility] Name Medical Branch CONSENT/REFUSAL FOR 2019-07-21 23:07:41 Doctor Unassigned, No Un [facility] [place] DIAGNOSIS AND Name Medical Branch TREATMENT Encounters Start End Encounter Admission Attending Care Care Encounter Source Date/Time Date/Time Type Type Clinicians Facility Department ID 2023-01-11 Outpatient Jenkins, [facility] [id number] Common 16:27:00 Reese [id number] [facility] 2022-09-12 Outpatient Jenkins, [facility] [id number] Common 13:14:00 Reese [id number] [facility] 2022-08-26 Outpatient Jenkins, [facility] [id number] Common 08:40:00 Reese [id number] [facility] 2022-08-17 Outpatient Jenkins, [facility] [id number] Common 14:47:00 Reese [id number] [facility] 2022-06-02 Outpatient [facility] [id number] [place] 08:30:58 [id number] [facility] 2022-05-24 Outpatient Jenkins, STLMLC STLMLC [id number] Common 13:55:01 [facility] 2022-05-23 Outpatient Jenkins, STLMLC STLMLC [id number] Common 10:20:01 [facility] 2022-05-04 Outpatient [facility] [id number] [place] 14:32:40 [id number] [facility] 2022-04-07 Outpatient Jenkins, STLMLC STLMLC [id number] Common 13:30:01 [facility] 2022-04-04 Outpatient [facility] [id number] [place] 10:22:48 [id number] [facility] 2022-03-31 Outpatient [facility] [id number] [place] 12:03:45 [id number] [facility] 2022-03-30 Outpatient [facility] [id number] [place] 15:15:47 [id number] [facility] 2022-02-09 Outpatient Jenkins, STLMLC STLMLC [id number] Common 13:48:01 [facility] 2021-12-08 Outpatient Jenkins, STLMLC STLMLC [id number] Common 11:45:00 [facility] 2021-12-07 Outpatient Jenkins, STLMLC STLMLC [id number] Common 09:25:00 [facility] 2021-12-03 Outpatient Jenkins, STLMLC STLMLC [id number] Common 09:35:01 [facility] 2021-06-30 Outpatient Jenikns, STLMLC STLMLC [id number] Common 13:05:56 [facility] 27412 [facility] 2021-06-30 Outpatient Jenkins, STLMLC STLMLC [id number] Common 12:47:29 [facility] 45736 [facility] 2021-06-30 Outpatient Jenkins, STLMLC STLC [id number] Common 12:36:27 Reese 69428 [facility] 2021-06-30 Outpatient Jenkins, STLMLC STLC [id number] Common 12:35:26 Reese 10783 [facility] 2021-06-30 Outpatient Jenkins, STLMLC STLMLC [id number] Common 12:28:53 Reese 42579 [facility] 2021-06-30 Outpatient Jenkins, STLMLC STLMLC [id number] Common 12:26:11 Reese 14064 [facility] 2021-06-30 Outpatient Jenkins, STLMLC STLMLC [id number] Common 12:12:23 Reese 12544 [facility] 2021-06-30 Outpatient Jenkins, STLMLC STLC [id number] Common 12:04:45 Reese 68749 [facility] 2021-06-30 Outpatient Jenkins, STLMLC STLC [id number] Common 11:55:15 Reese 06916 [facility] 2021-06-30 Outpatient Jenkins, STLMLC STLMLC [id number] Common 11:52:56 Reese 69402 [facility] 2021-06-30 Outpatient Jenkins, STLMLC STLC [id number] Common 11:52:32 Reese 10739 [facility] 2021-06-30 Outpatient Millender, STLMLC STLC [id number] Common 11:02:50 Fernanda 65447 [facility] 2021-06-30 Outpatient Millender, STLMLC STLC [id number] Common 11:02:33 Fernanda 35219 [facility] 2022-06-16 2022-06-16 Outpatient TOM, [facility] [id number] [place] 13:00:00 13:00:00 TALJAXEsteban [facility] 2022-05-12 2022-05-12 Office Tom [facility] 6400 [id number] [place] 11:30:00 13:38:[address] [id number] Health [id number] 2022-04-19 2022-04-19 (TEL) STLMLC STLMLC [id number] Co mmon 00:00:00 00:00:00 [facility] 2022-04-14 2022-04-14 [facility] [place] [place] [id number] [place] 10:30:00 12:17:23 [facility] 2022-04-11 2022-04-11 OFFICE STLMLC STLMLC [id number] Co mmon 00:00:00 00:00:00 VIS[address] [facility] 2022-04-04 2022-04-04 Office Tom, [facility] 6400 [id number] [place] 10:30:00 16:18:07 Visit Ward BROWN [id number] Health [id number] 2022-03-25 2022-03-25 [facility] [place] [id number] [place] 11:00:00 11:00:00 [facility] 2022-03-24 2022-03-24 (TEL) STLMLC STLMLC [id number] Co mmon 00:00:00 00:00:00 [facility] 2022-03-23 2022-03-23 (TEL) STLMLC STLMLC [id number] Co mmon 00:00:00 00:00:00 [facility] 2022-03-23 2022-03-23 (TEL) STLMLC STLMLC [id number] Co mmon 00:00:00 00:00:00 [facility] 2022-03-23 2022-03-23 (TEL) STLMLC STLMLC [id number] Co mmon 00:00:00 00:00:00 [facility] 2022-02-09 2022-02-09 OFFICE STLMLC STLMLC [id number] Co mmon 00:00:00 00:00:00 [facility] L[facility] 2021-12-07 2021-12-07 OFFICE STLMLC STLMLC [id number] Co mmon 00:00:00 00:00:00 [facility] - [facility] L[facility] 2021-03-24 2021-03-24 (TEL) STLMLC STLMLC [id number] Co mmon 00:00:00 00:00:00 [facility] 2021-02-23 2021-02-23 (TELEAUD) STLMLC STLMLC [id number] Common 00:00:00 00:00:00 AUDIO [facility] TELEMEDICI - [facility] NE [facility] 2021-02-22 2021-02-22 (TEL) STLMLC STLMLC [id number] Co mmon 00:00:00 00:00:00 [facility] 2020-12-28 2020-12-28 Emergency Waters, [facility] [id number] Univers 15:10:00 16:55:00 Shania S Kinjal [id number] i ty [facility] [id number] [facility] [id number] [facility] 084 Branch 2020-12-28 2020-12-28 Emergency X [facility] ERT [id number] Univers 14:57:00 14:57:00 [facility] of [facility] 2020-12-28 2020-12-28 Orders Doctor POPPY [id number] Univers 00:00:00 00:00:00 Only Unassigned, RAJIV [id number] [facility] [id number] [facility] [id number] [facility] 009 Branch 2020-12-24 2020-12-24 Outpatient STLMLC STLMLC [id number] Common 00:00:00 00:00:00 [facility] 2020-12-17 2020-12-17 Outpatient STLMLC STLMLC [id number] Common 00:00:00 00:00:00 [facility] 2020-12-04 2020-12-04 Outpatient STLMLC STLMLC [id number] Common 00:00:00 00:00:00 [facility] 2020-10-22 2020-10-22 Outpatient STLMLC STLMLC [id number] Common 00:00:00 00:00:00 [facility] 2020-10-15 2020-10-15 Outpatient STLMLC STLMLC [id number] Common 00:00:00 00:00:00 [facility] 2020-10-07 2020-10-07 Outpatient STLMLC STLMLC [id number] Common 00:00:00 00:00:00 [facility] 2020-09-07 2020-09-07 Outpatient STLMLC STLMLC [id number] Common 00:00:00 00:00:00 [facility] 2020-08-06 2020-08-06 Outpatient STLMLC STLMLC [id number] Common 00:00:00 00:00:00 [facility] 2020-07-09 2020-07-09 Outpatient STLMLC STLMLC [id number] Common 00:00:00 00:00:00 [facility] 2020-06-09 2020-06-09 Outpatient STLMLC STLMLC [id number] Common 00:00:00 00:00:00 [facility] 2020-05-21 2020-05-21 Outpatient STLMLC STLMLC [id number] Common 00:00:00 00:00:00 [facility] 2020-05-14 2020-05-14 Outpatient STLMLC STLMLC [id number] Common 00:00:00 00:00:00 [facility] 2020-04-28 2020-04-28 Outpatient STLMLC STLMLC [id number] Common 00:00:00 00:00:00 [facility] 2020-04-16 2020-04-16 Outpatient STLMLC STLMLC [id number] Common 00:00:00 00:00:00 [facility] 2020-03-18 2020-03-18 Outpatient STLMLC STLMLC [id number] Common 00:00:00 00:00:00 [facility] 2020-03-18 2020-03-18 Outpatient STLMLC STLMLC [id number] Common 00:00:00 00:00:00 [facility] 2020-03-10 2020-03-10 Outpatient STLMLC STLMLC [id number] Common 00:00:00 00:00:00 [facility] 2020-01-30 2020-01-30 Outpatient Ajibade_O_A VFP VFP [id number] [facility] 04:28:00 04:28:00 H [id number] Family Practic e 2020-01-30 2020-01-30 Outpatient Ajibade_O_A VFP VFP [id number] [facility] 04:28:00 04:28:00 H [id number] Family Practic e 2020-01-30 2020-01-30 Outpatient Ajibade_O_A VFP VFP [id number] [facility] 04:28:00 04:28:00 H [id number] Family Practic e 2020-01-30 2020-01-30 Outpatient Ajibade_O_A VFP VFP [id number] [facility] 04:28:00 04:28:00 H [id number] Family Practic e 2019-07-24 2019-07-24 Outpatient Ige-Odunuga VFP VFP [id number] [facility] 07:17:00 07:17:00 _J_AH [id number] Family Practic e 2019-07-24 2019-07-24 Outpatient Ige-Odunuga VFP VFP [id number] [facility] 07:17:00 07:17:00 _J_AH [id number] Family Practic e 2019-07-21 2019-07-21 Emergency X [facility] ERT [id number] Univers 18:06:23 22:09:00 LUCHO catherine [facility] 2019-07-21 2019-07-21 Emergency [facility] [id number] Univers 18:06:23 22:09:00 Lucho Layton [id number] [facility]flo [facility] [id number] [facility] [id number] [address] 2019-07-21 2019-07-21 [facility] [id number] 18:06:23 22:09:00 Lucho Layton [id number] [place] [id number] [place] [id number] 2019-07-15 2019-07-15 [facility] [id number] Common 15:01:00 15:01:00 t Specialty/U Sp jose alberto Specialty rology - [facility] /Urology Clinic [facility] 2019-07-09 2019-07-09 [facility] [id number] Common 16:46:00 16:46:00 t Specialty/U Sp jose alberto Specialty rology - [facility]I /Urology Clinic [facility] 2019-07-08 2019-07-08 Out[facility] [id number] Common 14:51:00 14:51:00 t Specialty/U Sp jose alberto Specialty rology - [facility]I /Urology Clinic [facility] 2019-07-08 2019-07-08 Out[facility] [id number] Common 08:00:00 08:00:00 t Specialty/U Sp jose alberto Specialty rology - [facility]I /Urology Clinic [facility] 2019-07-04 2019-07-04 [facility] [id number] Common 13:00:00 13:00:00 t Specialty/U Sp jose alberto Specialty rology - [facility] /[facility]rology Clinic [facility] 2019-07-02 2019-07-02 Out[facility] [id number] Common 14:32:00 14:32:00 [address] [facility] [address] [facility] it Road [facility] 2019-06-27 2019-06-27 [facility] [id number] Common 14:40:00 14:40:00 [address] [facility] [address] [facility] it Road [facility] 2019-06-03 2019-06-03 Out[facility] [id number] Common 11:17:00 11:17:00 t [facility] [address] [facility] it Road [facility] 2019-04-18 2019-04-20 Outside nullFlavo MNA [id number] Memoria 18:37:59 05:59:59 Medical r Neurology 01 l Records Ashlee Gordon 2019-04-11 2019-04-11 Ambulatory nullFlavo MNA [id number] Memoria 21:30:00 21:30:00 Pre-Reg r Neurology 03 l [place] 2019-04-09 2019-04-09 Outpatient [facility] [id number] Common 15:20:00 15:20:[address] [facility] [address] [facility] 2019-04-01 2019-04-03 Outside nullFlavo MNA [id number] Memoria 13:58:44 04:59:59 Medical r Neurology 00 l Records Ashlee Fernándezann 2019-03-28 2019-03-29 Outpatient nullFlavo MNA [id number] Memoria 18:00:00 04:59:59 r Neurology 02 l [place] Fern[place] 2019-02-19 2019-02-19 Out[facility] [id number] Common 14:40:00 14:40:[address] [facility] [address] [facility] 2018-12-11 2018-12-11 Outpatient [facility] [id number] Common 11:21:00 11:21:[address] [facility] [address] [facility] 2018-11-19 2018-11-19 Outpatient [facility] [id number] Common 14:40:00 14:40:[address] [facility] [address] [facility] 2018-10-31 2018-10-31 Ambulatory nullFlavo MNA [id number] Memoria 18:45:00 18:45:00 Pre-Reg r Neurology 01 l [place] 2018-09-26 2018-09-27 Outpatient nullFlavo MNA [id number] Memoria 18:30:00 04:59:59 r Neurology 00 l [place] 2018-09-17 2018-09-17 Out[facility] [id number] Common 16:00:00 16:00:[address] [facility] 2018-08-02 2018-08-02 Out[facility] [id number] Common 16:07:00 16:07:00 t [employer] [address] [facility] 2018-08-02 2018-08-02 Outpatient [facility] [id number] Common 16:05:00 16:05:[address] [facility] 2018-06-18 2018-06-18 Out[facility] [id number] Common 16:00:00 16:00:[address] [facility] 2018-01-18 2018-01-18 Out[facility] [id number] Common 14:00:00 14:00:[address] [facility] 2017-09-19 2017-09-19 Outpatient [facility] [id number] Common 09:33:00 09:33:[address] [facility] 2017-09-14 2017-09-14 Outpatient [facility] [id number] Common 13:00:00 13:00:[address] [facility] 2017-09-12 2017-09-12 Outpatient [facility] [id number] Common 11:05:00 11:05:[address] [facility] 2017-08-29 2017-08-29 Outpatient [facility] [id number] Common 15:30:00 15:30:[address] [facility] [address] [facility] Results Test Description Test Time Test Comments Results Result [facility] e Comments US SCROTUM AND 2019-07-06 No evidence for Univ ersity of CONTENTS 7 testicular torsion. [facility] 03:19:48 No definite Branch evidence for epididymo-orchitis. RL: [id number] AFC: [id number] Ordering physician: LUCHO ALFARO INDICATION: Scrotal pain [...] torsion.No definite evidence for epididymo-orchitis. RL: [id number]: [id number] signed by Kristen Valdez MD, PhD at 07/21/2019 9:19 PM
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
[2023-03-07] MEDS ORDERED: TETRACAINE HCL 0.5% 4ML OPTH ONE (22:24)
[2023-03-07] MEDS ORDERED: FLUORESCEIN SODIUM 1 MG/WRAP ONE (22:24)
[2023-03-07 22:48] VITALS: BP 143/95; TEMP 98.2; O2SAT 98
== END 2023-03-07 22:28 | disposition home or self-care (01) ==
LOC: ER 20:53
DX: H53.8 Other visual disturbances (principal); S00.31XA Abrasion of nose, initial encounter; Z88.1 Allergy status to other antibiotic agents; Z88.5 Allergy status to narcotic agent; Z88.8 Allergy status to other drugs, medicaments and biological substances; Z91.040 Latex allergy status; Z91.048 Other nonmedicinal substance allergy status
CPT/HCPCS: 70486; 76377; 99284

== ENCOUNTER 2023-11-25 00:54 | Emergency (ER) | payer OTHER ==
--- OUTSIDE RECORDS SUMMARY | 2023-11-25 01:00 | XMS REPORT | Continuity of Care Document ---
Author Name Unknown Address [address] [facility] [address] [place] [address] [facility] thconnect Address [address] [facility] [address] [place] [address] Care Team Providers Care O And M Supervisor Name Role Phone Unknown, Physician Primary Care Physician Reese Rod Attending Clinician Unavailable Fernanda Lockwood Attending Clinician Unavailable Robbin Carroll MD Attending Clinician [phone] ROBBIN CARROLL Attending Clinician Unavailable INA MIKE Attending Clinician Briana Ina Nolan MD Attending Clinician Lab, Ang - Db Attending Clinician Unavailable CHAD SANTOS Attending Clinician UnavailShania Bloom Attending Clinician [phone] Doctor Unassigned, [place] Attending Clinician U navailable Ajibade_O_AH Attending Clinician Unavailable Ige-Jerica_J_AH Attending Clinician Unavailable Lucho Alfaro NP Attending Clinician LUCHO ALFARO Attending Clinician Unavailable Ajibade_O_AH Admitting Clinician Unavailable Ige-Odunkira_J_AH Admitting Clinician Unavailable LUCHO ALFARO Admitting Clinician Unavailable Payers Payer Name Policy Type Policy Number Effective Date Expirati on Date Source WELLCARE/WELLCA RE [place] [id number] 2021 00:00:00 [facility] Advantage PPO [id number] [facility] [id number] [facility] C1 [id number] [facility] C1 [id number] [facility] [employer] OF [place] (MEDICARE REPLACEMENT/ADV ANTAGE - HMO) [id number] 2019 00:00:00 Problems Condition Name Condition Details Condition Category Status Onset Date Resolution Date Last Treatment Date Treating Clinician Comments Source Acute midline low back pain with bilateral sciatica Acute midline low back pain with bilateral sciatica Disease Active 10-02 00:00: 00 [facility] Medicare annual wellness visit, subsequent Medicare annual wellness visit, subsequent Disease Active 10-02 00:00: 00 [facility] Chronic pain syndrome Chronic pain syndrome Disease Active 07-04 00:00: 00 [facility] Anxiety Anxiety Disease Active 07-04 00:00: 00 [facility] Crohn's disease of both small and large intestine with other complicati on Crohn's disease of both small and large intestine with other complicati on Disease Active 07-04 00:00: 00 [facility] Low HDL (under 40) Low HDL (under 40) Disease Active 07-04 00:00: 00 [facility] Nocturia Nocturia Disease Active 07-04 00:00: 00 [facility] Chronic pancreatit is Chronic pancreatit is Disease Active 2022-06 00:00: 00 [facility] Psoriatic arthritis Psoriatic arthritis Disease Active 2022-06 00:00: 00 [facility] Primary hypertensi on Primary hypertensi on Disease Active 2022-06 00:00: 00 [facility] Other specified glaucoma Other specified glaucoma Disease Active 2022-06 00:00: 00 [facility] Gastroesop hageal reflux disease without esophagiti s Gastroesop hageal reflux disease without esophagiti s Disease Active 2022-06 00:00: 00 [facility] PTSD (post-trau matic stress disorder) PTSD (post-trau matic stress disorder) Disease Active 2022-06 00:00: 00 [facility] No known active problems No known active problems Disease [facility] Total retinal detachment Total retinal detachment , right eye Problem [facility] [id number] Acute upper respirator y infection Problem [facility] [id number] Abnormal blood sugar Problem [facility] [id number] Hyperglyce alex Problem [facility] [id number] Generalize d anxiety disorder Problem [facility] [id number] Diverticul osis Problem [facility] [id number] BPH loc w/o ur obs/LUTS Problem [facility] [id number] Arthropath ic psoriasis Problem [facility] [id number] Crohn''s disease without complicati on, unspecifie d gastrointe stinal tract location Problem [facility] [id number] Chronic fatigue Problem [facility] [id number] Cervical spondylosi s without myelopathy Problem [facility] 31805862 BMI 29.0-29.9, adult Problem [facility] [id number] Nausea Problem [facility] [id number] Lumbar sprain, initial encounter Problem [facility] [id number] Wheezing Problem [facility] [id number] Hospital discharge follow-up Problem [facility] [id number] Acute tonsilliti s, unspecifie d etiology Problem [facility] [id number] Panic disorder with agoraphobi a Problem [facility] [id number] Asymptomat ic microscopi c hematuria Problem [facility] 75780539 Constipati on, unspecifie d constipati on type Problem [facility] [id number] Carotid artery disease, unspecifie d laterality , unspecifie d type Problem [facility] [id number] Right epididymit is Problem [facility] [id number] Prostate nodule Problem [facility] [id number] 9104 Narcolepsy without cataplexy Problem [facility] 54138549 Pelvic pain Problem [facility] 58842709 Disc disorder Problem [facility] [id number] Perineal pain Problem [facility] 92198557 Scrotum pain Problem [facility] [id number] BPH loc w urin obs/LUTS Problem [facility] 27606614 Chronic prostatiti s Problem [facility] Allergies, Adverse Reactions, Alerts Allergy Name Allergy Type Status Severity Reaction(s) Onset Date Inactive Date Treating Clinician Comments Source Sulfamet hoxazole Allergy to substanc e Active 07-18 00:00: 00 Other reaction( s): SWEL[facility] Trimetho prim Allergy to substanc e Active 07-18 00:00: 00 Other reaction( s): SWEL[facility] Vancomyc in Allergy to substanc e Active 07-18 00:00: 00 Other reaction( s): [facility] Ketorola c Allergy to substanc e Active 07-18 00:00: 00 Other reaction( s): [facility] Trimetho prim Drug Allergy Active Other - See comments 07-18 00:00: 00 Other reaction( s): CHATA [facility] Vancomyc in Drug Allergy Active Other - See comments - 00:00: 00 Other reaction( s): Unknown [facility] TRIMETHO PRIM DRUG INGREDI Active Other-Cmnt 2- 00:00: [address] [facility] VANCOMYC IN DRUG INGREDI Active Other-Cmnt 2 00:00: 00 [facility] PROMETHA ZINE DRUG INGREDI Active Other-Cmnt 06-27 00:00: 00 [facility] CEPHALEX IN DRUG INGREDI Active Low Rash 06-27 00:00: 00 [facility] SULFAMET HOXAZOLE -TRIMETH OPRIM DRUG Active Low Rash 06-27 00:00: 00 [facility] Cephalex in Drug Allergy Active Rash 06-27 00:00: 00 Other reaction( s): rash, SWELLING [facility] Prometha zine Drug Allergy Active Other - See comments 06-27 00:00: 00 Other reaction( s): hives, hives, SWELLING [facility] Prometha zine Allergy to substanc e Active 06-27 00:00: 00 Other reaction( s): hives, hives, SWELLING [facility] Sulfamet hoxazole -Trimeth oprim Allergy to substanc e Active Rash 06-27 00:00: 00 Other reaction( s): rash [facility] Cephalex in Allergy to substanc e Active Rash 06-27 00:00: 00 Other reaction( s): rash, SWELLING [facility] Sulfamet hoxazole -Trimeth oprim Drug Allergy Active Rash 06-27 00:00: 00 Other reaction( s): rash [facility] Iodides Propensi ty to adverse reaction s Active Hives 12-06 00:00: 00 [facility] Latex Propensi ty to adverse reaction s Active Rash 12-06 00:00: 00 [facility] Levoflox acin Propensi ty to adverse reaction s Active Anaphylaxis 12-06 00:00: 00 [facility] Ketorola c Trometha mine Propensi ty to adverse reaction s Active Other - See comments 12-06 00:00: 00 Pin needle pains to stomach [facility] IODIDES DRUG Active Hives 12-06 00:00: 00 [facility] LATEX DRUG INGREDI Active Rash 12-06 00:00: 00 [facility] LEVOFLOX ACIN DRUG INGREDI Active Anaphylaxis 12-06 00:00: [address] [facility] KETOROLA C TROMETHA MINE DRUG INGREDI Active Other-Cmnt 12-06 00:00: 00 [facility] Ketorola c Trometha mine Allergy to substanc e Active 12-06 00:00: 00 Other reaction( s): Other - See comments, SWELLINGP in needle pains to stomach [facility] Latex Allergy to substanc e Active Rash 12-06 00:00: 00 [facility] Iodides Allergy to substanc e Active Hives 12-06 00:00: 00 Other reaction( s): Unknown [facility] Iodides Allergy to substanc e Active Hives 12-06 00:00: 00 Other reaction( s): Unknown [facility] Levoflox acin Allergy to substanc e Active Anaphylaxis 2013-06 00:00: 00 Other reaction( s): stops breathing , SWELLING, Unknown [facility] 8091 Drug allergy Active rash [facility] 77547 Drug allergy Active stops breathing [facility] Social History Social Habit Start Date Stop Date Quantity Comments Source [facility] of Tobacco Use [facility] Alcohol intake 2023-10-03 00:00:00 2023-10-03 00:00:00 Ex-drinker (finding) [facility] History of Social function 2023-10-03 00:00:00 2023-10-03 00:00:00 [facility] Tobacco use and exposure 2023-04-12 00:00:00 2023-04-12 00:00:00 Smokeless tobacco non-user [facility] Exposure to SARS-CoV-2 (event) 2022-05-02 00:00:00 2022-05-12 11:32:00 Not sure [facility] Sex Assigned At 1960 00:00:00 1960 [facility] Smoking Status Start Date Stop Date Source Tobacco smoking consumption unknown [facility] Never smoked tobacco [facility] Former Smoker 2022-08-30 00:00:00 2022-08-30 00:00:00 [facility] Medications Ordered Medication Name Filled Medication Name Start Date Stop Date Current Medication? Ordering Clinician Indication Dosage Frequency Signature (SIG) Comments Components Source DULoxetine 30 mg capsule 10-02 00:00: 00 Yes [id number] 30mg Take 1 capsule by mouth in the morning. [facility] carvediloL 25 mg tablet 10-02 00:00: 00 Yes [id number] 25mg Take 1 tablet by mouth in the morning and 1 tablet in the evening. Take with meals. [facility] Amylase-Lip ase-Proteas e (CREON) 24,000-76,0 00 -120,000 unit capsule 10-02 00:00: 00 Yes [id number] 15767Q Take 1 capsule by mouth in the morning and 1 capsule at noon and 1 capsule in the evening. Take with meals. [facility] pantoprazol e 40 mg EC tablet 10-02 00:00: 00 Yes [id number] 40mg Take 1 tablet by mouth in the morning. [facility] ondansetron 4 mg tablet 10-02 00:00: 00 Yes [id number] 4mg Take 1 tablet by mouth every 6 (six) hours as needed for Nausea and Vomiting (N/V). [facility] albuterol (VENTOLIN HFA) 90 mcg/actuati on inhaler 07-04 14:23: 05 07-04 00:00 :00 No 2{puff} Inhale 2 Puffs every 6 (six) hours as needed for Wheezing or Shortness of Breath. [facility] albuterol 90 mcg/actuati on inhaler 07-04 14:22: 58 07-04 00:00 :00 No 2{puff} Inhale 2 Puffs every 6 (six) hours as needed for Wheezing or Shortness of Breath. [facility] Amylase-Lip ase-Proteas e (CREON) 24,000-76,0 00 -120,000 unit capsule 07-04 14:22: 27 07-04 00:00 :00 No [id number] Take 1 capsule by mouth in the morning and 1 capsule at noon and 1 capsule in the evening. Take with meals. [facility] carvediloL 25 mg tablet 07-04 00:00: 00 10-02 00:00 :00 No [id number] 25mg Take 1 tablet by mouth in the morning and 1 tablet in the evening. Take with meals. [facility] DULoxetine 30 mg capsule 07-04 00:00: 00 10-02 00:00 :00 No [id number] 30mg Take 1 capsule by mouth in the morning. [facility] pantoprazol e 40 mg EC tablet 07-04 00:00: 00 10-02 00:00 :00 No [id number] 40mg Take 1 tablet by mouth in the morning. [facility] ondansetron 4 mg tablet 07-04 00:00: 00 10-02 00:00 :00 No [id number] 4mg Take 1 tablet by mouth every 6 (six) hours as needed for Nausea and Vomiting (N/V). [facility] Amylase-Lip ase-Proteas e (CREON) 24,000-76,0 00 -120,000 unit capsule 07-04 00:00: 00 10-02 00:00 :00 No [id number] Take 1 capsule by mouth in the morning and 1 capsule at noon and 1 capsule in the evening. Take with meals. [facility] carvedilol (COREG) 25 mg tablet 2022-06 15:04: 39 04-12 00:00 :00 No 25mg Take 1 tablet by mouth in the morning and 1 tablet in the evening. Take with meals. [facility] predniSONE 20 mg tablet 2022-06 14:43: 26 04-12 00:00 :00 No 20mg Take 1 tablet by mouth in the morning. [facility] Amylase-Lip ase-Proteas e (CREON) 24,000-76,0 00 -120,000 unit capsule 2022-06 14:26: 48 Yes [id number] Take 1 capsule by mouth in the morning and 1 capsule at noon and 1 capsule in the evening. Take with meals. [facility] albuterol 90 mcg/actuati on inhaler 2022-06 14:26: 48 Yes 2{puff} Inhale 2 Puffs every 6 (six) hours as needed for Wheezing or Shortness of Breath. [facility] blood sugar diagnostic (ONE TOUCH TEST MISC) 2022-06 14:26: 48 Yes One touch ultra blue test strip [facility] HYDROcodone -acetaminop hen (NORCO) 7.5-325 mg per tablet 2022-06 14:22: 42 04-12 00:00 :00 No 1{tbl} Take 1 Tab by mouth every 6 (six) hours as needed for Pain. [facility] LIPASE/PROT EASE/AMYLAS E (CREON 10 ORAL) 2022-06 14:22: 42 04-12 00:00 :00 No Take by mouth. [facility] DULoxetine 30 mg capsule 2022-06 00:00: 00 07-04 00:00 :00 No [id number] 30mg Take 1 capsule by mouth in the morning. [facility] carvediloL 25 mg tablet 2022-06 00:00: 00 07-04 00:00 :00 No [id number] 25mg Take 1 tablet by mouth in the morning and 1 tablet in the evening. Take with meals. [facility] ondansetron 4 mg tablet -12 00:00: 00 07-04 00:00 :00 No 4mg Take 1 tablet by mouth every 6 (six) hours as needed for Nausea and Vomiting (N/V). [facility] clonazePAM 1 mg tablet 02-14 00:00: 00 04-12 00:00 :00 No 1mg Take 1 tablet by mouth 2 (two) times daily as needed. [facility] gabapentin 300 mg capsule 02-07 00:00: 00 Yes TAKE 1 CAPSULE TWICE A DAY FOR 28 DAY(S) [facility] pantoprazol e 40 mg EC tablet 12-10 00:00: 00 07-04 00:00 :00 No 40mg Take 1 tablet by mouth in the morning. [facility] clonazePAM 0.5 MG clonazePAM 0.5 MG 09-02 00:00: 00 No QD clonazePAM 0.5 MG clonazePAM 0.5 MG clonazePAM 0.5 MG 09-02 00:00: 00 No QD clonazePAM 0.5 MG clonazePAM 0.5 MG clonazePAM 0.5 MG 09-02 00:00: 00 No QD clonazePAM 0.5 MG clonazePAM 0.5 MG clonazePAM 0.5 MG 09-02 00:00: 00 No QD clonazePAM 0.5 MG clonazePAM 0.5 MG clonazePAM 0.5 MG 09-02 00:00: 00 No QD clonazePAM 0.5 MG clonazePAM 0.5 MG clonazePAM 0.5 MG 09-02 00:00: 00 No QD clonazePAM 0.5 MG Combigan 0.2-0.5 % Combigan 0.2-0.5 % 2021-06 00:00: 00 No 1{drop_ into_af fected_ eye} BID Combigan 0.2-0.5 % clonazePAM 1 MG clonazePAM 1 MG 2021-06 00:00: 00 No QD clonazePAM 1 MG Combigan 0.2-0.5 % Combigan 0.2-0.5 % 2021-06 00:00: 00 No 1{drop_ into_af fected_ eye} BID Combigan 0.2-0.5 % clonazePAM 1 MG clonazePAM 1 MG 2021-06 00:00: 00 No QD clonazePAM 1 MG clonazePAM 1 MG clonazePAM 1 MG 2021-0 - 00:00: 00 No QD clonazePAM 1 MG clonazePAM 1 MG clonazePAM 1 MG 2-0 - 00:00: 00 No QD clonazePAM 1 MG clonazePAM 1 MG clonazePAM 1 MG 2021-0 - 00:00: 00 No QD clonazePAM 1 MG clonazePAM 1 MG clonazePAM 1 MG 2-0 - 00:00: 00 No QD clonazePAM 1 MG clonazePAM 1 MG clonazePAM 1 MG 2021-0 - 00:00: 00 No QD clonazePAM 1 MG clonazePAM 1 MG clonazePAM 1 MG 2021-0 12-07 00:00: 00 No QD clonazePAM 1 MG clonazePAM 1 MG clonazePAM 1 MG 2020-0 02-23 00:00: 00 No BID clonazePAM 1 MG Flomax 0.4 MG Flomax 0.4 MG 2020-0 12-24 00:00: 00 07-21 00:00 :00 No 1{capsu le} QD Flomax 0.4 MG Zofran 4 MG Zofran 4 MG 2020-0 -14 00:00: 00 No BID Zofran 4 MG Zofran 4 MG Zofran 4 MG 2020-0 5-14 00:00: 00 No BID Zofran 4 MG Zofran 4 MG Zofran 4 MG 2020-0 5-14 00:00: 00 No BID Zofran 4 MG Zofran 4 MG Zofran 4 MG 2020-0 5-14 00:00: 00 No BID Zofran 4 MG Zofran 4 MG Zofran 4 MG 2020-0 5-14 00:00: 00 No BID Zofran 4 MG Zofran 4 MG Zofran 4 MG 2020-0 5-14 00:00: 00 No BID Zofran 4 MG Zofran 4 MG Zofran 4 MG 2020-0 5-14 00:00: 00 No BID Zofran 4 MG Zofran 4 MG Zofran 4 MG 2020-0 5-14 00:00: 00 No BID Zofran 4 MG acyclovir 5 % ointment 0 2-16 00:00: 00 - 00:00 :00 No [id number] Apply to area(s) 5 (five) times daily. [facility] Aspirin 81 Aspirin 81 09-14 00:00: 00 Yes Esthela Dunham 1 tablet [facility] Aspirin 81 81 MG Aspirin 81 81 MG 09-14 00:00: 00 No 1{table t} QD Aspirin 81 81 MG Aspirin 81 81 MG Aspirin 81 81 MG 09-14 00:00: 00 No 1{table t} QD Aspirin 81 81 MG Aspirin 81 81 MG Aspirin 81 81 MG 09-14 00:00: 00 No 1{table t} QD Aspirin 81 81 MG Aspirin 81 81 MG Aspirin 81 81 MG 09-14 00:00: 00 No 1{table t} QD Aspirin 81 81 MG Aspirin 81 81 MG Aspirin 81 81 MG 09-14 00:00: 00 No 1{table t} QD Aspirin 81 81 MG Aspirin 81 81 MG Aspirin 81 81 MG 09-14 00:00: 00 No 1{table t} QD Aspirin 81 81 MG Aspirin 81 81 MG Aspirin 81 81 MG 09-14 00:00: 00 No 1{table t} QD Aspirin 81 81 MG Aspirin 81 81 MG Aspirin 81 81 MG 09-14 00:00: 00 No 1{table t} QD Aspirin 81 81 MG Aspirin 81 81 MG Aspirin 81 81 MG 09-14 00:00: 00 No 1{table t} QD Aspirin 81 81 MG Aspirin 81 81 MG Aspirin 81 81 MG 09-14 00:00: 00 No 1{table t} QD Aspirin 81 81 MG Aspirin 81 81 MG Aspirin 81 81 MG 09-14 00:00: 00 No 1{table t} QD Aspirin 81 81 MG Aspirin 81 81 MG Aspirin 81 81 MG 09-14 00:00: 00 No 1{table t} QD Aspirin 81 81 MG Aspirin 81 81 MG Aspirin 81 81 MG 09-14 00:00: 00 No 1{table t} QD Aspirin 81 81 MG Aspirin 81 81 MG Aspirin 81 81 MG 09-14 00:00: 00 No 1{table t} QD Aspirin 81 81 MG Albuterol Sulfate HFA Albuterol Sulfate HFA 2014-06 00:00: 00 Yes Esthela Dunham 1 puff [facility] Albuterol Sulfate HFA 108 (90 Base) MCG/ACT Albuterol Sulfate HFA 108 (90 Base) MCG/ACT 2014-06 00:00: 00 No 1{puff} QID Albuterol Sulfate HFA 108 (90 Base) MCG/ACT Albuterol Sulfate HFA 108 (90 Base) MCG/ACT Albuterol Sulfate HFA 108 (90 Base) MCG/ACT 2014-06 00:00: 00 No 1{puff} QID Albuterol Sulfate HFA 108 (90 Base) MCG/ACT Albuterol Sulfate HFA 108 (90 Base) MCG/ACT Albuterol Sulfate HFA 108 (90 Base) MCG/ACT 2014-06 00:00: 00 No 1{puff} QID Albuterol Sulfate HFA 108 (90 Base) MCG/ACT HYDROcodone -acetaminop hen (NORCO) 7.5-325 mg per tablet 12-06 06:42: 52 Yes 1{tbl} Take 1 Tab by mouth every 6 (six) hours as needed for Pain. [facility] LIPASE/PROT EASE/AMYLAS E (CREON 10 ORAL) 12-06 06:42: 52 Yes Take by mouth. [facility] carvedilol (COREG) 25 mg tablet 12-06 06:42: 52 Yes 25mg Take 25 mg by mouth 2 (two) times daily with meals. [facility] metroNIDAZO LE (FLAGYL) 500 mg tablet 12-06 00:00: 00 04-12 00:00 :00 No 500mg Take 1 Tab by mouth 2 (two) times daily. [facility] proMETHazin e (PHENERGAN) 25 mg tablet 12-06 00:00: 00 04-12 00:00 :00 No 25mg Take 1 Tab by mouth every 6 (six) hours as needed for Nausea and Vomiting (N/V). [facility] Clonazepam Clonazepam Yes Esthela Halifax TAKE 1 TABLET BY MOUTH TWICE A DAY [facility] Carvedilol Carvedilol Yes Esthela Halifax take 1 tablet by mouth twice a day [facility] Famotidine Famotidine Yes Esthela Halifax 1 tablet at bedtime [facility] Protonix Protonix Yes Esthela Halifax 1 tablet [facility] Dicyclomine HCl Dicyclomine HCl Yes Esthela Halifax 1 tablet [facility] Ventolin HFA Ventolin HFA Yes Esthela Halifax 2 puffs [facility] Valsartan Valsartan Yes Esthela Halifax 1 tablet [facility] Hydrocodone -Acetaminop hen Hydrocodone -Acetaminop hen Yes Esthela Halifax (Schedule II Drug) TK 1 T PO TID [facility] Dicyclomine HCl 20 MG Dicyclomine HCl 20 MG No 1{table t} QID Dicyclomin e HCl 20 MG OneTouch Ultra - OneTouch Ultra - No OneTouch Ultra - Lactulose 10 GM/15ML Lactulose 10 GM/15ML No 15{ml} Lactulose 10 GM/15ML OneTouch Delica Plus [id number] - OneTouch Delica Plus [id number] - No OneTouch Delica Plus [id number] - Famotidine 20 MG Famotidine 20 MG No 1{table t_at_be dtime} BID Famotidine 20 MG Protonix 40 MG Protonix 40 MG No 1{table t} QD Protonix 40 MG Ventolin HFA 108 (90 Base) MCG/ACT Ventolin HFA 108 (90 Base) MCG/ACT No 2{puffs } Ventolin HFA 108 (90 Base) MCG/ACT Famotidine 20 MG Famotidine 20 MG No 1{table t_at_be dtime} BID Famotidine 20 MG Dicyclomine HCl 20 MG Dicyclomine HCl 20 MG No 1{table t} QID Dicyclomin e HCl 20 MG Lactulose 10 GM/15ML Lactulose 10 GM/15ML No 15{ml} Lactulose 10 GM/15ML OneTouch Delica Plus [id number] - OneTouch Delica Plus [id number] - No OneTouch Delica Plus [id number] - Protonix 40 MG Protonix 40 MG No 1{table t} QD Protonix 40 MG OneTouch Ultra - OneTouch Ultra - No OneTouch Ultra - Ventolin HFA 108 (90 Base) MCG/ACT Ventolin HFA 108 (90 Base) MCG/ACT No 2{puffs } Ventolin HFA 108 (90 Base) MCG/ACT Protonix 40 MG Protonix 40 MG No 1{table t} QD Protonix 40 MG OneTouch Delica Plus [id number] - OneTouch Delica Plus [id number] - No OneTouch Delica Plus [id number] - Albuterol Sulfate HFA 108 (90 Base) MCG/ACT Albuterol Sulfate HFA 108 (90 Base) MCG/ACT No Albuterol Sulfate HFA 108 (90 Base) MCG/ACT Famotidine 20 MG Famotidine 20 MG No 1{table t_at_be dtime} BID Famotidine 20 MG Dicyclomine HCl 20 MG Dicyclomine HCl 20 MG No 1{table t} QID Dicyclomin e HCl 20 MG Lactulose 10 GM/15ML Lactulose 10 GM/15ML No 15{ml} Lactulose 10 GM/15ML OneTouch Ultra - OneTouch Ultra - No OneTouch Ultra - Protonix 40 MG Protonix 40 MG No 1{table t} QD Protonix 40 MG OneTouch Delica Plus [id number] - OneTouch Delica Plus [id number] - No OneTouch Delica Plus [id number] - Albuterol Sulfate HFA 108 (90 Base) MCG/ACT Albuterol Sulfate HFA 108 (90 Base) MCG/ACT No Albuterol Sulfate HFA 108 (90 Base) MCG/ACT Famotidine 20 MG Famotidine 20 MG No 1{table t_at_be dtime} BID Famotidine 20 MG Dicyclomine HCl 20 MG Dicyclomine HCl 20 MG No 1{table t} QID Dicyclomin e HCl 20 MG Lactulose 10 GM/15ML Lactulose 10 GM/15ML No 15{ml} Lactulose 10 GM/15ML OneTouch Ultra - OneTouch Ultra - No OneTouch Ultra - Protonix 40 MG Protonix 40 MG No 1{table t} QD Protonix 40 MG OneTouch Delica Plus [id number] - OneTouch Delica Plus [id number] - No OneTouch Delica Plus [id number] - Famotidine 20 MG Famotidine 20 MG No 1{table t_at_be dtime} BID Famotidine 20 MG Dicyclomine HCl 20 MG Dicyclomine HCl 20 MG No 1{table t} QID Dicyclomin e HCl 20 MG Lactulose 10 GM/15ML Lactulose 10 GM/15ML No 15{ml} Lactulose 10 GM/15ML OneTouch Ultra - OneTouch Ultra - No OneTouch Ultra - Protonix 40 MG Protonix 40 MG No 1{table t} QD Protonix 40 MG OneTouch Delica Plus [id number] - OneTouch Delica Plus [id number] - No OneTouch Delica Plus [id number] - Famotidine 20 MG Famotidine 20 MG No 1{table t_at_be dtime} BID Famotidine 20 MG Dicyclomine HCl 20 MG Dicyclomine HCl 20 MG No 1{table t} QID Dicyclomin e HCl 20 MG Lactulose 10 GM/15ML Lactulose 10 GM/15ML No 15{ml} Lactulose 10 GM/15ML OneTouch Ultra - OneTouch Ultra - No OneTouch Ultra - Famotidine 20 MG Famotidine 20 MG No 1{table t_at_be dtime} BID Famotidine 20 MG Ventolin HFA 108 (90 Base) MCG/ACT Ventolin HFA 108 (90 Base) MCG/ACT No 2{puffs } Ventolin HFA 108 (90 Base) MCG/ACT OneTouch Ultra - OneTouch Ultra - No OneTouch Ultra - Lactulose 10 GM/15ML Lactulose 10 GM/15ML No 15{ml} Lactulose 10 GM/15ML Dicyclomine HCl 20 MG Dicyclomine HCl 20 MG No 1{table t} QID Dicyclomin e HCl 20 MG Protonix 40 MG Protonix 40 MG No 1{table t} QD Protonix 40 MG OneTouch Delica Plus [id number] - OneTouch Delica Plus [id number] - No OneTouch Delica Plus [id number] - Famotidine 20 MG Famotidine 20 MG No 1{table t_at_be dtime} BID Famotidine 20 MG Ventolin HFA 108 (90 Base) MCG/ACT Ventolin HFA 108 (90 Base) MCG/ACT No 2{puffs } Ventolin HFA 108 (90 Base) MCG/ACT OneTouch Ultra - OneTouch Ultra - No OneTouch Ultra - Lactulose 10 GM/15ML Lactulose 10 GM/15ML No 15{ml} Lactulose 10 GM/15ML Dicyclomine HCl 20 MG Dicyclomine HCl 20 MG No 1{table t} QID Dicyclomin e HCl 20 MG Protonix 40 MG Protonix 40 MG No 1{table t} QD Protonix 40 MG OneTouch Delica Plus [id number] - OneTouch Delica Plus Trhmga01S - No OneTouch Delica Plus Puymby00M - Ventolin HFA 108 (90 Base) MCG/ACT Ventolin HFA 108 (90 Base) MCG/ACT No 2{puffs } Ventolin HFA 108 (90 Base) MCG/ACT Carvedilol 25 MG Carvedilol 25 MG No 1{table t_with_ food} BID Carvedilol 25 MG OneTouch Ultra - OneTouch Ultra - No OneTouch Ultra - OneTouch Delica Plus Dpuwqi68T - OneTouch Delica Plus Gpjofs07M - No OneTouch Delica Plus [id number] - Protonix 40 MG Protonix 40 MG No 1{table t} QD Protonix 40 MG Ventolin HFA 108 (90 Base) MCG/ACT Ventolin HFA 108 (90 Base) MCG/ACT No 2{puffs } Ventolin HFA 108 (90 Base) MCG/ACT Carvedilol 25 MG Carvedilol 25 MG No 1{table t_with_ food} BID Carvedilol 25 MG OneTouch Ultra - OneTouch Ultra - No OneTouch Ultra - OneTouch Delica Plus Nmgzuo06R - OneTouch Delica Plus Zfheww85W - No OneTouch Delica Plus Bxxpve79I - Protonix 40 MG Protonix 40 MG No 1{table t} QD Protonix 40 MG Ventolin HFA 108 (90 Base) MCG/ACT Ventolin HFA 108 (90 Base) MCG/ACT No 2{puffs } Ventolin HFA 108 (90 Base) MCG/ACT Carvedilol 25 MG Carvedilol 25 MG No 1{table t_with_ food} BID Carvedilol 25 MG OneTouch Ultra - OneTouch Ultra - No OneTouch Ultra - OneTouch Delica Plus Vlrzrr44G - OneTouch Delica Plus Zpgohl71Z - No OneTouch Delica Plus Iapghr00F - Protonix 40 MG Protonix 40 MG No 1{table t} QD Protonix 40 MG Ventolin HFA 108 (90 Base) MCG/ACT Ventolin HFA 108 (90 Base) MCG/ACT No 2{puffs } Ventolin HFA 108 (90 Base) MCG/ACT Carvedilol 25 MG Carvedilol 25 MG No 1{table t_with_ food} BID Carvedilol 25 MG Brimonidine Tartrate-Ti molol 0.2-0.5 % Brimonidine Tartrate-Ti molol 0.2-0.5 % No Brimonidin e Tartrate-T imolol 0.2-0.5 % OneTouch Ultra - OneTouch Ultra - No OneTouch Ultra - OneTouch Delica Plus Xxvwqk79G - OneTouch Delica Plus Dwmasq89O - No OneTouch Delica Plus Iioble02O - HYDROcodone -Acetaminop hen 10-325 MG HYDROcodone -Acetaminop hen 10-325 MG No HYDROcodon e-Acetamin ophen 10-325 MG Protonix 40 MG Protonix 40 MG No 1{table t} QD Protonix 40 MG Ventolin HFA 108 (90 Base) MCG/ACT Ventolin HFA 108 (90 Base) MCG/ACT No 2{puffs } Ventolin HFA 108 (90 Base) MCG/ACT Carvedilol 25 MG Carvedilol 25 MG No 1{table t_with_ food} BID Carvedilol 25 MG Brimonidine Tartrate-Ti molol 0.2-0.5 % Brimonidine Tartrate-Ti molol 0.2-0.5 % No Brimonidin e Tartrate-T imolol 0.2-0.5 % OneTouch Ultra - OneTouch Ultra - No OneTouch Ultra - OneTouch Delica Plus Aujshk40R - OneTouch Delica Plus Wblcdj20L - No OneTouch Delica Plus Ivzbgd19D - Albuterol Sulfate HFA 108 (90 Base) MCG/ACT Albuterol Sulfate HFA 108 (90 Base) MCG/ACT No Albuterol Sulfate HFA 108 (90 Base) MCG/ACT HYDROcodone -Acetaminop hen 10-325 MG HYDROcodone -Acetaminop hen 10-325 MG No HYDROcodon e-Acetamin ophen 10-325 MG Protonix 40 MG Protonix 40 MG No 1{table t} QD Protonix 40 MG Ventolin HFA 108 (90 Base) MCG/ACT Ventolin HFA 108 (90 Base) MCG/ACT No 2{puffs } Ventolin HFA 108 (90 Base) MCG/ACT Carvedilol 25 MG Carvedilol 25 MG No 1{table t_with_ food} BID Carvedilol 25 MG Brimonidine Tartrate-Ti molol 0.2-0.5 % Brimonidine Tartrate-Ti molol 0.2-0.5 % No Brimonidin e Tartrate-T imolol 0.2-0.5 % OneTouch Ultra - OneTouch Ultra - No OneTouch Ultra - OneTouch Delica Plus Gbqigt83P - OneTouch Delica Plus Eztepr79N - No OneTouch Delica Plus Sxicrm48G - Albuterol Sulfate HFA 108 (90 Base) MCG/ACT Albuterol Sulfate HFA 108 (90 Base) MCG/ACT No Albuterol Sulfate HFA 108 (90 Base) MCG/ACT HYDROcodone -Acetaminop hen 10-325 MG HYDROcodone -Acetaminop hen 10-325 MG No HYDROcodon e-Acetamin ophen 10-325 MG Protonix 40 MG Protonix 40 MG No 1{table t} QD Protonix 40 MG Creon Creon 12-23 00:00 :00 No Esthela Dunham take by mouth 1 capsule 3 times a day as directed [facility] Vital Signs Vital Name Observation Time Observation Value Comments S jaguarfred Systolic blood pressure 2023-10-03 21:46:00 142 mm[Hg] [facility] Diastolic blood pressure 2023-10-03 21:46:00 92 mm[Hg] [facility] Heart rate 2023-10-03 21:46:00 86 /min [facility] Oxygen saturation in Arterial blood by Pulse oximetry 2023-10-03 21:46:00 96 /min [facility] Systolic blood pressure 2023-10-03 21:03:00 142 mm[Hg] [facility] Diastolic blood pressure 2023-10-03 21:03:00 92 mm[Hg] [facility] Heart rate 2023-10-03 21:03:00 86 /min [facility] Body height 2023-10-03 21:03:00 177.8 cm [facility] 2023-10-03 21:03:00 99.202 kg [facility] BMI 2023-10-03 21:03:00 31.38 kg/m2 [facility] Systolic blood pressure 2023-07-04 20:00:00 142 mm[Hg] [facility] Diastolic blood pressure 2023-07-04 20:00:00 84 mm[Hg] [facility] Heart rate 2023-07-04 19:59:00 58 /min Un[facility] Body temperature 2023-07-04 19:59:00 36.11 Jing [facility] Respiratory rate 2023-07-04 19:59:00 17 /min [facility] Body height 2023-07-04 19:59:00 175.3 cm [facility] Body weight 2023-07-04 19:59:00 99.973 kg [facility] BMI 2023-07-04 19:59:00 32.55 kg/m2 [facility] Oxygen saturation in Arterial blood by Pulse oximetry 2023-07-04 19:59:00 97 /min [facility] Systolic blood pressure 2023-04-12 20:19:00 149 mm[Hg] [facility] Diastolic blood pressure 2023-04-12 20:19:00 90 mm[Hg] [facility] Heart rate 2023-04-12 18:55:00 55 /min [facility] Respiratory rate 2023-04-12 18:55:00 18 /min [facility] Body height 2023-04-12 18:55:00 177.8 cm [facility] Body weight 2023-04-12 18:55:00 99.202 kg [facility] BMI 2023-04-12 18:55:00 31.38 kg/m2 [facility] Oxygen saturation in Arterial blood by Pulse oximetry 2023-04-12 18:55:00 98 /min [facility] height 2022-08-30 15:20:00 70 [in_i] Commo n [facility] weight 2022-08-30 15:20:00 216.2 [lb_av] Co on [facility] temperature 2022-08-30 15:20:00 97.2 [degF] Com [facility] bmi 2022-08-30 15:20:00 31.02 kg/m2 Comm on [facility] oximetry 2022-08-30 15:20:00 96 % Commo n [facility] respiratory rate 2022-08-30 15:20:00 17 /min [facility] blood pressure systolic 2022-08-30 15:20:00 134 mm[Hg] [facility] blood pressure diastolic 2022-08-30 15:20:00 80 mm[Hg] [facility] height 2022-04-11 15:40:00 70 [in_i] Commo n [facility] weight 2022-04-11 15:40:00 206.9 [lb_av] Co mmon [facility] temperature 2022-04-11 15:40:00 97.6 [degF] Com [facility] bmi 2022-04-11 15:40:00 29.68 kg/m2 Comm on [facility] oximetry 2022-04-11 15:40:00 98 % Commo n [facility] respiratory rate 2022-04-11 15:40:00 18 /min Common [facility] blood pressure systolic 2022-04-11 15:40:00 138 mm[Hg] [facility] blood pressure diastolic 2022-04-11 15:40:00 72 mm[Hg] [facility] height 2022-02-09 13:50:00 70 [in_i] Commo n [facility] weight 2022-02-09 13:50:00 207 [lb_av] Comm on [facility] temperature 2022-02-09 13:50:00 97.9 [degF] Com mon [facility] bmi 2022-02-09 13:50:00 29.7 kg/m2 Commo n [facility] oximetry 2022-02-09 13:50:00 96 % Commo n [facility] respiratory rate 2022-02-09 13:50:00 18 /min [facility] blood pressure systolic 2022-02-09 13:50:00 132 mm[Hg] [facility] blood pressure diastolic 2022-02-09 13:50:00 70 mm[Hg] [facility] height 2021-12-07 09:20:00 70 [in_i] Commo n [facility] weight 2021-12-07 09:20:00 206.0 [lb_av] Co mmon [facility] temperature 2021-12-07 09:20:00 98.2 [degF] Com [facility] bmi 2021-12-07 09:20:00 29.55 kg/m2 Comm on [facility] oximetry 2021-12-07 09:20:00 99 % Commo n [facility] respiratory rate 2021-12-07 09:20:00 18 /min Common [facility] blood pressure systolic 2021-12-07 09:20:00 137 mm[Hg] [facility] blood pressure diastolic 2021-12-07 09:20:00 70 mm[Hg] [facility] height 2021-02-23 14:30:00 70 [in_i] Commo n [facility] weight 2021-02-23 14:30:00 190.0 [lb_av] Co mmon [facility] temperature 2021-02-23 14:30:00 98.3 [degF] Com mon [facility] bmi 2021-02-23 14:30:00 27.26 kg/m2 Comm on [facility] blood pressure systolic 2021-02-23 14:30:00 138 mm[Hg] [facility] blood pressure diastolic 2021-02-23 14:30:00 74 mm[Hg] Common [facility] Systolic blood pressure 2020-12-28 20:04:00 155 mm[Hg] [facility] Diastolic blood pressure 2020-12-28 20:04:00 82 mm[Hg] [facility] Heart rate 2020-12-28 20:04:00 61 /min Un[facility] Body temperature 2020-12-28 20:04:00 36.67 Jing [facility] Respiratory rate 2020-12-28 20:04:00 16 /min [facility] Body height 2020-12-28 20:04:00 177.8 cm [facility] Body weight 2020-12-28 20:04:00 86.183 kg [facility] BMI 2020-12-28 20:04:00 27.26 kg/m2 [facility] Oxygen saturation in Arterial blood by Pulse oximetry 2020-12-28 20:04:00 97 /min [facility] Systolic blood pressure 2019-07-22 04:00:00 147 mm[Hg] [facility] Diastolic blood pressure 2019-07-22 04:00:00 87 mm[Hg] [facility] Heart rate 2019-07-22 04:00:00 54 /min Un[facility] Respiratory rate 2019-07-22 04:00:00 20 /min [facility] Oxygen saturation in Arterial blood by Pulse oximetry 2019-07-22 04:00:00 99 /min [facility] Body temperature 2019-07-21 23:21:00 37 Jing [facility] Body weight 2019-07-21 23:21:00 86.183 kg [facility] BMI 2019-07-21 23:21:00 27.26 kg/m2 [facility] Systolic blood pressure 2019-07-22 04:00:00 147 mm[Hg] [facility] Diastolic blood pressure 2019-07-22 04:00:00 87 mm[Hg] [facility] Heart rate 2019-07-22 04:00:00 54 /min [facility] Respiratory rate 2019-07-22 04:00:00 20 /min [facility] Oxygen saturation in Arterial blood by Pulse oximetry 2019-07-22 04:00:00 99 /min [facility] Body temperature 2019-07-21 23:21:00 37 [facility] Body weight 2019-07-21 23:21:00 86.183 kg [facility] BMI 2019-07-21 23:21:00 27.26 kg/m2 [facility] Procedures Procedure Date / Time Performed Performing Clinicia n Source NOTICE OF PRIVACY PRACTICES 2020-12-28 19:58:01 Doctor Unassigned, [place] [facility] CONSENT/REFUSAL FOR DIAGNOSIS AND TREATMENT 2020-12-28 19:57:10 Doctor Unassigned, [place] [facility] US SCROTUM AND CONTENTS 2019-07-22 03:08:48 Lucho Alfaro [facility] NOTICE OF PRIVACY PRACTICES 2019-07-21 23:12:14 Doctor Unassigned, [place] [facility] CONSENT/REFUSAL FOR DIAGNOSIS AND TREATMENT 2019-07-21 23:07:41 Doctor Unassigned, [place] [facility] Encounters Start Date/Time End Date/Time Encounter Type Admission Type Attending Clinicians Care Facility Care Department Encounter ID Source 2023-01-11 16:27:00 [facility] [id number] [facility] 2022-09-12 13:14:00 [facility] [id number] [facility] 2022-08-26 08:40:00 [facility] [id number] [facility] 2022-08-17 14:47:00 Out[facility] [id number] [facility] 2022-06-02 08:30:58 Outpatient [facility] [id number] [facility] 2022-05-24 13:55:01 Out[facility] Jenkins[facility] [id number] [facility] 2022-05-23 10:20:01 Outpatient [facility] [id number] [facility] 2022-05-04 14:32:40 Outpatient [facility] [id number] [facility] 2022-04-07 13:30:01 Outpatient Jenkins, Counts include 234 beds at the [facility] [id number] [facility] 2022-04-04 10:22:48 Outpatient [facility] [id number] [facility] 2022-03-31 12:03:45 Outpatient [facility] [id number] [facility] 2022-03-30 15:15:47 Outpatient [facility] [id number] [facility] 2022-02-09 13:48:01 Outpatient Jenkins, Counts include [id number] beds at the [facility] [id number] [facility] 2021-12-08 11:45:00 Outpatient Jenkins, [facility] [id number] [facility] 2021-12-07 09:25:00 Outpatient [facility] [id number] [facility] 2021-12-03 09:35:01 Outpatient [facility], [facility] [id number] [facility] 2021-06-30 13:05:56 Outpatient Jenkins, [facility] [id number] [facility] 2021-06-30 12:47:29 Outpatient Jenkins, [facility] [id number] [facility] 2021-06-30 12:36:27 [facility] [id number] [facility] 2021-06-30 12:35:26 [facility] [id number] [facility] 2021-06-30 12:28:53 [facility] [id number] [facility] 2021-06-30 12:26:11 [facility] [id number] [facility] 2021-06-30 12:12:23 [facility] [id number] [facility] 2021-06-30 12:04:45 [facility] [id number] [facility] 2021-06-30 11:55:15 [facility] [id number] [facility] 2021-06-30 11:52:56 [facility] [id number] [facility] 2021-06-30 11:52:32 [facility] [id number] [facility] 2021-06-30 11:02:50 Outpatient Fernanda Lockwood [facility] [id number] [facility] 2021-06-30 11:02:33 Outpatient Fernanda Lockwood [facility] [id number] [facility] 2023-10-03 14:00:00 2023-10-03 16:58:23 Office Visit [place], Peter [facility] [id number] [facility] 2023-10-03 16:00:00 2023-10-03 16:38:39 Outpatient R ROBBIN C[address] [facility] [id number] [facility] 2023-10-03 16:00:00 2023-10-03 16:38:39 Office Visit Robbin Carroll [facility] [id number] [id number] [facility] 2023-07-04 14:00:00 2023-07-04 14:41:34 Outpatient R ROBBIN CARR[facility] [facility] [id number] [facility] 2023-07-04 14:00:00 2023-07-04 14:41:34 Office Visit Robbin Carroll [facility] [id number] [id number] [facility] 2023-05-26 14:20:00 2023-05-26 14:20:00 Outpatient R INA MIKE [facility] [id number] [facility] 2023-04-26 00:00:00 2023-04-26 00:00:00 Refill Ina Mike [facility] [id number] [id number] [id number] [facility] 2023-04-12 15:15:00 2023-04-12 15:42:32 Education Technician Visit Lab, Ina Charles [facility] [id number] [id number] [facility] 2023-04-12 15:15:00 2023-04-12 15:15:00 Outpatient R INA MIKE [facility] [id number] [facility] 2023-04-12 14:00:00 2023-04-12 15:06:59 Office Visit Ina Mike [facility] [id number] [id number] [facility] 2022-12-20 00:00:00 2022-12-20 00:00:00 (TEL) STLMLC STLMLC [id number] [facility] 2022-11-03 00:00:00 2022-11-03 00:00:00 (TEL) STLMLC STLMLC [id number] [facility] 2022-09-02 00:00:00 2022-09-02 00:00:00 (TEL) STLMLC STLMLC [id number] [facility] 2022-09-02 00:00:00 2022-09-02 00:00:00 (TEL) STLMLC STLMLC [id number] [facility] 2022-08-30 00:00:00 2022-08-30 00:00:00 OFFICE VISIT ESTAB PT LEVEL 4 STLMLC STLMLC [id number] [facility] 2022-08-17 00:00:00 2022-08-17 00:00:00 (TEL) STLMLC STLMLC [id number] [facility] 2022-06-16 13:00:00 2022-06-16 13:00:00 Outpatient CHAD SANTOS [facility] [id number] [facility] 2022-05-12 11:30:00 2022-05-12 13:38:22 [facility] [address] [id number] [facility] 2022-04-19 00:00:00 2022-04-19 00:00:00 (TEL) STLMLC STLMLC [id number] [facility] 2022-04-14 10:30:00 2022-04-14 12:17:23 [id number] 2022-04-11 00:00:00 2022-04-11 00:00:00 OFFICE VISIT ESTAB PT LEVEL 4 STLMLC STLMLC [id number] [facility] 2022-04-04 10:30:00 2022-04-04 16:18:07 [facility] [address] [id number] [facility] 2022-03-25 11:00:00 2022-03-25 11:00:00 Outpatient [facility]I [facility] [id number] [facility] 2022-03-24 00:00:00 2022-03-24 00:00:00 (TEL) STLMLC STLMLC [id number] [facility] 2022-03-23 00:00:00 2022-03-23 00:00:00 (TEL) STLMLC STLMLC [id number] [facility] 2022-03-23 00:00:00 2022-03-23 00:00:00 (TEL) STLMLC STLMLC [id number] [facility] 2022-03-23 00:00:00 2022-03-23 00:00:00 (TEL) STLMLC STLMLC [id number] [facility] 2022-02-09 00:00:00 2022-02-09 00:00:00 OFFICE VISIT ESTAB PT LEVEL 4 STLMLC STLMLC [id number] [facility] 2021-12-07 00:00:00 2021-12-07 00:00:00 OFFICE VISIT ESTAB PT LEVEL 4 STLMLC STLMLC [id number] [facility] 2021-03-24 00:00:00 2021-03-24 00:00:00 (TEL) STLMLC STLMLC [id number] [facility] 2021-02-23 00:00:00 2021-02-23 00:00:00 (TELEAUD) AUDIO TELEMEDICI NE STLMLC STLMLC [id number] [facility] 2021-02-22 00:00:00 2021-02-22 00:00:00 (TEL) STLMLC STLMLC [id number] [facility] 2020-12-28 15:10:00 2020-12-28 16:55:00 Emergency Shania Waters [facility] 1..840.114 350.1.13.10 [id number] [facility] 2020-12-28 14:57:00 2020-12-28 14:57:00 Emergency X [facility] ERT [id number] [facility] 2020-12-28 00:00:00 2020-12-28 00:00:00 Orders Only Doctor Unassigned, [place] [facility] 1..840.114 350.1.13.10 [id number] [facility] 2020-12-24 00:00:00 2020-12-24 00:00:00 Outpatient STLMLC STLMLC [id number] [facility] 2020-12-17 00:00:00 2020-12-17 00:00:00 Outpatient STLMLC STLMLC [id number] [facility] 2020-12-04 00:00:00 2020-12-04 00:00:00 Outpatient STLMLC STLMLC [id number] [facility] 2020-10-22 00:00:00 2020-10-22 00:00:00 Outpatient STLMLC STLMLC [id number] [facility] 2020-10-15 00:00:00 2020-10-15 00:00:00 Outpatient STLMLC STLMLC [id number] [facility] 2020-10-07 00:00:00 2020-10-07 00:00:00 Outpatient STLMLC STLMLC [id number] [facility] 2020-09-07 00:00:00 2020-09-07 00:00:00 Outpatient STLMLC STLMLC [id number] [facility] 2020-08-06 00:00:00 2020-08-06 00:00:00 Outpatient STLMLC STLMLC [id number] [facility] 2020-07-09 00:00:00 2020-07-09 00:00:00 Outpatient STLMLC STLMLC [id number] [facility] 2020-06-09 00:00:00 2020-06-09 00:00:00 Outpatient STLMLC STLMLC [id number] [facility] 2020-05-21 00:00:00 2020-05-21 00:00:00 Outpatient STLMLC STLMLC [id number] [facility] 2020-05-14 00:00:00 2020-05-14 00:00:00 Outpatient STLMLC STLMLC [id number] [facility] 2020-04-28 00:00:00 2020-04-28 00:00:00 Outpatient STLMLC STLMLC [id number] [facility] 2020-04-16 00:00:00 2020-04-16 00:00:00 Outpatient STLMLC STLMLC [id number] [facility] 2020-03-18 00:00:00 2020-03-18 00:00:00 Outpatient STLMLC STLMLC [id number] [facility] 2020-03-18 00:00:00 2020-03-18 00:00:00 Outpatient STLMLC STLC [id number] [facility] 2020-03-10 00:00:00 2020-03-10 00:00:00 Outpatient STLMLC STLC [id number] [facility] 2020-01-30 04:28:00 2020-01-30 04:28:00 Outpatient Ajibade_O_A H VFP VFP [id number] [facility] 2020-01-30 04:28:00 2020-01-30 04:28:00 Outpatient Ajibade_O_A H VFP VFP [id number] [facility] 2020-01-30 04:28:00 2020-01-30 04:28:00 Outpatient Ajibade_O_A H VFP VFP [id number] [facility] 2020-01-30 04:28:00 2020-01-30 04:28:00 Outpatient Ajibade_O_A H VFP VFP [id number] [facility] 2019-07-24 07:17:00 2019-07-24 07:17:00 Outpatient Ige-Odunuga _J_AH VFP VFP [id number] [facility] 2019-07-24 07:17:00 2019-07-24 07:17:00 Outpatient Ige-Odunuga _J_AH VFP VFP [id number] [facility] 2019-07-21 18:06:23 2019-07-21 22:09:00 Emergency Lucho Alfaro [place] [id number] [id number] [id number] 2019-07-21 18:06:23 2019-07-21 22:09:00 Emergency X LUCHO ALFARO [facility] ERT [id number] [facility] 2019-07-21 18:06:23 2019-07-21 22:09:00 Emergency Lucho Alfaro [place] [id number] [facility] 2019-07-15 15:01:00 2019-07-15 15:01:00 [facility] [id number] [facility] 2019-07-09 16:46:00 2019-07-09 16:46:00 [facility] [id number] [facility] 2019-07-08 14:51:00 2019-07-08 14:51:00 [facility] [id number] [facility] 2019-07-08 08:00:00 2019-07-08 08:00:00 [facility] [id number] [facility] 2019-07-04 13:00:00 2019-07-04 13:00:00 [facility] [id number] [facility] 2019-07-02 14:32:00 2019-07-02 14:32:[address] [facility] [address] [facility] [id number] [facility] 2019-06-27 14:40:00 2019-06-27 14:40:[address] [facility] [address] [facility] [id number] [facility] 2019-06-03 11:17:00 2019-06-03 11:17:[address] [facility] [address] [facility] [id number] [facility] 2019-04-09 15:20:00 2019-04-09 15:20:[address] [facility] [address] [facility] [id number] [facility] 2019-02-19 14:40:00 2019-02-19 14:40:[address] [id number] [facility] 2018-12-11 11:21:00 2018-12-11 11:21:[address] [facility] [address] [facility] [facility] [id number] [facility] 2018-11-19 14:40:00 2018-11-19 14:40:[address] [facility] [address] [facility] [id number] [facility] 2018-09-17 16:00:00 2018-09-17 16:00:[address] [facility] [address] [facility] [id number] [facility] 2018-08-02 16:07:00 2018-08-02 16:07:00 [facility] [address] [facility] [id number] [facility] 2018-08-02 16:05:00 2018-08-02 16:05:00 [facility] [address] [facility] [id number] [facility] 2018-06-18 16:00:00 2018-06-18 16:00:00 [facility] [address] [facility] [facility] [id number] [facility] 2018-01-18 14:00:00 2018-01-18 14:00:[address] [facility] [facility] [address] [facility] [id number] [facility] 2017-09-19 09:33:00 2017-09-19 09:33:[address] [facility] [address] [facility] [facility] [id number] [facility] 2017-09-14 13:00:00 2017-09-14 13:00:[address] [facility] [address] [facility] [facility] [id number] [facility] 2017-09-12 11:05:00 2017-09-12 11:05:[address] [facility] [address] [facility] [facility] [id number] [facility] 2017-08-29 15:30:00 2017-08-29 15:30:00 [facility] [id number] [facility] Results Test Description Test Time Test Comments Results Resul t Comments Source US SCROTUM AND CONTENTS 2019-07-06 03:19:48 No evidence for testicular torsion. No definite evidence for epididymo-orchitis. RL: [id number] AFC: [id number] Ordering physician: LUCHO ALFARO INDICATION: Scrotal pain [...] torsion.No definite evidence for epididymo-orchitis. RL: [id number]: [id number] signed by Kristen Valdez MD, PhD at 07/21/2019 9:19 PM [facility]
[2023-11-25 02:11] LABS: Absolute Eosinophils 0.1 K/uL (0-0.5); Absolute Lymphocytes (CBC) 2.3 K/uL (0.7-4.9); Absolute Monocytes 0.5 K/uL (0.1-1.3); Absolute Neutrophil 3.7 K/uL (1.8-8.0); Basophils % 0.5 % (0-1.3); Eosinophils % 1.4 % (0-4.4); Hematocrit 43.4 % (39.6-49.0); Hemoglobin 14.8 g/dL (13.6-17.9); Lymphocytes % 34.8 % (15.3-44.8); MCV 91.1 fL (80-100); Monocytes % 7.9 % (3.3-12.3); Neutrophils % 55.4 % (41.7-73.7); Platelets 170 thou/uL (152-406); RBC Red Blood Cell Count 4.76 M/uL (4.33-5.43); Red Cell Distribution Width 13.2 % (12.1-15.2)
[2023-11-25] MEDS ORDERED: NA CHLORIDE 0.9% 1,000 ML ONE (02:11)
[2023-11-25 02:16] LABS: PT Prothrombin Time 12.1 SECONDS (9.4-12.5); Protime INR 1.1
[2023-11-25 02:41] LABS: ALT/SGPT 25 U/L (16-61); Albumin 3.3 g/dL (3.4-5.0); Alkaline Phosphatase 64 U/L (45-117); Anion Gap 6.4 mEq/L (5.0-15.0); BUN Blood Urea Nitrogen 14 mg/dL (7-18); Bicarbonate 30 mEq/L (21-32); Bilirubin Total 0.4 mg/dL (0.2-1.0); Globulin 3.4 g/dL (2.3-3.5); Glomerular Filtration Rate 91 ml/min (=/>90); Glucose Level 109 mg/dL (74-106); NT PRO-BNP 40 pg/mL (<125); Potassium 4.4 mEq/L (3.5-5.1); Protein, Total 6.7 g/dL (6.4-8.2); Sodium Level 138 mEq/L (136-145); Troponin High Sensitivity 6.9 pg/mL (<58.9)
[2023-11-25 03:08] LABS: AST/SGOT < 10 U/L (15-37); Bilirubin Direct < 0.2 mg/dL (0-0.2); Bilirubin Indirect, Calculated 0.2 mg/dL (0.2-0.8); C-Reactive Protein < 2.90 mg/L (<3.00)
[2023-11-25 03:11] LABS: SARS-CoV-2 Antigen CONTROL BLUE LINE VIS/BG OK; SARS-CoV-2 Antigen Rapid Res Negative (Negative)
--- NOTE | 2023-11-25 04:35 | EDPHYS ---
Physician Documentation [facility] Name: Alfredo Escobar Age: 63 yrs Sex: Male : 1960 Arrival Date: 11/25/2023 Time: 00:54 Bed 14 Private MD: ED Physician Wolfgang Bethea HPI: 11/24 01:03 This 63 yrs old Other Race Male presents to ER via Unassigned with complaints of Leg sp4 Pain, Low Back Pain, Fatigue, Arm Pain. 04:40 63-year-old male presents with multiple complaints of bilateral leg pain bilateral back sp4 pain fatigue bilateral arm pain and anxiety. Patient would like his heart checked out. . Historical: - Allergies: 01:34 Bactrim; vc1 01:34 Iodine; vc1 01:34 Keflex; vc1 01:34 Levaquin; vc1 01:34 promethazine HCl; vc1 01:34 Toradol; vc1 01:34 Latex; vc1 - PMHx: 01:34 Anxiety; Arthritis; Chronic pain; Crohn's; GERD; Hypertensive disorder; Pancreatitis; vc1 PTSD; - PSHx: 01:34 eye; hernia; vc1 - Immunization history:: Client reports having NOT received the Covid vaccine. Flu vaccine is up to date. - Infectious Disease History:: Denies. - Social history:: Smoking status: Patient denies any tobacco usage or history of. - Family history:: not pertinent. ROS: 04:40 Constitutional: Negative for fever, chills, and weight loss, positive fatigue, positive sp4 back pain, positive bilateral extremity pain, positive anxiety 04:40 All other systems are negative, Exam: 04:27 Constitutional: This is a well developed, well nourished patient who is awake, alert, sp4 and in no acute distress. Head/Face: Normocephalic, atraumatic. Eyes: Pupils equal round and reactive to light, extra-ocular motions intact. Lids and lashes normal. Conjunctiva and sclera are not injected. Cornea within normal limits. Periorbital areas with no swelling, redness, or edema. ENT: Nares patent. No nasal discharge, no septal abnormalities noted. Tympanic membranes are normal and external auditory canals are clear. Oropharynx with no redness, swelling, or masses, exudates, or evidence of obstruction, uvula midline. Mucous membranes moist. Neck: Trachea midline, no thyromegaly or masses palpated, and no cervical lymphadenopathy. Supple, full range of motion without nuchal rigidity, or vertebral point tenderness. Chest/axilla: Normal chest wall appearance and motion. Nontender with no deformity. No lesions are appreciated. Cardiovascular: Regular rate and rhythm with a normal S1 and S2. No gallops, murmurs, or rubs. Normal PMI, no JVD. No pulse deficits. Respiratory: Lungs have equal breath sounds bilaterally, clear to auscultation and percussion. No rales, rhonchi or wheezes noted. No increased work of breathing, no retractions or nasal flaring. Abdomen/GI: Soft, with normal bowel sounds. No distension or tympany. No guarding or rebound. No evidence of tenderness throughout. Back: No spinal tenderness. No costovertebral tenderness. Skin: Warm, dry with normal turgor. Normal color with no rashes, no lesions, and no evidence of cellulitis. MS/ Extremity: Pulses equal, no cyanosis. Neurovascular intact. Full, normal range of motion. Neuro: Awake and alert, GCS 15, oriented to person, place, time, and situation. Cranial nerves II-XII grossly intact. Motor strength 5/5 in all extremities. Sensory grossly intact. Psych: Awake, alert, with orientation to person, place and time. Behavior, mood, and affect are within normal limits 04:27 ECG was reviewed by the Attending Physician. EKG at 0 142 reveals normal sinus rhythm at a rate of 50 Vital Signs: 01:32 Weight 92.99 kg; Height 5 ft. 10 in. ; vc1 01:38 BP 153 / 88; Pulse 52; Resp 18; Temp 97(TE); Pulse Ox 99% on R/A; Weight 92.99 kg; oe Height 5 ft. 10 in. ; 02:30 BP 144 / 82; Pulse 48; Resp 18; Pulse Ox 98% ; cp4 03:30 BP 155 / 74; Pulse 46; Resp 18; Pulse Ox 99% ; cp4 04:43 BP 162 / 81; Pulse 51; Resp 17; Temp 97.5(TE); Pulse Ox 100% on R/A; Pain 0/10; tm6 01:38 Body Mass Index 29.41 (92.99 kg, 177.8 cm) oe 04:43 Pain Scale: Adult tm6 [place] Coma Score: 04:40 Eye Response: spontaneous(4). Motor Response: obeys commands(6). Verbal Response: sp4 oriented(5). Total: 15. MDM: 01:04 Patient medically screened. sp4 04:29 ED course: EXAM DESCRIPTION: Chest Single View CLINICAL HISTORY: CHEST PAIN COMPARISON: sp4 None TECHNIQUE: Single AP view of the chest. FINDINGS: Lung volumes adequate. Cardiac silhouette is normal in size. No pneumothorax. Calcified left hilar lymph nodes. Left midlung calcified granuloma. No large pleural effusion. No focal consolidation. No acute bony finding. IMPRESSION: 1. No acute cardiopulmonary findings. 2. Sequela of prior granulomatous disease. 04:40 Differential diagnosis: dislocation, contusion, abrasion, tendonitis. Data reviewed: sp4 vital signs, nurses notes. Data reviewed: lab test result(s), EKG, radiologic studies, plain films. Consideration of Admission/Observation Escalation of care including admission/observation considered. ED course: Has unremarkable workup to date. Stable for discharge home. Advised follow-up with registration officer. Clonazepam as needed anxiety. . 11/24 01:35 Order name: Basic Metabolic Panel; Complete Time: 04: sp4 11/24 01:35 Order name: CBC with Diff; Complete Time: 04:26 sp4 11/24 01:35 Order name: LFT's; Complete Time: 04:26 sp4 11/24 01:35 Order name: Magnesium; Complete Time: 04:26 sp4 11/24 01:35 Order name: NT PRO-BNP; Complete Time: 04: sp4 11/24 01:35 Order name: PT-INR; Complete Time: 04:26 sp4 11/24 01:35 Order name: Troponin HS; Complete Time: 04: sp4 11/24 01:36 Order name: CRP; Complete Time: 04: sp4 11/24 01:36 Order name: SARS RAPID; Complete Time: 04:26 sp4 11/24 01:35 Order name: XRAY Chest (1 view) sp4 11/24 01:35 Order name: Cardiac monitoring; Complete Time: 01:46 sp4 11/24 01:35 Order name: EKG - Nurse/Tech; Complete Time: 01:46 sp4 11/24 01:35 Order name: IV Saline Lock; Complete Time: 02: sp4 11/24 01:35 Order name: Labs collected and sent; Complete Time: : sp4 11/24 01:35 Order name: O2 Per Protocol; Complete Time: sp4 11/24 01:35 Order name: O2 Sat Monitoring; Complete Time: sp4 EC:27 Rate is 50 beats/min. Rhythm is regular, Sinus bradycardia. QRS [place] is Normal. [place] sp4 interval is normal. QRS interval is normal. QT interval is normal. No Q waves. T waves are Normal. No ST changes noted. Clinical impression: No evidence of ischemia. Interpreted by me. Reviewed by me. Administered Medications: 02:14 Drug: NS 0.9% IV 1000 ml IV at 1 bolus Per protocol; 1000 mL bolus Route: IV; Rate: 1 cp4 bolus; Site: right antecubital; 04:45 Follow up: IV Status: Completed infusion; IV Intake: 1000ml tm6 Disposition Summary: 11/25/23 04:34 Discharge Ordered Notes: Location: Home sp4 Problem: new sp4 Symptoms: have improved sp4 Condition: Stable sp4 Diagnosis - Anxiety disorder, unspecified sp4 - Other malaise and fatigue sp4 Followup: sp4 - With: Private Physician - When: 7 - 10 days - Reason: Recheck today's complaints Discharge Instructions: - Discharge Summary Sheet sp4 - Fatigue sp4 Forms: - Patient Portal Instructions sp4 Prescriptions: - clonazepam 1 mg Oral tablet - take 1 tablet ORAL route every evening PRN anxiety; 20 tablet; Refills: 0, sp4 Product Selection Permitted Signatures: Dispatcher [employer] EDMS Sandie Peña RN RN 1 Wolfgang Bethea MD MD sp4 Liudmila Gonzales Tawney RN tm6 Corrections: (The following items were deleted from the chart) 01:35 01:34 Allergies: Latex; vc1 vc1 01:36 01:36 BASIC METABOLIC PANEL+C.LAB.BRZ ordered. EDMS EDMS 01:36 01:36 CBC+H.LAB.BRZ ordered. EDMS EDMS 01:36 01:36 HEPATIC FUNCTION+C.LAB.BRZ ordered. EDMS EDMS 01:36 01:36 MAGNESIUM+C.LAB.BRZ ordered. EDMS EDMS 01:36 01:36 PROBNP+C.LAB.BRZ ordered. EDMS EDMS 01:36 01:36 PROTIME (+INR)+COAG.LAB.BRZ ordered. EDMS EDMS 01:36 01:36 Troponin High Sensitivity+C.LAB.BRZ ordered. EDMS EDMS 01:36 01:36 Chest Single View+RAD.RAD.BRZ ordered. EDMS EDMS 01:36 01:36 C-REACTIVE PROTEIN+C.LAB.BRZ ordered. EDMS EDMS 01:36 01:36 SARS-COV-2 Antigen Rapid+I.LAB.BRZ ordered. EDMS EDMS
--- NOTE | 2023-11-25 04:35 | ER ---
Nurse's Notes [facility] Name: Alfredo Escobar Age: 63 yrs Sex: Male : 1960 Arrival Date: 11/25/2023 Time: 00:54 Bed 14 Private MD: Diagnosis: Anxiety disorder, unspecified;Other malaise and fatigue Presentation: 11/24 01:32 Chief complaint: Patient states: I have been really fatigued, with left arm pain, neck vc1 and back pain, unbalanced. Coronavirus screen: Client denies travel out of the [place] in the last 14 days. At this time, the client does not indicate any symptoms associated with coronavirus-19. Ebola Screen: Patient negative for fever greater than or equal to 101.5 degrees Fahrenheit, and additional compatible Ebola Virus Disease symptoms Patient denies exposure to infectious person. Patient denies travel to an Ebola-affected area in the 21 days before illness onset. No symptoms or risks identified at this time. Initial Sepsis Screen: Does the patient meet any 2 criteria? No. Patient's initial sepsis screen is negative. Does the patient have a suspected source of infection? No. Patient's initial sepsis screen is negative. Risk Assessment: Do you want to hurt yourself or someone else? Patient reports no desire to harm self or others. Onset of symptoms is unknown. 01:32 Method Of Arrival: Ambulatory vc1 01:32 Acuity: BUCKY 4 vc1 Triage Assessment: 01:35 General: Appears in no apparent distress. uncomfortable, Behavior is calm, cooperative, vc1 appropriate for age. Pain: Complains of pain in left arm Pain does not radiate. EENT: No deficits noted. No signs and/or symptoms were reported regarding the EENT system. Neuro: Level of Consciousness is awake, alert, obeys commands, Oriented to person, place, time, situation, Appropriate for age Reports dizziness, fatigue and "off balanced". Respiratory: Airway is patent Respiratory effort is even, unlabored, Respiratory pattern is regular, symmetrical. Derm: Skin is intact, is healthy with good turgor, Skin is diaphoretic, Skin is normal, Skin temperature is warm. Historical: - Allergies: 01:34 Bactrim; vc1 01:34 Iodine; vc1 01:34 Keflex; vc1 01:34 Levaquin; vc1 01:34 promethazine HCl; vc1 01:34 Toradol; vc1 01:34 Latex; vc1 - PMHx: 01:34 Anxiety; Arthritis; Chronic pain; Crohn's; GERD; Hypertensive disorder; Pancreatitis; vc1 PTSD; - PSHx: 01:34 eye; hernia; vc1 - Immunization history:: Client reports having NOT received the Covid vaccine. Flu vaccine is up to date. - Infectious Disease History:: Denies. - Social history:: Smoking status: Patient denies any tobacco usage or history of. - Family history:: not pertinent. Screenin:35 Abuse screen: Denies threats or abuse. Nutritional screening: No deficits noted. vc1 Tuberculosis screening: No symptoms or risk factors identified. 02:06 [facility] ED Fall Risk Assessment (Adult) History of falling in the last 3 months, cp4 including since admission No falls in past 3 months (0 pts) Confusion or Disorientation No (0 pts) Intoxicated or Sedated No (0 pts) Impaired Gait No (0 pts) Mobility Assist Device Used No (0 pt) Altered Elimination No (0 pt) Score/Fall Risk Level 0 - 2 = Low Risk Oriented to surroundings, Maintained a safe environment, Assessed \\T\\ reinforced patient's understanding of fall precautions, Hourly rounding (assess needs \\T\\ fall precautionary measures) done. Assessment: 02:06 General: Appears uncomfortable, Behavior is calm, cooperative, appropriate for age. cp4 Pain: Complains of pain in left arm and back. Musculoskeletal: No deficits noted. Reports pain in left arm and back. 04:43 Reassessment: Patient appears in no apparent distress at this time. Patient is alert, tm6 oriented x 3, equal unlabored respirations, skin warm/dry/pink. Vital Signs: 01:32 Weight 92.99 kg; Height 5 ft. 10 in. ; vc1 01:38 BP 153 / 88; Pulse 52; Resp 18; Temp 97(TE); Pulse Ox 99% on R/A; Weight 92.99 kg; oe Height 5 ft. 10 in. ; 02:30 BP 144 / 82; Pulse 48; Resp 18; Pulse Ox 98% ; cp4 03:30 BP 155 / 74; Pulse 46; Resp 18; Pulse Ox 99% ; cp4 04:43 BP 162 / 81; Pulse 51; Resp 17; Temp 97.5(TE); Pulse Ox 100% on R/A; Pain 0/10; tm6 01:38 Body Mass Index 29.41 (92.99 kg, 177.8 cm) oe 04:43 Pain Scale: Adult tm6 [place] Coma Score: 04:40 Eye Response: spontaneous(4). Motor Response: obeys commands(6). Verbal Response: sp4 oriented(5). Total: 15. ED Course: 00:59 Patient arrived in ED. gm2 01:03 Wolfgang Bethea MD is Attending Physician. sp4 01:34 Triage completed. vc1 01:35 Arm band placed on right wrist. vc1 01:36 Liudmila Gonzales is Primary Nurse. cp4 02:05 SARS RAPID Sent. cp4 02:05 CRP Sent. cp4 02:05 Basic Metabolic Panel Sent. cp4 02:05 CBC with Diff Sent. cp4 02:06 Bed in low position. Call light in reach. Side rails up X2. cp4 02:06 Magnesium Sent. cp4 02:06 NT PRO-BNP Sent. cp4 02:06 PT-INR Sent. cp4 02:06 Troponin HS Sent. cp4 02:06 No provider procedures requiring assistance completed. Initial lab(s) drawn, by me, cp4 sent to lab. COVID swab sent to lab. Inserted saline lock: 20 gauge in right antecubital area, using aseptic technique. Blood collected. 02:30 XRAY Chest (1 view) In Process Unspecified. EDMS 04:44 Provided Education on: use of clonazepam. tm6 04:44 IV discontinued, intact, bleeding controlled, No redness/swelling at site. Pressure tm6 dressing applied. Administered Medications: 02:14 Drug: NS 0.9% IV 1000 ml IV at 1 bolus Per protocol; 1000 mL bolus Route: IV; Rate: 1 cp4 bolus; Site: right antecubital; 04:45 Follow up: IV Status: Completed infusion; IV Intake: 1000ml tm6 Medication: 02:06 VIS not applicable for this client. cp4 Intake: 04:45 IV: 1000ml; Total: 1000ml. tm6 Outcome: 04:34 Discharge ordered by . sp4 04:44 Discharged to home ambulatory, tm6 04:44 Condition: stable 04:44 Discharge instructions given to patient, Instructed on discharge instructions, follow up and referral plans. medication usage, Demonstrated understanding of instructions, follow-up care, medications, Prescriptions given X 1, 04:44 Patient left the ED. tm6 Signatures: Dispatcher [employer] EDMS Travis Edwards Vanessa, RN RN vc1 Wolfgang Bethea MD MD sp4 Liudmila Gonzales 4 Porsche Ceballos 2 Kevin Hillman RN RN tm6 Corrections: (The following items were deleted from the chart) 01:35 01:34 Allergies: Latex; vc1 vc1
[2023-11-25 05:16] VITALS: BP 162/81; TEMP 97.5; O2SAT 100
--- NOTE | 2023-11-26 13:30 | EKG ---
Test Date: 2023-11-25 Test Time: 01:42:43 Practice Manager: BELLE MEASUREMENT RESULTS: Intervals: Rate: 50 SC: 150 QRSD: 84 QT: 420 QTc: 382 [place]: P: 28 SC: 150 QRS: 13 T: 24 INTERPRETIVE STATEMENTS: Sinus bradycardia Otherwise normal ECG Compared to ECG 10/11/2022 22:22:36 No significant changes Electronically Signed On 11-26-23 13:27:43 CDT by Janes Woo
--- NOTE | 2023-11-27 10:44 | RAD REPORT ---
EXAM DESCRIPTION: RAD - Chest Single View - 11/25/2023 2:28 am CLINICAL HISTORY: CHEST PAIN COMPARISON: None TECHNIQUE: Single AP view of the chest. FINDINGS: Lung volumes adequate. Cardiac silhouette is normal in size. No pneumothorax. Calcified left hilar lymph nodes. Left midlung calcified granuloma. No large pleural effusion. No focal consolidation. No acute bony finding. IMPRESSION: 1. No acute cardiopulmonary findings. 2. Sequela of prior granulomatous disease. Electronically signed by: Chema Snowden MD 11/25/2023 03:39 AM CDT Z9 Due to temporary technical issues with the PACS/Fluency reporting system, reports are being signed by the in house radiologists without review as a courtesy to insure prompt reporting. The interpreting radiologist is fully responsible for the content of the report.
== END 2023-11-25 04:44 | disposition home or self-care (01) ==
LOC: ER 00:54
DX: F41.9 Anxiety disorder, unspecified (principal); R53.81 Other malaise; R53.83 Other fatigue; Z11.52 Encounter for screening for COVID-19
CPT/HCPCS: 96361; 93005; 85025; 80048; 36415; 83735; 85610; 80076; 84484; 83880; 86140; 71045; 96360; 99284; 87811; J7030

== ENCOUNTER 2024-01-23 05:24 | Emergency (ER) | payer OTHER ==
[2024-01-23 06:03] LABS: Absolute Eosinophils 0.1 K/uL (0-0.5); Absolute Lymphocytes (CBC) 0.8 K/uL (0.7-4.9); Absolute Monocytes 1.1 K/uL (0.1-1.3); Absolute Neutrophil 4.4 K/uL (1.8-8.0); Basophils % 0.2 % (0-1.3); Eosinophils % 0.9 % (0-4.4); Hematocrit 43.8 % (39.6-49.0); Hemoglobin 14.7 g/dL (13.6-17.9); Lymphocytes % 12.1 % (15.3-44.8); MCH 30.6 pg (27.0-35.0); MCHC 33.5 g/dL (32.0-36.0); MCV 91.2 fL (80-100); MPV 8.1 fL (7.6-11.3); Monocytes % 17.7 % (3.3-12.3); Neutrophils % 69.1 % (41.7-73.7); Platelets 166 thou/uL (152-406); Red Cell Distribution Width 13.7 % (12.1-15.2)
[2024-01-23 06:17] LABS: SARS-CoV-2 Antigen CONTROL BLUE LINE VIS/BG OK
[2024-01-23 06:18] LABS: SARS-CoV-2 Antigen Rapid Res Positive (Negative)
[2024-01-23 06:30] LABS: Albumin 3.6 g/dL (3.4-5.0); Albumin/Globulin Ratio 1.1 (1.1-1.8); Anion Gap 10.9 mEq/L (5.0-15.0); Bilirubin Direct 0.2 mg/dL (0-0.2); Bilirubin Indirect, Calculated 0.3 mg/dL (0.2-0.8); Bilirubin Total 0.5 mg/dL (0.2-1.0); Globulin 3.3 g/dL (2.3-3.5); Magnesium 1.8 mg/dL (1.6-2.4); Potassium 3.9 mEq/L (3.5-5.1); Protein, Total 6.9 g/dL (6.4-8.2); Troponin High Sensitivity 7.8 pg/mL (<58.9)
--- NOTE | 2024-01-23 06:53 | ER ---
Nurse's Notes [facility] Name: Alfredo Escobar Age: 63 yrs Sex: Male : 1960 Arrival Date: 01/23/2024 Time: 05:24 Bed 7 Private MD: Diagnosis: COVID-19 Presentation: 01/22 05:34 Chief complaint: Patient states: Woke up this morning feeling unwell. C/o fatigue, body ss aches, low grade fever, congestion and cough. Coronavirus screen: Client denies travel out of the [place] in the last 14 days. Ebola Screen: Patient denies exposure to infectious person. Patient denies travel to an Ebola-affected area in the 21 days before illness onset. Initial Sepsis Screen: Does the patient meet any 2 criteria? No. Patient's initial sepsis screen is negative. Does the patient have a suspected source of infection? No. Patient's initial sepsis screen is negative. Risk Assessment: Do you want to hurt yourself or someone else? Patient reports no desire to harm self or others. Onset of symptoms was January 23, 2024. 05:34 Method Of Arrival: Ambulatory ss 05:34 Acuity: BUCKY 3 ss Triage Assessment: 05:34 General: Appears in no apparent distress. Behavior is calm, cooperative. General: ss Reports feeling ill for 0-12 hours, fatigue for 0-12 hours. Neuro: Level of Consciousness is awake, alert, obeys commands, Oriented to person, place, time, situation, Speech is normal. Respiratory: Airway is patent Respiratory effort is even, unlabored, Respiratory pattern is regular, symmetrical. GI: Patient currently denies diarrhea, nausea, vomiting. Derm: Skin is pink, warm \T\ dry. normal. Historical: - Allergies: 05:36 Bactrim; ss 05:36 Iodine; ss 05:36 Keflex; ss 05:36 Latex; ss 05:36 Levaquin; ss 05:36 promethazine HCl; ss 05:36 Toradol; ss - PMHx: 05:36 Anxiety; Arthritis; Chronic pain; Crohn's; GERD; Hypertensive disorder; Pancreatitis; ss PTSD; - PSHx: 05:36 eye; hernia; ss - Immunization history:: Client reports having NOT received the Covid vaccine. - Infectious Disease History:: Denies. - Social history:: Smoking status: Patient reports use of chewing tobacco. - Family history:: not pertinent. Screenin:56 [facility] ED Fall Risk Assessment (Adult) History of falling in the last 3 months, pc2 including since admission No falls in past 3 months (0 pts) Confusion or Disorientation No (0 pts) Intoxicated or Sedated No (0 pts) Impaired Gait No (0 pts) Mobility Assist Device Used No (0 pt) Altered Elimination No (0 pt) Score/Fall Risk Level 0 - 2 = Low Risk Oriented to surroundings, Maintained a safe environment, Hourly rounding (assess needs \T\ fall precautionary measures) done. Abuse screen: Denies threats or abuse. Denies injuries from another. Nutritional screening: No deficits noted. Nutritional screening: No deficits noted. Tuberculosis screening: No symptoms or risk factors identified. Assessment: 05:57 General: Appears in no apparent distress. distressed, comfortable, Behavior is calm, pc2 cooperative. General: Reports fever for feeling ill for 1-2 days, fatigue for. Pain: Denies pain. Neuro: Nicolas Agitation-Sedation Scale (RASS): 0 - Alert and Calm Level of Consciousness is awake, alert, obeys commands, Oriented to person, place, time, situation. Neuro: Reports dizziness. Cardiovascular: Patient's skin is warm and dry. Cardiovascular: Denies chest pain. Respiratory: Reports cough that is non-productive, Airway is patent Respiratory effort is even, unlabored, Respiratory pattern is regular, symmetrical. GI: Abdomen is non-distended. : No signs and/or symptoms were reported regarding the genitourinary system. EENT: Reports nasal congestion. Derm: No signs and/or symptoms reported regarding the dermatologic system. Musculoskeletal: No signs and/or symptoms reported regarding the musculoskeletal system. 07:00 Reassessment: Patient appears in no apparent distress at this time. Patient and/or db family updated on plan of care and expected duration. Pain level reassessed. Patient is alert, oriented x 3, equal unlabored respirations, skin warm/dry/pink. Vital Signs: 05:34 BP 148 / 80; Pulse 78; Resp 17; Temp 99.7(O); Pulse Ox 97% on R/A; Weight 95.25 kg; ss Height 5 ft. 9 in. ; Pain 4/10; 06:35 BP 126 / 79; Pulse 60; Resp 16; Pulse Ox 96% on R/A; pc2 05:34 Body Mass Index 31.01 (95.25 kg, 175.26 cm) ss 05:34 Pain Scale: Adult ss ED Course: 05:25 Patient arrived in ED. [id number] 05:26 El Mckeon MD is Attending Physician. rt 05:28 Fanny Gifford, RN is Primary Nurse. pc2 05:36 Triage completed. ss 05:36 Arm band placed on right wrist. ss 05:45 Inserted saline lock: 20 gauge in right antecubital area, using aseptic technique. pc2 Blood collected. Flushed with 10 mL NS. 05:48 Initial lab(s) drawn, by me, sent to lab. pc2 05:50 Basic Metabolic Panel Sent. pc2 05:50 CBC with Diff Sent. pc2 05:50 LFT's Sent. pc2 05:50 Magnesium Sent. pc2 05:50 Troponin HS Sent. pc2 05:52 Influenza Screen (a \T\ B) Sent. pc2 05:52 SARS RAPID Sent. pc2 05:57 Patient has correct armband on for positive identification. Bed in low position. Call pc2 light in reach. Side rails up X 1. Provided Education on: POC and time frame. 05:59 No provider procedures requiring assistance completed. pc2 06:12 X-ray(s) taken. pc2 06:35 XRAY Chest (1 view) In Process Unspecified. EDMS 07:00 IV discontinued, intact, bleeding controlled, No redness/swelling at site. Pressure pc2 dressing applied. Administered Medications: No medications were administered Medication: 05:57 VIS not applicable for this client. pc2 Outcome: 06:52 Discharge ordered by . rt 07:00 Discharged to home ambulatory, pc2 07:00 Condition: stable 07:00 Discharge instructions given to patient, Instructed on discharge instructions, follow up and referral plans. Demonstrated understanding of instructions, follow-up care, 07:00 Patient left the ED. pc2 Signatures: Dispatcher [employer] EDMS Keyla Rapp, MARY RN Karo Callejas [id number] Gabby Harrison RN RN db El Mckeon MD MD rt Fanny Gifford, RN RN pc2 Corrections: (The following items were deleted from the chart) 05:59 05:57 General: Reports feeling ill for 1-2 days, pc2 pc2 05:59 05:57 Respiratory: Airway is patent Respiratory effort is even, unlabored, Respiratory pc2 pattern is regular, symmetrical, pc2
--- NOTE | 2024-01-23 06:53 | EDPHYS ---
Physician Documentation [facility] Name: Alfredo Escobar Age: 63 yrs Sex: Male : 1960 Arrival Date: 01/23/2024 Time: 05:24 Bed 7 Private MD: ED Physician El Mckeon HPI: 01/22 05:49 This 63 yrs old Male presents to ER via Ambulatory with complaints of Dizziness. rt 05:49 Patient has family members with COVID-19. The patient presents to the ED not feeling rt well today. Reports cough, body aches, generalized malaise starting this morning. Denies other acute complaints at this time, symptoms are moderate in severity, no other aggravating or alleviating factors.. Historical: - Allergies: 05:36 Bactrim; ss 05:36 Iodine; ss 05:36 Keflex; ss 05:36 Latex; ss 05:36 Levaquin; ss 05:36 promethazine HCl; ss 05:36 Toradol; ss - PMHx: 05:36 Anxiety; Arthritis; Chronic pain; Crohn's; GERD; Hypertensive disorder; Pancreatitis; ss PTSD; - PSHx: 05:36 eye; hernia; ss - Immunization history:: Client reports having NOT received the Covid vaccine. - Infectious Disease History:: Denies. - Social history:: Smoking status: Patient reports use of chewing tobacco. - Family history:: not pertinent. ROS: 05:49 Cardiovascular: Negative for chest pain, palpitations, and edema, Respiratory: Negative rt for shortness of breath, cough, wheezing, and pleuritic chest pain, Abdomen/GI: Negative for abdominal pain, nausea, vomiting, diarrhea, and constipation, MS/Extremity: Negative for injury and deformity, Skin: Negative for injury, rash, and discoloration, 05:49 Constitutional: Positive for body aches, chills, fever, malaise, Exam: 05:49 Constitutional: This is a well developed, well nourished patient who is awake, alert, rt and in no acute distress. Head/Face: Normocephalic, atraumatic. Chest/axilla: Normal chest wall appearance and motion. Nontender with no deformity. No lesions are appreciated. Cardiovascular: Regular rate and rhythm with a normal S1 and S2. No gallops, murmurs, or rubs. Normal PMI, no JVD. No pulse deficits. Respiratory: Lungs have equal breath sounds bilaterally, clear to auscultation and percussion. No rales, rhonchi or wheezes noted. No increased work of breathing, no retractions or nasal flaring. Abdomen/GI: Soft, non-tender, with normal bowel sounds. No distension or tympany. No guarding or rebound. No evidence of tenderness throughout. Skin: Warm, dry with normal turgor. Normal color with no rashes, no lesions, and no evidence of cellulitis. MS/ Extremity: Pulses equal, no cyanosis. Neurovascular intact. Full, normal range of motion. Neuro: Awake and alert, GCS 15, oriented to person, place, time, and situation. Cranial nerves II-XII grossly intact. Motor strength 5/5 in all extremities. Sensory grossly intact. Cerebellar exam normal. Normal gait. 06:17 ECG was reviewed by the Attending Physician. rt Vital Signs: 05:34 BP 148 / 80; Pulse 78; Resp 17; Temp 99.7(O); Pulse Ox 97% on R/A; Weight 95.25 kg; ss Height 5 ft. 9 in. ; Pain 4/10; 06:35 BP 126 / 79; Pulse 60; Resp 16; Pulse Ox 96% on R/A; pc2 05:34 Body Mass Index 31.01 (95.25 kg, 175.26 cm) ss 05:34 Pain Scale: Adult ss MDM: 05:29 Patient medically screened. rt 06:53 Differential diagnosis: COVID, pneumonia, viral syndrome. Data reviewed: vital signs, rt nurses notes, lab test result(s), EKG, radiologic studies. Consideration of Admission/Observation Escalation of care including admission/observation considered. Stable vital signs, normal oxygenation, unremarkable labs, x-ray, no indications for admission at this time.. Independent interpretation of the following test(s) in the Emergency Department X-Ray: My interpretation is No pneumonia seen on interpretation of x-ray images. Test considered but Not performed: CT: Low suspicion for pulmonary embolus, CT angiogram not indicated. Care significantly affected by the following chronic conditions: Crohn's disease. Counseling: I had a detailed discussion with the patient and/or guardian regarding the historical points, exam findings, and any diagnostic results supporting the discharge/admit diagnosis, lab results, radiology results, the need for outpatient follow up, to return to the emergency department if symptoms worsen or persist or if there are any questions or concerns that arise at home. Response to treatment: the patient's symptoms have markedly improved after treatment. 01/22 05:41 Order name: Basic Metabolic Panel; Complete Time: 06:37 rt 01/22 05:41 Order name: CBC with Diff; Complete Time: 06:37 rt 01/22 05:41 Order name: LFT's; Complete Time: 06:37 rt 01/22 05:41 Order name: Magnesium; Complete Time: 06:37 rt 01/22 05:41 Order name: Troponin HS; Complete Time: 06:37 rt 01/22 05:41 Order name: SARS RAPID; Complete Time: 06:37 rt 01/22 05:41 Order name: Influenza Screen (a \T\ B); Complete Time: 06:37 rt 01/22 05:41 Order name: XRAY Chest (1 view) rt 01/22 05:41 Order name: EKG; Complete Time: 05:42 rt 01/22 05:41 Order name: Cardiac monitoring; Complete Time: 05:42 rt 01/22 05:41 Order name: EKG - Nurse/Tech; Complete Time: 05:56 rt 01/22 05:41 Order name: IV Saline Lock; Complete Time: 05:50 rt 01/22 05:41 Order name: Labs collected and sent; Complete Time: 05:50 rt 01/22 05:41 Order name: O2 Per Protocol; Complete Time: 05:42 rt 01/22 05:41 Order name: O2 Sat Monitoring; Complete Time: 05:42 rt EC:17 Rate is 68 beats/min. Rhythm is regular, Normal Sinus Rhythm with No ectopy. QRS [place] rt is Normal. OR interval is normal. QRS interval is normal. QT interval is normal. No Q waves. T waves are Normal. No ST changes noted. Interpreted by me. Administered Medications: No medications were administered Disposition Summary: 01/23/24 06:52 Discharge Ordered Notes: Location: Home rt Problem: new rt Symptoms: have improved rt Condition: Stable rt Diagnosis - COVID-19 rt Followup: rt - With: Private Physician - When: 5 - 6 days - Reason: Discharge Instructions: - Discharge Summary Sheet rt - COVID-19 rt Forms: - Medication Reconciliation Form rt - Antibiotic Education rt - Prescription Opioid Use rt - Patient Portal Instructions rt - Leadership Thank You Letter rt Signatures: Dispatcher [employer] Keyla Holliday RN RN ss El Mckeon MD MD rt
[2024-01-23 07:23] VITALS: TEMP 99.7
[2024-01-23 07:24] VITALS: BP 126/79; O2SAT 96
--- NOTE | 2024-01-23 10:36 | RAD REPORT ---
EXAM DESCRIPTION: XR Chest 1 View AP CLINICAL HISTORY: Cough COMPARISON: Chest 1 View AP 11/25/2023 report without images TECHNIQUE: Chest 1 View AP FINDINGS: Heart size appears upper limits normal and may be partly due to portable AP technique. Small rounded left pulmonary hilar calcifications likely represent calcified lymph nodes of old granu lomatous disease. Small calcified lateral mid/lower level lung nodule measuring about 10 x 9 mm. This likely represents old granuloma. No focal consolidation, significant pulmonary edema, lung mass, pleural effusion, or pneumothorax. Mild bilateral acromioclavicular DJD. Mild diffuse osteopenia. IMPRESSION: No radiographic evidence of acute chest disease. Electronically signed by: Mau Toure MD 01/23/2024 06:43 AM CDT RP Due to temporary technical issues with the PACS/Fluency reporting system, reports are being signed by the in house radiologist without review as a courtesy to ensure prompt reporting. The interpreting r adiologist is fully responsible for the content of the report.
--- OUTSIDE RECORDS SUMMARY | 2024-01-23 14:40 | XMS REPORT | Continuity of Care Document ---
Author Name Unknown Address [address] [facility] [address] [place] [address] [facility] thconnect Address [address] [facility] [address] [place] [address] Care Team Providers Care Web Content Editor Name Role Phone Unknown, Physician Primary Care Physician Reese Rod Attending Clinician Unavailable Fernanda Lockwood Attending Clinician Unavailable ROBBIN CARROLL Attending Clinician Unavailable Team, [facility] Attending Robbin Nassar MD Attending Clinician INA MIKE Attending Clinician Briana Ina Nolan MD Attending Clinician Lab, Ang - Db Attending Clinician Unavailable WARD SANTOS Attending Clinician Unavaila julio CALDERAShania Attending Clinician Doctor Unassigned, [place] Attending Clinician U navailable Ajibade_O_AH Attending Clinician Unavailable Ige-Jerica_Skylar_AH Attending Clinician Unavailable LUCHO ALFARO Attending Clinician Unavailable Lucho Alfaro NP Attending Clinician Ajibade_O_AH Admitting Clinician Unavailable Ige-Jerica_Sklyar_AH Admitting Clinician Unavailable LUCHO ALFARO Admitting Clinician Unavailable Payers Payer Name Policy Type Policy Number Effective Date Expirati on Date Source WELLCARE/WELLCA RE [place] [id number] 2021 00:00:00 [facility] MCR Advantage PPO [id number] [facility] WellCare [facility] C1 [id number] [facility] Wellcare C1 [id number] [facility] Wellcare C1 [id number] [facility] WELLCARE OF [place] (MEDICARE REPLACEMENT/ADV ANTAGE - HMO) [id number] 2019 00:00:00 Problems Condition Name Condition Details Condition Category Status Onset Date Resolution Date Last Treatment Date Treating Clinician Comments Source Acute midline low back pain with bilateral sciatica Acute midline low back pain with bilateral sciatica Disease Active 10-02 00:00: 00 [facility] Medicare annual wellness visit, subsequent Medicare annual wellness visit, subsequent Disease Active 10-02 00:00: 00 [facility] Chronic pain syndrome Chronic pain syndrome Disease Active 07-04 00:00: 00 [facility] Anxiety Anxiety Disease Active 07-04 00:00: 00 [facility] Crohn's disease of both small and large intestine with other complicati on Crohn's disease of both small and large intestine with other complicati on Disease Active 07-04 00:00: 00 [facility] Low HDL (under 40) Low HDL (under 40) Disease Active 07-04 00:00: 00 [facility] Nocturia Nocturia Disease Active 07-04 00:00: 00 [facility] Chronic pancreatit is Chronic pancreatit is Disease Active 2022-06 00:00: 00 [facility] Psoriatic arthritis Psoriatic arthritis Disease Active 2022-06 00:00: 00 [facility] Primary hypertensi on Primary hypertensi on Disease Active 2022-06 00:00: 00 [facility] Other specified glaucoma Other specified glaucoma Disease Active 2022-06 00:00: 00 [facility] Gastroesop hageal reflux disease without esophagiti s Gastroesop hageal reflux disease without esophagiti s Disease Active 2022-06 00:00: 00 [facility] PTSD (post-trau matic stress disorder) PTSD (post-trau matic stress disorder) Disease Active 2022-06 00:00: 00 [facility] No known active problems No known active problems Disease [facility] Memory impairment (finding) Memory impairment (finding) Active Problem 04/22/2019 [facility] Problem Active 2019-04-22 01:06:38 Dieudonne Gordon Neck pain (finding) Neck pain (finding) Active Problem 04/22/2019 [facility] Problem Active 2019-04-22 01:06:38 Dieudonne Gordon Paresthesi a (finding) Paresthesi a (finding) Active Problem 04/22/2019 [facility] Problem Active 2019-04-22 01:06:38 Dieudonne Gordon Simple obesity (disorder) Simple obesity (disorder) Active Problem 04/22/2019 [facility] Problem Active 2019-04-22 01:06:38 Dieudonne Gordon Total retinal detachment Total retinal detachment , right eye Problem [facility] [id number] Acute upper respirator y infection Problem [facility] [id number] Abnormal blood sugar Problem [facility] [id number] Hyperglyce alex Problem [facility] [id number] Generalize d anxiety disorder Problem [facility] [id number] Diverticul osis Problem [facility] [id number] BPH loc w/o ur obs/LUTS Problem [facility] [id number] Arthropath ic psoriasis Problem [facility] Tremor (finding) Tremor (finding) Active Problem 04/22/2019 [facility] Problem Active 2019-04-22 01:06:38 Dieudonne Gordon [id number] Crohn''s disease without complicati on, unspecifie d gastrointe stinal tract location Problem [facility] [id number] Chronic fatigue Problem [facility] [id number] Cervical spondylosi s without myelopathy Problem [facility] [id number] BMI 29.0-29.9, adult Problem [facility] [id number] Nausea Problem [facility] [id number] Lumbar sprain, initial encounter Problem [facility] [id number] Wheezing Problem [facility] [id number] Hospital discharge follow-up Problem [facility] [id number] Acute tonsilliti s, unspecifie d etiology Problem [facility] [id number] Panic disorder with agoraphobi a Problem [facility] Dizziness (finding) Dizziness (finding) Active Problem 04/22/2019 [facility] Problem Active 2019-04-22 01:06:38 Dieudonne Gordon [id number] Asymptomat ic microscopi c hematuria Problem [facility] [id number] Constipati on, unspecifie d constipati on type Problem [facility] [id number] Carotid artery disease, unspecifie d laterality , unspecifie d type Problem [facility] [id number] Right epididymit is Problem [facility] [id number] Prostate nodule Problem [facility] [id number] Narcolepsy without cataplexy Problem [facility] [id number] Pelvic pain Problem [facility] [id number] Disc disorder Problem [facility] [id number] Perineal pain Problem [facility] [id number] Scrotum pain Problem [facility] Hypertensi ve disorder, systemic arterial (disorder) Hypertensi ve disorder, systemic arterial (disorder) Active Problem 04/22/2019 [facility] Problem Active 2019-04-22 01:06:38 Dieudonne Gordon [id number] BPH loc w urin obs/LUTS Problem [facility] [id number] Chronic prostatiti s Problem [facility] Allergies, Adverse Reactions, Alerts Allergy Name Allergy Type Status Severity Reaction(s) Onset Date Inactive Date Treating Clinician Comments Source Trimetho prim Drug Allergy Active Other - See comments - 00:00: 00 Other reaction( s): SWELING [facility] Vancomyc in Drug Allergy Active Other - See comments 07-18 00:00: 00 Other reaction( s): Unknown [facility] TRIMETHO PRIM DRUG INGREDI Active Other-Cmnt 07-18 00:00: 00 [facility] VANCOMYC IN DRUG INGREDI Active Other-Cmnt 07-18 00:00: 00 [facility] Sulfamet hoxazole Allergy to substanc e Active 07-18 00:00: 00 Other reaction( s): SWELING [facility] Trimetho prim Allergy to substanc e Active 07-18 00:00: 00 Other reaction( s): [facility] Vancomyc in Allergy to substanc e Active - 00:00: 00 Other reaction( s): Unknown [facility] Ketorola c Allergy to substanc e Active - 00:00: 00 Other reaction( s): Unknown [facility] Sulfamet hoxazole -Trimeth oprim Drug Allergy Active Rash 2019-0 - 00:00: 00 Other reaction( s): rash [facility] PROMETHA ZINE DRUG INGREDI Active Other-Cmnt 0 - 00:00: 00 [facility] CEPHALEX IN DRUG INGREDI Active Low Rash 2020-0 - 00:00: 00 [facility] SULFAMET HOXAZOLE -TRIMETH OPRIM DRUG Active Low Rash 2020-0 06-27 00:00: 00 [facility] Cephalex in Drug Allergy Active Rash 06-27 00:00: 00 Other reaction( s): rash, SWELLING [facility] Prometha zine Drug Allergy Active Other - See comments 06-27 00:00: 00 Other reaction( s): hives, hives, SWELLING [facility] Prometha zine Allergy to substanc e Active 06-27 00:00: 00 Other reaction( s): hives, hives, SWELLING [facility] Sulfamet hoxazole -Trimeth oprim Allergy to substanc e Active Rash 06-27 00:00: 00 Other reaction( s): rash [facility] Cephalex in Allergy to substanc e Active Rash 06-27 00:00: 00 Other reaction( s): rash, SWELLING [facility] Iodides Propensi ty to adverse reaction s Active Hives 12-06 00:00: 00 [facility] Latex Propensi ty to adverse reaction s Active Rash 12-06 00:00: 00 [facility] Levoflox acin Propensi ty to adverse reaction s Active Anaphylaxis 12-06 00:00: 00 [facility] Ketorola c Trometha mine Propensi ty to adverse reaction s Active Other - See comments 12-06 00:00: 00 Pin needle pains to stomach [facility] IODIDES DRUG Active Hives 12-06 00:00: 00 [facility] LATEX DRUG INGREDI Active Rash 12-06 00:00: 00 [facility] LEVOFLOX ACIN DRUG INGREDI Active Anaphylaxis 12-06 00:00: 00 [facility] KETOROLA C TROMETHA MINE DRUG INGREDI Active Other-Cmnt 12-06 00:00: 00 [facility] Ketorola c Trometha mine Allergy to substanc e Active 12-06 00:00: 00 Other reaction( s): Other - See comments, SWELLINGP in needle pains to stomach [facility] Latex Allergy to substanc e Active Rash 12-06 00:00: 00 [facility] Iodides Allergy to substanc e Active Hives 12-06 00:00: 00 Other reaction( s): Unknown [facility] Iodides Allergy to substanc e Active Hives 12-06 00:00: 00 Other reaction( s): Unknown [facility] Levoflox acin Allergy to substanc e Active Anaphylaxis 2013-06 00:00: 00 Other reaction( s): stops breathing , SWELLING, Unknown [facility] [id number] Drug allergy Active rash [facility] [id number] Drug allergy Active stops breathing [facility] Social History Social Habit Start Date Stop Date Quantity Comments Source [facility] Use [facility] Alcohol intake 2023-10-03 00:00:00 2023-10-03 00:00:00 Ex-drinker (finding) [facility] History of Social function 2023-10-03 00:00:00 2023-10-03 00:00:00 [facility] Alcoholic beverage intake 2023-10-03 00:00:00 2023-10-03 00:00:00 Ex-drinker (finding) [facility] Tobacco use and exposure 2023-04-12 00:00:00 2023-04-12 00:00:[address]ok[address] non-user [facility] Exposure to SARS-CoV-2 (event) 2022-05-02 00:00:00 2022-05-12 11:32:00 Not sure [facility] Sex Assigned At 1960 00:00:00 1960 00:00:00 [facility] Smoking Status Start Date Stop Date Source Tobacco smoking consumption unknown [facility] Never smoked tobacco [facility] Social History 2019-03-28 18:18:16 2019-03-28 18:18:16 [facility] Medications Ordered Medication Name Filled Medication Name Start Date Stop Date Current Medication? Ordering Clinician Indication Dosage Frequency Signature (SIG) Comments Components Source DULoxetine 30 mg capsule 10-02 00:00: 00 Yes [id number] 30mg Take 1 capsule by mouth in the morning. [facility] carvediloL 25 mg tablet 10-02 00:00: 00 Yes [id number] 25mg Take 1 tablet by mouth in the morning and 1 tablet in the evening. Take with meals. [facility] Amylase-Lip ase-Proteas e (CREON) 24,000-76,0 00 -120,000 unit capsule 10-02 00:00: 00 Yes [id number] 88650O Take 1 capsule by mouth in the morning and 1 capsule at noon and 1 capsule in the evening. Take with meals. [facility] pantoprazol e 40 mg EC tablet 10-02 00:00: 00 Yes [id number] 40mg Take 1 tablet by mouth in the morning. [facility] ondansetron 4 mg tablet 10-02 00:00: 00 Yes [id number] 4mg Take 1 tablet by mouth every 6 (six) hours as needed for Nausea and Vomiting (N/V). [facility] albuterol (VENTOLIN HFA) 90 mcg/actuati on inhaler 07-04 14:23: 05 07-04 00:00 :00 No 2{puff} Inhale 2 Puffs every 6 (six) hours as needed for Wheezing or Shortness of Breath. [facility] albuterol 90 mcg/actuati on inhaler 07-04 14:22: 58 07-04 00:00 :00 No 2{puff} Inhale 2 Puffs every 6 (six) hours as needed for Wheezing or Shortness of Breath. [facility] Amylase-Lip ase-Proteas e (CREON) 24,000-76,0 00 -120,000 unit capsule 07-04 14:22: 27 07-04 00:00 :00 No [id number] Take 1 capsule by mouth in the morning and 1 capsule at noon and 1 capsule in the evening. Take with meals. [facility] carvediloL 25 mg tablet 07-04 00:00: 00 10-02 00:00 :00 No [id number] 25mg Take 1 tablet by mouth in the morning and 1 tablet in the evening. Take with meals. [facility] DULoxetine 30 mg capsule 07-04 00:00: 00 10-02 00:00 :00 No [id number] 30mg Take 1 capsule by mouth in the morning. [facility] pantoprazol e 40 mg EC tablet 07-04 00:00: 00 10-02 00:00 :00 No [id number] 40mg Take 1 tablet by mouth in the morning. [facility] ondansetron 4 mg tablet 07-04 00:00: 00 10-02 00:00 :00 No [id number] 4mg Take 1 tablet by mouth every 6 (six) hours as needed for Nausea and Vomiting (N/V). [facility] Amylase-Lip ase-Proteas e (CREON) 24,000-76,0 00 -120,000 unit capsule 07-04 00:00: 00 10-02 00:00 :00 No [id number] Take 1 capsule by mouth in the morning and 1 capsule at noon and 1 capsule in the evening. Take with meals. [facility] carvedilol (COREG) 25 mg tablet 2022-06 15:04: 39 04-12 00:00 :00 No 25mg Take 1 tablet by mouth in the morning and 1 tablet in the evening. Take with meals. [facility] predniSONE 20 mg tablet 2022-06 14:43: 26 04-12 00:00 :00 No 20mg Take 1 tablet by mouth in the morning. [facility] Amylase-Lip ase-Proteas e (CREON) 24,000-76,0 00 -120,000 unit capsule 2022-06 14:26: 48 Yes [id number] Take 1 capsule by mouth in the morning and 1 capsule at noon and 1 capsule in the evening. Take with meals. [facility] albuterol 90 mcg/actuati on inhaler 2022-06 14:26: 48 Yes 2{puff} Inhale 2 Puffs every 6 (six) hours as needed for Wheezing or Shortness of Breath. [facility] blood sugar diagnostic (ONE TOUCH TEST MISC) 2022-06 14:26: 48 Yes One touch ultra blue test strip [facility] HYDROcodone -acetaminop hen (NORCO) 7.5-325 mg per tablet 2022-06 14:22: 42 04-12 00:00 :00 No 1{tbl} Take 1 Tab by mouth every 6 (six) hours as needed for Pain. [facility] LIPASE/PROT EASE/AMYLAS E (CREON 10 ORAL) 2022-06 14:22: 42 04-12 00:00 :00 No Take by mouth. [facility] DULoxetine 30 mg capsule 2022-06 00:00: 00 07-04 00:00 :00 No [id number] 30mg Take 1 capsule by mouth in the morning. [facility] carvediloL 25 mg tablet 2022-06 00:00: 00 07-04 00:00 :00 No [id number] 25mg Take 1 tablet by mouth in the morning and 1 tablet in the evening. Take with meals. [facility] ondansetron 4 mg tablet 02-14 00:00: 00 07-04 00:00 :00 No 4mg Take 1 tablet by mouth every 6 (six) hours as needed for Nausea and Vomiting (N/V). [facility] clonazePAM 1 mg tablet 02-14 00:00: 00 04-12 00:00 :00 No 1mg Take 1 tablet by mouth 2 (two) times daily as needed. [facility] gabapentin 300 mg capsule 02-07 00:00: 00 Yes TAKE 1 CAPSULE TWICE A DAY FOR 28 DAY(S) [facility] pantoprazol e 40 mg EC tablet 12-10 00:00: 00 07-04 00:00 :00 No 40mg Take 1 tablet by mouth in the morning. [facility] clonazePAM 0.5 MG clonazePAM 0.5 MG 09-02 00:00: 00 No QD clonazePAM 0.5 MG clonazePAM 0.5 MG clonazePAM 0.5 MG 2023-0 3-31 00:00: 00 No QD clonazePAM 0.5 MG clonazePAM 0.5 MG clonazePAM 0.5 MG 3-0 3-31 00:00: 00 No QD clonazePAM 0.5 MG clonazePAM 0.5 MG clonazePAM 0.5 MG 3-0 3- 00:00: 00 No QD clonazePAM 0.5 MG clonazePAM 0.5 MG clonazePAM 0.5 MG 3-0 3- 00:00: 00 No QD clonazePAM 0.5 MG clonazePAM 0.5 MG clonazePAM 0.5 MG 3-0 3- 00:00: 00 No QD clonazePAM 0.5 MG Combigan 0.2-0.5 % Combigan 0.2-0.5 % 2021-1 1- 00:00: 00 No 1{drop_ into_af fected_ eye} BID Combigan 0.2-0.5 % clonazePAM 1 MG clonazePAM 1 MG 2021-1 1- 00:00: 00 No QD clonazePAM 1 MG Combigan 0.2-0.5 % Combigan 0.2-0.5 % 1 - 00:00: 00 No 1{drop_ into_af fected_ eye} BID Combigan 0.2-0.5 % clonazePAM 1 MG clonazePAM 1 MG 2021-1 1- 00:00: 00 No QD clonazePAM 1 MG [...] MG clonazePAM 1 MG clonazePAM 1 MG 1-0 - 00:00: 00 No BID clonazePAM 1 MG Flomax 0.4 MG Flomax 0.4 MG 7-22 00:00: 00 07-21 00:00 :00 No 1{capsu le} QD Flomax 0.4 MG Zofran 4 MG Zofran 4 MG 0 5-14 00:00: 00 No BID Zofran 4 MG Zofran 4 MG Zofran 4 MG 0 5-14 00:00: 00 No BID Zofran 4 MG Zofran 4 MG Zofran 4 MG 2020-0 5-14 00:00: 00 No BID Zofran 4 MG Zofran 4 MG Zofran 4 MG 0 5-14 00:00: 00 No BID Zofran 4 MG Zofran 4 MG Zofran 4 MG 0 5-14 00:00: 00 No BID Zofran 4 MG Zofran 4 MG Zofran 4 MG 0 5-14 00:00: 00 No BID Zofran 4 MG Zofran 4 MG Zofran 4 MG 0 5-14 00:00: 00 No BID Zofran 4 MG Zofran 4 MG Zofran 4 MG 0 -14 00:00: 00 No BID Zofran 4 MG acyclovir 5 % ointment 07-21 00:00: 00 04-12 00:00 :00 No [id number] Apply to area(s) 5 (five) times daily. [facility] valsartan 40 mg oral tablet 2018-06 19:12: 00 Yes 0 Refill(s) Memoria roberto Gordon pantoprazol e 40 mg oral enteric coated tablet 09-26 19:00: 00 Yes 40 mg = 1 tab, PO, Daily, # 30 tab, 0 Refill(s) Memoria roberto Gordon Acetaminoph en 325 MG / Hydrocodone Bitartrate 10 MG Oral Tablet [[place] 10/325] 09-26 19:00: 00 Yes 1 tab, PO, QID, 0 Refill(s) Memoria roberto Gordon Clonazepam 2 MG Oral Tablet [Klonopin] 09-26 19:00: 00 Yes 2 mg = 1 tab, PO, BID, # 60 tab, 0 Refill(s) Memoria l Evan Aspirin 81 Aspirin 81 09-14 00:00: 00 Yes Esthela Dunham 1 tablet [facility] Aspirin 81 81 MG Aspirin [...] 00:00: 00 Yes Esthela Dunham 1 puff [facility] Albuterol Sulfate HFA 108 (90 [...] 6 (six) hours as needed for Pain. [facility] LIPASE/PROT EASE/AMYLAS E (CREON 10 ORAL) 12-06 06:42: 52 Yes Take by mouth. [facility] carvedilol (COREG) 25 mg tablet 12-06 06:42: 52 Yes 25mg Take 25 mg by mouth 2 (two) times daily with meals. [facility] metroNIDAZO LE (FLAGYL) 500 mg tablet 12-06 00:00: 00 04-12 00:00 :00 No 500mg Take 1 Tab by mouth 2 (two) times daily. [facility] proMETHazin e (PHENERGAN) 25 mg tablet 12-06 00:00: 00 04-12 00:00 :00 No 25mg Take 1 Tab by mouth every 6 (six) hours as needed for Nausea and Vomiting (N/V). [facility] Clonazepam Clonazepam Yes Esthela Dunham TAKE 1 TABLET BY MOUTH TWICE A DAY [facility] Carvedilol Carvedilol Yes Esthela Dunham take 1 tablet by mouth twice a day [facility] Famotidine Famotidine Yes Esthela Kingfisher 1 tablet at bedtime [facility] Protonix Protonix Yes Esthela Kingfisher 1 tablet [facility] Dicyclomine HCl Dicyclomine HCl Yes Esthela Kingfisher 1 tablet [facility] Ventolin HFA Ventolin HFA Yes Esthela Kingfisher 2 puffs [facility] Valsartan Valsartan Yes Esthela Kingfisher 1 tablet [facility] Hydrocodone -Acetaminop hen Hydrocodone -Acetaminop hen Yes Esthela Kingfisher (Schedule II Drug) TK 1 T PO TID [facility] Dicyclomine HCl 20 MG Dicyclomine HCl 20 MG No 1{table t} QID Dicyclomin e HCl 20 MG OneTouch Ultra - OneTouch Ultra - No OneTouch Ultra - Lactulose 10 GM/15ML Lactulose 10 GM/15ML No 15{ml} Lactulose 10 GM/15ML OneTouch Delica Plus Admree18R - OneTouch Delica Plus Nuuvye59K - No OneTouch Delica Plus Afgjac51A - Famotidine 20 MG Famotidine 20 MG [...] 15{ml} Lactulose 10 GM/15ML OneTouch Delica Plus Ykbwnu10U - OneTouch Delica Plus Tkgwdt12D - No OneTouch Delica Plus Lizyzx40Q - Protonix 40 MG Protonix 40 MG No 1{table t} QD Protonix 40 MG OneTouch Ultra - OneTouch Ultra - No OneTouch Ultra - Ventolin HFA 108 (90 Base) MCG/ACT Ventolin HFA 108 (90 Base) MCG/ACT No 2{puffs } Ventolin HFA 108 (90 Base) MCG/ACT Protonix 40 MG Protonix 40 MG No 1{table t} QD Protonix 40 MG OneTouch Delica Plus Qondna60P - OneTouch Delica Plus Iawlpn34F - No OneTouch Delica Plus Jnhxic09P - Albuterol Sulfate HFA 108 (90 Base) [...] QD Protonix 40 MG OneTouch Delica Plus Poejle44M - OneTouch Delica Plus Squvnf05O - No OneTouch Delica Plus Yeicgf06M - Albuterol Sulfate HFA 108 (90 Base) [...] QD Protonix 40 MG OneTouch Delica Plus Ygnxfp67D - OneTouch Delica Plus Yvxvih05H - No OneTouch Delica Plus Tfmkpq88L - Famotidine 20 MG Famotidine 20 MG [...] QD Protonix 40 MG OneTouch Delica Plus Ynhbuc15R - OneTouch Delica Plus Ywbtxe00K - No OneTouch Delica Plus Auhmmd83X - Famotidine 20 MG Famotidine 20 MG [...] QD Protonix 40 MG OneTouch Delica Plus Hjbnrp19F - OneTouch Delica Plus Oquqkb57L - No OneTouch Delica Plus Qzdobq16J - Famotidine 20 MG Famotidine 20 MG [...] QD Protonix 40 MG OneTouch Delica Plus Kcyrmt47O - OneTouch Delica Plus Grkdcy71H - No OneTouch Delica Plus Hmrqkh16K - Ventolin HFA 108 (90 Base) MCG/ACT Ventolin HFA 108 (90 Base) MCG/ACT No 2{puffs } Ventolin HFA 108 (90 Base) MCG/ACT Carvedilol 25 MG Carvedilol 25 MG No 1{table t_with_ food} BID Carvedilol 25 MG OneTouch Ultra - OneTouch Ultra - No OneTouch Ultra - OneTouch Delica Plus Fviwqq76V - OneTouch Delica Plus Xlsgjg71H - No OneTouch Delica Plus Oupoah36X - Protonix 40 MG Protonix 40 MG No 1{table t} QD Protonix 40 MG Ventolin HFA 108 (90 Base) MCG/ACT Ventolin HFA 108 (90 Base) MCG/ACT No 2{puffs } Ventolin HFA 108 (90 Base) MCG/ACT Carvedilol 25 MG Carvedilol 25 MG No 1{table t_with_ food} BID Carvedilol 25 MG OneTouch Ultra - OneTouch Ultra - No OneTouch Ultra - OneTouch Delica Plus Iutskd86S - OneTouch Delica Plus Ctlyeg58J - No OneTouch Delica Plus Jsinyd60C - Protonix 40 MG Protonix 40 MG No 1{table t} QD Protonix 40 MG Ventolin HFA 108 (90 Base) MCG/ACT Ventolin HFA 108 (90 Base) MCG/ACT No 2{puffs } Ventolin HFA 108 (90 Base) MCG/ACT Carvedilol 25 MG Carvedilol 25 MG No 1{table t_with_ food} BID Carvedilol 25 MG OneTouch Ultra - OneTouch Ultra - No OneTouch Ultra - OneTouch Delica Plus Dindgi15C - OneTouch Delica Plus Uurswu58J - No OneTouch Delica Plus Uahqtx67L - Protonix 40 MG Protonix 40 MG [...] No OneTouch Ultra - OneTouch Delica Plus Wzsvrn59P - OneTouch Delica Plus Ypowws56L - No OneTouch Delica Plus Eruavc13Q - HYDROcodone -Acetaminop hen 10-325 MG HYDROcodone [...] No OneTouch Ultra - OneTouch Delica Plus Eskrtt73H - OneTouch Delica Plus Kcpvbc39N - No OneTouch Delica Plus Eqmcth98H - Albuterol Sulfate HFA 108 (90 Base) [...] No OneTouch Ultra - OneTouch Delica Plus Jkwrqr56I - OneTouch Delica Plus Zlzxki52L - No OneTouch Delica Plus Jxapwc48S - Albuterol Sulfate HFA 108 (90 Base) MCG/ACT Albuterol Sulfate HFA 108 (90 Base) MCG/ACT No Albuterol Sulfate HFA 108 (90 Base) MCG/ACT HYDROcodone -Acetaminop hen 10-325 MG HYDROcodone -Acetaminop hen 10-325 MG No HYDROcodon e-Acetamin ophen 10-325 MG Protonix 40 MG Protonix 40 MG No 1{table t} QD Protonix 40 MG Creon Creon 12-23 00:00 :00 No Esthela Kingfisher take by mouth 1 capsule 3 times a day as directed [facility] Vital Signs Vital Name Observation Time Observation Value Comments S ourfred Systolic blood pressure 2023-10-03 21:46:00 142 mm[Hg] [facility] Diastolic blood pressure 2023-10-03 21:46:00 92 mm[Hg] [facility] Heart rate 2023-10-03 21:46:00 86 /min [facility] Oxygen saturation in Arterial blood by Pulse oximetry 2023-10-03 21:46:00 96 /min [facility] Systolic blood pressure 2023-10-03 21:03:00 142 mm[Hg] [facility] Diastolic blood pressure 2023-10-03 21:03:00 92 mm[Hg] [facility] Heart rate 2023-10-03 21:03:00 86 /min [facility] Body height 2023-10-03 21:03:00 177.8 cm [facility] Body weight 2023-10-03 21:03:00 99.202 kg [facility] BMI 2023-10-03 21:03:00 31.38 kg/m2 [facility] Systolic blood pressure 2023-07-04 20:00:00 142 mm[Hg] [facility] Diastolic blood pressure 2023-07-04 20:00:00 84 mm[Hg] [facility] Heart rate 2023-07-04 19:59:00 58 /min [facility] Body temperature 2023-07-04 19:59:[address] [facility] Respiratory rate 2023-07-04 19:59:00 17 /min [facility] Body height 2023-07-04 19:59:00 175.3 cm [facility] Body weight 2023-07-04 19:59:00 99.973 kg [facility] BMI 2023-07-04 19:59:00 32.55 kg/m2 [facility] Oxygen saturation in Arterial blood by Pulse oximetry 2023-07-04 19:59:00 97 /min [facility] Systolic blood pressure 2023-04-12 20:19:00 149 mm[Hg] [facility] Diastolic blood pressure 2023-04-12 20:19:00 90 mm[Hg] [facility] Heart rate 2023-04-12 18:55:00 55 /min [facility] Respiratory rate 2023-04-12 18:55:00 18 /min [facility] Body height 2023-04-12 18:55:00 177.8 cm [facility] 2023-04-12 18:55:00 99.202 kg [facility] BMI 2023-04-12 18:55:00 31.38 kg/m2 [facility] Oxygen saturation in Arterial blood by Pulse oximetry 2023-04-12 18:55:00 98 /min [facility] height 2022-08-30 15:20:00 70 [in_i] Commo n [facility] weight 2022-08-30 15:20:00 216.2 [lb_av] Co mmon [facility] temperature 2022-08-30 15:20:00 97.2 [degF] Com [facility] bmi 2022-08-30 15:20:00 31.02 kg/m2 Comm on [facility] oximetry 2022-08-30 15:20:00 96 % Commo n [facility] respiratory rate 2022-08-30 15:20:00 17 /min [facility] blood pressure systolic 2022-08-30 15:20:00 134 mm[Hg] [facility] blood pressure diastolic 2022-08-30 15:20:00 80 mm[Hg] Common [facility] height 2022-04-11 15:40:00 70 [in_i] Commo n [facility] weight 2022-04-11 15:40:00 206.9 [lb_av] Co mmon [facility] temperature 2022-04-11 15:40:00 97.6 [degF] Com [facility] bmi 2022-04-11 15:40:00 29.68 kg/m2 Comm on [facility] oximetry 2022-04-11 15:40:00 98 % Commo n [facility] respiratory rate 2022-04-11 15:40:00 18 /min [facility] blood pressure systolic 2022-04-11 15:40:00 138 mm[Hg] [facility] blood pressure diastolic 2022-04-11 15:40:00 72 mm[Hg] [facility] height 2022-02-09 13:50:00 70 [in_i] Commo n [facility] weight 2022-02-09 13:50:00 207 [lb_av] Comm on [facility] temperature 2022-02-09 13:50:00 97.9 [degF] Com mon [facility] bmi 2022-02-09 13:50:00 29.7 kg/m2 Commo n [facility] oximetry 2022-02-09 13:50:00 96 % Commo n [facility] respiratory rate 2022-02-09 13:50:00 18 /min Common [facility] blood pressure systolic 2022-02-09 13:50:00 132 mm[Hg] [facility] blood pressure diastolic 2022-02-09 13:50:00 70 mm[Hg] Common [facility] height 2021-12-07 09:20:00 70 [in_i] Commo n [facility] weight 2021-12-07 09:20:00 206.0 [lb_av] Co mmon [facility] temperature 2021-12-07 09:20:00 98.2 [degF] Com mon [facility] bmi 2021-12-07 09:20:00 29.55 kg/m2 Comm on [facility] oximetry 2021-12-07 09:20:00 99 % Commo n [facility] respiratory rate 2021-12-07 09:20:00 18 /min Common [facility] blood pressure systolic 2021-12-07 09:20:00 137 mm[Hg] [facility] blood pressure diastolic 2021-12-07 09:20:00 70 mm[Hg] Common [facility] height 2021-02-23 14:30:00 70 [in_i] Commo n [facility] weight 2021-02-23 14:30:00 190.0 [lb_av] Co mmon [facility] temperature 2021-02-23 14:30:00 98.3 [degF] Com mon [facility] bmi 2021-02-23 14:30:00 27.26 kg/m2 Comm on [facility] blood pressure systolic 2021-02-23 14:30:00 138 mm[Hg] [facility] blood pressure diastolic 2021-02-23 14:30:00 74 mm[Hg] Common [facility] Systolic blood pressure 2020-12-28 20:04:00 155 mm[Hg] [facility] Diastolic blood pressure 2020-12-28 20:04:00 82 mm[Hg] [facility] Heart rate 2020-12-28 20:04:00 61 /min [facility] Body temperature 2020-12-28 20:04:[address] [facility] Respiratory rate 2020-12-28 20:04:00 16 /min [facility] Body height 2020-12-28 20:04:00 177.8 cm [facility] Body weight 2020-12-28 20:04:00 86.183 kg [facility] BMI 2020-12-28 20:04:00 27.26 kg/m2 [facility] Oxygen saturation in Arterial blood by Pulse oximetry 2020-12-28 20:04:00 97 /min [facility] Systolic blood pressure 2019-07-22 04:00:00 147 mm[Hg] [facility] Diastolic blood pressure 2019-07-22 04:00:00 87 mm[Hg] [facility] Heart rate 2019-07-22 04:00:00 54 /min [facility] Respiratory rate 2019-07-22 04:00:00 20 /min [facility] Oxygen saturation in Arterial blood by Pulse oximetry 2019-07-22 04:00:00 99 /min [facility] Body temperature 2019-07-21 23:21:[address] [facility] Body weight 2019-07-21 23:21:00 86.183 kg [facility] BMI 2019-07-21 23:21:00 27.26 kg/m2 [facility] Systolic blood pressure 2019-07-22 04:00:00 147 mm[Hg] [facility] Diastolic blood pressure 2019-07-22 04:00:00 87 mm[Hg] [facility] Heart rate 2019-07-22 04:00:00 54 /min [facility] Respiratory rate 2019-07-22 04:00:00 20 /min [facility] Oxygen saturation in Arterial blood by Pulse oximetry 2019-07-22 04:00:00 99 /min [facility] Body temperature 2019-07-21 23:21:[address] [facility] Body weight 2019-07-21 23:21:00 86.183 kg [facility] BMI 2019-07-21 23:21:00 27.26 kg/m2 [facility] Systolic (mm Hg) 2019-03-28 18:17:00 [facility] Diastolic (mm Hg) 2019-03-28 18:17:00 [facility] Heart Rate 2019-03-28 18:17:00 [facility]itory Rate 2019-03-28 18:17:00 [facility] Height 2019-03-28 18:17:00 172.72 cm [facility] Weight 2019-03-28 18:17:00 [facility] BMI Calculated 2019-03-28 18:17:00 [facility] BMI Calculated 2018-09-26 18:51:00 [facility] Weight 2018-09-26 18:51:00 [facility] Height 2018-09-26 18:51:00 172.72 cm [facility] Heart Rate 2018-09-26 18:51:00 [facility] Respitory Rate 2018-09-26 18:51:00 [facility] Systolic (mm Hg) 2018-09-26 18:51:00 [facility] Diastolic (mm Hg) 2018-09-26 18:51:00 [facility] Procedures Procedure Date / Time Performed Performing Clinicia n Source NOTICE OF PRIVACY PRACTICES 2020-12-28 19:58:01 Doctor Unassigned, [place] [facility] CONSENT/REFUSAL FOR DIAGNOSIS AND TREATMENT 2020-12-28 19:57:10 Doctor Unassigned, [place] [facility] US SCROTUM AND CONTENTS 2019-07-22 03:08:[address] [facility] NOTICE OF PRIVACY PRACTICES 2019-07-21 23:12:14 Doctor Unassigned, [place] [facility] CONSENT/REFUSAL FOR DIAGNOSIS AND TREATMENT 2019-07-21 23:07:41 Doctor Unassigned, [place] [facility] Encounters Start Date/Time End Date/Time Encounter Type Admission Type Attending [facility] Care Facility Care Department Encounter ID Source 2023-01-11 16:27:00 [facility] [id number] [facility] 2022-09-12 13:14:00 [facility] [id number] [facility] 2022-08-26 08:40:00 [facility] [id number] [facility] 2022-08-17 14:47:00 [facility] [id number] [facility] 2022-06-02 08:30:58 [id number] [facility] 2022-05-24 13:55:01 [facility] [id number] [facility] 2022-05-23 10:20:01 [facility] [id number] [facility] 2022-05-04 14:32:40 [facility] [id number] [facility] 2022-04-07 13:30:01 [facility] [id number] [facility] 2022-04-04 10:22:48 [facility] [id number] [facility] 2022-03-31 12:03:45 [facility] [id number] [facility] 2022-03-30 15:15:47 [facility] [id number] [facility] 2022-02-09 13:48:01 Outpatient Jenkins, [facility] [id number] [facility] 2021-12-08 11:45:00 Outpatient Jenkins, [facility] [id number] [facility] 2021-12-07 09:25:00 Outpatient Jenkins, [facility] [id number] [facility] 2021-12-03 09:35:01 Outpatient Jenkins, [facility] [id number] [facility] 2021-06-30 13:05:56 Outpatient Jenkins, [facility] [id number] [facility] 2021-06-30 12:47:29 Outpatient Jenkins, [facility] [id number] [facility] 2021-06-30 12:36:27 Outpatient Jenkins, [facility] [id number] [facility] 2021-06-30 12:35:26 Outpatient Jenkins, [facility] [id number] [facility] 2021-06-30 12:28:53 Outpatient Jenkins, [facility] ST[facility] [id number] [facility] 2021-06-30 12:26:11 Outpatient Jenkins, [facility] ST[facility] [id number] [facility] 2021-06-30 12:12:23 Outpatient Jenkins, [facility] [id number] [facility] 2021-06-30 12:04:45 [facility] [id number] [facility] 2021-06-30 11:55:15 [facility] [id number] [facility] 2021-06-30 11:52:56 [facility] [id number] [facility] 2021-06-30 11:52:32 [facility] [id number] [facility] 2021-06-30 11:02:50 Outpatient Fernanda Lockwood [facility] [id number] [facility] 2021-06-30 11:02:33 Outpatient Fernanda Lockwood [facility] [id number] [facility] 2023-12-18 00:00:00 2023-12-18 16:23:17 Telephone Team, [facility] 1..840.114 350.1.13.10 4.2.7.2.686 [id number] [facility] 2023-10-03 14:00:00 2023-10-03 16:58:23 Office Visit Robbin Carroll [facility] 1.2.840.114 350.1.13.10 4.2.7.2.686 [id number] [facility] 2023-10-03 16:00:00 2023-10-03 16:38:39 Outpatient R ROBBIN CARROLL [facility] [id number] [facility] 2023-10-03 16:00:00 2023-10-03 16:38:39 Office Visit Robbin Carroll [facility] 1.2.840.114 350.1.13.10 4.2.7.2.686 [id number] [facility] 2023-07-04 14:00:00 2023-07-04 14:41:34 Outpatient R ROBBIN CARROLL [facility] [id number] [facility] 2023-07-04 14:00:00 2023-07-04 14:41:34 Office Visit DruhelderRobbin [facility] 1..840.114 350.1.13.10 4.2.7.2.686 [id number] [facility] 2023-05-26 14:20:00 2023-05-26 14:20:00 Outpatient R INA MIKE [facility] [id number] [facility] 2023-04-26 00:00:00 2023-04-26 00:00:00 Refill Ina Mike [facility] 1.840.114 350.1.13.10 4.2.7.2.686 [id number] [facility] 2023-04-12 15:15:00 2023-04-12 15:42:32 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 Visit 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, Ina Charles [facility] 1..840.114 350.1.13.10 4.2.7.2.686 [id number] [facility] 2023-04-12 15:15:00 2023-04-12 15:15:00 Outpatient R INA MIKE [facility] [id number] [facility] 2023-04-12 14:00:00 2023-04-12 15:06:59 Office Visit Ina Mike [facility] 1..840.114 350.1.13.10 4.2.7.2.686 [id number] [facility] 2022-12-20 00:00:00 2022-12-20 00:00:00 (TEL) STLMLC STLMLC [id number] [facility] 2022-11-03 00:00:00 2022-11-03 00:00:00 (TEL) STLMLC STLMLC [id number] [facility] 2022-09-02 00:00:00 2022-09-02 00:00:00 (TEL) STLMLC STLMLC [id number] [facility] 2022-09-02 00:00:00 2022-09-02 00:00:00 (TEL) STLMLC STLMLC [id number] [facility] 2022-08-30 00:00:00 2022-08-30 00:00:00 OFFICE VISIT ESTAB PT LEVEL 4 STLMLC STLMLC [id number] [facility] 2022-08-17 00:00:00 2022-08-17 00:00:00 (TEL) STLMLC STLMLC [id number] [facility] 2022-06-16 13:00:00 2022-06-16 13:00:00 Outpatient [facility] [id number] [facility] 2022-05-12 11:30:00 2022-05-12 13:38:22 Office Visit Ward Santos [facility] [id number] [facility] 1.2.840.114 350.1.13.58 [id number] [id number] [facility] 2022-04-19 00:00:00 2022-04-19 00:00:00 (TEL) STLMLC STLMLC [id number] [facility] 2022-04-14 10:30:00 2022-04-14 12:17:23 [facility] [id number] [facility] 2022-04-11 00:00:00 2022-04-11 00:00:00 OFFICE VISIT ESTAB PT LEVEL 4 STLMLC STLMLC [id number] [facility] 2022-04-04 10:30:00 2022-04-04 16:18:07 Office Visit Ward Santos [facility] [address] 1.2.840.114 350.1.13.58 [id number] [id number] [facility] 2022-03-25 11:00:00 2022-03-25 11:00:00 [facility]patient [facility] [id number] [facility] 2022-03-24 00:00:00 2022-03-24 00:00:00 (TEL) STLMLC STLMLC [id number] [facility] 2022-03-23 00:00:00 2022-03-23 00:00:00 (TEL) STLMLC STLMLC [id number] [facility] 2022-03-23 00:00:00 2022-03-23 00:00:00 (TEL) STLMLC STLMLC [id number] [facility] 2022-03-23 00:00:00 2022-03-23 00:00:00 (TEL) STLMLC STLMLC [id number] [facility] 2022-02-09 00:00:00 2022-02-09 00:00:00 OFFICE VISIT ESTAB PT LEVEL 4 STLMLC STLMLC [id number] [facility] 2021-12-07 00:00:00 2021-12-07 00:00:00 OFFICE VISIT ESTAB PT LEVEL 4 STLMLC STLMLC [id number] [facility] 2021-03-24 00:00:00 2021-03-24 00:00:00 (TEL) STLMLC STLMLC [id number] [facility] 2021-02-23 00:00:00 2021-02-23 00:00:00 (TELEAUD) AUDIO TELEMEDICI NE STLMLC STLMLC [id number] [facility] 2021-02-22 00:00:00 2021-02-22 00:00:00 (TEL) STLMLC STLMLC [id number] [facility] 2020-12-28 15:10:00 2020-12-28 16:55:00 Emergency Shania Waters [facility] 1.2.840.114 350.1.13.10 4.2.7.2.686 [id number] [facility] 2020-12-28 14:57:00 2020-12-28 14:57:00 Emergency X [facility] ERT [id number] [facility] 2020-12-28 00:00:00 2020-12-28 00:00:00 Orders Only Doctor Unassigned, [place] [facility] 1.2.840.114 350.1.13.10 4.2.7.2.686 [id number] [facility] 2020-12-24 00:00:00 2020-12-24 00:00:00 Outpatient STLMLC STLMLC [id number] [facility] 2020-12-17 00:00:00 2020-12-17 00:00:00 Outpatient STLMLC STLMLC [id number] [facility] 2020-12-04 00:00:00 2020-12-04 00:00:00 Outpatient STLMLC STLMLC [id number] [facility] 2020-10-22 00:00:00 2020-10-22 00:00:00 Outpatient STLMLC STLMLC [id number] [facility] 2020-10-15 00:00:00 2020-10-15 00:00:00 Outpatient STLMLC STLMLC [id number] [facility] 2020-10-07 00:00:00 2020-10-07 00:00:00 Outpatient STLMLC STLMLC [id number] [facility] 2020-09-07 00:00:00 2020-09-07 00:00:00 Outpatient STLMLC STLMLC [id number] [facility] 2020-08-06 00:00:00 2020-08-06 00:00:00 Outpatient STLMLC STLMLC [id number] [facility] 2020-07-09 00:00:00 2020-07-09 00:00:00 Outpatient STLMLC STLMLC [id number] [facility] 2020-06-09 00:00:00 2020-06-09 00:00:00 Outpatient STLMLC STLMLC [id number] [facility] 2020-05-21 00:00:00 2020-05-21 00:00:00 Outpatient STLMLC STLMLC [id number] [facility] 2020-05-14 00:00:00 2020-05-14 00:00:00 Outpatient STLMLC STLMLC [id number] [facility] 2020-04-28 00:00:00 2020-04-28 00:00:00 Outpatient STLMLC STLMLC [id number] [facility] 2020-04-16 00:00:00 2020-04-16 00:00:00 Outpatient STLMLC STLMLC [id number] [facility] 2020-03-18 00:00:00 2020-03-18 00:00:00 Outpatient STLMLC STLMLC [id number] [facility] 2020-03-18 00:00:00 2020-03-18 00:00:00 Outpatient STLMLC STLMLC [id number] [facility] 2020-03-10 00:00:00 2020-03-10 00:00:00 Outpatient STLMLC STLMLC [id number] [facility] 2020-01-30 04:28:00 2020-01-30 04:28:00 Outpatient Ajibade_O_A H VFP VFP [id number] [facility] 2020-01-30 04:28:00 2020-01-30 04:28:00 Outpatient Ajibade_O_A H VFP VFP [id number] [facility] 2020-01-30 04:28:00 2020-01-30 04:28:00 Outpatient Ajibade_O_A H VFP VFP [id number] [facility] 2020-01-30 04:28:00 2020-01-30 04:28:00 Outpatient Ajibade_O_A H VFP VFP [id number] [facility] 2019-07-24 07:17:00 2019-07-24 07:17:00 Outpatient Ige-Odunuga _J_AH VFP VFP [id number] [facility] 2019-07-24 07:17:00 2019-07-24 07:17:00 Outpatient Ige-Odunuga _J_AH VFP VFP [id number] [facility] 2019-07-21 18:06:23 2019-07-21 22:09:00 Emergency X LUCHO ALFARO [facility] ERT [id number] [facility] 2019-07-21 18:06:23 2019-07-21 22:09:00 Emergency Lucho Alfaro [facility] 1.2.840.114 350.1.13.10 4.2.7.2.686 [id number] [facility] 2019-07-21 18:06:23 2019-07-21 22:09:00 [facility] 1.2.840.114 350.1.13.10 4.2.7.2.686 [id number] 2019-07-15 15:01:00 2019-07-15 15:01:00 [facility] [id number] [facility] 2019-07-09 16:46:00 2019-07-09 16:46:00 [facility] [id number] [facility] 2019-07-08 14:51:00 2019-07-08 14:51:00 [facility] [id number] [facility] 2019-07-08 08:00:00 2019-07-08 08:00:00 [facility] [id number] [facility] 2019-07-04 13:00:00 2019-07-04 13:00:00 [facility] [id number] [facility] 2019-07-02 14:32:00 2019-07-02 14:32:00 [facility] [place] [facility] [id number] [facility] 2019-06-27 14:40:00 2019-06-27 14:40:00 [facility] [id number] [facility] 2019-06-03 11:17:00 2019-06-03 11:17:00 [facility] [address] [place] [facility] [id number] [facility] 2019-04-18 18:37:59 2019-04-20 05:59:59 Outside Medical Records nullFlavo r [facility] [place] [id number] Dieudonne Gordon 2019-04-11 21:30:00 2019-04-11 21:30:00 Ambulatory Pre-Reg nullFlavo r [facility] [place] [id number] Dieudonne Gordon 2019-04-09 15:20:00 2019-04-09 15:20:00 [facility] [address] [place] [facility] [id number] [facility] 2019-04-01 13:58:44 2019-04-03 04:59:59 Outside Medical Records nullFlavo r [facility] [place] [id number] Dieudonne Gordon 2019-03-28 18:00:00 2019-03-29 04:59:59 Outpatient nullFlavo r [facility] [place] [id number] Dieudonne Gordon 2019-02-19 14:40:00 2019-02-19 14:40:[address] [facility] [address] [facility] [place] [facility] [id number] [facility] 2018-12-11 11:21:00 2018-12-11 11:21:[address] [facility] [place] [facility] [id number] [facility] 2018-11-19 14:40:00 2018-11-19 14:40:[address] [facility] [facility] [id number] [facility] 2018-10-31 18:45:00 2018-10-31 18:45:00 Ambulatory Pre-Reg nullFlavo r [facility] [id number] Dieudonne Gordon 2018-09-26 18:30:00 2018-09-27 04:59:59 Outpatient nullFlavo r [facility] [id number] Dieudonne Gordon 2018-09-17 16:00:00 2018-09-17 16:00:00 [facility] [place] [facility] [id number] [facility] 2018-08-02 16:07:00 2018-08-02 16:07:00 [facility] [id number] [facility] 2018-08-02 16:05:00 2018-08-02 16:05:00 [email or web address] Medicine [id number] [facility] 2018-06-18 16:00:00 2018-06-18 16:00:00 [facility] [address] [place] [facility] [id number] [facility] 2018-01-18 14:00:00 2018-01-18 14:00:00 [facility] [address] [facility] [id number] [facility] 2017-09-19 09:33:00 2017-09-19 09:33:00 [facility] [address] [facility] [id number] [facility] 2017-09-14 13:00:00 2017-09-14 13:00:00 [facility] [id number] [facility] 2017-09-12 11:05:00 2017-09-12 11:05:00 [facility] [id number] [facility] 2017-08-29 15:30:00 2017-08-29 15:30:00 [facility] [id number] [facility] Results Test Description Test Time Test Comments Results Resul t Comments Source US SCROTUM AND CONTENTS 2019-07-06 03:19:48 No evidence for testicular torsion. No definite evidence for epididymo-orchitis. RL: 460 AFC: [id number] Ordering physician: LUCHO ALFARO INDICATION: Scrotal pain [...] torsion.No definite evidence for epididymo-orchitis. RL: 460AF: [id number] signed by Kristen Valdez MD, PhD at 07/21/2019 9:[address] [facility] Notes Date/Time Note Provider Source 2023-12-18 16:19:38 Records Update Encounter Managed Care Team completed a Care Everywhere Search to update records. Patient was not contacted. Sarah Rosas [facility]
--- NOTE | 2024-01-23 17:45 | EKG ---
Test Date: 2024-01-23 Test Time: 06:04:06 [employer]: LUCY MEASUREMENT RESULTS: Intervals: Rate: 68 AL: 152 QRSD: 82 QT: 384 QTc: 408 [place]: P: 16 AL: 152 QRS: 0 T: 17 INTERPRETIVE STATEMENTS: Normal sinus rhythm Normal ECG Compared to ECG 11/25/2023 01:42:43 Sinus bradycardia no longer present Electronically Signed On 01-23-24 17:44:03 CDT by Nils Haq
== END 2024-01-23 07:00 | disposition home or self-care (01) ==
LOC: ER 05:24
DX: U07.1 COVID-19 (principal); I10 Essential (primary) hypertension; F17.220 Nicotine dependence, chewing tobacco, uncomplicated; Z28.310 Unvaccinated for COVID-19
CPT/HCPCS: 36415; 71045; 80048; 80076; 83735; 84484; 85025; 87804; 87811; 93005

== ENCOUNTER 2024-01-25 03:49 | Emergency (ER) | payer OTHER ==
--- OUTSIDE RECORDS SUMMARY | 2024-01-25 03:56 | XMS REPORT | Continuity of Care Document ---
Author Name Unknown Address [address] [facility] [address] [place] [address] [facility] thconnect Address [address] [facility] 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 Name Role Phone Unknown, Physician Primary Care Physician Reese Rod Attending Clinician Unavailable Fernanda Lockwood Attending Clinician Unavailable ROBBIN CARROLL Attending Clinician Unavailable Team, [facility] Attending Robbin Nassar MD Attending Clinician INA MIKE Attending Clinician Briana Ina Nolan MD Attending Clinician Lab, Ang - Db Attending Clinician Unavailable WARD SANTOS Attending Clinician Unavaila julio CALDERAShania Attending Clinician Doctor Unassigned, Johnston Attending Clinician U navailable Ajibade_O_AH Attending Clinician Unavailable Ige-Jerica_Skylar_AH Attending Clinician Unavailable LUCHO ALFARO Attending Clinician Unavailable Lucho Alfaro NP Attending Clinician Ajibade_O_AH Admitting Clinician Unavailable Ige-Jerica_Skylar_AH Admitting Clinician Unavailable LUCHO ALFARO Admitting Clinician Unavailable Payers Payer Name Policy Type Policy Number Effective Date Expirati on Date Source WELLCARE/WELLCA RE [place] [id number] 2021 00:00:00 [facility] MCR Advantage PPO [id number] [facility] WellCare [facility] C1 [id number] [facility]care C1 [id number] [facility] Wellcare C1 [id number] [facility] WE[place] OF [place] (MEDICARE REPLACEMENT/ADV ANTAGE - HMO) [id number] 2019 00:00:00 Problems Condition Name Condition Details Condition Category Status Onset Date Resolution Date Last Treatment Date Treating Clinician Comments Source Acute midline low back pain with bilateral sciatica Acute midline low back pain with bilateral sciatica Disease Active 10-02 00:00: [facility] Medicare annual wellness visit, subsequent Medicare annual wellness visit, subsequent Disease Active 10-02 00:00: 00 [facility] Chronic pain syndrome Chronic pain syndrome Disease Active 07-04 00:00: 00 [facility] Anxiety Anxiety Disease Active 07-04 00:00: 00 [facility] Crohn's disease of both small and large intestine with other complicati on Crohn's disease of both small and large intestine with other complicati on Disease Active 07-04 00:00: 00 [facility] Low HDL (under 40) Low HDL (under 40) Disease Active 07-04 00:00: 00 [facility] Nocturia Nocturia Disease Active 07-04 00:00: 00 [facility] Chronic pancreatit is Chronic pancreatit is Disease Active 2022-06 00:00: 00 [facility] Psoriatic arthritis Psoriatic arthritis Disease Active 2022-06 00:00: 00 [facility] Primary hypertensi on Primary hypertensi on Disease Active 2022-06 00:00: 00 [facility] Other specified glaucoma Other specified glaucoma Disease Active 2022-06 00:00: 00 [facility] Gastroesop hageal reflux disease without esophagiti s Gastroesop hageal reflux disease without esophagiti s Disease Active 2022-06 00:00: 00 [facility] PTSD (post-trau matic stress disorder) PTSD (post-trau matic stress disorder) Disease Active 2022-06 00:00: 00 [facility] No known active problems No known active problems Disease [facility] Memory impairment (finding) Memory impairment (finding) [...] Neuro Problem Active 2019-04-22 01:06:38 Dieudonne Gordon Tremor (finding) Tremor (finding) Active Problem 04/22/2019 [facility] Problem Active 2019-04-22 01:06:38 Dieudonne Gordon Dizziness (finding) Dizziness (finding) Active Problem 04/22/2019 [facility] Problem Active 2019-04-22 01:06:38 Dieudonne Gordon Hypertensi ve disorder, systemic arterial (disorder) Hypertensi ve disorder, systemic arterial (disorder) Active Problem 04/22/2019 [facility] Problem Active 2019-04-22 01:06:38 Dieudonne Gordon Total retinal detachment Total retinal detachment , right eye Problem [facility] [id number] Acute upper respirator y infection Problem [facility] [id number] Abnormal blood sugar Problem [facility] [id number] Hyperglyce alex Problem [facility] [id number] Generalize d anxiety disorder Problem [facility] [id number] Diverticul osis Problem [facility] [id number] BPH loc w/o ur obs/LUTS Problem [facility] [id number] Arthropath ic psoriasis Problem [facility] [id number] Crohn''s disease without complicati on, unspecifie d gastrointe stinal tract location Problem [facility] [id number] Chronic fatigue Problem [facility] [id number] Cervical spondylosi s without myelopathy Problem [facility] 45834352 BMI 29.0-29.9, adult Problem [facility] [id number] Nausea Problem [facility] [id number] Lumbar sprain, initial encounter Problem [facility] [id number] Wheezing Problem [facility] [id number] Hospital discharge follow-up Problem [facility] [id number] Acute tonsilliti s, unspecifie d etiology Problem [facility] [id number] Panic disorder with agoraphobi a Problem [facility] [id number] Asymptomat ic microscopi c hematuria Problem [facility] [id number] Constipati on, unspecifie d constipati on type Problem [facility] [id number] Carotid artery disease, unspecifie d laterality , unspecifie d type Problem [facility] 16690747 Right epididymit is Problem [facility] [id number] Prostate nodule Problem [facility] [id number] 9126 Narcolepsy without cataplexy Problem [facility] 02218586 Pelvic pain Problem [facility] 52347604 Disc disorder Problem [facility] [id number] Perineal pain Problem [facility] 09733125 Scrotum pain Problem [facility] [id number] BPH loc w urin obs/LUTS Problem [facility] 21848107 Chronic prostatiti s Problem [facility] Allergies, Adverse Reactions, Alerts Allergy Name Allergy Type Status Severity Reaction(s) Onset Date Inactive Date Treating Clinician Comments Source Trimetho prim Drug Allergy Active Other - See comments 07-18 00:00: 00 Other reaction( s): [facility] Vancomyc in Drug Allergy Active Other - See comments 07-18 00:00: 00 Other reaction( s): Unknown [facility] TRIMETHO PRIM DRUG INGREDI Active Other-Cmnt 07-18 00:00: 00 [facility] VANCOMYC IN DRUG INGREDI Active Other-Cmnt 07-18 00:00: 00 [facility] Sulfamet hoxazole Allergy to substanc e Active 07-18 00:00: 00 Other reaction( s): [facility] Trimetho prim Allergy to substanc e Active 07-18 00:00: 00 Other reaction( s): [facility] Vancomyc in Allergy to substanc e Active 07-18 00:00: 00 Other reaction( s): Unknown [facility] Ketorola c Allergy to substanc e Active 07-18 00:00: 00 Other reaction( s): Unknown [facility] Sulfamet hoxazole -Trimeth oprim Drug Allergy Active Rash 2019-0 - 00:00: 00 Other reaction( s): rash [facility] PROMETHA ZINE DRUG INGREDI Active Other-Cmnt - 00:00: 00 [facility] CEPHALEX IN DRUG INGREDI Active Low Rash 2020-0 06-27 00:00: 00 [facility] SULFAMET HOXAZOLE -TRIMETH OPRIM DRUG Active Low Rash 2019-0 06-27 00:00: 00 [facility] Cephalex in Drug Allergy Active Rash 06-27 00:00: 00 Other reaction( s): rash, SWELLING [facility] Prometha zine Drug Allergy Active Other - See comments 06-27 00:00: 00 Other reaction( s): hives, hives, SWELLING [facility] Prometha zine Allergy to substanc e Active 06-27 00:00: 00 Other reaction( s): hives, hives, SWELLING [facility] Sulfamet hoxazole -Trimeth oprim Allergy to substanc e Active Rash 06-27 00:00: 00 Other reaction( s): rash [facility] Cephalex in Allergy to substanc e Active Rash 06-27 00:00: 00 Other reaction( s): rash, SWELLING [facility] Iodides Propensi ty to adverse reaction s Active Hives 12-06 00:00: 00 [facility] Latex Propensi ty to adverse reaction s Active Rash 12-06 00:00: 00 [facility] Levoflox acin Propensi ty to adverse reaction s Active Anaphylaxis 12-06 00:00: 00 [facility] Ketorola c Trometha mine Propensi ty to adverse reaction s Active Other - See comments 12-06 00:00: 00 Pin needle pains to stomach [facility] IODIDES DRUG Active Hives 12-06 00:00: 00 [facility] LATEX DRUG INGREDI Active Rash 12-06 00:00: 00 [facility] LEVOFLOX ACIN DRUG INGREDI Active Anaphylaxis 12-06 00:00: 00 [facility] KETOROLA C TROMETHA MINE DRUG INGREDI Active Other-Cmnt 12-06 00:00: 00 [facility] Ketorola c Trometha mine Allergy to substanc e Active 12-06 00:00: 00 Other reaction( s): Other - See comments, SWELLINGP in needle pains to stomach [facility] Latex Allergy to substanc e Active Rash 12-06 00:00: 00 [facility] Iodides Allergy to substanc e Active Hives 12-06 00:00: 00 Other reaction( s): Unknown [facility] Iodides Allergy to substanc e Active Hives 12-06 00:00: 00 Other reaction( s): Unknown [facility] Levoflox acin Allergy to substanc e Active Anaphylaxis 2013-06 00:00: 00 Other reaction( s): stops breathing , SWELLING, Unknown [facility] 8091 Drug allergy Active rash [facility] 13822 Drug allergy Active stops breathing [facility] Social History Social Habit Start Date Stop Date Quantity Comments Source [facility] Alcohol intake 2023-10-03 00:00:00 2023-10-03 00:00:00 Ex-drinker (finding) [facility] History of Social function 2023-10-03 00:00:00 2023-10-03 00:00:00 [facility] Alcoholic beverage intake 2023-10-03 00:00:00 2023-10-03 00:00:00 Ex-drinker (finding) [facility] Tobacco use and exposure 2023-04-12 00:00:00 2023-04-12 00:00:00 Smokeless tobacco non-user [facility] Exposure to SARS-CoV-2 (event) 2022-05-02 00:00:00 2022-05-12 11:32:00 Not sure [facility] Sex Assigned At 1960 00:00:00 1960 00:00:00 [facility] Smoking Status Start Date Stop Date Source Tobacco smoking consumption unknown [facility] Never smoked tobacco [facility] Social History 2019-03-28 18:18:16 2019-03-28 18:18:16 [facility] Medications Ordered Medication Name Filled Medication Name Start Date Stop Date Current Medication? Ordering Clinician Indication Dosage Frequency Signature (SIG) Comments Components Source DULoxetine 30 mg capsule 10-02 00:00: 00 Yes [id number] 30mg Take 1 capsule by mouth in the morning. [facility] carvediloL 25 mg tablet 10-02 00:00: 00 Yes [id number] 25mg Take 1 tablet by mouth in the morning and 1 tablet in the evening. Take with meals. [facility] Amylase-Lip ase-Proteas e (CREON) 24,000-76,0 00 -120,000 unit capsule 10-02 00:00: 00 Yes [id number] 69593C Take 1 capsule by mouth in the morning and 1 capsule at noon and 1 capsule in the evening. Take with meals. [facility] pantoprazol e 40 mg EC tablet 10-02 00:00: 00 Yes [id number] 40mg Take 1 tablet by mouth in the morning. [facility] ondansetron 4 mg tablet 10-02 00:00: 00 Yes [id number] 4mg Take 1 tablet by mouth every 6 (six) hours as needed for Nausea and Vomiting (N/V). [facility] albuterol (VENTOLIN HFA) 90 mcg/actuati on inhaler 07-04 14:23: 05 07-04 00:00 :00 No 2{puff} Inhale 2 Puffs every 6 (six) hours as needed for Wheezing or Shortness of Breath. [facility] albuterol 90 mcg/actuati on inhaler 07-04 14:22: 58 07-04 00:00 :00 No 2{puff} Inhale 2 Puffs every 6 (six) hours as needed for Wheezing or Shortness of Breath. [facility] Amylase-Lip ase-Proteas e (CREON) 24,000-76,0 00 -120,000 unit capsule 07-04 14:22: 27 07-04 00:00 :00 No [id number] Take 1 capsule by mouth in the morning and 1 capsule at noon and 1 capsule in the evening. Take with meals. [facility] carvediloL 25 mg tablet 07-04 00:00: 00 10-02 00:00 :00 No [id number] 25mg Take 1 tablet by mouth in the morning and 1 tablet in the evening. Take with meals. [facility] DULoxetine 30 mg capsule 07-04 00:00: 00 10-02 00:00 :00 No [id number] 30mg Take 1 capsule by mouth in the morning. [facility] pantoprazol e 40 mg EC tablet 07-04 00:00: 00 10-02 00:00 :00 No [id number] 40mg Take 1 tablet by mouth in the morning. [facility] ondansetron 4 mg tablet 07-04 00:00: 00 10-02 00:00 :00 No [id number] 4mg Take 1 tablet by mouth every 6 (six) hours as needed for Nausea and Vomiting (N/V). [facility] Amylase-Lip ase-Proteas e (CREON) 24,000-76,0 00 -120,000 unit capsule 07-04 00:00: 00 10-02 00:00 :00 No [id number] Take 1 capsule by mouth in the morning and 1 capsule at noon and 1 capsule in the evening. Take with meals. [facility] carvedilol (COREG) 25 mg tablet 2022-06 15:04: 39 04-12 00:00 :00 No 25mg Take 1 tablet by mouth in the morning and 1 tablet in the evening. Take with meals. [facility] predniSONE 20 mg tablet 2022-06 14:43: 26 04-12 00:00 :00 No 20mg Take 1 tablet by mouth in the morning. [facility] Amylase-Lip ase-Proteas e (CREON) 24,000-76,0 00 -120,000 unit capsule 2022-06 14:26: 48 Yes [id number] Take 1 capsule by mouth in the morning and 1 capsule at noon and 1 capsule in the evening. Take with meals. [facility] albuterol 90 mcg/actuati on inhaler 2022-06 14:26: 48 Yes 2{puff} Inhale 2 Puffs every 6 (six) hours as needed for Wheezing or Shortness of Breath. [facility] blood sugar diagnostic (ONE TOUCH TEST MISC) 2022-06 14:26: 48 Yes One touch ultra blue test strip [facility] HYDROcodone -acetaminop hen (NORCO) 7.5-325 mg per tablet 2022-06 14:22: 42 04-12 00:00 :00 No 1{tbl} Take 1 Tab by mouth every 6 (six) hours as needed for Pain. [facility] LIPASE/PROT EASE/AMYLAS E (CREON 10 ORAL) 2022-06 14:22: 42 04-12 00:00 :00 No Take by mouth. [facility] DULoxetine 30 mg capsule 2022-06 00:00: 00 07-04 00:00 :00 No [id number] 30mg Take 1 capsule by mouth in the morning. [facility] carvediloL 25 mg tablet 2022-06 00:00: 00 07-04 00:00 :00 No [id number] 25mg Take 1 tablet by mouth in the morning and 1 tablet in the evening. Take with meals. [facility] ondansetron 4 mg tablet 02-14 00:00: 00 07-04 00:00 :00 No 4mg Take 1 tablet by mouth every 6 (six) hours as needed for Nausea and Vomiting (N/V). [facility] clonazePAM 1 mg tablet 02-14 00:00: 00 04-12 00:00 :00 No 1mg Take 1 tablet by mouth 2 (two) times daily as needed. [facility] gabapentin 300 mg capsule 02-07 00:00: 00 Yes TAKE 1 CAPSULE TWICE A DAY FOR 28 DAY(S) [facility] pantoprazol e 40 mg EC tablet 12-10 00:00: 00 07-04 00:00 :00 No 40mg Take 1 tablet by mouth in the morning. [facility] clonazePAM 0.5 MG clonazePAM 0.5 MG [...] 07-21 00:00: 00 04-12 00:00 :00 No [id number] Apply to area(s) 5 (five) times daily. [facility] valsartan 40 mg oral tablet 2018-06 19:12: 00 Yes 0 Refill(s) Memoria roberto Gordon pantoprazol e 40 mg oral enteric coated tablet 09-26 19:00: 00 Yes 40 mg = 1 tab, PO, Daily, # 30 tab, 0 Refill(s) [facility] roberto Gordon Acetaminoph en 325 MG / Hydrocodone Bitartrate 10 MG Oral Tablet [[place] 10/325] 09-26 19:00: 00 Yes 1 tab, PO, QID, 0 Refill(s) [facility]oria roberto Gordon Clonazepam 2 MG Oral Tablet [Klonopin] 09-26 19:00: 00 Yes 2 mg = 1 tab, PO, BID, # 60 tab, 0 Refill(s) Memoria l Evan Aspirin 81 Aspirin 81 09-14 00:00: 00 Yes Esthela Dunham 1 tablet [facility] Aspirin 81 81 MG Aspirin 81 81 [...] 00:00: 00 Yes Esthela Dunham 1 puff [facility] Albuterol Sulfate HFA 108 (90 Base) MCG/ACT [...] 6 (six) hours as needed for Pain. [facility] LIPASE/PROT EASE/AMYLAS E (CREON 10 ORAL) 12-06 06:42: 52 Yes Take by mouth. [facility] carvedilol (COREG) 25 mg tablet 12-06 06:42: 52 Yes 25mg Take 25 mg by mouth 2 (two) times daily with meals. [facility] metroNIDAZO LE (FLAGYL) 500 mg tablet 12-06 00:00: 00 04-12 00:00 :00 No 500mg Take 1 Tab by mouth 2 (two) times daily. [facility] proMETHazin e (PHENERGAN) 25 mg tablet 12-06 00:00: 00 04-12 00:00 :00 No 25mg Take 1 Tab by mouth every 6 (six) hours as needed for Nausea and Vomiting (N/V). [facility] Clonazepam Clonazepam Yes Esthela Dunham TAKE 1 TABLET BY MOUTH TWICE A DAY [facility] Carvedilol Carvedilol Yes Esthela Dunham take 1 tablet by mouth twice a day [facility] Famotidine Famotidine Yes Esthela Nelson 1 tablet at bedtime [facility] Protonix Protonix Yes Esthela Nelson 1 tablet [facility] Dicyclomine HCl Dicyclomine HCl Yes Esthela Nelson 1 tablet [facility] Ventolin HFA Ventolin HFA Yes Esthela Nelson 2 puffs [facility] Valsartan Valsartan Yes Esthela Nelson 1 tablet [facility] Hydrocodone -Acetaminop hen Hydrocodone -Acetaminop hen Yes Esthela Nelson (Schedule II Drug) TK 1 T PO TID [facility] Dicyclomine HCl 20 MG Dicyclomine HCl 20 MG No 1{table t} QID Dicyclomin e HCl 20 MG OneTouch Ultra - OneTouch Ultra - No OneTouch Ultra - Lactulose 10 GM/15ML Lactulose 10 GM/15ML No 15{ml} Lactulose 10 GM/15ML OneTouch Delica Plus Wtfuam65S - OneTouch Delica Plus Kvsyjr79E - No OneTouch Delica Plus Syjzwz79B - Famotidine 20 MG Famotidine 20 MG [...] 15{ml} Lactulose 10 GM/15ML OneTouch Delica Plus Apwicx90N - OneTouch Delica Plus Lwpioo41R - No OneTouch Delica Plus Oyanqz02J - Protonix 40 MG Protonix 40 MG No 1{table t} QD Protonix 40 MG OneTouch Ultra - OneTouch Ultra - No OneTouch Ultra - Ventolin HFA 108 (90 Base) MCG/ACT Ventolin HFA 108 (90 Base) MCG/ACT No 2{puffs } Ventolin HFA 108 (90 Base) MCG/ACT Protonix 40 MG Protonix 40 MG No 1{table t} QD Protonix 40 MG OneTouch Delica Plus Bhjdsd33I - OneTouch Delica Plus Xhjbsp88R - No OneTouch Delica Plus Kaqyge48E - Albuterol Sulfate HFA 108 (90 Base) [...] QD Protonix 40 MG OneTouch Delica Plus Lhrlra54D - OneTouch Delica Plus Jjlean17X - No OneTouch Delica Plus Mlrsyu28F - Albuterol Sulfate HFA 108 (90 Base) [...] QD Protonix 40 MG OneTouch Delica Plus Ddihsl30C - OneTouch Delica Plus Hchrtt77A - No OneTouch Delica Plus Shvkbn77L - Famotidine 20 MG Famotidine 20 MG [...] QD Protonix 40 MG OneTouch Delica Plus Zvssvw24T - OneTouch Delica Plus Lyiiqt56G - No OneTouch Delica Plus Xfkbnc81G - Famotidine 20 MG Famotidine 20 MG [...] QD Protonix 40 MG OneTouch Delica Plus Sfiben91W - OneTouch Delica Plus Ygsnoz56C - No OneTouch Delica Plus Vgnyji69F - Famotidine 20 MG Famotidine 20 MG [...] QD Protonix 40 MG OneTouch Delica Plus Qawcup70G - OneTouch Delica Plus Rvyihg34E - No OneTouch Delica Plus Evrvrj89U - Ventolin HFA 108 (90 Base) MCG/ACT Ventolin HFA 108 (90 Base) MCG/ACT No 2{puffs } Ventolin HFA 108 (90 Base) MCG/ACT Carvedilol 25 MG Carvedilol 25 MG No 1{table t_with_ food} BID Carvedilol 25 MG OneTouch Ultra - OneTouch Ultra - No OneTouch Ultra - OneTouch Delica Plus Srjmyr78A - OneTouch Delica Plus Ekfgla92R - No OneTouch Delica Plus Mvlopv82N - Protonix 40 MG Protonix 40 MG No 1{table t} QD Protonix 40 MG Ventolin HFA 108 (90 Base) MCG/ACT Ventolin HFA 108 (90 Base) MCG/ACT No 2{puffs } Ventolin HFA 108 (90 Base) MCG/ACT Carvedilol 25 MG Carvedilol 25 MG No 1{table t_with_ food} BID Carvedilol 25 MG OneTouch Ultra - OneTouch Ultra - No OneTouch Ultra - OneTouch Delica Plus Siwuoi00I - OneTouch Delica Plus Hawndk23J - No OneTouch Delica Plus Uxiepv90X - Protonix 40 MG Protonix 40 MG No 1{table t} QD Protonix 40 MG Ventolin HFA 108 (90 Base) MCG/ACT Ventolin HFA 108 (90 Base) MCG/ACT No 2{puffs } Ventolin HFA 108 (90 Base) MCG/ACT Carvedilol 25 MG Carvedilol 25 MG No 1{table t_with_ food} BID Carvedilol 25 MG OneTouch Ultra - OneTouch Ultra - No OneTouch Ultra - OneTouch Delica Plus Tkxrxl41B - OneTouch Delica Plus Ehypwa86Z - No OneTouch Delica Plus Qpatea74J - Protonix 40 MG Protonix 40 MG [...] No OneTouch Ultra - OneTouch Delica Plus Etfdlv49Q - OneTouch Delica Plus Cudtvx09Y - No OneTouch Delica Plus Xlyuor82P - HYDROcodone -Acetaminop hen 10-325 MG HYDROcodone [...] No OneTouch Ultra - OneTouch Delica Plus Sqvegv52I - OneTouch Delica Plus Qknkzj22D - No OneTouch Delica Plus Qxeqqh18M - Albuterol Sulfate HFA 108 (90 Base) [...] No OneTouch Ultra - OneTouch Delica Plus Yyhznc77N - OneTouch Delica Plus Yomsnz91H - No OneTouch Delica Plus Nhrolc97E - Albuterol Sulfate HFA 108 (90 Base) MCG/ACT Albuterol Sulfate HFA 108 (90 Base) MCG/ACT No Albuterol Sulfate HFA 108 (90 Base) MCG/ACT HYDROcodone -Acetaminop hen 10-325 MG HYDROcodone -Acetaminop hen 10-325 MG No HYDROcodon e-Acetamin ophen 10-325 MG Protonix 40 MG Protonix 40 MG No 1{table t} QD Protonix 40 MG Creon Creon 12-23 00:00 :00 No Esthela Nelson take by mouth 1 capsule 3 times a day as directed [facility] Vital Signs Vital Name Observation Time Observation Value Comments S ourfred Systolic blood pressure 2023-10-03 21:46:00 142 mm[Hg] [facility] Diastolic blood pressure 2023-10-03 21:46:00 92 mm[Hg] [facility] Heart rate 2023-10-03 21:46:00 86 /min [facility] Oxygen saturation in Arterial blood by Pulse oximetry 2023-10-03 21:46:00 96 /min [facility] Systolic blood pressure 2023-10-03 21:03:00 142 mm[Hg] [facility] Diastolic blood pressure 2023-10-03 21:03:00 92 mm[Hg] [facility] Heart rate 2023-10-03 21:03:00 86 /min [facility] Body height 2023-10-03 21:03:00 177.8 cm [facility] Body weight 2023-10-03 21:03:00 99.202 kg [facility] BMI 2023-10-03 21:03:00 31.38 kg/m2 [facility] Systolic blood pressure 2023-07-04 20:00:00 142 mm[Hg] [facility] Diastolic blood pressure 2023-07-04 20:00:00 84 mm[Hg] [facility] Heart rate 2023-07-04 19:59:00 58 /min [facility] Body temperature 2023-07-04 19:59:00 36.11 Jing [facility] Respiratory rate 2023-07-04 19:59:00 17 /min [facility] Body height 2023-07-04 19:59:00 175.3 cm [facility] Body weight 2023-07-04 19:59:00 99.973 kg [facility] BMI 2023-07-04 19:59:00 32.55 kg/m2 [facility] Oxygen saturation in Arterial blood by Pulse oximetry 2023-07-04 19:59:00 97 /min [facility] Systolic blood pressure 2023-04-12 20:19:00 149 mm[Hg] [facility] Diastolic blood pressure 2023-04-12 20:19:00 90 mm[Hg] [facility] Heart rate 2023-04-12 18:55:00 55 /min [facility] Respiratory rate 2023-04-12 18:55:00 18 /min [facility] Body height 2023-04-12 18:55:00 177.8 [facility] 2023-04-12 18:55:00 99.202 kg [facility] BMI 2023-04-12 18:55:00 31.38 kg/m2 [facility] Oxygen saturation in Arterial blood by Pulse oximetry 2023-04-12 18:55:00 98 /min [facility] height 2022-08-30 15:20:00 70 [in_i] Commo n [facility] weight 2022-08-30 15:20:00 216.2 [lb_av] Co mmon [facility] temperature 2022-08-30 15:20:00 97.2 [degF] Com [facility] bmi 2022-08-30 15:20:00 31.02 kg/m2 Comm on [facility] oximetry 2022-08-30 15:20:00 96 % Commo n [facility] respiratory rate 2022-08-30 15:20:00 17 /min [facility] blood pressure systolic 2022-08-30 15:20:00 134 mm[Hg[facility] pressure diastolic 2022-08-30 15:20:00 80 mm[Hg] Common [facility] height 2022-04-11 15:40:00 70 [in_i] Commo n [facility] weight 2022-04-11 15:40:00 206.9 [lb_av] Co mmon [facility] temperature 2022-04-11 15:40:00 97.6 [degF] Com [facility] bmi 2022-04-11 15:40:00 29.68 kg/m2 Comm on [facility] oximetry 2022-04-11 15:40:00 98 % Commo n [facility] respiratory rate 2022-04-11 15:40:00 18 /min Common [facility] blood pressure systolic 2022-04-11 15:40:00 138 mm[Hg] Common Spiri t [facility] blood pressure diastolic 2022-04-11 15:40:00 72 mm[Hg] Common Spiri t [facility] height 2022-02-09 13:50:00 70 [in_i] Commo n [facility] weight 2022-02-09 13:50:00 207 [lb_av] Comm on [facility] temperature 2022-02-09 13:50:00 97.9 [degF] Com mon [facility] bmi 2022-02-09 13:50:00 29.7 kg/m2 Commo n [facility] oximetry 2022-02-09 13:50:00 96 % Commo n [facility] respiratory rate 2022-02-09 13:50:00 18 /min Common [facility] blood pressure systolic 2022-02-09 13:50:00 132 mm[Hg] [facility] blood pressure diastolic 2022-02-09 13:50:00 70 mm[Hg] [facility] height 2021-12-07 09:20:00 70 [in_i] Commo n [facility] weight 2021-12-07 09:20:00 206.0 [lb_av] Co mmon [facility] temperature 2021-12-07 09:20:00 98.2 [degF] Com mon [facility] bmi 2021-12-07 09:20:00 29.55 kg/m2 Comm on [facility] oximetry 2021-12-07 09:20:00 99 % Commo n [facility] respiratory rate 2021-12-07 09:20:00 18 /min Common [facility] blood pressure systolic 2021-12-07 09:20:00 137 mm[Hg] Common Spiri t [facility] blood pressure diastolic 2021-12-07 09:20:00 70 mm[Hg] [facility] height 2021-02-23 14:30:00 70 [in_i] Commo n [facility] weight 2021-02-23 14:30:00 190.0 [lb_av] Co mmon [facility] temperature 2021-02-23 14:30:00 98.3 [degF] Com mon [facility] bmi 2021-02-23 14:30:00 27.26 kg/m2 Comm on [facility] blood pressure systolic 2021-02-23 14:30:00 138 mm[Hg] Common Spiri [facility] blood pressure diastolic 2021-02-23 14:30:00 74 mm[Hg] Common [facility] Systolic blood pressure 2020-12-28 20:04:00 155 mm[Hg] [facility] Diastolic blood pressure 2020-12-28 20:04:00 82 mm[Hg] [facility] Heart rate 2020-12-28 20:04:00 61 /min [facility] Body temperature 2020-12-28 20:04:00 36.67 Jing [facility] Respiratory rate 2020-12-28 20:04:00 16 /min [facility] Body height 2020-12-28 20:04:00 177.8 cm [facility] Body weight 2020-12-28 20:04:00 86.183 kg [facility] BMI 2020-12-28 20:04:00 27.26 kg/m2 [facility] Oxygen saturation in Arterial blood by Pulse oximetry 2020-12-28 20:04:00 97 /min [facility] Systolic blood pressure 2019-07-22 04:00:00 147 mm[Hg] [facility] Diastolic blood pressure 2019-07-22 04:00:00 87 mm[Hg] [facility] Heart rate 2019-07-22 04:00:00 54 /min [facility] Respiratory rate 2019-07-22 04:00:00 20 /min [facility] Oxygen saturation in Arterial blood by Pulse oximetry 2019-07-22 04:00:00 99 /min [facility] Body temperature 2019-07-21 23:21:00 37 Jing [facility] Body weight 2019-07-21 23:21:00 86.183 kg [facility] BMI 2019-07-21 23:21:00 27.26 kg/m2 [facility] Systolic blood pressure 2019-07-22 04:00:00 147 mm[Hg] [facility] Diastolic blood pressure 2019-07-22 04:00:00 87 mm[Hg] [facility] Heart rate 2019-07-22 04:00:00 54 /min [facility] Respiratory rate 2019-07-22 04:00:00 20 /min [facility] Oxygen saturation in Arterial blood by Pulse oximetry 2019-07-22 04:00:00 99 /min [facility] Body temperature 2019-07-21 23:21:00 37 Jing [facility] Body weight 2019-07-21 23:21:00 86.183 kg [facility] BMI 2019-07-21 23:21:00 27.26 kg/m2 [facility] Systolic (mm Hg) 2019-03-28 18:17:00 [facility] Diastolic (mm Hg) 2019-03-28 18:17:00 [facility] Heart Rate 2019-03-28 18:17:00 [facility] Respitory Rate 2019-03-28 18:17:00 [facility] Height 2019-03-28 18:17:00 172.72 cm [facility] Weight 2019-03-28 18:17:00 [facility] BMI Calculated 2019-03-28 18:17:00 [facility] BMI Calculated 2018-09-26 18:51:00 [facility] Weight 2018-09-26 18:51:00 [facility] Height 2018-09-26 18:51:00 172.72 cm [facility] Heart Rate 2018-09-26 18:51:00 [facility] Respitory Rate 2018-09-26 18:51:00 [facility] Systolic (mm Hg) 2018-09-26 18:51:00 [facility] Diastolic (mm Hg) 2018-09-26 18:51:00 [facility] Procedures Procedure Date / Time Performed Performing Clinicia n Source NOTICE OF PRIVACY PRACTICES 2020-12-28 19:58:01 Doctor Unassigned, [facility] CONSENT/REFUSAL FOR DIAGNOSIS AND TREATMENT 2020-12-28 19:57:10 Doctor Unassigned, [facility] US SCROTUM AND CONTENTS 2019-07-22 03:08:48 Lucho Alfaro [facility] NOTICE OF PRIVACY PRACTICES 2019-07-21 23:12:14 Doctor Unassigned, [facility] CONSENT/REFUSAL FOR DIAGNOSIS AND TREATMENT 2019-07-21 23:07:41 Doctor Unassigned, [facility] Encounters Start Date/Time End Date/Time Encounter Type Admission Type Attending [facility] Care Facility Care Department Encounter ID Source 2023-01-11 16:27:00 [facility] [id number] [facility] 2022-09-12 13:14:00 [facility] [id number] [facility] 2022-08-26 08:40:00 [facility] [id number] [facility] 2022-08-17 14:47:00 [facility] [id number] [facility] 2022-06-02 08:30:58 Outpatient [facility] [id number] [facility] 2022-05-24 13:55:01 [facility] [id number] [facility] 2022-05-23 10:20:01 [facility] [id number] [facility] 2022-05-04 14:32:40 Outpatient [facility] [id number] [facility] 2022-04-07 13:30:01 [facility] [id number] [facility] 2022-04-04 10:22:48 Outpatient [facility] [id number] [facility] 2022-03-31 12:03:45 Outpatient [facility] [id number] [facility] 2022-03-30 15:15:47 Outpatient [facility] [id number] [facility] 2022-02-09 13:48:01 Outpatient Jenkins, [facility] [id number] [facility] 2021-12-08 11:45:00 Outpatient Jenkins, [facility] [id number] [facility] 2021-12-07 09:25:00 Outpatient Jenkins, [facility] [id number] [facility] 2021-12-03 09:35:01 Outpatient Jenkins, [facility] [id number] [facility] 2021-06-30 13:05:56 Outpatient Jenkins, [facility] [id number] [facility] 2021-06-30 12:47:29 Outpatient Jenkins, [facility] [id number] [facility] 2021-06-30 12:36:27 Outpatient Jenkins, [facility] [id number] [facility] 2021-06-30 12:35:26 Outpatient Jenkins, [facility] [id number] [facility] 2021-06-30 12:28:53 Outpatient Jenkins, [facility] [id number] [facility] 2021-06-30 12:26:11 Outpatient Jenkins, [facility] ST[facility] [id number] [facility] 2021-06-30 12:12:23 Outpatient Jenkins, [facility] [id number] [facility] 2021-06-30 12:04:45 [facility] [id number] [facility] 2021-06-30 11:55:15 [facility] [id number] [facility] 2021-06-30 11:52:56 [facility] [id number] [facility] 2021-06-30 11:52:32 [facility] [id number] [facility] 2021-06-30 11:02:50 Outpatient Fernanda Lockwood [facility] [id number] [facility] 2021-06-30 11:02:33 Outpatient Fernanda Lockwood [facility] [id number] [facility] 2023-12-18 00:00:00 2023-12-18 16:23:17 Telephone Team, [facility] 1..840.114 350.1.13.10 4.2.7.2.686 [id number] [facility] 2023-10-03 14:00:00 2023-10-03 16:58:23 Office Visit Robbin Carroll [facility] 1.2.840.114 350.1.13.10 4.2.7.2.686 [id number] [facility] 2023-10-03 16:00:00 2023-10-03 16:38:39 Outpatient R ROBBIN CARROLL [facility] [id number] [facility] 2023-10-03 16:00:00 2023-10-03 16:38:39 Office Visit Robbin Carroll [facility] 1.2.840.114 350.1.13.10 4.2.7.2.686 [id number] [facility] 2023-07-04 14:00:00 2023-07-04 14:41:34 Outpatient R ROBBIN CARROLL [facility] [id number] [facility] 2023-07-04 14:00:00 2023-07-04 14:41:34 Office Visit DruhelderRobbin [facility] 1..840.114 350.1.13.10 4.2.7.2.686 [id number] [facility] 2023-05-26 14:20:00 2023-05-26 14:20:00 Outpatient R INA MIKE [facility] [id number] [facility] 2023-04-26 00:00:00 2023-04-26 00:00:00 Refill Ina Mike [facility] 1.840.114 350.1.13.10 4.2.7.2.686 [id number] [facility] 2023-04-12 15:15:00 2023-04-12 15:42:32 Aquaculture Program Director Visit Lab, Ina Charles [facility] 1..840.114 350.1.13.10 4.2.7.2.686 [id number] [facility] 2023-04-12 15:15:00 2023-04-12 15:15:00 Outpatient R INA MIKE [facility] [id number] [facility] 2023-04-12 14:00:00 2023-04-12 15:06:59 Office Visit Ina Mike [facility] 1..840.114 350.1.13.10 4.2.7.2.686 [id number] [facility] 2022-12-20 00:00:00 2022-12-20 00:00:00 (TEL) STLMLC STLMLC [id number] [facility] 2022-11-03 00:00:00 2022-11-03 00:00:00 (TEL) STLMLC STLMLC [id number] [facility] 2022-09-02 00:00:00 2022-09-02 00:00:00 (TEL) STLMLC STLMLC [id number] [facility] 2022-09-02 00:00:00 2022-09-02 00:00:00 (TEL) STLMLC STLMLC [id number] [facility] 2022-08-30 00:00:00 2022-08-30 00:00:00 OFFICE VISIT ESTAB PT LEVEL 4 STLMLC STLMLC [id number] [facility] 2022-08-17 00:00:00 2022-08-17 00:00:00 (TEL) STLMLC STLMLC [id number] [facility] 2022-06-16 13:00:00 2022-06-16 13:00:00 Outpatient WARD SANTOS [facility] [id number] [facility] 2022-05-12 11:30:00 2022-05-12 13:38:22 Office Visit Ward Santos [facility] [address] [facility] 1.2.840.114 350.1.13.58 9.2.7.2.686 [id number] [facility] 2022-04-19 00:00:00 2022-04-19 00:00:00 (TEL) STLMLC STLMLC [id number] [facility] 2022-04-14 10:30:00 2022-04-14 12:17:23 Outpatient RAVI SANTOSIDEsteban [facility] [id number] [facility] 2022-04-11 00:00:00 2022-04-11 00:00:00 OFFICE VISIT ESTAB PT LEVEL 4 STLMLC STLMLC [id number] [facility] 2022-04-04 10:30:00 2022-04-04 16:18:07 Office Visit Ward Santos [facility] [address] 1.2.840.114 350.1.13.58 9.2.7.2.686 [id number] [facility] 2022-03-25 11:00:00 2022-03-25 11:00:00 Outpatient WARD SANTOS [facility] [id number] [facility] 2022-03-24 00:00:00 2022-03-24 00:00:00 (TEL) STLMLC STLMLC [id number] [facility] 2022-03-23 00:00:00 2022-03-23 00:00:00 (TEL) STLMLC STLMLC [id number] [facility] 2022-03-23 00:00:00 2022-03-23 00:00:00 (TEL) STLMLC STLMLC [id number] [facility] 2022-03-23 00:00:00 2022-03-23 00:00:00 (TEL) STLMLC STLMLC [id number] [facility] 2022-02-09 00:00:00 2022-02-09 00:00:00 OFFICE VISIT ESTAB PT LEVEL 4 STLMLC STLMLC [id number] [facility] 2021-12-07 00:00:00 2021-12-07 00:00:00 OFFICE VISIT ESTAB PT LEVEL 4 STLMLC STLMLC [id number] [facility] 2021-03-24 00:00:00 2021-03-24 00:00:00 (TEL) STLMLC STLMLC [id number] [facility] 2021-02-23 00:00:00 2021-02-23 00:00:00 (TELEAUD) AUDIO TELEMEDICI NE STLMLC STLMLC [id number] [facility] 2021-02-22 00:00:00 2021-02-22 00:00:00 (TEL) STLMLC STLMLC [id number] [facility] 2020-12-28 15:10:00 2020-12-28 16:55:00 Emergency Shania Waters S [facility] 1.2.840.114 350.1.13.10 4.2.7.2.686 [id number] [facility] 2020-12-28 14:57:00 2020-12-28 14:57:00 Emergency X [facility] ERT [id number] [facility] 2020-12-28 00:00:00 2020-12-28 00:00:00 Orders Only Doctor Unassigned, Johnston [facility] 1.2.840.114 350.1.13.10 4.2.7.2.686 [id number] [facility] 2020-12-24 00:00:00 2020-12-24 00:00:00 Outpatient STLMLC STLMLC [id number] [facility] 2020-12-17 00:00:00 2020-12-17 00:00:00 Outpatient STLMLC STLMLC [id number] [facility] 2020-12-04 00:00:00 2020-12-04 00:00:00 Outpatient STLMLC STLMLC [id number] [facility] 2020-10-22 00:00:00 2020-10-22 00:00:00 Outpatient STLMLC STLMLC [id number] [facility] 2020-10-15 00:00:00 2020-10-15 00:00:00 Outpatient STLMLC STLMLC [id number] [facility] 2020-10-07 00:00:00 2020-10-07 00:00:00 Outpatient STLMLC STLMLC [id number] [facility] 2020-09-07 00:00:00 2020-09-07 00:00:00 Outpatient STLMLC STLMLC [id number] [facility] 2020-08-06 00:00:00 2020-08-06 00:00:00 Outpatient STLMLC STLMLC [id number] [facility] 2020-07-09 00:00:00 2020-07-09 00:00:00 Outpatient STLMLC STLMLC [id number] [facility] 2020-06-09 00:00:00 2020-06-09 00:00:00 Outpatient STLMLC STLMLC [id number] [facility] 2020-05-21 00:00:00 2020-05-21 00:00:00 Outpatient STLMLC STLMLC [id number] [facility] 2020-05-14 00:00:00 2020-05-14 00:00:00 Outpatient STLMLC STLMLC [id number] [facility] 2020-04-28 00:00:00 2020-04-28 00:00:00 Outpatient STLMLC STLMLC [id number] [facility] 2020-04-16 00:00:00 2020-04-16 00:00:00 Outpatient STLMLC STLMLC [id number] [facility] 2020-03-18 00:00:00 2020-03-18 00:00:00 Outpatient STLMLC STLMLC [id number] [facility] 2020-03-18 00:00:00 2020-03-18 00:00:00 Outpatient STLMLC STLMLC [id number] [facility] 2020-03-10 00:00:00 2020-03-10 00:00:00 Outpatient STLMLC STLMLC [id number] [facility] 2020-01-30 04:28:00 2020-01-30 04:28:00 Outpatient Ajibade_O_A H VFP VFP [id number] [facility] 2020-01-30 04:28:00 2020-01-30 04:28:00 Outpatient Ajibade_O_A H VFP VFP [id number] [facility] 2020-01-30 04:28:00 2020-01-30 04:28:00 Outpatient Ajibade_O_A H VFP VFP [id number] [facility] 2020-01-30 04:28:00 2020-01-30 04:28:00 Outpatient Ajibade_O_A H VFP VFP [id number] [facility] 2019-07-24 07:17:00 2019-07-24 07:17:00 Outpatient Ige-Odunuga _J_AH VFP VFP [id number] [facility] 2019-07-24 07:17:00 2019-07-24 07:17:00 Outpatient Ige-Odunuga _J_AH VFP VFP [id number] [facility] 2019-07-21 18:06:23 2019-07-21 22:09:00 Emergency X LUCHO ALFARO [facility] ERT [id number] [facility] 2019-07-21 18:06:23 2019-07-21 22:09:00 Emergency [facility] 1.2.840.114 350.1.13.10 4.2.7.2.686 [id number] [facility] 2019-07-21 18:06:23 2019-07-21 22:09:00 [facility] 1.2.840.114 350.1.13.10 4.2.7.2.686 [id number] 2019-07-15 15:01:00 2019-07-15 15:01:00 [facility] [id number] [facility] 2019-07-09 16:46:00 2019-07-09 16:46:00 [facility] [id number] [facility] 2019-07-08 14:51:00 2019-07-08 14:51:00 [facility] [id number] [facility] 2019-07-08 08:00:00 2019-07-08 08:00:00 [facility] [id number] [facility] 2019-07-04 13:00:00 2019-07-04 13:00:00 [facility] [id number] [facility] 2019-07-02 14:32:00 2019-07-02 14:32:00 [facility] [id number] [facility] 2019-06-27 14:40:00 2019-06-27 14:40:00 [facility] [id number] [facility] 2019-06-03 11:17:00 2019-06-03 11:17:[address] [facility] [facility] [id number] [facility] 2019-04-18 18:37:59 2019-04-20 05:59:59 Outside Medical Records nullFlavo r [facility] [place] [id number] Dieudonne Gordon 2019-04-11 21:30:00 2019-04-11 21:30:00 Ambulatory Pre-Reg nullFlavo r [facility] [place] [id number] Dieudonne Gordon 2019-04-09 15:20:00 2019-04-09 15:20:[address] [facility] [id number] [facility] 2019-04-01 13:58:44 2019-04-03 04:59:59 Outside Medical Records nullFlavo r [facility] [id number] Dieudonne Gordon 2019-03-28 18:00:00 2019-03-29 04:59:59 Outpatient nullFlavo r [facility] [id number] Dieudonne Gordon 2019-02-19 14:40:00 2019-02-19 14:40:[address] [facility] [address] [facility] [id number] [facility] 2018-12-11 11:21:00 2018-12-11 11:21:[address] [facility] [address] [facility] [id number] [facility] 2018-11-19 14:40:00 2018-11-19 14:40:[address] [facility] [address] [facility] [id number] [facility] 2018-10-31 18:45:00 2018-10-31 18:45:00 Ambulatory Pre-Reg nullFlavo r [facility] [id number] Dieudonne Gordon 2018-09-26 18:30:00 2018-09-27 04:59:59 Outpatient nullFlavo r [facility] [id number] Dieudonne Gordon 2018-09-17 16:00:00 2018-09-17 16:00:[address] [facility] [facility] [address] [facility] [id number] [facility] 2018-08-02 16:07:00 2018-08-02 16:07:00 [facility] [id number] [facility] 2018-08-02 16:05:00 2018-08-02 16:05:00 [facility] [id number] [facility] 2018-06-18 16:00:00 2018-06-18 16:00:[address] [facility] [address] [facility] [id number] [facility] 2018-01-18 14:00:00 2018-01-18 14:00:[address] [facility] [address] [address] [facility] [id number] [facility] 2017-09-19 09:33:00 2017-09-19 09:33:[address] [facility] [facility] [address] [address] [facility] [id number] [facility] 2017-09-14 13:00:00 2017-09-14 13:00:00 [id number] [facility] 2017-09-12 11:05:00 2017-09-12 11:05:00 [facility] [id number] [facility] 2017-08-29 15:30:00 2017-08-29 15:30:00 [id number] [facility] Results Test Description Test Time Test Comments Results Resul t Comments Source US SCROTUM AND CONTENTS 2019-07-06 03:19:48 No evidence for testicular torsion. No definite evidence for epididymo-orchitis. RL: [id number] AFC: [id number] Ordering physician: LUCHO ALFARO INDICATION: Scrotal pain [...] torsion.No definite evidence for epididymo-orchitis. RL: [id number]: [id number] signed by Kristen Valdez MD, PhD at 07/21/2019 9:19 PM [facility] Notes Date/Time Note Provider Source 2023-12-18 16:19:38 Records Update Encounter Managed Care Team completed a Care Everywhere Search to update records. Patient was not contacted. Sarah Rosas [facility]
--- NOTE | 2024-01-25 04:53 | ER ---
Nurse's Notes [facility] Name: Alfredo Escobar Age: 63 yrs Sex: Male : 1960 Arrival Date: 01/25/2024 Time: 03:49 Bed 20 Private MD: Diagnosis: SARS-associated coronavirus as the cause of diseases classified elsewhere;Acute upper respiratory infection, unspecified;Cough Presentation: 01/24 04:32 Chief complaint: Patient states: Have covid and yesterday started coughing really bad vc1 and I feel like it is in my lungs. Just want to make sure I don't have covid. Coronavirus screen: Client denies travel out of the [place] in the last 14 days. Client presents with at least one sign or symptom that may indicate coronavirus-19. Client reports previous positive COVID test result. Ebola Screen: Patient negative for fever greater than or equal to 101.5 degrees Fahrenheit, and additional compatible Ebola Virus Disease symptoms Patient denies exposure to infectious person. Patient denies travel to an Ebola-affected area in the 21 days before illness onset. No symptoms or risks identified at this time. Initial Sepsis Screen: Does the patient meet any 2 criteria? No. Patient's initial sepsis screen is negative. Does the patient have a suspected source of infection? No. Patient's initial sepsis screen is negative. Risk Assessment: Do you want to hurt yourself or someone else?. Onset of symptoms was January 22, 2024. 04:32 Method Of Arrival: Ambulatory vc1 04:32 Acuity: BUCKY 4 vc1 Triage Assessment: 04:36 General: Appears in no apparent distress. uncomfortable, ill, Behavior is calm, vc1 cooperative, appropriate for age. Pain: Complains of pain in headache. EENT: No deficits noted. No signs and/or symptoms were reported regarding the EENT system. Neuro: Reports headache. Cardiovascular: Patient's skin is warm and dry. Respiratory: Reports shortness of breath cough that is Airway is patent Respiratory effort is even, unlabored, Respiratory pattern is regular, symmetrical, the patient has mild shortness of breath. Derm: Skin is intact, Skin temperature is warm. Historical: - Allergies: 04:34 Bactrim; vc1 04:34 Iodine; vc1 04:34 Keflex; vc1 04:34 Latex; vc1 04:34 Toradol; vc1 04:34 promethazine HCl; vc1 04:34 Levaquin; vc1 - PMHx: 04:34 Anxiety; Arthritis; Chronic pain; Crohn's; GERD; Hypertensive disorder; Pancreatitis; vc1 PTSD; - PSHx: 04:34 eye; hernia; vc1 - Immunization history:: Client reports having NOT received the Covid vaccine. - Infectious Disease History:: Denies. - Social history:: Smoking status: unknown. Screenin:35 [facility] ED Fall Risk Assessment (Adult) History of falling in the last 3 months, vc1 including since admission No falls in past 3 months (0 pts) Confusion or Disorientation No (0 pts) Intoxicated or Sedated No (0 pts) Impaired Gait No (0 pts) Mobility Assist Device Used No (0 pt) Altered Elimination No (0 pt) Score/Fall Risk Level 0 - 2 = Low Risk Oriented to surroundings, Maintained a safe environment, Educated pt \T\ family on fall prevention, incl call for assistance when getting out of bed. Abuse screen: Denies threats or abuse. Nutritional screening: No deficits noted. Tuberculosis screening: No symptoms or risk factors identified. Assessment: 05:21 General: Appears in no apparent distress. comfortable, Behavior is calm, cooperative, mt4 appropriate for age. Pain: Denies pain. Neuro: Level of Consciousness is awake, alert, obeys commands, Oriented to person, place, time, situation, Pan Dumper are equal bilaterally Moves all extremities. Full function Gait is steady, Speech is normal, Facial symmetry appears normal. Cardiovascular: Capillary refill < 3 seconds Patient's skin is warm and dry. Respiratory: Airway is patent Respiratory effort is unlabored, Respiratory pattern is regular, Sputum is. Vital Signs: 04:32 BP 146 / 72; Pulse 70; Resp 20; Temp 98.1; Pulse Ox 99% ; vc1 [place] Coma Score: 05:21 Eye Response: spontaneous(4). Motor Response: obeys commands(6). Verbal Response: mt4 oriented(5). Total: 15. ED Course: 03:59 Patient arrived in ED. gm2 04:22 Pal Ferreira MD is Attending Physician. mack 04:34 Triage completed. vc1 04:35 Arm band placed on right wrist. vc1 04:35 Patient has correct armband on for positive identification. Bed in low position. Pulse vc1 ox on. NIBP on. 05:21 No apparent distress. mt4 05:21 Provided Education on: discharge education . Noise minimized. mt4 05:21 No provider procedures requiring assistance completed. Patient did not have IV access mt4 during this emergency room visit. Patient maintains SpO2 saturation greater than 95% on room air. Administered Medications: No medications were administered Medication: 04:36 VIS not applicable for this client. vc1 Outcome: 04:52 Discharge ordered by . mack 05:21 Transferred mt4 05:21 Condition: stable 05:21 Discharge instructions given to patient, Instructed on discharge instructions, follow up and referral plans. medication usage, Demonstrated understanding of instructions, follow-up care, medications, Prescriptions given X 4, 05:24 Patient left the ED. mt4 Signatures: Pal Ferreira MD MD cha Calcote, Vanessa, RN RN vc1 Porsche Ceballos gm2 Mando Mckeon RN RN mt4
--- NOTE | 2024-01-25 04:53 | EDPHYS ---
Physician Documentation [facility] Name: Alfredo Escobar Age: 63 yrs Sex: Male : 1960 Arrival Date: 01/25/2024 Time: 03:49 Bed 20 Private MD: ED Physician Pal Ferreira HPI: 01/24 04:39 This 63 yrs old Male presents to ER via Ambulatory with complaints of Covid, mack Painful Cough, Chest Congestion. 04:39 The patient or guardian reports cough, flu symptoms, arthralgias, low-grade fever, mack myalgias. Onset: The symptoms/episode began/occurred 3 day(s) ago. Severity of symptoms: At their worst the symptoms were mild, in the emergency department the symptoms are unchanged. Associated signs and symptoms: The patient has no apparent associated signs or symptoms. Historical: - Allergies: 04:34 Bactrim; vc1 04:34 Iodine; vc1 04:34 Keflex; vc1 04:34 Latex; vc1 04:34 Toradol; vc1 04:34 promethazine HCl; vc1 04:34 Levaquin; vc1 - PMHx: 04:34 Anxiety; Arthritis; Chronic pain; Crohn's; GERD; Hypertensive disorder; Pancreatitis; vc1 PTSD; - PSHx: 04:34 eye; hernia; vc1 - Immunization history:: Client reports having NOT received the Covid vaccine. - Infectious Disease History:: Denies. - Social history:: Smoking status: unknown. ROS: 04:41 Constitutional: Negative for fever, chills, and weight loss, Eyes: Negative for injury, mack pain, redness, and discharge, ENT: Negative for injury, pain, and discharge, Neck: Negative for injury, pain, and swelling, Cardiovascular: Negative for chest pain, palpitations, and edema, Abdomen/GI: Negative for abdominal pain, nausea, vomiting, diarrhea, and constipation, Back: Negative for injury and pain, : Negative for injury, bleeding, discharge, and swelling, MS/Extremity: Negative for injury and deformity, Skin: Negative for injury, rash, and discoloration, Neuro: Negative for headache, weakness, numbness, tingling, and seizure, Psych: Negative for depression, anxiety, suicide ideation, homicidal ideation, and hallucinations, Allergy/Immunology: Negative for hives, rash, and allergies, Endocrine: Negative for neck swelling, polydipsia, polyuria, polyphagia, and marked weight changes, Hematologic/Lymphatic: Negative for swollen nodes, abnormal bleeding, and unusual bruising, 04:41 Respiratory: Positive for cough, shortness of breath, at rest. Exam: 04:41 Constitutional: This is a well developed, well nourished patient who is awake, alert, mack and in no acute distress. Head/Face: Normocephalic, atraumatic. Eyes: Pupils equal round and reactive to light, extra-ocular motions intact. Lids and lashes normal. Conjunctiva and sclera are non-icteric and not injected. Cornea within normal limits. Periorbital areas with no swelling, redness, or edema. ENT: Nares patent. No nasal discharge, no septal abnormalities noted. Tympanic membranes are normal and external auditory canals are clear. Oropharynx with no redness, swelling, or masses, exudates, or evidence of obstruction, uvula midline. Mucous membranes moist. Neck: Trachea midline, no thyromegaly or masses palpated, and no cervical lymphadenopathy. Supple, full range of motion without nuchal rigidity, or vertebral point tenderness. No Meningismus. Chest/axilla: Normal chest wall appearance and motion. Nontender with no deformity. No lesions are appreciated. Cardiovascular: Regular rate and rhythm with a normal S1 and S2. No gallops, murmurs, or rubs. Normal PMI, no JVD. No pulse deficits. Abdomen/GI: Soft, non-tender, with normal bowel sounds. No distension or tympany. No guarding or rebound. No evidence of tenderness throughout. Back: No spinal tenderness. No costovertebral tenderness. Full range of motion. Male : Normal genitalia with no discharge or lesions. Skin: Warm, dry with normal turgor. Normal color with no rashes, no lesions, and no evidence of cellulitis. MS/ Extremity: Pulses equal, no cyanosis. Neurovascular intact. Full, normal range of motion. Neuro: Awake and alert, GCS 15, oriented to person, place, time, and situation. Cranial nerves II-XII grossly intact. Motor strength 5/5 in all extremities. Sensory grossly intact. Cerebellar exam normal. Normal gait. Psych: Awake, alert, with orientation to person, place and time. Behavior, mood, and affect are within normal limits. 04:41 Respiratory: the patient does not display signs of respiratory distress, Respirations: normal, Breath sounds: rhonchi, that are mild, stridor, is not appreciated, + upper airway congestion. 04:41 Musculoskeletal/extremity: Circulation is intact in all extremities. Sensation intact. Compartment Syndrome exam of affected extremity: is normal. no pain, no numbness, no tingling, no sensation deficit, no palor, no weak pulses, DVT Exam: No signs of deep vein thrombosis. no pain, no swelling, no tenderness, negative Homans' sign noted on exam, no appreciated bluish discoloration, no erythema, no increased warmth, Vital Signs: 04:32 BP 146 / 72; Pulse 70; Resp 20; Temp 98.1; Pulse Ox 99% ; vc1 [place] Coma Score: 05:21 Eye Response: spontaneous(4). Motor Response: obeys commands(6). Verbal Response: mt4 oriented(5). Total: 15. MDM: 04:22 Patient medically screened. mack 04:45 Differential Diagnosis: sepsis, flu, Obstructed Airway Bronchitis Influenza Upper mack Respiratory Infection Sinusitis Pharyngitis Viral Syndrome Pneumonia. Data reviewed: vital signs, nurses notes. Consideration of Admission/Observation Patient was admitted/placed on observation. Escalation of care including admission/observation considered. I considered the following discharge prescriptions or medication management in the emergency department Medications were administered in the Emergency Department. See MAR. Test considered but Not performed: Labs: NO LABS , NO CXR. Historians other than the Patient: PT WELL INFORMED. Care significantly affected by the following chronic conditions: Hypertension, Obesity, ANXIETY, OA, CHRONIC PAIN, PANCREATITIS, PTSD. Administered Medications: No medications were administered Disposition Summary: 01/25/24 04:52 Discharge Ordered Notes: Location: Home mack Problem: new mack Symptoms: have improved mack Condition: Stable mack Diagnosis - SARS-associated coronavirus as the cause of diseases classified elsewhere mack - Acute upper respiratory infection, unspecified mack - Cough mack Followup: mack - With: Private Physician - When: 2 - 3 days - Reason: Recheck today's complaints, Continuance of care, Re-evaluation by your physician Discharge Instructions: - Discharge Summary Sheet mack - Upper Respiratory Infection, Adult mack - Cool Mist Vaporizer mack - Cough, Adult, [id number] mack - Viral Respiratory Infection, [id number] mack - Aspirin and Your Heart mack - Cough, Adult mack - COVID-19 mack - 10 Things You Can Do to Manage Your COVID-19 Symptoms at Home - [facility] (12/18/2020) [facility] - Viral Illness, Adult [facility] Forms: - Medication Reconciliation Form [facility] - Antibiotic Education mack - Prescription Opioid Use mack - Patient Portal Instructions [facility] - Leadership Thank You Letter [facility] Prescriptions: - Paxlovid 300 mg (150 mg x 2)-100 mg Oral Tablet, Dose Pack - take 1 dose pack ORAL route as directed on dose pack take ONE 150 mg tablet of mack nirmatrelvir with ONE 100 mg tablet of ritonavir twice daily for 5 days; 30 tablet; Refills: 0, Product Selection Permitted - Pepcid 20 mg Oral tablet - take 1 tablet ORAL route every 12 hours for 21 days; 42 tablet; Refills: 0, [facility] Product Selection Permitted - Tessalon Perles 100 mg Oral capsule - take 2 capsule ORAL route every 8 hours As needed; 30 capsule; Refills: 0, [facility] Product Selection Permitted - Guaifenesin AC 10-100 mg/5 mL Oral liquid - take 7.5 milliliter ORAL route every 6 hours As needed; 160 milliliter; [facility] Refills: 0, Product Selection Permitted - Zithromax 500 mg Oral Tablet - take 1 tablet ORAL route once daily for 5 days; 5 tablet; Refills: 0, Product [facility] Selection Permitted Signatures: Pal Ferreira MD MD cha Calcote, Vanessa RN RN vc1
[2024-01-25 05:29] VITALS: BP 146/72; TEMP 98.1; O2SAT 99
== END 2024-01-25 05:24 | disposition home or self-care (01) ==
LOC: ER 03:49
DX: U07.1 COVID-19 (principal); B97.21 SARS-associated coronavirus as the cause of diseases classified elsewhere; J06.9 Acute upper respiratory infection, unspecified; R05.9 Cough, unspecified; I10 Essential (primary) hypertension; K50.90 Crohn's disease, unspecified, without complications; K21.9 Gastro-esophageal reflux disease without esophagitis; M19.90 Unspecified osteoarthritis, unspecified site; F43.10 Post-traumatic stress disorder, unspecified; Z28.310 Unvaccinated for COVID-19; Z88.5 Allergy status to narcotic agent; Z88.1 Allergy status to other antibiotic agents; Z91.041 Radiographic dye allergy status; Z91.040 Latex allergy status
CPT/HCPCS: 99285

== ENCOUNTER 2024-01-26 07:01 | Emergency (ER) | payer OTHER ==
--- OUTSIDE RECORDS SUMMARY | 2024-01-26 07:06 | XMS REPORT | Continuity of Care Document ---
Author Name Unknown Address [address] [facility] [address] [place] [address] [facility] thconnect Address [address] [facility] [address] [place] [address] Care Team Providers Care Trouble Shooter Name Role Phone Unknown, Physician Primary Care Physician Reese Rod Attending Clinician Unavailable Fernanda Lockwood Attending Clinician Unavailable ROBBIN CARROLL Attending Clinician Unavailable Team, [facility] Health Maintenance Attending Melchoria n Robbin Morton MD Attending Clinician [phone] INA MIKE Attending Clinician Briana Ina Nolan MD Attending Clinician Lab, Ang - Db Attending Clinician Unavailable WARD SANTOS Attending Clinician UnavailShania Bloom Attending Clinician Doctor Unassigned, Short Pump Attending Clinician U navailable Ajgildardode_O_AH Attending Clinician Unavailable Ige-Jerica_Skylar_GREG Attending Clinician Unavailable LUCHO ALFARO Attending Clinician Unavailable Lucho Alfaro NP Attending Clinician Ajibade_O_AH Admitting Clinician Unavailable Ige-Odrubia_J_AH Admitting Clinician Unavailable LUCHO ALFARO Admitting Clinician Unavailable Payers Payer Name Policy Type Policy Number Effective Date Expirati on Date Source WELLCARE/WELLCA RE [place] [id number] 2021 00:00:00 [facility] MCR Advantage PPO [id number] [facility] WellCare MCR C1 [id number] [facility] Wellcare C1 [id number] [facility] Wellcare C1 [id number] [facility] WELL[place]ARE OF [place] (MEDICARE REPLACEMENT/ADV ANTAGE - HMO) [id number] 2019 00:00:00 Problems Condition Name Condition Details Condition Category Status Onset Date Resolution Date Last Treatment Date Treating Clinician Comments Source Acute midline low back pain with bilateral sciatica Acute midline low back pain with bilateral sciatica Disease Active 10-02 00:00: 00 [facility] Medicare annual wellness visit, subsequent Medicare annual wellness visit, subsequent Disease Active 10-02 00:00: 00 [facility] Chronic pain syndrome Chronic pain syndrome Disease Active 07-04 00:00: 00 [facility] Anxiety Anxiety Disease Active 07-04 00:00: 00 [facility] Crohn's disease of both small and large intestine with other complicati on Crohn's disease of both small and large intestine with other complicati on Disease Active 07-04 00:00: 00 [facility] Low HDL (under 40) Low HDL (under 40) Disease Active 07-04 00:00: 00 [facility] Nocturia Nocturia Disease Active 2024-0 1-30 00:00: 00 [facility] Chronic pancreatit is Chronic pancreatit is Disease Active 2022-06 00:00: 00 [facility] Psoriatic arthritis Psoriatic arthritis Disease Active 2022-06 00:00: 00 [facility] Primary hypertensi on Primary hypertensi on Disease Active 2022-06 00:00: 00 [facility] Other specified glaucoma Other specified glaucoma Disease Active 2022-06 00:00: 00 [facility] Gastroesop hageal reflux disease without esophagiti s Gastroesop hageal reflux disease without esophagiti s Disease Active 2022-06 00:00: 00 [facility] PTSD (post-trau matic stress disorder) PTSD (post-trau matic stress disorder) Disease Active 2022-06 00:00: 00 [facility] No known active problems No known active problems Disease [facility] Memory impairment (finding) Memory impairment (finding) Active [...] Total retinal detachment , right eye Problem [facility] [id number] Acute upper respirator y infection Problem [facility] [id number] Abnormal blood sugar Problem [facility] 77635820 Hyperglyce alex Problem [facility] [id number] Generalize d anxiety disorder Problem [facility] 911369756 Diverticul osis Problem [facility] [id number] BPH loc w/o ur obs/LUTS Problem [facility] 55053512 Arthropath ic psoriasis Problem [facility] 92810926 Crohn''s disease without complicati on, unspecifie d gastrointe stinal tract location Problem [facility] 42065513 Chronic fatigue Problem [facility] [id number] Cervical spondylosi s without myelopathy Problem [facility] 00565173 BMI 29.0-29.9, adult Problem [facility] 111748261 Nausea Problem [facility] [id number] Lumbar sprain, initial encounter Problem [facility] 37719209 Wheezing Problem [facility] [id number] Hospital discharge follow-up Problem [facility] 54029234 Acute tonsilliti s, unspecifie d etiology Problem [facility] Dizziness (finding) Dizziness (finding) Active Problem 04/22/2019 [facility] Problem Active 2019-04-22 01:06:38 Dieudonne Gordon [id number] Panic disorder with agoraphobi a Problem [facility] [id number] Asymptomat ic microscopi c hematuria Problem [facility] 35949548 Constipati on, unspecifie d constipati on type Problem [facility] 732637112 Carotid artery disease, unspecifie d laterality , unspecifie d type Problem [facility] 35437151 Right epididymit is Problem [facility] [id number] [facility] [id number] 9104 Narcolepsy without cataplexy Problem [facility] 19930054 Pelvic pain Problem [facility] 11378431 Disc disorder Problem [facility] 744073924 Perineal pain Problem [facility] 43768239 Scrotum pain Problem [facility] 703492576 BPH loc w urin obs/LUTS Problem [facility] 91100398 Chronic prostatiti s Problem [facility] Hypertensi ve disorder, systemic arterial (disorder) Hypertensi ve disorder, systemic arterial (disorder) Active Problem 04/22/2019 [facility] Problem Active 2019-04-22 01:06:38 Dieudonne Gordon Allergies, Adverse Reactions, Alerts Allergy Name Allergy Type Status Severity Reaction(s) Onset Date Inactive Date Treating Clinician Comments Source Trimetho prim Drug Allergy Active Other - See comments 07-18 00:00: 00 Other reaction( s): SWELING [facility] Vancomyc in Drug Allergy Active Other - See comments 07-18 00:00: 00 Other reaction( s): Unknown [facility] TRIMETHO PRIM DRUG INGREDI Active Other-Cmnt 07-18 00:00: 00 [facility] VANCOMYC IN DRUG INGREDI Active Other-Cmnt 07-18 00:00: 00 [facility] Sulfamet hoxazole Allergy to substanc e Active 07-18 00:00: 00 Other reaction( s): [facility] Trimetho prim Allergy to substanc e Active 07-18 00:00: 00 Other reaction( s): [facility] Vancomyc in Allergy to substanc e Active 07-18 00:00: 00 Other reaction( s): Unknown [facility] Ketorola c Allergy to substanc e Active 07-18 00:00: 00 Other reaction( s): Unknown [facility] Sulfamet hoxazole -Trimeth oprim Drug Allergy Active Rash 06-27 00:00: 00 Other reaction( s): rash [facility] PROMETHA ZINE DRUG INGREDI Active Other-Cmnt - 00:00: 00 [facility] CEPHALEX IN DRUG INGREDI Active Low Rash 2020-06-27 00:00: 00 [facility] SULFAMET HOXAZOLE -TRIMETH OPRIM DRUG Active Low Rash 2020-0 06-27 00:00: 00 [facility] Cephalex in Drug Allergy Active Rash 06-27 00:00: 00 Other reaction( s): rash, SWELLING [facility] Prometha zine Drug Allergy Active Other - See comments 06-27 00:00: 00 Other reaction( s): hives, hives, SWELLING [facility] Prometha zine Allergy to substanc e Active 06-27 00:00: 00 Other reaction( s): hives, hives, SWELLING [facility] Sulfamet hoxazole -Trimeth oprim Allergy to substanc e Active Rash 06-27 00:00: 00 Other reaction( s): rash [facility] Cephalex in Allergy to substanc e Active Rash 06-27 00:00: 00 Other reaction( s): rash, SWELLING [facility] Iodides Propensi ty to adverse reaction s Active Hives 12-06 00:00: 00 [facility] Latex Propensi ty to adverse reaction s Active Rash 12-06 00:00: 00 [facility] Levoflox acin Propensi ty to adverse reaction s Active Anaphylaxis 12-06 00:00: 00 [facility] Ketorola c Trometha mine Propensi ty to adverse reaction s Active Other - See comments 12-06 00:00: 00 Pin needle pains to stomach [facility] IODIDES DRUG Active Hives 12-06 00:00: 00 [facility] LATEX DRUG INGREDI Active Rash 12-06 00:00: 00 [facility] LEVOFLOX ACIN DRUG INGREDI Active Anaphylaxis 12-06 00:00: 00 [facility] KETOROLA C TROMETHA MINE DRUG INGREDI Active Other-Cmnt 12-06 00:00: 00 [facility] Ketorola c Trometha mine Allergy to substanc e Active 12-06 00:00: 00 Other reaction( s): Other - See comments, SWELLINGP in needle pains to stomach [facility] Latex Allergy to substanc e Active Rash 12-06 00:00: 00 [facility] Iodides Allergy to substanc e Active Hives 12-06 00:00: 00 Other reaction( s): Unknown [facility] Iodides Allergy to substanc e Active Hives 12-06 00:00: 00 Other reaction( s): Unknown [facility] Levoflox acin Allergy to substanc e Active Anaphylaxis 2013-06 00:00: 00 Other reaction( s): stops breathing , SWELLING, Unknown [facility] 8091 Drug allergy Active rash [facility] [address]23 Drug allergy Active stops breathing [facility] Social History Social Habit Start Date Stop Date Quantity Comments Source [facility] Tobacco Use [facility] Alcohol intake 2023-10-03 00:00:00 2023-10-03 00:00:00 Ex-drinker (finding) [facility] History of Social function 2023-10-03 00:00:00 2023-10-03 00:00:00 [facility] Alcoholic beverage intake 2023-10-03 00:00:00 2023-10-03 00:00:00 Ex-drinker (finding) [facility] Tobacco use and exposure 2023-04-12 00:00:00 2023-04-12 00:00:00 Smokeless tobacco non-user [facility] Exposure to SARS-CoV-2 (event) 2022-05-02 00:00:00 2022-05-12 11:32:[address] [facility] Sex Ass[birth year] At 1960 00:00:00 1960 00:00:00 [facility] Smoking Status Start Date Stop Date Source Tobacco smoking consumption unknown [facility] Never smoked tobacco [facility] Social History 2019-03-28 18:18:16 2019-03-28 18:18:16 [facility] Medications Ordered Medication Name Filled Medication Name Start Date Stop Date Current Medication? Ordering Clinician Indication Dosage Frequency Signature (SIG) Comments Components Source DULoxetine 30 mg capsule 10-02 00:00: 00 Yes [id number] 30mg Take 1 capsule by mouth in the morning. [facility] carvediloL 25 mg tablet 10-02 00:00: 00 Yes [id number] 25mg Take 1 tablet by mouth in the morning and 1 tablet in the evening. Take with meals. [facility] Amylase-Lip ase-Proteas e (CREON) 24,000-76,0 00 -120,000 unit capsule 10-02 00:00: 00 Yes [id number] Take 1 capsule by mouth in the morning and 1 capsule at noon and 1 capsule in the evening. Take with meals. [facility] pantoprazol e 40 mg EC tablet 10-02 00:00: 00 Yes [id number] 40mg Take 1 tablet by mouth in the morning. [facility] ondansetron 4 mg tablet 10-02 00:00: 00 Yes [id number] 4mg Take 1 tablet by mouth every 6 (six) hours as needed for Nausea and Vomiting (N/V). [facility] albuterol (VENTOLIN HFA) 90 mcg/actuati on inhaler 07-04 14:23: 05 07-04 00:00 :00 No 2{puff} Inhale 2 Puffs every 6 (six) hours as needed for Wheezing or Shortness of Breath. [facility] albuterol 90 mcg/actuati on inhaler 07-04 14:22: 58 07-04 00:00 :00 No 2{puff} Inhale 2 Puffs every 6 (six) hours as needed for Wheezing or Shortness of Breath. [facility] Amylase-Lip ase-Proteas e (CREON) 24,000-76,0 00 -120,000 unit capsule 07-04 14:22: 27 07-04 00:00 :00 No [id number] Take 1 capsule by mouth in the morning and 1 capsule at noon and 1 capsule in the evening. Take with meals. [facility] carvediloL 25 mg tablet 07-04 00:00: 00 10-02 00:00 :00 No [id number] 25mg Take 1 tablet by mouth in the morning and 1 tablet in the evening. Take with meals. [facility] DULoxetine 30 mg capsule 07-04 00:00: 00 10-02 00:00 :00 No [id number] 30mg Take 1 capsule by mouth in the morning. [facility] pantoprazol e 40 mg EC tablet 07-04 00:00: 00 10-02 00:00 :00 No [id number] 40mg Take 1 tablet by mouth in the morning. [facility] ondansetron 4 mg tablet 07-04 00:00: 00 10-02 00:00 :00 No [id number] 4mg Take 1 tablet by mouth every 6 (six) hours as needed for Nausea and Vomiting (N/V). [facility] Amylase-Lip ase-Proteas e (CREON) 24,000-76,0 00 -120,000 unit capsule 07-04 00:00: 00 10-02 00:00 :00 No [id number] 48895C Take 1 capsule by mouth in the morning and 1 capsule at noon and 1 capsule in the evening. Take with meals. [facility] carvedilol (COREG) 25 mg tablet 2022-06 15:04: 39 04-12 00:00 :00 No 25mg Take 1 tablet by mouth in the morning and 1 tablet in the evening. Take with meals. [facility] predniSONE 20 mg tablet 2022-06 14:43: 26 04-12 00:00 :00 No 20mg Take 1 tablet by mouth in the morning. [facility] Amylase-Lip ase-Proteas e (CREON) 24,000-76,0 00 -120,000 unit capsule 2022-06 14:26: 48 Yes [id number] Take 1 capsule by mouth in the morning and 1 capsule at noon and 1 capsule in the evening. Take with meals. [facility] albuterol 90 mcg/actuati on inhaler 2022-06 14:26: 48 Yes 2{puff} Inhale 2 Puffs every 6 (six) hours as needed for Wheezing or Shortness of Breath. [facility] blood sugar diagnostic (ONE TOUCH TEST MISC) 2022-06 14:26: 48 Yes One touch ultra blue test strip [facility] HYDROcodone -acetaminop hen (NORCO) 7.5-325 mg per tablet 2022-06 14:22: 42 04-12 00:00 :00 No 1{tbl} Take 1 Tab by mouth every 6 (six) hours as needed for Pain. [facility] LIPASE/PROT EASE/AMYLAS E (CREON 10 ORAL) 2022-06 14:22: 42 04-12 00:00 :00 No Take by mouth. [facility] DULoxetine 30 mg capsule 2022-06 00:00: 00 07-04 00:00 :00 No [id number] 30mg Take 1 capsule by mouth in the morning. [facility] carvediloL 25 mg tablet 2022-06 00:00: 00 07-04 00:00 :00 No [id number] 25mg Take 1 tablet by mouth in the morning and 1 tablet in the evening. Take with meals. [facility] ondansetron 4 mg tablet 02-14 00:00: 00 07-04 00:00 :00 No 4mg Take 1 tablet by mouth every 6 (six) hours as needed for Nausea and Vomiting (N/V). [facility] clonazePAM 1 mg tablet 02-14 00:00: 00 04-12 00:00 :00 No 1mg Take 1 tablet by mouth 2 (two) times daily as needed. [facility] gabapentin 300 mg capsule 02-07 00:00: 00 Yes TAKE 1 CAPSULE TWICE A DAY FOR 28 DAY(S) [facility] pantoprazol e 40 mg EC tablet 12-10 00:00: 00 07-04 00:00 :00 No 40mg Take 1 tablet by mouth in the morning. [facility] clonazePAM 0.5 MG clonazePAM 0.5 MG - 00:00: 00 No QD clonazePAM 0.5 MG [...] Combigan 0.2-0.5 % Combigan 0.2-0.5 % 1 1- 00:00: 00 No 1{drop_ into_af fected_ [...] clonazePAM 1 MG clonazePAM 1 MG 2-0 7- 00:00: 00 No QD clonazePAM 1 MG clonazePAM 1 MG clonazePAM 1 MG 1-0 9- 00:00: 00 No BID clonazePAM 1 MG Flomax 0.4 MG Flomax 0.4 MG 0 7-22 00:00: 00 07-21 00:00 :00 No [...] Zofran 4 MG acyclovir 5 % ointment 16 00:00: 00 04-12 00:00 :00 No [id number] Apply to area(s) 5 (five) times daily. [facility] valsartan 40 mg oral tablet 2018-06 19:12: 00 Yes 0 Refill(s) Dieudonne Gordon pantoprazol e 40 mg oral enteric coated tablet 09-26 19:00: 00 Yes 40 mg = 1 tab, PO, Daily, # 30 tab, 0 Refill(s) Dieudonne Gordon Acetaminoph en 325 MG / Hydrocodone Bitartrate 10 MG Oral Tablet [Thorpe 10/325] 09-26 19:00: 00 Yes 1 tab, PO, QID, 0 Refill(s) Dieudonne Gordon Clonazepam 2 MG Oral Tablet [Klonopin] 09-26 19:00: 00 Yes 2 mg = 1 tab, PO, BID, # 60 tab, 0 Refill(s) Dieudonne Gordon Aspirin 81 Aspirin 81 09-14 00:00: 00 Yes Esthela Dunham [address] [facility] Aspirin 81 81 MG Aspirin 81 [...] 00:00: 00 Yes Esthela Dunham [address] [facility] Albuterol Sulfate HFA 108 (90 Base) [...] 6 (six) hours as needed for Pain. [facility] LIPASE/PROT EASE/AMYLAS E (CREON 10 ORAL) 12-06 06:42: 52 Yes Take by mouth. [facility] carvedilol (COREG) 25 mg tablet 12-06 06:42: 52 Yes 25mg Take 25 mg by mouth 2 (two) times daily with meals. [facility] metroNIDAZO LE (FLAGYL) 500 mg tablet 12-06 00:00: 00 04-12 00:00 :00 No 500mg Take 1 Tab by mouth 2 (two) times daily. [facility] proMETHazin e (PHENERGAN) 25 mg tablet 12-06 00:00: 00 04-12 00:00 :00 No 25mg Take 1 Tab by mouth every 6 (six) hours as needed for Nausea and Vomiting (N/V). [facility] Clonazepam Clonazepam Yes Esthela Montcalm TAKE 1 TABLET BY MOUTH TWICE A DAY [facility] Carvedilol Carvedilol Yes Esthela Montcalm take 1 tablet by mouth twice a day [facility] Famotidine Famotidine Yes Esthela Montcalm [address] [facility] Protonix Protonix Yes Esthela Montcalm [address] [facility] Dicyclomine HCl Dicyclomine HCl Yes Esthela Montcalm [address] [facility] Ventolin HFA Ventolin HFA Yes Esthela Montcalm [address] [facility] Valsartan Valsartan Yes Esthela Montcalm [address] [facility] Hydrocodone -Acetaminop hen Hydrocodone -Acetaminop hen Yes Esthela Montcalm (Schedule II Drug) TK [address] [facility] Dicyclomine HCl 20 MG Dicyclomine HCl 20 MG No 1{table t} QID Dicyclomin e HCl 20 MG OneTouch Ultra - OneTouch Ultra - No OneTouch Ultra - Lactulose 10 GM/15ML Lactulose 10 GM/15ML No 15{ml} Lactulose 10 GM/15ML OneTouch Delica Plus Nklspd50D - OneTouch Delica Plus Bxywzo72K - No OneTouch Delica Plus Oxhpzj85X - Famotidine 20 MG Famotidine 20 MG [...] 15{ml} Lactulose 10 GM/15ML OneTouch Delica Plus Mtnacp16C - OneTouch Delica Plus Mujcjq76N - No OneTouch Delica Plus Uirbcy63P - Protonix 40 MG Protonix 40 MG No 1{table t} QD Protonix 40 MG OneTouch Ultra - OneTouch Ultra - No OneTouch Ultra - Ventolin HFA 108 (90 Base) MCG/ACT Ventolin HFA 108 (90 Base) MCG/ACT No 2{puffs } Ventolin HFA 108 (90 Base) MCG/ACT Protonix 40 MG Protonix 40 MG No 1{table t} QD Protonix 40 MG OneTouch Delica Plus Qmajde47W - OneTouch Delica Plus Bvvjrk03Q - No OneTouch Delica Plus Dwmxrg08R - Albuterol Sulfate HFA 108 (90 Base) [...] QD Protonix 40 MG OneTouch Delica Plus Mwagqt78L - OneTouch Delica Plus Kuhdch64Z - No OneTouch Delica Plus Eqdsum56V - Albuterol Sulfate HFA 108 (90 Base) [...] QD Protonix 40 MG OneTouch Delica Plus Fxlqnk98R - OneTouch Delica Plus Keznws04I - No OneTouch Delica Plus Abnaod06G - Famotidine 20 MG Famotidine 20 MG [...] QD Protonix 40 MG OneTouch Delica Plus Erqzuk95J - OneTouch Delica Plus Ielxox39G - No OneTouch Delica Plus Wgperq54C - Famotidine 20 MG Famotidine 20 MG [...] QD Protonix 40 MG OneTouch Delica Plus Pgoeul38J - OneTouch Delica Plus Ovdxhp63N - No OneTouch Delica Plus Tmjdyu93Y - Famotidine 20 MG Famotidine 20 MG [...] QD Protonix 40 MG OneTouch Delica Plus Wyahob04K - OneTouch Delica Plus Iuxabr33X - No OneTouch Delica Plus Gsvvrl98L - Ventolin HFA 108 (90 Base) MCG/ACT Ventolin HFA 108 (90 Base) MCG/ACT No 2{puffs } Ventolin HFA 108 (90 Base) MCG/ACT Carvedilol 25 MG Carvedilol 25 MG No 1{table t_with_ food} BID Carvedilol 25 MG OneTouch Ultra - OneTouch Ultra - No OneTouch Ultra - OneTouch Delica Plus Vznbdj40V - OneTouch Delica Plus Fajemt89R - No OneTouch Delica Plus Dgqxgm25L - Protonix 40 MG Protonix 40 MG No 1{table t} QD Protonix 40 MG Ventolin HFA 108 (90 Base) MCG/ACT Ventolin HFA 108 (90 Base) MCG/ACT No 2{puffs } Ventolin HFA 108 (90 Base) MCG/ACT Carvedilol 25 MG Carvedilol 25 MG No 1{table t_with_ food} BID Carvedilol 25 MG OneTouch Ultra - OneTouch Ultra - No OneTouch Ultra - OneTouch Delica Plus Vzjnxe69V - OneTouch Delica Plus Rgmsxh83F - No OneTouch Delica Plus Uvpjqz57I - Protonix 40 MG Protonix 40 MG No 1{table t} QD Protonix 40 MG Ventolin HFA 108 (90 Base) MCG/ACT Ventolin HFA 108 (90 Base) MCG/ACT No 2{puffs } Ventolin HFA 108 (90 Base) MCG/ACT Carvedilol 25 MG Carvedilol 25 MG No 1{table t_with_ food} BID Carvedilol 25 MG OneTouch Ultra - OneTouch Ultra - No OneTouch Ultra - OneTouch Delica Plus Jcouzb10I - OneTouch Delica Plus Olqjce87G - No OneTouch Delica Plus Zsroun66L - Protonix 40 MG Protonix 40 MG [...] No OneTouch Ultra - OneTouch Delica Plus Hpqcde86X - OneTouch Delica Plus Zpsnpe39E - No OneTouch Delica Plus Jyrfju26W - HYDROcodone -Acetaminop hen 10-325 MG HYDROcodone [...] No OneTouch Ultra - OneTouch Delica Plus Ksvlrh97H - OneTouch Delica Plus Dlphan67A - No OneTouch Delica Plus Rlkvfy75I - Albuterol Sulfate HFA 108 (90 Base) [...] No OneTouch Ultra - OneTouch Delica Plus Qdbtpy06A - OneTouch Delica Plus Cxfjki88G - No OneTouch Delica Plus Eguycd28N - Albuterol Sulfate HFA 108 (90 Base) [...] day as directed [facility] Vital Signs Vital Name Observation Time Observation Value Comments Nazario stoner Systolic blood pressure 2023-10-03 21:46:00 142 mm[Hg] [facility] Diastolic blood pressure 2023-10-03 21:46:00 92 mm[Hg] [facility] Heart rate 2023-10-03 21:46:00 86 /min [facility] Oxygen saturation in Arterial blood by Pulse oximetry 2023-10-03 21:46:00 96 /min [facility] Systolic blood pressure 2023-10-03 21:03:00 142 mm[Hg] [facility] Diastolic blood pressure 2023-10-03 21:03:00 92 mm[Hg] [facility] Heart rate 2023-10-03 21:03:00 86 /min [facility] Body height 2023-10-03 21:03:00 177.8 cm [facility] Body weight 2023-10-03 21:03:00 99.202 kg [facility] BMI 2023-10-03 21:03:00 31.38 kg/m2 [facility] Systolic blood pressure 2023-07-04 20:00:00 142 mm[Hg] [facility] Diastolic blood pressure 2023-07-04 20:00:00 84 mm[Hg] [facility] Heart rate 2023-07-04 19:59:00 58 /min [facility] Body temperature 2023-07-04 19:59:00 36.11 Jing [facility] Respiratory rate 2023-07-04 19:59:00 17 /min [facility] Body height 2023-07-04 19:59:00 175.3 cm [facility] Body weight 2023-07-04 19:59:00 99.973 kg [facility] BMI 2023-07-04 19:59:00 32.55 kg/m2 [facility] Oxygen saturation in Arterial blood by Pulse oximetry 2023-07-04 19:59:00 97 /min [facility] Systolic blood pressure 2023-04-12 20:19:00 149 mm[Hg] [facility] Diastolic blood pressure 2023-04-12 20:19:00 90 mm[Hg] [facility] Heart rate 2023-04-12 18:55:00 55 /min [facility] Respiratory rate 2023-04-12 18:55:00 18 /min [facility] Body height 2023-04-12 18:55:00 177.8 cm [facility] Body weight 2023-04-12 18:55:00 99.202 kg [facility] BMI 2023-04-12 18:55:00 31.38 kg/m2 [facility] Oxygen saturation in Arterial blood by Pulse oximetry 2023-04-12 18:55:00 98 /min [facility] height 2022-08-30 15:20:00 70 [in_i] Commo n [facility] weight 2022-08-30 15:20:00 216.2 [lb_av] Co mmon [facility] temperature 2022-08-30 15:20:00 97.2 [degF] Com [facility] bmi 2022-08-30 15:20:00 31.02 kg/m2 Comm on [facility] oximetry 2022-08-30 15:20:00 96 % Commo n [facility] respiratory rate 2022-08-30 15:20:00 17 /min [facility] blood pressure systolic 2022-08-30 15:20:00 134 mm[Hg] Common [facility] blood pressure diastolic 2022-08-30 15:20:00 80 mm[Hg] Common [facility] height 2022-04-11 15:40:00 70 [in_i] Commo n [facility] weight 2022-04-11 15:40:00 206.9 [lb_av] Co mmon [facility] temperature 2022-04-11 15:40:00 97.6 [degF] Com mon [facility] bmi 2022-04-11 15:40:00 29.68 kg/m2 Comm on [facility] oximetry 2022-04-11 15:40:00 98 % Commo n [facility] respiratory rate 2022-04-11 15:40:00 18 /min [facility] blood pressure systolic 2022-04-11 15:40:00 138 mm[Hg] [facility] blood pressure diastolic 2022-04-11 15:40:00 72 mm[Hg] Common [facility] height 2022-02-09 13:50:00 70 [in_i] Commo n [facility] weight 2022-02-09 13:50:00 207 [lb_av] Comm on [facility] temperature 2022-02-09 13:50:00 97.9 [degF] Com mon [facility] bmi 2022-02-09 13:50:00 29.7 kg/m2 Commo n [facility] oximetry 2022-02-09 13:50:00 96 % Commo n [facility] respiratory rate 2022-02-09 13:50:00 18 /min Common [facility] blood pressure systolic 2022-02-09 13:50:00 132 mm[Hg] Common [facility] blood pressure diastolic 2022-02-09 13:50:00 70 mm[Hg] [facility] height 2021-12-07 09:20:00 70 [in_i] Commo n [facility] weight 2021-12-07 09:20:00 206.0 [lb_av] Co mmon [facility] temperature 2021-12-07 09:20:00 98.2 [degF] Com [facility] bmi 2021-12-07 09:20:00 29.55 kg/m2 Comm on [facility] oximetry 2021-12-07 09:20:00 99 % Commo n [facility] respiratory rate 2021-12-07 09:20:00 18 /min Common [facility] blood pressure systolic 2021-12-07 09:20:00 137 mm[Hg] [facility] blood pressure diastolic 2021-12-07 09:20:00 70 mm[Hg] Common [facility] height 2021-02-23 14:30:00 70 [in_i] Commo n [facility] weight 2021-02-23 14:30:00 190.0 [lb_av] Co mmon [facility] temperature 2021-02-23 14:30:00 98.3 [degF] Com mon [facility] bmi 2021-02-23 14:30:00 27.26 kg/m2 Comm on [facility] blood pressure systolic 2021-02-23 14:30:00 138 mm[Hg] Common [facility] blood pressure diastolic 2021-02-23 14:30:00 74 mm[Hg] Common [facility] Systolic blood pressure 2020-12-28 20:04:00 155 mm[Hg] [facility] Diastolic blood pressure 2020-12-28 20:04:00 82 mm[Hg] [facility] Heart rate 2020-12-28 20:04:00 61 /min [facility] Body temperature 2020-12-28 20:04:00 36.67 Jing [facility] Respiratory rate 2020-12-28 20:04:00 16 /min [facility] Body height 2020-12-28 20:04:00 177.8 cm [facility] Body weight 2020-12-28 20:04:00 86.183 kg [facility] BMI 2020-12-28 20:04:00 27.26 kg/m2 [facility] Oxygen saturation in Arterial blood by Pulse oximetry 2020-12-28 20:04:00 97 /min [facility] Systolic blood pressure 2019-07-22 04:00:00 147 mm[Hg] [facility] Diastolic blood pressure 2019-07-22 04:00:00 87 mm[Hg] [facility] Heart rate 2019-07-22 04:00:00 54 /min [facility] Respiratory rate 2019-07-22 04:00:00 20 /min [facility] Oxygen saturation in Arterial blood by Pulse oximetry 2019-07-22 04:00:00 99 /min [facility] Body temperature 2019-07-21 23:21:00 37 Jing [facility] Body weight 2019-07-21 23:21:00 86.183 kg [facility] BMI 2019-07-21 23:21:00 27.26 kg/m2 [facility] Systolic blood pressure 2019-07-22 04:00:00 147 mm[Hg] [facility] Diastolic blood pressure 2019-07-22 04:00:00 87 mm[Hg] [facility] Heart rate 2019-07-22 04:00:00 54 /min [facility] Res[facility] rate 2019-07-22 04:00:00 20 /min [facility] Oxygen saturation in Arterial blood by Pulse oximetry 2019-07-22 04:00:00 99 /min [facility] Body temperature 2019-07-21 23:21:00 37 Jing [facility] Body weight 2019-07-21 23:21:00 86.183 kg [facility] BMI 2019-07-21 23:21:00 27.26 kg/m2 [facility] Systolic (mm Hg) 2019-03-28 18:17:00 [facility] Diastolic (mm Hg) 2019-03-28 18:17:00 [facility] Heart Rate 2019-03-28 18:17:00 [facility] [place] Respitory Rate 2019-03-28 18:17:00 [facility] Height 2019-03-28 18:17:00 172.72 cm [facility] [place] Weight 2019-03-28 18:17:00 [facility] [place] BMI Calculated 2019-03-28 18:17:00 [facility] BMI Calculated 2018-09-26 18:51:00 [facility] Weight 2018-09-26 18:51:00 [facility] Height 2018-09-26 18:51:00 172.72 cm [facility] Heart Rate 2018-09-26 18:51:00 [facility]itory Rate 2018-09-26 18:51:00 [facility] Systolic (mm Hg) 2018-09-26 18:51:00 [facility] Diastolic (mm Hg) 2018-09-26 18:51:00 [facility] Procedures Procedure Date / Time Performed Performing Clinicia n Source NOTICE OF PRIVACY PRACTICES 2020-12-28 19:58:01 Doctor Unassigned, [place] [facility] CONSENT/REFUSAL FOR DIAGNOSIS AND TREATMENT 2020-12-28 19:57:10 Doctor Unassigned, [place] [facility] US SCROTUM AND CONTENTS 2019-07-22 03:08:48 Lucho Alfaro [facility] NOTICE OF PRIVACY PRACTICES 2019-07-21 23:12:14 Doctor Unassigned, [place] [facility] CONSENT/REFUSAL FOR DIAGNOSIS AND TREATMENT 2019-07-21 23:07:41 Doctor Unassigned, [place] [facility] Encounters Start Date/Time End Date/Time Encounter Type Admission Type Attending [facility] Care Facility Care Department Encounter ID Source 2023-01-11 16:27:00 [facility] [id number] [facility] 2022-09-12 13:14:00 [facility] [id number] [facility] 2022-08-26 08:40:00 [facility] [id number] [facility] 2022-08-17 14:47:00 [facility] [id number] [facility] 2022-06-02 08:30:58 Outpatient [facility] [id number] [facility] 2022-05-24 13:55:01 [facility] [id number] [facility] 2022-05-23 10:20:01 Outpatient [facility] [id number] [facility] 2022-05-04 14:32:40 Outpatient [facility] [id number] [facility] 2022-04-07 13:30:01 [facility] [id number] [facility] 2022-04-04 10:22:48 Outpatient [facility] [id number] [facility] 2022-03-31 12:03:45 Outpatient [facility] [id number] [facility] 2022-03-30 15:15:47 Outpatient [facility] [id number] [facility] 2022-02-09 13:48:01 Outpatient Jenkins, [facility] [id number] [facility] 2021-12-08 11:45:00 Outpatient Jenkins, [facility] [id number] [facility] 2021-12-07 09:25:00 Outpatient Jenkins, [facility] [id number] [facility] 2021-12-03 09:35:01 Outpatient Jenkins, [facility] [id number] [facility] 2021-06-30 13:05:56 Outpatient Jenkins, [facility] [id number] [facility] 2021-06-30 12:47:29 Outpatient Jenkins, [facility] [id number] [facility] 2021-06-30 12:36:27 Outpatient Jenkins, [facility] [id number] [facility] 2021-06-30 12:35:26 Outpatient Jenkins, [facility] [id number] [facility] 2021-06-30 12:28:53 Outpatient Jenkins, [facility] [id number] [facility] 2021-06-30 12:26:11 Outpatient Jenkins, [facility] [id number] [facility] 2021-06-30 12:12:23 Outpatient Jenkins, [facility] [id number] [facility] 2021-06-30 12:04:45 Outpatient Jenkins, Reese [facility] [id number] [facility] 2021-06-30 11:55:15 [facility] [id number] [facility] 2021-06-30 11:52:56 Outpatient [facility] [id number] [facility] 2021-06-30 11:52:32 Outpatient [facility] [id number] [facility] 2021-06-30 11:02:[address] [facility] [id number] [facility] 2021-06-30 11:02:[address] [facility] [id number] [facility] 2023-12-18 00:00:00 2023-12-18 16:23:17 Telephone Team, [facility] 1..840.114 350.1.13.10 4.2.7.2.686 [id number] [facility] 2023-10-03 14:00:00 2023-10-03 16:58:23 Office Visit Robbin Carroll [facility] 1.2.840.114 350.1.13.10 4.2.7.2.686 [id number] [facility] 2023-10-03 16:00:00 2023-10-03 16:38:39 Outpatient R ROBBIN CARROLL [facility] [id number] [facility] 2023-10-03 16:00:00 2023-10-03 16:38:39 Office Visit Robbin Carroll [facility] 1.2.840.114 350.1.13.10 4.2.7.2.686 [id number] [facility] 2023-07-04 14:00:00 2023-07-04 14:41:34 Outpatient R ROBBIN CARROLL [facility] [id number] [facility] 2023-07-04 14:00:00 2023-07-04 14:41:34 Office Visit aCrlyRobbin [facility] 1..840.114 350.1.13.10 4.2.7.2.686 [id number] [facility] 2023-05-26 14:20:00 2023-05-26 14:20:00 Outpatient R INA MIKE [facility] [id number] [facility] 2023-04-26 00:00:00 2023-04-26 00:00:00 Refill Ina [facility] 1..840.114 350.1.13.10 4.2.7.2.686 [id number] [facility] 2023-04-12 15:15:00 2023-04-12 15:42:32 Stock Receiver Visit Lab, Ina Charles [facility] 1.2.840.114 350.1.13.10 4.2.7.2.686 [id number] [facility] 2023-04-12 15:15:00 2023-04-12 15:15:00 Outpatient R INA MIKE [facility] [id number] [facility] 2023-04-12 14:00:00 2023-04-12 15:06:59 Office Visit Ina Mike [facility] 1..840.114 350.1.13.10 4.2.7.2.686 [id number] [facility] 2022-12-20 00:00:00 2022-12-20 00:00:00 (TEL) STLMLC STLMLC [id number] [facility] 2022-11-03 00:00:00 2022-11-03 00:00:00 (TEL) STLMLC STLMLC [id number] [facility] 2022-09-02 00:00:00 2022-09-02 00:00:00 (TEL) STLMLC STLMLC [id number] [facility] 2022-09-02 00:00:00 2022-09-02 00:00:00 (TEL) STLMLC STLMLC [id number] [facility] 2022-08-30 00:00:00 2022-08-30 00:00:00 OFFICE VISIT ESTAB PT LEVEL [id number] [facility] 2022-08-17 00:00:00 2022-08-17 00:00:00 (TEL) STLMLC STLMLC [id number] [facility] 2022-06-16 13:00:00 2022-06-16 13:00:00 Outpatient WARD SANTOS [facility] [id number] [facility] 2022-05-12 11:30:00 2022-05-12 13:38:22 Office Visit Ward Santos [facility] [address] 1.2.840.114 350.1.13.58 9.2.7.2.[id number] [facility] 2022-04-19 00:00:00 2022-04-19 00:00:00 (TEL) STLMLC STLMLC [id number] [facility] 2022-04-14 10:30:00 2022-04-14 12:17:23 Outpatient WARD SANTOS [facility] [id number] [facility] 2022-04-11 00:00:00 2022-04-11 00:00:00 OFFICE VISIT ESTAB PT LEVEL [id number] [facility] 2022-04-04 10:30:00 2022-04-04 16:18:07 Office Visit Ward Santos [facility] [address] 1.2.840.114 350.1.13.58 9.2.7.2.[id number] [facility] 2022-03-25 11:00:00 2022-03-25 11:00:00 Outpatient WARD SANTOS [facility] [id number] [facility] 2022-03-24 00:00:00 2022-03-24 00:00:00 (TEL) STLMLC STLMLC [id number] [facility] 2022-03-23 00:00:00 2022-03-23 00:00:00 (TEL) STLMLC STLMLC [id number] [facility] 2022-03-23 00:00:00 2022-03-23 00:00:00 (TEL) STLMLC STLMLC [id number] [facility] 2022-03-23 00:00:00 2022-03-23 00:00:00 (TEL) STLMLC STLMLC [id number] [facility] 2022-02-09 00:00:00 2022-02-09 00:00:00 OFFICE VISIT ESTAB PT LEVEL [id number] [facility] 2021-12-07 00:00:00 2021-12-07 00:00:00 OFFICE VISIT ESTAB PT LEVEL [id number] [facility] 2021-03-24 00:00:00 2021-03-24 00:00:00 (TEL) STLMLC STLMLC [id number] [facility] 2021-02-23 00:00:00 2021-02-23 00:00:00 (TELEAUD) AUDIO TELEMEDICI NE STLMLC STLMLC [id number] [facility] 2021-02-22 00:00:00 2021-02-22 00:00:00 (TEL) STLMLC STLMLC [id number] [facility] 2020-12-28 15:10:00 2020-12-28 16:55:00 Emergency Shania Waters S [facility] 1.2.840.114 350.1.13.10 4.2.7.2.686 [id number] [facility] 2020-12-28 14:57:00 2020-12-28 14:57:00 Emergency X [facility] ERT [id number] [facility] 2020-12-28 00:00:00 2020-12-28 00:00:00 Orders Only Doctor Unassigned, [place] [facility] 1.2.840.114 350.1.13.10 4.2.7.2.686 [id number] [facility] 2020-12-24 00:00:00 2020-12-24 00:00:00 Outpatient [facility]LMLC STLMLC [id number] [facility] 2020-12-17 00:00:00 2020-12-17 00:00:00 Outpatient STLMLC STLMLC [id number] [facility] 2020-12-04 00:00:00 2020-12-04 00:00:00 Outpatient [address]MLC STLMLC [id number] [facility] 2020-10-22 00:00:00 2020-10-22 00:00:00 Outpatient [facility]LMLC STLMLC [id number] [facility] 2020-10-15 00:00:00 2020-10-15 00:00:00 Outpatient [address]C STLMLC [id number] [facility] 2020-10-07 00:00:00 2020-10-07 00:00:00 Outpatient STLMLC STLMLC [id number] [facility] 2020-09-07 00:00:00 2020-09-07 00:00:00 Out[address]C [address]LMLC [id number] [facility] 2020-08-06 00:00:00 2020-08-06 00:00:00 Outpatient [address]C STLMLC [id number] [facility] 2020-07-09 00:00:00 2020-07-09 00:00:00 Outpatient [facility]LMLC STLMLC [id number] [facility] 2020-06-09 00:00:00 2020-06-09 00:00:00 Outpatient [facility]LMLC STLMLC [id number] [facility] 2020-05-21 00:00:00 2020-05-21 00:00:00 Outpatient STLMLC STLMLC [id number] [facility] 2020-05-14 00:00:00 2020-05-14 00:00:00 Outpatient [address]LMLC STLMLC [id number] [facility] 2020-04-28 00:00:00 2020-04-28 00:00:00 Outpatient [facility]LMLC STLMLC [id number] [facility] 2020-04-16 00:00:00 2020-04-16 00:00:00 Outpatient [address]LMLC STLMLC [id number] [facility] 2020-03-18 00:00:00 2020-03-18 00:00:00 Outpatient [address]LMLC STLMLC [id number] [facility] 2020-03-18 00:00:00 2020-03-18 00:00:00 Outpatient STLMLC STLMLC [id number] [facility] 2020-03-10 00:00:00 2020-03-10 00:00:00 Outpatient [address]C STLMLC [id number] [facility] 2020-01-30 04:28:00 2020-01-30 04:28:00 Outpatient Ajibade_O_A H VFP VFP [id number] [facility] 2020-01-30 04:28:00 2020-01-30 04:28:00 Outpatient Ajibade_O_A H VFP VFP [id number] [facility] 2020-01-30 04:28:00 2020-01-30 04:28:00 Outpatient Ajibade_O_A H VFP VFP [id number] [facility] 2020-01-30 04:28:00 2020-01-30 04:28:00 Outpatient Ajibade_O_A H VFP VFP [id number] [facility] 2019-07-24 07:17:00 2019-07-24 07:17:00 Outpatient Ige-Odunuga _J_AH VFP VFP [id number] [facility] 2019-07-24 07:17:00 2019-07-24 07:17:00 Outpatient Ige-Odunuga _J_AH VFP VFP [id number] [facility] 2019-07-21 18:06:23 2019-07-21 22:09:00 Emergency X LUCHO ALFARO [facility] ERT [id number] [facility] 2019-07-21 18:06:23 2019-07-21 22:09:00 Emergency Lucho Alfaro [facility] 1.2.840.114 350.1.13.10 4.2.7.2.686 [id number] [facility] 2019-07-21 18:06:23 2019-07-21 22:09:00 Emergency Lucho Alfaro [facility] 1.2.840.114 350.1.13.10 4.2.7.2.686 [id number] 2019-07-15 15:01:00 2019-07-15 15:01:00 [facility] [id number] [facility] 2019-07-09 16:46:00 2019-07-09 16:46:00 [facility] [id number] [facility] 2019-07-08 14:51:00 2019-07-08 14:51:00 [facility] [id number] [facility] 2019-07-08 08:00:00 2019-07-08 08:00:00 [facility] [id number] [facility] 2019-07-04 13:00:00 2019-07-04 13:00:00 [facility] [id number] [facility] 2019-07-02 14:32:00 2019-07-02 14:32:00 [facility] Medicine [id number] [facility] 2019-06-27 14:40:00 2019-06-27 14:40:00 [facility] [id number] [facility] 2019-06-03 11:17:00 2019-06-03 11:17:00 [facility] [id number] [facility] 2019-04-18 18:37:59 2019-04-20 05:59:59 Outside Medical Records nullFlavo r [facility] [place] [id number] Dieudonne Gordon 2019-04-11 21:30:00 2019-04-11 21:30:00 Ambulatory Pre-Reg nullFlavo r [facility] [place] [id number] Dieudonne Gordon 2019-04-09 15:20:00 2019-04-09 15:20:00 [facility] Medicine [id number] [facility] 2019-04-01 13:58:44 2019-04-03 04:59:59 Outside Medical Records nullFlavo r [facility] [place] [id number] Dieudonne Gordon 2019-03-28 18:00:00 2019-03-29 04:59:59 Outpatient nullFlavo r [facility] [place] [id number] Dieudonne Gordon 2019-02-19 14:40:00 2019-02-19 14:40:[address] [facility] [id number] [facility] 2018-12-11 11:21:00 2018-12-11 11:21:00 [facility] [id number] [facility] 2018-11-19 14:40:00 2018-11-19 14:40:00 [facility] [address] [facility] [id number] [facility] 2018-10-31 18:45:00 2018-10-31 18:45:00 Ambulatory Pre-Reg nullFlavo r [facility] [place] [id number] Dieudonne Gordon 2018-09-26 18:30:00 2018-09-27 04:59:59 Outpatient nullFlavo r [facility] [place] [id number] Dieudonne Gordon 2018-09-17 16:00:00 2018-09-17 16:00:00 [facility] [address] [facility] [id number] [facility] 2018-08-02 16:07:00 2018-08-02 16:07:00 [facility] Medicine [id number] [facility] 2018-08-02 16:05:00 2018-08-02 16:05:00 [facility] Medicine [id number] [facility] 2018-06-18 16:00:00 2018-06-18 16:00:00 [facility] [address] [facility] [id number] [facility] 2018-01-18 14:00:00 2018-01-18 14:00:00 [facility] [address] [facility] [id number] [facility] 2017-09-19 09:33:00 2017-09-19 09:33:00 [facility] [address] [facility] [id number] [facility] 2017-09-14 13:00:00 2017-09-14 13:00:00 [facility] [id number] [facility] 2017-09-12 11:05:00 2017-09-12 11:05:00 [facility] [id number] [facility] 2017-08-29 15:30:00 2017-08-29 15:30:00 Outpatient [facility] [id number] [facility] Results Test Description Test Time Test Comments Results Resul t Comments Source US SCROTUM AND CONTENTS 2019-07-06 03:19:48 No evidence for testicular torsion. No definite evidence for epididymo-orchitis. RL: [id number] AF: [id number] Ordering physician: LUCHO ALFARO INDICATION: Scrotal pain [...] torsion.No definite evidence for epididymo-orchitis. RL: [id number]: [id number] signed by Kristen Valdez MD, PhD at 07/21/2019 9:19 PM [facility] Notes Date/Time Note Provider Source 2023-12-18 16:19:38 Records Update Encounter Managed Care Team completed a Care Everywhere Search to update records. Patient was not contacted. Sarah Rosas [facility]
--- NOTE | 2024-01-26 08:30 | RAD REPORT ---
EXAM DESCRIPTION: Nohemy Single View01/26/2024 8:08 am CLINICAL HISTORY: Cough COMPARISON: January 23, 2024 FINDINGS: A calcified granuloma left lung. Calcified hilar lymph nodes. The lungs appear clear of acute infiltrate. The heart is mildly enlarged Mild prominence of the mediastinum could indicate lymphadenopathy or tortuous vessels. Follow up PA a nd lateral chest film in 1 month recommended for re-evaluation
--- NOTE | 2024-01-26 08:56 | EDPHYS ---
Physician Documentation [facility] Name: Alfredo Escobar Age: 63 yrs Sex: Male : 1960 Arrival Date: 01/26/2024 Time: 07:01 Bed 13 Private MD: ED Physician Geronimo Campbell HPI: 01/25 07:41 This 63 yrs old Male presents to ER via Ambulatory with complaints of Sore rn Throat. 07:41 63-year-old male past medical history of pancreatitis, hypertension, GERD, Crohn's rn disease, anxiety, PTSD presents to the emergency department with complaints of sore throat. The patient states that he was recently seen in this ED and that he tested positive for COVID 4 days ago. He reports he has been taking all of his prescribed medication but has been experiencing persistent cough, sore throat, and hoarseness. He additionally states that he feels a heaviness to his breathing and is concerned he may be developing pneumonia. Denies fever, chills, chest pain, weakness.. Historical: - Allergies: 07:17 Bactrim; ap3 07:17 Iodine; ap3 07:17 Keflex; ap3 07:17 Latex; ap3 07:17 Levaquin; ap3 07:17 Toradol; ap3 07:17 promethazine HCl; ap3 - PMHx: 07:17 Anxiety; Arthritis; Chronic pain; Crohn's; GERD; Hypertensive disorder; Pancreatitis; ap3 PTSD; - PSHx: 07:17 eye; hernia; ap3 - Immunization history:: Client reports receiving the 1st dose of the Covid vaccine. - Infectious Disease History:: Denies. - Social history:: Smoking status: Patient denies any tobacco usage or history of. ROS: 07:47 Constitutional: Negative for fever, chills, and weight loss, Cardiovascular: Negative rn for chest pain, palpitations, and edema, Abdomen/GI: Negative for abdominal pain, vomiting, diarrhea, and constipation, Back: Negative for injury and pain, Neuro: Negative for weakness, numbness, tingling 07:47 Eyes: Positive for itching, tearing, Negative for blurry vision, pain, photophobia, redness, 07:47 ENT: Positive for difficulty swallowing, hoarseness, sore throat, Negative for ear pain, nasal discharge, rhinorrhea, sinus congestion, 07:47 Neck: Positive for swollen nodes, tenderness, Negative for pain at rest, stiffness, swelling, 07:47 Respiratory: Positive for cough, with no reported sputum, shortness of breath, at rest. Negative for hemoptysis, sputum production, wheezing, 07:47 Back: Negative for radiated pain, 07:47 Hematologic/Lymphatic: 07:47 All other systems are negative, Exam: 07:51 Constitutional: This is a well developed, well nourished patient who is awake, alert, rn and in no acute distress. Head/Face: Normocephalic, atraumatic. Eyes: Pupils equal round and reactive to light, extra-ocular motions intact. Lids and lashes normal. Conjunctiva and sclera are non-icteric and not injected. Cornea within normal limits. Periorbital areas with no swelling, redness, or edema. ENT: Nares patent. No nasal discharge, no septal abnormalities noted. Mucous membranes moist. Cardiovascular: Regular rate and rhythm with a normal S1 and S2. No gallops, murmurs, or rubs. Normal PMI, no JVD. No pulse deficits. Respiratory: Lungs have equal breath sounds bilaterally, clear to auscultation and percussion. No rales, rhonchi or wheezes noted. No increased work of breathing, no retractions or nasal flaring. Abdomen/GI: Soft, non-tender, with normal bowel sounds. No distension or tympany. No guarding or rebound. No evidence of tenderness throughout. Neuro: Awake and alert, GCS 15, oriented to person, place, time, and situation. Cranial nerves II-XII grossly intact. Normal gait. 07:51 ENT: Posterior pharynx: Airway: normal, Tonsils: erythema, that is mild, exudate, is not appreciated, Voice: is hoarse, 07:51 Neck: External neck: swelling, that is mild, of the right submandibular area and left submandibular area, tenderness, that is mild, of the right submandibular area and left submandibular area, Lymph nodes: lymphadenopathy is appreciated, anterior cervical nodes, Vital Signs: 07:14 BP 173 / 83; Pulse 54; Resp 17; Temp 98.4(O); Pulse Ox 98% on R/A; Weight 97.52 kg; ap3 Height 5 ft. 10 in. ; 08:57 BP 137 / 80; Pulse 59; Resp 16; Pulse Ox 98% on R/A; rs5 07:14 Body Mass Index 30.85 (97.52 kg, 177.8 cm) ap3 MDM: 07:04 Patient medically screened. rn 08:55 Differential diagnosis: COVID, viral syndrome, pneumonia, bronchitis. Data reviewed: rn vital signs, nurses notes, radiologic studies, plain films, and as a result, I will discharge patient. Counseling: I had a detailed discussion with the patient and/or guardian regarding the historical points, exam findings, and any diagnostic results supporting the discharge/admit diagnosis, radiology results, the need for outpatient follow up, to return to the emergency department if symptoms worsen or persist or if there are any questions or concerns that arise at home. Special discussion: I discussed with the patient/guardian in detail that at this point there is no indication for admission to the hospital. It is understood, however, that if the symptoms persist or worsen the patient needs to return immediately for re-evaluation. ED course: Chest x-ray images negative for pneumonia per my interpretation. 01/25 07:40 Order name: XRAY Chest (1 view); Complete Time: 08:47 rn Administered Medications: No medications were administered Disposition Summary: 01/26/24 08:56 Discharge Ordered Notes: Location: Home rn Problem: new rn Symptoms: have improved rn Condition: Stable rn Diagnosis - SARS-associated coronavirus as the cause of diseases classified elsewhere rn Followup: rn - With: Private Physician - When: As needed - Reason: Recheck today's complaints, Re-evaluation by your physician Discharge Instructions: - Discharge Summary Sheet rn - COVID-19 rn - Viral Illness, Adult rn Forms: - Medication Reconciliation Form rn - Antibiotic heel turner - Prescription Opioid Use rn - Patient Portal Instructions rn - Leadership Thank You Letter rn Signatures: Dispatcher [employer] EDMS Geronimo Campbell MD MD rn Prokisch, Amanda, RN RN ap3 Corrections: (The following items were deleted from the chart) 07:41 07:41 Chest Single View+[email or web address] ordered. EDMI EDMS
--- NOTE | 2024-01-26 08:56 | ER ---
Nurse's Notes [facility] Name: Alfredo Escobar Age: 63 yrs Sex: Male : 1960 Arrival Date: 01/26/2024 Time: 07:01 Bed 13 Private MD: Diagnosis: SARS-associated coronavirus as the cause of diseases classified elsewhere Presentation: 01/25 07:14 Chief complaint: Patient states: he tested positive for COVID Monday01/22/24, and has ap3 been taking his medications as prescribed. patient wants to "make sure its not in my lungs" and reports that his throat is sore. Coronavirus screen: Client presents with at least one sign or symptom that may indicate coronavirus-19. Standard/surgical mask placed on the client. Ebola Screen: No symptoms or risks identified at this time. Initial Sepsis Screen: Does the patient meet any 2 criteria? No. Patient's initial sepsis screen is negative. Does the patient have a suspected source of infection? No. Patient's initial sepsis screen is negative. Risk Assessment: Do you want to hurt yourself or someone else? Patient reports no desire to harm self or others. Onset of symptoms is unknown. 07:14 Method Of Arrival: Ambulatory ap3 07:14 Acuity: [id number] 4 ap3 Triage Assessment: 07:17 General: Appears in no apparent distress. Behavior is calm, cooperative, appropriate ap3 for age. Pain: Complains of pain in throat. EENT: Reports pain in throat when swallowing. Neuro: Level of Consciousness is awake, alert, obeys commands, Oriented to person, place, time, situation, Appropriate for age Speech is normal. Cardiovascular: Patient's skin is warm and dry. Respiratory: Airway is patent Respiratory effort is even, unlabored, Respiratory pattern is regular, symmetrical. Historical: - Allergies: 07:17 Bactrim; ap3 07:17 Iodine; ap3 07:17 Keflex; ap3 07:17 Latex; ap3 07:17 Levaquin; ap3 07:17 Toradol; ap3 07:17 promethazine HCl; ap3 - PMHx: 07:17 Anxiety; Arthritis; Chronic pain; Crohn's; GERD; Hypertensive disorder; Pancreatitis; ap3 PTSD; - PSHx: 07:17 eye; hernia; ap3 - Immunization history:: Client reports receiving the 1st dose of the Covid vaccine. - Infectious Disease History:: Denies. - Social history:: Smoking status: Patient denies any tobacco usage or history of. Screenin:10 [facility] ED Fall Risk Assessment (Adult) History of falling in the last 3 months, rs5 including since admission No falls in past 3 months (0 pts) Confusion or Disorientation No (0 pts) Intoxicated or Sedated No (0 pts) Impaired Gait No (0 pts) Mobility Assist Device Used No (0 pt) Altered Elimination No (0 pt) Score/Fall Risk Level 0 - 2 = Low Risk Oriented to surroundings, Maintained a safe environment. 07:18 Abuse screen: Denies threats or abuse. Nutritional screening: No deficits noted. ap3 Tuberculosis screening: No symptoms or risk factors identified. Assessment: 07:07 General: Appears in no apparent distress. uncomfortable, Behavior is calm, cooperative. rs5 Pain: Complains of pain in back of throat Pain currently is 3 out of 10 on a pain scale. Quality of pain is described as aching, Is continuous. Neuro: Level of Consciousness is awake, alert, obeys commands, Oriented to person, place, time, situation. Cardiovascular: Patient's skin is warm and dry. Respiratory: Reports shortness of breath cough that is Airway is patent Respiratory effort is even, unlabored, Respiratory pattern is regular, symmetrical, GI: No signs and/or symptoms were reported involving the gastrointestinal system. : No signs and/or symptoms were reported regarding the genitourinary system. EENT: Throat redness noted to back of throat. Derm: Skin is intact, Skin is pink, warm \\T\\ dry. Musculoskeletal: Range of motion: intact in all extremities. 08:10 Reassessment: Patient and/or family updated on plan of care and expected duration. Pain rs5 level reassessed. Patient is alert, oriented x 3, equal unlabored respirations, skin warm/dry/pink. 08:57 Reassessment: Patient and/or family updated on plan of care and expected duration. Pain rs5 level reassessed. Patient is alert, oriented x 3, equal unlabored respirations, skin warm/dry/pink. Vital Signs: 07:14 BP 173 / 83; Pulse 54; Resp 17; Temp 98.4(O); Pulse Ox 98% on R/A; Weight 97.52 kg; ap3 Height 5 ft. 10 in. ; 08:57 BP 137 / 80; Pulse 59; Resp 16; Pulse Ox 98% on R/A; rs5 07:14 Body Mass Index 30.85 (97.52 kg, 177.8 cm) ap3 ED Course: 07:03 Patient arrived in ED. ra3 07:04 Geronimo Campbell MD is Attending Physician. rn 07:15 Tarik Mora, RN is Primary Nurse. rs5 07:17 Triage completed. ap3 07:18 Arm band placed on left wrist. ap3 07:18 Patient has correct armband on for positive identification. Bed in low position. Call ap3 light in reach. Provided Education on: call light education. Pulse ox on. NIBP on. 08:10 XRAY Chest (1 view) In Process Unspecified. EDMS 08:56 EKG done, by hearing aide technician. reviewed by Geronimo Campbell MD. oe 09:02 No provider procedures requiring assistance completed. Patient did not have IV access rs5 during this emergency room visit. Administered Medications: No medications were administered Medication: 08:07 VIS not applicable for this client. rs5 Outcome: 08:56 Discharge ordered by . rn 09:02 Discharged to home ambulatory, rs5 09:02 Condition: stable 09:02 Discharge instructions given to patient, family, Instructed on discharge instructions, follow up and referral plans. Demonstrated understanding of instructions, follow-up care, 09:02 Patient left the ED. rs5 Signatures: Dispatcher [employer] EDMA Geronimo Campbell MD MD rn Espinosa, [place] oe Prokisch, Amanda, RN RN [facility] Tarik Mora, RN MARY rs5 Tonya Zarate ra3 Corrections: (The following items were deleted from the chart) 08:09 07:15 No provider procedures requiring assistance completed. rs5 rs5 08:09 07:15 Missed attempt(s): 22 gauge in right antecubital area. Bleeding controlled, band rs5 aid applied, catheter tip intact. rs5 08:58 07:23 BP 141 / 83; ap3 rs5
[2024-01-26 09:41] VITALS: TEMP 98.4; O2SAT 98
[2024-01-26 09:42] VITALS: BP 137/80
== END 2024-01-26 09:02 | disposition home or self-care (01) ==
LOC: ER 07:01
DX: U07.1 COVID-19 (principal)
CPT/HCPCS: 71045; 99283

== ENCOUNTER 2024-02-07 23:30 | Emergency (ER) | payer OTHER ==
--- OUTSIDE RECORDS SUMMARY | 2024-02-07 23:35 | XMS REPORT | Continuity of Care Document ---
Author Name Unknown Address [address] [facility] [address] [place] [address] [facility] thconnect Address [address] [facility] [address] [place] [address] Care Team Providers Care Call Taker Name Role Phone Unknown, Physician Primary Care Physician UnaReese Stallings Attending Clinician Unavailable Fernanda Lockwood Attending Clinician Unavailable ROBBIN CARROLL Attending Clinician Unavailable Robbin Carroll MD Attending Clinician +[phone] Team, [facility] Maintenance Attending Roger graham Unavailable Robbin Carroll MD Attending Clinician [phone] INA MIKE Attending Clinician Briana Ina Nolan MD Attending Clinician Lab, [facility] Attending Clinician Unavailable WARD SANTOS Attending Clinician Unavailalbert CALDERAShania S Attending Clinician Doctor Unassigned, [place] Attending Clinician U navailable Ajibade_O_AH Attending Clinician Unavailable Ige-Soniunkira_J_AH Attending Clinician Unavailable LUCHO ALFARO Attending Clinician Unavailable Lucho Alfaro NP Attending Clinician Ajibade_O_AH Admitting Clinician Unavailable Ige-Jerica_Skylar_AH Admitting Clinician Unavailable LUCHO ALFARO Admitting Clinician Unavailable Payers Payer Name Policy Type Policy Number Effective Date Expirati on Date Source WELLCARE/WELLCA RE [place] [id number] 2021 00:00:00 [facility] MCR Advantage PPO [id number] [facility] C1 [id number] [facility] C1 [id number] [facility] C1 [id number] [facility] [employer] OF [place] (MEDICARE REPLACEMENT/ADV ANTAGE - HMO) [id number] 2019 00:00:00 Problems Condition Name Condition Details Condition Category Status Onset Date Resolution Date Last Treatment Date Treating Clinician Comments Source Acute midline low back pain with bilateral sciatica Acute midline low back pain with bilateral sciatica Disease Active 10-02 00:00: 00 [facility] Medicare annual wellness visit, subsequent Medicare annual wellness visit, subsequent Disease Active 10-02 00:00: 00 [facility] Chronic pain syndrome Chronic pain syndrome Disease Active 07-04 00:00: 00 [facility] Anxiety Anxiety Disease Active 07-04 00:00: 00 [facility] Crohn's disease of both small and large intestine with other complicati on Crohn's disease of both small and large intestine with other complicati on Disease Active 07-04 00:00: 00 [facility] Low HDL (under 40) Low HDL (under 40) Disease Active 07-04 00:00: 00 [facility] Nocturia Nocturia Disease Active 07-04 00:00: 00 [facility] Chronic pancreatit is Chronic pancreatit is Disease Active 2022-06 00:00: 00 [facility] Psoriatic arthritis Psoriatic arthritis Disease Active 2022-06 00:00: 00 [facility] Primary hypertensi on Primary hypertensi on Disease Active 2022-06 00:00: 00 [facility] Other specified glaucoma Other specified glaucoma Disease Active 2022-06 00:00: 00 [facility] Gastroesop hageal reflux disease without esophagiti s Gastroesop hageal reflux disease without esophagiti s Disease Active 2022-06 00:00: 00 [facility] PTSD (post-trau matic stress disorder) PTSD (post-trau matic stress disorder) Disease Active 2022-06 00:00: 00 [facility] No known active problems No known active problems Disease [facility] Memory impairment (finding) Memory impairment [...] Total retinal detachment , right eye Problem [facility] [id number] Acute upper respirator y infection Problem [facility] [id number] Abnormal blood sugar Problem [facility] [id number] Hyperglyce alex Problem [facility] [id number] Generalize d anxiety disorder Problem [facility] [id number] Diverticul osis Problem [facility] [id number] BPH loc w/o ur obs/LUTS Problem [facility] 95421178 Arthropath ic psoriasis Problem [facility] [id number] Crohn''s disease without complicati on, unspecifie d gastrointe stinal tract location Problem [facility] 82918374 Chronic fatigue Problem [facility] [id number] Cervical spondylosi s without myelopathy Problem [facility] 07293161 BMI 29.0-29.9, adult Problem [facility] [id number] Nausea Problem [facility] [id number] Lumbar sprain, initial encounter Problem [facility] [id number] Wheezing Problem [facility] [id number] Hospital discharge follow-up Problem [facility] [id number] Acute tonsilliti s, unspecifie d etiology Problem [facility] 26350438 Panic disorder with agoraphobi a Problem [facility] [id number] Asymptomat ic microscopi c hematuria Problem [facility] [id number] Constipati on, unspecifie d constipati on type Problem [facility] [id number] Carotid artery disease, unspecifie d laterality , unspecifie d type Problem [facility] 72746961 Right epididymit is Problem [facility] [id number] Prostate nodule Problem [facility] [id number] Narcolepsy without cataplexy Problem [facility] 93478191 Pelvic pain Problem [facility] 95889357 Disc disorder Problem [facility] 357251377 Perineal pain Problem [facility] 97076759 Scrotum pain Problem [facility] 657464362 BPH loc w urin obs/LUTS Problem [facility] 76287558 Chronic prostatiti s Problem [facility] Allergies, Adverse Reactions, Alerts Allergy Name Allergy Type Status Severity Reaction(s) Onset Date Inactive Date Treating Clinician Comments Source Trimetho prim Drug Allergy Active Other - See comments 07-18 00:00: 00 Other reaction( s): SWELING [facility] Vancomyc in Drug Allergy Active Other - See comments 07-18 00:00: 00 Other reaction( s): Unknown [facility] TRIMETHO PRIM DRUG INGREDI Active Other-Cmnt 07-18 00:00: 00 [facility] VANCOMYC IN DRUG INGREDI Active Other-Cmnt 07-18 00:00: 00 [facility] Sulfamet hoxazole Allergy to substanc e Active 07-18 00:00: 00 Other reaction( s): SWELING [facility] Trimetho prim Allergy to substanc e Active 07-18 00:00: 00 Other reaction( s): [facility] Vancomyc in Allergy to substanc e Active 07-18 00:00: 00 Other reaction( s): Unknown [facility] Ketorola c Allergy to substanc e Active 07-18 00:00: 00 Other reaction( s): Unknown [facility] Sulfamet hoxazole -Trimeth oprim Drug Allergy Active Rash 06-27 00:00: 00 Other reaction( s): rash [facility] PROMETHA ZINE DRUG INGREDI Active Other-Cmnt 06-27 00:00: 00 [facility] CEPHALEX IN DRUG INGREDI Active Low Rash 06-27 00:00: 00 [facility] SULFAMET HOXAZOLE -TRIMETH OPRIM DRUG Active Low Rash 06-27 00:00: 00 [facility] Cephalex in Drug Allergy Active Rash 06-27 00:00: 00 Other reaction( s): rash, SWELLING [facility] Prometha zine Drug Allergy Active Other - See comments 06-27 00:00: 00 Other reaction( s): hives, hives, SWELLING [facility] Prometha zine Allergy to substanc e Active 06-27 00:00: 00 Other reaction( s): hives, hives, SWELLING [facility] Sulfamet hoxazole -Trimeth oprim Allergy to substanc e Active Rash 06-27 00:00: 00 Other reaction( s): rash [facility] Cephalex in Allergy to substanc e Active Rash 06-27 00:00: 00 Other reaction( s): rash, SWELLING [facility] Iodides Propensi ty to adverse reaction s Active Hives 12-06 00:00: 00 [facility] Latex Propensi ty to adverse reaction s Active Rash 12-06 00:00: 00 [facility] Levoflox acin Propensi ty to adverse reaction s Active Anaphylaxis 12-06 00:00: 00 [facility] Ketorola c Trometha mine Propensi ty to adverse reaction s Active Other - See comments 12-06 00:00: 00 Pin needle pains to stomach [facility] IODIDES DRUG Active Hives 12-06 00:00: 00 [facility] LATEX DRUG INGREDI Active Rash 12-06 00:00: 00 [facility] LEVOFLOX ACIN DRUG INGREDI Active Anaphylaxis 12-06 00:00: 00 [facility] KETOROLA C TROMETHA MINE DRUG INGREDI Active Other-Cmnt 12-06 00:00: 00 [facility] Ketorola c Trometha mine Allergy to substanc e Active 12-06 00:00: 00 Other reaction( s): Other - See comments, SWELLINGP in needle pains to stomach [facility] Latex Allergy to substanc e Active Rash 12-06 00:00: 00 [facility] Iodides Allergy to substanc e Active Hives 12-06 00:00: 00 Other reaction( s): Unknown [facility] Iodides Allergy to substanc e Active Hives 12-06 00:00: 00 Other reaction( s): Unknown [facility] Levoflox acin Allergy to substanc e Active Anaphylaxis 2013-06 00:00: 00 Other reaction( s): stops breathing , SWELLING, Unknown [facility] [id number] Drug allergy Active rash [facility] 59964 Drug allergy Active stops breathing [facility] Social History Social Habit Start Date Stop Date Quantity Comments Source [facility] of Tobacco Use [facility] Alcohol intake 2023-10-03 00:00:00 2023-10-03 00:00:00 Ex-drinker (finding) [facility] History of Social function 2023-10-03 00:00:00 2023-10-03 00:00:00 [facility] Alcoholic beverage intake 2023-10-03 00:00:00 2023-10-03 00:00:00 Ex-drinker (finding) [facility] Tobacco use and exposure 2023-04-12 00:00:00 2023-04-12 00:00:00 Smokeless tobacco non-user [facility] Exposure to SARS-CoV-2 (event) 2022-05-02 00:00:00 2022-05-12 11:32:00 Not sure [facility] Sex Assigned At 1960 00:00:00 1960 00:00:00 [facility] Smoking Status Start Date Stop Date Source Tobacco smoking consumption unknown [facility] Never smoked tobacco [facility] Social History 2019-03-28 18:18:16 2019-03-28 18:18:16 [facility] Medications Ordered Medication Name Filled Medication Name Start Date Stop Date Current Medication? Ordering Clinician Indication Dosage Frequency Signature (SIG) Comments Components Source DULoxetine 30 mg capsule 10-02 00:00: 00 Yes [id number] 30mg Take 1 capsule by mouth in the morning. [facility] carvediloL 25 mg tablet 10-02 00:00: 00 Yes [id number] 25mg Take 1 tablet by mouth in the morning and 1 tablet in the evening. Take with meals. [facility] Amylase-Lip ase-Proteas e (CREON) 24,000-76,0 00 -120,000 unit capsule 10-02 00:00: 00 Yes [id number] Take 1 capsule by mouth in the morning and 1 capsule at noon and 1 capsule in the evening. Take with meals. [facility] pantoprazol e 40 mg EC tablet 10-02 00:00: 00 Yes [id number] 40mg Take 1 tablet by mouth in the morning. [facility] ondansetron 4 mg tablet 10-02 00:00: 00 Yes [id number] 4mg Take 1 tablet by mouth every 6 (six) hours as needed for Nausea and Vomiting (N/V). [facility] albuterol (VENTOLIN HFA) 90 mcg/actuati on inhaler 07-04 14:23: 05 07-04 00:00 :00 No 2{puff} Inhale 2 Puffs every 6 (six) hours as needed for Wheezing or Shortness of Breath. [facility] albuterol 90 mcg/actuati on inhaler 07-04 14:22: 58 07-04 00:00 :00 No 2{puff} Inhale 2 Puffs every 6 (six) hours as needed for Wheezing or Shortness of Breath. [facility] Amylase-Lip ase-Proteas e (CREON) 24,000-76,0 00 -120,000 unit capsule 07-04 14:22: 27 07-04 00:00 :00 No [id number] Take 1 capsule by mouth in the morning and 1 capsule at noon and 1 capsule in the evening. Take with meals. [facility] carvediloL 25 mg tablet 07-04 00:00: 00 10-02 00:00 :00 No [id number] 25mg Take 1 tablet by mouth in the morning and 1 tablet in the evening. Take with meals. [facility] DULoxetine 30 mg capsule 07-04 00:00: 00 10-02 00:00 :00 No [id number] 30mg Take 1 capsule by mouth in the morning. [facility] pantoprazol e 40 mg EC tablet 07-04 00:00: 00 10-02 00:00 :00 No [id number] 40mg Take 1 tablet by mouth in the morning. [facility] ondansetron 4 mg tablet 07-04 00:00: 00 10-02 00:00 :00 No [id number] 4mg Take 1 tablet by mouth every 6 (six) hours as needed for Nausea and Vomiting (N/V). [facility] Amylase-Lip ase-Proteas e (CREON) 24,000-76,0 00 -120,000 unit capsule 07-04 00:00: 00 10-02 00:00 :00 No [id number] Take 1 capsule by mouth in the morning and 1 capsule at noon and 1 capsule in the evening. Take with meals. [facility] carvedilol (COREG) 25 mg tablet 2022-06 15:04: 39 04-12 00:00 :00 No 25mg Take 1 tablet by mouth in the morning and 1 tablet in the evening. Take with meals. [facility] predniSONE 20 mg tablet 2022-06 14:43: 26 04-12 00:00 :00 No 20mg Take 1 tablet by mouth in the morning. [facility] Amylase-Lip ase-Proteas e (CREON) 24,000-76,0 00 -120,000 unit capsule 2022-06 14:26: 48 Yes [id number] Take 1 capsule by mouth in the morning and 1 capsule at noon and 1 capsule in the evening. Take with meals. [facility] albuterol 90 mcg/actuati on inhaler 2022-06 14:26: 48 Yes 2{puff} Inhale 2 Puffs every 6 (six) hours as needed for Wheezing or Shortness of Breath. [facility] blood sugar diagnostic (ONE TOUCH TEST MISC) 2022-06 14:26: 48 Yes One touch ultra blue test strip [facility] HYDROcodone -acetaminop hen (NORCO) 7.5-325 mg per tablet 2022-06 14:22: 42 04-12 00:00 :00 No 1{tbl} Take 1 Tab by mouth every 6 (six) hours as needed for Pain. [facility] LIPASE/PROT EASE/AMYLAS E (CREON 10 ORAL) 2022-06 14:22: 42 04-12 00:00 :00 No Take by mouth. [facility] DULoxetine 30 mg capsule 2022-06 00:00: 00 07-04 00:00 :00 No [id number] 30mg Take 1 capsule by mouth in the morning. [facility] carvediloL 25 mg tablet 2022-06 00:00: 00 07-04 00:00 :00 No [id number] 25mg Take 1 tablet by mouth in the morning and 1 tablet in the evening. Take with meals. [facility] ondansetron 4 mg tablet 02-14 00:00: 00 07-04 00:00 :00 No 4mg Take 1 tablet by mouth every 6 (six) hours as needed for Nausea and Vomiting (N/V). [facility] clonazePAM 1 mg tablet 02-14 00:00: 00 04-12 00:00 :00 No 1mg Take 1 tablet by mouth 2 (two) times daily as needed. [facility] gabapentin 300 mg capsule 02-07 00:00: 00 Yes TAKE 1 CAPSULE TWICE A DAY FOR 28 DAY(S) [facility] pantoprazol e 40 mg EC tablet 12-10 00:00: 00 07-04 00:00 :00 No 40mg Take 1 tablet by mouth in the morning. [facility] clonazePAM 0.5 MG clonazePAM 0.5 MG 3- 00:00: 00 No QD clonazePAM 0.5 [...] clonazePAM 1 MG clonazePAM 1 MG 1-0 00:00: 00 No BID clonazePAM 1 MG Flomax 0.4 MG Flomax 0.4 MG 12-24 00:00: 00 07-21 00:00 :00 No [...] Zofran 4 MG Zofran 4 MG 0 14 00:00: 00 No BID Zofran 4 MG Zofran 4 MG Zofran 4 MG 0 -14 00:00: 00 No BID Zofran 4 MG Zofran 4 MG Zofran 4 MG 0 5-14 00:00: 00 No BID Zofran 4 MG Zofran 4 MG Zofran 4 MG 0 14 00:00: 00 No BID Zofran 4 MG Zofran 4 MG Zofran 4 MG 0 -14 00:00: 00 No BID Zofran 4 MG acyclovir 5 % ointment 07-21 00:00: 00 04-12 00:00 :00 No [id number] Apply to area(s) 5 (five) times daily. [facility] valsartan 40 mg oral tablet 2018-06 19:12: 00 Yes 0 Refill(s) Dieudonne Gordon pantoprazol e 40 mg oral enteric coated tablet 09-26 19:00: 00 Yes 40 mg = 1 tab, PO, Daily, # 30 tab, 0 Refill(s) Dieudonne Gordon Acetaminoph en 325 MG / Hydrocodone Bitartrate 10 MG Oral Tablet [Polo 10/325] 09-26 19:00: 00 Yes 1 tab, PO, QID, 0 Refill(s) Dieudonne Gordon Clonazepam 2 MG Oral Tablet [Klonopin] 09-26 19:00: 00 Yes 2 mg = 1 tab, PO, BID, # 60 tab, 0 Refill(s) Dieudonne Gordon Aspirin 81 Aspirin 81 09-14 00:00: 00 Yes Esthela Dunham 1 tablet [facility] Aspirin 81 81 MG Aspirin 81 [...] 00:00: 00 Yes Esthela Dunham [address] [facility] Albuterol Sulfate HFA 108 (90 Base) [...] 6 (six) hours as needed for Pain. [facility] LIPASE/PROT EASE/AMYLAS E (CREON 10 ORAL) 12-06 06:42: 52 Yes Take by mouth. [facility] carvedilol (COREG) 25 mg tablet 12-06 06:42: 52 Yes 25mg Take 25 mg by mouth 2 (two) times daily with meals. [facility] metroNIDAZO LE (FLAGYL) 500 mg tablet 12-06 00:00: 00 04-12 00:00 :00 No 500mg Take 1 Tab by mouth 2 (two) times daily. [facility] proMETHazin e (PHENERGAN) 25 mg tablet 12-06 00:00: 00 04-12 00:00 :00 No 25mg Take 1 Tab by mouth every 6 (six) hours as needed for Nausea and Vomiting (N/V). [facility] Clonazepam Clonazepam Yes Esthela Dunham TAKE 1 TABLET BY MOUTH TWICE A DAY [facility] Carvedilol Carvedilol Yes Esthela Dunham take 1 tablet by mouth twice a day [facility] Famotidine Famotidine Yes Esthela [place] 1 tablet at bedtime [facility] Protonix Protonix Yes Esthela [place] 1 tablet [facility] Dicyclomine HCl Dicyclomine HCl Yes Esthela [place] 1 tablet [facility] Ventolin HFA Ventolin HFA Yes Esthela [place] 2 puffs [facility] Valsartan Valsartan Yes Esthela [place] 1 tablet [facility] Hydrocodone -Acetaminop hen Hydrocodone -Acetaminop hen Yes Esthela Dunham (Schedule II Drug) TK 1 T PO TID [facility] Dicyclomine HCl 20 MG Dicyclomine HCl 20 MG No 1{table t} QID Dicyclomin e HCl 20 MG OneTouch Ultra - OneTouch Ultra - No OneTouch Ultra - Lactulose 10 GM/15ML Lactulose 10 GM/15ML No 15{ml} Lactulose 10 GM/15ML OneTouch Delica Plus Cexxkj56D - OneTouch Delica Plus Unajjs27B - No OneTouch Delica Plus Ngkuvr13Z - Famotidine 20 MG Famotidine 20 MG [...] 15{ml} Lactulose 10 GM/15ML OneTouch Delica Plus Jdynkq03T - OneTouch Delica Plus Lxsowa12P - No OneTouch Delica Plus Kqyoqy82D - Protonix 40 MG Protonix 40 MG No 1{table t} QD Protonix 40 MG OneTouch Ultra - OneTouch Ultra - No OneTouch Ultra - Ventolin HFA 108 (90 Base) MCG/ACT Ventolin HFA 108 (90 Base) MCG/ACT No 2{puffs } Ventolin HFA 108 (90 Base) MCG/ACT Protonix 40 MG Protonix 40 MG No 1{table t} QD Protonix 40 MG OneTouch Delica Plus Uookhx34O - OneTouch Delica Plus Tyildx02E - No OneTouch Delica Plus Vxgdku32U - Albuterol Sulfate HFA 108 (90 Base) [...] QD Protonix 40 MG OneTouch Delica Plus Zbfkit38P - OneTouch Delica Plus Yxqpla79V - No OneTouch Delica Plus Solwej22N - Albuterol Sulfate HFA 108 (90 Base) [...] QD Protonix 40 MG OneTouch Delica Plus Vfslek57G - OneTouch Delica Plus Mozocg37Z - No OneTouch Delica Plus Vgnmgf02N - Famotidine 20 MG Famotidine 20 MG [...] QD Protonix 40 MG OneTouch Delica Plus Yqfnse93U - OneTouch Delica Plus Dfuzcx19U - No OneTouch Delica Plus Naziql11V - Famotidine 20 MG Famotidine 20 MG [...] QD Protonix 40 MG OneTouch Delica Plus Ldzkzm58H - OneTouch Delica Plus Dqqwbs19Z - No OneTouch Delica Plus Jrybgn08Q - Famotidine 20 MG Famotidine 20 MG [...] QD Protonix 40 MG OneTouch Delica Plus Udwayq25C - OneTouch Delica Plus Mjbzyb89R - No OneTouch Delica Plus Uprnao04V - Ventolin HFA 108 (90 Base) MCG/ACT Ventolin HFA 108 (90 Base) MCG/ACT No 2{puffs } Ventolin HFA 108 (90 Base) MCG/ACT Carvedilol 25 MG Carvedilol 25 MG No 1{table t_with_ food} BID Carvedilol 25 MG OneTouch Ultra - OneTouch Ultra - No OneTouch Ultra - OneTouch Delica Plus Nkjjxj01U - OneTouch Delica Plus Gbwqjp62L - No OneTouch Delica Plus Hlevio89M - Protonix 40 MG Protonix 40 MG No 1{table t} QD Protonix 40 MG Ventolin HFA 108 (90 Base) MCG/ACT Ventolin HFA 108 (90 Base) MCG/ACT No 2{puffs } Ventolin HFA 108 (90 Base) MCG/ACT Carvedilol 25 MG Carvedilol 25 MG No 1{table t_with_ food} BID Carvedilol 25 MG OneTouch Ultra - OneTouch Ultra - No OneTouch Ultra - OneTouch Delica Plus Fjzqtn76S - OneTouch Delica Plus Xelqzm43N - No OneTouch Delica Plus Ulmkrm04V - Protonix 40 MG Protonix 40 MG No 1{table t} QD Protonix 40 MG Ventolin HFA 108 (90 Base) MCG/ACT Ventolin HFA 108 (90 Base) MCG/ACT No 2{puffs } Ventolin HFA 108 (90 Base) MCG/ACT Carvedilol 25 MG Carvedilol 25 MG No 1{table t_with_ food} BID Carvedilol 25 MG OneTouch Ultra - OneTouch Ultra - No OneTouch Ultra - OneTouch Delica Plus Erzzir27R - OneTouch Delica Plus Rakuci70V - No OneTouch Delica Plus Hprngq77A - Protonix 40 MG Protonix 40 MG [...] No OneTouch Ultra - OneTouch Delica Plus Iggzfg24C - OneTouch Delica Plus Yuksis59D - No OneTouch Delica Plus Fafcqp90T - HYDROcodone -Acetaminop hen 10-325 MG HYDROcodone [...] No OneTouch Ultra - OneTouch Delica Plus Bqnakr89G - OneTouch Delica Plus Flgbnd33Z - No OneTouch Delica Plus Vnsoku58F - Albuterol Sulfate HFA 108 (90 Base) [...] No OneTouch Ultra - OneTouch Delica Plus Ojgsuv66N - OneTouch Delica Plus Cccunv74U - No OneTouch Delica Plus Frvvkb29E - Albuterol Sulfate HFA 108 (90 Base) MCG/ACT Albuterol Sulfate HFA 108 (90 Base) MCG/ACT No Albuterol Sulfate HFA 108 (90 Base) MCG/ACT HYDROcodone -Acetaminop hen 10-325 MG HYDROcodone -Acetaminop hen 10-325 MG No HYDROcodon e-Acetamin ophen 10-325 MG Protonix 40 MG Protonix 40 MG No 1{table t} QD Protonix 40 MG Creon Creon 12-23 00:00 :00 No Esthela [place] take by mouth 1 capsule 3 times a day as directed [facility] Vital Signs Vital Name Observation Time Observation Value Comments Nazario stoner Systolic blood pressure 2023-10-03 21:46:00 142 mm[Hg] [facility] Diastolic blood pressure 2023-10-03 21:46:00 92 mm[Hg] [facility] Heart rate 2023-10-03 21:46:00 86 /min [facility] Oxygen saturation in Arterial blood by Pulse oximetry 2023-10-03 21:46:00 96 /min [facility] Systolic blood pressure 2023-10-03 21:03:00 142 mm[Hg] [facility] Diastolic blood pressure 2023-10-03 21:03:00 92 mm[Hg] [facility] Heart rate 2023-10-03 21:03:00 86 /min [facility] Body height 2023-10-03 21:03:00 177.8 cm [facility] Body weight 2023-10-03 21:03:00 99.202 kg [facility] BMI 2023-10-03 21:03:00 31.38 kg/m2 [facility] Systolic blood pressure 2023-07-04 20:00:00 142 mm[Hg] [facility] Diastolic blood pressure 2023-07-04 20:00:00 84 mm[Hg] [facility] Heart rate 2023-07-04 19:59:00 58 /min [facility] Body temperature 2023-07-04 19:59:00 36.11 Jing [facility] Respiratory rate 2023-07-04 19:59:00 17 /min [facility] Body height 2023-07-04 19:59:00 175.3 cm [facility] Body weight 2023-07-04 19:59:00 99.973 kg [facility] BMI 2023-07-04 19:59:00 32.55 kg/m2 [facility] Oxygen saturation in Arterial blood by Pulse oximetry 2023-07-04 19:59:00 97 /min [facility] Systolic blood pressure 2023-04-12 20:19:00 149 mm[Hg] [facility] Diastolic blood pressure 2023-04-12 20:19:00 90 mm[Hg] [facility] Heart rate 2023-04-12 18:55:00 55 /min [facility] Respiratory rate 2023-04-12 18:55:00 18 /min [facility] Body height 2023-04-12 18:55:00 177.8 cm [facility] Body weight 2023-04-12 18:55:00 99.202 kg [facility] BMI 2023-04-12 18:55:00 31.38 kg/m2 [facility] Oxygen saturation in Arterial blood by Pulse oximetry 2023-04-12 18:55:00 98 /min [facility] height 2022-08-30 15:20:00 70 [in_i] Commo n [facility] weight 2022-08-30 15:20:00 216.2 [lb_av] Co mmon [facility] temperature 2022-08-30 15:20:00 97.2 [degF] Com mon [facility] bmi 2022-08-30 15:20:00 31.02 kg/m2 Comm on [facility] oximetry 2022-08-30 15:20:00 96 % Commo n [facility] respiratory rate 2022-08-30 15:20:00 17 /min [facility] blood pressure systolic 2022-08-30 15:20:00 134 mm[Hg] [facility] blood pressure diastolic 2022-08-30 15:20:00 80 mm[Hg] [facility] height 2022-04-11 15:40:00 70 [in_i] Commo n [facility] weight 2022-04-11 15:40:00 206.9 [lb_av] Co mmon [facility] temperature 2022-04-11 15:40:00 97.6 [degF] Com mon [facility] bmi 2022-04-11 15:40:00 29.68 kg/m2 Comm on [facility] oximetry 2022-04-11 15:40:00 98 % Commo n [facility] respiratory rate 2022-04-11 15:40:00 18 /min [facility] blood pressure systolic 2022-04-11 15:40:00 138 mm[Hg] [facility] blood pressure diastolic 2022-04-11 15:40:00 72 mm[Hg] [facility] height 2022-02-09 13:50:00 70 [in_i] Commo n [facility] weight 2022-02-09 13:50:00 207 [lb_av] Comm on [facility] temperature 2022-02-09 13:50:00 97.9 [degF] Com mon [facility] bmi 2022-02-09 13:50:00 29.7 kg/m2 Commo n [facility] oximetry 2022-02-09 13:50:00 96 % Commo n [facility] respiratory rate 2022-02-09 13:50:00 18 /min [facility] blood pressure systolic 2022-02-09 13:50:00 132 mm[Hg] [facility] blood pressure diastolic 2022-02-09 13:50:00 70 mm[Hg] [facility] height 2021-12-07 09:20:00 70 [in_i] Commo n [facility] weight 2021-12-07 09:20:00 206.0 [lb_av] Co mmon [facility] temperature 2021-12-07 09:20:00 98.2 [degF] Com mon [facility] bmi 2021-12-07 09:20:00 29.55 kg/m2 Comm on [facility] oximetry 2021-12-07 09:20:00 99 % Commo n [facility] respiratory rate 2021-12-07 09:20:00 18 /min [facility] blood pressure systolic 2021-12-07 09:20:00 137 mm[Hg] [facility] blood pressure diastolic 2021-12-07 09:20:00 70 mm[Hg] [facility] height 2021-02-23 14:30:00 70 [in_i] Commo n [facility] weight 2021-02-23 14:30:00 190.0 [lb_av] Co mmon [facility] temperature 2021-02-23 14:30:00 98.3 [degF] Com mon [facility] bmi 2021-02-23 14:30:00 27.26 kg/m2 Comm on [facility] blood pressure systolic 2021-02-23 14:30:00 138 mm[Hg] Common [facility] blood pressure diastolic 2021-02-23 14:30:00 74 mm[Hg] [facility] Systolic blood pressure 2020-12-28 20:04:00 155 mm[Hg] [facility] Diastolic blood pressure 2020-12-28 20:04:00 82 mm[Hg] [facility] Heart rate 2020-12-28 20:04:00 61 /min [facility] Body temperature 2020-12-28 20:04:00 36.67 Jing [facility] Respiratory rate 2020-12-28 20:04:00 16 /min [facility] Body height 2020-12-28 20:04:00 177.8 cm [facility] Body weight 2020-12-28 20:04:00 86.183 kg [facility] BMI 2020-12-28 20:04:00 27.26 kg/m2 [facility] Oxygen saturation in Arterial blood by Pulse oximetry 2020-12-28 20:04:00 97 /min [facility] Systolic blood pressure 2019-07-22 04:00:00 147 mm[Hg] [facility] Diastolic blood pressure 2019-07-22 04:00:00 87 mm[Hg] [facility] Heart rate 2019-07-22 04:00:00 54 /min [facility] Respiratory rate 2019-07-22 04:00:00 20 /min [facility] Oxygen saturation in Arterial blood by Pulse oximetry 2019-07-22 04:00:00 99 /min [facility] Body temperature 2019-07-21 23:21:00 37 Jing [facility] Body weight 2019-07-21 23:21:00 86.183 kg [facility] BMI 2019-07-21 23:21:00 27.26 kg/m2 [facility] Systolic blood pressure 2019-07-22 04:00:00 147 mm[Hg] [facility] Diastolic blood pressure 2019-07-22 04:00:00 87 mm[Hg] [facility] Heart rate 2019-07-22 04:00:00 54 /min [facility] Respiratory rate 2019-07-22 04:00:00 20 /min [facility] Oxygen saturation in Arterial blood by Pulse oximetry 2019-07-22 04:00:00 99 /min [facility] Body temperature 2019-07-21 23:21:00 37 Jing [facility] Body weight 2019-07-21 23:21:00 86.183 kg [facility] BMI 2019-07-21 23:21:00 27.26 kg/m2 [facility] Systolic (mm Hg) 2019-03-28 18:17:00 [facility] Diastolic (mm Hg) 2019-03-28 18:17:00 [facility] Heart Rate 2019-03-28 18:17:00 [facility] Respitory Rate 2019-03-28 18:17:00 [facility] Height 2019-03-28 18:17:00 172.72 cm [facility] Weight 2019-03-28 18:17:00 [facility] BMI Calculated 2019-03-28 18:17:00 [facility] BMI Calculated 2018-09-26 18:51:00 [facility] Weight 2018-09-26 18:51:00 [facility] Height 2018-09-26 18:51:00 172.72 cm [facility] Heart Rate 2018-09-26 18:51:00 [facility] Respitory Rate 2018-09-26 18:51:00 [facility] Systolic (mm Hg) 2018-09-26 18:51:00 [facility] Diastolic (mm Hg) 2018-09-26 18:51:00 [facility] Procedures Procedure Date / Time Performed Performing Clinicia n Source NOTICE OF PRIVACY PRACTICES 2020-12-28 19:58:01 Doctor Unassigned, [place] [facility] CONSENT/REFUSAL FOR DIAGNOSIS AND TREATMENT 2020-12-28 19:57:10 Doctor Unassigned, [place] [facility] US SCROTUM AND CONTENTS 2019-07-22 03:08:48 Lucho Alfaro [facility] NOTICE OF PRIVACY PRACTICES 2019-07-21 23:12:14 Doctor Unassigned, [place] [facility] CONSENT/REFUSAL FOR DIAGNOSIS AND TREATMENT 2019-07-21 23:07:41 Doctor Unassigned, [place] [facility] Encounters Start Date/Time End Date/Time Encounter Type Admission Type Attending [facility] Care Facility Care Department Encounter ID Source 2023-01-11 16:27:00 [facility] [id number] [facility] 2022-09-12 13:14:00 [facility] [id number] [facility] 2022-08-26 08:40:00 [facility] [id number] [facility] 2022-08-17 14:47:00 Outpatient [facility] [id number] [facility] 2022-06-02 08:30:58 Outpatient [facility] [id number] [facility] 2022-05-24 13:55:01 [facility] [id number] [facility] 2022-05-23 10:20:01 [facility] [id number] [facility] 2022-05-04 14:32:40 Outpatient [facility] [id number] [facility] 2022-04-07 13:30:01 Outpatient [facility] [id number] [facility] 2022-04-04 10:22:48 Outpatient [facility] [id number] [facility] 2022-03-31 12:03:45 Outpatient [facility] [id number] [facility] 2022-03-30 15:15:47 Outpatient [facility] [id number] [facility] 2022-02-09 13:48:01 Outpatient Jenkins, [facility] ST[facility] STLC [id number] [facility] 2021-12-08 11:45:00 Outpatient Jenkins, [facility] STLC [id number] [facility] 2021-12-07 09:25:00 Outpatient Jenkins, [facility] STLC [id number] [facility] 2021-12-03 09:35:01 Outpatient Jenkins, [facility] ST[facility] STLC [id number] [facility] 2021-06-30 13:05:56 Outpatient Jenkins, [facility] ST[facility] STLMLC [id number] [facility] 2021-06-30 12:47:29 Outpatient Jenkins, [facility] ST[facility] STLMLC [id number] [facility] 2021-06-30 12:36:27 Outpatient Jenkins, [facility] ST[facility] STLMLC [id number] [facility] 2021-06-30 12:35:26 Outpatient Jenkins, [facility] ST[facility] STLMLC [id number] [facility] 2021-06-30 12:28:53 Outpatient Jenkins, [facility] ST[facility] STLMLC [id number] [facility] 2021-06-30 12:26:11 Outpatient Jenkins, [facility] ST[facility] STLMLC [id number] [facility] 2021-06-30 12:12:23 Out[facility] [id number] [facility] 2021-06-30 12:04:45 [facility] [id number] [facility] 2021-06-30 11:55:15 [facility] [id number] [facility] 2021-06-30 11:52:56 [facility] [id number] [facility] 2021-06-30 11:52:32 [facility] [id number] [facility] 2021-06-30 11:02:50 Outpatient Fernanda Lockwood [facility] [id number] [facility] 2021-06-30 11:02:33 Outpatient Fernanda Lockwood [facility] [id number] [facility] 2024-01-26 00:00:00 2024-01-26 09:02:45 Telephone Robbin Carroll [facility] 1.2.840.114 350.1.13.10 4.2.7.2.686 [id number] [facility] 2023-12-18 00:00:00 2023-12-18 16:23:17 Telephone Team, [facility] 1.2.840.114 350.1.13.10 4.2.7.2.686 [id number] [facility] 2023-10-03 14:00:00 2023-10-03 16:58:23 Office Visit Robbin Carroll [facility] 1.2.840.114 350.1.13.10 4.2.7.2.686 [id number] [facility] 2023-10-03 16:00:00 2023-10-03 16:38:39 Outpatient R ROBBIN CARROLL [facility] [id number] [facility] 2023-10-03 16:00:00 2023-10-03 16:38:39 Office Visit Robbin Carroll [facility] 1.2.840.114 350.1.13.10 4.2.7.2.686 [id number] [facility] 2023-07-04 14:00:00 2023-07-04 14:41:34 Outpatient R ROBBIN CARROLL [facility] [id number] [facility] 2023-07-04 14:00:00 2023-07-04 14:41:34 Office Visit Robbin Carroll [facility] 1..840.114 350.1.13.10 4.2.7.2.686 [id number] [facility] 2023-05-26 14:20:00 2023-05-26 14:20:00 Outpatient R INA MIKE [facility] [id number] [facility] 2023-04-26 00:00:00 2023-04-26 00:00:00 Refill Ina Mike [facility] 1..840.114 350.1.13.10 4.2.7.2.686 [id number] [facility] 2023-04-12 15:15:00 2023-04-12 15:42:32 Record Center Coordinator Visit Lab, Ina Charles [facility] 1..840.114 350.1.13.10 4.2.7.2.686 [id number] [facility] 2023-04-12 15:15:00 2023-04-12 15:15:00 Outpatient R INA MIKE [facility] [id number] [facility] 2023-04-12 14:00:00 2023-04-12 15:06:59 Office Visit Ina Mike [facility] 1.2.840.114 350.1.13.10 4.2.7.2.686 [id number] [facility] 2022-12-20 00:00:00 2022-12-20 00:00:00 (TEL) STLMLC STLMLC [id number] [facility] 2022-11-03 00:00:00 2022-11-03 00:00:00 (TEL) STLMLC STLMLC [id number] [facility] 2022-09-02 00:00:00 2022-09-02 00:00:00 (TEL) STLMLC STLMLC [id number] [facility] 2022-09-02 00:00:00 2022-09-02 00:00:00 (TEL) STLMLC STLMLC [id number] [facility] 2022-08-30 00:00:00 2022-08-30 00:00:00 OFFICE VISIT ESTAB PT LEVEL 4 STLMLC STLMLC [id number] [facility] 2022-08-17 00:00:00 2022-08-17 00:00:00 (TEL) STLMLC STLMLC [id number] [facility] 2022-06-16 13:00:00 2022-06-16 13:00:00 Outpatient WARD SANTOS [facility] [id number] [facility] 2022-05-12 11:30:00 2022-05-12 13:38:22 Office Visit Ward Santos [facility] [address] 1.2.840.114 350.1.13.58 9.2.7.2.686 [id number] [facility] 2022-04-19 00:00:00 2022-04-19 00:00:00 (TEL) STLMLC STLMLC [id number] [facility] 2022-04-14 10:30:00 2022-04-14 12:17:23 Outpatient WARD SANTOS [facility] [id number] [facility] 2022-04-11 00:00:00 2022-04-11 00:00:00 OFFICE VISIT ESTAB PT LEVEL 4 STLMLC STLMLC [id number] [facility] 2022-04-04 10:30:00 2022-04-04 16:18:07 [facility] [address] 1.2.840.114 350.1.13.58 9.2.7.2.686 [id number] [facility] 2022-03-25 11:00:00 2022-03-25 11:00:00 Outpatient [facility] [id number] [facility] 2022-03-24 00:00:00 2022-03-24 00:00:00 (TEL) STLMLC STLMLC [id number] [facility] 2022-03-23 00:00:00 2022-03-23 00:00:00 (TEL) STLMLC STLMLC [id number] [facility] 2022-03-23 00:00:00 2022-03-23 00:00:00 (TEL) STLMLC STLMLC [id number] [facility] 2022-03-23 00:00:00 2022-03-23 00:00:00 (TEL) STLMLC STLMLC [id number] [facility] 2022-02-09 00:00:00 2022-02-09 00:00:00 OFFICE VISIT ESTAB PT LEVEL 4 STLMLC STLMLC [id number] [facility] 2021-12-07 00:00:00 2021-12-07 00:00:00 OFFICE VISIT ESTAB PT LEVEL 4 STLMLC STLMLC [id number] [facility] 2021-03-24 00:00:00 2021-03-24 00:00:00 (TEL) STLMLC STLMLC [id number] [facility] 2021-02-23 00:00:00 2021-02-23 00:00:00 (TELEAUD) AUDIO TELEMEDICI NE STLMLC STLMLC [id number] [facility] 2021-02-22 00:00:00 2021-02-22 00:00:00 (TEL) STLMLC STLMLC [id number] [facility] 2020-12-28 15:10:00 2020-12-28 16:55:00 Emergency Shania [facility] 1.2.840.114 350.1.13.10 4.2.7.2.686 [id number] [facility] 2020-12-28 14:57:00 2020-12-28 14:57:00 Emergency X [facility] ERT [id number] [facility] 2020-12-28 00:00:00 2020-12-28 00:00:00 Orders Only Doctor Unassigned, [place] [facility] 1.2.840.114 350.1.13.10 4.2.7.2.686 [id number] [facility] 2020-12-24 00:00:00 2020-12-24 00:00:00 Outpatient STLMLC STLMLC [id number] [facility] 2020-12-17 00:00:00 2020-12-17 00:00:00 Outpatient STLMLC STLMLC [id number] [facility] 2020-12-04 00:00:00 2020-12-04 00:00:00 Outpatient STLMLC STLMLC [id number] [facility] 2020-10-22 00:00:00 2020-10-22 00:00:00 Outpatient STLMLC STLMLC [id number] [facility] 2020-10-15 00:00:00 2020-10-15 00:00:00 Outpatient STLMLC STLMLC [id number] [facility] 2020-10-07 00:00:00 2020-10-07 00:00:00 Outpatient STLMLC STLMLC [id number] [facility] 2020-09-07 00:00:00 2020-09-07 00:00:00 Outpatient STLMLC STLMLC [id number] [facility] 2020-08-06 00:00:00 2020-08-06 00:00:00 Outpatient STLMLC STLMLC [id number] [facility] 2020-07-09 00:00:00 2020-07-09 00:00:00 Outpatient STLMLC STLMLC [id number] [facility] 2020-06-09 00:00:00 2020-06-09 00:00:00 Outpatient STLMLC STLMLC [id number] [facility] 2020-05-21 00:00:00 2020-05-21 00:00:00 Outpatient STLMLC STLMLC [id number] [facility] 2020-05-14 00:00:00 2020-05-14 00:00:00 Outpatient STLMLC STLMLC [id number] [facility] 2020-04-28 00:00:00 2020-04-28 00:00:00 Outpatient STLMLC STLMLC [id number] [facility] 2020-04-16 00:00:00 2020-04-16 00:00:00 Outpatient STLMLC STLMLC [id number] [facility] 2020-03-18 00:00:00 2020-03-18 00:00:00 Outpatient STLMLC STLMLC [id number] [facility] 2020-03-18 00:00:00 2020-03-18 00:00:00 Outpatient STLMLC STLMLC [id number] [facility] 2020-03-10 00:00:00 2020-03-10 00:00:00 Outpatient STLMLC STLMLC [id number] [facility] 2020-01-30 04:28:00 2020-01-30 04:28:00 Outpatient Ajibade_O_A H VFP VFP [id number] [facility] 2020-01-30 04:28:00 2020-01-30 04:28:00 Outpatient Ajibade_O_A H VFP VFP [id number] [facility] 2020-01-30 04:28:00 2020-01-30 04:28:00 Outpatient Ajibade_O_A H VFP VFP [id number] [facility] 2020-01-30 04:28:00 2020-01-30 04:28:00 Outpatient Ajibade_O_A H VFP VFP [id number] [facility] 2019-07-24 07:17:00 2019-07-24 07:17:00 Outpatient Ige-Odunuga _J_AH VFP VFP [id number] [facility] 2019-07-24 07:17:00 2019-07-24 07:17:00 Outpatient Ige-[place] _J_AH VFP VFP [id number] [facility] 2019-07-21 18:06:23 2019-07-21 22:09:00 Emergency X LUCHO ALFARO [facility] ERT [id number] [facility] 2019-07-21 18:06:23 2019-07-21 22:09:00 Emergency Lucho Alfaro [facility] 1.2.840.114 350.1.13.10 4.2.7.2.686 [id number] [facility] 2019-07-21 18:06:23 2019-07-21 22:09:00 Emergency Lucho Alfaro [facility] 1.2.840.114 350.1.13.10 4.2.7.2.686 [id number] 2019-07-15 15:01:00 2019-07-15 15:01:00 [facility] [id number] [facility] 2019-07-09 16:46:00 2019-07-09 16:46:00 [facility] [id number] [facility] 2019-07-08 14:51:00 2019-07-08 14:51:00 [facility] [id number] [facility] 2019-07-08 08:00:00 2019-07-08 08:00:00 [facility] [id number] [facility] 2019-07-04 13:00:00 2019-07-04 13:00:00 [facility] [id number] [facility] 2019-07-02 14:32:00 2019-07-02 14:32:00 [facility] [id number] [facility] 2019-06-27 14:40:00 2019-06-27 14:40:00 [facility] [id number] [facility] 2019-06-03 11:17:00 2019-06-03 11:17:00 [facility] [id number] [facility] 2019-04-18 18:37:59 2019-04-20 05:59:59 Outside Medical Records nullFlavo r [facility]lee [id number] Dieudonne Gordon 2019-04-11 21:30:00 2019-04-11 21:30:00 Ambulatory Pre-Reg nullFlavo r [facility] [id number] Dieudonne Gordon 2019-04-09 15:20:00 2019-04-09 15:20:00 [facility] [id number] [facility] 2019-04-01 13:58:44 2019-04-03 04:59:59 Outside Medical Records nullFlavo r [facility] [id number] Dieudonne Gordon 2019-03-28 18:00:00 2019-03-29 04:59:59 Outpatient nullFlavo r [facility] [id number] Dieudonne Gordon 2019-02-19 14:40:00 2019-02-19 14:40:[address] [facility] [facility] [address] [facility] [id number] [facility] 2018-12-11 11:21:00 2018-12-11 11:21:00 [facility] [id number] [facility] 2018-11-19 14:40:00 2018-11-19 14:40:00 [facility] [id number] [facility] 2018-10-31 18:45:00 2018-10-31 18:45:00 Ambulatory Pre-Reg nullFlavo r [facility] [id number] Dieudonne Gordon 2018-09-26 18:30:00 2018-09-27 04:59:59 Outpatient nullFlavo r [facility] [id number] Dieudonne Gordon 2018-09-17 16:00:00 2018-09-17 16:00:[address] [facility] [address] [facility] [id number] [facility] 2018-08-02 16:07:00 2018-08-02 16:07:00 [facility] [id number] [facility] 2018-08-02 16:05:00 2018-08-02 16:05:00 [facility] [id number] [facility] 2018-06-18 16:00:00 2018-06-18 16:00:00 [facility] [address] [facility] [id number] [facility] 2018-01-18 14:00:00 2018-01-18 14:00:00 [facility] [id number] [facility] 2017-09-19 09:33:00 2017-09-19 09:33:00 [facility] [id number] [facility] 2017-09-14 13:00:00 2017-09-14 13:00:00 [facility] [id number] [facility] 2017-09-12 11:05:00 2017-09-12 11:05:00 [facility] [id number] [facility] 2017-08-29 15:30:00 2017-08-29 15:30:00 [facility] [id number] [facility] Results Test Description Test Time Test Comments Results Resul t Comments Source US SCROTUM AND CONTENTS 2019-07-06 03:19:48 No evidence for testicular torsion. No definite evidence for epididymo-orchitis. RL: [id number] AFC: [id number] Ordering physician: LUCHO ALFARO INDICATION: Scrotal pain [...] torsion.No definite evidence for epididymo-orchitis. RL: [id number]: [id number] signed by Kristen Valdez MD, PhD at 07/21/2019 9:19 PM [facility] Notes Date/Time Note Provider Source 2024-01-26 09:01:18 Images from the original note were not included. Scanned in folder and placed in provider basket for review. [facility] 16:19:38 Records Update Encounter Managed Care Team completed a Care Everywhere Search to update records. Patient was not contacted. Sarah Rosas [facility]
[2024-02-08] MEDS ORDERED: IPRATROPIUM BROM 0.5MG/2.5ML ONE (00:29)
[2024-02-08] MEDS ORDERED: METHYLPREDNISOLONE 125 MG INJ ONE (00:29)
[2024-02-08] MEDS ORDERED: LEVALBUTEROL 1.25 MG/3 ML NEB ONE (00:29)
[2024-02-08] MEDS ORDERED: FAMOTIDINE 20 MG/2 ML VIAL IV ONE (00:30)
[2024-02-08] MEDS ORDERED: predniSONE 20 MG TAB ONE (00:30)
[2024-02-08 00:32] LABS: Specific Gravity 1.014 (1.005-1.030); Urine Bilirubin NEGATIVE (Negative); Urine Blood Negative (Negative); Urine Clarity Clear (Clear); Urine Color Light-Yellow (Yellow); Urine Glucose NEGATIVE (Negative); Urine Ketones NEGATIVE (Negative); Urine Microscopic Reflex YN NO UMIC; Urine Nitrite NEGATIVE (Negative); Urine Protein NEGATIVE (Negative); Urine Urobilinogen Normal (Normal); Urine pH 5.5 (5.0-7.0)
[2024-02-08 00:48] LABS: D-Dimer 0.352 FEUug/mL (0-0.500); PT Prothrombin Time 12.5 SECONDS (9.4-12.5); Protime INR 1.12
[2024-02-08 00:50] LABS: ALT/SGPT 30 U/L (16-61); AST/SGOT 18 U/L (15-37); Albumin 3.1 g/dL (3.4-5.0); Albumin/Globulin Ratio 0.9 (1.1-1.8); Alkaline Phosphatase 66 U/L (45-117); Anion Gap 9.1 mEq/L (5.0-15.0); BUN Blood Urea Nitrogen 13 mg/dL (7-18); Bicarbonate 28 mEq/L (21-32); Bilirubin Total 0.3 mg/dL (0.2-1.0); Globulin 3.4 g/dL (2.3-3.5); Glomerular Filtration Rate 89 ml/min (=/>90); Glucose Level 122 mg/dL (74-106); Magnesium 1.9 mg/dL (1.6-2.4); NT PRO-BNP 78 pg/mL (<125); Potassium 4.1 mEq/L (3.5-5.1); Protein, Total 6.5 g/dL (6.4-8.2); Sodium Level 142 mEq/L (136-145); Troponin High Sensitivity 9.2 pg/mL (<58.9)
[2024-02-08 00:52] LABS: Absolute Eosinophils 0.1 K/uL (0-0.5); Absolute Monocytes 0.7 K/uL (0.1-1.3); Absolute Neutrophil 3.6 K/uL (1.8-8.0); Basophils % 0.4 % (0-1.3); Eosinophils % 1.6 % (0-4.4); Hematocrit 41.5 % (39.6-49.0); Hemoglobin 13.8 g/dL (13.6-17.9); Lymphocytes % 40.6 % (15.3-44.8); MCH 30.4 pg (27.0-35.0); MCHC 33.3 g/dL (32.0-36.0); MCV 91.2 fL (80-100); MPV 8.5 fL (7.6-11.3); Monocytes % 8.8 % (3.3-12.3); Neutrophils % 48.6 % (41.7-73.7); Platelets 235 thou/uL (152-406); RBC Red Blood Cell Count 4.55 M/uL (4.33-5.43)
[2024-02-08 01:10] LABS: Bilirubin Direct < 0.2 mg/dL (0-0.2); Bilirubin Indirect, Calculated 0.1 mg/dL (0.2-0.8)
[2024-02-08] MEDS ORDERED: AZITHROMYCIN 250 MG TAB ONE (01:10)
--- NOTE | 2024-02-08 01:13 | ER ---
Nurse's Notes [facility] Name: Alfredo Escobar Age: 63 yrs Sex: Male : 1960 Arrival Date: 02/07/2024 Time: 23:30 Bed 13 Private MD: Diagnosis: Cough;Acute upper respiratory infection, unspecified;Acute bronchospasm Presentation: 02/06 23:47 Chief complaint: Patient states: I was diagnosed with covid about 13 days ago. I am jb4 still having a persistent cough, and now there is blood when I cough. My b/p was high so I took 37.5 mg of my carvedilol instead of my normal 25mg and it went down to 110/65 and I was concerned. Coronavirus screen: Client reports previous positive COVID test result. Date of collection: January 25, 2024. Ebola Screen: No symptoms or risks identified at this time. Initial Sepsis Screen: Does the patient meet any 2 criteria? No. Patient's initial sepsis screen is negative. Does the patient have a suspected source of infection? No. Patient's initial sepsis screen is negative. Risk Assessment: Do you want to hurt yourself or someone else? Patient reports no desire to harm self or others. Onset of symptoms was February 07, 2024. Transition of care: patient was not received from another setting of care. 23:47 Method Of Arrival: Ambulatory jb4 23:47 Acuity: BUCKY 3 jb4 Triage Assessment: 23:50 Respiratory: Onset: The symptoms/episode began/occurred yesterday, the patient has mild rg5 shortness of breath. Historical: - Allergies: 23:50 Bactrim; jb4 23:50 Iodine; jb4 23:50 Keflex; jb4 23:50 Latex; jb4 23:50 Levaquin; jb4 23:50 promethazine HCl; jb4 23:50 Toradol; jb4 - PMHx: 23:50 Chronic pain; Hypertensive disorder; GERD; Crohn's; Arthritis; Anxiety; Pancreatitis; jb4 PTSD; - PSHx: 23:50 hernia; eye; jb4 - Immunization history:: Adult Immunizations up to date. - Infectious Disease History:: Denies. - Social history:: Smoking status: Patient denies any tobacco usage or history of. Screenin:50 [facility] ED Fall Risk Assessment (Adult) History of falling in the last 3 months, rg5 including since admission No falls in past 3 months (0 pts) Confusion or Disorientation No (0 pts) Intoxicated or Sedated No (0 pts) Impaired Gait No (0 pts) Mobility Assist Device Used No (0 pt) Altered Elimination No (0 pt) Score/Fall Risk Level 0 - 2 = Low Risk Oriented to surroundings, Maintained a safe environment, Hourly rounding (assess needs \T\ fall precautionary measures) done. Abuse screen: Denies threats or abuse. Nutritional screening: No deficits noted. Tuberculosis screening: No symptoms or risk factors identified. Assessment: 23:50 General: Appears in no apparent distress. Behavior is calm, cooperative, appropriate rg5 for age. 23:50 Pain: Denies pain. Neuro: Level of Consciousness is awake, alert, obeys commands, rg5 Oriented to person, place, time. Cardiovascular: Denies chest pain, Heart tones S1 S2 Capillary refill < 3 seconds Patient's skin is warm and dry. Rhythm is sinus rhythm. Respiratory: Reports pain with cough since yesterday Airway is patent Trachea midline Respiratory effort is even, unlabored, Respiratory pattern is regular, symmetrical, Breath sounds are clear bilaterally. GI: No signs and/or symptoms were reported involving the gastrointestinal system. Abdomen is round non-distended. : No signs and/or symptoms were reported regarding the genitourinary system. EENT: No deficits noted. Derm: Skin is intact, Skin is dry, Skin is normal, Skin temperature is warm. Musculoskeletal: Range of motion: intact in all extremities. 02/07 00:45 Reassessment: Patient and/or family updated on plan of care and expected duration. Pain rg5 level reassessed. Patient denies pain at this time. Patient states feeling better. Patient states symptoms have improved. Vital Signs: 02/06 23:47 BP 153 / 87; Pulse 60; Resp 16; Temp 98.9(O); Pulse Ox 97% on R/A; Weight 95.25 kg (R); jb4 Height 5 ft. 10 in. (R); 23:50 BP 147 / 88; Pulse 63; Resp 18; Temp 98.8; Pulse Ox 97% on R/A; rg5 02/07 00:49 BP 139 / 81; Pulse 60; Resp 18; Pulse Ox 97% ; rg5 02/06 23:47 Body Mass Index 30.13 (95.25 kg, 177.8 cm) jb4 [place] Coma Score: 02/06 23:50 Eye Response: spontaneous(4). Motor Response: obeys commands(6). Verbal Response: rg5 oriented(5). Total: 15. ED Course: 23:33 Patient arrived in ED. jj6 23:43 Pal Ferreira MD is Attending Physician. [facility] 23:47 Hector Ramirez RN is Primary Nurse. rg5 23:50 Triage completed. jb4 23:50 Arm band placed on right wrist. jb4 23:50 Patient has correct armband on for positive identification. Client placed on continuous rg5 cardiac and pulse oximetry monitoring. NIBP monitoring applied. usability architect on. Pulse ox on. Door closed. Noise minimized. 23:50 Inserted saline lock: 20 gauge in right antecubital area, using aseptic technique. rg5 Blood collected. Flushed with 10 mL NS. 02/07 00:00 XRAY Chest (1 view) In Process Unspecified. EDMS 00:49 No provider procedures requiring assistance completed. rg5 01:11 Ricky Juarez MD is Referral Physician. [facility] 01:41 Provided Education on: post er care. rg5 01:41 IV discontinued, bleeding controlled, Pressure dressing applied. rg5 Administered Medications: 00:19 Not Given (Patient Refused): ns 0.9% 1000 ml IV at 125 ml/hr continuous rg5 00:34 Not Given (Patient Refused): [id number] mg PO once rg5 00:34 Not Given (Patient Refused): tmqxbvqmpo32 mg IVP once; dilute with 10 mL 0.9% NaCl; rg5 give over 2 minutes 00:35 Not Given (Patient Refused): [id number] mg IVP once rg5 00:35 Drug: Levalbuterol Inhalation 2.5 mg Inhalation once Route: Inhalation; rg5 00:35 Drug: Ipratropium Inhalation Aerosol 0.5 mg Inhalation once Route: Inhalation; rg5 00:41 Not Given (Patient Refused): Singulair 10 mg PO once rg5 00:45 Drug: AZITHromycin PO 500 mg PO once Route: PO; rg5 01:44 Follow up: Response: No adverse reaction rg5 01:25 Drug: Levalbuterol Inhalation 1.25 mg Inhalation once Route: Inhalation; rg5 Medication: 02/06 23:50 VIS not applicable for this client. rg5 Outcome: 02/07 01:12 Discharge ordered by . mack 01:41 Discharged to home ambulatory, rgYordan 01:41 Condition: stable 01:41 Discharge instructions given to patient, Instructed on discharge instructions, follow up and referral plans. Demonstrated understanding of instructions, follow-up care, medications, Prescriptions given X 4, 01:43 Patient left the ED. rg5 Signatures: Dispatcher [employer] EDAK Pal Ferreira MD MD cha Bryson, James, RN RN jb4 Karo Callejas jj6 Hector Ramirez, RN RN rg5
--- NOTE | 2024-02-08 01:13 | EDPHYS ---
Physician Documentation [facility] Name: Alfredo Escobar Age: 63 yrs Sex: Male : 1960 Arrival Date: 02/07/2024 Time: 23:30 Bed 13 Private MD: ED Physician Pal Ferreira HPI: 02/07 00:30 This 63 yrs old Male presents to ER via Ambulatory with complaints of mack Shortness Of Breath. Historical: - Allergies: 02/06 23:50 Bactrim; jb4 23:50 Iodine; jb4 23:50 Keflex; jb4 23:50 Latex; jb4 23:50 Levaquin; jb4 23:50 promethazine HCl; jb4 23:50 Toradol; jb4 - PMHx: 23:50 Chronic pain; Hypertensive disorder; GERD; Crohn's; Arthritis; Anxiety; Pancreatitis; jb4 PTSD; - PSHx: 23:50 hernia; eye; jb4 - Immunization history:: Adult Immunizations up to date. - Infectious Disease History:: Denies. - Social history:: Smoking status: Patient denies any tobacco usage or history of. ROS: 02/07 00:32 Constitutional: Negative for fever, chills, and weight loss, Eyes: Negative for injury, mack pain, redness, and discharge, ENT: Negative for injury, pain, and discharge, Neck: Negative for injury, pain, and swelling, Cardiovascular: Negative for chest pain, palpitations, and edema, Abdomen/GI: Negative for abdominal pain, nausea, vomiting, diarrhea, and constipation, Back: Negative for injury and pain, : Negative for injury, bleeding, discharge, and swelling, MS/Extremity: Negative for injury and deformity, Skin: Negative for injury, rash, and discoloration, Neuro: Negative for headache, weakness, numbness, tingling, and seizure, Psych: Negative for depression, anxiety, suicide ideation, homicidal ideation, and hallucinations, Allergy/Immunology: Negative for hives, rash, and allergies, Endocrine: Negative for neck swelling, polydipsia, polyuria, polyphagia, and marked weight changes, Hematologic/Lymphatic: Negative for swollen nodes, abnormal bleeding, and unusual bruising, Respiratory: Positive for cough, shortness of breath, wheezing, expiratory, Exam: 00:32 Constitutional: This is a well developed, well nourished patient who is awake, alert, mack and in no acute distress. Head/Face: Normocephalic, atraumatic. Eyes: Pupils equal round and reactive to light, extra-ocular motions intact. Lids and lashes normal. Conjunctiva and sclera are non-icteric and not injected. Cornea within normal limits. Periorbital areas with no swelling, redness, or edema. ENT: Nares patent. No nasal discharge, no septal abnormalities noted. Tympanic membranes are normal and external auditory canals are clear. Oropharynx with no redness, swelling, or masses, exudates, or evidence of obstruction, uvula midline. Mucous membranes moist. Neck: Trachea midline, no thyromegaly or masses palpated, and no cervical lymphadenopathy. Supple, full range of motion without nuchal rigidity, or vertebral point tenderness. No Meningismus. Chest/axilla: Normal chest wall appearance and motion. Nontender with no deformity. No lesions are appreciated. Cardiovascular: Regular rate and rhythm with a normal S1 and S2. No gallops, murmurs, or rubs. Normal PMI, no JVD. No pulse deficits. Abdomen/GI: Soft, non-tender, with normal bowel sounds. No distension or tympany. No guarding or rebound. No evidence of tenderness throughout. Back: No spinal tenderness. No costovertebral tenderness. Full range of motion. Male : Normal genitalia with no discharge or lesions. Skin: Warm, dry with normal turgor. Normal color with no rashes, no lesions, and no evidence of cellulitis. MS/ Extremity: Pulses equal, no cyanosis. Neurovascular intact. Full, normal range of motion. Neuro: Awake and alert, GCS 15, oriented to person, place, time, and situation. Cranial nerves II-XII grossly intact. Motor strength 5/5 in all extremities. Sensory grossly intact. Cerebellar exam normal. Normal gait. Psych: Awake, alert, with orientation to person, place and time. Behavior, mood, and affect are within normal limits. 00:32 ECG was reviewed by the Attending Physician. 00:32 Respiratory: the patient does not display signs of respiratory distress, Respirations: normal, no acute changes, Breath sounds: rales, are not appreciated, bronchial sounds, that are mild, are scattered, decreased breath sounds, that are mild, are scattered, rhonchi, that are mild, are scattered, stridor, is not appreciated, + upper airway congestion. wheezing: expiratory that is mild, Respiratory rate: 16 Vital Signs: 02/06 23:47 BP 153 / 87; Pulse 60; Resp 16; Temp 98.9(O); Pulse Ox 97% on R/A; Weight 95.25 kg (R); jb4 Height 5 ft. 10 in. (R); 23:50 BP 147 / 88; Pulse 63; Resp 18; Temp 98.8; Pulse Ox 97% on R/A; rg5 02/07 00:49 BP 139 / 81; Pulse 60; Resp 18; Pulse Ox 97% ; rg5 02/06 23:47 Body Mass Index 30.13 (95.25 kg, 177.8 cm) jb4 [place] Coma Score: 02/06 23:50 Eye Response: spontaneous(4). Motor Response: obeys commands(6). Verbal Response: rg5 oriented(5). Total: 15. MDM: 23:43 Patient medically screened. [facility] 02/07 00:34 Differential diagnosis: Bronchitis CHF exacerbation, Chronic Obstructive Pulmonary mack Disease pneumonia, Pneumothorax Psychogenic pulmonary edema, Pulmonary Embolism reactive airway disease, Sepsis Unstable Angina. Antibiotic administration: The patient is discharged and will get outpatient antibiotics, Zithromax. Immunization status: Influenza vaccine: within last 5 years. Data reviewed: vital signs, nurses notes, lab test result(s), EKG, radiologic studies, plain films. Consideration of Admission/Observation Escalation of care including admission/observation considered. I considered the following discharge prescriptions or medication management in the emergency department Medications were administered in the Emergency Department. See MAR. Independent interpretation of the following test(s) in the Emergency Department EKG: See my EKG interpretation above. Test considered but Not performed: Ultrasound no 2 d echo. Historians other than the Patient: pt well informed. 02/06 23:44 Order name: Basic Metabolic Panel; Complete Time: : [facility] 02/06 23:44 Order name: CBC with Diff; Complete Time: 01: [facility] 02/06 23:44 Order name: LFT's; Complete Time: 01: [facility] 02/06 23:44 Order name: Magnesium; Complete Time: : [facility] 02/06 23:44 Order name: NT PRO-BNP; Complete Time: : [facility] 02/06 23:44 Order name: PT-INR; Complete Time: 01: [facility] 02/06 23:44 Order name: Troponin HS; Complete Time: 01: [facility] 02/06 23:44 Order name: D-Dimer; Complete Time: 01: [facility] 02/06 23:44 Order name: Urinalysis w/ reflexes; Complete Time: 01: [facility] 02/06 23:44 Order name: XRAY Chest (1 view) [facility] 02/06 23:44 Order name: Cardiac monitoring; Complete Time: 00: [facility] 02/06 23:44 Order name: EKG - Nurse/Tech; Complete Time: 00:09 [facility] 02/06 23:44 Order name: IV Saline Lock; Complete Time: 00:18 [facility] 02/06 23:44 Order name: Labs collected and sent; Complete Time: 00:19 [facility] 02/06 23:44 Order name: O2 Per Protocol; Complete Time: 00:19 [facility] 02/06 23:44 Order name: O2 Sat Monitoring; Complete Time: 00:19 [facility] EC:32 Rate is 63 beats/min. Rhythm is regular. QRS Gile is Normal. OR interval is normal. QRS mack interval is normal. QT interval is normal. No Q waves. T waves are Normal. No ST changes noted. Clinical impression: Normal ECG and No evidence of ischemia. Interpreted by me. Reviewed by me. Administered Medications: 00:19 Not Given (Patient Refused): ns 0.9% 1000 ml IV at 125 ml/hr continuous rg5 00:34 Not Given (Patient Refused): [id number] mg PO once rg5 00:34 Not Given (Patient Refused): allobkaeij30 mg IVP once; dilute with 10 mL 0.9% NaCl; rg5 give over 2 minutes 00:35 Not Given (Patient Refused): rlvkzrwssqrpiickdv776 mg IVP once rg5 00:35 Drug: Levalbuterol Inhalation 2.5 mg Inhalation once Route: Inhalation; rg5 00:35 Drug: Ipratropium Inhalation Aerosol 0.5 mg Inhalation once Route: Inhalation; rg5 00:41 Not Given (Patient Refused): Singulair 10 mg PO once rg5 00:45 Drug: AZITHromycin PO 500 mg PO once Route: PO; rg5 01:44 Follow up: Response: No adverse reaction rg5 01:25 Drug: Levalbuterol Inhalation 1.25 mg Inhalation once Route: Inhalation; rg5 Disposition Summary: 02/08/24 01:12 Discharge Ordered Notes: Location: Home [facility] Problem: new [facility] Symptoms: have improved mack Condition: Stable mack Diagnosis - Cough mack - Acute upper respiratory infection, unspecified mack - Acute bronchospasm mack Followup: mack - With: Private Physician - When: 2 - 3 days - Reason: Recheck today's complaints, Continuance of care, Re-evaluation by your physician Followup: [facility] - With: Ricky Juarez MD - When: 2 - 3 days - Reason: Recheck today's complaints, Re-evaluation by your physician Discharge Instructions: - Discharge Summary Sheet mack - Asthma, Adult mack - Bronchospasm, Adult mack - Upper Respiratory Infection, Adult mack - Cool Mist Vaporizer mack - Upper Respiratory Infection, Adult, Zqag-af-Rxdy mack - Asthma, Adult, Takj-sm-Xgff mack - Cough, Adult, Jtuv-ky-Ysmc mack - Bronchospasm, Adult, Cggr-yu-Lyah mack - Cough, Adult [facility] Forms: - Medication Reconciliation Form [facility] - Antibiotic Education [facility] - Prescription Opioid Use [facility] - Patient Portal Instructions [facility] - Leadership Thank You Letter [facility] Prescriptions: - albuterol sulfate 90 mcg/actuation Inhalation HFA Aerosol Inhaler - inhale 2 inhalation INHALATION route every 4-6 hours as needed for shortness of mack breath or wheezing; 1 unit; Refills: 0, Product Selection Permitted - Singulair 10 mg Oral Tablet - take 1 tablet ORAL route At bedtime; 20 tablet; Refills: 0, Product Selection [facility] Permitted - Tessalon Perles 100 mg Oral capsule - take 2 capsule ORAL route every 8 hours As needed; 30 capsule; Refills: 0, [facility] Product Selection Permitted - Albuterol Sulfate 2.5 mg /3 mL (0.083 %) Inhalation Solution for Nebulization - inhale 1 unit NEBULIZATION route every 8 hours As needed; 30 unit; Refills: 0, [facility] Product Selection Permitted - Zithromax Z-Mg 250 mg Oral Tablet - take 1 tablet ORAL route as directed for 5 days Day 1 - take two (2) tablets mack one time. Day 2, 3, 4 , 5 take one (1) tablet once daily.; 6 tablet; Refills: 0, Product Selection Permitted - Prednisone 20 mg Oral Tablet - take 2 tablets ORAL route once daily for 5 days; 10 tablet; Refills: 0, Product mack Selection Permitted Signatures: Dispatcher [employer] EDMS Pal Ferreira MD MD cha Bryson, James, RN RN jb4 Hector Ramirez, RN RN rg5 Corrections: (The following items were deleted from the chart) 02/06 23:45 23:45 BASIC METABOLIC PANEL+C.LAB.BRZ ordered. EDMS EDMS 23:45 23:45 CBC+H.LAB.BRZ ordered. EDMS EDMS 23:45 23:45 HEPATIC FUNCTION+C.LAB.BRZ ordered. EDMS EDMS 23:45 23:45 MAGNESIUM+C.LAB.BRZ ordered. EDMS EDMS 23:45 23:45 PROBNP+C.LAB.BRZ ordered. EDMS EDMS 23:45 23:45 PROTIME (+INR)+COAG.LAB.BRZ ordered. EDMS EDMS 23:45 23:45 Troponin High Sensitivity+C.LAB.BRZ ordered. EDMS EDMS 23:45 23:45 Influenza Screen (A \T\ B)+BA.LAB.BRZ ordered. EDMS EDMS 23:45 23:45 SARS-COV-2 Antigen Rapid+I.LAB.BRZ ordered. EDMS EDMS 23:45 23:45 D-DIMER+COAG.LAB.BRZ ordered. EDMS EDMS 23:45 23:45 Urinalysis+U.LAB.BRZ ordered. EDMS EDMS 23:45 23:45 Chest Single View+RAD.RAD.BRZ ordered. EDMS EDMS
[2024-02-08 01:50] VITALS: O2SAT 97
[2024-02-08 01:51] VITALS: TEMP 98.8
[2024-02-08 01:52] VITALS: BP 139/81
--- NOTE | 2024-02-08 11:32 | RAD REPORT ---
EXAM DESCRIPTION: RAD - Chest Single View - 02/07/2024 11:58 pm CLINICAL HISTORY: Dyspnea. TECHNIQUE: Frontal view of the chest. COMPARISON: XR Chest 01/23/2024. FINDINGS: Lungs: Unremarkable. No consolidation. Pleural space: Unremarkable. No pneumothorax. Heart: Cardiac silhouette is mildly enlarged, stable, in part accentuated by portable technique. Mediastinum: Unremarkable. Normal mediastinal contour. Bones/joints: Unremarkable. No acute fracture. Lymph nodes: Calcified left hilar lymph nodes. Left midlung zone calcified granulomata. IMPRESSION: No acute disease. Electronically signed by: Alex Busby MD 02/08/2024 12:56 AM CDT RP Due to temporary technical issues with the PACS/Fluency reporting system, reports are being signed by the in house radiologist without review as a courtesy to ensure prompt reporting. The interpreting r adiologist is fully responsible for the content of the report.
--- NOTE | 2024-02-09 14:09 | EKG ---
Test Date: 2024-02-08 Test Time: 00:03:32 Sports Management Intern: ROLAND MEASUREMENT RESULTS: Intervals: Rate: 63 ME: 156 QRSD: 82 QT: 412 QTc: 421 [place]: P: 28 ME: 156 QRS: 2 T: 8 INTERPRETIVE STATEMENTS: Normal sinus rhythm Normal ECG Compared to ECG 01/23/2024 06:04:06 No significant changes Electronically Signed On 02-09-24 14:07:08 CDT by Janes Woo
== END 2024-02-08 01:43 | disposition home or self-care (01) ==
LOC: ER 23:30
DX: J06.9 Acute upper respiratory infection, unspecified (principal); J98.01 Acute bronchospasm; I10 Essential (primary) hypertension
CPT/HCPCS: 93005; 85025; 80048; 36415; 83735; 85610; 85379; 80076; 81003; 84484; 83880; 71045; 99285; J7512; J7614; J7644; J2919

== ENCOUNTER 2024-02-17 20:48 | Inpatient (IN) | payer OTHER ==
--- OUTSIDE RECORDS SUMMARY | 2024-02-17 20:54 | XMS REPORT | Continuity of Care Document ---
Author Name Unknown Address [address] [facility] [address] [place] [address] [facility] Address [address] [facility] [address] [place] [address] Care Team Providers Care Chemist Steroids Name Role Phone Unknown, Physician Primary Care Physician Reese Rod Attending Clinician Unavailable Fernanda Lockwood Attending Clinician Unavailable ROBBIN CARROLL Attending Clinician Unavailable Robbin Carroll MD Attending Clinician [phone] Team, [facility] Maintenance Attending Roger graham Unavailable Robbin Carroll MD Attending Clinician [phone] INA MIKE Attending Clinician Briana Ina Nolan MD Attending Clinician Lab, Ang - Db Attending Clinician Unavailable WARD SANTOS Attending Clinician Unavaila julio Butcherey WERNERShania S Attending Clinician [phone] Doctor Unassigned, [place] Attending Clinician U navailable Ajibade_O_AH Attending Clinician Unavailable Ige-Odunuga_J_AH Attending Clinician Unavailable Lucho Alfaro NP Attending Clinician LUCHO ALFARO Attending Clinician Unavailable Ajibade_O_AH Admitting Clinician Unavailable Ige-Odunkira_J_AH Admitting Clinician Unavailable LUCHO ALFARO Admitting Clinician Unavailable Payers Payer Name Policy Type Policy Number Effective Date Expirati on Date Source WELLCARE/WELLCA RE [place] [id number] 2021 00:00:00 [facility] MCR Advantage PPO [id number] [facility] WellCare MCR C1 [id number] [facility] Wellcare C1 [id number] [facility] Wellcare C1 [id number] [facility] WELLCARE OF [place] (MEDICARE REPLACEMENT/ADV ANTAGE - HMO) [id number] 2019 00:00:00 Problems Condition Name Condition Details Condition Category Status Onset Date Resolution Date Last Treatment Date Treating Clinician Comments Source Acute midline low back pain with bilateral sciatica Acute midline low back pain with bilateral sciatica Disease Active 10-02 00:00: 00 [facility] Medicare annual wellness visit, subsequent Medicare annual wellness visit, subsequent Disease Active 10-02 00:00: 00 [facility] Chronic pain syndrome Chronic pain syndrome Disease Active 07-04 00:00: 00 [facility] Anxiety Anxiety Disease Active 07-04 00:00: 00 [facility] Crohn's disease of both small and large intestine with other complicati on Crohn's disease of both small and large intestine with other complicati on Disease Active 07-04 00:00: 00 [facility] Low HDL (under 40) Low HDL (under 40) Disease Active 07-04 00:00: 00 [facility] Nocturia Nocturia Disease Active 07-04 00:00: 00 [facility] Chronic pancreatit is Chronic pancreatit is Disease Active 2022-06 00:00: 00 [facility] Psoriatic arthritis Psoriatic arthritis Disease Active 2022-06 00:00: 00 [facility] Primary hypertensi on Primary hypertensi on Disease Active 2022-06 00:00: 00 [facility] Other specified glaucoma Other specified glaucoma Disease Active 2022-06 00:00: 00 [facility] Gastroesop hageal reflux disease without esophagiti s Gastroesop hageal reflux disease without esophagiti s Disease Active 2022-06 00:00: 00 [facility] PTSD (post-trau matic stress disorder) PTSD (post-trau matic stress disorder) Disease Active 2022-06 00:00: 00 [facility] No known active problems No known active problems Disease [facility] Total retinal detachment Total retinal detachment , right eye Problem [facility] [id number] Acute upper respirator y infection Problem [facility] [id number] Abnormal blood sugar Problem [facility] [id number] Hyperglyce alex Problem [facility] [id number] Generalize d anxiety disorder Problem [facility] [id number] Diverticul osis Problem [facility] [id number] BPH loc w/o ur obs/LUTS Problem [facility] 80593243 Arthropath ic psoriasis Problem [facility] [id number] Crohn''s disease without complicati on, unspecifie d gastrointe stinal tract location Problem [facility] 91154763 Chronic fatigue Problem [facility] [id number] Cervical spondylosi s without myelopathy Problem [facility] 98479611 BMI 29.0-29.9, adult Problem [facility] [id number] Nausea Problem [facility] [id number] Lumbar sprain, initial encounter Problem [facility] [id number] Wheezing Problem [facility] [id number] Hospital discharge follow-up Problem [facility] [id number] Acute tonsilliti s, unspecifie d etiology Problem [facility] [id number] Panic disorder with agoraphobi a Problem [facility] [id number] Asymptomat ic microscopi c hematuria Problem [facility] [id number] Constipati on, unspecifie d constipati on type Problem [facility] [id number] Carotid artery disease, unspecifie d laterality , unspecifie d type Problem [facility] 87301200 Right epididymit is Problem [facility] [id number] 79243 Prostate nodule Problem [facility] [id number] 9104 Narcolepsy without cataplexy Problem [facility] 91916918 Pelvic pain Problem [facility] 38099304 Disc disorder Problem [facility] 275022201 Perineal pain Problem [facility] 41367568 Scrotum pain Problem [facility] [id number] BPH loc w urin obs/LUTS Problem [facility] 72963590 Chronic prostatiti s Problem [facility] Memory impairment (finding) Memory impairment (finding) [...] Date Inactive Date Treating Clinician Comments Source TRIMETHO PRIM DRUG INGREDI Active Other-Cmnt 2- 00:00: 00 [facility] VANCOMYC IN DRUG INGREDI Active Other-Cmnt 07-18 00:00: 00 [facility] Sulfamet hoxazole Allergy to substanc e Active 07-18 00:00: 00 Other reaction( s): SWELING [facility] Trimetho prim Allergy to substanc e Active 2- 00:00: 00 Other reaction( s): SWELING [facility] Vancomyc in Allergy to substanc e Active 2- 00:00: 00 Other reaction( s): Unknown [facility] Ketorola c Allergy to substanc e Active 07-18 00:00: 00 Other reaction( s): Unknown [facility] Trimetho prim Drug Allergy Active Other - See comments 2- 00:00: 00 Other reaction( s): SWELING [facility] Vancomyc in Drug Allergy Active Other - See comments - 00:00: 00 Other reaction( s): Unknown [facility] Sulfamet hoxazole -Trimeth oprim Drug Allergy Active Rash 0 - 00:00: 00 Other reaction( s): rash [facility] PROMETHA ZINE DRUG INGREDI Active Other-Cmnt 06-27 00:00: 00 [facility] CEPHALEX IN DRUG INGREDI Active Low Rash 0 - 00:00: 00 [facility] SULFAMET HOXAZOLE -TRIMETH OPRIM DRUG Active Low Rash 06-27 00:00: 00 [facility] Cephalex in Drug Allergy Active Rash 06-27 00:00: 00 Other reaction( s): rash, SWELLING [facility] Prometha zine Drug Allergy Active Other - See comments 06-27 00:00: 00 Other reaction( s): hives, hives, SWELLING [facility] Prometha zine Allergy to substanc e Active 06-27 00:00: 00 Other reaction( s): hives, hives, SWELLING [facility] Sulfamet hoxazole -Trimeth oprim Allergy to substanc e Active Rash 06-27 00:00: 00 Other reaction( s): rash [facility] Cephalex in Allergy to substanc e Active Rash 06-27 00:00: 00 Other reaction( s): rash, SWELLING [facility] Iodides Propensi ty to adverse reaction s Active Hives 12-06 00:00: 00 [facility] Latex Propensi ty to adverse reaction s Active Rash 12-06 00:00: 00 [facility] Levoflox acin Propensi ty to adverse reaction s Active Anaphylaxis 12-06 00:00: 00 [facility] Ketorola c Trometha mine Propensi ty to adverse reaction s Active Other - See comments 12-06 00:00: 00 Pin needle pains to stomach [facility] IODIDES DRUG Active Hives 12-06 00:00: 00 [facility] LATEX DRUG INGREDI Active Rash 12-06 00:00: 00 [facility] LEVOFLOX ACIN DRUG INGREDI Active Anaphylaxis 12-06 00:00: 00 [facility] KETOROLA C TROMETHA MINE DRUG INGREDI Active Other-Cmnt 12-06 00:00: 00 [facility] Ketorola c Trometha mine Allergy to substanc e Active 12-06 00:00: 00 Other reaction( s): Other - See comments, SWELLINGP in needle pains to stomach [facility] Latex Allergy to substanc e Active Rash 12-06 00:00: 00 [facility] Iodides Allergy to substanc e Active Hives 12-06 00:00: 00 Other reaction( s): Unknown [facility] Iodides Allergy to substanc e Active Hives 12-06 00:00: 00 Other reaction( s): Unknown [facility] Levoflox acin Allergy to substanc e Active Anaphylaxis 2013-06 00:00: 00 Other reaction( s): stops breathing , SWELLING, Unknown [facility] 8091 Drug allergy Active rash [facility] 77291 Drug allergy Active stops breathing [facility] Social History Social Habit Start Date Stop Date Quantity Comments Source [facility] Use [facility] Alcohol intake 2023-10-03 00:00:00 2023-10-03 00:00:00 Ex-drinker (finding) [facility] History of Social function 2023-10-03 00:00:00 2023-10-03 00:00:00 [facility] Alcoholic beverage intake 2023-10-03 00:00:00 2023-10-03 00:00:00 Ex-drinker (finding) [facility] Tobacco use and exposure 2023-04-12 00:00:00 2023-04-12 00:00:00 Smokeless tobacco non-user [facility] Exposure to SARS-CoV-2 (event) 2022-05-02 00:00:00 2022-05-12 11:32:00 Not sure [facility] Sex Ass[birth year] At 1960 00:00:00 1960 00:00:00 [facility] Smoking Status Start Date Stop Date Source Tobacco smoking consumption unknown [facility] Never smoked tobacco [facility] Social History 2019-03-28 18:18:16 2019-03-28 18:18:16 [facility] Medications Ordered Medication Name Filled Medication Name Start Date Stop Date Current Medication? Ordering Clinician Indication Dosage Frequency Signature (SIG) Comments Components Source DULoxetine 30 mg capsule 10-02 00:00: 00 Yes [id number] 30mg Take 1 capsule by mouth in the morning. [facility] carvediloL 25 mg tablet 10-02 00:00: 00 Yes [id number] 25mg Take 1 tablet by mouth in the morning and 1 tablet in the evening. Take with meals. [facility] Amylase-Lip ase-Proteas e (CREON) 24,000-76,0 00 -120,000 unit capsule 10-02 00:00: 00 Yes [id number] 17427V Take 1 capsule by mouth in the morning and 1 capsule at noon and 1 capsule in the evening. Take with meals. [facility] pantoprazol e 40 mg EC tablet 10-02 00:00: 00 Yes [id number] 40mg Take 1 tablet by mouth in the morning. [facility] ondansetron 4 mg tablet 10-02 00:00: 00 Yes [id number] 4mg Take 1 tablet by mouth every 6 (six) hours as needed for Nausea and Vomiting (N/V). [facility] albuterol (VENTOLIN HFA) 90 mcg/actuati on inhaler 07-04 14:23: 05 07-04 00:00 :00 No 2{puff} Inhale 2 Puffs every 6 (six) hours as needed for Wheezing or Shortness of Breath. [facility] albuterol 90 mcg/actuati on inhaler 07-04 14:22: 58 07-04 00:00 :00 No 2{puff} Inhale 2 Puffs every 6 (six) hours as needed for Wheezing or Shortness of Breath. [facility] Amylase-Lip ase-Proteas e (CREON) 24,000-76,0 00 -120,000 unit capsule 07-04 14:22: 27 07-04 00:00 :00 No [id number] Take 1 capsule by mouth in the morning and 1 capsule at noon and 1 capsule in the evening. Take with meals. [facility] carvediloL 25 mg tablet 07-04 00:00: 00 10-02 00:00 :00 No [id number] 25mg Take 1 tablet by mouth in the morning and 1 tablet in the evening. Take with meals. [facility] DULoxetine 30 mg capsule 07-04 00:00: 00 10-02 00:00 :00 No [id number] 30mg Take 1 capsule by mouth in the morning. [facility] pantoprazol e 40 mg EC tablet 07-04 00:00: 00 10-02 00:00 :00 No [id number] 40mg Take 1 tablet by mouth in the morning. [facility] ondansetron 4 mg tablet 07-04 00:00: 00 10-02 00:00 :00 No [id number] 4mg Take 1 tablet by mouth every 6 (six) hours as needed for Nausea and Vomiting (N/V). [facility] Amylase-Lip ase-Proteas e (CREON) 24,000-76,0 00 -120,000 unit capsule 07-04 00:00: 00 10-02 00:00 :00 No [id number] Take 1 capsule by mouth in the morning and 1 capsule at noon and 1 capsule in the evening. Take with meals. [facility] carvedilol (COREG) 25 mg tablet 2022-06 15:04: 39 04-12 00:00 :00 No 25mg Take 1 tablet by mouth in the morning and 1 tablet in the evening. Take with meals. [facility] predniSONE 20 mg tablet 2022-06 14:43: 26 04-12 00:00 :00 No 20mg Take 1 tablet by mouth in the morning. [facility] Amylase-Lip ase-Proteas e (CREON) 24,000-76,0 00 -120,000 unit capsule 2022-06 14:26: 48 Yes [id number] Take 1 capsule by mouth in the morning and 1 capsule at noon and 1 capsule in the evening. Take with meals. [facility] albuterol 90 mcg/actuati on inhaler 2022-06 14:26: 48 Yes 2{puff} Inhale 2 Puffs every 6 (six) hours as needed for Wheezing or Shortness of Breath. [facility] blood sugar diagnostic (ONE TOUCH TEST MISC) 2022-06 14:26: 48 Yes One touch ultra blue test strip [facility] HYDROcodone -acetaminop hen (NORCO) 7.5-325 mg per tablet 2022-06 14:22: 42 04-12 00:00 :00 No 1{tbl} Take 1 Tab by mouth every 6 (six) hours as needed for Pain. [facility] LIPASE/PROT EASE/AMYLAS E (CREON 10 ORAL) 2022-06 14:22: 42 04-12 00:00 :00 No Take by mouth. [facility] DULoxetine 30 mg capsule 2022-06 00:00: 00 07-04 00:00 :00 No [id number] 30mg Take 1 capsule by mouth in the morning. [facility] carvediloL 25 mg tablet 2022-06 00:00: 00 07-04 00:00 :00 No [id number] 25mg Take 1 tablet by mouth in the morning and 1 tablet in the evening. Take with meals. [facility] ondansetron 4 mg tablet 02-14 00:00: 00 07-04 00:00 :00 No 4mg Take 1 tablet by mouth every 6 (six) hours as needed for Nausea and Vomiting (N/V). [facility] clonazePAM 1 mg tablet 02-14 00:00: 00 04-12 00:00 :00 No 1mg Take 1 tablet by mouth 2 (two) times daily as needed. [facility] gabapentin 300 mg capsule 02-07 00:00: 00 Yes TAKE 1 CAPSULE TWICE A DAY FOR 28 DAY(S) [facility] pantoprazol e 40 mg EC tablet 12-10 00:00: 00 07-04 00:00 :00 No 40mg Take 1 tablet by mouth in the morning. [facility] clonazePAM 0.5 MG clonazePAM 0.5 MG 3-31 00:00: 00 No QD clonazePAM 0.5 [...] clonazePAM 1 MG clonazePAM 1 MG 2021-1 - 00:00: 00 No QD clonazePAM 1 [...] clonazePAM 1 MG clonazePAM 1 MG 1-0 9-21 00:00: 00 No BID clonazePAM 1 MG Flomax 0.4 MG Flomax 0.4 MG 0 -22 00:00: 00 07-21 00:00 :00 No 1{capsu [...] 16 00:00: 00 04-12 00:00 :00 No [id number] Apply to area(s) 5 (five) times daily. [facility] valsartan 40 mg oral tablet 2018-06 19:12: 00 Yes 0 Refill(s) Dieudonne Gordon pantoprazol e 40 mg oral enteric coated tablet 09-26 19:00: 00 Yes 40 mg = 1 tab, PO, Daily, # 30 tab, 0 Refill(s) Dieudonne Gordon Acetaminoph en 325 MG / Hydrocodone Bitartrate 10 MG Oral Tablet [Comfrey 10/325] 09-26 19:00: 00 Yes 1 tab, PO, QID, 0 Refill(s) Dieudonne Gordon Clonazepam 2 MG Oral Tablet [Klonopin] 09-26 19:00: 00 Yes 2 mg = 1 tab, PO, BID, # 60 tab, 0 Refill(s) Dieudonne Gordon Aspirin 81 Aspirin 81 09-14 00:00: 00 Yes Esthela Dunham 1 tablet [facility] Aspirin 81 81 MG Aspirin [...] 00 Yes Esthela Dunham 1 puff [facility] Albuterol Sulfate HFA 108 (90 [...] 6 (six) hours as needed for Pain. [facility] LIPASE/PROT EASE/AMYLAS E (CREON 10 ORAL) 12-06 06:42: 52 Yes Take by mouth. [facility] carvedilol (COREG) 25 mg tablet 12-06 06:42: 52 Yes 25mg Take 25 mg by mouth 2 (two) times daily with meals. [facility] metroNIDAZO LE (FLAGYL) 500 mg tablet 12-06 00:00: 00 04-12 00:00 :00 No 500mg Take 1 Tab by mouth 2 (two) times daily. [facility] proMETHazin e (PHENERGAN) 25 mg tablet 12-06 00:00: 00 04-12 00:00 :00 No 25mg Take 1 Tab by mouth every 6 (six) hours as needed for Nausea and Vomiting (N/V). [facility] Clonazepam Clonazepam Yes Esthela Dunham TAKE 1 TABLET BY MOUTH TWICE A DAY [facility] Carvedilol Carvedilol Yes Esthela Dunham take 1 tablet by mouth twice a day [facility] Famotidine Famotidine Yes Esthela [place] 1 tablet at bedtime [facility] Protonix Protonix Yes Esthela [place] 1 tablet [facility] Dicyclomine HCl Dicyclomine HCl Yes Esthela Harrisburg 1 tablet [facility] Ventolin HFA Ventolin HFA Yes Esthela Harrisburg 2 puffs [facility] Valsartan Valsartan Yes Esthela [place] 1 tablet [facility] Hydrocodone -Acetaminop hen [...] 15{ml} Lactulose 10 GM/15ML OneTouch Delica Plus Nczcxp15X - OneTouch Delica Plus Iucjox92P - No OneTouch Delica Plus Wccrfp18F - Famotidine 20 MG Famotidine 20 MG [...] 15{ml} Lactulose 10 GM/15ML OneTouch Delica Plus Tlxvpt06F - OneTouch Delica Plus Atccgi16Y - No OneTouch Delica Plus Wrrjaq50U - Protonix 40 MG Protonix 40 MG No 1{table t} QD Protonix 40 MG OneTouch Ultra - OneTouch Ultra - No OneTouch Ultra - Ventolin HFA 108 (90 Base) MCG/ACT Ventolin HFA 108 (90 Base) MCG/ACT No 2{puffs } Ventolin HFA 108 (90 Base) MCG/ACT Protonix 40 MG Protonix 40 MG No 1{table t} QD Protonix 40 MG OneTouch Delica Plus Equuux08E - OneTouch Delica Plus Ezgxol86K - No OneTouch Delica Plus Vjpypa96S - Albuterol Sulfate HFA 108 (90 Base) [...] QD Protonix 40 MG OneTouch Delica Plus Ovhnil59S - OneTouch Delica Plus Atehur95A - No OneTouch Delica Plus Iwovqo71F - Albuterol Sulfate HFA 108 (90 Base) [...] QD Protonix 40 MG OneTouch Delica Plus Fvreib74U - OneTouch Delica Plus Cxnbrw04H - No OneTouch Delica Plus Nzjpub08Z - Famotidine 20 MG Famotidine 20 MG [...] QD Protonix 40 MG OneTouch Delica Plus Tjwagx16H - OneTouch Delica Plus Pxrhuw74V - No OneTouch Delica Plus Ikezfv06A - Famotidine 20 MG Famotidine 20 MG [...] QD Protonix 40 MG OneTouch Delica Plus Jhgkkk77D - OneTouch Delica Plus Ytwvlh18P - No OneTouch Delica Plus Fcuuzs65F - Famotidine 20 MG Famotidine 20 MG [...] QD Protonix 40 MG OneTouch Delica Plus Mimtmq46J - OneTouch Delica Plus Zudbit38G - No OneTouch Delica Plus Cubdav96C - Ventolin HFA 108 (90 Base) MCG/ACT Ventolin HFA 108 (90 Base) MCG/ACT No 2{puffs } Ventolin HFA 108 (90 Base) MCG/ACT Carvedilol 25 MG Carvedilol 25 MG No 1{table t_with_ food} BID Carvedilol 25 MG OneTouch Ultra - OneTouch Ultra - No OneTouch Ultra - OneTouch Delica Plus Nyrony54F - OneTouch Delica Plus Lkvvfm34W - No OneTouch Delica Plus Oyffcq78B - Protonix 40 MG Protonix 40 MG No 1{table t} QD Protonix 40 MG Ventolin HFA 108 (90 Base) MCG/ACT Ventolin HFA 108 (90 Base) MCG/ACT No 2{puffs } Ventolin HFA 108 (90 Base) MCG/ACT Carvedilol 25 MG Carvedilol 25 MG No 1{table t_with_ food} BID Carvedilol 25 MG OneTouch Ultra - OneTouch Ultra - No OneTouch Ultra - OneTouch Delica Plus Yycuoz86G - OneTouch Delica Plus Sxwdfk31C - No OneTouch Delica Plus Tancri77Y - Protonix 40 MG Protonix 40 MG No 1{table t} QD Protonix 40 MG Ventolin HFA 108 (90 Base) MCG/ACT Ventolin HFA 108 (90 Base) MCG/ACT No 2{puffs } Ventolin HFA 108 (90 Base) MCG/ACT Carvedilol 25 MG Carvedilol 25 MG No 1{table t_with_ food} BID Carvedilol 25 MG OneTouch Ultra - OneTouch Ultra - No OneTouch Ultra - OneTouch Delica Plus Dklfnj22H - OneTouch Delica Plus Jmbwpa24S - No OneTouch Delica Plus Dfgbla48L - Protonix 40 MG Protonix 40 MG [...] No OneTouch Ultra - OneTouch Delica Plus Psuovv73J - OneTouch Delica Plus Gbqtdl02I - No OneTouch Delica Plus Nxhehr45E - HYDROcodone -Acetaminop hen 10-325 MG HYDROcodone [...] No OneTouch Ultra - OneTouch Delica Plus Pcdrdp78N - OneTouch Delica Plus Qfonrp97I - No OneTouch Delica Plus Wasvwc95N - Albuterol Sulfate HFA 108 (90 Base) [...] No OneTouch Ultra - OneTouch Delica Plus Xpwbzk62Y - OneTouch Delica Plus Gcontl21W - No OneTouch Delica Plus Cnmcvj30D - Albuterol Sulfate HFA 108 (90 Base) MCG/ACT Albuterol Sulfate HFA 108 (90 Base) MCG/ACT No Albuterol Sulfate HFA 108 (90 Base) MCG/ACT HYDROcodone -Acetaminop hen 10-325 MG HYDROcodone -Acetaminop hen 10-325 MG No HYDROcodon e-Acetamin ophen 10-325 MG Protonix 40 MG Protonix 40 MG No 1{table t} QD Protonix 40 MG Creon Creon 12-23 00:00 :00 No Esthela [place] take by mouth 1 capsule 3 times a day as directed [facility] Vital Signs Vital Name Observation Time Observation Value Comments S herbie Systolic blood pressure 2023-10-03 21:46:00 142 mm[Hg] [facility] Diastolic blood pressure 2023-10-03 21:46:00 92 mm[Hg] [facility] Heart rate 2023-10-03 21:46:00 86 /min [facility] Oxygen saturation in Arterial blood by Pulse oximetry 2023-10-03 21:46:00 96 /min [facility] Systolic blood pressure 2023-10-03 21:03:00 142 mm[Hg] [facility] Diastolic blood pressure 2023-10-03 21:03:00 92 mm[Hg] [facility] Heart rate 2023-10-03 21:03:00 86 /min [facility] Body height 2023-10-03 21:03:00 177.8 cm [facility] Body weight 2023-10-03 21:03:00 99.202 kg [facility] BMI 2023-10-03 21:03:00 31.38 kg/m2 [facility] Systolic blood pressure 2023-07-04 20:00:00 142 mm[Hg] [facility] Diastolic blood pressure 2023-07-04 20:00:00 84 mm[Hg] [facility] Heart rate 2023-07-04 19:59:00 58 /min [facility] Body temperature 2023-07-04 19:59:00 36.11 Jing [facility] Respiratory rate 2023-07-04 19:59:00 17 /min [facility] Body height 2023-07-04 19:59:00 175.3 cm [facility] acute hospital Body weight 2023-07-04 19:59:00 99.973 kg [facility] hospital BMI 2023-07-04 19:59:00 32.55 kg/m2 [facility] Oxygen saturation in Arterial blood by Pulse oximetry 2023-07-04 19:59:00 97 /min [facility] Systolic blood pressure 2023-04-12 20:19:00 149 mm[Hg] [facility] Diastolic blood pressure 2023-04-12 20:19:00 90 mm[Hg] [facility] Heart rate 2023-04-12 18:55:00 55 /min [facility] Respiratory rate 2023-04-12 18:55:00 18 /min [facility] Body height 2023-04-12 18:55:00 177.8 cm [facility] Body weight 2023-04-12 18:55:00 99.202 kg [facility] hospital BMI 2023-04-12 18:55:00 31.38 kg/m2 [facility] Oxygen saturation in Arterial blood by Pulse oximetry 2023-04-12 18:55:00 98 /min [facility] height 2022-08-30 15:20:00 70 [in_i] [facility] weight 2022-08-30 15:20:00 216.2 [lb_av] [facility] [facility] temperature 2022-08-30 15:20:00 97.2 [degF] Com mon [facility] bmi 2022-08-30 15:20:00 31.02 kg/m2 Comm on [facility] oximetry 2022-08-30 15:20:00 96 % [facility] respiratory rate 2022-08-30 15:20:00 17 /min [facility] blood pressure systolic 2022-08-30 15:20:00 134 mm[Hg] Common [facility] blood pressure diastolic 2022-08-30 15:20:00 80 mm[Hg] [facility] height 2022-04-11 15:40:00 70 [in_i] [facility] weight 2022-04-11 15:40:00 206.9 [lb_av] Co mmon [facility] temperature 2022-04-11 15:40:00 97.6 [degF] Com mon [facility] bmi 2022-04-11 15:40:00 29.68 kg/m2 Comm on [facility] oximetry 2022-04-11 15:40:00 98 % Com[facility] respiratory rate 2022-04-11 15:40:00 18 /min [facility] blood pressure systolic 2022-04-11 15:40:00 138 mm[Hg] Common [facility] blood pressure diastolic 2022-04-11 15:40:00 72 mm[Hg] [facility] height 2022-02-09 13:50:00 70 [in_i] Commo n [facility] weight 2022-02-09 13:50:00 207 [lb_av] Comm on [facility] temperature 2022-02-09 13:50:00 97.9 [degF] Com mon [facility] bmi 2022-02-09 13:50:00 29.7 kg/m2 Com[facility] oximetry 2022-02-09 13:50:00 96 % Commo n [facility] respiratory rate 2022-02-09 13:50:00 18 /min [facility] blood pressure systolic 2022-02-09 13:50:00 132 mm[Hg] [facility] blood pressure diastolic 2022-02-09 13:50:00 70 mm[Hg] [facility] height 2021-12-07 09:20:00 70 [in_i] Commo n [facility] weight 2021-12-07 09:20:00 206.0 [lb_av] Co m[facility] temperature 2021-12-07 09:20:00 98.2 [degF] Com mon [facility] bmi 2021-12-07 09:20:00 29.55 kg/m2 Comm on [facility] oximetry 2021-12-07 09:20:00 99 % Commo n [facility] respiratory rate 2021-12-07 09:20:00 18 /min Common [facility] blood pressure systolic 2021-12-07 09:20:00 137 mm[Hg] [facility] blood pressure diastolic 2021-12-07 09:20:00 70 mm[Hg] [facility] height 2021-02-23 14:30:00 70 [in_i] Commo n [facility] weight 2021-02-23 14:30:00 190.0 [lb_av] Co mmon [facility] temperature 2021-02-23 14:30:00 98.3 [degF] Com mon [facility] bmi 2021-02-23 14:30:00 27.26 kg/m2 Comm on [facility] blood pressure systolic 2021-02-23 14:30:00 138 mm[Hg] [facility] blood pressure diastolic 2021-02-23 14:30:00 74 mm[Hg] Common [facility] Systolic blood pressure 2020-12-28 20:04:00 155 mm[Hg] [facility] Diastolic blood pressure 2020-12-28 20:04:00 82 mm[Hg] [facility] Heart rate 2020-12-28 20:04:00 61 /min [facility] Body temperature 2020-12-28 20:04:00 36.67 Jing [facility] Respiratory rate 2020-12-28 20:04:00 16 /min [facility] Body height 2020-12-28 20:04:00 177.8 cm [facility] acute hospital Body weight 2020-12-28 20:04:00 86.183 kg [facility] acute hospital BMI 2020-12-28 20:04:00 27.26 kg/m2 General acute hospital Oxygen saturation in Arterial blood by Pulse oximetry 2020-12-28 20:04:00 97 /min [facility] Systolic blood pressure 2019-07-22 04:00:00 147 mm[Hg] [facility] Diastolic blood pressure 2019-07-22 04:00:00 87 mm[Hg] [facility] Heart rate 2019-07-22 04:00:00 54 /min [facility] Respiratory rate 2019-07-22 04:00:00 20 /min [facility] Oxygen saturation in Arterial blood by Pulse oximetry 2019-07-22 04:00:00 99 /min [facility] Body temperature 2019-07-21 23:21:00 37 Jing [facility] Body weight 2019-07-21 23:21:00 86.183 kg General acute hospital BMI 2019-07-21 23:21:00 27.26 kg/m2 General acute hospital Systolic blood pressure 2019-07-22 04:00:00 147 mm[Hg] [facility] Diastolic blood pressure 2019-07-22 04:00:00 87 mm[Hg] [facility] Heart rate 2019-07-22 04:00:00 54 /min [facility] Respiratory rate 2019-07-22 04:00:00 20 /min [facility] Oxygen saturation in Arterial blood by Pulse oximetry 2019-07-22 04:00:00 99 /min [facility] Body temperature 2019-07-21 23:21:00 37 Jing [facility] Body weight 2019-07-21 23:21:00 86.183 kg General acute hospital BMI 2019-07-21 23:21:00 27.26 kg/m2 [facility] acute hospital Systolic (mm Hg) 2019-03-28 18:17:00 [facility] Diastolic (mm Hg) 2019-03-28 18:17:00 [facility] Heart Rate 2019-03-28 18:17:00 [facility] Respitory Rate 2019-03-28 18:17:00 [facility] Height 2019-03-28 18:17:00 172.72 cm [facility] Weight 2019-03-28 18:17:00 [facility] [place] BMI Calculated 2019-03-28 18:17:00 [facility] BMI Calculated 2018-09-26 18:51:00 [facility] Weight 2018-09-26 18:51:00 [facility] Height 2018-09-26 18:51:00 172.72 cm [facility] [place] Heart Rate 2018-09-26 18:51:00 [facility] Respitory Rate 2018-09-26 18:51:00 [facility] [place] Systolic (mm Hg) 2018-09-26 18:51:00 [facility] [place] Diastolic (mm Hg) 2018-09-26 18:51:00 [facility] Procedures Procedure Date / Time Performed Performing Clinicia n Source NOTICE OF PRIVACY PRACTICES 2020-12-28 19:58:01 Doctor Unassigned, [place] [facility] CONSENT/REFUSAL FOR DIAGNOSIS AND TREATMENT 2020-12-28 19:57:10 Doctor Unassigned, [place] [facility] US SCROTUM AND CONTENTS 2019-07-22 03:08:48 Lucho Alfaro [facility] NOTICE OF PRIVACY PRACTICES 2019-07-21 23:12:14 Doctor Unassigned, [place] [facility] CONSENT/REFUSAL FOR DIAGNOSIS AND TREATMENT 2019-07-21 23:07:41 Doctor Unassigned, [place] [facility] Encounters Start Date/Time End Date/Time Encounter Type Admission Type Attending [facility] Facility Care Department Encounter ID Source 2023-01-11 16:27:00 Outpatient Jenkins, [facility] [id number] [facility] 2022-09-12 13:14:00 Outpatient Jenkins, [facility] [id number] [facility] 2022-08-26 08:40:00 [facility] [id number] [facility] 2022-08-17 14:47:00 Outpatient Jenkins, [facility] [id number] [facility] 2022-06-02 08:30:58 Outpatient [facility] [id number] [facility] 2022-05-24 13:55:01 Outpatient Jenkins, [facility] [id number] [facility] 2022-05-23 10:20:01 Outpatient Jenkins, [facility] [id number] [facility] 2022-05-04 14:32:40 Outpatient [facility] [id number] [facility] 2022-04-07 13:30:01 Outpatient Jenkins, [facility] [id number] [facility] 2022-04-04 10:22:48 Outpatient [facility] [id number] [facility] 2022-03-31 12:03:45 Outpatient [facility] [id number] [facility] 2022-03-30 15:15:47 Outpatient [facility] [id number] [facility] 2022-02-09 13:48:01 Outpatient Jenkins, Reese STLMLC STLMLC [id number] [facility] 2021-12-08 11:45:00 Outpatient Jenkins, Reese STLMLC STLMLC [id number] [facility] 2021-12-07 09:25:00 Outpatient Jenkins, [facility] STLMLC STLMLC [id number] [facility] 2021-12-03 09:35:01 Outpatient Jenkins, [facility] STLMLC STLMLC [id number] [facility] 2021-06-30 13:05:56 Outpatient Jenkins, Reese STLMLC STLMLC [id number] [facility] 2021-06-30 12:47:29 Outpatient Jenkins, [facility] STLMLC STLMLC [id number] [facility] 2021-06-30 12:36:27 Outpatient Jenkins, Reese STLMLC STLMLC [id number] [facility] 2021-06-30 12:35:26 Outpatient Jenkins, Reese STLMLC STLMLC [id number] [facility] 2021-06-30 12:28:53 Outpatient Jenkins, Reese STLMLC STLMLC [id number] [facility] 2021-06-30 12:26:11 Outpatient Jenkins, Reese STLMLC STLMLC [id number] [facility] 2021-06-30 12:12:23 Outpatient Jenkins, Reese STLMLC STLMLC [id number] [facility] 2021-06-30 12:04:45 [facility] [id number] [facility] 2021-06-30 11:55:15 [facility] [id number] [facility] 2021-06-30 11:52:56 [facility] [id number] [facility] 2021-06-30 11:52:32 [facility] [id number] [facility] 2021-06-30 11:02:50 Outpatient Fernanda Lockwood [facility] [id number] [facility] 2021-06-30 11:02:33 Outpatient Fernanda Lockwood [facility] [id number] [facility] 2024-01-26 00:00:00 2024-01-26 09:02:45 Telephone Robbin Carroll [facility] 1.2.840.114 350.1.13.10 4.2.7.2.686 [id number] [facility] 2023-12-18 00:00:00 2023-12-18 16:23:17 Telephone Team, [facility] 1.2.840.114 350.1.13.10 4.2.7.2.686 [id number] [facility] 2023-10-03 14:00:00 2023-10-03 16:58:23 Office Visit Robbin Carroll [facility] 1.2.840.114 350.1.13.10 4.2.7.2.686 [id number] [facility] 2023-10-03 16:00:00 2023-10-03 16:38:39 Outpatient R ROBBIN CARROLL [facility] [id number] [facility] 2023-10-03 16:00:00 2023-10-03 16:38:39 Office Visit Robbin Carroll [facility] 1..840.114 350.1.13.10 4.2.7.2.686 [id number] [facility] 2023-07-04 14:00:00 2023-07-04 14:41:34 Outpatient R ROBBIN CARROLL [facility] [id number] [facility] 2023-07-04 14:00:00 2023-07-04 14:41:34 Office Visit Robbin Carroll [facility] 1..840.114 350.1.13.10 4.2.7.2.686 [id number] [facility] 2023-05-26 14:20:00 2023-05-26 14:20:00 Outpatient R INA MIKE [facility] [id number] [facility] 2023-04-26 00:00:00 2023-04-26 00:00:00 Refill Ina Mike [facility]VEE[facility] 1..840.114 350.1.13.10 4.2.7.2.686 [id number] [facility] 2023-04-12 15:15:00 2023-04-12 15:42:32 Figure Skater Visit Lab, Ina Charles [facility] 1..840.114 350.1.13.10 4.2.7.2.686 [id number] [facility] 2023-04-12 15:15:00 2023-04-12 15:15:00 Outpatient R INA MIKE [facility] [id number] [facility] 2023-04-12 14:00:00 2023-04-12 15:06:59 Office Visit Ina Mike [facility] 1.2.840.114 350.1.13.10 4.2.7.2.686 [id number] [facility] 2022-12-20 00:00:00 2022-12-20 00:00:00 (TEL) STLMLC STLMLC [id number] [facility] 2022-11-03 00:00:00 2022-11-03 00:00:00 (TEL) STLMLC STLMLC [id number] [facility] 2022-09-02 00:00:00 2022-09-02 00:00:00 (TEL) STLMLC STLMLC [id number] [facility] 2022-09-02 00:00:00 2022-09-02 00:00:00 (TEL) STLMLC STLMLC [id number] [facility] 2022-08-30 00:00:00 2022-08-30 00:00:00 OFFICE VISIT ESTAB PT LEVEL 4 STLMLC STLMLC [id number] [facility] 2022-08-17 00:00:00 2022-08-17 00:00:00 (TEL) STLMLC STLMLC [id number] [facility] 2022-06-16 13:00:00 2022-06-16 13:00:00 Outpatient WARD SANTOS [facility] [id number] [facility] 2022-05-12 11:30:00 2022-05-12 13:38:22 Office Visit Ward Santos [facility] [address] 1.2.840.114 350.1.13.58 9.2.7.2.686 [id number] [facility] 2022-04-19 00:00:00 2022-04-19 00:00:00 (TEL) STLMLC STLMLC [id number] [facility] 2022-04-14 10:30:00 2022-04-14 12:17:23 [id number] 2022-04-11 00:00:00 2022-04-11 00:00:00 OFFICE VISIT ESTAB PT LEVEL 4 STLMLC STLMLC [id number] [facility] 2022-04-04 10:30:00 2022-04-04 16:18:07 Office Visit [facility] [address] [facility] 1.2.840.114 350.1.13.58 9.2.7.2.686 [id number] [facility] 2022-03-25 11:00:00 2022-03-25 11:00:00 [id number] 2022-03-24 00:00:00 2022-03-24 00:00:00 (TEL) STLMLC STLMLC [id number] [facility] 2022-03-23 00:00:00 2022-03-23 00:00:00 (TEL) STLMLC STLMLC [id number] [facility] 2022-03-23 00:00:00 2022-03-23 00:00:00 (TEL) STLMLC STLMLC [id number] [facility] 2022-03-23 00:00:00 2022-03-23 00:00:00 (TEL) STLMLC STLMLC [id number] [facility] 2022-02-09 00:00:00 2022-02-09 00:00:00 OFFICE VISIT ESTAB PT LEVEL 4 STLMLC STLMLC [id number] [facility] 2021-12-07 00:00:00 2021-12-07 00:00:00 OFFICE VISIT ESTAB PT LEVEL 4 STLMLC STLMLC [id number] [facility] 2021-03-24 00:00:00 2021-03-24 00:00:00 (TEL) STLMLC STLMLC [id number] [facility] 2021-02-23 00:00:00 2021-02-23 00:00:00 (TELEAUD) AUDIO TELEMEDICI NE STLMLC STLMLC [id number] [facility] 2021-02-22 00:00:00 2021-02-22 00:00:00 (TEL) STLMLC STLMLC [id number] [facility] 2020-12-28 15:10:00 2020-12-28 16:55:00 Emergency Shania Waters S [facility] 1.2.840.114 350.1.13.10 4.2.7.2.686 [id number] [facility] 2020-12-28 14:57:00 2020-12-28 14:57:00 Emergency X [facility] ERT [id number] [facility] 2020-12-28 00:00:00 2020-12-28 00:00:00 Orders Only Doctor Unassigned, [place] [facility] 1.2.840.114 350.1.13.10 4.2.7.2.686 [id number] [facility] 2020-12-24 00:00:00 2020-12-24 00:00:00 Outpatient STLMLC STLMLC [id number] [facility] 2020-12-17 00:00:00 2020-12-17 00:00:00 Outpatient STLMLC STLMLC [id number] [facility] 2020-12-04 00:00:00 2020-12-04 00:00:00 Outpatient STLMLC STLMLC [id number] [facility] 2020-10-22 00:00:00 2020-10-22 00:00:00 Outpatient STLMLC STLMLC [id number] [facility] 2020-10-15 00:00:00 2020-10-15 00:00:00 Outpatient STLMLC STLMLC [id number] [facility] 2020-10-07 00:00:00 2020-10-07 00:00:00 Outpatient STLMLC STLMLC [id number] [facility] 2020-09-07 00:00:00 2020-09-07 00:00:00 Outpatient STLMLC STLMLC [id number] [facility] 2020-08-06 00:00:00 2020-08-06 00:00:00 Outpatient STLMLC STLMLC [id number] [facility] 2020-07-09 00:00:00 2020-07-09 00:00:00 Outpatient STLMLC STLMLC [id number] [facility] 2020-06-09 00:00:00 2020-06-09 00:00:00 Outpatient STLMLC STLMLC [id number] [facility] 2020-05-21 00:00:00 2020-05-21 00:00:00 Outpatient STLMLC STLMLC [id number] [facility] 2020-05-14 00:00:00 2020-05-14 00:00:00 Outpatient STLMLC STLMLC [id number] [facility] 2020-04-28 00:00:00 2020-04-28 00:00:00 Outpatient STLMLC STLMLC [id number] [facility] 2020-04-16 00:00:00 2020-04-16 00:00:00 Outpatient STLMLC STLMLC [id number] [facility] 2020-03-18 00:00:00 2020-03-18 00:00:00 Outpatient STLMLC STLMLC [id number] [facility] 2020-03-18 00:00:00 2020-03-18 00:00:00 Outpatient STLMLC STLMLC [id number] [facility] 2020-03-10 00:00:00 2020-03-10 00:00:00 Outpatient STLMLC STLMLC [id number] [facility] 2020-01-30 04:28:00 2020-01-30 04:28:00 Outpatient Ajibade_O_A H VFP VFP [id number] [facility] 2020-01-30 04:28:00 2020-01-30 04:28:00 Outpatient Ajibade_O_A H VFP VFP [id number] [facility] 2020-01-30 04:28:00 2020-01-30 04:28:00 Outpatient Ajibade_O_A H VFP VFP [id number] [facility] 2020-01-30 04:28:00 2020-01-30 04:28:00 Outpatient Ajibade_O_A H VFP VFP [id number] [facility] 2019-07-24 07:17:00 2019-07-24 07:17:00 Outpatient Ige-Odunuga _J_AH VFP VFP [id number] [facility] 2019-07-24 07:17:00 2019-07-24 07:17:00 Outpatient Ige[place] _J_AH VFP VFP [id number] [facility] 2019-07-21 18:06:23 2019-07-21 22:09:00 Emergency Lucho Alfaro [address]840.114 350.1.13.10 4.2.7.2.686 [id number] 2019-07-21 18:06:23 2019-07-21 22:09:00 Emergency X LUCHO ALFARO [facility] ERT [id number] [facility] 2019-07-21 18:06:23 2019-07-21 22:09:00 Emergency Lucho Alfaro [address]840.114 350.1.13.10 4.2.7.2.686 [id number] [facility] 2019-07-15 15:01:00 2019-07-15 15:01:00 [facility] [id number] [facility] 2019-07-09 16:46:00 2019-07-09 16:46:00 [facility] [id number] [facility] 2019-07-08 14:51:00 2019-07-08 14:51:00 [facility] [id number] [facility] 2019-07-08 08:00:00 2019-07-08 08:00:00 [facility] [id number] [facility] 2019-07-04 13:00:00 2019-07-04 13:00:00 [facility] [id number] [facility] 2019-07-02 14:32:00 2019-07-02 14:32:00 [facility] [id number] [facility] 2019-06-27 14:40:00 2019-06-27 14:40:00 [facility] [id number] [facility] 2019-06-03 11:17:00 2019-06-03 11:17:00 [facility] [id number] [facility] 2019-04-18 18:37:59 2019-04-20 05:59:59 Outside Medical Records nullFlavo r [facility] [id number] Dieudonne Gordon 2019-04-11 21:30:00 2019-04-11 21:30:00 Ambulatory Pre-Reg nullFlavo r [facility] [id number] 03 Dieudonne Gordon 2019-04-09 15:20:00 2019-04-09 15:20:00 [facility] [id number] [facility] 2019-04-01 13:58:44 2019-04-03 04:59:59 Outside Medical Records nullFlavo r [facility] [id number] Dieudonne Gordon 2019-03-28 18:00:00 2019-03-29 04:59:59 Outpatient nullFlavo r [facility] [id number] Dieudonne Gordon 2019-02-19 14:40:00 2019-02-19 14:40:00 [facility] [id number] [facility] 2018-12-11 11:21:00 2018-12-11 11:21:00 [facility] [id number] [facility] 2018-11-19 14:40:00 2018-11-19 14:40:00 [facility] [id number] [facility] 2018-10-31 18:45:00 2018-10-31 18:45:00 Ambulatory Pre-Reg nullFlavo r [facility] [id number] Dieudonne Gordon 2018-09-26 18:30:00 2018-09-27 04:59:59 Outpatient nullFlavo r [facility] [id number] Dieudonne Gordon 2018-09-17 16:00:00 2018-09-17 16:00:00 [facility] [id number] [facility] 2018-08-02 16:07:00 2018-08-02 16:07:00 [facility] [id number] [facility] 2018-08-02 16:05:00 2018-08-02 16:05:00 [facility] [id number] [facility] 2018-06-18 16:00:00 2018-06-18 16:00:00 [facility] [address] [facility] [id number] [facility] 2018-01-18 14:00:00 2018-01-18 14:00:00 [facility] [id number] [facility] 2017-09-19 09:33:00 2017-09-19 09:33:00 [facility] [id number] [facility] 2017-09-14 13:00:00 2017-09-14 13:00:00 [facility] [id number] [facility] 2017-09-12 11:05:00 2017-09-12 11:05:00 [facility] [id number] [facility] 2017-08-29 15:30:00 2017-08-29 15:30:00 [facility] [id number] [facility] Results Test Description Test Time Test Comments Results Resul t Comments Source US SCROTUM AND CONTENTS 2019-07-06 03:19:48 No evidence for testicular torsion. No definite evidence for epididymo-orchitis. RL: [id number] AF: [id number] Ordering physician: LUCHO ALFARO INDICATION: Scrotal pain [...] torsion.No definite evidence for epididymo-orchitis. RL: [id number]: [id number] signed by Kristen Valdez MD, PhD at 07/21/2019 9:19 PM [facility] Notes Date/Time Note Provider Source 2024-01-26 09:01:18 Images from the original note were not included. Scanned in folder and placed in provider basket for review. Meron Chawla [facility] 2023-12-18 16:19:38 Records Update Encounter Managed Care Team completed a Care Everywhere Search to update records. Patient was not contacted. Sarah Rosas [facility]
[2024-02-17] MEDS ORDERED: DICYCLOMINE HCL 20 MG/2 ML AMP IM ONE (21:32)
[2024-02-17] MEDS ORDERED: NA CHLORIDE 0.9% 1,000 ML ONE (21:32)
[2024-02-17] MEDS ORDERED: MORPHINE 2 MG/ML SYR ONE ×2 (21:32→22:28)
[2024-02-17] MEDS ORDERED: ONDANSETRON 4 MG/2 ML VIAL ONE (21:32)
[2024-02-17 21:39] LABS: Absolute Lymphocytes (CBC) 1.4 K/uL (0.7-4.9); Absolute Monocytes 0.9 K/uL (0.1-1.3); Absolute Neutrophil 10.8 K/uL (1.8-8.0); Basophils % 0.3 % (0-1.3); Eosinophils % 0.2 % (0-4.4); Hematocrit 45.5 % (39.6-49.0); Hemoglobin 15.1 g/dL (13.6-17.9); Lymphocytes % 10.8 % (15.3-44.8); MCH 30.1 pg (27.0-35.0); MCHC 33.2 g/dL (32.0-36.0); MCV 90.8 fL (80-100); MPV 7.8 fL (7.6-11.3); Monocytes % 6.7 % (3.3-12.3); Nucleated Red Blood Cells % 0.1 % (0-0); Platelets 200 thou/uL (152-406); RBC Red Blood Cell Count 5.02 M/uL (4.33-5.43); Red Cell Distribution Width 13.7 % (12.1-15.2)
[2024-02-17 21:57] LABS: Albumin 3.3 g/dL (3.4-5.0); Albumin/Globulin Ratio 0.9 (1.1-1.8); Anion Gap 10.1 mEq/L (5.0-15.0); Bilirubin Total 0.6 mg/dL (0.2-1.0); Globulin 3.6 g/dL (2.3-3.5); Potassium 4.1 mEq/L (3.5-5.1); Protein, Total 6.9 g/dL (6.4-8.2)
--- NOTE | 2024-02-17 22:36 | RAD REPORT ---
EXAM DESCRIPTION: CT - Abdomen Pelvis Wo Contrast - 02/17/2024 10:13 pm CLINICAL HISTORY: Abdominal pain COMPARISON: 2022 TECHNIQUE: Computed axial tomography of the abdomen and pelvis was obtained. IV and oral contrast we re not requested. All CT scans are performed using dose optimization technique as appropriate and may include automated exposure control or mA/KV adjustment according to patient size. FINDINGS: The evaluation of solid organs, vessels and bowel is limited secondary to the lack of con trast administration. Fatty liver. Hepatic and splenic granulomata Pancreas, adrenals and right kidney grossly normal. Small left renal cyst Normal appendix. The wall of distal transverse colon, descending colon and proximal sigmoid colon is moderately with s tranding in adjacent fat compatible with colitis. Small umbilical hernia IMPRESSION: Moderate colitis
--- NOTE | 2024-02-17 23:20 | EDPHYS ---
Physician Documentation [facility] Name: Alfredo Escobar Age: 63 yrs Sex: Male : 1960 Arrival Date: 02/17/2024 Time: 20:48 Bed 7 Private MD: ED Physician El Mckeon HPI: 02/16 21:36 This 63 yrs old Male presents to ER via Wheelchair with complaints of Rectal Bleeding, rt Abdominal Pain, High Blood Pressure. 21:36 Patient with history of Crohn's disease presents to the ED with a crampy diffuse rt abdominal pain that is worse than his typical Crohn's flares. Reports bright red blood per rectum starting today. Reports nausea and vomiting. Denies other acute complaints at this time, symptoms are moderate in severity, no other aggravating or alleviating factors.. Historical: - Allergies: 21:09 Bactrim; cm10 21:09 Iodine; cm10 21:09 Keflex; cm10 21:09 Latex; cm10 21:09 Levaquin; cm10 21:09 promethazine HCl; cm10 21:09 Toradol; cm10 - PMHx: 21:09 Anxiety; Arthritis; Chronic pain; Crohn's; Crohn's; GERD; Hypertensive disorder; cm10 Pancreatitis; PTSD; - PSHx: 21:09 eye; hernia; cm10 - Immunization history:: Adult Immunizations up to date. - Infectious Disease History:: Denies. - Social history:: Smoking status: Patient denies any tobacco usage or history of. - Family history:: not pertinent. ROS: 21:36 Constitutional: Negative for fever, chills, and weight loss, Cardiovascular: Negative rt for chest pain, palpitations, and edema, Respiratory: Negative for shortness of breath, cough, wheezing, and pleuritic chest pain, MS/Extremity: Negative for injury and deformity, Skin: Negative for injury, rash, and discoloration, Neuro: Negative for headache, weakness, numbness, tingling, and seizure, 21:36 Abdomen/GI: Positive for Abdominal pain, nausea, vomiting, rectal bleeding, 21:37 Abdomen/GI: Positive for rt Exam: 21:37 Constitutional: This is a well developed, well nourished patient who is awake, alert, rt and in no acute distress. Head/Face: Normocephalic, atraumatic. Chest/axilla: Normal chest wall appearance and motion. Nontender with no deformity. No lesions are appreciated. Cardiovascular: Regular rate and rhythm with a normal S1 and S2. No gallops, murmurs, or rubs. Normal PMI, no JVD. No pulse deficits. Respiratory: Lungs have equal breath sounds bilaterally, clear to auscultation and percussion. No rales, rhonchi or wheezes noted. No increased work of breathing, no retractions or nasal flaring. Skin: Warm, dry with normal turgor. Normal color with no rashes, no lesions, and no evidence of cellulitis. MS/ Extremity: Pulses equal, no cyanosis. Neurovascular intact. Full, normal range of motion. Neuro: Awake and alert, GCS 15, oriented to person, place, time, and situation. Cranial nerves II-XII grossly intact. Motor strength 5/5 in all extremities. Sensory grossly intact. Cerebellar exam normal. Normal gait. 21:37 Abdomen/GI: Tenderness diffusely with guarding, no rebound, distention, Vital Signs: 21:08 BP 165 / 87; Pulse 78; Resp 16; Temp 99(O); Pulse Ox 98% on R/A; Weight 95.25 kg; cm10 Height 5 ft. 10 in. ; Pain 10/10; 22:41 BP 164 / 82; Pulse 62; Resp 16; Pulse Ox 99% on R/A; Pain 8/10; iw 21:08 Body Mass Index 30.13 (95.25 kg, 177.8 cm) cm10 21:08 Pain Scale: Adult cm10 22:41 Pain Scale: Adult iw MDM: 21:10 Patient medically screened. rt 23:52 Differential diagnosis: Colitis, infectious versus Crohn's disease. Data reviewed: rt vital signs, nurses notes, lab test result(s), radiologic studies. Consideration of Admission/Observation Patient was admitted/placed on observation. Management of patient was discussed with the following: Hospitalist: Agrees to admit. I considered the following discharge prescriptions or medication management in the emergency department Medications were administered in the Emergency Department. See MAR. Independent interpretation of the following test(s) in the Emergency Department CT Scan: My interpretation is No bowel obstruction seen on my interpretation of CT scan. Care significantly affected by the following chronic conditions: Crohn's disease. Counseling: I had a detailed discussion with the patient and/or guardian regarding the historical points, exam findings, and any diagnostic results supporting the discharge/admit diagnosis, lab results, radiology results, the need for further work-up and treatment in the hospital. Response to treatment: the patient's symptoms have mildly improved after treatment. ED course: I discussed transfer with the patient. He states that he has a special needs son, adamantly declines any possibility of transfer. Malignant here.. 02/16 21:17 Order name: CBC with Diff; Complete Time: 22:02 rt 02/16 21:17 Order name: CMP; Complete Time: 22:02 rt 02/16 21:17 Order name: Lipase; Complete Time: 22:02 rt 02/16 23:26 Order name: Magnesium EDMS 02/16 23:26 Order name: Phosphorus EDMS 02/16 23:26 Order name: Urinalysis w/ reflexes EDMS 02/16 23:26 Order name: Basic Metabolic Panel EDMS 02/16 23:26 Order name: Basic Metabolic Panel EDMS 02/16 23:26 Order name: CBC with Automated Diff EDMS 02/16 23:26 Order name: CBC with Automated Diff EDMS 02/16 23:29 Order name: Lactate w/ 2H reflex if indic. EDMS 02/17 01:42 Order name: C-Reactive Protein EDMS 02/16 21:17 Order name: CT Abd/Pelvis - Without Contrast; Complete Time: 22:37 rt 02/16 21:17 Order name: IV Saline Lock; Complete Time: 21:28 rt 02/16 21:17 Order name: Labs collected and sent; Complete Time: 21:28 rt Administered Medications: 21:45 Drug: NS 0.9% IV 1000 ml IV at 1 bolus Per protocol; 1000 mL bolus Route: IV; Rate: 1 iw bolus; Site: right antecubital; 02/17 00:15 Follow up: IV Status: Completed infusion iw 02/16 21:45 Drug: Ondansetron IVP 4 mg IVP once; over 2 minutes Route: IVP; Site: right antecubital;iw 22:45 Follow up: Response: No adverse reaction iw 21:45 Drug: morphine IVP or IV 2 mg IVP once over 4 mins Route: IVP; Infused Over: 4 mins; iw Site: right antecubital; 23:00 Follow up: Response: No adverse reaction; Pain is decreased iw 21:45 Drug: Dicyclomine IM 20 mg IM once Route: IM; Site: right ventrogluteal; iw 23:00 Follow up: Response: No adverse reaction iw 22:40 Drug: morphine IVP or IV 2 mg IVP once over 4 mins Route: IVP; Infused Over: 4 mins; iw Site: right antecubital; 02/17 00:00 Follow up: Response: No adverse reaction; Pain is decreased iw 00:08 Drug: MethylPrednisoLONE IVP 125 mg IVP once Route: IVP; Site: right antecubital; iw 01:00 Follow up: Response: No adverse reaction iw 00:09 Drug: Piperacillin-Tazobactam IVPB 3.375 grams IVPB once over 60 mins; (mix in NS 100 iw mL) Route: IVPB; Infused Over: 60 mins; Site: right antecubital; 00:40 Follow up: IV Status: Completed infusion iw Disposition Summary: 02/17/24 23:20 Hospitalization Ordered Notes: Hospitalization Status: Inpatient Admission rt Provider: Prince Donna rt Condition: Fair rt Problem: an acute exacerbation rt Symptoms: are unchanged rt Bed/Room Type: Standard rt Location: Telemetry/MedSurg (Inpatient)(02/18/24 01:42) cg Room Assignment: [facility](02/18/24 01:43) cg Diagnosis - Colitis rt Forms: - Medication Reconciliation Form rt - SBAR form rt - Leadership Thank You Letter rt Signatures: Dispatcher [employer] Darlene Moura RN RN iw Cheri Yeboah RN RN cg El Mckeon MD MD rt Maribell Varner RN RN cm10 Corrections: (The following items were deleted from the chart) 02/16 21:38 21:36 Abdomen/GI: Positive for Tenderness diffusely with guarding, no rebound, rt distention, rt 23:25 23:20 Telemetry/MedSurg (Inpatient) rt cg 23:25 23:20 rt cg 02/17 01:42 02/16 23:25 [facility] ER HOLD cg cg 02/17 01:42 02/16 23:25 ERHOLD- cg cg 02/17 01:43 01:42 cg cg
--- NOTE | 2024-02-17 23:20 | ER ---
Nurse's Notes [facility] Name: Alfredo Escobar Age: 63 yrs Sex: Male : 1960 Arrival Date: 02/17/2024 Time: 20:48 Bed 7 Private MD: Diagnosis: Colitis Presentation: 02/16 21:08 Chief complaint: Patient states: Abdominal cramping with bright red blood rectal cm10 bleeding onset today. Coronavirus screen: Client denies travel out of the [place] in the last 14 days. Ebola Screen: Patient denies travel to an Ebola-affected area in the 21 days before illness onset. No symptoms or risks identified at this time. Initial Sepsis Screen: Does the patient meet any 2 criteria? No. Patient's initial sepsis screen is negative. Does the patient have a suspected source of infection? No. Patient's initial sepsis screen is negative. Risk Assessment: Do you want to hurt yourself or someone else? Patient reports no desire to harm self or others. 21:08 Method Of Arrival: Wheelchair cm10 21:08 Acuity: BUCKY 3 cm10 21:09 Onset of symptoms was February 17, 2024. cm10 Triage Assessment: 21:10 General: Appears in no apparent distress. uncomfortable, Behavior is calm, cooperative. cm10 Neuro: No deficits noted. Level of Consciousness is awake, alert, obeys commands, Oriented to person, place, time, situation, Appropriate for age. Historical: - Allergies: 21:09 Bactrim; cm10 21:09 Iodine; cm10 21:09 Keflex; cm10 21:09 Latex; cm10 21:09 Levaquin; cm10 21:09 promethazine HCl; cm10 21:09 Toradol; cm10 - PMHx: 21:09 Anxiety; Arthritis; Chronic pain; Crohn's; Crohn's; GERD; Hypertensive disorder; cm10 Pancreatitis; PTSD; - PSHx: 21:09 eye; hernia; cm10 - Immunization history:: Adult Immunizations up to date. - Infectious Disease History:: Denies. - Social history:: Smoking status: Patient denies any tobacco usage or history of. - Family history:: not pertinent. Screenin:[facility] ED Fall Risk Assessment (Adult) History of falling in the last 3 months, iw including since admission No falls in past 3 months (0 pts) Confusion or Disorientation No (0 pts) Intoxicated or Sedated No (0 pts) Impaired Gait No (0 pts) Mobility Assist Device Used No (0 pt) Altered Elimination No (0 pt) Score/Fall Risk Level 0 - 2 = Low Risk Oriented to surroundings, Maintained a safe environment. Abuse screen: Denies injuries from another. Nutritional screening: No deficits noted. Tuberculosis screening: No symptoms or risk factors identified. Assessment: 21:45 General: Appears in no apparent distress. uncomfortable, Behavior is calm, cooperative. iw Pain: Complains of pain in suprapubic area, right lower quadrant and left lower quadrant Pain currently is 8 out of 10 on a pain scale. Alleviated by sitting up. Neuro: Level of Consciousness is awake, alert, obeys commands, Oriented to person, place, time, situation, Moves all extremities. Full function. Cardiovascular: Patient's skin is warm and dry. Respiratory: Respiratory effort is even, unlabored, Respiratory pattern is regular, symmetrical. GI: Abdomen is non-distended, Bowel sounds present X 4 quads. Abd is soft X 4 quads Abdomen is tender to palpation in right lower quadrant and left lower quadrant Reports lower abdominal pain, rectal bleeding, nausea. Derm: Skin is intact, is healthy with good turgor. Musculoskeletal: Range of motion: intact in all extremities. 22:21 Reassessment: Patient appears in no apparent distress at this time. Patient and/or iw family updated on plan of care and expected duration. Pain level reassessed. pt ambulatory to bathroom with steady gait, reports bright red blood. Vital Signs: 21:08 BP 165 / 87; Pulse 78; Resp 16; Temp 99(O); Pulse Ox 98% on R/A; Weight 95.25 kg; cm10 Height 5 ft. 10 in. ; Pain 10/10; 22:41 BP 164 / 82; Pulse 62; Resp 16; Pulse Ox 99% on R/A; Pain 8/10; iw 21:08 Body Mass Index 30.13 (95.25 kg, 177.8 cm) cm10 21:08 Pain Scale: Adult cm10 22:41 Pain Scale: Adult iw ED Course: 20:51 Patient arrived in ED. gm2 21:07 Darlene Mo, RN is Primary Nurse. iw 21:09 Triage completed. cm10 21:10 El Mckeon MD is Attending Physician. rt 21:10 Arm band placed on Patient placed in an exam room, on a stretcher. cm10 21:50 Patient has correct armband on for positive identification. Provided Education on: . iw 21:50 Initial lab(s) drawn, by me, sent to lab. Inserted saline lock: 20 gauge in right iw antecubital area, using aseptic technique. Blood collected. Flushed with 10 mL NS. 22:15 CT Abd/Pelvis - Without Contrast In Process Unspecified. EDMS 23:04 Diet: Patient given juice. Tolerated well. jj7 23:19 Prince Thompson MD is Hospitalizing Provider. rt 02/17 02:40 No provider procedures requiring assistance completed. Patient admitted, IV remains in iw place. Administered Medications: 02/16 21:45 Drug: NS 0.9% IV 1000 ml IV at 1 bolus Per protocol; 1000 mL bolus Route: IV; Rate: 1 iw bolus; Site: right antecubital; 02/17 00:15 Follow up: IV Status: Completed infusion iw 02/16 21:45 Drug: Ondansetron IVP 4 mg IVP once; over 2 minutes Route: IVP; Site: right antecubital;iw 22:45 Follow up: Response: No adverse reaction iw 21:45 Drug: morphine IVP or IV 2 mg IVP once over 4 mins Route: IVP; Infused Over: 4 mins; iw Site: right antecubital; 23:00 Follow up: Response: No adverse reaction; Pain is decreased iw 21:45 Drug: Dicyclomine IM 20 mg IM once Route: IM; Site: right ventrogluteal; iw 23:00 Follow up: Response: No adverse reaction iw 22:40 Drug: morphine IVP or IV 2 mg IVP once over 4 mins Route: IVP; Infused Over: 4 mins; iw Site: right antecubital; 02/17 00:00 Follow up: Response: No adverse reaction; Pain is decreased iw 00:08 Drug: MethylPrednisoLONE IVP 125 mg IVP once Route: IVP; Site: right antecubital; iw 01:00 Follow up: Response: No adverse reaction iw 00:09 Drug: Piperacillin-Tazobactam IVPB 3.375 grams IVPB once over 60 mins; (mix in NS 100 iw mL) Route: IVPB; Infused Over: 60 mins; Site: right antecubital; 00:40 Follow up: IV Status: Completed infusion iw Medication: 02/16 21:50 VIS not applicable for this client. iw Outcome: 23:20 Decision to Hospitalize by Provider. rt 02/17 02:49 Patient left the ED. iw 02:49 Admitted to Med/surg accompanied by tech, via wheelchair, iw 02:49 Condition: good 02:49 Instructed on the need for admit, Signatures: Dispatcher [employer] EDDarlene Villanueva RN RN iw Cristela Shields RN RN jj7 El Mckeon MD MD rt Maribell Varner RN RN cm10 Porsche Ceballos 2
[2024-02-17] MEDS ORDERED: ACETAMINOPHEN 500 MG TAB PO PRN (23:21)
[2024-02-17] MEDS ORDERED: PIPERACIL/TAZO 3.375 GM VIAL IV ONE (23:38)
[2024-02-17] MEDS ORDERED: METHYLPREDNISOLONE 125 MG INJ ONE (23:38)
[2024-02-17] MEDS ORDERED: NA CHLORIDE 0.9% 100 ML ONE (23:39)
[2024-02-17] MEDS: PIPER TAZO 3.375 GM in NA CHLORIDE 0.9% 100 ML IV ONE (23:45)
--- NOTE | 2024-02-17 23:58 | P.HP ---
Certification for Inpatient Patient admitted to: Inpatient With expected LOS: >2 Midnights Practitioner: I am a practitioner with admitting privileges, knowledge of patient current condition, hospital course, and medical plan of care. Services: Services provided to patient in accordance with Admission requirements found in Title 42 Section 412.3 of the Code of Federal Regulations Patient History Date of Service: 02/18/24 Reason for admission: Abdominal pain History of Present Illness: Patient is a 63 year old male with a PMH of Crohn's disease. He is presenting to the ER with acutely worsening diffuse abdominal pain. He is describing it as abdominal cramps. Associated symptoms include hematochezia. Patient is on low dose ASA at home. Denies being on anticoagulation or other anti-platelets. CT A/P showed colitis. Patient was offered to be transferred to a high level of care due to GI evaluation. He declines due to his special need son, who was at bedside with him. Patient has daughter who just had a child and wouldn't be able to care for his son. Allergies cephalexin monohydrate [From Keflex] Allergy (Verified 07/18/21 05:10) SWELLING iodine Allergy (Verified 07/18/21 05:10) Unknown ketorolac Allergy (Verified 07/18/21 05:10) Unknown ketorolac tromethamine [From Toradol] Allergy (Verified 07/18/21 05:10) SWELLING levofloxacin [From Levaquin] Allergy (Verified 07/18/21 05:10) SWELLING promethazine HCl [From Phenergan] Allergy (Verified 07/18/21 05:10) SWELLING Sulfa (Sulfonamide Antibiotics) Allergy (Verified 07/18/21 05:10) Unknown sulfamethoxazole [From Bactrim] Allergy (Verified 07/18/21 05:10) SWELING trimethoprim [From Bactrim] Allergy (Verified 07/18/21 05:10) SWELING vancomycin Allergy (Verified 07/18/21 05:10) Unknown Latex, [place] Allergy (Uncoded 10/24/15 04:47) Unknown levofloxacin Allergy (Uncoded 05/13/14 13:05) Unknown Home Medications: Albuterol Sulfate [Proair Hfa] 2 puff IH TID PRN 07/18/21 Carvedilol [Coreg] 0.5 tab PO BID 07/18/21 Ciprofloxacin HCl [Cipro 500 MG Tablet] 500 mg PO BID #10 tab 07/18/21 Hydrocodone 5/APAP 325 [[place] 5/325] 1 tab PO Q6H PRN #20 tab 07/18/21 clonazePAM [Clonazepam] 0.5 tab PO BID 07/18/21 metroNIDAZOLE [Flagyl] 500 mg PO Q8H #15 tablet 07/18/21 predniSONE [Deltasone] 20 mg PO DAILY #5 tab 07/18/21 - Past Medical/Surgical History Diabetic: No -: GERD -: HTN -: chronic pancreatitis -: Crohn's -: PTSD -: Psoriatic Arthritis -: anxiety -: polyp removal -: hernia repair - Social History Alcohol use: No CD- Drugs: No Caffeine use: No Physical Examination - Physical Exam General: Moderate distress HEENT: Atraumatic, Normocephalic Neck: Supple Respiratory: Clear to auscultation bilaterally, Normal air movement Cardiovascular: No edema, Normal pulses, Regular rate/rhythm, Normal S1 S2 Gastrointestinal: Tenderness Neurological: Normal speech - Studies Laboratory Data (last 24 hrs) 02/17/24 02/17/24 21:24 21:24 WBC 13.20 H Hgb 15.1 Hct 45.5 Plt Count 200 Sodium 136 Potassium 4.1 BUN 14 Creatinine 0.82 Glucose 116 H Total Bilirubin 0.6 AST 15 ALT 29 Alkaline Phosphatase 71 Lipase 35 Assessment and Plan - Problems (Diagnosis) (1) Hematochezia Current Visit: No Status: Acute (2) Lower GI bleed Current Visit: No Status: Acute (3) Crohn's disease Onset Date: 05/14/18 Current Visit: No Status: Chronic Qualifiers: (4) HTN (hypertension) Current Visit: No Status: Chronic Qualifiers: (5) Psoriatic arthritis Onset Date: 05/14/18 Current Visit: No Status: Chronic - Plan Assessment Patient is a 63 year old Crohn's disease complicated by SBO. He is being admitted for abdominal pain and hematochezia. This seems to be another IBD flare. His presenting Hb is 15. CT abdomemen and pelvis shows diffuse moderate colitis involving the transverse colon, descending and sigmoid colon. Crohn's disease - possibly an exacerbation Colitis HTN Psoriatric arthritis PLAN: Admit inpatient Start patient on IV fluid, ZOSYN Also started on solu-medrol GI ppx with IV pantoprazole MMP regimen Check for c. difficile and stool cx including ova/parasites Curbside GI if possible Resume home medications upon reconciliation Patient is full code - Advance Directives Does patient have a Living Will: No Does patient have a Durable POA for Healthcare: No
[2024-02-18] MEDS ORDERED: SODIUM CHLORIDE 0.9% 10ML INJ IV PRN (00:05)
[2024-02-18 01:26] LABS: Phosphorus 2.7 mg/dL (2.5-4.9)
[2024-02-18] MEDS: D5 0.45 NS 1,000 ML IV SCH (03:13)
[2024-02-18] MEDS: PANTOPRAZOLE 40 MG INJ IVP SCH (03:16)
[2024-02-18 03:24] VITALS: BMI 31.2
[2024-02-18] MEDS: HYDROMORPHONE HCL 1 MG/ML INJ IV PRN (03:34)
[2024-02-18] MEDS: ONDANSETRON 4 MG/2 ML VIAL IV PRN (03:34)
[2024-02-18 05:14] LABS: Specific Gravity 1.008 (1.005-1.030); Sqamous Epithelial None Seen /HPF (None Seen); Urine Bacteria None Seen /HPF (<20); Urine Bilirubin NEGATIVE (Negative); Urine Blood Trace (Negative); Urine Clarity Clear (Clear); Urine Color Colorless (Yellow); Urine Culture Reflex Order NOT NEEDED; Urine Glucose NEGATIVE (Negative); Urine Ketones NEGATIVE (Negative); Urine Microscopic Reflex YN ORDER UMIC; Urine Nitrite NEGATIVE (Negative); Urine Protein NEGATIVE (Negative); Urine RBC <5 /HPF (None Seen); Urine Urobilinogen Normal (Normal); Urine WBC <5 /HPF (<5); Urine pH 5.5 (5.0-7.0)
[2024-02-18] MEDS: PIPER TAZO 3.375 GM in NA CHLORIDE 0.9% 100 ML IV SCH (07:51)
[2024-02-18] MEDS: METHYLPREDNISOLONE 125 MG INJ IV SCH (07:51)
[2024-02-18] MEDS: ENOXAPARIN 40 MG/0.4 ML SQ SCH (07:52)
[2024-02-18 08:09] LABS: Absolute Lymphocytes (CBC) 0.8 K/uL (0.7-4.9); Absolute Monocytes 0.1 K/uL (0.1-1.3); Absolute Neutrophil 12.2 K/uL (1.8-8.0); Basophils % 0.2 % (0-1.3); Hematocrit 45.1 % (39.6-49.0); Lymphocytes % 6.4 % (15.3-44.8); MCH 30.2 pg (27.0-35.0); MCHC 33.2 g/dL (32.0-36.0); MPV 8.4 fL (7.6-11.3); Monocytes % 0.9 % (3.3-12.3); Neutrophils % 92.5 % (41.7-73.7); Platelets 188 thou/uL (152-406); RBC Red Blood Cell Count 4.95 M/uL (4.33-5.43); Red Cell Distribution Width 13.6 % (12.1-15.2)
[2024-02-18 08:12] LABS: C.diff Antigen/Toxin Ag neg : Tox neg (NEG : NEG); CDIFF INTERNAL NEG CONTROL White Background (WHITE BKGD); STOOL CONSISTENCY Liquid/Semi-Solid
[2024-02-18 09:20] LABS: Blood Morphology Comment NOT SEEN (NOT SEEN); Platelet Estimate ADEQ; White Blood Cell Scan OK (OK)
--- NOTE | 2024-02-18 11:31 | P.PN ---
Subjective Date of Service: 02/18/24 Chief Complaint: Abdominal pain Pt is laying on his left side due to abdomin pain. He just passed bright red blood per rectum. Pt refused to be transferred because is a single parent with an autistic son. Hgb is 15.1. We will have GI service tomorrow. No other complaints. Review of Systems General: Unremarkable Eyes: Unremarkable ENT: Unremarkable Respiratory: Unremarkable Cardiovascular: Unremarkable Gastrointestinal: Abdominal Pain, Hematochezia Genitourinary: Unremarkable Musculoskeletal: Unremarkable Integumentary: Unremarkable Neurological: Unremarkable Lymphatics: Unremarkable Physical Examination - Vital Signs Temperature: 98 F Blood Pressure: 145/87 Pulse: 88 Respirations: 18 Pulse Ox (%): 94 - Physical Exam General: Alert, In no apparent distress, Oriented x3 HEENT: Atraumatic, Normocephalic, PERRLA Neck: Supple, 2+ carotid pulse no bruit Respiratory: Clear to auscultation bilaterally, Normal air movement Cardiovascular: No edema, Normal pulses, Regular rate/rhythm, Normal S1 S2 Capillary refill: <2 Seconds Gastrointestinal: Normal bowel sounds, Soft and benign, Non-distended Musculoskeletal: No clubbing, No swelling, No contractures Integumentary: No rashes, No breakdown, No significant lesion, No tenderness/swelling Neurological: Normal gait, Normal speech, Normal strength at 5/5 x4 extr Lymphatics: No axilla or inguinal lymphadenopathy - Studies Laboratory Data (last 24 hrs) 02/17/24 02/17/24 02/17/24 21:24 21:24 21:24 WBC 13.20 H Hgb 15.1 Hct 45.5 Plt Count 200 Sodium 136 Potassium 4.1 BUN 14 Creatinine 0.82 Glucose 116 H Phosphorus 2.7 Magnesium 2.0 Total Bilirubin 0.6 AST 15 ALT 29 Alkaline Phosphatase 71 Lipase 35 Assessment And Plan - Plan Crohn's disease flare: CT abd/pelvis shows colitis. Will continue solumedrol, IVF and prn pain med. GI beed: Hgb is 15.1. Will monitor H/H. transfuse when Hgb < 7. Colitis: Will continue iv zosyn and f/u C diff, stool ova/parasite and blood cx. HTN: Continue home med Psoriatric arthritis: Continue home med. GI ppx: protonix DVT ppx: SCD Code: full Dispo: Pending hospital course.
[2024-02-19] MEDS: PROMETHAZINE INJ 25 MG/ML AMP IV PRN (00:49)
[2024-02-19] MEDS: PANTOPRAZOLE 40 MG INJ IVP SCH (08:12)
[2024-02-19 08:38] LABS: Absolute Lymphocytes (CBC) 2.1 K/uL (0.7-4.9); Absolute Monocytes 2.1 K/uL (0.1-1.3); Absolute Neutrophil 17.2 K/uL (1.8-8.0); Basophils % 0.2 % (0-1.3); Eosinophils % 0.1 % (0-4.4); Hematocrit 41.4 % (39.6-49.0); Hemoglobin 13.8 g/dL (13.6-17.9); Lymphocytes % 9.8 % (15.3-44.8); MCH 30.5 pg (27.0-35.0); MCHC 33.4 g/dL (32.0-36.0); MCV 91.5 fL (80-100); MPV 7.7 fL (7.6-11.3); Monocytes % 9.8 % (3.3-12.3); Neutrophils % 80.1 % (41.7-73.7); Platelets 190 thou/uL (152-406); RBC Red Blood Cell Count 4.53 M/uL (4.33-5.43); Red Cell Distribution Width 13.9 % (12.1-15.2)
[2024-02-19 08:56] VITALS: O2SAT 98
[2024-02-19] MEDS ORDERED: PIPER TAZO 3.375 GM in NA CHLORIDE 0.9% 100 ML IV SCH (09:00)
[2024-02-19 09:02] LABS: Anion Gap 7.2 mEq/L (5.0-15.0); Potassium 4.2 mEq/L (3.5-5.1)
[2024-02-19 09:06] LABS: Band Neutrophils 2 % (0-1); Blood Morphology Comment NOT SEEN (NOT SEEN); Differential Total Cells Count 100; Lymphocytes 11 % (15-42); Monocytes 7 % (0-10); Platelet Estimate DECR; Segmented Neutrophils 80 % (40-80); Toxic Granulation 1+
--- NOTE | 2024-02-19 09:53 | P.PN ---
Subjective Date of Service: 02/19/24 Chief Complaint: Abdominal pain Pt is laying on his left side due to abdomin pain. He passed bright red blood per rectum on 12/18/23. Pt refused to be transferred because is a single parent with an autistic son. Hgb is 13.8< - 15.1. Waiting for GI eval. WBc is 21 due to setroid. No other complaints. Review of Systems General: Unremarkable Eyes: Unremarkable ENT: Unremarkable Respiratory: Unremarkable Cardiovascular: Unremarkable Gastrointestinal: Unremarkable Genitourinary: Unremarkable Musculoskeletal: Unremarkable Integumentary: Unremarkable Neurological: Unremarkable Lymphatics: Unremarkable Physical Examination - Vital Signs Temperature: 96.9 F Blood Pressure: 143/69 Pulse: 58 Respirations: 16 Pulse Ox (%): 98 - Physical Exam General: Alert, In no apparent distress, Oriented x3 HEENT: Atraumatic, Normocephalic, PERRLA Neck: Supple, 2+ carotid pulse no bruit Respiratory: Clear to auscultation bilaterally, Normal air movement Cardiovascular: No edema, Normal pulses, Regular rate/rhythm, Normal S1 S2 Capillary refill: <2 Seconds Gastrointestinal: Normal bowel sounds, Soft and benign, Non-distended Musculoskeletal: No clubbing, No swelling, No contractures Integumentary: No rashes, No breakdown, No significant lesion Neurological: Normal gait, Normal speech, Normal strength at 5/5 x4 extr Lymphatics: No axilla or inguinal lymphadenopathy Assessment And Plan - Plan Crohn's disease flare: CT abd/pelvis shows moderate colitis. Will continue solumedrol, IVF and prn pain med. CT abd shows moderate colitis GI beed: resolved. Hgb is 13.8<- 15.1. Will monitor H/H. transfuse when Hgb < 7. Consulted GI Colitis: Will continue iv zosyn and f/u stool ova/parasite and blood cx. C diff is negative. Leukocytosis: 21.9. Due to steroid. Will monitor. HTN: Continue home med Psoriatric arthritis: Continue home med. GI ppx: protonix DVT ppx: SCD Code: full Dispo: Pending hospital course.
[2024-02-20] MEDS: HYDRALAZINE HCL 20 MG/ML VIAL IV ONE (06:31)
[2024-02-20 07:42] LABS: Absolute Lymphocytes (CBC) 2.8 K/uL (0.7-4.9); Absolute Monocytes 2.2 K/uL (0.1-1.3); Absolute Neutrophil 17.6 K/uL (1.8-8.0); Basophils % 0.2 % (0-1.3); Hematocrit 40.3 % (39.6-49.0); Hemoglobin 13.7 g/dL (13.6-17.9); Lymphocytes % 12.4 % (15.3-44.8); MCH 30.8 pg (27.0-35.0); MCHC 34.1 g/dL (32.0-36.0); MCV 90.5 fL (80-100); MPV 8.2 fL (7.6-11.3); Monocytes % 9.7 % (3.3-12.3); Neutrophils % 77.7 % (41.7-73.7); Nucleated Red Blood Cells % 0.1 % (0-0); Platelets 187 thou/uL (152-406); RBC Red Blood Cell Count 4.46 M/uL (4.33-5.43); Red Cell Distribution Width 13.8 % (12.1-15.2)
[2024-02-20 07:47] LABS: Anion Gap 6.6 mEq/L (5.0-15.0); Potassium 3.6 mEq/L (3.5-5.1)
[2024-02-20] MEDS: POTASSIUM CL SA 10 MEQ TAB PO ONE (09:10)
[2024-02-20] MEDS: clonazePAM 0.5 MG TAB PO ONE (09:10)
[2024-02-20] MEDS ORDERED: clonazePAM 0.5 MG TAB PO PRN (11:00)
[2024-02-20] MEDS ORDERED: HYDROCODONE/APAP 10/325 TAB PO PRN (17:32)
[2024-02-20] MEDS ORDERED: HYDROMORPHONE HCL 0.5 MG/0.5 ML INJ IV PRN (17:33)
[2024-02-20 20:26] VITALS: BP 182/92; TEMP 97.9
== END 2024-02-20 20:27 | disposition left against medical advice (07) | DRG 378 ==
LOC: ER 20:48 → ERHOLD 23:21 → 4TH 02-18 02:32
PROVIDERS: ADMIT Nurse Practitioner; ATTEND Hospitalist
DX: K92.1 Melena (principal); K50.012 Crohn's disease of small intestine with intestinal obstruction; I10 Essential (primary) hypertension; F43.10 Post-traumatic stress disorder, unspecified; L40.50 Arthropathic psoriasis, unspecified; K21.9 Gastro-esophageal reflux disease without esophagitis; K52.9 Noninfective gastroenteritis and colitis, unspecified; Z88.5 Allergy status to narcotic agent; Z88.1 Allergy status to other antibiotic agents; Z88.8 Allergy status to other drugs, medicaments and biological substances; Z79.52 Long term (current) use of systemic steroids; Z53.29 Procedure and treatment not carried out because of patient's decision for other reasons; Z79.02 Long term (current) use of antithrombotics/antiplatelets; Z91.040 Latex allergy status; Z79.899 Other long term (current) drug therapy
CPT/HCPCS: 36415; 74176; 80048; 80053; 81001; 82947; 83605; 83690; 83735; 84100; 85025; 86140; 87045; 87046; 87177; 87209; 87324; 96361; 96365; 96372; 96375; 99285; J0360; J0500; J1170; J2270; J2405; J2470; J2543; J2550; J2919; J7030; J7799

== ENCOUNTER 2024-03-05 00:29 | Emergency (ER) | payer OTHER ==
--- OUTSIDE RECORDS SUMMARY | 2024-03-05 00:33 | XMS REPORT | Continuity of Care Document ---
Author Name Unknown Address [address] [place] [address] [facility] thconnect Address [address] [place] [address] Care Team Providers Care [employer] Manager Name Role Phone Unknown, Physician Primary Care Physician UnaReese Stallings Attending Clinician Unavailable Fernanda Lockwood Attending Clinician Unavailable ROBBIN CARROLL Attending Clinician Unavailable Robbin Carroll MD Attending Clinician [phone] Team, [facility] Health Maintenance Attending Roger graham Unavailable Robbin Carroll MD Attending Clinician [phone] INA MIKE Attending Clinician Briana Ina Nolan MD Attending Clinician Lab, [facility] [place] Attending Clinician Unavailable WARD SANTOS Attending Clinician Unavailalbert CALDERAShania S Attending Clinician Doctor Unassigned, [place] Attending Clinician U navailable Ajibade_O_AH Attending Clinician Unavailable Ige-Soniunkira_J_AH Attending Clinician Unavailable LUCHO ALFARO Attending Clinician Unavailable Lucho Alfaro NP Attending Clinician Ajibade_O_AH Admitting Clinician Unavailable Ige-Jerica_Skylar_AH Admitting Clinician Unavailable LUCHO ALFARO Admitting Clinician Unavailable Payers Payer Name Policy Type Policy Number Effective Date Expirati on Date Source WELLCARE/WELLCA RE [place] [id number] 2021 00:00:00 [facility] MCR Advantage PPO 53 [id number] [facility] WellCare [facility] C1 [id number] [facility] C1 [id number] [facility] Wellcare C1 [id number] [facility] WELL[place]ARE OF [place] (MEDICARE REPLACEMENT/ADV ANTAGE - HMO) [id number] 2019 00:00:00 Problems Condition Name Condition Details Condition Category Status Onset Date Resolution Date Last Treatment Date Treating Clinician Comments Source Acute midline low back pain with bilateral sciatica Acute midline low back pain with bilateral sciatica Disease Active 10-02 00:00: 00 [facility] Medicare annual wellness visit, subsequent Medicare annual wellness visit, subsequent Disease Active 10-02 00:00: 00 [facility] Chronic pain syndrome Chronic pain syndrome Disease Active 07-04 00:00: 00 [facility] Anxiety Anxiety Disease Active 07-04 00:00: 00 [facility] Crohn's disease of both small and large intestine with other complicati on Crohn's disease of both small and large intestine with other complicati on Disease Active 07-04 00:00: 00 [facility] Low HDL (under 40) Low HDL (under 40) Disease Active 07-04 00:00: 00 [facility] Nocturia Nocturia Disease Active 07-04 00:00: 00 [facility] Chronic pancreatit is Chronic pancreatit is Disease Active 2022-06 00:00: 00 [facility] Psoriatic arthritis Psoriatic arthritis Disease Active 2022-06 00:00: 00 [facility] Primary hypertensi on Primary hypertensi on Disease Active 2022-06 00:00: 00 [facility] Other specified glaucoma Other specified glaucoma Disease Active 2022-06 00:00: 00 [facility] Gastroesop hageal reflux disease without esophagiti s Gastroesop hageal reflux disease without esophagiti s Disease Active 2022-06 00:00: 00 [facility] PTSD (post-trau matic stress disorder) PTSD (post-trau matic stress disorder) Disease Active 2022-06 00:00: 00 [facility] No known active problems No known active problems Disease [facility] Memory impairment (finding) Memory impairment (finding) Active Problem 04/22/2019 [facility] Problem Active 2019-04-22 01:06:38 Memoria l Evan Total retinal detachment Total retinal detachment , right eye Problem [facility] [id number] Acute upper respirator y infection Problem [facility] [id number] Abnormal blood sugar Problem [facility] [id number] Hyperglyce alex Problem [facility] [id number] Generalize d anxiety disorder Problem [facility] [id number] Diverticul osis Problem [facility] [id number] BPH loc w/o ur obs/LUTS Problem [facility] [id number] Arthropath ic psoriasis Problem [facility] [id number] Crohn''s disease without complicati on, unspecifie d gastrointe stinal tract location Problem [facility] [id number] Chronic fatigue Problem [facility] [id number] Cervical spondylosi s without myelopathy Problem [facility] [id number] BMI 29.0-29.9, adult Problem [facility] [id number] Nausea Problem [facility] [id number] Lumbar sprain, initial encounter Problem [facility] [id number] Wheezing Problem [facility] Neck pain (finding) Neck pain (finding) Active Problem 04/22/2019 [facility] Problem Active 2019-04-22 01:06:38 Dieudonne Gordon [id number] Hospital discharge follow-up Problem [facility] [id number] Acute tonsilliti s, unspecifie d etiology Problem [facility] [id number] Panic disorder with agoraphobi a Problem [facility] [id number] Asymptomat ic microscopi c hematuria Problem [facility] [id number] Constipati on, unspecifie d constipati on type Problem [facility] [id number] Carotid artery disease, unspecifie d laterality , unspecifie d type Problem [facility] [id number] Right epididymit is Problem [facility] [id number] Prostate nodule Problem [facility] [id number] Narcolepsy without cataplexy Problem [facility] 11578526 Pelvic pain Problem [facility] [id number] Disc disorder Problem [facility] [id number] Perineal pain Problem [facility] 62886201 Scrotum pain Problem [facility] [id number] BPH loc w urin obs/LUTS Problem [facility] [id number] Chronic prostatiti s Problem [facility] Paresthesi a (finding) Paresthesi a (finding) Active [...] Sulfamet hoxazole Allergy to substanc e Active 2 00:00: 00 Other reaction( s): SWELING [facility] Trimetho prim Allergy to substanc e Active 07-18 00:00: 00 Other reaction( s): SWELING [facility] Trimetho prim Drug Allergy Active Other - See comments 07-18 00:00: 00 Other reaction( s): SWELING [facility] Vancomyc in Drug Allergy Active Other - See comments 07-18 00:00: 00 Other reaction( s): Unknown [facility] TRIMETHO PRIM DRUG INGREDI Active Other-Cmnt 2 00:00: 00 [facility] VANCOMYC IN DRUG INGREDI Active Other-Cmnt 07-18 00:00: 00 [facility] Vancomyc in Allergy to substanc e Active 07-18 00:00: 00 Other reaction( s): Unknown [facility] Ketorola c Allergy to substanc e Active 2- 00:00: 00 Other reaction( s): Unknown [facility] Sulfamet hoxazole -Trimeth oprim Drug Allergy Active Rash 06-27 00:00: 00 Other reaction( s): rash [facility] PROMETHA ZINE DRUG INGREDI Active Other-Cmnt - 00:00: 00 [facility] CEPHALEX IN DRUG INGREDI Active Low Rash 06-27 00:00: 00 [facility] SULFAMET HOXAZOLE -TRIMETH OPRIM DRUG Active Low Rash 06-27 00:00: 00 [facility] Cephalex in Drug Allergy Active Rash 06-27 00:00: 00 Other reaction( s): rash, SWELLING [facility] Prometha zine Drug Allergy Active Other - See comments 06-27 00:00: 00 Other reaction( s): hives, hives, SWELLING [facility] Prometha zine Allergy to substanc e Active 06-27 00:00: 00 Other reaction( s): hives, hives, SWELLING [facility] Sulfamet hoxazole -Trimeth oprim Allergy to substanc e Active Rash 06-27 00:00: 00 Other reaction( s): rash [facility] Cephalex in Allergy to substanc e Active Rash 06-27 00:00: 00 Other reaction( s): rash, SWELLING [facility] Iodides Propensi ty to adverse reaction s Active Hives 12-06 00:00: 00 [facility] Latex Propensi ty to adverse reaction s Active Rash 12-06 00:00: 00 [facility] Levoflox acin Propensi ty to adverse reaction s Active Anaphylaxis 12-06 00:00: 00 [facility] Ketorola c Trometha mine Propensi ty to adverse reaction s Active Other - See comments 12-06 00:00: 00 Pin needle pains to stomach [facility] IODIDES DRUG Active Hives 12-06 00:00: 00 [facility] LATEX DRUG INGREDI Active Rash 12-06 00:00: 00 [facility] LEVOFLOX ACIN DRUG INGREDI Active Anaphylaxis 12-06 00:00: 00 [facility] KETOROLA C TROMETHA MINE DRUG INGREDI Active Other-Cmnt 12-06 00:00: 00 [facility] Ketorola c Trometha mine Allergy to substanc e Active 12-06 00:00: 00 Other reaction( s): Other - See comments, SWELLINGP in needle pains to stomach [facility] Latex Allergy to substanc e Active Rash 12-06 00:00: 00 [facility] Iodides Allergy to substanc e Active Hives 12-06 00:00: 00 Other reaction( s): Unknown [facility] Iodides Allergy to substanc e Active Hives 12-06 00:00: 00 Other reaction( s): Unknown [facility] Levoflox acin Allergy to substanc e Active Anaphylaxis 2013-06 00:00: 00 Other reaction( s): stops breathing , SWELLING, Unknown [facility] 8091 Drug allergy Active rash [facility] 79263 Drug allergy Active stops breathing [facility] Social History Social Habit Start Date Stop Date Quantity Comments Source [facility] Use [facility] Alcohol intake 2023-10-03 00:00:00 2023-10-03 00:00:00 Ex-drinker (finding) [facility] History of Social function 2023-10-03 00:00:00 2023-10-03 00:00:00 [facility] Alcoholic beverage intake 2023-10-03 00:00:00 2023-10-03 00:00:00 Ex-drinker (finding) [facility] Tobacco use and exposure 2023-04-12 00:00:00 2023-04-12 00:00:00 Smokeless tobacco non-user [facility] Exposure to SARS-CoV-2 (event) 2022-05-02 00:00:00 2022-05-12 11:32:00 Not sure [facility] Sex Assigned At 1960 00:00:00 1960 00:00:00 [facility] Smoking Status Start Date Stop Date Source Tobacco smoking consumption unknown [facility] Never smoked tobacco [facility] Social History 2019-03-28 18:18:16 2019-03-28 18:18:16 [facility] Medications Ordered Medication Name Filled Medication Name Start Date Stop Date Current Medication? Ordering Clinician Indication Dosage Frequency Signature (SIG) Comments Components Source DULoxetine 30 mg capsule 10-02 00:00: 00 Yes [id number] 30mg Take 1 capsule by mouth in the morning. [facility] carvediloL 25 mg tablet 10-02 00:00: 00 Yes [id number] 25mg Take 1 tablet by mouth in the morning and 1 tablet in the evening. Take with meals. [facility] Amylase-Lip ase-Proteas e (CREON) 24,000-76,0 00 -120,000 unit capsule 10-02 00:00: 00 Yes [id number] 28620T Take 1 capsule by mouth in the morning and 1 capsule at noon and 1 capsule in the evening. Take with meals. [facility] pantoprazol e 40 mg EC tablet 10-02 00:00: 00 Yes [id number] 40mg Take 1 tablet by mouth in the morning. [facility] ondansetron 4 mg tablet 10-02 00:00: 00 Yes [id number] 4mg Take 1 tablet by mouth every 6 (six) hours as needed for Nausea and Vomiting (N/V). [facility] albuterol (VENTOLIN HFA) 90 mcg/actuati on inhaler 07-04 14:23: 05 07-04 00:00 :00 No 2{puff} Inhale 2 Puffs every 6 (six) hours as needed for Wheezing or Shortness of Breath. [facility] albuterol 90 mcg/actuati on inhaler 07-04 14:22: 58 07-04 00:00 :00 No 2{puff} Inhale 2 Puffs every 6 (six) hours as needed for Wheezing or Shortness of Breath. [facility] Amylase-Lip ase-Proteas e (CREON) 24,000-76,0 00 -120,000 unit capsule 07-04 14:22: 27 07-04 00:00 :00 No [id number] Take 1 capsule by mouth in the morning and 1 capsule at noon and 1 capsule in the evening. Take with meals. [facility] carvediloL 25 mg tablet 07-04 00:00: 00 10-02 00:00 :00 No [id number] 25mg Take 1 tablet by mouth in the morning and 1 tablet in the evening. Take with meals. [facility] DULoxetine 30 mg capsule 07-04 00:00: 00 10-02 00:00 :00 No [id number] 30mg Take 1 capsule by mouth in the morning. [facility] pantoprazol e 40 mg EC tablet 07-04 00:00: 00 10-02 00:00 :00 No [id number] 40mg Take 1 tablet by mouth in the morning. [facility] ondansetron 4 mg tablet 07-04 00:00: 00 10-02 00:00 :00 No [id number] 4mg Take 1 tablet by mouth every 6 (six) hours as needed for Nausea and Vomiting (N/V). [facility] Amylase-Lip ase-Proteas e (CREON) 24,000-76,0 00 -120,000 unit capsule 07-04 00:00: 00 10-02 00:00 :00 No [id number] 50274S Take 1 capsule by mouth in the morning and 1 capsule at noon and 1 capsule in the evening. Take with meals. [facility] carvedilol (COREG) 25 mg tablet 2022-06 15:04: 39 04-12 00:00 :00 No 25mg Take 1 tablet by mouth in the morning and 1 tablet in the evening. Take with meals. [facility] predniSONE 20 mg tablet 2022-06 14:43: 26 04-12 00:00 :00 No 20mg Take 1 tablet by mouth in the morning. [facility] Amylase-Lip ase-Proteas e (CREON) 24,000-76,0 00 -120,000 unit capsule 2022-06 14:26: 48 Yes [id number] Take 1 capsule by mouth in the morning and 1 capsule at noon and 1 capsule in the evening. Take with meals. [facility] albuterol 90 mcg/actuati on inhaler 2022-06 14:26: 48 Yes 2{puff} Inhale 2 Puffs every 6 (six) hours as needed for Wheezing or Shortness of Breath. [facility] blood sugar diagnostic (ONE TOUCH TEST MISC) 2022-06 14:26: 48 Yes One touch ultra blue test strip [facility] HYDROcodone -acetaminop hen (NORCO) 7.5-325 mg per tablet 2022-06 14:22: 42 04-12 00:00 :00 No 1{tbl} Take 1 Tab by mouth every 6 (six) hours as needed for Pain. [facility] LIPASE/PROT EASE/AMYLAS E (CREON 10 ORAL) 2022-06 14:22: 42 04-12 00:00 :00 No Take by mouth. [facility] DULoxetine 30 mg capsule 2022-06 00:00: 00 07-04 00:00 :00 No [id number] 30mg Take 1 capsule by mouth in the morning. [facility] carvediloL 25 mg tablet 2022-06 00:00: 00 07-04 00:00 :00 No [id number] 25mg Take 1 tablet by mouth in the morning and 1 tablet in the evening. Take with meals. [facility] ondansetron 4 mg tablet 02-14 00:00: 00 07-04 00:00 :00 No 4mg Take 1 tablet by mouth every 6 (six) hours as needed for Nausea and Vomiting (N/V). [facility] clonazePAM 1 mg tablet 02-14 00:00: 00 04-12 00:00 :00 No 1mg Take 1 tablet by mouth 2 (two) times daily as needed. [facility] gabapentin 300 mg capsule 02-07 00:00: 00 Yes TAKE 1 CAPSULE TWICE A DAY FOR 28 DAY(S) [facility] pantoprazol e 40 mg EC tablet 12-10 00:00: 00 07-04 00:00 :00 No 40mg Take 1 tablet by mouth in the morning. [facility] clonazePAM 0.5 MG clonazePAM 0.5 [...] 07-21 00:00: 00 04-12 00:00 :00 No [id number] Apply to area(s) 5 (five) times daily. [facility] valsartan 40 mg oral tablet 2018-06 19:12: 00 Yes 0 Refill(s) Dieudonne Gordon pantoprazol e 40 mg oral enteric coated tablet 09-26 19:00: 00 Yes 40 mg = 1 tab, PO, Daily, # 30 tab, 0 Refill(s) Dieudonne Gordon Acetaminoph en 325 MG / Hydrocodone Bitartrate 10 MG Oral Tablet [[place] 10/325] 09-26 19:00: 00 Yes 1 tab, PO, QID, 0 Refill(s) Dieudonne Gordon Clonazepam 2 MG Oral Tablet [Klonopin] 09-26 19:00: 00 Yes 2 mg = 1 tab, PO, BID, # 60 tab, 0 Refill(s) Dieudonne Gordon Aspirin 81 Aspirin 81 09-14 00:00: 00 Yes Esthela Dunham 1 tablet [facility] Aspirin 81 81 MG Aspirin 81 [...] 00 Yes Esthela Dunham 1 puff [facility] Albuterol Sulfate HFA 108 (90 Base) MCG/ACT [...] 6 (six) hours as needed for Pain. [facility] LIPASE/PROT EASE/AMYLAS E (CREON 10 ORAL) 12-06 06:42: 52 Yes Take by mouth. [facility] carvedilol (COREG) 25 mg tablet 12-06 06:42: 52 Yes 25mg Take 25 mg by mouth 2 (two) times daily with meals. [facility] metroNIDAZO LE (FLAGYL) 500 mg tablet 12-06 00:00: 00 04-12 00:00 :00 No 500mg Take 1 Tab by mouth 2 (two) times daily. [facility] proMETHazin e (PHENERGAN) 25 mg tablet 12-06 00:00: 00 04-12 00:00 :00 No 25mg Take 1 Tab by mouth every 6 (six) hours as needed for Nausea and Vomiting (N/V). [facility] Clonazepam Clonazepam Yes Esthela Dunham TAKE 1 TABLET BY MOUTH TWICE A DAY [facility] Carvedilol Carvedilol Yes Esthela Dunham take 1 tablet by mouth twice a day [facility] Famotidine Famotidine Yes Esthela Ashe 1 tablet at bedtime [facility] Protonix Protonix Yes Esthela Ashe 1 tablet [facility] Dicyclomine HCl Dicyclomine HCl Yes Esthela Ashe 1 tablet [facility] Ventolin HFA Ventolin HFA Yes Esthela Ashe 2 puffs [facility] Valsartan Valsartan Yes Esthela Ashe 1 tablet [facility] Hydrocodone -Acetaminop hen Hydrocodone -Acetaminop hen Yes Esthela Dunham (Schedule II Drug) TK 1 T PO TID [facility] Dicyclomine HCl 20 MG Dicyclomine HCl 20 MG No 1{table t} QID Dicyclomin e HCl 20 MG OneTouch Ultra - OneTouch Ultra - No OneTouch Ultra - Lactulose 10 GM/15ML Lactulose 10 GM/15ML No 15{ml} Lactulose 10 GM/15ML OneTouch Delica Plus Wjnvhf56L - OneTouch Delica Plus Gwkldy66A - No OneTouch Delica Plus Wymsnd64N - Famotidine 20 MG Famotidine 20 MG [...] 15{ml} Lactulose 10 GM/15ML OneTouch Delica Plus Ovplay92J - OneTouch Delica Plus Uoddod17D - No OneTouch Delica Plus Ogysby64R - Protonix 40 MG Protonix 40 MG No 1{table t} QD Protonix 40 MG OneTouch Ultra - OneTouch Ultra - No OneTouch Ultra - Ventolin HFA 108 (90 Base) MCG/ACT Ventolin HFA 108 (90 Base) MCG/ACT No 2{puffs } Ventolin HFA 108 (90 Base) MCG/ACT Protonix 40 MG Protonix 40 MG No 1{table t} QD Protonix 40 MG OneTouch Delica Plus Lqmqgi50S - OneTouch Delica Plus Gobzew75R - No OneTouch Delica Plus Zgerpx75D - Albuterol Sulfate HFA 108 (90 Base) [...] QD Protonix 40 MG OneTouch Delica Plus Zcyarl42I - OneTouch Delica Plus Roqghm75Q - No OneTouch Delica Plus Qvjjmz20M - Albuterol Sulfate HFA 108 (90 Base) [...] QD Protonix 40 MG OneTouch Delica Plus Wdmnoy62R - OneTouch Delica Plus Fmutgb55R - No OneTouch Delica Plus Ekyypi83T - Famotidine 20 MG Famotidine 20 MG [...] QD Protonix 40 MG OneTouch Delica Plus Qrnfes68R - OneTouch Delica Plus Zeqocu37E - No OneTouch Delica Plus Oimakv38R - Famotidine 20 MG Famotidine 20 MG [...] QD Protonix 40 MG OneTouch Delica Plus Rlbxnh93K - OneTouch Delica Plus Itqnwt75H - No OneTouch Delica Plus Ehsbbh09K - Famotidine 20 MG Famotidine 20 MG [...] QD Protonix 40 MG OneTouch Delica Plus Wcyris18I - OneTouch Delica Plus Jdcwpw08P - No OneTouch Delica Plus Mfbfxw96V - Ventolin HFA 108 (90 Base) MCG/ACT Ventolin HFA 108 (90 Base) MCG/ACT No 2{puffs } Ventolin HFA 108 (90 Base) MCG/ACT Carvedilol 25 MG Carvedilol 25 MG No 1{table t_with_ food} BID Carvedilol 25 MG OneTouch Ultra - OneTouch Ultra - No OneTouch Ultra - OneTouch Delica Plus Qspknz79D - OneTouch Delica Plus Ntxilb60C - No OneTouch Delica Plus Fyxukt38O - Protonix 40 MG Protonix 40 MG No 1{table t} QD Protonix 40 MG Ventolin HFA 108 (90 Base) MCG/ACT Ventolin HFA 108 (90 Base) MCG/ACT No 2{puffs } Ventolin HFA 108 (90 Base) MCG/ACT Carvedilol 25 MG Carvedilol 25 MG No 1{table t_with_ food} BID Carvedilol 25 MG OneTouch Ultra - OneTouch Ultra - No OneTouch Ultra - OneTouch Delica Plus Aarygs86C - OneTouch Delica Plus Okxaqv40J - No OneTouch Delica Plus Vtjeav45C - Protonix 40 MG Protonix 40 MG No 1{table t} QD Protonix 40 MG Ventolin HFA 108 (90 Base) MCG/ACT Ventolin HFA 108 (90 Base) MCG/ACT No 2{puffs } Ventolin HFA 108 (90 Base) MCG/ACT Carvedilol 25 MG Carvedilol 25 MG No 1{table t_with_ food} BID Carvedilol 25 MG OneTouch Ultra - OneTouch Ultra - No OneTouch Ultra - OneTouch Delica Plus Lzfzwo46F - OneTouch Delica Plus Kpfhoa73W - No OneTouch Delica Plus Nanrmh74M - Protonix 40 MG Protonix 40 MG [...] No OneTouch Ultra - OneTouch Delica Plus Esolyj59J - OneTouch Delica Plus Jhakuv38U - No OneTouch Delica Plus Vgzhbr84K - HYDROcodone -Acetaminop hen 10-325 MG HYDROcodone [...] No OneTouch Ultra - OneTouch Delica Plus Ojiaam16I - OneTouch Delica Plus Najdfq92E - No OneTouch Delica Plus Mucgjk86V - Albuterol Sulfate HFA 108 (90 Base) [...] No OneTouch Ultra - OneTouch Delica Plus Pwjdgs62L - OneTouch Delica Plus Dvexyo62J - No OneTouch Delica Plus Irxkrp97V - Albuterol Sulfate HFA 108 (90 Base) MCG/ACT Albuterol Sulfate HFA 108 (90 Base) MCG/ACT No Albuterol Sulfate HFA 108 (90 Base) MCG/ACT HYDROcodone -Acetaminop hen 10-325 MG HYDROcodone -Acetaminop hen 10-325 MG No HYDROcodon e-Acetamin ophen 10-325 MG Protonix 40 MG Protonix 40 MG No 1{table t} QD Protonix 40 MG Creon Creon 12-23 00:00 :00 No Esthela Ashe take by mouth 1 capsule 3 times a day as directed [facility] Vital Signs Vital Name Observation Time Observation Value Comments Nazario stoner Systolic blood pressure 2023-10-03 21:46:00 142 mm[Hg] [facility] Diastolic blood pressure 2023-10-03 21:46:00 92 mm[Hg] [facility] Heart rate 2023-10-03 21:46:00 86 /min [facility] Oxygen saturation in Arterial blood by Pulse oximetry 2023-10-03 21:46:00 96 /min [facility] Systolic blood pressure 2023-10-03 21:03:00 142 mm[Hg] [facility] Diastolic blood pressure 2023-10-03 21:03:00 92 mm[Hg] [facility] Heart rate 2023-10-03 21:03:00 86 /min [facility] Body height 2023-10-03 21:03:00 177.8 cm [facility] Body weight 2023-10-03 21:03:00 99.202 kg [facility] BMI 2023-10-03 21:03:00 31.38 kg/m2 [facility] Systolic blood pressure 2023-07-04 20:00:00 142 mm[Hg] [facility] Diastolic blood pressure 2023-07-04 20:00:00 84 mm[Hg] [facility] Heart rate 2023-07-04 19:59:00 58 /min [facility] Body temperature 2023-07-04 19:59:00 36.11 Jing [facility] Respiratory rate 2023-07-04 19:59:00 17 /min [facility] Body height 2023-07-04 19:59:00 175.3 cm [facility] Body weight 2023-07-04 19:59:00 99.973 kg [facility] BMI 2023-07-04 19:59:00 32.55 kg/m2 [facility] Oxygen saturation in Arterial blood by Pulse oximetry 2023-07-04 19:59:00 97 /min [facility] Systolic blood pressure 2023-04-12 20:19:00 149 mm[Hg] [facility] Diastolic blood pressure 2023-04-12 20:19:00 90 mm[Hg] [facility] Heart rate 2023-04-12 18:55:00 55 /min [facility] [facility] Respiratory rate 2023-04-12 18:55:00 18 /min [facility] Body height 2023-04-12 18:55:00 177.8 [facility] Body weight 2023-04-12 18:55:00 [facility].202 [facility] BMI 2023-04-12 18:55:00 31.38 kg/m2 [facility] Oxygen saturation in Arterial blood by Pulse oximetry 2023-04-12 18:55:00 98 /min [facility] height 2022-08-30 15:20:00 70 [in_i] Commo n [facility] weight 2022-08-30 15:20:00 216.2 [lb_av] Co mmon [facility] temperature 2022-08-30 15:20:00 97.2 [degF] Com mon [facility] bmi 2022-08-30 15:20:00 31.02 kg/m2 Comm on [facility] oximetry 2022-08-30 15:20:00 96 % Commo n [facility] respiratory rate 2022-08-30 15:20:00 17 /min [facility] blood pressure systolic 2022-08-30 15:20:00 134 mm[Hg] [facility] blood pressure diastolic 2022-08-30 15:20:00 80 mm[Hg] [facility] height 2022-04-11 15:40:00 70 [in_i] Commo n [facility] weight 2022-04-11 15:40:00 206.9 [lb_av] Co mmon [facility] temperature 2022-04-11 15:40:00 97.6 [degF] Com mon [facility] bmi 2022-04-11 15:40:00 29.68 kg/m2 Comm on [facility] oximetry 2022-04-11 15:40:00 98 % Commo n [facility] respiratory rate 2022-04-11 15:40:00 18 /min [facility] blood pressure systolic 2022-04-11 15:40:00 138 mm[Hg] [facility] blood pressure diastolic 2022-04-11 15:40:00 72 mm[Hg] [facility] height 2022-02-09 13:50:00 70 [in_i] Commo n [facility] weight 2022-02-09 13:50:00 207 [lb_av] Comm on [facility] temperature 2022-02-09 13:50:00 97.9 [degF] Com mon [facility] bmi 2022-02-09 13:50:00 29.7 kg/m2 Commo n [facility] oximetry 2022-02-09 13:50:00 96 % Commo n [facility] respiratory rate 2022-02-09 13:50:00 18 /min [facility] blood pressure systolic 2022-02-09 13:50:00 132 mm[Hg] [facility] blood pressure diastolic 2022-02-09 13:50:00 70 mm[Hg] [facility] height 2021-12-07 09:20:00 70 [in_i] Commo n [facility] weight 2021-12-07 09:20:00 206.0 [lb_av] Co mmon [facility] temperature 2021-12-07 09:20:00 98.2 [degF] Com mon [facility] bmi 2021-12-07 09:20:00 29.55 kg/m2 Comm on [facility] oximetry 2021-12-07 09:20:00 99 % Commo n [facility] respiratory rate 2021-12-07 09:20:00 18 /min [facility] blood pressure systolic 2021-12-07 09:20:00 137 mm[Hg] [facility] blood pressure diastolic 2021-12-07 09:20:00 70 mm[Hg] [facility] height 2021-02-23 14:30:00 70 [in_i] Commo n [facility] weight 2021-02-23 14:30:00 190.0 [lb_av] Co mmon [facility] temperature 2021-02-23 14:30:00 98.3 [degF] Com mon [facility] bmi 2021-02-23 14:30:00 27.26 kg/m2 Comm on [facility] blood pressure systolic 2021-02-23 14:30:00 138 mm[Hg] [facility] blood pressure diastolic 2021-02-23 14:30:00 74 mm[Hg] [facility] Systolic blood pressure 2020-12-28 20:04:00 155 mm[Hg] [facility] Diastolic blood pressure 2020-12-28 20:04:00 82 mm[Hg] [facility] Heart rate 2020-12-28 20:04:00 61 /min [facility] Body temperature 2020-12-28 20:04:00 36.67 Jing [facility] Respiratory rate 2020-12-28 20:04:00 16 /min [facility] Body height 2020-12-28 20:04:00 177.8 cm [facility] Body weight 2020-12-28 20:04:00 86.183 kg [facility] BMI 2020-12-28 20:04:00 27.26 kg/m2 [facility] Oxygen saturation in Arterial blood by Pulse oximetry 2020-12-28 20:04:00 97 /min [facility] Systolic blood pressure 2019-07-22 04:00:00 147 mm[Hg] [facility] Diastolic blood pressure 2019-07-22 04:00:00 87 mm[Hg] [facility] Heart rate 2019-07-22 04:00:00 54 /min [facility] Respiratory rate 2019-07-22 04:00:00 20 /min [facility] Oxygen saturation in Arterial blood by Pulse oximetry 2019-07-22 04:00:00 99 /min [facility] Body temperature 2019-07-21 23:21:00 37 Jing [facility] Body weight 2019-07-21 23:21:00 86.183 kg [facility] BMI 2019-07-21 23:21:00 27.26 kg/m2 [facility] Systolic blood pressure 2019-07-22 04:00:00 147 mm[Hg] [facility] Diastolic blood pressure 2019-07-22 04:00:00 87 mm[Hg] [facility] Heart rate 2019-07-22 04:00:00 54 /min [facility] Respiratory rate 2019-07-22 04:00:00 20 /min [facility] Oxygen saturation in Arterial blood by Pulse oximetry 2019-07-22 04:00:00 99 /min [facility] Body temperature 2019-07-21 23:21:00 37 Jing [facility] Body weight 2019-07-21 23:21:00 86.183 [facility] BMI 2019-07-21 23:21:00 27.26 kg/m2 [facility] Systolic (mm Hg) 2019-03-28 18:17:00 [facility] Diastolic (mm Hg) 2019-03-28 18:17:00 [facility] Heart Rate 2019-03-28 18:17:00 [facility] Respitory Rate 2019-03-28 18:17:00 [facility] Height 2019-03-28 18:17:00 172.72 cm [facility] Weight 2019-03-28 18:17:00 [facility] BMI Calculated 2019-03-28 18:17:00 [facility] BMI Calculated 2018-09-26 18:51:00 [facility] Weight 2018-09-26 18:51:00 [facility] Height 2018-09-26 18:51:00 172.72 cm [facility] Heart Rate 2018-09-26 18:51:00 [facility] Respitory Rate 2018-09-26 18:51:00 [facility] Systolic (mm Hg) 2018-09-26 18:51:00 [facility] Diastolic (mm Hg) 2018-09-26 18:51:00 [facility] Procedures Procedure Date / Time Performed Performing Clinicia n Source NOTICE OF PRIVACY PRACTICES 2020-12-28 19:58:01 Doctor Unassigned, [place] [facility] CONSENT/REFUSAL FOR DIAGNOSIS AND TREATMENT 2020-12-28 19:57:10 Doctor Unassigned, [place] [facility] US SCROTUM AND CONTENTS 2019-07-22 03:08:48 Lucho Alfaro [facility] NOTICE OF PRIVACY PRACTICES 2019-07-21 23:12:14 Doctor Unassigned, [place] [facility] CONSENT/REFUSAL FOR DIAGNOSIS AND TREATMENT 2019-07-21 23:07:41 Doctor Unassigned, [place] [facility] Encounters Start Date/Time End Date/Time Encounter Type Admission Type Attending [facility] Care Facility Care Department Encounter ID Source 2023-01-11 16:27:00 [facility] [id number] [facility] 2022-09-12 13:14:00 Outpatient Jenkins, [facility] [id number] [facility] 2022-08-26 08:40:00 [facility] [id number] [facility] 2022-08-17 14:47:00 Outpatient Jenkins, [facility] [id number] [facility] 2022-06-02 08:30:58 Outpatient [facility] [id number] [facility] 2022-05-24 13:55:01 [facility] [id number] [facility] 2022-05-23 10:20:01 [facility] [id number] [facility] 2022-05-04 14:32:40 Outpatient [facility] [id number] [facility] 2022-04-07 13:30:01 Outpatient Jenkins, [facility] [id number] [facility] 2022-04-04 10:22:48 Outpatient [facility] [id number] [facility] 2022-03-31 12:03:45 Outpatient [facility] [id number] [facility] 2022-03-30 15:15:47 Outpatient [facility] [id number] [facility] 2022-02-09 13:48:01 Outpatient Jenkins, [facility] STLC STLC [id number] [facility] 2021-12-08 11:45:00 Outpatient Jenkins, [facility] STLC STLC [id number] [facility] 2021-12-07 09:25:00 Outpatient Jenkins, [facility] STLC STLC [id number] [facility] 2021-12-03 09:35:01 Outpatient Jenkins, [facility] STLC STLC [id number] [facility] 2021-06-30 13:05:56 Outpatient Jenkins, [facility] STLC STLMLC [id number] [facility] 2021-06-30 12:47:29 Outpatient Jenkins, [facility] STLC STLMLC [id number] [facility] 2021-06-30 12:36:27 Outpatient Jenkins, [facility] STLC STLMLC [id number] [facility] 2021-06-30 12:35:26 Outpatient Jenkins, [facility] STLC STLMLC [id number] [facility] 2021-06-30 12:28:53 Outpatient Jenkins, Reese STLC STLMLC [id number] [facility] 2021-06-30 12:26:11 Outpatient Jenkins, [facility] STLC STLMLC [id number] [facility] 2021-06-30 12:12:23 Outpatient [facility] [id number] [facility] 2021-06-30 12:04:45 [facility] [id number] [facility] 2021-06-30 11:55:15 [facility] [id number] [facility] 2021-06-30 11:52:56 [facility] [id number] [facility] 2021-06-30 11:52:32 [facility] [id number] [facility] 2021-06-30 11:02:50 Outpatient Fernanda Lockwood [facility] [id number] [facility] 2021-06-30 11:02:33 Outpatient Fernanda Lockwood [facility] [id number] [facility] 2024-01-26 00:00:00 2024-01-26 09:02:45 Telephone Robbin Carroll [facility] 1.2.840.114 350.1.13.10 4.2.7.2.686 [id number] [facility] 2023-12-18 00:00:00 2023-12-18 16:23:17 Telephone Team, [facility] 1.2.840.114 350.1.13.10 4.2.7.2.686 [id number] [facility] 2023-10-03 14:00:00 2023-10-03 16:58:23 Office Visit Robbin Carroll [facility] 1.2.840.114 350.1.13.10 4.2.7.2.686 [id number] [facility] 2023-10-03 16:00:00 2023-10-03 16:38:39 Outpatient R ROBBIN CARROLL [facility] [id number] [facility] 2023-10-03 16:00:00 2023-10-03 16:38:39 Office Visit Robbin Carroll [facility] 1.2.840.114 350.1.13.10 4.2.7.2.686 [id number] [facility] 2023-07-04 14:00:00 2023-07-04 14:41:34 Outpatient R ROBBIN CARROLL [facility] [id number] [facility] 2023-07-04 14:00:00 2023-07-04 14:41:34 Office Visit Robbin Carroll [facility] 1..840.114 350.1.13.10 4.2.7.2.686 [id number] [facility] 2023-05-26 14:20:00 2023-05-26 14:20:00 Outpatient R INA MIKE [facility] [id number] [facility] 2023-04-26 00:00:00 2023-04-26 00:00:00 Refill Ina Mike COUNTS INCLUDE 234 BEDS AT THE [facility] 1..840.114 350.1.13.10 4.2.7.2.686 [id number] [facility] 2023-04-12 15:15:00 2023-04-12 15:42:32 Proof Operator Visit Lab, Ina Charles [facility] 1..840.114 350.1.13.10 4.2.7.2.686 [id number] [facility] 2023-04-12 15:15:00 2023-04-12 15:15:00 Outpatient R INA MIKE [facility] [id number] [facility] 2023-04-12 14:00:00 2023-04-12 15:06:59 Office Visit Ina Mike [facility] Y[facility]MIN [facility] 1.2.840.114 350.1.13.10 4.2.7.2.686 [id number] [facility] 2022-12-20 00:00:00 2022-12-20 00:00:00 (TEL) STLMLC STLMLC [id number] [facility] 2022-11-03 00:00:00 2022-11-03 00:00:00 (TEL) STLMLC STLMLC [id number] [facility] 2022-09-02 00:00:00 2022-09-02 00:00:00 (TEL) STLMLC STLMLC [id number] [facility] 2022-09-02 00:00:00 2022-09-02 00:00:00 (TEL) STLMLC STLMLC [id number] [facility] 2022-08-30 00:00:00 2022-08-30 00:00:00 OFFICE VISIT ESTAB PT LEVEL 4 STLMLC STLMLC [id number] [facility] 2022-08-17 00:00:00 2022-08-17 00:00:00 (TEL) STLMLC STLMLC [id number] [facility] 2022-06-16 13:00:00 2022-06-16 13:00:00 Outpatient WARD SANTOS [facility] [id number] [facility] 2022-05-12 11:30:00 2022-05-12 13:38:22 Office Visit Ward Santos [facility] [address] 1.2.840.114 350.1.13.58 9.2.7.2.686 [id number] [facility] 2022-04-19 00:00:00 2022-04-19 00:00:00 (TEL) STLMLC STLMLC [id number] [facility] 2022-04-14 10:30:00 2022-04-14 12:17:23 Outpatient WARD SANTOS [facility] [id number] [facility] 2022-04-11 00:00:00 2022-04-11 00:00:00 OFFICE VISIT ESTAB PT LEVEL 4 STLMLC STLMLC [id number] [facility] 2022-04-04 10:30:00 2022-04-04 16:18:07 [facility] [address] 1.2.840.114 350.1.13.58 9.2.7.2.686 [id number] [facility] 2022-03-25 11:00:00 2022-03-25 11:00:00 Outpatient [facility] [id number] [facility] 2022-03-24 00:00:00 2022-03-24 00:00:00 (TEL) STLMLC STLMLC [id number] [facility] 2022-03-23 00:00:00 2022-03-23 00:00:00 (TEL) STLMLC STLMLC [id number] [facility] 2022-03-23 00:00:00 2022-03-23 00:00:00 (TEL) STLMLC STLMLC [id number] [facility] 2022-03-23 00:00:00 2022-03-23 00:00:00 (TEL) STLMLC STLMLC [id number] [facility] 2022-02-09 00:00:00 2022-02-09 00:00:00 OFFICE VISIT ESTAB PT LEVEL 4 STLMLC STLMLC [id number] [facility] 2021-12-07 00:00:00 2021-12-07 00:00:00 OFFICE VISIT ESTAB PT LEVEL 4 STLMLC STLMLC [id number] [facility] 2021-03-24 00:00:00 2021-03-24 00:00:00 (TEL) STLMLC STLMLC [id number] [facility] 2021-02-23 00:00:00 2021-02-23 00:00:00 (TELEAUD) AUDIO TELEMEDICI NE STLMLC STLMLC [id number] [facility] 2021-02-22 00:00:00 2021-02-22 00:00:00 (TEL) STLMLC STLMLC [id number] [facility] 2020-12-28 15:10:00 2020-12-28 16:55:00 Emergency Shania Waters S [facility] 1.2.840.114 350.1.13.10 4.2.7.2.686 [id number] [facility] 2020-12-28 14:57:00 2020-12-28 14:57:00 Emergency X [facility] ERT [id number] [facility] 2020-12-28 00:00:00 2020-12-28 00:00:00 Orders Only Doctor Unassigned, [place] [facility] 1.2.840.114 350.1.13.10 4.2.7.2.686 [id number] [facility] 2020-12-24 00:00:00 2020-12-24 00:00:00 Outpatient STLMLC STLMLC [id number] [facility] 2020-12-17 00:00:00 2020-12-17 00:00:00 Outpatient STLMLC STLMLC [id number] [facility] 2020-12-04 00:00:00 2020-12-04 00:00:00 Outpatient STLMLC STLMLC [id number] [facility] 2020-10-22 00:00:00 2020-10-22 00:00:00 Outpatient STLMLC STLMLC [id number] [facility] 2020-10-15 00:00:00 2020-10-15 00:00:00 Outpatient STLMLC STLMLC [id number] [facility] 2020-10-07 00:00:00 2020-10-07 00:00:00 Outpatient STLMLC STLMLC [id number] [facility] 2020-09-07 00:00:00 2020-09-07 00:00:00 Outpatient STLMLC STLMLC [id number] [facility] 2020-08-06 00:00:00 2020-08-06 00:00:00 Outpatient STLMLC STLMLC [id number] [facility] 2020-07-09 00:00:00 2020-07-09 00:00:00 Outpatient STLMLC STLMLC [id number] [facility] 2020-06-09 00:00:00 2020-06-09 00:00:00 Outpatient STLMLC STLMLC [id number] [facility] 2020-05-21 00:00:00 2020-05-21 00:00:00 Outpatient STLMLC STLMLC [id number] [facility] 2020-05-14 00:00:00 2020-05-14 00:00:00 Outpatient STLMLC STLMLC [id number] [facility] 2020-04-28 00:00:00 2020-04-28 00:00:00 Outpatient STLMLC STLMLC [id number] [facility] 2020-04-16 00:00:00 2020-04-16 00:00:00 Outpatient STLMLC STLMLC [id number] [facility] 2020-03-18 00:00:00 2020-03-18 00:00:00 Outpatient STLMLC STLMLC [id number] [facility] 2020-03-18 00:00:00 2020-03-18 00:00:00 Outpatient STLMLC STLMLC [id number] [facility] 2020-03-10 00:00:00 2020-03-10 00:00:00 Outpatient STLMLC STLMLC [id number] [facility] 2020-01-30 04:28:00 2020-01-30 04:28:00 Outpatient Ajibade_O_A H VFP VFP [id number] [facility] 2020-01-30 04:28:00 2020-01-30 04:28:00 Outpatient Ajibade_O_A H VFP VFP [id number] [facility] 2020-01-30 04:28:00 2020-01-30 04:28:00 Outpatient Ajibade_O_A H VFP VFP [id number] [facility] 2020-01-30 04:28:00 2020-01-30 04:28:00 Outpatient Ajibade_O_A H VFP VFP [id number] [facility] 2019-07-24 07:17:00 2019-07-24 07:17:00 Outpatient Ige-Odunuga _J_AH VFP VFP [id number] [facility] 2019-07-24 07:17:00 2019-07-24 07:17:00 Outpatient Ige-[place] _J_AH VFP VFP [id number] [facility] 2019-07-21 18:06:23 2019-07-21 22:09:00 Emergency X LUCHO ALFARO [facility] ERT [id number] [facility] 2019-07-21 18:06:23 2019-07-21 22:09:00 Emergency Lucho Alfaro [facility] 1.2.840.114 350.1.13.10 4.2.7.2.686 [id number] [facility] 2019-07-21 18:06:23 2019-07-21 22:09:00 Emergency Lucho Alfaro [facility] 1.2.840.114 350.1.13.10 4.2.7.2.686 [id number] 2019-07-15 15:01:00 2019-07-15 15:01:00 [facility] [id number] [facility] 2019-07-09 16:46:00 2019-07-09 16:46:00 [facility] [id number] [facility] 2019-07-08 14:51:00 2019-07-08 14:51:00 [facility] [id number] [facility] 2019-07-08 08:00:00 2019-07-08 08:00:00 [facility] [id number] [facility] 2019-07-04 13:00:00 2019-07-04 13:00:00 [facility] [id number] [facility] 2019-07-02 14:32:00 2019-07-02 14:32:00 [facility] Medicine [id number] [facility] 2019-06-27 14:40:00 2019-06-27 14:40:00 [facility] Medicine [id number] [facility] 2019-06-03 11:17:00 2019-06-03 11:17:00 [facility] [id number] [facility] 2019-04-18 18:37:59 2019-04-20 05:59:59 Outside Medical Records nullFlavo r [facility] [id number] Dieudonne Gordon 2019-04-11 21:30:00 2019-04-11 21:30:00 Ambulatory Pre-Reg nullFlavo r [facility] [id number] Dieudonne Gordon 2019-04-09 15:20:00 2019-04-09 15:20:00 [facility] Medicine [id number] [facility] 2019-04-01 13:58:44 2019-04-03 04:59:59 Outside Medical Records nullFlavo r [facility] [id number] Dieudonne Gordon 2019-03-28 18:00:00 2019-03-29 04:59:59 Outpatient nullFlavo r [facility] [id number] Dieudonne Gordon 2019-02-19 14:40:00 2019-02-19 14:40:00 [facility] [address] [facility] [id number] [facility] 2018-12-11 11:21:00 2018-12-11 11:21:00 [facility] [id number] [facility] 2018-11-19 14:40:00 2018-11-19 14:40:00 [facility] Medicine [id number] [facility] 2018-10-31 18:45:00 2018-10-31 18:45:00 Ambulatory Pre-Reg nullFlavo r [facility] [id number] Dieudonne Gordon 2018-09-26 18:30:00 2018-09-27 04:59:59 Outpatient nullFlavo r [facility] [id number] Dieudonne Gordon 2018-09-17 16:00:00 2018-09-17 16:00:00 [place] [facility] [address] [facility] [id number] [facility] 2018-08-02 16:07:00 2018-08-02 16:07:00 [facility] [id number] [facility] 2018-08-02 16:05:00 2018-08-02 16:05:00 [facility] [id number] [facility] 2018-06-18 16:00:00 2018-06-18 16:00:00 [place] [facility] [address] [facility] [id number] [facility] 2018-01-18 14:00:00 2018-01-18 14:00:00 [facility] [id number] [facility] 2017-09-19 09:33:00 2017-09-19 09:33:00 [facility] [id number] [facility] 2017-09-14 13:00:00 2017-09-14 13:00:00 [facility] [id number] [facility] 2017-09-12 11:05:00 2017-09-12 11:05:00 [place] [facility] [id number] [facility] 2017-08-29 15:30:00 2017-08-29 15:30:00 Outpatient [facility] [id number] [facility] Results Test Description Test Time Test Comments Results Resul t Comments Source US SCROTUM AND CONTENTS 2019-07-06 03:19:48 No evidence for testicular torsion. No definite evidence for epididymo-orchitis. RL: [id number] AFC: [id number] Ordering physician: LUCHO ALFARO INDICATION: Scrotal pain [...] torsion.No definite evidence for epididymo-orchitis. RL: [id number]: [id number] signed by Kristen Valdez MD, PhD at 07/21/2019 9:19 PM [facility] Notes Date/Time Note Provider Source 2024-01-26 09:01:18 Images from the original note were not included. Scanned in folder and placed in provider basket for review. [facility] 2023-12-18 16:19:38 Records Update Encounter Managed Care Team completed a Care Everywhere Search to update records. Patient was not contacted. Sarah Rosas [facility]
[2024-03-05] MEDS ORDERED: NA CHLORIDE 0.9% 1,000 ML ONE (01:27)
[2024-03-05 01:40] LABS: Absolute Eosinophils 0.1 K/uL (0-0.5); Absolute Lymphocytes (CBC) 2.6 K/uL (0.7-4.9); Absolute Monocytes 0.8 K/uL (0.1-1.3); Absolute Neutrophil 6.3 K/uL (1.8-8.0); Basophils % 0.5 % (0-1.3); Eosinophils % 0.7 % (0-4.4); Hematocrit 41.8 % (39.6-49.0); Hemoglobin 14.1 g/dL (13.6-17.9); Lymphocytes % 26.9 % (15.3-44.8); MCH 30.8 pg (27.0-35.0); MCHC 33.8 g/dL (32.0-36.0); MCV 91.1 fL (80-100); MPV 7.4 fL (7.6-11.3); Neutrophils % 63.9 % (41.7-73.7); Nucleated Red Blood Cells % 0.1 % (0-0); Platelets 203 thou/uL (152-406); RBC Red Blood Cell Count 4.58 M/uL (4.33-5.43); Red Cell Distribution Width 14.1 % (12.1-15.2)
[2024-03-05 01:56] LABS: ALT/SGPT 27 U/L (16-61); Albumin 3.2 g/dL (3.4-5.0); Alkaline Phosphatase 58 U/L (45-117); Anion Gap 4.7 mEq/L (5.0-15.0); BUN Blood Urea Nitrogen 13 mg/dL (7-18); Bicarbonate 29 mEq/L (21-32); Bilirubin Total 0.4 mg/dL (0.2-1.0); Globulin 3.3 g/dL (2.3-3.5); Glomerular Filtration Rate 99 ml/min (=/>90); Glucose Level 125 mg/dL (74-106); Magnesium 2.1 mg/dL (1.6-2.4); Potassium 3.7 mEq/L (3.5-5.1); Protein, Total 6.5 g/dL (6.4-8.2); Sodium Level 138 mEq/L (136-145); Troponin High Sensitivity 5.3 pg/mL (<58.9)
[2024-03-05 01:57] LABS: AST/SGOT < 10 U/L (15-37); Bilirubin Direct < 0.2 mg/dL (0-0.2); Bilirubin Indirect, Calculated 0.2 mg/dL (0.2-0.8)
--- NOTE | 2024-03-05 05:05 | RAD REPORT ---
PROCEDURE: CT Angiography Chest, Abdomen and Pelvis With Intravenous Contrast CLINICAL INDICATION: The patient is 63 years old and is Male; ABD PAIN Bed Name: 19 TECHNIQUE: Axial computed tomographic angiography images of the chest, abdomen and pelvis with intravenous contr ast. Sagittal and coronal reformatted images were created and reviewed. This CT exam was performed using one or more of the following dose reduction techniques: automated exposure control, adjustment of the mA and/or kV according to patient size, and/or use of iterative reconstruction technique. MIP reconstructed images were created and reviewed. COMPARISON: 02/17/2024 CT abdomen pelvis without contrast, 02/08/2024 chest radiograph FINDINGS: VASCULATURE: AORTA: Circumaortic left renal vein. No thoracic or abdominal aortic aneurysm or dissection. PULMONARY ARTERIES: Unremarkable as visualized. No central pulmonary embolism. GREAT VESSELS OF AORTIC ARCH: No acute findings. No dissection. No arterial occlusion or signif icant stenosis. CELIAC TRUNK AND MESENTERIC ARTERIES: No acute findings. No occlusion or significant stenosis. RENAL ARTERIES: No acute findings. No occlusion or significant stenosis. ILIAC ARTERIES: No acute findings. No occlusion or significant stenosis. CHEST: LUNGS: Left hilar and left lower lobe calcified granulomas. No focal intrapulmonary consolidation. No suspicious pulmonary nodules or mass. PLEURAL SPACE: Unremarkable No significant effusion. No pneumothorax. HEART: Unremarkable No cardiomegaly. No significant pericardial effusion. ABDOMEN: LIVER: There are punctate intrahepatic calcified granulomas. Fatty infiltration of the liver. GALLBLADDER AND BILE DUCTS: Unremarkable No calcified stones. No ductal dilation. PANCREAS: Unremarkable No ductal dilation. No mass. SPLEEN: Scattered punctate splenic granulomas. ADRENALS: Unremarkable No mass. KIDNEYS AND URETERS: Simple renal cyst. No follow-up of this simple cyst is necessary. No solid mass. No hydronephrosis or obstructive intrarenal or intraureteral stones. STOMACH AND BOWEL: There is relative circumferential thickening of the proximal sigmoid colon, with no surrounding inflammation to suggest acute diverticulitis. Colonic diverticulosis without evidence of acute diverticulitis. No obstruction. PELVIS: APPENDIX: No findings to suggest acute appendicitis. BLADDER: Unremarkable No mass. REPRODUCTIVE: Unremarkable as visualized. CHEST, ABDOMEN and PELVIS: INTRAPERITONEAL SPACE: Unremarkable No significant fluid collection. No free air. BONES/JOINTS: No dislocation. No displaced or depressed rib fractures. No appreciable sternal or vertebral fractures. SOFT TISSUES: Small fat-containing umbilical hernia. LYMPH NODES: Unremarkable No enlarged lymph nodes. IMPRESSION: 1. No thoracic or abdominal aortic aneurysm or dissection. 2. No definite acute abnormality of the chest, abdomen, or pelvis. 3. Hepatic steatosis. 4. Colonic diverticulosis without evidence of acute diverticulitis. 5. Relative circumferential thickening of the proximal sigmoid colon, with no surrounding inflammat ion to suggest acute diverticulitis. Consider further characterization by colonoscopy to exclude underlying neoplasm. Electronically signed by: Manohar Elizabeth MD 03/05/2024 05:00 AM CDT Due to temporary technical issues with the PACS/[employer] reporting system, reports are being aspen d by the in-house radiologist without review as a courtesy to ensure prompt reporting the interpreting radiologist is fully responsible for the content of the report. Transcribed Date/Time: 03/05/2024 5:04 AM
--- NOTE | 2024-03-05 05:19 | EDPHYS ---
Physician Documentation [facility] Name: Alfredo Escobar Age: 63 yrs Sex: Male : 1960 Arrival Date: 03/05/2024 Time: 00:29 Bed 19 Private MD: ED Physician El Mckeon HPI: 03/05 01:42 This 63 yrs old Male presents to ER via Wheelchair with complaints of Dizziness, rt Headache, Shortness Of Breath, High Blood Pressure. 01:42 Patient presents to the ED with 30 minutes of a headache, reported lightheadedness as rt well as tremors. Reports an ongoing, chronic abdominal pain. Denies other acute complaints at this time, symptoms are moderate in severity, no other aggravating or elevating factors.. Historical: - Allergies: 00:43 Bactrim; al5 00:43 Iodine; al5 00:43 Keflex; al5 00:43 Latex; al5 00:43 Levaquin; al5 00:43 promethazine HCl; al5 00:43 Toradol; al5 - PMHx: 00:43 Anxiety; Arthritis; Chronic pain; Crohn's; GERD; Hypertensive disorder; Pancreatitis; al5 PTSD; - PSHx: 00:43 eye; hernia; al5 - Immunization history:: Adult Immunizations up to date. - Infectious Disease History:: Denies. - Social history:: Smoking status: Patient denies any tobacco usage or history of. - Family history:: not pertinent. ROS: 01:42 Constitutional: Negative for fever, chills, and weight loss, Cardiovascular: Negative rt for chest pain, palpitations, and edema, Respiratory: Negative for shortness of breath, cough, wheezing, and pleuritic chest pain, 01:42 Skin: Negative for injury, rash, and discoloration, 01:42 Abdomen/GI: Positive for abdominal pain, 01:42 Neuro: Positive for dizziness, headache, Exam: 01:42 Constitutional: This is a well developed, well nourished patient who is awake, alert, rt and in no acute distress. Head/Face: Normocephalic, atraumatic. Chest/axilla: Normal chest wall appearance and motion. Nontender with no deformity. No lesions are appreciated. Cardiovascular: Regular rate and rhythm with a normal S1 and S2. No gallops, murmurs, or rubs. Normal PMI, no JVD. No pulse deficits. Respiratory: Lungs have equal breath sounds bilaterally, clear to auscultation and percussion. No rales, rhonchi or wheezes noted. No increased work of breathing, no retractions or nasal flaring. Skin: Warm, dry with normal turgor. Normal color with no rashes, no lesions, and no evidence of cellulitis. MS/ Extremity: Pulses equal, no cyanosis. Neurovascular intact. Full, normal range of motion. Neuro: Awake and alert, GCS 15, oriented to person, place, time, and situation. Cranial nerves II-XII grossly intact. Motor strength 5/5 in all extremities. Sensory grossly intact. Cerebellar exam normal. Normal gait. 01:42 Abdomen/GI: Mild tenderness diffusely without rebound, guarding, distention, 02:14 ECG was reviewed by the Attending Physician. rt Vital Signs: 00:40 BP 149 / 75; Pulse 79; Resp 18; Temp 98.2; Pulse Ox 99% on R/A; Weight 95.25 kg; Height al5 5 ft. 10 in. ; Pain 0/10; 00:58 BP 166 / 68; Pulse 68; Resp 17; Temp 98(O); Pulse Ox 97% ; rg5 01:30 BP 145 / 68; Pulse 60; Resp 19; Pulse Ox 99% on R/A; Pain 6/10; rg5 02:25 BP 126 / 66; Pulse 53; Resp 17; Pulse Ox 96% on R/A; rg5 03:45 BP 130 / 77; Pulse 61; Resp 17 S; Pulse Ox 96% on R/A; rg5 04:07 BP 130 / 77; Pulse 68; Resp 16; Pulse Ox 97% on R/A; rg5 05:00 BP 127 / 73; Pulse 52; Resp 17; Pulse Ox 97% on R/A; rg5 00:40 Body Mass Index 30.13 (95.25 kg, 177.8 cm) al5 00:40 Pain Scale: Adult al5 01:30 Pain Scale: Adult rg5 MDM: 00:59 Patient medically screened. rt 05:19 Differential diagnosis: Dysrhythmia, anemia, near syncope. Data reviewed: vital signs, rt nurses notes, lab test result(s), EKG, radiologic studies. Consideration of Admission/Observation Escalation of care including admission/observation considered. I considered the following discharge prescriptions or medication management in the emergency department Medications were administered in the Emergency Department. See MAR. Independent interpretation of the following test(s) in the Emergency Department CT Scan: My interpretation is No intracranial hemorrhage seen on interpretation of CT scan images. Care significantly affected by the following chronic conditions: Ulcerative colitis. Counseling: I had a detailed discussion with the patient and/or guardian regarding the historical points, exam findings, and any diagnostic results supporting the discharge/admit diagnosis, lab results, radiology results, the need for outpatient follow up, to return to the emergency department if symptoms worsen or persist or if there are any questions or concerns that arise at home. Response to treatment: the patient's symptoms have resolved after treatment. 03/05 01:09 Order name: Basic Metabolic Panel; Complete Time: 02:02 rt 03/05 01:09 Order name: CBC with Diff; Complete Time: 02:02 rt 03/05 01:09 Order name: LFT's; Complete Time: 02:02 rt 03/05 01:09 Order name: Magnesium; Complete Time: 02:02 rt 03/05 01:09 Order name: Troponin HS; Complete Time: 02:02 rt 03/05 01:28 Order name: Glucose, Ancillary Testing; Complete Time: 02:02 EDMS 03/05 01:09 Order name: CT Head Brain wo Cont rt 03/05 01:09 Order name: CT Aorta for Dissection rt 03/05 01:09 Order name: Cardiac monitoring; Complete Time: 01:25 rt 03/05 01:09 Order name: EKG - Nurse/Tech; Complete Time: 02:43 rt 03/05 01:09 Order name: IV Saline Lock; Complete Time: :25 rt 03/05 01:09 Order name: Labs collected and sent; Complete Time: :25 rt 03/05 01:09 Order name: O2 Per Protocol; Complete Time: :25 rt 03/05 01:09 Order name: O2 Sat Monitoring; Complete Time: :25 rt EC:14 Rate is 59 beats/min. Rhythm is regular, Sinus bradycardia with No ectopy. QRS [place] is rt Normal. AL interval is normal. QRS interval is normal. QT interval is normal. No Q waves. T waves are Normal. No ST changes noted. Interpreted by me. Administered Medications: 01:33 Drug: NS 0.9% IV 1000 ml IV at 1 bolus Per protocol; 1000 mL bolus Route: IV; Rate: 1 rg5 bolus; Site: right antecubital; 02:30 Follow up: IV Status: Completed infusion; IV Intake: 1000ml rg5 Disposition Summary: 03/05/24 05:19 Discharge Ordered Notes: Location: Home rt Problem: new rt Symptoms: are resolved rt Condition: Stable rt Diagnosis - Syncope Near rt Followup: rt - With: Private Physician - When: 2 - 3 days - Reason: Discharge Instructions: - Discharge Summary Sheet rt - Near-Syncope rt Forms: - Medication Reconciliation Form rt - Antibiotic Education rt - Prescription Opioid Use rt - Patient Portal Instructions rt - Leadership Thank You Letter rt Signatures: Dispatcher [employer] EDMS El Mckeon MD MD rt Hector Ramirez RN RN rg5 Sarah Bolden RN RN al5 Corrections: (The following items were deleted from the chart) 01:10 01:09 Head Brain Wo Cont+CT.RAD.BRZ ordered. EDMS EDMS 01:10 01:10 Angio Aorta For Dissection+CT.RAD.BRZ ordered. EDMS EDMS
--- NOTE | 2024-03-05 05:19 | ER ---
Nurse's Notes [facility] Name: Alfredo Escobar Age: 63 yrs Sex: Male : 1960 Arrival Date: 03/05/2024 Time: 00:29 Bed 19 Private MD: Diagnosis: Syncope Near Presentation: 03/05 00:40 Chief complaint: Patient states: c/o dizziness, headache, weakness bilaterally, off al5 balance starting about 30 minutes ago. Coronavirus screen: At this time, the client does not indicate any symptoms associated with coronavirus-19. Ebola Screen: No symptoms or risks identified at this time. Initial Sepsis Screen: Does the patient meet any 2 criteria? No. Patient's initial sepsis screen is negative. Does the patient have a suspected source of infection? No. Patient's initial sepsis screen is negative. Risk Assessment: Do you want to hurt yourself or someone else? Patient reports no desire to harm self or others. Onset of symptoms was March 05, 2024. 00:40 Method Of Arrival: Wheelchair al5 00:40 Acuity: BUCKY 3 al5 Triage Assessment: 00:43 Headache History: Denies prior headaches. General: Appears in no apparent distress. al5 Behavior is calm, cooperative. Pain: Complains of pain in face Pain currently is 0 out of 10 on a pain scale. Pain began 1 hour ago. Also complains of dizziness. EENT: No signs and/or symptoms were reported regarding the EENT system. Neuro: Level of Consciousness is awake, alert, obeys commands, Oriented to person, place, time, situation. Cardiovascular: Capillary refill < 3 seconds Patient's skin is warm and dry. Respiratory: Airway is patent Respiratory effort is even, unlabored, Respiratory pattern is regular, symmetrical. GI: No signs and/or symptoms were reported involving the gastrointestinal system. : No signs and/or symptoms were reported regarding the genitourinary system. Derm: Skin is intact, Skin is pink, warm \T\ dry. normal. Musculoskeletal: No signs and/or symptoms reported regarding the musculoskeletal system. Historical: - Allergies: 00:43 Bactrim; al5 00:43 Iodine; al5 00:43 Keflex; al5 00:43 Latex; al5 00:43 Levaquin; al5 00:43 promethazine HCl; al5 00:43 Toradol; al5 - PMHx: 00:43 Anxiety; Arthritis; Chronic pain; Crohn's; GERD; Hypertensive disorder; Pancreatitis; al5 PTSD; - PSHx: 00:43 eye; hernia; al5 - Immunization history:: Adult Immunizations up to date. - Infectious Disease History:: Denies. - Social history:: Smoking status: Patient denies any tobacco usage or history of. - Family history:: not pertinent. Screenin:39 Nutritional screening: No deficits noted. rg5 00:40 [facility] ED Fall Risk Assessment (Adult) History of falling in the last 3 months, rg5 including since admission No falls in past 3 months (0 pts) Confusion or Disorientation No (0 pts) Intoxicated or Sedated No (0 pts) Impaired Gait No (0 pts) Mobility Assist Device Used No (0 pt) Altered Elimination No (0 pt) Score/Fall Risk Level 0 - 2 = Low Risk Oriented to surroundings, Maintained a safe environment, Hourly rounding (assess needs \T\ fall precautionary measures) done. 00:40 Abuse screen: Denies threats or abuse. Tuberculosis screening: No symptoms or risk rg5 factors identified. Assessment: 00:39 Pain: Complains of pain in headache Pain currently is 6 out of 10 on a pain scale. rg5 Quality of pain is described as aching, Pain began 1 hour ago. Neuro: Reports dizziness, headache in right frontal area. 00:40 Reassessment: see triage assessment. rg5 01:30 Reassessment: No changes from previously documented assessment. Patient and/or family rg5 updated on plan of care and expected duration. Pain level reassessed. Patient is alert, oriented x 3, equal unlabored respirations, skin warm/dry/pink. 02:25 Reassessment: Patient and/or family updated on plan of care and expected duration. Pain rg5 level reassessed. Patient is alert, oriented x 3, equal unlabored respirations, skin warm/dry/pink. Patient states symptoms have improved. 03:36 Reassessment: Patient and/or family updated on plan of care and expected duration. Pain rg5 level reassessed. Patient is alert, oriented x 3, equal unlabored respirations, skin warm/dry/pink. 04:26 Reassessment: Patient and/or family updated on plan of care and expected duration. Pain rg5 level reassessed. Patient is alert, oriented x 3, equal unlabored respirations, skin warm/dry/pink. Patient states feeling better. Patient states symptoms have improved. 05:00 Reassessment: Patient and/or family updated on plan of care and expected duration. Pain rg5 level reassessed. Patient is alert, oriented x 3, equal unlabored respirations, skin warm/dry/pink. Patient states feeling better. Vital Signs: 00:40 BP 149 / 75; Pulse 79; Resp 18; Temp 98.2; Pulse Ox 99% on R/A; Weight 95.25 kg; Height al5 5 ft. 10 in. ; Pain 0/10; 00:58 BP 166 / 68; Pulse 68; Resp 17; Temp 98(O); Pulse Ox 97% ; rg5 01:30 BP 145 / 68; Pulse 60; Resp 19; Pulse Ox 99% on R/A; Pain 6/10; rg5 02:25 BP 126 / 66; Pulse 53; Resp 17; Pulse Ox 96% on R/A; rg5 03:45 BP 130 / 77; Pulse 61; Resp 17 S; Pulse Ox 96% on R/A; rg5 04:07 BP 130 / 77; Pulse 68; Resp 16; Pulse Ox 97% on R/A; rg5 05:00 BP 127 / 73; Pulse 52; Resp 17; Pulse Ox 97% on R/A; rg5 00:40 Body Mass Index 30.13 (95.25 kg, 177.8 cm) al5 00:40 Pain Scale: Adult al5 01:30 Pain Scale: Adult rg5 ED Course: 00:31 Patient arrived in ED. im 00:39 Door closed. Noise minimized. Warm blanket given. Assisted with urinal. rg5 00:40 Patient has correct armband on for positive identification. Bed in low position. Call rg5 light in reach. Side rails up X 1. 00:40 No provider procedures requiring assistance completed. Inserted saline lock: 20 gauge rg5 in right antecubital area, using aseptic technique. Blood collected. Flushed with 10 mL NS. 00:43 Triage completed. al5 00:44 Arm band placed on right wrist. Patient placed in an exam room, in a wheelchair. al5 00:46 El Mckeon MD is Attending Physician. rt 00:50 Ramirez, Hector, RN is Primary Nurse. rg5 03:08 CT Head Brain wo Cont In Process Unspecified. EDMS 03:08 CT Aorta for Dissection In Process Unspecified. EDMS 04:23 Resting quietly. Appears to be sleeping. Awaiting radiology results. rg5 05:37 Provided Education on: post er care. rg5 05:37 IV discontinued, bleeding controlled, No redness/swelling at site. Pressure dressing rg5 applied. Administered Medications: 01:33 Drug: NS 0.9% IV 1000 ml IV at 1 bolus Per protocol; 1000 mL bolus Route: IV; Rate: 1 rg5 bolus; Site: right antecubital; 02:30 Follow up: IV Status: Completed infusion; IV Intake: 1000ml rg5 Medication: 01:00 VIS not applicable for this client. rg5 Intake: 02:30 IV: 1000ml; Total: 1000ml. rg5 Outcome: 05:19 Discharge ordered by . rt 05:37 Discharged to home ambulatory, rg5 05:37 Condition: stable 05:37 Discharge instructions given to patient, 05:42 Patient left the ED. rg5 Signatures: Dispatcher [employer] El Rosenberg MD MD rt Kasey Hollingsworth Hector Ramirez, RN RN rg5 Sarah Bolden RN RN al5
--- NOTE | 2024-03-05 05:27 | RAD REPORT ---
PROCEDURE: CT Head Without Intravenous Contrast CLINICAL INDICATION: The patient is 63 years old and is Male; HEADACHE Bed Name: 19 TECHNIQUE: Axial computed tomography images of the head/brain without intravenous contrast. Sagittal and coron al reformatted images were created and reviewed. This CT exam was performed using one or more of the following dose reduction techniques: automated exposure control, adjustment of the mA and/or kV according to patient size, and/or use of iterative reconstruction technique. COMPARISON: 03/24/2022 CT head without contrast FINDINGS: BRAIN: No extra-axial fluid collection. No intracranial hemorrhage. No transtentorial herniation. No focal black-white matter differentiation abnormality. MIDLINE SHIFT: No midline shift. VENTRICLES: See above. BONES/JOINTS: No fracture of the calvarium or visualized facial bones. SOFT TISSUES: Unremarkable SINUSES: No masses, bony erosion or evidence of acute sinusitis. MASTOID AIR CELLS: Unremarkable as visualized. No mastoid effusion. NASAL CAVITY/SEPTUM: Leftward anterior nasal septal deviation. IMPRESSION: No acute intracranial abnormality. No fracture of the calvarium or visualized facial bones. Electronically signed by: Manohar Elizabeth MD 03/05/2024 05:13 AM CDT Due to temporary technical issues with the PACS/[employer] reporting system, reports are being aspen d by the in-house radiologist without review as a courtesy to ensure prompt reporting the interpreting radiologist is fully responsible for the content of the report. Transcribed Date/Time: 03/05/2024 5:27 AM
[2024-03-05 06:02] VITALS: TEMP 98
[2024-03-05 06:11] VITALS: O2SAT 97
[2024-03-05 06:12] VITALS: BP 127/73
--- NOTE | 2024-03-06 13:01 | EKG ---
Test Date: 2024-03-05 Test Time: 02:07:02 Electrotype Finisher: ROLAND MEASUREMENT RESULTS: Intervals: Rate: 59 IA: 152 QRSD: 88 QT: 418 QTc: 413 [place]: P: 53 IA: 152 QRS: 7 T: 15 INTERPRETIVE STATEMENTS: Sinus bradycardia with sinus arrhythmia Otherwise normal ECG Compared to ECG 02/08/2024 00:03:32 Sinus rhythm no longer present Electronically Signed On 03-06-24 12:55:34 CDT by Nils Haq
== END 2024-03-05 05:42 | disposition home or self-care (01) ==
LOC: ER 00:29
DX: R55 Syncope and collapse (principal); R51.9 Headache, unspecified
CPT/HCPCS: 93005; 85025; 80048; 36415; 83735; 82947; 80076; 84484; 70450; 71275; 74175; 96360; 99284; Q9967; J7030